=== PATIENT | male | born 1955 | race Caucasian/White ===

== ENCOUNTER 2019-11-25 11:04 | Outpatient (CLI) | payer MEDICARE, MEDICAID, SELFPAY ==
--- NOTE | ~2019-11-25 | CT_ITS ---
EXAMINATION: CT lung screening DATE: 11/25/2019 11:37 INDICATION: Nicotine dependence TECHNIQUE: Computed tomography (CT) of the chest was performed without intravenous contrast. The dose -length product was 112.60 mGy-cm. Automated exposure control and iterative reconstruction technique were employed. COMPARISON: Comparison to multiple prior studies sequentially, with oldest reviewed study dated 10/2016. FINDINGS: There has been progression of interstitial infiltrates of the lower lobes with areas of int erlobular septal thickening. Calcified granulomas clustered in the right lower lobe. There are additi onal areas of interstitial changes peripherally in the upper lobes anteriorly. There is focal parench ymal scarring in the right apex posterior laterally. There is a 3 mm nodule stable in the right upper lobe near the apex. No endobronchial lesions. No thoracic lymphadenopathy. Heart size is normal. The re is atherosclerosis of the aorta and coronary arteries. No significant pleural or pericardial effus ion. IMPRESSION: 1. Lung-RADS category 2: Benign appearance or behavior. Continue annual screening with noncontrast lo w-dose chest CT in 12 months. Reviewed, dictated and finalized at location B. IMPRESSION: 1. Lung-RADS category 2: Benign appearance or behavior. Continue annual screeni ng with noncontrast low-dose chest CT in 12 months.
== END 2019-11-25 11:05 | disposition home or self-care (01) ==
PROVIDERS: PCP Emergency Medicine; Visit Provider Emergency Medicine
DX: F17.210 Nicotine dependence, cigarettes, uncomplicated (principal)
CPT/HCPCS: G0297

== ENCOUNTER 2020-09-14 13:04 | Inpatient (IN) | payer MEDICARE, MEDICAID, SELFPAY ==
[2020-09-14] VITALS (14 sets, daily range): BP systolic 117–161; BP diastolic 58–85; PULSE 45–73; RESP 16–26; TEMP 36.1–36.5; O2SAT 99–100; BMI 25.2
--- NOTE | ~2020-09-14 | CT_ITS ---
EXAMINATION: CT abdomen pelvis wo con EXAM DATE: 09/14/2020 15:16 INDICATION: Abdominal pain, vomiting. Syncope. Symptoms for days. TECHNIQUE: Spiral CT of the abdomen and pelvis was performed without contrast. Axial, coronal and s agittal images of the abdomen and pelvis were reviewed. The dose-length product (DLP) for this exami nation was 546.90 mGy-cm. The exposure was tailored according to patient size (auto mA exposure cont rol), and iterative reconstruction (ASIR) was used as additional dose reduction technique. Comparison is made to prior examination from 08/18/2017. FINDINGS: The liver, spleen, adrenal glands and pancreas are unremarkable. Gallbladder is unremarkab le. No biliary obstruction. There is a left renal cyst measuring 3.7 cm. No nephrolithiasis or hydr onephrosis. Prostate is unremarkable. The bladder is undistended at time of imaging. There is no r etroperitoneal or pelvic lymphadenopathy. There is mild to moderate scattered arteriosclerotic dise ase. The appendix is normal. There is moderate sigmoid colonic diverticulosis. There is no adjacent infla mmatory change to suggest diverticulitis. There is small sliding gastroesophageal hiatal hernia. Th ere is expected amount of colonic stool. No free intraperitoneal gas. The heart is normal in size . There are no pericardial or pleural effusions. The lung bases are unremarkable. There are no ost eoblastic or osteolytic lesions identified. IMPRESSION: 1. No acute intra-abdominal findings. 2. Moderate sigmoid predominant colonic diverticulosis. Reviewed, dictated and finalized at location B.
--- NOTE | ~2020-09-14 | CT_ITS ---
EXAMINATION: CT brain wo con DATE: 09/14/2020 15:16 INDICATION: Syncope TECHNIQUE: Computed tomography (CT) of the head was performed without intravenous contrast. The dose- length product was 605.33 mGy-cm. Automated exposure control and iterative reconstruction technique w ere employed. COMPARISON: CT dated 08/18/2017 FINDINGS: No acute intracranial hemorrhage, infarction, mass or mass effect. No ventriculomegaly or m idline shift. Basilar cisterns are patent. There is intracranial atherosclerosis. There is an atrophi c densely calcified right globe. Paranasal sinuses and mastoids are pneumatized. No depressed skull f ractures. IMPRESSION: 1. No acute intracranial abnormality. Reviewed, dictated and finalized at location A.
--- NOTE | 2020-09-14 13:17 | ECG_ITS ---
Measurements Intervals [place] Rate: 68 P: 62 KS: 155 QRS: -46 QRSD: 114 T: 57 QT: 447 QTc: 478 Interpretive Statements SINUS RHYTHM LEFT AXIS DEVIATION INTRAVENTRICULAR CONDUCTION DELAY BORDERLINE ST ABNORMALITY- ANTEROLAT/INF LEADS BASELINE ARTIFACT- I, II, III, AVR, AVL, AVF, V2-V6 BORDERLINE ECG Electronically Signed On 09-14-2020 17:12:38 CDT by Shar Mendoza D.O.
--- NOTE | 2020-09-14 13:40 | PC.NURSE ---
pt given urinal to provide urine sample
[2020-09-14 13:54] LABS: Basophils Percent Auto 0.1 % (0.2-1.2); Hematocrit 43.6 % (42.0-52.0); Hemoglobin 15.7 g/dL (14.0-18.0); Immature Granulocyte Absolute 0.06 K/mm3 (0.00-0.031); Immature Granulocyte Percent A 0.4 % (0-0.5); Lymphocytes Absolute Auto 1.38 K/mm3 (0.9-3.2); Lymphocytes Percent Auto 9.9 % (18.3-44.2); Mean Corpuscular Hemoglobin 33.6 pg (26-34); Mean Corpuscular Volume 93.4 fl (80-100); Mean Platelet Volume 9.7 fl (7.4-10.4); Monocytes Absolute Auto 2.1 K/mm3 (0.1-0.6); Monocytes Percent Auto 14.6 % (2.6-8.5); Neutrophils Absolute Auto 10.5 K/mm3 (1.3-6.7); Platelet Count Result 299 k/mm3 (150-375); Red Blood Count 4.67 M/mm3 (4.6-6.20); Red Cell Distribution Width 12.7 % (11.5-14.5)
[2020-09-14 14:04] LABS: Add Urine Microscopic? YES; Alanine Aminotransferase 20 U/L (4-50); Albumin Level 4.9 g/dL (3.5-5.1); Alkaline Phosphatase 116 U/L (38-126); Anion Gap 18 mmol/L (8-16); Appearance Urine Cloudy (Clear); Aspartate Amino Transferase 48 U/L (17-59); Bilirubin Urine Negative (Negative); Bilirubin,Total 1.4 mg/dL (0.2-1.3); Blood Urea Nitrogen 43 mg/dL (9-20); Blood Urine Negative (Negative); Calcium 10.4 mg/dL (8.4-10.2); Carbon Dioxide 21 mmol/L (22-30); Chloride 101 mmol/L (98-107); Color Urine Amber (Yellow); Estimated CRCL calculation 24 ml/min; Estimated Glomerular Filt Rate 24; Glucose 147 mg/dL (75-110); Glucose Urine UA 1+ mg/dL (Negative); Ketones Urine Negative (Negative); Leukocyte Esterase Ur 1+ LEU/UL (Negative); Mucus Urine Rare /lpf; Nitrate Urine Negative (Negative); Protein Urine 2+ mg/dL (Negative); RBC Urine 0-2 /hpf (0-2); Sodium 140 mmol/L (137-145); Specific Grav Ur 1.027 (1.001-1.035); Squamous Epithelial Cell Urine Rare /hpf (Few); WBC Urine 0-3 /hpf
--- NOTE | 2020-09-14 14:32 | PC.NURSE ---
Pt had 100 cc emesis, clear liquid with brown specs. Dr Ivy at bedside, aware.
--- NOTE | 2020-09-14 14:44 | ED.GENADULT ---
HPI - General Adult General Chief complaint: Weakness Stated complaint: vomiting Time Seen by Provider: 09/14/20 13:35 Source: patient History of Present Illness HPI narrative: Patient is a 65 y/o male complaining of nausea and vomiting since 3 days ago. He states that he vomited more than 10 times during last 24 hours. He vomits food and liquid. There is no known alleviating or exacerbating factor. He states that these symptoms started after eating some Taco on Sunday. He has some mild abdominal pain, but no diarrhea. He also passed out this morning. states that when he got out of shower this morning, he became unresponsives and was falling down. She caught him before he fell to the ground. Related Data Home Medications Medication Instructions Recorded Confirmed alprazolam 1 mg PO DAILY 09/14/20 09/14/20 aspirin-calcium carbonate [Aspirin 1 tablet PO DAILY 09/14/20 09/14/20 Regimen Linh/Calcium] atorvastatin 40 mg PO DAILY 09/14/20 09/14/20 calcium phos,dibas-vitamin D3 tablet PO 09/14/20 09/14/20 [Vitamin D (with calcium)] carvedilol 3.125 mg PO BID 09/14/20 09/14/20 clopidogrel 75 mg PO DAILY 09/14/20 09/14/20 hydrocodone-acetaminophen 1 tablet PO HS PRN 09/14/20 09/14/20 levothyroxine 88 mcg PO DAILY 09/14/20 09/14/20 lisinopril 10 mg PO DAILY 09/14/20 09/14/20 pantoprazole 20 mg PO QAM 09/14/20 09/14/20 sildenafil 50 mg PO DAILY 09/14/20 09/14/20 Allergies Allergy/AdvReac Type Severity Reaction Status Date / Time propoxyphene Allergy Unknown Unknown Verified 09/14/20 14:56 Review of Systems Constitutional: Constitutional: Denies chills, Denies fever(s), Denies headache(s) and Denies weakness Eyes: Eyes: Denies blurry vision ENT: Denies headache(s) and Denies neck pain Cardiovascular: Cardiovascular: Denies chest pain and Denies dyspnea Respiratory: Respiratory: Denies cough and Denies dyspnea Gastrointestinal: Gastrointestinal: Reports abdominal pain, Denies diarrhea, Reports nausea and Reports vomiting Genitourinary: Genitourinary: Denies hematuria and Denies dysuria Musculoskeletal: Musculoskeletal: Denies back pain and Denies neck pain Neurologic: Reports syncope, Denies headache(s) and Denies weakness [facility] Social History Social History Gender identity (if verbalized by the patient): Male Exam Const: General: no acute distress and well developed Orientation/consciousness: oriented to person, oriented to place, oriented to time and patient oriented x3 HENMT: Head: normocephalic Ears: external ears normal General nose exam: Normal external nose present Eyes: General: appearance normal, both eyes and all related structures Conjunctivae: conjunctivae normal Neck: Neck: normal visual inspection and full ROM Chest: Chest palpation & inspection: normal inspection of the chest and no tenderness Resp: Effort & Inspection: normal respiratory effort Auscultation: clear to auscultation bilaterally Cardio: Rate: regular rate Rhythm: regular rhythm GI: GI Palp: No abdominal tenderness and Yes Soft to palpation Skin: General skin exam: normal color and turgor normal Neuro: General: oriented to person, oriented to place, oriented to time and patient oriented x3 Cognition (Neuro): normal cognition Extrem: General: normal to inspection, full ROM and no pedal edema Psych: Appearance: grossly normal Mental Status: mental status grossly normal Affect: normal affect Course Consultations Consultation #1: Discussed with PRAVIN Daly, who agrees to admit. Date: 09/14/20 Time: 17:48 Vital Signs Vital signs: Vital Signs Temperature 36.5 C 09/14/20 13:12 Pulse Rate 71 09/14/20 13:12 Respiratory Rate 18 09/14/20 13:12 Blood Pressure 135/80 09/14/20 13:12 Pulse Oximetry 100 09/14/20 13:12 Temperature 36.5 C 09/14/20 13:12 Pulse Rate 68 09/14/20 17:01 Respiratory Rate 20 09/14/20 17:01 Blood Pressure 150/
[2020-09-14] MEDS: SODIUM CHLORIDE 0.9% IV 1,000 ML 999 ML IV CONT (15:23)
[2020-09-14] MEDS: ONDANSETRON INJ 4 MG/2 ML VIAL IV PUSH (15:24)
[2020-09-14] MEDS: CYCLOBENZAPRINE HCL 10 MG TABLET PO (16:00)
[2020-09-14] MEDS: METOCLOPRAMIDE HCL INJ 10 MG/2 ML VIAL IV PUSH (17:36)
[2020-09-14] MEDS: POTASSIUM CHLORIDE 20 MEQ TABLET PO (18:14)
--- NOTE | 2020-09-14 18:46 | ADMGEN ---
This patient, Bhanu Álvarez, was admitted to Medical Room 247-. Patient/family oriented to hospital policies and general routines including ID bracelet, bed and alarms, visiting hours, pain management, procedures, bathroom and other care routines, personal items, smoking policy, room service/diet, and visiting hours. Information on how to activate the Rapid Response Team has been discussed. Patient/Family are encouraged to report perceived risks to care and to ask questions if they do not understand what they are told or what they should do.
--- NOTE | 2020-09-14 22:03 | PM.IMHP ---
H&P: HPI History of Present Illness Date/Time: 09/14/20 22:03 Chief Complaint: nausea and vomiting Narrative: 65-year-old male with past medical history of coronary artery disease, hypertension, hypothyroidism and COPD presented to the ER via [facility] due to weakness and nausea vomiting for 4 days. the patient reports that his family was out of town so he went and bought some tacos at a fast food restaurant. Couple of hours after eating tacos several days ago he began having nausea and vomiting . He reports that his 1st couple of episodes of emesis were dark in color. He denies any hematemesis or coffee-ground emesis. He reports some mild generalized abdominal tenderness to palpation but he relates this more to his multiple episodes of vomiting. He denies any diarrhea or constipation. He has had numerous episodes of vomiting and was having dry heaves. He was unable to take his home medications due to his vomiting. The patient was taking a shower this morning and had a syncopal event. She caught him before he fell to the ground. EMS reported that the patient's blood pressure was low when they arrived to the scene. The 10th patient arrived to the ER his blood pressure had normalized after 500 mL of fluid. He denies any fevers or chills. He reports that his nausea improved with Reglan and Zofran. But is now returned. He is requesting something for sleep. Review of Systems Review of Systems: Narrative: 12 systems were reviewed with pertinent positives and negatives per HPI. Except as documented in the HPI, all other systems were reviewed and are negative. [facility] Past Medical History Medical History (Updated 09/14/20 @ 22:12 by Lashawn Murray DO) Anxiety and depression Bladder cancer Continuous tobacco abuse Coronary artery disease Essential hypertension Hepatitis C virus infection resolved after antiviral drug therapy Hyperlipidemia Hypothyroidism Surgical History Surgical History (Updated 09/14/20 @ 22:12 by Lashawn Murray DO) Abnormal cystoscopy x8 History of cardiac catheterization with [address] Gresham Right eye trauma Family History Family History Mother Acute myocardial infarction Leukemia Father Colon cancer Sibling Heart problem Social History Social History Smoking packs per day: 1 Smoking cigarettes per day: 20.0 Years smoked: 58 Smoking pack-years: 58.00 Smoking status: Current every day smoker Tobacco type: cigarettes and cigars Alcohol intake: never Substance use: current Substance use type: marijuana Other substance usage details: daily-smoke Spiritual care concerns: No Meds Home Medications and Allergies Home Medications Medication Instructions Recorded Confirmed Type alprazolam [Xanax] 1 mg PO DAILY 09/14/20 09/14/20 History aspirin-calcium carbonate [Aspirin 1 tablet PO DAILY 09/14/20 09/14/20 History Regimen Linh/Calcium] atorvastatin [Lipitor] 40 mg PO DAILY 09/14/20 09/14/20 History calcium phos,dibas-vitamin D3 50,000 tablet PO DAILY 09/14/20 09/14/20 History [Vitamin D (with calcium)] carvedilol [Coreg] 3.125 mg PO BID 09/14/20 09/14/20 History clopidogrel [Plavix] 75 mg PO DAILY 09/14/20 09/14/20 History hydrocodone-acetaminophen 1 tablet PO HS PRN 09/14/20 09/14/20 History levothyroxine [Synthroid] 88 mcg PO DAILY 09/14/20 09/14/20 History lisinopril [Zestril] 10 mg PO DAILY 09/14/20 09/14/20 History pantoprazole [Protonix] 20 mg PO QAM 09/14/20 09/14/20 History sildenafil 50 mg PO DAILY 09/14/20 09/14/20 History Allergies Allergy/AdvReac Type Severity Reaction Status Date / Time propoxyphene Allergy Intermediate Hives Verified 09/14/20 18:38 Vital Signs Vital Signs - 24 hr 09/14/20 13:12 09/14/20 13:15 09/14/20 14:45 Temperature 97.7 F Pulse Rate 71 73 62 Respiratory Rate 18
[2020-09-14] MEDS: PROMETHAZINE HCL 25 MG/ML AMPUL IM (23:02)
[2020-09-14] MEDS: carvediloL 3.125 MG TABLET PO (23:03)
[2020-09-14] MEDS: SODIUM CHLORIDE 0.9% IV 1,000 ML 100 ML IV CONT (23:04)
[2020-09-15] VITALS (15 sets, daily range): BP systolic 126–166; BP diastolic 60–116; PULSE 44–73; RESP 16–18; TEMP 36–36.8; O2SAT 98–100; BMI 25.2
[2020-09-15 05:39] LABS: Hematocrit 43.2 % (42.0-52.0); Hemoglobin 14.7 g/dL (14.0-18.0); Mean Corpuscular Hemoglobin 33.3 pg (26-34); Mean Corpuscular Volume 97.7 fl (80-100); Mean Platelet Volume 9.7 fl (7.4-10.4); Platelet Count Result 233 k/mm3 (150-375); Red Blood Count 4.42 M/mm3 (4.6-6.20); Red Cell Distribution Width 12.5 % (11.5-14.5); White Blood Count 11.6 K/mm3 (4.5-10.0)
[2020-09-15 05:59] LABS: Albumin Level 4.1 g/dL (3.5-5.1); Anion Gap 14 mmol/L (8-16); Blood Urea Nitrogen 33 mg/dL (9-20); Calcium 9.1 mg/dL (8.4-10.2); Carbon Dioxide 26 mmol/L (22-30); Chloride 101 mmol/L (98-107); Estimated CRCL calculation 45 ml/min; Estimated Glomerular Filt Rate 51; Glucose 128 mg/dL (75-110); Phosphorus 3.5 mg/dL (2.5-4.5); Potassium 3.3 mmol/L (3.4-5.0); Sodium 141 mmol/L (137-145)
[2020-09-15] MEDS: LEVOTHYROXINE SODIUM 88 MCG TABLET PO (06:07)
[2020-09-15 08:26] LABS: Magnesium 2.1 mg/dL (1.6-2.3)
[2020-09-15] MEDS: PANTOPRAZOLE SODIUM IV 40 MG VIAL IV PUSH (09:35)
[2020-09-15] MEDS: ENOXAPARIN 30 MG/0.3 ML SYRINGE SUB-Q (09:35)
[2020-09-15] MEDS: CALCIUM CARBONATE (TUMS) 500 MG (200 MG ELEMENTAL) PO (09:35)
[2020-09-15] MEDS: SODIUM CHLORIDE 0.9% IV 1,000 ML 100 ML IV CONT ×2 (10:15→22:05)
[2020-09-15] MEDS: ASPIRIN 81 MG CHEWABLE TABLET PO (10:16)
[2020-09-15] MEDS: POTASSIUM CHLORIDE 20 MEQ TABLET 40 MEQ PO (10:17)
[2020-09-15] MEDS: CLOPIDOGREL BISULFATE 75 MG TABLET PO (10:17)
[2020-09-15] MEDS: ATORVASTATIN 40 MG TABLET PO (10:17)
--- NOTE | 2020-09-15 12:07 | PCNSR ---
On 09/15/20, the student, Talya Branham, provided care and completed [facility] documentation on this patient. I have reviewed the student's documentation and agree with the findings.
--- NOTE | 2020-09-15 15:55 | PM.IMPN ---
Progress Note: A&P Assessment and Plan (1) DWIGHT (acute kidney injury): Code(s): N17.9 - Acute kidney failure, unspecified Status: Acute Assessment and Plan: patient is a 65-year-old man with a history of coronary artery disease, hypertension, hypothyroidism and COPD presented to the ER via [facility] due to weakness and nausea vomiting for 4 days and prior to arrival he was in the shower when he felt dizzy and was helped out of the shower by his significant other. Patient denies syncopal episode. he came to the ER for further evaluation and workup. Initial vitals showed he was afebrile, non tachycardic, respiratory rate 18, blood pressure 135/80, pulse ox 100% on room air. Initial labs showed leukocytosis at 14,000, elevated neutrophils at 75%. Hypokalemia at 3.0, DWIGHT with Cr 2.7, BUN 43, elevated calcium showing dehydration. UA not suggesting any type of infection. CT head shows no acute intracranial abnormality. CT abdomen pelvis showed no acute intra-abdominal findings. the patient was admitted into the hospital for dehydration DWIGHT and started on IV fluids. Likely due to hypovolemia / dehydration. Will hold the patient's home lisinopril Due to DWIGHT. Monitor urine output closely. Repeat renal function panel in a.m.. (2) Hypokalemia: Code(s): E87.6 - Hypokalemia Status: Acute Assessment and Plan: potassium still low at 3.3, replenished. Will repeat potassium level in a.m.. (3) Syncope: Qualifiers: Syncope type: unspecified Qualified Code(s): R55 - Syncope and collapse Code(s): R55 - Syncope and collapse Status: Acute Assessment and Plan: likely due to hypovolemia. The patient was found to be orthostatic with a blood pressure of 165/68 laying, 160/116 sitting, and dropped to 126/73 when standing. Will continue IV fluid hydration and recheck orthostatics in the morning. (4) Dehydration: Code(s): E86.0 - Dehydration Status: Acute Assessment and Plan: See dwight Time Spent With Patient Time with patient: 25 - 35 minutes Subjective Date/time seen: 09/15/20 15:55 Interval history: Date of service 09/15/2020: the patient is upset because he has not gotten his breakfast yet. He denies any more nausea, vomiting or abdominal pain at this time. He is feeling slightly better but feels fatigued. He states prior to arrival he became dizzy in the shower, denies any syncopal episode at that time, palpitations. He denies any more lightheadedness or dizziness today. Denies any chest pain, shortness of breath, cough, fever, chills, leg swelling, calf pain, or any other symptoms at this time. Review of Systems Review of Systems: All systems reviewed & are unremarkable except as noted in HPI and below Exam Narrative: Exam Narrative: General: 65-year-old man laying flat in bed, watching TV. Appears comfortable. In no acute distress. Skin: No jaundice or cyanosis. Good skin turgor. Neck: Full range of motion. Supple. Respiratory: Lungs are clear to auscultation bilaterally. No bony chest wall tenderness. Cardiovascular: The heart has a regular rate and rhythm without murmur. Lower extremities: No lower extremity edema. Distal pulses are easily palpated. No calf tenderness to palpation. Gastrointestinal: The abdomen is soft, nontender and nondistended with active bowel sounds. Psychiatric: agitated. Neurologic: Moving around in bed without any issues. No focal deficits. Speech is clear. No facial drooping. Objective Data Vital Signs Vital Signs: Vital Signs - 24 hr 09/14/20 16:30 09/14/20 16:46 09/14/20 17:01 Temperature Pulse Rate 66 62 68 Respiratory Rate 23 H 22 H 20 Blood Pressure 117/61 138/71 150/83 H Pulse Oximetry 100 100 100 09/14/20 17:18 09/14/20 17:31 09/14/20 18:01 Temperature Pulse Rate 64 45 L 68 Respiratory Rate 25 H 18 24 H Blood Pressure 161/85 H 160/58 H 132/66
[2020-09-15] MEDS: ACETAMINOPHEN 325 MG TABLET 650 MG PO (22:12)
[2020-09-16] VITALS (9 sets, daily range): BP systolic 134–166; BP diastolic 70–91; PULSE 44–68; RESP 16–18; TEMP 36.3–36.4; O2SAT 98–99
[2020-09-16] MEDS: ONDANSETRON INJ 4 MG/2 ML VIAL IV PUSH (02:43)
[2020-09-16 06:06] LABS: Albumin Level 3.4 g/dL (3.5-5.1); Anion Gap 9 mmol/L (8-16); Blood Urea Nitrogen 18 mg/dL (9-20); Calcium 8.5 mg/dL (8.4-10.2); Carbon Dioxide 23 mmol/L (22-30); Chloride 105 mmol/L (98-107); Estimated CRCL calculation 77 ml/min; Estimated Glomerular Filt Rate > 60; Glucose 109 mg/dL (75-110); Phosphorus 2.6 mg/dL (2.5-4.5); Potassium 3.7 mmol/L (3.4-5.0); Sodium 137 mmol/L (137-145)
[2020-09-16] MEDS: LEVOTHYROXINE SODIUM 88 MCG TABLET PO (06:44)
[2020-09-16] MEDS: CALCIUM CARBONATE (TUMS) 500 MG (200 MG ELEMENTAL) PO (09:41)
[2020-09-16] MEDS: ASPIRIN 81 MG CHEWABLE TABLET PO (09:41)
[2020-09-16] MEDS: ATORVASTATIN 40 MG TABLET PO (09:42)
[2020-09-16] MEDS: PANTOPRAZOLE SODIUM IV 40 MG VIAL IV PUSH (09:42)
[2020-09-16] MEDS: CLOPIDOGREL BISULFATE 75 MG TABLET PO (09:42)
[2020-09-16] MEDS: ENOXAPARIN 30 MG/0.3 ML SYRINGE SUB-Q (09:42)
--- NOTE | 2020-09-16 11:52 | PM.DS ---
DS: Admitting Diagnosis Admitting Diagnosis Admitting Diagnosis: Syncope DS: Discharge Diagnosis Discharge Diagnosis (1) DWIGHT (acute kidney injury): Code(s): N17.9 - Acute kidney failure, unspecified Status: Acute Assessment and Plan: Patient is a 65-year-old man with a history of coronary artery disease, hypertension, hypothyroidism and COPD presented to the ER via [facility] due to weakness and nausea vomiting for 4 days and prior to arrival he was in the shower when he felt dizzy and was helped out of the shower by his significant other. Patient denies syncopal episode. he came to the ER for further evaluation and workup. Initial vitals showed he was afebrile, non tachycardic, respiratory rate 18, blood pressure 135/80, pulse ox 100% on room air. Initial labs showed leukocytosis at 14,000, elevated neutrophils at 75%. Hypokalemia at 3.0, DWIGHT with Cr 2.7, BUN 43, elevated calcium showing dehydration. UA not suggesting any type of infection. CT head shows no acute intracranial abnormality. CT abdomen pelvis showed no acute intra-abdominal findings. the patient was admitted into the hospital for dehydration DWIGHT and started on IV fluids. during the patient's hospitalization his creatinine improved from 2.7 down to normal today at 0.8. He is eating and drinking without any issues at this time. His electrolytes are normal. IV fluids were stopped and he is stable for discharge. The patient has been on telemetry during his hospitalization found to be bradycardic between 45-65. we have held the patient's Coreg during his hospitalization and his heart rate continues to be bradycardic at 49 bpm at this point. I talked to Jennifer Walker NP Cardiology who works with his Cardiology which is Dr. Gresham, who recommended that since the patient is stable at this time, normal lightheaded, dizziness or syncopal episodes, he can be discharged to come to their office for a 7 day Holter monitor to monitor his bradycardia, rule out any arrhythmias and monitor her for any lightheadedness or syncopal episodes. She also agreed to hold his Coreg due to his bradycardia at this time. He will need to follow-up in their office in 2 weeks for his Holter monitor results, and they can decide further Workup/treatment at that time. the patient understands and agrees the plan all questions answered. (2) Hypokalemia: Code(s): E87.6 - Hypokalemia Status: Acute Assessment and Plan: potassium normal. (3) Syncope: Qualifiers: Syncope type: unspecified Qualified Code(s): R55 - Syncope and collapse Code(s): R55 - Syncope and collapse Status: Acute Assessment and Plan: likely due to hypovolemia and orthostatic hypotension. The patient was found to be orthostatic with a blood pressure of 165/68 laying, 160/116 sitting, and dropped to 126/73 when standing. Patient is now feeling better. No lightheadedness, dizziness, syncopal episodes. Orthostatics are better today, but he was asymptomatic. patient will be getting a Holter monitor for 7 days with his electric range preparer for further evaluation of his bradycardia and ensure he is not having any issues of syncope or arrhythmia. (4) Dehydration: Code(s): E86.0 - Dehydration Status: Acute Assessment and Plan: See dwight DS: Summary Hospital Course Hospital Course: See above Time Spent with Patient Time attestation: Total time spent providing and/or coordinating discharge services: 42 Exam Narrative: Exam Narrative: General: 65-year-old man laying flat in bed with a towel wrapped around his head, watching TV. Appears comfortable. In no acute distress. Skin: No jaundice or cyanosis. Good skin turgor. Neck: Full range of motion. Supple. Respiratory: Lungs are clear to auscultation bilaterally. No bony chest wall tenderness. Cardiovascular: The heart has a
== END 2020-09-16 12:46 | disposition home or self-care (01) | DRG 684 ==
LOC: ANHED 18:16 → ANH2MED 18:18
PROVIDERS: Internal Medicine; Admitting Provider Internal Medicine; Emergency Provider Emergency Medicine; PCP Emergency Medicine; Visit Provider Physician Assistant
DX: N17.9 Acute kidney failure, unspecified (principal); E87.6 Hypokalemia; I25.10 Atherosclerotic heart disease of native coronary artery without angina pectoris; E03.9 Hypothyroidism, unspecified; J44.9 Chronic obstructive pulmonary disease, unspecified; I10 Essential (primary) hypertension; I95.1 Orthostatic hypotension; E86.0 Dehydration; F41.8 Other specified anxiety disorders; E78.5 Hyperlipidemia, unspecified; Z85.51 Personal history of malignant neoplasm of bladder; Z86.19 Personal history of other infectious and parasitic diseases; Z95.5 Presence of coronary angioplasty implant and graft; F17.210 Nicotine dependence, cigarettes, uncomplicated
CPT/HCPCS: 36415; 70450; 74176; 80053; 80069; 81001; 83735; 85025; 85027; 93005; 96361; 96374; 96375; 99285; A9270; C9113; J1650; J2405; J2550; J2765; J7030

== ENCOUNTER 2020-11-23 08:39 | Outpatient (CLI) | payer MEDICARE, MEDICAID, SELFPAY ==
--- NOTE | ~2020-11-23 | CT_ITS ---
EXAMINATION: CT lung screening DATE: 11/23/2020 09:09 INDICATION: Personal history of nicotine dependence, current smoker with 55 pack year history TECHNIQUE: Computed tomography (CT) of the chest was performed without intravenous contrast. The dose -length product (DLP) was 114.84 mGy-cm. Automated exposure control and iterative reconstruction tech Desigual were employed. COMPARISON: 11/25/2019 FINDINGS: There is a stable 3 mm nodule in the right upper lobe. Mild emphysema is noted. No new pulm onary nodules are identified. Calcified pulmonary nodules and calcified right hilar and mediastinal l ymph nodes are consistent with old granulomatous disease. Subpleural reticular and groundglass opacit ies with a lower lung zone predominance could reflect chronic interstitial lung disease. There is no pleural effusion or pneumothorax. No pathologically enlarged thoracic lymph nodes are identified. The heart size is normal. Punctate calcifications in an otherwise normal spleen likely represent healed granulomatous disease. IMPRESSION: 1. Lung-RADS category 2: Benign appearance or behavior. Continue annual screening with noncontrast lo w-dose chest CT in 12 months. Reviewed, dictated and finalized at location A. IMPRESSION: 1. Lung-RADS category 2: Benign appearance or behavior. Continue annual screeni ng with noncontrast low-dose chest CT in 12 months.
== END 2020-11-23 08:40 | disposition home or self-care (01) ==
PROVIDERS: PCP Emergency Medicine; Visit Provider Emergency Medicine
DX: Z12.2 Encounter for screening for malignant neoplasm of respiratory organs (principal); Z87.891 Personal history of nicotine dependence
CPT/HCPCS: 71271

== ENCOUNTER 2021-03-17 09:25 | Outpatient (CLI) | payer MEDICARE, MEDICAID, SELFPAY ==
--- NOTE | ~2021-03-17 | CT_ITS ---
EXAMINATION: CT lung screening DATE: 03/17/2021 09:59 INDICATION: HX OF NICOTINE DEPENDENCE TECHNIQUE: Computed tomography (CT) of the chest was performed without intravenous contrast. Addition al 3D reconstructions utilizing coronal maximum intensity projection (MIP) were performed. Automated exposure control and iterative reconstruction technique were employed. The dose-length product was 13 9.65 mGy-cm. COMPARISON: 11/23/2020 FINDINGS: A few scattered small bilateral calcified pulmonary nodules which along with calcified right hilar an d mediastinal lymph nodes and multiple splenic calcification consistent with old granulomatous diseas e. No significant change in a few scattered tiny noncalcified pulmonary nodules, the largest measurin g 3 mm in the right upper lobe and the remainder 2 mm or smaller. Again seen are chronic peripheral r egions of irregular septal line thickening in the bilateral lower lobes and anterior left upper lobe and lingula which have demonstrated gradual progression since 05/17/2016 consistent with chronic inters titial lung disease. No new or enlarging pulmonary nodules, pneumonia, pulmonary edema or pleural eff usion. Heart size is normal. Atherosclerotic coronary artery calcific lesions and likely coronary art natalia stenting. No pericardial effusion. Thoracic aorta is normal in caliber. No pathologically enlarge d thoracic lymphadenopathy. Severe spondylosis at the cervicothoracic junction. IMPRESSION: 1. Lung-RADS category 2: Benign appearance or behavior. Continue annual screening with noncontrast lo w-dose chest CT in 12 months. Reviewed, dictated and finalized at location B. HAND IMPRESSION: 1. Lung-RADS category 2: Benign appearance or behavior. Continue annual screeni ng with noncontrast low-dose chest CT in 12 months.
== END 2021-03-17 09:26 | disposition home or self-care (01) ==
PROVIDERS: PCP Emergency Medicine; Visit Provider Emergency Medicine
DX: Z12.2 Encounter for screening for malignant neoplasm of respiratory organs (principal); Z87.891 Personal history of nicotine dependence
CPT/HCPCS: 71271

== ENCOUNTER 2021-05-03 09:15 | Emergency (ER) | payer MEDICARE, MEDICAID, SELFPAY ==
--- NOTE | ~2021-05-03 | CT_ITS ---
EXAMINATION: CT abdomen pelvis w con DATE: 05/03/2021 10:58 INDICATION: Left lower quadrant abdominal pain. Nausea and vomiting. TECHNIQUE: Computed tomography (CT) of the abdomen and pelvis was performed with 100 cc Omnipaque 350 intravenous contrast. The dose-length product was 362.16 mGy-cm. Automated exposure control and iter ative reconstruction technique were employed. COMPARISON: CT dated 09/14/2020 FINDINGS: Bibasilar dependent atelectasis. Heart size normal. There is thickening of the distal esoph alba, suspicious for esophagitis. Heart size is normal. No significant pleural or pericardial effusio n. There are calcified granulomas of the spleen. Small subcentimeter hypodensity left hepatic lobe, m ost likely benign. The adrenal glands and right kidney are unremarkable. There is a left renal cyst m easuring 3.8 cm. There are bilateral internal ureteral stents. No significant hydronephrosis. Bladder is decompressed, although there is some bladder wall thickening with subtle perivesical infiltration . Colonic diverticulosis without evidence for diverticulitis. Nonobstructive bowel gas pattern. There is osteoarthritis of the hips. Mild lumbar spondylosis. IMPRESSION: 1. Bladder wall thickening with subtle perivesical fatty infiltration, suspicious for cystitis. Reviewed, dictated and finalized at location B. T MAKER IMPRESSION: 1. Bladder wall thickening with subtle perivesical fatty infiltration, suspicio us for cystitis.
[2021-05-03 09:19] VITALS: BP 99/77; PULSE 65; RESP 22; TEMP 36.7; O2SAT 98
--- NOTE | 2021-05-03 09:54 | PC.NURSE ---
pt. states that he was having back pain earlier today but has moved to stomach spasms. vomiting has resolved since given zofran by ems. pt. states that he has vomited 12x today. no blood noted in vomit
--- NOTE | 2021-05-03 10:00 | ED.NAVMDI ---
HPI - Nausea/Vomiting/Diarrhea General Chief complaint: Nausea/Vomiting/Diarrhea Stated complaint: doesn't feel well Time Seen by Provider: 05/03/21 09:47 Source: patient Mode of arrival: EMS Limitations: no limitations History of Present Illness HPI Narrative: 66-year-old male presents with nausea vomiting diarrhea x1 day. Patient states he had a cancerous tumor removed from his bladder on Sunday [facility]. Patient states he started having nausea vomiting diarrhea yesterday. Patient denies fevers. Patient states his diarrhea is clear. Patient also complaining of a dry mouth. Patient denies any history of abdominal issues. Patient also states he self removed indwelling catheter on Sunday with no difficulties. Patient states the symptoms started shortly after that. Patient denies any recent antibiotic use. MD elicited complaint: nausea, vomiting, diarrhea and abdominal pain Onset (ago): day(s) (1) Description of vomiting: food contents Description of diarrhea: watery Associated nausea: Yes Associated abdominal pain: Yes Location of pain: LLQ Pain consistency: intermittent Quality: cramping Exacerbating factors: none Relieving factors: none Related Data Home Medications Medication Instructions Recorded Confirmed alprazolam [Xanax] 1 mg PO DAILY PRN 09/14/20 09/14/20 aspirin-calcium carbonate 1 tablet PO DAILY 09/14/20 09/14/20 atorvastatin [Lipitor] 40 mg PO DAILY 09/14/20 09/14/20 calcium phos,dibas-vitamin D3 50,000 tablet PO WEEKLY 09/14/20 09/15/20 carvedilol [Coreg] 3.125 mg PO BID 09/14/20 09/14/20 clopidogrel [Plavix] 75 mg PO DAILY 09/14/20 09/14/20 hydrocodone-acetaminophen 1 tablet PO HS PRN 09/14/20 09/14/20 levothyroxine [Synthroid] 88 mcg PO DAILY 09/14/20 09/14/20 lisinopril [Zestril] 10 mg PO DAILY 09/14/20 09/14/20 pantoprazole [Protonix] 20 mg PO QAM 09/14/20 09/14/20 sildenafil 50 mg PO DAILY 09/14/20 09/14/20 albuterol sulfate 2 puff INHALATION QID PRN 05/03/21 nitroglycerin 0.4 mg SUBLINGUAL Q5-15M PRN 05/03/21 umeclidinium [Incruse Ellipta] 1 inh INHALATION DAILY 05/03/21 Allergies Allergy/AdvReac Type Severity Reaction Status Date / Time propoxyphene Allergy Intermediate Hives Verified 09/14/20 18:38 Review of Systems Review of Systems: All systems reviewed & are unremarkable except as noted in HPI and below Constitutional: Constitutional: Reports fatigue Eyes: Eyes: Reports no additional eye complaints ENT: Reports system reviewed and no additional complaints, except as documented Cardiovascular: Cardiovascular: Reports no additional cardiovascular complaints Respiratory: Respiratory: Reports no additional respiratory complaints Gastrointestinal: Gastrointestinal: Reports abdominal pain, Reports diarrhea, Reports nausea and Reports vomiting Genitourinary: Genitourinary: Reports no additional male genitourinary complaints Musculoskeletal: Musculoskeletal: Reports no additional musculoskeletal complaints Integumentary/Breasts: Skin/Breast: Reports system reviewed and no additional complaints, except as docu Neurologic: Reports system reviewed and no additional complaints, except as documented Psychiatric: Psychiatric: Reports no additional psychiatric complaints Endocrine: Endocrine: Reports no additional endocrine complaints Hematologic/Lymphatic: Hematologic/Lymphatic: Reports no additional hematologic/lymphatic complaints Allergic/Immunologic: Allergic/Immunologic: Reports no additional allergic/immunologic complaints [facility] Past Medical History Medical History (Updated 05/03/21 @ 12:55 by Jalen Medrano APRN) Anxiety and depression Bladder cancer Continuous tobacco abuse Coronary artery disease Essential hypertension Hepatitis C virus infection resolved after antiviral drug therapy Hyperlipidemia Hypothyroidism Surgical History Surgical History (Updated 09/14/20 @ 22:12 by Lashawn Murray DO) Abnormal cystoscopy x8 History of cardiac catheterization
[2021-05-03 10:18] LABS: Basophils Percent Auto 0.2 % (0.2-1.2); Hematocrit 43.6 % (42.0-52.0); Hemoglobin 15.5 g/dL (14.0-18.0); Immature Granulocyte Absolute 0.06 K/mm3 (0.00-0.031); Immature Granulocyte Percent A 0.5 % (0-0.5); Lymphocytes Absolute Auto 1.26 K/mm3 (0.9-3.2); Lymphocytes Percent Auto 10.6 % (18.3-44.2); Mean Corpuscular HGB Conc 35.6 g/dl (32-36); Mean Corpuscular Hemoglobin 33.8 pg (26-34); Mean Platelet Volume 10.4 fl (7.4-10.4); Monocytes Absolute Auto 1.8 K/mm3 (0.1-0.6); Monocytes Percent Auto 14.8 % (2.6-8.5); Neutrophils Absolute Auto 8.8 K/mm3 (1.3-6.7); Neutrophils Percent Auto 73.9 % (45.5-73.1); Platelet Count Result 263 k/mm3 (150-375); Red Blood Count 4.59 M/mm3 (4.6-6.20); Red Cell Distribution Width 12.3 % (11.5-14.5); White Blood Count 11.9 K/mm3 (4.5-10.0)
[2021-05-03] MEDS: ONDANSETRON INJ 4 MG/2 ML VIAL IV PUSH (10:19)
[2021-05-03] MEDS: SODIUM CHLORIDE 0.9% IV 1,000 ML 999 ML IV CONT (10:20)
[2021-05-03 10:33] LABS: Alanine Aminotransferase 19 U/L (4-50); Albumin Level 4.8 g/dL (3.5-5.1); Alkaline Phosphatase 82 U/L (38-126); Anion Gap 14 mmol/L (8-16); Aspartate Amino Transferase 34 U/L (17-59); Blood Urea Nitrogen 47 mg/dL (9-20); Calcium 9.9 mg/dL (8.4-10.2); Carbon Dioxide 22 mmol/L (22-30); Chloride 101 mmol/L (98-107); Estimated Glomerular Filt Rate 43; Glucose 128 mg/dL (65-110); Lipase 40 U/L (23-300); Potassium 3.3 mmol/L (3.4-5.0); Sodium 137 mmol/L (137-145)
[2021-05-03 11:29] LABS: Add Urine Microscopic? YES; Appearance Urine Cloudy (Clear); Bilirubin Urine Negative (Negative); Blood Urine 3+ (Negative); Color Urine Red (Yellow); Glucose Urine UA 1+ mg/dL (Negative); Ketones Urine Negative (Negative); Leukocyte Esterase Ur 1+ LEU/UL (Negative); Mucus Urine Heavy /lpf; Nitrate Urine Negative (Negative); Protein Urine 2+ mg/dL (Negative); RBC Urine >75 /hpf (0-2); Specific Grav Ur 1.028 (1.001-1.035); Urobilinogen Urine Negative mg/dL (<2.0); WBC Urine >75 /hpf
[2021-05-03 12:15] VITALS: BP 151/75; PULSE 58; RESP 26; O2SAT 99
[2021-05-03] MEDS: METOCLOPRAMIDE HCL INJ 10 MG/2 ML VIAL IV PUSH (12:19)
[2021-05-03 13:12] VITALS: BP 132/68; PULSE 78; RESP 20; O2SAT 98
== END 2021-05-03 13:10 | disposition home or self-care (01) ==
PROVIDERS: Emergency Provider Nurse Practitioner Family; PCP Emergency Medicine
DX: K52.9 Noninfective gastroenteritis and colitis, unspecified (principal); N39.0 Urinary tract infection, site not specified; B96.89 Other specified bacterial agents as the cause of diseases classified elsewhere; N17.9 Acute kidney failure, unspecified; C67.9 Malignant neoplasm of bladder, unspecified; I10 Essential (primary) hypertension; I25.10 Atherosclerotic heart disease of native coronary artery without angina pectoris; E78.5 Hyperlipidemia, unspecified; E03.9 Hypothyroidism, unspecified; F41.9 Anxiety disorder, unspecified; F32.A Depression, unspecified; Z86.19 Personal history of other infectious and parasitic diseases; Z79.02 Long term (current) use of antithrombotics/antiplatelets; Z95.5 Presence of coronary angioplasty implant and graft; F17.210 Nicotine dependence, cigarettes, uncomplicated; F17.290 Nicotine dependence, other tobacco product, uncomplicated
CPT/HCPCS: 36415; 74177; 80053; 81001; 83690; 85025; 87086; 87088; 96361; 96374; 96375; 99284; J2405; J2765; J7030; Q9967

== ENCOUNTER 2022-03-28 07:50 | Outpatient (CLI) | payer MEDICARE, MEDICAID, SELFPAY ==
--- NOTE | ~2022-03-28 | CT_ITS ---
EXAMINATION:CT lung screening DATE: 03/28/2022 08:20 INDICATION: Personal history of nicotine dependence. Current smoker with 53 pack year history. TECHNIQUE: Computed tomography (CT) of the chest was performed without intravenous contrast. Automate d exposure control and iterative reconstruction technique were employed. The dose-length product (DLP ) was 171.43 mGy-cm. COMPARISON: Chest CT 03/17/2021 FINDINGS: There is stable mild scarring at the lung apices. There is widespread chronic peripheral se ptal thickening in the lungs bilaterally. Calcified right lung nodules and calcified right hilar and mediastinal lymph nodes are consistent with old granulomatous disease. No pleural effusion. The heart size is normal. There are coronary artery calcifications. No pericardial effusion. There is mild yuriy ateral gynecomastia. Calcifications in the spleen are consistent with old granulomatous disease. Ther e is a 9 mm cyst in the liver. Partially visualized is a 4.1 cm cyst in left kidney. There is mild th oracic spondylosis. IMPRESSION: 1. Lung-RADS category 2: Benign appearance or behavior. Continue annual screening with noncontrast lo w-dose chest CT in 12 months. Reviewed, dictated and finalized at location A. RTISEMENT DISTRIBUTOR IMPRESSION: 1. Lung-RADS category 2: Benign appearance or behavior. Continue annual screeni ng with noncontrast low-dose chest CT in 12 months.
== END 2022-03-28 07:51 | disposition home or self-care (01) ==
PROVIDERS: PCP Emergency Medicine; Visit Provider Emergency Medicine
DX: Z12.2 Encounter for screening for malignant neoplasm of respiratory organs (principal); Z87.891 Personal history of nicotine dependence
CPT/HCPCS: 71271

== ENCOUNTER 2022-07-28 08:03 | Observation (INO) | payer MEDICARE, MEDICAID, SELFPAY ==
[2022-07-28] VITALS (31 sets, daily range): BP systolic 80–171; BP diastolic 56–145; PULSE 47–95; RESP 11–30; TEMP 36.5–36.7; O2SAT 97–100; BMI 22.1
--- NOTE | ~2022-07-28 | CT_ITS ---
EXAMINATION: CTA chest PE abdomen pel DATE: 07/28/2022 09:23 INDICATION: Dyspnea. Chest pain. Hemoptysis. TECHNIQUE: Computed tomography angiography (CTA) of the chest was performed with 100 mL Omnipaque-350 intravenous contrast timed to evaluate the pulmonary arteries. Coronal maximum intensity projection 3D-reconstructions were created by the technologist. Computed tomography (CT) of the abdomen and pelv is was performed with intravenous contrast. Automated exposure control and iterative reconstruction t echnique were employed. The dose-length product was 654.78 mGy-cm. COMPARISON: Chest CT 03/28/2022 FINDINGS: CTA chest: There is chronic peripheral septal thickening in the lungs. No bronchiectasis or honeycomb ing. Calcified right lung nodules and calcified right hilar lymph nodes are consistent with old granu lomatous disease. There is mild scarring at right lung apex. No pleural effusion. The heart size is n ormal. There are coronary artery calcifications. There is no pulmonary embolus. CT abdomen and pelvis: There is a 9 mm cyst in the liver. The gallbladder is normal. Calcifications i n the spleen are consistent with old granulomatous disease. The pancreas, adrenal glands, and right k idney are normal. There are cysts in left kidney measuring up to 4.5 cm. There is a small left inguin al hernia containing fat. The prostate is mildly enlarged. There is diverticulosis of the colon witho ut evidence of diverticulitis. The appendix is normal. There is calcified atherosclerosis of the aort a and many of the other arteries. There are no pathologically enlarged lymph nodes. There is no free intraperitoneal fluid. There is mild thoracic spondylosis. IMPRESSION: 1. No pulmonary embolus. 2. Stable chronic interstitial lung disease in a pattern of usual interstitial pneumonia (UIP). 3. Small left inguinal hernia containing fat. Reviewed, dictated and finalized at location A.
--- NOTE | ~2022-07-28 | XR_ITS ---
EXAMINATION: XR chest 2V 07/28/2022 08:56 INDICATION: Chest pain and nausea PROCEDURE: 2 view chest COMPARISON: 08/18/2017 FINDINGS: The lungs are clear. The cardiomediastinal silhouette is within normal limits. There are no pleural effusions. There is no pneumothorax suspected. There are calcified granulomas in the rig ht lung base. The lungs are hyperinflated which is consistent with, but not diagnostic of chronic obs tructive pulmonary disease. IMPRESSION: 1: NO ACUTE CARDIOPULMONARY DISEASE. Reviewed, dictated and finalized at location B.
--- NOTE | 2022-07-28 08:05 | ECG_ITS ---
Measurements Intervals Curtis Rate: 58 P: 71 MS: 172 QRS: -8 QRSD: 114 T: 56 QT: 479 QTc: 474 Interpretive Statements SINUS BRADYCARDIA INCOMPLETE RIGHT BUNDLE BRANCH BLOCK PROLONGED QT INTERVAL BASELINE WANDER- I, II, III, V3-V6 ABNORMAL ECG COMPARED TO ECG 09/14/2020 13:20:24 SINUS BRADYCARDIA NOW PRESENT PROLONGED QT INTERVAL NOW PRESENT Electronically Signed On 07-28-2022 8:35:31 CDT by Shar Mendoza D.O.
[2022-07-28 08:51] LABS: Basophils Percent Auto 0.2 % (0.2-1.2); Hematocrit 43.6 % (42.0-52.0); Hemoglobin 15.4 g/dL (14.0-18.0); Immature Granulocyte Absolute 0.04 K/mm3 (0.00-0.031); Immature Granulocyte Percent A 0.3 % (0-0.5); Lymphocytes Absolute Auto 1.81 K/mm3 (0.9-3.2); Lymphocytes Percent Auto 14.2 % (18.3-44.2); Mean Corpuscular HGB Conc 35.3 g/dl (32-36); Mean Corpuscular Hemoglobin 33.8 pg (26-34); Mean Corpuscular Volume 95.6 fl (80-100); Mean Platelet Volume 10.4 fl (7.4-10.4); Monocytes Absolute Auto 1.6 K/mm3 (0.1-0.6); Monocytes Percent Auto 12.7 % (2.6-8.5); Neutrophils Absolute Auto 9.3 K/mm3 (1.3-6.7); Neutrophils Percent Auto 72.6 % (45.5-73.1); Platelet Count Result 277 k/mm3 (150-375); Red Blood Count 4.56 M/mm3 (4.6-6.20); Red Cell Distribution Width 12.2 % (11.5-14.5); White Blood Count 12.8 K/mm3 (4.5-10.0)
[2022-07-28 09:03] LABS: Alanine Aminotransferase 29 U/L (6-50); Alkaline Phosphatase 103 U/L (38-126); Anion Gap 12 mmol/L (8-16); Aspartate Amino Transferase 35 U/L (17-59); Bilirubin,Total 1.3 mg/dL (0.2-1.3); Blood Urea Nitrogen 39 mg/dL (9-20); Calcium 9.5 mg/dL (8.4-10.2); Carbon Dioxide 32 mmol/L (22-30); Chloride 93 mmol/L (98-107); Estimated CRCL calculation 46 ml/min; Estimated Glomerular Filt Rate > 60; Glucose 143 mg/dL (65-110); Lipase 80 U/L (23-300); Potassium 3.1 mmol/L (3.4-5.0); Sodium 137 mmol/L (137-145)
[2022-07-28 09:04] LABS: Prothrombin Time 13.6 Seconds (11.1-14.7)
--- NOTE | 2022-07-28 09:13 | ED.CHESTPAIN ---
HPI - Chest Pain General Chief Complaint: Chest Pain Stated Complaint: chest pain Time Seen by Provider: 07/28/22 08:56 History of Present Illness HPI narrative: 67-year-old male with a history of CAD status post stenting here due to chest pain and shortness of breath x4 days. Patient states his pain is substernal in nature on the left side of his chest and radiates into his left arm occasionally. Denies any obvious triggers, comes on when he is at rest. Similar presentation when he required stenting about [address] Gresham. He is also felt short of breath at rest and on minimal exertion. Has been nauseated and vomiting as well, had one episode of blood tinged emesis sunday which he attributes to wretching and is not uncommon for him. 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 Related Data Home Medications Medication Instructions Recorded Confirmed alprazolam 1 mg tablet (Xanax) 1 mg PO DAILY PRN Anxiety 09/14/20 09/14/20 aspirin-calcium carbonate 81 1 tablet PO DAILY 09/14/20 09/14/20 mg-300 mg (750 mg) tablet atorvastatin 40 mg tablet (Lipitor) 40 mg PO DAILY 09/14/20 09/14/20 calcium phosphate,dibasic 77 50,000 tablet PO WEEKLY 09/14/20 09/15/20 mg-vitamin D3 400 unit tablet carvedilol 3.125 mg tablet (Coreg) 3.125 mg PO BID 09/14/20 09/14/20 clopidogrel 75 mg tablet (Plavix) 75 mg PO DAILY 09/14/20 09/14/20 hydrocodone 10 mg-acetaminophen 1 tablet PO HS PRN Pain 09/14/20 09/14/20 325 mg tablet levothyroxine 88 mcg tablet 88 mcg PO DAILY 09/14/20 09/14/20 (Synthroid) lisinopril 10 mg tablet (Zestril) 10 mg PO DAILY 09/14/20 09/14/20 pantoprazole 20 mg tablet,delayed 20 mg PO QAM 09/14/20 09/14/20 release (Protonix) sildenafil 50 mg tablet 50 mg PO DAILY 09/14/20 09/14/20 albuterol sulfate 90 mcg/actuation 2 puff inhalation QID PRN 05/03/21 aerosol inhaler Shortness Of Breath nitroglycerin 0.4 mg sublingual 0.4 mg sublingual Q5-15M PRN Chest 05/03/21 tablet Pain umeclidinium 62.5 mcg/actuation 1 inh inhalation DAILY 05/03/21 blister powder for inhalation (Incruse Ellipta) Allergies Allergy/AdvReac Type Severity Reaction Status Date / Time propoxyphene Allergy Intermediate Hives Verified 07/28/22 08:14 Review of Systems Review of Systems: Gen.: Denies fevers or chills Eyes: Denies eye pain or visual change ENT: Denies congestion Respiratory: Reports shortness of breath CV: Reports chest pain GI: Denies abdominal pain nausea, emesis or diarrhea denies burning, urgency, frequency or hematuria Musculoskeletal: Denies back pain or muscle pain Neuro: Denies numbness, tingling, weakness or focal weakness Skin: Denies rash Except as documented, all other systems reviewed and negative PMFSH Past Medical History Medical History Anxiety and depression Bladder cancer Continuous tobacco abuse Coronary artery disease Essential hypertension Hepatitis C virus infection resolved after antiviral drug therapy Hyperlipidemia Hypothyroidism Surgical History Surgical History Abnormal cystoscopy x8 History of cardiac catheterization with [address] Gresham Right eye trauma Family History Family History Mother Acute myocardial infarction Leukemia Father Colon cancer Sibling Heart problem Social History Social History Smoking packs per day: 1 Smoking cigarettes per day: 20.0 Years smoked: 58 Smoking pack-years: 58.00 Smoking status: Current every day smoker Tobacco type: cigarettes and cigars Alcohol intake: never Substance use: current Substance use type: marijuana Other substance usage details: daily-smoke Spiritual car
[2022-07-28 09:14] LABS: Troponin I < 0.012 ng/mL (0.000-0.034)
[2022-07-28] MEDS: LEVALBUTEROL NEB 1.25 MG/3 ML INHALATION (09:33)
[2022-07-28] MEDS: IPRATROPIUM BR 0.02% INH SOLN 0.5 MG/2.5 ML VIAL INHALATION (09:33)
[2022-07-28 09:36] LABS: Alveolar/Arterial O2 Gradient 27.9 mmHg; Base Excess ABG 4.4 mEq/l (+/-2.0); Fractional Inspired Oxygen 21 %; HCO3 ABG 21.3 mEq/l (22.0-26.0); Oxygen Content ABG 19.1 %vol (16.0-22.0); Oxygen Saturation ABG 98.8 % (95.0-100.0); Oxyhemoglobin 96.7 % THb (90.0-100.0); PO2 ABG 101.8 mmHg (80.0-100.0); PO2 FiO2 Ratio Arterial Blood 4.85 %
[2022-07-28 09:42] LABS: Device ROOM AIR; Modified Allen's Test Pass; PCO2 ABG 16.7 mmHg (35.0-45.0); Site Drawn RIGHT RADIAL
[2022-07-28 09:43] LABS: pH ABG 7.724 (7.350-7.450)
[2022-07-28] MEDS: fentaNYL CITRATE INJ (*CRX) 100 MCG/2 ML VIAL 50 MCG IV PUSH ×2 (10:16→13:24)
[2022-07-28 10:21] LABS: Magnesium 2.3 mg/dL (1.6-2.3)
[2022-07-28 10:31] LABS: NT Pro B Type Natriuretic Pept 141 pg/mL (19.9-100)
[2022-07-28] MEDS: POTASSIUM CHLORIDE 20 MEQ TABLET 40 MEQ PO (10:40)
[2022-07-28] MEDS: SODIUM CHLORIDE 0.9% IV 1,000 ML 999 ML IV CONT (10:41)
[2022-07-28] MEDS: PANTOPRAZOLE SODIUM IV 40 MG VIAL 80 MG IV PUSH ×2 (10:41→10:42)
[2022-07-28 11:55] LABS: Alveolar/Arterial O2 Gradient 17.1 mmHg; Base Excess ABG 4.4 mEq/l (+/-2.0); Fractional Inspired Oxygen 21 %; HCO3 ABG 26.1 mEq/l (22.0-26.0); Oxygen Content ABG 18.7 %vol (16.0-22.0); Oxygen Saturation ABG 98.1 % (95.0-100.0); Oxyhemoglobin 96.1 % THb (90.0-100.0); PCO2 ABG 30.6 mmHg (35.0-45.0); PO2 FiO2 Ratio Arterial Blood 4.57 %; Total Hemoglobin 13.8 g/dL (12.0-18.0)
[2022-07-28 11:56] LABS: Device ROOM AIR; Modified Allen's Test Pass; Site Drawn RIGHT RADIAL; pH ABG 7.549 (7.350-7.450)
[2022-07-28 12:23] LABS: Troponin I < 0.012 ng/mL (0.000-0.034)
--- NOTE | 2022-07-28 15:14 | PM.IMHP ---
H&P: HPI History of Present Illness Date/Time: 07/28/22 16:00 Chief Complaint: Chest pain. Narrative: This is a 67-year-old male smoker with coronary artery disease, hypertension, hypothyroidism, COPD, GERD, and remote history of peptic ulcers who presented to the emergency department via EMS from home for evaluation of chest pain. Over the last 4 days or so he endorses increasing episodes of substernal chest pressure occasionally radiating to the left anterior chest and rarely into the arm associated with shortness of breath. The symptoms seemed to last for a few minutes and can resolve without intervention, resting, or even sometimes when taking a hot shower. It is not necessarily related to exertion. The discomfort is similar to when he had a STEMI in 2012 however the symptoms are not nearly as intense. His EKG today did not show any significant ST elevation or depression his initial troponin has been well within normal limits. Due to his cardiac history he is being admitted overnight for close monitoring and Cardiology consultation. At the time my evaluation he is resting in bed and suddenly he sat up and he had a coughing jag which lasted about 1 minute. Afterwards he told me that it felt as though he was having acid, up his throat which caused him to cough. This is been ongoing for quite some time however he cannot qualify if that has been days, weeks, or months. He has had some nausea and reports a couple of episodes of emesis following these coughing jags. It sounds like he had 1 episode of hematemesis a couple of days ago. He also endorses some bloating, belching, and hiccuping. He is on dual anti-platelet therapy and reports having stress ?all of the time.? He does not consume alcohol, denies significant caffeine use, and he has not taken NSAIDs for many years. He denies melena and hematochezia. Review of Systems Review of Systems: Twelve systems were reviewed and are negative except for as per HPI. [facility], [facility] Past Medical History Medical History Anxiety and depression Bladder cancer Chronic obstructive pulmonary disease Continuous tobacco abuse Coronary artery disease Essential hypertension Gastroesophageal reflux disease Hepatitis C virus infection resolved after antiviral drug therapy Hyperlipidemia Hypothyroidism Restless leg syndrome ST elevation myocardial infarction (STEMI) (07/2012) Surgical History Surgical History Abnormal cystoscopy x8 History of cardiac catheterization (08/01/12) Aspiration thrombectomy, PTCA, stent x2 in overlapping fashion in major diagonal branch. Per Dr. Gresham. History of cystoscopy Right eye trauma Family History Family History Mother Acute myocardial infarction Leukemia Father Colon cancer Sibling Heart problem Social History Social History Social History: Surrogate medical decision maker: Jodeecristian Álvarez, spouse. Code status: Full code. Smoking packs per day: 1 Smoking cigarettes per day: 20.0 Years smoked: 60 Smoking pack-years: 60.00 Smoking status: Current every day smoker Tobacco type: cigarettes Alcohol intake: never Substance use: current Substance use type: marijuana Other substance usage details: daily-smoke Lack of Transportation: No Lack of Food: Never True Current Housing: I Have Housing Concerned About Future Housing: No Difficulty Paying Gas/Electric Bills: No Difficulty Paying for Meds: No Currently Unemployed: No Education: High School Diploma/GED Difficulty w/ Childcare or Family Care: No Spiritual care concerns: No Meds Home Medications and Allergies Home Medications Medication Instructions Recorded Confirmed Type alprazolam 1 mg tablet (Xanax) 1
[2022-07-28 15:17] LABS: Troponin I < 0.012 ng/mL (0.000-0.034)
[2022-07-28] MEDS: NITROGLYCERIN SL 0.4 MG TABLET SUBLINGUAL (15:39)
--- NOTE | 2022-07-28 15:50 | PC.NURSE ---
Pt states he is going to leave hospital as he cant get comfortable and is cold. pt c/o chronic back pain and is moaning and cursing in room. Pt was given nitro to help relieve pain and hospitalist was contacted regarding pt complaints. Pt is stating he is uncomfortable and is being difficult to redirect. Pt is unhappy with waiting for a room.
--- NOTE | 2022-07-28 18:04 | PM.CNCAR ---
Assessment and Plan Assessment and plan (1) Coronary artery disease: Code(s): I25.10 - Atherosclerotic heart disease of [place] coronary artery without angina pectoris Status: Acute Assessment and Plan: His atypical chest pain. Not clear that this is cardiac in etiology. Continue dual antiplatelet, atorvastatin, carvedilol, lisinopril. 2D echocardiogram Doppler will be ordered and reviewed (2) Atypical chest pain: Code(s): R07.89 - Other chest pain Status: Acute Assessment and Plan: Rule out myocardial infarction serial cardiac enzymes. At minimum needs ischemic evaluation with a stress test but this could be performed as an outpatient (3) Hematemesis: Code(s): K92.0 - Hematemesis Status: Acute Assessment and Plan: Recommend GI evaluation and consultation as he likely needs upper scope. Does have a history of peptic ulcer disease (4) Gastroesophageal reflux disease: Code(s): K21.9 - Gastro-esophageal reflux disease without esophagitis Status: Acute Assessment and Plan: Continue pantoprazole (5) Chronic obstructive pulmonary disease: Code(s): J44.9 - Chronic obstructive pulmonary disease, unspecified Status: Acute Assessment and Plan: Tobacco cessation counseling recommended and performed (6) Essential hypertension: Code(s): I10 - Essential (primary) hypertension Status: Acute Assessment and Plan: Continue lisinopril and carvedilol History of Present Illness History of Present Illness Consult date/time: 07/28/22 18:04 Requesting physician: Josselin Holly PA-C Consult reason: chest pain Reason For Visit: Chest Pain Narrative: Date of service 07/28/2022 Reason for consultation: Chest pain, coronary disease Requesting provider: Josselin Holly History: Patient is a 67-year-old male who has a history of coronary disease. Had anterolateral ST-elevation myocardial infarction status post drug-eluting stents x2 to diagonal branch in 08/01/2012. Stage PCI to the RCA in August of 2012. He also has dyslipidemia erectile dysfunction history of bladder cancer and tobacco abuse. He has been having some intermittent chest pains over the past year or so. Chest pain has been generally nonexertional although he still states that he does not exert himself very much. He also has shortness of breath. Has had some pedal edema also. Pressure occurs usually lasting for a few minutes and is better with his chest pressure is worsened if he lays on his right side or left side better V systems back or takes a hot shower. He does state that it feels similar to his pain he had at times heart attack but not nearly as bad. He denies any syncope but does have some presyncope upon standing. No palpitations. He did have hematemesis a couple of days ago. Review of Systems Review of Systems: All systems reviewed & are unremarkable except as noted in HPI and below Constitutional: Constitutional: Denies body ache(s) Eyes: Eyes: Denies blurry vision ENT: Reports Normal hearing present Cardiovascular: Cardiovascular: Reports chest pain and Reports pedal edema Respiratory: Respiratory: Denies dyspnea Gastrointestinal: Gastrointestinal: Reports abdominal pain and Reports hematemesis Genitourinary: Genitourinary: Denies hematuria Musculoskeletal: Musculoskeletal: Denies back pain Integumentary/Breasts: Skin/Breast: Denies dry skin Neurologic: Denies Abnormal speech present Psychiatric: Psychiatric: Denies behavioral changes Endocrine: Endocrine: Denies excessive sweating Hematologic/Lymphatic: Hematologic/Lymphatic: Denies easy bleeding Allergic/Immunologic: Allergic/Immunologic: Denies GI upset with certain foods PMFSH Past Medical History Medical History Anxiety and depression Bladder cancer Chronic obstructive pulmonary disease Continuous tobac
[2022-07-28] MEDS: HYDROcodone/acetaminophen (*CRX) 10-325 MG TABLET 1 TAB PO (18:29)
--- NOTE | 2022-07-28 19:43 | ADMGEN ---
This patient, Bhanu Álvarez, was admitted to IMU Room 204-01 at 1626. Patient/family oriented to hospital policies and general routines including ID bracelet, bed and alarms, visiting hours, pain management, procedures, bathroom and other care routines, personal items, smoking policy, room service/diet, and visiting hours. Information on how to activate the Rapid Response Team has been discussed. Patient/Family are encouraged to report perceived risks to care and to ask questions if they do not understand what they are told or what they should do.
[2022-07-28] MEDS: carvediloL 3.125 MG TABLET PO (22:31)
[2022-07-29] VITALS (10 sets, daily range): BP systolic 140–152; BP diastolic 71–74; PULSE 47–59; RESP 20; TEMP 36.2–36.8; O2SAT 93–100
--- NOTE | 2022-07-29 | ECHO_ITS ---
Patient Info Name: Bhanu Álvarez Age: 67 years : 1955 Gender: Male Ht: 68 in Wt: 145 lbs BSA: 1.78 m2 HR: 53 bpm BP: 144 / 74 mmHg Heart Rhythm: Sinus Rhythm Technical Quality: Fair Exam Date: 07/29/2022 10:17 AM Exam Location: [facility] Exam Room: [facility] Patient Status: Inpatient Admit Date: 07/28/2022 Staff Ordering Physician: Keon Calvin MD Instructor Warper: Payton Pastrana RDCS Attending Provider: Leia Garcia DO Referring Physician: Nikunj GRIFFITH; Exam Type: CA echo doppler color flow Study Info Indications - CAD Complete two-dimensional, color flow and Doppler transthoracic echocardiogram is performed. Summary 1. Complete two-dimensional, color flow and Doppler transthoracic echocardiogram is performed. 2. Left ventricular chamber dimension is normal. 3. Left ventricular systolic function is normal, estimated at 55-60%. 4. There is no increased left ventricular wall thickness. 5. The left ventricular diastolic function is grade I diastolic dysfunction. 6. The basal anterolateral wall, and mid anterolateral wall are hypokinetic. 7. Right ventricular chamber dimension is mildly enlarged. 8. There is mild mitral valve regurgitation. 9. There is mild tricuspid valve regurgitation. Left Ventricle Left ventricular chamber dimension is normal. Left ventricular systolic function is normal, estimated at 55-60%. There is no increased left ventricular wall thickness. The left ventricular diastolic function is grade I diastolic dysfunction. The basal anterolateral wall, and mid anterolateral wall are hypokinetic. All other duron appear normal. Right Ventricle Right ventricular chamber dimension is mildly enlarged. Right ventricular systolic function is normal. Left Atria Left atrial chamber dimension is normal. Right Atria Right atrial chamber dimension is normal. Atrial Septum Intact interatrial septum visualized by color flow imaging. Aortic Valve The aortic valve is trileaflet. There is mild aortic valve sclerosis. There is no aortic valve stenosis. There is trace aortic valve regurgitation. Pulmonic Valve The pulmonic valve is normal. There is no pulmonic valve stenosis. There is trace pulmonic regurgitation. Mitral Valve The mitral valve has normal leaflets. There is no mitral valve stenosis. There is mild mitral valve regurgitation. Tricuspid Valve The tricuspid valve leaflets are normal. There is no significant tricuspid valve stenosis. There is mild tricuspid valve regurgitation. No pulmonary hypertension, estimated pulmonary arterial systolic pressure is 29 mmHg. Pericardium/Pleural The pericardium appears normal. There is no pericardial effusion. Inferior Vena Cava Normal inferior vena cava with >50% collapse upon inspiration consistent with normal right atrial pressure, 10 mmHg. Aorta The aortic root size at the sinus of Valsalva is normal. Left Ventricular Outflow Tract Name Value Normal LVOT 2D LVOT Diameter 2.0 cm LVOT Doppler LVOT Peak Gradient 5 mmHg LVOT Mean Gradient 2 mmHg LVOT VTI 22 cm LVOT VTI/AV VTI Ratio
[2022-07-29 05:02] LABS: Hematocrit 41.9 % (42.0-52.0); Hemoglobin 14.6 g/dL (14.0-18.0); Mean Corpuscular HGB Conc 34.8 g/dl (32-36); Mean Corpuscular Hemoglobin 33.2 pg (26-34); Mean Corpuscular Volume 95.2 fl (80-100); Mean Platelet Volume 10.1 fl (7.4-10.4); Platelet Count Result 234 k/mm3 (150-375); White Blood Count 9.4 K/mm3 (4.5-10.0)
[2022-07-29 05:15] LABS: Magnesium 2.4 mg/dL (1.6-2.3)
[2022-07-29 06:04] LABS: Thyroid Stimulating Hormone Reflex 0.156 uIU/mL (0.465-4.68)
[2022-07-29] MEDS: SUCRALFATE 1 GM TABLET PO ×2 (06:09→12:09)
[2022-07-29] MEDS: LEVOTHYROXINE SODIUM 88 MCG TABLET PO (06:09)
[2022-07-29 06:51] LABS: Free T4 Free Thyroxine Reflex 1.09 ng/dL (0.78-2.19)
--- NOTE | 2022-07-29 07:50 | PM.IMPN ---
Progress Note: A&P Assessment and Plan (1) Chest pain: Code(s): R07.9 - Chest pain, unspecified Status: Acute Assessment and Plan: His chest pain seems atypical for cardiac pain and his initial troponin was normal. EKG did not show any acute ST segment elevations or depressions. More over this may very well be GI in etiology given nausea, vomiting, coughing episodes, and what sounds like an episode of hematemesis a couple of days ago. Continue to trend troponins. Cardiology consulted for their opinion. Start pantoprazole 40 mg IV b.i.d. and sucralfate. Consider GI consult for upper endoscopy on Sunday morning. 07/29: (2) Hypokalemia: Code(s): E87.6 - Hypokalemia Status: Acute Assessment and Plan: Potassium will be replaced and monitored. (3) Coronary artery disease: Code(s): I25.10 - Atherosclerotic heart disease of [place] coronary artery without angina pectoris Status: Acute Assessment and Plan: Continue statin, beta raisa, BETY-inhibitor, and dual antiplatelet therapy for now. Consider holding Plavix if he has another episode of hematemesis. (4) Essential hypertension: Code(s): I10 - Essential (primary) hypertension Status: Acute Assessment and Plan: Blood pressures reviewed 07/29 (5) Hypothyroidism: Code(s): E03.9 - Hypothyroidism, unspecified Status: Acute Assessment and Plan: Continue levothyroxine and check TSH. (6) Chronic obstructive pulmonary disease: Code(s): J44.9 - Chronic obstructive pulmonary disease, unspecified Status: Acute Assessment and Plan: No evidence of acute exacerbation. Continue maintenance inhalers. (7) Gastroesophageal reflux disease: Code(s): K21.9 - Gastro-esophageal reflux disease without esophagitis Status: Acute Assessment and Plan: Continue pantoprazole as detailed above. (8) Tobacco dependence: Code(s): F17.200 - Nicotine dependence, unspecified, uncomplicated Status: Acute Assessment and Plan: Smoking cessation is encouraged and was discussed. He does not seem motivated. Declines the need for nicotine patch. Plan DVT prophylaxis with SCDs GI prophylaxis with PPI Code status full code Subjective Date/time seen: 07/29/22 07:50 Interval history: 67-year-old male with history of tobacco dependence, heart disease, hypertension and GERD with history of peptic ulcer disease is presenting with chest pain, atypical, concerning for GI bleed versus cardiac etiology. No overnight events noted. No chest pain or shortness of breath. No nausea, vomiting or diarrhea. No fevers or chills. Review of Systems Review of Systems: 12 point review of systems was assessed and was negative except as noted in the HPI Exam Narrative: General: No acute distress, alert and oriented per baseline HEENT: Atraumatic, normocephalic, mucous membranes moist CV: Regular rate and rhythm, S1, S2 Lungs: Clear to auscultation bilaterally, no rales or crackles noted, no wheezes, good air entry Abdomen: Soft, nontender, nondistended Extremities: Normal to inspection Skin: No rashes noted, no lesions or wounds seen Psych: Euthymic, normal affect Objective Data Vital Signs Vital Signs: Vital Signs - 24 hr 07/28/22 08:02 07/28/22 08:12 07/28/22 08:12 Temperature 97.8 F Pulse Rate 71 65 Respiratory Rate 22 H Blood Pressure 113/74 Pulse Oximetry 100 98 Oxygen Delivery Room Air Room Air 07/28/22 09:32 07/28/22 09:45 07/28/22 09:55 Temperature Pulse Rate 61 58 L Respiratory Rate 23 H 17 Blood Pressure Pulse Oximetry 99 Oxygen Delivery Room Air 07/28/22 11:01 07/28/22 11:32 07/28/22 12:02 Temperature Pulse Rate 47 L 52 L 65 Respiratory Rate 15 21 H 11 L Blood Pressure 171/79 H 144/62 H 105/66 Pulse Oximetry 100 97 99 Oxygen Delivery
[2022-07-29] MEDS: UMECLIDINIUM BROMIDE 62.5 MCG ELLIPTA 1 PUFF INHALATION (08:22)
[2022-07-29] MEDS: ATORVASTATIN 40 MG TABLET PO (08:51)
[2022-07-29] MEDS: CLOPIDOGREL BISULFATE 75 MG TABLET PO (08:51)
[2022-07-29] MEDS: PANTOPRAZOLE SODIUM IV 40 MG VIAL IV PUSH (08:51)
[2022-07-29] MEDS: ASPIRIN 81 MG CHEWABLE TABLET PO (08:52)
[2022-07-29] MEDS: lisinopriL 10 MG TABLET PO (08:52)
[2022-07-29 09:41] LABS: Total Triiodothyronine (T3) 0.85 NG/ML (0.97-1.69)
--- NOTE | 2022-07-29 10:22 | PM.PNCARD ---
Progress Note: A&P Assessment and Plan (1) Coronary artery disease: Code(s): I25.10 - Atherosclerotic heart disease of [place] coronary artery without angina pectoris Status: Acute Assessment and Plan: His atypical chest pain. Not clear that this is cardiac in etiology. Continue dual antiplatelet, atorvastatin, carvedilol, lisinopril. Echo pending (2) Atypical chest pain: Code(s): R07.89 - Other chest pain Status: Acute Assessment and Plan: Troponins are all negative. I do not think that he needs an inpatient cardiac catheterization. This could be performed as an outpatient. My bigger concern is his hematemesis and recurrent vomiting. (3) Hematemesis: Code(s): K92.0 - Hematemesis Status: Acute Assessment and Plan: Will personally consult Dr. Lopez due to ongoing nausea and vomiting. Did have hematemesis couple of days ago. Does have a history of peptic ulcer disease (4) Gastroesophageal reflux disease: Code(s): K21.9 - Gastro-esophageal reflux disease without esophagitis Status: Acute Assessment and Plan: Continue pantoprazole (5) Chronic obstructive pulmonary disease: Code(s): J44.9 - Chronic obstructive pulmonary disease, unspecified Status: Acute Assessment and Plan: Patient is once again advised to stop smoking (6) Essential hypertension: Code(s): I10 - Essential (primary) hypertension Status: Acute Assessment and Plan: Continue lisinopril and carvedilol the blood pressure is still above goal. Will increase lisinopril to 20 mg daily Subjective Date/time seen: 07/29/22 10:22 Interval history: 67-year-old with chest pain and hematemesis Date of service 07/29/2022: Continues to be nauseated and vomiting. Has no current chest pain. Overall has generalized aches but no shortness of breath either. Review of Systems Review of Systems: All systems reviewed & are unremarkable except as noted in HPI and below Constitutional: Constitutional: Denies body ache(s) and Denies excessive sweating Eyes: Eyes: Denies blurry vision ENT: Reports Normal hearing present Cardiovascular: Cardiovascular: Reports chest pain, Reports pedal edema and Denies dyspnea Respiratory: Respiratory: Denies dyspnea Gastrointestinal: Gastrointestinal: Reports abdominal pain and Reports hematemesis Genitourinary: Genitourinary: Denies hematuria Musculoskeletal: Musculoskeletal: Denies back pain Integumentary/Breasts: Skin/Breast: Denies dry skin Neurologic: Reports Normal hearing present, Denies Abnormal speech present and Denies behavioral changes Psychiatric: Psychiatric: Denies behavioral changes Endocrine: Endocrine: Denies excessive sweating Hematologic/Lymphatic: Hematologic/Lymphatic: Denies easy bleeding Allergic/Immunologic: Allergic/Immunologic: Denies GI upset with certain foods Exam Narrative: Awake alert oriented appears to be stated age Const: General: comfortable and no acute distress HENMT: Face/Nose/Sinus: Normal nares present Mouth: Yes moist mucous membranes Eyes: Sclera: sclerae normal Other: Right eye blindness Neck: Neck: supple and no JVD Chest: Other: No reproducible chest wall pain to palpation Resp: Effort & Inspection: normal respiratory effort Auscultation: clear to auscultation bilaterally Cardio: Rate: regular rate Rhythm: regular rhythm GI: Inspection: non-distended Auscultation: normal bowel sounds Skin: General skin exam: normal color Neuro: Cranial nerves: Yes Normal hearing present Speech: normal speech and No Abnormal speech present Sensory Exam: normal sensation Extrem: General: normal to inspection and no edema Psych: Mental Status: mental status grossly normal Objective Data Vital Signs Vital Signs: Vital Signs - 24 hr 07/28/22 11:01 07/28/22 11:32 07/28/22 12:02 Temperature Pulse Rate 47 L 52 L 65 Respir
--- NOTE | 2022-07-29 15:03 | PM.DS ---
DS: Admitting Diagnosis Discharge Date 07/29/22 Admitting Diagnosis chest pain DS: Discharge Diagnosis Discharge Diagnosis (1) Chest pain: Code(s): R07.9 - Chest pain, unspecified Status: Acute Assessment and Plan: His chest pain seems atypical for cardiac pain and his initial troponin was normal. EKG did not show any acute ST segment elevations or depressions. More over this may very well be GI in etiology given nausea, vomiting, coughing episodes, and what sounds like an episode of hematemesis a couple of days ago. Continue to trend troponins. Cardiology consulted for their opinion. Start pantoprazole 40 mg IV b.i.d. and sucralfate. Consider GI consult for upper endoscopy on Sunday morning. (2) Hypokalemia: Code(s): E87.6 - Hypokalemia Status: Acute Assessment and Plan: Potassium will be replaced and monitored. (3) Coronary artery disease: Code(s): I25.10 - Atherosclerotic heart disease of [place] coronary artery without angina pectoris Status: Acute Assessment and Plan: Continue statin, beta raisa, BETY-inhibitor, and dual antiplatelet therapy for now. Consider holding Plavix if he has another episode of hematemesis. (4) Essential hypertension: Code(s): I10 - Essential (primary) hypertension Status: Acute Assessment and Plan: Blood pressures reviewed 07/29 (5) Hypothyroidism: Code(s): E03.9 - Hypothyroidism, unspecified Status: Acute Assessment and Plan: Continue levothyroxine and check TSH. (6) Chronic obstructive pulmonary disease: Code(s): J44.9 - Chronic obstructive pulmonary disease, unspecified Status: Acute Assessment and Plan: No evidence of acute exacerbation. Continue maintenance inhalers. (7) Gastroesophageal reflux disease: Code(s): K21.9 - Gastro-esophageal reflux disease without esophagitis Status: Acute Assessment and Plan: Continue pantoprazole as detailed above. (8) Tobacco dependence: Code(s): F17.200 - Nicotine dependence, unspecified, uncomplicated Status: Acute Assessment and Plan: Smoking cessation is encouraged and was discussed. He does not seem motivated. Declines the need for nicotine patch. Plan DVT prophylaxis with SCDs GI prophylaxis with PPI Code status full code DS: Summary Hospital Course Hospital Course: 67-year-old male with history of tobacco dependence, heart disease, hypertension and GERD with history of peptic ulcer disease is presenting with chest pain, atypical, concerning for GI bleed versus cardiac etiology. His chest pain seems atypical for cardiac pain and his initial troponin was normal.? EKG did not show any acute ST segment elevations or depressions. More over this may very well be GI in etiology given nausea, vomiting, coughing episodes, and what sounds like an episode of hematemesis a couple of days ago. Continue to trend troponins. Start pantoprazole 40 mg IV b.i.d. and sucralfate. Consult GI on Sunday for EGD. Cardiology did not think this was a cardiac episode. Chest pain likely 2/2 GI etiology. Symptoms resolved with carafate and PPI. D/c with close outpatient f/u with GI for EGD. See above and med rec for details. Time Spent with Patient Time attestation: Total time spent providing and/or coordinating discharge services: Exam Narrative: General: No acute distress, alert and oriented per baseline HEENT: Atraumatic, normocephalic, mucous membranes moist CV: Regular rate and rhythm, S1, S2 Lungs: Clear to auscultation bilaterally, no rales or crackles noted, no wheezes, good air entry Abdomen: Soft, nontender, nondistended Extremities: Normal to inspection Skin: No rashes noted, no lesions or wounds seen Psych: Euthymic, normal affect DS: Data Data Completed and Pending Labs on day of discharge: Labs from last 24 hours 07/29/22 07/28/22
== END 2022-07-29 15:50 | disposition home or self-care (01) ==
LOC: ANHED 13:06 → ANHIMU 13:18
PROVIDERS: Emergency Medicine; Physician Assistant; Admitting Provider Student in an Organized Health Care Education/Training Program; Emergency Provider Physician Assistant; PCP Emergency Medicine; Visit Provider Student in an Organized Health Care Education/Training Program
DX: I25.10 Atherosclerotic heart disease of native coronary artery without angina pectoris (principal); Z95.5 Presence of coronary angioplasty implant and graft; K92.0 Hematemesis; K21.9 Gastro-esophageal reflux disease without esophagitis; J44.9 Chronic obstructive pulmonary disease, unspecified; I11.9 Hypertensive heart disease without heart failure; F41.9 Anxiety disorder, unspecified; J84.9 Interstitial pulmonary disease, unspecified; K40.90 Unilateral inguinal hernia, without obstruction or gangrene, not specified as recurrent; F32.A Depression, unspecified; R94.31 Abnormal electrocardiogram [ECG] [EKG]; I08.1 Rheumatic disorders of both mitral and tricuspid valves; E78.5 Hyperlipidemia, unspecified; E03.9 Hypothyroidism, unspecified; F12.90 Cannabis use, unspecified, uncomplicated; K27.9 Peptic ulcer, site unspecified, unspecified as acute or chronic, without hemorrhage or perforation; I25.2 Old myocardial infarction; F17.210 Nicotine dependence, cigarettes, uncomplicated; Z85.51 Personal history of malignant neoplasm of bladder; Z86.19 Personal history of other infectious and parasitic diseases; Z79.82 Long term (current) use of aspirin; Z79.01 Long term (current) use of anticoagulants; Z79.891 Long term (current) use of opiate analgesic; Z79.51 Long term (current) use of inhaled steroids; Z79.899 Other long term (current) drug therapy
CPT/HCPCS: 36415; 36600; 71046; 71275; 74177; 80053; 82805; 83690; 83735; 83880; 84439; 84443; 84480; 84484; 85025; 85027; 85610; 85730; 93005; 93306; 94640; 96361; 96374; 96375; 96376; 99285; A9270; C9113; G0378; J3010; J7030; Q9967

== ENCOUNTER 2022-08-30 01:29 | Day surgery (SDC) | payer MEDICARE, MEDICAID, SELFPAY ==
[2022-08-18 09:51] VITALS: BMI 25.1
[2022-08-30 07:58] VITALS: BP 114/71; PULSE 60; RESP 18; TEMP 36.4; O2SAT 60; BMI 24.1
[2022-08-30] MEDS: LACTATED RINGERS 1,000 ML 150 ML IV CONT (08:09)
--- NOTE | 2022-08-30 08:53 | WPDANESEPPF ---
Anes - Initial Pre Proc Eval Procedure: Operation Date: 08/30/22 09:45 Proposed Procedures p Esophagogastroduodenoscopy - Didier Hudson MD Date/Time: 08/30/22 08:53 Surgeon: Didier Hudson MD Pre Op Diagnosis: hematemesis Patient Data Age: 67 Gender: M Height: 1.73 m Weight: 72 kg Last Vital Signs Temp 97.6 F 08/30/22 07:58 Pulse 60 08/30/22 07:58 Resp 18 08/30/22 07:58 BP 114/71 08/30/22 07:58 Pulse Ox 60 L 08/30/22 07:58 O2 Del Method Room Air 08/30/22 07:58 Allergies Allergy/AdvReac Type Severity Reaction Status Date / Time propoxyphene Allergy Intermediate Hives Verified 07/28/22 08:14 Home Medications Medication Instructions Recorded Confirmed Type alprazolam 1 mg tablet (Xanax) 1 mg PO DAILY PRN Anxiety 09/14/20 08/18/22 History atorvastatin 40 mg tablet (Lipitor) 40 mg PO DAILY 09/14/20 08/18/22 History calcium phosphate,dibasic 77 50,000 tablet PO [id number] 09/14/20 08/18/22 History mg-vitamin D3 400 unit tablet carvedilol 3.125 mg tablet (Coreg) 3.125 mg PO BID 09/14/20 08/18/22 History clopidogrel 75 mg tablet (Plavix) 75 mg PO DAILY 09/14/20 08/18/22 History hydrocodone 10 mg-acetaminophen 1 tablet PO HS PRN Pain 09/14/20 08/18/22 History 325 mg tablet levothyroxine 88 mcg tablet 88 mcg PO DAILY 09/14/20 08/18/22 History (Synthroid) lisinopril 10 mg tablet (Zestril) 10 mg PO DAILY 09/14/20 08/18/22 History pantoprazole 20 mg tablet,delayed 20 mg PO QAM 09/14/20 08/18/22 History release (Protonix) sildenafil 50 mg tablet 50 mg PO DAILY 09/14/20 08/18/22 History albuterol sulfate 90 mcg/actuation 2 puff inhalation QID PRN 05/03/21 08/18/22 History aerosol inhaler Shortness Of Breath nitroglycerin 0.4 mg sublingual 0.4 mg sublingual Q5-15M PRN Chest 05/03/21 08/18/22 History tablet Pain umeclidinium 62.5 mcg/actuation 1 inh inhalation DAILY 05/03/21 08/18/22 History blister powder for inhalation (Incruse Ellipta) aspirin 81 mg chewable tablet 81 mg PO DAILY 07/28/22 08/18/22 History sucralfate 1 gram tablet 1 g PO 0700,1100,1600,2100 1 month 07/29/22 08/18/22 Rx #120 tabs Patient hx anesthesia problems: none Family hx anesthesia problems: none Results Review: All pre-operative results and documents have been reviewed as part of the pre-operative evaluation. [facility] Past Medical History Medical History Anxiety and depression Bladder cancer Chronic obstructive pulmonary disease Continuous tobacco abuse Coronary artery disease Essential hypertension Gastroesophageal reflux disease Hepatitis C virus infection resolved after antiviral drug therapy Hyperlipidemia Hypothyroidism Restless leg syndrome ST elevation myocardial infarction (STEMI) (07/2012) Surgical History Surgical History Abnormal cystoscopy x8 History of cardiac catheterization (08/01/12) Aspiration thrombectomy, PTCA, stent x2 in overlapping fashion in major diagonal branch. Per Dr. Gresham. History of cystoscopy Right eye trauma Family History Family History Mother Acute myocardial infarction Leukemia Father Colon cancer Sibling Heart problem Social History Social History Social History: Surrogate medical decision maker: Jodee Álvarez, spouse. Code status: Full code. Smoking packs per day: 1 Smoking cigarettes per day: 20.0 Years smoked: 60 Smoking pack-years: 60.00 Smoking status: Former smoker Tobacco type: cigarettes Alcohol intake: never Substance use: current Substance use type: marijuana Other substance usage details: has decreased use from daily to approximately 3x/week Lack of Transportation: No Lack of Food: Never True Current Housing: I H
--- NOTE | 2022-08-30 08:56 | PM.HPGS ---
History of Present Illness History of Present Illness Consent: Risks, benefits, and alternatives have been discussed and questions answered. Patient agrees to proceed with procedure. Chief complaint: hematemesis Narrative: Bhanu Álvarez is a 67 year old male with non-cardiac chest pain in the hospital about 1 month ago, had nausea and vomiting with small amount of blood after spiting up, went home with 1 month of sucralfate and now doing much better. Review of Systems Constitutional: Constitutional: Denies headache(s) and Denies weakness Eyes: Eyes: Denies blurry vision ENT: Reports Normal hearing present, Denies headache(s) and Denies neck pain Cardiovascular: Cardiovascular: Denies chest pain and Denies dyspnea Respiratory: Respiratory: Denies dyspnea Gastrointestinal: Gastrointestinal: Reports no additional gastrointestinal complaints Genitourinary: Genitourinary: Denies dysuria Musculoskeletal: Musculoskeletal: Denies neck pain Integumentary/Breasts: Skin/Breast: Denies dry skin Neurologic: Reports Normal hearing present, Denies headache(s) and Denies weakness Psychiatric: Psychiatric: Denies anxiety Endocrine: Endocrine: Denies change in body appearance Hematologic/Lymphatic: Hematologic/Lymphatic: Denies easy bleeding Allergic/Immunologic: Allergic/Immunologic: Denies urticaria PMFSH Past Medical History Medical History (Updated 08/30/22 @ 08:57 by Didier Hudson MD) Anxiety and depression Bladder cancer Chronic obstructive pulmonary disease Continuous tobacco abuse Coronary artery disease Essential hypertension Gastroesophageal reflux disease Hepatitis C virus infection resolved after antiviral drug therapy Hyperlipidemia Hypothyroidism Non-cardiac chest pain Restless leg syndrome ST elevation myocardial infarction (STEMI) (07/2012) Surgical History Surgical History Abnormal cystoscopy x8 History of cardiac catheterization (08/01/12) Aspiration thrombectomy, PTCA, stent x2 in overlapping fashion in major diagonal branch. Per Dr. Gresham. History of cystoscopy Right eye trauma Family History Family History Mother Acute myocardial infarction Leukemia Father Colon cancer Sibling Heart problem Social History Social History Social History: Surrogate medical decision maker: Jodee Álvarez, spouse. Code status: Full code. Smoking packs per day: 1 Smoking cigarettes per day: 20.0 Years smoked: 60 Smoking pack-years: 60.00 Smoking status: Former smoker Tobacco type: cigarettes Alcohol intake: never Substance use: current Substance use type: marijuana Other substance usage details: has decreased use from daily to approximately 3x/week Lack of Transportation: No Lack of Food: Never True Current Housing: I Have Housing Concerned About Future Housing: No Difficulty Paying Gas/Electric Bills: No Difficulty Paying for Meds: No Currently Unemployed: No Education: High School Diploma/GED Difficulty w/ Childcare or Family Care: No Living arrangements: with family Spiritual care concerns: No Meds Home Medications and Allergies Home Medications Medication Instructions Recorded Confirmed Type alprazolam 1 mg tablet (Xanax) 1 mg PO DAILY PRN Anxiety 09/14/20 08/18/22 History atorvastatin 40 mg tablet (Lipitor) 40 mg PO DAILY 09/14/20 08/18/22 History calcium phosphate,dibasic 77 50,000 tablet PO [id number] 09/14/20 08/18/22 History mg-vitamin D3 400 unit tablet carvedilol 3.125 mg tablet (Coreg) 3.125 mg PO BID 09/14/20 08/18/22 History clopidogrel 75 mg tablet (Plavix) 75 mg PO DAILY 09/14/20 08/18/22 History hydrocodone 10 mg-acetaminophen 1 tablet PO HS PRN Pain 09/14/20 08/18/22 History 325 mg tablet levothyroxine 88 mcg tab
[2022-08-30 09:04] VITALS: BP 95/54; PULSE 55; RESP 25; O2SAT 98
[2022-08-30 09:14] VITALS: BP 137/85; PULSE 55; RESP 20; O2SAT 99
[2022-08-30 09:24] VITALS: BP 119/73; PULSE 51; RESP 20; O2SAT 99
--- NOTE | 2022-08-30 09:30 | SUR.PHASEII ---
Pt refused assistance and wheelchair for discharge. Ambulated out of building unassisted. Pt stated I'm fine.
== END 2022-08-30 09:30 | disposition home or self-care (01) ==
PROVIDERS: PCP Emergency Medicine; Visit Provider Internal Medicine Gastroenterology
PROC: 0DJ08ZZ Inspection of Upper Intestinal Tract, Via Natural or Artificial Opening Endoscopic (ICD-10-PCS; CPT 43235; principal; 2022-08-30 09:45)
DX: K29.70 Gastritis, unspecified, without bleeding (principal); K44.9 Diaphragmatic hernia without obstruction or gangrene; K21.9 Gastro-esophageal reflux disease without esophagitis; I10 Essential (primary) hypertension; I25.10 Atherosclerotic heart disease of native coronary artery without angina pectoris; E78.5 Hyperlipidemia, unspecified; E03.9 Hypothyroidism, unspecified; I25.2 Old myocardial infarction; J44.9 Chronic obstructive pulmonary disease, unspecified; G25.81 Restless legs syndrome; F41.8 Other specified anxiety disorders; Z86.19 Personal history of other infectious and parasitic diseases; Z85.51 Personal history of malignant neoplasm of bladder; Z79.02 Long term (current) use of antithrombotics/antiplatelets; Z79.51 Long term (current) use of inhaled steroids; Z79.82 Long term (current) use of aspirin; Z95.5 Presence of coronary angioplasty implant and graft; Z87.891 Personal history of nicotine dependence; F12.90 Cannabis use, unspecified, uncomplicated
CPT/HCPCS: 43239; 88305; J2704; J7120

== ENCOUNTER 2022-09-21 02:13 | Day surgery (SDC) | payer MEDICARE, MEDICAID, SELFPAY ==
[2022-09-07 10:31] VITALS: BMI 25.9
--- NOTE | 2022-09-07 10:40 | PC.NURSE ---
Report to the Outpatient Waiting Room, entrance under the green pavilion located off [facility], at time ___0600____ on date __09/21/22 . Planned Procedure Time: ___729 . Time changes happen often and if your time is changed the preop area will call you the afternoon before. - You and your visitor will be asked to self-screen and do not enter if you have any COVID symptoms. - A mask is optional within the hospital at this time. Patients may have clear liquids (water, carbonated beverages, clear teas, apple juice) until 3 hours prior to surgery (0430 AM) with a maximum of 20 ounces. - No food from midnight until time of surgery - Infants may have breast milk until 4 hours before surgery, infant formula 6 hours prior to surgery. - Children will be allowed to drink immediately following surgery. If applicable, please bring a bottle or sippy cup to assist with drinking. Juice, water, soda, and popsicles are readily available. For infants on formula, please bring formula the day of surgery. Pacifiers are allowed. Take the following medications with a SIP of water the morning of surgery: _COREG, SYNTHROID, & INHALER, XANAX, PAIN MED IF NEEDED_ DO NOT STOP ANY OF YOUR OTHER PRESCRIPTION MEDICATIONS PRIOR TO SURGERY ?EXCEPT THE FOLLOWING Medications to discontinue - _ASPIRIN, PLAVIX PER DR. FRAGOSO'S INSTRUCTIONS_ Date to take last dose Please no make-up, nail georgian, hairspray, perfume, deodorant, or body powder the day of surgery. No jewelry (including any body piercings) or valuables the day of surgery, leave them at home. Please take a shower or bath the night before, or the morning of, surgery with an antibacterial soap. Wear comfortable, loose fitting clothing. Children are encouraged to wear pajamas. - Jewelry must be removed prior to entering the operating room. Rings and piercings that are not removed may be cut off. - The hospital will not accept responsibility for valuables. - Please leave all valuables, including medications, at home the day of surgery. If you are going home after surgery, a licensed boat driver must drive you home. - NO public transportation without another adult if you receive anesthesia. - We recommend that an adult stay with you for 24 hours following discharge. - We also recommend that you do not drive, make important decision, drink alcoholic beverages, or take any drugs that were not prescribed by your health care provider for at least 24 hours after your discharge time. For Pediatric surgeries, we recommend two adults accompany the child home. Follow any additional instructions given to you from your surgeon. If you or anyone in your household have experienced Covid symptoms in the past week, please notify your surgeon or the nurse liaison at the phone number below for possible testing. Telephone instructions given to _PT'S SPOUSE (MELISSA)_and asked if any additional questions and then verbalized understanding. Patient advised to call surgeon office or pre surgery nurse liaison [phone] if any additional questions.
[2022-09-21] VITALS (14 sets, daily range): BP systolic 99–189; BP diastolic 64–100; PULSE 51–87; RESP 16–20; TEMP 36.1–36.8; O2SAT 96–100
--- NOTE | ~2022-09-21 | XR_ITS ---
EXAMINATION: XR retrograde pyelo w/stent BI, XR urethrocystogram DATE: 09/21/2022 09:04 INDICATION: Bladder cancer with bladder injury. TECHNIQUE: 1. 99 fluoroscopic images were obtained during the retrograde pyelogram and ureteral stent placement and an additional 113 fluoroscopic images were obtained during the urethra cystogram portion of the p rocedures performed by Dr. Gilliam. Radiologist was not present for the imaging or procedure. The amou nt of fluoroscopy time used during this procedure was was 2.2 minutes with a total of 212 fluoroscopi c recorded images. Total DAP was 1.8 mGym^2 COMPARISON: CT dated 07/28/2022 FINDINGS: Images demonstrate a catheter advanced into the left ureter with retrograde injection of contrast dem onstrate normal-appearing left and right renal collecting systems. Subsequent image demonstrates the distal aspect of a left ureteral stent within the bladder. Subsequent contrast injection in the bladd er outlines the inflated bulb with a Titus catheter at the base of the bladder. There is leakage of a small amount of contrast near the right ureterovesicular junction which appears to remain contained within the extraperitoneal fat on the right side of the base of the bladder. There is an irregular co ntour to the dome of the bladder likely related to reported bladder cancer. No evident free intraperi toneal extravasation of contrast. There is minimal bilateral vesicoureteral reflux into the distal as pect of the bilateral ureters. IMPRESSION: 1. Small likely extraperitoneal bladder leak originating near the right ureterovesicular junction. 2. Placement of a right internal ureteral stent. See procedure note for further detail. Reviewed, dictated and finalized at location A. IMPRESSION: 1. Small likely extraperitoneal bladder leak originating near the right uretero vesicular junction. 2. Placement of a right internal ureteral stent. See procedure note for further detail.
--- NOTE | 2022-09-21 06:23 | WPDHPUPDATE1 ---
History and Physical Update Update Date/Time: 09/21/22 06:23 History and Physical has been reviewed, including an updated exam of the patient. There are NO changes in the patient's condition. Risks, benefits, and alternatives have been discussed and questions answered. Patient agrees to proceed with procedure.
[2022-09-21] MEDS: LACTATED RINGERS 1,000 ML 30 ML IV CONT ×2 (06:44→09:43)
--- NOTE | 2022-09-21 06:59 | WPDANESEPPF ---
Anes - Initial Pre Proc Eval Procedure: Operation Date: 09/21/22 07:30 Proposed Procedures p Cystoscopy with Right Ureteroscopy,Possible Laser Ablation of Upper Tract Urothelial Carcinoma and - Vlad Gilliam MD s Resection of Bladder Tumor - Vlad Gilliam MD Date/Time: 09/21/22 06:59 Surgeon: Vlad Gilliam MD Pre Op Diagnosis: Bladder Cancer Patient Data Age: 67 Gender: M Height: 1.73 m Weight: 77.27 kg Allergies Allergy/AdvReac Type Severity Reaction Status Date / Time propoxyphene Allergy Intermediate Hives Verified 09/07/22 10:26 Home Medications Medication Instructions Recorded Confirmed Type alprazolam 1 mg tablet (Xanax) 1 mg PO DAILY PRN Anxiety 09/14/20 09/21/22 History atorvastatin 40 mg tablet (Lipitor) 40 mg PO DAILY 09/14/20 09/21/22 History calcium phosphate,dibasic 77 50,000 tablet PO [id number] 09/14/20 09/21/22 History mg-vitamin D3 400 unit tablet carvedilol 3.125 mg tablet (Coreg) 3.125 mg PO BID 09/14/20 09/21/22 History clopidogrel 75 mg tablet (Plavix) 75 mg PO DAILY 09/14/20 09/21/22 History hydrocodone 10 mg-acetaminophen 1 tablet PO HS PRN Pain 09/14/20 09/21/22 History 325 mg tablet levothyroxine 88 mcg tablet 88 mcg PO DAILY 09/14/20 09/21/22 History (Synthroid) lisinopril 10 mg tablet (Zestril) 10 mg PO DAILY 09/14/20 09/21/22 History sildenafil 50 mg tablet 50 mg PO DAILY 09/14/20 09/07/22 History albuterol sulfate 90 mcg/actuation 2 puff inhalation QID PRN 05/03/21 09/21/22 History aerosol inhaler Shortness Of Breath nitroglycerin 0.4 mg sublingual 0.4 mg sublingual Q5-15M PRN Chest 05/03/21 09/07/22 History tablet Pain umeclidinium 62.5 mcg/actuation 1 inh inhalation DAILY 05/03/21 09/21/22 History blister powder for inhalation (Incruse Ellipta) aspirin 81 mg chewable tablet 81 mg PO DAILY 07/28/22 09/21/22 History sucralfate 1 gram tablet 1 g PO 0700,1100,1600,2100 1 month 07/29/22 09/21/22 Rx #120 tabs pantoprazole 40 mg tablet,delayed 40 mg PO .daily #30 tabs 08/30/22 09/21/22 Rx release Patient hx anesthesia problems: none Family hx anesthesia problems: none Results Review: All pre-operative results and documents have been reviewed as part of the pre-operative evaluation. [facility] Past Medical History Medical History Anxiety and depression Bladder cancer Chronic obstructive pulmonary disease Continuous tobacco abuse Coronary artery disease Essential hypertension Gastroesophageal reflux disease Hepatitis C virus infection resolved after antiviral drug therapy Hyperlipidemia Hypothyroidism Non-cardiac chest pain Restless leg syndrome ST elevation myocardial infarction (STEMI) (07/2012) Surgical History Surgical History Abnormal cystoscopy x8 History of cardiac catheterization (08/01/12) Aspiration thrombectomy, PTCA, stent x2 in overlapping fashion in major diagonal branch. Per Dr. Gresham. History of cystoscopy Right eye trauma Family History Family History Mother Acute myocardial infarction Leukemia Father Colon cancer Sibling Heart problem Social History Social History Social History: Surrogate medical decision maker: Jodee Álvarez, spouse. Code status: Full code. Smoking packs per day: 1 Smoking cigarettes per day: 20.0 Years smoked: 60 Smoking pack-years: 60.00 Smoking status: Former smoker Tobacco type: cigarettes Additional smoking assessment comments: QUIT GIGARRETTES 2002, SMOKES 2 CIGARS/DAY & PIPE WHEN OUT OF CIGARS Alcohol intake: current Alcohol use details: 1-2 BEERS/WEEK Substance use: current Substance use type: marijuana Other substance usage details: 3X WEEK Last use: 09/06/22 Lack of Transportation: No Lack of Food: Alfred
[2022-09-21] MEDS: ceFAZolin 2 GM/D5W 50 ML 2 GM/50 ML BAG IVPB (07:25)
[2022-09-21] MEDS: LIDOCAINE HCL 2% GEL UROJET 10 ML PKG MUCOUS MEM (07:43)
[2022-09-21] MEDS: fentaNYL CITRATE INJ (*CRX) 100 MCG/2 ML VIAL 25 MCG IV PUSH ×6 (09:02→10:02)
--- NOTE | 2022-09-21 09:20 | W.PM.PROC2 ---
Procedure Note - Detailed Date of Procedure 09/21/22 Pre-op Diagnosis Bladder Cancer Post-op Diagnosis Same Procedure Performed Cystoscopy, bilateral retrograde pyelography,right ureteroscopy with laser ablation of urothelial neoplasm, right ureteral stent placement, left ureteroscopy, TURBT medium, intraoperative cystogram Surgeon Vlad Gilliam MD Anesthesia General Description of Procedure patient is brought the op suite prepped draped in routine sterile fashion while in dorsal lithotomy position after the uneventful induction of general LMA anesthetic. Cystoscopy is undertaken with a 19 F rigid cystoscope. Careful inspection of his bladder shows extensive papillary regrowth of neoplasm in the right posterior lateral bladder wall involving the right ureteral orifice. This appears low grade in nature. The remainder of the bladder shows no obvious neoplasm in this does not extend into his prostatic urethra. 0.035 in glidewire was advanced in the right renal pelvis in the distal ureter was dilated with an 8 F 10 F dilator. Retrograde pyelography was used to ensure that I inspected all aspects of his collecting system. He has recurrent papillary neoplasm in an upper pole calyx and mid pole calyx. This extends very minimally along an infundibulum and a very slightly into the renal pelvis. Using a 200 micron holmium laser on tissue ablation settings I exhaustively and attempt to completely ablate all this neoplasm. Remainder of the collecting system ureter was without gross neoplasm. I did place a 4.8 F right variable length ureteral stent. Left ureteroscopy and retrograde pyelography showed no signs upper tract neoplasm on the left. In resecting his bladder tumor he had a vigorous obturator jerk and there was an injury to his bladder wall. After completing the resection and cauterizing with both blue and rollerball electrodes I performed an intraoperative cystogram. There appeared to be a scant amount of intraperitoneal extravasation. After leaving the catheter to very slow continuous irrigation. Patient was taken recovery good condition Estimated Blood Loss 10 Complications No immediate complications Condition Stable Disposition PACU
[2022-09-21] MEDS: TRANEXAMIC ACID 1,000 MG/10 ML AMPUL 1000 MG IV PUSH (09:27)
[2022-09-21] MEDS: HYOSCYAMINE SULFATE 0.125 MG TABLET PO (09:33)
[2022-09-21] MEDS: DEXTROSE 5%/LACTATED RINGERS 1,000 ML 125 ML IV CONT (10:37)
[2022-09-21] MEDS: ONDANSETRON INJ 4 MG/2 ML VIAL IV PUSH (10:37)
[2022-09-21] MEDS: MORPHINE SULFATE (*CRX) 2 MG/ML INJ IV PUSH ×3 (11:00→21:32)
[2022-09-21] MEDS: ceFAZolin 1 GM/NS 50 ML 1 GM/50 ML BAG IVPB ×2 (14:44→21:34)
[2022-09-21] MEDS: DOCUSATE SODIUM 100 MG CAPSULE PO (17:08)
[2022-09-21] MEDS: HYOSCYAMINE SULFATE 0.125 MG TABLET SUBLINGUAL ×2 (17:08→21:26)
[2022-09-22] MEDS: HYOSCYAMINE SULFATE 0.125 MG TABLET SUBLINGUAL ×3 (01:21→09:21)
[2022-09-22] MEDS: MORPHINE SULFATE (*CRX) 2 MG/ML INJ IV PUSH ×2 (01:38→07:01)
[2022-09-22 03:59] VITALS: BP 125/71; PULSE 91; RESP 18; TEMP 37.2; O2SAT 95
[2022-09-22 06:31] LABS: Hematocrit 33.9 % (42.0-52.0); Hemoglobin 11.9 g/dL (14.0-18.0)
[2022-09-22 06:45] LABS: Anion Gap 0 mmol/L (8-16); Blood Urea Nitrogen 11 mg/dL (9-20); Calcium 8.6 mg/dL (8.4-10.2); Carbon Dioxide 28 mmol/L (22-30); Chloride 106 mmol/L (98-107); Estimated CRCL calculation 66 ml/min; Estimated Glomerular Filt Rate > 60; Glucose 134 mg/dL (65-110); Potassium 4.2 mmol/L (3.4-5.0); Sodium 134 mmol/L (137-145)
--- NOTE | 2022-09-22 07:11 | WPDUROPN2 ---
Progress Note: A&P Assessment and Plan (1) Cancer of overlapping sites of bladder: Code(s): C67.8 - Malignant neoplasm of overlapping sites of bladder Status: Acute (2) Cancer of right renal pelvis: Code(s): C65.1 - Malignant neoplasm of right renal pelvis Status: Acute Assessment and Plan: Stop CBI Home later today with Titus catheter if urine remain clear. Subjective Subjective Date/Time Seen: 09/22/22 07:11 Interval history: Comfortable, bladder spasms controlled with sublingual Levsin Review of Systems Cardiovascular: Cardiovascular: Denies chest pain, Denies lightheadedness, Denies palpitations and Denies dyspnea Respiratory: Respiratory: Denies dyspnea Gastrointestinal: Gastrointestinal: Denies diarrhea, Denies nausea and Denies vomiting Genitourinary: Genitourinary: Denies hematuria and Denies dysuria Endocrine: Endocrine: Denies palpitations Exam Const: General: no acute distress Resp: Effort & Inspection: normal respiratory effort GI: Inspection: non-distended GI Palp: No abdominal tenderness and No Guarding due to palpation present (GI) Auscultation: normal bowel sounds Objective Data Vital Signs Vital Signs: Vital Signs - 24 hr 09/21/22 08:54 09/21/22 09:00 09/21/22 09:15 Temperature 97.4 F L Pulse Rate 61 56 L 54 L Respiratory Rate 16 18 16 Blood Pressure 189/100 H 156/72 H 169/87 H Pulse Oximetry 100 96 99 Oxygen Delivery Simple Face Mask Room Air Room Air Oxygen Flow Rate 8 09/21/22 09:30 09/21/22 09:45 09/21/22 10:00 Temperature Pulse Rate 60 55 L 57 L Respiratory Rate 16 20 20 Blood Pressure 157/83 H 144/85 H 156/91 H Pulse Oximetry 100 100 99 Oxygen Delivery Room Air Room Air Room Air Oxygen Flow Rate 09/21/22 10:10 09/21/22 10:39 09/21/22 10:35 Temperature 97.2 F L Pulse Rate 62 59 L Respiratory Rate 20 16 Blood Pressure 152/84 H 165/76 H Pulse Oximetry 98 100 Oxygen Delivery Room Air Room Air Oxygen Flow Rate 09/21/22 10:59 09/21/22 11:59 09/21/22 15:59 Temperature 96.9 F L 97.1 F L 97.3 F L Pulse Rate 52 L 51 L 66 Respiratory Rate 16 16 16 Blood Pressure 148/74 H 145/75 H 123/80 Pulse Oximetry 98 98 100 Oxygen Delivery Oxygen Flow Rate 09/21/22 19:59 09/21/22 23:55 09/22/22 03:59 Temperature 98.2 F 97.1 F L 99.0 F Pulse Rate 87 69 91 Respiratory Rate 18 18 18 Blood Pressure 99/74 L 117/64 125/71 Pulse Oximetry 100 99 95 Oxygen Delivery Oxygen Flow Rate Intake/Output Intake/Output: Intake & Output 09/19/22 09/20/22 09/21/22 09/22/22 23:59 23:59 23:59 23:59 Intake Total 1400 Output Total 18594 591 Balance -48691 -170 Meds/Results Medications: Active Medications Generic Name Dose Route Start Last Admin Trade Name Freq PRN Reason Stop Dose Admin Hydrocodone Bitart/Acetaminophen 1 tab 09/21/22 10:14 Hydrocodone/Acetaminophen (*Crx) 5-325 Mg Tablet PO Q4H PRN Pain Rated 1-6 Cephalexin HCl 500 mg 09/22/22 09:00 Cephalexin 500 Mg Capsule PO QID ALEKSANDRA Docusate Sodium 100 mg 09/21/22 17:00 09/21/22 17:08 Docusate Sodium 100 Mg Capsule PO 100 mg BID ALEKSANDRA Administration Hyoscyamine 0.125 mg 09/21/22 17:00 09/22/22 05:31 Hyoscyamine Sulfate 0.125 Mg Tablet SUBLINGUAL 0.125 mg Q4H ALEKSANDRA Administration Morphine Sulfate 2 mg 09/21/22 10:14 09/22/22 07:01 Morphine Sulfate (*Crx) 2 Mg/Ml Inj IV PUSH 2 mg Q2H PRN Administration Pain Rated 7-10 Naloxone HCl 0.1 mg 09/21/22 10:14 Naloxone Hcl 0.4 Mg/Ml Vial IV PUSH Q2M PRN Opiate Reversal Ondansetron HCl 4 mg 09/21/22 10:14 09/21/22 10:37 Ondansetron Inj 4 Mg/2 Ml Vial IV PUSH 4 mg Q12H PRN Administration Nausea And Vomiting Radiology Results: ITS Impressions Cystogram 09/21/22 10:25 IMPRESSION: 1. Small likely extraperitoneal bladder leak originating near the right ureterovesicular junction. 2. Placement of
[2022-09-22 07:59] VITALS: BP 118/74; PULSE 77; RESP 16; TEMP 37.7; O2SAT 98
[2022-09-22] MEDS: DOCUSATE SODIUM 100 MG CAPSULE PO (09:21)
[2022-09-22] MEDS: HYDROcodone/acetaminophen (*CRX) 5-325 MG TABLET 1 TAB PO (09:21)
[2022-09-22] MEDS: CEPHALEXIN 500 MG CAPSULE PO (09:21)
--- NOTE | 2022-09-22 09:46 | PM.DS ---
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 He was scheduled for surveillance right ureteroscopy and cystoscopy. During evaluation he was found to have recurrence of moderate amount a neoplasm in his right collecting system and bladder. He underwent laser ablation of neoplasm in his upper tract stent placement. Upon transurethral section the bladder he had a vigorous obturator jerk which led to bladder wall injury cystogram showed scant extraperitoneal extravasation. Patient watched overnight on a slow continuous irrigation. The following morning his urine was essentially clear and I decided to discharge him with an indwelling catheter. His management has challenging in that he does have intractable spasms with an indwelling catheter he will push p.o. fluid and use sublingual hyoscyamine spasms. Time Spent with Patient Time attestation: Total time spent providing and/or coordinating discharge services: Exam Const: General: no acute distress Resp: Effort & Inspection: normal respiratory effort GI: Inspection: non-distended GI Palp: No abdominal tenderness and No Guarding due to palpation present (GI) Auscultation: normal bowel sounds Urinary Catheter: Urinary Catheter: patent and draining and urine pink DS: Data Data Completed and Pending Pending studies at discharge: Pending at discharge 09/21/22 07:44 Cytology [PTH] Routine 09/21/22 08:43 Surgical [PTH] Routine Labs on day of discharge: Labs from last 24 hours 09/22/22 06:24 Hgb 11.9 L Hct 33.9 L Sodium 134 L Potassium 4.2 Chloride 106 Carbon Dioxide 28 Anion Gap 0 L BUN 11 D Creatinine 0.90 Estim Creat Clear Calc 66 Estimated GFR > 60 Glucose 134 H Calcium 8.6 Discharge Plan Discharge Patient Disposition: Home, Self-Care Discharge Instructions: 1) Titus catheter -> leg bag / bedside bag at night. 2) No lifting/straining >15lbs. x7 days 3) No driving [id number]. 4) Resume normal, pre-operative diet. 5) My office will contact regarding follow-up next week. Patient Instructions: Titus Catheter Placement and Care (DC), Urinary Leg Bag (GEN) Stand Alone Forms: General Discharge Instructions Discharge Orders: Discharge Order (Routine); Ordered 09/22/22 Ordered By: Vlad Gilliam Discharge Medications: New cephalexin 500 mg capsule 500 mg PO Q8H Qty: 15 0RF docusate sodium [Colace] 100 mg capsule 100 mg PO DAILY Qty: 30 0RF hydrocodone-acetaminophen 5-325 mg tablet 1 - 2 tablet PO Q6H PRN (Reason: pain) Qty: 30 0RF hyoscyamine sulfate 0.125 mg tablet 0.125 mg PO Q6H PRN (Reason: bladder spasms) Qty: 30 2RF Continued sucralfate 1 gram Tablet 1 g PO 0700,1100,1600,2100 30 Days Qty: 120 0RF pantoprazole 40 mg tablet,delayed release (DR/EC) 40 mg PO .daily Qty: 30 11RF atorvastatin [Lipitor] 40 mg Tablet 40 mg PO DAILY sildenafil 50 mg Tablet 50 mg PO DAILY alprazolam [Xanax] 1 mg Tablet 1 mg PO DAILY PRN (Reason: Anxiety) hydrocodone-acetaminophen 10-325 mg Tablet 1 tablet PO HS PRN (Reason: Pain) carvedilol [Coreg] 3.125 mg Tablet 3.125 mg PO BID Hold Instructions: Hold this medication until restarted by your Access Control Officer or Primary Care Provider due to your slow heart rate. Rx Instructions: half a tablet levothyroxine [Synthroid] 88 mcg Tablet 88 mcg PO DAILY lisinopril [Zestril] 10 mg Tablet 10 mg PO DAILY nitroglycerin 0.4 mg Tablet, Sublingual 0.4 mg SUBLINGUAL Q5-15M PRN (Reason: Chest Pain) albuterol sulfate 90 mcg/actuation Hfa Aerosol Inhaler 2 puff INHALATION QID PRN (Reason: Shortness Of Breath) Incruse Ellipta 62.5
== END 2022-09-22 10:00 | disposition home or self-care (01) ==
LOC: ANHSURGERY 05:47 → ANH3MEDSUR 10:16
PROVIDERS: PCP Emergency Medicine; Visit Provider Urology
PROC: (CPT 52352; principal; 2022-09-21 07:30)
PROC: 0TBB8ZZ Excision of Bladder, Via Natural or Artificial Opening Endoscopic (ICD-10-PCS; CPT 52354; 2022-09-21 07:30)
DX: C67.8 Malignant neoplasm of overlapping sites of bladder (principal); C65.1 Malignant neoplasm of right renal pelvis; I10 Essential (primary) hypertension; I25.10 Atherosclerotic heart disease of native coronary artery without angina pectoris; E78.5 Hyperlipidemia, unspecified; E03.9 Hypothyroidism, unspecified; I25.2 Old myocardial infarction; F41.8 Other specified anxiety disorders; K21.9 Gastro-esophageal reflux disease without esophagitis; G25.81 Restless legs syndrome; Z86.19 Personal history of other infectious and parasitic diseases; F12.90 Cannabis use, unspecified, uncomplicated; F17.290 Nicotine dependence, other tobacco product, uncomplicated; Z79.02 Long term (current) use of antithrombotics/antiplatelets; Z79.51 Long term (current) use of inhaled steroids; Z79.82 Long term (current) use of aspirin
CPT/HCPCS: 52354; 52332; 36415; 51610; 74420; 74450; 80048; 85014; 85018; 88108; 88305; A9270; C1758; C1769; C2617; J0690; J2250; J2270; J2405; J2704; J3010; J7120; J7121; Q9966

== ENCOUNTER 2023-01-04 00:54 | Day surgery (SDC) | payer MEDICARE, MEDICAID, SELFPAY ==
--- NOTE | 2022-12-26 15:14 | PC.NURSE ---
Report to the Outpatient Waiting Room, entrance under the green pavilion located off [facility], at time 0630 on date 01/04/23 . Planned Procedure Time: _0830 . Time changes happen often and if your time is changed the preop area will call you the afternoon before. - You and your visitor will be asked to self-screen and do not enter if you have any COVID symptoms. - A mask is optional within the hospital at this time. Patients may have clear liquids (water, carbonated beverages, clear teas, apple juice) until 3 hours prior to surgery with a maximum of 20 ounces. - No food from midnight until time of surgery - Infants may have breast milk until 4 hours before surgery, formula 6 hours prior to surgery. - Children will be allowed to drink immediately following surgery. If applicable, please bring a bottle or sippy cup to assist with drinking. Juice, water, soda, and popsicles are readily available. For infants on formula, please bring formula the day of surgery. Pacifiers are allowed. Take the following medications with a SIP of water the morning of surgery: ____INCRUSE INHALER,,CARVEDILOL,LEVOTHYROXINE DO NOT STOP ANY OF YOUR OTHER PRESCRIPTION MEDICATIONS PRIOR TO SURGERY ?EXCEPT THE FOLLOWING Medications to discontinue per physician __PT STATE HOLD ASPIRIN AND PLAVIX 7 DAYS PRE OP PER DR FRAGOSO.LAST DOSE 12/27/22 Please no make-up, nail czech, hairspray, perfume, deodorant, or body powder the day of surgery. No jewelry (including any body piercings) or valuables the day of surgery, leave them at home. Please take a shower or bath the night before, or the morning of, surgery with an antibacterial soap. Wear comfortable, loose fitting clothing. Children are encouraged to wear pajamas. - Jewelry must be removed prior to entering the operating room. Rings and piercings that are not removed may be cut off. - The hospital will not accept responsibility for valuables. - Please leave all valuables, including medications, at home the day of surgery. If you are going home after surgery, a licensed sales warehouse driver must drive you home. - NO public transportation without another adult if you receive anesthesia. - We recommend that an adult stay with you for 24 hours following discharge. - We also recommend that you do not drive, make important decision, drink alcoholic beverages, or take any drugs that were not prescribed by your health care provider for at least 24 hours after your discharge time. For Pediatric surgeries, we recommend two adults accompany the child home. Follow any additional instructions given to you from your surgeon. If you or anyone in your household have experienced Covid symptoms in the past week, please notify your surgeon or the nurse liaison at the phone number below for possible testing. Telephone instructions given to __WIFE PAT and asked if any additional questions and then verbalized understanding. Patient advised to call surgeon office or pre surgery nurse liaison [phone] if any additional questions.
[2022-12-26 15:19] VITALS: BMI 24.5
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
[2023-01-04] VITALS (8 sets, daily range): BP systolic 121–140; BP diastolic 63–87; PULSE 49–73; RESP 16–20; TEMP 36.1–36.7; O2SAT 100
--- NOTE | ~2023-01-04 | XR_ITS ---
XR retrograde pyelogram RT Procedure: Cystoscopy, ureteroscopy and right retrograde pyelogram TECHNIQUE: Fluoroscopy used during Cystoscopy, ureteroscopy and right retrograde pyelogram performed by [Vlad Gilliam MD] on 01/04/2023. 16 seconds of fluoroscopy time with 44 fluoroscopic im ages captured. FINDINGS: Correlate with procedure note. IMPRESSION: Fluoroscopy used during Cystoscopy, ureteroscopy and right retrograde pyelogram. Please r efer to procedural report for detail. Reviewed, dictated and finalized at location [facility]. IMPRESSION: Fluoroscopy used during Cystoscopy, ureteroscopy and right retrogra de pyelogram. Please refer to procedural report for detail.
[2023-01-04] MEDS: LACTATED RINGERS 1,000 ML 30 ML IV CONT (07:20)
--- NOTE | 2023-01-04 08:25 | WPDHPUPDATE1 ---
History and Physical Update Update Date/Time: 01/04/23 08:25 History and Physical has been reviewed, including an updated exam of the patient. There are NO changes in the patient's condition. Risks, benefits, and alternatives have been discussed and questions answered. Patient agrees to proceed with procedure.
[2023-01-04] MEDS: LIDOCAINE HCL 2% GEL UROJET 10 ML PKG MUCOUS MEM (08:30)
[2023-01-04] MEDS: ceFAZolin 2 GM/D5W 50 ML 2 GM/50 ML BAG IVPB (08:34)
--- NOTE | 2023-01-04 09:23 | W.PM.PROC2 ---
Procedure Note - Detailed Date of Procedure 01/04/23 Pre-op Diagnosis Bladder Ca Post-op Diagnosis Same Procedure Performed Cystoscopy, TURBT (small, 1-2 cm), bladder biopsy, right ureteroscopy Surgeon Vlad Gilliam MD Anesthesia General Findings 1. Small superficial bladder tumor in the bladder dome 2. Slight hyperemia in the right mid lateral bladder wall 3. Normal right ureteroscopy and renoscopy Description of Procedure Patient brought the operative suite was prepped draped in routine sterile fashion while in dorsal lithotomy position after the uneventful induction of a general LMA anesthetic. Cystoscopy undertaken with a 19 F rigid cystoscope. The bladder was very carefully inspected. I found 1 very small neoplasm in the dome which was resected using a loop electrode. The base and periphery were cauterized. He had an area of very slight hyperemia in the right lateral bladder wall which I biopsied with the loop and cauterized the base. The remainder the bladder was without hyperemia. There was no intravesical foreign bodies. The 0.035 in glidewire was advanced in his right renal pelvis. Retrograde pyelography was obtained to ensure inspection of all calices., somewhat to my surprise, right renoscopy was absolutely normal. There was no sign of recurrent upper tract urothelial carcinoma in any of the calices the renal pelvis or the right ureter. Scopes and wires removed he was taken recovery room in good condition Pathology None sent Complications No immediate complications Condition Stable Disposition PACU
== END 2023-01-04 11:07 | disposition home or self-care (01) ==
PROVIDERS: PCP Emergency Medicine; Visit Provider Urology
PROC: (CPT 52352; principal; 2023-01-04 08:30)
PROC: 0TBB8ZZ Excision of Bladder, Via Natural or Artificial Opening Endoscopic (ICD-10-PCS; CPT 52234; 2023-01-04 08:30)
DX: N30.90 Cystitis, unspecified without hematuria (principal); N32.89 Other specified disorders of bladder; Z85.51 Personal history of malignant neoplasm of bladder; J44.9 Chronic obstructive pulmonary disease, unspecified; I25.10 Atherosclerotic heart disease of native coronary artery without angina pectoris; E78.5 Hyperlipidemia, unspecified; I10 Essential (primary) hypertension; E03.9 Hypothyroidism, unspecified; I25.2 Old myocardial infarction; F41.8 Other specified anxiety disorders; K21.9 Gastro-esophageal reflux disease without esophagitis; G25.81 Restless legs syndrome; Z86.19 Personal history of other infectious and parasitic diseases; Z95.5 Presence of coronary angioplasty implant and graft; F17.290 Nicotine dependence, other tobacco product, uncomplicated; F12.90 Cannabis use, unspecified, uncomplicated; Z79.02 Long term (current) use of antithrombotics/antiplatelets; Z79.51 Long term (current) use of inhaled steroids; Z79.85 Long-term (current) use of injectable non-insulin antidiabetic drugs; Z79.891 Long term (current) use of opiate analgesic
CPT/HCPCS: 52234; 52204; 52351; 74420; 88305; 88342; C1758; C1769; J0690; J1100; J2405; J2704; J3010; J7120; Q9966

== ENCOUNTER 2023-07-05 06:50 | Outpatient (CLI) | payer MEDICARE, MEDICAID, SELFPAY ==
--- NOTE | ~2023-07-05 | CT_ITS ---
CT Scan of the Chest without Contrast: Clinical Indication: Lung cancer screening, nicotine dependence Technique: Contiguous sections were acquired throughout the chest without intravenous contrast. Dose reduction technique was used on this scan by utilizing automated exposure control and iterative recon struction technique. The dose-length product (DLP) was 126.14 mGy-cm. COMPARISON: 07/28/2022 Findings: There is no evidence of any significant mediastinal, hilar or axillary lymphadenopathy. Coronary tad ry calcifications are present. There is no evidence of pleural or pericardial effusion. Subpleural reticulation and numerous tiny peripheral pulmonary nodules are similar to prior exam. Jayy cified right basilar granuloma present. Images through the upper abdomen reveal calcified splenic granulomas. Impression: Lung RADS 2: Benign appearance. 12 month follow-up screening CT advised. Probable early/mild chronic interstitial change. Reviewed, dictated and finalized at [facility]. Impression: Lung RADS 2: Benign appearance. 12 month follow-up screening CT advised. Probable early/mild chronic interstitial change.
[2023-07-05 08:01] LABS: Basophils Percent Auto 0.5 % (0.2-1.2); Eosinophils Absolute Auto 0.1 K/mm3 (0-0.3); Eosinophils Percent Auto 1.9 % (0-4.4); Hematocrit 41.5 % (42.0-52.0); Immature Granulocyte Absolute 0.02 K/mm3 (0.00-0.031); Immature Granulocyte Percent A 0.3 % (0-0.5); Lymphocytes Absolute Auto 1.65 K/mm3 (0.9-3.2); Lymphocytes Percent Auto 21.9 % (18.3-44.2); Mean Corpuscular HGB Conc 33.7 g/dl (32-36); Mean Corpuscular Hemoglobin 33.6 pg (26-34); Mean Corpuscular Volume 99.5 fl (80-100); Mean Platelet Volume 10.1 fl (7.4-10.4); Neutrophils Absolute Auto 4.7 K/mm3 (1.3-6.7); Neutrophils Percent Auto 62.4 % (45.5-73.1); Platelet Count Result 206 k/mm3 (150-375); Red Blood Count 4.17 M/mm3 (4.6-6.20); Red Cell Distribution Width 12.3 % (11.5-14.5); White Blood Count 7.5 K/mm3 (4.5-10.0)
[2023-07-05 08:23] LABS: Appearance Urine Clear (Clear); Bacteria Urine None Seen /hpf; Bilirubin Urine Negative (Negative); Blood Urine Negative (Negative); Color Urine Yellow (Yellow); Glucose Urine UA Negative (Negative); Ketones Urine Negative (Negative); Leukocyte Esterase Ur 1+ LEU/UL (Negative); Need Manual Microscopic Reviewed; Nitrate Urine Negative (Negative); Non Pathogenic Casts 0-2; Protein Urine Negative (Negative); RBC Urine 0-2 /hpf (0-2); Specific Grav Ur 1.012 (1.001-1.035); Squamous Epithelial Cell Urine None Seen /hpf (Few); WBC Urine 0-5 /hpf (0-3)
[2023-07-05 08:29] LABS: Add Urine Microscopic? YES
[2023-07-05 10:22] LABS: Alanine Aminotransferase 24 U/L (6-50); Albumin Level 4.3 g/dL (3.5-5.1); Alkaline Phosphatase 78 U/L (38-126); Anion Gap 5 mmol/L (4-12); Aspartate Amino Transferase 28 U/L (17-59); Bilirubin,Total 0.6 mg/dL (0.2-1.3); Blood Urea Nitrogen 11 mg/dL (9-20); Calcium 9.4 mg/dL (8.4-10.2); Carbon Dioxide 27 mmol/L (22-30); Chloride 110 mmol/L (98-107); Cholesterol 121 mg/dL (0-200); Estimated Glomerular Filt Rate > 60; Glucose 109 mg/dL (65-110); HDL Direct 45 mg/dL; Magnesium 2.3 mg/dL (1.6-2.3); Phosphorus 3.2 mg/dL (2.5-4.5); Potassium 4.3 mmol/L (3.4-5.0); Sodium 142 mmol/L (137-145); Triglycerides 92 mg/dL (<150)
[2023-07-05 10:33] LABS: LDL Cholesterol Direct 63 mg/dL
[2023-07-05 10:51] LABS: Prostate Specific Antigen 1.8 ng/mL (< OR = 4.0)
[2023-07-05 16:22] LABS: Vitamin D 25 Hydroxy 69.1 ng/mL
== END 2023-07-05 06:51 | disposition home or self-care (01) ==
PROVIDERS: PCP Emergency Medicine; Visit Provider Emergency Medicine
DX: E03.8 Other specified hypothyroidism (principal); Z12.2 Encounter for screening for malignant neoplasm of respiratory organs; Z87.891 Personal history of nicotine dependence; C67.9 Malignant neoplasm of bladder, unspecified; E55.9 Vitamin D deficiency, unspecified; F51.01 Primary insomnia; G89.4 Chronic pain syndrome; I25.10 Atherosclerotic heart disease of native coronary artery without angina pectoris; J43.2 Centrilobular emphysema; K21.9 Gastro-esophageal reflux disease without esophagitis; N40.0 Benign prostatic hyperplasia without lower urinary tract symptoms; Z79.899 Other long term (current) drug therapy
CPT/HCPCS: 36415; 71271; 80061; 80069; 80076; 81001; 82306; 83735; 84153; 84443; 85025

== ENCOUNTER 2024-07-24 11:06 | Outpatient (CLI) | payer MEDICARE, MEDICAID, SELFPAY ==
--- NOTE | ~2024-07-24 | CT_ITS ---
CT Scan of the Chest without Contrast: Clinical Indication: Lung cancer screening, nicotine dependence Technique: Contiguous sections were acquired throughout the chest without intravenous contrast. Dose reduction technique was used on this scan by utilizing automated exposure control and iterative recon struction technique. The dose-length product (DLP) was 90.90 mGy-cm. COMPARISON: 07/05/2023 Findings: There is no evidence of any significant mediastinal, hilar or axillary lymphadenopathy. Coronary tad ry calcifications are present. There is no evidence of pleural or pericardial effusion. There is mild peripheral chronic interstitial disease. No distinct pulmonary nodule evident. Several small calcified granulomas are present. Images through the upper abdomen reveal no abnormalities. Impression: Lung RADS 2: Benign appearance. 12 month follow-up screening CT advised. Reviewed, dictated and finalized at [facility]. Impression: Lung RADS 2: Benign appearance. 12 month follow-up screening CT advised.
--- OUTSIDE RECORDS SUMMARY | 2024-07-24 11:10 | XMS_ITS | Encounter Summary ---
Author Organization [facility] Address [address] [place] [address] Phone Care Team Providers Care Lead Systems Engineer Name Role Phone Iker Feldman Primary Care Provider [phone] Juan Gresham MD Unavailable Hemant Delgado MD Unavailable Encounter Details Date Type Department Care Team (Late st Contact Info) Description 05/16/2021 [facility] [address] [place] [address] Hemant Delgado MD [address] [address] Pre-op testing (Primary Dx) Social History Tobacco Use Types Packs/Day Years Used Date Smoking Tobacco: Every Day Pipe Last attempted to quit: 12/12/1997 Cigars Last attempted to quit: 12/12/1997 Smokeless Tobacco: Never Comments:QUIT CIGARETTES IN 98 SMOKES PIPE X3 DAILY Alcohol Use Standard Drinks/Week Comments No 0 (1 standard drink = 0.6 oz pur e alcohol) NO LONGER DRINKS Sexually Active Control Partners Comments Not Currently Sex and Gender Information Value Date Recorded Sex Assigned at Not on file Legal Sex Male 11:21 AM CDT Gender Identity Not on file Sexual Orientation Not on file COVID-19 Exposure Response Date Recorded In the last month, have you been in contact with someone who was confirmed or suspected to have Coronavirus / COVID-19? No / Unsure 05/17/2021 11:10 AM PRODUCT TECHNOLOGY SCIENTIST documented as of this encounter Plan of Treatment Not on file documented as of this encounter Results * SARS-COV-2 BY MOLECULAR (05/17/2021 11:13 AM PRODUCT TECHNOLOGY SCIENTIST) SARSCOV2 NOT DETECTED (Referen ce Range for this test is Not Detected ) [facility] FAST DX 05/18/2021 11:52 AM PRODUCT TECHNOLOGY SCIENTIST [facility] Comment:This test was perfor med by a RT-PCR method. Other NASOPHARYNGEAL STRUCTURE / Unknown Non-Phlebotomy Collection / Unknown 05/17/2021 11:13 AM PRODUCT TECHNOLOGY SCIENTIST 05/17/2021 11:57 AM PRODUCT TECHNOLOGY SCIENTIST Narrative [facility] - 05/18/2021 11:52 AM PRODUCT TECHNOLOGY SCIENTIST Authorized Fact Sheets about this test for providers and patients are available at: https://www.fda.gov/medical-devices/phboeblys-ffwxpqipsw-qakcalv-devices/emergen cy-us e-authorizations us Hemant Delgado MD MICROBIOLOGY - GENERAL ORDERABLE S Final Result [facility] [address] [place] [address], documented in this encounter Visit Diagnoses Diagnosis Pre-op testing- Primary Preoperative examination, unspecified documented in this encounter Care Teams Lead Systems Engineer Relationship Specialty Start Date End Date Iker Feldman [address] [place] [address] PCP - General Family Medicine 12/05/17 Juan Gresham MD [address] [facility] [address] [place] [address] Cardiovascular Disease - Cardiology 12/05/17 Hemant Delgado MD #2 [facility], [address] [address] Consulting Physician Urology 01/19/22 documented as of this encounter
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
--- OUTSIDE RECORDS SUMMARY | 2024-07-24 11:10 | XMS_ITS | Encounter Summary ---
Author Organization [facility] Address [address] [place] [address] Phone Care Team Providers Care Manager Merchandise Name Role Phone Iker Feldman Primary Care Provider [phone] Juan Gresham MD Unavailable Hemant Delgado MD Unavailable Reason for Referral * Radiology Services (Routine) - Closed Specialty Diagnoses / Procedures Referred By Contac t Referred To Contact Radiology Diagnoses Pre-op testing Procedures EKG 12 LEAD Laurent Abebe APRN, CRNA Referral ID Status Reason Start Date Expiration Date Visits Re quested Visits Authorized [id number] Closed 03/29/[address] [facility] Encounter Details Date Type Department Care Team (Latest Contact Info) Description 03/29/2021 Transcribe Orders [facility] Preop/Pacu II 1 [place] [id number] Laurent Abebe APRN, CRNA Pre-op testing (Primary Dx) Social History Tobacco [...] have Coronavirus / COVID-19? No / Unsure 03/29/2021 2:12 PM DIRECT CHILL CASTER documented as of this encounter Plan of Treatment Not on file documented as of this encounter Results * HEMOGLOBIN & HEMATOCRIT (H&H) (04/25/2021 7:56 AM DIRECT [facility]STER) HEMOGLOBIN (HGB) 14.7 13.0 - 16.5 g/dL 04/25/2021 8:12 AM DIRECT CH[facility] CASTER [facility] HEMATOCRIT (HCT) 44.9 38.0 - 50.0 % 04/25/2021 8:12 AM DIRECT [facility]STER [facility] Blood Venipuncture / Unknown 04/25/2021 7:56 AM DIRECT [facility] CASTER 04/25/2021 8:07 AM DIRECT [facility]STER us Laurent Abebe APRN, CRNA HEMATOLOGY ORDERAB LES Final Result [facility]1 [place] [address] * (ABNORMAL) BASIC METABOLIC PANEL W/ CALCIUM TOTAL (04/25/2021 7:56 AM DIRECT CH[facility] CASTER) SODIUM 133(L) 136 - 144 mmol/L 04/25/2021 8:32 AM DIRECT [facility]STER [facility] POTASSIUM 4.6 3.5 - 5.1 mmol/L 04/25/2021 8:32 AM DIRECT CH[facility] CASTER [facility] CHLORIDE 99(L) 100 - 110 mmol/L 04/25/2021 8:32 AM DIRECT [facility] CASTER [facility] CO2, VENOUS 27 22 - 32 mmol/L 04/25/2021 8:32 AM DIRECT CHILL CASTER [facility] ANION GAP 11.6 8.0 - 20.0 mmol/L 04/25/2021 8:32 AM [facility] GLUCOSE 111(H) 70 - 99 mg/dL 04/25/2021 8:32 AM [facility] BUN 11 8 - 23 mg/dL 04/25/2021 8:32 AM [facility] CREATININE, BLOOD 0.90 0.80 - 1.30 mg/dL 04/25/2021 8:32 AM [facility] BUN/CREATININE RATIO 12 12 - 20 ratio 04/25/2021 8:32 AM [facility] CALCIUM 9.4 8.9 - 10.3 mg/dL 04/25/2021 8:32 AM [facility] GFR, EST. NONAFRICAN >60 >=60 04/25/2021 8:32 AM [facility] GFR, EST. >60 >=60 04/25/2021 8:32 AM [facility] Comment: Creatinine Clearance is the preferred criteria for selecting drug dose adjustments in renally impaired patients. The GFR is provided as additional pertinent clinical information. GFR is reported in mL/min/1.73 sq m. IS THE PATIENT REQUIRED TO BE FASTING? No 04/25/2021 8:32 AM [facility] Blood Venipuncture / Unknown 04/25/2021 7:56 AM DIRECT [facility]STER 04/25/2021 8:07 AM [facility] us Laurent Abebe ANALYTICAL SCIENTIST, SERVICE CLERK CHEMISTRY ORDERABL ES Final Result [facility] [place] [address] * EKG 12 LEAD (04/25/2021 7:43 AM [facility]) Ventricular Rate BPM EXTERNAL EKG Atrial Rate BPM EXTERNAL EKG P-R Interval 194 ms EXTERNAL EKG QRS Duration 100 ms EXTERNAL EKG Q-T Duration 472 ms EXTERNAL EKG QTC CALCULATION 427 ms EXTERNAL EKG P Foster 79 degrees EXTERNAL EKG R Foster 49 degrees EXTERNAL EKG T Foster 67 degrees EXTERNAL EKG 04/25/2021 7:43 AM DIRECT [facility] Impressions EXTERNAL EKG - 04/25/2021 9:08 AM DIRECT [facility]STER Sinus bradycardia Abnormal R wave progression (?ASMI or lead location) Comparison Summary: Significant changes Summary: Abnormal ECG Compared with:03/27/2020 9:11 AM; 03/17/2019 9:55 AM No significant changes noted Confirmed by Lauren Mahmood [id number] on 04/25/2021 9:08:06 AM Narrative Procedure Note Sofia Aguilar MD - 04/25/2021 IMPRESSION: Sinus bradycardia Abnormal R wave progression (?ASMI or lead location) Comparison Summary: Significant changes Summary: Abnormal ECG Compared with:03/27/2020 9:11 AM; 03/17/2019 9:55 AM No significant changes noted Confirmed by Lauren Mahmood [id number] on 04/25/2021 9:08:06 AM us Laurent Nathanatzke ANALYTICAL SCIENTIST, SERVICE CLERK IMG ECG ORDERABLES Final Result Performing Organization Address City/State/[facility] Co de Phone Number EXTERNAL EKG documented in this encounter Visit Diagnoses Diagnosis Pre-op testing- Primary Preoperative examination, unspecified Pre-op testing Preoperative examination, unspecified documented in this encounter Care Teams Manager Merchandise Relationship Specialty Start Date End Date [address] [place] [address] PCP - General Family Medicine 12/05/17 Juan Gresham MD [address] [facility] [address] [place] [id number] Cardiovascular Disease - Cardiology 12/05/17 Hemant Delgado MD #2 [facility] [address] [place] [address] Consulting Physician Urology 01/19/22 documented as of this encounter
--- OUTSIDE RECORDS SUMMARY | 2024-07-24 11:10 | XMS_ITS | Encounter Summary ---
Author Organization [facility] Address [address] [place] [address] Phone Care Team Providers Care Noodle Press Operator Name Role Phone Iker Feldman Primary Care Provider [phone] Juan Gresham MD Unavailable Hemant Delgado MD Unavailable Encounter Details Date Type Department Care Team (Late st Contact Info) Description 03/29/2021 Transcribe Orders [facility] Preop/Pacu II 1 [place] [address] Hemant Delgado MD #[address] [address] Pre-op testing (Primary Dx) Social History Tobacco [...] COVID-19? No / Unsure 03/29/2021 2:12 PM ASSISTANT CORPORATION COUNSEL documented as of this encounter Plan of Treatment Not on file documented as of this encounter Results * SARS-COV-2 BY MOLECULAR (04/25/2021 7:54 AM ASSISTANT CORPORATION COUNSEL) SARSCOV2 NOT DETECTED (Referen ce Range for this test is Not Detected ) [facility] THERMOFISHER FAST DX 04/25/2021 6:50 PM ASSISTANT CORPORATION COUNSEL [facility] Comment:This test was perfor med by a RT-PCR method. Other NASOPHARYNGEAL STRUCTURE / Unknown Non-Phlebotomy Collection / Unknown 04/25/2021 7:54 AM ASSISTANT CORPORATION COUNSEL 04/25/2021 8:44 AM ASSISTANT CORPORATION COUNSEL Narrative [facility] - 04/25/2021 6:50 PM ASSISTANT CORPORATION COUNSEL Authorized Fact Sheets about this test for providers and patients are available at: https://www.fda.gov/medical-devices/oduxbilec-ryjnieywlf-fesptoy-devices/emergen cy-us e-authorizations us Hemant Delgado MD MICROBIOLOGY - GENERAL ORDERABLE S Final Result [facility] [address] [place] [address], documented in this encounter Visit Diagnoses Diagnosis Pre-op testing- Primary Preoperative examination, unspecified documented in this encounter Care Teams Noodle Press Operator Relationship Specialty Start Date End Date Iker Feldman [address] [place] [address] PCP - General Family Medicine 12/05/17 Juan Gresham MD [address] [facility] [address] [place] [address] Cardiovascular Disease - Cardiology 12/05/17 Hemant Delgado MD #2 [facility], [address] [address] Consulting Physician Urology 01/19/22 documented as of this encounter
--- OUTSIDE RECORDS SUMMARY | 2024-07-24 11:10 | XMS_ITS | Encounter Summary ---
Author Organization [facility] Address [address] [place] [address] Phone Care Team Providers Care Cardiovascular Operating Room Nurse Name Role Phone Iker Feldman Primary Care Provider [phone] Juan Gresham MD Unavailable Hemant Delgado MD Unavailable Encounter Details Date Type Department Care Team (Late st Contact Info) Description 04/26/2021 Transcribe Orders [facility] Preop/Pacu II 1 [place] [address] Hemant Delgado MD #[address] [address] Pre-op testing (Primary Dx) Social History Tobacco [...] have Coronavirus / COVID-19? 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 CONTROL ANALYST documented as of this encounter Plan of Treatment Not on file documented as of this encounter Visit Diagnoses Diagnosis Pre-op testing- Primary Preoperative examination, unspecified documented in this encounter Care Teams Cardiovascular Operating Room Nurse Relationship Specialty Start Date End Date Iker Feldman [address] [place] [address] PCP - General Family Medicine 12/05/17 Juan Gresham MD [address] [facility] [address] [place] [address] Cardiovascular Disease - Cardiology 12/05/17 Hemant Delgado MD #2 [facility] [address] [place] [address] Consulting Physician Urology 01/19/22 documented as of this encounter
--- OUTSIDE RECORDS SUMMARY | 2024-07-24 11:11 | XMS_ITS | Referral Summary ---
Author Organization [facility] [address] Address [address] [place] [address] Care Team Providers Care Board Worker Name Role Phone Iker Feldman MD Primary Care Provider [phone] Iker Feldman MD Unavailable [phone] Allergies Active Allergy Reactions Criticality Noted Date [...] 1 tablet (88 mcg total) by mouth relationship banker before breakfast Active albuterol HFA (PROVENTIL HFA,VENTOLIN [...] needed for pain Active cholecalciferol (VITAMIN D-3) 75905 unit tablet Take 1 tablet (50,000 Units total) by mouth once a week Active carvediloL (COREG) 3.125 mg tabletIndications :Coronary artery disease involving houlton coronary artery of houlton heart without angina pectoris Take 1 tablet (3.125 mg total) by mouth 2 (two) times a day with meals 180 tablet 3 4 Active clopidogreL (PLAVIX) 75 mg tabletIndications :Coronary artery disease involving houlton coronary artery of houl[place] heart without angina pectoris Take 1 tablet (75 mg total) by mouth daily 90 tablet 3 4 Active atorvastatin (LIPITOR) 40 mg tabletIndications :Coronary artery disease involving houlton coronary artery of houl[place] heart without angina pectoris Take 1 tablet (40 mg total) by mouth daily 90 tablet 3 4 Active nitroglycerin (NITROSTAT) 0.4 mg SL tabletIndications :Coronary artery disease involving houlton coronary artery of houlton heart without angina pectoris Place 1 tablet (0.4 mg total) under the tongue every 5 (five) minutes as needed for chest pain Up to 3 doses 25 tablet 4 Active lisinopriL (PRINIVIL,ZESTRIL ) 10 mg tabletIndications :Coronary artery disease involving houlton coronary artery of houlton heart without angina pectoris TAKE ONE TABLET BY MOUTH DAILY 90 tablet 2 4 Active Active Problems Problem Noted Date Diagnosed Date Atherosclerosis of coronary artery 12/12/2013 Overview (06/15/2016): Coronary atherosclerosis Social History Tobacco Use Types Packs/Day Years Used Date Smoking Tobacco: Every Day Pipe Smokeless Tobacco: Never Tobacco Cessation:Ready to Q uit: Not Asked; Counseling Given: Not Answered Alcohol Use Standard Drinks/Week Comments Yes 1 (1 standard drink = 0.6 oz pur e alcohol) Sex and Gender Information Value Date Recorded Sex Assigned at Not on file Legal Sex Male 9:18 PM PAINTER HAND Gender Identity Not on file Sexual Orientation Not on file Last Filed Vital Signs Vital Sign Reading [...] 11/01/2023 3:34 PM CDT Plan of Treatment Not on file Insurance [facility] MEDICARE ADVANTAGE [facility] MEDICARE ADVANTAGE IDPA Care Teams Board Worker Relationship Specialty Start Date End Date Iker Feldman MD PCP - General 06/09/16 Iker Feldman MD Family Medicine 03/26/17
--- OUTSIDE RECORDS SUMMARY | 2024-07-24 11:11 | XMS_ITS | Encounter Summary ---
Author Organization [facility] Address [address] [place] [address] Phone Care Team Providers Care Cotton Program Technician Name Role Phone Iker Feldman Primary Care Provider Juan Gresham MD Unavailable Hemant Delgado MD Unavailable Encounter Details Date Type Department Care Team (Late st Contact Info) Description 03/29/2021 [facility] 1 [place] [id number] Hemant Delgado MD #[address] [address] Social History Tobacco Use Types Packs/Day Years [...] COVID-19? No / Unsure 03/29/2021 2:[address] RAILWAY LINE INSTALLER documented as of this encounter Plan of Treatment Not on file documented as of this encounter Visit Diagnoses Not on filedocumented in this encounter Care Teams Cotton Program Technician Relationship Specialty Start Date End Date Iker Feldman [address] [facility] [place] [address] PCP - General Family Medicine 12/05/17 Juan Gresham MD [address] [facility] [address] [place] [address] Cardiovascular Disease - Cardiology 12/05/17 Hemant Delgado MD #2 [facility] [address] [place] [address] Consulting Physician Urology 01/19/22 documented as of this encounter
--- OUTSIDE RECORDS SUMMARY | 2024-07-24 11:11 | XMS_ITS | Clinical Summary ---
Author Organization [facility] Address [facility] [place] [address] Care Team Providers Care Desizing Machine Operator Name Role Phone Unavailable Primary Care Provider Unavailabl e Social History Tobacco Use Types Packs/Day Years Used Date Smoking Tobacco: Never Assessed Sex and Gender Information Value Date Recorded Sex Assigned at Not on file Legal Sex Male 5:28 PM CDT Gender Identity Not on file Sexual Orientation Not on file Plan of Treatment Health Maintenance Due Date Last Done Comments Colorectal Cancer Screening Colonoscopy (10 Years) 1953 Hepatitis C 1971 DTaP, Tdap and Td Vaccines ( 1 - Tdap) 1972 Pneumococcal Vaccine: 50+ Ye ars (1 of 1 - PCV) 2003 Zoster Vaccines (1 of 2) 2003 COVID-19 Vaccine ( - 2023-2 5 season) 2023 RSV Immunization or 60+ Years (1 - 1-dose 75+ series) 2028 Meningococcal B Vaccine Aged Out No l onger eligible based on patient's age to complete this topic Meningococcal Vaccine Aged Out No alexis caitlyn eligible based on patient's age to complete this topic RSV Immunizations Under 20 Months Aged Out No longer eligible based on patient's age to complete this topic
--- OUTSIDE RECORDS SUMMARY | 2024-07-24 11:11 | XMS_ITS | Clinical Summary ---
Author Organization [facility] Address [address] [place] [address] Phone Care Team Providers Care Bonsai Culturist Name Role Phone Iker Feldman Primary Care Provider [phone] Juan Gresham MD Unavailable Hemant Delgado MD Unavailable Allergies Active Allergy Reactions Criticality Noted Date Comments Ciprofloxacin Hives 08/21/2019 Other Other (see Comments) 12/05/2017 DARVOCET DIZZY PASSED OUT Medications VENTOLIN HFA 108 (90 Base) MCG/ACT Aerosol Solution take 1-2 Puffs by inhalation every 4 hours as needed. 8 Active ALPRAZolam (XANAX) 1 MG Tablet Take 1 mg by mouth nightly as needed. 0 8 Active atorvastatin (LIPITOR) 40 MG Tablet Take 40 mg by mouth daily. 8 Active carvedilol (COREG) 3.125 MG Tablet Take 3.125 mg by mouth 2 times daily. 1/2 TAB 8 Active clopidogrel (PLAVIX) 75 MG Tablet Take 75 mg by mouth daily. 8 Active HYDROcodone-lorene taminophen (NORCO) 10-325 MG Tablet Take 1 Tab by mouth every 6 hours as needed. 0 8 Active levothyroxine (SYNTHROID) 88 MCG Tablet Take 88 mcg by mouth daily. 8 Active lisinopril (PRINIVIL, ZESTRIL) 10 MG Tablet Take 10 mg by mouth nightly. 8 Active INCRUSE ELLIPTA 62.5 MCG/INH AEROSOL POWDER, BREATH ACTIVATED take 1 Puff by inhalation daily. 8 Active Aspirin 81 MG Tablet Take 81 mg by mouth daily. Active nitroGLYCERIN (NITROSTAT) 0.4 MG SL Tablet 0.4 mg by Sublingual route every 5 minutes as needed. Active ergocalciferol (VITAMIN D) 13917 UNIT Capsule Take 1 Capsule by mouth. TAKES EVERY OTHER Sunday HIS RAVEN REPORTED 9 Active sildenafil citrate (VIAGRA) 50 MG Tablet Take 50 mg by mouth as needed. 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 Immunizations Immunization Administration Dates Next Due Influenza Vaccine 12/14/2016,11/20/2015,12/16/19 15 Influenza Vaccine, Quadrivalent, PF 11/25/2019,0 11/15/2017 Influenza, High-dose, Quadrivalent 11/17/2020 Influenza, Seasonal, Injectable, Undefined 12/11 Influenza, Trivalent, Adjuvanted, PF 11/22/2018 Pneumococcal Vaccine Adult - 23 Valent 4 Zoster Vaccine Recombinant 04/06/2019,02/04/2019 Family History Medical History Relation Name Comments Cancer Father COLON Colon Cancer Father Heart Disease Father Heart Disease Mother Rashes/Skin Problems Mother Relation Name Status Comments Father Mother Social History Tobacco Use Types Packs/Day Years Used Date Smoking Tobacco: Every Day Pipe Last attempted to quit: 12/12/1997 Cigars Last attempted to quit: 12/12/1997 Smokeless Tobacco: Never Tobacco Cessation:Ready to Q uit: No; Counseling Given: Yes Comments:QUIT CIGARETTES IN 98 SMOKES PIPE X3 DAILY Alcohol Use Standard Drinks/Week Comments No 0 (1 standard drink = 0.6 oz pur e alcohol) NO LONGER DRINKS Sexually Active Control Partners Comments Not Currently Female Sex and Gender Information Value Date Recorded Sex Assigned at Not on file Legal Sex Male 11:21 AM CDT Gender Identity Not on file Sexual Orientation Not on file Last Filed Vital Signs Vital Sign Reading Time Taken Comments Blood Pressure 138/74 01/19/2022 8:53 AM TOPOGRAPHY TECHNICIAN Pulse 54 01/19/2022 8:53 AM TOPOGRAPHY TECHNICIAN Temperature 36.4 C (97.6 F) 01/19/2022 8:53 AM TOPOGRAPHY TECHNICIAN Respiratory Rate 18 01/19/2022 8:53 AM TOPOGRAPHY TECHNICIAN Oxygen Saturation 98% 01/19/2022 8:53 AM TOPOGRAPHY TECHNICIAN Inhaled Oxygen Concentration - - Weight 72.2 kg (159 lb 3.2 oz) 01/19/2022 8:53 A M TOPOGRAPHY TECHNICIAN Height 174 cm (5' 8.5 ) 09/16/2021 11:49 AM CDT Body Mass Index 23.85 09/16/2021 11:49 AM CDT Plan of Treatment Health Maintenance Due Date Last Done Comments Hepatitis C Virus (HCV) Screening 1955 TdaP Immunization 1955 Colonoscopy 1998 Colorectal Cancer Screening 1998 Cologuard 2003 Immunochemical Fecal Occult Blood 2003 Pneumococcal Immunization (50+ years) (2 of 2 - PCV) 03/09/2015 03/09/2014 Influenza Immunization (#1) 11/11/202311/10, 11/17/2020, 11/25/2019, Additional history exists SARS-COV-2 Immunization ( season) 2023 12/30/2021, 05/09/2021, 12/10/2020, Additional history exists Respiratory Syncytial Virus (RSV) Immunization (Adult) (1 - 1-dose 75+ series) 2028 Pneumococcal Immunization Combined Discontinued 03/09/2014 PSA Discussion Discontinued 09/18/2017, 03/12/2000 Zoster Immunization Completed 04/06/2019, 9 Hepatitis B Immunization Aged Out No longer eligible based on patient's age to complete this topic Meningococcal Immunization (ACWY) Aged Out No longer eligible based on patient's age to complete this topic Rotavirus Immunization Aged Out No lo nger eligible based on patient's age to complete this topic Medical Devices Implanted Type Area Campaign Marketing Specialist Device Identifier Shelf Expiration Date Model / Serial / Lot Stent Ureteral 6fr 2.1fr 26cm 2 Pigtail Curve 2 Durometer Taper Tip Loprfl Graduated Polaris Ultra - [id number] Implanted:Qty : 1 on 03/19/2018 by Viviana Junior MD at [facility] IMPLANT Right: Ureter [employer] 10/03/2020 [id number] 0 / [id number] 0 / [id number] Stent Ureteral 6fr 2.1fr 24cm 2 Pigtail Curve 2 Durometer Taper Tip Loprfl Graduated Polaris Ultra - [id number] Implanted:Qty : 1 on 04/29/2021 by Hemant Delgado MD at [facility] IMPLANT Left: Ureter [employer] 01/12/2024 [id number] 0 / [id number] 0 / [id number] Stent Ureteral 6fr 2.1fr 24cm 2 Pigtail Curve 2 Durometer Taper Tip Loprfl Graduated Polaris Ultra - [id number] Implanted:Qty : 1 on 05/20/2021 by Hemant Delgado MD at [facility] IMPLANT Left: Ureter [employer] 02/04/2024 [id number] 0 / [id number] 0 / [id number] Stent Ureteral 6fr 2.1fr 24cm 2 Pigtail Curve 2 Durometer Taper Tip Loprfl Graduated Polaris Ultra - [id number] Implanted:Qty : 1 on 05/20/2021 by Hemant Delgado MD at [facility] IMPLANT Right: Ureter [employer] 02/04/2024 [id number] 0 / [id number] 0 / [id number] Stent Ureteral 6fr 2.1fr 28cm 2 Pigtail Curve 2 Durometer Taper Tip Loprfl Graduated Polaris Ultra - [id number] Implanted:Qty : 1 on 09/09/2021 by Hemant Delgado MD at [facility] IMPLANT Right: Ureter [employer] 02/08/2024 [id number] 0 / [id number] 0 / [id number] Explanted Type Area Campaign Marketing Specialist Device Identifier Shelf Expiration Date Model / Serial / Lot Stent Ureteral 6fr 2.1fr 24cm 2 Pigtail Curve 2 Durometer Taper Tip Loprfl Graduated [employer] Ultra - [id number] Implanted:Qty : 1 on 04/29/2021 by Hemant Delgado MD at [facility] Explanted:Qty : 1 on 05/20/2021 by Hemant Delgado MD at [facility] IMPLANT Right: Ureter [employer] 01/12/2024 [id number] 0 / [id number] 0 / [id number] Procedures Procedure Name Priority Date/Time Associated Diagnosis Comments PSA SCREEN Routine 09/18/2017 from Last 3 Months or Most Recently Relevant to Health Maintenance Results * PSA SCREEN (09/18/2017) PSA (PROSTATE SPECIFIC ANTIGEN) 0.4 ng/mL Blood specimen (specimen) 09/18/2017 Evaristo Ladd MD CHEMISTRY ORDERABLES Edited Res ult - Final from Last 3 Months or Most Recently Relevant to Health Maintenance Insurance MEDICAID [place] MEDICARE C [employer] Advance Directives Documents on File Type Date Recorded Patient [facility] Worker Expl anation Other Advance Directive 09/21/2021 3:35 PM procedure consent urology Other Advance Directive 06/22/2021 1:09 PM INSURANCE PRIOR AUTH FOR UROLOGY SURGERY 09/02/21 Advance Care Planning Discussion 06/10/2021 1:49 PM procedure consent /urology Other Advance Directive 05/19/2021 4:01 PM UROLOGY PRIOR AUTH Other Advance Directive 03/23/2021 2:41 PM INSURANCE PRIOR AUTH FOR SURGERY Other Advance Directive 03/23/2021 2:41 PM Medical Clearance fo r surgery Care Teams Bonsai Culturist Relationship Specialty Start Date End Date Iker Feldman [address] [place] [address] PCP - General Family Medicine 12/05/17 Juan Gresham MD [address] [facility] [address] [place] [address] Cardiovascular Disease - Cardiology 12/05/17 Hemant Delgado MD #2 [facility] [address] [place] [address] Consulting Physician Urology 01/19/22
== END 2024-07-24 11:07 | disposition home or self-care (01) ==
PROVIDERS: PCP Emergency Medicine; Visit Provider Emergency Medicine
DX: Z12.2 Encounter for screening for malignant neoplasm of respiratory organs (principal); Z87.891 Personal history of nicotine dependence
CPT/HCPCS: 71271

== ENCOUNTER 2024-08-25 08:31 | Outpatient (CLI) | payer MEDICARE, MEDICAID, SELFPAY ==
--- OUTSIDE RECORDS SUMMARY | 2024-08-25 08:44 | XMS_ITS | Referral Summary ---
Author Organization [facility] [place] [address] Address [address] [place] [address] Care Team Providers Care Photovoltaic Power Systems Engineer Name Role Phone Iker Feldman MD Primary Care Provider [phone] Iker Feldman MD Unavailable [phone] Encounters Date Type Department Care Team Description 08/19/[address] 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 operator before breakfast Active albuterol HFA (PROVENTIL HFA,VENTOLIN [...] needed for pain Active cholecalciferol (VITAMIN D-3) 58829 unit tablet Take 1 tablet (50,000 Units total) by mouth once a week Active carvediloL (COREG) 3.125 mg tabletIndications :Coronary artery disease involving [place] coronary artery of [place] heart without angina pectoris Take 1 tablet (3.125 mg total) by mouth 2 (two) times a day with meals 180 tablet 3 4 Active clopidogreL (PLAVIX) 75 mg tabletIndications :Coronary artery disease involving [place] coronary artery of [place] heart without angina pectoris Take 1 tablet (75 mg total) by mouth daily 90 tablet 3 4 Active atorvastatin (LIPITOR) 40 mg tabletIndications :Coronary artery disease involving [place] coronary artery of [place] heart without angina pectoris Take 1 tablet (40 mg total) by mouth daily 90 tablet 3 4 Active nitroglycerin (NITROSTAT) 0.4 mg SL tabletIndications :Coronary artery disease involving [place] coronary artery of [place] heart without angina pectoris Place 1 tablet (0.4 mg total) under the tongue every 5 (five) minutes as needed for chest pain Up to 3 doses 25 tablet 4 Active lisinopriL (PRINIVIL,ZESTRIL ) 10 mg tabletIndications :Coronary artery disease involving [place] coronary artery of [place] heart without angina pectoris TAKE ONE TABLET [...] on file Legal Sex Male 9:18 PM [employer] SELECT[employer] Gender Identity Not on file Sexual Orientation [...] 3:34 PM CDT Height 172.7 cm (5' 8) 11/01/2023 3:34 PM CDT Body Mass Index 24.94 11/01/2023 3:34 PM CDT Plan of Treatment Not on file Insurance IDPA [facility] MEDICARE ADVANTAGE [facility] MEDICARE ADVANTAGE IDPA Care Teams Photovoltaic Power Systems Engineer Relationship Specialty Start Date End Date Iker Feldman MD PCP - General 06/09/16 Iker Feldman MD Family Medicine 03/26/17
--- OUTSIDE RECORDS SUMMARY | 2024-08-25 08:44 | XMS_ITS | Encounter Summary ---
Author Organization [facility] Address [address] [place] [address] Phone Care Team Providers Care Fuel Attendant Name Role Phone Iker Feldman Primary Care Provider [phone] Juan Gresham MD Unavailable Hemant Delgado MD Unavailable Reason for Referral * Radiology Services (Routine) - Closed Specialty Diagnoses / Procedures Referred By Contac t Referred To Contact Radiology Diagnoses Pre-op testing Procedures EKG 12 LEAD Laurent Abebe APRN, CRNA Referral ID Status Reason Start Date Expiration Date Visits Re quested Visits Authorized [id number] Closed 03/29/2021 1 1 AR CARE TECHNICIAN Encounter Details Date Type Department Care Team (Latest Contact Info) Description 03/29/[address] [facility] Preop/Pacu II [address] [place] [id number] Laurent Abebe APRN, CRNA Pre-op testing (Primary [...] COVID-19? No / Unsure 03/29/2021 2:12 PM OCULAR CARE TECHNICIAN documented as of this encounter Plan of Treatment Not on file documented as of this encounter Results * HEMOGLOBIN & HEMATOCRIT (H&H) (04/25/2021 7:56 AM OCULAR CARE TECHNICIAN) HEMOGLOBIN (HGB) 14.7 13.0 - 16.5 g/dL 04/25/2021 8:12 AM OCULAR CARE TECHNICIAN [facility] HEM[facility] (HCT) 44.9 38.0 - 50.0 % 04/25/2021 8:12 AM OCULAR CARE TECHNICIAN [facility] Blood Venipuncture / Unknown 04/25/2021 7:56 AM OCULAR CARE TECHNICIAN 04/25/2021 8:07 AM OCULAR CARE TECHNICIAN us Laurent Abebe APRN, CRNA HEMATOLOGY ORDERAB LES Final Result [facility] [address] [place] [address] * (ABNORMAL) BASIC METABOLIC PANEL W/ CALCIUM TOTAL (04/25/2021 7:56 AM OCULAR CARE TECHNICIAN) SODIUM 133(L) 136 - 144 mmol/L 04/25/2021 8:32 AM OCULAR CARE TECHNICIAN [facility] POTASSIUM 4.6 3.5 - 5.1 mmol/L 04/25/2021 8:32 AM OCULAR CARE TECHNICIAN [facility] CHLORIDE 99(L) 100 - 110 mmol/L 04/25/2021 8:32 AM OCULAR CARE TECHNICIAN [facility] CO2, VENOUS 27 22 - 32 mmol/L 04/25/2021 8:32 AM OCULAR CARE TECHNICIAN [facility] ANION GAP 11.6 8.0 - 20.0 mmol/L 04/25/2021 8:32 AM [facility] GLUCOSE 111(H) 70 - 99 mg/dL 04/25/2021 8:32 AM [facility] BUN 11 8 - 23 mg/dL 04/25/2021 8:32 AM [facility] CREATININE, BLOOD 0.90 0.80 - 1.30 mg/dL 04/25/2021 8:32 AM [facility] BUN/CREATININE RATIO 12 12 - 20 ratio 04/25/2021 8:32 AM [facility] CALCIUM 9.4 8.9 - 10.3 mg/dL 04/25/2021 8:32 AM [facility] GFR, EST. NONAFRICAN >60 >=60 04/25/2021 8:32 AM [facility] GFR, EST. >60 >=60 04/25/2021 8:32 AM [facility] Comment: Creatinine Clearance is the preferred criteria for selecting drug dose adjustments in renally impaired patients. The GFR is provided as additional pertinent clinical information. GFR is reported in mL/min/1.73 sq m. IS THE PATIENT REQUIRED TO BE FASTING? No 04/25/2021 8:32 AM [facility] Blood Venipuncture / Unknown 04/25/2021 7:56 AM OCULAR CARE TECHNICIAN 04/25/2021 8:07 AM [facility] us Laurent Abebe PATHOLOGY TECH, CLAY DRY PRESS MIXER OPERATOR CHEMISTRY ORDERABL ES Final Result [facility] [address] [place] [address] * EKG 12 LEAD (04/25/2021 7:43 AM [facility]) Ventricular Rate BPM EXTERNAL EKG Atrial Rate BPM EXTERNAL EKG P-R Interval 194 ms EXTERNAL EKG QRS Duration 100 ms EXTERNAL EKG Q-T Duration 472 ms EXTERNAL EKG QTC CALCULATION 427 ms EXTERNAL EKG P [place] 79 degrees EXTERNAL EKG R [place] 49 degrees EXTERNAL EKG T [place] 67 degrees EXTERNAL EKG 04/25/2021 7:43 AM OCULAR CARE TECHNICIAN Impressions EXTERNAL EKG - 04/25/2021 9:08 AM OCULAR CARE TECHNICIAN Sinus bradycardia Abnormal R wave progression (?ASMI or lead location) Comparison Summary: Significant changes Summary: Abnormal ECG Compared with:03/27/2020 9:11 AM; 03/17/2019 9:55 AM No significant changes noted Confirmed by Lauren Mahmood [id number] on 04/25/2021 9:08:06 AM Narrative Procedure Note Sofia Aguilar MD - 04/25/2021 IMPRESSION: Sinus bradycardia Abnormal R wave progression (?ASMI or lead location) Comparison Summary: Significant changes Summary: Abnormal ECG Compared with:03/27/2020 9:11 AM; 03/17/2019 9:55 AM No significant changes noted Confirmed by Lauren Mahmood [id number] on 04/25/2021 9:08:06 AM us Laurent Nathanatzke PATHOLOGY TECH, CLAY DRY PRESS MIXER OPERATOR IMG ECG ORDERABLES Final Result Performing Organization Address City/State/[facility] Co de Phone Number EXTERNAL EKG documented in this encounter Visit Diagnoses Diagnosis Pre-op testing- Primary Preoperative examination, unspecified Pre-op testing Preoperative examination, unspecified documented in this encounter Care Teams Fuel Attendant Relationship Specialty Start Date End Date Iker Feldman [address] [place] [address] PCP - General Family Medicine 12/05/17 Juan Gresham MD [address] [facility] [address] [place] [address] Cardiovascular Disease - Cardiology 12/05/17 Hemant Delgado MD [address] [facility] [address] [place] [address] Consulting Physician Urology 01/19/22 documented as of this encounter
--- OUTSIDE RECORDS SUMMARY | 2024-08-25 08:44 | XMS_ITS | Continuity of Care Document ---
Author Organization [facility] Address [address] [place] [address] [place] [address] Phone Care Team Providers Care Professor Of Violin Name Role Phone Iker Feldman MD Unavailable Unavailable Allergies, Adverse Reactions, Alerts Substance Reaction Status Criticality PROPOXYPHENE NAPSYLATE Active No In formation acetaminophen Active No Information Medications Medication Instructions Dosage Effective Dates (start - stop) Status Comments hydrocodone 10 mg-acetaminophen 325 mg tablet take 1 by Oral route 4 times every day as needed 1 - Active PRn for pain, avoid driving or operate machines Xanax 1 mg tablet take 1 tablet by oral route every bedtime as needed 1 MG - Active PRN for insomnia and anxiety, avoid driving or operate machines Incruse Ellipta 62.5 mcg/actuation powder for inhalation inhale 1 puff by inhalation route every day at the same time each day 62.5 MCG - Active Synthroid 88 mcg tablet take 1 tablet by oral route every day 88 MCG - Active Ventolin HFA 90 mcg/actuation aerosol inhaler inhale 2 puff by inhalation route every 4 - 6 hours as needed as needed - Active PRN for sob Vitamin D2 1,250 mcg (50,000 unit) capsule take 1 capsule by oral route once every two week - Active naloxone 0.4 mg/mL injection solution inject 0.4 milliliter by IM route over once, may repeat at 2 to 3 minute intervals as needed - Active omeprazole 20 mg capsule,delayed release take 1 capsule by oral route every day before a meal 20 MG - Active Lipitor 20 mg tablet take 1 Tablet by oral route every day 20 MG - Active lisinopril 10 mg tablet take 1 tablet by oral route every day 10 MG - Active Plavix 75 mg tablet take 1 tablet by oral route every day 75 MG - Active Coreg 12.5 mg tablet take 1 tablet by oral route 2 times every day with food 12.5 MG - Active Procedures Procedure Date PREV VISIT, EST, 65 & OVER OFFICE/OUTPATIENT VISIT, EST OFFICE/OUTPATIENT VISIT, EST OFFICE/OUTPATIENT VISIT, EST OFFICE/OUTPATIENT VISIT, EST OFFICE/OUTPATIENT VISIT, EST OFFICE/OUTPATIENT VISIT, EST OFFICE/OUTPATIENT VISIT, EST OFFICE/OUTPATIENT VISIT, EST OFFICE/OUTPATIENT VISIT, EST OFFICE/OUTPATIENT VISIT, EST OFFICE/OUTPATIENT VISIT, EST OFFICE/OUTPATIENT VISIT, EST OFFICE/OUTPATIENT VISIT, EST OFFICE/OUTPATIENT VISIT, EST PREV VISIT, EST, 65 & OVER OFFICE/OUTPATIENT VISIT, EST OFFICE/OUTPATIENT VISIT, EST OFFICE/OUTPATIENT VISIT, EST OFFICE/OUTPATIENT VISIT, EST OFFICE/OUTPATIENT VISIT, EST OFFICE/OUTPATIENT VISIT, EST OFFICE/OUTPATIENT VISIT, EST OFFICE/OUTPATIENT VISIT, EST OFFICE/OUTPATIENT VISIT, EST OFFICE/OUTPATIENT VISIT, EST OFFICE/OUTPATIENT VISIT, EST OFFICE/OUTPATIENT VISIT, EST OFFICE/OUTPATIENT VISIT, EST OFFICE/OUTPATIENT VISIT, EST PREV VISIT, EST, 65 & OVER OFFICE/OUTPATIENT VISIT, EST OFFICE/OUTPATIENT VISIT, EST OFFICE/OUTPATIENT VISIT, EST OFFICE/OUTPATIENT VISIT, EST OFFICE/OUTPATIENT VISIT, EST OFFICE/OUTPATIENT VISIT, EST OFFICE/OUTPATIENT VISIT, EST OFFICE/OUTPATIENT VISIT, EST OFFICE/OUTPATIENT VISIT, EST OFFICE/OUTPATIENT VISIT, EST OFFICE/OUTPATIENT VISIT, EST OFFICE/OUTPATIENT VISIT, EST OFFICE/OUTPATIENT VISIT, EST PREV VISIT, EST, 65 & OVER OFFICE/OUTPATIENT VISIT, EST OFFICE/OUTPATIENT VISIT, EST OFFICE/OUTPATIENT VISIT, EST OFFICE/OUTPATIENT VISIT, EST OFFICE/OUTPATIENT VISIT, EST OFFICE/OUTPATIENT VISIT, EST OFFICE/OUTPATIENT VISIT, EST OFFICE/OUTPATIENT VISIT, EST OFFICE/OUTPATIENT VISIT, EST OFFICE/OUTPATIENT VISIT, EST OFFICE/OUTPATIENT VISIT, EST OFFICE/OUTPATIENT VISIT, EST OFFICE/OUTPATIENT VISIT, EST OFFICE/OUTPATIENT VISIT, EST PREV VISIT, EST, 65 & OVER OFFICE/OUTPATIENT VISIT, EST OFFICE/OUTPATIENT VISIT, EST OFFICE/OUTPATIENT VISIT, EST OFFICE/OUTPATIENT VISIT, EST OFFICE/OUTPATIENT VISIT, EST OFFICE/OUTPATIENT VISIT, EST OFFICE/OUTPATIENT VISIT, EST OFFICE/OUTPATIENT VISIT, EST OFFICE/OUTPATIENT VISIT, EST OFFICE/OUTPATIENT VISIT, EST OFFICE/OUTPATIENT VISIT, EST OFFICE/OUTPATIENT VISIT, EST OFFICE/OUTPATIENT VISIT, EST OFFICE/OUTPATIENT VISIT, EST OFFICE/OUTPATIENT VISIT, EST PREV VISIT, EST, 65 & OVER OFFICE/OUTPATIENT VISIT, EST OFFICE/OUTPATIENT VISIT, EST OFFICE/OUTPATIENT VISIT, EST OFFICE/OUTPATIENT VISIT, EST OFFICE/OUTPATIENT VISIT, EST OFFICE/OUTPATIENT VISIT, EST OFFICE/OUTPATIENT VISIT, EST OFFICE/OUTPATIENT VISIT, EST OFFICE/OUTPATIENT VISIT, EST OFFICE/OUTPATIENT VISIT, EST OFFICE/OUTPATIENT VISIT, EST OFFICE/OUTPATIENT VISIT, EST OFFICE/OUTPATIENT VISIT, EST OFFICE/OUTPATIENT VISIT, EST PREV VISIT, EST, AGE 40-64 OFFICE/OUTPATIENT VISIT, EST OFFICE/OUTPATIENT VISIT, EST OFFICE/OUTPATIENT VISIT, EST OFFICE/OUTPATIENT VISIT, EST OFFICE/OUTPATIENT VISIT, EST OFFICE/OUTPATIENT VISIT, EST OFFICE/OUTPATIENT VISIT, EST OFFICE/OUTPATIENT VISIT, EST OFFICE/OUTPATIENT VISIT, EST OFFICE/OUTPATIENT VISIT, EST OFFICE/OUTPATIENT VISIT, EST OFFICE/OUTPATIENT VISIT, EST OFFICE/OUTPATIENT VISIT, EST OFFICE/OUTPATIENT VISIT, EST PREV VISIT, EST, AGE 40-64 OFFICE/OUTPATIENT VISIT, EST OFFICE/OUTPATIENT VISIT, EST OFFICE/OUTPATIENT VISIT, EST OFFICE/OUTPATIENT VISIT, EST OFFICE/OUTPATIENT VISIT, EST OFFICE/OUTPATIENT VISIT, EST OFFICE/OUTPATIENT VISIT, EST OFFICE/OUTPATIENT VISIT, EST OFFICE/OUTPATIENT VISIT, EST OFFICE/OUTPATIENT VISIT, EST OFFICE/OUTPATIENT VISIT, EST OFFICE/OUTPATIENT VISIT, EST OFFICE/OUTPATIENT VISIT, EST OFFICE/OUTPATIENT VISIT, EST OFFICE/OUTPATIENT VISIT, EST OFFICE/OUTPATIENT VISIT, EST OFFICE/OUTPATIENT VISIT, EST OFFICE/OUTPATIENT VISIT, EST OFFICE/OUTPATIENT VISIT, EST OFFICE/OUTPATIENT VISIT, EST OFFICE/OUTPATIENT VISIT, EST OFFICE/OUTPATIENT VISIT, EST OFFICE/OUTPATIENT VISIT, EST OFFICE/OUTPATIENT VISIT, EST OFFICE/OUTPATIENT VISIT, EST OFFICE/OUTPATIENT VISIT, EST OFFICE/OUTPATIENT VISIT, EST OFFICE/OUTPATIENT VISIT, EST OFFICE/OUTPATIENT VISIT, EST OFFICE/OUTPATIENT VISIT, EST OFFICE/OUTPATIENT VISIT, EST OFFICE/OUTPATIENT VISIT, EST OFFICE/OUTPATIENT VISIT, EST OFFICE/OUTPATIENT VISIT, EST OFFICE/OUTPATIENT VISIT, EST OFFICE/OUTPATIENT VISIT, EST OFFICE/OUTPATIENT VISIT, EST OFFICE/OUTPATIENT VISIT, EST OFFICE/OUTPATIENT VISIT, EST OFFICE/OUTPATIENT VISIT, EST OFFICE/OUTPATIENT VISIT, EST OFFICE/OUTPATIENT VISIT, EST OFFICE/OUTPATIENT VISIT, EST OFFICE/OUTPATIENT VISIT, EST OFFICE/OUTPATIENT VISIT, EST OFFICE/OUTPATIENT VISIT, EST OFFICE/OUTPATIENT VISIT, EST OFFICE/OUTPATIENT VISIT, EST OFFICE/OUTPATIENT VISIT, EST OFFICE/OUTPATIENT VISIT, EST OFFICE/OUTPATIENT VISIT, EST OFFICE/OUTPATIENT VISIT, EST OFFICE/OUTPATIENT VISIT, EST OFFICE/OUTPATIENT VISIT, EST OFFICE/OUTPATIENT VISIT, EST OFFICE/OUTPATIENT VISIT, EST OFFICE/OUTPATIENT VISIT, EST OFFICE/OUTPATIENT VISIT, EST OFFICE/OUTPATIENT VISIT, EST OFFICE/OUTPATIENT VISIT, EST Advance Directives Directive Yes / No Effective Date File Name No Information Encounters Encounter Description Practice Location Reason(s) For Visit Diagnoses Date Provider Providers Copied on Encounter PREV VISIT, EST, 65 & OVER [facility], [address], [place], [place], [address], [place] tel:[phone] [facility] Medicine physical (chief complaint) Centrilobular emphysemaChron ic pain syndromeMalign ant neoplasm of bladder, unspecifiedHyp othyroidismMix ed hyperlipidemia Encounter for general adult medical exam w abnormal findingsCorona ry artery disease of [place] coronary artery w/o angina pectorisGERD without esophagitis Bebeto- 5 Gaston Pickett [address], [place], [place], [address] , [place]. [phone] OFFICE/OUTPA TIENT VISIT, [facility], [address], [place], [place], [address], [place] tel:[phone] [facility] pain (chief complaint)anxie ty1 (chief complaint)COPD1 (chief complaint) Chronic pain syndromePrimar y insomniaCentri lobular emphysemaPerso nal history of nicotine dependenceMali gnant neoplasm of bladder, unspecified July- 5 Gaston Pickett [address], [place], [place], [address] , [place]. [phone] OFFICE/OUTPA TIENT VISIT, [facility], [address] [place], [address], [place] tel:[phone] [facility] pain (chief complaint)anxie ty1 (chief complaint) Chronic pain syndromePrimar y insomnia Jun-0 5 Gaston Pickett [address], [place], [place], [address] , [place]. tel:[phone] OFFICE/OUTPA TIENT VISIT, [facility], [address] [place] [place] [address], [place] tel:[phone] [facility] pain (chief complaint)anxie ty1 (chief complaint) Chronic pain syndromePrimar y insomnia May-0 5 Gaston Dong. [address], [place], [place], [address] , [place]. tel:[phone] OFFICE/OUTPA TIENT VISIT, [facility], [address], [place], [place], [address], [place] tel:[phone] [facility] pain (chief complaint)anxie ty1 (chief complaint)COPD1 (chief complaint) Chronic pain syndromeCentri lobular emphysemaPrima ry insomnia Fe-0 5 Gaston Dong. [address], [place], [place], [address] , [place]. tel:[phone] OFFICE/OUTPA TIENT VISIT, [facility], [address], [place], [place], [address], [place] tel:[phone] [facility] pain (chief complaint)anxie ty1 (chief complaint)thyro id1 (chief complaint) Chronic pain syndromePrimar y insomniaHypoth yroidism 5 Gaston Dong. [address], [place], [place], [address] , [place]. tel:[phone] OFFICE/OUTPA TIENT VISIT, [facility], [address], [place], [place], [address], [place] tel:[phone] [facility] pain (chief complaint)anxie ty1 (chief complaint) Chronic pain syndromePrimar y insomnia 4 Gaston Dong. [address], [place], [place], [address] , [place]. tel:[phone] OFFICE/OUTPA TIENT VISIT, [facility], [address], [place], [place], [address], [place] tel:[phone] [facility] pain (chief complaint)anxie ty1 (chief complaint)COPD1 (chief complaint) Chronic pain syndromePrimar y insomniaCentri lobular emphysema 4 Gaston Dong. [address], [place], [place], [address] , [place]. tel:[phone] OFFICE/OUTPA TIENT VISIT, [facility], [address], [place], [place], [address], [place] tel:[phone] [facility] pain (chief complaint)anxie ty1 (chief complaint) Chronic pain syndromePrimar y insomnia 4 Feldman Iker. [address], [place], [place], [address] , [place]. tel:[phone] OFFICE/OUTPA TIENT VISIT, [facility], [address], [place], [place], [address], [place] tel:[phone] [facility] pain (chief complaint)anxie ty1 (chief complaint) Chronic pain syndromePrimar y insomnia 4 Feldman Ikre. [address], [place], [place], [address] , [place]. tel:[phone] OFFICE/OUTPA TIENT VISIT, [facility], [address], [place], [place], [address], [place] tel:[phone] [facility] pain (chief complaint)anxie ty1 (chief complaint)COPD1 (chief complaint) Centrilobular emphysemaChron ic pain syndromePrimar y insomnia 4 Feldman Iker. [address], [place], [place], [address] , [place]. tel:[phone] OFFICE/OUTPA TIENT VISIT, [facility], [address], [place], [place], [address], [place] tel:[phone] [facility] pain (chief complaint)anxie ty1 (chief complaint) Chronic pain syndromePrimar y insomnia 4 Feldman Iker. [address], [place], [place], [address] , [place]. tel:[phone] OFFICE/OUTPA TIENT VISIT, [facility], [address], [place], [place], [address], [place] tel:[phone] [facility] pain (chief complaint)anxie ty1 (chief complaint)COPD1 (chief complaint)bladd er Ca (chief complaint) Centrilobular emphysemaChron ic pain syndromePrimar y insomniaMalign ant neoplasm of bladder, unspecified Bebeto- 4 Gaston Dong. [address], [place], [place], [address] , [place]. tel:[phone] OFFICE/OUTPA TIENT VISIT, [facility], [address], [place], [place], [address], [place] tel:[phone] [facility] pain (chief complaint)anxie ty (chief complaint)thyro id1 (chief complaint)HLP (chief complaint) Chronic pain syndromeHypoth yroidismMixed hyperlipidemia Primary insomniaCentri lobular emphysema 4 Gaston Dong. [address], [place], [place], [address] , [place]. tel:[phone] PREV VISIT, EST, 65 & OVER [facility], [address], [place], [place], [address], [place] tel:[phone] [facility] physical (chief complaint) Encounter for general adult medical exam w abnormal findingsCentri lobular emphysemaChron ic pain syndromePrimar y insomniaHypoth yroidismMalign ant neoplasm of bladder, unspecifiedGER D w/o esophagitisCor onary artery disease of [place] coronary artery w/o angina pectoris 4 Gaston Dong. [address], [place], [place], [address] , [place]. tel:[phone] OFFICE/OUTPA TIENT VISIT, [facility], [address], [place], [place], [address], [place] tel:[phone] [facility] pain (chief complaint)anxie ty1 (chief complaint) Chronic pain syndromePrimar y insomnia May- 4 Gaston Dong. [address], [place], [place], [address] , [place]. tel:[phone] OFFICE/OUTPA TIENT VISIT, [facility], [address], [place], [place], [address], [place] tel:[phone] [facility] pain (chief complaint)anxie ty1 (chief complaint)COPD1 (chief complaint) Centrilobular emphysemaChron ic pain syndromePrimar y insomnia 4 Feldman Iker. [address], [place], [place], [address] , [place]. tel:[phone] OFFICE/OUTPA TIENT VISIT, [facility], [address], [place], [place], [address], [place] tel:[phone] [facility] pain (chief complaint)anxie y1 (chief complaint)hypot hyroidism1 (chief complaint) Hypothyroidism Chronic pain syndromePrimar y insomnia 4 Gaston Dong. [address], [place], [place], [address] , [place]. tel:[phone] OFFICE/OUTPA TIENT VISIT, [facility], [address], [place], [place], [address], [place] tel:[phone] [facility] pain (chief complaint)anxie ty1 (chief complaint) Chronic pain syndromePrimar y insomnia 3 Feldman Iker. [address], [place], [place], [address] , [place]. tel:[phone] OFFICE/OUTPA TIENT VISIT, [facility], [address], [place], [place], [address], [place] tel:[phone] [facility] pain (chief complaint)pain (chief complaint)anxie ty1 (chief complaint) Chronic pain syndromePrimar y insomnia 3 Feldman Iker. [address], [place], [place], [address] , [place]. tel:[phone] OFFICE/OUTPA TIENT VISIT, [facility], [address], [place], [place], [address], [place] tel:[phone] [facility] pain (chief complaint)anxie ty1 (chief complaint) Chronic pain syndromePrimar y insomnia 0 3 Gaston Pickett [address], [place], [place], [address] , [place]. [phone] OFFICE/OUTPA TIENT VISIT, [facility], [address] [place] [place], [address], [place] tel:[phone] [facility] pain (chief complaint)anxie ty1 (chief complaint)hypot hyroidism1 (chief complaint) Chronic pain syndromePrimar y insomniaHypoth yroidism 3 Gaston Pickett [address] [place], [place], [address] , . tel:[phone] OFFICE/OUTPA TIENT VISIT, [facility], [address] [place], [place], [address], tel:[phone] [facility] pain (chief complaint)anxie ty1 (chief complaint) Chronic pain syndromePrimar y insomnia Nov-0 3 Gaston Pickett [address] [place], [address] , [place]. [phone] OFFICE/OUTPA TIENT VISIT, [facility], [address] [place], [address], [place] tel:[phone] [facility] PAIN (chief complaint)anxie ty1 (chief complaint)bladd er CA1 (chief complaint) Chronic pain syndromePrimar y insomniaMalign ant neoplasm of bladder, unspecifiedAcq uired renal cystCentrilobu lar emphysema Oct- 3 Gaston Pickett [address] [place], [address] , [place]. [phone] OFFICE/OUTPA TIENT VISIT, [facility], [address] [place], [place], [address], [place] tel:[phone] [facility] pain (chief complaint)anxie ty1 (chief complaint)GERD1 (chief complaint) Cervantes's esophagus without dysplasiaChron ic pain syndromePrimar y insomnia 3 Gaston Pickett [address], [place], [place], [address] , [place]. tel:[phone] OFFICE/OUTPA TIENT VISIT, [facility], [address], [place], [place], [address], [place] tel:[phone] [facility] pain (chief complaint)anxie ty1 (chief complaint)hemae mesis1 (chief complaint)kidne y tumor1 (chief complaint) HematemesisChr onic pain syndromePrimar y insomniaMalign ant neoplasm of bladder, unspecified 3 Gaston Pickett [address], [place], [place], [address] , [place]. [phone] OFFICE/OUTPA TIENT VISIT, [facility], [address], [place], [place], [address], [place] tel:[phone] [facility] hematemesis1 (chief complaint) HematemesisBar rett's esophagus without dysplasiaAther osclerotic heart disease of [place] coronary artery without angina pectoris 3 Gaston Pickett [address], [place], [place], [address] , [place]. [phone] OFFICE/OUTPA TIENT VISIT, [facility], [address], [place], [place], [address], [place] tel:[phone] [facility] pain (chief complaint)insom nia1 (chief complaint) Chronic pain syndromePrimar y insomnia 3 Gaston Pickett [address], [place], [place], [address] , [place]. tel:[phone] PREV VISIT, EST, 65 & OVER [facility], [address], [place], [place], [address], [place] tel:[phone] [facility] physical (chief complaint) Encounter for general adult medical exam w abnormal findingsHypoth yroidismChroni c pain syndromeCentri lobular emphysemaEleva palomo prostate specific antigen [PSA]Asymptoma tic microscopic hematuriaMixed hyperlipidemia Cervantes's esophagus without dysplasiaPrima ry insomnia 3 Gaston Pickett [address], [place], [place], [address] , [place]. tel:[phone] OFFICE/OUTPA TIENT VISIT, [facility], [address], [place], [place], [address], [place] tel:[phone] [facility] pain (chief complaint)insom nia1 (chief complaint)HTN (chief complaint)thyro id1 (chief complaint)bladd er CA (chief complaint) Chronic pain syndromePrimar y insomniaHypoth yroidismEssent ial (primary) hypertensionMi xed hyperlipidemia Malignant neoplasm of bladder, unspecified 3 Gaston Pickett [address], [place], [place], [address] , [place]. tel:[phone] OFFICE/OUTPA TIENT VISIT, [facility], [address], [place], [place], [address], [place] tel:[phone] [facility] pain (chief complaint)insom nia1 (chief complaint)kidne y1 (chief complaint)COPD1 (chief complaint) Chronic pain syndromePrimar y insomniaOther specified disorder of kidneyCentrilo bular emphysema 3 Gaston Pickett [address], [place], [place], [address] , [place]. tel:[phone] OFFICE/OUTPA TIENT VISIT, [facility], [address], [place], [place], [address], [place] tel:[phone] [facility] pain (chief complaint)insom nia1 (chief complaint)tobac co1 (chief complaint)bladd er CA1 (chief complaint) Chronic pain syndromePrimar y insomniaMalign ant neoplasm of bladder, unspecifiedTob acco use 3 Gaston Pickett [address], [place], [place], [address] , [place]. tel:[phone] OFFICE/OUTPA TIENT VISIT, [facility], [address], [place], [place], [address], [place] tel:[phone] [facility] pain (chief complaint)insom nia1 (chief complaint) Chronic pain syndromePrimar y insomnia 2 Feldman Iker. [address], [place], [place], [address] , [place]. tel:[phone] OFFICE/OUTPA TIENT VISIT, [facility], [address], [place], [place], [address], [place] tel:[phone] [facility] pain (chief complaint)insom nia1 (chief complaint) Chronic pain syndromePrimar y insomnia 2 Feldman Iker. [address], [place], [place], [address] , [place]. tel:[phone] OFFICE/OUTPA TIENT VISIT, [facility], [address], [place], [place], [address], [place] tel:[phone] [facility] pain (chief complaint)insom nia1 (chief complaint)barre tt1 (chief complaint) Chronic pain syndromePrimar y insomniaBarret t's esophagus without dysplasiaMalig nant neoplasm of bladder, unspecified 2 Feldman Iker. [address], [place], [place], [address] , [place]. tel:[phone] OFFICE/OUTPA TIENT VISIT, [facility], [address], [place], [place], [address], [place] tel:[phone] [facility] pain (chief complaint)insom nia1 (chief complaint)COPD1 (chief complaint)thyro id1 (chief complaint) Chronic pain syndromeBarret t's esophagus without dysplasiaPrima ry insomniaHypoth yroidismCentri lobular emphysema 2 Feldman Iker. [address], [place], [place], [address] , [place]. tel:[phone] OFFICE/OUTPA TIENT VISIT, [facility], [address], [place], [place], [address], [place] tel:[phone] [facility] pain (chief complaint)insom nia1 (chief complaint)CAD (chief complaint) Coronary artery disease of [place] coronary artery w/o angina pectorisChroni c pain syndromePrimar y insomnia 2 Feldman Iker. [address], [place], [place], [address] , [place]. tel:[phone] OFFICE/OUTPA TIENT VISIT, [facility], [address], [place], [place], [address], [place] tel:[phone] [facility] pain (chief complaint)insom nia1 (chief complaint) Chronic pain syndromePrimar y insomnia 2 Feldman Iker. [address], [place], [place], [address] , [place]. tel:[phone] OFFICE/OUTPA TIENT VISIT, [facility], [address], [place], [place], [address], [place] tel:[phone] [facility] pain (chief complaint)insom nia1 (chief complaint) Chronic pain syndromePrimar y insomnia 2 Feldman Iker. [address], [place], [place], [address] , [place]. tel:[phone] OFFICE/OUTPA TIENT VISIT, [facility], [address], [place], [place], [address], [place] tel:[phone] [facility] pain (chief complaint)insom nia1 (chief complaint)[place] tt1 (chief complaint)renal CA (chief complaint) Polyp of colonBarrett's esophagus without dysplasiaInsom niaChronic pain syndromeCa of left kidney, except renal pelvis 2 Feldman Iker. [address], [place], [place], [address] , [place]. tel:[phone] OFFICE/OUTPA TIENT VISIT, [facility], [address], [place], [place], [address], [place] tel:[phone] [facility] pain (chief complaint)insom nia1 (chief complaint)vitam in D (chief complaint)colon polyp (chief complaint)emphy sema1 (chief complaint) Chronic pain syndromeInsomn iaVitamin D deficiencyPoly p of colonEmphysema 2 Gaston Dong. [address], [place], [place], [address] , [place]. tel:[phone] PREV VISIT, EST, 65 & OVER [facility], [address], [place], [place], [address], [place] tel:[phone] [facility] physical (chief complaint) Hyperlipidemia Chronic pain syndromeMalign ant neoplasm of bladder, unspecifiedBar rett's esophagus without dysplasiaEmphy semaFolate deficiencyHypo calcemiaHypoth yroidismInsomn iaEncounter for general adult medical exam w abnormal findings 2 Gaston Dong. [address], [place], [place], [address] , [place]. tel:[phone] OFFICE/OUTPA TIENT VISIT, [facility], [address], [place], [place], [address], [place] tel:[phone] [facility] pain (chief complaint)insom nia1 (chief complaint)bladd er tumor1 (chief complaint)thyro id1 (chief complaint)CAD1 (chief complaint) Chronic pain syndromeInsomn iaMalignant neoplasm of bladder, unspecifiedHyp erlipidemiaHyp othyroidism 2 Gaston Iker. [address], [place], [place], [address] , [place]. tel:[phone] OFFICE/OUTPA TIENT VISIT, [facility], [address], [place], [place], [address], [place] tel:[phone] [facility] pain (chief complaint)bladd er CA (chief complaint)tobac co (chief complaint)insom nia1 (chief complaint)GERD1 (chief complaint) Chronic pain syndromeInsomn iaBarrett's esophagus without dysplasiaMalig nant neoplasm of bladder, unspecifiedTob acco use 2 Gaston Pickett [address], [place], [place], [address] , [place]. tel:[phone] OFFICE/OUTPA TIENT VISIT, [facility], [address] [place], [address], [place] tel:[phone] [facility] pain (chief complaint)insom nia1 (chief complaint)tobac co1 (chief complaint)bladd er CA (chief complaint)GERD1 (chief complaint) Malignant neoplasm of bladder, unspecifiedIns omniaChronic pain syndromeTobacc o useBarrett's esophagus without dysplasia 1 Gaston Pickett [address], [place], [place], [address] , [place]. tel:[phone] OFFICE/OUTPA TIENT VISIT, [facility], [address], [place], [place], [address], [place] tel:[phone] [facility] pain (chief complaint)insom nia1 (chief complaint)GERD1 (chief complaint)bladd er CA1 (chief complaint) InsomniaChroni c pain syndromeBarret t's esophagus without dysplasiaMalig nant neoplasm of bladder, unspecified 1 Gaston Pickett [address], [place], [place], [address] , [place]. tel:[phone] OFFICE/OUTPA TIENT VISIT, [facility], [address], [place], [place], [address], [place] tel:[phone] [facility] pain (chief complaint)insom nia1 (chief complaint)thyro id1 (chief complaint)bladd er CA (chief complaint) InsomniaHypoth yroidismMalign ant neoplasm of bladder, unspecifiedChr onic pain syndrome 1 Gaston Pickett [address], [place], [place], [address] , [place]. tel:[phone] OFFICE/OUTPA TIENT VISIT, EST [facility], [address], [place], [place], [address], tel:[phone] [facility] pain (chief complaint)insom nia1 (chief complaint)COPD1 (chief complaint)bladd er CA (chief complaint) InsomniaChroni c pain syndromeTobacc o useEmphysemaMa lignant neoplasm of bladder, unspecified 1 Gaston Pickett [address], [place], [place], [address] , [place]. tel:[phone] OFFICE/OUTPA TIENT VISIT, EST [facility], [address], [place], [place], [address], tel:[phone] [facility] pain (chief complaint)insom nia1 (chief complaint)tobac co1 (chief complaint) Chronic pain syndromeInsomn iaTobacco use 1 Gaston Pickett [address], [place], [place], [address] , [place]. tel:[phone] OFFICE/OUTPA TIENT VISIT, EST [facility], [address], [place], [place], [address], [place] tel:[phone] [facility] pain (chief complaint)insom nia1 (chief complaint)renal 1 (chief complaint) LeukocytosisAc warms [place] tribe renal failureHypokal emiaInsomniaCh ronic pain syndromeEssent ial (primary) hypertension 1 Gaston Pickett [address], [place], [place], [address] , [place]. tel:[phone] OFFICE/OUTPA TIENT VISIT, EST [facility], [address] [place], [address], tel:[phone] [facility] pain1 (chief complaint)insom nia1 (chief complaint)barre tt (chief complaint)weigh t loss1 (chief complaint) Chronic pain syndromeInsomn iaBarrett's esophagus without dysplasiaAbnor mal weight loss 1 Feldman Iker. [address], [place], [place], [address] , [place]. tel:[phone] OFFICE/OUTPA TIENT VISIT, [facility], [address], [place], [place], [address], [place] tel:[phone] [facility] pain (chief complaint)insom na1 (chief complaint) Chronic pain syndromeInsomn ia 0 1 Gaston Dong. [address], [place], [place], [address] , [place]. tel:[phone] OFFICE/OUTPA TIENT VISIT, [facility], [address], [place], [place], [address], [place] tel:[phone] [facility] pain (chief complaint)insom nia1 (chief complaint)vitam in D (chief complaint) Chronic pain syndromeInsomn iaVitamin D deficiency, unspecified 1 Gaston Dong. [address], [place], [place], [address] , [place]. tel:[phone] OFFICE/OUTPA TIENT VISIT, [facility], [address], [place], [place], [address], [place] tel:[phone] [facility] pain (chief complaint)insom nia1 (chief complaint) Chronic pain syndromeInsomn ia Jun-0 1 Gaston Dong. [address], [place], [place], [address] , [place]. tel:[phone] OFFICE/OUTPA TIENT VISIT, [facility], [address], [place], [place], [address], [place] tel:[phone] [facility] pain (chief complaint)insom nia1 (chief complaint)COPD1 (chief complaint) Chronic pain syndromeEmphys emaInsomnia May-0 1 Gaston Dong. [address], [place], [place], [address] , [place]. tel:[phone] PREV VISIT, EST, 65 & OVER [facility], [address], [place], [place], [address], tel:[phone] [facility] physical (chief complaint) Encounter for general adult medical exam w abnormal findingsChroni c pain syndromeEmphys emaInsomniaHyp othyroidismCor onary artery disease of [place] coronary artery w/o angina pectorisMalign ant neoplasm of bladder, unspecified 1 Gaston Dong. [address], [place], [place], [address] , [place]. tel:[phone] OFFICE/OUTPA TIENT VISIT, [facility], [address] [place], [address], [place] tel:[phone] [facility] pain (chief complaint)insom nia1 (chief complaint)COPD1 (chief complaint) EmphysemaChron ic pain syndromeInsomn ia Feb- 0 Gaston Dong. [address] [facility], [place], [place], [address] , [place]. tel:[phone] OFFICE/OUTPA TIENT VISIT, [facility], [address], [place], [place], [address], [place] tel:[phone] [facility] pain1 (chief complaint)insom nia1 (chief complaint)hypot hyroidism1 (chief complaint)HLP (chief complaint) Hypothyroidism Hyperlipidemia Chronic pain syndromeInsomn ia Feb-0 0 Gaston Dong. [address], [place], [place], [address] , [place]. tel:[phone] OFFICE/OUTPA TIENT VISIT, [facility], [address], [place], [place], [address], [place] tel:[phone] [facility] pain (chief complaint)insom nia1 (chief complaint)hypot hyroidism1 (chief complaint)CAD1 (chief complaint) Chronic pain syndromeInsomn iaCoronary artery disease of [place] coronary artery w/o angina pectorisHypoth yroidism Jan-0 0 Gaston Dong. [address], [place], [place], [address] , [place]. tel:[phone] OFFICE/OUTPA TIENT VISIT, [facility], [address], [place], [place], [address], [place] tel:[phone] [facility] pain (chief complaint)insom nia1 (chief complaint)tobac co1 (chief complaint) Chronic pain syndromeInsomn iaTobacco use 0 Feldman Iker. [address], [place], [place], [address] , [place]. [phone] OFFICE/OUTPA TIENT VISIT, [facility], [address], [place], [place], [address], [place] tel:[phone] [facility] pain (chief complaint)insom nia1 (chief complaint)tobac co (chief complaint)COPD1 (chief complaint) Chronic pain syndromeInsomn iaEmphysemaTob acco use 0 Feldman Iker. [address], [place], [place], [address] , [place]. [phone] OFFICE/OUTPA TIENT VISIT, [facility], [address], [place], [place], [address], [place] tel:[phone] [facility] pain (chief complaint)insom nia1 (chief complaint)tobac co1 (chief complaint) Chronic pain syndromeInsomn iaTobacco use 0 Feldman Iker. [address], [place], [place], [address] , [place]. [phone] OFFICE/OUTPA TIENT VISIT, [facility], [address], [place], [place], [address], [place] tel:[phone] [facility] pain (chief complaint)insom nia1 (chief complaint) Chronic pain syndromeInsomn iaMalignant neoplasm of bladder, unspecified 0 Feldman Iker. [address], [place], [place], [address] , [place]. [phone] OFFICE/OUTPA TIENT VISIT, [facility], [address], [place], [place], [address], [place] tel:[phone] [facility] pain1 (chief complaint)anxie ty1 (chief complaint)COPD1 (chief complaint)bladd er CA1 (chief complaint) Chronic pain syndromeInsomn iaEmphysemaMal ignant neoplasm of bladder, unspecified Bebeto-0 0 Gaston Pickett [address], [place], [place], [address] , [place]. tel:[phone] OFFICE/OUTPA TIENT VISIT, [facility], [address], [place], [place], [address], [place] tel:[phone] [facility] pain (chief complaint)anxie ty1 (chief complaint)D (chief complaint) InsomniaChroni c pain syndromeVitami n D deficiency, unspecified 0 0 Gaston Dong. [address], [place], [place], [address] , [place]. tel:[phone] OFFICE/OUTPA TIENT VISIT, [facility], [address], [place], [place], [address], [place] tel:[phone] [facility] pain (chief complaint)anxie ty1 (chief complaint) Chronic pain syndromeInsomn ia Apr-0 0 Gaston Pickett [address], [place], [place], [address] , [place]. tel:[phone] OFFICE/OUTPA TIENT VISIT, [facility], [address] [place], [address], [place] tel:[phone] [facility] pain1 (chief complaint)anxie ty1 (chief complaint)[place] tt1 (chief complaint)bladd er1 (chief complaint)HTn (chief complaint) Cervantes's esophagus without dysplasiaChron ic pain syndromeInsomn iaMalignant neoplasm of bladder, unspecifiedEss ential (primary) hypertension Mar-0 0 Gaston Pickett [address], [place], [place], [address] , [place]. tel:[phone] Referring Provider: Franky Dunham [facility] A, [place], [place], [address]. tel:[phone] OFFICE/OUTPA TIENT VISIT, [facility], [address] [place], [address], tel:[phone] [facility] copd (chief complaint)pain1 (chief complaint)anxie ty1 (chief complaint)[place] tt1 (chief complaint)CAD (chief complaint) InsomniaBarret t's esophagus without dysplasiaChron ic pain syndromeEmphys emaCoronary artery disease of [place] coronary artery w/o angina pectoris 0 Gaston Dong. [address] [facility] [place], [place], [address] , [place]. tel:[phone] Referring Provider: Franky Dunham [facility], [place], [place], [address]. tel:[phone] OFFICE/OUTPA TIENT VISIT, [facility], [address] [place] [address] [address] [place], [address], [place] tel:[phone] [facility] anxiety1 (chief complaint)pain (chief complaint)bladd er CA (chief complaint)[place] tt1 (chief complaint)COPD1 (chief complaint) Malignant neoplasm of bladder, unspecifiedEmp hysemaBarrett' s esophagus without dysplasiaChron ic pain syndromeInsomn ia 0 Gaston Dong. [address] [facility] [place], [address] , [place]. tel:[phone] Referring Provider: Franky Dunham [facility] A, [place], [place], [address]. tel:[phone] OFFICE/OUTPA TIENT VISIT, [facility], [address] [employer] [place], [place], [address], [place] tel:[phone] [facility] chronic pain1 (chief complaint)anxie ty1 (chief complaint)HTN (chief complaint)bladd er CA (chief complaint) Chronic pain syndromeMalign ant neoplasm of bladder, unspecifiedIns omniaEssential (primary) hypertensionCo ronary artery disease of [place] coronary artery w/o angina pectoris 9 Gaston Dong. [address], [place], [place], [address] , [place]. tel:[phone] Referring Provider: Franky Dunham [address], [place], [place], [address]. tel:[phone] PREV VISIT, EST, 65 & OVER [facility], [address], [place], [place], [address], [place] tel:[phone] [facility] physical (chief complaint) Encounter for general adult medical exam w abnormal findingsEmphys emaBarrett's esophagus without dysplasiaMalig nant neoplasm of bladder, unspecifiedChr onic pain syndromeHypoth yroidismCorona ry artery disease of [place] coronary artery w/o angina pectoris 9 Gaston Dong. [address], [place], [place], [address] , [place]. tel:[phone] Referring Provider: Franky Dunham [address], [place], [place], [address]. tel:[phone] OFFICE/OUTPA TIENT VISIT, EST [facility], [address] [place], [address], [place] tel:[phone] [facility] chronic pain1 (chief complaint)insom nia1 (chief complaint)COPD (chief complaint)HTN (chief complaint) EmphysemaChron ic pain syndromeInsomn iaCoronary artery disease of [place] coronary artery w/o angina pectoris 9 Gaston Dong. [address], [place], [place], [address] , [place]. tel:[phone] OFFICE/OUTPA TIENT VISIT, EST [facility], [address] [place], [place], [address], [place] tel:[phone] [facility] emphysema1 (chief complaint)chron ic pain1 (chief complaint)insom nia1 (chief complaint)GERD1 (chief complaint) EmphysemaChron ic pain syndromeInsomn iaBarrett's esophagus without dysplasia 9 Feldman Iker. [address], [place], [place], [address] , [place]. tel:[phone] OFFICE/OUTPA TIENT VISIT, [facility], [address], [place], [place], [address], [place] tel:[phone] [facility] chronic pain1 (chief complaint)insom nia1 (chief complaint) Chronic pain syndromeInsomn ia Aug 9 Gaston Dong. [address], [place], [place], [address] , [place]. tel:[phone] OFFICE/OUTPA TIENT VISIT, [facility], [address], [place], [place], [address], [place] tel:[phone] [facility] chronic pain1 (chief complaint)insom nia1 (chief complaint)COPD1 (chief complaint)bladd er tumor1 (chief complaint) Chronic pain syndromeInsomn iaEmphysemaMal ignant neoplasm of bladder, unspecified 9 Gaston Dong. [address], [place], [place], [address] , [place]. [phone] OFFICE/OUTPA TIENT VISIT, [facility], [address], [place], [place], [address], [place] tel:[phone] [facility] chronic pain (chief complaint)anxie ty1 (chief complaint)bladd er CA (chief complaint)lung (chief complaint) Chronic pain syndromeInsomn iaScreening for lung caMalignant neoplasm of bladder, unspecified 9 Gaston Dong. [address], [place], [place], [address] , [place]. tel:[phone] Referring Provider: Iker Feldman [address], [place], [place], [address]. tel:[phone] OFFICE/OUTPA TIENT VISIT, [facility], [address], [place], [place], [address], [place] tel:[phone] [facility] vitamin D1 (chief complaint)thyro id1 (chief complaint)chron ic pain1 (chief complaint)insom nia1 (chief complaint) Hypothyroidism InsomniaChroni c pain syndromeVitami n D deficiency, unspecified 9 Gaston Dong. [address], [place], [place], [address] , [place]. tel:[phone] Referring Provider: Franky Dunham [address], [place], [place], [address]. tel:[phone] OFFICE/OUTPA TIENT VISIT, [facility], [address], [place], [place], [address], [place] tel:[phone] [facility] chronic pain (chief complaint)insom nia1 (chief complaint) Chronic pain syndromeInsomn ia 9 Gaston Dong. [address], [place], [place], [address] , [place]. tel:[phone] Referring Provider: Franky Dunham [address], [place], [place], [address]. tel:[phone] OFFICE/OUTPA TIENT VISIT, [facility], [address], [place], [place], [address], [place] tel:[phone] [facility] chronci pain1 (chief complaint)hypot hyroidism1 (chief complaint)CAD1 (chief complaint)lung (chief complaint) Chronic pain syndromeHypoth yroidismCorona ry artery disease of [place] coronary artery w/o angina pectorisScreen ing for lung caInsomnia 9 Gaston Dong. [address], [place], [place], [address] , [place]. tel:[phone] Referring Provider: Franky Dunham [address], [place], [place], [address]. tel:[phone] OFFICE/OUTPA TIENT VISIT, [facility], [address], [place], [place], [address], [place] tel:[phone] [facility] chronic pain1 (chief complaint)insom nia1 (chief complaint) Chronic pain syndromeInsomn ia 9 Gaston Dong. [address], [place], [place], [address] , [place]. tel:[phone] Referring Provider: Franky Dunham [address], [place], [place], [address]. tel:[phone] OFFICE/OUTPA TIENT VISIT, [facility], [address] [place], [place], [address], [place] tel:[phone] [facility] CAD1 (chief complaint)[place] tt1 (chief complaint)bladd er tumor1 (chief complaint)chron ic pain1 (chief complaint)insom nia1 (chief complaint) Cervantes's esophagus without dysplasiaChron ic pain syndromeCorona ry artery disease of [place] coronary artery w/o angina pectorisEmphys emaInsomnia 9 Gaston Dong. [address], [place], [place], [address] , [place]. tel:[phone] Referring Provider: Franky Dunham [address], [place], [place], [address]. tel:[phone] OFFICE/OUTPA TIENT VISIT, [facility], [address] [place], [place], [address], [place] tel:[phone] [facility] chronic pain (chief complaint)insom nia1 (chief complaint)bladd er CA1 (chief complaint) Chronic pain syndromeInsomn iaMalignant neoplasm of bladder, unspecified 8 Gaston Dong. [address], [place], [place], [address] , [place]. tel:[phone] Referring Provider: Franky Dunham [address], [place], [place], [address]. tel:[phone] OFFICE/OUTPA TIENT VISIT, [facility], [address], [place], [place], [address], [place] tel:[phone] [facility] chronic pain (chief complaint)anxie ty1 (chief complaint)renal lesion (chief complaint)[place] tt (chief complaint) InsomniaMalign ant neoplasm of bladder, unspecifiedChr onic pain syndromeBarret t's esophagus without dysplasia 8 Gaston Dong. [address], [place], [place], [address] , [place]. tel:[phone] Referring Provider: Franky Dunham [address], [place], [place], [address]. tel:[phone] OFFICE/OUTPA TIENT VISIT, EST [facility], [address], [place], [place], [address], [place] tel:[phone] [facility] thyroid1 (chief complaint)chron ic pain1 (chief complaint)insom nia1 (chief complaint)COPD1 (chief complaint)bladd er tumor1 (chief complaint) EmphysemaInsom niaOther cystic kidney diseasesHypoth yroidismChroni c pain syndrome 8 Gaston Pickett [address], [place], [place], [address] , [place]. tel:[phone] Referring Provider: Franky Dunham [address], [place], [place], [address]. tel:[phone] PREV VISIT, EST, AGE 40-64 [facility], [address] [place], [place], [address], [place] tel:[phone] [facility] Physical (chief complaint) Encounter for general adult medical exam w abnormal findingsChroni c pain syndromeInsomn iaMalignant neoplasm of bladder, unspecifiedCor onary artery disease of [place] coronary artery w/o angina pectorisHypoth yroidismEmphys zuleima 8 Gaston [address], [place], [place], [address] , [place]. tel:[phone] Referring Provider: Franky Dunham [facility] A, [place], [place], [address]. tel:[phone] OFFICE/OUTPA TIENT VISIT, EST [facility], [address], [place], [place], [address], [place] tel:[phone] [facility] bladder CA (chief complaint)kidne y cyst1 (chief complaint)chron ic pain1 (chief complaint)insom nia1 (chief complaint) Malignant neoplasm of bladder, unspecifiedOth er cystic kidney diseasesChroni c pain syndromeInsomn ia 8 Gaston Dong. [address], [place], [place], [address] , [place]. tel:[phone] Referring Provider: Franky Dunham [address], [place], [place], [address]. tel:[phone] OFFICE/OUTPA TIENT VISIT, [facility], [address] [place], [place], [address], [place] tel:[phone] [facility] chronic pain1 (chief complaint)anxie ty1 (chief complaint)COPD1 (chief complaint)renal 1 (chief complaint) EmphysemaChron ic pain syndromeBladde r disorder, unspecifiedIns omnia 8 Gaston Pickett [address], [place], [place], [address] , [place]. tel:[phone] OFFICE/OUTPA TIENT VISIT, [facility], [address] [place], [place], [address], [place] tel:[phone] [facility] kidney1 (chief complaint)chron ic pain (chief complaint)insom nia1 (chief complaint) Chronic pain syndromeBladde r disorder, unspecifiedOth er cystic kidney diseases 8 Gaston Pickett [address], [place], [place], [address] , [place]. tel:[phone] Referring Provider: Franky Dunham [address], [place], [place], [address]. tel:[phone] OFFICE/OUTPA TIENT VISIT, [facility], [address] [place], [place], [address], [place] tel:[phone] [facility] hypothyroidism (chief complaint)HLP (chief complaint)chron ic pain1 (chief complaint)insom nia1 (chief complaint) Hypothyroidism Hyperlipidemia Chronic pain syndromeInsomn ia 8 Gaston Dong. [address], [place], [place], [address] , [place]. tel:[phone] Referring Provider: Franky Dunham [address], [place], [place], [address]. tel:[phone] OFFICE/OUTPA TIENT VISIT, [facility], [address], [place], [place], [address], [place] tel:[phone] [facility] chronic pain (chief complaint)insom nia1 (chief complaint)CAD1 (chief complaint)COPD1 (chief complaint) Chronic pain syndromeCorona ry artery disease of [place] coronary artery w/o angina pectorisInsomn iaTobacco use 8 Gaston Dong. [address], [place], [place], [address] , [place]. tel:[phone] [id number] Referring Provider: Franky Dunham [address], [place], [place], [address]. tel:[phone] OFFICE/OUTPA TIENT VISIT, [facility], [address], [place], [place], [address], [place] tel:[phone] [facility] chronic pain (chief complaint)insom nia1 (chief complaint)tobac co1 (chief complaint) Chronic pain syndromeInsomn iaTobacco use May-3 8 Gaston Dong. [address], [place], [place], [address] , [place]. tel:[phone] OFFICE/OUTPA TIENT VISIT, [facility], [address], [place], [place], [address], [place] tel:[phone] [facility] chronic pain1 (chief complaint)anxie ty1 (chief complaint)tobac co1 (chief complaint)[place] tt (chief complaint) Cervantes's esophagus without dysplasiaInsom niaChronic pain syndromeEmphys zuleima May-0 8 Gaston Dong. [address], [place], [place], [address] , [place]. tel:[phone] Referring Provider: Franky Dunham [address], [place], [place], [address]. tel:[phone] OFFICE/OUTPA TIENT VISIT, [facility], [address], [place], [place], [address], [place] tel:[phone] [facility] chronic pain1 (chief complaint)insom nia1 (chief complaint) InsomniaChroni c pain syndrome 8 Gaston Dong. [address], [place], [place], [address] , [place]. tel:[phone] OFFICE/OUTPA TIENT VISIT, [facility], [address], [place], [place], [address], [place] tel:[phone] [facility] COPD1 (chief complaint)chron ic pain1 (chief complaint)insom nia1 (chief complaint)barre tt1 (chief complaint) Cervantes's esophagus without dysplasiaEmphy semaInsomniaCh ronic pain syndrome 8 Gaston Dong. [address], [place], [place], [address] , [place]. tel:[phone] Referring Provider: Franky Dunham [address], [place], [place], [address]. tel:[phone] OFFICE/OUTPA TIENT VISIT, [facility], [address], [place], [place], [address], [place] tel:[phone] [facility] sob (chief complaint)chron ic pain1 (chief complaint)insom nia1 (chief complaint) EmphysemaInsom niaChronic pain syndrome 7 aGston Dong. [address], [place], [place], [address] , [place]. tel:[phone] Referring Provider: Franky Dunham [address], [place], [place], [address]. tel:[phone] OFFICE/OUTPA TIENT VISIT, [facility], [address], [place], [place], [address], [place] tel:[phone] [facility] chrnoic pain (chief complaint)anxei ty1 (chief complaint) Chronic pain syndromeInsomn ia Nov- 7 Gaston Pickett [address], [place], [place], [address] , [place]. tel:[phone] Referring Provider: Franky Dunham [address], [place], [place], [address]. tel:[phone] OFFICE/OUTPA TIENT VISIT, EST [facility], [address], [place], [place], [address], [place] tel:[phone] [facility] chronic pain1 (chief complaint)anxie ty1 (chief complaint)thyro id1 (chief complaint)[place] tt1 (chief complaint) InsomniaHypoth yroidismBarret t's esophagus without dysplasiaChron ic pain syndrome Dec- 7 Gaston Pickett [address], [place], [place], [address] , [place]. [phone] Referring Provider: Franky Dunham [facility] [address], [place], [place], [address]. tel:[phone] OFFICE/OUTPA TIENT VISIT, [facility], [address] [place], [address], [place] tel:[phone] [facility] chronic pain (chief complaint)anxie ty1 (chief complaint)ED (chief complaint) Chronic pain syndromeInsomn iaMale erectile dysfunction, unspecified Sep-0 7 [address], [place], [place], [address] , [place]. [phone] Referring Provider: Franky Dunham [facility] [address], [place], [place], [address]. tel:[phone] PREV VISIT, EST, AGE 40-64 [facility], [address], [place], [place], [address], [place] tel:[phone] [facility] Physical (chief complaint) Encounter for general adult medical exam w abnormal findingsHypoth yroidismInsomn iaAtherosclero tic heart disease of [place] coronary artery without angina pectoris 7 Gaston Dong. [address], [place], [place], [address] , [place]. tel:[phone] Referring Provider: Franky Dunham [address], [place], [place], [address]. tel:[phone] OFFICE/OUTPA TIENT VISIT, [facility], [address], [place], [place], [address], [place] tel:[phone] [facility] Cervantes (chief complaint)insom nia1 (chief complaint)chron ic pain1 (chief complaint)CAD (chief complaint) Cervantes's esophagus without dysplasiaChron ic pain syndromeAthero sclerotic heart disease of [place] coronary artery without angina pectorisInsomn ia Gaston Dong. [address], [place], [place], [address] , [place]. tel:[phone] Referring Provider: Franky Dunham [address], [place], [place], [address]. tel:[phone] OFFICE/OUTPA TIENT VISIT, [facility], [address], [place], [place], [address], [place] tel:[phone] [facility] chronic pain1 (chief complaint)insom nia1 (chief complaint) Chronic pain syndromeInsomn ia 7 Gaston Dong. [address], [place], [place], [address] , [place]. tel:[phone] Referring Provider: Franky Dunham [address], [place], [place], [address]. tel:[phone] OFFICE/OUTPA TIENT VISIT, [facility], [address], [place], [place], [address], [place] tel:[phone] [facility] CAD (chief complaint)thyro id1 (chief complaint)hep C (chief complaint)chron ic pain1 (chief complaint)anxie ty1 (chief complaint) Hypothyroidism Atheroscleroti c heart disease of [place] coronary artery without angina pectorisInsomn iaHepatitis C 7 Gaston Dong. [address], [place], [place], [address] , [place]. tel:[phone] Referring Provider: Franky Dunham [facility] A, [place], [place], [address]. tel:[phone] OFFICE/OUTPA TIENT VISIT, [facility], [address], [place], [place], [address], [place] tel:[phone] [facility] chronic pain (chief complaint)insom nia1 (chief complaint)hep C (chief complaint)HLP (chief complaint) InsomniaHyperl ipidemiaEncoun ter for screening for other viral diseasesHypoth yroidism 7 Gaston Dong. [address], [place], [place], [address] , [place]. tel:[phone] Referring Provider: Franky Dunham [facility] A, [place], [place], [address]. tel:[phone] OFFICE/OUTPA TIENT VISIT, [facility], [address] [place] [place], [address], [place] tel:[phone] [facility] emphysema1 (chief complaint)chron ic pain (chief complaint)insom nia1 (chief complaint)CAD1 (chief complaint) COPDInsomniaCh ronic pain syndromeAthero sclerotic heart disease of [place] coronary artery without angina pectoris 7 Gaston Pickett [address], [place], [place], [address] , [place]. tel:[phone] Referring Provider: Franky Dunham [address], [place], [place], [address]. tel:[phone] OFFICE/OUTPA TIENT VISIT, [facility], [address] [place], [address], [place] tel:[phone] [facility] chronic pain1 (chief complaint)insom nia1 (chief complaint)CAD (chief complaint)tobac co1 (chief complaint) InsomniaTobacc o useChronic pain syndromeAthero sclerotic heart disease of [place] coronary artery without angina pectoris 7 Gaston Dong. [address], [place], [place], [address] , [place]. tel:[phone] Referring Provider: Franky Dunham [address], [place], [place], [address]. tel:[phone] OFFICE/OUTPA TIENT VISIT, [facility], [address], [place], [place], [address], [place] tel:[phone] [facility] chronic pain (chief complaint)insom nia1 (chief complaint)tobac co1 (chief complaint) Chronic pain syndromeInsomn iaTobacco use 7 Gaston Dong. [address], [place], [place], [address] , [place]. tel:[phone] Referring Provider: Franky Dunham [address], [place], [place], [address]. tel:[phone] OFFICE/OUTPA TIENT VISIT, [facility], [address], [place], [place], [address], [place] tel:[phone] [facility] chronic pain1 (chief complaint)anxie ty1 (chief complaint)ED (chief complaint)GERD1 (chief complaint) Cervantes's esophagus without dysplasiaChron ic pain syndromeInsomn iaMale erectile dysfunction, unspecified 6 Gaston Pickett [address], [place], [place], [address] , [place]. tel:[phone] Referring Provider: Franky Dunham [address], [place], [place], [address]. tel:[phone] OFFICE/OUTPA TIENT VISIT, [facility], [address], [place], [place], [address], [place] tel:[phone] [facility] chronic pain (chief complaint)anxie ty1 (chief complaint) Chronic pain syndromeInsomn ia 6 Gaston Dong. [address], [place], [place], [address] , [place]. tel:[phone] Referring Provider: Franky Dunham [address], [place], [place], [address]. tel:[phone] OFFICE/OUTPA TIENT VISIT, [facility], [address], [place], [place], [address], [place] tel:[phone] [facility] chronic pain (chief complaint)anxie ty1 (chief complaint)hypot hyroidism (chief complaint)HTN (chief complaint) Chronic pain syndromeInsomn iaEssential (primary) hypertensionHy pothyroidism 6 Gaston Dong. [address], [place], [place], [address] , [place]. tel:[phone] Referring Provider: Franky Dunham [address], [place], [place], [address]. tel:[phone] OFFICE/OUTPA TIENT VISIT, [facility], [address], [place], [place], [address], [place] tel:[phone] [facility] chronic pain1 (chief complaint)anxie ty1 (chief complaint)GERD1 (chief complaint)HTN (chief complaint) Chronic pain syndromeBarret t's esophagus without dysplasiaEssen tial (primary) hypertensionAn xiolytic dependence 6 Gaston Dong. [address], [place], [place], [address] , [place]. tel:[phone] Referring Provider: Franky Dunham [address], [place], [place], [address]. tel:[phone] OFFICE/OUTPA TIENT VISIT, [facility], [address], [place], [place], [address], [place] tel:[phone] [facility] chronic pain (chief complaint)anxie ty1 (chief complaint) Chronic pain syndromeAnxiol ytic dependence 6 Gaston Dong. [address], [place], [place], [address] , [place]. tel:[phone] Referring Provider: Franky Dunham [address], [place], [place], [address]. tel:[phone] OFFICE/OUTPA TIENT VISIT, [facility], [address] [place], [address], [place] tel:[phone] [facility] CAD (chief complaint)HLP (chief complaint)hypot hyroidism (chief complaint)chron ic pain (chief complaint) Atheroscleroti c heart disease of [place] coronary artery without angina pectorisAnxiol ytic dependenceHype rlipidemiaChro flores pain syndrome 6 Gaston Dong. [address], [place], [place], [address] , [place]. [phone] Referring Provider: Franky Dunham [facility] A, [place], [place], [address]. tel:[phone] OFFICE/OUTPA TIENT VISIT, [facility], [address] [place], [address], tel:[phone] [facility] chronic pain (chief complaint)insom nia1 (chief complaint)ED1 (chief complaint) Chronic pain syndromeInsomn iaOther male erectile dysfunctionCor onary artery disease of [place] coronary artery w/o angina pectoris 6 Gaston Dong. [address], [place], [place], [address] , [place]. tel:[phone] Referring Provider: Franky Dunham [facility] A, [place], [place], [address]. tel:[phone] OFFICE/OUTPA TIENT VISIT, [facility], [address] [place], [address], [place] tel:[phone] [facility] chronic pain (chief complaint)anxie ty1 (chief complaint) Chronic pain syndromeAnxiol ytic dependence 6 Gaston Dong. [address], [place], [place], [address] , [place]. tel:[phone] Referring Provider: Franky Dunham [facility] [address], [place], [place], [address]. tel:[phone] OFFICE/OUTPA TIENT VISIT, [facility], [address], [place], [place], [address], [place] tel:[phone] [facility] chronic pain (chief complaint)anxie ty1 (chief complaint)barre tt (chief complaint)CAD (chief complaint) Chronic pain syndromeBarret t's esophagus without dysplasiaCoron william artery disease of [place] coronary artery w/o angina pectorisEncoun ter for screening for malignant neoplasm of prostate Jun-2 6 Gaston Dong. [address], [place], [place], [address] , [place]. [phone] Referring Provider: Franky Dunham [facility] [address], [place], [place], [address]. tel:[phone] OFFICE/OUTPA TIENT VISIT, [facility], [address], [place], [place], [address], [place] tel:[phone] [facility] chronic pain (chief complaint)anxie ty1 (chief complaint)dizzi ness (chief complaint)anemi a1 (chief complaint) AnemiaDizzines sChronic pain syndrome Apr-0 6 Gaston Dong. [address], [place], [place], [address] , [place]. [phone] Referring Provider: Franky Dunham [address], [place], [place], [address]. tel:[phone] OFFICE/OUTPA TIENT VISIT, [facility], [address], [place], [place], [address], [place] tel:[phone] [facility] chronic pain (chief complaint)anxie ty1 (chief complaint) Other insomniaChroni c pain syndrome Mar-0 6 Gaston Dong. [address], [place], [place], [address] , [place]. [phone] Referring Provider: Franky Dunham [address], [place], [place], [address]. tel:[phone] OFFICE/OUTPA TIENT VISIT, [facility], [address], [place], [place], [address], [place] tel:[phone] [facility] GERD1 (chief complaint)HLP1 (chief complaint)chron ic pain (chief complaint)insom nia1 (chief complaint) Hyperlipidemia Chronic pain syndromeGERD without esophagitisHyp othyroidism Fe 6 Gaston Dong. [address], [place], [place], [address] , [place]. tel:[phone] Referring Provider: Franky Dunham [address], [place], [place], [address]. tel:[phone] OFFICE/OUTPA TIENT VISIT, [facility], [address], [place], [place], [address], [place] tel:[phone] [facility] chronic pain (chief complaint)anxie ty1 (chief complaint)GERD1 (chief complaint)CAD (chief complaint) Chronic pain syndromeOther insomniaCorona ry artery disease of [place] coronary artery without angina pectorisHyperl ipidemia 5 Gaston Dong. [address], [place], [place], [address] , [place]. tel:[phone] Referring Provider: Franky Dunham [address], [place], [place], [address]. tel:[phone] OFFICE/OUTPA TIENT VISIT, [facility], [address], [place], [place], [address], [place] tel:[phone] [facility] right ankle pain (chief complaint)anxie ty1 (chief complaint) Chronic pain syndromeOther insomnia 5 Gaston Dong. [address], [place], [place], [address] , [place]. tel:[phone] Referring Provider: Franky Dunham [address], [place], [place], [address]. tel:[phone] OFFICE/OUTPA TIENT VISIT, [facility], [address], [place], [place], [address], [place] tel:[phone] [facility] ankle pain1 (chief complaint)insom nia1 (chief complaint) Secondary osteoarthritis , right ankle and footOther insomnia Dec-3 0 5 Gaston Dong. [address], [place], [place], [address] , [place]. tel:[phone] Referring Provider: Franky Dunham [address], [place], [place], [address]. tel:[phone] OFFICE/OUTPA TIENT VISIT, [facility], [address], [place], [place], [address], [place] tel:[phone] [facility] ankle pain (chief complaint)insom alverto (chief complaint)CAD (chief complaint)gastr ic ulcer (chief complaint) Pain in right ankleOpioid dependence, uncomplicatedH ypertensive heart disease without heart failureChronic gastric ulcer without hemorrhage or perforationTob acco use Dec- 5 Gaston Dong. [address], [place], [place], [address] , [place]. tel:[phone] Referring Provider: Franky Dunham [address], [place], [place], [address]. tel:[phone] OFFICE/OUTPA TIENT VISIT, [facility], [address], [place], [place], [address], [place] tel:[phone] [facility] HTN (chief complaint)gastr ic ulcer (chief complaint)insom alverto (chief complaint)hypot hyroidism (chief complaint) Insomnia, unspecifiedUns pecified hypothyroidism Unspecified essential hypertensionAc warms springs tribe gastric ulcer without mention of hemorrhage or perforation, with obstruction Nov-0 5 Gaston Dong. [address], [place], [place], [address] , [place]. tel:[phone] Referring Provider: Franky Dunham [address], [place], [place], [address]. tel:[phone] OFFICE/OUTPA TIENT VISIT, [facility], [address], [place], [place], [address], [place] tel:[phone] [facility] pain (chief complaint)anxie ty (chief complaint)hypot hyroidism (chief complaint)gERD (chief complaint) Insomnia, unspecifiedUns pecified hypothyroidism Unspecified essential hypertension 5 Gaston Pickett [address], [place], [place], [address] , [place]. [phone] Referring Provider: Franky Dunham [address], [place], [place], [address]. tel:[phone] OFFICE/OUTPA TIENT VISIT, [facility], [address], [place], [place], [address], [place] tel:[phone] [facility] chronic apin (chief complaint)anxie ty (chief complaint) Other chronic pain 5 Gaston Pickett [address], [place], [place], [address] , [place]. [phone] Referring Provider: Franky Dunham [address], [place], [place], [address]. tel:[phone] OFFICE/OUTPA TIENT VISIT, [facility], [address], [place], [place], [address], [place] tel:[phone] [facility] chronic pain (chief complaint)anxie ty (chief complaint) Ankle pain 5 Gaston Pickett [address], [place], [place], [address] , [place]. [phone] Referring Provider: Franky Dunham [address], [place], [place], [address]. tel:[phone] OFFICE/OUTPA TIENT VISIT, [facility], [address], [place], [place], [address], [place] tel:[phone] [facility] chronic pain (chief complaint)anxie ty (chief complaint)hypot hyroidism (chief complaint) Hypothyroidism Pain in joint involving lower legInsomnia, OtherScreening for malignant neoplasms of the prostate 5 Gaston Pickett [address], [place], [place], [address] , [place]. tel:[phone] Referring Provider: Franky Dunham [address], [place], [place], [address]. tel:[phone] OFFICE/OUTPA TIENT VISIT, [facility], [address], [place], [place], [address], [place] tel:[phone] [facility] chronic pain (chief complaint)anxie ty (chief complaint)gastr ic ulcer (chief complaint)CAD (chief complaint) Insomnia, OtherCAD, [place] VesselAcute gastric ulcer without mention of hemorrhage or perforation, with obstructionOpi oid type dependence, unspecified use Apr-0 2 5 Gaston Dong. [address], [place], [place], [address] , [place]. tel:[phone] Referring Provider: Franky Dunham [address], [place], [place], [address]. tel:[phone] OFFICE/OUTPA TIENT VISIT, [facility], [address], [place], [place], [address], [place] tel:[phone] [facility] chronic pain (chief complaint)insom alverto (chief complaint) Insomnia, OtherPain in joint involving lower legOpioid type dependence, unspecified useSedative, hypnotic or anxiolytic dependence, unspecified Mar-0 2- 5 Gaston Pickett [address], [place], [place], [address] , [place]. tel:[phone] Referring Provider: Franky Dunham [address], [place], [place], [address]. tel:[phone] OFFICE/OUTPA TIENT VISIT, [facility], [address], [place], [place], [address], [place] tel:[phone] [facility] chornic pain (chief complaint)anxie ty (chief complaint)HLP (chief complaint)hypot hyroidism (chief complaint) Hypothyroidism Insomnia, OtherOther and unspecified hyperlipidemia Pain in joint involving lower leg Feb-0 2-201 5 Gaston Pickett [address], [place], [place], [address] , [place]. tel:[phone] Referring Provider: Franky Dunham [address], [place], [place], [address]. tel:[phone] OFFICE/OUTPA TIENT VISIT, [facility], [address], [place], [place], [address], [place] tel:[phone] [facility] GERD (chief complaint)chron ic pain (chief complaint)anxie ty (chief complaint)HLP (chief complaint) Hypothyroidism CAD, [place] VesselPain in joint involving lower legHypertensio n, Unspecified 5 Gaston Dong. [address], [place], [place], [address] , [place]. [phone] Referring Provider: Franky Dunham [address], [place], [place], [address]. tel:[phone] OFFICE/OUTPA TIENT VISIT, [facility], [address], [place], [place], [address], [place] tel:[phone] [facility] chronic pain (chief complaint)Anxie ty (chief complaint)HLP (chief complaint) Other and unspecified hyperlipidemia Pain in joint involving lower leg 4 Gaston Dong. [address], [place], [place], [address] , [place]. [phone] Referring Provider: Franky Dunham [address], [place], [place], [address]. tel:[phone] OFFICE/OUTPA TIENT VISIT, [facility], [address], [place], [place], [address], [place] tel:[phone] [facility] HLP (chief complaint)chron ic pain (chief complaint)anxie ty (chief complaint)HTN (chief complaint)CAD (chief complaint)GERD (chief complaint) Hypothyroidism CAD, [place] VesselHyperten jayleen, UnspecifiedCHR ONIC PAIN NEC 4 Gaston Pickett [address], [place], [place], [address] , [place]. tel:[phone] Referring Provider: Iker Feldman, [address], [place], [place], [address]. tel:[phone] OFFICE/OUTPA TIENT VISIT, [facility], [address], [place], [place], [address], [place] [phone] [facility] chronic pain (chief complaint)anxie ty (chief complaint) Hypothyroidism Pain in joint involving lower leg 4 Gaston Dong. [address], [place], [place], [address] , [place]. tel:[phone] Referring Provider: Franky Dunham [address], [place], [place], [address]. tel:[phone] OFFICE/OUTPA TIENT VISIT, [facility], [address], [place], [place], [address], [place] tel:[phone] [facility] chronic pain (chief complaint)anxie ty (chief complaint)GERD (chief complaint)CAD (chief complaint) Pain in joint involving lower legCAD, [place] VesselAcute gastric ulcer without mention of hemorrhage or perforation, with obstructionHyp othyroidism 4 Gaston Dong. [address] [address], [place], [place], [address] , [place]. tel:[phone] Referring Provider: Franky Dunham [address], [place], [place], [address]. tel:[phone] OFFICE/OUTPA TIENT VISIT, [facility], [address], [place], [place], [address], [place] [phone] [facility] Medicine chornic pain (chief complaint)anxie ty (chief complaint)HTN (chief complaint) CHRONIC PAIN NECHypertensio n, Unspecified 4 Gaston Dong. [address], [place], [place], [address] , [place]. tel:[phone] Referring Provider: Iker Feldman [address], [place], [place], [address]. tel:[phone] OFFICE/OUTPA TIENT VISIT, [facility], [address], [place], [place], [address], [place] tel:[phone] [facility] GERD (chief complaint)chorn ic pain (chief complaint)anxie ty (chief complaint) GERDCHRONIC PAIN NEC 4 Gaston Dong. [address], [place], [place], [address] , [place]. tel:[phone] Referring Provider: Iker Feldman, [address], [place], [place], [address]. tel:[phone] OFFICE/OUTPA TIENT VISIT, [facility], [address], [place], [place], [address], [place] tel:[phone] [facility] gastric ulcer (chief complaint)chorn ic pain (chief complaint)anxie ty (chief complaint)hypot hyroidism (chief complaint) Acute gastritis (without mention of hemorrhage)CHR ONIC PAIN NECPain in joint involving lower legHypothyroid ism 4 Gaston Dong. [address], [place], [place], [address] , [place]. tel:[phone] Referring Provider: Franky Dunham [address], [place], [place], [address]. tel:[phone] OFFICE/OUTPA TIENT VISIT, [facility], [address], [place], [place], [address], [place] tel:[phone] [facility] chornic pain (chief complaint)anxie ty (chief complaint)gastr ic ulcer (chief complaint)CAD (chief complaint) Acute gastric ulcer without mention of hemorrhage or perforation, with obstructionPai n in joint involving lower legCAD, [place] 4 Gaston Dong. [address], [place], [place], [address] , [place]. tel:[phone] Referring Provider: Franky Dunham [address], [place], [place], [address]. tel:[phone] OFFICE/OUTPA TIENT VISIT, [facility], [address], [place], [place], [address], [place] tel:[phone] [facility] HLP (chief complaint)CAD (chief complaint)hemat uria (chief complaint)chorn ic pain (chief complaint)anxie ty (chief complaint) Other and unspecified hyperlipidemia CAD, [place] VesselHEMATURI A NOSPain in joint involving lower leg 4 Gaston Dong. [address], [place], [place], [address] , [place]. tel:[phone] Referring Provider: Franky [address], [place], [place], [address]. tel:[phone] OFFICE/OUTPA TIENT VISIT, [facility], [address], [place], [place], [address], [place] tel:[phone] [facility] hematuria (chief complaint)hypot hyroidism (chief complaint)chron ic painPt (chief complaint) HEMATURIA NOSCHRONIC PAIN NECHypothyroid ism 4 Gaston Dong. [address], [place], [place], [address] , [place]. tel:[phone] Referring Provider: Franky [address], [place], [place], [address]. tel:[phone] OFFICE/OUTPA TIENT VISIT, [facility], [address], [place], [place], [address], [place] tel:[phone] [facility] chronic pain (chief complaint)HLP (chief complaint)Anxie ty (chief complaint)hemtu valerio (chief complaint) CHRONIC PAIN NECHypothyroid ismOther and unspecified hyperlipidemia HEMATURIA NOS 4 Gaston Dong. [address], [place], [place], [address] , [place]. [phone] Referring Provider: Franky [address], [place], [place], [address]. tel:[phone] OFFICE/OUTPA TIENT VISIT, [facility], [address], [place], [place], [address], [place] tel:[phone] [facility] CAD (chief complaint)chorn ic pain (chief complaint)anxie ty (chief complaint)Hypot hyroidism (chief complaint) Hypothyroidism CAD, [place]esselOther and unspecified hyperlipidemia CHRONIC PAIN NEC 4 Gaston Dong. [address], [place], [place], [address] , [place]. tel:[phone] Referring Provider: Franky Dunham [address], [place], [place], [address]. tel:[phone] OFFICE/OUTPA TIENT VISIT, [facility], [address], [place], [place], [address], [place] tel:[phone] [facility] chronic pain (chief complaint)anxie ty (chief complaint) CHRONIC PAIN NEC 3 Gaston Dong. [address], [place], [place], [address] , [place]. tel:[phone] Referring Provider: Franky Dunham [address], [place], [place], [address]. tel:[phone] OFFICE/OUTPA TIENT VISIT, [facility], [address], [place], [place], [address], [place] tel:[phone] [facility] chronic pain (chief complaint)anxie ty (chief complaint) CHRONIC PAIN NECHypothyroid ismOther and unspecified hyperlipidemia 3 Gaston Dong. [address], [place], [place], [address] , [place]. tel:[phone] Referring Provider: Franky [address], [place], [place], [address]. tel:[phone] OFFICE/OUTPA TIENT VISIT, [facility], [address], [place], [place], [address], [place] tel:[phone] [facility] hypothyroidism (chief complaint)Chron ic pain (chief complaint)anxie ty (chief complaint) Hypothyroidism Other and unspecified hyperlipidemia CAD, [place] 3 Gaston Dong. [address], [place], [place], [address] , [place]. [phone] Referring Provider: Franky [address], [place], [place], [address]. tel:[phone] OFFICE/OUTPA TIENT VISIT, [facility], [address], [place], [place], [address], [place] tel:[phone] [facility] chronic pain (chief complaint)anxie ty (chief complaint) CHRONIC PAIN NECHypothyroid ismOther and unspecified hyperlipidemia 3 Gaston Dong. [address], [place], [place], [address] , [place]. [phone] Referring Provider: Franky Dunham [address], [place], [place], [address]. tel:[phone] OFFICE/OUTPA TIENT VISIT, [facility], [address], [place], [place], [address], [place] tel:[phone] [facility] Hypothyroidism (chief complaint)CAD (chief complaint)chron ic pain (chief complaint) Hypothyroidism CAD, [place] VesselCHRONIC PAIN NEC 3 Gaston Dong. [address], [place], [place], [address] , [place]. [phone] Referring Provider: [address]y [address], [place], [place], [address]. tel:[phone] OFFICE/OUTPA TIENT VISIT, [facility], [address], [place], [place], [address], [place] tel:[phone] [facility] CAD (chief complaint)chron ic pain (chief complaint)anxie ty (chief complaint) CAD, [place] VesselCHRONIC PAIN NECInsomnia, Other 3 Gaston Dong. [address], [place], [place], [address] , [place]. [phone] Referring Provider: Iker Feldman, [address], [place], [place], [address]. tel:[phone] OFFICE/OUTPA TIENT VISIT, [facility], [address], [place], [place], [address], [place] [phone] [facility] CAD (chief complaint)Chron ic pain (chief complaint)anxie ty (chief complaint) CAD, [place] VesselCHRONIC PAIN NECHypothyroid ism Bebeto-0 3 Gaston Dong. [address], [place], [place], [address] , [place]. [phone] Referring Provider: Franky Dunham [address], [place], [place], [address]. tel:[phone] OFFICE/OUTPA TIENT VISIT, [facility], [address], [place], [place], [address], [place] [phone] [facility] chronic pain (chief complaint)anxie ty (chief complaint)Hypot hyroidism (chief complaint) Hypothyroidism CHRONIC PAIN NEC 0 3 Gaston Dong. [address], [place], [place], [address] , [place]. [phone] Referring Provider: Iker Feldman, [address], [place], [place], [address]. tel:[phone] OFFICE/OUTPA TIENT VISIT, [facility], [address], [place], [place], [address], [place] [phone] [facility] chornic pain (chief complaint)Anxie ty. (chief complaint)hypot hyroidism (chief complaint) Hypothyroidism CHRONIC PAIN NECRESTLESS LEGS SYNDROME Jun-0 3 Gaston Dong. [address], [place], [place], [address] , [place]. tel:[phone] Referring Provider: Franky Dunham [address], [place], [place], [address]. tel:[phone] OFFICE/OUTPA TIENT VISIT, [facility], [address], [place], [place], [address], [place] tel:[phone] [facility] chronic pain (chief complaint)viral (chief complaint)Anxie ty (chief complaint) Viral Infection, UnspecifiedCHR ONIC PAIN NECHypothyroid ism 3 Gaston Dong. [address], [place], [place], [address] , [place]. tel:[phone] Referring Provider: Iker Feldman, [address], [place], [place], [address]. tel:[phone] OFFICE/OUTPA TIENT VISIT, [facility], [address], [place], [place], [address], [place] tel:[phone] [facility] chronic pain (chief complaint)Anxie ty (chief complaint)hypot hyroidism (chief complaint)ED (chief complaint) Hypothyroidism CHRONIC PAIN NECErectile Dysfunction 3 Gaston Dong. [address], [place], [place], [address] , [place]. [phone] Referring Provider: Franky [address], [place], [place], [address]. tel:[phone] OFFICE/OUTPA TIENT VISIT, [facility], [address], [place], [place], [address], [place] tel:[phone] [facility] hypothyroidism (chief complaint)chron ic pain (chief complaint) CHRONIC PAIN NECHypothyroid ismRESTLESS LEGS SYNDROME 3 Gaston Dong. [address], [place], [place], [address] , [place]. tel:[phone] Referring Provider: Franky Dunham [address], [place], [place], [address]. tel:[phone] OFFICE/OUTPA TIENT VISIT, [facility], [address], [place], [place], [address], [place] tel:[phone] [facility] chronic pain (chief complaint)restl ess leg syndrome (chief complaint)anxie ty (chief complaint) CHRONIC PAIN NECRESTLESS LEGS SYNDROME 5 2 Gaston Dong. [address], [place], [place], [address] , [place]. tel:[phone] Referring Provider: Iker Feldman, [address], [place], [place], [address]. tel:[phone] OFFICE/OUTPA TIENT VISIT, [facility], [address], [place], [place], [address], [place] tel:[phone] [facility] chronic pain (chief complaint)restl ess leg (chief complaint) RESTLESS LEGS SYNDROMECHRONI C PAIN NEC 2 Gaston Dong. [address], [place], [place], [address] , [place]. [phone] Referring Provider: [facility]ham [facility] [place], [address]. tel:[phone] OFFICE/OUTPA TIENT VISIT, [facility], [address], [place], [place], [address], [place] tel:[phone] [facility] chornic pain (chief complaint)anxie ty (chief complaint)insom alverto (chief complaint) Insomnia, OtherCHRONIC PAIN NECRESTLESS LEGS SYNDROME 0 2 Gaston Dong. [address] [facility] [address] [place], [place], [address] , [place]. [phone] Referring Provider: Franky Dunham [facility], [place], [place], [address]. tel:[phone] Family History Family Member Type Diagnosis Age At Onset Father Problem (finding) Cancer - colon CA Mother Problem (finding) Alive and well Brother Problem (finding) Coronary artery disease Brother Problem (finding) Other Payers Payer name Insurance type Covered libertarian ID Authoriza ticlaudette(s) [facility] [id number] Social History Type Description Quantity Date Captured Comments Alcohol Use Details Caffeine Use Details Unknown Tobacco Use Status Heavy cigarette smoker Smoking Status Heavy tobacco smoker Sex Male Vital Signs Date / Time: Height Weight BMI Pulse Rate Blood Pressure Temperature Respiratory Rate Body Surface Area Head Circumference BMI percentile Pulse Ox Inhaled Ox 9:40 AM 68.00 in 160.80 lbs 24.4 5 kg/m eter (2) 58 /min 120/68 mm[Hg] 97.3 F 16 /min Chief Complaint And Reason For Visit From encounter dated '08/18/2024 09:40'. physical (chief complaint). Description: Pt needs annual physical .Pt has COPD Pt uses incruse and albuterol pt denies any worsening sob, any cough or hemoptysis. Pt has insomnia and anxiety Pt takesxanax qhs Pt has chronic pain Pt takes norco PRN for pain. Pt has CAD with stent Pt sees cardiology. Pt denies any chest pain. Pt has hypothyroidism Pt takes synthroid. 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 Pt takes omeprazole and doing ok. 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 Hedenies any urinary symptoms Plan Of Treatment Date Type Action Status Goal Abdominal ultrasound. Due on due Goal Sigmoidoscopy. Due on due Goal FOBT. Due on due Goal Influenza vaccine. Due on due Goal Zoster vaccine. Due on due Goal Td vaccine. Due on 25 due Goal Lipid panel. Due on 025 due Goal Pneumococcal vaccine. Due on due Goal Depression screening. Due on due Goal PSA. Due on due Goal Tdap. Due on due Goal Cognitive assessment. Due on due Goal Colonoscopy. Due on due Goal Colonoscopy. Due on due Goal Cognitive assessment. Due on due Goal Tdap. Due on due Goal PSA. Due on due Goal Depression screening. Due on due Goal Pneumococcal vaccine. Due on due Goal Abdominal ultrasound. Due on due Goal Sigmoidoscopy. Due on due Goal FOBT. Due on due Goal Influenza vaccine. Due on due Goal Zoster vaccine. Due on due Goal Td vaccine. Due on due Goal Lipid panel. Due on due Goal Lipid panel. Due on due Goal Td vaccine. Due on due Goal Zoster vaccine. Due on due Goal Influenza vaccine. Due on due Goal FOBT. Due on due Goal Colonoscopy. Due on due Goal Cognitive assessment. Due on due Goal Tdap. Due on due Goal PSA. Due on due Goal Depression screening. Due on due Goal Pneumococcal vaccine. Due on due Goal Abdominal ultrasound. Due on due Goal Sigmoidoscopy. Due on due Goal Sigmoidoscopy. Due on due Goal Abdominal ultrasound. Due on due Goal Pneumococcal vaccine. Due on due Goal Depression screening. Due on due Goal PSA. Due on due Goal Tdap. Due on due Goal Lipid panel. Due on due Goal Td vaccine. Due on due Goal Zoster vaccine. Due on due Goal Influenza vaccine. Due on due Goal FOBT. Due on due Goal Colonoscopy. Due on due Goal Cognitive assessment. Due on due Goal Cognitive assessment. Due on due Goal Colonoscopy. Due on due Goal FOBT. Due on due Goal Influenza vaccine. Due on due Goal Zoster vaccine. Due on due Goal Td vaccine. Due on due Goal Lipid panel. Due on due Goal Tdap. Due on due Goal PSA. Due on due Goal Depression screening. Due on due Goal Pneumococcal vaccine. Due on due Goal Abdominal ultrasound. Due on due Goal Sigmoidoscopy. Due on due Goal Sigmoidoscopy. Due on due Goal Abdominal ultrasound. Due on due Goal Pneumococcal vaccine. Due on due Goal Depression screening. Due on due Goal PSA. Due on due Goal Tdap. Due on due Goal Lipid panel. Due on due Goal Td vaccine. Due on due Goal Zoster vaccine. Due on due Goal Influenza vaccine. Due on due Goal FOBT. Due on due Goal Colonoscopy. Due on due Goal Cognitive assessment. Due on due Goal Cognitive assessment. Due on due Goal Colonoscopy. Due on due Goal FOBT. Due on due Goal Influenza vaccine. Due on due Goal Zoster vaccine. Due on due Goal Sigmoidoscopy. Due on due Goal Abdominal ultrasound. Due on due Goal Pneumococcal vaccine. Due on due Goal Depression screening. Due on due Goal PSA. Due on due Goal Tdap. Due on due Goal Lipid panel. Due on due Goal Td vaccine. Due on due Goal Td vaccine. Due on due Goal Lipid panel. Due on due Goal Tdap. Due on due Goal PSA. Due on due Goal Depression screening. Due on due Goal Pneumococcal vaccine. Due on due Goal Cognitive assessment. Due on due Goal Colonoscopy. Due on due Goal FOBT. Due on due Goal Influenza vaccine. Due on due Goal Zoster vaccine. Due on due Goal Sigmoidoscopy. Due on due Goal Abdominal ultrasound. Due on due Goal Abdominal ultrasound. Due on due Goal Sigmoidoscopy. Due on due Goal Zoster vaccine. Due on due Goal Influenza vaccine. Due on due Goal FOBT. Due on due Goal Td vaccine. Due on due Goal Lipid panel. Due on due Goal Tdap. Due on due Goal PSA. Due on due Goal Depression screening. Due on due Goal Pneumococcal vaccine. Due on due Goal Cognitive assessment. Due on due Goal Colonoscopy. Due on due Goal Abdominal ultrasound. Due on due Goal Sigmoidoscopy. Due on due Goal Zoster vaccine. Due on due Goal Influenza vaccine. Due on due Goal FOBT. Due on due Goal Td vaccine. Due on due Goal Lipid panel. Due on due Goal Tdap. Due on due Goal PSA. Due on due Goal Depression screening. Due on due Goal Pneumococcal vaccine. Due on due Goal Cognitive assessment. Due on due Goal Colonoscopy. Due on due Goal Abdominal ultrasound. Due on due Goal Sigmoidoscopy. Due on due Goal Zoster vaccine. Due on due Goal Influenza vaccine. Due on due Goal FOBT. Due on due Goal Td vaccine. Due on due Goal Lipid panel. Due on due Goal Tdap. Due on due Goal PSA. Due on due Goal Depression screening. Due on due Goal Pneumococcal vaccine. Due on due Goal Cognitive assessment. Due on due Goal Colonoscopy. Due on due Goal Colonoscopy. Due on due Goal Cognitive assessment. Due on due Goal Pneumococcal vaccine. Due on due Goal Depression screening. Due on due Goal PSA. Due on due Goal Tdap. Due on due Goal Abdominal ultrasound. Due on due Goal Sigmoidoscopy. Due on due Goal Zoster vaccine. Due on due Goal Influenza vaccine. Due on due Goal FOBT. Due on due Goal Td vaccine. Due on due Goal Lipid panel. Due on due Goal Lipid panel. Due on due Goal Td vaccine. Due on due Goal FOBT. Due on due Goal Influenza vaccine. Due on due Goal Zoster vaccine. Due on due Goal Sigmoidoscopy. Due on due Goal Abdominal ultrasound. Due on due Goal Tdap. Due on due Goal PSA. Due on due Goal Depression screening. Due on due Goal Pneumococcal vaccine. Due on due Goal Cognitive assessment. Due on due Goal Colonoscopy. Due on due Goal Abdominal ultrasound. Due on due Goal Sigmoidoscopy. Due on due Goal Zoster vaccine. Due on due Goal Influenza vaccine. Due on due Goal FOBT. Due on due Goal Td vaccine. Due on due Goal Lipid panel. Due on due Goal Tdap. Due on due Goal PSA. Due on due Goal Colonoscopy. Due on due Goal Cognitive assessment. Due on due Goal Pneumococcal vaccine. Due on due Goal Depression screening. Due on due Goal Lipid panel. Due on due Goal Td vaccine. Due on due Goal FOBT. Due on due Goal Influenza vaccine. Due on due Goal Zoster vaccine. Due on due Goal Sigmoidoscopy. Due on due Goal Abdominal ultrasound. Due on due Goal Tdap. Due on due Goal PSA. Due on due Goal Colonoscopy. Due on due Goal Cognitive assessment. Due on due Goal Pneumococcal vaccine. Due on due Goal Depression screening. Due on due Goal Depression screening. Due on due Goal Pneumococcal vaccine. Due on due Goal Cognitive assessment. Due on due Goal Colonoscopy. Due on due Goal PSA. Due on due Goal Tdap. Due on due Goal Lipid panel. Due on due Goal Td vaccine. Due on due Goal FOBT. Due on due Goal Influenza vaccine. Due on due Goal Zoster vaccine. Due on due Goal Sigmoidoscopy. Due on due Goal Abdominal ultrasound. Due on due Goal Abdominal ultrasound. Due on due Goal Sigmoidoscopy. Due on due Goal Zoster vaccine. Due on due Goal Influenza vaccine. Due on due Goal FOBT. Due on due Goal Depression screening. Due on due Goal Pneumococcal vaccine. Due on due Goal Cognitive assessment. Due on due Goal Colonoscopy. Due on due Goal PSA. Due on due Goal Tdap. Due on due Goal Lipid panel. Due on due Goal Td vaccine. Due on due Goal Td vaccine. Due on due Goal Lipid panel. Due on due Goal Tdap. Due on due Goal PSA. Due on due Goal Colonoscopy. Due on due Goal Cognitive assessment. Due on due Goal Abdominal ultrasound. Due on due Goal Sigmoidoscopy. Due on due Goal Zoster vaccine. Due on due Goal Influenza vaccine. Due on due Goal FOBT. Due on due Goal Depression screening. Due on due Goal Pneumococcal vaccine. Due on due Goal Pneumococcal vaccine. Due on due Goal Depression screening. Due on due Goal FOBT. Due on due Goal Influenza vaccine. Due on due Goal Zoster vaccine. Due on due Goal Td vaccine. Due on due Goal Lipid panel. Due on due Goal Tdap. Due on due Goal PSA. Due on due Goal Colonoscopy. Due on due Goal Cognitive assessment. Due on due Goal Abdominal ultrasound. Due on due Goal Sigmoidoscopy. Due on due Goal Depression screening. Due on due Goal FOBT. Due on due Goal Influenza vaccine. Due on due Goal Zoster vaccine. Due on due Goal Td vaccine. Due on due Goal Lipid panel. Due on due Goal Sigmoidoscopy. Due on due Goal Abdominal ultrasound. Due on due Goal Cognitive assessment. Due on due Goal Colonoscopy. Due on due Goal PSA. Due on due Goal Tdap. Due on due Goal Pneumococcal vaccine. Due on due Goal Pneumococcal vaccine. Due on due Goal Tdap. Due on due Goal PSA. Due on due Goal Colonoscopy. Due on due Goal Cognitive assessment. Due on due Goal Abdominal ultrasound. Due on due Goal Depression screening. Due on due Goal FOBT. Due on due Goal Influenza vaccine. Due on due Goal Zoster vaccine. Due on due Goal Td vaccine. Due on due Goal Lipid panel. Due on due Goal Sigmoidoscopy. Due on due Goal Sigmoidoscopy. Due on due Goal Lipid panel. Due on due Goal Td vaccine. Due on due Goal Zoster vaccine. Due on due Goal Influenza vaccine. Due on due Goal FOBT. Due on due Goal Depression screening. Due on due Goal Abdominal ultrasound. Due on due Goal Cognitive assessment. Due on due Goal Colonoscopy. Due on due Goal PSA. Due on due Goal Tdap. Due on due Goal Pneumococcal vaccine. Due on due Goal Pneumococcal vaccine. Due on due Goal Tdap. Due on due Goal PSA. Due on due Goal Colonoscopy. Due on due Goal Cognitive assessment. Due on due Goal Abdominal ultrasound. Due on due Goal Sigmoidoscopy. Due on due Goal Lipid panel. Due on due Goal Td vaccine. Due on due Goal Zoster vaccine. Due on due Goal Influenza vaccine. Due on due Goal FOBT. Due on due Goal Depression screening. Due on due Goal Depression screening. Due on due Goal FOBT. Due on due Goal Influenza vaccine. Due on due Goal Lipid panel. Due on 023 due Goal Sigmoidoscopy. Due on due Goal Abdominal ultrasound. Due on due Goal Cognitive assessment. Due on due Goal Colonoscopy. Due on due Goal PSA. Due on due Goal Tdap. Due on due Goal Pneumococcal vaccine. Due on due Goal Td vaccine. Due on due Goal Zoster vaccine. Due on due Goal Zoster vaccine. Due on due Goal Td vaccine. Due on due Goal Pneumococcal vaccine. Due on due Goal Tdap. Due on due Goal PSA. Due on due Goal Depression screening. Due on due Goal FOBT. Due on due Goal Influenza vaccine. Due on due Goal Lipid panel. Due on 023 due Goal Sigmoidoscopy. Due on due Goal Abdominal ultrasound. Due on due Goal Cognitive assessment. Due on due Goal Colonoscopy. Due on due Goal FOBT. Due on due Goal Depression screening. Due on due Goal PSA. Due on due Goal Tdap. Due on due Goal Pneumococcal vaccine. Due on due Goal Td vaccine. Due on due Goal Zoster vaccine. Due on due Goal Influenza vaccine. Due on due Goal Lipid panel. Due on due Goal Sigmoidoscopy. Due on due Goal Abdominal ultrasound. Due on due Goal Cognitive assessment. Due on due Goal Colonoscopy. Due on due Goal Zoster vaccine. Due on due Goal Td vaccine. Due on due Goal Pneumococcal vaccine. Due on due Goal Tdap. Due on due Goal PSA. Due on due Goal Depression screening. Due on due Goal FOBT. Due on due Goal Influenza vaccine. Due on due Goal Lipid panel. Due on 023 due Goal Sigmoidoscopy. Due on due Goal Abdominal ultrasound. Due on due Goal Cognitive assessment. Due on due Goal Colonoscopy. Due on 023 due Goal FOBT. Due on due Goal Depression screening. Due on due Goal PSA. Due on due Goal Tdap. Due on due Goal Pneumococcal vaccine. Due on due Goal Td vaccine. Due on due Goal Zoster vaccine. Due on due Goal Influenza vaccine. Due on due Goal Lipid panel. Due on due Goal Sigmoidoscopy. Due on due Goal Abdominal ultrasound. Due on due Goal Cognitive assessment. Due on due Goal Colonoscopy. Due on due Goal Colonoscopy. Due on due Goal Cognitive assessment. Due on due Goal Abdominal ultrasound. Due on due Goal Sigmoidoscopy. Due on due Goal Lipid panel. Due on due Goal Influenza vaccine. Due on due Goal FOBT. Due on due Goal Depression screening. Due on due Goal PSA. Due on due Goal Tdap. Due on due Goal Pneumococcal vaccine. Due on due Goal Td vaccine. Due on due Goal Zoster vaccine. Due on due Goal Zoster vaccine. Due on due Goal Td vaccine. Due on due Goal Pneumococcal vaccine. Due on due Goal Tdap. Due on due Goal PSA. Due on due Goal Colonoscopy. Due on due Goal Cognitive assessment. Due on due Goal Abdominal ultrasound. Due on due Goal Sigmoidoscopy. Due on due Goal Lipid panel. Due on due Goal Influenza vaccine. Due on due Goal FOBT. Due on due Goal Depression screening. Due on due Goal Depression screening. Due on due Goal FOBT. Due on due Goal Influenza vaccine. Due on due Goal Lipid panel. Due on due Goal Sigmoidoscopy. Due on due Goal Abdominal ultrasound. Due on due Goal Zoster vaccine. Due on due Goal Td vaccine. Due on due Goal Pneumococcal vaccine. Due on due Goal Tdap. Due on due Goal PSA. Due on due Goal Colonoscopy. Due on due Goal Cognitive assessment. Due on due Goal Cognitive assessment. Due on due Goal Colonoscopy. Due on due Goal PSA. Due on due Goal Tdap. Due on due Goal Pneumococcal vaccine. Due on due Goal Td vaccine. Due on due Goal Depression screening. Due on due Goal FOBT. Due on due Goal Influenza vaccine. Due on due Goal Lipid panel. Due on due Goal Sigmoidoscopy. Due on due Goal Abdominal ultrasound. Due on due Goal Zoster vaccine. Due on due Goal Zoster vaccine. Due on due Goal Abdominal ultrasound. Due on due Goal Sigmoidoscopy. Due on due Goal Lipid panel. Due on due Goal Influenza vaccine. Due on due Goal Cognitive assessment. Due on due Goal Colonoscopy. Due on due Goal PSA. Due on due Goal Tdap. Due on due Goal Pneumococcal vaccine. Due on due Goal Td vaccine. Due on due Goal Depression screening. Due on due Goal FOBT. Due on due Goal FOBT. Due on due Goal Depression screening. Due on due Goal Td vaccine. Due on due Goal Pneumococcal vaccine. Due on due Goal Tdap. Due on due Goal PSA. Due on due Goal Zoster vaccine. Due on due Goal Abdominal ultrasound. Due on due Goal Sigmoidoscopy. Due on due Goal Lipid panel. Due on due Goal Influenza vaccine. Due on due Goal Cognitive assessment. Due on due Goal Colonoscopy. Due on due Goal Colonoscopy. Due on due Goal Cognitive assessment. Due on due Goal Influenza vaccine. Due on due Goal Lipid panel. Due on due Goal Sigmoidoscopy. Due on due Goal Abdominal ultrasound. Due on due Goal FOBT. Due on due Goal Depression screening. Due on due Goal Td vaccine. Due on due Goal Pneumococcal vaccine. Due on due Goal Tdap. Due on due Goal PSA. Due on due Goal Zoster vaccine. Due on due Goal Zoster vaccine. Due on due Goal PSA. Due on due Goal Tdap. Due on due Goal Pneumococcal vaccine. Due on due Goal Td vaccine. Due on due Goal Colonoscopy. Due on due Goal Cognitive assessment. Due on due Goal Influenza vaccine. Due on due Goal Lipid panel. Due on due Goal Sigmoidoscopy. Due on due Goal Abdominal ultrasound. Due on due Goal FOBT. Due on due Goal Depression screening. Due on due Goal Depression screening. Due on due Goal FOBT. Due on due Goal Abdominal ultrasound. Due on due Goal Sigmoidoscopy. Due on due Goal Lipid panel. Due on due Goal Influenza vaccine. Due on due Goal Zoster vaccine. Due on due Goal PSA. Due on due Goal Tdap. Due on due Goal Pneumococcal vaccine. Due on due Goal Td vaccine. Due on due Goal Colonoscopy. Due on due Goal Cognitive assessment. Due on due Goal Cognitive assessment. Due on due Goal Colonoscopy. Due on due Goal Td vaccine. Due on due Goal Pneumococcal vaccine. Due on due Goal Tdap. Due on due Goal PSA. Due on due Goal Depression screening. Due on due Goal FOBT. Due on due Goal Abdominal ultrasound. Due on due Goal Sigmoidoscopy. Due on due Goal Lipid panel. Due on due Goal Influenza vaccine. Due on due Goal Zoster vaccine. Due on due Goal FOBT. Due on due Goal Depression screening. Due on due Goal PSA. Due on due Goal Tdap. Due on due Goal Pneumococcal vaccine. Due on due Goal Td vaccine. Due on due Goal Colonoscopy. Due on due Goal Cognitive assessment. Due on due Goal Abdominal ultrasound. Due on due Goal Sigmoidoscopy. Due on due Goal Lipid panel. Due on due Goal Influenza vaccine. Due on due Goal Zoster vaccine. Due on due Goal Zoster vaccine. Due on due Goal Influenza vaccine. Due on due Goal Lipid panel. Due on due Goal Sigmoidoscopy. Due on due Goal Abdominal ultrasound. Due on due Goal FOBT. Due on due Goal Depression screening. Due on due Goal PSA. Due on due Goal Tdap. Due on due Goal Pneumococcal vaccine. Due on due Goal Td vaccine. Due on due Goal Colonoscopy. Due on due Goal Cognitive assessment. Due on due Goal Cognitive assessment. Due on due Goal Colonoscopy. Due on due Goal Td vaccine. Due on due Goal Pneumococcal vaccine. Due on due Goal Tdap. Due on due Goal PSA. Due on due Goal Zoster vaccine. Due on due Goal Influenza vaccine. Due on due Goal Lipid panel. Due on due Goal Sigmoidoscopy. Due on due Goal Abdominal ultrasound. Due on due Goal FOBT. Due on due Goal Depression screening. Due on due Goal Depression screening. Due on due Goal FOBT. Due on due Goal Abdominal ultrasound. Due on due Goal Sigmoidoscopy. Due on due Goal Lipid panel. Due on due Goal Influenza vaccine. Due on due Goal Cognitive assessment. Due on due Goal Colonoscopy. Due on due Goal Td vaccine. Due on due Goal Pneumococcal vaccine. Due on due Goal Tdap. Due on due Goal PSA. Due on due Goal Zoster vaccine. Due on due Goal Zoster vaccine. Due on due Goal PSA. Due on due Goal Tdap. Due on due Goal Pneumococcal vaccine. Due on due Goal Td vaccine. Due on due Goal Depression screening. Due on due Goal FOBT. Due on due Goal Abdominal ultrasound. Due on due Goal Sigmoidoscopy. Due on due Goal Lipid panel. Due on due Goal Influenza vaccine. Due on due Goal Cognitive assessment. Due on due Goal Colonoscopy. Due on due Goal Colonoscopy. Due on due Goal Cognitive assessment. Due on due Goal Influenza vaccine. Due on due Goal Lipid panel. Due on due Goal Sigmoidoscopy. Due on due Goal Abdominal ultrasound. Due on due Goal Zoster vaccine. Due on due Goal PSA. Due on due Goal Tdap. Due on due Goal Pneumococcal vaccine. Due on due Goal Td vaccine. Due on due Goal Depression screening. Due on due Goal FOBT. Due on due Goal FOBT. Due on due Goal Depression screening. Due on due Goal Td vaccine. Due on due Goal Pneumococcal vaccine. Due on due Goal Tdap. Due on due Goal PSA. Due on due Goal Colonoscopy. Due on due Goal Cognitive assessment. Due on due Goal Influenza vaccine. Due on due Goal Lipid panel. Due on due Goal Sigmoidoscopy. Due on due Goal Abdominal ultrasound. Due on due Goal Zoster vaccine. Due on due Goal Zoster vaccine. Due on due Goal Abdominal ultrasound. Due on due Goal Sigmoidoscopy. Due on due Goal Lipid panel. Due on due Goal Influenza vaccine. Due on due Goal FOBT. Due on due Goal Depression screening. Due on due Goal Td vaccine. Due on due Goal Pneumococcal vaccine. Due on due Goal Tdap. Due on due Goal PSA. Due on due Goal Colonoscopy. Due on due Goal Cognitive assessment. Due on due Goal Cognitive assessment. Due on due Goal Colonoscopy. Due on due Goal PSA. Due on due Goal Tdap. Due on due Goal Pneumococcal vaccine. Due on due Goal Td vaccine. Due on due Goal Zoster vaccine. Due on due Goal Abdominal ultrasound. Due on due Goal Sigmoidoscopy. Due on due Goal Lipid panel. Due on due Goal Influenza vaccine. Due on due Goal FOBT. Due on due Goal Depression screening. Due on due Goal Depression screening. Due on due Goal FOBT. Due on due Goal Influenza vaccine. Due on due Goal Lipid panel. Due on due Goal Sigmoidoscopy. Due on due Goal Abdominal ultrasound. Due on due Goal Cognitive assessment. Due on due Goal Colonoscopy. Due on due Goal PSA. Due on due Goal Tdap. Due on due Goal Pneumococcal vaccine. Due on due Goal Td vaccine. Due on due Goal Zoster vaccine. Due on due Goal Depression screening. Due on due Goal FOBT. Due on due Goal Influenza vaccine. Due on due Goal Lipid panel. Due on due Goal Sigmoidoscopy. Due on due Goal Abdominal ultrasound. Due on due Goal Cognitive assessment. Due on due Goal Colonoscopy. Due on due Goal PSA. Due on due Goal Tdap. Due on due Goal Pneumococcal vaccine. Due on due Goal Td vaccine. Due on due Goal Zoster vaccine. Due on due Goal Zoster vaccine. Due on due Goal Td vaccine. Due on due Goal Pneumococcal vaccine. Due on due Goal Tdap. Due on due Goal PSA. Due on due Goal Influenza vaccine. Due on due Goal Lipid panel. Due on due Goal Sigmoidoscopy. Due on due Goal Abdominal ultrasound. Due on due Goal Cognitive assessment. Due on due Goal Colonoscopy. Due on due Goal Depression screening. Due on due Goal FOBT. Due on due Goal Influenza vaccine. Due on due Goal PSA. Due on due Goal Tdap. Due on due Goal Pneumococcal vaccine. Due on due Goal Td vaccine. Due on due Goal Zoster vaccine. Due on due Goal Sigmoidoscopy. Due on due Goal Abdominal ultrasound. Due on due Goal Cognitive assessment. Due on due Goal Colonoscopy. Due on due Goal Depression screening. Due on due Goal FOBT. Due on due Goal Lipid panel. Due on due Goal FOBT. Due on due Goal Depression screening. Due on due Goal Colonoscopy. Due on due Goal Cognitive assessment. Due on due Goal Abdominal ultrasound. Due on due Goal Sigmoidoscopy. Due on due Goal Lipid panel. Due on due Goal Influenza vaccine. Due on due Goal PSA. Due on due Goal Tdap. Due on due Goal Pneumococcal vaccine. Due on due Goal Td vaccine. Due on due Goal Zoster vaccine. Due on due Goal FOBT. Due on due Goal Depression screening. Due on due Goal Colonoscopy. Due on due Goal Cognitive assessment. Due on due Goal Abdominal ultrasound. Due on due Goal Sigmoidoscopy. Due on due Goal Lipid panel. Due on due Goal Influenza vaccine. Due on due Goal PSA. Due on due Goal Tdap. Due on due Goal Pneumococcal vaccine. Due on due Goal Td vaccine. Due on due Goal Zoster vaccine. Due on due Goal FOBT. Due on due Goal Zoster vaccine. Due on due Goal Td vaccine. Due on due Goal Pneumococcal vaccine. Due on due Goal Tdap. Due on due Goal PSA. Due on due Goal Influenza vaccine. Due on due Goal Lipid panel. Due on due Goal Sigmoidoscopy. Due on due Goal Abdominal ultrasound. Due on due Goal Cognitive assessment. Due on due Goal Colonoscopy. Due on due Goal Depression screening. Due on due Goal FOBT. Due on due Goal Zoster vaccine. Due on due Goal Td vaccine. Due on due Goal Pneumococcal vaccine. Due on due Goal Tdap. Due on due Goal PSA. Due on due Goal Influenza vaccine. Due on due Goal Lipid panel. Due on due Goal Sigmoidoscopy. Due on due Goal Abdominal ultrasound. Due on due Goal Cognitive assessment. Due on due Goal Colonoscopy. Due on due Goal Depression screening. Due on due Goal Depression screening. Due on due Goal Colonoscopy. Due on due Goal Cognitive assessment. Due on due Goal Abdominal ultrasound. Due on due Goal Sigmoidoscopy. Due on due Goal Lipid panel. Due on due Goal Influenza vaccine. Due on due Goal PSA. Due on due Goal Tdap. Due on due Goal Pneumococcal vaccine. Due on due Goal Td vaccine. Due on due Goal Zoster vaccine. Due on due Goal FOBT. Due on due Goal Depression screening. Due on due Goal Colonoscopy. Due on due Goal Cognitive assessment. Due on due Goal Abdominal ultrasound. Due on due Goal Sigmoidoscopy. Due on due Goal Lipid panel. Due on due Goal Influenza vaccine. Due on due Goal PSA. Due on due Goal Tdap. Due on due Goal Pneumococcal vaccine. Due on due Goal Td vaccine. Due on 20 due Goal Zoster vaccine. Due on due Goal FOBT. Due on due Goal Depression screening. Due on due Goal Colonoscopy. Due on due Goal Cognitive assessment. Due on due Goal Abdominal ultrasound. Due on due Goal Sigmoidoscopy. Due on due Goal Lipid panel. Due on due Goal Influenza vaccine. Due on due Goal PSA. Due on due Goal Tdap. Due on due Goal Pneumococcal vaccine. Due on due Goal Td vaccine. Due on due Goal Zoster vaccine. Due on due Goal FOBT. Due on due Goal Depression screening. Due on due Goal Colonoscopy. Due on due Goal Cognitive assessment. Due on due Goal Abdominal ultrasound. Due on due Goal Sigmoidoscopy. Due on due Goal Lipid panel. Due on due Goal Influenza vaccine. Due on due Goal PSA. Due on due Goal Tdap. Due on due Goal Pneumococcal vaccine. Due on due Goal Td vaccine. Due on due Goal Zoster vaccine. Due on due Goal FOBT. Due on due Goal Depression screening. Due on due Goal Colonoscopy. Due on due Goal Cognitive assessment. Due on due Goal Abdominal ultrasound. Due on due Goal Sigmoidoscopy. Due on due Goal Lipid panel. Due on due Goal FOBT. Due on due Goal Zoster vaccine. Due on due Goal Td vaccine. Due on due Goal Pneumococcal vaccine. Due on due Goal Tdap. Due on due Goal PSA. Due on due Goal Influenza vaccine. Due on due Goal Td vaccine. Due on due Goal Pneumococcal vaccine. Due on due Goal Tdap. Due on due Goal PSA. Due on due Goal Influenza vaccine. Due on due Goal Depression screening. Due on due Goal Colonoscopy. Due on due Goal Cognitive assessment. Due on due Goal Abdominal ultrasound. Due on due Goal Sigmoidoscopy. Due on due Goal Lipid panel. Due on due Goal FOBT. Due on due Goal Zoster vaccine. Due on due Goal Td vaccine. Due on due Goal Pneumococcal vaccine. Due on due Goal Tdap. Due on due Goal PSA. Due on due Goal Influenza vaccine. Due on due Goal Depression screening. Due on due Goal Colonoscopy. Due on due Goal Cognitive assessment. Due on due Goal Abdominal ultrasound. Due on due Goal Sigmoidoscopy. Due on due Goal Lipid panel. Due on due Goal FOBT. Due on due Goal Zoster vaccine. Due on due Goal Td vaccine. Due on due Goal Pneumococcal vaccine. Due on due Goal Tdap. Due on due Goal PSA. Due on due Goal Influenza vaccine. Due on due Goal Depression screening. Due on due Goal Colonoscopy. Due on due Goal Cognitive assessment. Due on due Goal Abdominal ultrasound. Due on due Goal Sigmoidoscopy. Due on due Goal Lipid panel. Due on due Goal FOBT. Due on due Goal Zoster vaccine. Due on due Goal Influenza vaccine. Due on due Goal Depression screening. Due on due Goal Colonoscopy. Due on due Goal Cognitive assessment. Due on due Goal Abdominal ultrasound. Due on due Goal Sigmoidoscopy. Due on due Goal Lipid panel. Due on due Goal FOBT. Due on due Goal Zoster vaccine. Due on due Goal Td vaccine. Due on due Goal Pneumococcal vaccine. Due on due Goal Tdap. Due on due Goal PSA. Due on due Goal PSA. Due on due Goal Tdap. Due on due Goal Pneumococcal vaccine. Due on due Goal Td vaccine. Due on due Goal Zoster vaccine. Due on due Goal FOBT. Due on due Goal Lipid panel. Due on due Goal Sigmoidoscopy. Due on due Goal Abdominal ultrasound. Due on due Goal Cognitive assessment. Due on due Goal Colonoscopy. Due on due Goal Depression screening. Due on due Goal Influenza vaccine. Due on due Goal PSA. Due on due Goal Tdap. Due on due Goal Pneumococcal vaccine. Due on due Goal Td vaccine. Due on due Goal Zoster vaccine. Due on due Goal FOBT. Due on due Goal Lipid panel. Due on due Goal Sigmoidoscopy. Due on due Goal Abdominal ultrasound. Due on due Goal Cognitive assessment. Due on due Goal Colonoscopy. Due on due Goal Depression screening. Due on due Goal Influenza vaccine. Due on due Goal PSA. Due on due Goal Tdap. Due on due Goal Pneumococcal vaccine. Due on due Goal Td vaccine. Due on due Goal Zoster vaccine. Due on due Goal FOBT. Due on due Goal Lipid panel. Due on due Goal Sigmoidoscopy. Due on due Goal Abdominal ultrasound. Due on due Goal Cognitive assessment. Due on due Goal Colonoscopy. Due on due Goal Depression screening. Due on due Goal Influenza vaccine. Due on due Goal Tobacco cessation counseling completed Goal Influenza vaccine. Due on due Goal Depression screening. Due on due Goal Colonoscopy. Due on due Goal Cognitive assessment. Due on due Goal Abdominal ultrasound. Due on due Goal Sigmoidoscopy. Due on due Goal Lipid panel. Due on due Goal FOBT. Due on due Goal Zoster vaccine. Due on due Goal Td vaccine. Due on due Goal Pneumococcal vaccine. Due on due Goal Tdap. Due on due Goal PSA. Due on due Goal Tobacco cessation counseling completed Goal PSA. Due on due Goal Tdap. Due on due Goal Pneumococcal vaccine. Due on due Goal Td vaccine. Due on due Goal Zoster vaccine. Due on due Goal FOBT. Due on due Goal Lipid panel. Due on due Goal Sigmoidoscopy. Due on due Goal Abdominal ultrasound. Due on due Goal Cognitive assessment. Due on due Goal Colonoscopy. Due on due Goal Depression screening. Due on due Goal Influenza vaccine. Due on due Goal Special diet education compl eted Goal Tobacco cessation counseling completed Goal PSA. Due on due Goal Tdap. Due on due Goal Pneumococcal vaccine. Due on due Goal Td vaccine. Due on 19 due Goal Zoster vaccine. Due on due Goal FOBT. Due on due Goal Lipid panel. Due on due Goal Sigmoidoscopy. Due on due Goal Abdominal ultrasound. Due on due Goal Cognitive assessment. Due on due Goal Colonoscopy. Due on due Goal Depression screening. Due on due Goal Influenza vaccine. Due on due Goal Tobacco cessation counseling completed Goal Special diet education compl eted Goal Influenza vaccine. Due on due Goal Depression screening. Due on due Goal Colonoscopy. Due on due Goal Cognitive assessment. Due on due Goal Abdominal ultrasound. Due on due Goal Sigmoidoscopy. Due on due Goal Lipid panel. Due on due Goal FOBT. Due on due Goal Zoster vaccine. Due on due Goal Td vaccine. Due on due Goal Pneumococcal vaccine. Due on due Goal Tdap. Due on due Goal PSA. Due on due Goal Tobacco cessation counseling completed Goal Special diet education compl eted Goal PSA. Due on due Goal Tdap. Due on due Goal Pneumococcal vaccine. Due on due Goal Td vaccine. Due on due Goal Zoster vaccine. Due on due Goal FOBT. Due on due Goal Lipid panel. Due on due Goal Sigmoidoscopy. Due on due Goal Abdominal ultrasound. Due on due Goal Cognitive assessment. Due on due Goal Colonoscopy. Due on due Goal Depression screening. Due on due Goal Influenza vaccine. Due on due Goal Tobacco cessation counseling completed Goal Special diet education compl eted Goal PSA. Due on due Goal Tdap. Due on due Goal Pneumococcal vaccine. Due on due Goal Td vaccine. Due on due Goal Zoster vaccine. Due on due Goal FOBT. Due on due Goal Lipid panel. Due on due Goal Sigmoidoscopy. Due on due Goal Abdominal ultrasound. Due on due Goal Cognitive assessment. Due on due Goal Colonoscopy. Due on due Goal Depression screening. Due on due Goal Influenza vaccine. Due on due Goal Tobacco cessation counseling completed Goal PSA. Due on due Goal Tdap. Due on due Goal Pneumococcal vaccine. Due on due Goal Td vaccine. Due on due Goal Influenza vaccine. Due on due Goal Depression screening. Due on due Goal Colonoscopy. Due on due Goal Cognitive assessment. Due on due Goal Abdominal ultrasound. Due on due Goal Sigmoidoscopy. Due on due Goal Lipid panel. Due on due Goal FOBT. Due on due Goal Zoster vaccine. Due on due Goal Tobacco cessation counseling completed Goal Influenza vaccine. Due on due Goal Depression screening. Due on due Goal Colonoscopy. Due on due Goal Cognitive assessment. Due on due Goal Abdominal ultrasound. Due on due Goal Sigmoidoscopy. Due on due Goal Lipid panel. Due on due Goal FOBT. Due on due Goal Zoster vaccine. Due on due Goal PSA. Due on due Goal Tdap. Due on due Goal Pneumococcal vaccine. Due on due Goal Td vaccine. Due on 19 due Goal Tobacco cessation counseling completed Goal Special diet education compl eted Goal Influenza vaccine. Due on due Goal Depression screening. Due on due Goal Colonoscopy. Due on due Goal Cognitive assessment. Due on due Goal Abdominal ultrasound. Due on due Goal Sigmoidoscopy. Due on due Goal Lipid panel. Due on due Goal FOBT. Due on due Goal Zoster vaccine. Due on due Goal PSA. Due on due Goal Tdap. Due on due Goal Pneumococcal vaccine. Due on due Goal Td vaccine. Due on due Goal Influenza vaccine. Due on due Goal Depression screening. Due on due Goal Colonoscopy. Due on due Goal Cognitive assessment. Due on due Goal Abdominal ultrasound. Due on due Goal Sigmoidoscopy. Due on due Goal Lipid panel. Due on due Goal FOBT. Due on due Goal Zoster vaccine. Due on due Goal PSA. Due on due Goal Tdap. Due on due Goal Pneumococcal vaccine. Due on due Goal Td vaccine. Due on due Goal Tobacco cessation counseling completed Goal Influenza vaccine. Due on due Goal Depression screening. Due on due Goal Colonoscopy. Due on due Goal Cognitive assessment. Due on due Goal Abdominal ultrasound. Due on due Goal Sigmoidoscopy. Due on due Goal Lipid panel. Due on due Goal FOBT. Due on due Goal Zoster vaccine. Due on due Goal PSA. Due on due Goal Tdap. Due on due Goal Pneumococcal vaccine. Due on due Goal Td vaccine. Due on due Goal Tobacco cessation counseling completed Goal Td vaccine. Due on due Goal Pneumococcal vaccine. Due on due Goal Tdap. Due on due Goal PSA. Due on due Goal Zoster vaccine. Due on due Goal FOBT. Due on due Goal Lipid panel. Due on due Goal Sigmoidoscopy. Due on due Goal Abdominal ultrasound. Due on due Goal Cognitive assessment. Due on due Goal Colonoscopy. Due on due Goal Depression screening. Due on due Goal Influenza vaccine. Due on due Goal Special diet education compl eted Goal Influenza vaccine. Due on due Goal Depression screening. Due on due Goal Colonoscopy. Due on due Goal Cognitive assessment. Due on due Goal Abdominal ultrasound. Due on due Goal Sigmoidoscopy. Due on due Goal Lipid panel. Due on due Goal FOBT. Due on due Goal Zoster vaccine. Due on due Goal PSA. Due on due Goal Tdap. Due on due Goal Pneumococcal vaccine. Due on due Goal Td vaccine. Due on due Goal Td vaccine. Due on due Goal Tdap. Due on due Goal PSA. Due on due Goal Zoster vaccine. Due on due Goal FOBT. Due on due Goal Lipid panel. Due on due Goal Sigmoidoscopy. Due on due Goal Colonoscopy. Due on due Goal Depression screening. Due on due Goal Influenza vaccine. Due on due Goal Influenza vaccine. Due on due Goal Depression screening. Due on due Goal Colonoscopy. Due on due Goal Abdominal ultrasound. Due on due Goal Sigmoidoscopy. Due on due Goal Lipid panel. Due on due Goal FOBT. Due on due Goal Zoster vaccine. Due on due Goal PSA. Due on due Goal Tdap. Due on due Goal Td vaccine. Due on due Goal Special diet education compl eted Goal Tobacco cessation counseling completed Goal Influenza vaccine. Due on due Goal Depression screening. Due on due Goal Colonoscopy. Due on due Goal Sigmoidoscopy. Due on due Goal Lipid panel. Due on due Goal FOBT. Due on due Goal Zoster vaccine. Due on due Goal PSA. Due on due Goal Tdap. Due on due Goal Td vaccine. Due on due Goal Tobacco cessation counseling completed Goal Influenza vaccine. Due on due Goal Depression screening. Due on due Goal Colonoscopy. Due on due Goal Sigmoidoscopy. Due on due Goal Lipid panel. Due on due Goal FOBT. Due on due Goal Zoster vaccine. Due on due Goal PSA. Due on due Goal Tdap. Due on due Goal Td vaccine. Due on due Goal Td vaccine. Due on 18 due Goal Tdap. Due on due Goal PSA. Due on due Goal Zoster vaccine. Due on due Goal FOBT. Due on due Goal Lipid panel. Due on due Goal Sigmoidoscopy. Due on due Goal Colonoscopy. Due on due Goal Depression screening. Due on due Goal Influenza vaccine. Due on due Goal Influenza vaccine. Due on due Goal Depression screening. Due on due Goal Colonoscopy. Due on due Goal Sigmoidoscopy. Due on due Goal Lipid panel. Due on due Goal Td vaccine. Due on due Goal Tdap. Due on due Goal PSA. Due on due Goal Zoster vaccine. Due on due Goal FOBT. Due on due Goal Special diet education compl eted Goal FOBT. Due on due Goal Zoster vaccine. Due on due Goal PSA. Due on due Goal Tdap. Due on due Goal Td vaccine. Due on due Goal Lipid panel. Due on due Goal Sigmoidoscopy. Due on due Goal Colonoscopy. Due on due Goal Depression screening. Due on due Goal Influenza vaccine. Due on due Goal Influenza vaccine. Due on due Goal Depression screening. Due on due Goal Colonoscopy. Due on due Goal Sigmoidoscopy. Due on due Goal Lipid panel. Due on due Goal Td vaccine. Due on due Goal Tdap. Due on due Goal PSA. Due on due Goal Zoster vaccine. Due on due Goal FOBT. Due on due Goal Influenza vaccine. Due on due Goal Depression screening. Due on due Goal Colonoscopy. Due on due Goal Sigmoidoscopy. Due on due Goal Lipid panel. Due on due Goal Td vaccine. Due on due Goal Tdap. Due on due Goal PSA. Due on due Goal Zoster vaccine. Due on due Goal FOBT. Due on due Goal Influenza vaccine. Due on due Goal Depression screening. Due on due Goal Colonoscopy. Due on due Goal Sigmoidoscopy. Due on due Goal Lipid panel. Due on due Goal Td vaccine. Due on due Goal Tdap. Due on due Goal PSA. Due on due Goal Zoster vaccine. Due on due Goal FOBT. Due on due Goal Special diet education compl eted Goal Influenza vaccine. Due on due Goal Depression screening. Due on due Goal Colonoscopy. Due on due Goal Sigmoidoscopy. Due on due Goal Lipid panel. Due on due Goal Td vaccine. Due on due Goal Tdap. Due on due Goal PSA. Due on due Goal Zoster vaccine. Due on due Goal FOBT. Due on due Goal Special diet education compl eted Goal Td vaccine. Due on due Goal Sigmoidoscopy. Due on due Goal Colonoscopy. Due on due Goal Depression screening. Due on due Goal Influenza vaccine. Due on due Goal FOBT. Due on due Goal Zoster vaccine. Due on due Goal PSA. Due on due Goal Tdap. Due on due Goal Tdap. Due on due Goal PSA. Due on due Goal Sigmoidoscopy. Due on due Goal Colonoscopy. Due on due Goal Td vaccine. Due on due Goal Depression screening. Due on due Goal FOBT. Due on due Goal Zoster vaccine. Due on due Goal Influenza vaccine. Due on due Goal Colonoscopy. Due on 018 due Goal Zoster vaccine. Due on due Goal Td vaccine. Due on 18 due Goal Influenza vaccine. Due on due Goal FOBT. Due on due Goal Depression screening. Due on due Goal PSA. Due on due Goal Tdap. Due on due Goal Sigmoidoscopy. Due on due Goal Sigmoidoscopy. Due on due Goal Td vaccine. Due on 17 due Goal FOBT. Due on due Goal Zoster vaccine. Due on due Goal PSA. Due on due Goal Colonoscopy. Due on 017 due Goal Influenza vaccine. Due on due Goal Tdap. Due on due Goal Depression screening. Due on due Goal PSA. Due on due Goal Colonoscopy. Due on 017 due Goal FOBT. Due on due Goal Td vaccine. Due on 17 due Goal Influenza vaccine. Due on due Goal Tdap. Due on due Goal Zoster vaccine. Due on due Goal Depression screening. Due on due Goal Sigmoidoscopy. Due on due Goal Td vaccine. Due on due Goal Influenza vaccine. Due on due Goal Depression screening. Due on due Goal Colonoscopy. Due on due Goal Zoster vaccine. Due on due Goal FOBT. Due on due Goal Tdap. Due on due Goal Sigmoidoscopy. Due on due Goal PSA. Due on due Goal Sigmoidoscopy. Due on due Goal PSA. Due on due Goal Zoster vaccine. Due on due Goal Td vaccine. Due on due Goal Depression screening. Due on due Goal Influenza vaccine. Due on due Goal Colonoscopy. Due on 017 due Goal FOBT. Due on due Goal Tdap. Due on due Goal FOBT. Due on due Goal Colonoscopy. Due on 017 due Goal Zoster vaccine. Due on due Goal Td vaccine. Due on due Goal Sigmoidoscopy. Due on due Goal Depression screening. Due on due Goal Tdap. Due on due Goal Influenza vaccine. Due on due Goal PSA. Due on due Goal PSA. Due on due Goal Depression screening. Due on due Goal Colonoscopy. Due on due Goal FOBT. Due on due Goal Influenza vaccine. Due on due Goal Zoster vaccine. Due on due Goal Td vaccine. Due on due Goal Sigmoidoscopy. Due on due Goal Tdap. Due on due Goal PSA. Due on due Goal Sigmoidoscopy. Due on due Goal Td vaccine. Due on due Goal Tdap. Due on due Goal Influenza vaccine. Due on due Goal FOBT. Due on due Goal Colonoscopy. Due on due Goal Zoster vaccine. Due on due Goal Depression screening. Due on due Goal Sigmoidoscopy. Due on due Goal Colonoscopy. Due on due Goal Td vaccine. Due on 17 due Goal Influenza vaccine. Due on due Goal Tdap. Due on due Goal FOBT. Due on due Goal Depression screening. Due on due Goal PSA. Due on due Goal Zoster vaccine. Due on due Goal Td vaccine. Due on 17 due Goal FOBT. Due on due Goal Influenza vaccine. Due on due Goal Zoster vaccine. Due on due Goal Colonoscopy. Due on due Goal Depression screening. Due on due Goal Tdap. Due on due Goal PSA. Due on due Goal Sigmoidoscopy. Due on due Goal Zoster vaccine. Due on due Goal Influenza vaccine. Due on due Goal Sigmoidoscopy. Due on due Goal Colonoscopy. Due on due Goal Depression screening. Due on due Goal Tdap. Due on due Goal Td vaccine. Due on due Goal PSA. Due on due Goal FOBT. Due on due Goal PSA. Due on due Goal Zoster vaccine. Due on due Goal Depression screening. Due on due Goal FOBT. Due on due Goal Sigmoidoscopy. Due on due Goal Td vaccine. Due on due Goal Influenza vaccine. Due on due Goal Colonoscopy. Due on due Goal Tdap. Due on due Goal Tdap. Due on due Goal Colonoscopy. Due on due Goal Influenza vaccine. Due on due Goal Zoster vaccine. Due on due Goal Sigmoidoscopy. Due on due Goal Td vaccine. Due on 17 due Goal Depression screening. Due on due Goal PSA. Due on due Goal FOBT. Due on due Goal Td vaccine. Due on 16 due Goal Depression screening. Due on due Goal PSA. Due on due Goal Sigmoidoscopy. Due on due Goal Influenza vaccine. Due on due Goal Colonoscopy. Due on due Goal FOBT. Due on due Goal Tdap. Due on due Goal Zoster vaccine. Due on due Goal PSA. Due on due Goal Sigmoidoscopy. Due on due Goal Depression screening. Due on due Goal Zoster vaccine. Due on due Goal Influenza vaccine. Due on due Goal Colonoscopy. Due on due Goal Td vaccine. Due on 16 due Goal FOBT. Due on due Goal Tdap. Due on due Goal Td vaccine. Due on 16 due Goal PSA. Due on due Goal Depression screening. Due on due Goal Influenza vaccine. Due on due Goal Colonoscopy. Due on due Goal Tdap. Due on due Goal Zoster vaccine. Due on due Goal Sigmoidoscopy. Due on due Goal FOBT. Due on due Goal Tdap. Due on due Goal Td vaccine. Due on 16 due Goal Sigmoidoscopy. Due on due Goal Zoster vaccine. Due on due Goal Colonoscopy. Due on due Goal PSA. Due on due Goal Influenza vaccine. Due on due Goal FOBT. Due on due Goal Depression screening. Due on due Goal Influenza vaccine. Due on due Goal Depression screening. Due on due Goal Colonoscopy. Due on 016 due Goal FOBT. Due on due Goal Zoster vaccine. Due on due Goal PSA. Due on due Goal Td vaccine. Due on 16 due Goal Tdap. Due on due Goal Sigmoidoscopy. Due on due Goal Colonoscopy. Due on 016 due Goal FOBT. Due on due Goal Td vaccine. Due on 16 due Goal Sigmoidoscopy. Due on due Goal Zoster vaccine. Due on due Goal Depression screening. Due on due Goal Tdap. Due on due Goal PSA. Due on due Goal Influenza vaccine. Due on due Goal Sigmoidoscopy. Due on due Goal Tdap. Due on due Goal Colonoscopy. Due on due Goal PSA. Due on due Goal FOBT. Due on due Goal Td vaccine. Due on due Goal Depression screening. Due on due Goal Zoster vaccine. Due on due Goal Influenza vaccine. Due on due Goal Depression screening. Due on due Goal Colonoscopy. Due on due Goal Tdap. Due on due Goal Influenza vaccine. Due on due Goal Sigmoidoscopy. Due on due Goal PSA. Due on due Goal FOBT. Due on due Goal Td vaccine. Due on due Goal Zoster vaccine. Due on due Goal PSA. Due on due Goal FOBT. Due on due Goal Influenza vaccine. Due on due Goal Depression screening. Due on due Goal Tdap. Due on due Goal Sigmoidoscopy. Due on due Goal Colonoscopy. Due on 016 due Goal Zoster vaccine. Due on due Goal Td vaccine. Due on 16 due Goal Tdap. Due on due Goal Zoster vaccine. Due on due Goal Depression screening. Due on due Goal Influenza vaccine. Due on due Goal FOBT. Due on due Goal Sigmoidoscopy. Due on due Goal PSA. Due on due Goal Colonoscopy. Due on due Goal Td vaccine. Due on due Goal Tdap. Due on due Goal Depression screening. Due on due Goal Zoster vaccine. Due on due Goal Td vaccine. Due on due Goal FOBT. Due on due Goal Colonoscopy. Due on due Goal Sigmoidoscopy. Due on due Goal Influenza vaccine. Due on due Goal PSA. Due on due Goal Depression screening. Due on due Goal Colonoscopy. Due on 016 due Goal Influenza vaccine. Due on due Goal PSA. Due on due Goal Sigmoidoscopy. Due on due Goal Td vaccine. Due on due Goal Zoster vaccine. Due on due Goal FOBT. Due on due Goal Tdap. Due on due Goal Sigmoidoscopy. Due on due Goal FOBT. Due on due Goal Depression screening. Due on due Goal PSA. Due on due Goal Td vaccine. Due on due Goal Influenza vaccine. Due on due Goal Colonoscopy. Due on due Goal Zoster vaccine. Due on due Goal Tdap. Due on due Goal Tdap. Due on due Goal Zoster vaccine. Due on due Goal Colonoscopy. Due on due Goal Depression screening. Due on due Goal FOBT. Due on due Goal Td vaccine. Due on due Goal Influenza vaccine. Due on due Goal PSA. Due on due Goal Sigmoidoscopy. Due on due Goal Td vaccine. Due on due Goal Depression screening. Due on due Goal Tdap. Due on due Goal Influenza vaccine. Due on due Goal PSA. Due on due Goal Sigmoidoscopy. Due on due Goal FOBT. Due on due Goal Zoster vaccine. Due on due Goal Colonoscopy. Due on due Goal FOBT. Due on due Goal PSA. Due on due Goal Influenza vaccine. Due on due Goal Colonoscopy. Due on due Goal Tdap. Due on due Goal Td vaccine. Due on due Goal Sigmoidoscopy. Due on due Goal Depression screening. Due on due Goal Zoster vaccine. Due on due Goal Colonoscopy. Due on due Goal Influenza vaccine. Due on due Goal Sigmoidoscopy. Due on due Goal PSA. Due on due Goal Depression screening. Due on due Goal Zoster vaccine. Due on due Goal Td vaccine. Due on due Goal FOBT. Due on due Goal Tdap. Due on due Goal Tdap. Due on due Goal PSA. Due on due Goal Influenza vaccine. Due on due Goal Colonoscopy. Due on due Goal FOBT. Due on due Goal Sigmoidoscopy. Due on due Goal Depression screening. Due on due Goal Zoster vaccine. Due on due Goal Td vaccine. Due on due Goal Zoster vaccine. Due on due Goal FOBT. Due on due Goal PSA. Due on due Goal Depression screening. Due on due Goal Sigmoidoscopy. Due on due Goal Tdap. Due on due Goal Td vaccine. Due on 15 due Goal Influenza vaccine. Due on due Goal Colonoscopy. Due on 015 due Goal Sigmoidoscopy. Due on due Goal Td vaccine. Due on 15 due Goal Tdap. Due on due Goal Zoster vaccine. Due on due Goal Colonoscopy. Due on due Goal PSA. Due on due Goal Depression screening. Due on due Goal FOBT. Due on due Goal Influenza vaccine. Due on due Goal Colonoscopy. Due on 013 due Goal PSA. Due on due Goal Tobacco cessation counseling completed Goal Tobacco cessation counseling completed Goal Tobacco cessation counseling completed Goal Tobacco cessation counseling completed Goal Tobacco cessation counseling completed Goal Tobacco cessation counseling completed Goal Tobacco cessation counseling completed Goal Tobacco cessation counseling completed Goal Tobacco cessation counseling completed Goal Tobacco cessation counseling completed Goal Tobacco cessation counseling completed Goal Tobacco cessation counseling completed Goal Tobacco cessation counseling completed Goal Tobacco cessation counseling completed Goal Tobacco cessation counseling completed Goal Tobacco cessation counseling completed Goal Tobacco cessation counseling completed Goal Tobacco cessation counseling completed Goal Tobacco cessation counseling completed Goal Tobacco cessation counseling completed Goal Tobacco cessation counseling completed Goal Tobacco cessation counseling completed Goal Tobacco cessation counseling completed Goal Tobacco cessation counseling completed Goal Tobacco cessation counseling completed Goal Tobacco cessation counseling completed Goal Tobacco cessation counseling completed Referral Ordered: OPERATIVE UPPER GI ENDOSCOPY ordered Referral Ordered: Urology (related to Malignant neoplasm of bladder, unspecified) ordered Referral Ordered: Referrals: Urology. Evaluate and treat ordered Referral Ordered: Pulmonology (related to Emphysema) ordered Referral Ordered: Referrals: Pulmonology. Evaluate and treat ordered Referral Ordered: Suzanne Beckham -[facility] : Urology (related to Malignant neoplasm of bladder, unspecified) ordered Referral Referred To: Suzanne Beckham [address] [place], [place] [id number] Ordered: Referrals: [facility] Phys[facility] : Urology. Suzanne Beckham. 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 GRISELDA RAWLS. Evaluate and treat ordered Referral Ordered: CT THORAX W/O DYE ordered Referral Ordered: Referral: [facility]. Evaluate and treat. ordered Referral Ordered: Referral: Urology. Evaluate and treat. ordered Referral Ordered: US THYROID ordered Appointment Bhanu Álvarez BOOKED Appointment Bhanu Álvarez BOOKED History Of Present Illness Encounter Date Complaint History Of Prese nt Illness physical Pt needs annual physical .Pt has COPD Pt uses incruse and albuterol pt denies any worsening sob, any cough or hemoptysis. Pt has insomnia and anxiety Pt takes xanax qhs Pt has chronic pain Pt takes norco PRN for pain. Pt has CAD with stent Pt sees cardiology. Pt denies any chest pain. Pt has hypothyroidism Pt takes synthroid. 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 Pt takes omeprazole and doing ok. 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 He denies any urinary symptoms pain Pt has chronic r ight ankle pain. Pt has arthritis. Pt failed NSAID and ultram pt takes norco PRn for pain and doing ok. Pt denies any worsening pain. Pt denies any neuropathy anxiety Pt has chronic a nxiety and insomnia. Pt takes xanax qhs PRn and doing ok, Pt denies any depression or any suicidal thought. Pt denies any crying spells Pt doing ok with xanax qhs PRN COPD Pt has COPD Pt i s on incruse. Pt denies any worsening sob Pt needs LDCT pain Pt has chronic r ight ankle pain. Pt has arthritis. Pt failed NSAID and ultram pt takes norco PRn for pain and doing ok. Pt denies any worsening pain. Pt denies any neuropathy anxiety Pt has chronic a nxiety and insomnia. Pt takes xanax qhs PRn and doing ok, Pt denies any depression or any suicidal thought. Pt denies any crying spells Pt doing ok with xanax qhs PRN pain Pt has chronic r ight ankle pain. Pt has arthritis. Pt failed NSAID and ultram pt takes norco PRn for pain and doing ok. Pt denies any worsening pain. Pt denies any neuropathy anxiety1 Pt has chronic a nxiety and insomnia. Pt takes xanax qhs PRn and doing ok, Pt denies any depression or any suicidal thought. Pt denies any crying spells Pt doing ok with xanax qhs PRN pain Pt has chronic r ight ankle pain. Pt has arthritis. Pt failed NSAID and ultram pt takes norco PRn for pain and doing ok. Pt denies any worsening pain. Pt denies any neuropathy anxiety1 Pt has chronic a nxiety and insomnia. Pt takes xanax qhs PRn and doing ok, Pt denies any depression or any suicidal thought. Pt denies any crying spells Pt doing ok with xanax qhs PRN COPD1 Pt has COPD Pt i s on incruse and albuterol PRn Pt states that he needs incruse refilled Pt uses albuterol 1-2 per day Pt still smoking thyroid1 Pt has hypothyro idism. Pt takes synthroid and doing ok Pt denies any dysphagia or neck pain pain Pt has chronic r ight ankle pain. Pt has arthritis. Pt failed NSAID and ultram pt takes norco PRn for pain and doing ok. Pt denies any worsening pain. Pt denies any neuropathy anxiety1 Pt has chronic a nxiety and insomnia. Pt takes xanax qhs PRn and doing ok, Pt denies any depression or any suicidal thought. Pt denies any crying spells Pt doing ok with xanax qhs PRN pain Pt has chronic r ight ankle pain. Pt has arthritis. Pt failed NSAID and ultram pt takes norco PRn for pain and doing ok. Pt denies any worsening pain. Pt denies any neuropathy anxiety1 Pt has chronic a nxiety and insomnia. Pt takes xanax qhs PRn and doing ok, Pt denies any depression or any suicidal thought. Pt denies any crying spells Pt doing ok with xanax qhs PRN pain Pt has chronic r ight ankle pain. Pt has arthritis. Pt failed NSAID and ultram pt takes norco PRn for pain and doing ok. Pt denies any worsening pain. Pt denies any neuropathy anxiety1 Pt has chronic a nxiety and insomnia. Pt takes xanax qhs PRn and doing ok, Pt denies any depression or any suicidal thought. Pt denies any crying spells Pt doing ok with xanax qhs PRN COPD1 Pt has COPD pt i s on incruse and albuterol PRN Pt uses albuterol 1-2 per day Pt denies any worsening sob anxiety1 Pt has chronic a nxiety and insomnia. Pt takes xanax qhs PRn and doing ok, Pt denies any depression or any suicidal thought. Pt denies any crying spells Pt doing ok with xanax qhs PRN pain Pt has chronic r ight ankle pain. Pt has arthritis. Pt failed NSAID and ultram pt takes norco PRn for pain and doing ok. Pt denies any worsening pain. Pt denies any neuropathy pain Pt has chronic r ight ankle pain. Pt has arthritis. Pt failed NSAID and ultram pt takes norco PRn for pain and doing ok. Pt denies any worsening pain. Pt denies any neuropathy anxiety Pt has chronic a nxiety and insomnia. Pt takes xanax qhs PRn and doing ok, Pt denies any depression or any suicidal thought. Pt denies any crying spells Pt doing ok with xanax qhs PRN pain Pt has chronic r ight ankle pain. Pt has arthritis. Pt failed NSAID and ultram pt takes norco PRn for pain and doing ok. Pt denies any worsening pain. Pt denies any neuropathy anxiety Pt has chronic a nxiety and insomnia. Pt takes xanax qhs PRn and doing ok, Pt denies any depression or any suicidal thought. Pt denies any crying spells Pt doing ok with xanax qhs PRN COPD1 Pt has COPD Pt u ses incruse and he uses albuterol 1-2 per day Pt denies any hemoptysis, cough pain Pt has chronic r ight ankle pain. Pt has arthritis. Pt failed NSAID and ultram pt takes norco PRn for pain and doing ok. Pt denies any worsening pain. Pt denies any neuropathy anxiety Pt has chronic a nxiety and insomnia. Pt takes xanax qhs PRn and doing ok, Pt denies any depression or any suicidal thought. Pt denies any crying spells Pt doing ok with xanax qhs PRN pain Pt has chronic r ight ankle pain. Pt has arthritis. Pt failed NSAID and ultram pt takes norco PRn for pain and doing ok. Pt denies any worsening pain. Pt denies any neuropathy anxiety1 Pt has chronic a nxiety and insomnia. Pt takes xanax qhs PRn and doing ok, Pt denies any depression or any suicidal thought. Pt denies any crying spells Pt doing ok with xanax qhs PRN COPD1 Pt has COPD Pt i s on incruse Pt uses albuterol 1-2 per day Pt needs albuterol refilled . bladder Ca Pt has bladder C A s/p tumor removal and s/p right kidney CA removal. Pt is seeing urology Pt supposes to do have cysto for recheck for bladder CA. Pt denies any urinary symptoms pain Pt has chronic r ight ankle pain. Pt has arthritis. Pt failed NSAID and ultram pt takes norco PRn for pain and doing ok. Pt denies any worsening pain. Pt denies any neuropathy anxiety The patient pres ents with anxious/fearful thoughts but denies fatigue. The patient denies any nausea, urinary frequency, vomiting and weight gain. Additional information: Pt has chronic anxiety and insomnia. Pt takes xanax qhs PRn and doing ok, Pt denies any depression or any suicidal thought. Pt denies any crying spells Pt doing ok with xanax qhs PRN. thyroid1 Pt has hypothyro idism. Pt takes synthroid and TSh ok Pt denies any dysphagia or neck pain HLP Pt has HLP Pt ta kes lipitor and his lipid profile is ok Pt denies any myalgia physical Pt needs annual physical .Pt has COPD Pt uses incruse and albuterol pt denies any worsening sob, any cough or hemoptysis. Pt has insomnia and anxiety Pt takes xanax qhs Pt has chronic pain Pt takes norco PRN for pain. Pt has CAD with stent Pt sees cardiology. Pt denies any chest pain. Pt has hypothyroidism Pt takes synthroid. 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 Pt takes omeprazole and doing ok. 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 He denies any urinary symptoms pain Pt has chronic r ight ankle pain. Pt has arthritis. Pt failed NSAID and ultram pt takes norco PRn for pain and doing ok. Pt denies any worsening pain. Pt denies any neuropathy anxiety Pt has chronic a nxiety and insomnia. Pt takes xanax qhs PRn and doing ok, Pt denies any depression or any suicidal thought. Pt denies any crying spells Pt doing ok with xanax qhs PRN COPD1 Pt has COPD Pt i s still smoking Pt uses incruse daily and he uses albuterol 2-3 per week Pt denies any hemoptysis, worsening sob or any cough pain Pt has chronic r ight ankle pain. Pt has arthritis. Pt failed NSAID and ultram pt takes norco PRn for pain and doing ok. Pt denies any worsening pain. Pt denies any neuropathy anxiety Pt has chronic a nxiety and insomnia. Pt takes xanax qhs PRn and doing ok, Pt denies any depression or any suicidal thought. Pt denies any crying spells Pt doing ok with xanax qhs PRN pain Pt has chronic r ight ankle pain. Pt has arthritis. Pt failed NSAID and ultram pt takes norco PRn for pain and doing ok. Pt denies any worsening pain. Pt denies any neuropathy hypothyroidism1 Pt has hypothyro idism Pt denies any dysphagia or neck pain. Pt needs synthroid refilled . anxiey1 Pt has chronic a nxiety and insomnia. Pt takes xanax qhs PRn and doing ok, Pt denies any depression or any suicidal thought. Pt denies any crying spells Pt doing ok with xanax qhs PRN anxiety1 Pt has chronic a nxiety and insomnia. Pt takes xanax qhs PRn and doing ok, Pt denies any depression or any suicidal thought. Pt denies any crying spells Pt doing ok with xanax qhs PRN pain Pt has chronic r ight ankle pain. Pt has arthritis. Pt failed NSAID and ultram pt takes norco PRn for pain and doing ok. Pt denies any worsening pain. Pt denies any neuropathy pain Pt has chronic r ight ankle pain. Pt has arthritis. Pt failed NSAID and ultram pt takes norco PRn for pain and doing ok. Pt denies any worsening pain. Pt denies any neuropathy pain anxiety1 Pt has chronic a nxiety and insomnia. Pt takes xanax qhs PRn and doing ok, Pt denies any depression or any suicidal thought. Pt denies any crying spells Pt doing ok with xanax qhs PRN pain Pt has chronic r ight ankle pain. Pt has arthritis. Pt failed NSAID and ultram pt takes norco PRn for pain and doing ok. Pt denies any worsening pain. Pt denies any neuropathy anxiety1 Pt has chronic a nxiety and insomnia. Pt takes xanax qhs PRn and doing ok, Pt denies any depression or any suicidal thought. Pt denies any crying spells Pt doing ok with xanax qhs PRN anxiety Pt has chronic a nxiety and insomnia. Pt takes xanax qhs PRn and doing ok, Pt denies any depression or any suicidal thought. Pt denies any crying spells Pt doing ok with xanax qhs PRN hypothyroidism1 Pt has hypothyro idism Pt denies any dysphagia or neck pain pain Pt has chronic r ight ankle pain. Pt has arthritis. Pt failed NSAID and ultram pt takes norco PRn for pain and doing ok. Pt denies any worsening pain. Pt denies any neuropathy pain Pt has chronic r ight ankle pain. Pt has arthritis. Pt failed NSAID and ultram pt takes norco PRn for pain and doing ok. Pt denies any worsening pain. Pt denies any neuropathy anxiety1 Pt has chronic a nxiety and insomnia. Pt takes xanax qhs PRn and doing ok, Pt denies any depression or any suicidal thought. Pt denies any crying spells Pt doing ok with xanax qhs PRN bladder CA1 Pt has recurrenc e bladder neoplasm. Pt underwent laser ablation recently and he was told that his left kidney tumor was benign. Pt is doing ok post op. Pt has normal UO PAIN Pt has chronic r ight ankle pain. Pt has arthritis. Pt failed NSAID and ultram pt takes norco PRn for pain and doing ok. Pt denies any worsening pain. Pt denies any neuropathy anxiety1 Pt has chronic a nxiety and insomnia. Pt takes xanax qhs PRn and doing ok, Pt denies any depression or any suicidal thought. Pt denies any crying spells Pt doing ok with xanax qhs PRN pain Pt has chronic r ight ankle pain. Pt has arthritis. Pt failed NSAID and ultram pt takes norco PRn for pain and doing ok. Pt denies any worsening pain. Pt denies any neuropathy anxiety1 Pt has chronic a nxiety and insomnia. Pt takes xanax qhs PRn and doing ok, Pt denies any depression or any suicidal thought. Pt denies any crying spells Pt doing ok with xanax qhs PRN GERD1 Pt has long carlotta ding history of cervantes. Pt takes omeprazole. Pt had EGD done recently which did not show any cervantes. Pt feels well. Pt denies any nausea, vomiting, hematemesis anxiety1 Pt has chronic a nxiety and insomnia. Pt takes xanax qhs PRn and doing ok, Pt denies any depression or any suicidal thought. Pt denies any crying spells Pt doing ok with xanax qhs PRN pain Pt has chronic r ight ankle pain. Pt has arthritis. Pt failed NSAID and ultram pt takes norco PRn for pain and doing ok. Pt denies any worsening pain. Pt denies any neuropathy hemaemesis1 Pt has cervantes a nd recent hematemesis. Pt cut down alcohol and he has not had any further episodes. Pt is on sulfate and omeprazole and doing ok. Pt denies any abd pain. Pt has cezar for EGD soon kidney tumor1 Pt has left kidn ey mass and bladder CA Pt is seeing urology and he will do exploratory surgery next week hematemesis1 Pt recently had some beers and he started to have vomiting with some bloody vomitus with some abd pain and some chest pain Pt does have cervantes and he is on omeprazole chronically Pt went to ER and he was admitted and he saw cardiology and rule out cardiac disease. He had benign cardiac echo and CTA of chest. Pt did see GI doctor and the conclusion is that his symptoms are due to GI issue. He does drink more alcohol than usual. Pt currently feels fine now. Pt denies any nausea, vomiting .Pt denies any abd pain Pt is on sucralfate now. Pt did have some violent vomiting. Pt denies any abd pain with radiation to back pain Pt has chronic r ight ankle pain. Pt has arthritis. Pt failed NSAID and ultram pt takes norco PRn for pain and doing ok. Pt denies any worsening pain. Pt denies any neuropathy insomnia1 Pt has chronic a nxiety and insomnia. Pt takes xanax qhs PRn and doing ok, Pt denies any depression or any suicidal thought. Pt denies any crying spells Pt doing ok with xanax qhs PRN physical Pt needs annual physical .Pt has COPD Pt uses incruse and albuterol pt denies any worsening sob, any cough or hemoptysis. Pt has insomnia and anxiety Pt takes xanax qhs Pt has chronic pain Pt takes norco PRN for pain. Pt has CAD with stent Pt sees cardiology. Pt denies any chest pain. Pt has hypothyroidism Pt takes synthroid and his TSH is ok pt denies any dysphagia or neck pain, Pt also has cervantes Pt takes omeprazole and doing ok HTN Pt has HTN and H LP with CAD .Pt denies any chest pain Pt sees cardiology .Pt takes coreg, lisinopril, lipitor and plavix Pt denies any chest pain thyroid1 Pt has hypothyro idism. Pt denies any dysphagia or neck pain Pt takes synthroid bladder CA Pt has bladder a nd kidney neoplasm Pt sees urology ,Pt had negative cysto recently and was told that he is cancer free. Pt pain Pt has chronic r ight ankle pain. Pt has arthritis. Pt failed NSAID and ultram pt takes norco PRn for pain and doing ok. Pt denies any worsening pain. Pt denies any neuropathy insomnia1 Pt has chronic a nxiety and insomnia. Pt takes xanax qhs PRn and doing ok, Pt denies any depression or any suicidal thought. Pt denies any crying spells Pt doing ok with xanax qhs PRN pain Pt has chronic r ight ankle pain. Pt has arthritis. Pt failed NSAID and ultram pt takes norco PRn for pain and doing ok. Pt denies any worsening pain. Pt denies any neuropathy insomnia1 Pt has chronic a nxiety and insomnia. Pt takes xanax qhs PRn and doing ok, Pt denies any depression or any suicidal thought. Pt denies any crying spells Pt doing ok with xanax qhs PRN kidney1 Pt has ? right k idney mass and he underwent biopsy last year but he never the results. he does have bladder tumor and he is being treated by urology and oncology COPD1 Pt has COPD Pt i s on incruse and doing ok. Pt denies any worsening sob or any cough or hemoptysis. His LDCT is ok pain Pt has chronic r ight ankle pain. Pt has arthritis. Pt failed NSAID and ultram pt takes norco PRn for pain and doing ok. Pt denies any worsening pain. Pt denies any neuropathy insomnia1 Pt has chronic a nxiety and insomnia. Pt takes xanax qhs PRn and doing ok, Pt denies any depression or any suicidal thought. 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 Pt denies any hemoptysis, worsening sob or cough Pt needs LDCT bladder CA1 Pt has bladder C A and kidney CA. S/p ablation of the kidney and he is getting chemo now by urology Pt denies any hematuria, urinary symptoms pain Pt has chronic r ight ankle pain. Pt has arthritis. Pt failed NSAID and ultram pt takes norco PRn for pain and doing ok. Pt denies any worsening pain. Pt denies any neuropathy insomnia1 Pt has chronic a nxiety and insomnia. Pt takes xanax qhs PRn and doing ok, Pt denies any depression or any suicidal thought. Pt denies any crying spells Pt doing ok with xanax qhs PRN pain Pt has chronic r ight ankle pain. Pt has arthritis. Pt failed NSAID and ultram pt takes norco PRn for pain and doing ok. Pt denies any worsening pain. Pt denies any neuropathy insomnia1 Pt has chronic a nxiety and insomnia. Pt takes xanax qhs PRn and doing ok, Pt denies any depression or any suicidal thought. Pt denies any crying spells Pt doing ok with xanax qhs PRN pain Pt has chronic r ight ankle pain. Pt has arthritis. Pt failed NSAID and ultram pt takes norco PRn for pain and doing ok. Pt denies any worsening pain. Pt denies any neuropathy insomnia1 Pt has chronic a nxiety and insomnia. Pt takes xanax qhs PRn and doing ok, Pt denies any depression or any suicidal thought. Pt denies any crying spells Pt doing ok with xanax qhs PRN barrett1 pt has cervantes a nd diverticulosis. Pt takes omeprazole. Pt denies any abd pain or weight loss or lower GI symptoms pain Pt has chronic r ight ankle pain. Pt has arthritis. Pt failed NSAID and ultram pt takes norco PRn for pain and doing ok. Pt denies any worsening pain. Pt denies any neuropathy insomnia1 Pt has chronic a nxiety and insomnia. Pt takes xanax qhs PRn and doing ok, Pt denies any depression or any suicidal thought. Pt denies any crying spells Pt doing ok with xanax qhs PRN COPD1 Pt has COPD .Pt still smoking Pt uses incruse daily and he uses albuterol on average 2-3 per week Pt enmanuel any hemoptysis, worsening sob or cough thyroid1 Pt has hypothyro idism. pt needs synthroid refilled. Pt denies any dysphagia or neck pain CAD Pt has CAD. Pt t akes plavix, lisinopril, lipitor and coreg. Pt has history of stent. pt just saw cardiology and he had in office lipid panel done and he was told that he is doing ok. He denies any chest pain pain Pt has chronic r ight ankle pain. Pt has arthritis. Pt failed NSAID and ultram pt takes norco PRn for pain and doing ok. Pt denies any worsening pain. Pt denies any neuropathy insomnia1 Pt has chronic a nxiety and insomnia. Pt takes xanax qhs PRn and doing ok, Pt denies any depression or any suicidal thought. Pt denies any crying spells Pt doing ok with xanax qhs PRN pain Pt has chronic r ight ankle pain. Pt has arthritis. Pt failed NSAID and ultram pt takes norco PRn for pain and doing ok. Pt denies any worsening pain. Pt denies any neuropathy insomnia1 Pt has chronic a nxiety and insomnia. Pt takes xanax qhs PRn and doing ok, Pt denies any depression or any suicidal thought. Pt denies any crying spells Pt doing ok with xanax qhs PRN pain Pt has chronic r ight ankle pain. Pt has arthritis. Pt failed NSAID and ultram pt takes norco PRn for pain and doing ok. Pt denies any worsening pain. Pt denies any neuropathy insomnia1 Pt has chronic a nxiety and insomnia. Pt takes xanax qhs PRn and doing ok, Pt denies any depression or any suicidal thought. Pt denies any crying spells Pt doing ok with xanax qhs PRN pain Pt has chronic r ight ankle pain Pt has arthritis Pt failed NSAID and ultram pt takes norco PRn for pain and doing ok. Pt denies any worsening pain. Pt denies any neuropathy insomnia1 Pt has chronic a nxiety and insomnia. Pt takes xanax qhs PRn and doing ok, Pt denies any depression or any suicidal thought. Pt denies any crying spells Pt doing ok with xanax qhs PRN Barrett Pt has cervantes e sophagus. Pt takes omeprazole .Pt saw GI recently and he is scheduled for EGD and colonoscopy In October. Pt denies any abd pain or nausea, vomiting Pt denies any denies any actual GI issue renal CA Pt has left RCC. Pt sees urology and he will have left kidney rechecked next month Pt already had left renal CC removed. pain Pt has chronic r ight ankle pain Pt has arthritis Pt failed NSAID and ultram pt takes norco PRn for pain and doing ok. Pt denies any worsening pain. Pt denies any neuropathy insomnia Pt has chronic a nxiety and insomnia. Pt takes xanax qhs PRn and doing ok, Pt denies any depression or any suicidal thought. Pt denies any crying spells Pt doing ok with xanax qhs PRN vitamin D Pt has low D. Pt takes vitamin d weekly and his D is ok Pt needs it refilled colon polyp Pt has history o f colon polyp but benign per patient. Pt had colonoscopy 2015 which was benign without polyp He was told to repeat colonoscopy 2020 but never did. Pt tried to call Dr. Ross office multiple times but was never received a call back regarding above. pt denies any lower GI issue emphysema Pt has emphysema Pt denies any hemoptysis, worsening and cough Pt uses incruse Pt needs albuterol refilled physical Pt needs annual physical. Pt has chronic pain Pt takes norco PRn for pain and doing ok Pt has insomnia and anxiety Pt takes xanax qhs PRn and doing ok. Pt has hypothyroidism. Pt takes synthroid. Pt has COPD .Pt takes incruse and he uses ventolin 1-2 per week. pt has cervantes Pt takes omeprazole and doing ok. Pt has CAD with stent Pt takes lipitor, lisinopril, coreg and plavix .Pt sees cardiology Pt denies any chest pain Pt has residual bladder CA. Pt sees urology and had bladder tumor removed and he also has renal cancer and he had renal tumor removed as well. He developed post surgery UTI and had to go to Er and had abx. Pt denies any blood in urine now. He denies any fever, chill, flank pain Pt has normal UO CAD1 Pt has CAD with stent. Pt denies any chest pain, sob. Pt takes plavix and ASA. Pt has HLP. Pt takes plavix also. thyroid1 Pt has hypothyro idism. Pt takes synthroid Pt denies any dysphagia or neck pain. bladder tumor1 Pt has bladder t umor s/p removal by urology recently and he developed UTI afterward and he went to ER and received IV abx and he is doing ok now Pt also has right renal cancer which was just discovered and he will go local treatment by urology soon .Pt denies any flank pain insomnia1 Pt has chronic a nxiety and insomnia. Pt takes xanax qhs PRn and doing ok, Pt denies any depression or any suicidal thought. Pt denies any crying spells Pt doing ok with xanax qhs PRN pain Pt has chronic r ight ankle pain Pt has arthritis Pt failed NSAID and ultram pt takes norco PRn for pain and doing ok. Pt denies any worsening pain. Pt denies any neuropathy bladder CA Pt has bladder C A Pt denies any urinary symptoms Pt is seeing urology and he has recurrence of bladder neoplasm and he will have surgery soon tobacco Pt has 55 pack y ear tobacco smoking Pt has COPD Pt uses inhalers Pt denies any hemoptysis, worsening sob or cough Pt had LDCT done and is ok insomnia1 Pt has chronic a nxiety and insomnia. Pt takes xanax qhs PRn and doing ok, Pt denies any depression or any suicidal thought. Pt denies any crying spells Pt doing ok with xanax qhs PRN GERD1 Pt has cervantes. Pt had EGD 2019 and colonoscopy 2015. He supposes to see GI last year but cezar was canceled. He called GI and was told to come back to see GI around December of 2021. Pt doing ok with omeprazole pain Pt has chronic r ight ankle pain Pt has arthritis Pt failed NSAID and ultram pt takes norco PRn for pain and doing ok. Pt denies any worsening pain. Pt denies any neuropathy pain Pt has chronic r ight ankle pain Pt has arthritis Pt failed NSAID and ultram pt takes norco PRn for pain and doing ok. Pt denies any worsening pain. Pt denies any neuropathy insomnia1 Pt has chronic a nxiety and insomnia. Pt takes xanax qhs PRn and doing ok, Pt denies any depression or any suicidal thought. Pt denies any crying spells Pt doing ok with xanax qhs PRN tobacco1 Pt has 55 pack y ear tobacco smoking Pt has COPD Pt uses inhalers Pt denies any hemoptysis, worsening sob or cough Pt needs LDCT GERD1 Pt has cervantes. Pt had EGD 2019 and colonoscopy 2015. He supposes to see GI last year but cezar was canceled. He has not contacted GI yet bladder CA Pt has bladder C A Pt supposes to [facility] urology but his cezar was again canceled. Pt did call urology at [facility] who he used to see and they did get a new urologist and he has cezar with new urologist on 03/16/21. pt denies any urinary symptoms or blood in urine pain Pt has chronic r ight ankle pain Pt has arthritis Pt failed NSAID and ultram pt takes norco PRn for pain and doing ok. Pt denies any worsening pain. Pt denies any neuropathy insomnia1 Pt has chronic a nxiety and insomnia. Pt takes xanax qhs PRn and doing ok, Pt denies any depression or any suicidal thought. Pt denies any crying spells Pt doing ok with xanax qhs PRN GERD1 Pt has cervantes. Pt takes omeprazole. Pt denies any GERD. bladder CA1 Pt has bladder C A. Pt was referred to urology of [facility] and he tried to call for cezar but urology kept telling her that they will call her back but they never did. Pt denies any urinary symptoms insomnia Pt has chronic a nxiety and insomnia. Pt takes xanax qhs PRn and doing ok, Pt denies any depression or any suicidal thought. Pt denies any crying spells Pt doing ok with xanax qhs PRN thyroid1 Pt has hypothyro idism Pt takes synthroid Pt denies any dysphagia or neck pain bladder CA Pt has bladder C A pt denies any urinary symptoms PT has not heard from urology yet pain Pt has chronic r ight ankle pain Pt has arthritis Pt failed NSAID and ultram pt takes norco PRn for pain and doing ok. Pt denies any worsening pain. Pt denies any neuropathy pain Pt has chronic r ight ankle pain Pt has arthritis Pt failed NSAID and ultram pt takes norco PRn for pain and doing ok. Pt denies any worsening pain. Pt denies any neuropathy insomnia Pt has chronic a nxiety and insomnia. Pt takes xanax qhs PRn and doing ok, Pt denies any depression or any suicidal thought. Pt denies any crying spells Pt doing ok with xanax qhs PRN COPD Pt has COPD. pt uses incruse and ventolin PRn Pt only uses ventolin 1-2 per week Pt denies any hemoptysis, worsening sob or cough Pt had normal LDCT bladder CA Pt has history o f bladder CA. s/p resection with recurrence. Pt last saw urology January 2020 but he has not followed up since. Pt states that urologist no longer there and they told him that he does not need to be seen just yet and they will contact him. Pt supposes to have cezar with urology this summer but was postponed Pt denies any blood in urine or any urinary difficulty pain Pt has chronic r ight ankle pain Pt has arthritis Pt failed NSAID and ultram pt takes norco PRn for pain and doing ok. Pt denies any worsening pain. Pt denies any neuropathy insomnia Pt has chronic a nxiety and insomnia. Pt takes xanax qhs PRn and doing ok, Pt denies any depression or any suicidal thought. Pt denies any crying spells Pt doing ok with xanax qhs PRN tobacco1 Pt has 54 pack y ear tobacco smoking. Pt still smoking pt denies any cough, hemoptysis, or worsening sob. Pt uses incruse and ventolin 1-2 per week Pt denies any acute sob renal Pt recently had some taco and then developed some GI issue and started to have persistent vomiting with mild abd pain and he thinks that he passed out briefly and he was transferred to ER via ambulance.. He was found to be severely dehydrated with low kcl, high wbc and low renal. He had benign CT of abdomen and pelvis and head CT. He was re-hydrated and got some nausea med and they took him off coreg temporarily and he supposes to see cardiology this week and discuss about coreg. His bp is slightly high. Pt currently denies any GI issue or dizziness. he is eating and drinking ok now. his renal function and kcl were ok upon discharge. his wbc were ok also upon discharge pain Pt has chronic r ight ankle pain Pt has arthritis Pt failed NSAID and ultram pt takes norco PRn for pain and doing ok. Pt denies any worsening pain. Pt denies any neuropathy insomnia1 Pt has chronic a nxiety and insomnia. Pt takes xanax qhs PRn and doing ok, Pt denies any depression or any suicidal thought. Pt denies any crying spells Pt doing ok with xanax qhs PRN pain1 Pt has chronic r ight ankle pain Pt has arthritis Pt failed NSAID and ultram pt takes norco PRn for pain and doing ok. Pt denies any worsening pain. Pt denies any neuropathy insomnia1 Pt has chronic a nxiety and insomnia. Pt takes xanax qhs PRn and doing ok, Pt denies any depression or any suicidal thought. Pt denies any crying spells Pt doing ok with xanax qhs PRN cervantes Pt has helen cardona. Pt supposes to have EGD done this year with Dr. Grove but the cezar was canceled by GI and he is not sure why. Pt doing ok with omeprazole. weight loss1 Pt lost 10 pound s since last month, although he is not sure since he was reporting his weight from tele visit and he did not actually checked his weight pt denies any appetite loss, nausea, vomiting, diarrhea, change of bowel, early satiety, etc pain Pt has chronic r ight ankle pain Pt has arthritis Pt failed NSAID and ultram pt takes norco PRn for pain and doing ok. Pt denies any worsening pain. Pt denies any neuropathy insomna1 Pt has chronic a nxiety and insomnia. Pt takes xanax qhs PRn and doing ok, Pt denies any depression or any suicidal thought. Pt denies any crying spells Pt doing ok with xanax qhs PRN pain Pt has chronic r ight ankle pain Pt has arthritis Pt failed NSAID and ultram pt takes norco PRn for pain and doing ok. Pt denies any worsening pain. Pt denies any neuropathy insomnia1 Pt has chronic a nxiety and insomnia. Pt takes xanax qhs PRn and doing ok, Pt denies any depression or any suicidal thought. Pt denies any crying spells Pt doing ok with xanax qhs PRN vitamin D Pt has low D .Pt is on vitamin D 50,000 weekly. Pt needs refill pain Pt has chronic r ight ankle pain Pt has arthritis Pt failed NSAID and ultram pt takes norco PRn for pain and doing ok. Pt denies any worsening pain insomnia1 Pt has chronic a nxiety and insomnia. Pt takes xanax qhs PRn and doing ok, Pt denies any depression or any suicidal thought. Pt denies any crying spells Pt doing ok with xanax qhs PRN insomnia1 Pt has chronic a nxiety and insomnia. Pt takes xanax qhs PRn and doing ok, Pt denies any depression or any suicidal thought. Pt denies any crying spells Pt doing ok with xanax qhs PRN COPD1 Pt has COPD Pt u ses incruse daily ,pt uses ventolin 1-2 per day. Pt denies any hemoptysis, worsening sob Pt needs ventolin refilled .Pt still smoking pain Pt has chronic r ight ankle pain Pt has arthritis Pt failed NSAID and ultram pt takes norco PRn for pain and doing ok. Pt denies any worsening pain physical Pt needs annual physical. Pt has chronic pain Pt takes norco PRn for pain and doing ok Pt has insomnia and anxiety Pt takes xanax qhs PRn and doing ok. Pt has hypothyroidism. Pt takes synthroid. Pt has COPD .Pt takes incruse and he uses ventolin 1-2 per week. pt has cervantes Pt takes omeprazole and doing ok. Pt has CAD with stent Pt takes lipitor, lisinopril, coreg and plavix .Pt sees cardiology Pt denies any chest pain Pt has residual bladder CA. Pt just had another surgery by urology Pt denies any other complaints pain Pt has chronic r ight ankle pain Pt has arthritis Pt failed NSAID and ultram pt takes norco PRn for pain and doing ok. Pt denies any worsening pain insomnia1 Pt has chronic a nxiety and insomnia. Pt takes xanax qhs PRn and doing ok, Pt denies any depression or any suicidal thought. Pt denies any crying spells Pt doing ok with xanax qhs PRN COPD1 P has COPD. Pt t akes incruse and albuterol Prn. Pt denies any hemoptysis. Pt denies any worsening sob. Pt needs incruse refilled . pain1 Pt has chronic r ight ankle pain Pt has arthritis Pt failed NSAID and ultram pt takes norco PRn for pain and doing ok. Pt denies any worsening pain insomnia1 Pt has chronic a nxiety and insomnia. Pt takes xanax qhs PRn and doing ok, Pt denies any depression or any suicidal thought. Pt denies any crying spells Pt doing ok with xanax qhs PRN hypothyroidism1 Pt has hypothyro idism. Pt takes synthroid. his TSH is ok Pt denies any dysphagia or neck pain HLP Pt has HLP .Pt t akes lipitor and his lipid profile is ok. CAD1 Pt has CAD with stent. PT takes lipitor, coreg and plavix and also lisinopril. His bp is around 120/70. Pt denies any chest pain. Pt denies any myalgia pain Pt has chronic r ight ankle pain Pt has arthritis Pt failed NSAID and ultram pt takes norco PRn for pain and doing ok. Pt denies any worsening pain insomnia1 Pt has chronic a nxiety and insomnia. Pt takes xanax qhs PRn and doing ok, Pt denies any depression or any suicidal thought. Pt denies any crying spells Pt doing ok with xanax qhs PRN hypothyroidism1 Pt has low thyro id. Pt doing ok with synthroid Pt denies any dysphagia or neck pain insomnia1 Pt has chronic a nxiety and insomnia. Pt takes xanax qhs PRn and doing ok, Pt denies any depression or any suicidal thought. Pt denies any crying spells Pt doing ok with xanax qhs PRN pain Pt has chronic r ight ankle pain Pt has arthritis Pt failed NSAID and ultram pt takes norco PRn for pain and doing ok. Pt denies any worsening pain tobacco1 Pt denies any he moptysis, worsening sob or cough. LDCT ok pain Pt has chronic r ight ankle pain Pt has arthritis Pt failed NSAID and ultram pt takes norco PRn for pain and doing ok. Pt denies any worsening pain insomnia1 Pt has chronic a nxiety and insomnia. Pt takes xanax qhs PRn and doing ok, Pt denies any depression or any suicidal thought. Pt denies any crying spells Pt doing ok with xanax qhs PRN tobacco Pt needs LDCT, w hich is approved pt still smoking Pt denies any worsening sob or cough. Pt denies any hemoptysis COPD1 Pt has COPD Pt u ses incruse once per day Pt takes albuterol once per day on average Pt needs refill. pain Pt has chronic r ight ankle pain Pt has arthritis Pt failed NSAID and ultram pt takes norco PRn for pain and doing ok. Pt denies any worsening pain insomnia1 Pt has chronic a nxiety and insomnia. Pt takes xanax qhs PRn and doing ok, Pt denies any depression or any suicidal thought. Pt denies any crying spells Pt doing ok with xanax qhs PRN tobacco1 Pt has more than 30 pack year tobacco. PT needs LDCT .Pt denies any hemoptysis, worsening sob or cough pain Pt has chronic r ight ankle pain Pt has arthritis Pt failed NSAID and ultram pt takes norco PRn for pain and doing ok. Pt denies any worsening pain insomnia1 Pt has chronic a nxiety and insomnia. Pt takes xanax qhs PRn and doing ok, Pt denies any depression or any suicidal thought. Pt denies any crying spells Pt doing ok with xanax qhs PRN COPD1 Pt has COPD. Pt takes albuterol 1-2 per week. Pt uses incruse daily Pt denies any hemoptysis, worsening sob or cough bladder CA1 Pt denies any bl ood in urine. Pt has cezar with urology in one week for cysto pain1 Pt has chronic r ight ankle pain Pt has arthritis Pt failed NSAID and ultram pt takes norco PRn for pain and doing ok. Pt denies any worsening pain anxiety1 Pt has chronic a nxiety and insomnia. Pt takes xanax qhs PRn and doing ok, Pt denies any depression or any suicidal thought. Pt denies any crying spells Pt doing ok with xanax qhs PRN pain Pt has chronic r ight ankle pain Pt has arthritis Pt failed NSAID and ultram pt takes norco PRn for pain and doing ok. Pt denies any worsening pain anxiety1 Pt has chronic a nxiety and insomnia. Pt takes xanax qhs PRn and doing ok, Pt denies any depression or any suicidal thought. Pt denies any crying spells Pt doing ok with xanax qhs PRN D Pt has low D. Pt has been taking vitamin d weekly Pt needs refill pain Pt has chronic r ight ankle pain Pt has arthritis Pt failed NSAID and ultram pt takes norco PRn for pain and doing ok anxiety1 Pt has chronic a nxiety and insomnia. Pt takes xanax qhs PRn and doing ok, Pt denies any depression or any suicidal thought. Pt denies any crying spells Pt doing ok with xanax qhs PRN HTn Pt has HTN Pt ta kes lisinopril and coreg ,Pt doing ok pt denies any chest pain. His BP is borderline. he denies any headache bladder1 Pt has bladder t umor .Pt is being treated by urology. 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 Pt doing ok ,Pt denies any abd pain anxiety1 Pt has chronic a nxiety and insomnia. Pt takes xanax qhs PRn and doing ok, Pt denies any depression or any suicidal thought. Pt denies any crying spells Pt doing ok with xanax qhs PRN pain1 Pt has chronic r ight ankle pain Pt has arthritis Pt failed NSAID and ultram pt takes norco PRn for pain and doing ok anxiety1 Pt has chronic a nxiety and insomnia. Pt takes xanax qhs PRn and doing ok, Pt denies any depression or any suicidal thought. Pt denies any crying spells Pt doing ok with xanax qhs PRN pain1 Pt has chronic r ight ankle pain Pt has arthritis Pt failed NSAID and ultram pt takes norco PRn for pain and doing ok copd Pt has COPD Pt s mokes still. Pt uses incruse Pt uses albuterol 1-2 per day Pt denies any hemoptysis, worsening sob or cough Barrett1 Pt takes omepraz ole. Pt has cezar for EGD net month CAD pt has CAD with stent. Pt denies any chest pain Pt just saw his spinning doffer and was cleared for another year. anxiety1 Pt has chronic a nxiety and insomnia. Pt takes xanax qhs PRn and doing ok, Pt denies any depression or any suicidal thought. 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 Pt needs EGD soon Pt denies any GERD COPD1 Pt has COPD Pt t akes incruse. Pt uses ventolin 1-2 per day Pt denies any hemoptysis, sob or cough anxiety1 Pt has chronic a nxiety and insomnia. Pt takes xanax qhs PRn and doing ok, Pt denies any depression or any suicidal thought. Pt denies any crying spells Pt doing ok with xanax qhs PRN HTN pt has HTN. pt t akes lisinopril and coreg pt has CAD with stent pt denies any chest pain, Pt is on plavix and ASA bladder CA Pt is s/p bladde r surgery post bladder CA Pt denies any UTI symptoms Pt has cezar with urology in two weeks for follow up chronic pain1 Pt has chronic r ight ankle pain Pt has arthritis Pt failed NSAID and ultram pt takes norco PRn for pain and doing ok physical Pt needs annual physical. Pt has chronic right ankle pain Pt takes norco for pain. pt has insomnia. P takes xanax qhs PRN pt has GERD Pt takes omeprazole. Pt has cervantes esophagus. Pt has copd. Pt takes incruse and he uses ventolin 1-2 per day. Pt denies any hemoptysis, worsening sob or cough. Pt has been using ventolin regularly instead of PRN Pt has low thyroid P takes synthroid. Pt has CAD with stent. Pt take coreg, lipitor and lisinopril Pt sees cardiology. pt denies any chest pain pt denies any new complaints chronic pain1 Pt has chronic r ight ankle pain Pt has arthritis Pt failed NSAID and ultram pt takes norco PRn for pain and doing ok insomnia1 Pt has chronic a nxiety and insomnia. Pt takes xanax qhs PRn and doing ok, Pt denies any depression or any suicidal thought COPD Pt takes incruse daily. Pt takes ventolin 1-2 per week Pt needs ventolin refilled HTN Pt has HTN with CAD Pt takes coreg and lisinopril. Pt has stent. Pt denies any chest pain His BP is borderline high today emphysema1 Pt has emphysema . Pt takes incruse daily. Pt still uses albuterol 1-2 per day. Pt overall feels much improved breathing pt still smoking Pt denies any hemoptysis, coughing or worsening sob GERD1 pt has cervantes P t takes omeprazole. Pt denies any GERD with omeprazole chronic pain1 Pt has chronic r ight ankle pain. pt denies any worsening pain pt has osteoarthritis pt failed NSAID. Pt takes norco PRN for pain and doing ok insomnia1 pt has insomnia. Pt takes xanax qhs PRN Pt denies any insomnia Pt doing ok chronic pain1 Pt disla chronic ri ght ankle pain Pt has arthritis pt denies any worsening pain Pt failed NSAID and ultram insomnia1 Pt has anxiety a nd insomnia Pt takes xanax qhs PRn pt denies any depression or any suicidal thought. Pt denies any crying spells chronic pain1 Pt disla chronic ri ght ankle pain Pt has arthritis pt denies any worsening pain Pt failed NSAID and ultram bladder tumor1 Pt has recurrent bladder tumor and he just underwent resection recently. Pt will get mitomycin weekly for 6 weeks starting next week .Pt did have some urinary symptoms which resolved currently. Pt states that he did notice some blood clot from urination which also resolved. insomnia1 Pt has insomnia. Pt takes xanax qhs PRn for insomnia and doing ok. Pt denies any snoring COPD1 Pt has COPD. Pt still smoking Pt denies any hemoptysis, worsening sob or coughing pt uses ventolin 1-2 per week. Pt also still smoking Pt needs LDCT. chronic pain Pt has chronic r ight ankle pain Pt has history of ankle injury with severe arthritis. pt failed NSAID and ultram Pt takes norco PRN for pain and doing ok. Pt denies any worsening pain anxiety1 Pt has chronic i nsomnia and mild anxiety at night. Pt denies any depression or any suicidal thought Pt denies any crying spells bladder CA Pt has recurrent bladder CA. Pt just seen urology and had normal prostate exam but there is recurrent bladder CA. Pt will go back for more surgery next week lung Pt denies any he moptysis, cough or worsening sob. Pt needs LDCT vitamin D1 Pt has low D. pt denies any fracture thyroid1 Pt has low thyro id. Pt takes synthroid. his TSH is ok chronic pain1 Pt has chronic a nkle pain Pt denies any worsening pain. pt denies any recent injury. Pt failed NSAID and ultram insomnia1 Pt has insomnia Pt takes xanax qhs PRN and doing ok Pt denies any snoring insomnia1 Pt has insomnia. Pt takes xanax qhs PRn Pt doing ok. chronic pain pt has chronic r ight ankle pain. Pt denies any worsening pain Pt denies any loss of bladder control lung Pt needs lung CA screening. Pt still smoking. Pt denies any coughing or hemoptysis chronci pain1 Pt has chronic r ight ankle pain Pt takes norco PRN for pain daily. pt has history of right ankle fracture Pt doing ok with current meds. Pt failed NSAID and ultram hypothyroidism1 Pt has low thyro id Pt doing ok with synthroid. CAD1 Pt sees cardiolo gy. Pt takes coreg, lisinopril and also lipitor. pt denies any myalgia. Pt denies any chest pain chronic pain1 Pt has chronic a nkle and leg pain. Pt denies any worsening pain. pt also has arthritis. Pt failed NSAID and ultram insomnia1 Pt has insomnia. Pt takes xanax qhs PRN and doing ok. Pt denies any depression or any suicidal thought. Pt denies any crying spells CAD1 Pt has CAD with stent. Pt sees cardiology. Pt just seen cardiology last week and was told everything is clear and he should continue current course. Pt denies any chest pain. P takes lisinopril,. lipitor, coreg, plavix. 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 Pt just seen GI. Pt will do EGD next year and colonoscopy 2020. Pt denies any GERD or GI issue Pt is on omeprazole bladder tumor1 Pt is seeing uro logy. Pt had left ureter stent placed recently. Pt has normal Urine output chronic pain1 Pt has chronic r ight ankle pain. Pt denies any worsening pain. Pt failed NSAID and ultram insomnia1 Pt takes xanax q hs PRN and doing ok. Pt denies any anxiety or depression or any suicidal thought chronic pain Pt has chronic r ight ankle pain Pt denies any worsening pain. Pt failed NSAID and ultram insomnia1 Pt has insomnia Pt takes xanax qhs PRn and doing ok. Pt denies any snoring bladder CA1 Pt has some resi dual bladder tumor and he will go back for surgery in two week. renal is ok chronic pain Pt has chronic r ight ankle pain. pt has severe arthritis. Pt takes norco Pt failed NSAID and ultram anxiety1 Pt has anxiety a nd insomnia Pt takes xanax qhs PRn and doing ok. pt denies any depression or any suicidal thought Pt denies any crying spells renal lesion Pt has left guillermina l lesion Pt told me he just had renal Ct done by urology. Pt was told he has cyst. pt also had more surgery done for bladder CA. Cervantes pt has cervantes e sophagus. pt takes omeprazole. Pt doing ok currently. Pt denies an GERD thyroid1 Pt has low thyro id. Pt takes synthroid Pt needs refill chronic pain1 Pt has chronic r ight ankle pain and he also has neck pain Pt has arthritis and also history of right ankle fracture. pt takes norco PRn for pain and doing ok insomnia1 Pt has insomnia Pt takes xanax qhs PRn and doing ok COPD1 Pt has COPD. pt takes incruse and ventolin PRN Pt denies any acute sob. Pt takes ventolin 1-2 per week bladder tumor1 Pt underwent zahraa marivel by Dr. Junior and was successful per pt. Physical PT needs annual physical. pt has bladder CA and he is seeing Dr. Junior in [place] and he will have the mass removed soon. Pt has chronic right leg pain. Pt takes norco for pain PRn. Pt has chronic anxiety. Pt denies any depression or any suicidal thought. pt denies any crying spells. Pt has CAD with stent. Pt takes lipitor, coreg, lisinopril, plavix. Pt denies any chest pain. Pt has low thyroid Pt takes synthroid. Pt has chronic GERD Pt takes omeprazole and doing ok. Pt denies any other complaints bladder CA Pt recently had a cysto which showed a bladder mass. His urine cytology is atypical also Pt denies any hematuria or pain kidney cyst1 Pt has left guillermina l lesion on Ct and he supposes to do MRi but he missed the deadline for the MRI. He just seen Dr Evaristo braun who is a urologist in [facility] who did the cysto and he told me the renal lesion is almost 100% sure a benign cyst. He did take the Ct to his radiologist over [facility] However, he is not in network with [facility] chronic pain1 Pt disla chronic ri ght ankle pain. Pt takes norco PRN for pain Pt failed NSAID insomnia1 Pt has chronic i nsomnia Pt takes xanax qhs PRn and doing ok chronic pain1 Pt has chronic r ight ankle pain Pt has history of ankle fracture in the past. Pt has arthritis. Pt takes norco PRn for pain anxiety1 Pt has chronic a nxiety and insomnia Pt takes xanax PRN pt enmanuel any depression or any suicidal or homicidal thought. Pt denies any crying spells COPD1 Pt uses incruse and he needs ventolin on average 1-2 per day Pt is doing much better Pt enmanuel any acute sob renal 1 Pt just seen uro logy in [facility]. He will do cystoscopy. pt has not done MRi yet chronic pain Pt has chronic r ight ankle pain Pt has history of fracture Pt failed NSAID Pt denies any worsening pain kidney1 Pt recently had CT of chest/abd/pelvis. There is a lesion on left kidney and also bladder suspicious for malignancy. Pt denies any pain. Pt denies any urinary symptoms insomnia1 Pt has insomnia Pt takes xanax qhs PRn and doing ok. Pt denies any snoring hypothyroidism Pt takes synthro id. His TSH is normal HLP Pt has HLP. Pt t akes lipitor. Pt denies any myalgia,, His lipid profile is ok chronic pain1 Pt has chronic r ight ankle pain due to arthritis. Pt takes norco PRN for pain PRN. pt failed NSAID and ultram insomnia1 Pt has insomnia. Pt takes xanax qhs PRn and doing ok. Pt denies any depression or any suicidal thought. Pt denies any crying spells. chronic pain Pt has chronic r ight ankle pain. Pt has history of fracture with arthritis. Pt failed NSADI, ultram. Pt takes norco PRN for pain and doing ok insomnia1 pt has insomnia. Pt takes xanax qhs PRN and doing ok CAD1 Pt has CAD with stent. Pt is seeing cardiology. Pt denies any chest pain. Pt takes baby ASA daily COPD1 Pt continues to smoke. Pt had normal LDCT. Pt doing ok with incruse and ventolin PRN Pt rarely uses ventolin. Pt denies any acute sob tobacco1 Pt has 40 pack y ear tobacco and he still smokes. Pt uses incruse and venotlin RPN. Pt uses ventolin about 1-2 per day. Pt denies any acute sob insomnia1 Pt has chronic i nsomnia Pt takes xanax qhs prn. Pt denies any snoring or any trouble with breathing at night chronic pain Pt has chronic r ight ankle pain due to history of fracture and arthritis. Pt doing ok with norco PRN for pain. Pt failed NSAID and also ultram and codeine Cervantes Pt has helen cardona. Pt takes omeprzole. pt deneis any GERd Pt just had EGD done last month and was told nothing changed tobacco1 Pt has 40 pack y ear tobacco. Pt has mild COPD. Pt uses incurse and venotlin PRN. Pt rarely uses venotlin. Pt denies any acute sob anxiety1 Pt has chronic a nxiety and insomnia Pt takes xanax PRn and doing ok Pt deneis any suicidal or homicidal thought. Pt deneis any crying spells chronic pain1 Pt has chronic r ight ankle pain. Pt denies any worsening pain. Pt denies any recent injury. Pt takes norco PRN for pain. Pt failed NSAID chronic pain1 Pt has chronic r ight ankle pain Pt has history of fracture. Pt denies any worsening pain. Pt went to see ortho and was told it is just arthritis and nothing can be done at this point. insomnia1 Pt has chronic i nsomnia and anxiety at night. Pt takes xanax qhs PRN and doing ok. Pt deneis any depression or any suicidal thought COPD1 Pt has mild copd . Pt states that incurse really helps. Pt uses venotlin 2-3 per day still but he feels much better in terms of breathing. Pt denies any acute sob. Pt still smoking about 1/2 PPD chronic pain1 Pt has chronic r ight ankle and foot pain. pt takes norco PRn for pain and doing ok insomnia1 Pt takes xanax q hs PRn and doing ok. 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 Pt is on omeparzole. Pt denies any GERD Pt will do EGD soon sob pt feels mild ex ertional sob sometimes, especially when he has intercourse. Pt feels sob about maybe about once per day. Pt denies any acute sob chronic pain1 Pt has chronic r ight ankle pain Pt denies any worsening pain. Pt needs handicap parking. insomnia1 Pt has insomnia and anxiety. Pt takes xana qhs PRN and doing ok. Pt denies any suiciadl or homicidal thought chrnoic pain Pt has chronic r ight ankle pain Pt has history of ankle fracture without any surgical repair. Pt has multiple ankle ligament tear and fragmentation of right ankle Pt seen ortho/podiatry in the past but was told nothing can be done due to chronic nature of it Pt sometimes has some burning feeling right heel area anxeity1 Pt has chronic a nxiety and insomnia. Pt takes xanax qhs PRn and doingo k. Pt denies any depression or any suicidal thought. Pt denies any cyring spells chronic pain1 Pt has chronic r ight ankle pain. pt has history of right ankle fracture with arthritis. Pt takes norco PRN for pain. Pt failed NSAID anxiety1 Pt has chronic a nxiety and insomnia Pt takes axnax PRN and doing ok. Pt denies any depression or any suicidal thought. Pt denies any cyring spells thyroid1 Pt has low thyro id. Pt takes synthroid. pt doing ok. PT needs refilled Barrett1 Pt has cervantes e sophagus. Pt is on omeprazole. Pt has appointment with GI next month. Pt denies any GERD symtpoms or abd pain anxiety1 Pt has chronic a nxiety and insomnia Pt takes xanax qhs PRN and doing ok Pt denies any depression or any suicidal thought Pt denies any crying spells ED Pt has ED Pt has been getting viagra from cardiology. Pt wants script from me Pt has stable CAD Pt denies any chset pain. Pt does not use nitrate chronic pain Pt has chronic r ight ankle pain. Pt failed NSAID Pt takes norco PRN for pain and doing ok Pt denies any worsening pain Physical Pt needs annual physical. Pt has chronic right ankle pain. Pt has history of right ankle fracture in the past Pt has arthritis. Pt takes norco PRN for pain. Pt denies any worsening pain Pt failed NSAID Pt also has chronic anxiety and insomnia Pt takes xanax at bedtime and doing ok. Pt also has CAD s/p stent. Pt takes coreg, lipitor, lisinopril, plavix. Pt denies any chest pain Pt sees cardiology. Pt also has low thyroid. Pt takes synthroid. Pt denies any other complaints Cervantes Pt has Cervantes. Pt takes omeprzole Pt denies any GERD or abd pain. Pt needs EGD next year insomnia1 pt has insomnia and anxiety Pt takes xanax qhs PRN Pt denies any depression or any suicidal thought chronic pain1 pt has chronic r ight ankle and foot pain. Pt denies any wrosening pain Pt takes norco RPN for pain and doing ok CAD Pt has CAD with stent. Pt takes lisinopril, lipitor, coreg and doing ok. Pt denies any chest pain. Pt sees cardiology. chronic pain1 Pt has chronic r ight lower extremity pain due to history of fracture. insomnia1 Pt has chronic i nsomnia and anxiety. Pt denies any depressin or any suicidal thought. P takes xanax PRN and doing ok CAD Pt has CAD with stent. pt takes plavix, ASA, coreg, lipitor. His lipid profile is good. Pt denies any chest pain. Pt had benign stress test recently thyroid1 Pt has low thryo id Pt takes synthroid. TSH ok hep C Pt had hep C but he underwent treatment back in 2002 and he is clear now. Pt denies any IV drug use. He denies any abd pain chronic pain1 Pt has chornic r ight ankle pain. Pt takes norco for pain PRN and doign ok. Pt denes any worsenign pain anxiety1 Pt has anxiety a nd insomnia. Pt atkes xanax PRn qhs and doing ok. Pt denies any depression or any suicidal thought. chronic pain Pt has chronic r ight ankle pain Pt takes norco PRN for pain Pt failed NSAID Pt denies any worsening pain insomnia1 Pt has insomnia. Pt takes xanax PRN qhs. Pt denies any depression or any suicidal thought Pt denies any crying spells hep C Pt told me he disla d hep C but was successfully treated. No abd pain HLP Pt has CAD and H LP Pt is on lipitor. Pt denies any myalgia emphysema1 Pt has mild COPD . Pt denies any SOB. Pt has mild COPD on the chest CT. Pt does not have any lung nodule chronic pain Pt has chronic r ight ankle pain. Pt deneis any worsening pain. Pt denies any swelling insomnia1 Pt has chronic a nxiety and insomnia Pt takes xanax qhs PRN and doing ok. Pt denies any depression or any suicidal thought CAD1 Pt has CAD. Pt j ust seen cardiology and he had a fingure stick cholesterol test and he is on coreg, lisinopirl and lipitor. Pt denies any chest pain chronic pain1 Pt has chronic r ight ankle pain. Pt denies any worsening pain. Pt denies any swelling insomnia1 Pt has insomnia Pt takes xanax qhs PRN and doing ok. Pt denies any depression or any suicidal thought CAD Pt has CAD with stent. Pt takes lipitor, coreg and lisinopril Pt sees cardiology. Pt denies any chest pain tobacco1 Pt has 40 pack y ear tobacco. Pt tried to schedule for CT of chest but [facility] will not do it. Pt denies any SOB chronic pain Pt has chronic r ight ankle pain Pt has history of fracture. pt denies any worsening pain insomnia1 Pt has chornic i nsomnia and anxiety .Pt takes xanax qhs PRN and doing ok Pt denies any depression or any suicidal thought tobacco1 Pt smoked since 6 years old and he has more than 40 pack year tobacco. Pt denies any chest pain or SOB Pt mainly smokes cigar now chronic pain1 Pt has chornic r ight ankle pain. Pt takes norco for pain PRN. Pt denies any worsening pain anxiety1 Pt has chronic i nsomnia and anxiety. Pt takes xanax PRN and doing ok Pt denies any suicidal or homicidal thought ED pt has ED. Pt disla s good libido. pt denies any testicular pain or nodule GERD1 Pt has cervantes e sophagus. Pt is on omepraozle. Pt just seen GI and was told continue omeprazole and next EGD 2017. Pt denies any GERD chronic pain Pt has chronic r ight ankle pain. Pt has histroy of fracture right ankle area. Pt takes norco for pain. Pt doing ok Pt denies any worsening pain anxiety1 Pt has chronic a nxiety. Pt denies any depresion or any suicidal thought Pt denies any cyring spells chronic pain Pt has chronic r ight ankle and foot pain. Pt denies any worsening pain. Pt takes norco for pain. Pt unable to tolerate nsAID anxiety1 Pt has chronic a nxiety. Pt denies any depression ro any suicidal thought. Pt takes xnaax PRN and doing ok hypothyroidism Pt has chronic h ypothyroidism. Pt takes synthroid. Pt needs refill HTN Pt has CAD and H TN. Pt takesl isinorpil and coreg. Pt has appointment with cardilogy nxt week for stress test. Pt denies any chest pain chronic pain1 Pt has chronic r ight ankle pain. Pt has history of right ankle fx. Pt takes norco for pain Pt denies any worsening pain anxiety1 Pt has chronic a nxiety. Pt denies any depression or any suicidal thought. Pt takes xanax PRN. Pt denies any cyring spells GERD1 Pt has Cervantes e sophagus. Pt is taking omeprazole. Pt denies any abd pain or GERD HTN Pt takes lisinor pil and coreg and his BP is high today Pt denies any chest pain or headache chronic pain Pt has chronic r ight ankle pain. Pt takes norco PRN for pain Pt failed NSAID Pt doing ok anxiety1 Pt has chronic a nxiety and insomina Pt takes xanax qhs PRN. Pt denies any depression or any suicidal thought HLP Pt takes lipitor . Pt denies any myalgia. Pt is on low fat and low carb diet chronic pain Pt has chronic r ight ankle pain and aniety Pt takes norco and xanax. Pt doing ok. Pt denies any worsening pain. Pt denies any suicidal or homicdial thought Pt denies any depression hypothyroidism Pt has hypothyro idism. Pt takes synthroid. Pt denies any chest pain or fatigue CAD Pt has CAD with stent. Pt sees cardiology. Pt takes coreg, plavix, lisinopril and he sees cardiology. Pt denies any chest pain. chronic pain Pt has chronic r ight ankle pain. Pt denies any worsening pain. Pt denies any excessive swelling insomnia1 Pt has chronic i nsomnia and anxiety. Pt takes xanax qhs PRN. Pt denies any suicidal or homicidal thought. Pt denies any crying spells ED1 PT has ED Pt wan ts to try medication for ED. Pt has CAD with stent and he is on coreg, lisinopril and plavix. Pt denies any chset pain with sex. Pt denies any issue with cialis in the past. chronic pain Pt has chronic r ight ankle pain. Pt takes norco for pain PRN. Pt denies any worsening pain anxiety1 Pt has chronic a nxiety. pt denies any depression or any suicidal thought. Pt atkes xanax PRN and doing ok. chronic pain Pt has chronic r ight ankle pain. Pt takes norco for pain. Pt failed NSAID Pt denies any worsening pain anxiety1 Pt has chronic a nxiety and insomnia. Pt takes xana PRN and doing ok. Pt denies any depression or any suicdial thought. cervantes Pt does have bar ret. Pt is on omeprazole. Pt doing ok PT denies any GI complaints. CAD Pt has CAD. Pt t akes coreg, lisinopril ASA and plavix. Pt denies any chest pain. PT denies any SOB chronic pain Pt c/o chronic r ight ankle pain. pt denies any worsening pain. Pt denies any swelling anxiety1 Pt has anxiety a nd insomnia Pt takes xanax and doing ok. Pt deneisa ny depression or any suicidal thought dizziness Pertinent negati ves include chest pain, ear drainage, fever, headache, hearing loss, palpitations, vision loss and vomiting. Additional information: Pt recvently admited to hospital for nonspecific dizziness. No chest pain. Ptwas rule out. Pt saw neurology. Pt had benign chest CT and carotid doppler. No CVA Pt states that he got a panic attacks trying to repair his car. Pt is fine now. No chest pain or dizziness. anemia1 Pt has mild anem ia on recent lab form ER. Pt denies any blood loss. chronic pain Pt has chronic r ight ankle pain Pt states that his pain has been worse.. Pt has hsitory of right ankle fx. Pt has arthritis. Pt take norco for pain. Pt has intermittent right ankle swelling anxiety1 Pt has chronic a nxiety and insomnia. Pt denies any depression or any suicidal thought GERD1 Pt has mild gatr itis and hemorrhoid per GI per patient on recent EGD and colonscopy. Pt is on omeprzole now. Pt denies anysymptoms HLP1 Pt has HLP. Pt t akes lipitor. Pt denies any myalgia. Pt has CAd. Pt atkes plavix, coreg, lisinopril and ASA. Pt denies any chest pain. Pt is seeing cardiology chronic pain Pt has chronic r ight ankle pain. Pt denies any worsenig pain. Pt unable to tolerate NSAID insomnia1 Pt has chronic i nsomnia and anxiety. Pt atkes xanax PRN qhs and doing ok. Pt denies any suicidal or homicdial thought. Pt denies any crying spells chronic pain Pt has chronic r ight ankle pain Pt denies any worsening pain. pt denies any swelling anxiety1 Pt has chronic a nxiety and insomnia. Pt atkes xanax PRN and working ok. Pt denies any depression or any suicidal thought GERD1 Pt doing ok with omerpzole. Pt will have EGD and colonoscopy done next month by DR. Ross. Pt denies any abd pain CAD Pt has history o f CAD with stent. Pt takes lipitor lisinopirl. coreg, ASA and plavix. Pt denie sany chset pain pain Pt sees cardiology right ankle pain Location: right ankle. Additional information: Pt has chronic right ankle pain due to history of injury and arthritis. Pt takes norco for pain. Pt denies any swelling or worsening symptoms. anxiety1 Pt has chronic a nxiety. Pt takes xanax qhs for insomnia. Pt denies any depression or any suicidal thought ankle pain1 Pt has chronic r ight ankle pain due to arthritis. Pt enmanuel any worseningpain .Pt takes norco for pain. Pt unable to tolerate NSAID insomnia1 PT has chronic i nsomnia and anxiety. Pt takes xanax qhs PRN and doing ok. Pt denies any sucidal thought Pt denies any crying spells Pt denie any feeling of hopelessness ankle pain Location: ankle. Additional information: Pt has chronic right ankle pain. Pt has history of fracture without surgery Pt denies any worsening pain, Pt has intermittent ankle swelling. Pt takes norco for pain which works ok. insomnia The patient pres ents for insomnia. Relevant history: a BMI of 22.81. Additional information: Pt has chronic insomnia and anxiety. Pt takes xanax qhs PRN which works well. CAD Pt has history o f CAD with stent. No CHF. Pt takes coreg, lisinopril. ASA and plavix. Pt denies any chest pain gastric ulcer Pt has history o f gastric ulcer. Pt denies any abd pain Pt takes omerpzole. Pt denies any GERD HTN Pt takes lisinop ril 10 mg daily and also coreg 1/2 of 3.125 mg BID and his BP is stable. He has CAD with stent and he is on ASA and plavix. Pt is off statin per cardiology. Pt has been eating fiber and healthy per himself. Pt denies any chest pain gastric ulcer Pt atkes omepraz ole. Pt denies any abd pain or GERD symptoms. insomnia The patient pres ents for insomnia. Relevant history: a BMI of 22.35. The patient denies depression, weight gain or wheezing. Additional information: Pt has chronic insomnia and anxiety. Pt takes xanax qhs PRN and doing ok. Pt denies any depression or any suicidal thought. hypothyroidism Pt takes synthro id. Pt denies any fatigue or chest pain or headache or palpitation pain Pt has chronic r ight ankle pain. Pt denies any worsening pain anxiety Additional infor mation: Pt has chornic anixety. Pt denies any depression or any suicidal thought. Pt takes xanax qhs. hypothyroidism Pt takes synthro id. Pt denies any chest pain or any palpitation gERD Additional infor mation:Pt takes omeprazole. Pt has history of gastriculcer Pt denies any pain. chronic apin Pt has chronic r ight ankle pain. Pt denies any worsening pain anxiety Additional infor mation: Pt has chronic anxiety and insomnia. Pt takes xanax qhs PRN. Pt denies any depression or any suicidalk thought. chronic pain Pt has chronic r ight ankle pain. Pt denies any worsenign pain. Pt denies any change in quality of pain anxiety Additional infor mation: Pt has chronic insomnia and aniety. Pt takes xnax PRN. Pt denies any depression or any suicidal thought. Instructions Date Instruction Additional Infor mation Quit smoking Related to Insom alverto Special diet education Related t o Body mass index (BMI) 27.0-27.9, adult Quit smoking Related to [place] neoplasm of bladder, unspecified Special diet education Related t o Body mass index (BMI) 27.0-27.9, adult Quit smoking Related to Chron ic pain syndrome Special diet education Related t o Body mass index (BMI) 27.0-27.9, adult Quit smoking Related to Encou nter for general adult medical exam w abnormal findings Quit smoking Related to Emphy sema Special diet education Related t o Body mass index (BMI) 27.0-27.9, adult Quit smoking Related to Emphy sema Quit smoking Related to Chron ic pain syndrome Special diet education Related t o Body mass index (BMI) 26.0-26.9, adult Quit smoking Related to Insom alverto Quit smoking Related to Chron ic pain syndrome Quit smoking Related to Hypot hyroidism Quit smoking Related to Chron ic pain syndrome Special diet education Related t o Body mass index (BMI) 26.0-26.9, adult Quit smoking Related to Chron ic pain syndrome Quit smoking Related to Chron ic pain syndrome Quit smoking Related to [place] neoplasm of bladder, unspecified Special diet education Related t o Body mass index (BMI) 27.0-27.9, adult Quit smoking Related to Chron ic pain syndrome Quit smoking Related to Insom alverto Quit smoking Related to Emphy sema Quit smoking Related to Encou nter for general adult medical exam w abnormal findings Special diet education Related t o Body mass index (BMI) 26.0-26.9, adult Quit smoking Related to Malig nant neoplasm of bladder, unspecified Quit smoking Related to Emphy sema Quit smoking Related to Hypot hyroidism Special diet education Related t o Body mass index (BMI) 26.0-26.9, adult Quit smoking Related to Chron ic pain syndrome Special diet education Related t o Body mass index (BMI) 26.0-26.9, adult Quit smoking Related to Chron ic pain syndrome Prescribed Activity and Exercise Education Related to Dietary Surveillance and Counseling Prescribed Diet Educ ation/Lifestyle Education Regarding Diet Related to Dietary Surveillance and Counseling Quit smoking Related to [place] tt's esophagus without dysplasia Prescribed Activity and Exercise Education Related to Dietary Surveillance and Counseling Prescribed Diet Educ ation/Lifestyle Education Regarding Diet Related to Dietary Surveillance and Counseling Quit smoking Related to Insom alverto Prescribed Activity and Exercise Education Related to Dietary Surveillance and Counseling Prescribed Diet Educ ation/Lifestyle Education Regarding Diet Related to Dietary Surveillance and Counseling Quit smoking Related to [place] tt's esophagus without dysplasia Quit smoking Related to Insom alverto Quit smoking Related to Chron ic pain syndrome Quit smoking Related to Insom alverto Increase physical activity Relat ed to Insomnia Quit smoking Related to Chron ic pain syndrome Quit smoking Related to Encou nter for general adult medical exam w abnormal findings Prescribed Activity and Exercise Education Related to Dietary Surveillance and Counseling Prescribed Diet Educ ation/Lifestyle Education Regarding Diet Related to Dietary Surveillance and Counseling exercise Related to CAD, [place] Vessel Assessments Type Assessment Date assessment Centrilobular emphysema 025 assessment Chronic pain syndrome assessment Malignant neoplasm of bladder, u nspecified assessment Hypothyroidism assessment Mixed hyperlipidemia assessment Encounter for general adult medi ezio exam w abnormal findings assessment Coronary artery dise ase of [place] coronary artery w/o angina pectoris assessment GERD without esophagitis 2024 Mental Status Date Cognitive Assessment Orientation - [place] ed to time, place, person, situation.
--- OUTSIDE RECORDS SUMMARY | 2024-08-25 08:44 | XMS_ITS | Encounter Summary ---
Author Organization [facility] Address [address] [place] [address] Phone Care Team Providers Care Electric Motor Analyst Name Role Phone Iker Feldman Primary Care Provider [phone] Juan Gresham MD Unavailable Hemant Delgado MD Unavailable Encounter Details Date Type Department Care Team (Late st Contact Info) Description 05/16/2021 [facility] 1 [place] [address] Hemant Delgado MD #[address] [address] Pre-op testing (Primary Dx) Social History Tobacco [...] COVID-19? No / Unsure 05/17/2021 11:10 AM TICKET SCHEDULER documented as of this encounter Plan of Treatment Not on file documented as of this encounter Results * SARS-COV-2 BY MOLECULAR (05/17/2021 11:13 AM TICKET SCHEDULER) SARSCOV2 NOT DETECTED (Referen ce Range for this test is Not Detected ) [facility] THERMOFISHER FAST DX 05/18/2021 11:52 AM TICKET SCHEDULER [facility] Comment:This test was perfor med by a RT-PCR method. Other NASOPHARYNGEAL STRUCTURE / Unknown Non-Phlebotomy Collection / Unknown 05/17/2021 11:13 AM TICKET SCHEDULER 05/17/2021 11:57 AM TICKET SCHEDULER Narrative [facility] - 05/18/2021 11:52 AM TICKET SCHEDULER Authorized Fact Sheets about this test for providers and patients are available at: https://www.fda.gov/medical-devices/yjgwukokt-qpiwbbljgj-dyqlavi-devices/emergen cy-us e-authorizations us Hemant Delgado MD MICROBIOLOGY - GENERAL ORDERABLE S Final Result [facility] [address] [place] [address], documented in this encounter Visit Diagnoses Diagnosis Pre-op testing- Primary Preoperative examination, unspecified documented in this encounter Care Teams Electric Motor Analyst Relationship Specialty Start Date End Date Iker Feldman [address] [place] [address] PCP - General Family Medicine 12/05/17 Juan Gresham MD [address] [facility] [place] [address] [place] [address] Cardiovascular Disease - Cardiology 12/05/17 Hemant Delgado MD #2 [facility], [address] [address] Consulting Physician Urology 01/19/22 documented as of this encounter
--- OUTSIDE RECORDS SUMMARY | 2024-08-25 08:44 | XMS_ITS | Encounter Summary ---
Author Organization [facility] Address [address] [place] [address] Phone Care Team Providers Care Beater Lead Name Role Phone Iker Feldman Primary Care Provider [phone] Juan Gresham MD Unavailable Hemant Delgado MD Unavailable Encounter Details Date Type Department Care Team (Late st Contact Info) Description 03/29/2021 [facility] 1 [place] [id number] Hemant Delgado MD #[address] [address] Social History Tobacco Use Types Packs/Day Years [...] COVID-19? No / Unsure 03/29/2021 2:12 PM PREPARATION SUPERVISOR CANNING documented as of this encounter Plan of Treatment Not on file documented as of this encounter Visit Diagnoses Not on filedocumented in this encounter Care Teams Beater Lead Relationship Specialty Start Date End Date Iker Feldman [address] [facility] [address] PCP - General Family Medicine 12/05/17 Juan Gresham MD [address] [facility] [address] [place] [address] Cardiovascular Disease - Cardiology 12/05/17 Hemant Delgado MD #2 [facility] [address] [place] [address] Consulting Physician Urology 01/19/22 documented as of this encounter
--- OUTSIDE RECORDS SUMMARY | 2024-08-25 08:44 | XMS_ITS | Encounter Summary ---
Author Organization [facility] Address [address] [place] [address] Phone Care Team Providers Care Cutter Aluminum Sheet Name Role Phone Iker Feldman Primary Care Provider [phone] Juan Gresham MD Unavailable Hemant Delgado MD Unavailable Encounter Details Date Type Department Care Team (Late st Contact Info) Description 03/29/2021 Transcribe Orders [facility] Preop/Pacu II 1 [place] [address] Hemant Delgado MD #[address] [address] Pre-op testing (Primary Dx) Social History Tobacco [...] COVID-19? No / Unsure 03/29/2021 2:12 PM SKOOG OPERATOR documented as of this encounter Plan of Treatment Not on file documented as of this encounter Results * SARS-COV-2 BY MOLECULAR (04/25/2021 7:54 AM SKOOG OPERATOR) SARSCOV2 NOT DETECTED (Referen ce Range for this test is Not Detected ) [facility] THERMOFISHER FAST DX 04/25/2021 6:50 PM SKOOG OPERATOR [facility] Comment:This test was perfor med by a RT-PCR method. Other NASOPHARYNGEAL STRUCTURE / Unknown Non-Phlebotomy Collection / Unknown 04/25/2021 7:54 AM SKOOG OPERATOR 04/25/2021 8:44 AM SKOOG OPERATOR Narrative [facility] - 04/25/2021 6:50 PM SKOOG OPERATOR Authorized Fact Sheets about this test for providers and patients are available at: https://www.fda.gov/medical-devices/sjwlzdkvp-itdjlharvy-rapdoem-devices/emergen cy-us e-authorizations us Hemant Delgado MD MICROBIOLOGY - GENERAL ORDERABLE S Final Result [facility] [address] [place] [address], documented in this encounter Visit Diagnoses Diagnosis Pre-op testing- Primary Preoperative examination, unspecified documented in this encounter Care Teams Cutter Aluminum Sheet Relationship Specialty Start Date End Date Iker Feldman [address] [place] [address] PCP - General Family Medicine 12/05/17 Juan Gresham MD [address] [facility] [place] [address] [place] [address] Cardiovascular Disease - Cardiology 12/05/17 Hemant Deglado MD #2 [facility], [address] [address] Consulting Physician Urology 01/19/22 documented as of this encounter
--- OUTSIDE RECORDS SUMMARY | 2024-08-25 08:44 | XMS_ITS | Clinical Summary ---
Author Organization [facility] Address [address] [place] [address] Phone Care Team Providers Care Client Development Consultant Name Role Phone Iker Feldman Primary Care Provider [phone] Juan Gresham MD Unavailable Hemant Delgado MD [...] minutes as needed. Active ergocalciferol (VITAMIN D) 44523 UNIT Capsule Take 1 Capsule by mouth. [...] Comments Blood Pressure 138/74 01/19/2022 8:[address] Pulse 54 01/19/2022 8:[address] Temperature 36.4 C (97.6 F) 01/19/2022 8:[address] Respiratory Rate 18 01/19/2022 8:[address] Oxygen Saturation 98% 01/19/2022 8:[address] Inhaled Oxygen Concentration - - Weight 72.2 kg (159 lb 3.2 oz) 01/19/2022 8:53 A M [address] Height 174 cm (5' 8.5) 09/16/2021 11:49 AM CDT Body Mass Index 23.85 09/16/2021 11:49 AM CDT Plan of Treatment Health Maintenance Due Date Last Done Comments Hepatitis C Virus (HCV) Screening 1955 TdaP Immunization 1955 Cologuard 1998 Colonoscopy 1998 Colorectal Cancer Screening 1998 Immunochemical Fecal Occult Blood 1998 Pneumococcal Immunization (50+ years) (2 of 2 - PCV) 03/09/2015 03/09/2014 SARS-COV-2 Immunization ( season) 2023 12/30/2021, 05/09/2021, 12/10/2020, Additional history exists Influenza Immunization (Season Ended) 2024 11/25/2021, 11/17/2020, 11/25/2019, Additional history exists Respiratory Syncytial Virus (RSV) Immunization (Adult) (1 - 1-dose 75+ series) 2028 Pneumococcal Immunization Combined Discontinued 03/09/2014 PSA Discussion Discontinued 09/18/2017, 03/12/2000 Zoster Immunization Completed 04/06/2019, 9 Hepatitis B Immunization Aged Out No longer eligible based on patient's age to complete this topic Human Papillomavirus (HPV) Immunization Aged Out No longer eligible based on patient's age to complete this topic Meningococcal Immunization (ACWY) Aged Out No longer eligible based on patient's age to complete this topic Rotavirus Immunization Aged Out No lo nger eligible based on patient's age to complete this topic Medical Devices Implanted Type Area Improvement Intern Device Identifier Shelf Expiration Date Model / Serial / Lot Stent Ureteral 6fr 2.1fr 26cm 2 Pigtail Curve 2 Durometer Taper Tip Loprfl Graduated Polaris Ultra - [id number] Implanted:Qty : 1 on 03/19/2018 by Viviana Junior MD at [facility] IMPLANT Right: Ureter [employer] 10/03/2020 [id number] 0 / [id number] 0 / [id number] Stent Ureteral 6fr 2.1fr 24cm 2 Pigtail Curve 2 Durometer Taper Tip Loprfl Graduated Polaris Ultra - [id number] Implanted:Qty : 1 on 04/29/2021 by Hemant Delgado MD at [facility] IMPLANT Left: Ureter [employer] 01/12/2024 [id number] 0 / [id number] 0 / [id number] Stent Ureteral 6fr 2.1fr 24cm 2 Pigtail Curve 2 Durometer Taper Tip Loprfl Graduated Polaris Ultra - [id number] Implanted:Qty : 1 on 05/20/2021 by Hemant Delgado MD at [facility] IMPLANT Left: Ureter [employer] 02/04/2024 [id number] 0 / [id number] 0 / [id number] Stent Ureteral 6fr 2.1fr 24cm 2 Pigtail Curve 2 Durometer Taper Tip Loprfl Graduated Polaris Ultra - [id number] Implanted:Qty : 1 on 05/20/2021 by Hemant Delgado MD at [facility] IMPLANT Right: Ureter [employer] 02/04/2024 [id number] 0 / [id number] 0 / [id number] Stent Ureteral 6fr 2.1fr 28cm 2 Pigtail Curve 2 Durometer Taper Tip Loprfl Graduated Polaris Ultra - [id number] Implanted:Qty : 1 on 09/09/2021 by Hemant Delgado MD at [facility] IMPLANT Right: Ureter [employer] 02/08/2024 [id number] 0 / [id number] 0 / [id number] Explanted Type Area Improvement Intern Device Identifier Shelf Expiration Date Model / Serial / Lot Stent Ureteral 6fr 2.1fr 24cm 2 Pigtail Curve 2 Durometer Taper Tip Loprfl Graduated [employer] Ultra - [id number] Implanted:Qty : 1 on 04/29/2021 by Hemant Delgado MD at [facility] Explanted:Qty : 1 on 05/20/2021 by Hemant Delgado MD at [facility] IMPLANT Right: Ureter [employer] 01/12/2024 [id number] 0 / [id number] 0 / [id number] Procedures Procedure Name Priority Date/Time Associated Diagnosis [...] Documents on File Type Date Recorded Patient Lifeline Representatives Expl anation Other Advance Directive 09/21/2021 3:35 [...] Medical Clearance fo r surgery Care Teams Client Development Consultant Relationship Specialty Start Date End Date Feldman Iker [address] [place] [address] PCP - General Family Medicine 12/05/17 Juan Gresham MD [address] [facility] [address] [place] [address] Cardiovascular Disease - Cardiology 12/05/17 Hemant Delgado MD #2 [facility] [address] [place] [address] Consulting Physician Urology 01/19/22
--- OUTSIDE RECORDS SUMMARY | 2024-08-25 08:44 | XMS_ITS | Encounter Summary ---
Author Organization [facility] Address [address] [place] [address] Phone Care Team Providers Care Naphthol Soaping Machine Operator Name Role Phone Iker Feldman Primary Care Provider [phone] Juan Gresham MD Unavailable Hemant Delgado MD Unavailable Encounter Details Date Type Department Care Team (Late st Contact Info) Description 04/26/2021 Transcribe Orders [facility] Preop/Pacu II 1 [place] [address] Hemant Delgado MD #[address] [address] Pre-op testing (Primary Dx) Social History Tobacco [...] COVID-19? 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 BROTH SETTER documented as of this encounter Plan of Treatment Not on file documented as of this encounter Visit Diagnoses Diagnosis Pre-op testing- Primary Preoperative examination, unspecified documented in this encounter Care Teams [place]hthol Soaping Machine Operator Relationship Specialty Start Date End Date Iker Feldman [address] [place] [address] PCP - General Family Medicine 12/05/17 Juan Gresham MD [address] [facility] [address] [place] [address] Cardiovascular Disease - Cardiology 12/05/17 Hemant Delgado MD #2 [facility] [address] [place] [address] Consulting Physician Urology 01/19/22 documented as of this encounter
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
--- NOTE | 2024-08-25 10:30 | ECG_ITS ---
Test Date: 2024-08-25 08:59:16 Measurements Intervals [place] Rate: 52 P: 56 MN: 201 QRS: -12 QRSD: 118 T: 18 QT: 454 QTc: 425 Interpretive Statements SINUS BRADYCARDIA BORDERLINE AV CONDUCTION DELAY CANNOT R/O SEPTAL INFARCT, AGE INDETERMINATE BASELINE ARTIFACT- I, II, III, AVR, AVL, AVF, V1-V6 ABNORMAL ECG No previous ECG available for comparison Electronically Signed On 08-25-2024 09:01:53 CDT by Shar Mendoza D.O.
== END 2024-08-25 08:32 | disposition home or self-care (01) ==
PROVIDERS: PCP Emergency Medicine; Visit Provider Urology
DX: Z01.810 Encounter for preprocedural cardiovascular examination (principal); R94.31 Abnormal electrocardiogram [ECG] [EKG]; I10 Essential (primary) hypertension
CPT/HCPCS: 93005

== ENCOUNTER 2024-08-25 09:25 | Outpatient (CLI) | payer MEDICARE, MEDICAID, SELFPAY ==
--- OUTSIDE RECORDS SUMMARY | 2024-08-25 10:02 | XMS_ITS | Encounter Summary ---
Author Organization [facility] Address [address] [place] [address] Phone Care Team Providers Care Vending Attendant Name Role Phone Iker Feldman Primary Care Provider [phone] Juan Gresham MD Unavailable Hemant Delgado MD Unavailable Reason for Referral * Radiology Services (Routine) - Closed Specialty Diagnoses / Procedures Referred By Contac t Referred To Contact Radiology Diagnoses Pre-op testing Procedures EKG 12 LEAD Laurent Abebe APRN, CRNA Referral ID Status Reason Start Date Expiration Date Visits Re quested Visits Authorized [id number] Closed 03/29/2021 1 1 [employer] REMOVAL Encounter Details Date Type Department Care Team (Latest Contact Info) Description 03/29/2021 Transcribe Orders [facility] Preop/Pacu II 1 [place] [id number] Laurent Abebe APRN, CRNA Pre-op testing (Primary [...] COVID-19? No / Unsure 03/29/2021 2:12 PM SUPERVISOR ASBESTOS REMOVAL documented as of this encounter Plan of Treatment Not on file documented as of this encounter Results * HEMOGLOBIN & HEMATOCRIT (H&H) (04/25/2021 7:56 AM SUPERVISOR [employer]BEST[employer] REMOVAL) HEMOGLOBIN (HGB) 14.7 13.0 - 16.5 g/dL 04/25/2021 8:12 AM SUPERVISOR ASBESTOS REMOVAL [facility] HEMATOCRIT (HCT) 44.9 38.0 - 50.0 % 04/25/2021 8:12 AM SUPERVISOR [employer]BEST[employer] REMOVAL [facility] Blood Venipuncture / Unknown 04/25/2021 7:56 AM SUPERVISOR [employer] REMOVAL 04/25/2021 8:07 AM SUPER[employer] REMOVAL us Laurent Abebe APRN, CRNA HEMATOLOGY ORDERAB LES Final Result [facility] [address] [place] [address] * (ABNORMAL) BASIC METABOLIC PANEL W/ CALCIUM TOTAL (04/25/2021 7:56 AM SUPERVISOR [employer]BE[employer] REMOVAL) SODIUM 133(L) 136 - 144 mmol/L 04/25/2021 8:32 AM SUPERVISOR [employer]BE[employer] REMOVAL [facility] POTASSIUM 4.6 3.5 - 5.1 mmol/L 04/25/2021 8:32 AM SUPERVISOR [employer]BESTOS REMOVAL [facility] CHLORIDE 99(L) 100 - 110 mmol/L 04/25/2021 8:32 AM SUPERVISOR [employer]BESTOS REMOVAL [facility] CO2, VENOUS 27 22 - 32 mmol/L 04/25/2021 8:32 AM SUPERVISOR [employer]BESTOS REMOVAL [facility] ANION GAP 11.6 8.0 - 20.0 mmol/L 04/25/2021 8:32 AM [facility] GLUCOSE 111(H) 70 - 99 mg/dL 04/25/2021 8:32 AM [facility] BUN 11 8 - 23 mg/dL 04/25/2021 8:32 AM [facility] CREATININE, BLOOD 0.90 0.80 - 1.30 mg/dL 04/25/2021 8:32 AM [facility] BUN/CREATININE RATIO 12 12 - 20 ratio 04/25/2021 8:32 AM [facility] CALCIUM 9.4 8.9 - 10.3 mg/dL 04/25/2021 8:32 AM [facility] GFR, EST. NONAFRICAN >60 >=60 04/25/2021 8:32 AM [facility] GFR, EST. >60 >=60 04/25/2021 8:32 AM [facility] Comment: Creatinine Clearance is the preferred criteria for selecting drug dose adjustments in renally impaired patients. The GFR is provided as additional pertinent clinical information. GFR is reported in mL/min/1.73 sq m. IS THE PATIENT REQUIRED TO BE FASTING? No 04/25/2021 8:32 AM [facility] Blood Venipuncture / Unknown 04/25/2021 7:56 AM SUPERVISOR [employer]BE[employer] REMOVAL 04/25/2021 8:[address] [facility] us Laurent Abebe MACHINE ETCHER, NURSE LICENSED PRACTICAL CHEMISTRY ORDERABL ES Final Result [facility] [address] [place] [address] * EKG 12 LEAD (04/25/2021 7:[address] [facility]) Ventricular Rate BPM EXTERNAL EKG Atrial Rate BPM EXTERNAL EKG P-R Interval 194 ms EXTERNAL EKG QRS Duration 100 ms EXTERNAL EKG Q-T Duration 472 ms EXTERNAL EKG QTC CALCULATION 427 ms EXTERNAL EKG P [place] 79 degrees EXTERNAL EKG R [place] 49 degrees EXTERNAL EKG T [place] 67 degrees EXTERNAL EKG 04/25/2021 7:43 AM SUPERVIS[employer] REMOVAL Impressions EXTERNAL EKG - 04/25/2021 9:08 AM SUPERVISOR [employer]BE[employer] REMOVAL Sinus bradycardia Abnormal R wave progression (?ASMI or lead location) Comparison Summary: Significant changes Summary: Abnormal ECG Compared with:03/27/2020 9:11 AM; 03/17/2019 9:55 AM No significant changes noted Confirmed by Lauren Mahmood [id number] on 04/25/2021 9:08:06 AM Narrative Procedure Note Sofia Aguilar MD - 04/25/2021 IMPRESSION: Sinus bradycardia Abnormal R wave progression (?ASMI or lead location) Comparison Summary: Significant changes Summary: Abnormal ECG Compared with:03/27/2020 9:11 AM; 03/17/2019 9:55 AM No significant changes noted Confirmed by Lauren Mahmood [id number] on 04/25/2021 9:08:06 AM us Laurent Nathanatzke MACHINE ETCHER, NURSE LICENSED PRACTICAL IMG ECG ORDERABLES Final Result Performing Organization Address City/State/[facility] Co de Phone Number EXTERNAL EKG documented in this encounter Visit Diagnoses Diagnosis Pre-op testing- Primary Preoperative examination, unspecified Pre-op testing Preoperative examination, unspecified documented in this encounter Care Teams Vending Attendant Relationship Specialty Start Date End Date Iker Feldman [address] [place] [address] PCP - General Family Medicine 12/05/17 Juan Gresham MD [address] [facility] [address] [place] [address] Cardiovascular Disease - Cardiology 12/05/17 Hemant Delgado MD #2 [facility] [address] [place] [address] Consulting Physician Urology 01/19/22 documented as of this encounter
--- OUTSIDE RECORDS SUMMARY | 2024-08-25 10:02 | XMS_ITS | Encounter Summary ---
Author Organization [facility] Address [address] [place] [address] [place] [address] Phone Care Team Providers Care Black Powder Glazing Operator Name Role Phone Iker Feldman Primary Care Provider [phone] Juan Gresham MD Unavailable Hemant Delgado MD Unavailable Encounter Details Date Type Department Care Team (Late st Contact Info) Description 03/29/2021 Transcribe Orders [facility] Preop/Pacu II 1 [place] [address] Hemant Delgado MD [address] [address] Pre-op testing (Primary Dx) Social History Tobacco [...] COVID-19? No / Unsure 03/29/2021 2:12 PM CHILD DEVELOPMENT TEACHER documented as of this encounter Plan of Treatment Not on file documented as of this encounter Results * SARS-COV-2 BY MOLECULAR (04/25/2021 7:54 AM CHILD DEVELOPMENT TEACHER) SARSCOV2 NOT DETECTED (Referen ce Range for this test is Not Detected ) [facility] THERMOFISHER FAST DX 04/25/2021 6:50 PM CHILD DEVELOPMENT TEACHER [facility] Comment:This test was perfor med by a RT-PCR method. Other NASOPHARYNGEAL STRUCTURE / Unknown Non-Phlebotomy Collection / Unknown 04/25/2021 7:54 AM CHILD DEVELOPMENT TEACHER 04/25/2021 8:44 AM CHILD DEVELOPMENT TEACHER Narrative [facility] - 04/25/2021 6:50 PM CHILD DEVELOPMENT TEACHER Authorized Fact Sheets about this test for providers and patients are available at: https://www.fda.gov/medical-devices/tagghtrkn-rohqpxkrlr-teptyqv-devices/emergen cy-us e-authorizations us Hemant Delgado MD MICROBIOLOGY - GENERAL ORDERABLE S Final Result [facility] [address] [place] [address], documented in this encounter Visit Diagnoses Diagnosis Pre-op testing- Primary Preoperative examination, unspecified documented in this encounter Care Teams Black Powder Glazing Operator Relationship Specialty Start Date End Date Iker Feldman [address] [place] [address] PCP - General Family Medicine 12/05/17 Juan Gresham MD [address] [facility] [place] [address] [place] [address] Cardiovascular Disease - Cardiology 12/05/17 Hemant Delgado MD #2 [facility], [address] [address] Consulting Physician Urology 01/19/22 documented as of this encounter
--- OUTSIDE RECORDS SUMMARY | 2024-08-25 10:02 | XMS_ITS | Encounter Summary ---
Author Organization [facility] Address [address] [place] [address] Phone Care Team Providers Care Safety And Occupational Health Manager Name Role Phone Iker Feldman Primary Care Provider [phone] Juan Gresham MD Unavailable Hemant Delgado MD Unavailable Encounter Details Date Type Department Care Team (Late st Contact Info) Description 04/26/[address] [facility] Preop/Pacu II 1 [place] [address] Hemant Delgado MD #[address] [address] Pre-op testing (Primary Dx) Social History Tobacco [...] COVID-19? 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 MOBILE HOME LABORER documented as of this encounter Plan of Treatment Not on file documented as of this encounter Visit Diagnoses Diagnosis Pre-op testing- Primary Preoperative examination, unspecified documented in this encounter Care Teams Safety And Occupational Health Manager Relationship Specialty Start Date End Date Iker Feldman [address] [place] [address] PCP - General Family Medicine 12/05/17 Juan Gresham MD [address] [facility] [address] [place] [address] Cardiovascular Disease - Cardiology 12/05/17 Hemant Delgado MD #2 [facility] [address] [place] [address] Consulting Physician Urology 01/19/22 documented as of this encounter
--- OUTSIDE RECORDS SUMMARY | 2024-08-25 10:02 | XMS_ITS | Encounter Summary ---
Author Organization [facility] Address [address] [place] [address] Phone Care Team Providers Care Distributor Operator Name Role Phone Iker Feldman Primary Care Provider [phone] Juan Gresham MD Unavailable Hemant Delgado MD Unavailable Encounter Details Date Type Department Care Team (Late st Contact Info) Description 05/16/2021 Transcribe Orders [facility]op[facility]Pacu [facility] 1 [place] [address] Hemant Delgado MD #[address] [address] Pre-op testing (Primary Dx) Social History Tobacco [...] COVID-19? No / Unsure 05/17/2021 11:10 AM PACKAGING MACHINE SUPPLIES DISTRIBUTOR documented as of this encounter Plan of Treatment Not on file documented as of this encounter Results * SARS-COV-2 BY MOLECULAR (05/17/2021 11:13 AM PACKAGING MACHINE SUPPLIES DISTRIBUTOR) SARSCOV2 NOT DETECTED (Referen ce Range for this test is Not Detected ) [facility] THERMOFISHER FAST DX 05/18/2021 11:52 AM PACKAGING MACHINE SUPPLIES DISTRIBUTOR [facility] Comment:This test was perfor med by a RT-PCR method. Other NASOPHARYNGEAL STRUCTURE / Unknown Non-Phlebotomy Collection / Unknown 05/17/2021 11:13 AM PACKAGING MACHINE SUPPLIES DISTRIBUTOR 05/17/2021 11:57 AM PACKAGING MACHINE SUPPLIES DISTRIBUTOR Narrative [facility] - 05/18/2021 11:52 AM PACKAGING MACHINE SUPPLIES DISTRIBUTOR Authorized Fact Sheets about this test for providers and patients are available at: https://www.fda.gov/medical-devices/bhntkdljt-tfyzedkljh-aaiqtmz-devices/emergen cy-us e-authorizations us Hemant Delgado MD MICROBIOLOGY - GENERAL ORDERABLE S Final Result [facility] [address] [place] [address], documented in this encounter Visit Diagnoses Diagnosis Pre-op testing- Primary Preoperative examination, unspecified documented in this encounter Care Teams Distributor Operator Relationship Specialty Start Date End Date Iker Feldman [address] [place] [address] PCP - General Family Medicine 12/05/17 Juan Gresham MD [address] [facility] [place] [address] [place] [address] Cardiovascular Disease - Cardiology 12/05/17 Hemant Delgado MD #2 [facility], [address] [address] Consulting Physician Urology 01/19/22 documented as of this encounter
--- OUTSIDE RECORDS SUMMARY | 2024-08-25 10:03 | XMS_ITS | Referral Summary ---
Author Organization [facility] [address] [facility] [address] Address [address] [place] [address] Care Team Providers Care Police Radio Dispatcher Name Role Phone Iker Feldman MD Primary Care Provider [phone] Iker Feldman MD Unavailable [phone] Encounters Date Type Department Care Team Description 08/19/2024 Telephone [facility] Cardiology [address] [facility] [address] [place] [address] Perri Lux NP preop form [...] 1 tablet (88 mcg total) by mouth radiology ct technologist before breakfast Active albuterol HFA (PROVENTIL HFA,VENTOLIN [...] needed for pain Active cholecalciferol (VITAMIN D-3) 85634 unit tablet Take 1 tablet (50,000 Units total) by mouth once a week Active carvediloL (COREG) 3.125 mg tabletIndications :Coronary artery disease involving [place] coronary artery of [place] heart without angina pectoris Take 1 tablet (3.125 mg total) by mouth 2 (two) times a day with meals 180 tablet 3 4 Active clopidogreL (PLAVIX) 75 mg tabletIndications :Coronary artery disease involving [place] coronary artery of [place] heart without angina pectoris Take 1 tablet (75 mg total) by mouth daily 90 tablet 3 4 Active atorvastatin (LIPITOR) 40 mg tabletIndications :Coronary artery disease involving [place] coronary artery of [place] heart without angina pectoris Take 1 tablet (40 mg total) by mouth daily 90 tablet 3 4 Active nitroglycerin (NITROSTAT) 0.4 mg SL tabletIndications :Coronary artery disease involving [place] coronary artery of [place] heart without angina pectoris Place 1 tablet (0.4 mg total) under the tongue every 5 (five) minutes as needed for chest pain Up to 3 doses 25 tablet 4 Active lisinopriL (PRINIVIL,ZESTRIL ) 10 mg tabletIndications :Coronary artery disease involving [place] coronary artery of [place] heart without angina pectoris TAKE ONE TABLET [...] on file 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
--- OUTSIDE RECORDS SUMMARY | 2024-08-25 10:03 | XMS_ITS | Clinical Summary ---
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 Active albuterol HFA (PROVENTIL [...] needed for pain Active cholecalciferol (VITAMIN D-3) 97230 unit tablet Take 1 tablet (50,000 Units total) by mouth once a week Active carvediloL (COREG) 3.125 mg tabletIndications :Coronary artery disease involving [place] coronary artery of [place] heart without angina pectoris Take 1 tablet (3.125 mg total) by mouth 2 (two) times a day with meals 180 tablet 3 4 Active clopidogreL (PLAVIX) 75 mg tabletIndications :Coronary artery disease involving [place] coronary artery of [place] heart without angina pectoris Take 1 tablet (75 mg total) by mouth daily 90 tablet 3 4 Active atorvastatin (LIPITOR) 40 mg tabletIndications :Coronary artery disease involving [place] coronary artery of [place] heart without angina pectoris Take 1 tablet (40 mg total) by mouth daily 90 tablet 3 4 Active nitroglycerin (NITROSTAT) 0.4 mg SL tabletIndications :Coronary artery disease involving [place] coronary artery of [place] heart without angina pectoris Place 1 tablet (0.4 mg total) under the tongue every 5 (five) minutes as needed for chest pain Up to 3 doses 25 tablet 4 Active lisinopriL (PRINIVIL,ZESTRIL ) 10 mg tabletIndications :Coronary artery disease involving [place] coronary artery of [place] heart without angina pectoris TAKE ONE TABLET BY MOUTH DAILY 90 tablet 2 4 Active Active Problems Problem Noted Date Diagnosed Date Atherosclerosis of coronary artery 12/12/2013 Overview (06/15/2016): Coronary atherosclerosis Encounters Date Type Department Care Team Description 08/19/2024 Telephone [facility] Medical [facility] Cardiology [address] [place] [address] Perri Lux NP preop form [...] on file 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
--- OUTSIDE RECORDS SUMMARY | 2024-08-25 10:03 | XMS_ITS | Continuity of Care Document ---
Author Organization [facility] Address [address] [place] [address] Phone Care Team Providers Care Diesel Engine Inspector Name Role Phone Iker Feldman MD Unavailable [...] Encounter PREV VISIT, EST, 65 & OVER [facility], [address], [place], [place], [address], [place] tel:[phone] [facility] Medicine physical (chief complaint) Centrilobular emphysemaChron ic pain syndromeMalign ant neoplasm of bladder, unspecifiedHyp othyroidismMix ed hyperlipidemia Encounter for general adult medical exam w abnormal findingsCorona ry artery disease of [place] coronary artery w/o angina pectorisGERD without esophagitis Bebeto- 5 Gaston Pickett [address], [place], [place], [address] , [place]. [phone] OFFICE/OUTPA TIENT VISIT, [facility], [address], [place], [place], [address], [place] tel:[phone] [facility] pain (chief complaint)anxie ty1 (chief complaint)COPD1 (chief complaint) Chronic pain syndromePrimar y insomniaCentri lobular emphysemaPerso nal history of nicotine dependenceMali gnant neoplasm of bladder, unspecified July- 5 Gaston Pickett [address], [place], [place], [address] , [place]. [phone] OFFICE/OUTPA TIENT VISIT, [facility], [address] [place], [address], [place] tel:[phone] [facility] pain (chief complaint)anxie ty1 (chief complaint) Chronic pain syndromePrimar y insomnia Jun-0 5 Gaston Pickett [address], [place], [place], [address] , [place]. tel:[phone] OFFICE/OUTPA TIENT VISIT, [facility], [address] [place], [address], [place] tel:[phone] [facility] pain (chief complaint)anxie ty1 (chief complaint) Chronic pain syndromePrimar y insomnia May-0 5 Gaston Dong. [address], [place], [place], [address] , [place]. tel:[phone] OFFICE/OUTPA TIENT VISIT, [facility], [address], [place], [place], [address], [place] tel:[phone] [facility] pain (chief complaint)anxie ty1 (chief complaint)COPD1 (chief complaint) Chronic pain syndromeCentri lobular emphysemaPrima ry insomnia Fe-0 5 Gaston Dong. [address], [place], [place], [address] , [place]. tel:[phone] OFFICE/OUTPA TIENT VISIT, [facility], [address], [place], [place], [address], [place] tel:[phone] [facility] pain (chief complaint)anxie ty1 (chief complaint)thyro id1 (chief complaint) Chronic pain syndromePrimar y insomniaHypoth yroidism 5 Gaston Dong. [address], [place], [place], [address] , [place]. tel:[phone] OFFICE/OUTPA TIENT VISIT, [facility], [address], [place], [place], [address], [place] tel:[phone] [facility] pain (chief complaint)anxie ty1 (chief complaint) Chronic pain syndromePrimar y insomnia 4 Gaston Dong. [address], [place], [place], [address] , [place]. tel:[phone] OFFICE/OUTPA TIENT VISIT, [facility], [address], [place], [place], [address], [place] tel:[phone] [facility] pain (chief complaint)anxie ty1 (chief complaint)COPD1 (chief complaint) Chronic pain syndromePrimar y insomniaCentri lobular emphysema 4 Gaston Dong. [address], [place], [place], [address] , [place]. tel:[phone] OFFICE/OUTPA TIENT VISIT, [facility], [address], [place], [place], [address], [place] tel:[phone] [facility] pain (chief complaint)anxie ty1 (chief complaint) Chronic pain syndromePrimar y insomnia 4 Feldman Iker. [address], [place], [place], [address] , [place]. tel:[phone] OFFICE/OUTPA TIENT VISIT, [facility], [address], [place], [place], [address], [place] tel:[phone] [facility] Medicine pain (chief complaint)anxie ty1 (chief complaint) Chronic pain syndromePrimar y insomnia 4 Feldman Iker. [address], [place], [place], [address] , [place]. tel:[phone] OFFICE/OUTPA TIENT VISIT, [facility], [address], [place], [place], [address], [place] tel:[phone] [facility] pain (chief complaint)anxie ty1 (chief complaint)COPD1 (chief complaint) Centrilobular emphysemaChron ic pain syndromePrimar y insomnia 4 Feldman Iker. [address], [place], [place], [address] , [place]. tel:[phone] OFFICE/OUTPA TIENT VISIT, [facility], [address], [place], [place], [address], [place] tel:[phone] [facility] pain (chief complaint)anxie ty1 (chief complaint) Chronic pain syndromePrimar y insomnia 4 Feldman Iker. [address], [place], [place], [address] , [place]. tel:[phone] OFFICE/OUTPA TIENT VISIT, [facility], [address], [place], [place], [address], [place] tel:[phone] [facility] pain (chief complaint)anxie ty1 (chief complaint)COPD1 (chief complaint)bladd er Ca (chief complaint) Centrilobular emphysemaChron ic pain syndromePrimar y insomniaMalign ant neoplasm of bladder, unspecified Bebeto- 4 Gaston Dong. [address], [place], [place], [address] , [place]. tel:[phone] OFFICE/OUTPA TIENT VISIT, [facility], [address], [place], [place], [address], [place] tel:[phone] [facility] pain (chief complaint)anxie ty (chief complaint)thyro id1 (chief complaint)HLP (chief complaint) Chronic pain syndromeHypoth yroidismMixed hyperlipidemia Primary insomniaCentri lobular emphysema 4 Gaston Dong. [address], [place], [place], [address] , [place]. tel:[phone] PREV VISIT, EST, 65 & OVER [facility], [address], [place], [place], [address], [place] tel:[phone] [facility] physical (chief complaint) Encounter for general adult medical exam w abnormal findingsCentri lobular emphysemaChron ic pain syndromePrimar y insomniaHypoth yroidismMalign ant neoplasm of bladder, unspecifiedGER D w/o esophagitisCor onary artery disease of [place] coronary artery w/o angina pectoris 4 Gaston Dong. [address], [place], [place], [address] , [place]. tel:[phone] OFFICE/OUTPA TIENT VISIT, [facility], [address], [place], [place], [address], [place] tel:[phone] [facility] pain (chief complaint)anxie ty1 (chief complaint) Chronic pain syndromePrimar y insomnia May- 4 Gaston Dong. [address], [place], [place], [address] , [place]. tel:[phone] OFFICE/OUTPA TIENT VISIT, [facility], [address], [place], [place], [address], [place] tel:[phone] [facility] pain (chief complaint)anxie ty1 (chief complaint)COPD1 (chief complaint) Centrilobular emphysemaChron ic pain syndromePrimar y insomnia 4 Feldman Iker. [address], [place], [place], [address] , [place]. tel:[phone] OFFICE/OUTPA TIENT VISIT, [facility], [address], [place], [place], [address], [place] tel:[phone] [facility] pain (chief complaint)anxie y1 (chief complaint)hypot hyroidism1 (chief complaint) Hypothyroidism Chronic pain syndromePrimar y insomnia 4 Gaston Dong. [address], [place], [place], [address] , [place]. tel:[phone] OFFICE/OUTPA TIENT VISIT, [facility], [address], [place], [place], [address], [place] tel:[phone] [facility] pain (chief complaint)anxie ty1 (chief complaint) Chronic pain syndromePrimar y insomnia 3 Feldman Iker. [address], [place], [place], [address] , [place]. tel:[phone] OFFICE/OUTPA TIENT VISIT, [facility], [address], [place], [place], [address], [place] tel:[phone] [facility] pain (chief complaint)pain (chief complaint)anxie ty1 (chief complaint) Chronic pain syndromePrimar y insomnia 3 Feldman Iker. [address], [place], [place], [address] , [place]. tel:[phone] OFFICE/OUTPA TIENT VISIT, [facility], [address], [place], [place], [address], [place] tel:[phone] [facility] pain (chief complaint)anxie ty1 (chief complaint) Chronic pain syndromePrimar y insomnia 0 3 Gaston Pickett [address], [place], [place], [address] , [place]. [phone] OFFICE/OUTPA TIENT VISIT, [facility], [address] [place], [address], [place] tel:[phone] [facility] pain (chief complaint)anxie ty1 (chief complaint)hypot hyroidism1 (chief complaint) Chronic pain syndromePrimar y insomniaHypoth yroidism 3 Gaston Pickett [address], [address] , . tel:[phone] OFFICE/OUTPA TIENT VISIT, [facility], [address] [place], [address], tel:[phone] [facility] pain (chief complaint)anxie ty1 (chief complaint) Chronic pain syndromePrimar y insomnia Nov-0 3 Gaston Pickett [address], [address] , [place]. [phone] OFFICE/OUTPA TIENT VISIT, [facility], [address] [place], [address], [place] tel:[phone] [facility] PAIN (chief complaint)anxie ty1 (chief complaint)bladd er CA1 (chief complaint) Chronic pain syndromePrimar y insomniaMalign ant neoplasm of bladder, unspecifiedAcq uired renal cystCentrilobu lar emphysema Oct- 3 Gaston Pickett [address] [place], [address] , [place]. [phone] OFFICE/OUTPA TIENT VISIT, [facility], [address] [place], [address], [place] tel:[phone] [facility] pain (chief complaint)anxie ty1 (chief complaint)GERD1 (chief complaint) Cervantes's esophagus without dysplasiaChron ic pain syndromePrimar y insomnia 3 Gaston Pickett [address], [place], [place], [address] , [place]. tel:[phone] OFFICE/OUTPA TIENT VISIT, [facility], [address], [place], [place], [address], [place] tel:[phone] [facility] pain (chief complaint)anxie ty1 (chief complaint)hemae mesis1 (chief complaint)kidne y tumor1 (chief complaint) HematemesisChr onic pain syndromePrimar y insomniaMalign ant neoplasm of bladder, unspecified 3 Gaston Pickett [address], [place], [place], [address] , [place]. [phone] OFFICE/OUTPA TIENT VISIT, [facility], [address], [place], [place], [address], [place] tel:[phone] [facility] hematemesis1 (chief complaint) HematemesisBar rett's esophagus without dysplasiaAther osclerotic heart disease of [place] coronary artery without angina pectoris 3 Gaston Pickett [address], [place], [place], [address] , [place]. [phone] OFFICE/OUTPA TIENT VISIT, [facility], [address], [place], [place], [address], [place] tel:[phone] [facility] pain (chief complaint)insom nia1 (chief complaint) Chronic pain syndromePrimar y insomnia 3 Gaston Pickett [address], [place], [place], [address] , [place]. tel:[phone] PREV VISIT, EST, 65 & OVER [facility], [address], [place], [place], [address], [place] tel:[phone] [facility] physical (chief complaint) Encounter for general adult medical exam w abnormal findingsHypoth yroidismChroni c pain syndromeCentri lobular emphysemaEleva palomo prostate specific antigen [PSA]Asymptoma tic microscopic hematuriaMixed hyperlipidemia Cervantes's esophagus without dysplasiaPrima ry insomnia 3 Gaston Pickett [address], [place], [place], [address] , [place]. tel:[phone] OFFICE/OUTPA TIENT VISIT, [facility], [address], [place], [place], [address], [place] tel:[phone] [facility] pain (chief complaint)insom nia1 (chief complaint)HTN (chief complaint)thyro id1 (chief complaint)bladd er CA (chief complaint) Chronic pain syndromePrimar y insomniaHypoth yroidismEssent ial (primary) hypertensionMi xed hyperlipidemia Malignant neoplasm of bladder, unspecified 3 Gaston Pickett [address], [place], [place], [address] , [place]. tel:[phone] OFFICE/OUTPA TIENT VISIT, [facility], [address], [place], [place], [address], [place] tel:[phone] [facility] pain (chief complaint)insom nia1 (chief complaint)kidne y1 (chief complaint)COPD1 (chief complaint) Chronic pain syndromePrimar y insomniaOther specified disorder of kidneyCentrilo bular emphysema 3 Gaston Pickett [address], [place], [place], [address] , [place]. tel:[phone] OFFICE/OUTPA TIENT VISIT, [facility], [address], [place], [place], [address], [place] tel:[phone] [facility] pain (chief complaint)insom nia1 (chief complaint)tobac co1 (chief complaint)bladd er CA1 (chief complaint) Chronic pain syndromePrimar y insomniaMalign ant neoplasm of bladder, unspecifiedTob acco use 3 Gaston Pickett [address], [place], [place], [address] , [place]. tel:[phone] OFFICE/OUTPA TIENT VISIT, [facility], [address], [place], [place], [address], [place] tel:[phone] [facility] pain (chief complaint)insom nia1 (chief complaint) Chronic pain syndromePrimar y insomnia 2 Feldman Iker. [address], [place], [place], [address] , [place]. tel:[phone] OFFICE/OUTPA TIENT VISIT, [facility], [address], [place], [place], [address], [place] tel:[phone] [facility] Medicine pain (chief complaint)insom nia1 (chief complaint) Chronic pain syndromePrimar y insomnia 2 Feldman Iker. [address], [place], [place], [address] , [place]. tel:[phone] OFFICE/OUTPA TIENT VISIT, [facility], [address], [place], [place], [address], [place] tel:[phone] [facility] pain (chief complaint)insom nia1 (chief complaint)barre tt1 (chief complaint) Chronic pain syndromePrimar y insomniaBarret t's esophagus without dysplasiaMalig nant neoplasm of bladder, unspecified 2 Feldman Iker. [address], [place], [place], [address] , [place]. tel:[phone] OFFICE/OUTPA TIENT VISIT, [facility], [address], [place], [place], [address], [place] tel:[phone] [facility] pain (chief complaint)insom nia1 (chief complaint)COPD1 (chief complaint)thyro id1 (chief complaint) Chronic pain syndromeBarret t's esophagus without dysplasiaPrima ry insomniaHypoth yroidismCentri lobular emphysema 2 Feldman Iker. [address], [place], [place], [address] , [place]. tel:[phone] OFFICE/OUTPA TIENT VISIT, [facility], [address], [place], [place], [address], [place] tel:[phone] [facility] pain (chief complaint)insom nia1 (chief complaint)CAD (chief complaint) Coronary artery disease of [place] coronary artery w/o angina pectorisChroni c pain syndromePrimar y insomnia 2 Feldman Iker. [address], [place], [place], [address] , [place]. tel:[phone] OFFICE/OUTPA TIENT VISIT, [facility], [address], [place], [place], [address], [place] tel:[phone] [facility] pain (chief complaint)insom nia1 (chief complaint) Chronic pain syndromePrimar y insomnia 2 Feldman Iker. [address], [place], [place], [address] , [place]. tel:[phone] OFFICE/OUTPA TIENT VISIT, [facility], [address], [place], [place], [address], [place] tel:[phone] [facility] pain (chief complaint)insom nia1 (chief complaint) Chronic pain syndromePrimar y insomnia 2 Feldman Iker. [address], [place], [place], [address] , [place]. tel:[phone] OFFICE/OUTPA TIENT VISIT, [facility], [address], [place], [place], [address], [place] tel:[phone] [facility] pain (chief complaint)insom nia1 (chief complaint)Raymond tt1 (chief complaint)renal CA (chief complaint) Polyp of colonBarrett's esophagus without dysplasiaInsom niaChronic pain syndromeCa of left kidney, except renal pelvis 2 Feldman Iker. [address], [place], [place], [address] , [place]. tel:[phone] OFFICE/OUTPA TIENT VISIT, [facility], [address], [place], [place], [address], [place] tel:[phone] [facility] pain (chief complaint)insom nia1 (chief complaint)vitam in D (chief complaint)colon polyp (chief complaint)emphy sema1 (chief complaint) Chronic pain syndromeInsomn iaVitamin D deficiencyPoly p of colonEmphysema 2 Gaston Dong. [address], [place], [place], [address] , [place]. tel:[phone] PREV VISIT, EST, 65 & OVER [facility], [address], [place], [place], [address], [place] tel:[phone] [facility] physical (chief complaint) Hyperlipidemia Chronic pain syndromeMalign ant neoplasm of bladder, unspecifiedBar rett's esophagus without dysplasiaEmphy semaFolate deficiencyHypo calcemiaHypoth yroidismInsomn iaEncounter for general adult medical exam w abnormal findings 2 Gaston Dong. [address], [place], [place], [address] , [place]. tel:[phone] OFFICE/OUTPA TIENT VISIT, [facility], [address], [place], [place], [address], [place] tel:[phone] [facility] pain (chief complaint)insom nia1 (chief complaint)bladd er tumor1 (chief complaint)thyro id1 (chief complaint)CAD1 (chief complaint) Chronic pain syndromeInsomn iaMalignant neoplasm of bladder, unspecifiedHyp erlipidemiaHyp othyroidism 2 Gaston Iker. [address], [place], [place], [address] , [place]. tel:[phone] OFFICE/OUTPA TIENT VISIT, [facility], [address], [place], [place], [address], [place] tel:[phone] [facility] pain (chief complaint)bladd er CA (chief complaint)tobac co (chief complaint)insom nia1 (chief complaint)GERD1 (chief complaint) Chronic pain syndromeInsomn iaBarrett's esophagus without dysplasiaMalig nant neoplasm of bladder, unspecifiedTob acco use 2 Gaston Pickett [address], [place], [place], [address] , [place]. tel:[phone] OFFICE/OUTPA TIENT VISIT, [facility], [address] [place], [address], [place] tel:[phone] [facility] pain (chief complaint)insom nia1 (chief complaint)tobac co1 (chief complaint)bladd er CA (chief complaint)GERD1 (chief complaint) Malignant neoplasm of bladder, unspecifiedIns omniaChronic pain syndromeTobacc o useBarrett's esophagus without dysplasia 1 Gaston Pickett [address], [place], [place], [address] , [place]. tel:[phone] OFFICE/OUTPA TIENT VISIT, [facility], [address], [place], [place], [address], [place] tel:[phone] [facility] pain (chief complaint)insom nia1 (chief complaint)GERD1 (chief complaint)bladd er CA1 (chief complaint) InsomniaChroni c pain syndromeBarret t's esophagus without dysplasiaMalig nant neoplasm of bladder, unspecified 1 Gaston Pickett [address], [place], [place], [address] , [place]. tel:[phone] OFFICE/OUTPA TIENT VISIT, [facility], [address], [place], [place], [address], [place] tel:[phone] [facility] pain (chief complaint)insom nia1 (chief complaint)thyro id1 (chief complaint)bladd er CA (chief complaint) InsomniaHypoth yroidismMalign ant neoplasm of bladder, unspecifiedChr onic pain syndrome 1 Gaston Pickett [address], [place], [place], [address] , [place]. tel:[phone] OFFICE/OUTPA TIENT VISIT, EST [facility], [address], [place], [place], [address], tel:[phone] [facility] pain (chief complaint)insom nia1 (chief complaint)COPD1 (chief complaint)bladd er CA (chief complaint) InsomniaChroni c pain syndromeTobacc o useEmphysemaMa lignant neoplasm of bladder, unspecified 1 Gaston Pickett [address], [place], [place], [address] , [place]. tel:[phone] OFFICE/OUTPA TIENT VISIT, EST [facility], [address], [place], [place], [address], tel:[phone] [facility] pain (chief complaint)insom nia1 (chief complaint)tobac co1 (chief complaint) Chronic pain syndromeInsomn iaTobacco use 1 Gaston Pickett [address], [place], [place], [address] , [place]. tel:[phone] OFFICE/OUTPA TIENT VISIT, EST [facility], [address], [place], [place], [address], [place] tel:[phone] [facility] pain (chief complaint)insom nia1 (chief complaint)renal 1 (chief complaint) LeukocytosisAc qagan tayagungin renal failureHypokal emiaInsomniaCh ronic pain syndromeEssent ial (primary) hypertension 1 Gaston Pickett [address], [place], [place], [address] , [place]. tel:[phone] OFFICE/OUTPA TIENT VISIT, EST [facility], [address] [place], [address], tel:[phone] [facility] pain1 (chief complaint)insom nia1 (chief complaint)barre tt (chief complaint)weigh t loss1 (chief complaint) Chronic pain syndromeInsomn iaBarrett's esophagus without dysplasiaAbnor mal weight loss 1 Feldman Iker. [address], [place], [place], [address] , [place]. tel:[phone] OFFICE/OUTPA TIENT VISIT, [facility], [address], [place], [place], [address], [place] tel:[phone] [facility] pain (chief complaint)insom na1 (chief complaint) Chronic pain syndromeInsomn ia 0 1 Gaston Dong. [address], [place], [place], [address] , [place]. tel:[phone] OFFICE/OUTPA TIENT VISIT, [facility], [address], [place], [place], [address], [place] tel:[phone] [facility] pain (chief complaint)insom nia1 (chief complaint)vitam in D (chief complaint) Chronic pain syndromeInsomn iaVitamin D deficiency, unspecified 1 Gaston Dong. [address], [place], [place], [address] , [place]. tel:[phone] OFFICE/OUTPA TIENT VISIT, [facility], [address], [place], [place], [address], [place] tel:[phone] [facility] pain (chief complaint)insom nia1 (chief complaint) Chronic pain syndromeInsomn ia Jun-0 1 Gaston Dong. [address], [place], [place], [address] , [place]. tel:[phone] OFFICE/OUTPA TIENT VISIT, [facility], [address], [place], [place], [address], [place] tel:[phone] [facility] pain (chief complaint)insom nia1 (chief complaint)COPD1 (chief complaint) Chronic pain syndromeEmphys emaInsomnia May-0 1 Gaston Dong. [address], [place], [place], [address] , [place]. tel:[phone] PREV VISIT, EST, 65 & OVER [facility], [address], [place], [place], [address], tel:[phone] [facility] physical (chief complaint) Encounter for general adult medical exam w abnormal findingsChroni c pain syndromeEmphys emaInsomniaHyp othyroidismCor onary artery disease of [place] coronary artery w/o angina pectorisMalign ant neoplasm of bladder, unspecified 1 Gaston Dong. [address], [place], [place], [address] , [place]. tel:[phone] OFFICE/OUTPA TIENT VISIT, [facility], [address] [place], [address], [place] tel:[phone] [facility] Medicine pain (chief complaint)insom nia1 (chief complaint)COPD1 (chief complaint) EmphysemaChron ic pain syndromeInsomn ia Feb- 0 Gaston Dong. [address] [facility], [place], [place], [address] , [place]. tel:[phone] OFFICE/OUTPA TIENT VISIT, [facility], [address], [place], [place], [address], [place] tel:[phone] [facility] Medicine pain1 (chief complaint)insom nia1 (chief complaint)hypot hyroidism1 (chief complaint)HLP (chief complaint) Hypothyroidism Hyperlipidemia Chronic pain syndromeInsomn ia Feb-0 0 Gaston Dong. [address], [place], [place], [address] , [place]. tel:[phone] OFFICE/OUTPA TIENT VISIT, [facility], [address], [place], [place], [address], [place] tel:[phone] [facility] Medicine pain (chief complaint)insom nia1 (chief complaint)hypot hyroidism1 (chief complaint)CAD1 (chief complaint) Chronic pain syndromeInsomn iaCoronary artery disease of [place] coronary artery w/o angina pectorisHypoth yroidism Jan-0 0 Gaston Dong. [address], [place], [place], [address] , [place]. tel:[phone] OFFICE/OUTPA TIENT VISIT, [facility], [address], [place], [place], [address], [place] tel:[phone] [facility] pain (chief complaint)insom nia1 (chief complaint)tobac co1 (chief complaint) Chronic pain syndromeInsomn iaTobacco use 0 Feldman Iker. [address], [place], [place], [address] , [place]. [phone] OFFICE/OUTPA TIENT VISIT, [facility], [address], [place], [place], [address], [place] tel:[phone] [facility] pain (chief complaint)insom nia1 (chief complaint)tobac co (chief complaint)COPD1 (chief complaint) Chronic pain syndromeInsomn iaEmphysemaTob acco use 0 Feldman Iker. [address], [place], [place], [address] , [place]. [phone] OFFICE/OUTPA TIENT VISIT, [facility], [address], [place], [place], [address], [place] tel:[phone] [facility] pain (chief complaint)insom nia1 (chief complaint)tobac co1 (chief complaint) Chronic pain syndromeInsomn iaTobacco use 0 Feldman Iker. [address], [place], [place], [address] , [place]. tel:[phone] OFFICE/OUTPA TIENT VISIT, [facility], [address], [place], [place], [address], [place] tel:[phone] [facility] pain (chief complaint)insom nia1 (chief complaint) Chronic pain syndromeInsomn iaMalignant neoplasm of bladder, unspecified 0 Feldman Iker. [address], [place], [place], [address] , [place]. [phone] OFFICE/OUTPA TIENT VISIT, [facility], [address], [place], [place], [address], [place] tel:[phone] [facility] pain1 (chief complaint)anxie ty1 (chief complaint)COPD1 (chief complaint)bladd er CA1 (chief complaint) Chronic pain syndromeInsomn iaEmphysemaMal ignant neoplasm of bladder, unspecified Bebeto-0 0 Gaston Pickett [address], [place], [place], [address] , [place]. tel:[phone] OFFICE/OUTPA TIENT VISIT, [facility], [address], [place], [place], [address], [place] tel:[phone] [facility] Medicine pain (chief complaint)anxie ty1 (chief complaint)D (chief complaint) InsomniaChroni c pain syndromeVitami n D deficiency, unspecified 0 0 Gaston Dong. [address], [place], [place], [address] , [place]. tel:[phone] OFFICE/OUTPA TIENT VISIT, [facility], [address], [place], [place], [address], [place] tel:[phone] [facility] Medicine pain (chief complaint)anxie ty1 (chief complaint) Chronic pain syndromeInsomn ia Apr-0 0 Gaston Pickett [address], [place], [place], [address] , [place]. tel:[phone] OFFICE/OUTPA TIENT VISIT, [facility], [address], [address], [place] tel:[phone] [facility] pain1 (chief complaint)anxie ty1 (chief complaint)Raymond tt1 (chief complaint)bladd er1 (chief complaint)HTn (chief complaint) Cervantes's esophagus without dysplasiaChron ic pain syndromeInsomn iaMalignant neoplasm of bladder, unspecifiedEss ential (primary) hypertension Mar-0 0 Gaston Pickett [address], [place], [place], [address] , [place]. tel:[phone] Referring Provider: Franky Dunham [facility] A, [place], [place], [address]. tel:[phone] OFFICE/OUTPA TIENT VISIT, [facility], [address] [place], [address], tel:[phone] [facility] copd (chief complaint)pain1 (chief complaint)anxie ty1 (chief complaint)Raymond tt1 (chief complaint)CAD (chief complaint) InsomniaBarret t's esophagus without dysplasiaChron ic pain syndromeEmphys emaCoronary artery disease of [place] coronary artery w/o angina pectoris 0 Gaston Dong. [address] [facility] [place], [address] , [place]. tel:[phone] Referring Provider: Franky Dunham [facility], [place], [place], [address]. tel:[phone] OFFICE/OUTPA TIENT VISIT, [facility], [address] [place] [address] [address] [place], [address], [place] tel:[phone] [facility] anxiety1 (chief complaint)pain (chief complaint)bladd er CA (chief complaint)Raymond tt1 (chief complaint)COPD1 (chief complaint) Malignant neoplasm of bladder, unspecifiedEmp hysemaBarrett' s esophagus without dysplasiaChron ic pain syndromeInsomn ia 0 Gaston Dong. [address] [facility] [place] [address] , [place]. tel:[phone] Referring Provider: Franky Dunham [facility] A, [place], [place], [address]. tel:[phone] OFFICE/OUTPA TIENT VISIT, [facility], [address] [place], [address], [place] tel:[phone] [facility] chronic pain1 (chief complaint)anxie ty1 (chief complaint)HTN (chief complaint)bladd er CA (chief complaint) Chronic pain syndromeMalign ant neoplasm of bladder, unspecifiedIns omniaEssential (primary) hypertensionCo ronary artery disease of [place] coronary artery w/o angina pectoris 9 Gaston Dong. [address], [place], [place], [address] , [place]. tel:[phone] Referring Provider: Franky Dunham [address], [place], [place], [address]. tel:[phone] PREV VISIT, EST, 65 & OVER [facility], [address], [place], [place], [address], [place] tel:[phone] [facility] Medicine physical (chief complaint) Encounter for general adult medical exam w abnormal findingsEmphys emaBarrett's esophagus without dysplasiaMalig nant neoplasm of bladder, unspecifiedChr onic pain syndromeHypoth yroidismCorona ry artery disease of [place] coronary artery w/o angina pectoris 9 Gaston Dong. [address], [place], [place], [address] , [place]. tel:[phone] Referring Provider: Franky Dunham [address], [place], [place], [address]. tel:[phone] OFFICE/OUTPA TIENT VISIT, EST [facility], [address] [place], [address], [place] tel:[phone] [facility] chronic pain1 (chief complaint)insom nia1 (chief complaint)COPD (chief complaint)HTN (chief complaint) EmphysemaChron ic pain syndromeInsomn iaCoronary artery disease of [place] coronary artery w/o angina pectoris 9 Gaston Dong. [address], [place], [place], [address] , [place]. tel:[phone] OFFICE/OUTPA TIENT VISIT, EST [facility], [address], [address], [place] tel:[phone] [facility] emphysema1 (chief complaint)chron ic pain1 (chief complaint)insom nia1 (chief complaint)GERD1 (chief complaint) EmphysemaChron ic pain syndromeInsomn iaBarrett's esophagus without dysplasia 9 Feldman Iker. [address], [place], [place], [address] , [place]. tel:[phone] OFFICE/OUTPA TIENT VISIT, [facility], [address], [place], [place], [address], [place] tel:[phone] [facility] chronic pain1 (chief complaint)insom nia1 (chief complaint) Chronic pain syndromeInsomn ia Aug 9 Gaston Dong. [address], [place], [place], [address] , [place]. tel:[phone] OFFICE/OUTPA TIENT VISIT, [facility], [address], [place], [place], [address], [place] tel:[phone] [facility] chronic pain1 (chief complaint)insom nia1 (chief complaint)COPD1 (chief complaint)bladd er tumor1 (chief complaint) Chronic pain syndromeInsomn iaEmphysemaMal ignant neoplasm of bladder, unspecified 9 Gaston Dong. [address], [place], [place], [address] , [place]. [phone] OFFICE/OUTPA TIENT VISIT, [facility], [address], [place], [place], [address], [place] tel:[phone] [facility] chronic pain (chief complaint)anxie ty1 (chief complaint)bladd er CA (chief complaint)lung (chief complaint) Chronic pain syndromeInsomn iaScreening for lung caMalignant neoplasm of bladder, unspecified 9 Gaston Dong. [address], [place], [place], [address] , [place]. tel:[phone] Referring Provider: Iker Feldman [address], [place], [place], [address]. tel:[phone] OFFICE/OUTPA TIENT VISIT, [facility], [address], [place], [place], [address], [place] tel:[phone] [facility] vitamin D1 (chief complaint)thyro id1 (chief complaint)chron ic pain1 (chief complaint)insom nia1 (chief complaint) Hypothyroidism InsomniaChroni c pain syndromeVitami n D deficiency, unspecified 9 Gaston Dong. [address], [place], [place], [address] , [place]. tel:[phone] Referring Provider: Franky Dunham [address], [place], [place], [address]. tel:[phone] OFFICE/OUTPA TIENT VISIT, [facility], [address], [place], [place], [address], [place] tel:[phone] [facility] chronic pain (chief complaint)insom nia1 (chief complaint) Chronic pain syndromeInsomn ia 9 Gaston Dong. [address], [place], [place], [address] , [place]. tel:[phone] Referring Provider: Franky Dunham [address], [place], [place], [address]. tel:[phone] OFFICE/OUTPA TIENT VISIT, [facility], [address], [place], [place], [address], [place] tel:[phone] [facility] chronci pain1 (chief complaint)hypot hyroidism1 (chief complaint)CAD1 (chief complaint)lung (chief complaint) Chronic pain syndromeHypoth yroidismCorona ry artery disease of [place] coronary artery w/o angina pectorisScreen ing for lung caInsomnia 9 Gaston Dong. [address], [place], [place], [address] , [place]. tel:[phone] Referring Provider: Frnaky Dunham [address], [place], [place], [address]. tel:[phone] OFFICE/OUTPA TIENT VISIT, [facility], [address], [place], [place], [address], [place] tel:[phone] [facility] chronic pain1 (chief complaint)insom nia1 (chief complaint) Chronic pain syndromeInsomn ia 9 Gaston Dong. [address], [place], [place], [address] , [place]. tel:[phone] Referring Provider: Franky Dunham [address], [place], [place], [address]. tel:[phone] OFFICE/OUTPA TIENT VISIT, [facility], [address], [address], [place] tel:[phone] [facility] CAD1 (chief complaint)Raymond tt1 (chief complaint)bladd er tumor1 (chief complaint)chron ic pain1 (chief complaint)insom nia1 (chief complaint) Cervantes's esophagus without dysplasiaChron ic pain syndromeCorona ry artery disease of [place] coronary artery w/o angina pectorisEmphys emaInsomnia 9 Gaston Dong. [address], [place], [place], [address] , [place]. tel:[phone] Referring Provider: Franky Dunham [address], [place], [place], [address]. tel:[phone] OFFICE/OUTPA TIENT VISIT, [facility], [address], [address], [place] tel:[phone] [facility] chronic pain (chief complaint)insom nia1 (chief complaint)bladd er CA1 (chief complaint) Chronic pain syndromeInsomn iaMalignant neoplasm of bladder, unspecified 8 Gaston Dong. [address], [place], [place], [address] , [place]. tel:[phone] Referring Provider: Franky Dunham [address], [place], [place], [address]. tel:[phone] OFFICE/OUTPA TIENT VISIT, [facility], [address], [place], [place], [address], [place] tel:[phone] [facility] chronic pain (chief complaint)anxie ty1 (chief complaint)renal lesion (chief complaint)Raymond tt (chief complaint) InsomniaMalign ant neoplasm of bladder, unspecifiedChr onic pain syndromeBarret t's esophagus without dysplasia 8 Gaston Dong. [address], [place], [place], [address] , [place]. tel:[phone] Referring Provider: Franky Dunham [address], [place], [place], [address]. tel:[phone] OFFICE/OUTPA TIENT VISIT, EST [facility], [address], [place], [place], [address], [place] tel:[phone] [facility] thyroid1 (chief complaint)chron ic pain1 (chief complaint)insom nia1 (chief complaint)COPD1 (chief complaint)bladd er tumor1 (chief complaint) EmphysemaInsom niaOther cystic kidney diseasesHypoth yroidismChroni c pain syndrome 8 Gaston Pickett [address], [place], [place], [address] , [place]. tel:[phone] Referring Provider: Franky Dunham [address], [place], [place], [address]. tel:[phone] PREV VISIT, EST, AGE 40-64 [facility], [address] [place], [address], [place] tel:[phone] [facility] Physical (chief complaint) Encounter for general adult medical exam w abnormal findingsChroni c pain syndromeInsomn iaMalignant neoplasm of bladder, unspecifiedCor onary artery disease of [place] coronary artery w/o angina pectorisHypoth yroidismEmphys zuleima 8 Gaston [address], [place], [place], [address] , [place]. tel:[phone] Referring Provider: Franky Dunham [facility] A, [place], [place], [address]. tel:[phone] OFFICE/OUTPA TIENT VISIT, EST [facility], [address], [place], [place], [address], [place] tel:[phone] [facility] bladder CA (chief complaint)kidne y cyst1 (chief complaint)chron ic pain1 (chief complaint)insom nia1 (chief complaint) Malignant neoplasm of bladder, unspecifiedOth er cystic kidney diseasesChroni c pain syndromeInsomn ia 8 Gaston Dong. [address], [place], [place], [address] , [place]. tel:[phone] Referring Provider: Franky Dunham [address], [place], [place], [address]. tel:[phone] OFFICE/OUTPA TIENT VISIT, [facility], [address], [address], [place] tel:[phone] [facility] chronic pain1 (chief complaint)anxie ty1 (chief complaint)COPD1 (chief complaint)renal 1 (chief complaint) EmphysemaChron ic pain syndromeBladde r disorder, unspecifiedIns omnia 8 Gaston Pickett [address], [place], [place], [address] , [place]. tel:[phone] OFFICE/OUTPA TIENT VISIT, [facility], [address], [address], [place] tel:[phone] [facility] kidney1 (chief complaint)chron ic pain (chief complaint)insom nia1 (chief complaint) Chronic pain syndromeBladde r disorder, unspecifiedOth er cystic kidney diseases 8 Gaston Pickett [address], [place], [place], [address] , [place]. tel:[phone] Referring Provider: Franky Dunham [address], [place], [place], [address]. tel:[phone] OFFICE/OUTPA TIENT VISIT, [facility], [address], [address], [place] tel:[phone] [facility] hypothyroidism (chief complaint)HLP (chief complaint)chron ic pain1 (chief complaint)insom nia1 (chief complaint) Hypothyroidism Hyperlipidemia Chronic pain syndromeInsomn ia 8 Gaston Dong. [address], [place], [place], [address] , [place]. tel:[phone] Referring Provider: Franky Dunham [address], [place], [place], [address]. tel:[phone] OFFICE/OUTPA TIENT VISIT, [facility], [address], [place], [place], [address], [place] tel:[phone] [facility] chronic pain (chief complaint)insom nia1 (chief complaint)CAD1 (chief complaint)COPD1 (chief complaint) Chronic pain syndromeCorona ry artery disease of [place] coronary artery w/o angina pectorisInsomn iaTobacco use 8 Gaston Dong. [address], [place], [place], [address] , [place]. tel:[phone] Referring Provider: Farnky Dunham [address], [place], [place], [address]. tel:[phone] OFFICE/OUTPA TIENT VISIT, [facility], [address], [place], [place], [address], [place] tel:[phone] [facility] chronic pain (chief complaint)insom nia1 (chief complaint)tobac co1 (chief complaint) Chronic pain syndromeInsomn iaTobacco use May-3 8 Gaston Dong. [address], [place], [place], [address] , [place]. tel:[phone] OFFICE/OUTPA TIENT VISIT, [facility], [address], [place], [place], [address], [place] tel:[phone] [facility] chronic pain1 (chief complaint)anxie ty1 (chief complaint)tobac co1 (chief complaint)Raymond tt (chief complaint) Cervantes's esophagus without dysplasiaInsom niaChronic pain syndromeEmphys zuleima May-0 8 Gaston Dong. [address], [place], [place], [address] , [place]. tel:[phone] Referring Provider: Franky Dunham [address], [place], [place], [address]. tel:[phone] OFFICE/OUTPA TIENT VISIT, [facility], [address], [place], [place], [address], [place] tel:[phone] [facility] chronic pain1 (chief complaint)insom nia1 (chief complaint) InsomniaChroni c pain syndrome 8 Gaston Dong. [address], [place], [place], [address] , [place]. tel:[phone] OFFICE/OUTPA TIENT VISIT, [facility], [address], [place], [place], [address], [place] tel:[phone] [facility] COPD1 (chief complaint)chron ic pain1 (chief complaint)insom nia1 (chief complaint)barre tt1 (chief complaint) Cervantes's esophagus without dysplasiaEmphy semaInsomniaCh ronic pain syndrome 8 Gaston Dong. [address], [place], [place], [address] , [place]. tel:[phone] Referring Provider: Franky Dunham [address], [place], [place], [address]. tel:[phone] OFFICE/OUTPA TIENT VISIT, [facility], [address], [place], [place], [address], [place] tel:[phone] [facility] sob (chief complaint)chron ic pain1 (chief complaint)insom nia1 (chief complaint) EmphysemaInsom niaChronic pain syndrome 7 Gaston Dong. [address], [place], [place], [address] , [place]. tel:[phone] Referring Provider: Franky Dunham [address], [place], [place], [address]. tel:[phone] OFFICE/OUTPA TIENT VISIT, [facility], [address], [place], [place], [address], [place] tel:[phone] [facility] chrnoic pain (chief complaint)anxei ty1 (chief complaint) Chronic pain syndromeInsomn ia Nov- 7 Gaston Pickett [address], [place], [place], [address] , [place]. tel:[phone] Referring Provider: Franky Dunham [address], [place], [place], [address]. tel:[phone] OFFICE/OUTPA TIENT VISIT, EST [facility], [address], [place], [place], [address], [place] tel:[phone] [facility] chronic pain1 (chief complaint)anxie ty1 (chief complaint)thyro id1 (chief complaint)Raymond tt1 (chief complaint) InsomniaHypoth yroidismBarret t's esophagus without dysplasiaChron ic pain syndrome Dec- 7 Gaston Pickett [address], [place], [place], [address] , [place]. [phone] Referring Provider: Franky Dunham [facility] [address], [place], [place], [address]. tel:[phone] OFFICE/OUTPA TIENT VISIT, [facility], [address] [place], [address], [place] tel:[phone] [facility] chronic pain (chief complaint)anxie ty1 (chief complaint)ED (chief complaint) Chronic pain syndromeInsomn iaMale erectile dysfunction, unspecified Sep-0 7 [address], [place], [place], [address] , [place]. [phone] Referring Provider: Franky Dunham [facility] A, [place], [place], [address]. tel:[phone] PREV VISIT, EST, AGE 40-64 [facility], [address], [place], [place], [address], [place] tel:[phone] [facility] Physical (chief complaint) Encounter for general adult medical exam w abnormal findingsHypoth yroidismInsomn iaAtherosclero tic heart disease of [place] coronary artery without angina pectoris 7 Gaston Dong. [address], [place], [place], [address] , [place]. tel:[phone] Referring Provider: Franky Dunham [address], [place], [place], [address]. tel:[phone] OFFICE/OUTPA TIENT VISIT, [facility], [address], [place], [place], [address], [place] tel:[phone] [facility] Cervantes (chief complaint)insom nia1 (chief complaint)chron ic pain1 (chief complaint)CAD (chief complaint) Cervantes's esophagus without dysplasiaChron ic pain syndromeAthero sclerotic heart disease of [place] coronary artery without angina pectorisInsomn ia Gaston Dong. [address], [place], [place], [address] , [place]. tel:[phone] Referring Provider: Franky Dunham [address], [place], [place], [address]. tel:[phone] OFFICE/OUTPA TIENT VISIT, [facility], [address], [place], [place], [address], [place] tel:[phone] [facility] chronic pain1 (chief complaint)insom nia1 (chief complaint) Chronic pain syndromeInsomn ia 7 Gaston Dong. [address], [place], [place], [address] , [place]. tel:[phone] Referring Provider: Franky Dunham [address], [place], [place], [address]. tel:[phone] OFFICE/OUTPA TIENT VISIT, [facility], [address], [place], [place], [address], [place] tel:[phone] [facility] CAD (chief complaint)thyro id1 (chief complaint)hep C (chief complaint)chron ic pain1 (chief complaint)anxie ty1 (chief complaint) Hypothyroidism Atheroscleroti c heart disease of [place] coronary artery without angina pectorisInsomn iaHepatitis C 7 Gaston [address]nog. [address], [place], [place], [address] , [place]. tel:[phone] Referring Provider: Franky Dunham [facility] A, [place], [place], [address]. tel:[phone] OFFICE/OUTPA TIENT VISIT, [facility], [address], [place], [place], [address], [place] tel:[phone] [facility] chronic pain (chief complaint)insom nia1 (chief complaint)hep C (chief complaint)HLP (chief complaint) InsomniaHyperl ipidemiaEncoun ter for screening for other viral diseasesHypoth yroidism 7 Gaston Dong. [address], [place], [place], [address] , [place]. tel:[phone] Referring Provider: Franky Dunham [facility] A, [place], [place], [address]. tel:[phone] OFFICE/OUTPA TIENT VISIT, [facility], [address], [place], [address], [place] tel:[phone] [facility] emphysema1 (chief complaint)chron ic pain (chief complaint)insom nia1 (chief complaint)CAD1 (chief complaint) COPDInsomniaCh ronic pain syndromeAthero sclerotic heart disease of [place] coronary artery without angina pectoris 7 Gaston Pickett [address], [place], [place], [address] , [place]. tel:[phone] Referring Provider: Franky Dunham [address], [place], [place], [address]. tel:[phone] OFFICE/OUTPA TIENT VISIT, [facility], [address], [address], [place] tel:[phone] [facility] chronic pain1 (chief complaint)insom nia1 (chief complaint)CAD (chief complaint)tobac co1 (chief complaint) InsomniaTobacc o useChronic pain syndromeAthero sclerotic heart disease of [place] coronary artery without angina pectoris 7 Gaston Dong. [address], [place], [place], [address] , [place]. tel:[phone] Referring Provider: Franky Dunham [address], [place], [place], [address]. tel:[phone] OFFICE/OUTPA TIENT VISIT, [facility], [address], [place], [place], [address], [place] tel:[phone] [facility] chronic pain (chief complaint)insom nia1 (chief complaint)tobac co1 (chief complaint) Chronic pain syndromeInsomn iaTobacco use 7 Gaston Dong. [address], [place], [place], [address] , [place]. tel:[phone] Referring Provider: Franky Dunham [address], [place], [place], [address]. tel:[phone] OFFICE/OUTPA TIENT VISIT, [facility], [address], [place], [place], [address], [place] tel:[phone] [facility] chronic pain1 (chief complaint)anxie ty1 (chief complaint)ED (chief complaint)GERD1 (chief complaint) Cervantes's esophagus without dysplasiaChron ic pain syndromeInsomn iaMale erectile dysfunction, unspecified 6 Gaston Pickett [address], [place], [place], [address] , [place]. tel:[phone] Referring Provider: Franky Dunham [address], [place], [place], [address]. tel:[phone] OFFICE/OUTPA TIENT VISIT, [facility], [address], [place], [place], [address], [place] tel:[phone] [facility] chronic pain (chief complaint)anxie ty1 (chief complaint) Chronic pain syndromeInsomn ia 6 Gaston Dong. [address], [place], [place], [address] , [place]. tel:[phone] Referring Provider: Franky Dunham [address], [place], [place], [address]. tel:[phone] OFFICE/OUTPA TIENT VISIT, [facility], [address], [place], [place], [address], [place] tel:[phone] [facility] chronic pain (chief complaint)anxie ty1 (chief complaint)hypot hyroidism (chief complaint)HTN (chief complaint) Chronic pain syndromeInsomn iaEssential (primary) hypertensionHy pothyroidism 6 Gaston Dong. [address], [place], [place], [address] , [place]. tel:[phone] Referring Provider: Franky Dunham [address], [place], [place], [address]. tel:[phone] OFFICE/OUTPA TIENT VISIT, [facility], [address], [place], [place], [address], [place] tel:[phone] [facility] chronic pain1 (chief complaint)anxie ty1 (chief complaint)GERD1 (chief complaint)HTN (chief complaint) Chronic pain syndromeBarret t's esophagus without dysplasiaEssen tial (primary) hypertensionAn xiolytic dependence 6 Gaston Dong. [address], [place], [place], [address] , [place]. tel:[phone] Referring Provider: Franky Dunham [address], [place], [place], [address]. tel:[phone] OFFICE/OUTPA TIENT VISIT, [facility], [address], [place], [place], [address], [place] tel:[phone] [facility] chronic pain (chief complaint)anxie ty1 (chief complaint) Chronic pain syndromeAnxiol ytic dependence 6 Gaston Dong. [address], [place], [place], [address] , [place]. tel:[phone] Referring Provider: Franky Dunham [address], [place], [place], [address]. tel:[phone] OFFICE/OUTPA TIENT VISIT, [facility], [address], [address], [place] tel:[phone] [facility] CAD (chief complaint)HLP (chief complaint)hypot hyroidism (chief complaint)chron ic pain (chief complaint) Atheroscleroti c heart disease of [place] coronary artery without angina pectorisAnxiol ytic dependenceHype rlipidemiaChro flores pain syndrome 6 Gaston Dong. [address], [place], [place], [address] , [place]. [phone] Referring Provider: Franky Dunham [facility] A, [place], [place], [address]. tel:[phone] OFFICE/OUTPA TIENT VISIT, [facility], [address] [place], [address], tel:[phone] [facility] chronic pain (chief complaint)insom nia1 (chief complaint)ED1 (chief complaint) Chronic pain syndromeInsomn iaOther male erectile dysfunctionCor onary artery disease of [place] coronary artery w/o angina pectoris 6 Gaston Dong. [address], [place], [place], [address] , [place]. tel:[phone] Referring Provider: Franky Dunham [facility] A, [place], [place], [address]. tel:[phone] OFFICE/OUTPA TIENT VISIT, [facility], [address] [place], [address], [place] tel:[phone] [facility] chronic pain (chief complaint)anxie ty1 (chief complaint) Chronic pain syndromeAnxiol ytic dependence 6 Gaston Dong. [address], [place], [place], [address] , [place]. tel:[phone] Referring Provider: Franky Dunham [facility] A, [place], [place], [address]. tel:[phone] OFFICE/OUTPA TIENT VISIT, [facility], [address], [place], [place], [address], [place] tel:[phone] [facility] chronic pain (chief complaint)anxie ty1 (chief complaint)barre tt (chief complaint)CAD (chief complaint) Chronic pain syndromeBarret t's esophagus without dysplasiaCoron william artery disease of [place] coronary artery w/o angina pectorisEncoun ter for screening for malignant neoplasm of prostate Jun-2 6 Gaston Dong. [address], [place], [place], [address] , [place]. tel:[phone] Referring Provider: Franky Dunham [facility] [address], [place], [place], [address]. tel:[phone] OFFICE/OUTPA TIENT VISIT, [facility], [address], [place], [place], [address], [place] tel:[phone] [facility] chronic pain (chief complaint)anxie ty1 (chief complaint)dizzi ness (chief complaint)anemi a1 (chief complaint) AnemiaDizzines sChronic pain syndrome Apr-0 6 Gaston Dong. [address], [place], [place], [address] , [place]. [phone] Referring Provider: Franky Dunham [address], [place], [place], [address]. tel:[phone] OFFICE/OUTPA TIENT VISIT, [facility], [address], [place], [place], [address], [place] tel:[phone] [facility] chronic pain (chief complaint)anxie ty1 (chief complaint) Other insomniaChroni c pain syndrome Mar-0 6 Gaston Dong. [address], [place], [place], [address] , [place]. [phone] Referring Provider: Franky Dunham [address], [place], [place], [address]. tel:[phone] OFFICE/OUTPA TIENT VISIT, [facility], [address], [place], [place], [address], [place] tel:[phone] [facility] GERD1 (chief complaint)HLP1 (chief complaint)chron ic pain (chief complaint)insom nia1 (chief complaint) Hyperlipidemia Chronic pain syndromeGERD without esophagitisHyp othyroidism Fe 6 Gatson Dong. [address], [place], [place], [address] , [place]. tel:[phone] Referring Provider: Franky Dunham [address], [place], [place], [address]. tel:[phone] OFFICE/OUTPA TIENT VISIT, [facility], [address], [place], [place], [address], [place] tel:[phone] [facility] chronic pain (chief complaint)anxie ty1 (chief complaint)GERD1 (chief complaint)CAD (chief complaint) Chronic pain syndromeOther insomniaCorona ry artery disease of [place] coronary artery without angina pectorisHyperl ipidemia 5 Gaston Dong. [address], [place], [place], [address] , [place]. tel:[phone] Referring Provider: Franky Dunham [address], [place], [place], [address]. tel:[phone] OFFICE/OUTPA TIENT VISIT, [facility], [address], [place], [place], [address], [place] tel:[phone] [facility] right ankle pain (chief complaint)anxie ty1 (chief complaint) Chronic pain syndromeOther insomnia 5 Gaston Dong. [address], [place], [place], [address] , [place]. tel:[phone] Referring Provider: Franky Dunham [address], [place], [place], [address]. tel:[phone] OFFICE/OUTPA TIENT VISIT, [facility], [address], [place], [place], [address], [place] tel:[phone] [facility] ankle pain1 (chief complaint)insom nia1 (chief complaint) Secondary osteoarthritis , right ankle and footOther insomnia Dec-3 0 5 Gaston Dong. [address], [place], [place], [address] , [place]. tel:[phone] Referring Provider: Franky Dunham [address], [place], [place], [address]. tel:[phone] OFFICE/OUTPA TIENT VISIT, [facility], [address], [place], [place], [address], [place] tel:[phone] [facility] ankle pain (chief complaint)insom alverto (chief complaint)CAD (chief complaint)gastr ic ulcer (chief complaint) Pain in right ankleOpioid dependence, uncomplicatedH ypertensive heart disease without heart failureChronic gastric ulcer without hemorrhage or perforationTob acco use Dec- 5 Gaston Dong. [address], [place], [place], [address] , [place]. tel:[phone] Referring Provider: Franky Dunham [address], [place], [place], [address]. tel:[phone] OFFICE/OUTPA TIENT VISIT, [facility], [address], [place], [place], [address], [place] tel:[phone] [facility] HTN (chief complaint)gastr ic ulcer (chief complaint)insom alverto (chief complaint)hypot hyroidism (chief complaint) Insomnia, unspecifiedUns pecified hypothyroidism Unspecified essential hypertensionAc qagan tayagungin gastric ulcer without mention of hemorrhage or perforation, with obstruction Nov-0 5 Gaston Dong. [address], [place], [place], [address] , [place]. tel:[phone] Referring Provider: Franky Dunham [address], [place], [place], [address]. tel:[phone] OFFICE/OUTPA TIENT VISIT, [facility], [address], [place], [place], [address], [place] tel:[phone] [facility] pain (chief complaint)anxie ty (chief complaint)hypot hyroidism (chief complaint)gERD (chief complaint) Insomnia, unspecifiedUns pecified hypothyroidism Unspecified essential hypertension 5 Gaston Pickett [address], [place], [place], [address] , [place]. [phone] Referring Provider: Franky Dunham [address], [place], [place], [address]. tel:[phone] OFFICE/OUTPA TIENT VISIT, [facility], [address], [place], [place], [address], [place] tel:[phone] [facility] chronic apin (chief complaint)anxie ty (chief complaint) Other chronic pain 5 Gaston Pickett [address], [place], [place], [address] , [place]. [phone] Referring Provider: Franky Dunham [address], [place], [place], [address]. tel:[phone] OFFICE/OUTPA TIENT VISIT, [facility], [address], [place], [place], [address], [place] tel:[phone] [facility] chronic pain (chief complaint)anxie ty (chief complaint) Ankle pain 5 Gaston Pickett [address], [place], [place], [address] , [place]. [phone] Referring Provider: Franky Dunham [address], [place], [place], [address]. tel:[phone] OFFICE/OUTPA TIENT VISIT, [facility], [address], [place], [place], [address], [place] tel:[phone] [facility] chronic pain (chief complaint)anxie ty (chief complaint)hypot hyroidism (chief complaint) Hypothyroidism Pain in joint involving lower legInsomnia, OtherScreening for malignant neoplasms of the prostate 5 Gaston Pickett [address], [place], [place], [address] , [place]. tel:[phone] Referring Provider: Franky Dunham [address], [place], [place], [address]. tel:[phone] OFFICE/OUTPA TIENT VISIT, [facility], [address], [place], [place], [address], [place] tel:[phone] [facility] chronic pain (chief complaint)anxie ty (chief complaint)gastr ic ulcer (chief complaint)CAD (chief complaint) Insomnia, OtherCAD, [place] VesselAcute gastric ulcer without mention of hemorrhage or perforation, with obstructionOpi oid type dependence, unspecified use Apr-0 2 5 Gaston Dong. [address], [place], [place], [address] , [place]. tel:[phone] Referring Provider: Franky Dunham [address], [place], [place], [address]. tel:[phone] OFFICE/OUTPA TIENT VISIT, [facility], [address], [place], [place], [address], [place] tel:[phone] [facility] chronic pain (chief complaint)insom alverto (chief complaint) Insomnia, OtherPain in joint involving lower legOpioid type dependence, unspecified useSedative, hypnotic or anxiolytic dependence, unspecified Mar-0 2- 5 Gaston Pickett [address], [place], [place], [address] , [place]. tel:[phone] Referring Provider: Franky Dunham [address], [place], [place], [address]. tel:[phone] OFFICE/OUTPA TIENT VISIT, [facility], [address], [place], [place], [address], [place] tel:[phone] [facility] chornic pain (chief complaint)anxie ty (chief complaint)HLP (chief complaint)hypot hyroidism (chief complaint) Hypothyroidism Insomnia, OtherOther and unspecified hyperlipidemia Pain in joint involving lower leg Feb-0 2-201 5 Gaston Pickett [address], [place], [place], [address] , [place]. tel:[phone] Referring Provider: Franky Dunham [address], [place], [place], [address]. tel:[phone] OFFICE/OUTPA TIENT VISIT, [facility], [address], [place], [place], [address], [place] tel:[phone] [facility] GERD (chief complaint)chron ic pain (chief complaint)anxie ty (chief complaint)HLP (chief complaint) Hypothyroidism CAD, [place] VesselPain in joint involving lower legHypertensio n, Unspecified 5 Gaston Dong. [address], [place], [place], [address] , [place]. [phone] Referring Provider: Franky Dunham [address], [place], [place], [address]. tel:[phone] OFFICE/OUTPA TIENT VISIT, [facility], [address], [place], [place], [address], [place] tel:[phone] [facility] chronic pain (chief complaint)Anxie ty (chief complaint)HLP (chief complaint) Other and unspecified hyperlipidemia Pain in joint involving lower leg 4 Gaston Dong. [address], [place], [place], [address] , [place]. [phone] Referring Provider: Franky Dunham [address], [place], [place], [address]. tel:[phone] OFFICE/OUTPA TIENT VISIT, [facility], [address], [place], [place], [address], [place] tel:[phone] [facility] HLP (chief complaint)chron ic pain (chief complaint)anxie ty (chief complaint)HTN (chief complaint)CAD (chief complaint)GERD (chief complaint) Hypothyroidism CAD, [place] VesselHyperten jayleen, UnspecifiedCHR ONIC PAIN NEC 4 Gaston Pickett [address], [place], [place], [address] , [place]. tel:[phone] Referring Provider: Iker Feldman, [address], [place], [place], [address]. tel:[phone] OFFICE/OUTPA TIENT VISIT, [facility], [address], [place], [place], [address], [place] [phone] [facility] chronic pain (chief complaint)anxie ty (chief complaint) Hypothyroidism Pain in joint involving lower leg 4 Gaston Dong. [address], [place], [place], [address] , [place]. tel:[phone] Referring Provider: Franky Dunham [address], [place], [place], [address]. tel:[phone] OFFICE/OUTPA TIENT VISIT, [facility], [address], [place], [place], [address], [place] tel:[phone] [facility] chronic pain (chief complaint)anxie ty (chief complaint)GERD (chief complaint)CAD (chief complaint) Pain in joint involving lower legCAD, [place] VesselAcute gastric ulcer without mention of hemorrhage or perforation, with obstructionHyp othyroidism 4 Gaston Dong. [address], [place], [place], [address] , [place]. tel:[phone] Referring Provider: Franky Dunham [address], [place], [place], [address]. tel:[phone] OFFICE/OUTPA TIENT VISIT, [facility], [address], [place], [place], [address], [place] [phone] [facility] chornic pain (chief complaint)anxie ty (chief complaint)HTN (chief complaint) CHRONIC PAIN NECHypertensio n, Unspecified 4 Gaston Dong. [address], [place], [place], [address] , [place]. tel:[phone] Referring Provider: Iker Feldman [address], [place], [place], [address]. tel:[phone] OFFICE/OUTPA TIENT VISIT, [facility], [address], [place], [place], [address], [place] tel:[phone] [facility] GERD (chief complaint)chorn ic pain (chief complaint)anxie ty (chief complaint) GERDCHRONIC PAIN NEC 4 Gaston Dong. [address], [place], [place], [address] , [place]. tel:[phone] Referring Provider: Iker Feldman, [address], [place], [place], [address]. tel:[phone] OFFICE/OUTPA TIENT VISIT, [facility], [address], [place], [place], [address], [place] tel:[phone] [facility] gastric ulcer (chief complaint)chorn ic pain (chief complaint)anxie ty (chief complaint)hypot hyroidism (chief complaint) Acute gastritis (without mention of hemorrhage)CHR ONIC PAIN NECPain in joint involving lower legHypothyroid ism 4 Gaston Dong. [address], [place], [place], [address] , [place]. tel:[phone] Referring Provider: Franky Dunham [address], [place], [place], [address]. tel:[phone] OFFICE/OUTPA TIENT VISIT, [facility], [address], [place], [place], [address], [place] tel:[phone] [facility] chornic pain (chief complaint)anxie ty (chief complaint)gastr ic ulcer (chief complaint)CAD (chief complaint) Acute gastric ulcer without mention of hemorrhage or perforation, with obstructionPai n in joint involving lower legCAD, [place] 4 Gaston Dong. [address], [place], [place], [address] , [place]. tel:[phone] Referring Provider: Franky Dunham [address], [place], [place], [address]. tel:[phone] OFFICE/OUTPA TIENT VISIT, [facility], [address], [place], [place], [address], [place] tel:[phone] [facility] HLP (chief complaint)CAD (chief complaint)hemat uria (chief complaint)chorn ic pain (chief complaint)anxie ty (chief complaint) Other and unspecified hyperlipidemia CAD, [place] VesselHEMATURI A NOSPain in joint involving lower leg 4 Gaston Dong. [address], [place], [place], [address] , [place]. tel:[phone] Referring Provider: Franky Dunham [address], [place], [place], [address]. tel:[phone] OFFICE/OUTPA TIENT VISIT, [facility], [address], [place], [place], [address], [place] tel:[phone] [facility] hematuria (chief complaint)hypot hyroidism (chief complaint)chron ic painPt (chief complaint) HEMATURIA NOSCHRONIC PAIN NECHypothyroid ism 4 Gaston Dong. [address], [place], [place], [address] , [place]. [phone] Referring Provider: Franky Dunham [address], [place], [place], [address]. tel:[phone] OFFICE/OUTPA TIENT VISIT, [facility], [address], [place], [place], [address], [place] tel:[phone] [facility] chronic pain (chief complaint)HLP (chief complaint)Anxie ty (chief complaint)hemtu valerio (chief complaint) CHRONIC PAIN NECHypothyroid ismOther and unspecified hyperlipidemia HEMATURIA NOS 4 Gaston Dong. [address], [place], [place], [address] , [place]. [phone] Referring Provider: Franky Dunham [address], [place], [place], [address]. tel:[phone] OFFICE/OUTPA TIENT VISIT, [facility], [address], [place], [place], [address], [place] tel:[phone] [facility] CAD (chief complaint)chorn ic pain (chief complaint)anxie ty (chief complaint)Hypot hyroidism (chief complaint) Hypothyroidism CAD, [place] VesselOther and unspecified hyperlipidemia CHRONIC PAIN NEC 4 Gaston Dong. [address], [place], [place], [address] , [place]. tel:[phone] Referring Provider: Franky Dunham [address], [place], [place], [address]. tel:[phone] OFFICE/OUTPA TIENT VISIT, [facility], [address], [place], [place], [address], [place] tel:[phone] [facility] chronic pain (chief complaint)anxie ty (chief complaint) CHRONIC PAIN NEC 3 Gaston Dong. [address], [place], [place], [address] , [place]. tel:[phone] Referring Provider: Franky Dunham [address], [place], [place], [address]. tel:[phone] OFFICE/OUTPA TIENT VISIT, [facility], [address], [place], [place], [address], [place] tel:[phone] [facility] chronic pain (chief complaint)anxie ty (chief complaint) CHRONIC PAIN NECHypothyroid ismOther and unspecified hyperlipidemia 3 Gaston Dong. [address], [place], [place], [address] , [place]. tel:[phone] Referring Provider: Franky Dunham [address], [place], [place], [address]. tel:[phone] OFFICE/OUTPA TIENT VISIT, [facility], [address], [place], [place], [address], [place] tel:[phone] [facility] hypothyroidism (chief complaint)Chron ic pain (chief complaint)anxie ty (chief complaint) Hypothyroidism Other and unspecified hyperlipidemia CAD, [place] 3 Gaston Dong. [address], [place], [place], [address] , [place]. [phone] Referring Provider: Franky Dunham [address], [place], [place], [address]. tel:[phone] OFFICE/OUTPA TIENT VISIT, [facility], [address], [place], [place], [address], [place] tel:[phone] [facility] chronic pain (chief complaint)anxie ty (chief complaint) CHRONIC PAIN NECHypothyroid ismOther and unspecified hyperlipidemia 3 Gaston Dong. [address], [place], [place], [address] , [place]. [phone] Referring Provider: Franky Dunham [address], [place], [place], [address]. tel:[phone] OFFICE/OUTPA TIENT VISIT, [facility], [address], [place], [place], [address], [place] tel:[phone] [facility] Hypothyroidism (chief complaint)CAD (chief complaint)chron ic pain (chief complaint) Hypothyroidism CAD, [place] VesselCHRONIC PAIN NEC 3 Gaston Dong. [address], [place], [place], [address] , [place]. [phone] Referring Provider: Franky Dunham [address], [place], [place], [address]. tel:[phone] OFFICE/OUTPA TIENT VISIT, [facility] [facility], [address], [place], [place], [address], [place] tel:[phone] [facility] CAD (chief complaint)chron ic pain (chief complaint)anxie ty (chief complaint) CAD, [place] VesselCHRONIC PAIN NECInsomnia, Other 3 Gaston Dong. [address], [place], [place], [address] , [place]. tel:[phone] Referring Provider: Iker Feldman, [address], [place], [place], [address]. tel:[phone] OFFICE/OUTPA TIENT VISIT, [facility], [address], [place], [place], [address], [place] [phone] [facility] CAD (chief complaint)Chron ic pain (chief complaint)anxie ty (chief complaint) CAD, [place] VesselCHRONIC PAIN NECHypothyroid ism Bebeto-0 3 Gaston Dong. [address], [place], [place], [address] , [place]. tel:[phone] Referring Provider: Franky Dunham [address], [place], [place], [address]. tel:[phone] OFFICE/OUTPA TIENT VISIT, [facility], [address], [place], [place], [address], [place] [phone] [facility] chronic pain (chief complaint)anxie ty (chief complaint)Hypot hyroidism (chief complaint) Hypothyroidism CHRONIC PAIN NEC 0 3 Gaston Dong[address], [place], [place], [address] , [place]. tel:[phone] Referring Provider: Iker Feldman, [address], [place], [place], [address]. tel:[phone] OFFICE/OUTPA TIENT VISIT, [facility], [address], [place], [place], [address], [place] [phone] [facility] chornic pain (chief complaint)Anxie ty. (chief complaint)hypot hyroidism (chief complaint) Hypothyroidism CHRONIC PAIN NECRESTLESS LEGS SYNDROME Jun-0 3 G[address]. [address], [place], [place], [address] , [place]. tel:[phone] Referring Provider: Franky Dunhma [address], [place], [place], [address]. tel:[phone] OFFICE/OUTPA TIENT VISIT, [facility], [address], [place], [place], [address], [place] tel:[phone] [facility] chronic pain (chief complaint)viral (chief complaint)Anxie ty (chief complaint) Viral Infection, UnspecifiedCHR ONIC PAIN NECHypothyroid ism 3 Gaston Dong[address], [place], [place], [address] , [place]. tel:[phone] Referring Provider: Iker Feldman, [address], [place], [place], [address]. tel:[phone] OFFICE/OUTPA TIENT VISIT, [facility], [address], [place], [place], [address], [place] tel:[phone] [facility] chronic pain (chief complaint)Anxie ty (chief complaint)hypot hyroidism (chief complaint)ED (chief complaint) Hypothyroidism CHRONIC PAIN NECErectile Dysfunction 3 Gaston Dong. [address], [place], [place], [address] , [place]. [phone] Referring Provider: [address], [place], [place], [address]. tel:[phone] OFFICE/OUTPA TIENT VISIT, [facility], [address], [place], [place], [address], [place] tel:[phone] [facility] hypothyroidism (chief complaint)chron ic pain (chief complaint) CHRONIC PAIN NECHypothyroid ismRESTLESS LEGS SYNDROME 3 Gaston Dong. [address], [place], [place], [address] , [place]. tel:[phone] Referring Provider: Franky Dunham [address], [place], [place], [address]. tel:[phone] OFFICE/OUTPA TIENT VISIT, [facility], [address], [place], [place], [address], [place] tel:[phone] [facility] chronic pain (chief complaint)restl ess leg syndrome (chief complaint)anxie ty (chief complaint) CHRONIC PAIN NECRESTLESS LEGS SYNDROME 5 2 [address], [place], [place], [address] , [place]. tel:[phone] Referring Provider: Iker Feldman, [address], [place], [place], [address]. tel:[phone] OFFICE/OUTPA TIENT VISIT, [facility], [address], [place], [place], [address], [place] tel:[phone] [facility] chronic pain (chief complaint)restl ess leg (chief complaint) RESTLESS LEGS SYNDROMECHRONI C PAIN NEC 2 Gaston Dong. [address], [place], [place], [address] , [place]. [phone] Referring Provider: Franky Dunham [facility] [place], [address]. tel:[phone] OFFICE/OUTPA TIENT VISIT, [facility], [address], [place], [place], [address], [place] tel:[phone] [facility] chornic pain (chief complaint)anxie ty (chief complaint)insom alverto (chief complaint) Insomnia, OtherCHRONIC PAIN NECRESTLESS LEGS SYNDROME 0 2 [address] [facility], [place], [place], [address] , [place]. tel: [phone] Referring Provider: Franky Dunham [facility] A, [place], [place], [address]. tel:[phone] Family History Family Member Type Diagnosis Age At Onset Father Problem (finding) Cancer - colon CA Mother Problem (finding) Alive and well Brother Problem (finding) Coronary artery disease Brother Problem (finding) Other Payers Payer name Insurance type Covered libertarian ID Authoriza ticlaudette(s) [facility] [id number] Social History Type Description Quantity Date Captured [...] ordered Referral Referred To: Suzanne Beckham [address] [place], [place] [id number] Ordered: Referrals: Allopathic & Osteopathic Physicians : Urology. Suzanne Beckham. 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 Pt takes [...] per day Pt denies any worsening sob pain Pt has chronic r ight ankle [...] well. 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 Pt denies any hemoptysis, worsening [...] Pt doing ok with xanax qhs PRN CAD Pt has CAD. Pt t akes [...] chill, flank pain Pt has normal UO pain Pt has chronic r ight ankle [...] doing ok with xanax qhs PRN bladder tumor1 Pt has bladder t umor s/p removal by urology recently and he developed UTI afterward and he went to ER and received IV abx and he is doing ok now Pt also has right renal cancer which was just discovered and he will go local treatment by urology soon .Pt denies any flank pain thyroid1 Pt has hypothyro idism. Pt takes synthroid Pt denies any dysphagia or neck pain. CAD1 Pt has CAD with stent. Pt denies any chest pain, sob. Pt takes plavix and ASA. Pt has HLP. Pt takes plavix also. bladder CA Pt has bladder C A Pt denies any urinary symptoms Pt is seeing urology and he has recurrence of bladder neoplasm and he will have surgery soon tobacco Pt has 55 pack y ear tobacco smoking Pt has COPD Pt uses inhalers Pt denies any hemoptysis, worsening sob or cough Pt had LDCT done and is ok pain Pt has chronic r [...] sob or cough Pt needs LDCT bladder CA Pt has bladder C A Pt supposes to [facility] urology but his cezar was again canceled. Pt did call urology at [facility] who he used to see and they did get a new urologist and he has cezar with new urologist on 03/16/21. pt denies any urinary symptoms or blood in urine GERD1 Pt has cervantes. Pt had EGD 2019 and colonoscopy 2015. He supposes to see GI last year but cezar was canceled. He has not contacted GI yet pain Pt has chronic r ight [...] A. Pt was referred to urology of [facility] and he tried to call for [...] per week Pt denies any acute sob pain Pt has chronic r ight ankle [...] Pt doing ok with xanax qhs PRN renal Pt recently had some taco and [...] his wbc were ok also upon discharge pain1 Pt has chronic r ight ankle [...] Pt needs ventolin refilled .Pt still smoking physical Pt needs annual physical. Pt has [...] lipitor and his lipid profile is ok. pain Pt has chronic r ight ankle [...] Pt denies any dysphagia or neck pain CAD1 Pt has CAD with stent. 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 Pt doing ok ,Pt denies any abd pain bladder1 Pt has bladder t umor .Pt is being treated by urology. Pt states that he just had another cysto and was told clean ,Pt denies any hematuria HTn Pt has HTN Pt ta kes lisinopril and coreg ,Pt doing ok pt denies any chest pain. His BP is borderline. he denies any headache pain1 Pt has chronic r ight ankle pain Pt has arthritis Pt failed NSAID and ultram pt takes norco PRn for pain and doing ok anxiety1 Pt has chronic a nxiety and insomnia. Pt takes xanax qhs PRn and doing ok, Pt denies any depression or any suicidal thought. Pt denies any crying spells Pt doing ok with xanax qhs PRN copd Pt has COPD Pt s mokes still. Pt uses incruse Pt uses albuterol 1-2 per day Pt denies any hemoptysis, worsening sob or cough Barrett1 Pt takes omepraz ole. Pt has cezar for EGD net month CAD pt has CAD with stent. Pt denies any chest pain Pt just saw his triage technician and was cleared for another year. anxiety1 [...] Pt also still smoking Pt needs LDCT. bladder tumor1 Pt has recurrent bladder tumor and he just underwent resection recently. Pt will get mitomycin weekly for 6 weeks starting next week .Pt did have some urinary symptoms which resolved currently. Pt states that he did notice some blood clot from urination which also resolved. chronic pain Pt has chronic r ight [...] Pt denies any loss of bladder control chronci pain1 Pt has chronic r ight [...] any myalgia. Pt denies any chest pain lung Pt needs lung CA screening. Pt still smoking. Pt denies any coughing or hemoptysis chronic pain1 Pt has chronic a nkle [...] and he is seeing Dr. Junior in [place] and he will have the mass removed [...] Evaristo braun who is a urologist in [facility] who did the cysto and he told me the renal lesion is almost 100% sure a benign cyst. He did take the Ct to his radiologist over [facility] However, he is not in network with [...] 1 Pt just seen uro logy in [facility]. He will do cystoscopy. pt has not done MRi yet kidney1 Pt recently had CT of chest/abd/pelvis. There is a lesion on left kidney and also bladder suspicious for malignancy. Pt denies any pain. Pt denies any urinary symptoms chronic pain Pt has chronic r ight ankle pain Pt has history of fracture Pt failed NSAID Pt denies any worsening pain insomnia1 Pt has insomnia Pt takes xanax [...] uses ventolin. Pt denies any acute sob chronic pain Pt has chronic r ight ankle pain due to history of fracture and arthritis. Pt doing ok with norco PRN for pain. Pt failed NSAID and also ultram and codeine insomnia1 Pt has chronic i nsomnia Pt takes xanax qhs prn. Pt denies any snoring or any trouble with breathing at night tobacco1 Pt has 40 pack y ear [...] homicidal thought. Pt deneis any crying spells tobacco1 Pt has 40 pack y ear tobacco. Pt has mild COPD. Pt uses incurse and venotlin PRN. Pt rarely uses venotlin. Pt denies any acute sob Cervantes Pt has helen cardona. Pt takes omeprzole. pt deneis any GERd Pt just had EGD done last month and was told nothing changed chronic pain1 Pt has chronic r ight [...] to schedule for CT of chest but [facility] will not do it. Pt denies any [...] sees cardiology. Pt denies any chest pain. HLP Pt takes lipitor . Pt denies any myalgia. Pt is on low fat and low carb diet hypothyroidism Pt has hypothyro idism. Pt takes synthroid. Pt denies any chest pain or fatigue chronic pain Pt has chronic r ight ankle pain and aniety Pt takes norco and xanax. Pt doing ok. Pt denies any worsening pain. Pt denies any suicidal or homicdial thought Pt denies any depression chronic pain Pt has chronic r ight [...] Surveillance and Counseling Quit smoking Related to Raymond tt's esophagus without dysplasia Prescribed Activity and Exercise Education Related to Dietary Surveillance and Counseling Prescribed Diet Educ ation/Lifestyle Education Regarding Diet Related to Dietary Surveillance and Counseling Quit smoking Related to Insom alverto Prescribed Activity and Exercise Education Related to Dietary Surveillance and Counseling Prescribed Diet Educ ation/Lifestyle Education Regarding Diet Related to Dietary Surveillance and Counseling Quit smoking Related to Raymond tt's esophagus without dysplasia Quit smoking Related to Insom alverto Quit smoking Related to Chron ic pain syndrome Increase physical activity Relat ed to Insomnia Quit smoking Related to Insom alverto Quit smoking Related to Chron ic pain syndrome Quit smoking Related to Encou nter for general adult medical exam w abnormal findings Prescribed Activity and Exercise Education Related to Dietary Surveillance and Counseling Prescribed Diet Educ ation/Lifestyle Education Regarding Diet Related to Dietary Surveillance and Counseling exercise Related to CAD, [place] V[place] Assessments Type Assessment Date assessment Centrilobular emphysema 025 assessment Chronic pain syndrome assessment Malignant neoplasm of bladder, u nspecified assessment Hypothyroidism assessment Mixed hyperlipidemia assessment Encounter for general adult medi ezio exam w abnormal findings assessment 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
--- OUTSIDE RECORDS SUMMARY | 2024-08-25 10:03 | XMS_ITS | Clinical Summary ---
Author Organization [facility] Address [address] [place] [address] Phone Care Team Providers Care Flavor Maker Name Role Phone Iker Feldman Primary Care Provider [phone] Juan Gresham MD Unavailable Hemant Delgado MD [...] minutes as needed. Active ergocalciferol (VITAMIN D) 86456 UNIT Capsule Take 1 Capsule by mouth. 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 Pulse 54 01/19/2022 8:53 AM AUTO MECHANICS TEACHER Temperature 36.4 C (97.6 F) 01/19/2022 8:53 AM AUTO MECHANICS TEACHER Respiratory Rate 18 01/19/2022 8:53 AM AUTO MECHANICS TEACHER Oxygen Saturation 98% 01/19/2022 8:53 AM AUTO MECHANICS TEACHER Inhaled Oxygen Concentration - - Weight 72.2 kg (159 lb 3.2 oz) 01/19/2022 8:53 A M AUTO MECHANICS TEACHER Height 174 cm (5' 8.5) 09/16/2021 11:49 [...] this topic Medical Devices Implanted Type Area Computer Networker Device Identifier Shelf Expiration Date Model / Serial / Lot Stent Ureteral 6fr 2.1fr 26cm 2 Pigtail Curve 2 Durometer Taper Tip Loprfl Graduated Polaris Ultra - [id number] Implanted:Qty : 1 on 03/19/2018 by Viviana Junior MD at [facility] IMPLANT Right: Ureter [employer] 10/03/2020 [id number] 0 / [id number] 0 / [id number] Stent Ureteral 6fr 2.1fr 24cm 2 Pigtail Curve 2 Durometer Taper Tip Loprfl Graduated Polaris Ultra - [id number] Implanted:Qty : 1 on 04/29/2021 by Hemant Delgado MD at [facility] IMPLANT Left: Ureter [employer] 01/12/2024 [id number] 0 / [id number] 0 / [id number] Stent Ureteral 6fr 2.1fr 24cm 2 Pigtail Curve 2 Durometer Taper Tip Loprfl Graduated Polaris Ultra - [id number] Implanted:Qty : 1 on 05/20/2021 by Hemant Delgado MD at [facility] IMPLANT Left: Ureter [employer] 02/04/2024 [id number] 0 / [id number] / [id number] Stent Ureteral 6fr 2.1fr 24cm 2 Pigtail Curve 2 Durometer Taper Tip Loprfl Graduated Polaris Ultra - [id number] Implanted:Qty : 1 on 05/20/2021 by Hemant Delgado MD at [facility] IMPLANT Right: Ureter [employer] 02/04/2024 [id number] 0 / [id number] 0 / [id number] Stent Ureteral 6fr 2.1fr 28cm 2 Pigtail Curve 2 Durometer Taper Tip Loprfl Graduated Polaris Ultra - [id number] Implanted:Qty : 1 on 09/09/2021 by Hemant Delgado MD at [facility] IMPLANT Right: Ureter [employer] 02/08/2024 [id number] 0 / [id number] 0 / [id number] Explanted Type Area Computer Networker Device Identifier Shelf Expiration Date Model / Serial / Lot Stent Ureteral 6fr 2.1fr 24cm 2 Pigtail Curve 2 Durometer Taper Tip Loprfl Graduated SWYF Ultra - [id number] Implanted:Qty : 1 on 04/29/2021 by [facility] at [facility] Explanted:Qty : 1 on 05/20/2021 by [facility] IMPLANT Right: Ureter [employer] 01/12/2024 [id number] 0 / [id number] 0 / [id number] Procedures Procedure Name Priority Date/Time Associated Diagnosis [...] Documents on File Type Date Recorded Patient Structurer Expl anation Other Advance Directive 09/21/2021 3:35 [...] Medical Clearance fo r surgery Care Teams Flavor Maker Relationship Specialty Start Date End Date Feldman [address] [place] [address] PCP - General Family Medicine 12/05/17 Juan Gresham MD [address] [facility] [address] [place] [address] Cardiovascular Disease - Cardiology 12/05/17 Hemant Delgado MD [address] [facility] [address] [place] [address] Consulting Physician Urology 01/19/22
--- OUTSIDE RECORDS SUMMARY | 2024-08-25 10:03 | XMS_ITS | Encounter Summary ---
Author Organization [facility] Address [address] [place] [address] Phone Care Team Providers Care Steward/Stewardess Dining Room Name Role Phone Iker Feldman Primary Care Provider [phone] Juan Gresham MD Unavailable Hemant Delgado MD Unavailable Encounter Details Date Type Department Care Team (Late st Contact Info) Description 03/29/2021 [facility] [address] [place] [id number] Hemant Delgado MD [address] [address] Social History Tobacco Use Types Packs/Day Years [...] COVID-19? No / Unsure 03/29/2021 2:12 PM ESOL INSTRUCTOR documented as of this encounter Plan of Treatment Not on file documented as of this encounter Visit Diagnoses Not on filedocumented in this encounter Care Teams Steward/Stewardess Dining Room Relationship Specialty Start Date End Date Iker Feldman [address] [facility] [place] [address] PCP - General Family Medicine 12/05/17 Juna Gresham MD [address] [facility] [address] [place] [address] Cardiovascular Disease - Cardiology 12/05/17 Hemant Delgado MD [address]2 [facility] [address] [place] [address] Consulting Physician Urology 01/19/22 documented as of this encounter
[2024-08-25 10:12] LABS: Basophils Percent Auto 0.5 % (0.2-1.2); Eosinophils Absolute Auto 0.1 K/mm3 (0-0.3); Eosinophils Percent Auto 1.4 % (0-4.4); Hematocrit 38.8 % (42.0-52.0); Immature Granulocyte Absolute 0.02 K/mm3 (0.00-0.031); Immature Granulocyte Percent A 0.3 % (0-0.5); Lymphocytes Absolute Auto 1.05 K/mm3 (0.9-3.2); Lymphocytes Percent Auto 16.8 % (18.3-44.2); Mean Corpuscular HGB Conc 33.5 g/dl (32-36); Mean Corpuscular Hemoglobin 33.2 pg (26-34); Mean Corpuscular Volume 99.2 fl (80-100); Mean Platelet Volume 9.2 fl (7.4-10.4); Monocytes Absolute Auto 0.8 K/mm3 (0.1-0.6); Monocytes Percent Auto 13.3 % (2.6-8.5); Neutrophils Absolute Auto 4.2 K/mm3 (1.3-6.7); Neutrophils Percent Auto 67.7 % (45.5-73.1); Platelet Count Result 250 k/mm3 (150-375); Red Blood Count 3.91 M/mm3 (4.6-6.20); Red Cell Distribution Width 12.2 % (11.5-14.5); White Blood Count 6.3 K/mm3 (4.5-10.0)
[2024-08-25 10:45] LABS: Vitamin D 25 Hydroxy 70.7 ng/mL
[2024-08-25 11:43] LABS: Sodium 139 mmol/L (137-145)
[2024-08-25 11:44] LABS: Alanine Aminotransferase 18 U/L (6-50); Albumin Level 3.7 g/dL (3.5-5.1); Alkaline Phosphatase 103 U/L (38-126); Anion Gap 4 mmol/L (4-12); Aspartate Amino Transferase 32 U/L (17-59); Bilirubin,Total 0.4 mg/dL (0.2-1.3); Blood Urea Nitrogen 12 mg/dL (9-20); Calcium 9.1 mg/dL (8.4-10.2); Carbon Dioxide 28 mmol/L (22-30); Chloride 107 mmol/L (98-107); Cholesterol 110 mg/dL (0-200); Estimated Glomerular Filt Rate > 60; Glucose 104 mg/dL (65-110); HDL Direct 38 mg/dL; Magnesium 2.1 mg/dL (1.6-2.3); Phosphorus 2.5 mg/dL (2.5-4.5); Potassium 4.4 mmol/L (3.4-5.0); Total Protein 6.9 g/dL (6.3-8.2); Triglycerides 50 mg/dL (<150)
[2024-08-25 11:56] LABS: LDL Cholesterol Direct 45 mg/dL
[2024-08-25 12:13] LABS: Prostate Specific Antigen 0.8 ng/mL (< OR = 4.0)
== END 2024-08-25 09:26 | disposition home or self-care (01) ==
PROVIDERS: PCP Emergency Medicine; Visit Provider Emergency Medicine
DX: C67.9 Malignant neoplasm of bladder, unspecified (principal); E03.9 Hypothyroidism, unspecified; E55.9 Vitamin D deficiency, unspecified; E78.2 Mixed hyperlipidemia; G89.4 Chronic pain syndrome; I25.10 Atherosclerotic heart disease of native coronary artery without angina pectoris; J43.2 Centrilobular emphysema; K21.9 Gastro-esophageal reflux disease without esophagitis; K25.7 Chronic gastric ulcer without hemorrhage or perforation; N40.1 Benign prostatic hyperplasia with lower urinary tract symptoms; N40.0 Benign prostatic hyperplasia without lower urinary tract symptoms; Z12.5 Encounter for screening for malignant neoplasm of prostate; Z79.899 Other long term (current) drug therapy
CPT/HCPCS: 36415; 80061; 80069; 80076; 82306; 83735; 84153; 84443; 85025; G0103

== ENCOUNTER 2024-08-28 01:59 | Day surgery (SDC) | payer MEDICARE, MEDICAID, SELFPAY ==
--- NOTE | 2024-08-20 14:13 | PC.NURSE ---
Report to the Outpatient Waiting Room, entrance under the green pavilion located off [facility], at time __7:30 AM on date __08/28/24 . Planned Procedure Time: _9:30 AM .? Time changes happen often and if your time is changed the preop area will call you the afternoon before. - You and your visitor will be asked to self-screen and do not enter if you have any COVID symptoms. Please call surgeon if you need to reschedule. - A mask is optional within the hospital at this time. Patients may have clear liquids (water, carbonated beverages, clear teas, apple juice) until 3 hours prior to surgery ( 6:30 AM) with a maximum of 20 ounces. - No food from midnight until time of surgery and no smoking, or chewing tobacco (or any form of nicotine). No chewing gum, candy or mints. Take only the following medications with a SIP of water on the morning of surgery: __INCRUSES INHALER,XANAX,CARVEDILOL,HYDROCODONE IF NEEDED_,LEVOTHYROXINE, DO NOT STOP ANY OF YOUR OTHER PRESCRIPTION MEDICATIONS PRIOR TO SURGERY EXCEPT THE FOLLOWING Hold all vitamins and supplements for 3 days per anesthesiologist.LAST DOSE 08/24/24 Medications to discontinue per physician ___WIFE STATES HOLD ASPIRIN AND PLAVIX __7 DAYS PRE OP PER DR DILLON Date to take last dose 08/20/24 Please no make-up, nail greenlandic, hairspray, perfume, deodorant, or body powder the day of surgery.? No jewelry (including any body piercings) or valuables the day of surgery, leave them at home.? Please take a shower or bath the night before, or the morning of, surgery with an antibacterial soap.? Wear comfortable, loose fitting clothing.? Children are encouraged to wear pajamas. - Jewelry must be removed prior to entering the operating room.? Rings and piercings that are not removed may be cut off. - The hospital will not accept responsibility for valuables.? - Please leave all valuables, including medications, at home the day of surgery. If you are going home after surgery, a licensed driver manager must drive you home.? - NO public transportation without another adult if you receive anesthesia. - We recommend that an adult stay with you for 24 hours following discharge. - We also recommend that you do not drive, make important decision, drink alcoholic beverages, or take any drugs that were not prescribed by your health care provider for at least 24 hours after your discharge time. For Pediatric surgeries, we recommend two adults accompany the child home. Follow any additional instructions given to you from your surgeon. Telephone instructions given to ___WIFE PAT and asked if any additional questions and then verbalized understanding. Patient advised to call surgeon office or pre surgery nurse liaison [phone] if any additional questions.
[2024-08-20 14:27] VITALS: BMI 22.0
--- NOTE | 2024-08-21 15:19 | P.HP_ITS ---
History of Present Illness History of Present Illness Consent: Risks, benefits, and alternatives have been discussed and questions answered. Patient agrees to proceed with procedure. Chief complaint: Bladder Ca Narrative: Bhanu Álvarez is a 69 year old male with history right UTUC and bladder tumors. Recent surveillance cysto. shows small recurrent papillary neoplasm in bladder. Review of Systems Review of Systems: All systems reviewed & are unremarkable except as noted in HPI and below PMFSH Past Medical History Medical History Anxiety and depression Bladder cancer Chronic obstructive pulmonary disease Continuous tobacco abuse Coronary artery disease Essential hypertension Gastroesophageal reflux disease Hepatitis C virus infection resolved after antiviral drug therapy Hyperlipidemia Hypothyroidism Non-cardiac chest pain Restless leg syndrome ST elevation myocardial infarction (STEMI) (07/2012) Surgical History Surgical History Abnormal cystoscopy x8 History of cardiac catheterization (08/01/12) Aspiration thrombectomy, PTCA, stent x2 in overlapping fashion in major diagonal branch. Per Dr. Gresham. History of cystoscopy Right eye trauma Family History Family History Mother Acute myocardial infarction Leukemia Father Colon cancer Sibling Heart problem Social History Social History Social History: Surrogate medical decision maker: Jodee Álvarez, spouse. Code status: Full code. Smoking packs per day: 1 Smoking cigarettes per day: 20.0 Years smoked: 30 Smoking pack-years: 30.00 Smoking status: Former smoker Tobacco type: cigarettes, pipe and cigars Smoking end date: 03/12/94 Additional smoking assessment comments: QUIT GIGARRETTES 2002, SMOKES 2 CIGARS/DAY & PIPE WHEN OUT OF CIGARS Alcohol intake: current Drinks per week: 2 Alcohol use details: BEER Substance use: current Substance use type: marijuana Other substance usage details: 3 X WK Last use: 12/25/22 Lack of Transportation: No Lack of Food: Never True Current Housing: I Have Housing Concerned About Future Housing: No Difficulty Paying Gas/Electric Bills: No Difficulty Paying for Meds: No Currently Unemployed: No Education: High School Diploma/GED Difficulty w/ Childcare or Family Care: No Living arrangements: with family Spiritual care concerns: No Meds Home Medications and Allergies Home Medications ?Medication ?Instructions ?Recorded ?Confirmed ?Type alprazolam 1 mg tablet (Xanax) 1 mg PO DAILY PRN Anxiety 09/14/20 08/20/24 History atorvastatin 40 mg tablet (Lipitor) 40 mg PO DAILY 09/14/20 08/20/24 History calcium phosphate,dibasic 77 50,000 tablet PO [id number] 09/14/20 08/20/24 History mg-vitamin D3 400 unit tablet carvedilol 3.125 mg tablet (Coreg) 3.125 mg PO BID 09/14/20 08/20/24 History clopidogrel 75 mg tablet (Plavix) 75 mg PO DAILY 09/14/20 08/20/24 History hydrocodone 10 mg-acetaminophen 1 tablet PO HS PRN Pain 09/14/20 08/20/24 History 325 mg tablet levothyroxine 88 mcg tablet 88 mcg PO DAILY 09/14/20 08/20/24 History (Synthroid) lisinopril 10 mg tablet (Zestril) 10 mg PO DAILY 09/14/20 08/20/24 History albuterol sulfate 90 mcg/actuation 2 puff inhalation QID PRN 05/03/21 08/20/24 History aerosol inhaler Shortness Of Breath nitroglycerin 0.4 mg sublingual 0.4 mg sublingual Q5-15M PRN Chest 05/03/21 08/20/24 History tablet Pain umeclidinium 62.5 mcg/actuation 1 inh inhalation DAILY 05/03/21 08/20/24 History blister powder for inhalation (Incruse Ellipta) aspirin 81 mg chewable tablet 81 mg PO DAILY 07/28/22 08/20/24 History hydrocodone 5 mg-acetaminophen 325 1 - 2 tablet PO Q6H PRN pain #30 09/22/22 08/20/24 Rx mg tablet tabs cephalexin 500 mg capsule 500 mg PO Q8H #9 caps 01/04/23 08/20/24 Rx hydrocodone 5 mg-acetaminophen 325 1 - 2 tablet PO Q6H PRN pain #20 01/04/23 08/20/24 Rx mg tablet tabs pantoprazole 40 mg tablet,delayed 20 mg PO QAM 08/20/24 08/20/24 History release Allergies Allergy/AdvReac Type Severity Reaction Status Date / Time propoxyphene Allergy Intermediate Hives Verified 08/20/24 14:24 Exam Const: General: no acute distress Resp: Effort & Inspection: normal respiratory effort GI: Inspection: non-distended GI Palp: No abdominal tenderness and No Guarding due to palpation present (GI) Auscultation: normal bowel sounds Assessment and Plan Assessment and plan (1) Cancer of right renal pelvis: Code(s): C65.1 - Malignant neoplasm of right renal pelvis Status: Acute (2) Cancer of overlapping sites of bladder: Code(s): C67.8 - Malignant neoplasm of overlapping sites of bladder Status: Acute Plan * TURBT, cystoscopy, bilat. retrograde pyelogram, possible right ureteroscopy, gemcitabine instillation.
[2024-08-28] VITALS (10 sets, daily range): BP systolic 126–165; BP diastolic 61–88; PULSE 49–82; RESP 16–18; TEMP 36.1–36.3; O2SAT 98–100
--- NOTE | ~2024-08-28 | XR_ITS ---
INTRAOPERATIVE FLUOROSCOPY: CLINICAL HISTORY: 69 years old Male; BILATERAL RETROGRADE PROCEDURE COMMENTS: Limited intraoperative fluoroscopy of the retroperitoneum was performed. CUMULATIVE DOSE: 14 mGy FLUOROSCOPY TIME: 53 seconds FINDINGS/IMPRESSION: Please refer to operative note for further details. Reviewed, dictated and finalized at location A.
--- OUTSIDE RECORDS SUMMARY | 2024-08-28 02:12 | XMS_ITS | Encounter Summary ---
Author Organization [facility] Address [address] [place] [address] Phone Care Team Providers Care Chief Deputy Coroner Name Role Phone Iker Feldman Primary Care Provider [phone] Juan Gresham MD Unavailable Hemant Delgado MD Unavailable Reason for Referral * Radiology Services (Routine) - Closed Specialty Diagnoses / Procedures Referred By Contac t Referred To Contact Radiology Diagnoses Pre-op testing Procedures EKG 12 LEAD Laurent Abebe APRN, CRNA Referral ID Status Reason Start Date Expiration Date Visits Re quested Visits Authorized [id number] Closed 03/29/2021 1 1 IFYING ATTENDANT Encounter Details Date Type Department Care Team (Latest Contact Info) Description 03/29/2021 Transcribe Orders [facility] Preop/Pacu II 1 [place] [id number] Laurent Abebe APRN, CRNA Pre-op testing (Primary [...] COVID-19? No / Unsure 03/29/2021 2:12 PM RECTIFYING ATTENDANT documented as of this encounter Plan of Treatment Not on file documented as of this encounter Results * HEMOGLOBIN & HEMATOCRIT (H&H) (04/25/2021 7:56 AM RECTIFYING ATTENDANT) HEMOGLOBIN (HGB) 14.7 13.0 - 16.5 g/dL 04/25/2021 8:12 AM RECTIFYING ATTENDANT [facility] HEM[facility] (HCT) 44.9 38.0 - 50.0 % 04/25/2021 8:12 AM RECTIFYING ATTENDANT [facility] Blood Venipuncture / Unknown 04/25/2021 7:56 AM RECTIFYING ATTENDANT 04/25/2021 8:07 AM RECTIFYING ATTENDANT us Laurent Abebe APRN, CRNA HEMATOLOGY ORDERAB LES Final Result [facility] [address] [place] [address] * (ABNORMAL) BASIC METABOLIC PANEL W/ CALCIUM TOTAL (04/25/2021 7:56 AM RECTIFYING ATTENDANT) SODIUM 133(L) 136 - 144 mmol/L 04/25/2021 8:32 AM RECTIFYING ATTENDANT [facility] POTASSIUM 4.6 3.5 - 5.1 mmol/L 04/25/2021 8:32 AM RECTIFYING ATTENDANT [facility] CHLORIDE 99(L) 100 - 110 mmol/L 04/25/2021 8:32 AM RECTIFYING ATTENDANT [facility] CO2, VENOUS 27 22 - 32 mmol/L 04/25/2021 8:32 AM RECTIFYING ATTENDANT [facility] ANION GAP 11.6 8.0 - 20.0 mmol/L 04/25/2021 8:32 AM [facility] GLUCOSE 111(H) 70 - 99 mg/dL 04/25/2021 8:32 AM [facility] BUN 11 8 - 23 mg/dL 04/25/2021 8:32 AM [facility] CREATININE, BLOOD 0.90 0.80 - 1.30 mg/dL 04/25/2021 8:32 AM [facility] BUN/CREATININE RATIO 12 12 - 20 ratio 04/25/2021 8:32 AM [facility] CALCIUM 9.4 8.9 - 10.3 mg/dL 04/25/2021 8:32 AM [facility] GFR, EST. NONAFRICAN >60 >=60 04/25/2021 8:32 AM [facility] GFR, EST. >60 >=60 04/25/2021 8:32 AM [facility] Comment: Creatinine Clearance is the preferred criteria for selecting drug dose adjustments in renally impaired patients. The GFR is provided as additional pertinent clinical information. GFR is reported in mL/min/1.73 sq m. IS THE PATIENT REQUIRED TO BE FASTING? No 04/25/2021 8:32 AM [facility] Blood Venipuncture / Unknown 04/25/2021 7:56 AM RECTIFYING ATTENDANT 04/25/2021 8:07 AM [facility] us Laurent Abebe RADIOLOGICAL TECHNICIAN, ATHLETIC EVENTS SCORER CHEMISTRY ORDERABL ES Final Result [facility] [address] [place] [address] * EKG 12 LEAD (04/25/2021 7:43 AM [facility]) Ventricular Rate BPM EXTERNAL EKG Atrial Rate BPM EXTERNAL EKG P-R Interval 194 ms EXTERNAL EKG QRS Duration 100 ms EXTERNAL EKG Q-T Duration 472 ms EXTERNAL EKG QTC CALCULATION 427 ms EXTERNAL EKG P [place] 79 degrees EXTERNAL EKG R [place] 49 degrees EXTERNAL EKG T [place] 67 degrees EXTERNAL EKG 04/25/2021 7:43 AM RECTIFYING ATTENDANT Impressions EXTERNAL EKG - 04/25/2021 9:08 AM RECTIFYING ATTENDANT Sinus bradycardia Abnormal R wave progression (?ASMI or lead location) Comparison Summary: Significant changes Summary: Abnormal ECG Compared with:03/27/2020 9:11 AM; 03/17/2019 9:55 AM No significant changes noted Confirmed by Lauren Mahmood [id number] on 04/25/2021 9:08:06 AM Narrative Procedure Note Sofia Aguilar MD - 04/25/2021 IMPRESSION: Sinus bradycardia Abnormal R wave progression (?ASMI or lead location) Comparison Summary: Significant changes Summary: Abnormal ECG Compared with:03/27/2020 9:11 AM; 03/17/2019 9:55 AM No significant changes noted Confirmed by Lauern Mahmood [id number] on 04/25/2021 9:08:06 AM us Laurent Nathanatzke RADIOLOGICAL TECHNICIAN, ATHLETIC EVENTS SCORER IMG ECG ORDERABLES Final Result Performing Organization Address City/State/[facility] Co de Phone Number EXTERNAL EKG documented in this encounter Visit Diagnoses Diagnosis Pre-op testing- Primary Preoperative examination, unspecified Pre-op testing Preoperative examination, unspecified documented in this encounter Care Teams Chief Deputy Coroner Relationship Specialty Start Date End Date Iker Feldman [address] [place] [address] PCP - General Family Medicine 12/05/17 Juan Gresham MD [address] [facility] [address] [place] [address] Cardiovascular Disease - Cardiology 12/05/17 Hemant Delgado MD [address] [facility] [address] [place] [address] Consulting Physician Urology 01/19/22 documented as of this encounter
--- OUTSIDE RECORDS SUMMARY | 2024-08-28 02:12 | XMS_ITS | Encounter Summary ---
Author Organization [facility] Address [address] [place] [address] Phone Care Team Providers Care Complaint Supervisor Name Role Phone Iker Feldman Primary Care Provider [phone] Juan Gresham MD Unavailable Hemant Delgado MD Unavailable Encounter Details Date Type Department Care Team (Late st Contact Info) Description 03/29/2021 [facility] [address] [place] [id number] Hemant Delgado MD [address] [address] Social History Tobacco Use Types Packs/Day Years [...] COVID-19? No / Unsure 03/29/2021 2:12 PM MANAGER RESPIRATORY documented as of this encounter Plan of Treatment Not on file documented as of this encounter Visit Diagnoses Not on filedocumented in this encounter Care Teams Complaint Supervisor Relationship Specialty Start Date End Date Iker Feldman [address] [facility] [place] [address] PCP - General Family Medicine 12/05/17 Juan Gresham MD [address] [facility] [address] [place] [address] Cardiovascular Disease - Cardiology 12/05/17 Hemant Delgado MD [address] [facility] [address] [place] [address] Consulting Physician Urology 01/19/22 documented as of this encounter
--- OUTSIDE RECORDS SUMMARY | 2024-08-28 02:12 | XMS_ITS | Continuity of Care Document ---
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 Role Phone Iker Feldman MD Unavailable [...] before a meal 20 MG - Active Coreg 12.5 mg tablet take 1 tablet by oral route 2 times every day with food 12.5 MG - Active Plavix 75 mg tablet take 1 tablet by oral route every day 75 MG - Active lisinopril 10 mg tablet take 1 tablet by oral route every day 10 MG - Active Lipitor 20 mg tablet take 1 Tablet by oral route every day 20 MG - Active Procedures Procedure Date PREV [...] Encounter PREV VISIT, EST, 65 & OVER [facility], [address], [place], [place], [address], [place] tel:[phone] [facility] Medicine physical (chief complaint) Centrilobular emphysemaChron ic pain syndromeMalign ant neoplasm of bladder, unspecifiedHyp othyroidismMix ed hyperlipidemia Encounter for general adult medical exam w abnormal findingsCorona ry artery disease of [place] coronary artery w/o angina pectorisGERD without esophagitis Bebeto- 5 Gaston Pickett [address], [place], [place], [address] , [place]. [phone] OFFICE/OUTPA TIENT VISIT, [facility], [address], [place], [place], [address], [place] tel:[phone] [facility] pain (chief complaint)anxie ty1 (chief complaint)COPD1 (chief complaint) Chronic pain syndromePrimar y insomniaCentri lobular emphysemaPerso nal history of nicotine dependenceMali gnant neoplasm of bladder, unspecified July- 5 Gaston Pickett [address], [place], [place], [address] , [place]. [phone] OFFICE/OUTPA TIENT VISIT, [facility], [address] [place], [address], [place] tel:[phone] [facility] pain (chief complaint)anxie ty1 (chief complaint) Chronic pain syndromePrimar y insomnia Jun-0 5 Gaston Pickett [address], [place], [place], [address] , [place]. tel:[phone] OFFICE/OUTPA TIENT VISIT, [facility], [address] [place], [address], [place] tel:[phone] [facility] pain (chief complaint)anxie ty1 (chief complaint) Chronic pain syndromePrimar y insomnia May-0 5 Gaston Dong. [address], [place], [place], [address] , [place]. tel:[phone] OFFICE/OUTPA TIENT VISIT, [facility], [address], [place], [place], [address], [place] tel:[phone] [facility] pain (chief complaint)anxie ty1 (chief complaint)COPD1 (chief complaint) Chronic pain syndromeCentri lobular emphysemaPrima ry insomnia Fe-0 5 Gaston Dong. [address], [place], [place], [address] , [place]. tel:[phone] OFFICE/OUTPA TIENT VISIT, [facility], [address], [place], [place], [address], [place] tel:[phone] [facility] pain (chief complaint)anxie ty1 (chief complaint)thyro id1 (chief complaint) Chronic pain syndromePrimar y insomniaHypoth yroidism 5 Gaston Dong. [address], [place], [place], [address] , [place]. tel:[phone] OFFICE/OUTPA TIENT VISIT, [facility], [address], [place], [place], [address], [place] tel:[phone] [facility] pain (chief complaint)anxie ty1 (chief complaint) Chronic pain syndromePrimar y insomnia 4 Gaston Dong. [address], [place], [place], [address] , [place]. tel:[phone] OFFICE/OUTPA TIENT VISIT, [facility], [address], [place], [place], [address], [place] tel:[phone] [facility] pain (chief complaint)anxie ty1 (chief complaint)COPD1 (chief complaint) Chronic pain syndromePrimar y insomniaCentri lobular emphysema 4 Gaston Dong. [address], [place], [place], [address] , [place]. tel:[phone] OFFICE/OUTPA TIENT VISIT, [facility], [address], [place], [place], [address], [place] tel:[phone] [facility] pain (chief complaint)anxie ty1 (chief complaint) Chronic pain syndromePrimar y insomnia 4 Feldman Iker. [address], [address], [place], [place], [address] , [place]. tel:[phone] OFFICE/OUTPA TIENT VISIT, [facility], [address], [place], [place], [address], [place] tel:[phone] [facility] Medicine pain (chief complaint)anxie ty1 (chief complaint) Chronic pain syndromePrimar y insomnia 4 Feldman Iker. [address], [place], [place], [address] , [place]. tel:[phone] OFFICE/OUTPA TIENT VISIT, [facility], [address], [place], [place], [address], [place] tel:[phone] [facility] pain (chief complaint)anxie ty1 (chief complaint)COPD1 (chief complaint) Centrilobular emphysemaChron ic pain syndromePrimar y insomnia 4 Feldman Iker. [address], [place], [place], [address] , [place]. tel:[phone] OFFICE/OUTPA TIENT VISIT, [facility], [address], [place], [place], [address], [place] tel:[phone] [facility] pain (chief complaint)anxie ty1 (chief complaint) Chronic pain syndromePrimar y insomnia 4 Feldman Iker. [address], [place], [place], [address] , [place]. tel:[phone] OFFICE/OUTPA TIENT VISIT, [facility], [address], [place], [place], [address], [place] tel:[phone] [facility] pain (chief complaint)anxie ty1 (chief complaint)COPD1 (chief complaint)bladd er Ca (chief complaint) Centrilobular emphysemaChron ic pain syndromePrimar y insomniaMalign ant neoplasm of bladder, unspecified Bebeto- 4 Gaston Dong. [address], [place], [address] , [place]. tel:[phone] OFFICE/OUTPA TIENT VISIT, [facility], [address], [place], [place], [address], [place] tel:[phone] [facility] pain (chief complaint)anxie ty (chief complaint)thyro id1 (chief complaint)HLP (chief complaint) Chronic pain syndromeHypoth yroidismMixed hyperlipidemia Primary insomniaCentri lobular emphysema 4 Gaston Dong. [address], [place], [place], [address] , [place]. tel:[phone] PREV VISIT, EST, 65 & OVER [facility], [address], [place], [place], [address], [place] tel:[phone] [facility] physical (chief complaint) Encounter for general adult medical exam w abnormal findingsCentri lobular emphysemaChron ic pain syndromePrimar y insomniaHypoth yroidismMalign ant neoplasm of bladder, unspecifiedGER D w/o esophagitisCor onary artery disease of [place] coronary artery w/o angina pectoris 4 Gaston Dong. [address], [place], [place], [address] , [place]. tel:[phone] OFFICE/OUTPA TIENT VISIT, [facility], [address], [place], [place], [address], [place] tel:[phone] [facility] pain (chief complaint)anxie ty1 (chief complaint) Chronic pain syndromePrimar y insomnia May- 4 Gaston Dong. [address], [place], [address] , [place]. tel:[phone] OFFICE/OUTPA TIENT VISIT, [facility], [address], [place], [place], [address], [place] tel:[phone] [facility] pain (chief complaint)anxie ty1 (chief complaint)COPD1 (chief complaint) Centrilobular emphysemaChron ic pain syndromePrimar y insomnia 4 Feldman Iker. [address], [place], [place], [address] , [place]. tel:[phone] OFFICE/OUTPA TIENT VISIT, [facility], [address], [place], [place], [address], [place] tel:[phone] [facility] pain (chief complaint)anxie y1 (chief complaint)hypot hyroidism1 (chief complaint) Hypothyroidism Chronic pain syndromePrimar y insomnia 4 Gaston Dong. [address], [place], [place], [address] , [place]. tel:[phone] OFFICE/OUTPA TIENT VISIT, [facility], [address], [place], [place], [address], [place] tel:[phone] [facility] pain (chief complaint)anxie ty1 (chief complaint) Chronic pain syndromePrimar y insomnia 3 Feldman Iker. [address], [place], [place], [address] , [place]. tel:[phone] OFFICE/OUTPA TIENT VISIT, [facility], [address], [place], [place], [address], [place] tel:[phone] [facility] pain (chief complaint)pain (chief complaint)anxie ty1 (chief complaint) Chronic pain syndromePrimar y insomnia 3 Feldman Iker. [address], [place], [place], [address] , [place]. tel:[phone] OFFICE/OUTPA TIENT VISIT, [facility], [address], [place], [place], [address], [place] tel:[phone] [facility] pain (chief complaint)anxie ty1 (chief complaint) Chronic pain syndromePrimar y insomnia 0 3 Gaston Pickett [address], [place], [place], [address] , [place]. [phone] OFFICE/OUTPA TIENT VISIT, [facility], [address], [address], [place] tel:[phone] [facility] pain (chief complaint)anxie ty1 (chief complaint)hypot hyroidism1 (chief complaint) Chronic pain syndromePrimar y insomniaHypoth yroidism 3 Gaston Pickett [address], [address] , . tel:[phone] OFFICE/OUTPA TIENT VISIT, [facility], [address] [place], [address], tel:[phone] [facility] pain (chief complaint)anxie ty1 (chief complaint) Chronic pain syndromePrimar y insomnia Nov-0 3 Gaston Pickett [address], [address] , [place]. [phone] OFFICE/OUTPA TIENT VISIT, [facility], [address] [place], [address], [place] tel:[phone] [facility] PAIN (chief complaint)anxie ty1 (chief complaint)bladd er CA1 (chief complaint) Chronic pain syndromePrimar y insomniaMalign ant neoplasm of bladder, unspecifiedAcq uired renal cystCentrilobu lar emphysema Oct- 3 Gaston Pickett [address] [place], [address] , [place]. [phone] OFFICE/OUTPA TIENT VISIT, [facility], [address] [place], [address], [place] tel:[phone] [facility] pain (chief complaint)anxie ty1 (chief complaint)GERD1 (chief complaint) Cervantes's esophagus without dysplasiaChron ic pain syndromePrimar y insomnia 3 Gaston Pickett [address], [place], [place], [address] , [place]. tel:[phone] OFFICE/OUTPA TIENT VISIT, [facility], [address], [place], [place], [address], [place] tel:[phone] [facility] pain (chief complaint)anxie ty1 (chief complaint)hemae mesis1 (chief complaint)kidne y tumor1 (chief complaint) HematemesisChr onic pain syndromePrimar y insomniaMalign ant neoplasm of bladder, unspecified 3 Gaston Pickett [address], [address], [place], [place], [address] , [place]. [phone] OFFICE/OUTPA TIENT VISIT, [facility], [address], [place], [place], [address], [place] tel:[phone] [facility] hematemesis1 (chief complaint) HematemesisBar rett's esophagus without dysplasiaAther osclerotic heart disease of [place] coronary artery without angina pectoris 3 Gaston Pickett [address], [place], [place], [address] , [place]. [phone] OFFICE/OUTPA TIENT VISIT, [facility], [address], [place], [place], [address], [place] tel:[phone] [facility] pain (chief complaint)insom nia1 (chief complaint) Chronic pain syndromePrimar y insomnia 3 Gaston Pickett [address], [place], [place], [address] , [place]. tel:[phone] PREV VISIT, EST, 65 & OVER [facility], [address], [place], [place], [address], [place] tel:[phone] [facility] physical (chief complaint) Encounter for general adult medical exam w abnormal findingsHypoth yroidismChroni c pain syndromeCentri lobular emphysemaEleva palomo prostate specific antigen [PSA]Asymptoma tic microscopic hematuriaMixed hyperlipidemia Cervantes's esophagus without dysplasiaPrima ry insomnia 3 Gaston Pickett [address], [address], [place], [place], [address] , [place]. tel:[phone] OFFICE/OUTPA TIENT VISIT, [facility], [address], [place], [place], [address], [place] tel:[phone] [facility] pain (chief complaint)insom nia1 (chief complaint)HTN (chief complaint)thyro id1 (chief complaint)bladd er CA (chief complaint) Chronic pain syndromePrimar y insomniaHypoth yroidismEssent ial (primary) hypertensionMi xed hyperlipidemia Malignant neoplasm of bladder, unspecified 3 Gaston Pickett [address], [place], [place], [address] , [place]. tel:[phone] OFFICE/OUTPA TIENT VISIT, [facility], [address], [place], [place], [address], [place] tel:[phone] [facility] pain (chief complaint)insom nia1 (chief complaint)kidne y1 (chief complaint)COPD1 (chief complaint) Chronic pain syndromePrimar y insomniaOther specified disorder of kidneyCentrilo bular emphysema 3 Gaston Pickett [address], [place], [place], [address] , [place]. tel:[phone] OFFICE/OUTPA TIENT VISIT, [facility], [address], [place], [place], [address], [place] tel:[phone] [facility] pain (chief complaint)insom nia1 (chief complaint)tobac co1 (chief complaint)bladd er CA1 (chief complaint) Chronic pain syndromePrimar y insomniaMalign ant neoplasm of bladder, unspecifiedTob acco use 3 Gaston Pickett [address], [place], [place], [address] , [place]. tel:[phone] OFFICE/OUTPA TIENT VISIT, [facility], [address], [place], [place], [address], [place] tel:[phone] [facility] pain (chief complaint)insom nia1 (chief complaint) Chronic pain syndromePrimar y insomnia 2 Feldman Iker. [address], [place], [place], [address] , [place]. tel:[phone] OFFICE/OUTPA TIENT VISIT, [facility], [address], [place], [place], [address], [place] tel:[phone] [facility] Medicine pain (chief complaint)insom nia1 (chief complaint) Chronic pain syndromePrimar y insomnia 2 Feldman Iker. [address], [place], [place], [address] , [place]. tel:[phone] OFFICE/OUTPA TIENT VISIT, [facility], [address], [place], [place], [address], [place] tel:[phone] [facility] pain (chief complaint)insom nia1 (chief complaint)barre tt1 (chief complaint) Chronic pain syndromePrimar y insomniaBarret t's esophagus without dysplasiaMalig nant neoplasm of bladder, unspecified 2 Feldman Iker. [address], [place], [place], [address] , [place]. tel:[phone] OFFICE/OUTPA TIENT VISIT, [facility], [address], [place], [place], [address], [place] tel:[phone] [facility] pain (chief complaint)insom nia1 (chief complaint)COPD1 (chief complaint)thyro id1 (chief complaint) Chronic pain syndromeBarret t's esophagus without dysplasiaPrima ry insomniaHypoth yroidismCentri lobular emphysema 2 Feldman Iker. [address], [place], [place], [address] , [place]. tel:[phone] OFFICE/OUTPA TIENT VISIT, [facility], [address], [place], [place], [address], [place] tel:[phone] [facility] pain (chief complaint)insom nia1 (chief complaint)CAD (chief complaint) Coronary artery disease of [place] coronary artery w/o angina pectorisChroni c pain syndromePrimar y insomnia 2 Feldman Iker. [address], [place], [place], [address] , [place]. tel:[phone] OFFICE/OUTPA TIENT VISIT, [facility], [address], [place], [place], [address], [place] tel:[phone] [facility] pain (chief complaint)insom nia1 (chief complaint) Chronic pain syndromePrimar y insomnia 2 Feldman Iker. [address], [place], [place], [address] , [place]. tel:[phone] OFFICE/OUTPA TIENT VISIT, [facility], [address], [place], [place], [address], [place] tel:[phone] [facility] pain (chief complaint)insom nia1 (chief complaint) Chronic pain syndromePrimar y insomnia 2 Feldman Iker. [address], [place], [place], [address] , [place]. tel:[phone] OFFICE/OUTPA TIENT VISIT, [facility], [address], [place], [place], [address], [place] tel:[phone] [facility] pain (chief complaint)insom nia1 (chief complaint)[place] tt1 (chief complaint)renal CA (chief complaint) Polyp of colonBarrett's esophagus without dysplasiaInsom niaChronic pain syndromeCa of left kidney, except renal pelvis 2 Feldman Iker. [address], [place], [place], [address] , [place]. tel:[phone] OFFICE/OUTPA TIENT VISIT, [facility], [address], [place], [place], [address], [place] tel:[phone] [facility] pain (chief complaint)insom nia1 (chief complaint)vitam in D (chief complaint)colon polyp (chief complaint)emphy sema1 (chief complaint) Chronic pain syndromeInsomn iaVitamin D deficiencyPoly p of colonEmphysema 2 Gaston Dong. [address], [place], [place], [address] , [place]. tel:[phone] PREV VISIT, EST, 65 & OVER [facility], [address], [place], [place], [address], [place] tel:[phone] [facility] physical (chief complaint) Hyperlipidemia Chronic pain syndromeMalign ant neoplasm of bladder, unspecifiedBar rett's esophagus without dysplasiaEmphy semaFolate deficiencyHypo calcemiaHypoth yroidismInsomn iaEncounter for general adult medical exam w abnormal findings 2 Gaston Dong. [address], [place], [place], [address] , [place]. tel:[phone] OFFICE/OUTPA TIENT VISIT, [facility], [address], [place], [place], [address], [place] tel:[phone] [facility] pain (chief complaint)insom nia1 (chief complaint)bladd er tumor1 (chief complaint)thyro id1 (chief complaint)CAD1 (chief complaint) Chronic pain syndromeInsomn iaMalignant neoplasm of bladder, unspecifiedHyp erlipidemiaHyp othyroidism 2 Gaston Iker. [address], [place], [place], [address] , [place]. tel:[phone] OFFICE/OUTPA TIENT VISIT, [facility], [address], [place], [place], [address], [place] tel:[phone] [facility] pain (chief complaint)bladd er CA (chief complaint)tobac co (chief complaint)insom nia1 (chief complaint)GERD1 (chief complaint) Chronic pain syndromeInsomn iaBarrett's esophagus without dysplasiaMalig nant neoplasm of bladder, unspecifiedTob acco use 2 Gaston Pickett [address], [place], [place], [address] , [place]. tel:[phone] OFFICE/OUTPA TIENT VISIT, [facility], [address] [place], [address], [place] tel:[phone] [facility] pain (chief complaint)insom nia1 (chief complaint)tobac co1 (chief complaint)bladd er CA (chief complaint)GERD1 (chief complaint) Malignant neoplasm of bladder, unspecifiedIns omniaChronic pain syndromeTobacc o useBarrett's esophagus without dysplasia 1 Gaston Pickett [address], [place], [place], [address] , [place]. tel:[phone] OFFICE/OUTPA TIENT VISIT, [facility], [address], [place], [place], [address], [place] tel:[phone] [facility] pain (chief complaint)insom nia1 (chief complaint)GERD1 (chief complaint)bladd er CA1 (chief complaint) InsomniaChroni c pain syndromeBarret t's esophagus without dysplasiaMalig nant neoplasm of bladder, unspecified 1 Gaston Pickett [address], [address], [place], [place], [address] , [place]. tel:[phone] OFFICE/OUTPA TIENT VISIT, [facility], [address], [place], [place], [address], [place] tel:[phone] [facility] pain (chief complaint)insom nia1 (chief complaint)thyro id1 (chief complaint)bladd er CA (chief complaint) InsomniaHypoth yroidismMalign ant neoplasm of bladder, unspecifiedChr onic pain syndrome 1 Gs[address] Pickett [address], [place], [place], [address] , [place]. tel:[phone] OFFICE/OUTPA TIENT VISIT, EST [facility], [address], [place], [place], [address], tel:[phone] [facility] pain (chief complaint)insom nia1 (chief complaint)COPD1 (chief complaint)bladd er CA (chief complaint) InsomniaChroni c pain syndromeTobacc o useEmphysemaMa lignant neoplasm of bladder, unspecified 1 Gaston Pickett [address], [place], [place], [address] , [place]. tel:[phone] OFFICE/OUTPA TIENT VISIT, EST [facility], [address], [place], [place], [address], tel:[phone] [facility] pain (chief complaint)insom nia1 (chief complaint)tobac co1 (chief complaint) Chronic pain syndromeInsomn iaTobacco use 1 Gaston Pickett [address], [place], [place], [address] , [place]. tel:[phone] OFFICE/OUTPA TIENT VISIT, EST [facility], [address], [place], [place], [address], [place] tel:[phone] [facility] pain (chief complaint)insom nia1 (chief complaint)renal 1 (chief complaint) LeukocytosisAc [place] renal failureHypokal emiaInsomniaCh ronic pain syndromeEssent ial (primary) hypertension 1 Gaston Pickett [address], [address], [place], [place], [address] , [place]. tel:[phone] OFFICE/OUTPA TIENT VISIT, EST [facility], [address], [address], tel:[phone] [facility] pain1 (chief complaint)insom nia1 (chief complaint)barre tt (chief complaint)weigh t loss1 (chief complaint) Chronic pain syndromeInsomn iaBarrett's esophagus without dysplasiaAbnor mal weight loss 1 Feldman Iker. [address], [place], [place], [address] , [place]. tel:[phone] OFFICE/OUTPA TIENT VISIT, [facility], [address], [place], [place], [address], [place] tel:[phone] [facility] pain (chief complaint)insom na1 (chief complaint) Chronic pain syndromeInsomn ia 0 1 Gaston Dong. [address], [place], [place], [address] , [place]. tel:[phone] OFFICE/OUTPA TIENT VISIT, [facility], [address], [place], [place], [address], [place] tel:[phone] [facility] pain (chief complaint)insom nia1 (chief complaint)vitam in D (chief complaint) Chronic pain syndromeInsomn iaVitamin D deficiency, unspecified 1 Gaston Dong. [address], [place], [place], [address] , [place]. tel:[phone] OFFICE/OUTPA TIENT VISIT, [facility], [address], [place], [place], [address], [place] tel:[phone] [facility] pain (chief complaint)insom nia1 (chief complaint) Chronic pain syndromeInsomn ia Jun-0 1 Gaston Dong. [address], [place], [place], [address] , [place]. tel:[phone] OFFICE/OUTPA TIENT VISIT, [facility], [address], [place], [place], [address], [place] tel:[phone] [facility] pain (chief complaint)insom nia1 (chief complaint)COPD1 (chief complaint) Chronic pain syndromeEmphys emaInsomnia May-0 1 Gaston Dong. [address], [place], [place], [address] , [place]. tel:[phone] PREV VISIT, EST, 65 & OVER [facility], [address], [place], [place], [address], tel:[phone] [facility] Medicine physical (chief complaint) Encounter for general adult medical exam w abnormal findingsChroni c pain syndromeEmphys emaInsomniaHyp othyroidismCor onary artery disease of [place] coronary artery w/o angina pectorisMalign ant neoplasm of bladder, unspecified 1 Gaston Dong. [address], [place], [place], [address] , [place]. tel:[phone] OFFICE/OUTPA TIENT VISIT, [facility], [address] [place], [address], [place] tel:[phone] [facility] Medicine pain (chief complaint)insom nia1 (chief complaint)COPD1 (chief complaint) EmphysemaChron ic pain syndromeInsomn ia Feb- 0 Gaston Dong. [address] [facility] [address], [place], [place], [address] , [place]. tel:[phone] OFFICE/OUTPA TIENT VISIT, [facility], [address], [place], [place], [address], [place] tel:[phone] [facility] Medicine pain1 (chief complaint)insom nia1 (chief complaint)hypot hyroidism1 (chief complaint)HLP (chief complaint) Hypothyroidism Hyperlipidemia Chronic pain syndromeInsomn ia Feb-0 0 Gaston Dong. [address], [place], [place], [address] , [place]. tel:[phone] OFFICE/OUTPA TIENT VISIT, [facility], [address], [place], [place], [address], [place] tel:[phone] [facility] Medicine pain (chief complaint)insom nia1 (chief complaint)hypot hyroidism1 (chief complaint)CAD1 (chief complaint) Chronic pain syndromeInsomn iaCoronary artery disease of [place] coronary artery w/o angina pectorisHypoth yroidism Jan-0 0 Gaston Dong. [address], [place], [place], [address] , [place]. tel:[phone] OFFICE/OUTPA TIENT VISIT, [facility], [address], [place], [place], [address], [place] tel:[phone] [facility] pain (chief complaint)insom nia1 (chief complaint)tobac co1 (chief complaint) Chronic pain syndromeInsomn iaTobacco use 0 Feldman Iker. [address], [address], [place], [place], [address] , [place]. [phone] OFFICE/OUTPA TIENT VISIT, [facility], [address], [place], [place], [address], [place] tel:[phone] [facility] pain (chief complaint)insom nia1 (chief complaint)tobac co (chief complaint)COPD1 (chief complaint) Chronic pain syndromeInsomn iaEmphysemaTob acco use 0 Feldman Iker. [address], [address], [place], [place], [address] , [place]. [phone] OFFICE/OUTPA TIENT VISIT, [facility], [address], [place], [place], [address], [place] tel:[phone] [facility] pain (chief complaint)insom nia1 (chief complaint)tobac co1 (chief complaint) Chronic pain syndromeInsomn iaTobacco use 0 Feldman Iker. [address], [address], [place], [place], [address] , [place]. tel:[phone] OFFICE/OUTPA TIENT VISIT, [facility], [address], [place], [place], [address], [place] tel:[phone] [facility] pain (chief complaint)insom nia1 (chief complaint) Chronic pain syndromeInsomn iaMalignant neoplasm of bladder, unspecified 0 Feldman Iker. [address], [place], [place], [address] , [place]. [phone] OFFICE/OUTPA TIENT VISIT, [facility], [address], [place], [place], [address], [place] tel:[phone] [facility] pain1 (chief complaint)anxie ty1 (chief complaint)COPD1 (chief complaint)bladd er CA1 (chief complaint) Chronic pain syndromeInsomn iaEmphysemaMal ignant neoplasm of bladder, unspecified Bebeto-0 0 Gaston Pickett [address], [address], [place], [place], [address] , [place]. tel:[phone] OFFICE/OUTPA TIENT VISIT, [facility], [address], [place], [place], [address], [place] tel:[phone] [facility] Medicine pain (chief complaint)anxie ty1 (chief complaint)D (chief complaint) InsomniaChroni c pain syndromeVitami n D deficiency, unspecified 0 0 Gaston Dong. [address], [place], [place], [address] , [place]. tel:[phone] OFFICE/OUTPA TIENT VISIT, [facility], [address], [place], [place], [address], [place] tel:[phone] [facility] Medicine pain (chief complaint)anxie ty1 (chief complaint) Chronic pain syndromeInsomn ia Apr-0 0 Gaston Pickett [address], [address], [place], [place], [address] , [place]. tel:[phone] OFFICE/OUTPA TIENT VISIT, [facility], [address] [place], [address], [place] tel:[phone] [facility] pain1 (chief complaint)anxie ty1 (chief complaint)[place] tt1 (chief complaint)bladd er1 (chief complaint)HTn (chief complaint) Cervantes's esophagus without dysplasiaChron ic pain syndromeInsomn iaMalignant neoplasm of bladder, unspecifiedEss ential (primary) hypertension Mar-0 0 Gaston Pickett [address], [place], [place], [address] , [place]. tel:[phone] Referring Provider: Franky Dunham [facility] A, [place], [place], [address]. tel:[phone] OFFICE/OUTPA TIENT VISIT, [facility], [address] [place], [address], tel:[phone] [facility] copd (chief complaint)pain1 (chief complaint)anxie ty1 (chief complaint)[place] tt1 (chief complaint)CAD (chief complaint) InsomniaBarret t's esophagus without dysplasiaChron ic pain syndromeEmphys emaCoronary artery disease of [place] coronary artery w/o angina pectoris 0 Gaston Dong. [address] [facility] [place], [address] , [place]. tel:[phone] Referring Provider: Franky Dunham [facility], [place], [place], [address]. tel:[phone] OFFICE/OUTPA TIENT VISIT, [facility], [address] [place] [address] [place] [place], [address], [place] tel:[phone] [facility] anxiety1 (chief complaint)pain (chief complaint)bladd er CA (chief complaint)[place] tt1 (chief complaint)COPD1 (chief complaint) Malignant neoplasm of bladder, unspecifiedEmp hysemaBarrett' s esophagus without dysplasiaChron ic pain syndromeInsomn ia 0 Gaston Dong. [address] [facility] [place] [address] , [place]. tel:[phone] Referring Provider: Franky Dunham [facility] A, [place], [place], [address]. tel:[phone] OFFICE/OUTPA TIENT VISIT, [facility], [address] [place], [address], [place] tel:[phone] [facility] chronic pain1 (chief complaint)anxie ty1 (chief complaint)HTN (chief complaint)bladd er CA (chief complaint) Chronic pain syndromeMalign ant neoplasm of bladder, unspecifiedIns omniaEssential (primary) hypertensionCo ronary artery disease of [place] coronary artery w/o angina pectoris 9 Gaston Dong. [address], [place], [place], [address] , [place]. tel:[phone] Referring Provider: Franky Dunham [address], [place], [place], [address]. tel:[phone] PREV VISIT, EST, 65 & OVER [facility], [address], [place], [place], [address], [place] tel:[phone] [facility] Medicine physical (chief complaint) Encounter for general adult medical exam w abnormal findingsEmphys emaBarrett's esophagus without dysplasiaMalig nant neoplasm of bladder, unspecifiedChr onic pain syndromeHypoth yroidismCorona ry artery disease of [place] coronary artery w/o angina pectoris 9 Gaston Dong. [address], [address], [place], [place], [address] , [place]. tel:[phone] Referring Provider: Franky Dunham [address], [place], [place], [address]. tel:[phone] OFFICE/OUTPA TIENT VISIT, EST [facility], [address] [place], [address], [place] tel:[phone] [facility] chronic pain1 (chief complaint)insom nia1 (chief complaint)COPD (chief complaint)HTN (chief complaint) EmphysemaChron ic pain syndromeInsomn iaCoronary artery disease of [place] coronary artery w/o angina pectoris 9 Gaston Dong. [address], [address], [place], [place], [address] , [place]. tel:[phone] OFFICE/OUTPA TIENT VISIT, EST [facility], [address] [place], [address], [place] tel:[phone] [facility] emphysema1 (chief complaint)chron ic pain1 (chief complaint)insom nia1 (chief complaint)GERD1 (chief complaint) EmphysemaChron ic pain syndromeInsomn iaBarrett's esophagus without dysplasia 9 Feldman Iker. [address], [address], [place], [address] , [place]. tel:[phone] OFFICE/OUTPA TIENT VISIT, [facility], [address], [place], [place], [address], [place] tel:[phone] [facility] chronic pain1 (chief complaint)insom nia1 (chief complaint) Chronic pain syndromeInsomn ia Aug 9 Gaston Dong. [address], [place], [place], [address] , [place]. tel:[phone] OFFICE/OUTPA TIENT VISIT, [facility], [address], [place], [place], [address], [place] tel:[phone] [facility] chronic pain1 (chief complaint)insom nia1 (chief complaint)COPD1 (chief complaint)bladd er tumor1 (chief complaint) Chronic pain syndromeInsomn iaEmphysemaMal ignant neoplasm of bladder, unspecified 9 Gaston Dong. [address], [place], [place], [address] , [place]. [phone] OFFICE/OUTPA TIENT VISIT, [facility], [address], [place], [place], [address], [place] tel:[phone] [facility] chronic pain (chief complaint)anxie ty1 (chief complaint)bladd er CA (chief complaint)lung (chief complaint) Chronic pain syndromeInsomn iaScreening for lung caMalignant neoplasm of bladder, unspecified 9 Gaston Dong. [address], [place], [place], [address] , [place]. tel:[phone] Referring Provider: Iker Feldman [address], [place], [place], [address]. tel:[phone] OFFICE/OUTPA TIENT VISIT, [facility], [address], [place], [place], [address], [place] tel:[phone] [facility] vitamin D1 (chief complaint)thyro id1 (chief complaint)chron ic pain1 (chief complaint)insom nia1 (chief complaint) Hypothyroidism InsomniaChroni c pain syndromeVitami n D deficiency, unspecified 9 Gaston Dong. [address], [place], [place], [address] , [place]. tel:[phone] Referring Provider: Franky Dunham [address], [place], [place], [address]. tel:[phone] OFFICE/OUTPA TIENT VISIT, [facility], [address], [place], [place], [address], [place] tel:[phone] [facility] chronic pain (chief complaint)insom nia1 (chief complaint) Chronic pain syndromeInsomn ia 9 Gaston Dong. [address], [address], [place], [place], [address] , [place]. tel:[phone] Referring Provider: Franky Dunham [address], [place], [place], [address]. tel:[phone] OFFICE/OUTPA TIENT VISIT, [facility], [address], [place], [place], [address], [place] tel:[phone] [facility] chronci pain1 (chief complaint)hypot hyroidism1 (chief complaint)CAD1 (chief complaint)lung (chief complaint) Chronic pain syndromeHypoth yroidismCorona ry artery disease of [place] coronary artery w/o angina pectorisScreen ing for lung caInsomnia 9 Gaston Dong. [address], [address], [place], [place], [address] , [place]. tel:[phone] Referring Provider: Franky Dunham [address], [place], [place], [address]. tel:[phone] OFFICE/OUTPA TIENT VISIT, [facility], [address], [place], [place], [address], [place] tel:[phone] [facility] chronic pain1 (chief complaint)insom nia1 (chief complaint) Chronic pain syndromeInsomn ia 9 Gaston Dong. [address], [address], [place], [place], [address] , [place]. tel:[phone] Referring Provider: Franky Dunham [address], [place], [place], [address]. tel:[phone] OFFICE/OUTPA TIENT VISIT, [facility], [address] [place], [address], [place] tel:[phone] [facility] CAD1 (chief complaint)[place] tt1 (chief complaint)bladd er tumor1 (chief complaint)chron ic pain1 (chief complaint)insom nia1 (chief complaint) Cervantes's esophagus without dysplasiaChron ic pain syndromeCorona ry artery disease of [place] coronary artery w/o angina pectorisEmphys emaInsomnia 9 Gaston Dong. [address], [place], [place], [address] , [place]. tel:[phone] Referring Provider: Franky Dunham [address], [place], [place], [address]. tel:[phone] OFFICE/OUTPA TIENT VISIT, [facility], [address] [place], [place], [address], [place] tel:[phone] [facility] chronic pain (chief complaint)insom nia1 (chief complaint)bladd er CA1 (chief complaint) Chronic pain syndromeInsomn iaMalignant neoplasm of bladder, unspecified 8 Gaston Dong. [address], [place], [place], [address] , [place]. tel:[phone] Referring Provider: Franky Dunham [address], [place], [place], [address]. tel:[phone] OFFICE/OUTPA TIENT VISIT, [facility], [address], [place], [place], [address], [place] tel:[phone] [facility] chronic pain (chief complaint)anxie ty1 (chief complaint)renal lesion (chief complaint)[place] tt (chief complaint) InsomniaMalign ant neoplasm of bladder, unspecifiedChr onic pain syndromeBarret t's esophagus without dysplasia 8 Gaston Dong. [address], [place], [place], [address] , [place]. tel:[phone] Referring Provider: Franky Dunham [address], [place], [place], [address]. tel:[phone] OFFICE/OUTPA TIENT VISIT, EST [facility], [address], [place], [place], [address], [place] tel:[phone] [facility] thyroid1 (chief complaint)chron ic pain1 (chief complaint)insom nia1 (chief complaint)COPD1 (chief complaint)bladd er tumor1 (chief complaint) EmphysemaInsom niaOther cystic kidney diseasesHypoth yroidismChroni c pain syndrome 8 Gaston Pickett [address], [address], [place], [place], [address] , [place]. tel:[phone] Referring Provider: Franky Dunham [address], [place], [place], [address]. tel:[phone] PREV VISIT, EST, AGE 40-64 [facility], [address] [place], [address], [place] tel:[phone] [facility] Physical (chief complaint) Encounter for general adult medical exam w abnormal findingsChroni c pain syndromeInsomn iaMalignant neoplasm of bladder, unspecifiedCor onary artery disease of [place] coronary artery w/o angina pectorisHypoth yroidismEmphys zuleima 8 Gaston [address], [place], [place], [address] , [place]. tel:[phone] Referring Provider: Franky Dunham [facility] A, [place], [place], [address]. tel:[phone] OFFICE/OUTPA TIENT VISIT, EST [facility], [address], [place], [place], [address], [place] tel:[phone] [facility] bladder CA (chief complaint)kidne y cyst1 (chief complaint)chron ic pain1 (chief complaint)insom nia1 (chief complaint) Malignant neoplasm of bladder, unspecifiedOth er cystic kidney diseasesChroni c pain syndromeInsomn ia 8 Gaston Dong. [address], [place], [place], [address] , [place]. tel:[phone] Referring Provider: Franky Dunham [address], [place], [place], [address]. tel:[phone] OFFICE/OUTPA TIENT VISIT, [facility], [address] [place], [address], [place] tel:[phone] [facility] chronic pain1 (chief complaint)anxie ty1 (chief complaint)COPD1 (chief complaint)renal 1 (chief complaint) EmphysemaChron ic pain syndromeBladde r disorder, unspecifiedIns omnia 8 Gaston Pickett [address], [address], [place], [place], [address] , [place]. tel:[phone] OFFICE/OUTPA TIENT VISIT, [facility], [address] [place], [address], [place] tel:[phone] [facility] kidney1 (chief complaint)chron ic pain (chief complaint)insom nia1 (chief complaint) Chronic pain syndromeBladde r disorder, unspecifiedOth er cystic kidney diseases 8 Gaston Pickett [address], [address], [place], [place], [address] , [place]. tel:[phone] Referring Provider: Franky Dunham [address], [place], [place], [address]. tel:[phone] OFFICE/OUTPA TIENT VISIT, [facility], [address] [place], [address], [place] tel:[phone] [facility] hypothyroidism (chief complaint)HLP (chief complaint)chron ic pain1 (chief complaint)insom nia1 (chief complaint) Hypothyroidism Hyperlipidemia Chronic pain syndromeInsomn ia 8 Gaston Dong. [address], [address], [place], [place], [address] , [place]. tel:[phone] Referring Provider: Franky Dunham [address], [place], [place], [address]. tel:[phone] OFFICE/OUTPA TIENT VISIT, [facility], [address], [place], [place], [address], [place] tel:[phone] [facility] chronic pain (chief complaint)insom nia1 (chief complaint)CAD1 (chief complaint)COPD1 (chief complaint) Chronic pain syndromeCorona ry artery disease of [place] coronary artery w/o angina pectorisInsomn iaTobacco use 8 Gaston Dong. [address], [address], [place], [place], [address] , [place]. tel:[phone] Referring Provider: Franky Dunham [address], [place], [place], [address]. tel:[phone] OFFICE/OUTPA TIENT VISIT, [facility], [address], [place], [place], [address], [place] tel:[phone] [facility] chronic pain (chief complaint)insom nia1 (chief complaint)tobac co1 (chief complaint) Chronic pain syndromeInsomn iaTobacco use May-3 8 Gaston Dong. [address], [address], [place], [place], [address] , [place]. tel:[phone] OFFICE/OUTPA TIENT VISIT, [facility], [address], [place], [place], [address], [place] tel:[phone] [facility] chronic pain1 (chief complaint)anxie ty1 (chief complaint)tobac co1 (chief complaint)[place] tt (chief complaint) Cervantes's esophagus without dysplasiaInsom niaChronic pain syndromeEmphys zuleima May-0 8 Gaston Dong. [address], [place], [place], [address] , [place]. tel:[phone] Referring Provider: Franky Dunham [address], [place], [place], [address]. tel:[phone] OFFICE/OUTPA TIENT VISIT, [facility], [address], [place], [place], [address], [place] tel:[phone] [facility] chronic pain1 (chief complaint)insom nia1 (chief complaint) InsomniaChroni c pain syndrome 8 Gaston Dong. [address], [address], [place], [address] , [place]. tel:[phone] OFFICE/OUTPA TIENT VISIT, [facility], [address], [place], [place], [address], [place] tel:[phone] [facility] COPD1 (chief complaint)chron ic pain1 (chief complaint)insom nia1 (chief complaint)barre tt1 (chief complaint) Cervantes's esophagus without dysplasiaEmphy semaInsomniaCh ronic pain syndrome 8 Gaston Dong. [address], [place], [place], [address] , [place]. tel:[phone] Referring Provider: Franky Dunham [address], [place], [place], [address]. tel:[phone] OFFICE/OUTPA TIENT VISIT, [facility], [address], [place], [place], [address], [place] tel:[phone] [facility] sob (chief complaint)chron ic pain1 (chief complaint)insom nia1 (chief complaint) EmphysemaInsom niaChronic pain syndrome 7 Gaston Dong. [address], [place], [place], [address] , [place]. tel:[phone] Referring Provider: Franky Dunham [address], [place], [place], [address]. tel:[phone] OFFICE/OUTPA TIENT VISIT, [facility], [address], [place], [place], [address], [place] tel:[phone] [facility] chrnoic pain (chief complaint)anxei ty1 (chief complaint) Chronic pain syndromeInsomn ia Nov- 7 Gaston Pickett [address], [address], [place], [place], [address] , [place]. tel:[phone] Referring Provider: Franky Dunham [address], [place], [place], [address]. tel:[phone] OFFICE/OUTPA TIENT VISIT, EST [facility], [address], [place], [place], [address], [place] tel:[phone] [facility] chronic pain1 (chief complaint)anxie ty1 (chief complaint)thyro id1 (chief complaint)[place] tt1 (chief complaint) InsomniaHypoth yroidismBarret t's esophagus without dysplasiaChron ic pain syndrome Dec- 7 Gaston Pickett [address], [address], [place], [place], [address] , [place]. [phone] Referring Provider: Franky Dunham [facility] [address], [place], [place], [address]. tel:[phone] OFFICE/OUTPA TIENT VISIT, [facility], [address] [place], [address], [place] tel:[phone] [facility] chronic pain (chief complaint)anxie ty1 (chief complaint)ED (chief complaint) Chronic pain syndromeInsomn iaMale erectile dysfunction, unspecified Sep-0 7 [address], [place], [address] , [place]. [phone] Referring Provider: Franky Dunham [facility] [address], [place], [place], [address]. tel:[phone] PREV VISIT, EST, AGE 40-64 [facility], [address], [place], [place], [address], [place] tel:[phone] [facility] Physical (chief complaint) Encounter for general adult medical exam w abnormal findingsHypoth yroidismInsomn iaAtherosclero tic heart disease of [place] coronary artery without angina pectoris 7 Gaston Dong. [address], [address], [place], [place], [address] , [place]. tel:[phone] Referring Provider: Franky Dunham [address], [place], [place], [address]. tel:[phone] OFFICE/OUTPA TIENT VISIT, [facility], [address], [place], [place], [address], [place] tel:[phone] [facility] Cervantes (chief complaint)insom nia1 (chief complaint)chron ic pain1 (chief complaint)CAD (chief complaint) Cervantes's esophagus without dysplasiaChron ic pain syndromeAthero sclerotic heart disease of [place] coronary artery without angina pectorisInsomn ia Gaston Dong. [address], [address], [place], [place], [address] , [place]. tel:[phone] Referring Provider: Franky Dunham [address], [place], [place], [address]. tel:[phone] OFFICE/OUTPA TIENT VISIT, [facility], [address], [place], [place], [address], [place] tel:[phone] [facility] chronic pain1 (chief complaint)insom nia1 (chief complaint) Chronic pain syndromeInsomn ia 7 Gaston Dong. [address], [address], [place], [place], [address] , [place]. tel:[phone] Referring Provider: Franky Dunham [address], [place], [place], [address]. tel:[phone] OFFICE/OUTPA TIENT VISIT, [facility], [address], [place], [place], [address], [place] tel:[phone] [facility] CAD (chief complaint)thyro id1 (chief complaint)hep C (chief complaint)chron ic pain1 (chief complaint)anxie ty1 (chief complaint) Hypothyroidism Atheroscleroti c heart disease of [place] coronary artery without angina pectorisInsomn iaHepatitis C 7 Gaston Dong. [address], [address], [place], [place], [address] , [place]. tel:[phone] Referring Provider: Franky Dunham [facility] A, [place], [place], [address]. tel:[phone] OFFICE/OUTPA TIENT VISIT, [facility], [address], [place], [place], [address], [place] tel:[phone] [facility] chronic pain (chief complaint)insom nia1 (chief complaint)hep C (chief complaint)HLP (chief complaint) InsomniaHyperl ipidemiaEncoun ter for screening for other viral diseasesHypoth yroidism 7 Gaston Dong. [address], [address], [place], [place], [address] , [place]. tel:[phone] Referring Provider: Franky Dunham [facility] A, [place], [place], [address]. tel:[phone] OFFICE/OUTPA TIENT VISIT, [facility], [address] [place], [address], [place] tel:[phone] [facility] emphysema1 (chief complaint)chron ic pain (chief complaint)insom nia1 (chief complaint)CAD1 (chief complaint) COPDInsomniaCh ronic pain syndromeAthero sclerotic heart disease of [place] coronary artery without angina pectoris 7 Gaston Pickett [address], [address], [place], [place], [address] , [place]. tel:[phone] Referring Provider: Franky Dunham [address], [place], [place], [address]. tel:[phone] OFFICE/OUTPA TIENT VISIT, [facility], [address] [place], [place], [address], [place] tel:[phone] [facility] chronic pain1 (chief complaint)insom nia1 (chief complaint)CAD (chief complaint)tobac co1 (chief complaint) InsomniaTobacc o useChronic pain syndromeAthero sclerotic heart disease of [place] coronary artery without angina pectoris 7 Gaston Dong. [address], [place], [place], [address] , [place]. tel:[phone] Referring Provider: Franky Dunham [address], [place], [place], [address]. tel:[phone] OFFICE/OUTPA TIENT VISIT, [facility], [address], [place], [place], [address], [place] tel:[phone] [facility] chronic pain (chief complaint)insom nia1 (chief complaint)tobac co1 (chief complaint) Chronic pain syndromeInsomn iaTobacco use 7 Gaston Dong. [address], [place], [place], [address] , [place]. tel:[phone] Referring Provider: Franky Dunham [address], [place], [place], [address]. tel:[phone] OFFICE/OUTPA TIENT VISIT, [facility], [address], [place], [place], [address], [place] tel:[phone] [facility] chronic pain1 (chief complaint)anxie ty1 (chief complaint)ED (chief complaint)GERD1 (chief complaint) Cervantes's esophagus without dysplasiaChron ic pain syndromeInsomn iaMale erectile dysfunction, unspecified 6 Gaston Pickett [address], [address], [place], [place], [address] , [place]. tel:[phone] Referring Provider: Franky Dunham [address], [place], [place], [address]. tel:[phone] OFFICE/OUTPA TIENT VISIT, [facility], [address], [place], [place], [address], [place] tel:[phone] [facility] chronic pain (chief complaint)anxie ty1 (chief complaint) Chronic pain syndromeInsomn ia 6 Gaston Dong. [address], [place], [place], [address] , [place]. tel:[phone] Referring Provider: Franky Dunham [address], [place], [place], [address]. tel:[phone] OFFICE/OUTPA TIENT VISIT, [facility], [address], [place], [place], [address], [place] tel:[phone] [facility] chronic pain (chief complaint)anxie ty1 (chief complaint)hypot hyroidism (chief complaint)HTN (chief complaint) Chronic pain syndromeInsomn iaEssential (primary) hypertensionHy pothyroidism 6 Gaston Dong. [address], [place], [place], [address] , [place]. tel:[phone] Referring Provider: Franky Dunham [address], [place], [address]. tel:[phone] OFFICE/OUTPA TIENT VISIT, [facility], [address], [place], [place], [address], [place] tel:[phone] [facility] chronic pain1 (chief complaint)anxie ty1 (chief complaint)GERD1 (chief complaint)HTN (chief complaint) Chronic pain syndromeBarret t's esophagus without dysplasiaEssen tial (primary) hypertensionAn xiolytic dependence 6 Gaston Dong. [address], [place], [place], [address] , [place]. tel:[phone] Referring Provider: Franky Dunham [address], [place], [place], [address]. tel:[phone] OFFICE/OUTPA TIENT VISIT, [facility], [address], [place], [place], [address], [place] tel:[phone] [facility] chronic pain (chief complaint)anxie ty1 (chief complaint) Chronic pain syndromeAnxiol ytic dependence 6 Gaston Dong. [address], [place], [place], [address] , [place]. tel:[phone] Referring Provider: Franky Dunham [address], [place], [place], [address]. tel:[phone] OFFICE/OUTPA TIENT VISIT, [facility], [address] [place], [address], [place] tel:[phone] [facility] CAD (chief complaint)HLP (chief complaint)hypot hyroidism (chief complaint)chron ic pain (chief complaint) Atheroscleroti c heart disease of [place] coronary artery without angina pectorisAnxiol ytic dependenceHype rlipidemiaChro flores pain syndrome 6 Gaston Dong. [address], [place], [address] , [place]. [phone] Referring Provider: Franky Dunham [facility] A, [place], [place], [address]. tel:[phone] OFFICE/OUTPA TIENT VISIT, [facility], [address] [place], [address], tel:[phone] [facility] chronic pain (chief complaint)insom nia1 (chief complaint)ED1 (chief complaint) Chronic pain syndromeInsomn iaOther male erectile dysfunctionCor onary artery disease of [place] coronary artery w/o angina pectoris 6 Gaston Dong. [address], [place], [place], [address] , [place]. tel:[phone] Referring Provider: Franky Dunham [facility] A, [place], [place], [address]. tel:[phone] OFFICE/OUTPA TIENT VISIT, [facility], [address] [place], [address], [place] tel:[phone] [facility] chronic pain (chief complaint)anxie ty1 (chief complaint) Chronic pain syndromeAnxiol ytic dependence 6 Gaston Dong. [address], [place], [place], [address] , [place]. tel:[phone] Referring Provider: Franky Dunham [facility] [address], [place], [place], [address]. tel:[phone] OFFICE/OUTPA TIENT VISIT, [facility], [address], [place], [place], [address], [place] tel:[phone] [facility] chronic pain (chief complaint)anxie ty1 (chief complaint)barre tt (chief complaint)CAD (chief complaint) Chronic pain syndromeBarret t's esophagus without dysplasiaCoron william artery disease of [place] coronary artery w/o angina pectorisEncoun ter for screening for malignant neoplasm of prostate Jun-2 6 Gaston Dong. [address], [place], [place], [address] , [place]. tel:[phone] Referring Provider: Franky Dunham [facility] [place], [place], [place], [address]. tel:[phone] OFFICE/OUTPA TIENT VISIT, [facility], [address] [place], [place], [place], [address], [place] tel:[phone] [facility] chronic pain (chief complaint)anxie ty1 (chief complaint)dizzi ness (chief complaint)anemi a1 (chief complaint) AnemiaDizzines sChronic pain syndrome Apr-0 6 Gaston Dong. [address], [place], [place], [address] , [place]. [phone] Referring Provider: Franky Dunham [address], [place], [place], [address]. tel:[phone] OFFICE/OUTPA TIENT VISIT, [facility], [address] [place], [place], [place], [address], [place] tel:[phone] [facility] chronic pain (chief complaint)anxie ty1 (chief complaint) Other insomniaChroni c pain syndrome Mar-0 6 Gaston Dong. [address], [place], [place], [address] , [place]. [phone] Referring Provider: Franky Dunham [address], [place], [place], [address]. tel:[phone] OFFICE/OUTPA TIENT VISIT, [facility], [address], [place], [place], [address], [place] tel:[phone] [facility] GERD1 (chief complaint)HLP1 (chief complaint)chron ic pain (chief complaint)insom nia1 (chief complaint) Hyperlipidemia Chronic pain syndromeGERD without esophagitisHyp othyroidism Fe 6 Gaston Dong. [address], [place], [place], [address] , [place]. tel:[phone] Referring Provider: Franky Dunham [address], [place], [place], [address]. tel:[phone] OFFICE/OUTPA TIENT VISIT, [facility], [address], [place], [place], [address], [place] tel:[phone] [facility] chronic pain (chief complaint)anxie ty1 (chief complaint)GERD1 (chief complaint)CAD (chief complaint) Chronic pain syndromeOther insomniaCorona ry artery disease of [place] coronary artery without angina pectorisHyperl ipidemia 5 Gaston Dong. [address], [place], [address] , [place]. tel:[phone] Referring Provider: Franky Dunham [address], [place], [place], [address]. tel:[phone] OFFICE/OUTPA TIENT VISIT, [facility], [address], [place], [place], [address], [place] tel:[phone] [facility] right ankle pain (chief complaint)anxie ty1 (chief complaint) Chronic pain syndromeOther insomnia 5 Gaston Dong. [address], [place], [place], [address] , [place]. tel:[phone] Referring Provider: Franky Dunham [address], [place], [place], [address]. tel:[phone] OFFICE/OUTPA TIENT VISIT, [facility], [address], [place], [place], [address], [place] tel:[phone] [facility] ankle pain1 (chief complaint)insom nia1 (chief complaint) Secondary osteoarthritis , right ankle and footOther insomnia Dec-3 0 5 Gaston Dong. [address], [place], [place], [address] , [place]. tel:[phone] Referring Provider: Franky Dunham [address], [place], [place], [address]. tel:[phone] OFFICE/OUTPA TIENT VISIT, [facility], [address], [place], [place], [address], [place] tel:[phone] [facility] ankle pain (chief complaint)insom alverto (chief complaint)CAD (chief complaint)gastr ic ulcer (chief complaint) Pain in right ankleOpioid dependence, uncomplicatedH ypertensive heart disease without heart failureChronic gastric ulcer without hemorrhage or perforationTob acco use Dec- 5 Gaston Dong. [address], [address], [place], [place], [address] , [place]. tel:[phone] Referring Provider: Franky Dunham [address], [place], [place], [address]. tel:[phone] OFFICE/OUTPA TIENT VISIT, [facility], [address], [place], [place], [address], [place] tel:[phone] [facility] HTN (chief complaint)gastr ic ulcer (chief complaint)insom alverto (chief complaint)hypot hyroidism (chief complaint) Insomnia, unspecifiedUns pecified hypothyroidism Unspecified essential hypertensionAc [place] gastric ulcer without mention of hemorrhage or perforation, with obstruction Nov-0 5 Gaston Dong. [address], [address], [place], [place], [address] , [place]. tel:[phone] Referring Provider: Franky Dunham [address], [place], [address]. tel:[phone] OFFICE/OUTPA TIENT VISIT, [facility], [address], [place], [place], [address], [place] tel:[phone] [facility] pain (chief complaint)anxie ty (chief complaint)hypot hyroidism (chief complaint)gERD (chief complaint) Insomnia, unspecifiedUns pecified hypothyroidism Unspecified essential hypertension 5 Gaston Pickett [address], [address], [place], [place], [address] , [place]. [phone] Referring Provider: Franky Dunham [address], [place], [place], [address]. tel:[phone] OFFICE/OUTPA TIENT VISIT, [facility], [address], [place], [place], [address], [place] tel:[phone] [facility] chronic apin (chief complaint)anxie ty (chief complaint) Other chronic pain 5 Gaston Pickett [address], [address], [place], [address] , [place]. [phone] Referring Provider: Franky Dunham [address], [place], [place], [address]. tel:[phone] OFFICE/OUTPA TIENT VISIT, [facility], [address], [place], [place], [address], [place] tel:[phone] [facility] chronic pain (chief complaint)anxie ty (chief complaint) Ankle pain 5 Gaston Pickett [address], [address], [place], [address] , [place]. [phone] Referring Provider: Franky Dunham [address], [place], [place], [address]. tel:[phone] OFFICE/OUTPA TIENT VISIT, [facility], [address], [place], [place], [address], [place] tel:[phone] [facility] chronic pain (chief complaint)anxie ty (chief complaint)hypot hyroidism (chief complaint) Hypothyroidism Pain in joint involving lower legInsomnia, OtherScreening for malignant neoplasms of the prostate 5 Gaston Pickett [address], [place], [place], [address] , [place]. tel:[phone] Referring Provider: Franky Dunham [address], [place], [place], [address]. tel:[phone] OFFICE/OUTPA TIENT VISIT, [facility], [address], [place], [place], [address], [place] tel:[phone] [facility] chronic pain (chief complaint)anxie ty (chief complaint)gastr ic ulcer (chief complaint)CAD (chief complaint) Insomnia, OtherCAD, Eek VesselAcute gastric ulcer without mention of hemorrhage or perforation, with obstructionOpi oid type dependence, unspecified use Apr-0 2 5 Gaston Dong. [address], [address], [place], [place], [address] , [place]. tel:[phone] Referring Provider: Franky Dunham [address], [place], [address]. tel:[phone] OFFICE/OUTPA TIENT VISIT, [facility], [address], [place], [place], [address], [place] tel:[phone] [facility] chronic pain (chief complaint)insom alverto (chief complaint) Insomnia, OtherPain in joint involving lower legOpioid type dependence, unspecified useSedative, hypnotic or anxiolytic dependence, unspecified Mar-0 2- 5 Gaston Pickett [address], [address], [place], [place], [address] , [place]. tel:[phone] Referring Provider: Franky Dunham [address], [place], [place], [address]. tel:[phone] OFFICE/OUTPA TIENT VISIT, [facility], [address], [place], [place], [address], [place] tel:[phone] [facility] chornic pain (chief complaint)anxie ty (chief complaint)HLP (chief complaint)hypot hyroidism (chief complaint) Hypothyroidism Insomnia, OtherOther and unspecified hyperlipidemia Pain in joint involving lower leg Feb-0 2-201 5 Gaston Pickett [address], [address], [place], [place], [address] , [place]. tel:[phone] Referring Provider: Franky Dunham [address], [place], [place], [address]. tel:[phone] OFFICE/OUTPA TIENT VISIT, [facility], [address], [place], [place], [address], [place] tel:[phone] [facility] GERD (chief complaint)chron ic pain (chief complaint)anxie ty (chief complaint)HLP (chief complaint) Hypothyroidism CAD, Eek VesselPain in joint involving lower legHypertensio n, Unspecified 5 Gaston Dong. [address], [place], [place], [address] , [place]. [phone] Referring Provider: Franky Dunham [address], [place], [place], [address]. tel:[phone] OFFICE/OUTPA TIENT VISIT, [facility], [address], [place], [place], [address], [place] tel:[phone] [facility] chronic pain (chief complaint)Anxie ty (chief complaint)HLP (chief complaint) Other and unspecified hyperlipidemia Pain in joint involving lower leg 4 Gaston Dong. [address], [place], [place], [address] , [place]. [phone] Referring Provider: Franky Dunham [address], [place], [place], [address]. tel:[phone] OFFICE/OUTPA TIENT VISIT, [facility], [address], [place], [place], [address], [place] tel:[phone] [facility] HLP (chief complaint)chron ic pain (chief complaint)anxie ty (chief complaint)HTN (chief complaint)CAD (chief complaint)GERD (chief complaint) Hypothyroidism CAD, Eek VesselHyperten jayleen, UnspecifiedCHR ONIC PAIN NEC 4 Gaston Pickett [address], [address], [place], [place], [address] , [place]. tel:[phone] Referring Provider: Iker Feldman, [address], [place], [place], [address]. tel:[phone] OFFICE/OUTPA TIENT VISIT, [facility], [address], [place], [place], [address], [place] [phone] [facility] chronic pain (chief complaint)anxie ty (chief complaint) Hypothyroidism Pain in joint involving lower leg 4 Gaston Dong. [address], [place], [place], [address] , [place]. tel:[phone] Referring Provider: Franky Dunham [address], [place], [place], [address]. tel:[phone] OFFICE/OUTPA TIENT VISIT, [facility], [address], [place], [place], [address], [place] tel:[phone] [facility] chronic pain (chief complaint)anxie ty (chief complaint)GERD (chief complaint)CAD (chief complaint) Pain in joint involving lower legCAD, Eek VesselAcute gastric ulcer without mention of hemorrhage or perforation, with obstructionHyp othyroidism 4 Gaston Dong. [address], [place], [place], [address] , [place]. [phone] Referring Provider: Franky Dunham [address], [place], [place], [address]. tel:[phone] OFFICE/OUTPA TIENT VISIT, [facility], [address], [place], [place], [address], [place] [phone] [facility] chornic pain (chief complaint)anxie ty (chief complaint)HTN (chief complaint) CHRONIC PAIN NECHypertensio n, Unspecified 4 Gaston Dong. [address], [place], [place], [address] , [place]. [phone] Referring Provider: Iker Feldman [address], [place], [place], [address]. tel:[phone] OFFICE/OUTPA TIENT VISIT, [facility], [address], [place], [place], [address], [place] tel:[phone] [facility] GERD (chief complaint)chorn ic pain (chief complaint)anxie ty (chief complaint) GERDCHRONIC PAIN NEC 4 Gaston Dong. [address], [place], [place], [address] , [place]. tel:[phone] Referring Provider: Iker Feldman, [address], [place], [place], [address]. tel:[phone] OFFICE/OUTPA TIENT VISIT, [facility], [address], [place], [place], [address], [place] tel:[phone] [facility] gastric ulcer (chief complaint)chorn ic pain (chief complaint)anxie ty (chief complaint)hypot hyroidism (chief complaint) Acute gastritis (without mention of hemorrhage)CHR ONIC PAIN NECPain in joint involving lower legHypothyroid ism 4 Gaston Dong. [address], [place], [place], [address] , [place]. tel:[phone] Referring Provider: Franky Dunham [address], [place], [place], [address]. tel:[phone] OFFICE/OUTPA TIENT VISIT, [facility], [address], [place], [place], [address], [place] tel:[phone] [facility] chornic pain (chief complaint)anxie ty (chief complaint)gastr ic ulcer (chief complaint)CAD (chief complaint) Acute gastric ulcer without mention of hemorrhage or perforation, with obstructionPai n in joint involving lower legCAD, Eek [place]essel 4 Gaston Dong. [address], [place], [place], [address] , [place]. tel:[phone] Referring Provider: Franky Dunham [address], [place], [place], [address]. tel:[phone] OFFICE/OUTPA TIENT VISIT, [facility], [address], [place], [place], [address], [place] tel:[phone] [facility] HLP (chief complaint)CAD (chief complaint)hemat uria (chief complaint)chorn ic pain (chief complaint)anxie ty (chief complaint) Other and unspecified hyperlipidemia CAD, Eek VesselHEMATURI A NOSPain in joint involving lower leg 4 Gaston Dong. [address], [place], [place], [address] , [place]. [phone] Referring Provider: Franky Dunham [address], [place], [place], [address]. tel:[phone] OFFICE/OUTPA TIENT VISIT, [facility], [address], [place], [place], [address], [place] tel:[phone] [facility] hematuria (chief complaint)hypot hyroidism (chief complaint)chron ic painPt (chief complaint) HEMATURIA NOSCHRONIC PAIN NECHypothyroid ism 4 Gaston Dong. [address], [place], [place], [address] , [place]. [phone] Referring Provider: Franky Dunham [address], [place], [place], [address]. tel:[phone] OFFICE/OUTPA TIENT VISIT, [facility], [address], [place], [place], [address], [place] tel:[phone] [facility] chronic pain (chief complaint)HLP (chief complaint)Anxie ty (chief complaint)hemtu valerio (chief complaint) CHRONIC PAIN NECHypothyroid ismOther and unspecified hyperlipidemia HEMATURIA NOS 4 Gaston Dong. [address], [place], [place], [address] , [place]. [phone] Referring Provider: Franky Dunham [address], [place], [place], [address]. tel:[phone] OFFICE/OUTPA TIENT VISIT, [facility], [address], [place], [place], [address], [place] tel:[phone] [facility] CAD (chief complaint)chorn ic pain (chief complaint)anxie ty (chief complaint)Hypot hyroidism (chief complaint) Hypothyroidism CAD, Eek VesselOther and unspecified hyperlipidemia CHRONIC PAIN NEC 4 Gaston Dong. [address], [place], [place], [address] , [place]. tel:[phone] Referring Provider: Franky Dunham [address], [place], [place], [address]. tel:[phone] OFFICE/OUTPA TIENT VISIT, [facility], [address], [place], [place], [address], [place] tel:[phone] [facility] chronic pain (chief complaint)anxie ty (chief complaint) CHRONIC PAIN NEC 3 Gaston Dong. [address], [place], [place], [address] , [place]. tel:[phone] Referring Provider: Franky Dunham [address], [place], [place], [address]. tel:[phone] OFFICE/OUTPA TIENT VISIT, [facility], [address], [place], [place], [address], [place] tel:[phone] [facility] chronic pain (chief complaint)anxie ty (chief complaint) CHRONIC PAIN NECHypothyroid ismOther and unspecified hyperlipidemia 3 Gaston Dong. [address], [place], [place], [address] , [place]. tel:[phone] Referring Provider: Franky Dunham [address], [place], [place], [address]. tel:[phone] OFFICE/OUTPA TIENT VISIT, [facility], [address], [place], [place], [address], [place] tel:[phone] [facility] hypothyroidism (chief complaint)Chron ic pain (chief complaint)anxie ty (chief complaint) Hypothyroidism Other and unspecified hyperlipidemia CAD, Eek Vessel 3 Gaston Dong. [address], [place], [place], [address] , [place]. [phone] Referring Provider: Franky Dunham [address], [place], [place], [address]. tel:[phone] OFFICE/OUTPA TIENT VISIT, [facility], [address], [place], [place], [address], [place] tel:[phone] [facility] chronic pain (chief complaint)anxie ty (chief complaint) CHRONIC PAIN NECHypothyroid ismOther and unspecified hyperlipidemia 3 Gaston Dong. [address], [place], [place], [address] , [place]. [phone] Referring Provider: Franky Dunham [address], [place], [place], [address]. tel:[phone] OFFICE/OUTPA TIENT VISIT, [facility], [address], [place], [place], [address], [place] tel:[phone] [facility] Hypothyroidism (chief complaint)CAD (chief complaint)chron ic pain (chief complaint) Hypothyroidism CAD, Eek VesselCHRONIC PAIN NEC 3 Gaston Dong. [address], [place], [place], [address] , [place]. [phone] Referring Provider: Franky Dunham [address], [place], [place], [address]. tel:[phone] OFFICE/OUTPA TIENT VISIT, [facility], [address], [place], [place], [address], [place] tel:[phone] [facility] CAD (chief complaint)chron ic pain (chief complaint)anxie ty (chief complaint) CAD, Eek VesselCHRONIC PAIN NECInsomnia, Other 3 Gaston Dong. [address], [place], [place], [address] , [place]. tel:[phone] Referring Provider: Iker Feldman, [address], [place], [place], [address]. tel:[phone] OFFICE/OUTPA TIENT VISIT, [facility], [address], [place], [place], [address], [place] [phone] [facility] CAD (chief complaint)Chron ic pain (chief complaint)anxie ty (chief complaint) CAD, Eek VesselCHRONIC PAIN NECHypothyroid ism Bebeto-0 3 Gaston Dong. [address], [place], [place], [address] , [place]. tel:[phone] Referring Provider: Franky Dunham [address], [place], [place], [address]. tel:[phone] OFFICE/OUTPA TIENT VISIT, [facility], [address], [place], [place], [address], [place] [phone] [facility] chronic pain (chief complaint)anxie ty (chief complaint)Hypot hyroidism (chief complaint) Hypothyroidism CHRONIC PAIN NEC 0 3 Gaston Dong. [address], [address], [place], [place], [address] , [place]. tel:[phone] Referring Provider: Iker Feldamn, [address], [place], [place], [address]. tel:[phone] OFFICE/OUTPA TIENT VISIT, [facility], [address], [place], [place], [address], [place] [phone] [facility] chornic pain (chief complaint)Anxie ty. (chief complaint)hypot hyroidism (chief complaint) Hypothyroidism CHRONIC PAIN NECRESTLESS LEGS SYNDROME Jun-0 3 Gaston Dong. [address], [address], [place], [place], [address] , [place]. tel:[phone] Referring Provider: Franky Dunham [address], [place], [place], [address]. tel:[phone] OFFICE/OUTPA TIENT VISIT, [facility], [address], [place], [place], [address], [place] tel:[phone] [facility] chronic pain (chief complaint)viral (chief complaint)Anxie ty (chief complaint) Viral Infection, UnspecifiedCHR ONIC PAIN NECHypothyroid ism 3 Gaston Dong. [address], [address], [place], [place], [address] , [place]. tel:[phone] Referring Provider: Iker Feldman, [address], [place], [place], [address]. tel:[phone] OFFICE/OUTPA TIENT VISIT, [facility], [address], [place], [place], [address], [place] tel:[phone] [facility] chronic pain (chief complaint)Anxie ty (chief complaint)hypot hyroidism (chief complaint)ED (chief complaint) Hypothyroidism CHRONIC PAIN NECErectile Dysfunction 3 Gaston Dong. [address], [address], [place], [place], [address] , [place]. [phone] Referring Provider: Franky Dunham [address], [place], [place], [address]. tel:[phone] OFFICE/OUTPA TIENT VISIT, [facility], [address], [place], [place], [address], [place] tel:[phone] [facility] hypothyroidism (chief complaint)chron ic pain (chief complaint) CHRONIC PAIN NECHypothyroid ismRESTLESS LEGS SYNDROME 3 Gaston Dong. [address], [address], [place], [place], [address] , [place]. tel:[phone] Referring Provider: Franky Dunham [address], [place], [place], [address]. tel:[phone] OFFICE/OUTPA TIENT VISIT, [facility], [address], [place], [place], [address], [place] tel:[phone] [facility] chronic pain (chief complaint)restl ess leg syndrome (chief complaint)anxie ty (chief complaint) CHRONIC PAIN NECRESTLESS LEGS SYNDROME 5 2 Gaston Dong. [address], [address], [place], [place], [address] , [place]. tel:[phone] Referring Provider: Iker Feldman, [address], [place], [place], [address]. tel:[phone] OFFICE/OUTPA TIENT VISIT, [facility], [address], [place], [place], [address], [place] tel:[phone] [facility] chronic pain (chief complaint)restl ess leg (chief complaint) RESTLESS LEGS SYNDROMECHRONI C PAIN NEC 2 Gaston Dong. [address], [address], [place], [place], [address] , [place]. [phone] Referring Provider: Franky Dunham [facility] [place], [address]. tel:[phone] OFFICE/OUTPA TIENT VISIT, [facility], [address], [place], [place], [address], [place] tel:[phone] [facility] chornic pain (chief complaint)anxie ty (chief complaint)insom alverto (chief complaint) Insomnia, OtherCHRONIC PAIN NECRESTLESS LEGS SYNDROME 0 2 [address] [facility] [facility] [place], [place], [address] , [place]. [phone] Referring Provider: Franky Dunham [facility] [address], [place], [place], [address]. tel:[phone] Family History Family Member Type Diagnosis Age At Onset Father Problem (finding) Cancer - colon CA Mother Problem (finding) Alive and well Brother Problem (finding) Coronary artery disease Brother Problem (finding) Other Payers Payer name Insurance type Covered libertarian ID Authoriza ticlaudette(s) [facility] [id number] Social History Type Description Quantity Date Captured [...] ordered Referral Referred To: Suzanne Beckham [address] [place], [place] [id number] Ordered: Referrals: Allopathic & Osteopathic Physicians : Urology. Suzanne Beckham. 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 He denies any urinary symptoms COPD1 Pt has COPD Pt i s [...] Pt denies any dysphagia or neck pain anxiety1 Pt has chronic a nxiety [...] any worsening pain. Pt denies any neuropathy kidney1 Pt has ? 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 Pt denies any hemoptysis, worsening [...] Pt had LDCT done and is ok GERD1 Pt has cervantes. Pt had EGD [...] has bladder C A Pt supposes to [facility] urology but his cezar was again canceled. Pt did call urology at [facility] who he used to see and they [...] A. Pt was referred to urology of [facility] and he tried to call for [...] with urology in one week for cysto anxiety1 Pt has chronic a nxiety and [...] doing ok. Pt denies any worsening pain pain Pt has chronic r ight [...] any chest pain Pt just saw his net architect and was cleared for another year. anxiety1 Pt has chronic a nxiety and insomnia. Pt takes xanax qhs PRn and doing ok, Pt denies any depression or any suicidal thought. 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 Pt needs EGD soon Pt denies any GERD COPD1 Pt has COPD Pt t akes incruse. Pt uses ventolin 1-2 per day Pt denies any hemoptysis, sob or cough pain Pt has chronic [...] chest pain pt denies any new complaints insomnia1 Pt has chronic a nxiety and [...] pain His BP is borderline high today chronic pain1 Pt has chronic r ight ankle pain Pt has arthritis Pt failed NSAID and ultram pt takes norco PRn for pain and doing ok emphysema1 Pt has emphysema . Pt takes [...] smoking. Pt denies any coughing or hemoptysis insomnia1 Pt has insomnia. Pt takes xanax qhs PRN and doing ok. Pt denies any depression or any suicidal thought. Pt denies any crying spells chronic pain1 Pt has chronic a nkle and leg pain. Pt denies any worsening pain. pt also has arthritis. Pt failed NSAID and ultram chronic pain1 Pt has chronic r ight ankle pain. Pt denies any worsening pain. Pt failed NSAID and ultram insomnia1 Pt takes xanax q hs PRN and doing ok. Pt denies any anxiety or depression or any suicidal thought CAD1 Pt has CAD with stent. Pt [...] recently. Pt has normal Urine output chronic pain Pt has chronic r ight [...] bladder CA. Cervantes pt has cervantes e everardoagus. pt takes omeprazole. Pt doing ok currently. [...] and he is seeing Dr. Junior in [place] and he will have the mass removed [...] Evaristo braun who is a urologist in [facility] who did the cysto and he told me the renal lesion is almost 100% sure a benign cyst. He did take the Ct to his radiologist over [facility] However, he is not in network with [facility] chronic pain1 Pt disla chronic ri ght ankle pain. Pt takes norco PRN for pain Pt failed NSAID insomnia1 Pt has chronic i nsomnia Pt takes xanax qhs PRn and doing ok renal 1 Pt just seen uro [facility]rennon in [facility]. He will do cystoscopy. pt has not done MRi yet chronic pain1 Pt has chronic r ight [...] much better Pt enmanuel any acute sob chronic pain Pt has [...] suicidal thought. Pt denies any crying spells. insomnia1 pt has insomnia. Pt takes xanax qhs PRN and doing ok CAD1 Pt has CAD with stent. Pt is seeing cardiology. Pt denies any chest pain. Pt takes baby ASA daily chronic pain Pt has chronic r ight ankle pain. Pt has history of fracture with arthritis. Pt failed NSADI, ultram. Pt takes norco PRN for pain and doing ok COPD1 Pt continues to smoke. Pt had [...] deneis any depression or any suicidal thought chronic pain1 Pt has chronic r ight ankle and foot pain. pt takes norco PRn for pain and doing ok insomnia1 Pt takes xanax q hs PRn and doing ok. 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 Pt is on omeparzole. Pt denies any GERD Pt will do EGD soon COPD1 Pt has mild copd . Pt states that incurse really helps. Pt uses venotlin 2-3 per day still but he feels much better in terms of breathing. Pt denies any acute sob. Pt still smoking about 1/2 PPD insomnia1 Pt has insomnia and anxiety. Pt takes xana qhs PRN and doing ok. Pt denies any suiciadl or homicidal thought sob pt feels mild ex ertional sob sometimes, especially when he has intercourse. Pt feels sob about maybe about once per day. Pt denies any acute sob chronic pain1 Pt has chronic r ight ankle pain Pt denies any worsening pain. Pt needs handicap parking. chrnoic pain Pt has chronic r ight [...] suicidal thought. Pt denies any cyring spells anxiety1 Pt has chronic a nxiety and insomnia Pt takes axnax PRN and doing ok. Pt denies any depression or any suicidal thought. Pt denies any cyring spells thyroid1 Pt has low thyro id. Pt takes synthroid. pt doing ok. PT needs refilled Barrett1 Pt has cervantes e brendan. Pt is on omeprazole. Pt has appointment with GI next month. Pt denies any GERD symtpoms or abd pain chronic pain1 Pt has chronic r [...] takes synthroid. Pt denies any other complaints CAD Pt has CAD with stent. Pt takes lisinopril, lipitor, coreg and doing ok. Pt denies any chest pain. Pt sees cardiology. Cervantes Pt has Cervantes. Pt takes omeprzole Pt denies any GERD or abd pain. Pt needs EGD next year insomnia1 pt has insomnia and anxiety Pt takes xanax qhs PRN Pt denies any depression or any suicidal thought chronic pain1 pt has chronic r ight ankle and foot pain. Pt denies any wrosening pain Pt takes norco RPN for pain and doing ok chronic pain1 Pt has chronic r ight lower extremity pain due to history of fracture. insomnia1 Pt has chronic i nsomnia and anxiety. Pt denies any depressin or any suicidal thought. P takes xanax PRN and doing ok hep C Pt had hep C [...] denies any depression or any suicidal thought. CAD Pt has CAD with stent. pt takes plavix, ASA, coreg, lipitor. His lipid profile is good. Pt denies any chest pain. Pt had benign stress test recently thyroid1 Pt has low thryo id Pt takes synthroid. TSH ok hep C Pt told me he disla d hep C but was successfully treated. No abd pain HLP Pt has CAD and H LP Pt is on lipitor. Pt denies any myalgia chronic pain Pt has chronic r ight ankle pain Pt takes norco PRN for pain Pt failed NSAID Pt denies any worsening pain insomnia1 Pt has insomnia. Pt takes xanax PRN qhs. Pt denies any depression or any suicidal thought Pt denies any crying spells emphysema1 Pt has mild COPD . Pt [...] to schedule for CT of chest but [facility] will not do it. Pt [...] or SOB Pt mainly smokes cigar now ED pt has ED. Pt disla s good libido. pt denies any testicular pain or nodule GERD1 Pt has helen cardona. Pt is on omepraozle. Pt just seen GI and was told continue omeprazole and next EGD 2017. Pt denies any GERD chronic pain1 Pt has chornic r ight ankle pain. Pt takes norco for pain PRN. Pt denies any worsening pain anxiety1 Pt has chronic i nsomnia and anxiety. Pt takes xanax PRN and doing ok Pt denies any suicidal or homicidal thought anxiety1 Pt has chronic a nxiety. Pt denies any depresion or any suicidal thought Pt denies any cyring spells chronic pain Pt has chronic r ight ankle pain. Pt has histroy of fracture right ankle area. Pt takes norco for pain. Pt doing ok Pt denies any worsening pain chronic pain Pt has chronic r ight [...] denies any cyring spells GERD1 Pt has Helen cardona. Pt is taking omeprazole. Pt denies any [...] Pt atkes xanax PRN and doing ok. anxiety1 Pt has chronic a nxiety and [...] PT denies any SOB chronic pain Pt has chronic r ight ankle pain. Pt takes norco for pain. Pt failed NSAID Pt denies any worsening pain chronic pain Pt c/o chronic r ight [...] spells Pt denie any feeling of hopelessness insomnia The patient pres ents for insomnia. [...] Pt takes omerpzole. Pt denies any GERD ankle pain Location: ankle. Additional information: Pt [...] denies any depression or any suicidal thought. HTN Pt takes lisinop ril 10 mg [...] denies any abd pain or GERD symptoms. hypothyroidism Pt takes synthro id. Pt denies any fatigue or chest pain or headache or palpitation anxiety Additional infor mation: Pt has chornic anixety. Pt denies any depression or any suicidal thought. Pt takes xanax qhs. hypothyroidism Pt takes synthro id. Pt denies any chest pain or any palpitation gERD Additional infor mation:Pt takes omeprazole. Pt has history of gastriculcer Pt denies any pain. pain Pt has chronic r ight ankle pain. Pt denies any worsening pain chronic apin Pt has chronic r ight ankle pain. Pt denies any worsening pain anxiety Additional infor mation: Pt has chronic anxiety and insomnia. Pt takes xanax qhs PRN. Pt denies any depression or any suicidalk thought. anxiety Additional infor mation: Pt has chronic insomnia and aniety. Pt takes xnax PRN. Pt denies any depression or any suicidal thought. chronic pain Pt has chronic r ight ankle pain. Pt denies any worsenign pain. Pt denies any change in quality of pain Instructions Date Instruction Additional Infor mation Quit smoking Related to Insom alverto Quit smoking Related to Malig nant neoplasm of bladder, unspecified Special diet education Related t o Body mass index (BMI) 27.0-27.9, adult Special diet education Related t o Body [...] Surveillance and Counseling Quit smoking Related to [place] tt's esophagus without dysplasia Prescribed Activity and Exercise Education Related to Dietary Surveillance and Counseling Prescribed Diet Educ ation/Lifestyle Education Regarding Diet Related to Dietary Surveillance and Counseling Quit smoking Related to Insom alverto Prescribed Activity and Exercise Education Related to Dietary Surveillance and Counseling Prescribed Diet Educ ation/Lifestyle Education Regarding Diet Related to Dietary Surveillance and Counseling Quit smoking Related to [place] tt's esophagus without dysplasia Quit smoking Related [...] Surveillance and Counseling exercise Related to CAD, Eek Vessel Assessments Type Assessment Date assessment Centrilobular emphysema 025 assessment Chronic pain syndrome assessment Malignant neoplasm of bladder, u nspecified assessment Hypothyroidism assessment Mixed hyperlipidemia assessment Encounter for general adult medi ezio exam w abnormal findings assessment Coronary artery dise [place] coronary artery w/o angina pectoris assessment GERD without esophagitis 2024 Mental Status Date Cognitive Assessment Orientation - [place] ed to time, place, person, situation.
--- OUTSIDE RECORDS SUMMARY | 2024-08-28 02:12 | XMS_ITS | Encounter Summary ---
Author Organization [facility] Address [address] [place] [address] Phone Care Team Providers Care Fryer Operator Name Role Phone Iker Feldman Primary Care Provider [phone] Juan Gresham MD Unavailable Hemant Delgado MD Unavailable Encounter Details Date Type Department Care Team (Late st Contact Info) Description 03/29/2021 Transcribe Orders [facility] Preop/Pacu II [address] [place] [address] Hemant Delgado MD #[address] [address] Pre-op testing (Primary Dx) Social History Tobacco [...] COVID-19? No / Unsure 03/29/2021 2:12 PM LIGHTHOUSE KEEPER documented as of this encounter Plan of Treatment Not on file documented as of this encounter Results * SARS-COV-2 BY MOLECULAR (04/25/2021 7:54 AM LIGHTHOUSE KEEPER) SARSCOV2 NOT DETECTED (Referen ce Range for this test is Not Detected ) [facility] THERMOFISHER FAST DX 04/25/2021 6:50 PM LIGHTHOUSE KEEPER [facility] Comment:This test was perfor med by a RT-PCR method. Other NASOPHARYNGEAL STRUCTURE / Unknown Non-Phlebotomy Collection / Unknown 04/25/2021 7:54 AM LIGHTHOUSE KEEPER 04/25/2021 8:44 AM LIGHTHOUSE KEEPER Narrative [facility] - 04/25/2021 6:50 PM LIGHTHOUSE KEEPER Authorized Fact Sheets about this test for providers and patients are available at: https://www.fda.gov/medical-devices/nlgtodlvz-zdcfyqthnk-rgtkcch-devices/emergen cy-us e-authorizations us Hemant Delgado MD MICROBIOLOGY - GENERAL ORDERABLE S Final Result [facility] [address] [place] [address], documented in this encounter Visit Diagnoses Diagnosis Pre-op testing- Primary Preoperative examination, unspecified documented in this encounter Care Teams Fryer Operator Relationship Specialty Start Date End Date Iker Feldman [address] [place] [address] PCP - General Family Medicine 12/05/17 Juan Gresham MD [address] [facility] [place] [address] [place] [address] Cardiovascular Disease - Cardiology 12/05/17 Hemant Delgado MD #2 [facility], [address] [address] Consulting Physician Urology 01/19/22 documented as of this encounter
--- OUTSIDE RECORDS SUMMARY | 2024-08-28 02:12 | XMS_ITS | Clinical Summary ---
Author Organization [facility] Address [address] [place] [address] Phone Care Team Providers Care Alodize Machine Helper Name Role Phone Iker Feldman Primary Care Provider [phone] Juan Gresham MD Unavailable Hemant Delgado MD [...] minutes as needed. Active ergocalciferol (VITAMIN D) 96857 UNIT Capsule Take 1 Capsule by mouth. [...] Comments Blood Pressure 138/74 01/19/2022 8:53 AM DELI CLERK Pulse 54 01/19/2022 8:53 AM DELI CLERK Temperature 36.4 C (97.6 F) 01/19/2022 8:53 AM DELI CLERK Respiratory Rate 18 01/19/2022 8:53 AM DELI CLERK Oxygen Saturation 98% 01/19/2022 8:53 AM DELI CLERK Inhaled Oxygen Concentration - - Weight 72.2 kg (159 lb 3.2 oz) 01/19/2022 8:53 A M DELI CLERK Height 174 cm (5' 8.5) 09/16/2021 11:49 [...] this topic Medical Devices Implanted Type Area Replanting Machine Operator Device Identifier Shelf Expiration Date Model / Serial / Lot Stent Ureteral 6fr 2.1fr 26cm 2 Pigtail Curve 2 Durometer Taper Tip Loprfl Graduated Polaris Ultra - [id number] Implanted:Qty : 1 on 03/19/2018 by Viviana Junior MD at [facility] IMPLANT Right: Ureter [employer] 10/03/2020 [id number] 0 / [id number] 0 / [id number] Stent Ureteral 6fr 2.1fr 24cm 2 Pigtail Curve 2 Durometer Taper Tip Loprfl Graduated Polaris Ultra - [id number] Implanted:Qty : 1 on 04/29/2021 by Hemant Delgado MD at [facility] IMPLANT Left: Ureter [employer] 01/12/2024 [id number] 0 / [id number] 0 / [id number] Stent Ureteral 6fr 2.1fr 24cm 2 Pigtail Curve 2 Durometer Taper Tip Loprfl Graduated [employer]aris Ultra - [id number] Implanted:Qty : 1 on 05/20/2021 by Hemant Delgado MD at [facility] IMPLANT Left: Ureter [employer] 02/04/2024 [id number] 0 / [id number] 0 / [id number] Stent Ureteral 6fr 2.1fr 24cm 2 Pigtail Curve 2 Durometer Taper Tip Loprfl Graduated Polaris Ultra - [id number] Implanted:Qty : 1 on 05/20/2021 by Hemant Delgado MD at [facility] IMPLANT Right: Ureter [employer] 02/04/2024 [id number] 0 / [id number] 0 / [id number] Stent Ureteral 6fr 2.1fr 28cm 2 Pigtail Curve 2 Durometer Taper Tip Loprfl Graduated [employer]aris Ultra - [id number] Implanted:Qty : 1 on 09/09/2021 by Hemant Delgado MD at [facility] IMPLANT Right: Ureter [employer] 02/08/2024 [id number] 0 / [id number] 0 / [id number] Explanted Type Area Replanting Machine Operator Device Identifier Shelf Expiration Date Model / Serial / Lot Stent Ureteral 6fr 2.1fr 24cm 2 Pigtail Curve 2 Durometer Taper Tip Loprfl Graduated [employer] Ultra - [id number] Implanted:Qty : 1 on 04/29/20[facility] Explanted:Qty : 1 on 05/20/2021 by [facility] IM[facility] Right: Ureter [address] 01/12/2024 [id number] 0 / [id number] 0 / [id number] Procedures Procedure Name Priority Date/Time Associated Diagnosis [...] Documents on File Type Date Recorded Patient Tufting Supervisor Expl anation Other Advance Directive 09/21/2021 3:35 [...] Medical Clearance fo r surgery Care Teams Alodize Machine Helper Relationship Specialty Start Date End Date Feldman Iker [address] [place] [address] PCP - General Family Medicine 12/05/17 Juan Gresham MD [address] [facility] [address] [place] [address] Cardiovascular Disease - Cardiology 12/05/17 Hemant Delgado MD #2 [facility] [address] [place] [address] Consulting Physician Urology 01/19/22
--- OUTSIDE RECORDS SUMMARY | 2024-08-28 02:12 | XMS_ITS | Clinical Summary ---
Author Organization [facility] [address] Address [address] [place] [address] Care Team Providers Care Wire Brusher Name Role Phone Iker Feldman MD Primary Care Provider [phone] Iker Feldman MD Unavailable [phone] Allergies Active Allergy Reactions Criticality Noted Date [...] 1 tablet (88 mcg total) by mouth inspector outside production before breakfast Active albuterol HFA (PROVENTIL HFA,VENTOLIN [...] needed for pain Active cholecalciferol (VITAMIN D-3) 25703 unit tablet Take 1 tablet (50,000 Units total) by mouth once a week Active carvediloL (COREG) 3.125 mg tabletIndications :Coronary artery disease involving [place]une coronary artery of picayune heart without angina pectoris Take 1 tablet (3.125 mg total) by mouth 2 (two) times a day with meals 180 tablet 3 4 Active clopidogreL (PLAVIX) 75 mg tabletIndications :Coronary artery disease involving [place] coronary artery of [place] heart without angina pectoris Take 1 tablet (75 mg total) by mouth daily 90 tablet 3 4 Active atorvastatin (LIPITOR) 40 mg tabletIndications :Coronary artery disease involving [place] coronary artery of [place] heart without angina pectoris Take 1 tablet (40 mg total) by mouth daily 90 tablet 3 4 Active nitroglycerin (NITROSTAT) 0.4 mg SL tabletIndications :Coronary artery disease involving picayune coronary artery of picayune heart without angina pectoris Place 1 tablet (0.4 mg total) under the tongue every 5 (five) minutes as needed for chest pain Up to 3 doses 25 tablet 4 Active lisinopriL (PRINIVIL,ZESTRIL ) 10 mg tabletIndications :Coronary artery disease involving pic[place]une coronary artery of picayune heart without angina pectoris TAKE ONE TABLET BY MOUTH DAILY 90 tablet 2 4 Active Active Problems Problem Noted Date Diagnosed Date Atherosclerosis of coronary artery 12/12/2013 Overview (06/15/2016): Coronary atherosclerosis Encounters Date Type Department Care Team Description 08/19/2024 Telephone [facility] Cardiology [address] [place] [address] Perri Lux NP preop form [...] on file Legal Sex 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 MEDICARE AD[facility]AGE [facility] MEDICARE ADVANTAGE IDPA Care Teams Wire Brusher Relationship Specialty Start Date End Date Iker Feldman MD PCP - General 06/09/16 Iker Feldman MD Family Medicine 03/26/17
--- OUTSIDE RECORDS SUMMARY | 2024-08-28 02:12 | XMS_ITS | Referral Summary ---
Author Organization [facility] [address] [facility] [address] Address [address] [place] [address] Care Team Providers Care Press Secretary Name Role Phone Iker Feldman MD Primary Care Provider [phone] Iker Feldman MD Unavailable [phone] Encounters Date Type Department Care Team Description 08/19/2024 Telephone [facility] Cardiology [address] [facility] [address] [place] [address] Perri Lux NP preop form [...] 1 tablet (88 mcg total) by mouth sorting livestock worker before breakfast Active albuterol HFA (PROVENTIL HFA,VENTOLIN [...] needed for pain Active cholecalciferol (VITAMIN D-3) 69813 unit tablet Take 1 tablet (50,000 Units total) by mouth once a week Active carvediloL (COREG) 3.125 mg tabletIndications :Coronary artery disease involving chinik coronary artery of chinik heart without angina pectoris Take 1 tablet (3.125 mg total) by mouth 2 (two) times a day with meals 180 tablet 3 4 Active clopidogreL (PLAVIX) 75 mg tabletIndications :Coronary artery disease involving chinik coronary artery of chinik heart without angina pectoris Take 1 tablet (75 mg total) by mouth daily 90 tablet 3 4 Active atorvastatin (LIPITOR) 40 mg tabletIndications :Coronary artery disease involving chinik coronary artery of chinik heart without angina pectoris Take 1 tablet (40 mg total) by mouth daily 90 tablet 3 4 Active nitroglycerin (NITROSTAT) 0.4 mg SL tabletIndications :Coronary artery disease involving chinik coronary artery of chinik heart without angina pectoris Place 1 tablet (0.4 mg total) under the tongue every 5 (five) minutes as needed for chest pain Up to 3 doses 25 tablet 4 Active lisinopriL (PRINIVIL,ZESTRIL ) 10 mg tabletIndications :Coronary artery disease involving chinik coronary artery of chinik heart without angina pectoris TAKE ONE TABLET [...] on file 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
--- OUTSIDE RECORDS SUMMARY | 2024-08-28 02:12 | XMS_ITS | Encounter Summary ---
Author Organization [facility] Address [address] [place] [address] Phone Care Team Providers Care Spiritual Minister Name Role Phone Iker Feldman Primary Care Provider [phone] Juan Gresham MD Unavailable Hemant Delgado MD Unavailable Encounter Details Date Type Department Care Team (Late st Contact Info) Description 05/16/2021 Transcribe Orders [facility] Preop/Pacu II 1 [place] [address] Hemant Delgado MD #[address] [address] Pre-op testing (Primary Dx) Social History Tobacco [...] COVID-19? No / Unsure 05/17/2021 11:10 AM RESIDENT PROGRAM SPECIALIST documented as of this encounter Plan of Treatment Not on file documented as of this encounter Results * SARS-COV-2 BY MOLECULAR (05/17/2021 11:13 AM RESIDENT PROGRAM SPECIALIST) SARSCOV2 NOT DETECTED (Referen ce Range for this test is Not Detected ) [facility] THERMOFISHER FAST DX 05/18/2021 11:52 AM RESIDENT PROGRAM SPECIALIST [facility] Comment:This test was perfor med by a RT-PCR method. Other NASOPHARYNGEAL STRUCTURE / Unknown Non-Phlebotomy Collection / Unknown 05/17/2021 11:13 AM RESIDENT PROGRAM SPECIALIST 05/17/2021 11:57 AM RESIDENT PROGRAM SPECIALIST Narrative [facility] - 05/18/2021 11:52 AM RESIDENT PROGRAM SPECIALIST Authorized Fact Sheets about this test for providers and patients are available at: https://www.fda.gov/medical-devices/vknlmwgiz-gluqlapzar-ctgdyky-devices/emergen cy-us e-authorizations us Hemant Delgado MD MICROBIOLOGY - GENERAL ORDERABLE S Final Result [facility] [address] [place] [address], documented in this encounter Visit Diagnoses Diagnosis Pre-op testing- Primary Preoperative examination, unspecified documented in this encounter Care Teams Spiritual Minister Relationship Specialty Start Date End Date Iker Feldman [address] [place] [address] PCP - General Family Medicine 12/05/17 Juan Gresham MD [address] [facility] [place] [address] [place] [address] Cardiovascular Disease - Cardiology 12/05/17 Hemant Delgado MD #2 [facility], [address] [address] Consulting Physician Urology 01/19/22 documented as of this encounter
--- OUTSIDE RECORDS SUMMARY | 2024-08-28 02:12 | XMS_ITS | Encounter Summary ---
Author Organization [facility] Address [address] [place] [address] Phone Care Team Providers Care Barrel Polisher Inside Name Role Phone Iker Feldman Primary Care Provider Juan Gresham MD Unavailable Hemant Delgado MD Unavailable Encounter Details Date Type Department Care Team (Late st Contact Info) Description 04/26/2021 Transcribe Orders [facility] Preop/Pacu II 1 [place] [address] Hemant Delgado MD #[address] [address] Pre-op testing (Primary Dx) Social History Tobacco [...] COVID-19? 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 MANAGER DISH documented as of this encounter Plan of Treatment Not on file documented as of this encounter Visit Diagnoses Diagnosis Pre-op testing- Primary Preoperative examination, unspecified documented in this encounter Care Teams Barrel Polisher Inside Relationship Specialty Start Date End Date Iker Feldman [address] [place] [address] PCP - General Family Medicine 12/05/17 Juan rGesham MD [address] [facility] [address] [place] [address] Cardiovascular Disease - Cardiology 12/05/17 Hemant Delgado MD #2 [facility] [address] [place] [address] Consulting Physician Urology 01/19/22 documented as of this encounter
--- NOTE | 2024-08-28 06:29 | WPDHPUPDATE1 ---
History and Physical Update Update Date/Time: 08/28/24 06:29 History and Physical has been reviewed, including an updated exam of the patient. There are NO changes in the patient's condition. Risks, benefits, and alternatives have been discussed and questions answered. Patient agrees to proceed with procedure.
[2024-08-28] MEDS: LACTATED RINGERS 1,000 ML 30 ML IV CONT ×2 (08:12→10:12)
--- NOTE | 2024-08-28 09:01 | P.PNAN_ITS ---
Anes - Initial Pre Proc Eval Procedure: Operation Date: 08/28/24 09:30 Proposed Procedures p Trans Urethral Resection Bladder Tumor with Gemcitabine Instillation - Vlad Gilliam MD s Cystoscopy, Bilateral Retrograde Pyelography - Vlad Gilliam MD Date/Time: 08/28/24 09:01 Surgeon: Vlad Gilliam MD Pre Op Diagnosis: Bladder Ca Patient Data Age: 69 Gender: M Height: 1.73 m Weight: 72.2 kg Last Vital Signs Temp 36.1 C L 08/28/24 07:50 Pulse 54 L 08/28/24 07:50 Resp 16 08/28/24 07:50 BP 126/68 08/28/24 07:50 Pulse Ox 98 08/28/24 07:50 O2 Del Method Room Air 08/28/24 07:50 Allergies Allergy/AdvReac Type Severity Reaction Status Date / Time propoxyphene Allergy Intermediate Hives Verified 08/28/24 08:06 Home Medications ?Medication ?Instructions ?Recorded ?Confirmed ?Type alprazolam 1 mg tablet (Xanax) 1 mg PO DAILY PRN Anxiety 09/14/20 08/20/24 History atorvastatin 40 mg tablet (Lipitor) 40 mg PO DAILY 09/14/20 08/28/24 History calcium phosphate,dibasic 77 50,000 tablet PO [id number] 09/14/20 08/28/24 History mg-vitamin D3 400 unit tablet carvedilol 3.125 mg tablet (Coreg) 3.125 mg PO BID 09/14/20 08/28/24 History clopidogrel 75 mg tablet (Plavix) 75 mg PO DAILY 09/14/20 08/28/24 History hydrocodone 10 mg-acetaminophen 1 tablet PO HS PRN Pain 09/14/20 08/20/24 History 325 mg tablet levothyroxine 88 mcg tablet 88 mcg PO DAILY 09/14/20 08/28/24 History (Synthroid) lisinopril 10 mg tablet (Zestril) 10 mg PO DAILY 09/14/20 08/28/24 History albuterol sulfate 90 mcg/actuation 2 puff inhalation QID PRN 05/03/21 08/20/24 History aerosol inhaler Shortness Of Breath nitroglycerin 0.4 mg sublingual 0.4 mg sublingual Q5-15M PRN Chest 05/03/21 08/20/24 History tablet Pain umeclidinium 62.5 mcg/actuation 1 inh inhalation DAILY 05/03/21 08/28/24 History blister powder for inhalation (Incruse Ellipta) aspirin 81 mg chewable tablet 81 mg PO DAILY 07/28/22 08/28/24 History hydrocodone 5 mg-acetaminophen 325 1 - 2 tablet PO Q6H PRN pain #30 09/22/22 08/20/24 Rx mg tablet tabs cephalexin 500 mg capsule 500 mg PO Q8H #9 caps 01/04/23 08/20/24 Rx hydrocodone 5 mg-acetaminophen 325 1 - 2 tablet PO Q6H PRN pain #20 01/04/23 08/20/24 Rx mg tablet tabs pantoprazole 40 mg tablet,delayed 20 mg PO QAM 08/20/24 08/28/24 History release Patient hx anesthesia problems: none Family hx anesthesia problems: none Results Review: All pre-operative results and documents have been reviewed as part of the pre- operative evaluation. [facility] Past Medical History Medical History Non-cardiac chest pain Gastroesophageal reflux disease Chronic obstructive pulmonary disease ST elevation myocardial infarction (STEMI) (07/2012) Restless leg syndrome Hepatitis C virus infection resolved after antiviral drug therapy Bladder cancer Continuous tobacco abuse Coronary artery disease Hypothyroidism Essential hypertension Hyperlipidemia Anxiety and depression Surgical History Surgical History History of cystoscopy Abnormal cystoscopy x8 Right eye trauma History of cardiac catheterization (08/01/12) Aspiration thrombectomy, PTCA, stent x2 in overlapping fashion in major diagonal branch. Per Dr. Gresham. Family History Family History Mother Acute myocardial infarction Leukemia Father Colon cancer Sibling Heart problem Social History Social History Social History: Surrogate medical decision maker: Jodee Álvarez, spouse. Code status: Full code. Smoking packs per day: 1 Smoking cigarettes per day: 20.0 Years smoked: 30 Smoking pack-years: 30.00 Smoking status: Former smoker Tobacco type: cigarettes, pipe and cigars Smoking end date: 03/12/94 Additional smoking assessment comments: QUIT MGARRCHEN 2002, SMOKES 2 CIGARS/DAY & PIPE WHEN OUT OF CIGARS Alcohol intake: current Drinks per week: 2 Alcohol use details: BEER Substance use: current Substance use type: marijuana Other substance usage details: 3 X WK Last use: 12/25/22 Lack of Transportation: No Lack of Food: Never True Current Housing: I Have Housing Concerned About Future Housing: No Difficulty Paying Gas/Electric Bills: No Difficulty Paying for Meds: No Currently Unemployed: No Education: High School Diploma/GED Difficulty w/ Childcare or Family Care: No Living arrangements: with family Spiritual care concerns: No Anes - Eval Final PreProcedure Day of Procedure 08/28/24 09:01 Patient weight: normal Heart: regular rate and rhythm Lungs: decreased breath sounds Airway: Mallampati scale class II Neurological: alert and oriented Last oral intake: >/= 8 hours ASA classification: IV Emergent: no Anesthetic plan: proceed Anesthesia type and monitoring: general LMA and standard monitoring Results Review: All pre-operative results and documents have been reviewed as part of the pre- operative evaluation. Informed Consent: The patient's anesthetic plan and its attendant risks and benefits were discussed with the patient/family/POA. Questions were solicited and answers provided to the satisfaction of the patient/family/POA.
[2024-08-28] MEDS: ceFAZolin 2 GM/D5W 50 ML 2 GM/50 ML BAG IVPB (09:11)
[2024-08-28] MEDS: LIDOCAINE 2% GEL UROJET 10 ML PKG MUCOUS MEM (09:17)
--- NOTE | 2024-08-28 09:37 | S_PTH ---
PATIENT: Bhanu Álvarez LOC: [facility] U#:[id number] AGE/SX: 69/M ROOM: RE08/28/[address]: Vlad Gilliam MD : 1955 BED: DIS: 08/28/2024 SPEC #: [id number] RECD: 08/28/24 10:38 STATUS: GAGE REQ #: [id number] ADAM: 08/28/24 09:[address]: Vlad Gilliam DEPT: [facility] Surgical RECD BY: Kelley Dozier ENTERED: 08/28/24 10:38 SP TYPE: Surgical OTHR DR: Iker Feldman MD Tissues: A - Bladder Tumor B - Bladder Tumor Procedures: Hematoxylin and Eosin Stain Gross and Microscopic Level 4
--- NOTE | 2024-08-28 10:08 | P.OP_ITS ---
Procedure Note - Detailed Date of Procedure 08/28/24 Pre-op Diagnosis Bladder Ca Post-op Diagnosis Other (1. 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 Cystoscopy was undertaken with a 19 F rigid cystoscope. Urethra is without stricture with moderate lateral lobe hyperplasia. Bladder shows papillary neoplasm in the right posterior lateral bladder wall involving the right ureteral orifice. This measures approximately 3-4 cm. The remainder of the bladder mucosa is normal. Left retrograde pyelogram is without apparent filling defects. Right ureteroscopy with retrograde pyelography to ensure inspe ction of the entire collecting system shows recurrent papillary neoplasm and involving the infundibulum of the right mid and lower pole. This neoplasm has a characteristic appearance for a superficial low-grade urothelial carcinoma. This not involve the calices or renal pelvis. Biopsies of these areas were obtained and I ablated using tissue settings on the Edgardo laser and a 242 micron fiber. His this ablation was in the periphery of the collecting system I opted not to place ureteral stent. The renal pelvis and ureter were without obvious neoplasm. I then resected the bladder tumor with attempt made to include detrusor muscle for so for pathological evaluation of invasion. Base periphery were cauterized. Patient tolerated this procedure well. Estimated Blood Loss 0 Drains No Packing No Pathology None sent
--- NOTE | 2024-08-28 10:13 | P.OP_ITS ---
Procedure Note - Detailed Date of Procedure 08/28/24 Pre-op Diagnosis Bladder Ca Post-op Diagnosis Other (1. Bladder tumor 2. Urothelial carcinoma pelvis) Procedure Performed Gemcitabine installation Surgeon Vlad Gilliam MD Anesthesia General Description of Procedure With the patient in the supine position, a 16F Titus catheter is placed using sterile technique. Using a protective facemask, gown and double layer of gloves Gemcitabine 2gm in 100cc saline is administered through the catheter/into the b ladder. The catheter is then plugged. Patient was instructed to lie supine x20min, then to roll both the left and right x20 min. each. Total dwell time will be 60 min., after which the bladder will be drained and catheter removed. Estimated Blood Loss 0 Pathology None sent
[2024-08-28] MEDS: SODIUM CHLORIDE 0.9% IV 23.7 ML, GEMCITABINE HCL 1,000 MG BLADDER ×2 (10:33)
[2024-08-28] MEDS: fentaNYL CITRATE INJ (*CRX) 100 MCG/2 ML VIAL 25 MCG IV PUSH ×8 (10:36→11:41)
[2024-08-28] MEDS: SODIUM CHLORIDE 0.9% IV 50 ML BAG 150 ML IRRIGATION (11:40)
== END 2024-08-28 12:30 | disposition home or self-care (01) ==
PROVIDERS: PCP Emergency Medicine; Visit Provider Urology
PROC: 0TBB8ZZ Excision of Bladder, Via Natural or Artificial Opening Endoscopic (ICD-10-PCS; CPT 52235; principal; 2024-08-28 09:30)
PROC: (CPT 52352; 2024-08-28 09:30)
DX: C65.1 Malignant neoplasm of right renal pelvis (principal); C67.4 Malignant neoplasm of posterior wall of bladder; F17.290 Nicotine dependence, other tobacco product, uncomplicated
CPT/HCPCS: 52235; 52354; 51720; 74420; 88305; C1758; C1769; J0690; J1596; J2003; J2371; J2405; J2704; J3010; J7120; J9201; Q9966

== ENCOUNTER 2024-09-18 10:42 | Emergency (ER) | payer MEDICARE, MEDICAID, SELFPAY ==
[2024-09-18] VITALS (20 sets, daily range): BP systolic 118–131; BP diastolic 66–88; PULSE 47–73; RESP 12–26; TEMP 36.4–36.7; O2SAT 96–100
--- NOTE | ~2024-09-18 | CT_ITS ---
EXAMINATION: CTA chest PE protocol DATE: 09/18/2024 14:24 INDICATION: Chest pain and shortness of breath TECHNIQUE: Computed tomography (CT) pulmonary angiogram of the chest was performed with 100 mL Omnipa que-350 intravenous contrast. Additional 3D reconstructions utilizing coronal maximum intensity proje ction (MIP) were performed. Automated exposure control and iterative reconstruction technique were em ployed. The dose-length product was 227.99 mGy-cm. COMPARISON: Chest CT dated 07/24/2024 and 07/29/2019 FINDINGS: No pulmonary embolism. Stable appearance of chronic peripheral and lower lung predominant irregular s eptal line thickening with associated honeycombing consistent with usual interstitial pneumonia (UIP) pattern chronic interstitial lung disease. There is bronchial wall thickening with mucous plugging i n the basilar segments of the left lower lobe consistent with bronchitis. No focal airspace consolida tion, pulmonary edema or pleural effusion. Calcified nodules in the right lower lobe along with calci fied right hilar and mediastinal lymph nodes consistent with old granulomatous disease. Heart size is normal. Atherosclerotic coronary artery calcification. No pericardial effusion. Thoracic aorta is no rmal in caliber with no dissection. Single hepatic calcifications and numerous splenic calcifications consistent with old granulomatous disease. 1 cm cyst in the left hepatic lobe. Mild thoracic spondyl osis. IMPRESSION: 1. Bronchitis with bronchial wall thickening and mucous plugging in the left lower lobe. 2. Stable appearance of UIP pattern chronic interstitial lung disease. Reviewed, dictated and finalized at location A. IMPRESSION: 1. Bronchitis with bronchial wall thickening and mucous plugging in the left lo wer lobe. 2. Stable appearance of UIP pattern chronic interstitial lung disease.
--- NOTE | ~2024-09-18 | XR_ITS ---
CHEST RADIOGRAPH, PA AND LATERAL CLINICAL HISTORY: chest pain . COMPARISON: 07/28/2022 TECHNIQUE: PA and lateral views of the chest. FINDINGS The cardiomediastinal silhouette is unremarkable. The lungs are clear. IMPRESSION: No focal infiltrate or effusion. Reviewed, dictated and finalized at location A.
--- NOTE | 2024-09-18 10:46 | ECG_ITS ---
Test Date: 2024-09-18 10:54:09 Measurements Intervals [place] Rate: 55 P: 68 MA: 214 QRS: 27 QRSD: 121 T: 56 QT: 452 QTc: 434 Interpretive Statements SINUS BRADYCARDIA WITH FIRST DEGREE AV BLOCK POSSIBLE RIGHT VENTRICULAR CONDUCTION DELAY [RSR (QR) IN V1/V2] Compared to ECG 08/25/2024 08:59:16 First degree AV block now present Myocardial infarct finding no longer present Electronically Signed On 09-18-2024 13:15:42 CDT by Galindo Diego M.D.
--- OUTSIDE RECORDS SUMMARY | 2024-09-18 10:46 | XMS_ITS | Encounter Summary ---
Author Organization [facility] Address [address] [place] [address] Phone Care Team Providers Care Football Coach Name Role Phone Iker Feldman Primary Care Provider [phone] Juan Gresham MD Unavailable Hemant Delgado MD Unavailable Encounter Details Date Type Department Care Team (Late st Contact Info) Description 03/29/2021 Transcribe Orders [facility] Preop/Pacu II 1 [place] [address] Hemant Delgado MD #[address] [address] Pre-op testing (Primary Dx) Social History Tobacco [...] COVID-19? No / Unsure 03/29/2021 2:12 PM MORNING NEWS ANCHOR documented as of this encounter Plan of Treatment Not on file documented as of this encounter Results * SARS-COV-2 BY MOLECULAR (04/25/2021 7:54 AM MORNING NEWS ANCHOR) SARSCOV2 NOT DETECTED (Referen ce Range for this test is Not Detected ) [facility] THERMOFISHER FAST DX 04/25/2021 6:50 PM MORNING NEWS ANCHOR [facility] Comment:This test was perfor med by a RT-PCR method. Other NASOPHARYNGEAL STRUCTURE / Unknown Non-Phlebotomy Collection / Unknown 04/25/2021 7:54 AM MORNING NEWS ANCHOR 04/25/2021 8:44 AM MORNING NEWS ANCHOR Narrative [facility] - 04/25/2021 6:50 PM MORNING NEWS ANCHOR Authorized Fact Sheets about this test for providers and patients are available at: https://www.fda.gov/medical-devices/cupklqoew-lksohuhxqi-shyuszy-devices/emergen cy-us e-authorizations us Hemant Delgado MD MICROBIOLOGY - GENERAL ORDERABLE S Final Result [facility] [address] [place] [address], documented in this encounter Visit Diagnoses Diagnosis Pre-op testing- Primary Preoperative examination, unspecified documented in this encounter Care Teams Football Coach Relationship Specialty Start Date End Date Iker Feldman [address] [place] [address] PCP - General Family Medicine 12/05/17 Juan Gresham MD [address] [facility] [place] [address] [place] [address] Cardiovascular Disease - Cardiology 12/05/17 Hemant Delgado MD #2 [facility], [address] [address] Consulting Physician Urology 01/19/22 documented as of this encounter
--- OUTSIDE RECORDS SUMMARY | 2024-09-18 10:46 | XMS_ITS | Clinical Summary ---
Author Organization [facility] Address [address] [place] [address] Phone Care Team Providers Care Technical Document Writer Name Role Phone Iker Feldman Primary Care Provider [phone] Juan Gresham MD Unavailable Hemant Delgado MD [...] minutes as needed. Active ergocalciferol (VITAMIN D) 93378 UNIT Capsule Take 1 Capsule by mouth. [...] Comments Blood Pressure 138/74 01/19/2022 8:53 AM CARPET LOOM FIXER Pulse 54 01/19/2022 8:53 AM CARPET LOOM FIXER Temperature 36.4 C (97.6 F) 01/19/2022 8:53 AM CARPET LOOM FIXER Respiratory Rate 18 01/19/2022 8:53 AM CARPET LOOM FIXER Oxygen Saturation 98% 01/19/2022 8:53 AM CARPET LOOM FIXER Inhaled Oxygen Concentration - - Weight 72.2 kg (159 lb 3.2 oz) 01/19/2022 8:53 A M CARPET LOOM FIXER Height 174 cm (5' 8.5) 09/16/2021 11:49 AM CDT Body Mass Index 23.85 09/16/2021 11:49 AM CDT Plan of Treatment Health Maintenance Due Date Last Done Comments Hepatitis C Virus (HCV) Screening 1955 TdaP Immunization 1955 Cologuard 1998 Colonoscopy 1998 Colorectal Cancer Screening 1998 Immunochemical Fecal Occult Blood 1998 Pneumococcal Immunization (50+ years) (2 of 2 - PCV) 03/09/2015 03/09/2014 SARS-COV-2 Immunization ( - season) 2023 12/30/2021, 05/09/2021, 12/10/2020, Additional history exists Influenza Immunization (#1) 11/10/202411/10, 11/17/2020, 11/25/2019, Additional history exists Respiratory Syncytial [...] this topic Medical Devices Implanted Type Area Tape Cutter Device Identifier Shelf Expiration Date Model / Serial / Lot Stent Ureteral 6fr 2.1fr 26cm 2 Pigtail Curve 2 Durometer Taper Tip Loprfl Graduated Polaris Ultra - [id number] Implanted:Qty : 1 on 03/19/2018 by Viviana Junior MD at [facility] IMPLANT Right: Ureter [employer] 10/03/2020 [id number] 0 / [id number] 0 / [id number] Stent Ureteral 6fr 2.1fr 24cm 2 Pigtail Curve 2 Durometer Taper Tip Loprfl Graduated Polaris Ultra - [id number] Implanted:Qty : 1 on 04/29/2021 by Hemant Delgado MD at [facility] IMPLANT Left: Ureter [employer] 01/12/2024 [id number] 0 / [id number] 0 / [id number] Stent Ureteral 6fr 2.1fr 24cm 2 Pigtail Curve 2 Durometer Taper Tip Loprfl Graduated Polaris Ultra - [id number] Implanted:Qty : 1 on 05/20/2021 by Hemant Delgado MD at [facility] IMPLANT Left: Ureter [employer] 02/04/2024 [id number] 0 / [id number] 0 / [id number] Stent Ureteral 6fr 2.1fr 24cm 2 Pigtail Curve 2 Durometer Taper Tip Loprfl Graduated Polaris Ultra - [id number] Implanted:Qty : 1 on 05/20/2021 by Hemant Delgado MD at [facility] IMPLANT Right: Ureter [employer] 02/04/2024 [id number] 0 / [id number] 0 / [id number] Stent Ureteral 6fr 2.1fr 28cm 2 Pigtail Curve 2 Durometer Taper Tip Loprfl Graduated Polaris Ultra - [id number] Implanted:Qty : 1 on 09/09/2021 by Hemant Delgado MD at [facility] IMPLANT Right: Ureter [employer] 02/08/2024 [id number] 0 / [id number] 0 / [id number] Explanted Type Area Tape Cutter Device Identifier Shelf Expiration Date Model / Serial / Lot Stent Ureteral 6fr 2.1fr 24cm 2 Pigtail Curve 2 Durometer Taper Tip Loprfl Graduated [employer] Ultra - [id number] Implanted:Qty : 1 on 04/29/2021 by Hemant Delgado MD at [facility] Explanted:Qty : 1 on 05/20/2021 by Hemant Delgado MD at [facility] IMPLANT Right: Ureter [employer] 01/12/2024 [id number] 0 / [id number] 0 / [id number] Procedures Procedure Name Priority Date/Time Associated Diagnosis [...] Documents on File Type Date Recorded Patient Venetian Blind Tape Cutter Expl anation Other Advance Directive 09/21/2021 3:35 [...] Medical Clearance fo r surgery Care Teams Technical Document Writer Relationship Specialty Start Date End Date Feldman Iker [address] [place] [address] PCP - General Family Medicine 12/05/17 Juan Gresham MD [address] [facility] [address] [place] [address] Cardiovascular Disease - Cardiology 12/05/17 Hemant Delgado MD #2 [facility] [address] [place] [address] Consulting Physician Urology 01/19/22
--- OUTSIDE RECORDS SUMMARY | 2024-09-18 10:46 | XMS_ITS | Encounter Summary ---
Author Organization [facility] Address [address] [place] [address] Phone Care Team Providers Care Technology Advisor Name Role Phone Iker Feldman Primary Care Provider [phone] Juan Gresham MD Unavailable Hemant Delgado MD Unavailable Encounter Details Date Type Department Care Team (Late st Contact Info) Description 03/29/2021 Transcribe [facility] 1 [place] [id number] Hemant Delgado MD #[address] [address] Social History Tobacco Use Types Packs/Day Years [...] COVID-19? No / Unsure 03/29/2021 2:12 PM C T TECH documented as of this encounter Plan of Treatment Not on file documented as of this encounter Visit Diagnoses Not on filedocumented in this encounter Care Teams Technology Advisor Relationship Specialty Start Date End Date Iker Feldman [address] [facility] [place] [address] PCP - General Family Medicine 12/05/17 Juan Gresham MD [address] [facility] [address] [place] [address] Cardiovascular Disease - Cardiology 12/05/17 Hemant Delgado MD #2 [facility] [address] [place] [address] Consulting Physician Urology 01/19/22 documented as of this encounter
--- OUTSIDE RECORDS SUMMARY | 2024-09-18 10:46 | XMS_ITS | Referral Summary ---
Author Organization [facility] [address] [facility] [address] Address [address] [place] [address] Care Team Providers Care Senior Network Security Engineer Name Role Phone Iker Feldman MD Primary Care Provider [phone] Iker Feldman MD Unavailable [phone] Encounters Date Type Department Care Team Description 08/19/2024 Telephone [facility] Cardiology [address] [facility] [address] [place] [address] Perri Lux NP preop form [...] 1 tablet (88 mcg total) by mouth voice over announcer before breakfast Active albuterol HFA (PROVENTIL HFA,VENTOLIN [...] needed for pain Active cholecalciferol (VITAMIN D-3) 21339 unit tablet Take 1 tablet (50,000 Units total) by mouth once a week Active carvediloL (COREG) 3.125 mg tabletIndications :Coronary artery disease involving [place] coronary artery of [place] heart without angina pectoris Take 1 tablet (3.125 mg total) by mouth 2 (two) times a day with meals 180 tablet 3 4 Active clopidogreL (PLAVIX) 75 mg tabletIndications :Coronary artery disease involving [place] coronary artery of [place] heart without angina pectoris Take 1 tablet (75 mg total) by mouth daily 90 tablet 3 4 Active atorvastatin (LIPITOR) 40 mg tabletIndications :Coronary artery disease involving [place] coronary artery of [place] heart without angina pectoris Take 1 tablet (40 mg total) by mouth daily 90 tablet 3 4 Active nitroglycerin (NITROSTAT) 0.4 mg SL tabletIndications :Coronary artery disease involving [place] coronary artery of [place] heart without angina pectoris Place 1 tablet (0.4 mg total) under the tongue every 5 (five) minutes as needed for chest pain Up to 3 doses 25 tablet 4 Active lisinopriL (PRINIVIL,ZESTRIL ) 10 mg tabletIndications :Coronary artery disease involving [place] coronary artery of [place] heart without angina pectoris TAKE ONE TABLET [...] on file Legal Sex Male 9:18 PM GLASS PULVERIZER 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
--- OUTSIDE RECORDS SUMMARY | 2024-09-18 10:46 | XMS_ITS | Encounter Summary ---
Author Organization [facility] Address [address] [place] [address] Phone Care Team Providers Care Cigarette Tipper Name Role Phone Iker Feldman Primary Care Provider [phone] Juan Gresham MD Unavailable Hemant Delgado MD Unavailable Encounter Details Date Type Department Care Team (Late st Contact Info) Description 04/26/2021 Transcribe Orders [facility] Preop/Pacu II 1 [place] [address] Hemant Delgado MD #[address] [address] Pre-op testing (Primary Dx) Social History Tobacco [...] COVID-19? 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 MARINE PIPEFITTER documented as of this encounter Plan of Treatment Not on file documented as of this encounter Visit Diagnoses Diagnosis Pre-op testing- Primary Preoperative examination, unspecified documented in this encounter Care Teams Cigarette Tipper Relationship Specialty Start Date End Date Iker Feldman [address] [place] [address] PCP - General Family Medicine 12/05/17 Juan Gresham MD [address] [facility] [address] [place] [address] Cardiovascular Disease - Cardiology 12/05/17 Hemant Delgado MD #2 [facility] [address] [place] [address] Consulting Physician Urology 01/19/22 documented as of this encounter
--- OUTSIDE RECORDS SUMMARY | 2024-09-18 10:46 | XMS_ITS | Encounter Summary ---
Author Organization [facility] Address [address] [place] [address] Phone Care Team Providers Care Thread Milling Machine Set Up Operator Name Role Phone Iker Feldman Primary Care Provider [phone] Juan Gresham MD Unavailable Hemant Delgado MD Unavailable Encounter Details Date Type Department Care Team (Late st Contact Info) Description 05/16/2021 Transcribe Orders [facility] Preop/Pacu II 1 [place] [address] Hemant Delgado MD #[address] [address] Pre-op testing (Primary Dx) Social History Tobacco [...] COVID-19? No / Unsure 05/17/2021 11:10 AM TECHNICAL SOLUTIONS ENGINEER documented as of this encounter Plan of Treatment Not on file documented as of this encounter Results * SARS-COV-2 BY MOLECULAR (05/17/2021 11:13 AM TECHNICAL SOLUTIONS ENGINEER) SARSCOV2 NOT DETECTED (Referen ce Range for this test is Not Detected ) [facility] THERMOFISHER FAST DX 05/18/2021 11:52 AM TECHNICAL SOLUTIONS ENGINEER [facility] Comment:This test was perfor med by a RT-PCR method. Other NASOPHARYNGEAL STRUCTURE / Unknown Non-Phlebotomy Collection / Unknown 05/17/2021 11:13 AM TECHNICAL SOLUTIONS ENGINEER 05/17/2021 11:57 AM TECHNICAL SOLUTIONS ENGINEER Narrative [facility] - 05/18/2021 11:52 AM TECHNICAL SOLUTIONS ENGINEER Authorized Fact Sheets about this test for providers and patients are available at: https://www.fda.gov/medical-devices/ijaaxpqqi-uwugqaqopy-zbvyyyi-devices/emergen cy-us e-authorizations us Hemant Delgado MD MICROBIOLOGY - GENERAL ORDERABLE S Final Result [facility] [address] [place] [address], documented in this encounter Visit Diagnoses Diagnosis Pre-op testing- Primary Preoperative examination, unspecified documented in this encounter Care Teams Thread Milling Machine Set Up Operator Relationship Specialty Start Date End Date Iker Feldman [address] [place] [address] PCP - General Family Medicine 12/05/17 Juan Gresham MD [address] [facility] [address] [place] [address] Cardiovascular Disease - Cardiology 12/05/17 Hemant Delgado MD #2 [facility], [address] [address] Consulting Physician Urology 01/19/22 documented as of this encounter
--- OUTSIDE RECORDS SUMMARY | 2024-09-18 10:46 | XMS_ITS | Clinical Summary ---
Author Organization [facility] [address] Address [address] [place] [address] Care Team Providers Care Manager Creative Name Role Phone Iker Feldman MD Primary Care Provider [phone] Iker Feldman MD Unavailable [phone] Allergies Active Allergy Reactions Criticality Noted Date [...] 1 tablet (88 mcg total) by mouth carrier loader before breakfast Active albuterol HFA (PROVENTIL HFA,VENTOLIN [...] needed for pain Active cholecalciferol (VITAMIN D-3) 99520 unit tablet Take 1 tablet (50,000 Units total) by mouth once a week Active carvediloL (COREG) 3.125 mg tabletIndications :Coronary artery disease involving [place] coronary artery of [place] heart without angina pectoris Take 1 tablet (3.125 mg total) by mouth 2 (two) times a day with meals 180 tablet 3 4 Active clopidogreL (PLAVIX) 75 mg tabletIndications :Coronary artery disease involving [place] coronary artery of [place] heart without angina pectoris Take 1 tablet (75 mg total) by mouth daily 90 tablet 3 4 Active atorvastatin (LIPITOR) 40 mg tabletIndications :Coronary artery disease involving [place] coronary artery of [place] heart without angina pectoris Take 1 tablet (40 mg total) by mouth daily 90 tablet 3 4 Active nitroglycerin (NITROSTAT) 0.4 mg SL tabletIndications :Coronary artery disease involving [place] coronary artery of [place] heart without angina pectoris Place 1 tablet (0.4 mg total) under the tongue every 5 (five) minutes as needed for chest pain Up to 3 doses 25 tablet 4 Active lisinopriL (PRINIVIL,ZESTRIL ) 10 mg tabletIndications :Coronary artery disease involving [place] coronary artery of [place] heart without angina pectoris TAKE ONE TABLET BY MOUTH DAILY 90 tablet 2 4 Active Active Problems Problem Noted Date Diagnosed Date Atherosclerosis of coronary artery 12/12/2013 Overview (06/15/2016): Coronary atherosclerosis Encounters Date Type Department Care Team Description 08/19/2024 Telephone [facility] Medical Group Cardiology [address] [place] [address] Perri Lux NP preop form [...] on file Legal 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
--- OUTSIDE RECORDS SUMMARY | 2024-09-18 10:46 | XMS_ITS | Encounter Summary ---
Author Organization [facility] Address [address] [place] [address] Phone Care Team Providers Care Track Moving Machine Operator Name Role Phone Gaston Iker Primary Care Provider Juan Gresham MD Unavailable Hemant Delgado MD Unavailable Reason for Referral * Radiology Services (Routine) - Closed Specialty Diagnoses / Procedures Referred By Contac t Referred To Contact Radiology Diagnoses Pre-op testing Procedures EKG 12 LEAD Laurent Abebe APRN, CRNA #1 [place] [address] Phone: tel: fax: Referral ID Status Reason Start Date Expiration Date Visits Re quested Visits Authorized [id number] Closed 03/29/2021 1 1 ION OPERATOR Encounter Details Date Type Department Care Team (Late st Contact Info) Description 03/29/2021 Transcribe Orders [facility] Preop/Pacu II 1 [place] [id number] Laurent Abebe APRN, CRNA #1 [place] [address] Pre-op testing (Primary Dx) Social History Tobacco [...] COVID-19? No / Unsure 03/29/2021 2:12 PM STATION OPERATOR documented as of this encounter Plan of Treatment Not on file documented as of this encounter Results * HEMOGLOBIN & HEMATOCRIT (H&H) (04/25/2021 7:56 AM STATION OPERATOR) HEMOGLOBIN (HGB) 14.7 13.0 - 16.5 g/dL 04/25/2021 8:12 AM STATION OPERATOR [facility] HEMATOCRIT (HCT) 44.9 38.0 - 50.0 % 04/25/2021 8:12 AM STATION OPERATOR [facility] Blood Venipuncture / Unknown 04/25/2021 7:56 AM STATION OPERATOR 04/25/2021 8:07 AM STATION OPERATOR us Laurent Nathanatzmarek TANNER ROTARY DRUM CONTINUOUS PROCESS, ACUTE CARE CERTIFIED NURSING ASSISTANT HEMATOLOGY ORDERAB LES Final Result [facility] #1 [place] [address] * (ABNORMAL) BASIC METABOLIC PANEL W/ CALCIUM TOTAL (04/25/2021 7:56 AM STATION OPERATOR) SODIUM 133(L) 136 - 144 mmol/L 04/25/2021 8:32 AM STATION OPERATOR [facility] POTASSIUM 4.6 3.5 - 5.1 mmol/L 04/25/2021 8:32 AM [facility] CHLORIDE 99(L) 100 - 110 mmol/L 04/25/2021 8:32 AM [facility] CO2, VENOUS 27 22 - 32 mmol/L 04/25/2021 8:32 AM [facility] ANION GAP 11.6 8.0 - 20.0 mmol/L 04/25/2021 8:32 AM [facility] GLUCOSE 111(H) 70 - 99 mg/dL 04/25/2021 8:32 AM STATION OPERATOR [facility] BUN 11 8 - 23 mg/dL 04/25/2021 8:32 AM [facility] CREATININE, BLOOD 0.90 0.80 - 1.30 mg/dL 04/25/2021 8:32 AM [facility] BUN/CREATININE RATIO 12 12 - 20 ratio 04/25/2021 8:32 AM [facility] CALCIUM 9.4 8.9 - 10.3 mg/dL 04/25/2021 8:32 AM [facility] GFR, EST. NONAFRICAN >60 >=60 04/25/2021 8:32 AM [facility] GFR, EST. >60 >=60 04/25/2021 8:32 AM [facility] Comment: Creatinine Clearance is the preferred criteria for selecting drug dose adjustments in renally impaired patients. The GFR is provided as additional pertinent clinical information. GFR is reported in mL/min/1.73 sq m. IS THE PATIENT REQUIRED TO BE FASTING? No 04/25/2021 8:32 AM [facility] Blood Venipuncture / Unknown 04/25/2021 7:56 AM STATION OPERATOR 04/25/2021 8:07 AM STATION OPERATOR us Laurent Etelvina Purchatzke TANNER ROTARY DRUM CONTINUOUS PROCESS, ACUTE CARE CERTIFIED NURSING ASSISTANT CHEMISTRY ORDERABL ES Final Result [facility] [address] [place] [address] * EKG 12 LEAD (04/25/2021 7:43 AM STATION OPERATOR) Ventricular Rate BPM EXTERNAL EKG Atrial Rate BPM EXTERNAL EKG P-R Interval 194 ms EXTERNAL EKG QRS Duration 100 ms EXTERNAL EKG Q-T Duration 472 ms EXTERNAL EKG QTC CALCULATION 427 ms EXTERNAL EKG P [place] 79 degrees EXTERNAL EKG R [place] 49 degrees EXTERNAL EKG T [place] 67 degrees EXTERNAL EKG 04/25/2021 7:43 AM STATION OPERATOR Impressions EXTERNAL EKG - 04/25/2021 9:08 AM STATION OPERATOR Sinus bradycardia Abnormal R wave progression (?ASMI or lead location) Comparison Summary: Significant changes Summary: Abnormal ECG Compared with:03/27/2020 9:11 AM; 03/17/2019 9:55 AM No significant changes noted Confirmed by Lauren [email or web address] on 04/25/2021 9:08:06 AM Narrative Procedure Note Sofia Aguilar MD - 04/25/2021 IMPRESSION: Sinus bradycardia Abnormal R wave progression (?ASMI or lead location) Comparison Summary: Significant changes Summary: Abnormal ECG Compared with:03/27/2020 9:11 AM; 03/17/2019 9:55 AM No significant changes noted Confirmed by Lauren Mahmood [id number] on 04/25/2021 9:08:06 AM us Laurent Abebe TANNER ROTARY DRUM CONTINUOUS PROCESS, ACUTE CARE CERTIFIED NURSING ASSISTANT IMG ECG ORDERABLES Final Result EXTERNAL EKG documented in this encounter Visit Diagnoses Diagnosis Pre-op testing- Primary Preoperative examination, unspecified Pre-op testing Preoperative examination, unspecified documented in this encounter Care Teams Track Moving Machine Operator Relationship Specialty Start Date End Date Iker Feldman [address] [place] [address] PCP - General Family Medicine 12/05/17 Juan Gresham MD [address] [facility] [address] [place] [address] Cardiovascular Disease - Cardiology 12/05/17 Hemant Delgado MD #[address] [address] Consulting Physician Urology 01/19/22 documented as of this encounter
--- OUTSIDE RECORDS SUMMARY | 2024-09-18 10:46 | XMS_ITS | Continuity of Care Document ---
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 Name Role Phone Iker Feldman MD Unavailable Unavailable Allergies, Adverse Reactions, Alerts Substance Reaction Status Criticality PROPOXYPHENE NAPSYLATE Active No In formation acetaminophen Active No Information Medications Medication Instructions Dosage Effective Dates (start - stop) Status Comments hydrocodone 10 mg-acetaminophen 325 mg tablet take 1 by Oral route 4 times every day as needed for G89.4 1 - Active PRn for pain, avoid driving or operate machines Xanax 1 mg tablet take 1 tablet by oral route every bedtime as needed for F41.1 1 MG - Active PRN for insomnia [...] 20 MG - Active Procedures Procedure Date OFFICE/OUTPATIENT VISIT, EST PREV VISIT, EST, 65 [...] EST OFFICE/OUTPATIENT VISIT, EST OFFICE/OUTPATIENT VISIT, EST -2021 OFFICE/OUTPATIENT VISIT, EST OFFICE/OUTPATIENT VISIT, EST OFFICE/OUTPATIENT VISIT, EST OFFICE/OUTPATIENT VISIT, EST OFFICE/OUTPATIENT VISIT, EST OFFICE/OUTPATIENT VISIT, EST OFFICE/OUTPATIENT VISIT, EST -2021 PREV VISIT, EST, 65 & OVER OFFICE/OUTPATIENT VISIT, EST OFFICE/OUTPATIENT VISIT, EST OFFICE/OUTPATIENT VISIT, EST OFFICE/OUTPATIENT VISIT, EST OFFICE/OUTPATIENT VISIT, EST OFFICE/OUTPATIENT VISIT, EST OFFICE/OUTPATIENT VISIT, EST OFFICE/OUTPATIENT VISIT, EST OFFICE/OUTPATIENT VISIT, EST OFFICE/OUTPATIENT VISIT, EST OFFICE/OUTPATIENT VISIT, EST OFFICE/OUTPATIENT VISIT, EST OFFICE/OUTPATIENT VISIT, EST OFFICE/OUTPATIENT VISIT, EST PREV VISIT, EST, 65 & OVER -2020 OFFICE/OUTPATIENT VISIT, EST OFFICE/OUTPATIENT VISIT, EST OFFICE/OUTPATIENT [...] Diagnoses Date Provider Providers Copied on Encounter OFFICE/OUTPA TIENT VISIT, [facility], [address], [place], [place], [address], [place] tel:[phone] [facility] pain (chief complaint)anxie ty1 (chief complaint)anemi a1 (chief complaint)bladd er CA (chief complaint) AnemiaChronic pain syndromeMalign ant neoplasm of bladder, unspecifiedOth er insomnia 5 Gaston Pickett [address], [place], [place], [address] , [place]. tel:[phone] PREV VISIT, EST, 65 & OVER [facility], [address], [place], [place], [address], [place] tel:[phone] [facility] physical (chief complaint) Centrilobular emphysemaChron ic pain syndromeMalign ant neoplasm of bladder, unspecifiedHyp othyroidismMix ed hyperlipidemia Encounter for general adult medical exam w abnormal findingsCorona ry artery disease of [place] coronary artery w/o angina pectorisGERD without esophagitis 5 Gaston Pickett [address], [place], [place], [address] , [place]. tel:[phone] OFFICE/OUTPA TIENT VISIT, [facility], [address], [place], [place], [address], [place] tel:[phone] [facility] pain (chief complaint)anxie ty1 (chief complaint)COPD1 (chief complaint) Chronic pain syndromePrimar y insomniaCentri lobular emphysemaPerso nal history of nicotine dependenceMali gnant neoplasm of bladder, unspecified 5 Gaston Pickett [address], [place], [place], [address] , [place]. tel:[phone] OFFICE/OUTPA TIENT VISIT, [facility], [address], [place], [place], [address], [place] tel:[phone] [facility] pain (chief complaint)anxie ty1 (chief complaint) Chronic pain syndromePrimar y insomnia Jun-0 5 Gaston Dong. [address], [place], [place], [address] , [place]. tel:[phone] OFFICE/OUTPA TIENT VISIT, [facility], [address], [place], [place], [address], [place] tel:[phone] [facility] pain (chief complaint)anxie ty1 (chief complaint) Chronic pain syndromePrimar y insomnia 5 Gaston Dong. [address], [place], [place], [address] , [place]. tel:[phone] OFFICE/OUTPA TIENT VISIT, [facility], [address], [place], [place], [address], [place] tel:[phone] [facility] pain (chief complaint)anxie ty1 (chief complaint)COPD1 (chief complaint) Chronic pain syndromeCentri lobular emphysemaPrima ry insomnia 5 Gaston Dong. [address], [place], [place], [address] , [place]. tel:[phone] OFFICE/OUTPA TIENT VISIT, [facility], [address], [place], [place], [address], [place] tel:[phone] [facility] pain (chief complaint)anxie ty1 (chief complaint)thyro id1 (chief complaint) Chronic pain syndromePrimar y insomniaHypoth yroidism 5 Gaston Dong. [address], [place], [place], [address] , [place]. tel:[phone] OFFICE/OUTPA TIENT VISIT, [facility], [address], [place], [place], [address], [place] tel:[phone] [facility] pain (chief complaint)anxie ty1 (chief complaint) Chronic pain syndromePrimar y insomnia 4 Feldman Iker. [address], [place], [place], [address] , [place]. tel:[phone] OFFICE/OUTPA TIENT VISIT, [facility], [address], [place], [place], [address], [place] tel:[phone] [facility] pain (chief complaint)anxie ty1 (chief complaint)COPD1 (chief complaint) Chronic pain syndromePrimar y insomniaCentri lobular emphysema 4 Feldman Iker. [address], [place], [place], [address] , [place]. tel:[phone] OFFICE/OUTPA TIENT VISIT, [facility], [address], [place], [place], [address], [place] tel:[phone] [facility] pain (chief complaint)anxie ty1 (chief complaint) Chronic pain syndromePrimar y insomnia 4 Feldman Iker. [address], [place], [place], [address] , [place]. tel:[phone] OFFICE/OUTPA TIENT VISIT, [facility], [address], [place], [place], [address], [place] tel:[phone] [facility] pain (chief complaint)anxie ty1 (chief complaint) Chronic pain syndromePrimar y insomnia 4 Feldman Iker. [address], [place], [place], [address] , [place]. tel:[phone] OFFICE/OUTPA TIENT VISIT, [facility], [address], [place], [place], [address], [place] tel:[phone] [facility] pain (chief complaint)anxie ty1 (chief complaint)COPD1 (chief complaint) Centrilobular emphysemaChron ic pain syndromePrimar y insomnia 4 Feldman Iker. [address], [place], [place], [address] , [place]. tel:[phone] OFFICE/OUTPA TIENT VISIT, [facility], [address], [place], [place], [address], [place] tel:[phone] [facility] pain (chief complaint)anxie ty1 (chief complaint) Chronic pain syndromePrimar y insomnia 4 Gaston Dong. [address], [place], [place], [address] , [place]. tel:[phone] OFFICE/OUTPA TIENT VISIT, [facility], [address] [place], [place], [address], [place] tel:[phone] [facility] pain (chief complaint)anxie ty1 (chief complaint)COPD1 (chief complaint)bladd er Ca (chief complaint) Centrilobular emphysemaChron ic pain syndromePrimar y insomniaMalign ant neoplasm of bladder, unspecified 4 Gaston Dong. [address], [place], [place], [address] , [place]. tel:[phone] OFFICE/OUTPA TIENT VISIT, [facility], [address], [place], [place], [address], [place] tel:[phone] [facility] pain (chief complaint)anxie ty (chief complaint)thyro id1 (chief complaint)HLP (chief complaint) Chronic pain syndromeHypoth yroidismMixed hyperlipidemia Primary insomniaCentri lobular emphysema 4 Gaston Dong. [address], [place], [place], [address] , [place]. tel:[phone] PREV VISIT, EST, 65 & OVER [facility], [address], [place], [place], [address], [place] tel:[phone] [facility] physical (chief complaint) Encounter for general adult medical exam w abnormal findingsCentri lobular emphysemaChron ic pain syndromePrimar y insomniaHypoth yroidismMalign ant neoplasm of bladder, unspecifiedGER D w/o esophagitisCor onary artery disease of [place] coronary artery w/o angina pectoris 4 Feldman Iker. [address], [place], [place], [address] , [place]. tel:[phone] OFFICE/OUTPA TIENT VISIT, [facility], [address], [place], [place], [address], [place] tel:[phone] [facility] pain (chief complaint)anxie ty1 (chief complaint) Chronic pain syndromePrimar y insomnia May- 4 Feldman Iker. [address], [place], [place], [address] , [place]. tel:[phone] OFFICE/OUTPA TIENT VISIT, [facility], [address], [place], [place], [address], [place] tel:[phone] [facility] pain (chief complaint)anxie ty1 (chief complaint)COPD1 (chief complaint) Centrilobular emphysemaChron ic pain syndromePrimar y insomnia 4 Feldman Iker. [address], [place], [place], [address] , [place]. tel:[phone] OFFICE/OUTPA TIENT VISIT, [facility], [address], [place], [place], [address], [place] tel:[phone] [facility] pain (chief complaint)anxie y1 (chief complaint)hypot hyroidism1 (chief complaint) Hypothyroidism Chronic pain syndromePrimar y insomnia 4 Feldman Iker. [address], [place], [place], [address] , [place]. tel:[phone] OFFICE/OUTPA TIENT VISIT, [facility], [address], [place], [place], [address], [place] tel:[phone] [facility] pain (chief complaint)anxie ty1 (chief complaint) Chronic pain syndromePrimar y insomnia 3 Gaston Dong. [address], [place], [place], [address] , [place]. tel:[phone] OFFICE/OUTPA TIENT VISIT, [facility], [address], [place], [place], [address], [place] tel:[phone] [facility] pain (chief complaint)pain (chief complaint)anxie ty1 (chief complaint) Chronic pain syndromePrimar y insomnia Jan-3 0-202 3 Gaston Dong. [address], [place], [place], [address] , [place]. tel:[phone] OFFICE/OUTPA TIENT VISIT, [facility], [address], [place], [place], [address], [place] tel:[phone] [facility] pain (chief complaint)anxie ty1 (chief complaint) Chronic pain syndromePrimar y insomnia Nov-0 2- 3 Gaston Dong. [address], [place], [place], [address] , [place]. tel:[phone] OFFICE/OUTPA TIENT VISIT, [facility], [address], [place], [place], [address], [place] tel:[phone] [facility] pain (chief complaint)anxie ty1 (chief complaint)hypot hyroidism1 (chief complaint) Chronic pain syndromePrimar y insomniaHypoth yroidism Dec-0 4 3 Gaston Dong. [address], [place], [place], [address] , [place]. tel:[phone] OFFICE/OUTPA TIENT VISIT, [facility], [address], [place], [place], [address], [place] tel:[phone] [facility] pain (chief complaint)anxie ty1 (chief complaint) Chronic pain syndromePrimar y insomnia Nov-0 3 Gaston Dong. [address], [place], [place], [address] , [place]. tel:[phone] OFFICE/OUTPA TIENT VISIT, [facility], [address], [place], [place], [address], [place] tel:[phone] [facility] PAIN (chief complaint)anxie ty1 (chief complaint)bladd er CA1 (chief complaint) Chronic pain syndromePrimar y insomniaMalign ant neoplasm of bladder, unspecifiedAcq uired renal cystCentrilobu lar emphysema 3 Gaston Dong. [address], [place], [place], [address] , [place]. tel:[phone] OFFICE/OUTPA TIENT VISIT, [facility], [address], [place], [place], [address], [place] tel:[phone] [facility] pain (chief complaint)anxie ty1 (chief complaint)GERD1 (chief complaint) Cervantes's esophagus without dysplasiaChron ic pain syndromePrimar y insomnia 3 Gaston Dong. [address], [place], [place], [address] , [place]. tel:[phone] OFFICE/OUTPA TIENT VISIT, [facility], [address], [place], [place], [address], [place] tel:[phone] [facility] pain (chief complaint)anxie ty1 (chief complaint)hemae mesis1 (chief complaint)kidne y tumor1 (chief complaint) HematemesisChr onic pain syndromePrimar y insomniaMalign ant neoplasm of bladder, unspecified 3 Gaston Dong. [address], [place], [place], [address] , [place]. tel:[phone] OFFICE/OUTPA TIENT VISIT, [facility], [address], [place], [place], [address], [place] tel:[phone] [facility] hematemesis1 (chief complaint) HematemesisBar rett's esophagus without dysplasiaAther osclerotic heart disease of [place] coronary artery without angina pectoris 3 Gaston Dong. [address], [place], [place], [address] , [place]. tel:[phone] OFFICE/OUTPA TIENT VISIT, [facility], [address], [place], [place], [address], [place] tel:[phone] [facility] pain (chief complaint)insom nia1 (chief complaint) Chronic pain syndromePrimar y insomnia 3 Gaston Dong. [address], [place], [place], [address] , [place]. tel:[phone] PREV VISIT, EST, 65 & OVER [facility], [address], [place], [place], [address], [place] tel:[phone] [facility] physical (chief complaint) Encounter for general adult medical exam w abnormal findingsHypoth yroidismChroni c pain syndromeCentri lobular emphysemaEleva palomo prostate specific antigen [PSA]Asymptoma tic microscopic hematuriaMixed hyperlipidemia Cervantes's esophagus without dysplasiaPrima ry insomnia Jun- 3 Gaston Dong. [address], [place], [place], [address] , [place]. tel:[phone] OFFICE/OUTPA TIENT VISIT, [facility], [address], [place], [place], [address], [place] tel:[phone] [facility] pain (chief complaint)insom nia1 (chief complaint)HTN (chief complaint)thyro id1 (chief complaint)bladd er CA (chief complaint) Chronic pain syndromePrimar y insomniaHypoth yroidismEssent ial (primary) hypertensionMi xed hyperlipidemia Malignant neoplasm of bladder, unspecified 3 Gaston Dong. [address], [place], [place], [address] , [place]. tel:[phone] OFFICE/OUTPA TIENT VISIT, [facility], [address], [place], [place], [address], [place] tel:[phone] [facility] pain (chief complaint)insom nia1 (chief complaint)kidne y1 (chief complaint)COPD1 (chief complaint) Chronic pain syndromePrimar y insomniaOther specified disorder of kidneyCentrilo bular emphysema 3 Feldman Iker. [address], [place], [place], [address] , [place]. tel:[phone] OFFICE/OUTPA TIENT VISIT, [facility], [address], [place], [place], [address], [place] tel:[phone] [facility] pain (chief complaint)insom nia1 (chief complaint)tobac co1 (chief complaint)bladd er CA1 (chief complaint) Chronic pain syndromePrimar y insomniaMalign ant neoplasm of bladder, unspecifiedTob acco use 3 Gaston Dong. [address], [place], [place], [address] , [place]. tel:[phone] OFFICE/OUTPA TIENT VISIT, [facility], [address], [place], [place], [address], [place] tel:[phone] [facility] pain (chief complaint)insom nia1 (chief complaint) Chronic pain syndromePrimar y insomnia 2 Gaston Dong. [address], [place], [place], [address] , [place]. tel:[phone] OFFICE/OUTPA TIENT VISIT, [facility], [address], [place], [place], [address], [place] tel:[phone] [facility] pain (chief complaint)insom nia1 (chief complaint) Chronic pain syndromePrimar y insomnia 2 Feldman Iker. [address], [place], [place], [address] , [place]. tel:[phone] OFFICE/OUTPA TIENT VISIT, [facility], [address], [place], [place], [address], [place] tel:[phone] [facility] pain (chief complaint)insom nia1 (chief complaint)barre tt1 (chief complaint) Chronic pain syndromePrimar y insomniaBarret t's esophagus without dysplasiaMalig nant neoplasm of bladder, unspecified 2 Gaston Iker. [address], [place], [place], [address] , [place]. tel:[phone] OFFICE/OUTPA TIENT VISIT, [facility], [address], [address], [place] tel:[phone] [facility] pain (chief complaint)insom nia1 (chief complaint)COPD1 (chief complaint)thyro id1 (chief complaint) Chronic pain syndromeBarret t's esophagus without dysplasiaPrima ry insomniaHypoth yroidismCentri lobular emphysema 2 Feldman Iker. [address], [place], [place], [address] , [place]. tel:[phone] OFFICE/OUTPA TIENT VISIT, [facility], [address], [address], [place] tel:[phone] [facility] pain (chief complaint)insom nia1 (chief complaint)CAD (chief complaint) Coronary artery disease of [place] coronary artery w/o angina pectorisChroni c pain syndromePrimar y insomnia 2 Feldman Iker. [address], [place], [place], [address] , [place]. tel:[phone] OFFICE/OUTPA TIENT VISIT, [facility], [address], [place], [place], [address], [place] tel:[phone] [facility] pain (chief complaint)insom nia1 (chief complaint) Chronic pain syndromePrimar y insomnia 2 Feldman Iker. [address], [place], [place], [address] , [place]. tel:[phone] OFFICE/OUTPA TIENT VISIT, [facility], [address], [address], [place] tel:[phone] [facility] pain (chief complaint)insom nia1 (chief complaint) Chronic pain syndromePrimar y insomnia 2 Feldman Iker. [address], [place], [place], [address] , [place]. tel:[phone] OFFICE/OUTPA TIENT VISIT, EST [facility], [address], [place], [place], [address], [place] tel:[phone] [facility] pain (chief complaint)insom nia1 (chief complaint)[place] tt1 (chief complaint)renal CA (chief complaint) Polyp of colonBarrett's esophagus without dysplasiaInsom niaChronic pain syndromeCa of left kidney, except renal pelvis 2 Feldman Iker. [address], [place], [place], [address] , [place]. tel:[phone] OFFICE/OUTPA TIENT VISIT, EST [facility], [address], [place], [place], [address], [place] tel:[phone] [facility] pain (chief complaint)insom nia1 (chief complaint)vitam in D (chief complaint)colon polyp (chief complaint)emphy sema1 (chief complaint) Chronic pain syndromeInsomn iaVitamin D deficiencyPoly p of colonEmphysema 2 Gaston Iker. [address], [place], [place], [address] , [place]. tel:[phone] PREV VISIT, EST, 65 & OVER [facility], [address], [place], [place], [address], [place] tel:[phone] [facility] physical (chief complaint) Hyperlipidemia Chronic pain syndromeMalign ant neoplasm of bladder, unspecifiedBar rett's esophagus without dysplasiaEmphy semaFolate deficiencyHypo calcemiaHypoth yroidismInsomn iaEncounter for general adult medical exam w abnormal findings 2 Gaston Iker. [address], [place], [place], [address] , [place]. tel:[phone] OFFICE/OUTPA TIENT VISIT, EST [facility], [address], [place], [place], [address], [place] tel:[phone] [facility] pain (chief complaint)insom nia1 (chief complaint)bladd er tumor1 (chief complaint)thyro id1 (chief complaint)CAD1 (chief complaint) Chronic pain syndromeInsomn iaMalignant neoplasm of bladder, unspecifiedHyp erlipidemiaHyp othyroidism 2 Gsaton Pickett [address], [place], [place], [address] , [place]. tel:[phone] OFFICE/OUTPA TIENT VISIT, [facility], [address], [address], [place] tel:[phone] [facility] pain (chief complaint)bladd er CA (chief complaint)tobac co (chief complaint)insom nia1 (chief complaint)GERD1 (chief complaint) Chronic pain syndromeInsomn iaBarrett's esophagus without dysplasiaMalig nant neoplasm of bladder, unspecifiedTob acco use 2 Gaston Pickett [address], [place], [place], [address] , [place]. tel:[phone] OFFICE/OUTPA TIENT VISIT, [facility], [address], [place], [place], [address], [place] tel:[phone] [facility] pain (chief complaint)insom nia1 (chief complaint)tobac co1 (chief complaint)bladd er CA (chief complaint)GERD1 (chief complaint) Malignant neoplasm of bladder, unspecifiedIns omniaChronic pain syndromeTobacc o useBarrett's esophagus without dysplasia 1 Gaston Pickett [address], [place], [place], [address] , [place]. tel:[phone] OFFICE/OUTPA TIENT VISIT, [facility], [address], [address], [place] tel:[phone] [facility] pain (chief complaint)insom nia1 (chief complaint)GERD1 (chief complaint)bladd er CA1 (chief complaint) InsomniaChroni c pain syndromeBarret t's esophagus without dysplasiaMalig nant neoplasm of bladder, unspecified 1 Gaston Pickett [address], [place], [place], [address] , [place]. tel:[phone] OFFICE/OUTPA TIENT VISIT, [facility], [address], [address], [place] tel:[phone] [facility] pain (chief complaint)insom nia1 (chief complaint)thyro id1 (chief complaint)bladd er CA (chief complaint) InsomniaHypoth yroidismMalign ant neoplasm of bladder, unspecifiedChr onic pain syndrome 1 Feldman Iker. [address], [place], [place], [address] , [place]. tel:[phone] OFFICE/OUTPA TIENT VISIT, [facility], [address], [place], [place], [address], [place] tel:[phone] [facility] pain (chief complaint)insom nia1 (chief complaint)COPD1 (chief complaint)bladd er CA (chief complaint) InsomniaChroni c pain syndromeTobacc o useEmphysemaMa lignant neoplasm of bladder, unspecified Nov- 1 Feldman Iker. [address], [place], [place], [address] , [place]. tel:[phone] OFFICE/OUTPA TIENT VISIT, [facility], [address], [place], [place], [address], [place] tel:[phone] [facility] pain (chief complaint)insom nia1 (chief complaint)tobac co1 (chief complaint) Chronic pain syndromeInsomn iaTobacco use 1 Feldman Iker. [address], [place], [place], [address] , [place]. tel:[phone] OFFICE/OUTPA TIENT VISIT, [facility], [address] [place], [address], [place] tel:[phone] [facility] pain (chief complaint)insom nia1 (chief complaint)renal 1 (chief complaint) LeukocytosisAc nunakauyarmiut renal failureHypokal emiaInsomniaCh ronic pain syndromeEssent ial (primary) hypertension 1 Gaston Pickett [address], [place], [place], [address] , [place]. tel:[phone] OFFICE/OUTPA TIENT VISIT, [facility], [address], [place], [place], [address], [place] tel:[phone] [facility] pain1 (chief complaint)insom nia1 (chief complaint)barre tt (chief complaint)weigh t loss1 (chief complaint) Chronic pain syndromeInsomn iaBarrett's esophagus without dysplasiaAbnor mal weight loss 1 Gaston Dong. [address], [place], [place], [address] , [place]. tel:[phone] OFFICE/OUTPA TIENT VISIT, [facility], [address], [place], [place], [address], [place] tel:[phone] [facility] pain (chief complaint)insom na1 (chief complaint) Chronic pain syndromeInsomn ia 1 Gaston Dong. [address], [place], [place], [address] , [place]. tel:[phone] OFFICE/OUTPA TIENT VISIT, [facility], [address], [place], [place], [address], [place] tel:[phone] [facility] pain (chief complaint)insom nia1 (chief complaint)vitam in D (chief complaint) Chronic pain syndromeInsomn iaVitamin D deficiency, unspecified 1 Gaston Pickett [address], [place], [place], [address] , [place]. tel:[phone] OFFICE/OUTPA TIENT VISIT, [facility], [address], [place], [place], [address], [place] tel:[phone] [facility] pain (chief complaint)insom nia1 (chief complaint) Chronic pain syndromeInsomn ia 1 Gaston Dong. [address], [place], [place], [address] , [place]. tel:[phone] OFFICE/OUTPA TIENT VISIT, [facility], [address] [place], [address], [place] tel:[phone] [facility] pain (chief complaint)insom nia1 (chief complaint)COPD1 (chief complaint) Chronic pain syndromeEmphys emaInsomnia May- 1 Gaston Dong. [address], [place], [place], [address] , [place]. tel:[phone] PREV VISIT, EST, 65 & OVER [facility], [address], [place], [place], [address], [place] tel:[phone] [facility] physical (chief complaint) Encounter for general adult medical exam w abnormal findingsChroni c pain syndromeEmphys emaInsomniaHyp othyroidismCor onary artery disease of [place] coronary artery w/o angina pectorisMalign ant neoplasm of bladder, unspecified 1 Gaston Dong. [address], [place], [place], [address] , [place]. [phone] OFFICE/OUTPA TIENT VISIT, [facility], [address] [place], [address], [place] tel:[phone] [facility] pain (chief complaint)insom nia1 (chief complaint)COPD1 (chief complaint) EmphysemaChron ic pain syndromeInsomn ia 0 Gaston Dong. [address], [place], [place], [address] , [place]. tel:[phone] OFFICE/OUTPA TIENT VISIT, [facility], [address] [place], [address], [place] tel:[phone] [facility] pain1 (chief complaint)insom nia1 (chief complaint)hypot hyroidism1 (chief complaint)HLP (chief complaint) Hypothyroidism Hyperlipidemia Chronic pain syndromeInsomn ia 0 Gaston Dong. [address], [place], [place], [address] , [place]. tel:[phone] OFFICE/OUTPA TIENT VISIT, [facility], [address] [place], [address], tel:[phone] [facility] pain (chief complaint)insom nia1 (chief complaint)hypot hyroidism1 (chief complaint)CAD1 (chief complaint) Chronic pain syndromeInsomn iaCoronary artery disease of [place] coronary artery w/o angina pectorisHypoth yroidism 0 Gaston Dong. [address], [place], [place], [address] , [place]. tel:[phone] OFFICE/OUTPA TIENT VISIT, [facility], [address] [place], [address], [place] tel:[phone] [facility] pain (chief complaint)insom nia1 (chief complaint)tobac co1 (chief complaint) Chronic pain syndromeInsomn iaTobacco use 0 Gaston Dong. [address], [address] [place], [address] , [place]. tel:[phone] OFFICE/OUTPA TIENT VISIT, [facility], [address] [place], [address], [place] tel:[phone] [facility] pain (chief complaint)insom nia1 (chief complaint)tobac co (chief complaint)COPD1 (chief complaint) Chronic pain syndromeInsomn iaEmphysemaTob acco use 0 0 Gaston Dong. [address], [place], [place], [address] , [place]. tel:[phone] OFFICE/OUTPA TIENT VISIT, EST [facility], [address] [place], [address], [place] tel:[phone] [facility] pain (chief complaint)insom nia1 (chief complaint)tobac co1 (chief complaint) Chronic pain syndromeInsomn iaTobacco use 0 Gaston Dong. [address], [place], [place], [address] , . [phone] OFFICE/OUTPA TIENT VISIT, [facility], [address] [place], [address], [phone] [facility] pain (chief complaint)insom nia1 (chief complaint) Chronic pain syndromeInsomn iaMalignant neoplasm of bladder, unspecified 0 Gaston Iker. [address], [place], [place], [address] , [place]. tel:[phone] OFFICE/OUTPA TIENT VISIT, [facility], [address] [place], [address], tel:[phone] [facility] pain1 (chief complaint)anxie ty1 (chief complaint)COPD1 (chief complaint)bladd er CA1 (chief complaint) Chronic pain syndromeInsomn iaEmphysemaMal ignant neoplasm of bladder, unspecified 0 Gaston Dong. [address], [place], [place], [address] , [place]. tel:[phone] OFFICE/OUTPA TIENT VISIT, [facility], [address] [place], [address], [place] tel:[phone] [facility] pain (chief complaint)anxie ty1 (chief complaint)D (chief complaint) InsomniaChroni c pain syndromeVitami n D deficiency, unspecified 0 Gaston Dong. [address], [place], [place], [address] , [place]. tel:[phone] OFFICE/OUTPA TIENT VISIT, [facility], [address] [place], [address], [place] tel:[phone] [facility] pain (chief complaint)anxie ty1 (chief complaint) Chronic pain syndromeInsomn ia Apr-0 0 Gaston Dong. [address], [place], [place], [address] , [place]. tel:[phone] OFFICE/OUTPA TIENT VISIT, [facility], [address], [place], [place], [address], tel:[phone] [facility] pain1 (chief complaint)anxie ty1 (chief complaint)[place] tt1 (chief complaint)bladd er1 (chief complaint)HTn (chief complaint) Cervantes's esophagus without dysplasiaChron ic pain syndromeInsomn iaMalignant neoplasm of bladder, unspecifiedEss ential (primary) hypertension 0 Gaston Dong. [address], [place], [place], [address] , [place]. tel:[phone] Referring Provider: Iker Feldman [address] [place] [address] [place], [address]. tel:[phone] OFFICE/OUTPA TIENT VISIT, [facility], [address] [place], [address], [place] tel:[phone] [facility] copd (chief complaint)pain1 (chief complaint)anxie ty1 (chief complaint)[place] tt1 (chief complaint)CAD (chief complaint) InsomniaBarret t's esophagus without dysplasiaChron ic pain syndromeEmphys emaCoronary artery disease of [place] coronary artery w/o angina pectoris 0 Gaston Dong. [address], [place], [place], [address] , [place]. tel:[phone] Referring Provider: Iker Feldman [address] [facility] [address], [place], [place], [address]. tel:[phone] OFFICE/OUTPA TIENT VISIT, [facility], [address] [place], [address], [place] tel:[phone] [facility] anxiety1 (chief complaint)pain (chief complaint)bladd er CA (chief complaint)[place] tt1 (chief complaint)COPD1 (chief complaint) Malignant neoplasm of bladder, unspecifiedEmp hysemaBarrett' s esophagus without dysplasiaChron ic pain syndromeInsomn ia Andrew- 0 Gaston Dong. [address], [place], [place], [address] , [place]. tel:[phone] Referring Provider: Franky [address], [place], [place], [address]. tel:[phone] OFFICE/OUTPA TIENT VISIT, [facility], [address], [place], [place], [address], tel:[phone] [facility] chronic pain1 (chief complaint)anxie ty1 (chief complaint)HTN (chief complaint)bladd er CA (chief complaint) Chronic pain syndromeMalign ant neoplasm of bladder, unspecifiedIns omniaEssential (primary) hypertensionCo ronary artery disease of [place] coronary artery w/o angina pectoris 9 Gaston Dong. [address], [place], [place], [address] , [place]. tel:[phone] Referring Provider: Franky Dunham [facility] A, [place], [place], [address]. tel:[phone] PREV VISIT, EST, 65 & OVER [facility], [address], [place], [place], [address], [place] tel:[phone] [facility] physical (chief complaint) Encounter for general adult medical exam w abnormal findingsEmphys emaBarrett's esophagus without dysplasiaMalig nant neoplasm of bladder, unspecifiedChr onic pain syndromeHypoth yroidismCorona ry artery disease of [place] coronary artery w/o angina pectoris 9 Gaston Dong. [address], [place], [place], [address] , [place]. [phone] Referring Provider: Franky Dun[address], [place], [place], [address]. tel:[phone] OFFICE/OUTPA TIENT VISIT, [facility], [address] [place], [address], [place] tel:[phone] [facility] chronic pain1 (chief complaint)insom nia1 (chief complaint)COPD (chief complaint)HTN (chief complaint) EmphysemaChron ic pain syndromeInsomn iaCoronary artery disease of [place] coronary artery w/o angina pectoris 9 Feldman Iker. [address], [place], [place], [address] , [place]. tel:[phone] OFFICE/OUTPA TIENT VISIT, [facility], [address], [place], [place], [address], [place] tel:[phone] [facility] emphysema1 (chief complaint)chron ic pain1 (chief complaint)insom nia1 (chief complaint)GERD1 (chief complaint) EmphysemaChron ic pain syndromeInsomn iaBarrett's esophagus without dysplasia 9 Feldman Iker. [address], [place], [place], [address] , [place]. tel:[phone] OFFICE/OUTPA TIENT VISIT, [facility], [address], [place], [place], [address], [place] tel:[phone] [facility] chronic pain1 (chief complaint)insom nia1 (chief complaint) Chronic pain syndromeInsomn ia Oct- 9 Feldman Iker. [address], [place], [place], [address] , [place]. tel:[phone] OFFICE/OUTPA TIENT VISIT, [facility], [address], [place], [place], [address], [place] tel:[phone] [facility] chronic pain1 (chief complaint)insom nia1 (chief complaint)COPD1 (chief complaint)bladd er tumor1 (chief complaint) Chronic pain syndromeInsomn iaEmphysemaMal ignant neoplasm of bladder, unspecified 9 Feldman Iker. [address], [place], [place], [address] , [place]. tel:[phone] OFFICE/OUTPA TIENT VISIT, [facility], [address], [place], [place], [address], [place] tel:[phone] [facility] chronic pain (chief complaint)anxie ty1 (chief complaint)bladd er CA (chief complaint)lung (chief complaint) Chronic pain syndromeInsomn iaScreening for lung caMalignant neoplasm of bladder, unspecified 9 Gaston Dong. [address], [place], [place], [address] , [place]. tel:[phone] Referring Provider: Franky [address], [place], [place], [address]. tel:[phone] OFFICE/OUTPA TIENT VISIT, [facility], [address], [place], [address], [place] tel:[phone] [facility] vitamin D1 (chief complaint)thyro id1 (chief complaint)chron ic pain1 (chief complaint)insom nia1 (chief complaint) Hypothyroidism InsomniaChroni c pain syndromeVitami n D deficiency, unspecified 9 Gaston Dong. [address], [place], [place], [address] , [place]. tel:[phone] Referring Provider: Franky Dunham [address] [facility] [place], [address]. tel:[phone] OFFICE/OUTPA TIENT VISIT, [facility], [address] [place], [address], [place] tel:[phone] [facility] chronic pain (chief complaint)insom nia1 (chief complaint) Chronic pain syndromeInsomn ia 9 Gaston Dong. [address] [place], [address] , [place]. tel:[phone] Referring Provider: Franky Dunham [address], [place], [place], [address]. tel:[phone] OFFICE/OUTPA TIENT VISIT, [facility], [address] [place], [address], [place] tel:[phone] [facility] chronci pain1 (chief complaint)hypot hyroidism1 (chief complaint)CAD1 (chief complaint)lung (chief complaint) Chronic pain syndromeHypoth yroidismCorona ry artery disease of [place] coronary artery w/o angina pectorisScreen ing for lung caInsomnia 9 Gaston Dong. [address], [place], [place], [address] , [place]. tel:[phone] Referring Provider: Franky Dunham [address], [place], [place], [address]. tel:[phone] OFFICE/OUTPA TIENT VISIT, [facility], [address], [place], [place], [address], [place] tel:[phone] [facility] chronic pain1 (chief complaint)insom nia1 (chief complaint) Chronic pain syndromeInsomn ia 9 Gaston Dong. [address], [place], [place], [address] , [place]. tel:[phone] Referring Provider: Franky Dunham [facility] [address], [place], [place], [address]. tel:[phone] OFFICE/OUTPA TIENT VISIT, [facility], [address], [place], [place], [address], [place] tel:[phone] [facility] CAD1 (chief complaint)[place] tt1 (chief complaint)bladd er tumor1 (chief complaint)chron ic pain1 (chief complaint)insom nia1 (chief complaint) Cervantes's esophagus without dysplasiaChron ic pain syndromeCorona ry artery disease of [place] coronary artery w/o angina pectorisEmphys emaInsomnia 9 Gaston Dong. [address], [place], [place], [address] , [place]. tel:[phone] Referring Provider: Franky Dunham [address], [place], [place], [address]. tel:[phone] OFFICE/OUTPA TIENT VISIT, [facility], [address], [place], [place], [address], [place] tel:[phone] [facility] chronic pain (chief complaint)insom nia1 (chief complaint)bladd er CA1 (chief complaint) Chronic pain syndromeInsomn iaMalignant neoplasm of bladder, unspecified Dec-2 1-201 8 Gaston Dong. [address], [place], [place], [address] , [place]. tel:[phone] Referring Provider: Iker Feldman, [address], [place], [place], [address]. tel:[phone] OFFICE/OUTPA TIENT VISIT, EST [facility], [address], [place], [place], [address], [place] tel:[phone] [facility] chronic pain (chief complaint)anxie ty1 (chief complaint)renal lesion (chief complaint)[place] tt (chief complaint) InsomniaMalign ant neoplasm of bladder, unspecifiedChr onic pain syndromeBarret t's esophagus without dysplasia 8 Gaston Dong. [address], [place], [place], [address] , [place]. tel:[phone] Referring Provider: Iker Feldman [address] [facility] [address], [place], [place], [address]. tel:[phone] OFFICE/OUTPA TIENT VISIT, [facility], [address], [place], [place], [address], [place] tel:[phone] [facility] thyroid1 (chief complaint)chron ic pain1 (chief complaint)insom nia1 (chief complaint)COPD1 (chief complaint)bladd er tumor1 (chief complaint) EmphysemaInsom niaOther cystic kidney diseasesHypoth yroidismChroni c pain syndrome 8 Gaston Dong. [address], [place], [place], [address] , [place]. tel:[phone] Referring Provider: Franky Dunham [address], [place], [place], [address]. tel:[phone] PREV VISIT, EST, AGE 40-64 [facility], [address], [place], [place], [address], [place] tel:[phone] [facility] Physical (chief complaint) Encounter for general adult medical exam w abnormal findingsChroni c pain syndromeInsomn iaMalignant neoplasm of bladder, unspecifiedCor onary artery disease of [place] coronary artery w/o angina pectorisHypoth yroidismEmphys zuleima 8 Gaston Dong. [address], [place], [place], [address] , [place]. tel:[phone] Referring Provider: [address], [place], [place], [address]. tel:[phone] OFFICE/OUTPA TIENT VISIT, [facility], [address] [place], [address], [place] tel:[phone] [facility] bladder CA (chief complaint)kidne y cyst1 (chief complaint)chron ic pain1 (chief complaint)insom nia1 (chief complaint) Malignant neoplasm of bladder, unspecifiedOth er cystic kidney diseasesChroni c pain syndromeInsomn ia 0 8 Gaston Pickett [address], [place], [place], [address] , [place]. tel:[phone] Referring Provider: Franky Dun[address], [place], [place], [address]. tel:[phone] OFFICE/OUTPA TIENT VISIT, [facility], [address] [place], [address], [place] tel:[phone] [facility] chronic pain1 (chief complaint)anxie ty1 (chief complaint)COPD1 (chief complaint)renal 1 (chief complaint) EmphysemaChron ic pain syndromeBladde r disorder, unspecifiedIns omnia 8 Gaston Pickett [address], [place], [place], [address] , [place]. tel:[phone] OFFICE/OUTPA TIENT VISIT, [facility], [address] [place], [address], [place] tel:[phone] [facility] kidney1 (chief complaint)chron ic pain (chief complaint)insom nia1 (chief complaint) Chronic pain syndromeBladde r disorder, unspecifiedOth er cystic kidney diseases 8 Feldman Iker. [address], [place], [place], [address] , [place]. tel:[phone] Referring Provider: Franky Dunham [address] [facility] [address], [place], [place], [address]. tel:[phone] OFFICE/OUTPA TIENT VISIT, [facility], [address], [place], [place], [address], [place] tel:[phone] [facility] hypothyroidism (chief complaint)HLP (chief complaint)chron ic pain1 (chief complaint)insom nia1 (chief complaint) Hypothyroidism Hyperlipidemia Chronic pain syndromeInsomn ia 8 Gaston Dong. [address], [place], [place], [address] , [place]. tel:[phone] Referring Provider: Iker Feldman, [address] [facility] A, [place], [place], [address]. tel:[phone] OFFICE/OUTPA TIENT VISIT, [facility], [address] [place], [address], [place] tel:[phone] [facility] chronic pain (chief complaint)insom nia1 (chief complaint)CAD1 (chief complaint)COPD1 (chief complaint) Chronic pain syndromeCorona ry artery disease of [place] coronary artery w/o angina pectorisInsomn iaTobacco use 8 Gaston Dong. [address], [place], [place], [address] , [place]. tel:[phone] Referring Provider: Franky Dun[address], [place], [place], [address]. tel:[phone] OFFICE/OUTPA TIENT VISIT, [facility], [address] [place], [address], [place] tel:[phone] [facility] chronic pain (chief complaint)insom nia1 (chief complaint)tobac co1 (chief complaint) Chronic pain syndromeInsomn iaTobacco use 8 Gaston Dong. [address], [place], [place], [address] , [place]. tel:[phone] OFFICE/OUTPA TIENT VISIT, [facility], [address], [place], [place], [address], [place] tel:[phone] [facility] chronic pain1 (chief complaint)anxie ty1 (chief complaint)tobac co1 (chief complaint)[place] tt (chief complaint) Cervantes's esophagus without dysplasiaInsom niaChronic pain syndromeEmphys zuleima 8 Gaston Dong. [address], [place], [place], [address] , [place]. tel:[phone] Referring Provider: Iker Feldman, [address], [place], [place], [address]. tel:[phone] OFFICE/OUTPA TIENT VISIT, [facility], [address], [place], [place], [address], [place] tel:[phone] [facility] chronic pain1 (chief complaint)insom nia1 (chief complaint) InsomniaChroni c pain syndrome Fe 8 Gaston Dong. [address], [place], [place], [address] , [place]. tel:[phone] OFFICE/OUTPA TIENT VISIT, [facility], [address], [place], [place], [address], [place] tel:[phone] [facility] COPD1 (chief complaint)chron ic pain1 (chief complaint)insom nia1 (chief complaint)barre tt1 (chief complaint) Cervantes's esophagus without dysplasiaEmphy semaInsomniaCh ronic pain syndrome 8 Gaston Dong. [address], [place], [place], [address] , [place]. tel:[phone] Referring Provider: Iker Feldman [address], [place], [place], [address]. tel:[phone] OFFICE/OUTPA TIENT VISIT, [facility], [address], [place], [place], [address], [place] tel:[phone] [facility] sob (chief complaint)chron ic pain1 (chief complaint)insom nia1 (chief complaint) EmphysemaInsom niaChronic pain syndrome Dec- 7 Gaston Dong. [address], [place], [place], [address] , . [phone] Referring Provider: Franky Dunham [address], [place], [place], [address]. tel:[phone] OFFICE/OUTPA TIENT VISIT, [facility], [address], [place], [place], [address], [place] tel:[phone] [facility] chrnoic pain (chief complaint)anxei ty1 (chief complaint) Chronic pain syndromeInsomn ia 7 Gaston Pickett [address], [place], [place], [address] , [place]. [phone] Referring Provider: Franky Dunham [facility] A, [place], [place], [address]. tel:[phone] OFFICE/OUTPA TIENT VISIT, [facility], [address], [place], [place], [address], [place] tel:[phone] [facility] chronic pain1 (chief complaint)anxie ty1 (chief complaint)thyro id1 (chief complaint)[place] tt1 (chief complaint) InsomniaHypoth yroidismBarret t's esophagus without dysplasiaChron ic pain syndrome Dec- 7 Gaston Pickett [address], [place], [place], [address] , [place]. [phone] Referring Provider: Franky Dunham [address], [place], [place], [address]. tel:[phone] OFFICE/OUTPA TIENT VISIT, [facility], [address] [place], [address], [place] tel:[phone] [facility] chronic pain (chief complaint)anxie ty1 (chief complaint)ED (chief complaint) Chronic pain syndromeInsomn iaMale erectile dysfunction, unspecified Sep-0 7 Gaston [address], [place], [place], [address] , [place]. [phone] Referring Provider: Franky Dunham [address], [place], [place], [address]. tel:[phone] PREV VISIT, EST, AGE 40-64 [facility], [address], [place], [place], [address], [place] [phone] [facility] Physical (chief complaint) Encounter for general adult medical exam w abnormal findingsHypoth yroidismInsomn iaAtherosclero tic heart disease of [place] coronary artery without angina pectoris 7 Gaston Pickett [address], [place], [place], [address] , [place]. tel:[phone] Referring Provider: Franky Dunham [address], [place], [place], [address]. tel:[phone] OFFICE/OUTPA TIENT VISIT, EST [facility], [address], [place], [place], [address], [place] [phone] [facility] Cervantes (chief complaint)insom nia1 (chief complaint)chron ic pain1 (chief complaint)CAD (chief complaint) Cervantes's esophagus without dysplasiaChron ic pain syndromeAthero sclerotic heart disease of [place] coronary artery without angina pectorisInsomn ia 7 Gaston [address], [place], [place], [address] , [place]. tel:[phone] Referring Provider: Franky Dunham [address], [place], [place], [address]. tel:[phone] OFFICE/OUTPA TIENT VISIT, EST [facility], [address], [place], [place], [address], [place] tel:[phone] [facility] chronic pain1 (chief complaint)insom nia1 (chief complaint) Chronic pain syndromeInsomn ia 7 Gaston [address], [place], [place], [address] , [place]. tel:[phone] Referring Provider: Franky Dunham [address], [place], [place], [address]. tel:[phone] OFFICE/OUTPA TIENT VISIT, [facility], [address], [place], [place], [address], [place] tel:[phone] [facility] Center CAD (chief complaint)thyro id1 (chief complaint)hep C (chief complaint)chron ic pain1 (chief complaint)anxie ty1 (chief complaint) Hypothyroidism Atheroscleroti c heart disease of [place] coronary artery without angina pectorisInsomn iaHepatitis C 7 Gaston Pickett [address] [facility] [address], [place], [place], [address] , [place]. tel:[phone] Referring Provider: Franky Dunham [facility], [place], [place], [address]. tel:[phone] OFFICE/OUTPA TIENT VISIT, [facility], [address], [place], [place], [address], [place] tel:[phone] [facility] chronic pain (chief complaint)insom nia1 (chief complaint)hep C (chief complaint)HLP (chief complaint) InsomniaHyperl ipidemiaEncoun ter for screening for other viral diseasesHypoth yroidism 7 Gaston Pickett [address], [place], [place], [address] , [place]. tel:[phone] Referring Provider: Franky Dunham [address], [place], [place], [address]. tel:[phone] OFFICE/OUTPA TIENT VISIT, [facility], [address], [address], [place] tel:[phone] [facility] emphysema1 (chief complaint)chron ic pain (chief complaint)insom nia1 (chief complaint)CAD1 (chief complaint) COPDInsomniaCh ronic pain syndromeAthero sclerotic heart disease of [place] coronary artery without angina pectoris 7 Gaston Dong. [address], [place], [place], [address] , [place]. tel:[phone] Referring Provider: Franky Dunham [address], [place], [place], [address]. tel:[phone] OFFICE/OUTPA TIENT VISIT, [facility], [address], [place], [place], [address], [place] tel:[phone] [facility] chronic pain1 (chief complaint)insom nia1 (chief complaint)CAD (chief complaint)tobac co1 (chief complaint) InsomniaTobacc o useChronic pain syndromeAthero sclerotic heart disease of [place] coronary artery without angina pectoris Gaston Dong. [address], [place], [place], [address] , [place]. [phone] Referring Provider: Franky Dunham [address], [place], [place], [address]. tel:[phone] OFFICE/OUTPA TIENT VISIT, [facility], [address], [place], [place], [address], [place] tel:[phone] [facility] chronic pain (chief complaint)insom nia1 (chief complaint)tobac co1 (chief complaint) Chronic pain syndromeInsomn iaTobacco use 7 Gaston Dong. [address], [place], [place], [address] , [place]. tel:[phone] Referring Provider: Franky Dunham [address], [place], [place], [address]. tel:[phone] OFFICE/OUTPA TIENT VISIT, [facility], [address], [place], [place], [address], [place] tel:[phone] [facility] chronic pain1 (chief complaint)anxie ty1 (chief complaint)ED (chief complaint)GERD1 (chief complaint) Cervantes's esophagus without dysplasiaChron ic pain syndromeInsomn iaMale erectile dysfunction, unspecified 6 Gaston Dong. [address], [place], [place], [address] , [place]. tel:[phone] Referring Provider: Franky Dunham [address], [place], [place], [address]. tel:[phone] OFFICE/OUTPA TIENT VISIT, [facility], [address], [place], [place], [address], [place] tel:[phone] [facility] chronic pain (chief complaint)anxie ty1 (chief complaint) Chronic pain syndromeInsomn ia Jan- 6 Gaston Dong. [address], [place], [place], [address] , [place]. tel:[phone] Referring Provider: Franky Dunham [address], [place], [place], [address]. tel:[phone] OFFICE/OUTPA TIENT VISIT, [facility], [address], [place], [place], [address], [place] tel:[phone] [facility] chronic pain (chief complaint)anxie ty1 (chief complaint)hypot hyroidism (chief complaint)HTN (chief complaint) Chronic pain syndromeInsomn iaEssential (primary) hypertensionHy pothyroidism 6 Gaston Dong. [address], [place], [place], [address] , [place]. tel:[phone] Referring Provider: Franky Dunham [address], [place], [place], [address]. tel:[phone] OFFICE/OUTPA TIENT VISIT, [facility], [address], [place], [place], [address], [place] tel:[phone] [facility] chronic pain1 (chief complaint)anxie ty1 (chief complaint)GERD1 (chief complaint)HTN (chief complaint) Chronic pain syndromeBarret t's esophagus without dysplasiaEssen tial (primary) hypertensionAn xiolytic dependence Sep-3 0201 6 Gaston Dong. [address], [place], [place], [address] , [place]. tel:[phone] Referring Provider: Franky Dunham [address], [place], [place], [address]. tel:[phone] OFFICE/OUTPA TIENT VISIT, [facility], [address], [address], tel:[phone] [facility] chronic pain (chief complaint)anxie ty1 (chief complaint) Chronic pain syndromeAnxiol ytic dependence 6 Gaston Dong. [address], [place], [place], [address] , [place]. tel:[phone] Referring Provider: Iker Feldman, Franky [facility] [address], [place], [place], [address]. tel:[phone] OFFICE/OUTPA TIENT VISIT, [facility], [address] [place], [address], [place] tel:[phone] [facility] CAD (chief complaint)HLP (chief complaint)hypot hyroidism (chief complaint)chron ic pain (chief complaint) Atheroscleroti c heart disease of [place] coronary artery without angina pectorisAnxiol ytic dependenceHype rlipidemiaChro flores pain syndrome 6 Gaston Dong. [address], [facility] [address], [place], [place], [address] , [place]. tel:[phone] Referring Provider: Franky Dunham [facility] [place], [address]. tel:[phone] OFFICE/OUTPA TIENT VISIT, [facility], [address] [place], [address], [place] tel:[phone] [facility] chronic pain (chief complaint)insom nia1 (chief complaint)ED1 (chief complaint) Chronic pain syndromeInsomn iaOther male erectile dysfunctionCor onary artery disease of [place] coronary artery w/o angina pectoris 6 Gaston Pickett [address], [place], [place], [address] , [place]. tel:[phone] Referring Provider: Franky Dunham [facility], [place], [place], [address]. tel:[phone] OFFICE/OUTPA TIENT VISIT, [facility], [address], [place], [place], [address], [place] tel:[phone] [facility] chronic pain (chief complaint)anxie ty1 (chief complaint) Chronic pain syndromeAnxiol ytic dependence Bebeto-0 6 Gaston Dong. [address], [place], [place], [address] , [place]. tel:[phone] Referring Provider: Iker Feldman, Franky [address], [place], [place], [address]. tel:[phone] OFFICE/OUTPA TIENT VISIT, [facility], [address], [place], [place], [address], [place] tel:[phone] [facility] chronic pain (chief complaint)anxie ty1 (chief complaint)barre tt (chief complaint)CAD (chief complaint) Chronic pain syndromeBarret t's esophagus without dysplasiaCoron william artery disease of [place] coronary artery w/o angina pectorisEncoun ter for screening for malignant neoplasm of prostate Apr-2 6 Gaston Dong. [address], [place], [place], [address] , [place]. tel:[phone] Referring Provider: Franky Dunham [address], [place], [place], [address]. tel:[phone] OFFICE/OUTPA TIENT VISIT, [facility], [address], [address], [place] [phone] [facility] chronic pain (chief complaint)anxie ty1 (chief complaint)dizzi ness (chief complaint)anemi a1 (chief complaint) AnemiaDizzines sChronic pain syndrome Apr-0 6 Gaston Dong. [address], [place], [place], [address] , [place]. tel:[phone] Referring Provider: Franky Dunham [address], [place], [place], [address]. tel:[phone] OFFICE/OUTPA TIENT VISIT, [facility], [address], [place], [place], [address], [place] tel:[phone] [facility] chronic pain (chief complaint)anxie ty1 (chief complaint) Other insomniaChroni c pain syndrome 6 Gaston Dong. [address], [place], [place], [address] , [place]. tel:[phone] Referring Provider: Iker Feldman, [address], [place], [place], [address]. tel:[phone] OFFICE/OUTPA TIENT VISIT, [facility], [address], [place], [place], [address], [place] tel:[phone] [facility] GERD1 (chief complaint)HLP1 (chief complaint)chron ic pain (chief complaint)insom nia1 (chief complaint) Hyperlipidemia Chronic pain syndromeGERD without esophagitisHyp othyroidism 6 Gaston Dong. [address], [place], [place], [address] , [place]. tel:[phone] Referring Provider: Franky Dunham [address], [place], [place], [address]. tel:[phone] OFFICE/OUTPA TIENT VISIT, [facility], [address], [place], [place], [address], [place] tel:[phone] [facility] chronic pain (chief complaint)anxie ty1 (chief complaint)GERD1 (chief complaint)CAD (chief complaint) Chronic pain syndromeOther insomniaCorona ry artery disease of [place] coronary artery without angina pectorisHyperl ipidemia 5 Gaston Dong. [address], [place], [place], [address] , [place]. tel:[phone] Referring Provider: Franky Dunham [address], [place], [place], [address]. tel:[phone] OFFICE/OUTPA TIENT VISIT, [facility], [address], [place], [place], [address], [place] tel:[phone] [facility] right ankle pain (chief complaint)anxie ty1 (chief complaint) Chronic pain syndromeOther insomnia 5 Gaston Dong. [address], [place], [place], [address] , [place]. tel:[phone] Referring Provider: Iker Feldman, Franky [address], [place], [place], [address]. tel:[phone] OFFICE/OUTPA TIENT VISIT, [facility], [address], [place], [place], [address], [place] tel:[phone] [facility] ankle pain1 (chief complaint)insom nia1 (chief complaint) Secondary osteoarthritis , right ankle and footOther insomnia 5 Gaston Pickett [address], [place], [place], [address] , [place]. tel:[phone] Referring Provider: Franky Dunham [address], [place], [place], [address]. tel:[phone] OFFICE/OUTPA TIENT VISIT, [facility], [address], [place], [place], [address], [place] tel:[phone] [facility] ankle pain (chief complaint)insom alverto (chief complaint)CAD (chief complaint)gastr ic ulcer (chief complaint) Pain in right ankleOpioid dependence, uncomplicatedH ypertensive heart disease without heart failureChronic gastric ulcer without hemorrhage or perforationTob acco use 5 Gaston Pickett [address], [place], [place], [address] , [place]. [phone] Referring Provider: Franky Dunham [address], [place], [place], [address]. tel:[phone] OFFICE/OUTPA TIENT VISIT, [facility], [address], [place], [place], [address], [place] tel:[phone] [facility] HTN (chief complaint)gastr ic ulcer (chief complaint)insom alverto (chief complaint)hypot hyroidism (chief complaint) Insomnia, unspecifiedUns pecified hypothyroidism Unspecified essential hypertensionAc [place] gastric ulcer without mention of hemorrhage or perforation, with obstruction Nov-0 5 Gaston Dong. [address], [place], [place], [address] , [place]. [phone] Referring Provider: Iker Feldman, Franky [address], [place], [place], [address]. tel:[phone] OFFICE/OUTPA TIENT VISIT, [facility], [address], [place], [place], [address], [place] [phone] [facility] pain (chief complaint)anxie ty (chief complaint)hypot hyroidism (chief complaint)gERD (chief complaint) Insomnia, unspecifiedUns pecified hypothyroidism Unspecified essential hypertension Sep-3 5 Gaston Pickett [address], [place], [place], [address] , [place]. tel: [phone] Referring Provider: Franky Dunham [address], [place], [place], [address]. tel:[phone] OFFICE/OUTPA TIENT VISIT, [facility], [address], [place], [place], [address], [place] tel:[phone] [facility] chronic apin (chief complaint)anxie ty (chief complaint) Other chronic pain 5 Gaston Pickett [address], [place], [place], [address] , [place]. [phone] Referring Provider: Franky Dunham [address], [place], [place], [address]. tel:[phone] OFFICE/OUTPA TIENT VISIT, [facility], [address], [place], [place], [address], [place] tel:[phone] [facility] chronic pain (chief complaint)anxie ty (chief complaint) Ankle pain 5 Gaston Pickett [address], [place], [place], [address] , [place]. [phone] Referring Provider: Iker Feldman [address], [place], [place], [address]. tel:[phone] OFFICE/OUTPA TIENT VISIT, [facility], [address], [place], [place], [address], [place] [phone] [facility] chronic pain (chief complaint)anxie ty (chief complaint)hypot hyroidism (chief complaint) Hypothyroidism Pain in joint involving lower legInsomnia, OtherScreening for malignant neoplasms of the prostate 5 Gaston Dong. [address], [place], [place], [address] , [place]. [phone] Referring Provider: Iker Feldman, [address], [place], [place], [address]. tel:[phone] OFFICE/OUTPA TIENT VISIT, [facility], [address], [place], [place], [address], [place] tel:[phone] [facility] chronic pain (chief complaint)anxie ty (chief complaint)gastr ic ulcer (chief complaint)CAD (chief complaint) Insomnia, OtherCAD, [place] VesselAcute gastric ulcer without mention of hemorrhage or perforation, with obstructionOpi oid type dependence, unspecified use Jun- 5 Gaston Dong. [address], [place], [place], [address] , [place]. [phone] Referring Provider: Iker Feldman, [address], [place], [place], [address]. tel:[phone] OFFICE/OUTPA TIENT VISIT, [facility], [address], [place], [place], [address], [place] tel:[phone] [facility] chronic pain (chief complaint)insom alverto (chief complaint) Insomnia, OtherPain in joint involving lower legOpioid type dependence, unspecified useSedative, hypnotic or anxiolytic dependence, unspecified Mar-0 5 Gaston Dong. [address], [place], [place], [address] , [place]. tel:[phone] Referring Provider: Franky Dunham [address], [place], [place], [address]. tel:[phone] OFFICE/OUTPA TIENT VISIT, [facility], [address], [place], [place], [address], [place] tel:[phone] [facility] chornic pain (chief complaint)anxie ty (chief complaint)HLP (chief complaint)hypot hyroidism (chief complaint) Hypothyroidism Insomnia, OtherOther and unspecified hyperlipidemia Pain in joint involving lower leg 5 Gaston Dong. [address], [place], [place], [address] , [place]. [phone] Referring Provider: Iker Feldman, [address], [place], [place], [address]. tel:[phone] OFFICE/OUTPA TIENT VISIT, [facility], [address], [place], [place], [address], [place] tel:[phone] [facility] GERD (chief complaint)chron ic pain (chief complaint)anxie ty (chief complaint)HLP (chief complaint) Hypothyroidism CAD, [place] VesselPain in joint involving lower legHypertensio n, Unspecified 5 Gaston Dong. [address], [place], [place], [address] , [place]. [phone] Referring Provider: Franky Dunham [address], [place], [place], [address]. tel:[phone] OFFICE/OUTPA TIENT VISIT, [facility], [address], [place], [place], [address], [place] tel:[phone] [facility] chronic pain (chief complaint)Anxie ty (chief complaint)HLP (chief complaint) Other and unspecified hyperlipidemia Pain in joint involving lower leg 4 Gaston Dong. [address], [place], [place], [address] , [place]. tel:[phone] Referring Provider: Iker Feldman [address], [place], [place], [address]. tel:[phone] OFFICE/OUTPA TIENT VISIT, [facility], [address], [place], [place], [address], [place] [phone] [facility] HLP (chief complaint)chron ic pain (chief complaint)anxie ty (chief complaint)HTN (chief complaint)CAD (chief complaint)GERD (chief complaint) Hypothyroidism CAD, [place] VesselHyperten jayleen, UnspecifiedCHR ONIC PAIN NEC 4 Gaston Dong. [address], [place], [place], [address] , [place]. tel:[phone] Referring Provider: Franky Dunham [address], [place], [place], [address]. tel:[phone] OFFICE/OUTPA TIENT VISIT, [facility], [address], [place], [place], [address], [place] tel:[phone] [facility] chronic pain (chief complaint)anxie ty (chief complaint) Hypothyroidism Pain in joint involving lower leg 4 Gaston Dong. [address], [place], [place], [address] , [place]. tel:[phone] Referring Provider: Franky Dunham [address], [place], [place], [address]. tel:[phone] OFFICE/OUTPA TIENT VISIT, [facility], [address], [place], [place], [address], [place] tel:[phone] [facility] chronic pain (chief complaint)anxie ty (chief complaint)GERD (chief complaint)CAD (chief complaint) Pain in joint involving lower legCAD, [place] VesselAcute gastric ulcer without mention of hemorrhage or perforation, with obstructionHyp othyroidism 0 4 Gaston Dong. [address], [place], [place], [address] , [place]. tel:[phone] Referring Provider: Franky Dunham [address], [place], [place], [address]. tel:[phone] OFFICE/OUTPA TIENT VISIT, [facility], [address], [place], [place], [address], [place] tel:[phone] [facility] chornic pain (chief complaint)anxie ty (chief complaint)HTN (chief complaint) CHRONIC PAIN NECHypertensio n, Unspecified 4 Gaston Dong. [address], [place], [place], [address] , [place]. [phone] Referring Provider: Franky Dunham [address], [place], [place], [address]. tel:[phone] OFFICE/OUTPA TIENT VISIT, [facility], [address], [place], [place], [address], [place] tel:[phone] [facility] GERD (chief complaint)chorn ic pain (chief complaint)anxie ty (chief complaint) GERDCHRONIC PAIN NEC 4 Gaston Dong. [address], [place], [place], [address] , [place]. [phone] Referring Provider: Franky Dunham [address], [place], [place], [address]. tel:[phone] OFFICE/OUTPA TIENT VISIT, [facility], [address], [place], [place], [address], [place] tel:[phone] [facility] gastric ulcer (chief complaint)chorn ic pain (chief complaint)anxie ty (chief complaint)hypot hyroidism (chief complaint) Acute gastritis (without mention of hemorrhage)CHR ONIC PAIN NECPain in joint involving lower legHypothyroid ism 4 Gaston Dong. [address], [place], [place], [address] , [place]. tel:[phone] Referring Provider: Franky Dunham [address], [place], [place], [address]. tel:[phone] OFFICE/OUTPA TIENT VISIT, [facility], [address], [place], [place], [address], [place] tel:[phone] [facility] chornic pain (chief complaint)anxie ty (chief complaint)gastr ic ulcer (chief complaint)CAD (chief complaint) Acute gastric ulcer without mention of hemorrhage or perforation, with obstructionPai n in joint involving lower legCAD, [place] July- 4 Gaston Dong. [address], [place], [place], [address] , [place]. [phone] Referring Provider: Iker Feldman, Franky [address], [place], [place], [address]. tel:[phone] OFFICE/OUTPA TIENT VISIT, [facility], [address], [place], [place], [address], [place] tel:[phone] [facility] HLP (chief complaint)CAD (chief complaint)hemat uria (chief complaint)chorn ic pain (chief complaint)anxie ty (chief complaint) Other and unspecified hyperlipidemia CAD, [place] VesselHEMATURI A NOSPain in joint involving lower leg Apr-0 4 Gaston Dong. [address], [place], [place], [address] , [place]. [phone] Referring Provider: Iker Feldman, [address], [place], [place], [address]. tel:[phone] OFFICE/OUTPA TIENT VISIT, [facility], [address], [place], [place], [address], [place] tel:[phone] [facility] hematuria (chief complaint)hypot hyroidism (chief complaint)chron ic painPt (chief complaint) HEMATURIA NOSCHRONIC PAIN NECHypothyroid ism May-0 4 Gaston Dong. [address], [place], [place], [address] , [place]. [phone] Referring Provider: Franky Dunham [address], [place], [place], [address]. tel:[phone] OFFICE/OUTPA TIENT VISIT, [facility], [address], [place], [place], [address], [place] tel:[phone] [facility] chronic pain (chief complaint)HLP (chief complaint)Anxie ty (chief complaint)hemtu valerio (chief complaint) CHRONIC PAIN NECHypothyroid ismOther and unspecified hyperlipidemia HEMATURIA NOS Fe 4 Gaston Dong. [address], [place], [place], [address] , [place]. tel:[phone] Referring Provider: Iker Feldman, [address], [place], [place], [address]. tel:[phone] OFFICE/OUTPA TIENT VISIT, [facility], [address], [place], [place], [address], [place] tel:[phone] [facility] CAD (chief complaint)chorn ic pain (chief complaint)anxie ty (chief complaint)Hypot hyroidism (chief complaint) Hypothyroidism CAD, [place]esselOther and unspecified hyperlipidemia CHRONIC PAIN NEC 4 Gaston Dong. [address], [place], [place], [address] , [place]. tel:[phone] Referring Provider: Franky Dunham [address], [place], [place], [address]. tel:[phone] OFFICE/OUTPA TIENT VISIT, [facility], [address], [place], [place], [address], [place] tel:[phone] [facility] chronic pain (chief complaint)anxie ty (chief complaint) CHRONIC PAIN NEC 3 Gaston Dong. [address], [place], [place], [address] , [place]. tel:[phone] Referring Provider: Franky Dunham [address], [place], [place], [address]. tel:[phone] OFFICE/OUTPA TIENT VISIT, [facility], [address], [place], [place], [address], [place] tel:[phone] [facility] chronic pain (chief complaint)anxie ty (chief complaint) CHRONIC PAIN NECHypothyroid ismOther and unspecified hyperlipidemia 3 Gaston Pickett [address], [place], [place], [address] , [place]. [phone] Referring Provider: Franky Dunham [address], [place], [place], [address]. tel:[phone] OFFICE/OUTPA TIENT VISIT, [facility], [address], [place], [place], [address], [place] tel:[phone] [facility] hypothyroidism (chief complaint)Chron ic pain (chief complaint)anxie ty (chief complaint) Hypothyroidism Other and unspecified hyperlipidemia CAD, [place] 3 Gaston Pickett [address], [place], [place], [address] , [place]. [phone] Referring Provider: Franky Dunham [address], [place], [place], [address]. tel:[phone] OFFICE/OUTPA TIENT VISIT, [facility], [address], [place], [place], [address], [place] tel:[phone] [facility] chronic pain (chief complaint)anxie ty (chief complaint) CHRONIC PAIN NECHypothyroid ismOther and unspecified hyperlipidemia 3 Gaston Pickett [address], [address], [place], [place], [address] , [place]. [phone] Referring Provider: Franky Dun[address], [place], [place], [address]. tel:[phone] OFFICE/OUTPA TIENT VISIT, [facility], [address], [place], [place], [address], [place] tel:[phone] [facility] Hypothyroidism (chief complaint)CAD (chief complaint)chron ic pain (chief complaint) Hypothyroidism CAD, [place]RON[place] PAIN NEC Aug 3 Gaston Pickett [address], [address], [place], [place], [address] , [place]. tel:[phone] Referring Provider: Iker Feldman, [address], [place], [place], [address]. tel:[phone] OFFICE/OUTPA TIENT VISIT, [facility], [address], [place], [place], [address], [place] [phone] [facility] CAD (chief complaint)chron ic pain (chief complaint)anxie ty (chief complaint) CAD, [place] VesselCHRONIC PAIN NECInsomnia, Other 3 Gaston Dong. [address], [place], [place], [address] , [place]. [phone] Referring Provider: Franky Dun[address], [place], [place], [address]. tel:[phone] OFFICE/OUTPA TIENT VISIT, [facility], [address], [place], [place], [address], [place] tel:[phone] [facility] CAD (chief complaint)Chron ic pain (chief complaint)anxie ty (chief complaint) CAD, [place] VesselCHRONIC PAIN NECHypothyroid ism 3 Gaston Dong. [address], [place], [place], [address] , [place]. [phone] Referring Provider: Franky Dun[address], [place], [place], [address]. tel:[phone] OFFICE/OUTPA TIENT VISIT, [facility], [address], [place], [place], [address], [place] tel:[phone] [facility] chronic pain (chief complaint)anxie ty (chief complaint)Hypot hyroidism (chief complaint) Hypothyroidism CHRONIC PAIN NEC 3 Gaston Dong. [address], [place], [place], [address] , [place]. tel:[phone] Referring Provider: Franky Dun[address], [place], [place], [address]. tel:[phone] OFFICE/OUTPA TIENT VISIT, [facility], [address], [place], [place], [address], [place] tel:[phone] [facility] chornic pain (chief complaint)Anxie ty. (chief complaint)hypot hyroidism (chief complaint) Hypothyroidism CHRONIC PAIN NECRESTLESS LEGS SYNDROME Jun-0 3 Gaston Dong. [address], [place], [place], [address] , [place]. tel:[phone] Referring Provider: Iker Feldman, [address], [place], [place], [address]. tel:[phone] OFFICE/OUTPA TIENT VISIT, [facility], [address], [place], [place], [address], [place] tel:[phone] [facility] chronic pain (chief complaint)viral (chief complaint)Anxie ty (chief complaint) Viral Infection, UnspecifiedCHR ONIC PAIN NECHypothyroid ism May-0 3 Gaston Dong. [address], [place], [place], [address] , [place]. tel:[phone] Referring Provider: Franky Dun[address], [place], [place], [address]. tel:[phone] OFFICE/OUTPA TIENT VISIT, [facility], [address], [place], [place], [address], [place] tel:[phone] [facility] chronic pain (chief complaint)Anxie ty (chief complaint)hypot hyroidism (chief complaint)ED (chief complaint) Hypothyroidism CHRONIC PAIN NECErectile Dysfunction Fe-0 3 Gaston Dong. [address], [place], [place], [address] , [place]. tel:[phone] Referring Provider: Iker Feldman [address], [place], [place], [address]. tel:[phone] OFFICE/OUTPA TIENT VISIT, [facility], [address], [place], [place], [address], [place] tel:[phone] [facility] hypothyroidism (chief complaint)chron ic pain (chief complaint) CHRONIC PAIN NECHypothyroid ismRESTLESS LEGS SYNDROME 3 Gaston Dong. [address], [place], [place], [address] , [place]. [phone] Referring Provider: Iker Feldman, [address], [place], [place], [address]. tel:[phone] OFFICE/OUTPA TIENT VISIT, [facility], [address], [place], [place], [address], [place] [phone] [facility] chronic pain (chief complaint)restl ess leg syndrome (chief complaint)anxie ty (chief complaint) CHRONIC PAIN NECRESTLESS LEGS SYNDROME 2 Gaston Pickett [address], [place], [place], [address] , [place]. [phone] Referring Provider: Franky Dun[address], [place], [place], [address]. tel:[phone] OFFICE/OUTPA TIENT VISIT, [facility], [address], [place], [place], [address], [place] tel:[phone] [facility] chronic pain (chief complaint)restl ess leg (chief complaint) RESTLESS LEGS SYNDROMECHRONI C PAIN NEC 2 Gaston Pickett [address], [place], [place], [address] , [place]. [phone] Referring Provider: Franky Dun[address], [place], [place], [address]. tel:[phone] OFFICE/OUTPA TIENT VISIT, [facility], [address], [place], [place], [address], [place] tel:[phone] [facility] chornic pain (chief complaint)anxie ty (chief complaint)insom alverto (chief complaint) Insomnia, OtherCHRONIC PAIN NECRESTLESS LEGS SYNDROME 0 2 Gaston Dong[address], [place], [place], [address] , . tel:[phone] Referring Provider: [address], [place], [place], [address]. tel:[phone] Family History Family Member Type Diagnosis Age At Onset Father Problem (finding) Cancer - colon CA Mother Problem (finding) Alive and well Brother Problem (finding) Coronary artery disease Brother Problem (finding) Other Payers Payer name Insurance type Covered democrat ID Authoriza ticlaudette(s) [facility] [id number] Social History Type Description Quantity Date Captured Comments Alcohol Use Details Caffeine Use Details Unknown Tobacco Use Status Heavy cigarette smoker Smoking Status Heavy tobacco smoker Sex Male Vital Signs Date / Time: Height Weight BMI Pulse Rate Blood Pressure Temperature Respiratory Rate Body Surface Area Head Circumference BMI percentile Pulse Ox Inhaled Ox 10:01 AM 68.00 in 162.00 lbs 24.6 3 kg/m eter (2) 65 /min 120/72 mm[Hg] 97.7 F 16 /min Chief Complaint And Reason For Visit From encounter dated '09/17/2024 09:39'. pain (chief complaint). Description: Pt has chronic right ankle pain. Pt has arthritis. Pt failed NSAID and ultram pt takes norco PRn for pain and doing ok. Pt denies any worsening pain. Pt denies any neuropathy anxiety1 (chief complaint). Description: Pt has chronic anxiety and insomnia. Pt takes xanax qhs PRn and doing ok, Pt denies any depression or any suicidal thought. Pt denies any crying spells Pt doing ok with xanax qhs PRN anemia1 (chief complaint). Description: Pt is mildly anemic. Pt denies any blood loss bladder CA (chief complaint). Description: Pt has recurrent bladder CA. pt is seeing urology and isbeing treated now with chemo and tumor was removed. Plan Of Treatment Date Type Action Status Goal Td vaccine. Due on 25 due [...] Goal Lipid panel. Due on due Goal Pneumococcal vaccine. Due [...] Due on due Goal Colonoscopy. Due on 024 due Goal Cognitive assessment. Due on due [...] Lipid panel. Due on 023 due Goal Tdap. Due on due Goal PSA. Due on due Goal Colonoscopy. Due on 023 due Goal Cognitive assessment. Due on due [...] on due Goal Influenza vaccine. Due on Oc due Goal FOBT. Due on due Goal Depression screening. Due on due Goal Depression screening. Due on due Goal FOBT. Due on due Goal Influenza vaccine. Due on Se due Goal Lipid panel. Due on due [...] Td vaccine. Due on 19 due Goal Pneumococcal vaccine. Due on due [...] Td vaccine. Due on 19 due Goal Influenza vaccine. Due on due [...] Goal Colonoscopy. Due on 018 due Goal Abdominal ultrasound. Due on due Goal Sigmoidoscopy. Due on due Goal Lipid panel. Due on 018 due Goal FOBT. Due on due Goal Zoster vaccine. Due on due Goal PSA. Due on due Goal Tdap. Due on due Goal Td vaccine. Due on 18 due Goal Tobacco cessation counseling completed Goal [...] Goal Colonoscopy. Due on 017 due Goal Depression screening. Due on due [...] Goal Colonoscopy. Due on 015 due Goal PSA. Due on due Goal [...] ordered Referral Referred To: Suzanne Beckham [address], [place] [id number] Ordered: Referrals: Allopathic & Osteopathic Physicians : Urology. Suzanne Beckham. 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 GRISELDA RAWLS. Evaluate and treat ordered Referral Ordered: CT THORAX W/O DYE ordered Referral Ordered: Referral: [facility]. Evaluate and treat. ordered Referral Ordered: Referral: Urology. Evaluate and treat. ordered Referral Ordered: US THYROID ordered Appointment Bhanu Álvarez BOOKED History Of Present Illness Encounter Date Complaint History Of Prese nt Illness pain Pt has chronic r ight ankle [...] Pt doing ok with xanax qhs PRN anemia1 Pt is mildly ane flor. Pt denies any blood loss bladder CA Pt has recurrent bladder CA. pt is seeing urology and is being treated now with chemo and tumor was removed. physical Pt needs annual physical .Pt has [...] denies any worsening sob Pt needs LDCT anxiety Pt has chronic a nxiety and [...] any worsening pain. Pt denies any neuropathy anxiey1 Pt has chronic a nxiety and insomnia. Pt takes xanax qhs PRn and doing ok, Pt denies any depression or any suicidal thought. Pt denies any crying spells Pt doing ok with xanax qhs PRN hypothyroidism1 Pt has hypothyro idism Pt denies any dysphagia or neck pain. Pt needs synthroid refilled . pain Pt has chronic r ight ankle [...] worsening pain. Pt denies any neuropathy pain anxiety Pt has chronic a nxiety and [...] cervantes Pt takes omeprazole and doing ok thyroid1 Pt has hypothyro idism. Pt denies [...] and plavix Pt denies any chest pain pain Pt has [...] with xanax qhs PRN tobacco1 Pt has fci smoking history. 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 Pt takes omeprazole .Pt saw GI recently [...] above. pt denies any lower GI issue emphysema1 Pt has emphysema Pt denies any hemoptysis, [...] Pt doing ok with xanax qhs PRN GERD Pt has cervantes. Pt had EGD 2019 [...] has bladder C A Pt supposes to [facility] urology but his cezar was again canceled. Pt did call urology at [facility] who he used to see and [...] A. Pt was referred to urology of [facility] and he tried to call for cezar [...] doing ok. Pt denies any worsening pain insomnia Pt has chronic a nxiety and [...] moptysis, worsening sob or cough. LDCT ok insomnia1 Pt has chronic a nxiety [...] norco PRn for pain and doing ok CAD pt has CAD with stent. Pt denies any chest pain Pt just saw his front desk host and was cleared for another year. copd Pt has COPD Pt s mokes still. Pt uses incruse Pt uses albuterol 1-2 per day Pt denies any hemoptysis, worsening sob or cough Barrett1 Pt takes omepraz ole. Pt has cezar for EGD net month anxiety1 Pt has chronic a nxiety and [...] chest pain pt denies any new complaints COPD Pt takes incruse daily. Pt takes ventolin 1-2 per week Pt needs ventolin refilled chronic pain1 Pt has chronic r ight ankle pain Pt has arthritis Pt failed NSAID and ultram pt takes norco PRn for pain and doing ok insomnia1 Pt has chronic a nxiety and insomnia. Pt takes xanax qhs PRn and doing ok, Pt denies any depression or any suicidal thought HTN Pt has HTN with CAD Pt [...] also still smoking Pt needs LDCT. bladder CA Pt has recurrent bladder CA. Pt just seen urology and had normal prostate exam but there is recurrent bladder CA. Pt will go back for more surgery next week lung Pt denies any he moptysis, cough or worsening sob. Pt needs LDCT chronic pain Pt has chronic r ight ankle pain Pt has history of ankle injury with severe arthritis. pt failed NSAID and ultram Pt takes norco PRN for pain and doing ok. Pt denies any worsening pain anxiety1 Pt has chronic i nsomnia and mild anxiety at night. Pt denies any depression or any suicidal thought Pt denies any crying spells vitamin D1 Pt has low D. pt [...] doing ok currently. Pt denies an GERD bladder tumor1 Pt underwent zahraa marivel by Dr. Junior and was successful per pt. thyroid1 Pt has low thyro id. Pt [...] sob. Pt takes ventolin 1-2 per week Physical PT needs annual physical. pt has bladder CA and he is seeing Dr. Junior in [place] and he will have the mass removed [...] doing ok. Pt denies any other complaints insomnia1 Pt has chronic i nsomnia Pt takes xanax qhs PRn and doing ok bladder CA Pt recently had a cysto which showed a bladder mass. His urine cytology is atypical also Pt denies any hematuria or pain kidney cyst1 Pt has left guillermina l lesion on Ct and he supposes to do MRi but he missed the deadline for the MRI. He just seen Dr Evaristo braun who is a urologist in [facility] who did the cysto and he told me the renal lesion is almost 100% sure a benign cyst. He did take the Ct to his radiologist over [facility] However, he is not in network with [facility] chronic pain1 Pt disla chronic ri ght ankle pain. Pt takes norco PRN for pain Pt failed NSAID chronic pain1 Pt has [...] 1 Pt just seen uro logy in [facility]. He will do cystoscopy. pt has not [...] and doing ok. Pt denies any snoring insomnia1 Pt has insomnia. Pt takes xanax qhs PRn and doing ok. Pt denies any depression or any suicidal thought. Pt denies any crying spells. hypothyroidism Pt takes synthro id. His TSH is normal HLP Pt has HLP. Pt t akes lipitor. Pt denies any myalgia,, His lipid profile is ok chronic pain1 Pt has chronic r ight ankle pain due to arthritis. Pt takes norco PRN for pain PRN. 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 Pt is on omeprazole. Pt has appointment [...] to schedule for CT of chest but [facility] will not do it. Pt [...] pain or nodule GERD1 Pt has cervantes salome cardona. Pt is on omepraozle. Pt just [...] stress test. Pt denies any chest pain GERD1 Pt has Cervantes salome cardona. Pt is taking omeprazole. Pt denies any abd pain or GERD HTN Pt takes lisinor pil and coreg and his BP is high today Pt denies any chest pain or headache chronic pain1 Pt has chronic r ight ankle pain. Pt has history of right ankle fx. Pt takes norco for pain Pt denies any worsening pain anxiety1 Pt has chronic a nxiety. Pt denies any depression or any suicidal thought. Pt takes xanax PRN. Pt denies any cyring spells chronic pain Pt has chronic r ight ankle pain. Pt takes norco PRN for pain Pt failed NSAID Pt doing ok anxiety1 Pt has chronic a nxiety and insomina Pt takes xanax qhs PRN. Pt denies any depression or any suicidal thought chronic pain Pt has chronic r ight ankle pain and aniety Pt takes norco and xanax. Pt doing ok. Pt denies any worsening pain. Pt denies any suicidal or homicdial thought Pt denies any depression CAD Pt has CAD with stent. Pt [...] complaints. CAD Pt has CAD. Pt t akvalentino coreg, lisinopril ASA and plavix. Pt denies [...] anysymptoms HLP1 Pt has HLP. Pt t crystal lipitor. Pt denies any myalgia. Pt has [...] Pt takes omerpzole. Pt denies any GERD Sep-01-2015 insomnia The patient pres ents for insomnia. [...] or chest pain or headache or palpitation hypothyroidism Pt takes synthro id. Pt denies any chest pain or any palpitation gERD Additional infor mation:Pt takes omeprazole. Pt has history of gastriculcer Pt denies any pain. pain Pt has chronic r ight ankle pain. Pt denies any worsening pain anxiety Additional infor mation: Pt has chornic anixety. Pt denies any depression or any suicidal thought. Pt takes xanax qhs. chronic apin Pt has chronic r ight [...] Surveillance and Counseling Quit smoking Related to [place] tt's esophagus without dysplasia Prescribed Diet Educ ation/Lifestyle Education Regarding Diet Related to Dietary Surveillance and Counseling Prescribed Activity and Exercise Education Related to Dietary Surveillance and Counseling Quit smoking Related to Insom alverto Prescribed Activity and Exercise Education Related to Dietary Surveillance and Counseling Prescribed Diet Educ ation/Lifestyle Education Regarding Diet Related to Dietary Surveillance and Counseling Quit smoking Related to [place] tt's esophagus without dysplasia Quit smoking Related [...] Surveillance and Counseling exercise Related to CAD, [place] Assessments Type Assessment Date assessment Anemia assessment Chronic pain syndrome assessment Malignant neoplasm of bladder, u nspecified assessment Other insomnia Mental Status Date Cognitive Assessment Orientation - Sieper ed to time, place, person, situation.
[2024-09-18 11:04] LABS: Hematocrit 40.6 % (42.0-52.0); Hemoglobin 13.7 g/dL (14.0-18.0); Immature Granulocyte Percent A 0.3 % (0-0.5); Lymphocytes Absolute Auto 1.34 K/mm3 (0.9-3.2); Mean Corpuscular HGB Conc 33.7 g/dl (32-36); Mean Corpuscular Hemoglobin 33.5 pg (26-34); Mean Corpuscular Volume 99.3 fl (80-100); Nucleated Red Blood Cells Absolute Auto 0.000 K/mm3 (0.0-0.012); Nucleated Red Blood Cells Perc 0.0 % (0.0-0.2); Platelet Count Result 336 k/mm3 (150-375); Red Blood Count 4.09 M/mm3 (4.6-6.20); White Blood Count 6.2 K/mm3 (4.5-10.0)
[2024-09-18 11:19] LABS: Alanine Aminotransferase 26 U/L (6-50); Albumin Level 4.1 g/dL (3.5-5.1); Alkaline Phosphatase 82 U/L (38-126); Anion Gap 6 mmol/L (4-12); Aspartate Amino Transferase 32 U/L (17-59); Bilirubin,Total 0.7 mg/dL (0.2-1.3); Blood Urea Nitrogen 12 mg/dL (9-20); Calcium 9.2 mg/dL (8.4-10.2); Carbon Dioxide 24 mmol/L (22-30); Chloride 108 mmol/L (98-107); Estimated CRCL calculation 67 ml/min; Estimated Glomerular Filt Rate > 60; Glucose 127 mg/dL (65-110); Lipase 61 U/L (23-300); Potassium 3.9 mmol/L (3.4-5.0); Sodium 138 mmol/L (137-145); Total Protein 7.2 g/dL (6.3-8.2)
[2024-09-18 11:30] LABS: Troponin I < 0.012 ng/mL (0.000-0.034)
[2024-09-18 11:37] LABS: INR 1.0; Prothrombin Time 13.5 Seconds (11.1-14.7)
[2024-09-18 11:38] LABS: Partial Thromboplastin Time 26.4 Seconds (22.3-36.8)
[2024-09-18 12:41] LABS: NT Pro B Type Natriuretic Pept 21 pg/mL (19.9-100)
--- OUTSIDE RECORDS SUMMARY | 2024-09-18 13:14 | XMS_ITS | Encounter Summary ---
Author Organization [facility] Address [address] [place] [address] Phone Care Team Providers Care Senior Coldfusion Developer Name Role Phone Gaston Iker Primary Care Provider [phone] Juan Gresham MD Unavailable Hemant Delgado MD Unavailable Reason for Referral * Radiology Services (Routine) - Closed Specialty Diagnoses / Procedures Referred By Contac t Referred To Contact Radiology Diagnoses Pre-op testing Procedures EKG 12 LEAD Laurent Abebe APRN, CRNA #[address] [place] [address] Phone: tel: fax: Referral ID Status Reason Start Date Expiration Date Visits Re quested Visits Authorized [id number] Closed 03/29/2021 1 1 MONITOR Encounter Details Date Type Department Care Team (Late st Contact Info) Description 03/29/2021 Transcribe Orders [facility] Preop/Pacu II 1 [place] [id number] Laurent Abebe APRN, CRNA #[address] [place] [address] Pre-op testing (Primary Dx) Social History Tobacco [...] COVID-19? No / Unsure 03/29/2021 2:12 PM CASE MONITOR documented as of this encounter Plan of Treatment Not on file documented as of this encounter Results * HEMOGLOBIN & HEMATOCRIT (H&H) (04/25/2021 7:56 AM CASE MONITOR) HEMOGLOBIN (HGB) 14.7 13.0 - 16.5 g/dL 04/25/2021 8:12 AM CASE MONITOR [facility] HEMATOCRIT (HCT) 44.9 38.0 - 50.0 % 04/25/2021 8:12 AM CASE MONITOR [facility] Blood Venipuncture / Unknown 04/25/2021 7:56 AM CASE MONITOR 04/25/2021 8:07 AM CASE MONITOR us Laurent Nathanatzmarek WHOLESALE LOAN PROCESSOR, CASH CONTROL SPECIALIST HEMATOLOGY ORDERAB LES Final Result [facility] [address] [place] [address] * (ABNORMAL) BASIC METABOLIC PANEL W/ CALCIUM TOTAL (04/25/2021 7:56 AM CASE MONITOR) SODIUM 133(L) 136 - 144 mmol/L 04/25/2021 8:32 AM CASE MONITOR [facility] POTASSIUM 4.6 3.5 - 5.1 mmol/L 04/25/2021 8:32 AM [facility] CHLORIDE 99(L) 100 - 110 mmol/L 04/25/2021 8:32 AM [facility] CO2, VENOUS 27 22 - 32 mmol/L 04/25/2021 8:32 AM [facility] ANION GAP 11.6 8.0 - 20.0 mmol/L 04/25/2021 8:32 AM [facility] GLUCOSE 111(H) 70 - 99 mg/dL 04/25/2021 8:32 AM CASE MONITOR [facility] BUN 11 8 - 23 mg/dL 04/25/2021 8:32 AM [facility] CREATININE, BLOOD 0.90 0.80 - 1.30 mg/dL 04/25/2021 8:32 AM [facility] BUN/CREATININE RATIO 12 12 - 20 ratio 04/25/2021 8:32 AM [facility] CALCIUM 9.4 8.9 - 10.3 mg/dL 04/25/2021 8:32 AM [facility] GFR, EST. NONAFRICAN >60 >=60 04/25/2021 8:32 AM [facility] GFR, EST. >60 >=60 04/25/2021 8:32 AM [facility] Comment: Creatinine Clearance is the preferred criteria for selecting drug dose adjustments in renally impaired patients. The GFR is provided as additional pertinent clinical information. GFR is reported in mL/min/1.73 sq m. IS THE PATIENT REQUIRED TO BE FASTING? No 04/25/2021 8:32 AM [facility] Blood Venipuncture / Unknown 04/25/2021 7:56 AM CASE MONITOR 04/25/2021 8:07 AM CASE MONITOR us Laurent Etelvina Purchatzke WHOLESALE LOAN PROCESSOR, CASH CONTROL SPECIALIST CHEMISTRY ORDERABL ES Final Result [facility] [address] [place] [address] * EKG 12 LEAD (04/25/2021 7:43 AM CASE MONITOR) Ventricular Rate BPM EXTERNAL EKG Atrial Rate BPM EXTERNAL EKG P-R Interval 194 ms EXTERNAL EKG QRS Duration 100 ms EXTERNAL EKG Q-T Duration 472 ms EXTERNAL EKG QTC CALCULATION 427 ms EXTERNAL EKG P [place] 79 degrees EXTERNAL EKG R [place] 49 degrees EXTERNAL EKG T [place] 67 degrees EXTERNAL EKG 04/25/2021 7:43 AM CASE MONITOR Impressions EXTERNAL EKG - 04/25/2021 9:08 AM CASE MONITOR Sinus bradycardia Abnormal R wave progression (?ASMI [...] significant changes noted Confirmed by Lauren Mahmood [id number] on 04/25/2021 9:08:06 AM us Laurent Abebe WHOLESALE LOAN PROCESSOR, CASH CONTROL SPECIALIST IMG ECG ORDERABLES Final Result EXTERNAL EKG documented in this encounter Visit Diagnoses Diagnosis Pre-op testing- Primary Preoperative examination, unspecified Pre-op testing Preoperative examination, unspecified documented in this encounter Care Teams Senior Coldfusion Developer Relationship Specialty Start Date End Date Iker Feldman [address] [address] PCP - General Family Medicine 12/05/17 Juan Gresham MD [address] [facility] [address] [place] [address] Cardiovascular Disease - Cardiology 12/05/17 Hemant Delgado MD [address] [address] Consulting Physician Urology 01/19/22 documented as of this encounter
--- OUTSIDE RECORDS SUMMARY | 2024-09-18 13:14 | XMS_ITS | Encounter Summary ---
Author Organization [facility] Address [address] [place] [address] Phone Care Team Providers Care Power Shovel Operator Helper Name Role Phone Iker Feldman Primary Care Provider [phone] Juan Gresham MD Unavailable Hemant Delgado MD Unavailable Encounter Details Date Type Department Care Team (Late st Contact Info) Description 04/26/2021 Transcribe Orders [facility] Preop/Pacu II 1 [place] [address] Hemant Delgado MD [address] [address] Pre-op testing (Primary Dx) Social History Tobacco [...] COVID-19? 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 CLUB CONCIERGE documented as of this encounter Plan of Treatment Not on file documented as of this encounter Visit Diagnoses Diagnosis Pre-op testing- Primary Preoperative examination, unspecified documented in this encounter Care Teams Power Shovel Operator Helper Relationship Specialty Start Date End Date Iker Feldman [address] [place] [address] PCP - General Family Medicine 12/05/17 Juan Gresham MD [address] [facility] [address] [place] [address] Cardiovascular Disease - Cardiology 12/05/17 Hemant Delgado MD [address]2 [facility] [address] [place] [address] Consulting Physician Urology 01/19/22 documented as of this encounter
--- OUTSIDE RECORDS SUMMARY | 2024-09-18 13:14 | XMS_ITS | Encounter Summary ---
Author Organization [facility] Address [address] [place] [address] Phone Care Team Providers Care Industrial Gas Service Helper Name Role Phone Iker Feldman Primary Care Provider [phone] Juan Gresham MD Unavailable Hemant Delgado MD Unavailable Encounter Details Date Type Department Care Team (Late st Contact Info) Description 03/29/2021 Transcribe Orders [facility] Preop/Pacu II [address] [place] [address] Hemant Delgado MD #[address] [address] Pre-op testing (Primary Dx) Social History Tobacco [...] COVID-19? No / Unsure 03/29/2021 2:12 PM GEOPHYSICAL SUPPORT SPECIALIST documented as of this encounter Plan of Treatment Not on file documented as of this encounter Results * SARS-COV-2 BY MOLECULAR (04/25/2021 7:54 AM GEOPHYSICAL SUPPORT SPECIALIST) SARSCOV2 NOT DETECTED (Referen ce Range for this test is Not Detected ) [facility] THERMOFISHER FAST DX 04/25/2021 6:50 PM GEOPHYSICAL SUPPORT SPECIALIST [facility] Comment:This test was perfor med by a RT-PCR method. Other NASOPHARYNGEAL STRUCTURE / Unknown Non-Phlebotomy Collection / Unknown 04/25/2021 7:54 AM GEOPHYSICAL SUPPORT SPECIALIST 04/25/2021 8:44 AM GEOPHYSICAL SUPPORT SPECIALIST Narrative [facility] - 04/25/2021 6:50 PM GEOPHYSICAL SUPPORT SPECIALIST Authorized Fact Sheets about this test for providers and patients are available at: https://www.fda.gov/medical-devices/jyfoqqjms-fphdisugai-ewwuqlz-devices/emergen cy-us e-authorizations us Hemant Delgado MD MICROBIOLOGY - GENERAL ORDERABLE S Final Result [facility] [address] [place] [address], documented in this encounter Visit Diagnoses Diagnosis Pre-op testing- Primary Preoperative examination, unspecified documented in this encounter Care Teams Industrial Gas Service Helper Relationship Specialty Start Date End Date Iker Feldman [address] [place] [address] PCP - General Family Medicine 12/05/17 Juan Gresham MD [address] [facility] [place] [address] [place] [address] Cardiovascular Disease - Cardiology 12/05/17 Hemant Delgado MD #[address] [facility], [address] [address] Consulting Physician Urology 01/19/22 documented as of this encounter
--- OUTSIDE RECORDS SUMMARY | 2024-09-18 13:15 | XMS_ITS | Clinical Summary ---
Author Organization [facility] [address] Address [address] [place] [address] Care Team Providers Care Priming Mixture Carrier Name Role Phone Iker Feldman MD Primary Care Provider [phone] Iker Feldman MD Unavailable [phone] Allergies Active Allergy Reactions Criticality Noted Date [...] 1 tablet (88 mcg total) by mouth technical programs manager before breakfast Active albuterol HFA (PROVENTIL HFA,VENTOLIN [...] needed for pain Active cholecalciferol (VITAMIN D-3) 15368 unit tablet Take 1 tablet (50,000 Units total) by mouth once a week Active carvediloL (COREG) 3.125 mg tabletIndications :Coronary artery disease involving knik coronary artery of knik heart without angina pectoris Take 1 tablet (3.125 mg total) by mouth 2 (two) times a day with meals 180 tablet 3 4 Active clopidogreL (PLAVIX) 75 mg tabletIndications :Coronary artery disease involving knik coronary artery of knik heart without angina pectoris Take 1 tablet (75 mg total) by mouth daily 90 tablet 3 4 Active atorvastatin (LIPITOR) 40 mg tabletIndications :Coronary artery disease involving knik coronary artery of knik heart without angina pectoris Take 1 tablet (40 mg total) by mouth daily 90 tablet 3 4 Active nitroglycerin (NITROSTAT) 0.4 mg SL tabletIndications :Coronary artery disease involving knik coronary artery of knik heart without angina pectoris Place 1 tablet (0.4 mg total) under the tongue every 5 (five) minutes as needed for chest pain Up to 3 doses 25 tablet 4 Active lisinopriL (PRINIVIL,ZESTRIL ) 10 mg tabletIndications :Coronary artery disease involving knik coronary artery of knik heart without angina pectoris TAKE ONE TABLET BY MOUTH DAILY 90 tablet 2 4 Active Active Problems Problem Noted Date Diagnosed Date Atherosclerosis of coronary artery 12/12/2013 Overview (06/15/2016): Coronary atherosclerosis Encounters Date Type Department Care Team Description 08/19/2024 Telephone [facility] Cardiology [address] [place] [address] Perri Lux NP preop form [...] on file Legal Sex Male 9:18 PM YARDER OPERATOR Gender Identity Not on file Sexual [...] AA) Screen Completed 12/10/2019, 01/05/2018 Insurance IDPA [facility] MEDICARE ADVANTAGE [facility] MEDICARE ADVANTAGE IDPA Care Teams Priming Mixture Carrier Relationship Specialty Start Date End Date Iker Feldman MD PCP - General 06/09/16 Iker Feldman MD Family Medicine 03/26/17
--- OUTSIDE RECORDS SUMMARY | 2024-09-18 13:15 | XMS_ITS | Encounter Summary ---
Author Organization [facility] Address [address] [place] [address] Phone Care Team Providers Care One Piece Expansion Maker Hand Name Role Phone Iker Feldman Primary Care Provider [phone] Juan Gresham MD Unavailable Hemant Delgado MD Unavailable Encounter Details Date Type Department Care Team (Late st Contact Info) Description 05/16/2021 Transcribe Orders [facility] Preop[facility]Pac[facility] [address] [place] [address] Hemant Delgado MD #[address] [address] Pre-op testing (Primary Dx) Social History Tobacco [...] COVID-19? No / Unsure 05/17/2021 11:10 AM PHERESIS SPECIALIST documented as of this encounter Plan of Treatment Not on file documented as of this encounter Results * SARS-COV-2 BY MOLECULAR (05/17/2021 11:13 AM PHERESIS SPECIALIST) SARSCOV2 NOT DETECTED (Referen ce Range for this test is Not Detected ) [facility] THERMOFISHER FAST DX 05/18/2021 11:52 AM PHERESIS SPECIALIST [facility] Comment:This test was perfor med by a RT-PCR method. Other NASOPHARYNGEAL STRUCTURE / Unknown Non-Phlebotomy Collection / Unknown 05/17/2021 11:13 AM PHERESIS SPECIALIST 05/17/2021 11:57 AM PHERESIS SPECIALIST N[facility]ative [facility] - 05/18/2021 11:52 AM PHERESIS SPECIALIST Authorized Fact Sheets about this test for providers and patients are available at: https://www.fda.gov/medical-devices/gypsdamav-sdqyqxhjib-hickiys-devices/emergen cy-us e-authorizations us Hemant Delgado MD MICROBIOLOGY - GENERAL ORDERABLE S Final Result [facility] [address] [place] [address], documented in this encounter Visit Diagnoses Diagnosis Pre-op testing- Primary Preoperative examination, unspecified documented in this encounter Care Teams One Piece Expansion Maker Hand Relationship Specialty Start Date End Date Iker Feldman [address] [place] [address] PCP - General Family Medicine 12/05/17 Juan Gresham MD [address] [facility] [place] [address] [place] [address] Cardiovascular Disease - Cardiology 12/05/17 Hemant Delgado MD #2 [facility], [address] [address] Consulting Physician Urology 01/19/22 documented as of this encounter
--- OUTSIDE RECORDS SUMMARY | 2024-09-18 13:15 | XMS_ITS | Clinical Summary ---
Author Organization [facility] Address [address] [place] [address] Phone Care Team Providers Care Dental Insurance Coordinator Name Role Phone Iker Feldman Primary Care [...] minutes as needed. Active ergocalciferol (VITAMIN D) 82789 UNIT Capsule Take 1 Capsule by mouth. [...] Comments Blood Pressure 138/74 01/19/2022 8:53 AM CLEANING SUPERVISOR Pulse 54 01/19/2022 8:53 AM CLEANING SUPERVISOR Temperature 36.4 C (97.6 F) 01/19/2022 8:53 AM CLEANING SUPERVISOR Respiratory Rate 18 01/19/2022 8:53 AM CLEANING SUPERVISOR Oxygen Saturation 98% 01/19/2022 8:53 AM CLEANING SUPERVISOR Inhaled Oxygen Concentration - - Weight 72.2 kg (159 lb 3.2 oz) 01/19/2022 8:53 A M CLEANING SUPERVISOR Height 174 cm (5' 8.5) 09/16/2021 11:49 [...] this topic Medical Devices Implanted Type Area Belly Dump Driver Device Identifier Shelf Expiration Date Model / Serial / Lot Stent Ureteral 6fr 2.1fr 26cm 2 Pigtail Curve 2 Durometer Taper Tip Loprfl Graduated Polaris Ultra - [id number] Implanted:Qty : 1 on 03/19/2018 by Viviana Junior MD at [facility] IMPLANT Right: Ureter [employer] 10/03/2020 [id number] 0 / [id number] 0 / [id number] Stent Ureteral 6fr 2.1fr 24cm 2 Pigtail Curve 2 Durometer Taper Tip Loprfl Graduated Polaris Ultra - [id number] Implanted:Qty : 1 on 04/29/2021 by Hemant Delgado MD at [facility] IMPLANT Left: Ureter [employer] 01/12/2024 [id number] 0 / [id number] 0 / [id number] Stent Ureteral 6fr 2.1fr 24cm 2 Pigtail Curve 2 Durometer Taper Tip Loprfl Graduated Polaris Ultra - [id number] Implanted:Qty : 1 on 05/20/2021 by Hemant Delgado MD at [facility] IMPLANT Left: Ureter [employer] 02/04/2024 [id number] 0 / [id number] 0 / [id number] Stent Ureteral 6fr 2.1fr 24cm 2 Pigtail Curve 2 Durometer Taper Tip Loprfl Graduated Polaris Ultra - [id number] Implanted:Qty : 1 on 05/20/2021 by Hemant Delgado MD at [facility] IMPLANT Right: Ureter [employer] 02/04/2024 [id number] 0 / [id number] / [id number] Stent Ureteral 6fr 2.1fr 28cm 2 Pigtail Curve 2 Durometer Taper Tip Loprfl Graduated Polaris Ultra - [id number] Implanted:Qty : 1 on 09/09/2021 by Hemant Delgado MD at [facility] IMPLANT Right: Ureter [employer] 02/08/2024 [id number] 0 / [id number] 0 / [id number] Explanted Type Area Belly Dump Driver Device Identifier Shelf Expiration Date Model / Serial / Lot Stent Ureteral 6fr 2.1fr 24cm 2 Pigtail Curve 2 Durometer Taper Tip Loprfl Graduated [employer] Ultra - [id number] Implanted:Qty : 1 on 04/29/2021 by [facility] Explanted:Qty : 1 on 05/20/2021 by [facility] at [facility] IMPLANT Right: Ureter [employer] 01/12/2024 [id number] 0 / [id number] 0 / [id number] Procedures Procedure Name Priority Date/Time Associated Diagnosis [...] Documents on File Type Date Recorded Patient Consulting Property Manager Expl anation Other Advance Directive 09/21/2021 3:35 [...] Medical Clearance fo r surgery Care Teams Dental Insurance Coordinator Relationship Specialty Start Date End Date Feldman Iker [address] [place] [address] PCP - General Family Medicine 12/05/17 Juan Gresham MD [address] [facility] [address] [place] [address] Cardiovascular Disease - Cardiology 12/05/17 Hemant Delgado MD #2 [facility] [address] [place] [address] Consulting Physician Urology 01/19/22
--- OUTSIDE RECORDS SUMMARY | 2024-09-18 13:15 | XMS_ITS | Referral Summary ---
Author Organization [facility] [address] [facility] [address] Address [address] [place] [address] Care Team Providers Care Infrastructure Engineer Name Role Phone Iker Feldman MD Primary Care Provider [phone] Iker Feldman MD Unavailable [phone] Encounters Date Type Department Care Team Description 08/19/2024 Telephone [facility] Cardiology [address] [facility] [address] [place] [address] Perri Lux NP preop form [...] 1 tablet (88 mcg total) by mouth pallet sorter before breakfast Active albuterol HFA (PROVENTIL HFA,VENTOLIN [...] needed for pain Active cholecalciferol (VITAMIN D-3) 89129 unit tablet Take 1 tablet (50,000 Units total) by mouth once a week Active carvediloL (COREG) 3.125 mg tabletIndications :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 Take 1 tablet (3.125 mg total) by mouth 2 (two) times a day with meals 180 tablet 3 4 Active clopidogreL (PLAVIX) 75 mg tabletIndications :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 Take 1 tablet (75 mg total) by mouth daily 90 tablet 3 4 Active atorvastatin (LIPITOR) 40 mg tabletIndications :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
--- OUTSIDE RECORDS SUMMARY | 2024-09-18 13:15 | XMS_ITS | Continuity of Care Document ---
Author Organization [facility] Address [address] [place] [address] [place] [address] Phone Care Team Providers Care Leather Staker Name Role Phone Iker Feldman MD Unavailable [...] 12.5 MG - Active Procedures Procedure Date OFFICE/OUTPATIENT [...] Providers Copied on Encounter OFFICE/OUTPA TIENT VISIT, [facility], [place], operated [facility], [address], [place], [place], [address], [place] tel:[phone] [facility] pain (chief complaint)anxie ty1 (chief complaint)anemi a1 (chief complaint)bladd er CA (chief complaint) AnemiaChronic pain syndromeMalign ant neoplasm of bladder, unspecifiedOth er insomnia 5 Gaston Pickett [address], [place], [place], [address] , [place]. tel:[phone] PREV VISIT, EST, [address] & [address] [facility], [address], [place], [place], [address], [place] tel:[phone] [facility] physical (chief complaint) Centrilobular emphysemaChron ic pain syndromeMalign ant neoplasm of bladder, unspecifiedHyp othyroidismMix ed hyperlipidemia Encounter for general adult medical exam w abnormal findingsCorona ry artery disease of chalk[place] coronary artery w/o angina pectorisGERD without esophagitis 5 Gaston Pickett [address], [place], [place], [address] , [place]. tel:[phone] OFFICE/OUTPA TIENT VISIT, [facility], [place], operated [facility], [address], [place], [place], [address], [place] tel:[phone] [facility] pain (chief complaint)anxie ty1 (chief complaint)COPD1 (chief complaint) Chronic pain syndromePrimar y insomniaCentri lobular emphysemaPerso nal history of nicotine dependenceMali gnant neoplasm of bladder, unspecified 5 Gaston Pickett [address], [place], [place], [address] , [place]. tel:[phone] OFFICE/OUTPA TIENT VISIT, [facility], [place], operated [facility], [address], [place], [place], [address], [place] tel:[phone] [facility] pain (chief complaint)anxie ty1 (chief complaint) Chronic pain syndromePrimar y insomnia Jun-0 5 Gaston Dong. [address], [place], [place], [address] , [place]. tel:[phone] OFFICE/OUTPA TIENT VISIT, [facility], [place], operated [facility], [address], [place], [place], [address], [place] tel:[phone] [facility] pain (chief complaint)anxie ty1 (chief complaint) Chronic pain syndromePrimar y insomnia 5 Gaston Dong. [address], [place], [place], [address] , [place]. tel:[phone] OFFICE/OUTPA TIENT VISIT, [facility], [place], operated [facility], [address], [place], [place], [address], [place] tel:[phone] [facility] pain (chief complaint)anxie ty1 (chief complaint)COPD1 (chief complaint) Chronic pain syndromeCentri lobular emphysemaPrima ry insomnia 5 Gaston Dong. [address], [place], [place], [address] , [place]. tel:[phone] OFFICE/OUTPA TIENT VISIT, [facility], [place], operated [facility], [address], [place], [place], [address], [place] tel:[phone] [facility] pain (chief complaint)anxie ty1 (chief complaint)thyro id1 (chief complaint) Chronic pain syndromePrimar y insomniaHypoth yroidism 5 Gaston Dong. [address], [place], [place], [address] , [place]. tel:[phone] OFFICE/OUTPA TIENT VISIT, [facility], [place], operated [facility], [address], [place], [place], [address], [place] tel:[phone] [facility] pain (chief complaint)anxie ty1 (chief complaint) Chronic pain syndromePrimar y insomnia 4 Feldman Iker. [address], [place], [place], [address] , [place]. tel:[phone] OFFICE/OUTPA TIENT VISIT, [facility], [place], operated [facility], [address], [place], [place], [address], [place] tel:[phone] [facility] pain (chief complaint)anxie ty1 (chief complaint)COPD1 (chief complaint) Chronic pain syndromePrimar y insomniaCentri lobular emphysema 4 Feldman Iker. [address], [place], [place], [address] , [place]. tel:[phone] OFFICE/OUTPA TIENT VISIT, [facility], [place], operated [facility], [address], [place], [place], [address], [place] tel:[phone] [facility] pain (chief complaint)anxie ty1 (chief complaint) Chronic pain syndromePrimar y insomnia 4 Feldman Iker. [address], [place], [place], [address] , [place]. tel:[phone] OFFICE/OUTPA TIENT VISIT, [facility], [place], operated [facility], [address], [place], [place], [address], [place] tel:[phone] [facility] pain (chief complaint)anxie ty1 (chief complaint) Chronic pain syndromePrimar y insomnia 4 Feldman Iker. [address], [place], [place], [address] , [place]. tel:[phone] OFFICE/OUTPA TIENT VISIT, [facility], [place], operated [facility], [address], [place], [place], [address], [place] tel:[phone] [facility] pain (chief complaint)anxie ty1 (chief complaint)COPD1 (chief complaint) Centrilobular emphysemaChron ic pain syndromePrimar y insomnia 4 Feldman Iker. [address], [place], [place], [address] , [place]. tel:[phone] OFFICE/OUTPA TIENT VISIT, [facility], [place], [facility], [address], [place], [place], [address], [place] tel:[phone] [facility] pain (chief complaint)anxie ty1 (chief complaint) Chronic pain syndromePrimar y insomnia 4 Gaston Dong. [address], [place], [place], [address] , [place]. tel:[phone] OFFICE/OUTPA TIENT VISIT, [facility], [place], [facility], [address] [place], [place], [address], [place] tel:[phone] [facility] pain (chief complaint)anxie ty1 (chief complaint)COPD1 (chief complaint)bladd er Ca (chief complaint) Centrilobular emphysemaChron ic pain syndromePrimar y insomniaMalign ant neoplasm of bladder, unspecified 4 Gaston Dong[address], [place], [place], [address] , [place]. tel:[phone] OFFICE/OUTPA TIENT VISIT, [facility], [place], operated [facility], [address], [place], [place], [address], [place] tel:[phone] [facility] pain (chief complaint)anxie ty (chief complaint)thyro id1 (chief complaint)HLP (chief complaint) Chronic pain syndromeHypoth yroidismMixed hyperlipidemia Primary insomniaCentri lobular emphysema 4 Gaston Dong[address], [place], [place], [address] , [place]. tel:[phone] PREV VISIT, EST, [address] & [address] [facility], [address], [place], [place], [address], [place] tel:[phone] [facility] physical (chief complaint) Encounter for general adult medical exam w abnormal findingsCentri lobular emphysemaChron ic pain syndromePrimar y insomniaHypoth yroidismMalign ant neoplasm of bladder, unspecifiedGER D w/o esophagitisCor onary artery disease of [place] coronary artery w/o angina pectoris 4 Feldman Iker. [address], [place], [place], [address] , [place]. tel:[phone] OFFICE/OUTPA TIENT VISIT, [facility], [place], [facility], [address], [place], [place], [address], [place] tel:[phone] [facility] pain (chief complaint)anxie ty1 (chief complaint) Chronic pain syndromePrimar y insomnia May- 4 Feldman Iker. [address], [place], [place], [address] , [place]. tel:[phone] OFFICE/OUTPA TIENT VISIT, [facility], [place], [facility], [address], [place], [place], [address], [place] tel:[phone] [facility] pain (chief complaint)anxie ty1 (chief complaint)COPD1 (chief complaint) Centrilobular emphysemaChron ic pain syndromePrimar y insomnia 4 Feldman Iker. [address], [place], [place], [address] , [place]. tel:[phone] OFFICE/OUTPA TIENT VISIT, [facility], [place], [facility], [address], [place], [place], [address], [place] tel:[phone] [facility] pain (chief complaint)anxie y1 (chief complaint)hypot hyroidism1 (chief complaint) Hypothyroidism Chronic pain syndromePrimar y insomnia 4 Feldman Iker. [address], [place], [place], [address] , [place]. tel:[phone] OFFICE/OUTPA TIENT VISIT, [facility] [place], [facility], [address], [place], [place], [address], [place] tel:[phone] [facility] pain (chief complaint)anxie ty1 (chief complaint) Chronic pain syndromePrimar y insomnia 3 Gaston Dong. [address], [place], [place], [address] , [place]. tel:[phone] OFFICE/OUTPA TIENT VISIT, [facility], [place], [facility], [address], [place], [place], [address], [place] tel:[phone] [facility] pain (chief complaint)pain (chief complaint)anxie ty1 (chief complaint) Chronic pain syndromePrimar y insomnia Jan-3 0-202 3 Gaston Dong. [address], [place], [place], [address] , [place]. tel:[phone] OFFICE/OUTPA TIENT VISIT, [facility], [place], [facility], [address], [place], [place], [address], [place] tel:[phone] [facility] pain (chief complaint)anxie ty1 (chief complaint) Chronic pain syndromePrimar y insomnia Nov-0 2- 3 Gaston Dong. [address], [place], [place], [address] , [place]. tel:[phone] OFFICE/OUTPA TIENT VISIT, [facility], [place], [facility], [address], [place], [place], [address], [place] tel:[phone] [facility] pain (chief complaint)anxie ty1 (chief complaint)hypot hyroidism1 (chief complaint) Chronic pain syndromePrimar y insomniaHypoth yroidism Dec-0 4 3 Gaston Dong[address], [place], [place], [address] , [place]. tel:[phone] OFFICE/OUTPA TIENT VISIT, [facility], [place], [facility], [address], [place], [place], [address], [place] tel:[phone] [facility] pain (chief complaint)anxie ty1 (chief complaint) Chronic pain syndromePrimar y insomnia Nov-0 3 Gaston Dong. [address], [place], [place], [address] , [place]. tel:[phone] OFFICE/OUTPA TIENT VISIT, [facility] [place], [facility], [address], [place], [place], [address], [place] tel:[phone] [facility] PAIN (chief complaint)anxie ty1 (chief complaint)bladd er CA1 (chief complaint) Chronic pain syndromePrimar y insomniaMalign ant neoplasm of bladder, unspecifiedAcq uired renal cystCentrilobu lar emphysema 3 Gaston Dong[address], [place], [place], [address] , [place]. tel:[phone] OFFICE/OUTPA TIENT VISIT, [facility] [place], [facility], [address], [place], [place], [address], [place] tel:[phone] [facility] pain (chief complaint)anxie ty1 (chief complaint)GERD1 (chief complaint) Cervantes's esophagus without dysplasiaChron ic pain syndromePrimar y insomnia 3 Gaston Dong. [address], [place], [place], [address] , [place]. tel:[phone] OFFICE/OUTPA TIENT VISIT, [facility] [place], [facility], [address], [place], [place], [address], [place] tel:[phone] [facility] pain (chief complaint)anxie ty1 (chief complaint)hemae mesis1 (chief complaint)kidne y tumor1 (chief complaint) HematemesisChr onic pain syndromePrimar y insomniaMalign ant neoplasm of bladder, unspecified 3 Gaston Dong[address], [place], [place], [address] , [place]. tel:[phone] OFFICE/OUTPA TIENT VISIT, [facility] [place], [facility], [address], [place], [place], [address], [place] tel:[phone] [facility] hematemesis1 (chief complaint) HematemesisBar rett's esophagus without dysplasiaAther osclerotic heart disease of chalk[place] coronary artery without angina pectoris 3 Gaston Dong. [address], [place], [place], [address] , [place]. tel:[phone] OFFICE/OUTPA TIENT VISIT, [facility], [place], [facility], [address], [place], [place], [address], [place] tel:[phone] [facility] pain (chief complaint)insom nia1 (chief complaint) Chronic pain syndromePrimar y insomnia 3 Gaston Dong[address], [place], [place], [address] , [place]. tel:[phone] PREV VISIT, EST, [address] & [address] [facility], [address], [place], [place], [address], [place] tel:[phone] [facility] physical (chief complaint) Encounter for general adult medical exam w abnormal findingsHypoth yroidismChroni c pain syndromeCentri lobular emphysemaEleva palomo prostate specific antigen [PSA]Asymptoma tic microscopic hematuriaMixed hyperlipidemia Cervantes's esophagus without dysplasiaPrima ry insomnia Jun- 3 Gaston Dong. [address], [place], [place], [address] , [place]. tel:[phone] OFFICE/OUTPA TIENT VISIT, [facility] [place], [facility], [address], [place], [place], [address], [place] tel:[phone] [facility] pain (chief complaint)insom nia1 (chief complaint)HTN (chief complaint)thyro id1 (chief complaint)bladd er CA (chief complaint) Chronic pain syndromePrimar y insomniaHypoth yroidismEssent ial (primary) hypertensionMi xed hyperlipidemia Malignant neoplasm of bladder, unspecified 3 Gaston Dong[address], [place], [place], [address] , [place]. tel:[phone] OFFICE/OUTPA TIENT VISIT, [facility] [place], [facility], [address], [place], [place], [address], [place] tel:[phone] [facility] pain (chief complaint)insom nia1 (chief complaint)kidne y1 (chief complaint)COPD1 (chief complaint) Chronic pain syndromePrimar y insomniaOther specified disorder of kidneyCentrilo bular emphysema 3 Feldman Iker. [address], [place], [place], [address] , [place]. tel:[phone] OFFICE/OUTPA TIENT VISIT, [facility] [place], [facility], [address], [place], [place], [address], [place] tel:[phone] [facility] pain (chief complaint)insom nia1 (chief complaint)tobac co1 (chief complaint)bladd er CA1 (chief complaint) Chronic pain syndromePrimar y insomniaMalign ant neoplasm of bladder, unspecifiedTob acco use 3 Gaston oDng. [address], [place], [place], [address] , [place]. tel:[phone] OFFICE/OUTPA TIENT VISIT, [facility] [place], [facility], [address], [place], [place], [address], [place] tel:[phone] [facility] pain (chief complaint)insom nia1 (chief complaint) Chronic pain syndromePrimar y insomnia 2 Gaston Dong. [address], [place], [place], [address] , [place]. tel:[phone] OFFICE/OUTPA TIENT VISIT, [facility] [place], [facility], [address], [place], [place], [address], [place] tel:[phone] [facility] pain (chief complaint)insom nia1 (chief complaint) Chronic pain syndromePrimar y insomnia 2 Feldman Iker. [address], [place], [place], [address] , [place]. tel:[phone] OFFICE/OUTPA TIENT VISIT, [facility] [place], [facility], [address], [place], [place], [address], [place] tel:[phone] [facility] pain (chief complaint)insom nia1 (chief complaint)barre tt1 (chief complaint) Chronic pain syndromePrimar y insomniaBarret t's esophagus without dysplasiaMalig nant neoplasm of bladder, unspecified 2 Gaston Iker. [address], [place], [place], [address] , [place]. tel:[phone] OFFICE/OUTPA TIENT VISIT, [facility] [place], [facility], [address] [place] [place], [address], [place] tel:[phone] [facility] pain (chief complaint)insom nia1 (chief complaint)COPD1 (chief complaint)thyro id1 (chief complaint) Chronic pain syndromeBarret t's esophagus without dysplasiaPrima ry insomniaHypoth yroidismCentri lobular emphysema 2 Feldman Iker. [address], [place], [place], [address] , [place]. tel:[phone] OFFICE/OUTPA TIENT VISIT, [facility] [place], [facility], [address] [place], [place], [address], [place] tel:[phone] [facility] pain (chief complaint)insom nia1 (chief complaint)CAD (chief complaint) Coronary artery disease of [place] coronary artery w/o angina pectorisChroni c pain syndromePrimar y insomnia 2 Feldman Iker. [address], [place], [place], [address] , [place]. tel:[phone] OFFICE/OUTPA TIENT VISIT, [facility] [place], [facility], [address], [place], [place], [address], [place] tel:[phone] [facility] pain (chief complaint)insom nia1 (chief complaint) Chronic pain syndromePrimar y insomnia 2 Feldman Iker. [address], [place], [place], [address] , [place]. tel:[phone] OFFICE/OUTPA TIENT VISIT, [facility] [place], [address] [place] [place], [address], [place] tel:[phone] [facility] pain (chief complaint)insom nia1 (chief complaint) Chronic pain syndromePrimar y insomnia 2 Feldman Iker. [address], [place], [place], [address] , [place]. tel:[phone] OFFICE/OUTPA TIENT VISIT, EST [facility], [address], [place], [place], [address], [place] tel:[phone] [facility] pain (chief complaint)insom nia1 (chief complaint)Dayton tt1 (chief complaint)renal CA (chief complaint) Polyp of colonBarrett's esophagus without dysplasiaInsom niaChronic pain syndromeCa of left kidney, except renal pelvis 2 Efldman Iker. [address], [place], [place], [address] , [place]. tel:[phone] OFFICE/OUTPA TIENT VISIT, EST [facility], [address], [place], [place], [address], [place] tel:[phone] [facility] pain (chief complaint)insom nia1 (chief complaint)vitam in D (chief complaint)colon polyp (chief complaint)emphy sema1 (chief complaint) Chronic pain syndromeInsomn iaVitamin D deficiencyPoly p of colonEmphysema 2 Gaston Iker[address], [place], [place], [address] , [place]. tel:[phone] PREV VISIT, EST, [address] & [address] [facility], [address], [place], [place], [address], [place] tel:[phone] [facility] physical (chief complaint) Hyperlipidemia Chronic pain syndromeMalign ant neoplasm of bladder, unspecifiedBar rett's esophagus without dysplasiaEmphy semaFolate deficiencyHypo calcemiaHypoth yroidismInsomn iaEncounter for general adult medical exam w abnormal findings 2 Gaston Iker. [address], [place], [place], [address] , [place]. tel:[phone] OFFICE/OUTPA TIENT VISIT, EST [facility], [address], [place], [place], [address], [place] tel:[phone] [facility] pain (chief complaint)insom nia1 (chief complaint)bladd er tumor1 (chief complaint)thyro id1 (chief complaint)CAD1 (chief complaint) Chronic pain syndromeInsomn iaMalignant neoplasm of bladder, unspecifiedHyp erlipidemiaHyp othyroidism 2 Gaston Pickett [address], [place], [place], [address] , [place]. tel:[phone] OFFICE/OUTPA TIENT VISIT, [facility] [place], [address], [place], [address], [place] tel:[phone] [facility] pain (chief complaint)bladd er CA (chief complaint)tobac co (chief complaint)insom nia1 (chief complaint)GERD1 (chief complaint) Chronic pain syndromeInsomn iaBarrett's esophagus without dysplasiaMalig nant neoplasm of bladder, unspecifiedTob acco use 2 Gaston Pickett [address], [place], [place], [address] , [place]. tel:[phone] OFFICE/OUTPA TIENT VISIT, [facility] [place], [address], [place], [place], [address], [place] tel:[phone] [facility] pain (chief complaint)insom nia1 (chief complaint)tobac co1 (chief complaint)bladd er CA (chief complaint)GERD1 (chief complaint) Malignant neoplasm of bladder, unspecifiedIns omniaChronic pain syndromeTobacc o useBarrett's esophagus without dysplasia 1 Gaston Pickett [address], [place], [place], [address] , [place]. tel:[phone] OFFICE/OUTPA TIENT VISIT, [facility] [place], [address], [place], [address], [place] tel:[phone] [facility] pain (chief complaint)insom nia1 (chief complaint)GERD1 (chief complaint)bladd er CA1 (chief complaint) InsomniaChroni c pain syndromeBarret t's esophagus without dysplasiaMalig nant neoplasm of bladder, unspecified 1 Gaston Pickett [address], [place], [place], [address] , [place]. tel:[phone] OFFICE/OUTPA TIENT VISIT, [facility] [place], [address] [place], [address], [place] tel:[phone] [facility] pain (chief complaint)insom nia1 (chief complaint)thyro id1 (chief complaint)bladd er CA (chief complaint) InsomniaHypoth yroidismMalign ant neoplasm of bladder, unspecifiedChr onic pain syndrome 1 Feldman Iker. [address], [place], [place], [address] , [place]. tel:[phone] OFFICE/OUTPA TIENT VISIT, [facility] [place], [facility], [address], [place], [place], [address], [place] tel:[phone] [facility] pain (chief complaint)insom nia1 (chief complaint)COPD1 (chief complaint)bladd er CA (chief complaint) InsomniaChroni c pain syndromeTobacc o useEmphysemaMa lignant neoplasm of bladder, unspecified Nov- 1 Feldman Iker. [address], [place], [place], [address] , [place]. tel:[phone] OFFICE/OUTPA TIENT VISIT, [facility] [place], [address], [place], [place], [address], [place] tel:[phone] [facility] pain (chief complaint)insom nia1 (chief complaint)tobac co1 (chief complaint) Chronic pain syndromeInsomn iaTobacco use 1 Feldman Iker. [address], [place], [place], [address] , [place]. tel:[phone] OFFICE/OUTPA TIENT VISIT, [facility] [place], [address] [place], [address], [place] tel:[phone] [facility] pain (chief complaint)insom nia1 (chief complaint)renal 1 (chief complaint) LeukocytosisAc pokagon renal failureHypokal emiaInsomniaCh ronic pain syndromeEssent ial (primary) hypertension 1 Gaston Pickett [address], [place], [place], [address] , [place]. tel:[phone] OFFICE/OUTPA TIENT VISIT, [facility] [place], operated by [facility], [address], [place], [place], [address], [place] tel:[phone] [facility] Medicine pain1 (chief complaint)insom nia1 (chief complaint)barre tt (chief complaint)weigh t loss1 (chief complaint) Chronic pain syndromeInsomn iaBarrett's esophagus without dysplasiaAbnor mal weight loss 1 Gaston Dong. [address], [place], [place], [address] , [place]. tel:[phone] OFFICE/OUTPA TIENT VISIT, [facility], [place], operated by [facility], [address], [place], [place], [address], [place] tel:[phone] [facility] pain (chief complaint)insom na1 (chief complaint) Chronic pain syndromeInsomn ia 1 Gaston Dong. [address], [place], [place], [address] , [place]. tel:[phone] OFFICE/OUTPA TIENT VISIT, [facility], [place], operated by [facility], [address], [place], [place], [address], [place] tel:[phone] [facility] pain (chief complaint)insom nia1 (chief complaint)vitam in D (chief complaint) Chronic pain syndromeInsomn iaVitamin D deficiency, unspecified 1 Gaston Pickett [address], [address], [place], [place], [address] , [place]. tel:[phone] OFFICE/OUTPA TIENT VISIT, [facility], [place], operated by [facility], [address], [place], [place], [address], [place] tel:[phone] [facility] pain (chief complaint)insom nia1 (chief complaint) Chronic pain syndromeInsomn ia 1 Gaston Dong. [address], [place], [place], [address] , [place]. tel:[phone] OFFICE/OUTPA TIENT VISIT, [facility], [place], operated by [facility], [address] [place], [address], [place] tel:[phone] [facility] pain (chief complaint)insom nia1 (chief complaint)COPD1 (chief complaint) Chronic pain syndromeEmphys emaInsomnia May- 1 Gaston Dong. [address], [place], [place], [address] , [place]. tel:[phone] PREV VISIT, EST, [address] & OVER [facility], [address], [place], [place], [address], [place] tel:[phone] [facility] physical (chief complaint) Encounter for general adult medical exam w abnormal findingsChroni c pain syndromeEmphys emaInsomniaHyp othyroidismCor onary artery disease of [place] coronary artery w/o angina pectorisMalign ant neoplasm of bladder, unspecified 1 Gaston Dong. [address], [place], [place], [address] , [place]. [phone] OFFICE/OUTPA TIENT VISIT, [facility], [place], operated by [facility], [address] [place], [address], [place] tel:[phone] [facility] pain (chief complaint)insom nia1 (chief complaint)COPD1 (chief complaint) EmphysemaChron ic pain syndromeInsomn ia 0 Gaston Dong. [address], [place], [place], [address] , [place]. tel:[phone] OFFICE/OUTPA TIENT VISIT, [facility], [place], operated by [facility], [address] [place], [address], [place] tel:[phone] [facility] pain1 (chief complaint)insom nia1 (chief complaint)hypot hyroidism1 (chief complaint)HLP (chief complaint) Hypothyroidism Hyperlipidemia Chronic pain syndromeInsomn ia 0 Gaston Dong. [address], [place], [place], [address] , [place]. tel:[phone] OFFICE/OUTPA TIENT VISIT, [facility], [place], operated by [facility], [address] [place], [address], tel:[phone] [facility] pain (chief complaint)insom nia1 (chief complaint)hypot hyroidism1 (chief complaint)CAD1 (chief complaint) Chronic pain syndromeInsomn iaCoronary artery disease of [place] coronary artery w/o angina pectorisHypoth yroidism 0 Gaston Dong. [address], [place], [place], [address] , [place]. tel:[phone] OFFICE/OUTPA TIENT VISIT, [facility], [place], operated by [facility], [address] [place], [address], [place] tel:[phone] [facility] pain (chief complaint)insom nia1 (chief complaint)tobac co1 (chief complaint) Chronic pain syndromeInsomn iaTobacco use 0 Gaston Dong. [address], [address] [place], [address] , [place]. tel:[phone] OFFICE/OUTPA TIENT VISIT, [facility], [place], operated by [facility], [address] [place], [address], [place] tel:[phone] [facility] pain (chief complaint)insom nia1 (chief complaint)tobac co (chief complaint)COPD1 (chief complaint) Chronic pain syndromeInsomn iaEmphysemaTob acco use 0 0 Gaston Dong. [address], [place], [place], [address] , [place]. tel:[phone] OFFICE/OUTPA TIENT VISIT, EST [facility], [address] [place], [address], [place] tel:[phone] [facility] Medicine pain (chief complaint)insom nia1 (chief complaint)tobac co1 (chief complaint) Chronic pain syndromeInsomn iaTobacco use 0 Gaston Dong. [address], [place], [place], [address] , . [phone] OFFICE/OUTPA TIENT VISIT, [facility], [place], operated by [facility], [address] [place], [address], [phone] [facility] pain (chief complaint)insom nia1 (chief complaint) Chronic pain syndromeInsomn iaMalignant neoplasm of bladder, unspecified 0 Gaston Iker. [address], [place], [place], [address] , [place]. [phone] OFFICE/OUTPA TIENT VISIT, [facility], [place], operated by [facility], [address] [place], [address], tel:[phone] [facility] Medicine pain1 (chief complaint)anxie ty1 (chief complaint)COPD1 (chief complaint)bladd er CA1 (chief complaint) Chronic pain syndromeInsomn iaEmphysemaMal ignant neoplasm of bladder, unspecified 0 Gaston Dong. [address], [place], [place], [address] , [place]. tel:[phone] OFFICE/OUTPA TIENT VISIT, [facility], [place], operated by [facility], [address] [place], [address], [place] tel:[phone] [facility] pain (chief complaint)anxie ty1 (chief complaint)D (chief complaint) InsomniaChroni c pain syndromeVitami n D deficiency, unspecified 0 Gaston Dong. [address], [place], [place], [address] , [place]. tel:[phone] OFFICE/OUTPA TIENT VISIT, [facility], [place], operated by [facility], [address] [place], [address], [place] tel:[phone] [facility] Medicine pain (chief complaint)anxie ty1 (chief complaint) Chronic pain syndromeInsomn ia Apr-0 0 Gaston Dong. [address], [place], [place], [address] , [place]. tel:[phone] OFFICE/OUTPA TIENT VISIT, [facility], [place], operated by [facility], [address], [place], [place], [address], tel:[phone] [facility] pain1 (chief complaint)anxie ty1 (chief complaint)Dayton tt1 (chief complaint)bladd er1 (chief complaint)HTn (chief complaint) Cervantes's esophagus without dysplasiaChron ic pain syndromeInsomn iaMalignant neoplasm of bladder, unspecifiedEss ential (primary) hypertension 0 Gaston Dong. [address], [place], [place], [address] , [place]. tel:[phone] Referring Provider: Iker Feldman [address] [place] [address] [place], [address]. tel:[phone] OFFICE/OUTPA TIENT VISIT, [facility], [place], operated by [facility], [address] [employer] [place], [address], [place] tel:[phone] [facility] copd (chief complaint)pain1 (chief complaint)anxie ty1 (chief complaint)Dayton tt1 (chief complaint)CAD (chief complaint) InsomniaBarret t's esophagus without dysplasiaChron ic pain syndromeEmphys emaCoronary artery disease of [place] coronary artery w/o angina pectoris 0 Gaston Dong. [address], [place], [place], [address] , [place]. tel:[phone] Referring Provider: Iker Feldman [address] [facility] [address], [place], [place], [address]. tel:[phone] OFFICE/OUTPA TIENT VISIT, [facility], [place], operated by [facility], [address] [employer] [place], [address], [place] tel:[phone] [facility] anxiety1 (chief complaint)pain (chief complaint)bladd er CA (chief complaint)Dayton tt1 (chief complaint)COPD1 (chief complaint) Malignant neoplasm of bladder, unspecifiedEmp hysemaBarrett' s esophagus without dysplasiaChron ic pain syndromeInsomn ia Andrew- 0 Gaston Dong. [address], [place], [place], [address] , [place]. tel:[phone] Referring Provider: Franky Dunham [address], [place], [place], [address]. tel:[phone] OFFICE/OUTPA TIENT VISIT, [facility], [place], operated [facility], [address], [place], [place], [address], tel:[phone] [facility] chronic pain1 (chief complaint)anxie ty1 (chief complaint)HTN (chief complaint)bladd er CA (chief complaint) Chronic pain syndromeMalign ant neoplasm of bladder, unspecifiedIns omniaEssential (primary) hypertensionCo ronary artery disease of [place] coronary artery w/o angina pectoris 9 Gaston Dong. [address], [place], [place], [address] , [place]. tel:[phone] Referring Provider: Franky Dunham [facility], [place], [place], [address]. tel:[phone] PREV VISIT, EST, [address] & OVER [facility], [address], [place], [place], [address], [place] tel:[phone] [facility] Medicine physical (chief complaint) Encounter for general adult medical exam w abnormal findingsEmphys emaBarrett's esophagus without dysplasiaMalig nant neoplasm of bladder, unspecifiedChr onic pain syndromeHypoth yroidismCorona ry artery disease of [place] coronary artery w/o angina pectoris 9 Gaston Dong. [address], [place], [place], [address] , [place]. [phone] Referring Provider: Franky Dunham [address], [place], [place], [address]. tel:[phone] OFFICE/OUTPA TIENT VISIT, [facility], [place], operated [facility], [address] [employer] [place], [address], [place] tel:[phone] [facility] chronic pain1 (chief complaint)insom nia1 (chief complaint)COPD (chief complaint)HTN (chief complaint) EmphysemaChron ic pain syndromeInsomn iaCoronary artery disease of [place] coronary artery w/o angina pectoris 9 Feldman Iker. [address], [place], [place], [address] , [place]. tel:[phone] OFFICE/OUTPA TIENT VISIT, [facility], [place], operated by [facility], [address], [place], [place], [address], [place] tel:[phone] [facility] emphysema1 (chief complaint)chron ic pain1 (chief complaint)insom nia1 (chief complaint)GERD1 (chief complaint) EmphysemaChron ic pain syndromeInsomn iaBarrett's esophagus without dysplasia 9 Feldman Iker. [address], [place], [place], [address] , [place]. tel:[phone] OFFICE/OUTPA TIENT VISIT, [facility], [place], operated by [facility], [address], [place], [place], [address], [place] tel:[phone] [facility] chronic pain1 (chief complaint)insom nia1 (chief complaint) Chronic pain syndromeInsomn ia Oct- 9 Feldman Iker. [address], [place], [place], [address] , [place]. tel:[phone] OFFICE/OUTPA TIENT VISIT, [facility], [place], operated [facility], [address], [place], [place], [address], [place] tel:[phone] [facility] chronic pain1 (chief complaint)insom nia1 (chief complaint)COPD1 (chief complaint)bladd er tumor1 (chief complaint) Chronic pain syndromeInsomn iaEmphysemaMal ignant neoplasm of bladder, unspecified 9 Feldman Iker. [address], [place], [place], [address] , [place]. tel:[phone] OFFICE/OUTPA TIENT VISIT, [facility], [place], operated [facility], [address], [place], [place], [address], [place] tel:[phone] [facility] chronic pain (chief complaint)anxie ty1 (chief complaint)bladd er CA (chief complaint)lung (chief complaint) Chronic pain syndromeInsomn iaScreening for lung caMalignant neoplasm of bladder, unspecified 9 Gaston Dong. [address], [place], [place], [address] , [place]. tel:[phone] Referring Provider: Franky [address], [place], [place], [address]. tel:[phone] OFFICE/OUTPA TIENT VISIT, [facility], [place], operated [facility], [address] [place] [place], [address], [place] tel:[phone] [facility] vitamin D1 (chief complaint)thyro id1 (chief complaint)chron ic pain1 (chief complaint)insom nia1 (chief complaint) Hypothyroidism InsomniaChroni c pain syndromeVitami n D deficiency, unspecified 9 Gaston Dong. [address], [place], [place], [address] , [place]. tel:[phone] Referring Provider: Franky Dunham [address] [facility] [place], [address]. tel:[phone] OFFICE/OUTPA TIENT VISIT, [facility], [place], operated [facility], [address] [place], [address], [place] tel:[phone] [facility] chronic pain (chief complaint)insom nia1 (chief complaint) Chronic pain syndromeInsomn ia 9 Gaston Dong. [address] [place], [address] , [place]. tel:[phone] Referring Provider: Franky Dunham [address], [place], [place], [address]. tel:[phone] OFFICE/OUTPA TIENT VISIT, [facility], [place], operated [facility], [address] [place], [address], [place] tel:[phone] [facility] chronci pain1 (chief complaint)hypot hyroidism1 (chief complaint)CAD1 (chief complaint)lung (chief complaint) Chronic pain syndromeHypoth yroidismCorona ry artery disease of [place] coronary artery w/o angina pectorisScreen ing for lung caInsomnia 9 Gaston Dong. [address], [place], [place], [address] , [place]. tel:[phone] Referring Provider: Franky [address], [place], [place], [address]. tel:[phone] OFFICE/OUTPA TIENT VISIT, [facility], [place], operated [facility], [address], [place], [place], [address], [place] tel:[phone] [facility] chronic pain1 (chief complaint)insom nia1 (chief complaint) Chronic pain syndromeInsomn ia 9 Gaston Dong. [address], [place], [place], [address] , [place]. tel:[phone] Referring Provider: Franky Dunham [facility], [place], [place], [address]. tel:[phone] OFFICE/OUTPA TIENT VISIT, [facility], [place], [facility], [address], [place], [place], [address], [place] tel:[phone] [facility] CAD1 (chief complaint)Dayton tt1 (chief complaint)bladd er tumor1 (chief complaint)chron ic pain1 (chief complaint)insom nia1 (chief complaint) Cervantes's esophagus without dysplasiaChron ic pain syndromeCorona ry artery disease of [place] coronary artery w/o angina pectorisEmphys emaInsomnia 9 Gaston Dong. [address], [place], [place], [address] , [place]. tel:[phone] Referring Provider: Franky Dunham [address], [place], [place], [address]. tel:[phone] OFFICE/OUTPA TIENT VISIT, [facility], [place], operated [facility], [address], [place], [place], [address], [place] tel:[phone] [facility] chronic pain (chief complaint)insom nia1 (chief complaint)bladd er CA1 (chief complaint) Chronic pain syndromeInsomn iaMalignant neoplasm of bladder, unspecified Dec-2 1-201 8 Gaston Dong. [address], [place], [place], [address] , [place]. tel:[phone] Referring Provider: Iker Feldman, [address], [place], [place], [address]. tel:[phone] OFFICE/OUTPA TIENT VISIT, EST [facility], [address], [place], [place], [address], [place] tel:[phone] [facility] chronic pain (chief complaint)anxie ty1 (chief complaint)renal lesion (chief complaint)Dayton tt (chief complaint) InsomniaMalign ant neoplasm of bladder, unspecifiedChr onic pain syndromeBarret t's esophagus without dysplasia 8 Gaston Dong. [address], [place], [place], [address] , [place]. tel:[phone] Referring Provider: Iker Feldman [address] [facility] [address], [place], [place], [address]. tel:[phone] OFFICE/OUTPA TIENT VISIT, [facility], [place], operated [facility], [address], [place], [place], [address], [place] tel:[phone] [facility] thyroid1 (chief complaint)chron ic pain1 (chief complaint)insom nia1 (chief complaint)COPD1 (chief complaint)bladd er tumor1 (chief complaint) EmphysemaInsom niaOther cystic kidney diseasesHypoth yroidismChroni c pain syndrome 8 Gaston Dong. [address], [place], [place], [address] , [place]. tel:[phone] Referring Provider: Franky Dunham [address], [place], [place], [address]. tel:[phone] PREV VISIT, EST, AGE 40-62 [facility], [address], [place], [place], [address], [place] tel:[phone] [facility] Physical (chief complaint) Encounter for general adult medical exam w abnormal findingsChroni c pain syndromeInsomn iaMalignant neoplasm of bladder, unspecifiedCor onary artery disease of [place] coronary artery w/o angina pectorisHypoth yroidismEmphys zuleima 8 Gaston Dong. [address], [place], [place], [address] , [place]. tel:[phone] Referring Provider: [address], [place], [place], [address]. tel:[phone] OFFICE/OUTPA TIENT VISIT, [facility] [place], [facility], [address] [place], [address], [place] tel:[phone] [facility] bladder CA (chief complaint)kidne y cyst1 (chief complaint)chron ic pain1 (chief complaint)insom nia1 (chief complaint) Malignant neoplasm of bladder, unspecifiedOth er cystic kidney diseasesChroni c pain syndromeInsomn ia 0 8 Gaston Pickett [address], [place], [place], [address] , [place]. tel:[phone] Referring Provider: [address], [place], [place], [address]. tel:[phone] OFFICE/OUTPA TIENT VISIT, [facility], [place], operated [facility], [address] [place], [address], [place] tel:[phone] [facility] chronic pain1 (chief complaint)anxie ty1 (chief complaint)COPD1 (chief complaint)renal 1 (chief complaint) EmphysemaChron ic pain syndromeBladde r disorder, unspecifiedIns omnia 8 Gaston Pickett [address], [place], [place], [address] , [place]. tel:[phone] OFFICE/OUTPA TIENT VISIT, [facility], [place], operated [facility], [address] [place], [address], [place] tel:[phone] [facility] kidney1 (chief complaint)chron ic pain (chief complaint)insom nia1 (chief complaint) Chronic pain syndromeBladde r disorder, unspecifiedOth er cystic kidney diseases 8 Feldman Iker. [address], [place], [place], [address] , [place]. tel:[phone] Referring Provider: Franky Dunham [address] [facility], [place], [place], [address]. tel:[phone] OFFICE/OUTPA TIENT VISIT, [facility], [place], operated [facility], [address], [place], [place], [address], [place] tel:[phone] [facility] hypothyroidism (chief complaint)HLP (chief complaint)chron ic pain1 (chief complaint)insom nia1 (chief complaint) Hypothyroidism Hyperlipidemia Chronic pain syndromeInsomn ia 8 Gaston Dong. [address], [place], [place], [address] , [place]. tel:[phone] Referring Provider: Iker Feldman, [address]y [address] [facility], [place], [place], [address]. tel:[phone] OFFICE/OUTPA TIENT VISIT, [facility], [place], operated [facility], [address] [place] [place], [address], [place] tel:[phone] [facility] chronic pain (chief complaint)insom nia1 (chief complaint)CAD1 (chief complaint)COPD1 (chief complaint) Chronic pain syndromeCorona ry artery disease of [place] coronary artery w/o angina pectorisInsomn iaTobacco use 8 Gaston Dong. [address], [place], [place], [address] , [place]. tel:[phone] Referring Provider: Franky Dunham [address], [place], [place], [address]. tel:[phone] OFFICE/OUTPA TIENT VISIT, [facility], [place], operated [facility], [address] [place], [address], [place] tel:[phone] [facility] chronic pain (chief complaint)insom nia1 (chief complaint)tobac co1 (chief complaint) Chronic pain syndromeInsomn iaTobacco use 8 Gaston Dong. [address], [place], [place], [address] , [place]. tel:[phone] OFFICE/OUTPA TIENT VISIT, [facility], [place], operated [facility], [address], [place], [place], [address], [place] tel:[phone] [facility] chronic pain1 (chief complaint)anxie ty1 (chief complaint)tobac co1 (chief complaint)Dayton tt (chief complaint) Cervantes's esophagus without dysplasiaInsom niaChronic pain syndromeEmphys zuleima 8 Gaston Dong. [address], [place], [place], [address] , [place]. tel:[phone] Referring Provider: Iker Feldman, [address], [place], [place], [address]. tel:[phone] OFFICE/OUTPA TIENT VISIT, [facility], [place], operated [facility], [address], [place], [place], [address], [place] tel:[phone] [facility] chronic pain1 (chief complaint)insom nia1 (chief complaint) InsomniaChroni c pain syndrome Fe 8 Gaston Dong. [address], [place], [place], [address] , [place]. tel:[phone] OFFICE/OUTPA TIENT VISIT, [facility] [place], operated [facility], [address], [place], [place], [address], [place] tel:[phone] [facility] COPD1 (chief complaint)chron ic pain1 (chief complaint)insom nia1 (chief complaint)barre tt1 (chief complaint) Cervantes's esophagus without dysplasiaEmphy semaInsomniaCh ronic pain syndrome 8 Gaston Dong. [address], [place], [place], [address] , [place]. tel:[phone] Referring Provider: Iker Feldman [address], [place], [place], [address]. tel:[phone] OFFICE/OUTPA TIENT VISIT, [facility], [place], operated [facility], [address], [place], [place], [address], [place] tel:[phone] [facility] sob (chief complaint)chron ic pain1 (chief complaint)insom nia1 (chief complaint) EmphysemaInsom niaChronic pain syndrome Dec- 7 Gaston Dong. [address], [place], [place], [address] , . [phone] Referring Provider: Franky Dunham [address], [place], [place], [address]. tel:[phone] OFFICE/OUTPA TIENT VISIT, [facility], [place], operated [facility], [address], [place], [place], [address], [place] tel:[phone] [facility] chrnoic pain (chief complaint)anxei ty1 (chief complaint) Chronic pain syndromeInsomn ia 7 Gaston Pickett [address], [place], [place], [address] , [place]. [phone] [id number] Referring Provider: Franky Dunham [facility], [place], [place], [address]. tel:[phone] OFFICE/OUTPA TIENT VISIT, [facility], [place], operated [facility], [address], [place], [place], [address], [place] tel:[phone] [facility] chronic pain1 (chief complaint)anxie ty1 (chief complaint)thyro id1 (chief complaint)[place] tt1 (chief complaint) InsomniaHypoth yroidismBarret t's esophagus without dysplasiaChron ic pain syndrome Dec- 7 Gaston Pickett [address], [place], [place], [address] , [place]. [phone] Referring Provider: Franky Dunham [address], [place], [place], [address]. tel:[phone] OFFICE/OUTPA TIENT VISIT, [facility], [place], operated [facility], [address] [place] [place], [address], [place] tel:[phone] [facility] chronic pain (chief complaint)anxie ty1 (chief complaint)ED (chief complaint) Chronic pain syndromeInsomn iaMale erectile dysfunction, unspecified Sep-0 7 Gaston [address], [place], [place], [address] , [place]. [phone] Referring Provider: Franky Dunham [address], [place], [place], [address]. tel:[phone] PREV VISIT, EST, AGE 40-62 [facility], [address], [place], [place], [address], [place] [phone] [facility] Medicine Physical (chief complaint) Encounter for general adult medical exam w abnormal findingsHypoth yroidismInsomn iaAtherosclero tic heart disease of [place] coronary artery without angina pectoris 7 Gaston Pickett [address], [address], [place], [place], [address] , [place]. tel:[phone] Referring Provider: Franky Dunham [address], [place], [place], [address]. tel:[phone] OFFICE/OUTPA TIENT VISIT, EST [facility], [address], [place], [place], [address], [place] [phone] [facility] Cervantes (chief complaint)insom nia1 (chief complaint)chron ic pain1 (chief complaint)CAD (chief complaint) Cervantes's esophagus without dysplasiaChron ic pain syndromeAthero sclerotic heart disease of [place] coronary artery without angina pectorisInsomn ia 7 Gaston [address], [place], [place], [address] , [place]. tel:[phone] Referring Provider: Franky Dunham [address], [place], [place], [address]. tel:[phone] OFFICE/OUTPA TIENT VISIT, EST [facility], [address], [place], [place], [address], [place] tel:[phone] [facility] chronic pain1 (chief complaint)insom nia1 (chief complaint) Chronic pain syndromeInsomn ia 7 Gaston Wil[address], [place], [place], [address] , [place]. tel:[phone] Referring Provider: Franky Dunham [address], [place], [place], [address]. tel:[phone] OFFICE/OUTPA TIENT VISIT, [facility], [place], operated [facility], [address], [place], [place], [address], [place] tel:[phone] [facility] CAD (chief complaint)thyro id1 (chief complaint)hep C (chief complaint)chron ic pain1 (chief complaint)anxie ty1 (chief complaint) Hypothyroidism Atheroscleroti c heart disease of [place] coronary artery without angina pectorisInsomn iaHepatitis C 7 Gaston Pickett [address] [facility] [address], [place], [place], [address] , [place]. tel:[phone] Referring Provider: Franky Dunham [facility], [place], [place], [address]. tel:[phone] OFFICE/OUTPA TIENT VISIT, [facility], [place], operated [facility], [address], [place], [place], [address], [place] tel:[phone] [facility] chronic pain (chief complaint)insom nia1 (chief complaint)hep C (chief complaint)HLP (chief complaint) InsomniaHyperl ipidemiaEncoun ter for screening for other viral diseasesHypoth yroidism 7 Gaston Pickett [address], [place], [place], [address] , [place]. tel:[phone] Referring Provider: Franky Dunham [address], [place], [place], [address]. tel:[phone] OFFICE/OUTPA TIENT VISIT, [facility], [place], operated [facility], [address] [place], [address], [place] tel:[phone] [facility] emphysema1 (chief complaint)chron ic pain (chief complaint)insom nia1 (chief complaint)CAD1 (chief complaint) COPDInsomniaCh ronic pain syndromeAthero sclerotic heart disease of [place] coronary artery without angina pectoris 7 Gaston Dong. [address], [place], [place], [address] , [place]. tel:[phone] Referring Provider: Franky Dunham [address], [place], [place], [address]. tel:[phone] OFFICE/OUTPA TIENT VISIT, [facility], [place], operated [facility], [address], [place], [place], [address], [place] tel:[phone] [facility] chronic pain1 (chief complaint)insom nia1 (chief complaint)CAD (chief complaint)tobac co1 (chief complaint) InsomniaTobacc o useChronic pain syndromeAthero sclerotic heart disease of [place] coronary artery without angina pectoris Gaston Dong. [address], [place], [place], [address] , [place]. [phone] Referring Provider: Franky Dunham [address], [place], [place], [address]. tel:[phone] OFFICE/OUTPA TIENT VISIT, [facility], [place], operated [facility], [address], [place], [place], [address], [place] tel:[phone] [facility] chronic pain (chief complaint)insom nia1 (chief complaint)tobac co1 (chief complaint) Chronic pain syndromeInsomn iaTobacco use 7 Gaston Dong. [address], [place], [place], [address] , [place]. tel:[phone] Referring Provider: Franky Dunham [address], [place], [place], [address]. tel:[phone] OFFICE/OUTPA TIENT VISIT, [facility], [place], operated [facility], [address], [place], [place], [address], [place] tel:[phone] [facility] chronic pain1 (chief complaint)anxie ty1 (chief complaint)ED (chief complaint)GERD1 (chief complaint) Cervantes's esophagus without dysplasiaChron ic pain syndromeInsomn iaMale erectile dysfunction, unspecified 6 Gaston Dong. [address], [place], [place], [address] , [place]. tel:[phone] Referring Provider: Franky Dunham [address], [place], [place], [address]. tel:[phone] OFFICE/OUTPA TIENT VISIT, [facility], [place], operated [facility], [address], [place], [place], [address], [place] tel:[phone] [facility] chronic pain (chief complaint)anxie ty1 (chief complaint) Chronic pain syndromeInsomn ia Jan- 6 Gaston Dong. [address], [place], [place], [address] , [place]. tel:[phone] Referring Provider: Franky Dunham [address], [place], [place], [address]. tel:[phone] OFFICE/OUTPA TIENT VISIT, [facility], [place], operated [facility], [address], [place], [place], [address], [place] tel:[phone] [facility] chronic pain (chief complaint)anxie ty1 (chief complaint)hypot hyroidism (chief complaint)HTN (chief complaint) Chronic pain syndromeInsomn iaEssential (primary) hypertensionHy pothyroidism 6 Gaston Dong. [address], [place], [place], [address] , [place]. tel:[phone] Referring Provider: Franky Dunham [address], [place], [place], [address]. tel:[phone] OFFICE/OUTPA TIENT VISIT, [facility], [place], operated [facility], [address], [place], [place], [address], [place] tel:[phone] [facility] chronic pain1 (chief complaint)anxie ty1 (chief complaint)GERD1 (chief complaint)HTN (chief complaint) Chronic pain syndromeBarret t's esophagus without dysplasiaEssen tial (primary) hypertensionAn xiolytic dependence Sep-3 0201 6 Gaston Dong. [address], [place], [place], [address] , [place]. tel:[phone] Referring Provider: Franky Dunham [address], [place], [place], [address]. tel:[phone] OFFICE/OUTPA TIENT VISIT, [facility], [place], [facility], [address] [place], [address], tel:[phone] [facility] chronic pain (chief complaint)anxie ty1 (chief complaint) Chronic pain syndromeAnxiol ytic dependence 6 Gaston Dong. [address], [place], [place], [address] , [place]. tel:[phone] Referring Provider: Iker Feldman, Franky [facility], [place], [place], [address]. tel:[phone] OFFICE/OUTPA TIENT VISIT, [facility], [place], [facility], [address] [place], [address], [place] tel:[phone] [facility] CAD (chief complaint)HLP (chief complaint)hypot hyroidism (chief complaint)chron ic pain (chief complaint) Atheroscleroti c heart disease of [place] coronary artery without angina pectorisAnxiol ytic dependenceHype rlipidemiaChro flores pain syndrome 6 Gaston Dong. [address], [facility], [place], [place], [address] , [place]. tel:[phone] Referring Provider: [facility] [place], [address]. tel:[phone] OFFICE/OUTPA TIENT VISIT, [facility], [place], [facility], [address] [place], [address], [place] tel:[phone] [facility] chronic pain (chief complaint)insom nia1 (chief complaint)ED1 (chief complaint) Chronic pain syndromeInsomn iaOther male erectile dysfunctionCor onary artery disease of [place] coronary artery w/o angina pectoris 6 Gaston Pickett [address], [place], [place], [address] , [place]. tel:[phone] Referring Provider: Franky Dunham [facility], [place], [place], [address]. tel:[phone] OFFICE/OUTPA TIENT VISIT, [facility], [place], [facility], [address], [place], [place], [address], [place] tel:[phone] [facility] chronic pain (chief complaint)anxie ty1 (chief complaint) Chronic pain syndromeAnxiol ytic dependence Bebeto-0 6 Gaston Dong. [address], [place], [place], [address] , [place]. tel:[phone] Referring Provider: Iker Feldman, Franky [address], [place], [place], [address]. tel:[phone] OFFICE/OUTPA TIENT VISIT, [facility], [place], operated [facility], [address], [place], [place], [address], [place] tel:[phone] [facility] chronic pain (chief complaint)anxie ty1 (chief complaint)barre tt (chief complaint)CAD (chief complaint) Chronic pain syndromeBarret t's esophagus without dysplasiaCoron william artery disease of [place] coronary artery w/o angina pectorisEncoun ter for screening for malignant neoplasm of prostate Apr-2 6 Gaston Dong. [address], [place], [place], [address] , [place]. [phone] Referring Provider: Franky Dunham [address], [place], [place], [address]. tel:[phone] OFFICE/OUTPA TIENT VISIT, [facility], [place], [facility], [address] [place] [place], [address], [place] [phone] [facility] chronic pain (chief complaint)anxie ty1 (chief complaint)dizzi ness (chief complaint)anemi a1 (chief complaint) AnemiaDizzines sChronic pain syndrome Apr-0 6 Gaston Dong. [address], [place], [place], [address] , [place]. tel:[phone] Referring Provider: Franky Dunham [address], [place], [place], [address]. tel:[phone] OFFICE/OUTPA TIENT VISIT, [facility], [place], operated [facility], [address], [place], [place], [address], [place] tel:[phone] [facility] chronic pain (chief complaint)anxie ty1 (chief complaint) Other insomniaChroni c pain syndrome 6 Gaston Dong. [address], [place], [place], [address] , [place]. tel:[phone] Referring Provider: Iker Feldman, [address], [place], [place], [address]. tel:[phone] OFFICE/OUTPA TIENT VISIT, [facility], [place], operated [facility], [address], [place], [place], [address], [place] tel:[phone] [facility] GERD1 (chief complaint)HLP1 (chief complaint)chron ic pain (chief complaint)insom nia1 (chief complaint) Hyperlipidemia Chronic pain syndromeGERD without esophagitisHyp othyroidism 6 Gaston Dong. [address], [place], [place], [address] , [place]. tel:[phone] Referring Provider: Franky Dunham [address], [place], [place], [address]. tel:[phone] OFFICE/OUTPA TIENT VISIT, [facility], [place], [facility], [address], [place], [place], [address], [place] tel:[phone] [facility] chronic pain (chief complaint)anxie ty1 (chief complaint)GERD1 (chief complaint)CAD (chief complaint) Chronic pain syndromeOther insomniaCorona ry artery disease of [place] coronary artery without angina pectorisHyperl ipidemia 5 Gaston Dong. [address], [place], [place], [address] , [place]. tel:[phone] Referring Provider: Franky Dunham [address], [place], [place], [address]. tel:[phone] OFFICE/OUTPA TIENT VISIT, [facility], [place], [facility], [address], [place], [place], [address], [place] tel:[phone] [facility] right ankle pain (chief complaint)anxie ty1 (chief complaint) Chronic pain syndromeOther insomnia 5 Gaston Dong. [address], [place], [place], [address] , [place]. tel:[phone] Referring Provider: Iker Feldman, Franky [address], [place], [place], [address]. tel:[phone] OFFICE/OUTPA TIENT VISIT, [facility], [place], [facility], [address], [place], [place], [address], [place] tel:[phone] [facility] ankle pain1 (chief complaint)insom nia1 (chief complaint) Secondary osteoarthritis , right ankle and footOther insomnia 5 Gaston Pickett [address], [place], [place], [address] , [place]. tel:[phone] Referring Provider: Franky Dunham [address], [place], [place], [address]. tel:[phone] OFFICE/OUTPA TIENT VISIT, [facility], [place], [facility], [address], [place], [place], [address], [place] tel:[phone] [facility] ankle pain (chief complaint)insom alverto (chief complaint)CAD (chief complaint)gastr ic ulcer (chief complaint) Pain in right ankleOpioid dependence, uncomplicatedH ypertensive heart disease without heart failureChronic gastric ulcer without hemorrhage or perforationTob acco use 5 Gaston Pickett [address], [place], [place], [address] , [place]. [phone] Referring Provider: Franky Dunham [address], [place], [place], [address]. tel:[phone] OFFICE/OUTPA TIENT VISIT, [facility], [place], [facility], [address], [place], [place], [address], [place] tel:[phone] [facility] HTN (chief complaint)gastr ic ulcer (chief complaint)insom alverto (chief complaint)hypot hyroidism (chief complaint) Insomnia, unspecifiedUns pecified hypothyroidism Unspecified essential hypertensionAc pokagon gastric ulcer without mention of hemorrhage or perforation, with obstruction Nov-0 5 Gaston Dong. [address], [place], [place], [address] , [place]. [phone] Referring Provider: Iker Feldman, Franky [address], [place], [place], [address]. tel:[phone] OFFICE/OUTPA TIENT VISIT, [facility] [place], [facility], [address], [place], [place], [address], [place] [phone] [facility] pain (chief complaint)anxie ty (chief complaint)hypot hyroidism (chief complaint)gERD (chief complaint) Insomnia, unspecifiedUns pecified hypothyroidism Unspecified essential hypertension Sep-3 5 Gaston Pickett [address], [place], [place], [address] , [place]. [phone] Referring Provider: Franky Dunham [address], [place], [place], [address]. tel:[phone] OFFICE/OUTPA TIENT VISIT, [facility] [place], [facility], [address], [place], [place], [address], [place] tel:[phone] [facility] chronic apin (chief complaint)anxie ty (chief complaint) Other chronic pain 5 Gaston Pickett [address], [place], [place], [address] , [place]. [phone] Referring Provider: Franky Dunham [address], [place], [place], [address]. tel:[phone] OFFICE/OUTPA TIENT VISIT, [facility] [place], [facility], [address], [place], [place], [address], [place] tel:[phone] [facility] chronic pain (chief complaint)anxie ty (chief complaint) Ankle pain 5 Gaston Pickett [address], [place], [place], [address] , [place]. [phone] Referring Provider: Iker Feldman [address], [place], [place], [address]. tel:[phone] OFFICE/OUTPA TIENT VISIT, [facility], [place], [facility], [address], [place], [place], [address], [place] [phone] [facility] chronic pain (chief complaint)anxie ty (chief complaint)hypot hyroidism (chief complaint) Hypothyroidism Pain in joint involving lower legInsomnia, OtherScreening for malignant neoplasms of the prostate 5 Gaston Dong. [address], [place], [place], [address] , [place]. [phone] Referring Provider: Iker Feldman, [address], [place], [place], [address]. tel:[phone] OFFICE/OUTPA TIENT VISIT, [facility] [place], [facility], [address], [place], [place], [address], [place] tel:[phone] [facility] chronic pain (chief complaint)anxie ty (chief complaint)gastr ic ulcer (chief complaint)CAD (chief complaint) Insomnia, OtherCAD, [place] VesselAcute gastric ulcer without mention of hemorrhage or perforation, with obstructionOpi oid type dependence, unspecified use Jun- 5 Gaston Dong. [address], [place], [place], [address] , [place]. [phone] Referring Provider: Iker Feldman, [address], [place], [place], [address]. [phone] OFFICE/OUTPA TIENT VISIT, [facility] [place], [facility], [address], [place], [place], [address], [place] tel:[phone] [facility] chronic pain (chief complaint)insom alverto (chief complaint) Insomnia, OtherPain in joint involving lower legOpioid type dependence, unspecified useSedative, hypnotic or anxiolytic dependence, unspecified Mar-0 5 Gaston Dong. [address], [place], [place], [address] , [place]. tel:[phone] Referring Provider: Franky Dunham [address], [place], [place], [address]. tel:[phone] OFFICE/OUTPA TIENT VISIT, [facility] [place], [facility], [address], [place], [place], [address], [place] tel:[phone] [facility] chornic pain (chief complaint)anxie ty (chief complaint)HLP (chief complaint)hypot hyroidism (chief complaint) Hypothyroidism Insomnia, OtherOther and unspecified hyperlipidemia Pain in joint involving lower leg 5 Gaston Dong. [address], [place], [place], [address] , [place]. [phone] Referring Provider: Iker Feldman, [address], [place], [place], [address]. tel:[phone] OFFICE/OUTPA TIENT VISIT, [facility] [place], [facility], [address], [place], [place], [address], [place] tel:[phone] [facility] GERD (chief complaint)chron ic pain (chief complaint)anxie ty (chief complaint)HLP (chief complaint) Hypothyroidism CAD, [place] VesselPain in joint involving lower legHypertensio n, Unspecified 5 Gaston Dong. [address], [place], [place], [address] , [place]. [phone] Referring Provider: Franky Dunham [address], [place], [place], [address]. tel:[phone] OFFICE/OUTPA TIENT VISIT, [facility] [place], [facility], [address], [place], [place], [address], [place] tel:[phone] [facility] chronic pain (chief complaint)Anxie ty (chief complaint)HLP (chief complaint) Other and unspecified hyperlipidemia Pain in joint involving lower leg 4 Gaston Dong. [address], [place], [place], [address] , [place]. tel:[phone] Referring Provider: Iker Feldman [address], [place], [place], [address]. tel:[phone] OFFICE/OUTPA TIENT VISIT, [facility] [place], [facility], [address], [place], [place], [address], [place] [phone] [facility] HLP (chief complaint)chron ic pain (chief complaint)anxie ty (chief complaint)HTN (chief complaint)CAD (chief complaint)GERD (chief complaint) Hypothyroidism CAD, [place] VesselHyperten jayleen, UnspecifiedCHR ONIC PAIN NEC 4 Gaston Dong. [address], [place], [place], [address] , [place]. tel:[phone] Referring Provider: Franky Dunham [address], [place], [place], [address]. tel:[phone] OFFICE/OUTPA TIENT VISIT, [facility] [place], [facility], [address], [place], [place], [address], [place] tel:[phone] [facility] chronic pain (chief complaint)anxie ty (chief complaint) Hypothyroidism Pain in joint involving lower leg 4 Gaston Dong. [address], [place], [place], [address] , [place]. tel:[phone] Referring Provider: Franky Dunham [address], [place], [place], [address]. tel:[phone] OFFICE/OUTPA TIENT VISIT, [facility] [place], [facility], [address], [place], [place], [address], [place] tel:[phone] [facility] chronic pain (chief complaint)anxie ty (chief complaint)GERD (chief complaint)CAD (chief complaint) Pain in joint involving lower legCAD, [place] VesselAcute gastric ulcer without mention of hemorrhage or perforation, with obstructionHyp othyroidism 0 4 Gaston Dong. [address], [place], [address] , [place]. tel:[phone] Referring Provider: Franky Dunham [address], [place], [place], [address]. tel:[phone] OFFICE/OUTPA TIENT VISIT, [facility] [place], [facility], [address], [place], [place], [address], [place] tel:[phone] [facility] chornic pain (chief complaint)anxie ty (chief complaint)HTN (chief complaint) CHRONIC PAIN NECHypertensio n, Unspecified 4 Gaston Dong. [address], [place], [place], [address] , [place]. [phone] Referring Provider: Franky Dunham [address], [place], [place], [address]. tel:[phone] OFFICE/OUTPA TIENT VISIT, [facility] [place], [facility], [address], [place], [place], [address], [place] tel:[phone] [facility] GERD (chief complaint)chorn ic pain (chief complaint)anxie ty (chief complaint) GERDCHRONIC PAIN NEC 4 Gaston Dong. [address], [place], [place], [address] , [place]. [phone] Referring Provider: Franky Dunham [address], [place], [place], [address]. tel:[phone] OFFICE/OUTPA TIENT VISIT, [facility] [place], [facility], [address], [place], [place], [address], [place] tel:[phone] [facility] gastric ulcer (chief complaint)chorn ic pain (chief complaint)anxie ty (chief complaint)hypot hyroidism (chief complaint) Acute gastritis (without mention of hemorrhage)CHR ONIC PAIN NECPain in joint involving lower legHypothyroid ism 4 Gaston Dong. [address], [place], [place], [address] , [place]. [phone] Referring Provider: Franky Dunham [address], [place], [place], [address]. tel:[phone] OFFICE/OUTPA TIENT VISIT, [facility], [place], operated [facility], [address], [place], [place], [address], [place] tel:[phone] [facility] chornic pain (chief complaint)anxie ty (chief complaint)gastr ic ulcer (chief complaint)CAD (chief complaint) Acute gastric ulcer without mention of hemorrhage or perforation, with obstructionPai n in joint involving lower legCAD, [place] July- 4 Gaston Dong. [address], [address], [place], [place], [address] , [place]. [phone] Referring Provider: Iker Feldman, [address], [place], [place], [address]. tel:[phone] OFFICE/OUTPA TIENT VISIT, [facility], [place], operated [facility], [address], [place], [place], [address], [place] tel:[phone] [facility] HLP (chief complaint)CAD (chief complaint)hemat uria (chief complaint)chorn ic pain (chief complaint)anxie ty (chief complaint) Other and unspecified hyperlipidemia CAD, [place]MATURI A NOSPain in joint involving lower leg Apr-0 4 Gaston Dong. [address], [place], [place], [address] , [place]. [phone] Referring Provider: Iker Feldman, [address], [place], [place], [address]. tel:[phone] OFFICE/OUTPA TIENT VISIT, [facility], [place], operated [facility], [address], [place], [place], [address], [place] tel:[phone] [facility] hematuria (chief complaint)hypot hyroidism (chief complaint)chron ic painPt (chief complaint) HEMATURIA NOSCHRONIC PAIN NECHypothyroid ism May-0 4 Gaston Dong. [address], [place], [place], [address] , [place]. [phone] Referring Provider: Franky [address], [place], [place], [address]. tel:[phone] OFFICE/OUTPA TIENT VISIT, [facility], [place], operated [facility], [address], [place], [place], [address], [place] tel:[phone] [facility] chronic pain (chief complaint)HLP (chief complaint)Anxie ty (chief complaint)hemtu valerio (chief complaint) CHRONIC PAIN NECHypothyroid ismOther and unspecified hyperlipidemia HEMATURIA NOS Fe 4 Gaston Dong. [address], [place], [place], [address] , [place]. tel:[phone] Referring Provider: Iker Feldman, [address], [place], [place], [address]. tel:[phone] OFFICE/OUTPA TIENT VISIT, [facility], [place], operated [facility], [address], [place], [place], [address], [place] tel:[phone] [facility] CAD (chief complaint)chorn ic pain (chief complaint)anxie ty (chief complaint)Hypot hyroidism (chief complaint) Hypothyroidism CAD, [place] and unspecified hyperlipidemia CHRONIC PAIN NEC 4 Gaston Dong. [address], [place], [place], [address] , [place]. tel:[phone] Referring Provider: Franky Dunham [address], [place], [place], [address]. tel:[phone] OFFICE/OUTPA TIENT VISIT, [facility], [place], operated [facility], [address], [place], [place], [address], [place] tel:[phone] [facility] chronic pain (chief complaint)anxie ty (chief complaint) CHRONIC PAIN NEC 3 Gaston Dong. [address], [place], [place], [address] , [place]. tel:[phone] Referring Provider: Franky Dunham [address], [place], [place], [address]. tel:[phone] OFFICE/OUTPA TIENT VISIT, [facility], [place], operated [facility], [address], [place], [place], [address], [place] tel:[phone] [facility] chronic pain (chief complaint)anxie ty (chief complaint) CHRONIC PAIN NECHypothyroid ismOther and unspecified hyperlipidemia 3 Gaston Pickett [address], [place], [place], [address] , [place]. [phone] Referring Provider: Franky Dunham [address], [place], [place], [address]. tel:[phone] OFFICE/OUTPA TIENT VISIT, [facility], [place], operated [facility], [address], [place], [place], [address], [place] tel:[phone] [facility] hypothyroidism (chief complaint)Chron ic pain (chief complaint)anxie ty (chief complaint) Hypothyroidism Other and unspecified hyperlipidemia CAD, [place] 3 Gaston Pickett [address], [place], [place], [address] , [place]. [phone] Referring Provider: Franky Dunham [address], [place], [place], [address]. tel:[phone] OFFICE/OUTPA TIENT VISIT, [facility], [place], operated [facility], [address], [place], [place], [address], [place] tel:[phone] [facility] chronic pain (chief complaint)anxie ty (chief complaint) CHRONIC PAIN NECHypothyroid ismOther and unspecified hyperlipidemia 3 Gaston Pickett [address], [place], [place], [address] , [place]. [phone] Referring Provider: Franky Dunham [address], [place], [place], [address]. tel:[phone] OFFICE/OUTPA TIENT VISIT, [facility], [place], operated [facility], [address], [place], [place], [address], [place] tel:[phone] [facility] Hypothyroidism (chief complaint)CAD (chief complaint)chron ic pain (chief complaint) Hypothyroidism CAD, [place] Vessel[place]RON[place] PAIN NEC Aug 3 Gaston Pickett [address], [place], [place], [address] , [place]. tel:[phone] Referring Provider: Iker Feldman, [address], [place], [place], [address]. tel:[phone] OFFICE/OUTPA TIENT VISIT, [facility], [place], operated [facility], [address], [place], [place], [address], [place] [phone] [facility] CAD (chief complaint)chron ic pain (chief complaint)anxie ty (chief complaint) CAD, [place] Vessel[place]RONIC PAIN NECInsomnia, Other 3 Gaston Dong. [address], [place], [place], [address] , [place]. [phone] Referring Provider: Franky Dunham [address], [place], [place], [address]. tel:[phone] OFFICE/OUTPA TIENT VISIT, [facility], [place], operated [facility], [address], [place], [place], [address], [place] tel:[phone] [facility] CAD (chief complaint)Chron ic pain (chief complaint)anxie ty (chief complaint) CAD, [place]essel[place]RONIC PAIN NECHypothyroid ism 3 Gaston Dong. [address], [place], [place], [address] , [place]. [phone] Referring Provider: Franky Dunham [address], [place], [place], [address]. tel:[phone] OFFICE/OUTPA TIENT VISIT, [facility], [place], operated [facility], [address], [place], [place], [address], [place] tel:[phone] [facility] chronic pain (chief complaint)anxie ty (chief complaint)Hypot hyroidism (chief complaint) Hypothyroidism CHRONIC PAIN NEC 3 Gaston Dong. [address], [place], [place], [address] , [place]. [phone] Referring Provider: Franky Dunham [address], [place], [place], [address]. tel:[phone] OFFICE/OUTPA TIENT VISIT, [facility], [place], operated [facility], [address], [place], [place], [address], [place] tel:[phone] [facility] chornic pain (chief complaint)Anxie ty. (chief complaint)hypot hyroidism (chief complaint) Hypothyroidism CHRONIC PAIN NECRESTLESS LEGS SYNDROME Jun-0 3 Gaston Dong. [address], [place], [place], [address] , [place]. tel:[phone] Referring Provider: Iker Feldman, [address], [place], [place], [address]. tel:[phone] OFFICE/OUTPA TIENT VISIT, [facility], [place], [facility], [address], [place], [place], [address], [place] tel:[phone] [facility] chronic pain (chief complaint)viral (chief complaint)Anxie ty (chief complaint) Viral Infection, UnspecifiedCHR ONIC PAIN NECHypothyroid ism May-0 3 Gaston Dong[address], [place], [place], [address] , [place]. tel:[phone] Referring Provider: Franky Dunham [address], [place], [place], [address]. tel:[phone] OFFICE/OUTPA TIENT VISIT, [facility], [place], [facility], [address], [place], [place], [address], [place] tel:[phone] [facility] chronic pain (chief complaint)Anxie ty (chief complaint)hypot hyroidism (chief complaint)ED (chief complaint) Hypothyroidism CHRONIC PAIN NECErectile Dysfunction Fe-0 3 Gaston Dong. [address], [place], [place], [address] , [place]. tel:[phone] Referring Provider: Iker Feldman [address], [place], [place], [address]. tel:[phone] OFFICE/OUTPA TIENT VISIT, [facility], [place], [facility], [address], [place], [place], [address], [place] tel:[phone] [facility] hypothyroidism (chief complaint)chron ic pain (chief complaint) CHRONIC PAIN NECHypothyroid ismRESTLESS LEGS SYNDROME 3 Gaston Dong. [address], [place], [place], [address] , [place]. [phone] Referring Provider: Iker Feldman, [address], [place], [place], [address]. tel:[phone] OFFICE/OUTPA TIENT VISIT, [facility], [place], [facility], [address], [place], [place], [address], [place] [phone] [facility] chronic pain (chief complaint)restl ess leg syndrome (chief complaint)anxie ty (chief complaint) CHRONIC PAIN NECRESTLESS LEGS SYNDROME 2 Gaston Pickett [address], [place], [place], [address] , [place]. [phone] Referring Provider: Franky Dunham [address], [place], [place], [address]. tel:[phone] OFFICE/OUTPA TIENT VISIT, [facility], [place], [facility], [address], [place], [place], [address], [place] tel:[phone] [facility] chronic pain (chief complaint)restl ess leg (chief complaint) RESTLESS LEGS SYNDROMECHRONI C PAIN NEC 2 Gaston Pickett [address], [place], [place], [address] , [place]. [phone] Referring Provider: Franky Dunham [address], [place], [place], [address]. tel:[phone] OFFICE/OUTPA TIENT VISIT, [facility], [place], [facility], [address], [place], [place], [address], [place] tel:[phone] [facility] chornic pain (chief complaint)anxie ty (chief complaint)insom alverto (chief complaint) Insomnia, OtherCHRONIC PAIN NECRESTLESS LEGS SYNDROME 0 2 Gaston Dong[address], [place], [place], [address] , . tel:[phone] Referring Provider: [address], [place], [place], [address]. tel:[phone] Family History Family Member Type Diagnosis Age At Onset Father Problem (finding) Cancer - colon CA Mother Problem (finding) Alive and well Brother Problem (finding) Coronary artery disease Brother Problem (finding) Other Payers Payer name Insurance type Covered republican ID Authoriza ticlaudette(s) [facility] [id number] Social History Type Description Quantity Date Captured [...] ordered Referral Referred To: Suzanne Beckham [address] [place], [place] [phone] Ordered: Referrals: Allopathic & Osteopathic Physicians : Urology. Suzanne Beckham. 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 Pt denies any hemoptysis, worsening [...] has bladder C A Pt supposes to [facility] urology but his cezar was again canceled. Pt did call urology at [facility] who he used to see and they [...] A. Pt was referred to urology of [facility] and he tried to call for [...] any chest pain Pt just saw his business solution analyst and was cleared for another year. anxiety1 [...] GERD COPD1 Pt has COPD Pt t akvalentino incruse. Pt uses ventolin 1-2 per day [...] bladder CA. Cervantes pt has cervantes e brendan. pt takes omeprazole. Pt doing ok currently. [...] and he is seeing Dr. Junior in [place] and he will have the mass removed [...] Evaristo braun who is a urologist in [facility] who did the cysto and he told me the renal lesion is almost 100% sure a benign cyst. He did take the Ct to his radiologist over [facility] However, he is not in network with [...] 1 Pt just seen uro logy in [facility]. He will do cystoscopy. pt has [...] takes omerpzole. Pt denies any GERD Sep-01-2015 HTN Pt takes lisinop ril 10 mg [...] Surveillance and Counseling Quit smoking Related to [place] tt's esophagus without dysplasia Prescribed Activity and Exercise Education Related to Dietary Surveillance and Counseling Prescribed Diet Educ ation/Lifestyle Education Regarding Diet Related to Dietary Surveillance and Counseling Quit smoking Related to Insom alverto Prescribed Activity and Exercise Education Related to Dietary Surveillance and Counseling Prescribed Diet Educ ation/Lifestyle Education Regarding Diet Related to Dietary Surveillance and Counseling Quit smoking Related to [place] tt's esophagus without dysplasia Quit smoking Related [...] Surveillance and Counseling exercise Related to CAD, [place] Assessments Type Assessment Date assessment Anemia assessment Chronic pain syndrome assessment Malignant neoplasm of bladder, u nspecified assessment Other insomnia Mental Status Date Cognitive Assessment Orientation - [place] ed to time, place, person, situation.
--- OUTSIDE RECORDS SUMMARY | 2024-09-18 13:15 | XMS_ITS | Encounter Summary ---
Author Organization [facility] Address [address] [place] [address] Phone Care Team Providers Care Powerhouse Electrician Apprentice Name Role Phone Iker Feldman Primary Care Provider [phone] Juan Gresham MD Unavailable Hemant Delgado MD Unavailable Encounter Details Date Type Department Care Team (Late st Contact Info) Description 03/29/2021 [facility] [address] [place] [id number] Hemant Delgado MD [address] [address] Social History Tobacco Use Types Packs/Day Years [...] COVID-19? 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
--- NOTE | 2024-09-18 13:45 | ECG_ITS ---
Test Date: 2024-09-18 13:50:21 Measurements Intervals Etlan Rate: 51 P: 52 AK: 207 QRS: -9 QRSD: 112 T: 46 QT: 484 QTc: 448 Interpretive Statements SINUS BRADYCARDIA SEPTAL MYOCARDIAL INFARCTION , PROBABLY OLD [40+ ms Q WAVE IN V1/V2] Compared to ECG 09/18/2024 10:54:09 Myocardial infarct finding now present First degree AV block no longer present Electronically Signed On 09-19-2024 07:15:51 CDT by Pascual Fuller M.D.
--- NOTE | 2024-09-18 14:02 | ED.GENADULT ---
HPI - General Adult General Chief complaint: Chest Pain Stated complaint: chest pain for 1 month Time Seen by Provider: 09/18/24 13:09 History of Present Illness HPI narrative: This is a 69-year-old male with history of [place] presenting for chest pain. Patient had a bladder resection performed by Dr. Jennings [id number]. Since then he has been having intermittent chest pain. He states the pain feels like pressure on his chest and then a residual soreness. It is in the center of chest, nonradiating, moderate intensity. It is been coming and going over last 2 weeks. Is not exertional. Not associated with diaphoresis or vomiting It has improved when he has taken nitro but it is improved when he is not taking nitro as well. Patient says this feels similar to his last heart attack. He says that overall he feels crummy since the surgery but denies any specific complaints such as fevers shortness of breath nausea vomiting abdominal pain or urinary symptoms. Review of the EMR shows that he had similar presentation in July of 2022 and was evaluated by Cardiology that time. Related Data Home Medications ?Medication ?Instructions ?Recorded ?Confirmed ?Last Taken ?Type alprazolam 1 mg tablet (Xanax) 1 mg PO DAILY PRN Anxiety 09/14/20 08/20/24 08/24/22 History atorvastatin 40 mg tablet (Lipitor) 40 mg PO DAILY 09/14/20 08/28/24 08/27/24 History calcium phosphate,dibasic 77 50,000 tablet PO [id number] 09/14/20 08/28/24 08/27/24 History mg-vitamin D3 400 unit tablet carvedilol 3.125 mg tablet (Coreg) 3.125 mg PO BID 09/14/20 08/28/24 08/27/24 History clopidogrel 75 mg tablet (Plavix) 75 mg PO DAILY 09/14/20 08/28/24 08/20/24 History hydrocodone 10 mg-acetaminophen 1 tablet PO HS PRN Pain 09/14/20 08/20/24 Unknown History 325 mg tablet levothyroxine 88 mcg tablet 88 mcg PO DAILY 09/14/20 08/28/24 08/27/24 History (Synthroid) lisinopril 10 mg tablet (Zestril) 10 mg PO DAILY 09/14/20 08/28/24 08/27/24 History albuterol sulfate 90 mcg/actuation 2 puff inhalation QID PRN 05/03/21 08/20/24 01/03/23 History aerosol inhaler Shortness Of Breath nitroglycerin 0.4 mg sublingual 0.4 mg sublingual Q5-15M PRN Chest 05/03/21 08/20/24 Unknown History tablet Pain umeclidinium 62.5 mcg/actuation 1 inh inhalation DAILY 05/03/21 08/28/24 08/27/24 History blister powder for inhalation (Incruse Ellipta) aspirin 81 mg chewable tablet 81 mg PO DAILY 07/28/22 08/28/24 08/20/24 History pantoprazole 40 mg tablet,delayed 20 mg PO QAM 08/20/24 08/28/24 08/27/24 History release Allergies Allergy/AdvReac Type Severity Reaction Status Date / Time propoxyphene Allergy Intermediate Hives Verified 09/18/24 10:44 [facility] Past Medical History Medical History Non-cardiac chest pain Gastroesophageal reflux disease Chronic obstructive pulmonary disease ST elevation myocardial infarction (STEMI) (07/2012) Restless leg syndrome Hepatitis C virus infection resolved after antiviral drug therapy Bladder cancer Continuous tobacco abuse Coronary artery disease Hypothyroidism Essential hypertension Hyperlipidemia Anxiety and depression Surgical History Surgical History History of cystoscopy Abnormal cystoscopy x8 Right eye trauma History of cardiac catheterization (08/01/12) Aspiration thrombectomy, PTCA, stent x2 in overlapping fashion in major diagonal branch. Per Dr. Gresham. Family History Family History Mother Acute myocardial infarction Leukemia Father Colon cancer Sibling Heart problem Social History Social History Social History: Surrogate medical decision maker: Jodee Álvarez, spouse. Code status: Full code. Smoking packs per day: 1 Smoking cigarettes per day: 20.0 Years smoked: 30 Smoking pack-years: 30.00 Smoking status: Former smoker Tobacco type: cigarettes, pipe and cigars Smoking end date: 03/12/94 Additional smoking assessment comments: QUIT GIGARRETTES 2002, SMOKES 2 CIGARS/DAY & PIPE WHEN OUT OF CIGARS Alcohol intake: current Drinks per week: 2 Alcohol use details: BEER Substance use: current Substance use type: marijuana Other substance usage details: 3 X WK Last use: 12/25/22 Lack of Transportation: No Lack of Food: Never True Current Housing: I Have Housing Concerned About Future Housing: No Difficulty Paying Gas/Electric Bills: No Difficulty Paying for Meds: No Currently Unemployed: No Education: High School Diploma/GED Difficulty w/ Childcare or Family Care: No Living arrangements: with family Spiritual care concerns: No Exam Narrative: APPEARANCE: No apparent distress. Head: atraumatic. EYES: EOMI, NOSE: Atraumatic NECK: Trachea midline RESPIRATORY: No increased rate of breathing clear to auscultation CARDIOVASCULAR: RRR, no peripheral edema +2 pulses in all extremities ABDOMINAL: Non-distended soft nontender MUSCULOSKELETAl: No obvious deformities NEURO: Alert. Moving 4/4 extremities SKIN:: Warm, dry. Normal color PSYCHIATRIC: Normal affect Course Vital Signs Vital signs: Vital Signs Temperature 98.1 F 09/18/24 10:58 Pulse Rate 55 L 09/18/24 10:58 Respiratory Rate 16 09/18/24 10:58 Blood Pressure 121/88 09/18/24 10:58 Pulse Oximetry 98 09/18/24 10:58 Oxygen Delivery Room Air 09/18/24 10:58 Temperature 98.1 F 09/18/24 10:58 Pulse Rate 56 L 09/18/24 14:00 Respiratory Rate 17 09/18/24 14:00 Blood Pressure 127/74 09/18/24 13:54 Pulse Oximetry 100 09/18/24 14:00 Oxygen Delivery Room Air 09/18/24 10:58 Medical Decision Making [facility] Narrative Medical decision making narrative: -Course: 69-year-old male presenting with intermittent chest pain x 2 weeks. EKG and troponins are negative x2. CT PE ordered which showed bronchitis w/ mucus plugging and UIP. Unfortunately while patient is awaiting his workup he became irate and became swearing at our nursing staff. He then requested discharge and left the emergency department. -DDX includes but is not limited to: ACS, viral syndrome, PE Independent EKG interpretation: Rhythm [sinus], Rate [55], [place] -[normal], NE -[normal], QRS [narrow], QTC [normal], T waves -[negative for concerning inversions], ST Segments - [Negative for concerning elevations] Final interpretations: [Normal Sinus Rhythm] Vital Signs Vital Signs: Vital Signs Temperature 98.1 F 09/18/24 10:58 Pulse Rate 55 L 09/18/24 10:58 Respiratory Rate 16 09/18/24 10:58 Blood Pressure 121/88 09/18/24 10:58 Pulse Oximetry 98 09/18/24 10:58 Oxygen Delivery Room Air 09/18/24 10:58 Temperature 98.1 F 09/18/24 10:58 Pulse Rate 56 L 09/18/24 14:00 Respiratory Rate 17 09/18/24 14:00 Blood Pressure 127/74 09/18/24 13:54 Pulse Oximetry 100 09/18/24 14:00 Oxygen Delivery Room Air 09/18/24 10:58 Lab Data 09/18/24 10:57 09/18/24 10:57 Labs: Lab Results 09/18/24 09/18/24 09/18/24 Range/Units 10:56 10:57 13:53 WBC 6.2 (4.5-10.0) K/mm3 RBC 4.09 L (4.6-6.20) M/mm3 Hgb 13.7 L (14.0-18.0) g/dL Hct 40.6 L (42.0-52.0) % MCV 99.3 (80-100) fl MCH 33.5 (26-34) pg MCHC 33.7 (32-36) g/dl RDW 12.9 (11.5-14.5) % Plt Count 336 (150-375) k/mm3 MPV 9.2 (7.4-10.4) fl Immature Gran % (Auto) 0.3 (0-0.5) % Neut % (Auto) 62.1 (45.5-73.1) % Lymph % (Auto) 21.5 (18.3-44.2) % [place] % (Auto) 14.4 H (2.6-8.5) % Eos % (Auto) 1.1 (0-4.4) % Baso % (Auto) 0.6 (0.2-1.2) % Lymph # (Auto) 1.34 (0.9-3.2) K/mm3 [place] # (Auto) 0.9 H (0.1-0.6) K/mm3 Eos # (Auto) 0.1 (0-0.3) K/mm3 Baso # (Auto) 0.0 (0.0-0.1) K/mm3 Abs Immat Gran (auto) 0.02 (0.00-0.031) K/mm3 Absolute Neuts (auto) 3.9 (1.3-6.7) K/mm3 Absolute Nucleated RBC 0.000 (0.0-0.012) K/mm3 Nucleated RBC % 0.0 (0.0-0.2) % PT 13.5 (11.1-14.7) Seconds INR 1.0 APTT 26.4 (22.3-36.8) Seconds Sodium 138 (137-145) mmol/L Potassium 3.9 (3.4-5.0) mmol/L Chloride 108 H (98-107) mmol/L Carbon Dioxide 24 (22-30) mmol/L Anion Gap 6 (4-12) mmol/L BUN 12 (9-20) mg/dL Creatinine 0.85 (0.7-1.3) mg/dL Estim Creat Clear Calc 67 ml/min Estimated GFR > 60 (59 - ) Glucose 127 H (65-110) mg/dL Calcium 9.2 (8.4-10.2) mg/dL Total Bilirubin 0.7 (0.2-1.3) mg/dL AST 32 (17-59) U/L ALT 26 (6-50) U/L Alkaline Phosphatase 82 (38-126) U/L Troponin I < 0.012 < 0.012 (0.000-0.034) ng/mL NT-Pro-B Natriuret Pep 21 (19.9-100) pg/mL Total Protein 7.2 (6.3-8.2) g/dL Albumin 4.1 (3.5-5.1) g/dL Lipase 61 (23-300) U/L Urine Color (Yellow) Urine Appearance (Clear) Urine pH (5.0-9.0) Ur Specific [place] (1.001-1.035) Urine Protein (Negative) mg/dL Urine Glucose (UA) (Negative) mg/dL Urine Ketones (Negative) mg/dL Ur Blood (Man) (Negative) Urine Nitrate (Negative) Urine Bilirubin (Negative) Urine Urobilinogen (<2.0) mg/dL Leukocyte Esterase Rfl (Negative) NARAYAN/UL Urine RBC (0-2) /hpf Urine WBC (0-3) /hpf Ur Squamous Epith Cells (Few) /hpf Urine Bacteria /hpf Urine Casts 09/18/24 Range/Units 14:54 WBC (4.5-10.0) K/mm3 RBC (4.6-6.20) M/mm3 Hgb (14.0-18.0) g/dL Hct (42.0-52.0) % MCV (80-100) fl MCH (26-34) pg MCHC (32-36) g/dl RDW (11.5-14.5) % Plt Count (150-375) k/mm3 MPV (7.4-10.4) fl Immature Gran % (Auto) (0-0.5) % Neut % (Auto) (45.5-73.1) % Lymph % (Auto) (18.3-44.2) % [place] % (Auto) (2.6-8.5) % Eos % (Auto) (0-4.4) % Baso % (Auto) (0.2-1.2) % Lymph # (Auto) (0.9-3.2) K/mm3 [place] # (Auto) (0.1-0.6) K/mm3 Eos # (Auto) (0-0.3) K/mm3 Baso # (Auto) (0.0-0.1) K/mm3 Abs Immat Gran (auto) (0.00-0.031) K/mm3 Absolute Neuts (auto) (1.3-6.7) K/mm3 Absolute Nucleated RBC (0.0-0.012) K/mm3 Nucleated RBC % (0.0-0.2) % PT (11.1-14.7) Seconds INR APTT (22.3-36.8) Seconds Sodium (137-145) mmol/L Potassium (3.4-5.0) mmol/L Chloride (98-107) mmol/L Carbon Dioxide (22-30) mmol/L Anion Gap (4-12) mmol/L BUN (9-20) mg/dL Creatinine (0.7-1.3) mg/dL Estim Creat Clear Calc ml/min Estimated GFR (59 - ) Glucose (65-110) mg/dL Calcium (8.4-10.2) mg/dL Total Bilirubin (0.2-1.3) mg/dL AST (17-59) U/L ALT (6-50) U/L Alkaline Phosphatase (38-126) U/L Troponin I (0.000-0.034) ng/mL NT-Pro-B Natriuret Pep (19.9-100) pg/mL Total Protein (6.3-8.2) g/dL Albumin (3.5-5.1) g/dL Lipase (23-300) U/L Urine Color Yellow (Yellow) Urine Appearance Clear (Clear) Urine pH 7.0 (5.0-9.0) Ur Specific [place] 1.017 (1.001-1.035) Urine Protein Trace (Negative) mg/dL Urine Glucose (UA) Negative (Negative) mg/dL Urine Ketones Negative (Negative) mg/dL Ur Blood (Man) 3+ H (Negative) Urine Nitrate Negative (Negative) Urine Bilirubin Negative (Negative) Urine Urobilinogen 1.0 (<2.0) mg/dL Leukocyte Esterase Rfl 1+ H (Negative) NARAYAN/UL Urine RBC >100 H (0-2) /hpf Urine WBC 11-20 H (0-3) /hpf Ur Squamous Epith Cells None seen (Few) /hpf Urine Bacteria None seen /hpf Urine Casts 0-2 Discharge Plan Discharge Clinical Impression: Bronchitis Patient Disposition: Home Condition: Stable Instructions: Antibiotic Form, Acute Bronchitis (ED) Additional Instructions: He was seen emergency department for chest pain. Your CT showed bronchitis. This should improve without antibiotics. Please follow-up with your primary care physician in 3-5 days to ensure that you are getting better. If you are getting worse please return to the ED for re-evaluation. Please stop smoking. Patient Language: Danish Prescriptions: No Action aspirin 81 mg Tablet,Chewable 81 mg PO DAILY hydrocodone-acetaminophen 5-325 mg tablet 1 - 2 tablet PO Q6H PRN (Reason: pain) Qty: 30 0RF hydrocodone-acetaminophen 5-325 mg tablet 1 - 2 tablet PO Q6H PRN (Reason: pain) Qty: 20 0RF cephalexin 500 mg capsule 500 mg PO Q8H Qty: 9 0RF atorvastatin [Lipitor] 40 mg Tablet 40 mg PO DAILY alprazolam [Xanax] 1 mg Tablet 1 mg PO DAILY PRN (Reason: Anxiety) clopidogrel [Plavix] 75 mg Tablet 75 mg PO DAILY Patient Comments: Agrees to hold for 4 days prior to EGD as ok per Perri Tests ANP-BC hydrocodone-acetaminophen 10-325 mg Tablet 1 tablet PO HS PRN (Reason: Pain) carvedilol [Coreg] 3.125 mg Tablet 3.125 mg PO BID Rx Instructions: half a tablet levothyroxine [Synthroid] 88 mcg Tablet 88 mcg PO DAILY lisinopril [Zestril] 10 mg Tablet 10 mg PO DAILY calcium phos,dibas-vitamin D3 77-400 mg-unit Tablet 50,000 tablet PO [id number] nitroglycerin 0.4 mg Tablet, Sublingual 0.4 mg SUBLINGUAL Q5-15M PRN (Reason: Chest Pain) albuterol sulfate 90 mcg/actuation Hfa Aerosol Inhaler 2 puff INHALATION QID PRN (Reason: Shortness Of Breath) Incruse Ellipta 62.5 mcg/actuation Blister With Device 1 inh INHALATION DAILY pantoprazole 40 mg tablet,delayed release (DR/EC) 20 mg PO QAM hydrocodone-acetaminophen 5-325 mg tablet 1 - 2 tablet PO Q6H PRN (Reason: pain) Qty: 20 0RF Follow-up/Referrals: Iker Feldman MD [Primary Care Provider] - 3 Days
[2024-09-18 14:34] LABS: Troponin I < 0.012 ng/mL (0.000-0.034)
[2024-09-18 15:04] LABS: Add Urine Microscopic? YES; Appearance Urine Clear (Clear); Glucose Urine UA Negative (Negative); Leukocyte Esterase Ur 1+ LEU/UL (Negative); Nitrate Urine Negative (Negative); Non Pathogenic Casts 0-2; Specific Grav Ur 1.017 (1.001-1.035)
--- NOTE | 2024-09-18 15:33 | PC.NURSE ---
Patient to desk asking if patient cant eat. EDP ok with patient eating. This RN brought sandwich, pretzels, and drink to room. Patient hostile and cussing at this RN d/t having to wait for food. Patient reminded that this RN had to get it ok'd by EDP to give patient food. Patient reporting he wants to leave. EDP made aware.
== END 2024-09-18 15:45 | disposition home or self-care (01) ==
PROVIDERS: Emergency Medicine; Emergency Provider Emergency Medicine; PCP Emergency Medicine
DX: J40 Bronchitis, not specified as acute or chronic (principal); R07.9 Chest pain, unspecified; I25.2 Old myocardial infarction; F17.290 Nicotine dependence, other tobacco product, uncomplicated; F12.90 Cannabis use, unspecified, uncomplicated
CPT/HCPCS: 36415; 71046; 71275; 80053; 81001; 83690; 83880; 84484; 85025; 85610; 85730; 93005; 99284; Q9967

== ENCOUNTER 2024-09-23 11:09 | Outpatient (CLI) | payer MEDICARE, MEDICAID, SELFPAY ==
--- OUTSIDE RECORDS SUMMARY | 2024-09-23 11:29 | XMS_ITS | Encounter Summary ---
Author Organization [facility] Address [address] [place] [address] Phone Care Team Providers Care Professional Employer Consultant Name Role Phone Iker Feldman Primary Care Provider [phone] Juan Gresham MD Unavailable Hemant Delgado MD Unavailable Encounter Details Date Type Department Care Team (Late st Contact Info) Description 03/29/2021 Transcribe Orders [facility] Preop/Pacu II [address] [place] [address] Hemant Delgado MD #[address] [address] Pre-op testing (Primary Dx) Social History Tobacco [...] COVID-19? No / Unsure 03/29/2021 2:12 PM [employer] documented as of this encounter Plan of Treatment Not on file documented as of this encounter Results * SARS-COV-2 BY MOLECULAR (04/25/2021 7:54 AM [employer]) SARSCOV2 NOT DETECTED (Referen ce Range for this test is Not Detected ) [facility]MOF[facility] FAST DX 04/25/2021 6:50 PM [employer] [facility] Comment:This test was perfor med by a RT-PCR method. Other NASOPHARYNGEAL STRUCTURE / Unknown Non-Phlebotomy Collection / Unknown 04/25/2021 7:54 AM [employer] 04/25/2021 8:44 AM [employer] Narrative [facility] - 04/25/2021 6:50 PM [employer] Authorized Fact Sheets about this test for providers and patients are available at: https://www.fda.gov/medical-devices/qtijpxajt-jkunnaekjn-gidgkth-devices/emergen cy-us e-authorizations us Hemant Delgado MD MICROBIOLOGY - GENERAL ORDERABLE S Final Result [facility] [address] [place] [address], documented in this encounter Visit Diagnoses Diagnosis Pre-op testing- Primary Preoperative examination, unspecified documented in this encounter Care Teams Professional Employer Consultant Relationship Specialty Start Date End Date Iker Feldman [address] [place] [address] PCP - General Family Medicine 12/05/17 Juan Gresham MD [address] [facility] [place] [address] [place] [address] Cardiovascular Disease - Cardiology 12/05/17 Hemant Delgado MD #[address] [facility], [address] [address] Consulting Physician Urology 01/19/22 documented as of this encounter
--- OUTSIDE RECORDS SUMMARY | 2024-09-23 11:29 | XMS_ITS | Encounter Summary ---
Author Organization [facility] Address [address] [place] [address] Phone Care Team Providers Care Welt Insole Channeler Name Role Phone Iker Feldman Primary Care Provider [phone] Juan Gresham MD Unavailable eHmant Delgado MD Unavailable Encounter Details Date Type Department Care Team (Late st Contact Info) Description 04/26/2021 Transcribe Orders [facility] Preop/Pacu II 1 [place] [address] Hemant Delgado MD #[address] [address] Pre-op testing (Primary Dx) Social History Tobacco [...] COVID-19? 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 documented as of this encounter Plan of Treatment Not on file documented as of this encounter Visit Diagnoses Diagnosis Pre-op testing- Primary Preoperative examination, unspecified documented in this encounter Care Teams Welt Insole Channeler Relationship Specialty Start Date End Date Iker Feldman [address] [place] [address] PCP - General Family Medicine 12/05/17 Juan Gresham MD [address] [facility] [address] [place] [id number] Cardiovascular Disease - Cardiology 12/05/17 Hemant Delgado MD #2 [facility] [address] [place] [address] Consulting Physician Urology 01/19/22 documented as of this encounter
--- OUTSIDE RECORDS SUMMARY | 2024-09-23 11:29 | XMS_ITS | Encounter Summary ---
Author Organization [facility] Address [address] [place] [address] Phone Care Team Providers Care Legal Internship Name Role Phone Iker Feldman Primary Care Provider Juan Gresham MD Unavailable Hemant Delgado MD Unavailable Encounter Details Date Type Department Care Team (Late st Contact Info) Description 05/16/[address] [facility] Preop/Pacu II 1 [place] [address] Hemant Delagdo MD #[address] [address] Pre-op testing (Primary Dx) Social History Tobacco [...] COVID-19? No / Unsure 05/17/2021 11:10 AM CANDY COOKER HELPER documented as of this encounter Plan of Treatment Not on file documented as of this encounter Results * SARS-COV-2 BY MOLECULAR (05/17/2021 11:13 AM CANDY COOKER HELPER) SARSCOV2 NOT DETECTED (Referen ce Range for this test is Not Detected ) [facility] THERMOFISHER FAST DX 05/18/2021 11:52 AM CANDY COOKER HELPER [facility] Comment:This test was perfor med by a RT-PCR method. Other NASOPHARYNGEAL STRUCTURE / Unknown Non-Phlebotomy Collection / Unknown 05/17/2021 11:13 AM CANDY COOKER HELPER 05/17/2021 11:57 AM CANDY COOKER HELPER Narrative [facility] - 05/18/2021 11:52 AM CANDY COOKER HELPER Authorized Fact Sheets about this test for providers and patients are available at: https://www.fda.gov/medical-devices/opmamlyde-pnifpysify-kiesdog-devices/emergen cy-us e-authorizations us Hemnat Delgado MD MICROBIOLOGY - GENERAL ORDERABLE S Final Result [facility] [address] [place] [address], documented in this encounter Visit Diagnoses Diagnosis Pre-op testing- Primary Preoperative examination, unspecified documented in this encounter Care Teams Legal Internship Relationship Specialty Start Date End Date Iker Feldman [address] [place] [address] PCP - General Family Medicine 12/05/17 Juan Gresham MD [address] [facility] [address] [place] [address] Cardiovascular Disease - Cardiology 12/05/17 Hemant Delgado MD #2 [facility], [address] [address] Consulting Physician Urology 01/19/22 documented as of this encounter
--- OUTSIDE RECORDS SUMMARY | 2024-09-23 11:29 | XMS_ITS | Clinical Summary ---
Author Organization [facility] [address] Address [address] [place] [address] Care Team Providers Care Radio Board Operator Announcer Name Role Phone Iker Feldman MD Primary Care Provider [phone] Iker Feldman MD Unavailable [phone] Allergies Active Allergy Reactions Criticality Noted Date [...] 1 tablet (88 mcg total) by mouth director of research before breakfast Active albuterol HFA (PROVENTIL HFA,VENTOLIN [...] needed for pain Active cholecalciferol (VITAMIN D-3) 46391 unit tablet Take 1 tablet (50,000 Units total) by mouth once a week Active carvediloL (COREG) 3.125 mg tabletIndications :Coronary artery disease involving [place] coronary artery of [place] heart without angina pectoris Take 1 tablet (3.125 mg total) by mouth 2 (two) times a day with meals 180 tablet 3 4 Active clopidogreL (PLAVIX) 75 mg tabletIndications :Coronary artery disease involving [place] coronary artery of [place] heart without angina pectoris Take 1 tablet (75 mg total) by mouth daily 90 tablet 3 4 Active atorvastatin (LIPITOR) 40 mg tabletIndications :Coronary artery disease involving [place] coronary artery of [place] heart without angina pectoris Take 1 tablet (40 mg total) by mouth daily 90 tablet 3 4 Active nitroglycerin (NITROSTAT) 0.4 mg SL tabletIndications :Coronary artery disease involving [place] coronary artery of [place] heart without angina pectoris Place 1 tablet (0.4 mg total) under the tongue every 5 (five) minutes as needed for chest pain Up to 3 doses 25 tablet 4 Active lisinopriL (PRINIVIL,ZESTRIL ) 10 mg tabletIndications :Coronary artery disease involving [place] coronary artery of [place] heart without angina pectoris TAKE ONE TABLET BY MOUTH DAILY 90 tablet 2 4 Active Active Problems Problem Noted Date Diagnosed Date Atherosclerosis of coronary artery 12/12/2013 Overview (06/15/2016): Coronary atherosclerosis Encounters Date Type Department Care Team Description 08/19/2024 Telephone [facility] Cardiology [address] [place] [address] Perri Lux NP preop form [...] on file 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
--- OUTSIDE RECORDS SUMMARY | 2024-09-23 11:29 | XMS_ITS | Referral Summary ---
Author Organization [facility] [address] [facility] [address] [place] [address] Care Team Providers Care Automotive Warranty Administrator Name Role Phone Iker Feldman MD Primary Care Provider [phone] Iker Feldman MD Unavailable [phone] Encounters Date Type Department Care Team Description 08/19/2024 Telephone [facility] Cardiology [address] [facility] [address] [place] [address] Perri Lux NP preop form [...] 1 tablet (88 mcg total) by mouth carver and checkerer specials before breakfast Active albuterol HFA (PROVENTIL HFA,VENTOLIN [...] needed for pain Active cholecalciferol (VITAMIN D-3) 86487 unit tablet Take 1 tablet (50,000 Units total) by mouth once a week Active carvediloL (COREG) 3.125 mg tabletIndications :Coronary artery disease involving [place] coronary artery of [place] heart without angina pectoris Take 1 tablet (3.125 mg total) by mouth 2 (two) times a day with meals 180 tablet 3 4 Active clopidogreL (PLAVIX) 75 mg tabletIndications :Coronary artery disease involving [place] coronary artery of [place] heart without angina pectoris Take 1 tablet (75 mg total) by mouth daily 90 tablet 3 4 Active atorvastatin (LIPITOR) 40 mg tabletIndications :Coronary artery disease involving [place] coronary artery of [place] heart without angina pectoris Take 1 tablet (40 mg total) by mouth daily 90 tablet 3 4 Active nitroglycerin (NITROSTAT) 0.4 mg SL tabletIndications :Coronary artery disease involving [place] coronary artery of [place] heart without angina pectoris Place 1 tablet (0.4 mg total) under the tongue every 5 (five) minutes as needed for chest pain Up to 3 doses 25 tablet 4 Active lisinopriL (PRINIVIL,ZESTRIL ) 10 mg tabletIndications :Coronary artery disease involving [place] coronary artery of [place] heart without angina pectoris TAKE ONE TABLET [...] on file 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
--- OUTSIDE RECORDS SUMMARY | 2024-09-23 11:29 | XMS_ITS | Encounter Summary ---
Author Organization [facility] Address [address] [place] [address] Phone Care Team Providers Care Engine Cleaner Name Role Phone Gaston Iker Primary Care Provider [phone] Juan Gresham MD Unavailable Hemant Delgado MD Unavailable Reason for Referral * Radiology Services (Routine) - Closed Specialty Diagnoses / Procedures Referred By Contac t Referred To Contact Radiology Diagnoses Pre-op testing Procedures EKG 12 LEAD Laurent Abebe APRN, CRNA #1 [place] [address] Phone: tel: fax: Referral ID Status Reason Start Date Expiration Date Visits Re quested Visits Authorized [id number] Closed 03/29/2021 1 1 AL ENGINEER Encounter Details Date Type Department Care Team (Late st Contact Info) Description 03/29/2021 Transcribe Orders [facility] Preop/Pacu II 1 [place] [id number] Laurent Abebe APRN, CRNA #1 [place] [address] Pre-op testing (Primary Dx) Social History Tobacco [...] COVID-19? No / Unsure 03/29/2021 2:12 PM SIGNAL ENGINEER documented as of this encounter Plan of Treatment Not on file documented as of this encounter Results * HEMOGLOBIN & HEMATOCRIT (H&H) (04/25/2021 7:56 AM SIGNAL ENGINEER) HEMOGLOBIN (HGB) 14.7 13.0 - 16.5 g/dL 04/25/2021 8:12 AM SIGNAL ENGINEER [facility] HEMATOCRIT (HCT) 44.9 38.0 - 50.0 % 04/25/2021 8:12 AM SIGNAL ENGINEER [facility] Blood Venipuncture / Unknown 04/25/2021 7:56 AM SIGNAL ENGINEER 04/25/2021 8:07 AM SIGNAL ENGINEER us Laurent Nathanatzmarek HOSPITAL NURSE LIAISON, AIRPLANE TESTER HEMATOLOGY ORDERAB LES Final Result [facility] #[address] [place] [address] * (ABNORMAL) BASIC METABOLIC PANEL W/ CALCIUM TOTAL (04/25/2021 7:56 AM SIGNAL ENGINEER) SODIUM 133(L) 136 - 144 mmol/L 04/25/2021 8:32 AM SIGNAL ENGINEER [facility] POTASSIUM 4.6 3.5 - 5.1 mmol/L 04/25/2021 8:32 AM [facility] CHLORIDE 99(L) 100 - 110 mmol/L 04/25/2021 8:32 AM [facility] CO2, VENOUS 27 22 - 32 mmol/L 04/25/2021 8:32 AM [facility] ANION GAP 11.6 8.0 - 20.0 mmol/L 04/25/2021 8:32 AM [facility] GLUCOSE 111(H) 70 - 99 mg/dL 04/25/2021 8:32 AM SIGNAL ENGINEER [facility] BUN 11 8 - 23 mg/dL 04/25/2021 8:32 AM [facility] CREATININE, BLOOD 0.90 0.80 - 1.30 mg/dL 04/25/2021 8:32 AM [facility] BUN/CREATININE RATIO 12 12 - 20 ratio 04/25/2021 8:32 AM [facility] CALCIUM 9.4 8.9 - 10.3 mg/dL 04/25/2021 8:32 AM [facility] GFR, EST. NONAFRICAN >60 >=60 04/25/2021 8:32 AM [facility] GFR, EST. >60 >=60 04/25/2021 8:32 AM [facility] Comment: Creatinine Clearance is the preferred criteria for selecting drug dose adjustments in renally impaired patients. The GFR is provided as additional pertinent clinical information. GFR is reported in mL/min/1.73 sq m. IS THE PATIENT REQUIRED TO BE FASTING? No 04/25/2021 8:32 AM [facility] Blood Venipuncture / Unknown 04/25/2021 7:56 AM SIGNAL ENGINEER 04/25/2021 8:07 AM SIGNAL ENGINEER us Laurent Etelvina Purchatzke HOSPITAL NURSE LIAISON, AIRPLANE TESTER CHEMISTRY ORDERABL ES Final Result [facility] #[address] [place] [address] * EKG 12 LEAD (04/25/2021 7:43 AM SIGNAL ENGINEER) Ventricular Rate BPM EXTERNAL EKG Atrial Rate BPM EXTERNAL EKG P-R Interval 194 ms EXTERNAL EKG QRS Duration 100 ms EXTERNAL EKG Q-T Duration 472 ms EXTERNAL EKG QTC CALCULATION 427 ms EXTERNAL EKG P [place] 79 degrees EXTERNAL EKG R [place] 49 degrees EXTERNAL EKG T [place] 67 degrees EXTERNAL EKG 04/25/2021 7:43 AM SIGNAL ENGINEER Impressions EXTERNAL EKG - 04/25/2021 9:08 AM SIGNAL ENGINEER Sinus bradycardia Abnormal R wave progression (?ASMI [...] significant changes noted Confirmed by Lauren Mahmood [id number] on 04/25/2021 9:08:06 AM us Laurent Abebe HOSPITAL NURSE LIAISON, AIRPLANE TESTER IMG ECG ORDERABLES Final Result EXTERNAL EKG documented in this encounter Visit Diagnoses Diagnosis Pre-op testing- Primary Preoperative examination, unspecified Pre-op testing Preoperative examination, unspecified documented in this encounter Care Teams Engine Cleaner Relationship Specialty Start Date End Date Iker Feldman [address] [address] PCP - General Family Medicine 12/05/17 Juan Gresham MD [address] [facility] [address] [place] [address] Cardiovascular Disease - Cardiology 12/05/17 Hemant Delgado MD #[address] [address] Consulting Physician Urology 01/19/22 documented as of this encounter
--- OUTSIDE RECORDS SUMMARY | 2024-09-23 11:30 | XMS_ITS | Continuity of Care Document ---
Author Organization [facility] Address [address] [place] [address] [place] [address] Phone Care Team Providers Care Demand Planning Analyst Name Role Phone Iker Feldman MD Unavailable [...] Providers Copied on Encounter OFFICE/OUTPA TIENT VISIT, [facility], [address], [place], [place], [address], [place] tel:[phone] [facility] pain (chief complaint)anxie ty1 (chief complaint)anemi a1 (chief complaint)bladd er CA (chief complaint) AnemiaChronic pain syndromeMalign ant neoplasm of bladder, unspecifiedOth er insomnia 5 Gaston Pickett [address], [place], [place], [address] , [place]. tel:[phone] PREV VISIT, EST, 65 & OVER [facility], [address], [place], [place], [address], [place] tel:[phone] [facility] physical (chief complaint) Centrilobular emphysemaChron ic pain syndromeMalign ant neoplasm of bladder, unspecifiedHyp othyroidismMix ed hyperlipidemia Encounter for general adult medical exam w abnormal findingsCorona ry artery disease of elim ira coronary artery w/o angina pectorisGERD without esophagitis 5 Gaston Pickett [address], [place], [place], [address] , [place]. tel:[phone] OFFICE/OUTPA TIENT VISIT, [facility], [address], [place], [place], [address], [place] tel:[phone] [facility] pain (chief complaint)anxie ty1 (chief complaint)COPD1 (chief complaint) Chronic pain syndromePrimar y insomniaCentri lobular emphysemaPerso nal history of nicotine dependenceMali gnant neoplasm of bladder, unspecified 5 Gaston Pickett [address], [place], [place], [address] , [place]. tel:[phone] OFFICE/OUTPA TIENT VISIT, [facility], [address], [place], [place], [address], [place] tel:[phone] [facility] pain (chief complaint)anxie ty1 (chief complaint) Chronic pain syndromePrimar y insomnia Jun-0 5 Gaston Dong. [address], [place], [place], [address] , [place]. tel:[phone] OFFICE/OUTPA TIENT VISIT, [facility], [address], [place], [place], [address], [place] tel:[phone] [facility] Medicine pain (chief complaint)anxie ty1 (chief complaint) Chronic pain syndromePrimar y insomnia 5 Gaston Dong. [address], [place], [place], [address] , [place]. tel:[phone] OFFICE/OUTPA TIENT VISIT, [facility], [address], [place], [place], [address], [place] tel:[phone] [facility] pain (chief complaint)anxie ty1 (chief complaint)COPD1 (chief complaint) Chronic pain syndromeCentri lobular emphysemaPrima ry insomnia 5 Gaston Dong. [address], [place], [place], [address] , [place]. tel:[phone] OFFICE/OUTPA TIENT VISIT, [facility], [address], [place], [place], [address], [place] tel:[phone] [facility] pain (chief complaint)anxie ty1 (chief complaint)thyro id1 (chief complaint) Chronic pain syndromePrimar y insomniaHypoth yroidism 5 Gaston Dong. [address], [place], [place], [address] , [place]. tel:[phone] OFFICE/OUTPA TIENT VISIT, [facility], [address], [place], [place], [address], [place] tel:[phone] [facility] pain (chief complaint)anxie ty1 (chief complaint) Chronic pain syndromePrimar y insomnia 4 Feldman Iker. [address], [place], [place], [address] , [place]. tel:[phone] OFFICE/OUTPA TIENT VISIT, [facility], [address], [place], [place], [address], [place] tel:[phone] [facility] pain (chief complaint)anxie ty1 (chief complaint)COPD1 (chief complaint) Chronic pain syndromePrimar y insomniaCentri lobular emphysema 4 Feldman Iker. [address], [place], [place], [address] , [place]. tel:[phone] OFFICE/OUTPA TIENT VISIT, [facility], [address], [place], [place], [address], [place] tel:[phone] [facility] Medicine pain (chief complaint)anxie ty1 (chief complaint) Chronic pain syndromePrimar y insomnia 4 Feldman Iker. [address], [place], [place], [address] , [place]. tel:[phone] OFFICE/OUTPA TIENT VISIT, [facility], [address], [place], [place], [address], [place] tel:[phone] [facility] pain (chief complaint)anxie ty1 (chief complaint) Chronic pain syndromePrimar y insomnia 4 Feldman Iker. [address], [place], [place], [address] , [place]. tel:[phone] OFFICE/OUTPA TIENT VISIT, [facility], [address], [place], [place], [address], [place] tel:[phone] [facility] Medicine pain (chief complaint)anxie ty1 (chief complaint)COPD1 (chief complaint) Centrilobular emphysemaChron ic pain syndromePrimar y insomnia 4 Feldman Iker. [address], [place], [place], [address] , [place]. tel:[phone] OFFICE/OUTPA TIENT VISIT, [facility], [address], [place], [place], [address], [place] tel:[phone] [facility] pain (chief complaint)anxie ty1 (chief complaint) Chronic pain syndromePrimar y insomnia 4 Gaston Dong. [address], [place], [place], [address] , [place]. tel:[phone] OFFICE/OUTPA TIENT VISIT, [facility], [address] [place], [place], [address], [place] tel:[phone] [facility] pain (chief complaint)anxie ty1 (chief complaint)COPD1 (chief complaint)bladd er Ca (chief complaint) Centrilobular emphysemaChron ic pain syndromePrimar y insomniaMalign ant neoplasm of bladder, unspecified 4 Gaston Dong. [address], [place], [place], [address] , [place]. tel:[phone] OFFICE/OUTPA TIENT VISIT, [facility], [address], [place], [place], [address], [place] tel:[phone] [facility] pain (chief complaint)anxie ty (chief complaint)thyro id1 (chief complaint)HLP (chief complaint) Chronic pain syndromeHypoth yroidismMixed hyperlipidemia Primary insomniaCentri lobular emphysema 4 Gaston Dong. [address], [place], [place], [address] , [place]. tel:[phone] PREV VISIT, EST, 65 & OVER [facility], [address], [place], [place], [address], [place] tel:[phone] [facility] Medicine physical (chief complaint) Encounter for general adult medical exam w abnormal findingsCentri lobular emphysemaChron ic pain syndromePrimar y insomniaHypoth yroidismMalign ant neoplasm of bladder, unspecifiedGER D w/o esophagitisCor onary artery disease of elim ira coronary artery w/o angina pectoris 4 Feldman Iker. [address], [place], [place], [address] , [place]. tel:[phone] OFFICE/OUTPA TIENT VISIT, [facility], [address], [place], [place], [address], [place] tel:[phone] [facility] pain (chief complaint)anxie ty1 (chief complaint) Chronic pain syndromePrimar y insomnia May- 4 Feldman Iker. [address], [place], [place], [address] , [place]. tel:[phone] OFFICE/OUTPA TIENT VISIT, [facility], [address], [place], [place], [address], [place] tel:[phone] [facility] pain (chief complaint)anxie ty1 (chief complaint)COPD1 (chief complaint) Centrilobular emphysemaChron ic pain syndromePrimar y insomnia 4 Feldman Iker. [address], [place], [place], [address] , [place]. tel:[phone] OFFICE/OUTPA TIENT VISIT, [facility], [address], [place], [place], [address], [place] tel:[phone] [facility] pain (chief complaint)anxie y1 (chief complaint)hypot hyroidism1 (chief complaint) Hypothyroidism Chronic pain syndromePrimar y insomnia 4 Feldman Iker. [address], [place], [place], [address] , [place]. tel:[phone] OFFICE/OUTPA TIENT VISIT, [facility], [address], [place], [place], [address], [place] tel:[phone] [facility] pain (chief complaint)anxie ty1 (chief complaint) Chronic pain syndromePrimar y insomnia 3 Gaston Dong. [address], [place], [place], [address] , [place]. tel:[phone] OFFICE/OUTPA TIENT VISIT, [facility], [address], [place], [place], [address], [place] tel:[phone] [facility] pain (chief complaint)pain (chief complaint)anxie ty1 (chief complaint) Chronic pain syndromePrimar y insomnia Jan-3 0-202 3 Gaston Dong. [address], [place], [place], [address] , [place]. tel:[phone] OFFICE/OUTPA TIENT VISIT, [facility], [address], [place], [place], [address], [place] tel:[phone] [facility] Medicine pain (chief complaint)anxie ty1 (chief complaint) Chronic pain syndromePrimar y insomnia Nov-0 2- 3 Gaston Dong. [address], [place], [place], [address] , [place]. tel:[phone] OFFICE/OUTPA TIENT VISIT, [facility], [address], [place], [place], [address], [place] tel:[phone] [facility] pain (chief complaint)anxie ty1 (chief complaint)hypot hyroidism1 (chief complaint) Chronic pain syndromePrimar y insomniaHypoth yroidism Dec-0 4 3 Gaston Dong. [address], [place], [place], [address] , [place]. tel:[phone] OFFICE/OUTPA TIENT VISIT, [facility], [address], [place], [place], [address], [place] tel:[phone] [facility] pain (chief complaint)anxie ty1 (chief complaint) Chronic pain syndromePrimar y insomnia Nov-0 3 Gaston Dong. [address], [place], [place], [address] , [place]. tel:[phone] OFFICE/OUTPA TIENT VISIT, [facility], [address], [place], [place], [address], [place] tel:[phone] [facility] PAIN (chief complaint)anxie ty1 (chief complaint)bladd er CA1 (chief complaint) Chronic pain syndromePrimar y insomniaMalign ant neoplasm of bladder, unspecifiedAcq uired renal cystCentrilobu lar emphysema 3 Gaston Dong. [address], [place], [place], [address] , [place]. tel:[phone] OFFICE/OUTPA TIENT VISIT, [facility], [address], [place], [place], [address], [place] tel:[phone] [facility] pain (chief complaint)anxie ty1 (chief complaint)GERD1 (chief complaint) Cervantes's esophagus without dysplasiaChron ic pain syndromePrimar y insomnia 3 Gaston Dong. [address], [place], [place], [address] , [place]. tel:[phone] OFFICE/OUTPA TIENT VISIT, [facility], [address], [place], [place], [address], [place] tel:[phone] [facility] pain (chief complaint)anxie ty1 (chief complaint)hemae mesis1 (chief complaint)kidne y tumor1 (chief complaint) HematemesisChr onic pain syndromePrimar y insomniaMalign ant neoplasm of bladder, unspecified 3 Gaston Dong[address], [place], [place], [address] , [place]. tel:[phone] OFFICE/OUTPA TIENT VISIT, [facility], [address], [place], [place], [address], [place] tel:[phone] [facility] hematemesis1 (chief complaint) HematemesisBar rett's esophagus without dysplasiaAther osclerotic heart disease of elim ira coronary artery without angina pectoris 3 Gaston Dong. [address], [place], [place], [address] , [place]. tel:[phone] OFFICE/OUTPA TIENT VISIT, [facility], [address], [place], [place], [address], [place] tel:[phone] [facility] pain (chief complaint)insom nia1 (chief complaint) Chronic pain syndromePrimar y insomnia 3 Gaston Dong. [address], [place], [place], [address] , [place]. tel:[phone] PREV VISIT, EST, 65 & OVER [facility], [address], [place], [place], [address], [place] tel:[phone] [facility] physical (chief complaint) Encounter for general adult medical exam w abnormal findingsHypoth yroidismChroni c pain syndromeCentri lobular emphysemaEleva palomo prostate specific antigen [PSA]Asymptoma tic microscopic hematuriaMixed hyperlipidemia Cervantes's esophagus without dysplasiaPrima ry insomnia Jun- 3 Gaston Dong. [address], [place], [place], [address] , [place]. tel:[phone] OFFICE/OUTPA TIENT VISIT, [facility], [address], [place], [place], [address], [place] tel:[phone] [facility] pain (chief complaint)insom nia1 (chief complaint)HTN (chief complaint)thyro id1 (chief complaint)bladd er CA (chief complaint) Chronic pain syndromePrimar y insomniaHypoth yroidismEssent ial (primary) hypertensionMi xed hyperlipidemia Malignant neoplasm of bladder, unspecified 3 Gaston Dong. [address], [place], [place], [address] , [place]. tel:[phone] OFFICE/OUTPA TIENT VISIT, [facility], [address], [place], [place], [address], [place] tel:[phone] [facility] pain (chief complaint)insom nia1 (chief complaint)kidne y1 (chief complaint)COPD1 (chief complaint) Chronic pain syndromePrimar y insomniaOther specified disorder of kidneyCentrilo bular emphysema 3 Feldman Iker. [address], [place], [place], [address] , [place]. tel:[phone] OFFICE/OUTPA TIENT VISIT, [facility], [address], [place], [place], [address], [place] tel:[phone] [facility] Medicine pain (chief complaint)insom nia1 (chief complaint)tobac co1 (chief complaint)bladd er CA1 (chief complaint) Chronic pain syndromePrimar y insomniaMalign ant neoplasm of bladder, unspecifiedTob acco use 3 Gaston Dong. [address], [place], [place], [address] , [place]. tel:[phone] OFFICE/OUTPA TIENT VISIT, [facility], [address], [place], [place], [address], [place] tel:[phone] [facility] pain (chief complaint)insom nia1 (chief complaint) Chronic pain syndromePrimar y insomnia 2 Gaston Dong. [address], [place], [place], [address] , [place]. tel:[phone] OFFICE/OUTPA TIENT VISIT, [facility], [address], [place], [place], [address], [place] tel:[phone] [facility] Medicine pain (chief complaint)insom nia1 (chief complaint) Chronic pain syndromePrimar y insomnia 2 Feldman Iker. [address], [place], [place], [address] , [place]. tel:[phone] OFFICE/OUTPA TIENT VISIT, [facility], [address], [place], [place], [address], [place] tel:[phone] [facility] pain (chief complaint)insom nia1 (chief complaint)barre tt1 (chief complaint) Chronic pain syndromePrimar y insomniaBarret t's esophagus without dysplasiaMalig nant neoplasm of bladder, unspecified 2 Gaston Iker. [address], [place], [place], [address] , [place]. tel:[phone] OFFICE/OUTPA TIENT VISIT, [facility], [address] [place], [address], [place] tel:[phone] [facility] pain (chief complaint)insom nia1 (chief complaint)COPD1 (chief complaint)thyro id1 (chief complaint) Chronic pain syndromeBarret t's esophagus without dysplasiaPrima ry insomniaHypoth yroidismCentri lobular emphysema 2 Feldman Iker. [address], [place], [place], [address] , [place]. tel:[phone] OFFICE/OUTPA TIENT VISIT, [facility], [address] [place], [address], [place] tel:[phone] [facility] pain (chief complaint)insom nia1 (chief complaint)CAD (chief complaint) Coronary artery disease of elim ira coronary artery w/o angina pectorisChroni c pain syndromePrimar y insomnia 2 Feldman Iker. [address], [place], [place], [address] , [place]. tel:[phone] OFFICE/OUTPA TIENT VISIT, [facility], [address], [place], [place], [address], [place] tel:[phone] [facility] pain (chief complaint)insom nia1 (chief complaint) Chronic pain syndromePrimar y insomnia 2 Feldman Iker. [address], [place], [place], [address] , [place]. tel:[phone] OFFICE/OUTPA TIENT VISIT, [facility], [address] [place], [address], [place] tel:[phone] [facility] pain (chief complaint)insom nia1 (chief complaint) Chronic pain syndromePrimar y insomnia 2 Feldman Iker. [address], [place], [place], [address] , [place]. tel:[phone] OFFICE/OUTPA TIENT VISIT, EST [facility], [address], [place], [place], [address], [place] tel:[phone] [facility] Medicine pain (chief complaint)insom nia1 (chief complaint)[place] tt1 (chief complaint)renal CA (chief complaint) Polyp of colonBarrett's esophagus without dysplasiaInsom niaChronic pain syndromeCa of left kidney, except renal pelvis 2 Feldman Iker. [address], [place], [place], [address] , [place]. tel:[phone] OFFICE/OUTPA TIENT VISIT, EST [facility], [address], [place], [place], [address], [place] tel:[phone] [facility] pain (chief complaint)insom nia1 (chief complaint)vitam in D (chief complaint)colon polyp (chief complaint)emphy sema1 (chief complaint) Chronic pain syndromeInsomn iaVitamin D deficiencyPoly p of colonEmphysema 2 Gaston Iker. [address], [place], [place], [address] , [place]. tel:[phone] PREV VISIT, EST, 65 & OVER [facility], [address], [place], [place], [address], [place] tel:[phone] [facility] physical (chief complaint) Hyperlipidemia Chronic pain syndromeMalign ant neoplasm of bladder, unspecifiedBar rett's esophagus without dysplasiaEmphy semaFolate deficiencyHypo calcemiaHypoth yroidismInsomn iaEncounter for general adult medical exam w abnormal findings 2 Gaston Iekr. [address], [place], [place], [address] , [place]. tel:[phone] OFFICE/OUTPA TIENT VISIT, EST [facility], [address], [place], [place], [address], [place] tel:[phone] [facility] pain (chief complaint)insom nia1 (chief complaint)bladd er tumor1 (chief complaint)thyro id1 (chief complaint)CAD1 (chief complaint) Chronic pain syndromeInsomn iaMalignant neoplasm of bladder, unspecifiedHyp erlipidemiaHyp othyroidism 2 Gaston Pickett [address], [place], [place], [address] , [place]. tel:[phone] OFFICE/OUTPA TIENT VISIT, [facility], [address] [place], [address], [place] tel:[phone] [facility] pain (chief complaint)bladd er CA (chief complaint)tobac co (chief complaint)insom nia1 (chief complaint)GERD1 (chief complaint) Chronic pain syndromeInsomn iaBarrett's esophagus without dysplasiaMalig nant neoplasm of bladder, unspecifiedTob acco use 2 Gaston Pickett [address], [place], [place], [address] , [place]. tel:[phone] OFFICE/OUTPA TIENT VISIT, [facility], [address], [place], [place], [address], [place] tel:[phone] [facility] pain (chief complaint)insom nia1 (chief complaint)tobac co1 (chief complaint)bladd er CA (chief complaint)GERD1 (chief complaint) Malignant neoplasm of bladder, unspecifiedIns omniaChronic pain syndromeTobacc o useBarrett's esophagus without dysplasia 1 Gaston Pickett [address], [place], [place], [address] , [place]. tel:[phone] OFFICE/OUTPA TIENT VISIT, [facility], [address] [place], [address], [place] tel:[phone] [facility] pain (chief complaint)insom nia1 (chief complaint)GERD1 (chief complaint)bladd er CA1 (chief complaint) InsomniaChroni c pain syndromeBarret t's esophagus without dysplasiaMalig nant neoplasm of bladder, unspecified 1 Gaston Pickett [address], [place], [place], [address] , [place]. tel:[phone] OFFICE/OUTPA TIENT VISIT, [facility], [address] [place], [address], [place] tel:[phone] [facility] pain (chief complaint)insom nia1 (chief complaint)thyro id1 (chief complaint)bladd er CA (chief complaint) InsomniaHypoth yroidismMalign ant neoplasm of bladder, unspecifiedChr onic pain syndrome 1 Feldman Iker. [address], [place], [place], [address] , [place]. tel:[phone] OFFICE/OUTPA TIENT VISIT, [facility], [address], [place], [place], [address], [place] tel:[phone] [facility] Medicine pain (chief complaint)insom nia1 (chief complaint)COPD1 (chief complaint)bladd er CA (chief complaint) InsomniaChroni c pain syndromeTobacc o useEmphysemaMa lignant neoplasm of bladder, unspecified Nov- 1 Feldman Iker[address], [place], [place], [address] , [place]. tel:[phone] OFFICE/OUTPA TIENT VISIT, [facility], [address], [place], [place], [address], [place] tel:[phone] [facility] pain (chief complaint)insom nia1 (chief complaint)tobac co1 (chief complaint) Chronic pain syndromeInsomn iaTobacco use 1 Feldman Iker. [address], [place], [place], [address] , [place]. tel:[phone] OFFICE/OUTPA TIENT VISIT, [facility], [address] [place], [address], [place] tel:[phone] [facility] pain (chief complaint)insom nia1 (chief complaint)renal 1 (chief complaint) LeukocytosisAc delaware nation renal failureHypokal emiaInsomniaCh ronic pain syndromeEssent ial (primary) hypertension 1 Gaston Pickett [address], [place], [place], [address] , [place]. tel:[phone] OFFICE/OUTPA TIENT VISIT, [facility], [address], [place], [place], [address], [place] tel:[phone] [facility] Medicine pain1 (chief complaint)insom nia1 (chief complaint)barre tt (chief complaint)weigh t loss1 (chief complaint) Chronic pain syndromeInsomn iaBarrett's esophagus without dysplasiaAbnor mal weight loss 1 Gaston Dong. [address], [place], [place], [address] , [place]. tel:[phone] OFFICE/OUTPA TIENT VISIT, [facility], [address], [place], [place], [address], [place] tel:[phone] [facility] pain (chief complaint)insom na1 (chief complaint) Chronic pain syndromeInsomn ia 1 Gaston Dong. [address], [place], [place], [address] , [place]. tel:[phone] OFFICE/OUTPA TIENT VISIT, [facility], [address], [place], [place], [address], [place] tel:[phone] [facility] pain (chief complaint)insom nia1 (chief complaint)vitam in D (chief complaint) Chronic pain syndromeInsomn iaVitamin D deficiency, unspecified 1 Gaston Pickett [address], [place], [place], [address] , [place]. tel:[phone] OFFICE/OUTPA TIENT VISIT, [facility], [address], [place], [place], [address], [place] tel:[phone] [facility] pain (chief complaint)insom nia1 (chief complaint) Chronic pain syndromeInsomn ia 1 Gaston Dong. [address], [address], [place], [place], [address] , [place]. tel:[phone] OFFICE/OUTPA TIENT VISIT, [facility], [address] [place], [address], [place] tel:[phone] [facility] pain (chief complaint)insom nia1 (chief complaint)COPD1 (chief complaint) Chronic pain syndromeEmphys emaInsomnia May- 1 Gaston Dong. [address], [place], [place], [address] , [place]. tel:[phone] PREV VISIT, EST, 65 & OVER [facility], [address], [place], [place], [address], [place] tel:[phone] [facility] physical (chief complaint) Encounter for general adult medical exam w abnormal findingsChroni c pain syndromeEmphys emaInsomniaHyp othyroidismCor onary artery disease of elim ira coronary artery w/o angina pectorisMalign ant neoplasm of bladder, unspecified 1 Gaston Dong. [address], [place], [place], [address] , [place]. [phone] OFFICE/OUTPA TIENT VISIT, [facility], [address] [place], [address], [place] tel:[phone] [facility] pain (chief complaint)insom nia1 (chief complaint)COPD1 (chief complaint) EmphysemaChron ic pain syndromeInsomn ia 0 Gaston Dong. [address], [place], [place], [address] , [place]. tel:[phone] OFFICE/OUTPA TIENT VISIT, [facility], [address] [place], [address], [place] tel:[phone] [facility] pain1 (chief complaint)insom nia1 (chief complaint)hypot hyroidism1 (chief complaint)HLP (chief complaint) Hypothyroidism Hyperlipidemia Chronic pain syndromeInsomn ia 0 Gaston Dong. [address], [place], [place], [address] , [place]. tel:[phone] OFFICE/OUTPA TIENT VISIT, [facility], [address] [place], [address], tel:[phone] [facility] pain (chief complaint)insom nia1 (chief complaint)hypot hyroidism1 (chief complaint)CAD1 (chief complaint) Chronic pain syndromeInsomn iaCoronary artery disease of elim ira coronary artery w/o angina pectorisHypoth yroidism 0 Gaston Dong. [address], [place], [place], [address] , [place]. tel:[phone] OFFICE/OUTPA TIENT VISIT, [facility], [address] [place], [address], [place] tel:[phone] [facility] pain (chief complaint)insom nia1 (chief complaint)tobac co1 (chief complaint) Chronic pain syndromeInsomn iaTobacco use 0 Gaston Dong. [address], [address] [place], [address] , [place]. tel:[phone] OFFICE/OUTPA TIENT VISIT, [facility], [address] [place], [address], [place] tel:[phone] [facility] pain (chief complaint)insom nia1 (chief complaint)tobac co (chief complaint)COPD1 (chief complaint) Chronic pain syndromeInsomn iaEmphysemaTob acco use 0 0 Gaston oDng. [address], [place], [place], [address] , [place]. tel:[phone] OFFICE/OUTPA TIENT VISIT, EST [facility], [address] [place], [address], [place] tel:[phone] [facility] Medicine pain (chief complaint)insom nia1 (chief complaint)tobac co1 (chief complaint) Chronic pain syndromeInsomn iaTobacco use 0 Gaston Dong. [address], [place], [place], [address] , . [phone] OFFICE/OUTPA TIENT VISIT, [facility], [address] [place], [address], [phone] [facility] pain (chief complaint)insom nia1 (chief complaint) Chronic pain syndromeInsomn iaMalignant neoplasm of bladder, unspecified 0 Gaston Iker. [address], [place], [place], [address] , [place]. tel:[phone] OFFICE/OUTPA TIENT VISIT, [facility], [address] [place], [address], tel:[phone] [facility] Medicine pain1 (chief complaint)anxie ty1 (chief complaint)COPD1 (chief complaint)bladd er CA1 (chief complaint) Chronic pain syndromeInsomn iaEmphysemaMal ignant neoplasm of bladder, unspecified 0 Gaston Dong. [address], [place], [place], [address] , [place]. tel:[phone] OFFICE/OUTPA TIENT VISIT, [facility], [address] [place] [address], [place] tel:[phone] [facility] pain (chief complaint)anxie ty1 (chief complaint)D (chief complaint) InsomniaChroni c pain syndromeVitami n D deficiency, unspecified 0 Gaston Dong. [address], [place], [place], [address] , [place]. tel:[phone] OFFICE/OUTPA TIENT VISIT, [facility], [address] [place], [address], [place] tel:[phone] [facility] Medicine pain (chief complaint)anxie ty1 (chief complaint) Chronic pain syndromeInsomn ia Apr-0 0 Gaston Dong. [address], [place], [place], [address] , [place]. tel:[phone] OFFICE/OUTPA TIENT VISIT, [facility], [address], [place], [place], [address], tel:[phone] [facility] pain1 (chief complaint)anxie ty1 (chief complaint)Wharncliffe tt1 (chief complaint)bladd er1 (chief complaint)HTn (chief complaint) Cervantes's esophagus without dysplasiaChron ic pain syndromeInsomn iaMalignant neoplasm of bladder, unspecifiedEss ential (primary) hypertension 0 Gaston Dong. [address], [place], [place], [address] , [place]. tel:[phone] Referring Provider: Iker Feldman [address] [place] [address] [place], [address]. tel:[phone] OFFICE/OUTPA TIENT VISIT, [facility], [address] [place], [address], [place] tel:[phone] [facility] copd (chief complaint)pain1 (chief complaint)anxie ty1 (chief complaint)Wharncliffe tt1 (chief complaint)CAD (chief complaint) InsomniaBarret t's esophagus without dysplasiaChron ic pain syndromeEmphys emaCoronary artery disease of elim ira coronary artery w/o angina pectoris 0 Gaston Dong. [address], [place], [place], [address] , [place]. tel:[phone] Referring Provider: Iker Feldman [address] [facility] [address], [place], [place], [address]. tel:[phone] OFFICE/OUTPA TIENT VISIT, [facility], [address] [place], [address], [place] tel:[phone] [facility] anxiety1 (chief complaint)pain (chief complaint)bladd er CA (chief complaint)Wharncliffe tt1 (chief complaint)COPD1 (chief complaint) Malignant neoplasm of bladder, unspecifiedEmp hysemaBarrett' s esophagus without dysplasiaChron ic pain syndromeInsomn ia Andrew- 0 Gaston Dong. [address], [place], [place], [address] , [place]. tel:[phone] Referring Provider: Franky Dunham [address], [place], [place], [address]. tel:[phone] OFFICE/OUTPA TIENT VISIT, [facility], [address], [place], [place], [address], tel:[phone] [facility] Medicine chronic pain1 (chief complaint)anxie ty1 (chief complaint)HTN (chief complaint)bladd er CA (chief complaint) Chronic pain syndromeMalign ant neoplasm of bladder, unspecifiedIns omniaEssential (primary) hypertensionCo ronary artery disease of elim ira coronary artery w/o angina pectoris 9 Gaston Dong. [address], [place], [place], [address] , [place]. tel:[phone] Referring Provider: Franky Dunham [facility] [address], [place], [place], [address]. tel:[phone] PREV VISIT, EST, 65 & OVER [facility], [address], [place], [place], [address], [place] tel:[phone] [facility] Medicine physical (chief complaint) Encounter for general adult medical exam w abnormal findingsEmphys emaBarrett's esophagus without dysplasiaMalig nant neoplasm of bladder, unspecifiedChr onic pain syndromeHypoth yroidismCorona ry artery disease of elim ira coronary artery w/o angina pectoris 9 Gaston Dong. [address], [place], [place], [address] , [place]. [phone] Referring Provider: Franky Dunham [address], [place], [place], [address]. tel:[phone] OFFICE/OUTPA TIENT VISIT, [facility], [address] [place], [address], [place] tel:[phone] [facility] Medicine chronic pain1 (chief complaint)insom nia1 (chief complaint)COPD (chief complaint)HTN (chief complaint) EmphysemaChron ic pain syndromeInsomn iaCoronary artery disease of elim ira coronary artery w/o angina pectoris 9 Feldman Iker. [address], [place], [place], [address] , [place]. tel:[phone] OFFICE/OUTPA TIENT VISIT, [facility], [address], [place], [place], [address], [place] tel:[phone] [facility] emphysema1 (chief complaint)chron ic pain1 (chief complaint)insom nia1 (chief complaint)GERD1 (chief complaint) EmphysemaChron ic pain syndromeInsomn iaBarrett's esophagus without dysplasia 9 Feldman Iker. [address], [place], [place], [address] , [place]. tel:[phone] OFFICE/OUTPA TIENT VISIT, [facility], [address], [place], [place], [address], [place] tel:[phone] [facility] chronic pain1 (chief complaint)insom nia1 (chief complaint) Chronic pain syndromeInsomn ia Oct- 9 Feldman Iker. [address], [place], [place], [address] , [place]. tel:[phone] OFFICE/OUTPA TIENT VISIT, [facility], [address], [place], [place], [address], [place] tel:[phone] [facility] chronic pain1 (chief complaint)insom nia1 (chief complaint)COPD1 (chief complaint)bladd er tumor1 (chief complaint) Chronic pain syndromeInsomn iaEmphysemaMal ignant neoplasm of bladder, unspecified 9 Feldman Iker. [address], [place], [place], [address] , [place]. tel:[phone] OFFICE/OUTPA TIENT VISIT, [facility], [address], [place], [place], [address], [place] tel:[phone] [facility] chronic pain (chief complaint)anxie ty1 (chief complaint)bladd er CA (chief complaint)lung (chief complaint) Chronic pain syndromeInsomn iaScreening for lung caMalignant neoplasm of bladder, unspecified 9 Gaston Dong. [address], [place], [place], [address] , [place]. tel:[phone] Referring Provider: Franky Dunham [address], [place], [place], [address]. tel:[phone] OFFICE/OUTPA TIENT VISIT, [facility], [address] [place], [address], [place] tel:[phone] [facility] vitamin D1 (chief complaint)thyro id1 (chief complaint)chron ic pain1 (chief complaint)insom nia1 (chief complaint) Hypothyroidism InsomniaChroni c pain syndromeVitami n D deficiency, unspecified 9 Gaston Dong. [address], [place], [place], [address] , [place]. tel:[phone] Referring Provider: Franky Dunham [address] [facility] [place], [address]. tel:[phone] OFFICE/OUTPA TIENT VISIT, [facility], [address] [place], [address], [place] tel:[phone] [facility] chronic pain (chief complaint)insom nia1 (chief complaint) Chronic pain syndromeInsomn ia 9 Gaston Dong. [address] [place], [address] , [place]. tel:[phone] Referring Provider: Franky Dunham [address], [place], [place], [address]. tel:[phone] OFFICE/OUTPA TIENT VISIT, [facility], [address] [place], [address], [place] tel:[phone] [facility] chronci pain1 (chief complaint)hypot hyroidism1 (chief complaint)CAD1 (chief complaint)lung (chief complaint) Chronic pain syndromeHypoth yroidismCorona ry artery disease of elim ira coronary artery w/o angina pectorisScreen ing for lung caInsomnia 9 Gaston Dong. [address], [place], [place], [address] , [place]. tel:[phone] Referring Provider: Franky Dun[address], [place], [place], [address]. tel:[phone] OFFICE/OUTPA TIENT VISIT, [facility], [address], [place], [place], [address], [place] tel:[phone] [facility] chronic pain1 (chief complaint)insom nia1 (chief complaint) Chronic pain syndromeInsomn ia 9 Gaston Dong. [address], [place], [place], [address] , [place]. tel:[phone] Referring Provider: Franky Dunham [facility] [address], [place], [place], [address]. tel:[phone] OFFICE/OUTPA TIENT VISIT, [facility], [address], [place], [place], [address], [place] tel:[phone] [facility] CAD1 (chief complaint)Wharncliffe tt1 (chief complaint)bladd er tumor1 (chief complaint)chron ic pain1 (chief complaint)insom nia1 (chief complaint) Cervantes's esophagus without dysplasiaChron ic pain syndromeCorona ry artery disease of elim ira coronary artery w/o angina pectorisEmphys emaInsomnia 9 Gaston Dong. [address], [place], [place], [address] , [place]. tel:[phone] Referring Provider: Franky Dunham [address], [place], [place], [address]. tel:[phone] OFFICE/OUTPA TIENT VISIT, [facility], [address], [place], [place], [address], [place] tel:[phone] [facility] chronic pain (chief complaint)insom nia1 (chief complaint)bladd er CA1 (chief complaint) Chronic pain syndromeInsomn iaMalignant neoplasm of bladder, unspecified Dec-2 1-201 8 Gaston oDng. [address], [place], [place], [address] , [place]. tel:[phone] Referring Provider: Iker Feldman, [address], [place], [place], [address]. tel:[phone] OFFICE/OUTPA TIENT VISIT, EST [facility], [address], [place], [place], [address], [place] tel:[phone] [facility] chronic pain (chief complaint)anxie ty1 (chief complaint)renal lesion (chief complaint)Wharncliffe tt (chief complaint) InsomniaMalign ant neoplasm of bladder, unspecifiedChr onic pain syndromeBarret t's esophagus without dysplasia 8 Gaston Dong. [address], [place], [place], [address] , [place]. tel:[phone] Referring Provider: Iker Feldman [address] [facility] [address], [place], [place], [address]. tel:[phone] OFFICE/OUTPA TIENT VISIT, [facility], [address], [place], [place], [address], [place] tel:[phone] [facility] thyroid1 (chief complaint)chron ic pain1 (chief complaint)insom nia1 (chief complaint)COPD1 (chief complaint)bladd er tumor1 (chief complaint) EmphysemaInsom niaOther cystic kidney diseasesHypoth yroidismChroni c pain syndrome 8 Gaston Dong. [address], [place], [place], [address] , [place]. tel:[phone] Referring Provider: Franky Dunham [address], [place], [place], [address]. tel:[phone] PREV VISIT, EST, AGE 40-64 [facility], [address], [place], [place], [address], [place] tel:[phone] [facility] Physical (chief complaint) Encounter for general adult medical exam w abnormal findingsChroni c pain syndromeInsomn iaMalignant neoplasm of bladder, unspecifiedCor onary artery disease of elim ira coronary artery w/o angina pectorisHypoth yroidismEmphys zuleima 8 Gaston Dong. [address], [place], [place], [address] , [place]. tel:[phone] Referring Provider: Franky Dun[address], [place], [place], [address]. tel:[phone] OFFICE/OUTPA TIENT VISIT, [facility], [address] [place], [address], [place] tel:[phone] [facility] bladder CA (chief complaint)kidne y cyst1 (chief complaint)chron ic pain1 (chief complaint)insom nia1 (chief complaint) Malignant neoplasm of bladder, unspecifiedOth er cystic kidney diseasesChroni c pain syndromeInsomn ia 0 8 Gaston Pickett [address], [place], [place], [address] , [place]. tel:[phone] Referring Provider: Franky Dun[address], [place], [place], [address]. tel:[phone] OFFICE/OUTPA TIENT VISIT, [facility], [address] [place], [address], [place] tel:[phone] [facility] chronic pain1 (chief complaint)anxie ty1 (chief complaint)COPD1 (chief complaint)renal 1 (chief complaint) EmphysemaChron ic pain syndromeBladde r disorder, unspecifiedIns omnia 8 Gaston Pickett [address], [place], [place], [address] , [place]. tel:[phone] OFFICE/OUTPA TIENT VISIT, [facility], [address] [place], [address], [place] tel:[phone] [facility] kidney1 (chief complaint)chron ic pain (chief complaint)insom nia1 (chief complaint) Chronic pain syndromeBladde r disorder, unspecifiedOth er cystic kidney diseases 8 Feldman Iker. [address], [place], [place], [address] , [place]. tel:[phone] Referring Provider: Franky Dunham [address] [facility] [address], [place], [place], [address]. tel:[phone] OFFICE/OUTPA TIENT VISIT, [facility], [address], [place], [place], [address], [place] tel:[phone] [facility] hypothyroidism (chief complaint)HLP (chief complaint)chron ic pain1 (chief complaint)insom nia1 (chief complaint) Hypothyroidism Hyperlipidemia Chronic pain syndromeInsomn ia 8 Gaston Dong. [address], [place], [place], [address] , [place]. tel:[phone] Referring Provider: Iker Feldman, [address] [facility] A, [place], [place], [address]. tel:[phone] OFFICE/OUTPA TIENT VISIT, [facility], [address] [place], [address], [place] tel:[phone] [facility] chronic pain (chief complaint)insom nia1 (chief complaint)CAD1 (chief complaint)COPD1 (chief complaint) Chronic pain syndromeCorona ry artery disease of elim ira coronary artery w/o angina pectorisInsomn iaTobacco use 8 Gaston Dong. [address], [place], [place], [address] , [place]. tel:[phone] Referring Provider: Franky Dunham [address], [place], [place], [address]. tel:[phone] OFFICE/OUTPA TIENT VISIT, [facility], [address] [place], [address], [place] tel:[phone] [facility] chronic pain (chief complaint)insom nia1 (chief complaint)tobac co1 (chief complaint) Chronic pain syndromeInsomn iaTobacco use 8 Gaston Dong. [address], [place], [place], [address] , [place]. tel:[phone] OFFICE/OUTPA TIENT VISIT, [facility], [address], [place], [place], [address], [place] tel:[phone] [facility] chronic pain1 (chief complaint)anxie ty1 (chief complaint)tobac co1 (chief complaint)Wharncliffe tt (chief complaint) Cervantes's esophagus without dysplasiaInsom niaChronic pain syndromeEmphys zuleima 8 Gaston Dong. [address], [place], [place], [address] , [place]. tel:[phone] Referring Provider: Iker Feldman, [address], [place], [place], [address]. tel:[phone] OFFICE/OUTPA TIENT VISIT, [facility], [address], [place], [place], [address], [place] tel:[phone] [facility] chronic pain1 (chief complaint)insom nia1 (chief complaint) InsomniaChroni c pain syndrome Fe 8 Gaston Dong. [address], [place], [place], [address] , [place]. tel:[phone] OFFICE/OUTPA TIENT VISIT, [facility], [address], [place], [place], [address], [place] tel:[phone] [facility] COPD1 (chief complaint)chron ic pain1 (chief complaint)insom nia1 (chief complaint)barre tt1 (chief complaint) Cervantes's esophagus without dysplasiaEmphy semaInsomniaCh ronic pain syndrome 8 Gaston Dong. [address], [place], [place], [address] , [place]. tel:[phone] Referring Provider: Iker Feldman [address], [place], [place], [address]. tel:[phone] OFFICE/OUTPA TIENT VISIT, [facility], [address], [place], [place], [address], [place] tel:[phone] [facility] sob (chief complaint)chron ic pain1 (chief complaint)insom nia1 (chief complaint) EmphysemaInsom niaChronic pain syndrome Dec- 7 Gaston Dong. [address], [place], [place], [address] , . [phone] Referring Provider: Franky Dunham [address], [place], [place], [address]. tel:[phone] OFFICE/OUTPA TIENT VISIT, [facility], [address], [place], [place], [address], [place] tel:[phone] [facility] chrnoic pain (chief complaint)anxei ty1 (chief complaint) Chronic pain syndromeInsomn ia 7 Gaston Pickett [address], [place], [place], [address] , [place]. [phone] Referring Provider: Franky Dunham [facility] [address], [place], [place], [address]. tel:[phone] OFFICE/OUTPA TIENT VISIT, [facility], [address], [place], [place], [address], [place] tel:[phone] [facility] chronic pain1 (chief complaint)anxie ty1 (chief complaint)thyro id1 (chief complaint)Wharncliffe tt1 (chief complaint) InsomniaHypoth yroidismBarret t's esophagus without dysplasiaChron ic pain syndrome Dec- 7 Gaston Pickett [address], [place], [place], [address] , [place]. [phone] Referring Provider: Franky Dunham [address], [place], [place], [address]. tel:[phone] OFFICE/OUTPA TIENT VISIT, [facility], [address] [place], [address], [place] tel:[phone] [facility] chronic pain (chief complaint)anxie ty1 (chief complaint)ED (chief complaint) Chronic pain syndromeInsomn iaMale erectile dysfunction, unspecified Sep-0 7 Gaston Wilkins [address], [place], [place], [address] , [place]. [phone] Referring Provider: Franky Dunham [address], [place], [place], [address]. tel:[phone] PREV VISIT, EST, AGE 40-64 [facility], [address], [place], [place], [address], [place] [phone] [facility] Medicine Physical (chief complaint) Encounter for general adult medical exam w abnormal findingsHypoth yroidismInsomn iaAtherosclero tic heart disease of elim ira coronary artery without angina pectoris 7 Gaston Pickett [address], [place], [place], [address] , [place]. tel:[phone] Referring Provider: Franky Dunham [address], [place], [place], [address]. tel:[phone] OFFICE/OUTPA TIENT VISIT, EST [facility], [address], [place], [place], [address], [place] [phone] [facility] Cervantes (chief complaint)insom nia1 (chief complaint)chron ic pain1 (chief complaint)CAD (chief complaint) Cervantes's esophagus without dysplasiaChron ic pain syndromeAthero sclerotic heart disease of elim ira coronary artery without angina pectorisInsomn ia [address], [place], [place], [address] , [place]. tel:[phone] Referring Provider: Franky Dunham [address], [place], [place], [address]. tel:[phone] OFFICE/OUTPA TIENT VISIT, EST [facility], [address], [place], [place], [address], [place] tel:[phone] [facility] chronic pain1 (chief complaint)insom nia1 (chief complaint) Chronic pain syndromeInsomn ia [address], [place], [place], [address] , [place]. tel:[phone] Referring Provider: Franky Dunham [address], [place], [place], [address]. tel:[phone] OFFICE/OUTPA TIENT VISIT, [facility], [address], [place], [place], [address], [place] tel:[phone] [facility] CAD (chief complaint)thyro id1 (chief complaint)hep C (chief complaint)chron ic pain1 (chief complaint)anxie ty1 (chief complaint) Hypothyroidism Atheroscleroti c heart disease of elim ira coronary artery without angina pectorisInsomn iaHepatitis C 7 Gaston Pickett [address] [facility] [address], [place], [place], [address] , [place]. tel:[phone] Referring Provider: Franky Dunham [facility] [address], [place], [place], [address]. tel:[phone] OFFICE/OUTPA TIENT VISIT, [facility], [address], [place], [place], [address], [place] tel:[phone] [facility] chronic pain (chief complaint)insom nia1 (chief complaint)hep C (chief complaint)HLP (chief complaint) InsomniaHyperl ipidemiaEncoun ter for screening for other viral diseasesHypoth yroidism 7 Gaston Pickett [address], [place], [place], [address] , [place]. tel:[phone] Referring Provider: Franky Dunham [address], [place], [place], [address]. tel:[phone] OFFICE/OUTPA TIENT VISIT, [facility], [address] [place] [address], [place] tel:[phone] [facility] emphysema1 (chief complaint)chron ic pain (chief complaint)insom nia1 (chief complaint)CAD1 (chief complaint) COPDInsomniaCh ronic pain syndromeAthero sclerotic heart disease of elim ira coronary artery without angina pectoris 7 Gaston Dong. [address], [place], [place], [address] , [place]. tel:[phone] Referring Provider: Franky Dunham [address], [place], [place], [address]. tel:[phone] OFFICE/OUTPA TIENT VISIT, [facility], [address], [place], [place], [address], [place] tel:[phone] [facility] chronic pain1 (chief complaint)insom nia1 (chief complaint)CAD (chief complaint)tobac co1 (chief complaint) InsomniaTobacc o useChronic pain syndromeAthero sclerotic heart disease of elim ira coronary artery without angina pectoris Gaston Dong. [address], [place], [place], [address] , [place]. [phone] Referring Provider: Franky Dunham [address], [place], [place], [address]. tel:[phone] OFFICE/OUTPA TIENT VISIT, [facility], [address], [place], [place], [address], [place] tel:[phone] [facility] chronic pain (chief complaint)insom nia1 (chief complaint)tobac co1 (chief complaint) Chronic pain syndromeInsomn iaTobacco use 7 Gaston Dong. [address], [place], [place], [address] , [place]. tel:[phone] Referring Provider: Franky Dunham [address], [place], [place], [address]. tel:[phone] OFFICE/OUTPA TIENT VISIT, [facility], [address], [place], [place], [address], [place] tel:[phone] [facility] chronic pain1 (chief complaint)anxie ty1 (chief complaint)ED (chief complaint)GERD1 (chief complaint) Cervantes's esophagus without dysplasiaChron ic pain syndromeInsomn iaMale erectile dysfunction, unspecified 6 Gaston Dong. [address], [place], [place], [address] , [place]. tel:[phone] Referring Provider: Franky Dunham [address], [place], [place], [address]. tel:[phone] OFFICE/OUTPA TIENT VISIT, [facility], [address], [place], [place], [address], [place] tel:[phone] [facility] chronic pain (chief complaint)anxie ty1 (chief complaint) Chronic pain syndromeInsomn ia Jan- 6 Gaston Dong. [address], [place], [place], [address] , [place]. tel:[phone] Referring Provider: Franky Dunham [address], [place], [place], [address]. tel:[phone] OFFICE/OUTPA TIENT VISIT, [facility], [address], [place], [place], [address], [place] tel:[phone] [facility] chronic pain (chief complaint)anxie ty1 (chief complaint)hypot hyroidism (chief complaint)HTN (chief complaint) Chronic pain syndromeInsomn iaEssential (primary) hypertensionHy pothyroidism 6 Gaston Dong. [address], [place], [place], [address] , [place]. tel:[phone] Referring Provider: Frank[address], [place], [place], [address]. tel:[phone] OFFICE/OUTPA TIENT VISIT, [facility], [address], [place], [place], [address], [place] tel:[phone] [facility] chronic pain1 (chief complaint)anxie ty1 (chief complaint)GERD1 (chief complaint)HTN (chief complaint) Chronic pain syndromeBarret t's esophagus without dysplasiaEssen tial (primary) hypertensionAn xiolytic dependence Sep-3 0201 6 Gaston Dong. [address], [place], [place], [address] , [place]. tel:[phone] Referring Provider: Franky Dunham [address], [place], [place], [address]. tel:[phone] OFFICE/OUTPA TIENT VISIT, [facility], [address] [place], [address], tel:[phone] [facility] chronic pain (chief complaint)anxie ty1 (chief complaint) Chronic pain syndromeAnxiol ytic dependence 6 Gaston Dong. [address], [place], [place], [address] , [place]. tel:[phone] Referring Provider: Iker Feldman, Franky [facility] [address], [place], [place], [address]. tel:[phone] OFFICE/OUTPA TIENT VISIT, [facility], [address] [place], [address], [place] tel:[phone] [facility] CAD (chief complaint)HLP (chief complaint)hypot hyroidism (chief complaint)chron ic pain (chief complaint) Atheroscleroti c heart disease of elim ira coronary artery without angina pectorisAnxiol ytic dependenceHype rlipidemiaChro flores pain syndrome 6 Gaston Dong. [address] [facility] A, [place], [place], [address] , [place]. tel:[phone] Referring Provider: Franky Dunham [facility] [place], [address]. tel:[phone] OFFICE/OUTPA TIENT VISIT, [facility], [address] [place], [address], [place] tel:[phone] [facility] chronic pain (chief complaint)insom nia1 (chief complaint)ED1 (chief complaint) Chronic pain syndromeInsomn iaOther male erectile dysfunctionCor onary artery disease of elim ira coronary artery w/o angina pectoris 6 Gaston Pick[address], [place], [place], [address] , [place]. tel:[phone] Referring Provider: Franky Dunham [facility] [address], [place], [place], [address]. tel:[phone] OFFICE/OUTPA TIENT VISIT, [facility], [address], [place], [place], [address], [place] tel:[phone] [facility] chronic pain (chief complaint)anxie ty1 (chief complaint) Chronic pain syndromeAnxiol ytic dependence Bebeto-0 6 Gaston Dong. [address], [place], [place], [address] , [place]. tel:[phone] Referring Provider: Iker Feldman, [address], [place], [place], [address]. tel:[phone] OFFICE/OUTPA TIENT VISIT, [facility], [address], [place], [place], [address], [place] tel:[phone] [facility] chronic pain (chief complaint)anxie ty1 (chief complaint)barre tt (chief complaint)CAD (chief complaint) Chronic pain syndromeBarret t's esophagus without dysplasiaCoron william artery disease of elim ira coronary artery w/o angina pectorisEncoun ter for screening for malignant neoplasm of prostate Apr-2 6 Gaston Dong. [address], [place], [place], [address] , [place]. tel:[phone] Referring Provider: [address], [place], [place], [address]. tel:[phone] OFFICE/OUTPA TIENT VISIT, [facility], [address] [place], [address], [place] [phone] [facility] chronic pain (chief complaint)anxie ty1 (chief complaint)dizzi ness (chief complaint)anemi a1 (chief complaint) AnemiaDizzines sChronic pain syndrome Apr-0 6 Gaston Dong. [address], [place], [place], [address] , [place]. tel:[phone] Referring Provider: Franky [address], [place], [place], [address]. tel:[phone] OFFICE/OUTPA TIENT VISIT, [facility], [address], [place], [place], [address], [place] tel:[phone] [facility] chronic pain (chief complaint)anxie ty1 (chief complaint) Other insomniaChroni c pain syndrome 6 Gaston Dong. [address], [place], [place], [address] , [place]. tel:[phone] Referring Provider: Iker Feldman, [address], [place], [place], [address]. tel:[phone] OFFICE/OUTPA TIENT VISIT, [facility], [address], [place], [place], [address], [place] tel:[phone] [facility] GERD1 (chief complaint)HLP1 (chief complaint)chron ic pain (chief complaint)insom nia1 (chief complaint) Hyperlipidemia Chronic pain syndromeGERD without esophagitisHyp othyroidism 6 Gaston Dong. [address], [place], [place], [address] , [place]. tel:[phone] Referring Provider: [address], [place], [place], [address]. tel:[phone] OFFICE/OUTPA TIENT VISIT, [facility], [address], [place], [place], [address], [place] tel:[phone] [facility] chronic pain (chief complaint)anxie ty1 (chief complaint)GERD1 (chief complaint)CAD (chief complaint) Chronic pain syndromeOther insomniaCorona ry artery disease of elim ira coronary artery without angina pectorisHyperl ipidemia 5 Gaston Dong. [address], [place], [place], [address] , [place]. tel:[phone] Referring Provider: Franky Dunham [address], [place], [place], [address]. tel:[phone] OFFICE/OUTPA TIENT VISIT, [facility], [address], [place], [place], [address], [place] tel:[phone] [facility] right ankle pain (chief complaint)anxie ty1 (chief complaint) Chronic pain syndromeOther insomnia 5 Gaston Dong. [address], [place], [place], [address] , [place]. tel:[phone] Referring Provider: Iker Feldman, Frank[address], [place], [place], [address]. tel:[phone] OFFICE/OUTPA TIENT VISIT, [facility], [address], [place], [place], [address], [place] tel:[phone] [facility] ankle pain1 (chief complaint)insom nia1 (chief complaint) Secondary osteoarthritis , right ankle and footOther insomnia 5 Gaston Pickett [address], [place], [place], [address] , [place]. tel:[phone] Referring Provider: Franky Dunham [address], [place], [place], [address]. tel:[phone] OFFICE/OUTPA TIENT VISIT, [facility], [address], [place], [place], [address], [place] tel:[phone] [facility] ankle pain (chief complaint)insom alverto (chief complaint)CAD (chief complaint)gastr ic ulcer (chief complaint) Pain in right ankleOpioid dependence, uncomplicatedH ypertensive heart disease without heart failureChronic gastric ulcer without hemorrhage or perforationTob acco use 5 Gaston Pick[address], [place], [place], [address] , [place]. [phone] Referring Provider: Franky [address], [place], [place], [address]. tel:[phone] OFFICE/OUTPA TIENT VISIT, [facility], [address], [place], [place], [address], [place] tel:[phone] [facility] HTN (chief complaint)gastr ic ulcer (chief complaint)insom alverto (chief complaint)hypot hyroidism (chief complaint) Insomnia, unspecifiedUns pecified hypothyroidism Unspecified essential hypertensionAc delaware nation gastric ulcer without mention of hemorrhage or perforation, with obstruction Nov-0 5 Gaston Dong. [address], [place], [place], [address] , [place]. [phone] Referring Provider: Iker Feldman, Franky [address], [place], [place], [address]. tel:[phone] OFFICE/OUTPA TIENT VISIT, [facility], [address], [place], [place], [address], [place] [phone] [facility] pain (chief complaint)anxie ty (chief complaint)hypot hyroidism (chief complaint)gERD (chief complaint) Insomnia, unspecifiedUns pecified hypothyroidism Unspecified essential hypertension Sep-3 5 Gaston Pick[address], [place], [place], [address] , [place]. [phone] Referring Provider: Franky Dunham [address], [place], [place], [address]. tel:[phone] OFFICE/OUTPA TIENT VISIT, [facility], [address], [place], [place], [address], [place] tel:[phone] [facility] chronic apin (chief complaint)anxie ty (chief complaint) Other chronic pain 5 Gaston Pick[address], [place], [place], [address] , [place]. [phone] Referring Provider: Franky Dunham [address], [place], [place], [address]. tel:[phone] OFFICE/OUTPA TIENT VISIT, [facility], [address], [place], [place], [address], [place] tel:[phone] [facility] chronic pain (chief complaint)anxie ty (chief complaint) Ankle pain 5 Gaston Pick[address], [place], [place], [address] , [place]. [phone] Referring Provider: Iker Feldman [address], [place], [place], [address]. tel:[phone] OFFICE/OUTPA TIENT VISIT, [facility], [address], [place], [place], [address], [place] [phone] [facility] chronic pain (chief complaint)anxie ty (chief complaint)hypot hyroidism (chief complaint) Hypothyroidism Pain in joint involving lower legInsomnia, OtherScreening for malignant neoplasms of the prostate 5 Gaston Dong. [address], [place], [place], [address] , [place]. [phone] Referring Provider: Iker Feldman, [address], [place], [place], [address]. tel:[phone] OFFICE/OUTPA TIENT VISIT, [facility], [address], [place], [place], [address], [place] tel:[phone] [facility] chronic pain (chief complaint)anxie ty (chief complaint)gastr ic ulcer (chief complaint)CAD (chief complaint) Insomnia, OtherCAD, [place] VesselAcute gastric ulcer without mention of hemorrhage or perforation, with obstructionOpi oid type dependence, unspecified use Jun- 5 Gaston Dong. [address], [place], [place], [address] , [place]. [phone] Referring Provider: Iker Feldman, [address], [place], [place], [address]. tel:[phone] OFFICE/OUTPA TIENT VISIT, [facility], [address], [place], [place], [address], [place] tel:[phone] [facility] chronic pain (chief complaint)insom alverto (chief complaint) Insomnia, OtherPain in joint involving lower legOpioid type dependence, unspecified useSedative, hypnotic or anxiolytic dependence, unspecified Mar-0 5 Gaston Dong. [address], [place], [place], [address] , [place]. tel:[phone] Referring Provider: Franky Dunham [address], [place], [place], [address]. tel:[phone] OFFICE/OUTPA TIENT VISIT, [facility], [address], [place], [place], [address], [place] tel:[phone] [facility] chornic pain (chief complaint)anxie ty (chief complaint)HLP (chief complaint)hypot hyroidism (chief complaint) Hypothyroidism Insomnia, OtherOther and unspecified hyperlipidemia Pain in joint involving lower leg 5 Gaston Dong. [address], [place], [place], [address] , [place]. [phone] Referring Provider: Iker Feldman, [address], [place], [place], [address]. tel:[phone] OFFICE/OUTPA TIENT VISIT, [facility], [address], [place], [place], [address], [place] tel:[phone] [facility] GERD (chief complaint)chron ic pain (chief complaint)anxie ty (chief complaint)HLP (chief complaint) Hypothyroidism CAD, [place] VesselPain in joint involving lower legHypertensio n, Unspecified 5 Gaston Dong. [address], [place], [place], [address] , [place]. [phone] Referring Provider: Franky Dunham [address], [place], [place], [address]. tel:[phone] OFFICE/OUTPA TIENT VISIT, [facility], [address], [place], [place], [address], [place] tel:[phone] [facility] chronic pain (chief complaint)Anxie ty (chief complaint)HLP (chief complaint) Other and unspecified hyperlipidemia Pain in joint involving lower leg 4 Gaston Dong. [address], [place], [place], [address] , [place]. tel:[phone] Referring Provider: Iker Feldman [address], [place], [place], [address]. tel:[phone] OFFICE/OUTPA TIENT VISIT, [facility], [address], [place], [place], [address], [place] [phone] [facility] HLP (chief complaint)chron ic pain (chief complaint)anxie ty (chief complaint)HTN (chief complaint)CAD (chief complaint)GERD (chief complaint) Hypothyroidism CAD, [place] VesselHyperten jayleen, UnspecifiedCHR ONIC PAIN NEC 4 Gaston Dong. [address], [place], [place], [address] , [place]. tel:[phone] Referring Provider: Franky Dunham [address], [place], [place], [address]. tel:[phone] OFFICE/OUTPA TIENT VISIT, [facility], [address], [place], [place], [address], [place] tel:[phone] [facility] chronic pain (chief complaint)anxie ty (chief complaint) Hypothyroidism Pain in joint involving lower leg 4 Gaston [address]Dng. [address], [place], [place], [address] , [place]. tel:[phone] Referring Provider: Franky [address], [place], [place], [address]. tel:[phone] OFFICE/OUTPA TIENT VISIT, [facility], [address], [place], [place], [address], [place] tel:[phone] [facility] chronic pain (chief complaint)anxie ty (chief complaint)GERD (chief complaint)CAD (chief complaint) Pain in joint involving lower legCAD, [place] VesselAcute gastric ulcer without mention of hemorrhage or perforation, with obstructionHyp othyroidism 0 4 Gaston Dong. [address], [place], [place], [address] , [place]. tel:[phone] Referring Provider: Franky Dunham [address], [place], [place], [address]. tel:[phone] OFFICE/OUTPA TIENT VISIT, [facility], [address], [place], [place], [address], [place] tel:[phone] [facility] chornic pain (chief complaint)anxie ty (chief complaint)HTN (chief complaint) CHRONIC PAIN NECHypertensio n, Unspecified 4 Gaston Dong. [address], [place], [place], [address] , [place]. [phone] Referring Provider: Franky Dunham [address], [place], [place], [address]. tel:[phone] OFFICE/OUTPA TIENT VISIT, [facility], [address], [place], [place], [address], [place] tel:[phone] [facility] GERD (chief complaint)chorn ic pain (chief complaint)anxie ty (chief complaint) GERDCHRONIC PAIN NEC 4 Gaston Dong. [address], [place], [place], [address] , [place]. [phone] Referring Provider: Franky Dunham [address], [place], [place], [address]. tel:[phone] OFFICE/OUTPA TIENT VISIT, [facility], [address], [place], [place], [address], [place] tel:[phone] [facility] gastric ulcer (chief complaint)chorn ic pain (chief complaint)anxie ty (chief complaint)hypot hyroidism (chief complaint) Acute gastritis (without mention of hemorrhage)CHR ONIC PAIN NECPain in joint involving lower legHypothyroid ism 4 Gaston Dong. [address], [place], [place], [address] , [place]. tel:[phone] Referring Provider: Franky Dunham [address], [place], [place], [address]. tel:[phone] OFFICE/OUTPA TIENT VISIT, [facility], [address], [place], [place], [address], [place] tel:[phone] [facility] chornic pain (chief complaint)anxie ty (chief complaint)gastr ic ulcer (chief complaint)CAD (chief complaint) Acute gastric ulcer without mention of hemorrhage or perforation, with obstructionPai n in joint involving lower legCAD, [place] July- 4 Gaston Dong. [address], [place], [place], [address] , [place]. [phone] Referring Provider: Iker Feldman, Franky [address], [place], [place], [address]. tel:[phone] OFFICE/OUTPA TIENT VISIT, [facility], [address], [place], [place], [address], [place] tel:[phone] [facility] HLP (chief complaint)CAD (chief complaint)hemat uria (chief complaint)chorn ic pain (chief complaint)anxie ty (chief complaint) Other and unspecified hyperlipidemia CAD, [place] VesselHEMATURI A NOSPain in joint involving lower leg Apr-0 4 Gaston Dong[address], [place], [place], [address] , [place]. [phone] Referring Provider: Iker Feldman, Frank[address], [place], [place], [address]. tel:[phone] OFFICE/OUTPA TIENT VISIT, [facility], [address], [place], [place], [address], [place] tel:[phone] [facility] hematuria (chief complaint)hypot hyroidism (chief complaint)chron ic painPt (chief complaint) HEMATURIA NOSCHRONIC PAIN NECHypothyroid ism May-0 4 Gaston Dong. [address], [place], [place], [address] , [place]. [phone] Referring Provider: Franky [address], [place], [place], [address]. tel:[phone] OFFICE/OUTPA TIENT VISIT, [facility], [address], [place], [place], [address], [place] tel:[phone] [facility] chronic pain (chief complaint)HLP (chief complaint)Anxie ty (chief complaint)hemtu valerio (chief complaint) CHRONIC PAIN NECHypothyroid ismOther and unspecified hyperlipidemia HEMATURIA NOS Fe 4 Gaston Dong. [address], [address], [place], [place], [address] , [place]. tel:[phone] Referring Provider: Iker Feldman, [address], [place], [place], [address]. tel:[phone] OFFICE/OUTPA TIENT VISIT, [facility], [address], [place], [place], [address], [place] tel:[phone] [facility] Medicine CAD (chief complaint)chorn ic pain (chief complaint)anxie ty (chief complaint)Hypot hyroidism (chief complaint) Hypothyroidism CAD, [place] and unspecified hyperlipidemia CHRONIC PAIN NEC 4 Gaston Dong. [address], [address], [place], [place], [address] , [place]. tel:[phone] Referring Provider: Franky Dunham [address], [place], [place], [address]. tel:[phone] OFFICE/OUTPA TIENT VISIT, [facility], [address], [place], [place], [address], [place] tel:[phone] [facility] Medicine chronic pain (chief complaint)anxie ty (chief complaint) CHRONIC PAIN NEC 3 Gaston Dong. [address], [address], [place], [place], [address] , [place]. tel:[phone] Referring Provider: rFanky Dunham [address], [place], [place], [address]. tel:[phone] OFFICE/OUTPA TIENT VISIT, [facility], [address], [place], [place], [address], [place] tel:[phone] [facility] Family Medicine chronic pain (chief complaint)anxie ty (chief complaint) CHRONIC PAIN NECHypothyroid ismOther and unspecified hyperlipidemia 3 Gaston Pickett [address], [place], [place], [address] , [place]. [phone] Referring Provider: Franky Dunham [address], [place], [place], [address]. tel:[phone] OFFICE/OUTPA TIENT VISIT, [facility], [address], [place], [place], [address], [place] tel:[phone] [facility] hypothyroidism (chief complaint)Chron ic pain (chief complaint)anxie ty (chief complaint) Hypothyroidism Other and unspecified hyperlipidemia CAD, [place] 3 Gaston Pickett [address], [place], [place], [address] , [place]. [phone] Referring Provider: Franky Dunham [address], [place], [place], [address]. tel:[phone] OFFICE/OUTPA TIENT VISIT, [facility], [address], [place], [place], [address], [place] tel:[phone] [facility] Medicine chronic pain (chief complaint)anxie ty (chief complaint) CHRONIC PAIN NECHypothyroid ismOther and unspecified hyperlipidemia 3 Gaston Pickett [address], [place], [place], [address] , [place]. [phone] Referring Provider: Franky Dunham [address], [place], [place], [address]. tel:[phone] OFFICE/OUTPA TIENT VISIT, [facility], [address], [place], [place], [address], [place] tel:[phone] [facility] Medicine Hypothyroidism (chief complaint)CAD (chief complaint)chron ic pain (chief complaint) Hypothyroidism CAD, [place] VesselCHRONIC PAIN NEC Aug 3 Gatson Pickett [address], [place], [place], [address] , [place]. tel:[phone] Referring Provider: Iker Feldman, [address], [place], [place], [address]. tel:[phone] OFFICE/OUTPA TIENT VISIT, [facility], [address], [place], [place], [address], [place] [phone] [facility] CAD (chief complaint)chron ic pain (chief complaint)anxie ty (chief complaint) CAD, [place]esselCHRONIC PAIN NECInsomnia, Other 3 Gaston Dong. [address], [place], [place], [address] , [place]. [phone] Referring Provider: Franky Dunham [address], [place], [place], [address]. tel:[phone] OFFICE/OUTPA TIENT VISIT, [facility], [address], [place], [place], [address], [place] tel:[phone] [facility] CAD (chief complaint)Chron ic pain (chief complaint)anxie ty (chief complaint) CAD, [place]esselCHRONIC PAIN NECHypothyroid ism 3 Gaston Dong. [address], [place], [place], [address] , [place]. [phone] Referring Provider: Franky Dunham [address], [place], [place], [address]. tel:[phone] OFFICE/OUTPA TIENT VISIT, [facility], [address], [place], [place], [address], [place] tel:[phone] [facility] chronic pain (chief complaint)anxie ty (chief complaint)Hypot hyroidism (chief complaint) Hypothyroidism CHRONIC PAIN NEC 3 Gaston Dong. [address], [place], [place], [address] , [place]. tel:[phone] Referring Provider: Franky Dunham [address], [place], [place], [address]. tel:[phone] OFFICE/OUTPA TIENT VISIT, [facility], [address], [place], [place], [address], [place] tel:[phone] [facility] chornic pain (chief complaint)Anxie ty. (chief complaint)hypot hyroidism (chief complaint) Hypothyroidism CHRONIC PAIN NECRESTLESS LEGS SYNDROME Jun-0 3 Gaston Dong[address], [place], [place], [address] , [place]. tel:[phone] Referring Provider: Iker Feldman, [address], [place], [place], [address]. tel:[phone] OFFICE/OUTPA TIENT VISIT, [facility], [address], [place], [place], [address], [place] tel:[phone] [facility] chronic pain (chief complaint)viral (chief complaint)Anxie ty (chief complaint) Viral Infection, UnspecifiedCHR ONIC PAIN NECHypothyroid ism May-0 3 Gaston Dong[address], [place], [place], [address] , [place]. tel:[phone] Referring Provider: Franky Dunham [address], [place], [place], [address]. tel:[phone] OFFICE/OUTPA TIENT VISIT, [facility], [address], [place], [place], [address], [place] tel:[phone] [facility] chronic pain (chief complaint)Anxie ty (chief complaint)hypot hyroidism (chief complaint)ED (chief complaint) Hypothyroidism CHRONIC PAIN NECErectile Dysfunction Fe-0 3 Gaston Dong[address], [place], [place], [address] , [place]. tel:[phone] Referring Provider: Iker Feldman [address], [place], [place], [address]. tel:[phone] OFFICE/OUTPA TIENT VISIT, [facility], [address], [place], [place], [address], [place] tel:[phone] [facility] hypothyroidism (chief complaint)chron ic pain (chief complaint) CHRONIC PAIN NECHypothyroid ismRESTLESS LEGS SYNDROME 3 Gaston Dong. [address], [place], [place], [address] , [place]. [phone] Referring Provider: Iker Feldman, [address], [place], [place], [address]. tel:[phone] OFFICE/OUTPA TIENT VISIT, [facility], [address], [place], [place], [address], [place] [phone] [facility] chronic pain (chief complaint)restl ess leg syndrome (chief complaint)anxie ty (chief complaint) CHRONIC PAIN NECRESTLESS LEGS SYNDROME 2 Gaston Pickett [address], [place], [place], [address] , [place]. [phone] Referring Provider: Franky Dunham [address], [place], [place], [address]. tel:[phone] OFFICE/OUTPA TIENT VISIT, [facility], [address], [place], [place], [address], [place] tel:[phone] [facility] chronic pain (chief complaint)restl ess leg (chief complaint) RESTLESS LEGS SYNDROMECHRONI C PAIN NEC 2 Gaston Pickett [address], [place], [place], [address] , [place]. [phone] Referring Provider: Franky Dunham [address], [place], [place], [address]. tel:[phone] OFFICE/OUTPA TIENT VISIT, [facility], [address], [place], [place], [address], [place] tel:[phone] [facility] chornic pain (chief complaint)anxie ty (chief complaint)insom alverto (chief complaint) Insomnia, OtherCHRONIC PAIN NECRESTLESS LEGS SYNDROME 0 2 Gaston Dong[address], [place], [place], [address] , . tel:[phone] Referring Provider: [address], [place], [place], [address]. tel:[phone] Family History Family Member Type Diagnosis Age At Onset Father Problem (finding) Cancer - colon CA Mother Problem (finding) Alive and well Brother Problem (finding) Coronary artery disease Brother Problem (finding) Other Payers Payer name Insurance type Covered alliance party ID Authoriza ticlaudette(s) [facility] [id number] Social History Type Description Quantity Date Captured [...] due Goal PSA. Due on due Goal Special diet education [...] ordered Referral Referred To: Suzanne Beckham [address] [place], [place] [id number] Ordered: Referrals: Allopathic & Osteopathic Physicians : Urology. Suzanne Beckham. 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 His LDCT is ok insomnia1 Pt has chronic a [...] worsening pain. Pt denies any neuropathy bladder CA1 Pt has bladder C A and kidney CA. S/p ablation of the kidney and he is getting chemo now by urology Pt denies any hematuria, urinary symptoms tobacco1 Pt has assisted smoking history. Pt denies any hemoptysis, worsening sob or cough Pt needs LDCT pain Pt has chronic [...] Pt had LDCT done and is ok GERD Pt has cervantes. Pt had EGD [...] has bladder C A Pt supposes to [facility] urology but his cezar was again canceled. Pt did call urology at [facility] who he used to see and they did get a new urologist and he has cezar with new urologist on 03/16/21. pt denies any urinary symptoms or blood in urine GERD Pt has cervantes. Pt had EGD [...] A. Pt was referred to urology of [facility] and he tried to call for cezar [...] moptysis, worsening sob or cough. LDCT ok tobacco Pt needs LDCT, w [facility] is approved pt still smoking Pt denies [...] any chest pain Pt just saw his comb tender and was cleared for another year. anxiety1 [...] suicidal thought. Pt denies any crying spells insomnia1 Pt takes xanax q hs PRN [...] worsening pain. Pt failed NSAID and ultram chronic pain Pt [...] and he is seeing Dr. Junior in [place] and he will have the mass removed [...] doing ok. Pt denies any other complaints kidney cyst1 Pt has left guillermina l [...] also Pt denies any hematuria or pain chronic pain1 Pt has chronic r [...] 1 Pt just seen uro logy in [facility]. He will do cystoscopy. pt has not [...] denies any chest pain. Pt sees cardiology. insomnia1 Pt has chronic i nsomnia and anxiety. Pt denies any depressin or any suicidal thought. P takes xanax PRN and doing ok chronic pain1 Pt has chronic r ight lower extremity pain due to history of fracture. CAD Pt has CAD with stent. pt [...] denies any depression or any suicidal thought. hep C Pt told me he disla [...] to schedule for CT of chest but [facility] will not do it. Pt denies any [...] suicidal thought Pt denies any cyring spells hypothyroidism Pt has chronic h ypothyroidism. Pt takes synthroid. Pt needs refill chronic pain Pt has chronic r ight ankle and foot pain. Pt denies any worsening pain. Pt takes norco for pain. Pt unable to tolerate nsAID HTN Pt has CAD and H TN. Pt takesl isinorpil and coreg. Pt has appointment with [facility] nxt week for stress test. Pt denies any chest pain anxiety1 Pt has chronic a nxiety. Pt denies any depression ro any suicidal thought. Pt takes xnaax PRN and doing ok HTN Pt takes lisinor pil and coreg and his BP is high today Pt denies any chest pain or headache anxiety1 Pt has chronic a nxiety. Pt denies any depression or any suicidal thought. Pt takes xanax PRN. Pt denies any cyring spells GERD1 Pt has Cervantes e everardoagus. Pt is taking omeprazole. Pt denies any abd pain or GERD chronic pain1 Pt has chronic r ight ankle pain. Pt has history of right ankle fx. Pt takes norco for pain Pt denies any worsening pain chronic pain [...] homicdial thought. Pt denies any crying spells GERD1 Pt doing ok with omerpzole. Pt will have EGD and colonoscopy done next month by DR. Ross. Pt denies any abd pain CAD Pt has history o f CAD with stent. Pt takes lipitor lisinopirl. coreg, ASA and plavix. Pt denie sany chset pain pain Pt sees cardiology chronic pain Pt has chronic r ight ankle pain Pt denies any worsening pain. pt denies any swelling anxiety1 Pt has chronic a nxiety and insomnia. Pt atkes xanax PRN and working ok. Pt denies any depression or any suicidal thought right ankle pain Location: right ankle. Additional [...] w abnormal findings Quit smoking Related to Malig nant neoplasm of bladder, unspecified Special diet education Related t o Body mass index (BMI) 26.0-26.9, adult Quit smoking Related to Emphy sema [...] Surveillance and Counseling Quit smoking Related to [place] tt's esophagus without dysplasia Prescribed Activity and Exercise Education Related to Dietary Surveillance and Counseling Prescribed Diet Educ ation/Lifestyle Education Regarding Diet Related to Dietary Surveillance and Counseling Quit smoking Related to Insom alverto Prescribed Activity and Exercise Education Related to Dietary Surveillance and Counseling Prescribed Diet Educ ation/Lifestyle Education Regarding Diet Related to Dietary Surveillance and Counseling Quit smoking Related to [place] tt's esophagus without dysplasia Quit smoking Related [...] Surveillance and Counseling exercise Related to CAD, [place] Assessments Type Assessment Date assessment Anemia assessment Chronic pain syndrome assessment Malignant neoplasm of bladder, u nspecified assessment Other insomnia Mental Status Date Cognitive Assessment Orientation - [place] ed to time, place, person, situation.
--- OUTSIDE RECORDS SUMMARY | 2024-09-23 11:30 | XMS_ITS | Encounter Summary ---
Author Organization [facility] Address [address] [place] [address] Phone Care Team Providers Care District Loss Prevention Manager Name Role Phone Iker Feldman Primary Care Provider [phone] Juan Gresham MD Unavailable Hemant Delgado MD Unavailable Encounter Details Date Type Department Care Team (Late st Contact Info) Description 03/29/2021 Transcribe [facility] [address] [place] [id number] Hemant Delgado MD #[address] [address] Social History Tobacco Use Types Packs/Day Years [...] COVID-19? No / Unsure 03/29/2021 2:12 PM LMFT documented as of this encounter Plan of Treatment Not on file documented as of this encounter Visit Diagnoses Not on filedocumented in this encounter Care Teams District Loss Prevention Manager Relationship Specialty Start Date End Date Iker Feldman [address] [facility] [address] PCP - General Family Medicine 12/05/17 Juan Gresham MD [address] [facility] [address] [place] [address] Cardiovascular Disease - Cardiology 12/05/17 Hemant Delgado MD #2 [facility] [address] [place] [address] Consulting Physician Urology 01/19/22 documented as of this encounter
--- OUTSIDE RECORDS SUMMARY | 2024-09-23 11:30 | XMS_ITS | Clinical Summary ---
Author Organization [facility] Address [address] [place] [address] Phone Care Team Providers Care Wrecking Crane Engine Operator Name Role Phone Iker Feldman Primary Care Provider [phone] Juan Gresham MD Unavailable Hemant Delgado MD [...] minutes as needed. Active ergocalciferol (VITAMIN D) 48586 UNIT Capsule Take 1 Capsule by mouth. [...] Comments Blood Pressure 138/74 01/19/2022 8:53 AM CONSULTANT [employer]. VICE PRESIDENT [employer] (EX ) Pulse 54 01/19/2022 8:53 AM CONSULTANT [employer]. VICE PRESIDENT [employer] (EX ) Temperature 36.4 C (97.6 F) 01/19/2022 8:53 AM CONSULTANT [employer]. VICE PRESIDENT [employer]EX ) Respiratory Rate 18 01/19/2022 8:53 AM CONSULTANT [employer] AND [employer]. VICE PRESIDENT [employer] (EX ) Oxygen Saturation 98% 01/19/2022 8:53 AM CONSULTANT [employer]. VICE PRESIDENT [employer] (EX ) Inhaled Oxygen Concentration - - Weight 72.2 kg (159 lb 3.2 oz) 01/19/2022 8:53 A M CONSULT[employer]. VICE PRESIDENT [employer] (EX ) Height 174 cm (5' 8.5) 09/16/2021 11:49 [...] this topic Medical Devices Implanted Type Area Hog Cutter Device Identifier Shelf Expiration Date Model / Serial / Lot Stent Ureteral 6fr 2.1fr 26cm 2 Pigtail Curve 2 Durometer Taper Tip Loprfl Graduated Polaris Ultra - [id number] Implanted:Qty : 1 on 03/19/2018 by Viviana Junior MD at [facility] IMPLANT Right: Ureter [employer] 10/03/2020 [id number] 0 / [id number] 0 / [id number] Stent Ureteral 6fr 2.1fr 24cm 2 Pigtail Curve 2 Durometer Taper Tip Loprfl Graduated Polaris Ultra - [id number] Implanted:Qty : 1 on 04/29/2021 by Hemant Delgado MD at [facility] IMPLANT Left: Ureter [employer] 01/12/2024 [id number] 0 / [id number] 0 / [id number] Stent Ureteral 6fr 2.1fr 24cm 2 Pigtail Curve 2 Durometer Taper Tip Loprfl Graduated Polaris Ultra - [id number] Implanted:Qty : 1 on 05/20/2021 by Hemant Delgado MD at [facility] IMPLANT Left: Ureter [employer] 02/04/2024 [id number] 0 / [id number] 0 / [id number] Stent Ureteral 6fr 2.1fr 24cm 2 Pigtail Curve 2 Durometer Taper Tip Loprfl Graduated Polaris Ultra - [id number] Implanted:Qty : 1 on 05/20/2021 by Hemant Delgado MD at [facility] IMPLANT Right: Ureter [employer] 02/04/2024 [id number] 0 / [id number] 0 / [id number] Stent Ureteral 6fr 2.1fr 28cm 2 Pigtail Curve 2 Durometer Taper Tip Loprfl Graduated Polaris Ultra - [id number] Implanted:Qty : 1 on 09/09/2021 by Hemant Delgado MD at [facility] IMPLANT Right: Ureter [employer] 02/08/2024 [id number] 0 / [id number] / [id number] Explanted Type Area Hog Cutter Device Identifier Shelf Expiration Date Model / Serial / Lot Stent Ureteral 6fr 2.1fr 24cm 2 Pigtail Curve 2 Durometer Taper Tip Loprfl Graduated Going Ultra - [id number] Implanted:Qty : 1 on 04/29/20[facility] Explanted:Qty : 1 on 05/20/2021 [facility] IMPL[facility] Right: Ureter [employer] 01/12/2024 [id number] 0 / [id number] 0 / [id number] Procedures Procedure Name Priority Date/Time Associated Diagnosis Comments PSA SCREEN Routine 09/18/2017 from Last 3 Months or Most Recently Relevant to Health Maintenance Results * PSA SCREEN (09/18/2017) PSA (PROSTATE SPECIFIC ANTIGEN) 0.4 ng/mL Blood specimen (specimen) 09/18/2017 Evaristo Ladd MD CHEMISTRY ORDERABLES Edited Res ult - Final from Last 3 Months or Most Recently Relevant to Health Maintenance Insurance [place], [place] [id number] MEDICARE C [employer] Advance Directives Documents on File Type Date Recorded Patient Varnish Maker Expl anation Other Advance Directive 09/21/2021 3:35 [...] Medical Clearance fo r surgery Care Teams Wrecking Crane Engine Operator Relationship Specialty Start Date End Date Feldman Iker [address] [place] [address] PCP - General Family Medicine 12/05/17 Juan Gresham MD [address] [facility] [address] [place] [address] Cardiovascular Disease - Cardiology 12/05/17 Hemant Delgado MD #2 [facility] [address] [place] [address] Consulting Physician Urology 01/19/22
[2024-09-23 12:18] LABS: Add Urine Microscopic? YES; Appearance Urine Cloudy (Clear); Glucose Urine UA Negative (Negative); Leukocyte Esterase Ur 1+ LEU/UL (Negative); Nitrate Urine Negative (Negative); Non Pathogenic Casts 0-2; Specific Grav Ur 1.006 (1.001-1.035)
== END 2024-09-23 11:10 | disposition home or self-care (01) ==
PROVIDERS: PCP Emergency Medicine; Visit Provider Emergency Medicine
DX: D64.9 Anemia, unspecified (principal); Z79.899 Other long term (current) drug therapy
CPT/HCPCS: 81001; 87086

== ENCOUNTER 2024-10-02 00:13 | Day surgery (SDC) | payer MEDICARE, MEDICAID, SELFPAY ==
[2024-09-23 10:59] VITALS: BMI 22.8
--- NOTE | 2024-09-23 11:10 | PC.NURSE ---
Report to the Outpatient Waiting Room, entrance under the green pavilion located off [facility], at time _09:30am on date __10/02/24 . Planned Procedure Time: _11:30am .? Time changes happen often and if your time is changed the preop area will call you the afternoon before. - You and your visitor will be asked to self-screen and do not enter if you have any COVID symptoms. Please call surgeon if you need to reschedule. - A mask is optional within the hospital at this time. Patients may have clear liquids (water, carbonated beverages, clear teas, apple juice) until 3 hours prior to surgery with a maximum of 20 ounces. - No food from midnight until time of surgery and no smoking, or chewing tobacco (or any form of nicotine). No chewing gum, candy or mints.(0830am) Take only the following medications with a SIP of water on the morning of surgery: Carvedilol, Levothyroxine, Ellipta Inhaler, Xanax as needed, Hydrocodone if needed DO NOT STOP ANY OF YOUR OTHER PRESCRIPTION MEDICATIONS PRIOR TO SURGERY EXCEPT THE FOLLOWING Hold all vitamins and supplements for 3 days per anesthesiologist. Date to take last dose is 09/28/24 Medications to discontinue per physician ___HOLD ASA and PLAVIX for [address] Gresham per Date to take last dose 09/23/24 Please no make-up, nail turkish, hairspray, perfume, deodorant, or body powder the day of surgery.? No jewelry (including any body piercings) or valuables the day of surgery, leave them at home.? Please take a shower or bath the night before, or the morning of, surgery with an antibacterial soap.? Wear comfortable, loose fitting clothing.? Children are encouraged to wear pajamas. - Jewelry must be removed prior to entering the operating room.? Rings and piercings that are not removed may be cut off. - The hospital will not accept responsibility for valuables.? - Please leave all valuables, including medications, at home the day of surgery. If you are going home after surgery, a licensed truck driver salesperson must drive you home.? - NO public transportation without another adult if you receive anesthesia. - We recommend that an adult stay with you for 24 hours following discharge. - We also recommend that you do not drive, make important decision, drink alcoholic beverages, or take any drugs that were not prescribed by your health care provider for at least 24 hours after your discharge time. Follow any additional instructions given to you from your surgeon. Telephone instructions given to _wife Raven and asked if any additional questions and then verbalized understanding. Patient advised to call surgeon office or pre surgery nurse liaison [phone] if any additional questions.
--- NOTE | 2024-09-29 16:07 | P.HP_ITS ---
History of Present Illness History of Present Illness Consent: Risks, benefits, and alternatives have been discussed and questions answered. Patient agrees to proceed with procedure. 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 Most recently, August 28, he had regrowth a papillary neoplasm in the right mid and lower pole infundibulum. After laser ab lation and extensive discussion he elects for Gel Midol installation. He is aware the risk including, but not limited to, recurrent neoplasm with need for further treatment, ureteral stricture, hematuria Review of Systems Review of Systems: All systems reviewed & are unremarkable except as noted in HPI and below PMFSH Past Medical History Medical History Non-cardiac chest pain Gastroesophageal reflux disease Chronic obstructive pulmonary disease ST elevation myocardial infarction (STEMI) (07/2012) Restless leg syndrome Hepatitis C virus infection resolved after antiviral drug therapy Bladder cancer Continuous tobacco abuse Coronary artery disease Hypothyroidism Essential hypertension Hyperlipidemia Anxiety and depression Surgical History Surgical History History of cystoscopy Abnormal cystoscopy x8 Right eye trauma History of cardiac catheterization (08/01/12) Aspiration thrombectomy, PTCA, stent x2 in overlapping fashion in major diagonal branch. Per Dr. Gresham. Family History Family History Mother Acute myocardial infarction Leukemia Father Colon cancer Sibling Heart problem Social History Social History (Updated 09/29/24 @ 10:03 by Surinder Rajput MA) Social History: Surrogate medical decision maker: Jodee Álvarez, spouse. Code status: Full code. Smoking packs per day: 1 Smoking cigarettes per day: 20.0 Years smoked: 30 Smoking pack-years: 30.00 Smoking status: Former smoker Tobacco type: cigarettes, pipe and cigars Second hand tobacco smoke exposure: No Smoking end date: 03/12/94 Additional smoking assessment comments: QUIT GIGARRETTES 2002, SMOKES 2 CIGARS/DAY & PIPE WHEN OUT OF CIGARS Alcohol intake: current Drinks per week: 2 Alcohol use details: BEER Substance use: current Substance use type: marijuana Other substance usage details: 3 X WK Last use: 12/25/22 Do You Feel Safe in your Home?: Yes Lack of Transportation: No Lack of Food: Never True Current Housing: I Have Housing Concerned About Future Housing: No Difficulty Paying Gas/Electric Bills: No Difficulty Paying for Meds: No Currently Unemployed: No Education: High School Diploma/GED Difficulty w/ Childcare or Family Care: No Living arrangements: with family Additional living arrangements comments: Spiritual care concerns: No Meds Home Medications and Allergies Home Medications ?Medication ?Instructions ?Recorded ?Confirmed ?Type alprazolam 1 mg tablet (Xanax) 1 mg PO DAILY PRN Anxiety 09/14/20 09/23/24 History atorvastatin 40 mg tablet (Lipitor) 40 mg PO DAILY 09/14/20 09/23/24 History calcium phosphate,dibasic 77 50,000 tablet PO [id number] 09/14/20 09/23/24 History mg-vitamin D3 400 unit tablet carvedilol 3.125 mg tablet (Coreg) 3.125 mg PO BID 09/14/20 09/23/24 History clopidogrel 75 mg tablet (Plavix) 75 mg PO DAILY 09/14/20 09/23/24 History hydrocodone 10 mg-acetaminophen 1 tablet PO Q6-8H PRN Pain 09/14/20 09/23/24 History 325 mg tablet levothyroxine 88 mcg tablet 88 mcg PO DAILY 09/14/20 09/23/24 History (Synthroid) lisinopril 10 mg tablet (Zestril) 10 mg PO DAILY 09/14/20 09/23/24 History albuterol sulfate 90 mcg/actuation 2 puff inhalation QID PRN 05/03/21 09/23/24 History aerosol inhaler Shortness Of Breath nitroglycerin 0.4 mg sublingual 0.4 mg sublingual Q5-15M PRN Chest 05/03/21 09/23/24 History tablet Pain umeclidinium 62.5 mcg/actuation 1 inh inhalation DAILY 05/03/21 09/23/24 History blister powder for inhalation (Incruse Ellipta) aspirin 81 mg chewable tablet 81 mg PO DAILY 07/28/22 09/23/24 History pantoprazole 40 mg tablet,delayed 20 mg PO QAM 06/11/25 07/15/25 History release Allergies Allergy/AdvReac Type Severity Reaction Status Date / Time propoxyphene Allergy Intermediate Hives Verified 09/29/24 10:01 Exam Const: General: no acute distress Resp: Effort & Inspection: normal respiratory effort GI: Inspection: non-distended GI Palp: No abdominal tenderness and No Guarding due to palpation present (GI) Auscultation: normal bowel sounds Assessment and Plan Assessment and plan (1) Cancer of right renal pelvis: Code(s): C65.1 - Malignant neoplasm of right renal pelvis Status: Acute Assessment and Plan: * cystoscopy, right retrograde pyelography, right Jelmyto installation
[2024-10-02] VITALS (9 sets, daily range): BP systolic 96–124; BP diastolic 56–65; PULSE 49–65; RESP 12–20; TEMP 36.2–36.4; O2SAT 95–100
--- NOTE | ~2024-10-02 | XR_ITS ---
EXAMINATION: XR retrograde pyelogram RT Indication: Right retrograde pyelogram TECHNIQUE: Fluoroscopy used during right retrograde pyelogram performed by [Iris Ewing] on 10/02/2024. 111 seconds of fluoroscopy with 130 fluoroscopic images captured. FINDINGS: Correlate with procedure note. IMPRESSION: Fluoroscopy used during right retrograde pyelogram. Reviewed, dictated and finalized at location A.
--- OUTSIDE RECORDS SUMMARY | 2024-10-02 00:16 | XMS_ITS | Encounter Summary ---
Author Organization [facility] Address [address] [place] [address] Phone Care Team Providers Care Game Designer Name Role Phone Gaston Iker Primary Care Provider Juan Gresham MD Unavailable Hemant Delgado MD Unavailable Reason for Referral * Radiology Services (Routine) - Closed Specialty Diagnoses / Procedures Referred By Contac t Referred To Contact Radiology Diagnoses Pre-op testing Procedures EKG 12 LEAD Laurent Abebe APRN, CRNA #1 [place] [address] Phone: tel: fax: Referral ID Status Reason Start Date Expiration Date Visits Re quested Visits Authorized [id number] Closed 03/29/2021 1 1 GER OF SOFTWARE Encounter Details Date Type Department Care Team (Late st Contact Info) Description 03/29/2021 Transcribe Orders [facility] Preop/Pacu II 1 [place] [id number] Laurent Abebe APRN, CRNA #1 [place] [address] Pre-op testing (Primary Dx) Social History Tobacco [...] No / Unsure 03/29/2021 2:12 PM MANAGER OF SOFTWARE documented as of this encounter Plan of Treatment Not on file documented as of this encounter Results * HEMOGLOBIN & HEMATOCRIT (H&H) (04/25/2021 7:56 AM MANAGER OF SOFTWARE) HEMOGLOBIN (HGB) 14.7 13.0 - 16.5 g/dL 04/25/2021 8:12 AM MANAGER OF SOFTWARE [facility] HEMATOCRIT (HCT) 44.9 38.0 - 50.0 % 04/25/2021 8:12 AM MANAGER OF SOFTWARE [facility] Blood Venipuncture / Unknown 04/25/2021 7:56 AM MANAGER OF SOFTWARE 04/25/2021 8:07 AM MANAGER OF SOFTWARE us Laurent Nathanatzmarek BOXING INSTRUCTOR, DISABILITY INSURANCE CLAIM EXAMINER HEMATOLOGY ORDERAB LES Final Result [facility] [address] [place] [address] * (ABNORMAL) BASIC METABOLIC PANEL W/ CALCIUM TOTAL (04/25/2021 7:56 AM MANAGER OF SOFTWARE) SODIUM 133(L) 136 - 144 mmol/L 04/25/2021 8:32 AM MANAGER OF SOFTWARE [facility] POTASSIUM 4.6 3.5 - 5.1 mmol/L 04/25/2021 8:32 AM [facility] CHLORIDE 99(L) 100 - 110 mmol/L 04/25/2021 8:32 AM [facility] CO2, VENOUS 27 22 - 32 mmol/L 04/25/2021 8:32 AM [facility] ANION GAP 11.6 8.0 - 20.0 mmol/L 04/25/2021 8:32 AM [facility] GLUCOSE 111(H) 70 - 99 mg/dL 04/25/2021 8:32 AM MANAGER OF SOFTWARE [facility] BUN 11 8 - 23 mg/dL 04/25/2021 8:32 AM [facility] CREATININE, BLOOD 0.90 0.80 - 1.30 mg/dL 04/25/2021 8:32 AM [facility] BUN/CREATININE RATIO 12 12 - 20 ratio 04/25/2021 8:32 AM [facility] CALCIUM 9.4 8.9 - 10.3 mg/dL 04/25/2021 8:32 AM [facility] GFR, EST. NONAFRICAN >60 >=60 04/25/2021 8:32 AM [facility] GFR, EST. >60 >=60 04/25/2021 8:32 AM [facility] Comment: Creatinine Clearance is the preferred criteria for selecting drug dose adjustments in renally impaired patients. The GFR is provided as additional pertinent clinical information. GFR is reported in mL/min/1.73 sq m. IS THE PATIENT REQUIRED TO BE FASTING? No 04/25/2021 8:32 AM [facility] Blood Venipuncture / Unknown 04/25/2021 7:56 AM MANAGER OF SOFTWARE 04/25/2021 8:07 AM MANAGER OF SOFTWARE us Laurent Etelvina Purchatzke BOXING INSTRUCTOR, DISABILITY INSURANCE CLAIM EXAMINER CHEMISTRY ORDERABL ES Final Result [facility] [address] [place] [address] * EKG 12 LEAD (04/25/2021 7:43 AM MANAGER OF SOFTWARE) Ventricular Rate BPM EXTERNAL EKG Atrial Rate BPM EXTERNAL EKG P-R Interval 194 ms EXTERNAL EKG QRS Duration 100 ms EXTERNAL EKG Q-T Duration 472 ms EXTERNAL EKG QTC CALCULATION 427 ms EXTERNAL EKG P [place] 79 degrees EXTERNAL EKG R [place] 49 degrees EXTERNAL EKG T [place] 67 degrees EXTERNAL EKG 04/25/2021 7:43 AM MANAGER OF SOFTWARE Impressions EXTERNAL EKG - 04/25/2021 9:08 AM MANAGER OF SOFTWARE Sinus bradycardia Abnormal R wave progression (?ASMI [...] significant changes noted Confirmed by Lauren Mahmood [id number] on 04/25/2021 9:08:06 AM us Laurent Abebe BOXING INSTRUCTOR, DISABILITY INSURANCE CLAIM EXAMINER IMG ECG ORDERABLES Final Result EXTERNAL EKG documented in this encounter Visit Diagnoses Diagnosis Pre-op testing- Primary Preoperative examination, unspecified Pre-op testing Preoperative examination, unspecified documented in this encounter Care Teams Game Designer Relationship Specialty Start Date End Date Iker Feldman [address] [address] PCP - General Family Medicine 12/05/17 Juan Gresham MD [address] [facility] C [facility] [address] [place] [address] Cardiovascular Disease - Cardiology 12/05/17 Hemant Delgado MD #[address] [address] Consulting Physician Urology 01/19/22 documented as of this encounter
--- OUTSIDE RECORDS SUMMARY | 2024-10-02 00:16 | XMS_ITS | Encounter Summary ---
Author Organization [facility] Address [address] [place] [address] Phone Care Team Providers Care Senior Game Developer Name Role Phone Iker Feldman Primary Care Provider Juan Gresham MD Unavailable Hemant Delgado MD Unavailable Encounter Details Date Type Department Care Team (Late st Contact Info) Description 03/29/2021 Transcribe Orders [facility] Preop/Pacu II 1 [place] [address] Hemant Delgado MD #[address] [address] Pre-op testing (Primary Dx) Social History Tobacco [...] COVID-19? No / Unsure 03/29/2021 2:12 PM AUDIENCE DEVELOPMENT MANAGER documented as of this encounter Plan of Treatment Not on file documented as of this encounter Results * SARS-COV-2 BY MOLECULAR (04/25/2021 7:54 AM AUDIENCE DEVELOPMENT MANAGER) SARSCOV2 NOT DETECTED (Referen ce Range for this test is Not Detected ) [facility] THERMOFISHER FAST DX 04/25/2021 6:50 PM AUDIENCE DEVELOPMENT MANAGER [facility] Comment:This test was perfor med by a RT-PCR method. Other NASOPHARYNGEAL STRUCTURE / Unknown Non-Phlebotomy Collection / Unknown 04/25/2021 7:54 AM AUDIENCE DEVELOPMENT MANAGER 04/25/2021 8:44 AM AUDIENCE DEVELOPMENT MANAGER Narrative [facility] - 04/25/2021 6:50 PM AUDIENCE DEVELOPMENT MANAGER Authorized Fact Sheets about this test for providers and patients are available at: https://www.fda.gov/medical-devices/dqpyxciuv-vtcqiitgdh-gthjhgw-devices/emergen cy-us e-authorizations us Hemant Delgado MD MICROBIOLOGY - GENERAL ORDERABLE S Final Result [facility] [address] [place] [address], documented in this encounter Visit Diagnoses Diagnosis Pre-op testing- Primary Preoperative examination, unspecified documented in this encounter Care Teams Senior Game Developer Relationship Specialty Start Date End Date Iker Feldman [address] [place] [address] PCP - General Family Medicine 12/05/17 Juan Gresham MD [address] [facility] [address] [place] [address] Cardiovascular Disease - Cardiology 12/05/17 Hemant Delgado MD #2 [facility], [address] [address] Consulting Physician Urology 01/19/22 documented as of this encounter
--- OUTSIDE RECORDS SUMMARY | 2024-10-02 00:16 | XMS_ITS | Encounter Summary ---
Author Organization [facility] Address [address] [place] [address] Phone Care Team Providers Care Revenue Stamp Clerk Name Role Phone Iker Feldman Primary Care Provider [phone] Juan Gresham MD Unavailable Hemant Delgado MD Unavailable Encounter Details Date Type Department Care Team (Late st Contact Info) Description 04/26/2021 Transcribe Orders [facility] Preop/Pacu II 1 [place] [address] Hemant Delgado MD #[address] [address] Pre-op testing (Primary Dx) Social History Tobacco [...] COVID-19? 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 WOODWORK TEACHER documented as of this encounter Plan of Treatment Not on file documented as of this encounter Visit Diagnoses Diagnosis Pre-op testing- Primary Preoperative examination, unspecified documented in this encounter Care Teams Revenue Stamp Clerk Relationship Specialty Start Date End Date Iker Feldman [address] [place] [address] PCP - General Family Medicine 12/05/17 Juan Gresham MD [address] [facility] [address] [place] [address] Cardiovascular Disease - Cardiology 12/05/17 Hemant Delgado MD [address]2 [facility] [address] [place] [address] Consulting Physician Urology 01/19/22 documented as of this encounter
--- OUTSIDE RECORDS SUMMARY | 2024-10-02 00:17 | XMS_ITS | Encounter Summary ---
Author Organization [facility] Address [address] [place] [address] Phone Care Team Providers Care Community Resource Consultant Name Role Phone Iker Feldman Primary Care Provider [phone] Juan Gresham MD Unavailable Hemant Delgado MD Unavailable Encounter Details Date Type Department Care Team (Late st Contact Info) Description 05/16/2021 [facility] Preop[facility]Pacu [facility] 1 [place] [address] Hemant Delgado MD #[address] [address] Pre-op testing (Primary Dx) Social History Tobacco [...] COVID-19? No / Unsure 05/17/2021 11:10 AM FOOT SPECIALIST documented as of this encounter Plan of Treatment Not on file documented as of this encounter Results * SARS-COV-2 BY MOLECULAR (05/17/2021 11:13 AM FOOT SPECIALIST) SARSCOV2 NOT DETECTED (Referen ce Range for this test is Not Detected ) [facility] THERMOFISHER FAST DX 05/18/2021 11:52 AM FOOT SPECIALIST [facility] Comment:This test was perfor med by a RT-PCR method. Other NASOPHARYNGEAL STRUCTURE / Unknown Non-Phlebotomy Collection / Unknown 05/17/2021 11:13 AM FOOT SPECIALIST 05/17/2021 11:57 AM FOOT SPECIALIST Narrative [facility] - 05/18/2021 11:52 AM FOOT SPECIALIST Authorized Fact Sheets about this test for providers and patients are available at: https://www.fda.gov/medical-devices/ucfgrjvqo-bhcuufjxfp-xhgimcs-devices/emergen cy-us e-authorizations us Hemant Delgado MD MICROBIOLOGY - GENERAL ORDERABLE S Final Result [facility] [address] [place] [address], documented in this encounter Visit Diagnoses Diagnosis Pre-op testing- Primary Preoperative examination, unspecified documented in this encounter Care Teams Community Resource Consultant Relationship Specialty Start Date End Date Iker Feldman [address] [place] [address] PCP - General Family Medicine 12/05/17 Juan Gresham MD [address] [facility] [address] [place] [address] Cardiovascular Disease - Cardiology 12/05/17 Hemant Delgado MD #2 [facility], [address] [address] Consulting Physician Urology 01/19/22 documented as of this encounter
--- OUTSIDE RECORDS SUMMARY | 2024-10-02 00:17 | XMS_ITS | Continuity of Care Document ---
Author Organization [facility] Address [address] [place] [address] [place] [address] Phone Care Team Providers Care Integration Software Developer Name Role Phone Iker Feldman MD Unavailable Unavailable Allergies, Adverse Reactions, Alerts Substance Reaction Status Criticality PROPOXYPHENE NAPSYLATE Active No In formation acetaminophen Active No Information Medications Medication Instructions Dosage Effective Dates (start - stop) Status Comments Xanax 1 mg tablet take 1 tablet by oral route every bedtime as needed for F41.1 1 MG - Active PRN for insomnia and anxiety, avoid driving or operate machines hydrocodone 10 mg-acetaminophen 325 mg tablet take 1 by Oral route 4 times every day as needed for G89.4 1 - Active PRn for pain, avoid driving or operate machines Incruse Ellipta [...] Providers Copied on Encounter OFFICE/OUTPA TIENT VISIT, [facility], [address], [place], [place], [address], [place] tel:[phone] [facility] pain (chief complaint)anxie ty1 (chief complaint)anemi a1 (chief complaint)bladd er CA (chief complaint) AnemiaChronic pain syndromeMalign ant neoplasm of bladder, unspecifiedOth er insomnia 5 Gaston Pickett [address], [place], [place], [address] , [place]. tel:[phone] PREV VISIT, EST, 65 & OVER [facility], [address], [place], [place], [address], [place] tel:[phone] [facility] physical (chief complaint) Centrilobular emphysemaChron ic pain syndromeMalign ant neoplasm of bladder, unspecifiedHyp othyroidismMix ed hyperlipidemia Encounter for general adult medical exam w abnormal findingsCorona ry artery disease of [place] coronary artery w/o angina pectorisGERD without esophagitis 5 Gaston Pickett [address], [place], [place], [address] , [place]. tel:[phone] OFFICE/OUTPA TIENT VISIT, [facility], [address], [place], [place], [address], [place] tel:[phone] [facility] pain (chief complaint)anxie ty1 (chief complaint)COPD1 (chief complaint) Chronic pain syndromePrimar y insomniaCentri lobular emphysemaPerso nal history of nicotine dependenceMali gnant neoplasm of bladder, unspecified 5 Gaston Pickett [address], [place], [place], [address] , [place]. tel:[phone] OFFICE/OUTPA TIENT VISIT, [facility], [address], [place], [place], [address], [place] tel:[phone] [facility] pain (chief complaint)anxie ty1 (chief complaint) Chronic pain syndromePrimar y insomnia Jun-0 5 Gaston Dong. [address], [place], [place], [address] , [place]. tel:[phone] OFFICE/OUTPA TIENT VISIT, [facility], [address], [place], [place], [address], [place] tel:[phone] [facility] Medicine pain (chief complaint)anxie ty1 (chief complaint) Chronic pain syndromePrimar y insomnia 5 Gaston Dong. [address], [place], [place], [address] , [place]. tel:[phone] OFFICE/OUTPA TIENT VISIT, [facility], [address], [place], [place], [address], [place] tel:[phone] [facility] pain (chief complaint)anxie ty1 (chief complaint)COPD1 (chief complaint) Chronic pain syndromeCentri lobular emphysemaPrima ry insomnia 5 Gaston Dong. [address], [place], [place], [address] , [place]. tel:[phone] OFFICE/OUTPA TIENT VISIT, [facility], [address], [place], [place], [address], [place] tel:[phone] [facility] pain (chief complaint)anxie ty1 (chief complaint)thyro id1 (chief complaint) Chronic pain syndromePrimar y insomniaHypoth yroidism 5 Gaston Dong. [address], [place], [place], [address] , [place]. tel:[phone] OFFICE/OUTPA TIENT VISIT, [facility], [address], [place], [place], [address], [place] tel:[phone] [facility] pain (chief complaint)anxie ty1 (chief complaint) Chronic pain syndromePrimar y insomnia 4 Feldman Iker. [address], [place], [place], [address] , [place]. tel:[phone] OFFICE/OUTPA TIENT VISIT, [facility], [address], [place], [place], [address], [place] tel:[phone] [facility] pain (chief complaint)anxie ty1 (chief complaint)COPD1 (chief complaint) Chronic pain syndromePrimar y insomniaCentri lobular emphysema 4 Feldman Iker. [address], [place], [place], [address] , [place]. tel:[phone] OFFICE/OUTPA TIENT VISIT, [facility], [address], [place], [place], [address], [place] tel:[phone] [facility] pain (chief complaint)anxie ty1 (chief complaint) Chronic pain syndromePrimar y insomnia 4 Feldman Iker. [address], [place], [place], [address] , [place]. tel:[phone] OFFICE/OUTPA TIENT VISIT, [facility], [address], [place], [place], [address], [place] tel:[phone] [facility] pain (chief complaint)anxie ty1 (chief complaint) Chronic pain syndromePrimar y insomnia 4 Feldman Iker. [address], [place], [place], [address] , [place]. tel:[phone] OFFICE/OUTPA TIENT VISIT, [facility], [address], [place], [place], [address], [place] tel:[phone] [facility] pain (chief complaint)anxie ty1 (chief complaint)COPD1 (chief complaint) Centrilobular emphysemaChron ic pain syndromePrimar y insomnia 4 Feldman Iker. [address], [place], [place], [address] , [place]. tel:[phone] OFFICE/OUTPA TIENT VISIT, [facility], [address], [place], [place], [address], [place] tel:[phone] [facility] pain (chief complaint)anxie ty1 (chief complaint) Chronic pain syndromePrimar y insomnia 4 Gaston Dong. [address], [place], [place], [address] , [place]. tel:[phone] OFFICE/OUTPA TIENT VISIT, [facility], [address] [place], [place], [address], [place] tel:[phone] [facility] pain (chief complaint)anxie ty1 (chief complaint)COPD1 (chief complaint)bladd er Ca (chief complaint) Centrilobular emphysemaChron ic pain syndromePrimar y insomniaMalign ant neoplasm of bladder, unspecified 4 Gaston Dong. [address], [place], [place], [address] , [place]. tel:[phone] OFFICE/OUTPA TIENT VISIT, [facility], [address], [place], [place], [address], [place] tel:[phone] [facility] pain (chief complaint)anxie ty (chief complaint)thyro id1 (chief complaint)HLP (chief complaint) Chronic pain syndromeHypoth yroidismMixed hyperlipidemia Primary insomniaCentri lobular emphysema 4 Gaston Dong. [address], [place], [place], [address] , [place]. tel:[phone] PREV VISIT, EST, 65 & OVER [facility], [address], [place], [place], [address], [place] tel:[phone] [facility] Medicine physical (chief complaint) Encounter for general adult medical exam w abnormal findingsCentri lobular emphysemaChron ic pain syndromePrimar y insomniaHypoth yroidismMalign ant neoplasm of bladder, unspecifiedGER D w/o esophagitisCor onary artery disease of [place] coronary artery w/o angina pectoris 4 Feldman Iker. [address], [place], [place], [address] , [place]. tel:[phone] OFFICE/OUTPA TIENT VISIT, [facility], [address], [place], [place], [address], [place] tel:[phone] [facility] pain (chief complaint)anxie ty1 (chief complaint) Chronic pain syndromePrimar y insomnia May- 4 Feldman Iker. [address], [place], [place], [address] , [place]. tel:[phone] OFFICE/OUTPA TIENT VISIT, [facility], [address], [place], [place], [address], [place] tel:[phone] [facility] pain (chief complaint)anxie ty1 (chief complaint)COPD1 (chief complaint) Centrilobular emphysemaChron ic pain syndromePrimar y insomnia 4 Feldman Iker. [address], [place], [place], [address] , [place]. tel:[phone] OFFICE/OUTPA TIENT VISIT, [facility], [address], [place], [place], [address], [place] tel:[phone] [facility] pain (chief complaint)anxie y1 (chief complaint)hypot hyroidism1 (chief complaint) Hypothyroidism Chronic pain syndromePrimar y insomnia 4 Feldman Iker. [address], [place], [place], [address] , [place]. tel:[phone] OFFICE/OUTPA TIENT VISIT, [facility], [address], [place], [place], [address], [place] tel:[phone] [facility] pain (chief complaint)anxie ty1 (chief complaint) Chronic pain syndromePrimar y insomnia 3 Gaston Dong. [address], [place], [place], [address] , [place]. tel:[phone] OFFICE/OUTPA TIENT VISIT, [facility], [address], [place], [place], [address], [place] tel:[phone] [facility] pain (chief complaint)pain (chief complaint)anxie ty1 (chief complaint) Chronic pain syndromePrimar y insomnia Jan-3 0-202 3 Gaston Dong. [address], [place], [place], [address] , [place]. tel:[phone] OFFICE/OUTPA TIENT VISIT, [facility], [address], [place], [place], [address], [place] tel:[phone] [facility] pain (chief complaint)anxie ty1 (chief complaint) Chronic pain syndromePrimar y insomnia Nov-0 2- 3 Gaston Dong. [address], [place], [place], [address] , [place]. tel:[phone] OFFICE/OUTPA TIENT VISIT, [facility], [address], [place], [place], [address], [place] tel:[phone] [facility] pain (chief complaint)anxie ty1 (chief complaint)hypot hyroidism1 (chief complaint) Chronic pain syndromePrimar y insomniaHypoth yroidism Dec-0 4 3 Gaston Dong. [address], [place], [place], [address] , [place]. tel:[phone] OFFICE/OUTPA TIENT VISIT, [facility], [address], [place], [place], [address], [place] tel:[phone] [facility] pain (chief complaint)anxie ty1 (chief complaint) Chronic pain syndromePrimar y insomnia Nov-0 3 Gaston Dong. [address], [place], [place], [address] , [place]. tel:[phone] OFFICE/OUTPA TIENT VISIT, [facility], [address], [place], [place], [address], [place] tel:[phone] [facility] PAIN (chief complaint)anxie ty1 (chief complaint)bladd er CA1 (chief complaint) Chronic pain syndromePrimar y insomniaMalign ant neoplasm of bladder, unspecifiedAcq uired renal cystCentrilobu lar emphysema 3 Gaston Dong. [address], [place], [place], [address] , [place]. tel:[phone] OFFICE/OUTPA TIENT VISIT, [facility], [address], [place], [place], [address], [place] tel:[phone] [facility] pain (chief complaint)anxie ty1 (chief complaint)GERD1 (chief complaint) Cervantes's esophagus without dysplasiaChron ic pain syndromePrimar y insomnia 3 Gaston Dong. [address], [place], [place], [address] , [place]. tel:[phone] OFFICE/OUTPA TIENT VISIT, [facility], [address], [place], [place], [address], [place] tel:[phone] [facility] pain (chief complaint)anxie ty1 (chief complaint)hemae mesis1 (chief complaint)kidne y tumor1 (chief complaint) HematemesisChr onic pain syndromePrimar y insomniaMalign ant neoplasm of bladder, unspecified 3 Gaston Dong. [address], [place], [place], [address] , [place]. tel:[phone] OFFICE/OUTPA TIENT VISIT, [facility], [address], [place], [place], [address], [place] tel:[phone] [facility] hematemesis1 (chief complaint) HematemesisBar rett's esophagus without dysplasiaAther osclerotic heart disease of [place] coronary artery without angina pectoris 3 Gaston Dong. [address], [place], [place], [address] , [place]. tel:[phone] OFFICE/OUTPA TIENT VISIT, [facility], [address], [place], [place], [address], [place] tel:[phone] [facility] pain (chief complaint)insom nia1 (chief complaint) Chronic pain syndromePrimar y insomnia 3 Gaston Dong. [address], [place], [place], [address] , [place]. tel:[phone] PREV VISIT, EST, 65 & OVER [facility], [address], [place], [place], [address], [place] tel:[phone] [facility] physical (chief complaint) Encounter for general adult medical exam w abnormal findingsHypoth yroidismChroni c pain syndromeCentri lobular emphysemaEleva palomo prostate specific antigen [PSA]Asymptoma tic microscopic hematuriaMixed hyperlipidemia Cervantes's esophagus without dysplasiaPrima ry insomnia Jun- 3 Gaston Dong. [address], [place], [place], [address] , [place]. tel:[phone] OFFICE/OUTPA TIENT VISIT, [facility], [address], [place], [place], [address], [place] tel:[phone] [facility] pain (chief complaint)insom nia1 (chief complaint)HTN (chief complaint)thyro id1 (chief complaint)bladd er CA (chief complaint) Chronic pain syndromePrimar y insomniaHypoth yroidismEssent ial (primary) hypertensionMi xed hyperlipidemia Malignant neoplasm of bladder, unspecified 3 Gaston Dong. [address], [place], [place], [address] , [place]. tel:[phone] OFFICE/OUTPA TIENT VISIT, [facility], [address], [place], [place], [address], [place] tel:[phone] [facility] pain (chief complaint)insom nia1 (chief complaint)kidne y1 (chief complaint)COPD1 (chief complaint) Chronic pain syndromePrimar y insomniaOther specified disorder of kidneyCentrilo bular emphysema 3 Feldman Iker. [address], [place], [place], [address] , [place]. tel:[phone] OFFICE/OUTPA TIENT VISIT, [facility], [address], [place], [place], [address], [place] tel:[phone] [facility] pain (chief complaint)insom nia1 (chief complaint)tobac co1 (chief complaint)bladd er CA1 (chief complaint) Chronic pain syndromePrimar y insomniaMalign ant neoplasm of bladder, unspecifiedTob acco use 3 Gaston Dong. [address], [place], [place], [address] , [place]. tel:[phone] OFFICE/OUTPA TIENT VISIT, [facility], [address], [place], [place], [address], [place] tel:[phone] [facility] pain (chief complaint)insom nia1 (chief complaint) Chronic pain syndromePrimar y insomnia 2 Gaston Dong. [address], [place], [place], [address] , [place]. tel:[phone] OFFICE/OUTPA TIENT VISIT, [facility], [address], [place], [place], [address], [place] tel:[phone] [facility] pain (chief complaint)insom nia1 (chief complaint) Chronic pain syndromePrimar y insomnia 2 Feldman Iker. [address], [place], [place], [address] , [place]. tel:[phone] OFFICE/OUTPA TIENT VISIT, [facility], [address], [place], [place], [address], [place] tel:[phone] [facility] pain (chief complaint)insom nia1 (chief complaint)barre tt1 (chief complaint) Chronic pain syndromePrimar y insomniaBarret t's esophagus without dysplasiaMalig nant neoplasm of bladder, unspecified 2 Gaston Iker. [address], [place], [place], [address] , [place]. tel:[phone] OFFICE/OUTPA TIENT VISIT, [facility], [address], [address], [place] tel:[phone] [facility] pain (chief complaint)insom nia1 (chief complaint)COPD1 (chief complaint)thyro id1 (chief complaint) Chronic pain syndromeBarret t's esophagus without dysplasiaPrima ry insomniaHypoth yroidismCentri lobular emphysema 2 Feldman Iker. [address], [place], [place], [address] , [place]. tel:[phone] OFFICE/OUTPA TIENT VISIT, [facility], [address], [address], [place] tel:[phone] [facility] pain (chief complaint)insom nia1 (chief complaint)CAD (chief complaint) Coronary artery disease of [place] coronary artery w/o angina pectorisChroni c pain syndromePrimar y insomnia 2 Feldman Iker. [address], [place], [place], [address] , [place]. tel:[phone] OFFICE/OUTPA TIENT VISIT, [facility], [address], [place], [place], [address], [place] tel:[phone] [facility] pain (chief complaint)insom nia1 (chief complaint) Chronic pain syndromePrimar y insomnia 2 Feldman Iker. [address], [place], [place], [address] , [place]. tel:[phone] OFFICE/OUTPA TIENT VISIT, [facility], [address], [address], [place] tel:[phone] [facility] pain (chief complaint)insom nia1 (chief complaint) Chronic pain syndromePrimar y insomnia 2 Feldman Iker. [address], [place], [place], [address] , [place]. tel:[phone] OFFICE/OUTPA TIENT VISIT, EST [facility], [address], [place], [place], [address], [place] tel:[phone] [facility] pain (chief complaint)insom nia1 (chief complaint)Dickson tt1 (chief complaint)renal CA (chief complaint) Polyp of colonBarrett's esophagus without dysplasiaInsom niaChronic pain syndromeCa of left kidney, except renal pelvis 2 Feldman Iker. [address], [place], [place], [address] , [place]. tel:[phone] OFFICE/OUTPA TIENT VISIT, EST [facility], [address], [place], [place], [address], [place] tel:[phone] [facility] pain (chief complaint)insom nia1 (chief complaint)vitam in D (chief complaint)colon polyp (chief complaint)emphy sema1 (chief complaint) Chronic pain syndromeInsomn iaVitamin D deficiencyPoly p of colonEmphysema 2 Gaston Iker. [address], [place], [place], [address] , [place]. tel:[phone] PREV VISIT, EST, 65 & OVER [facility], [address], [place], [place], [address], [place] tel:[phone] [facility] physical (chief complaint) Hyperlipidemia Chronic pain syndromeMalign ant neoplasm of bladder, unspecifiedBar rett's esophagus without dysplasiaEmphy semaFolate deficiencyHypo calcemiaHypoth yroidismInsomn iaEncounter for general adult medical exam w abnormal findings 2 Gaston Iker. [address], [place], [place], [address] , [place]. tel:[phone] OFFICE/OUTPA TIENT VISIT, EST [facility], [address], [place], [place], [address], [place] tel:[phone] [facility] pain (chief complaint)insom nia1 (chief complaint)bladd er tumor1 (chief complaint)thyro id1 (chief complaint)CAD1 (chief complaint) Chronic pain syndromeInsomn iaMalignant neoplasm of bladder, unspecifiedHyp erlipidemiaHyp othyroidism 2 Gaston Pickett [address], [place], [place], [address] , [place]. tel:[phone] OFFICE/OUTPA TIENT VISIT, [facility], [address], [place], [address], [place] tel:[phone] [facility] pain (chief complaint)bladd er CA (chief complaint)tobac co (chief complaint)insom nia1 (chief complaint)GERD1 (chief complaint) Chronic pain syndromeInsomn iaBarrett's esophagus without dysplasiaMalig nant neoplasm of bladder, unspecifiedTob acco use 2 Gaston Pickett [address], [place], [place], [address] , [place]. tel:[phone] OFFICE/OUTPA TIENT VISIT, [facility], [address], [place], [place], [address], [place] tel:[phone] [facility] pain (chief complaint)insom nia1 (chief complaint)tobac co1 (chief complaint)bladd er CA (chief complaint)GERD1 (chief complaint) Malignant neoplasm of bladder, unspecifiedIns omniaChronic pain syndromeTobacc o useBarrett's esophagus without dysplasia 1 Gaston Pickett [address], [address], [place], [place], [address] , [place]. tel:[phone] OFFICE/OUTPA TIENT VISIT, [facility], [address], [place], [address], [place] tel:[phone] [facility] pain (chief complaint)insom nia1 (chief complaint)GERD1 (chief complaint)bladd er CA1 (chief complaint) InsomniaChroni c pain syndromeBarret t's esophagus without dysplasiaMalig nant neoplasm of bladder, unspecified 1 Gaston Pickett [address], [address], [place], [place], [address] , [place]. tel:[phone] OFFICE/OUTPA TIENT VISIT, [facility], [address], [place], [address], [place] tel:[phone] [facility] pain (chief complaint)insom nia1 (chief complaint)thyro id1 (chief complaint)bladd er CA (chief complaint) InsomniaHypoth yroidismMalign ant neoplasm of bladder, unspecifiedChr onic pain syndrome 1 Feldman Iker. [address], [place], [place], [address] , [place]. tel:[phone] OFFICE/OUTPA TIENT VISIT, [facility], [address], [place], [place], [address], [place] tel:[phone] [facility] pain (chief complaint)insom nia1 (chief complaint)COPD1 (chief complaint)bladd er CA (chief complaint) InsomniaChroni c pain syndromeTobacc o useEmphysemaMa lignant neoplasm of bladder, unspecified Nov- 1 Feldman Iker. [address], [place], [place], [address] , [place]. tel:[phone] OFFICE/OUTPA TIENT VISIT, [facility], [address], [place], [place], [address], [place] tel:[phone] [facility] pain (chief complaint)insom nia1 (chief complaint)tobac co1 (chief complaint) Chronic pain syndromeInsomn iaTobacco use 1 Feldman Iker. [address], [place], [place], [address] , [place]. tel:[phone] OFFICE/OUTPA TIENT VISIT, [facility], [address], [place], [address], [place] tel:[phone] [facility] pain (chief complaint)insom nia1 (chief complaint)renal 1 (chief complaint) LeukocytosisAc kletsel dehe wintun renal failureHypokal emiaInsomniaCh ronic pain syndromeEssent ial (primary) hypertension 1 Gaston Pickett [address], [place], [place], [address] , [place]. tel:[phone] OFFICE/OUTPA TIENT VISIT, [facility], [address], [place], [place], [address], [place] tel:[phone] [facility] pain1 (chief complaint)insom nia1 (chief complaint)barre tt (chief complaint)weigh t loss1 (chief complaint) Chronic pain syndromeInsomn iaBarrett's esophagus without dysplasiaAbnor mal weight loss 1 Gaston Dong. [address], [place], [place], [address] , [place]. tel:[phone] OFFICE/OUTPA TIENT VISIT, [facility], [address], [place], [place], [address], [place] tel:[phone] [facility] pain (chief complaint)insom na1 (chief complaint) Chronic pain syndromeInsomn ia 1 Gaston Dong. [address], [place], [place], [address] , [place]. tel:[phone] OFFICE/OUTPA TIENT VISIT, [facility], [address], [place], [place], [address], [place] tel:[phone] [facility] pain (chief complaint)insom nia1 (chief complaint)vitam in D (chief complaint) Chronic pain syndromeInsomn iaVitamin D deficiency, unspecified 1 Gaston Pickett [address], [place], [place], [address] , [place]. tel:[phone] OFFICE/OUTPA TIENT VISIT, [facility], [address], [place], [place], [address], [place] tel:[phone] [facility] pain (chief complaint)insom nia1 (chief complaint) Chronic pain syndromeInsomn ia 1 Gaston Dong. [address], [place], [place], [address] , [place]. tel:[phone] OFFICE/OUTPA TIENT VISIT, [facility], [address] [place], [address], [place] tel:[phone] [facility] pain (chief complaint)insom nia1 (chief complaint)COPD1 (chief complaint) Chronic pain syndromeEmphys emaInsomnia May- 1 Gaston Dong. [address], [place], [place], [address] , [place]. tel:[phone] PREV VISIT, EST, 65 & OVER [facility], [address], [place], [place], [address], [place] tel:[phone] [facility] physical (chief complaint) Encounter for general adult medical exam w abnormal findingsChroni c pain syndromeEmphys emaInsomniaHyp othyroidismCor onary artery disease of [place] coronary artery w/o angina pectorisMalign ant neoplasm of bladder, unspecified 1 Gaston Dong. [address], [place], [place], [address] , [place]. [phone] OFFICE/OUTPA TIENT VISIT, [facility], [address] [place], [address], [place] tel:[phone] [facility] pain (chief complaint)insom nia1 (chief complaint)COPD1 (chief complaint) EmphysemaChron ic pain syndromeInsomn ia 0 Gaston Dong. [address], [place], [place], [address] , [place]. tel:[phone] OFFICE/OUTPA TIENT VISIT, [facility], [address] [place], [address], [place] tel:[phone] [facility] pain1 (chief complaint)insom nia1 (chief complaint)hypot hyroidism1 (chief complaint)HLP (chief complaint) Hypothyroidism Hyperlipidemia Chronic pain syndromeInsomn ia 0 Gaston Dong. [address], [place], [place], [address] , [place]. tel:[phone] OFFICE/OUTPA TIENT VISIT, [facility], [address] [place], [address], tel:[phone] [facility] pain (chief complaint)insom nia1 (chief complaint)hypot hyroidism1 (chief complaint)CAD1 (chief complaint) Chronic pain syndromeInsomn iaCoronary artery disease of [place] coronary artery w/o angina pectorisHypoth yroidism 0 Gaston Dong. [address], [place], [place], [address] , [place]. tel:[phone] OFFICE/OUTPA TIENT VISIT, [facility], [address] [place], [address], [place] tel:[phone] [facility] pain (chief complaint)insom nia1 (chief complaint)tobac co1 (chief complaint) Chronic pain syndromeInsomn iaTobacco use 0 Gaston Dong. [address], [address] [place], [address] , [place]. tel:[phone] OFFICE/OUTPA TIENT VISIT, [facility], [address] [place], [address], [place] tel:[phone] [facility] pain (chief complaint)insom nia1 (chief complaint)tobac co (chief complaint)COPD1 (chief complaint) Chronic pain syndromeInsomn iaEmphysemaTob acco use 0 0 Gaston Dong. [address], [place], [place], [address] , [place]. tel:[phone] OFFICE/OUTPA TIENT VISIT, EST [facility], [address] [place], [address], [place] tel:[phone] [facility] Medicine pain (chief complaint)insom nia1 (chief complaint)tobac co1 (chief complaint) Chronic pain syndromeInsomn iaTobacco use 0 Gaston Dong. [address], [place], [place], [address] , . [phone] OFFICE/OUTPA TIENT VISIT, [facility], [address] [place], [address], [phone] [facility] pain (chief complaint)insom nia1 (chief complaint) Chronic pain syndromeInsomn iaMalignant neoplasm of bladder, unspecified 0 Gaston Iker. [address], [place], [place], [address] , [place]. tel:[phone] OFFICE/OUTPA TIENT VISIT, [facility], [address] [place], [address], tel:[phone] [facility] Medicine pain1 (chief complaint)anxie ty1 (chief complaint)COPD1 (chief complaint)bladd er CA1 (chief complaint) Chronic pain syndromeInsomn iaEmphysemaMal ignant neoplasm of bladder, unspecified 0 Gaston Dong. [address], [place], [place], [address] , [place]. tel:[phone] OFFICE/OUTPA TIENT VISIT, [facility], [address] [place], [address], [place] tel:[phone] [facility] pain (chief complaint)anxie ty1 (chief complaint)D (chief complaint) InsomniaChroni c pain syndromeVitami n D deficiency, unspecified 0 Gaston Dong. [address], [place], [place], [address] , [place]. tel:[phone] OFFICE/OUTPA TIENT VISIT, [facility], [address] [place], [address], [place] tel:[phone] [facility] Medicine pain (chief complaint)anxie ty1 (chief complaint) Chronic pain syndromeInsomn ia Apr-0 0 Gaston Dong. [address], [place], [place], [address] , [place]. tel:[phone] OFFICE/OUTPA TIENT VISIT, [facility], [address], [place], [place], [address], tel:[phone] [facility] pain1 (chief complaint)anxie ty1 (chief complaint)Dickson tt1 (chief complaint)bladd er1 (chief complaint)HTn (chief complaint) Cervantes's esophagus without dysplasiaChron ic pain syndromeInsomn iaMalignant neoplasm of bladder, unspecifiedEss ential (primary) hypertension 0 Gaston Dong. [address], [place], [place], [address] , [place]. tel:[phone] Referring Provider: Iker Feldman [address] [place] [address] [place], [address]. tel:[phone] OFFICE/OUTPA TIENT VISIT, [facility], [address] [place], [address], [place] tel:[phone] [facility] copd (chief complaint)pain1 (chief complaint)anxie ty1 (chief complaint)Dickson tt1 (chief complaint)CAD (chief complaint) InsomniaBarret t's esophagus without dysplasiaChron ic pain syndromeEmphys emaCoronary artery disease of [place] coronary artery w/o angina pectoris 0 Gaston Dong. [address], [place], [place], [address] , [place]. tel:[phone] Referring Provider: Iker Feldman [address] [facility] [address], [place], [place], [address]. tel:[phone] OFFICE/OUTPA TIENT VISIT, [facility], [address] [place], [address], [place] tel:[phone] [facility] anxiety1 (chief complaint)pain (chief complaint)bladd er CA (chief complaint)Dickson tt1 (chief complaint)COPD1 (chief complaint) Malignant neoplasm of bladder, unspecifiedEmp hysemaBarrett' s esophagus without dysplasiaChron ic pain syndromeInsomn ia Andrew- 0 G[address] Dong. [address], [place], [place], [address] , [place]. tel:[phone] Referring Provider: Franky Dunham [address], [place], [place], [address]. tel:[phone] OFFICE/OUTPA TIENT VISIT, [facility], [address], [place], [place], [address], tel:[phone] [facility] Medicine chronic pain1 (chief complaint)anxie ty1 (chief complaint)HTN (chief complaint)bladd er CA (chief complaint) Chronic pain syndromeMalign ant neoplasm of bladder, unspecifiedIns omniaEssential (primary) hypertensionCo ronary artery disease of [place] coronary artery w/o angina pectoris 9 Gaston Dong. [address], [place], [place], [address] , [place]. tel:[phone] Referring Provider: Franky Dunham [facility] [address], [place], [place], [address]. tel:[phone] PREV VISIT, EST, 65 & OVER [facility], [address], [place], [place], [address], [place] tel:[phone] [facility] Medicine physical (chief complaint) Encounter for general adult medical exam w abnormal findingsEmphys emaBarrett's esophagus without dysplasiaMalig nant neoplasm of bladder, unspecifiedChr onic pain syndromeHypoth yroidismCorona ry artery disease of [place] coronary artery w/o angina pectoris 9 Gaston Dong. [address], [place], [place], [address] , [place]. [phone] Referring Provider: Franky Dunham [address], [place], [place], [address]. tel:[phone] OFFICE/OUTPA TIENT VISIT, [facility], [address] [place], [address], [place] tel:[phone] [facility] Medicine chronic pain1 (chief complaint)insom nia1 (chief complaint)COPD (chief complaint)HTN (chief complaint) EmphysemaChron ic pain syndromeInsomn iaCoronary artery disease of [place] coronary artery w/o angina pectoris 9 Feldman Iker. [address], [place], [place], [address] , [place]. tel:[phone] OFFICE/OUTPA TIENT VISIT, [facility], [address], [place], [place], [address], [place] tel:[phone] [facility] emphysema1 (chief complaint)chron ic pain1 (chief complaint)insom nia1 (chief complaint)GERD1 (chief complaint) EmphysemaChron ic pain syndromeInsomn iaBarrett's esophagus without dysplasia 9 Feldman Iker. [address], [place], [place], [address] , [place]. tel:[phone] OFFICE/OUTPA TIENT VISIT, [facility], [address], [place], [place], [address], [place] tel:[phone] [facility] chronic pain1 (chief complaint)insom nia1 (chief complaint) Chronic pain syndromeInsomn ia Oct- 9 Feldman Iker. [address], [place], [place], [address] , [place]. tel:[phone] OFFICE/OUTPA TIENT VISIT, [facility], [address], [place], [place], [address], [place] tel:[phone] [facility] chronic pain1 (chief complaint)insom nia1 (chief complaint)COPD1 (chief complaint)bladd er tumor1 (chief complaint) Chronic pain syndromeInsomn iaEmphysemaMal ignant neoplasm of bladder, unspecified 9 Feldman Iker. [address], [place], [place], [address] , [place]. tel:[phone] OFFICE/OUTPA TIENT VISIT, [facility], [address], [place], [place], [address], [place] tel:[phone] [facility] chronic pain (chief complaint)anxie ty1 (chief complaint)bladd er CA (chief complaint)lung (chief complaint) Chronic pain syndromeInsomn iaScreening for lung caMalignant neoplasm of bladder, unspecified 9 Gaston Dong. [address], [place], [place], [address] , [place]. tel:[phone] Referring Provider: Franky Dunham [address], [place], [place], [address]. tel:[phone] OFFICE/OUTPA TIENT VISIT, [facility], [address] [place], [address], [place] tel:[phone] [facility] vitamin D1 (chief complaint)thyro id1 (chief complaint)chron ic pain1 (chief complaint)insom nia1 (chief complaint) Hypothyroidism InsomniaChroni c pain syndromeVitami n D deficiency, unspecified 9 Gaston Dong. [address], [place], [place], [address] , [place]. tel:[phone] Referring Provider: Franky Dunham [address] [facility] [place], [address]. tel:[phone] OFFICE/OUTPA TIENT VISIT, [facility], [address] [place], [address], [place] tel:[phone] [facility] chronic pain (chief complaint)insom nia1 (chief complaint) Chronic pain syndromeInsomn ia 9 Gaston Dong. [address] [place], [address] , [place]. tel:[phone] Referring Provider: Franky Dunham [address], [place], [place], [address]. tel:[phone] OFFICE/OUTPA TIENT VISIT, [facility], [address] [place], [address], [place] tel:[phone] [facility] chronci pain1 (chief complaint)hypot hyroidism1 (chief complaint)CAD1 (chief complaint)lung (chief complaint) Chronic pain syndromeHypoth yroidismCorona ry artery disease of [place] coronary artery w/o angina pectorisScreen ing for lung caInsomnia 9 Gaston Dong. [address], [place], [place], [address] , [place]. tel:[phone] Referring Provider: Franky Dunham [address], [place], [place], [address]. tel:[phone] OFFICE/OUTPA TIENT VISIT, [facility], [address], [place], [place], [address], [place] tel:[phone] [facility] chronic pain1 (chief complaint)insom nia1 (chief complaint) Chronic pain syndromeInsomn ia 9 Gaston Dong. [address], [place], [place], [address] , [place]. tel:[phone] Referring Provider: Franky Dunham [facility], [place], [place], [address]. tel:[phone] OFFICE/OUTPA TIENT VISIT, [facility], [address], [place], [place], [address], [place] tel:[phone] [facility] CAD1 (chief complaint)Dickson tt1 (chief complaint)bladd er tumor1 (chief complaint)chron ic pain1 (chief complaint)insom nia1 (chief complaint) Cervantes's esophagus without dysplasiaChron ic pain syndromeCorona ry artery disease of [place] coronary artery w/o angina pectorisEmphys emaInsomnia 9 Gaston Dong. [address], [place], [place], [address] , [place]. tel:[phone] Referring Provider: Franky Dunham [address], [place], [place], [address]. tel:[phone] OFFICE/OUTPA TIENT VISIT, [facility], [address], [place], [place], [address], [place] tel:[phone] [facility] chronic pain (chief complaint)insom nia1 (chief complaint)bladd er CA1 (chief complaint) Chronic pain syndromeInsomn iaMalignant neoplasm of bladder, unspecified Dec-2 1-201 8 Gaston Dong. [address], [place], [place], [address] , [place]. tel:[phone] Referring Provider: Iker Feldman, [address], [place], [place], [address]. tel:[phone] OFFICE/OUTPA TIENT VISIT, EST [facility], [address], [place], [place], [address], [place] tel:[phone] [facility] chronic pain (chief complaint)anxie ty1 (chief complaint)renal lesion (chief complaint)Dickson tt (chief complaint) InsomniaMalign ant neoplasm of bladder, unspecifiedChr onic pain syndromeBarret t's esophagus without dysplasia 8 Gaston Dong. [address], [place], [place], [address] , [place]. tel:[phone] Referring Provider: Iker Feldman [address] [facility] [address], [place], [place], [address]. tel:[phone] OFFICE/OUTPA TIENT VISIT, [facility], [address], [place], [place], [address], [place] tel:[phone] [facility] thyroid1 (chief complaint)chron ic pain1 (chief complaint)insom nia1 (chief complaint)COPD1 (chief complaint)bladd er tumor1 (chief complaint) EmphysemaInsom niaOther cystic kidney diseasesHypoth yroidismChroni c pain syndrome 8 Gaston Dong. [address], [place], [place], [address] , [place]. tel:[phone] Referring Provider: Franky Dunham [address], [place], [place], [address]. tel:[phone] PREV VISIT, EST, AGE 40-64 [facility], [address], [place], [place], [address], [place] tel:[phone] [facility] Physical (chief complaint) Encounter for general adult medical exam w abnormal findingsChroni c pain syndromeInsomn iaMalignant neoplasm of bladder, unspecifiedCor onary artery disease of [place] coronary artery w/o angina pectorisHypoth yroidismEmphys zuleima 8 Gaston Dong. [address], [place], [place], [address] , [place]. tel:[phone] Referring Provider: Franky Dunham [address], [place], [place], [address]. tel:[phone] OFFICE/OUTPA TIENT VISIT, [facility], [address] [place], [address], [place] tel:[phone] [facility] bladder CA (chief complaint)kidne y cyst1 (chief complaint)chron ic pain1 (chief complaint)insom nia1 (chief complaint) Malignant neoplasm of bladder, unspecifiedOth er cystic kidney diseasesChroni c pain syndromeInsomn ia 0 8 Gaston Pickett [address], [address], [place], [place], [address] , [place]. tel:[phone] Referring Provider: Franky Dunham [address], [place], [place], [address]. tel:[phone] OFFICE/OUTPA TIENT VISIT, [facility], [address] [place], [address], [place] tel:[phone] [facility] chronic pain1 (chief complaint)anxie ty1 (chief complaint)COPD1 (chief complaint)renal 1 (chief complaint) EmphysemaChron ic pain syndromeBladde r disorder, unspecifiedIns omnia 8 Gaston Pickett [address], [place], [place], [address] , [place]. tel:[phone] OFFICE/OUTPA TIENT VISIT, [facility], [address] [place], [address], [place] tel:[phone] [facility] kidney1 (chief complaint)chron ic pain (chief complaint)insom nia1 (chief complaint) Chronic pain syndromeBladde r disorder, unspecifiedOth er cystic kidney diseases 8 Feldman Iker. [address], [place], [place], [address] , [place]. tel:[phone] Referring Provider: Franky Dunham [address] [facility] A, [place], [place], [address]. tel:[phone] OFFICE/OUTPA TIENT VISIT, [facility], [address], [place], [place], [address], [place] tel:[phone] [facility] hypothyroidism (chief complaint)HLP (chief complaint)chron ic pain1 (chief complaint)insom nia1 (chief complaint) Hypothyroidism Hyperlipidemia Chronic pain syndromeInsomn ia 8 Gaston Dong. [address], [place], [place], [address] , [place]. tel:[phone] Referring Provider: Iker Feldman, Franky [address] [facility] [address], [place], [place], [address]. tel:[phone] OFFICE/OUTPA TIENT VISIT, [facility], [address] [place], [address], [place] tel:[phone] [facility] chronic pain (chief complaint)insom nia1 (chief complaint)CAD1 (chief complaint)COPD1 (chief complaint) Chronic pain syndromeCorona ry artery disease of [place] coronary artery w/o angina pectorisInsomn iaTobacco use 8 Gaston Dong. [address], [place], [place], [address] , [place]. tel:[phone] Referring Provider: Franky Dunham [address], [place], [place], [address]. tel:[phone] OFFICE/OUTPA TIENT VISIT, [facility], [address] [place], [address], [place] tel:[phone] [facility] chronic pain (chief complaint)insom nia1 (chief complaint)tobac co1 (chief complaint) Chronic pain syndromeInsomn iaTobacco use 8 Gaston Dong. [address], [place], [place], [address] , [place]. tel:[phone] OFFICE/OUTPA TIENT VISIT, [facility], [address], [place], [place], [address], [place] tel:[phone] [facility] chronic pain1 (chief complaint)anxie ty1 (chief complaint)tobac co1 (chief complaint)Dickson tt (chief complaint) Cervantes's esophagus without dysplasiaInsom niaChronic pain syndromeEmphys zuleima 8 Gaston Dong. [address], [place], [place], [address] , [place]. tel:[phone] Referring Provider: Iker Feldman, [address], [place], [place], [address]. tel:[phone] OFFICE/OUTPA TIENT VISIT, [facility], [address], [place], [place], [address], [place] tel:[phone] [facility] chronic pain1 (chief complaint)insom nia1 (chief complaint) InsomniaChroni c pain syndrome Fe 8 Gaston Dong. [address], [place], [place], [address] , [place]. tel:[phone] OFFICE/OUTPA TIENT VISIT, [facility], [address], [place], [place], [address], [place] tel:[phone] [facility] COPD1 (chief complaint)chron ic pain1 (chief complaint)insom nia1 (chief complaint)barre tt1 (chief complaint) Cervantes's esophagus without dysplasiaEmphy semaInsomniaCh ronic pain syndrome 8 Gaston Dong. [address], [place], [place], [address] , [place]. tel:[phone] Referring Provider: Iker Feldman [address], [place], [place], [address]. tel:[phone] OFFICE/OUTPA TIENT VISIT, [facility], [address], [place], [place], [address], [place] tel:[phone] [facility] sob (chief complaint)chron ic pain1 (chief complaint)insom nia1 (chief complaint) EmphysemaInsom niaChronic pain syndrome Dec- 7 Gaston Dong. [address], [place], [place], [address] , . [phone] Referring Provider: Franky Dunham [address], [place], [place], [address]. tel:[phone] OFFICE/OUTPA TIENT VISIT, [facility], [address], [place], [place], [address], [place] tel:[phone] [facility] chrnoic pain (chief complaint)anxei ty1 (chief complaint) Chronic pain syndromeInsomn ia 7 Gaston Pickett [address], [place], [place], [address] , [place]. [phone] Referring Provider: Franky Dunham [facility] [address], [place], [place], [address]. tel:[phone] OFFICE/OUTPA TIENT VISIT, [facility], [address], [place], [place], [address], [place] tel:[phone] [facility] chronic pain1 (chief complaint)anxie ty1 (chief complaint)thyro id1 (chief complaint)Dickson tt1 (chief complaint) InsomniaHypoth yroidismBarret t's esophagus without dysplasiaChron ic pain syndrome Dec- 7 Gaston Pickett [address], [place], [place], [address] , [place]. [phone] Referring Provider: Franky Dunham [address], [place], [place], [address]. tel:[phone] OFFICE/OUTPA TIENT VISIT, [facility], [address] [place], [address], [place] tel:[phone] [facility] chronic pain (chief complaint)anxie ty1 (chief complaint)ED (chief complaint) Chronic pain syndromeInsomn iaMale erectile dysfunction, unspecified Sep-0 7 Gaston [address], [place], [place], [address] , [place]. [phone] Referring Provider: Franky Dunham [address], [place], [place], [address]. tel:[phone] PREV VISIT, EST, AGE 40-64 [facility], [address], [place], [place], [address], [place] [phone] [facility] Medicine Physical (chief complaint) Encounter for general adult medical exam w abnormal findingsHypoth yroidismInsomn iaAtherosclero tic heart disease of [place] coronary artery without angina pectoris 7 Gaston Pickett [address], [place], [place], [address] , [place]. tel:[phone] Referring Provider: Franky Dunham [address], [place], [place], [address]. tel:[phone] OFFICE/OUTPA TIENT VISIT, EST [facility], [address], [place], [place], [address], [place] [phone] [facility] Cervantes (chief complaint)insom nia1 (chief complaint)chron ic pain1 (chief complaint)CAD (chief complaint) Cervantes's esophagus without dysplasiaChron ic pain syndromeAthero sclerotic heart disease of [place] coronary artery without angina pectorisInsomn ia 7 Gaston Wil[address], [place], [place], [address] , [place]. tel:[phone] Referring Provider: Franky Dunham [address], [place], [place], [address]. tel:[phone] OFFICE/OUTPA TIENT VISIT, EST [facility], [address], [place], [place], [address], [place] tel:[phone] [facility] chronic pain1 (chief complaint)insom nia1 (chief complaint) Chronic pain syndromeInsomn ia 7 Gaston Wilkins [address], [place], [place], [address] , [place]. tel:[phone] Referring Provider: Franky Dunham [address], [place], [place], [address]. tel:[phone] OFFICE/OUTPA TIENT VISIT, [facility], [address], [place], [place], [address], [place] tel:[phone] [facility] CAD (chief complaint)thyro id1 (chief complaint)hep C (chief complaint)chron ic pain1 (chief complaint)anxie ty1 (chief complaint) Hypothyroidism Atheroscleroti c heart disease of [place] coronary artery without angina pectorisInsomn iaHepatitis C 7 Gaston Pickett [address] [facility] [address], [place], [place], [address] , [place]. tel:[phone] Referring Provider: Franky Dunham [facility] [address], [place], [place], [address]. tel:[phone] OFFICE/OUTPA TIENT VISIT, [facility], [address], [place], [place], [address], [place] tel:[phone] [facility] chronic pain (chief complaint)insom nia1 (chief complaint)hep C (chief complaint)HLP (chief complaint) InsomniaHyperl ipidemiaEncoun ter for screening for other viral diseasesHypoth yroidism 7 Gaston Pickett [address], [place], [place], [address] , [place]. tel:[phone] Referring Provider: Franky Dunham [address], [place], [place], [address]. tel:[phone] OFFICE/OUTPA TIENT VISIT, [facility], [address] [place], [address], [place] tel:[phone] [facility] [facility]ysema1 (chief complaint)chron ic pain (chief complaint)insom nia1 (chief complaint)CAD1 (chief complaint) COPDInsomniaCh ronic pain syndromeAthero sclerotic heart disease of [place] coronary artery without angina pectoris 7 Gaston Dong. [address], [place], [place], [address] , [place]. tel:[phone] Referring Provider: Franky Dunham [address], [place], [place], [address]. tel:[phone] OFFICE/OUTPA TIENT VISIT, [facility], [address], [place], [place], [address], [place] tel:[phone] [facility] chronic pain1 (chief complaint)insom nia1 (chief complaint)CAD (chief complaint)tobac co1 (chief complaint) InsomniaTobacc o useChronic pain syndromeAthero sclerotic heart disease of [place] coronary artery without angina pectoris Gaston Dong. [address], [address], [place], [place], [address] , [place]. [phone] Referring Provider: Franky Dunham [address], [place], [place], [address]. tel:[phone] OFFICE/OUTPA TIENT VISIT, [facility], [address], [place], [place], [address], [place] tel:[phone] [facility] chronic pain (chief complaint)insom nia1 (chief complaint)tobac co1 (chief complaint) Chronic pain syndromeInsomn iaTobacco use 7 Gaston Dong. [address], [place], [place], [address] , [place]. tel:[phone] Referring Provider: Franky Dunham [address], [place], [place], [address]. tel:[phone] OFFICE/OUTPA TIENT VISIT, [facility], [address], [place], [place], [address], [place] tel:[phone] [facility] chronic pain1 (chief complaint)anxie ty1 (chief complaint)ED (chief complaint)GERD1 (chief complaint) Cervantes's esophagus without dysplasiaChron ic pain syndromeInsomn iaMale erectile dysfunction, unspecified 6 Gaston Dong. [address], [place], [place], [address] , [place]. tel:[phone] Referring Provider: Franky Dunham [address], [place], [place], [address]. tel:[phone] OFFICE/OUTPA TIENT VISIT, [facility], [address], [place], [place], [address], [place] tel:[phone] [facility] chronic pain (chief complaint)anxie ty1 (chief complaint) Chronic pain syndromeInsomn ia Jan- 6 Gaston Dong. [address], [place], [place], [address] , [place]. tel:[phone] Referring Provider: Franky Dunham [address], [place], [place], [address]. tel:[phone] OFFICE/OUTPA TIENT VISIT, [facility], [address], [place], [place], [address], [place] tel:[phone] [facility] chronic pain (chief complaint)anxie ty1 (chief complaint)hypot hyroidism (chief complaint)HTN (chief complaint) Chronic pain syndromeInsomn iaEssential (primary) hypertensionHy pothyroidism 6 Gaston Dong. [address], [place], [place], [address] , [place]. tel:[phone] Referring Provider: Franky [address], [place], [place], [address]. tel:[phone] OFFICE/OUTPA TIENT VISIT, [facility], [address], [place], [place], [address], [place] tel:[phone] [facility] chronic pain1 (chief complaint)anxie ty1 (chief complaint)GERD1 (chief complaint)HTN (chief complaint) Chronic pain syndromeBarret t's esophagus without dysplasiaEssen tial (primary) hypertensionAn xiolytic dependence Sep-3 0201 6 Gaston Dong. [address], [place], [place], [address] , [place]. tel:[phone] Referring Provider: Franky Dunham [address], [place], [place], [address]. tel:[phone] OFFICE/OUTPA TIENT VISIT, [facility], [address] [place], [address], tel:[phone] [facility] chronic pain (chief complaint)anxie ty1 (chief complaint) Chronic pain syndromeAnxiol ytic dependence 6 Gaston Dong. [address], [place], [place], [address] , [place]. tel:[phone] Referring Provider: Iker Feldman, Franky [facility] A, [place], [place], [address]. tel:[phone] OFFICE/OUTPA TIENT VISIT, [facility], [address] [place], [address], [place] tel:[phone] [facility] CAD (chief complaint)HLP (chief complaint)hypot hyroidism (chief complaint)chron ic pain (chief complaint) Atheroscleroti c heart disease of [place] coronary artery without angina pectorisAnxiol ytic dependenceHype rlipidemiaChro flores pain syndrome 6 Gaston Dong. [address], [facility] A, [place], [place], [address] , [place]. tel:[phone] Referring Provider: Franky Dunham [facility] [place], [address]. tel:[phone] OFFICE/OUTPA TIENT VISIT, [facility], [address] [place], [address], [place] tel:[phone] [facility] chronic pain (chief complaint)insom nia1 (chief complaint)ED1 (chief complaint) Chronic pain syndromeInsomn iaOther male erectile dysfunctionCor onary artery disease of [place] coronary artery w/o angina pectoris 6 Gaston Pickett [address], [place], [place], [address] , [place]. tel:[phone] Referring Provider: Franky Dunham [facility] A, [place], [place], [address]. tel:[phone] OFFICE/OUTPA TIENT VISIT, [facility], [address], [place], [place], [address], [place] tel:[phone] [facility] chronic pain (chief complaint)anxie ty1 (chief complaint) Chronic pain syndromeAnxiol ytic dependence Bebeto-0 6 Gaston Dong. [address], [place], [place], [address] , [place]. tel:[phone] Referring Provider: Iker Feldman, [address], [place], [place], [address]. tel:[phone] OFFICE/OUTPA TIENT VISIT, [facility], [address], [place], [place], [address], [place] tel:[phone] [facility] chronic pain (chief complaint)anxie ty1 (chief complaint)barre tt (chief complaint)CAD (chief complaint) Chronic pain syndromeBarret t's esophagus without dysplasiaCoron william artery disease of [place] coronary artery w/o angina pectorisEncoun ter for screening for malignant neoplasm of prostate Apr-2 6 Gaston Dong. [address], [place], [place], [address] , [place]. tel:[phone] Referring Provider: Franky [address], [place], [place], [address]. tel:[phone] OFFICE/OUTPA TIENT VISIT, [facility], [address] [place], [address], [place] [phone] [facility] chronic pain (chief complaint)anxie ty1 (chief complaint)dizzi ness (chief complaint)anemi a1 (chief complaint) AnemiaDizzines sChronic pain syndrome Apr-0 6 Gaston Dong. [address], [place], [place], [address] , [place]. tel:[phone] Referring Provider: [address]y [address], [place], [place], [address]. tel:[phone] OFFICE/OUTPA TIENT VISIT, [facility], [address], [place], [place], [address], [place] tel:[phone] [facility] chronic pain (chief complaint)anxie ty1 (chief complaint) Other insomniaChroni c pain syndrome 6 Gaston Dong. [address], [place], [place], [address] , [place]. tel:[phone] Referring Provider: Iker Feldman, [address], [place], [place], [address]. tel:[phone] OFFICE/OUTPA TIENT VISIT, [facility], [address], [place], [place], [address], [place] tel:[phone] [facility] GERD1 (chief complaint)HLP1 (chief complaint)chron ic pain (chief complaint)insom nia1 (chief complaint) Hyperlipidemia Chronic pain syndromeGERD without esophagitisHyp othyroidism 6 Gaston Dong. [address], [place], [place], [address] , [place]. tel:[phone] Referring Provider: [address]y [address], [place], [place], [address]. tel:[phone] OFFICE/OUTPA TIENT VISIT, [facility], [address], [place], [place], [address], [place] tel:[phone] [facility] chronic pain (chief complaint)anxie ty1 (chief complaint)GERD1 (chief complaint)CAD (chief complaint) Chronic pain syndromeOther insomniaCorona ry artery disease of [place] coronary artery without angina pectorisHyperl ipidemia 5 Gaston Dong. [address], [place], [place], [address] , [place]. tel:[phone] Referring Provider: Franky Dunham [address], [place], [place], [address]. tel:[phone] OFFICE/OUTPA TIENT VISIT, [facility], [address], [place], [place], [address], [place] tel:[phone] [facility] right ankle pain (chief complaint)anxie ty1 (chief complaint) Chronic pain syndromeOther insomnia 5 Gaston Dong. [address], [place], [place], [address] , [place]. tel:[phone] Referring Provider: Iker Feldman, Frank[address], [place], [place], [address]. tel:[phone] OFFICE/OUTPA TIENT VISIT, [facility], [address], [place], [place], [address], [place] tel:[phone] [facility] ankle pain1 (chief complaint)insom nia1 (chief complaint) Secondary osteoarthritis , right ankle and footOther insomnia 5 Gaston Pickett [address], [place], [place], [address] , [place]. tel:[phone] Referring Provider: Franky Dunham [address], [place], [place], [address]. tel:[phone] OFFICE/OUTPA TIENT VISIT, [facility], [address], [place], [place], [address], [place] tel:[phone] [facility] ankle pain (chief complaint)insom alverto (chief complaint)CAD (chief complaint)gastr ic ulcer (chief complaint) Pain in right ankleOpioid dependence, uncomplicatedH ypertensive heart disease without heart failureChronic gastric ulcer without hemorrhage or perforationTob acco use 5 Gaston Pickett [address], [place], [place], [address] , [place]. [phone] Referring Provider: Franky [address], [place], [place], [address]. tel:[phone] OFFICE/OUTPA TIENT VISIT, [facility], [address], [place], [place], [address], [place] tel:[phone] [facility] HTN (chief complaint)gastr ic ulcer (chief complaint)insom alverto (chief complaint)hypot hyroidism (chief complaint) Insomnia, unspecifiedUns pecified hypothyroidism Unspecified essential hypertensionAc kletsel dehe wintun gastric ulcer without mention of hemorrhage or perforation, with obstruction Nov-0 5 Gaston Dong. [address], [place], [place], [address] , [place]. [phone] Referring Provider: Iker Feldman, Frnaky [address], [place], [place], [address]. tel:[phone] OFFICE/OUTPA TIENT VISIT, [facility], [address], [place], [place], [address], [place] [phone] [facility] pain (chief complaint)anxie ty (chief complaint)hypot hyroidism (chief complaint)gERD (chief complaint) Insomnia, unspecifiedUns pecified hypothyroidism Unspecified essential hypertension Sep-3 5 Gaston Pickett [address], [place], [place], [address] , [place]. [phone] Referring Provider: Franky Dunham [address], [place], [place], [address]. tel:[phone] OFFICE/OUTPA TIENT VISIT, [facility], [address], [place], [place], [address], [place] tel:[phone] [facility] chronic apin (chief complaint)anxie ty (chief complaint) Other chronic pain 5 Gaston Pickett [address], [place], [place], [address] , [place]. [phone] Referring Provider: Franky Dunham [address], [place], [place], [address]. tel:[phone] OFFICE/OUTPA TIENT VISIT, [facility], [address], [place], [place], [address], [place] tel:[phone] [facility] chronic pain (chief complaint)anxie ty (chief complaint) Ankle pain 5 Gaston Pickett [address], [place], [place], [address] , [place]. [phone] Referring Provider: Iker Feldman [address], [place], [place], [address]. tel:[phone] OFFICE/OUTPA TIENT VISIT, [facility], [address], [place], [place], [address], [place] [phone] [facility] chronic pain (chief complaint)anxie ty (chief complaint)hypot hyroidism (chief complaint) Hypothyroidism Pain in joint involving lower legInsomnia, OtherScreening for malignant neoplasms of the prostate 5 Gaston Dong. [address], [place], [place], [address] , [place]. [phone] Referring Provider: Iker Feldman, [address], [place], [place], [address]. tel:[phone] OFFICE/OUTPA TIENT VISIT, [facility], [address], [place], [place], [address], [place] tel:[phone] [facility] chronic pain (chief complaint)anxie ty (chief complaint)gastr ic ulcer (chief complaint)CAD (chief complaint) Insomnia, OtherCAD, [employer] VesselAcute gastric ulcer without mention of hemorrhage or perforation, with obstructionOpi oid type dependence, unspecified use Jun- 5 Gaston Dong. [address], [place], [place], [address] , [place]. [phone] Referring Provider: Iker Feldman, [address], [place], [place], [address]. tel:[phone] OFFICE/OUTPA TIENT VISIT, [facility], [address], [place], [place], [address], [place] tel:[phone] [facility] chronic pain (chief complaint)insom alverto (chief complaint) Insomnia, OtherPain in joint involving lower legOpioid type dependence, unspecified useSedative, hypnotic or anxiolytic dependence, unspecified Mar-0 5 Gaston Dong. [address], [place], [place], [address] , [place]. tel:[phone] Referring Provider: Franky Dunham [address], [place], [place], [address]. tel:[phone] OFFICE/OUTPA TIENT VISIT, [facility], [address], [place], [place], [address], [place] tel:[phone] [facility] chornic pain (chief complaint)anxie ty (chief complaint)HLP (chief complaint)hypot hyroidism (chief complaint) Hypothyroidism Insomnia, OtherOther and unspecified hyperlipidemia Pain in joint involving lower leg 5 Gaston Dong. [address], [place], [place], [address] , [place]. [phone] Referring Provider: Iker Feldman, [address], [place], [place], [address]. tel:[phone] OFFICE/OUTPA TIENT VISIT, [facility], [address], [place], [place], [address], [place] tel:[phone] [facility] GERD (chief complaint)chron ic pain (chief complaint)anxie ty (chief complaint)HLP (chief complaint) Hypothyroidism CAD, [employer] VesselPain in joint involving lower legHypertensio n, Unspecified 5 Gaston Dong. [address], [place], [place], [address] , [place]. [phone] Referring Provider: Franky Dunham [address], [place], [place], [address]. tel:[phone] OFFICE/OUTPA TIENT VISIT, [facility], [address], [place], [place], [address], [place] tel:[phone] [facility] chronic pain (chief complaint)Anxie ty (chief complaint)HLP (chief complaint) Other and unspecified hyperlipidemia Pain in joint involving lower leg 4 Gaston Dong. [address], [place], [place], [address] , [place]. tel:[phone] Referring Provider: Iker Feldman [address], [place], [place], [address]. tel:[phone] OFFICE/OUTPA TIENT VISIT, [facility], [address], [place], [place], [address], [place] [phone] [facility] HLP (chief complaint)chron ic pain (chief complaint)anxie ty (chief complaint)HTN (chief complaint)CAD (chief complaint)GERD (chief complaint) Hypothyroidism CAD, [employer] VesselHyperten jayleen, UnspecifiedCHR ONIC PAIN NEC 4 Gaston Dong. [address], [place], [place], [address] , [place]. tel:[phone] Referring Provider: Franky Dunham [address], [place], [place], [address]. tel:[phone] OFFICE/OUTPA TIENT VISIT, [facility], [address], [place], [place], [address], [place] tel:[phone] [facility] chronic pain (chief complaint)anxie ty (chief complaint) Hypothyroidism Pain in joint involving lower leg 4 Gaston Dong. [address], [place], [place], [address] , [place]. tel:[phone] Referring Provider: Franky Dun[address], [place], [place], [address]. tel:[phone] OFFICE/OUTPA TIENT VISIT, [facility], [address], [place], [place], [address], [place] tel:[phone] [facility] chronic pain (chief complaint)anxie ty (chief complaint)GERD (chief complaint)CAD (chief complaint) Pain in joint involving lower legCAD, [employer] [place] VesselAcute gastric ulcer without mention of hemorrhage or perforation, with obstructionHyp othyroidism 0 4 Gaston Dong. [address], [place], [place], [address] , [place]. tel:[phone] Referring Provider: Franky Dunham [address], [place], [place], [address]. tel:[phone] OFFICE/OUTPA TIENT VISIT, [facility], [address], [place], [place], [address], [place] tel:[phone] [facility] chornic pain (chief complaint)anxie ty (chief complaint)HTN (chief complaint) CHRONIC PAIN NECHypertensio n, Unspecified 4 Gaston Dong. [address], [place], [place], [address] , [place]. [phone] Referring Provider: Franky Dunham [address], [place], [place], [address]. tel:[phone] OFFICE/OUTPA TIENT VISIT, [facility], [address], [place], [place], [address], [place] tel:[phone] [facility] GERD (chief complaint)chorn ic pain (chief complaint)anxie ty (chief complaint) GERDCHRONIC PAIN NEC 4 Gaston Dong. [address], [place], [place], [address] , [place]. [phone] Referring Provider: Franky Dunham [address], [place], [place], [address]. tel:[phone] OFFICE/OUTPA TIENT VISIT, [facility], [address], [place], [place], [address], [place] tel:[phone] [facility] gastric ulcer (chief complaint)chorn ic pain (chief complaint)anxie ty (chief complaint)hypot hyroidism (chief complaint) Acute gastritis (without mention of hemorrhage)CHR ONIC PAIN NECPain in joint involving lower legHypothyroid ism 4 Gaston Dong. [address], [place], [place], [address] , [place]. [phone] Referring Provider: Franky Dunham [address], [place], [place], [address]. tel:[phone] OFFICE/OUTPA TIENT VISIT, [facility], [address], [place], [place], [address], [place] tel:[phone] [facility] chornic pain (chief complaint)anxie ty (chief complaint)gastr ic ulcer (chief complaint)CAD (chief complaint) Acute gastric ulcer without mention of hemorrhage or perforation, with obstructionPai n in joint involving lower legCAD, [employer] July- 4 Gaston Dong. [address], [place], [place], [address] , [place]. [phone] Referring Provider: Iker Feldman, Franky [address], [place], [place], [address]. tel:[phone] OFFICE/OUTPA TIENT VISIT, [facility], [address], [place], [place], [address], [place] tel:[phone] [facility] HLP (chief complaint)CAD (chief complaint)hemat uria (chief complaint)chorn ic pain (chief complaint)anxie ty (chief complaint) Other and unspecified hyperlipidemia CAD, [employer] VesselHEMATURI A NOSPain in joint involving lower leg Apr-0 4 Gaston Dong. [address], [place], [place], [address] , [place]. [phone] Referring Provider: Iker Feldman, [address], [place], [place], [address]. tel:[phone] OFFICE/OUTPA TIENT VISIT, [facility], [address], [place], [place], [address], [place] tel:[phone] [facility] hematuria (chief complaint)hypot hyroidism (chief complaint)chron ic painPt (chief complaint) HEMATURIA NOSCHRONIC PAIN NECHypothyroid ism May-0 4 Gaston Dong. [address], [place], [place], [address] , [place]. [phone] Referring Provider: Franky [address], [place], [place], [address]. [phone] OFFICE/OUTPA TIENT VISIT, [facility], [address], [place], [place], [address], [place] tel:[phone] [facility] chronic pain (chief complaint)HLP (chief complaint)Anxie ty (chief complaint)hemtu valerio (chief complaint) CHRONIC PAIN NECHypothyroid ismOther and unspecified hyperlipidemia HEMATURIA NOS Fe 4 Gaston Dong. [address], [place], [place], [address] , [place]. tel:[phone] Referring Provider: Iker Feldman, [address], [place], [place], [address]. tel:[phone] OFFICE/OUTPA TIENT VISIT, [facility], [address], [place], [place], [address], [place] tel:[phone] [facility] CAD (chief complaint)chorn ic pain (chief complaint)anxie ty (chief complaint)Hypot hyroidism (chief complaint) Hypothyroidism CAD, [employer] VesselOther and unspecified hyperlipidemia CHRONIC PAIN NEC 4 Gaston Dong. [address], [place], [place], [address] , [place]. tel:[phone] Referring Provider: Franky Dunham [address], [place], [place], [address]. tel:[phone] OFFICE/OUTPA TIENT VISIT, [facility], [address], [place], [place], [address], [place] tel:[phone] [facility] chronic pain (chief complaint)anxie ty (chief complaint) CHRONIC PAIN NEC 3 Gaston Dong. [address], [place], [place], [address] , [place]. tel:[phone] Referring Provider: Franky Dunham [address], [place], [place], [address]. tel:[phone] OFFICE/OUTPA TIENT VISIT, [facility], [address], [place], [place], [address], [place] tel:[phone] [facility] chronic pain (chief complaint)anxie ty (chief complaint) CHRONIC PAIN NECHypothyroid ismOther and unspecified hyperlipidemia 3 Gaston Pickett [address], [place], [place], [address] , [place]. [phone] Referring Provider: Franky Dunham [address], [place], [place], [address]. tel:[phone] OFFICE/OUTPA TIENT VISIT, [facility], [address], [place], [place], [address], [place] tel:[phone] [facility] hypothyroidism (chief complaint)Chron ic pain (chief complaint)anxie ty (chief complaint) Hypothyroidism Other and unspecified hyperlipidemia CAD, [employer] 3 Gaston Pickett [address], [place], [place], [address] , [place]. [phone] Referring Provider: Franky Dunham [address], [place], [place], [address]. tel:[phone] OFFICE/OUTPA TIENT VISIT, [facility], [address], [place], [place], [address], [place] tel:[phone] [facility] chronic pain (chief complaint)anxie ty (chief complaint) CHRONIC PAIN NECHypothyroid ismOther and unspecified hyperlipidemia 3 Gaston Pickett [address], [place], [place], [address] , [place]. [phone] Referring Provider: Franky Dunham [address], [place], [place], [address]. tel:[phone] OFFICE/OUTPA TIENT VISIT, [facility], [address], [place], [place], [address], [place] tel:[phone] [facility] Hypothyroidism (chief complaint)CAD (chief complaint)chron ic pain (chief complaint) Hypothyroidism CAD, [employer] VesselCHRONIC PAIN NEC Aug 3 Gaston Pickett [address], [place], [place], [address] , [place]. tel:[phone] Referring Provider: Iker Feldman, [address], [place], [place], [address]. tel:[phone] OFFICE/OUTPA TIENT VISIT, [facility], [address], [place], [place], [address], [place] [phone] [facility] CAD (chief complaint)chron ic pain (chief complaint)anxie ty (chief complaint) CAD, [employer] VesselCHRONIC PAIN NECInsomnia, Other 3 Gaston Dong. [address], [place], [place], [address] , [place]. [phone] Referring Provider: Franky Dunham [address], [place], [place], [address]. tel:[phone] OFFICE/OUTPA TIENT VISIT, [facility], [address], [place], [place], [address], [place] tel:[phone] [facility] CAD (chief complaint)Chron ic pain (chief complaint)anxie ty (chief complaint) CAD, [employer] [place] VesselCHRONIC PAIN NECHypothyroid ism 3 Gaston [address], [address], [place], [place], [address] , [place]. [phone] Referring Provider: Franky Dunham [address], [place], [place], [address]. tel:[phone] OFFICE/OUTPA TIENT VISIT, [facility], [address], [place], [place], [address], [place] tel:[phone] [facility] chronic pain (chief complaint)anxie ty (chief complaint)Hypot hyroidism (chief complaint) Hypothyroidism CHRONIC PAIN NEC 3 Gaston Dong[address], [address], [place], [place], [address] , [place]. tel:[phone] Referring Provider: Franky Dunham [address], [place], [place], [address]. tel:[phone] OFFICE/OUTPA TIENT VISIT, [facility], [address], [place], [place], [address], [place] tel:[phone] [facility] chornic pain (chief complaint)Anxie ty. (chief complaint)hypot hyroidism (chief complaint) Hypothyroidism CHRONIC PAIN NECRESTLESS LEGS SYNDROME Jun-0 3 Gaston Dong. [address], [address], [place], [place], [address] , [place]. tel:[phone] Referring Provider: Iker Feldman, [address], [place], [place], [address]. tel:[phone] OFFICE/OUTPA TIENT VISIT, [facility], [address], [place], [place], [address], [place] tel:[phone] [facility] chronic pain (chief complaint)viral (chief complaint)Anxie ty (chief complaint) Viral Infection, UnspecifiedCHR ONIC PAIN NECHypothyroid ism May-0 3 Gaston Dong[address], [address], [place], [place], [address] , [place]. tel:[phone] Referring Provider: Franky Dunham [address], [place], [place], [address]. tel:[phone] OFFICE/OUTPA TIENT VISIT, [facility], [address], [place], [place], [address], [place] tel:[phone] [facility] chronic pain (chief complaint)Anxie ty (chief complaint)hypot hyroidism (chief complaint)ED (chief complaint) Hypothyroidism CHRONIC PAIN NECErectile Dysfunction Fe-0 3 Gaston Dong. [address], [place], [place], [address] , [place]. tel:[phone] Referring Provider: Iker Feldman [address], [place], [address]. tel:[phone] OFFICE/OUTPA TIENT VISIT, [facility], [address], [place], [place], [address], [place] tel:[phone] [facility] hypothyroidism (chief complaint)chron ic pain (chief complaint) CHRONIC PAIN NECHypothyroid ismRESTLESS LEGS SYNDROME 3 Gaston Dong[address], [address], [place], [address] , [place]. [phone] Referring Provider: Iker Feldman, [address], [place], [place], [address]. tel:[phone] OFFICE/OUTPA TIENT VISIT, [facility], [address], [place], [place], [address], [place] [phone] [facility] chronic pain (chief complaint)restl ess leg syndrome (chief complaint)anxie ty (chief complaint) CHRONIC PAIN NECRESTLESS LEGS SYNDROME 2 Gaston Pickett [address], [address], [place], [place], [address] , [place]. [phone] Referring Provider: Franky Dunham [address], [place], [place], [address]. tel:[phone] OFFICE/OUTPA TIENT VISIT, [facility], [address], [place], [place], [address], [place] tel:[phone] [facility] chronic pain (chief complaint)restl ess leg (chief complaint) RESTLESS LEGS SYNDROMECHRONI C PAIN NEC 2 Gaston Pickett [address], [address], [place], [place], [address] , [place]. [phone] Referring Provider: Franky Dunham [address], [place], [place], [address]. tel:[phone] OFFICE/OUTPA TIENT VISIT, [facility], [address], [place], [place], [address], [place] tel:[phone] [facility] chornic pain (chief complaint)anxie ty (chief complaint)insom alverto (chief complaint) Insomnia, OtherCHRONIC PAIN NECRESTLESS LEGS SYNDROME 0 2 G[address] Dong[address], [place], [place], [address] , . tel:[phone] Referring Provider: [address], [place], [place], [address]. tel:[phone] Family History Family Member Type Diagnosis Age At Onset Father Problem (finding) Cancer - colon CA Mother Problem (finding) Alive and well Brother Problem (finding) Coronary artery disease Brother Problem (finding) Other Payers Payer name Insurance type Covered constitution party ID Authoriza ticlaudette(s) [facility] [id number] Social History Type Description Quantity Date Captured [...] Td vaccine. Due on 19 due Goal Special diet education compl eted [...] ordered Referral Referred To: Suzanne Beckham [address] [place], [place] [id number] Ordered: Referrals: Allopathic & Osteopathic Physicians : Urology. Suzanne Beckham. 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 Pt denies any neuropathy COPD1 Pt has COPD Pt i s still smoking Pt uses incruse daily and he uses albuterol 2-3 per week Pt denies any hemoptysis, worsening sob or any cough anxiety1 Pt has chronic a nxiety [...] ok post op. Pt has normal UO anxiety1 Pt has chronic a nxiety and insomnia. Pt takes xanax qhs PRn and doing ok, Pt denies any depression or any suicidal thought. Pt denies any crying spells Pt doing ok with xanax qhs PRN PAIN Pt has chronic r ight ankle [...] cervantes Pt takes omeprazole and doing ok insomnia1 Pt has chronic [...] Pt doing ok with xanax qhs PRN kidney Pt has ? right k idney mass [...] with xanax qhs PRN tobacco1 Pt has retirement smoking history. Pt denies any hemoptysis, worsening [...] qhs PRN Barrett Pt has cervantes e everardoagus. Pt takes omeprazole .Pt saw GI recently [...] any worsening pain. Pt denies any neuropathy emphysema Pt has emphysema Pt denies any hemoptysis, worsening and cough Pt uses incruse Pt needs albuterol refilled vitamin D Pt has low D. Pt [...] above. pt denies any lower GI issue insomnia Pt has chronic a nxiety and insomnia. Pt takes xanax qhs PRn and doing ok, Pt denies any depression or any suicidal thought. Pt denies any crying spells Pt doing ok with xanax qhs PRN physical Pt needs annual physical. Pt has [...] Pt has HLP. Pt takes plavix also. thyroid Pt has hypothyro idism. Pt takes synthroid [...] again canceled. Pt did call urology at [facility] who he used to see and they did get a new urologist and he has cezar with new urologist on 03/16/21. pt denies any urinary symptoms or blood in urine GERD1 Pt has cervantes. Pt had EGD 2019 and colonoscopy 2016. He supposes to see GI last year [...] xanax qhs PRN COPD1 Pt has COPD. pt uses incruse and [...] qhs PRN tobacco Pt needs LDCT, w [facility] is approved pt still smoking Pt [...] denies any hemoptysis, worsening sob or cough insomnia1 Pt has chronic a nxiety and [...] doing ok. Pt denies any worsening pain COPD1 Pt has COPD. 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 anxiety1 [...] and he is seeing Dr. Junior in [place] and he will have the mass removed [...] Evaristo braun who is a urologist in [facility] who did the cysto and he told me the renal lesion is almost 100% sure a benign cyst. He did take the Ct to his radiologist over [facility] However, he is not in network with [...] norco PRN for pain. Pt failed NSAID insomnia1 Pt has chronic [...] nothing can be done at this point. barrett1 Pt has helen. Pt is on omeparzole. Pt denies any [...] xanax q hs PRn and doing ok. sob pt feels mild ex ertional sob sometimes, especially when he has intercourse. Pt feels sob about maybe about once per day. Pt denies any acute sob chronic pain1 Pt has chronic r ight ankle pain Pt denies any worsening pain. Pt needs handiDubba parking. insomnia1 Pt has insomnia and anxiety. Pt takes xana qhs PRN and doing ok. Pt denies any suiciadl or homicidal thought anxeity1 Pt has chronic a nxiety and insomnia. Pt takes xanax qhs PRn and doingo k. Pt denies any depression or any suicidal thought. Pt denies any cyring spells chrnoic pain Pt has chronic r ight ankle pain Pt has history of ankle fracture without any surgical repair. Pt has multiple ankle ligament tear and fragmentation of right ankle Pt seen ortho/podiatry in the past but was told nothing can be done due to chronic nature of it Pt sometimes has some burning feeling right heel area chronic pain1 Pt has chronic r ight [...] to schedule for CT of chest but [facility] will not do it. Pt [...] any cyring spells GERD1 Pt has Cervantes salome mcgeeagus. Pt is taking omeprazole. Pt denies any [...] of bladder, unspecified Quit smoking Related to Chron ic pain syndrome Special diet education Related t o Body mass index (BMI) 27.0-27.9, adult Quit smoking Related to Encou nter for general adult medical exam w abnormal findings Special diet education Related t o Body mass index (BMI) 27.0-27.9, adult Quit smoking Related to Emphy sema Special [...] Surveillance and Counseling Quit smoking Related to Dickson tt's esophagus without dysplasia Prescribed Activity and Exercise Education Related to Dietary Surveillance and Counseling Prescribed Diet Educ ation/Lifestyle Education Regarding Diet Related to Dietary Surveillance and Counseling Quit smoking Related to Insom alverto Prescribed Activity and Exercise Education Related to Dietary Surveillance and Counseling Prescribed Diet Educ ation/Lifestyle Education Regarding Diet Related to Dietary Surveillance and Counseling Quit smoking Related to [place]icks[place] tt's esophagus without dysplasia Quit smoking Related [...] Surveillance and Counseling exercise Related to CAD, [employer] Assessments Type Assessment Date assessment Anemia assessment Chronic pain syndrome assessment Malignant neoplasm of bladder, u nspecified assessment Other insomnia Mental Status Date Cognitive Assessment Orientation - [place] ed to time, place, person, situation.
--- OUTSIDE RECORDS SUMMARY | 2024-10-02 00:17 | XMS_ITS | Referral Summary ---
Author Organization [facility] [address] Address [address] [place] [address] Care Team Providers Care Security Analyst Name Role Phone Iker Feldman MD Primary Care Provider [phone] Iker Feldman MD Unavailable [phone] Encounters Date Type Department Care Team Description 08/19/[address] [facility] Cardiology [address] [facility] [address] [place] [address] Perri Lux NP preop form [...] 1 tablet (88 mcg total) by mouth cigarette catcher before breakfast Active albuterol HFA (PROVENTIL HFA,VENTOLIN [...] needed for pain Active cholecalciferol (VITAMIN D-3) 57501 unit tablet Take 1 tablet (50,000 Units total) by mouth once a week Active carvediloL (COREG) 3.125 mg tabletIndications :Coronary artery disease involving [place] coronary artery of [place] heart without angina pectoris Take 1 tablet (3.125 mg total) by mouth 2 (two) times a day with meals 180 tablet 3 4 Active clopidogreL (PLAVIX) 75 mg tabletIndications :Coronary artery disease involving [place] coronary artery of [place] heart without angina pectoris Take 1 tablet (75 mg total) by mouth daily 90 tablet 3 4 Active atorvastatin (LIPITOR) 40 mg tabletIndications :Coronary artery disease involving [place] coronary artery of [place] heart without angina pectoris Take 1 tablet (40 mg total) by mouth daily 90 tablet 3 4 Active nitroglycerin (NITROSTAT) 0.4 mg SL tabletIndications :Coronary artery disease involving [place] coronary artery of [place] heart without angina pectoris Place 1 tablet (0.4 mg total) under the tongue every 5 (five) minutes as needed for chest pain Up to 3 doses 25 tablet 4 Active lisinopriL (PRINIVIL,ZESTRIL ) 10 mg tabletIndications :Coronary artery disease involving [place] coronary artery of [place] heart without angina pectoris TAKE ONE TABLET [...] on file 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
--- OUTSIDE RECORDS SUMMARY | 2024-10-02 00:17 | XMS_ITS | Clinical Summary ---
Author Organization [facility] Address [address] [place] [address] Phone Care Team Providers Care Display Artist Name Role Phone Iker Feldman Primary Care Provider [phone] Juan Gresham MD Unavailable Hemant Delgado MD [...] minutes as needed. Active ergocalciferol (VITAMIN D) 86441 UNIT Capsule Take 1 Capsule by mouth. 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 Pulse 54 01/19/2022 8:53 AM DEVELOPER AUTOMATIC Temperature 36.4 C (97.6 F) 01/19/2022 8:53 AM DEVELOPER AUTOMATIC Respiratory Rate 18 01/19/2022 8:53 AM DEVELOPER AUTOMATIC Oxygen Saturation 98% 01/19/2022 8:53 AM DEVELOPER AUTOMATIC Inhaled Oxygen Concentration - - Weight 72.2 kg (159 lb 3.2 oz) 01/19/2022 8:53 A M [employer]ELOPER AUTOMAT[employer] Height 174 cm (5' 8.5) 09/16/2021 11:49 [...] this topic Medical Devices Implanted Type Area Dental Assistant Instructor Device Identifier Shelf Expiration Date Model / Serial / Lot Stent Ureteral 6fr 2.1fr 26cm 2 Pigtail Curve 2 Durometer Taper Tip Loprfl Graduated Polaris Ultra - [id number] Implanted:Qty : 1 on 03/19/2018 by Viviana Junior MD at [facility] IMPLANT Right: Ureter [employer] 10/03/2020 [id number] 0 / [id number] 0 / [id number] Stent Ureteral 6fr 2.1fr 24cm 2 Pigtail Curve 2 Durometer Taper Tip Loprfl Graduated Polaris Ultra - [id number] Implanted:Qty : 1 on 04/29/2021 by Hemant Delgado MD at [facility] IMPLANT Left: Ureter [employer] 01/12/2024 [id number] 0 / [id number] 0 / [id number] Stent Ureteral 6fr 2.1fr 24cm 2 Pigtail Curve 2 Durometer Taper Tip Loprfl Graduated Polaris Ultra - [id number] Implanted:Qty : 1 on 05/20/2021 by Hemant Delgado MD at [facility] IMPLANT Left: Ureter [employer] 02/04/2024 [id number] 0 / [id number] 0 / [id number] Stent Ureteral 6fr 2.1fr 24cm 2 Pigtail Curve 2 Durometer Taper Tip Loprfl Graduated Polaris Ultra - [id number] Implanted:Qty : 1 on 05/20/2021 by Hemant Delgado MD at [facility] IMPLANT Right: Ureter [employer] 02/04/2024 [id number] 0 / [id number] 0 / [id number] Stent Ureteral 6fr 2.1fr 28cm 2 Pigtail Curve 2 Durometer Taper Tip Loprfl Graduated Polaris Ultra - [id number] Implanted:Qty : 1 on 09/09/2021 by Hemant Delgado MD at [facility] IMPLANT Right: Ureter [employer] 02/08/2024 [id number] 0 / [id number] 0 / [id number] Explanted Type Area Dental Assistant Instructor Device Identifier Shelf Expiration Date Model / Serial / Lot Stent Ureteral 6fr 2.1fr 24cm 2 Pigtail Curve 2 Durometer Taper Tip Loprfl Graduated Testin Ultra - [id number] Implanted:Qty : 1 on 04/29/2021 by Hemant Delgado MD at [facility] Explanted:Qty : 1 on 05/20/2021 by Hemant Delgado MD at [facility] IMPLANT Right: Ureter Project 2020 01/12/2024 [id number] 0 / [id number] 0 / [id number] Procedures Procedure Name Priority Date/Time Associated Diagnosis [...] Documents on File Type Date Recorded 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
--- OUTSIDE RECORDS SUMMARY | 2024-10-02 00:17 | XMS_ITS | Encounter Summary ---
Author Organization [facility] Address [address] [place] [address] Phone Care Team Providers Care Label Stamper Name Role Phone Iker Feldman Primary Care Provider [phone] Juan Gresham MD Unavailable Hemant Delgado MD Unavailable Encounter Details Date Type Department Care Team (Late st Contact Info) Description 03/29/2021 [facility]cribe [facility] Pre[facility] [address] [place] [id number] Hemant Delgado MD [address] [address] Social History Tobacco Use Types Packs/Day Years [...] COVID-19? 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 [address] PCP - General Family Medicine 12/05/17 Juan Gresham MD [address] [facility] [address] [place] [address] Cardiovascular Disease - Cardiology 12/05/17 Hemant Delgado MD #2 [facility] [address] [place] [address] Consulting Physician Urology 01/19/22 documented as of this encounter
--- OUTSIDE RECORDS SUMMARY | 2024-10-02 00:17 | XMS_ITS | Clinical Summary ---
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 albuterol HFA (PROVENTIL [...] needed for pain Active cholecalciferol (VITAMIN D-3) 02298 unit tablet Take 1 tablet (50,000 Units total) by mouth once a week Active carvediloL (COREG) 3.125 mg tabletIndications :Coronary artery disease involving [place] coronary artery of [place] heart without angina pectoris Take 1 tablet (3.125 mg total) by mouth 2 (two) times a day with meals 180 tablet 3 4 Active clopidogreL (PLAVIX) 75 mg tabletIndications :Coronary artery disease involving [place] coronary artery of [place] heart without angina pectoris Take 1 tablet (75 mg total) by mouth daily 90 tablet 3 4 Active atorvastatin (LIPITOR) 40 mg tabletIndications :Coronary artery disease involving [place] coronary artery of [place] heart without angina pectoris Take 1 tablet (40 mg total) by mouth daily 90 tablet 3 4 Active nitroglycerin (NITROSTAT) 0.4 mg SL tabletIndications :Coronary artery disease involving [place] coronary artery of [place] heart without angina pectoris Place 1 tablet (0.4 mg total) under the tongue every 5 (five) minutes as needed for chest pain Up to 3 doses 25 tablet 4 Active lisinopriL (PRINIVIL,ZESTRIL ) 10 mg tabletIndications :Coronary artery disease involving [place] coronary artery of [place] heart without angina pectoris TAKE ONE TABLET BY MOUTH DAILY 90 tablet 2 4 Active Active Problems Problem Noted Date Diagnosed Date Atherosclerosis of coronary artery 12/12/2013 Overview (06/15/2016): Coronary atherosclerosis Encounters Date Type Department Care Team Description 08/19/2024 Telephone [facility] Medical [facility] Cardiology [address] [place] [address] Perri Lux NP preop form [...] on file 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
[2024-10-02] MEDS: SODIUM BICARBONATE TAB 650 MG TABLET 1300 MG PO (08:39)
[2024-10-02] MEDS: LACTATED RINGERS 1,000 ML 30 ML IV CONT (08:55)
--- NOTE | 2024-10-02 08:55 | P.PNAN_ITS ---
Anes - Initial Pre Proc Eval Procedure: Operation Date: 10/02/24 11:30 Proposed Procedures p Cystoscopy, Right Retrograde Pyelogram, Right Ureteroscopy, Jelmyto Instillation - Vlad Gilliam MD Date/Time: 10/02/24 08:55 Surgeon: Vlad Gilliam MD Pre Op Diagnosis: bladder CA Patient Data Age: 69 Gender: M Height: 1.73 m Weight: 72.2 kg Last Vital Signs Temp 97.6 F 10/02/24 08:34 Pulse 65 10/02/24 08:34 Resp 20 10/02/24 08:34 BP 110/63 10/02/24 08:34 Pulse Ox 100 10/02/24 08:34 O2 Del Method Room Air 10/02/24 08:34 Allergies Allergy/AdvReac Type Severity Reaction Status Date / Time propoxyphene Allergy Intermediate Hives, Verified 10/02/24 08:33 N/V, Confusion Home Medications ?Medication ?Instructions ?Recorded ?Confirmed ?Type alprazolam 1 mg tablet (Xanax) 1 mg PO DAILY PRN Anxiety 09/14/20 10/02/24 History atorvastatin 40 mg tablet (Lipitor) 40 mg PO DAILY 09/14/20 10/02/24 History calcium phosphate,dibasic 77 50,000 tablet PO [id number] 09/14/20 10/02/24 History mg-vitamin D3 400 unit tablet carvedilol 3.125 mg tablet (Coreg) 3.125 mg PO BID 09/14/20 10/02/24 History clopidogrel 75 mg tablet (Plavix) 75 mg PO DAILY 09/14/20 10/02/24 History hydrocodone 10 mg-acetaminophen 1 tablet PO Q6-8H PRN Pain 09/14/20 10/02/24 History 325 mg tablet levothyroxine 88 mcg tablet 88 mcg PO DAILY 09/14/20 10/02/24 History (Synthroid) lisinopril 10 mg tablet (Zestril) 10 mg PO DAILY 09/14/20 10/02/24 History albuterol sulfate 90 mcg/actuation 2 puff inhalation QID PRN 05/03/21 10/02/24 History aerosol inhaler Shortness Of Breath nitroglycerin 0.4 mg sublingual 0.4 mg sublingual Q5-15M PRN Chest 05/03/21 10/02/24 History tablet Pain umeclidinium 62.5 mcg/actuation 1 inh inhalation DAILY 05/03/21 10/02/24 History blister powder for inhalation (Incruse Ellipta) aspirin 81 mg chewable tablet 81 mg PO DAILY 07/28/22 10/02/24 History pantoprazole 40 mg tablet,delayed 20 mg PO QAM 08/20/24 10/02/24 History release Patient hx anesthesia problems: none Family hx anesthesia problems: none Results Review: All pre-operative results and documents have been reviewed as part of the pre- operative evaluation. [facility] Past Medical History Medical History Non-cardiac chest pain Gastroesophageal reflux disease Chronic obstructive pulmonary disease ST elevation myocardial infarction (STEMI) (07/2012) Restless leg syndrome Hepatitis C virus infection resolved after antiviral drug therapy Bladder cancer Continuous tobacco abuse Coronary artery disease Hypothyroidism Essential hypertension Hyperlipidemia Anxiety and depression Surgical History Surgical History History of cystoscopy Abnormal cystoscopy x8 Right eye trauma History of cardiac catheterization (08/01/12) Aspiration thrombectomy, PTCA, stent x2 in overlapping fashion in major diagonal branch. Per Dr. Gresham. Family History Family History Mother Acute myocardial infarction Leukemia Father Colon cancer Sibling Heart problem Social History Social History Social History: Surrogate medical decision maker: Jodee abdirashid, spouse. Code status: Full code. Smoking packs per day: 1 Smoking cigarettes per day: 20.0 Years smoked: 30 Smoking pack-years: 30.00 Smoking status: Former smoker Tobacco type: cigarettes, pipe and cigars Second hand tobacco smoke exposure: No Smoking end date: 03/12/94 Additional smoking assessment comments: QUIT GIGARRETTES 2002, SMOKES 2 CIGARS/DAY & PIPE WHEN OUT OF CIGARS Alcohol intake: current Drinks per week: 2 Alcohol use details: BEER Substance use: current Substance use type: marijuana Other substance usage details: 3 X WK Last use: 10/16/23 Do You Feel Safe in your Home?: Yes Lack of Transportation: No Lack of Food: Never True Current Housing: I Have Housing Concerned About Future Housing: No Difficulty Paying Gas/Electric Bills: No Difficulty Paying for Meds: No Currently Unemployed: No Education: High School Diploma/GED Difficulty w/ Childcare or Family Care: No Living arrangements: with family Additional living arrangements comments: Spiritual care concerns: No Anes - Eval Final PreProcedure Day of Procedure 10/02/24 08:55 Patient weight: normal Lungs: normal air movement Airway: Mallampati scale class II Neurological: alert and oriented Last oral intake: >/= 8 hours ASA classification: III Emergent: no Anesthetic plan: proceed Anesthesia type and monitoring: general LMA and standard monitoring Results Review: All pre-operative results and documents have been reviewed as part of the pre- operative evaluation. HTN, hyperlipidemia, active smoker cigars and cannibis, hx PTCA 2013 x 2. He sees cardio yearly. Recent ER visit for CP deemed noncardiac (bronchitis and mucus plugging). Notes reviewed as pt left ER on his own. Informed Consent: The patient's anesthetic plan and its attendant risks and benefits were discussed with the patient/family/POA. Questions were solicited and answers provided to the satisfaction of the patient/family/POA.
--- NOTE | 2024-10-02 09:06 | WPDHPUPDATE1 ---
History and Physical Update Update Date/Time: 10/02/24 09:06 History and Physical has been reviewed, including an updated exam of the patient. There are NO changes in the patient's condition. Risks, benefits, and alternatives have been discussed and questions answered. Patient agrees to proceed with procedure.
[2024-10-02] MEDS: ceFAZolin 2 GM in SODIUM CHLORIDE 0.9% IV 50 ML 100 ML IVPB (09:09)
[2024-10-02] MEDS: MITOMYCIN 28 MG URETHRAL (09:28)
--- NOTE | 2024-10-02 09:34 | W.PM.PROC2 ---
Procedure Note - Detailed Date of Procedure 10/02/24 Pre-op Diagnosis Right renal pelvic ca. Post-op Diagnosis Same Procedure Performed Patient is brought to the operative suite where he was prepped and draped in routine sterile fashion while in dorsal lithotomy position after the uneventful induction of a general LMA anesthetic. A 19F rigid cystoscope was placed in her bladder. The bladder was carefully inspected. Mucosa is normal without hyperemia. There was no intravesical neoplasm. 0.035 in glidewire was advanced in the right renal pelvis and a ureteral catheter was advanced over the guidewire. To obtain a determination of the volume of the right renal pelvis I carefully performed 3 separate retrograde pyelograms and took an average volume to fill without overfilling/extravasation. Between each pyelogram contrast was allowed to drain thoroughly. The median volume of her renal pelvis was calculated at 7ml. After appropriate reconstitution of the Jelmyto in ice retrograde injection was undertaken through the same ureteral catheter positioned at the UPJ. A total of 7mL (28mg) of Jelmyto was instilled in the renal pelvis without incident. The volume of Jelmyto wasted was 13mL (52 mg). The ureteral catheter was allowed to stand for 60 seconds and then removed with ease. Because the patient has no history of ureteral stricture I opted not to place a ureteral stent. She tolerated the procedure well was taken to the recovery room in good condition. Surgeon Vlad Gilliam MD Anesthesia General Description of Procedure Patient is brought to the operative suite where he was prepped and draped in routine sterile fashion while in dorsal lithotomy position after the uneventful induction of a general LMA anesthetic. A 19F rigid cystoscope was placed in her bladder. The bladder was carefully inspected. Mucosa is normal without hyperemia. There was no intravesical neoplasm. 0.035 in glidewire was advanced in the right renal pelvis and a ureteral catheter was advanced over the guidewire. To obtain a determination of the volume of the right renal pelvis I carefully performed 3 separate retrograde pyelograms and took an average volume to fill without overfilling/extravasation. Between each pyelogram contrast was allowed to drain thoroughly. The median volume of her renal pelvis was calculated at 7ml. After appropriate reconstitution of the Jelmyto in ice retrograde injection was undertaken through the same ureteral catheter positioned at the UPJ. A total of 7mL (28mg) of Jelmyto was instilled in the renal pelvis without incident. The volume of Jelmyto wasted was 13mL (52 mg). The ureteral catheter was allowed to stand for 60 seconds and then removed with ease. Because the patient has no history of ureteral stricture I opted not to place a ureteral stent. She tolerated the procedure well was taken to the recovery room in good condition. Drains No Pathology None sent Complications No immediate complications
== END 2024-10-02 11:32 | disposition home or self-care (01) ==
PROVIDERS: PCP Emergency Medicine; Visit Provider Urology
PROC: (CPT 52352; principal; 2024-10-02 11:30)
DX: C65.1 Malignant neoplasm of right renal pelvis (principal); E03.9 Hypothyroidism, unspecified; I10 Essential (primary) hypertension; E78.5 Hyperlipidemia, unspecified; K21.9 Gastro-esophageal reflux disease without esophagitis; J44.9 Chronic obstructive pulmonary disease, unspecified; I25.2 Old myocardial infarction; G25.81 Restless legs syndrome; I25.10 Atherosclerotic heart disease of native coronary artery without angina pectoris; F41.8 Other specified anxiety disorders; F17.290 Nicotine dependence, other tobacco product, uncomplicated; F12.90 Cannabis use, unspecified, uncomplicated; Z79.02 Long term (current) use of antithrombotics/antiplatelets; Z79.891 Long term (current) use of opiate analgesic; Z79.51 Long term (current) use of inhaled steroids; Z79.82 Long term (current) use of aspirin; Z98.61 Coronary angioplasty status; Z80.6 Family history of leukemia; Z80.0 Family history of malignant neoplasm of digestive organs; Z82.49 Family history of ischemic heart disease and other diseases of the circulatory system
CPT/HCPCS: C9789; 74420; J0690; A9270; C1758; C1769; J1100; J2405; J2704; J7120; J9281; Q9966

== ENCOUNTER 2024-10-09 00:18 | Day surgery (SDC) | payer MEDICARE, MEDICAID, SELFPAY ==
[2024-09-23 11:03] VITALS: BMI 22.8
--- NOTE | 2024-09-23 11:15 | PC.NURSE ---
Report to the Outpatient Waiting Room, entrance under the green pavilion located off [facility], at time ____1000am___ on date _10/09/24 . Planned Procedure Time: _1200pm .? Time changes happen often and if your time is changed the preop area will call you the afternoon before. - You and your visitor will be asked to self-screen and do not enter if you have any COVID symptoms. Please call surgeon if you need to reschedule. - A mask is optional within the hospital at this time. Patients may have clear liquids (water, carbonated beverages, clear teas, apple juice) until 3 hours prior to surgery with a maximum of 20 ounces. - No food from midnight until time of surgery and no smoking, or chewing tobacco (or any form of nicotine). No chewing gum, candy or mints. (0900am) . Take only the following medications with a SIP of water on the morning of surgery: Coreg/carvedilol, Levothyroxine, Ellipta Inhaler, Xanax as needed, Hydrocodone as needed DO NOT STOP ANY OF YOUR OTHER PRESCRIPTION MEDICATIONS PRIOR TO SURGERY EXCEPT THE FOLLOWING Hold all vitamins and supplements for 3 days per anesthesiologist.Date to take last dose is 10/05/24 Medications to discontinue per physician wife states that pt is to HOLD Aspirin and Plavix for 7days prior per Date to take last dose__09/30/24 Please no make-up, nail emirati, hairspray, perfume, deodorant, or body powder the day of surgery.? No jewelry (including any body piercings) or valuables the day of surgery, leave them at home.? Please take a shower or bath the night before, or the morning of, surgery with an antibacterial soap.? Wear comfortable, loose fitting clothing.? Children are encouraged to wear pajamas. - Jewelry must be removed prior to entering the operating room.? Rings and piercings that are not removed may be cut off. - The hospital will not accept responsibility for valuables.? - Please leave all valuables, including medications, at home the day of surgery. If you are going home after surgery, a licensed hearse driver must drive you home.? - NO public transportation without another adult if you receive anesthesia. - We recommend that an adult stay with you for 24 hours following discharge. - We also recommend that you do not drive, make important decision, drink alcoholic beverages, or take any drugs that were not prescribed by your health care provider for at least 24 hours after your discharge time. Follow any additional instructions given to you from your surgeon. Telephone instructions given to __Wife Raven and asked if any additional questions and then verbalized understanding. Patient advised to call surgeon office or pre surgery nurse liaison [phone] if any additional questions.
--- NOTE | 2024-10-02 13:59 | P.HP_ITS ---
History of Present Illness History of Present Illness Consent: Risks, benefits, and alternatives have been discussed and questions answered. Patient agrees to proceed with procedure. 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 Most recently, August 28, he had regrowth a papillary neoplasm in the right mid and lower pole infundibulum. After laser ablation and extensive discussion he elects for Jelmytol installation. He is aware the risk including, but not limited to, recurrent neoplasm with need for further treatment, ureteral stricture, hematuria. This will be his 2nd instillation. Review of Systems Review of Systems: All systems reviewed & are unremarkable except as noted in HPI and below PMFSH Past Medical History Medical History Non-cardiac chest pain Gastroesophageal reflux disease Chronic obstructive pulmonary disease ST elevation myocardial infarction (STEMI) (07/2012) Restless leg syndrome Hepatitis C virus infection resolved after antiviral drug therapy Bladder cancer Continuous tobacco abuse Coronary artery disease Hypothyroidism Essential hypertension Hyperlipidemia Anxiety and depression Surgical History Surgical History History of cystoscopy Abnormal cystoscopy x8 Right eye trauma History of cardiac catheterization (08/01/12) Aspiration thrombectomy, PTCA, stent x2 in overlapping fashion in major diagonal branch. Per Dr. Gresham. Family History Family History Mother Acute myocardial infarction Leukemia Father Colon cancer Sibling Heart problem Social History Social History Social History: Surrogate medical decision maker: Jodee Álvarez, spouse. Code status: Full code. Smoking packs per day: 1 Smoking cigarettes per day: 20.0 Years smoked: 30 Smoking pack-years: 30.00 Smoking status: Former smoker Tobacco type: cigarettes, pipe and cigars Second hand tobacco smoke exposure: No Smoking end date: 03/12/94 Additional smoking assessment comments: QUIT GIGARRETTES 2002, SMOKES 2 CIGARS/DAY & PIPE WHEN OUT OF CIGARS Alcohol intake: current Drinks per week: 2 Alcohol use details: BEER Substance use: current Substance use type: marijuana Other substance usage details: 3 X WK Last use: 12/25/22 Do You Feel Safe in your Home?: Yes Lack of Transportation: No Lack of Food: Never True Current Housing: I Have Housing Concerned About Future Housing: No Difficulty Paying Gas/Electric Bills: No Difficulty Paying for Meds: No Currently Unemployed: No Education: High School Diploma/GED Difficulty w/ Childcare or Family Care: No Living arrangements: with family Additional living arrangements comments: Spiritual care concerns: No Meds Home Medications and Allergies Home Medications ?Medication ?Instructions ?Recorded ?Confirmed ?Type alprazolam 1 mg tablet (Xanax) 1 mg PO DAILY PRN Anxiety 09/14/20 10/02/24 History atorvastatin 40 mg tablet (Lipitor) 40 mg PO DAILY 09/14/20 10/02/24 History calcium phosphate,dibasic 77 50,000 tablet PO [id number] 09/14/20 10/02/24 History mg-vitamin D3 400 unit tablet carvedilol 3.125 mg tablet (Coreg) 3.125 mg PO BID 09/14/20 10/02/24 History clopidogrel 75 mg tablet (Plavix) 75 mg PO DAILY 09/14/20 10/02/24 History hydrocodone 10 mg-acetaminophen 1 tablet PO Q6-8H PRN Pain 09/14/20 10/02/24 History 325 mg tablet levothyroxine 88 mcg tablet 88 mcg PO DAILY 09/14/20 10/02/24 History (Synthroid) lisinopril 10 mg tablet (Zestril) 10 mg PO DAILY 09/14/20 10/02/24 History albuterol sulfate 90 mcg/actuation 2 puff inhalation QID PRN 05/03/21 10/02/24 History aerosol inhaler Shortness Of Breath nitroglycerin 0.4 mg sublingual 0.4 mg sublingual Q5-15M PRN Chest 05/03/21 10/02/24 History tablet Pain umeclidinium 62.5 mcg/actuation 1 inh inhalation DAILY 05/03/21 10/02/24 History blister powder for inhalation (Incruse Ellipta) aspirin 81 mg chewable tablet 81 mg PO DAILY 07/28/22 10/02/24 History pantoprazole 40 mg tablet,delayed 20 mg PO QAM 08/20/24 10/02/24 History release Allergies Allergy/AdvReac Type Severity Reaction Status Date / Time propoxyphene Allergy Intermediate Hives, Verified 10/02/24 08:33 N/V, Confusion Exam Const: General: no acute distress Resp: Effort & Inspection: normal respiratory effort GI: Inspection: non-distended GI Palp: No abdominal tenderness and No Guarding due to palpation present (GI) Auscultation: normal bowel sounds Assessment and Plan Assessment and plan (1) Cancer of right renal pelvis: Code(s): C65.1 - Malignant neoplasm of right renal pelvis Status: Acute Assessment and Plan: * Cystoscopy, right RPG, right Jelmyto instillation.
--- NOTE | 2024-10-02 14:02 | PM.HPGS ---
History of Present Illness History of Present Illness Consent: Risks, benefits, and alternatives have been discussed and questions answered. Patient agrees to proceed with procedure. Chief complaint: bladder CA Narrative: Bhanu Álvarez is a 69 year old male [facility] Past Medical History Medical History Non-cardiac chest pain Gastroesophageal reflux disease Chronic obstructive pulmonary disease ST elevation myocardial infarction (STEMI) (07/2012) Restless leg syndrome Hepatitis C virus infection resolved after antiviral drug therapy Bladder cancer Continuous tobacco abuse Coronary artery disease Hypothyroidism Essential hypertension Hyperlipidemia Anxiety and depression Surgical History Surgical History History of cystoscopy Abnormal cystoscopy x8 Right eye trauma History of cardiac catheterization (08/01/12) Aspiration thrombectomy, PTCA, stent x2 in overlapping fashion in major diagonal branch. Per Dr. Gresham. Family History Family History Mother Acute myocardial infarction Leukemia Father Colon cancer Sibling Heart problem Social History Social History Social History: Surrogate medical decision maker: Jodee Álvarez, spouse. Code status: Full code. Smoking packs per day: 1 Smoking cigarettes per day: 20.0 Years smoked: 30 Smoking pack-years: 30.00 Smoking status: Former smoker Tobacco type: cigarettes, pipe and cigars Second hand tobacco smoke exposure: Yes Smoking end date: 03/12/94 Additional smoking assessment comments: still smokes cigars and pipes no inhale Alcohol intake: current Drinks per week: 2 Alcohol use details: BEER Substance use: current Substance use type: marijuana Other substance usage details: 3 x weekly smokes it Last use: 12/25/22 Do You Feel Safe in your Home?: Yes Lack of Transportation: No Lack of Food: Never True Current Housing: I Have Housing Concerned About Future Housing: No Difficulty Paying Gas/Electric Bills: No Difficulty Paying for Meds: No Currently Unemployed: No Education: High School Diploma/GED Difficulty w/ Childcare or Family Care: No Living arrangements: with family Additional living arrangements comments: Raven Spiritual care concerns: No Meds Home Medications and Allergies Home Medications ?Medication ?Instructions ?Recorded ?Confirmed ?Type alprazolam 1 mg tablet (Xanax) 1 mg PO DAILY PRN Anxiety 09/14/20 10/08/24 History atorvastatin 40 mg tablet (Lipitor) 40 mg PO DAILY 09/14/20 10/08/24 History calcium phosphate,dibasic 77 50,000 tablet PO [id number] 09/14/20 10/08/24 History mg-vitamin D3 400 unit tablet carvedilol 3.125 mg tablet (Coreg) 3.125 mg PO BID 09/14/20 10/08/24 History clopidogrel 75 mg tablet (Plavix) 75 mg PO DAILY 09/14/20 10/08/24 History hydrocodone 10 mg-acetaminophen 1 tablet PO Q6-8H PRN Pain 09/14/20 10/08/24 History 325 mg tablet levothyroxine 88 mcg tablet 88 mcg PO DAILY 09/14/20 10/08/24 History (Synthroid) lisinopril 10 mg tablet (Zestril) 10 mg PO DAILY 09/14/20 10/08/24 History albuterol sulfate 90 mcg/actuation 2 puff inhalation QID PRN 05/03/21 10/08/24 History aerosol inhaler Shortness Of Breath nitroglycerin 0.4 mg sublingual 0.4 mg sublingual Q5-15M PRN Chest 05/03/21 10/08/24 History tablet Pain umeclidinium 62.5 mcg/actuation 1 inh inhalation DAILY 05/03/21 10/08/24 History blister powder for inhalation (Incruse Ellipta) aspirin 81 mg chewable tablet 81 mg PO DAILY 07/28/22 10/08/24 History pantoprazole 40 mg tablet,delayed 20 mg PO QAM 08/20/24 10/08/24 History release Allergies Allergy/AdvReac Type Severity Reaction Status Date / Time propoxyphene Allergy Intermediate Hives, Verified 10/08/24 09:26 N/V, Confusion
[2024-10-09] VITALS (7 sets, daily range): BP systolic 119–144; BP diastolic 61–79; PULSE 50–75; RESP 13–20; TEMP 36.3–36.4; O2SAT 99–100; BMI 24.5
--- NOTE | ~2024-10-09 | XR_ITS ---
XR retrograde pyelogram RT Indication: Right pyelogram. TECHNIQUE: Fluoroscopy used during right pyelogram performed by [Vlad Gilliam MD] on 2014. No fluoroscopic images captured. FINDINGS: Correlate with procedure note. IMPRESSION: Fluoroscopy used during right pyelogram. No images submitted for interpretation. Reviewed, dictated and finalized at location [] IMPRESSION: Fluoroscopy used during right pyelogram. No images submitted for in terpretation.
--- OUTSIDE RECORDS SUMMARY | 2024-10-09 00:21 | XMS_ITS | Encounter Summary ---
Author Organization [facility] Address [address] [place] [address] Phone Care Team Providers Care Pay Agent Name Role Phone Iker Feldman Primary Care Provider [phone] Juan Gresham MD Unavailable Hemant Delgado MD Unavailable Encounter Details Date Type Department Care Team (Late st Contact Info) Description 04/26/2021 Transcribe Orders [facility] Preop/Pacu II [address] [place] [address] Hemant Delgado MD [address] [address] Pre-op testing (Primary Dx) Social History Tobacco [...] COVID-19? 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 documented as of this encounter Plan of Treatment Not on file documented as of this encounter Visit Diagnoses Diagnosis Pre-op testing- Primary Preoperative examination, unspecified documented in this encounter Care Teams Pay Agent Relationship Specialty Start Date End Date Iker Feldman [address] [place] [address] PCP - General Family Medicine 12/05/17 Juan Gresham MD [address] [facility] [address] [place] [id number] Cardiovascular Disease - Cardiology 12/05/17 Hemant Delgado MD #2 [facility] [address] [place] [address] Consulting Physician Urology 01/19/22 documented as of this encounter
--- OUTSIDE RECORDS SUMMARY | 2024-10-09 00:21 | XMS_ITS | Encounter Summary ---
Author Organization [facility] Address [address] [place] [address] Phone Care Team Providers Care Grocery Associate Name Role Phone Iker Feldman Primary Care Provider [phone] Juan Gresham MD Unavailable Hemant Delgado MD Unavailable Encounter Details Date Type Department Care Team (Late st Contact Info) Description 03/29/2021 Transcribe Orders [facility] Preop/Pacu II 1 [place] [address] Hemant Delgado MD #[address] [address] Pre-op testing (Primary Dx) Social History Tobacco [...] COVID-19? 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 Other NASOPHARYNGEAL STRUCTURE / Unknown Non-Phlebotomy Collection / Unknown 04/25/2021 7:54 AM PERENNIAL HOUSE MANAGER 04/25/2021 8:44 AM PERENNIAL HOUSE MANAGER Narrative [facility] - 04/25/2021 6:50 PM PERENNIAL HOUSE MANAGER Authorized Fact Sheets about this test for providers and patients are available at: https://www.fda.gov/medical-devices/rgwzgjvow-wdqytihfdv-lgqysxd-devices/emergen cy-us e-authorizations us Hemant Delgado MD MICROBIOLOGY - GENERAL ORDERABLE S Final Result [facility] [address] [place] [address], documented in this encounter Visit Diagnoses Diagnosis Pre-op testing- Primary Preoperative examination, unspecified documented in this encounter Care Teams Grocery Associate Relationship Specialty Start Date End Date Iker Feldman [address] [place] [address] PCP - General Family Medicine 12/05/17 Juan Gresham MD [address] [facility] [place] [address] [place] [address] Cardiovascular Disease - Cardiology 12/05/17 Hemant Delgaod MD #2 [facility], [address] [address] Consulting Physician Urology 01/19/22 documented as of this encounter
--- OUTSIDE RECORDS SUMMARY | 2024-10-09 00:21 | XMS_ITS | Encounter Summary ---
Author Organization [facility] Address [address] [place] [address] Phone Care Team Providers Care Electrician Deck Name Role Phone Gaston Iker Primary Care Provider [phone] Juan Gresham MD Unavailable Hemant Delgado MD Unavailable Reason for Referral * Radiology Services (Routine) - Closed Specialty Diagnoses / Procedures Referred By Contac t Referred To Contact Radiology Diagnoses Pre-op testing Procedures EKG 12 LEAD Laurent Abebe APRN, CRNA #1 [place] [address] Phone: tel: fax: Referral ID Status Reason Start Date Expiration Date Visits Re quested Visits Authorized [id number] Closed 03/29/2021 1 1 ING ALLEY OPERATOR Encounter Details Date Type Department Care Team (Late st Contact Info) Description 03/29/2021 Transcribe Orders [facility] Preop/Pacu II 1 [place] [id number] Laurent Abebe APRN, CRNA #1 [place] [address] Pre-op testing (Primary Dx) Social History Tobacco [...] COVID-19? No / Unsure 03/29/2021 2:12 PM BOWLING ALLEY OPERATOR documented as of this encounter Plan of Treatment Not on file documented as of this encounter Results * HEMOGLOBIN & HEMATOCRIT (H&H) (04/25/2021 7:56 AM BOWLING ALLEY OPERATOR) HEMOGLOBIN (HGB) 14.7 13.0 - 16.5 g/dL 04/25/2021 8:12 AM BOWLING ALLEY OPERATOR [facility] HEMATOCR[facility] (HCT) 44.9 38.0 - 50.0 % 04/25/2021 8:12 AM BOWLING ALLEY OPERATOR [facility] Blood Venipuncture / Unknown 04/25/2021 7:56 AM BOWLING ALLEY OPERATOR 04/25/2021 8:07 AM BOWLING ALLEY OPERATOR us Laurent Nathanatzmarek RECORD CLERK, SUPERVISOR METER SHOP HEMATOLOGY ORDERAB LES Final Result [facility] [address] [place] [address] * (ABNORMAL) BASIC METABOLIC PANEL W/ CALCIUM TOTAL (04/25/2021 7:56 AM BOWLING ALLEY OPERATOR) SODIUM 133(L) 136 - 144 mmol/L 04/25/2021 8:32 AM BOWLING ALLEY OPERATOR [facility] POTASSIUM 4.6 3.5 - 5.1 mmol/L 04/25/2021 8:32 AM [facility] CHLORIDE 99(L) 100 - 110 mmol/L 04/25/2021 8:32 AM [facility] CO2, VENOUS 27 22 - 32 mmol/L 04/25/2021 8:32 AM [facility] ANION GAP 11.6 8.0 - 20.0 mmol/L 04/25/2021 8:32 AM [facility] GLUCOSE 111(H) 70 - 99 mg/dL 04/25/2021 8:32 AM BOWLING ALLEY OPERATOR [facility] BUN 11 8 - 23 mg/dL 04/25/2021 8:32 AM [facility] CREATININE, BLOOD 0.90 0.80 - 1.30 mg/dL 04/25/2021 8:32 AM [facility] BUN/CREATININE RATIO 12 12 - 20 ratio 04/25/2021 8:32 AM [facility] CALCIUM 9.4 8.9 - 10.3 mg/dL 04/25/2021 8:32 AM [facility] GFR, EST. NONAFRICAN >60 >=60 04/25/2021 8:32 AM [facility] GFR, EST. >60 >=60 04/25/2021 8:32 AM [facility] Comment: Creatinine Clearance is the preferred criteria for selecting drug dose adjustments in renally impaired patients. The GFR is provided as additional pertinent clinical information. GFR is reported in mL/min/1.73 sq m. IS THE PATIENT REQUIRED TO BE FASTING? No 04/25/2021 8:32 AM [facility] Blood Venipuncture / Unknown 04/25/2021 7:56 AM BOWLING ALLEY OPERATOR 04/25/2021 8:07 AM BOWLING ALLEY OPERATOR us Laurent Etelvina Purchatzke RECORD CLERK, SUPERVISOR METER SHOP CHEMISTRY ORDERABL ES Final Result [facility] [address] [place] [address] * EKG 12 LEAD (04/25/2021 7:43 AM BOWLING ALLEY OPERATOR) Ventricular Rate BPM EXTERNAL EKG Atrial Rate BPM EXTERNAL EKG P-R Interval 194 ms EXTERNAL EKG QRS Duration 100 ms EXTERNAL EKG Q-T Duration 472 ms EXTERNAL EKG QTC CALCULATION 427 ms EXTERNAL EKG P [place] 79 degrees EXTERNAL EKG R [place] 49 degrees EXTERNAL EKG T [place] 67 degrees EXTERNAL EKG 04/25/2021 7:43 AM BOWLING ALLEY OPERATOR Impressions EXTERNAL EKG - 04/25/2021 9:08 AM BOWLING ALLEY OPERATOR Sinus bradycardia Abnormal R wave progression [...] significant changes noted Confirmed by Lauren Mahmood [id number] on 04/25/2021 9:08:06 AM us Laurent Abebe RECORD CLERK, SUPERVISOR METER SHOP IMG ECG ORDERABLES Final Result EXTERNAL EKG documented in this encounter Visit Diagnoses Diagnosis Pre-op testing- Primary Preoperative examination, unspecified Pre-op testing Preoperative examination, unspecified documented in this encounter Care Teams Electrician Deck Relationship Specialty Start Date End Date Iker Feldman [address] [address] PCP - General Family Medicine 12/05/17 Juan Gersham MD [address] [facility] [address] [place] [address] Cardiovascular Disease - Cardiology 12/05/17 Hemant Delgado MD #[address] [address] Consulting Physician Urology 01/19/22 documented as of this encounter
--- OUTSIDE RECORDS SUMMARY | 2024-10-09 00:22 | XMS_ITS | Encounter Summary ---
Author Organization [facility] Address [address] [place] [address] Phone Care Team Providers Care Commercial Relief Driver Name Role Phone Iker Feldman Primary Care Provider [phone] Juan Gresham MD Unavailable Hemant Delgado MD Unavailable Encounter Details Date Type Department Care Team (Late st Contact Info) Description 03/29/2021 Transcribe Orders [facility] Preop/Pacu II 1 [place] [id number] Hemant Delgado MD #[address] [address] Social History Tobacco Use Types Packs/Day Years [...] COVID-19? 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 documented as of this encounter Plan of Treatment Not on file documented as of this encounter Visit Diagnoses Not on filedocumented in this encounter Care Teams Commercial Relief Driver Relationship Specialty Start Date End Date Iker Feldman [address] [facility] [place] [address] PCP - General Family Medicine 12/05/17 Juan Gresham MD [address] [facility] [address] [place] [address] Cardiovascular Disease - Cardiology 12/05/17 Hemant Delgado MD #2 [facility] [address] [place] [address] Consulting Physician Urology 01/19/22 documented as of this encounter
--- OUTSIDE RECORDS SUMMARY | 2024-10-09 00:22 | XMS_ITS | Clinical Summary ---
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 Active albuterol HFA (PROVENTIL HFA,VENTOLIN [...] needed for pain Active cholecalciferol (VITAMIN D-3) 17592 unit tablet Take 1 tablet (50,000 Units total) by mouth once a week Active carvediloL (COREG) 3.125 mg tabletIndications :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 of 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 angina pectoris Take 1 tablet (3.125 mg total) by mouth 2 (two) times a day with meals 180 tablet 3 4 Active clopidogreL (PLAVIX) 75 mg tabletIndications :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 of 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 angina pectoris Take 1 tablet (75 mg total) by mouth daily 90 tablet 3 4 Active atorvastatin (LIPITOR) 40 mg tabletIndications :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 of 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 angina pectoris Take 1 tablet (40 mg total) by mouth daily 90 tablet 3 4 Active nitroglycerin (NITROSTAT) 0.4 mg SL tabletIndications :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 of 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 angina pectoris Place 1 tablet (0.4 mg total) under the tongue every 5 (five) minutes as needed for chest pain Up to 3 doses 25 tablet 4 Active lisinopriL (PRINIVIL,ZESTRIL ) 10 mg tabletIndications :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 of 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 angina pectoris TAKE ONE TABLET BY MOUTH DAILY 90 tablet 2 4 Active Active Problems Problem Noted Date Diagnosed Date Atherosclerosis of coronary artery 12/12/2013 Overview (06/15/2016): Coronary atherosclerosis Encounters Date Type Department Care Team Description 08/19/2024 Telephone [facility] Cardiology [address] [place] [address] Perri Lux NP preop form [...] on file Legal 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
--- OUTSIDE RECORDS SUMMARY | 2024-10-09 00:22 | XMS_ITS | Clinical Summary ---
Author Organization [facility] Address [address] [place] [address] Phone Care Team Providers Care Sanding Machine Tender Automatic Name Role Phone Iker Feldman Primary Care Provider [phone] Juan Gresham MD Unavailable Hemant Delgado MD [...] minutes as needed. Active ergocalciferol (VITAMIN D) 24926 UNIT Capsule Take 1 Capsule by mouth. [...] Comments Blood Pressure 138/74 01/19/2022 8:53 AM ACTIVITIES DIRECTOR SCOUTING Pulse 54 01/19/2022 8:53 AM ACTIVITIES DIRECTOR SCOUTING Temperature 36.4 C (97.6 F) 01/19/2022 8:53 AM ACTIVITIES DIRECTOR SCOUTING Respiratory Rate 18 01/19/2022 8:53 AM ACTIVITIES DIRECTOR SCOUTING Oxygen Saturation 98% 01/19/2022 8:53 AM ACTIVITIES DIRECTOR SCOUTING Inhaled Oxygen Concentration - - Weight 72.2 kg (159 lb 3.2 oz) 01/19/2022 8:53 A M ACTIVITIES DIRECTOR SCOUTING Height 174 cm (5' 8.5) 09/16/2021 11:49 [...] this topic Medical Devices Implanted Type Area Production Packager Device Identifier Shelf Expiration Date Model / Serial / Lot Stent Ureteral 6fr 2.1fr 26cm 2 Pigtail Curve 2 Durometer Taper Tip Loprfl Graduated Polaris Ultra - [id number] Implanted:Qty : 1 on 03/19/2018 by Viviana Junior MD at [facility] IMPLANT Right: Ureter [employer] 10/03/2020 [id number] 0 / [id number] 0 / [id number] Stent Ureteral 6fr 2.1fr 24cm 2 Pigtail Curve 2 Durometer Taper Tip Loprfl Graduated Polaris Ultra - [id number] Implanted:Qty : 1 on 04/29/2021 by Hemant Delgado MD at [facility] IMPLANT Left: Ureter [employer] 01/12/2024 [id number] 0 / [id number] 0 / [id number] Stent Ureteral 6fr 2.1fr 24cm 2 Pigtail Curve 2 Durometer Taper Tip Loprfl Graduated Polaris Ultra - [id number] Implanted:Qty : 1 on 05/20/2021 by Hemant Delgado MD at [facility] IMPLANT Left: Ureter [employer] 02/04/2024 [id number] 0 / [id number] 0 / [id number] Stent Ureteral 6fr 2.1fr 24cm 2 Pigtail Curve 2 Durometer Taper Tip Loprfl Graduated Polaris Ultra - [id number] Implanted:Qty : 1 on 05/20/2021 by Hemant Delgado MD at [facility] IMPLANT Right: Ureter [employer] 02/04/2024 [id number] 0 / [id number] 0 / [id number] Stent Ureteral 6fr 2.1fr 28cm 2 Pigtail Curve 2 Durometer Taper Tip Loprfl Graduated Polaris Ultra - [id number] Implanted:Qty : 1 on 09/09/2021 by Hemant Delgado MD at [facility] IMPLANT Right: Ureter [employer] 02/08/2024 [id number] 0 / [id number] 0 / [id number] Explanted Type Area Production Packager Device Identifier Shelf Expiration Date Model / Serial / Lot Stent Ureteral 6fr 2.1fr 24cm 2 Pigtail Curve 2 Durometer Taper Tip Loprfl Graduated [employer] Ultra - [id number] Implanted:Qty : 1 on 04/29/20[facility] Explanted:Qty : 1 on 05/20/2021 by [facility] IMPLANT Right: Ureter [employer] 01/12/2024 [id number] 0 / [id number] 0 / [id number] Procedures Procedure Name Priority Date/Time Associated Diagnosis [...] Documents on File Type Date Recorded Patient Dupligraph Operator Expl anation Other Advance Directive 09/21/2021 3:35 [...] Medical Clearance fo r surgery Care Teams Sanding Machine Tender Automatic Relationship Specialty Start Date End Date Feldman Iker [address] [place] [address] PCP - General Family Medicine 12/05/17 Juan Gresham MD [address] [facility] [address] [place] [address] Cardiovascular Disease - Cardiology 12/05/17 Hemant Delgado MD #2 [facility] [address] [place] [address] Consulting Physician Urology 01/19/22
--- OUTSIDE RECORDS SUMMARY | 2024-10-09 00:22 | XMS_ITS | Continuity of Care Document ---
Author Organization [facility] Address [address] [place] [place] [address] [place] [address] Phone Care Team Providers Care Mva Operator Name Role Phone Iker Feldman MD [...] Providers Copied on Encounter OFFICE/OUTPA TIENT VISIT, [facility], [address], [place], [place], [address], [place] tel:[phone] [facility] pain (chief complaint)anxie ty1 (chief complaint)anemi a1 (chief complaint)bladd er CA (chief complaint) AnemiaChronic pain syndromeMalign ant neoplasm of bladder, unspecifiedOth er insomnia 5 Gaston Pickett [address], [place], [place], [address] , [place]. tel:[phone] PREV VISIT, EST, 65 & OVER [facility], [address], [place], [place], [address], [place] tel:[phone] [facility] physical (chief complaint) Centrilobular emphysemaChron ic pain syndromeMalign ant neoplasm of bladder, unspecifiedHyp othyroidismMix ed hyperlipidemia Encounter for general adult medical exam w abnormal findingsCorona ry artery disease of [place] coronary artery w/o angina pectorisGERD without esophagitis 5 Gaston Pickett [address], [place], [place], [address] , [place]. tel:[phone] OFFICE/OUTPA TIENT VISIT, [facility], [address], [place], [place], [address], [place] tel:[phone] [facility] pain (chief complaint)anxie ty1 (chief complaint)COPD1 (chief complaint) Chronic pain syndromePrimar y insomniaCentri lobular emphysemaPerso nal history of nicotine dependenceMali gnant neoplasm of bladder, unspecified 5 Gaston Pickett [address], [place], [place], [address] , [place]. tel:[phone] OFFICE/OUTPA TIENT VISIT, [facility], [address], [place], [place], [address], [place] tel:[phone] [facility] pain (chief complaint)anxie ty1 (chief complaint) Chronic pain syndromePrimar y insomnia Jun-0 5 Gaston Dong. [address], [place], [place], [address] , [place]. tel:[phone] OFFICE/OUTPA TIENT VISIT, [facility], [address], [place], [place], [address], [place] tel:[phone] [facility] pain (chief complaint)anxie ty1 (chief complaint) Chronic pain syndromePrimar y insomnia 5 Gaston Dong. [address], [place], [place], [address] , [place]. tel:[phone] OFFICE/OUTPA TIENT VISIT, [facility], [address], [place], [place], [address], [place] tel:[phone] [facility] pain (chief complaint)anxie ty1 (chief complaint)COPD1 (chief complaint) Chronic pain syndromeCentri lobular emphysemaPrima ry insomnia 5 Gaston Dong. [address], [place], [place], [address] , [place]. tel:[phone] OFFICE/OUTPA TIENT VISIT, [facility], [address], [place], [place], [address], [place] tel:[phone] [facility] pain (chief complaint)anxie ty1 (chief complaint)thyro id1 (chief complaint) Chronic pain syndromePrimar y insomniaHypoth yroidism 5 Gaston Dong. [address], [place], [place], [address] , [place]. tel:[phone] OFFICE/OUTPA TIENT VISIT, [facility], [address], [place], [place], [address], [place] tel:[phone] [facility] pain (chief complaint)anxie ty1 (chief complaint) Chronic pain syndromePrimar y insomnia 4 Feldman Iker. [address], [place], [place], [address] , [place]. tel:[phone] OFFICE/OUTPA TIENT VISIT, [facility], [address], [place], [place], [address], [place] tel:[phone] [facility] pain (chief complaint)anxie ty1 (chief complaint)COPD1 (chief complaint) Chronic pain syndromePrimar y insomniaCentri lobular emphysema 4 Feldman Iker. [address], [place], [place], [address] , [place]. tel:[phone] OFFICE/OUTPA TIENT VISIT, [facility], [address], [place], [place], [address], [place] tel:[phone] [facility] pain (chief complaint)anxie ty1 (chief complaint) Chronic pain syndromePrimar y insomnia 4 Feldman Iker. [address], [place], [place], [address] , [place]. tel:[phone] OFFICE/OUTPA TIENT VISIT, [facility], [address], [place], [place], [address], [place] tel:[phone] [facility] pain (chief complaint)anxie ty1 (chief complaint) Chronic pain syndromePrimar y insomnia 4 Feldman Iker. [address], [place], [place], [address] , [place]. tel:[phone] OFFICE/OUTPA TIENT VISIT, [facility], [address], [place], [place], [address], [place] tel:[phone] [facility] pain (chief complaint)anxie ty1 (chief complaint)COPD1 (chief complaint) Centrilobular emphysemaChron ic pain syndromePrimar y insomnia 4 Feldman Iker. [address], [place], [place], [address] , [place]. tel:[phone] OFFICE/OUTPA TIENT VISIT, [facility], [address], [place], [place], [address], [place] tel:[phone] [facility] pain (chief complaint)anxie ty1 (chief complaint) Chronic pain syndromePrimar y insomnia 4 Gaston Dong. [address], [place], [place], [address] , [place]. tel:[phone] OFFICE/OUTPA TIENT VISIT, [facility], [address] [place], [place], [address], [place] tel:[phone] [facility] pain (chief complaint)anxie ty1 (chief complaint)COPD1 (chief complaint)bladd er Ca (chief complaint) Centrilobular emphysemaChron ic pain syndromePrimar y insomniaMalign ant neoplasm of bladder, unspecified 4 Gaston Dong. [address], [place], [place], [address] , [place]. tel:[phone] OFFICE/OUTPA TIENT VISIT, [facility], [address], [place], [place], [address], [place] tel:[phone] [facility] pain (chief complaint)anxie ty (chief complaint)thyro id1 (chief complaint)HLP (chief complaint) Chronic pain syndromeHypoth yroidismMixed hyperlipidemia Primary insomniaCentri lobular emphysema 4 Gaston Dong. [address], [place], [place], [address] , [place]. tel:[phone] PREV VISIT, EST, 65 & OVER [facility], [address], [place], [place], [address], [place] tel:[phone] [facility] physical (chief complaint) Encounter for general adult medical exam w abnormal findingsCentri lobular emphysemaChron ic pain syndromePrimar y insomniaHypoth yroidismMalign ant neoplasm of bladder, unspecifiedGER D w/o esophagitisCor onary artery disease of [place] coronary artery w/o angina pectoris 4 Feldman Iker. [address], [place], [place], [address] , [place]. tel:[phone] OFFICE/OUTPA TIENT VISIT, [facility], [address], [place], [place], [address], [place] tel:[phone] [facility] pain (chief complaint)anxie ty1 (chief complaint) Chronic pain syndromePrimar y insomnia May- 4 Feldman Iker. [address], [place], [place], [address] , [place]. tel:[phone] OFFICE/OUTPA TIENT VISIT, [facility], [address], [place], [place], [address], [place] tel:[phone] [facility] pain (chief complaint)anxie ty1 (chief complaint)COPD1 (chief complaint) Centrilobular emphysemaChron ic pain syndromePrimar y insomnia 4 Feldman Iker. [address], [place], [place], [address] , [place]. tel:[phone] OFFICE/OUTPA TIENT VISIT, [facility], [address], [place], [place], [address], [place] tel:[phone] [facility] pain (chief complaint)anxie y1 (chief complaint)hypot hyroidism1 (chief complaint) Hypothyroidism Chronic pain syndromePrimar y insomnia 4 Feldman Iker. [address], [place], [place], [address] , [place]. tel:[phone] OFFICE/OUTPA TIENT VISIT, [facility], [address], [place], [place], [address], [place] tel:[phone] [facility] pain (chief complaint)anxie ty1 (chief complaint) Chronic pain syndromePrimar y insomnia 3 Gaston Dong. [address], [place], [place], [address] , [place]. tel:[phone] OFFICE/OUTPA TIENT VISIT, [facility], [address], [place], [place], [address], [place] tel:[phone] [facility] pain (chief complaint)pain (chief complaint)anxie ty1 (chief complaint) Chronic pain syndromePrimar y insomnia Jan-3 0-202 3 Gaston Dong. [address], [place], [place], [address] , [place]. tel:[phone] OFFICE/OUTPA TIENT VISIT, [facility], [address], [place], [place], [address], [place] tel:[phone] [facility] pain (chief complaint)anxie ty1 (chief complaint) Chronic pain syndromePrimar y insomnia Nov-0 2- 3 Gaston Dong. [address], [place], [place], [address] , [place]. tel:[phone] OFFICE/OUTPA TIENT VISIT, [facility], [address], [place], [place], [address], [place] tel:[phone] [facility] pain (chief complaint)anxie ty1 (chief complaint)hypot hyroidism1 (chief complaint) Chronic pain syndromePrimar y insomniaHypoth yroidism Dec-0 4 3 Gaston oDng. [address], [place], [place], [address] , [place]. tel:[phone] OFFICE/OUTPA TIENT VISIT, [facility], [address], [place], [place], [address], [place] tel:[phone] [facility] pain (chief complaint)anxie ty1 (chief complaint) Chronic pain syndromePrimar y insomnia Nov-0 3 Gaston Dong. [address], [place], [place], [address] , [place]. tel:[phone] OFFICE/OUTPA TIENT VISIT, [facility], [address], [place], [place], [address], [place] tel:[phone] [facility] PAIN (chief complaint)anxie ty1 (chief complaint)bladd er CA1 (chief complaint) Chronic pain syndromePrimar y insomniaMalign ant neoplasm of bladder, unspecifiedAcq uired renal cystCentrilobu lar emphysema 3 Gaston Dong. [address], [place], [place], [address] , [place]. tel:[phone] OFFICE/OUTPA TIENT VISIT, [facility], [address], [place], [place], [address], [place] tel:[phone] [facility] pain (chief complaint)anxie ty1 (chief complaint)GERD1 (chief complaint) Cervantes's esophagus without dysplasiaChron ic pain syndromePrimar y insomnia 3 Gaston Dong. [address], [place], [place], [address] , [place]. tel:[phone] OFFICE/OUTPA TIENT VISIT, [facility], [address], [place], [place], [address], [place] tel:[phone] [facility] pain (chief complaint)anxie ty1 (chief complaint)hemae mesis1 (chief complaint)kidne y tumor1 (chief complaint) HematemesisChr onic pain syndromePrimar y insomniaMalign ant neoplasm of bladder, unspecified 3 Gaston Dong. [address], [place], [place], [address] , [place]. tel:[phone] OFFICE/OUTPA TIENT VISIT, [facility], [address], [place], [place], [address], [place] tel:[phone] [facility] hematemesis1 (chief complaint) HematemesisBar rett's esophagus without dysplasiaAther osclerotic heart disease of [place] coronary artery without angina pectoris 3 Gaston Dong. [address], [place], [place], [address] , [place]. tel:[phone] OFFICE/OUTPA TIENT VISIT, [facility], [address], [place], [place], [address], [place] tel:[phone] [facility] pain (chief complaint)insom nia1 (chief complaint) Chronic pain syndromePrimar y insomnia 3 Gaston Dong. [address], [place], [place], [address] , [place]. tel:[phone] PREV VISIT, EST, 65 & OVER [facility], [address], [place], [place], [address], [place] tel:[phone] [facility] physical (chief complaint) Encounter for general adult medical exam w abnormal findingsHypoth yroidismChroni c pain syndromeCentri lobular emphysemaEleva palomo prostate specific antigen [PSA]Asymptoma tic microscopic hematuriaMixed hyperlipidemia Cervantes's esophagus without dysplasiaPrima ry insomnia Jun- 3 Gaston Dong. [address], [place], [place], [address] , [place]. tel:[phone] OFFICE/OUTPA TIENT VISIT, [facility], [address], [place], [place], [address], [place] tel:[phone] [facility] pain (chief complaint)insom nia1 (chief complaint)HTN (chief complaint)thyro id1 (chief complaint)bladd er CA (chief complaint) Chronic pain syndromePrimar y insomniaHypoth yroidismEssent ial (primary) hypertensionMi xed hyperlipidemia Malignant neoplasm of bladder, unspecified 3 Gaston Dong. [address], [place], [place], [address] , [place]. tel:[phone] OFFICE/OUTPA TIENT VISIT, [facility], [address], [place], [place], [address], [place] tel:[phone] [facility] pain (chief complaint)insom nia1 (chief complaint)kidne y1 (chief complaint)COPD1 (chief complaint) Chronic pain syndromePrimar y insomniaOther specified disorder of kidneyCentrilo bular emphysema 3 Feldman Iker. [address], [place], [place], [address] , [place]. tel:[phone] OFFICE/OUTPA TIENT VISIT, [facility], [address], [place], [place], [address], [place] tel:[phone] [facility] pain (chief complaint)insom nia1 (chief complaint)tobac co1 (chief complaint)bladd er CA1 (chief complaint) Chronic pain syndromePrimar y insomniaMalign ant neoplasm of bladder, unspecifiedTob acco use 3 Gaston Dong. [address], [place], [place], [address] , [place]. tel:[phone] OFFICE/OUTPA TIENT VISIT, [facility], [address], [place], [place], [address], [place] tel:[phone] [facility] pain (chief complaint)insom nia1 (chief complaint) Chronic pain syndromePrimar y insomnia 2 Gaston Dong. [address], [place], [place], [address] , [place]. tel:[phone] OFFICE/OUTPA TIENT VISIT, [facility], [address], [place], [place], [address], [place] tel:[phone] [facility] pain (chief complaint)insom nia1 (chief complaint) Chronic pain syndromePrimar y insomnia 2 Feldman Iker. [address], [place], [place], [address] , [place]. tel:[phone] OFFICE/OUTPA TIENT VISIT, [facility], [address], [place], [place], [address], [place] tel:[phone] [facility] pain (chief complaint)insom nia1 (chief complaint)barre tt1 (chief complaint) Chronic pain syndromePrimar y insomniaBarret t's esophagus without dysplasiaMalig nant neoplasm of bladder, unspecified 2 Gaston Iker. [address], [place], [place], [address] , [place]. tel:[phone] OFFICE/OUTPA TIENT VISIT, [facility], [address] [place], [address], [place] tel:[phone] [facility] pain (chief complaint)insom nia1 (chief complaint)COPD1 (chief complaint)thyro id1 (chief complaint) Chronic pain syndromeBarret t's esophagus without dysplasiaPrima ry insomniaHypoth yroidismCentri lobular emphysema 2 Feldman Iker. [address], [place], [place], [address] , [place]. tel:[phone] OFFICE/OUTPA TIENT VISIT, [facility], [address] [place], [address], [place] tel:[phone] [facility] pain (chief complaint)insom nia1 (chief complaint)CAD (chief complaint) Coronary artery disease of [place] coronary artery w/o angina pectorisChroni c pain syndromePrimar y insomnia 2 Feldman Iker. [address], [place], [place], [address] , [place]. tel:[phone] OFFICE/OUTPA TIENT VISIT, [facility], [address], [place], [place], [address], [place] tel:[phone] [facility] pain (chief complaint)insom nia1 (chief complaint) Chronic pain syndromePrimar y insomnia 2 Feldman Iker. [address], [place], [place], [address] , [place]. tel:[phone] OFFICE/OUTPA TIENT VISIT, [facility], [address] [place], [address], [place] tel:[phone] [facility] pain (chief complaint)insom nia1 (chief complaint) Chronic pain syndromePrimar y insomnia 2 Feldman Iker. [address], [place], [place], [address] , [place]. tel:[phone] OFFICE/OUTPA TIENT VISIT, EST [facility], [address], [place], [place], [address], [place] tel:[phone] [facility] pain (chief complaint)insom nia1 (chief complaint)Sloan tt1 (chief complaint)renal CA (chief complaint) Polyp of colonBarrett's esophagus without dysplasiaInsom niaChronic pain syndromeCa of left kidney, except renal pelvis 2 Feldman Iker. [address], [place], [place], [address] , [place]. tel:[phone] OFFICE/OUTPA TIENT VISIT, EST [facility], [address], [place], [place], [address], [place] tel:[phone] [facility] pain (chief complaint)insom nia1 (chief complaint)vitam in D (chief complaint)colon polyp (chief complaint)emphy sema1 (chief complaint) Chronic pain syndromeInsomn iaVitamin D deficiencyPoly p of colonEmphysema 2 Gaston Iker. [address], [place], [place], [address] , [place]. tel:[phone] PREV VISIT, EST, 65 & OVER [facility], [address], [place], [place], [address], [place] tel:[phone] [facility] physical (chief complaint) Hyperlipidemia Chronic pain syndromeMalign ant neoplasm of bladder, unspecifiedBar rett's esophagus without dysplasiaEmphy semaFolate deficiencyHypo calcemiaHypoth yroidismInsomn iaEncounter for general adult medical exam w abnormal findings 2 Gaston Iker. [address], [place], [place], [address] , [place]. tel:[phone] OFFICE/OUTPA TIENT VISIT, EST [facility], [address], [place], [place], [address], [place] tel:[phone] [facility] pain (chief complaint)insom nia1 (chief complaint)bladd er tumor1 (chief complaint)thyro id1 (chief complaint)CAD1 (chief complaint) Chronic pain syndromeInsomn iaMalignant neoplasm of bladder, unspecifiedHyp erlipidemiaHyp othyroidism 2 Gaston Pickett [address], [place], [place], [address] , [place]. tel:[phone] OFFICE/OUTPA TIENT VISIT, [facility], [address] [place], [address], [place] tel:[phone] [facility] pain (chief complaint)bladd er CA (chief complaint)tobac co (chief complaint)insom nia1 (chief complaint)GERD1 (chief complaint) Chronic pain syndromeInsomn iaBarrett's esophagus without dysplasiaMalig nant neoplasm of bladder, unspecifiedTob acco use 2 Gaston Pickett [address], [place], [place], [address] , [place]. tel:[phone] OFFICE/OUTPA TIENT VISIT, [facility], [address], [place], [place], [address], [place] tel:[phone] [facility] pain (chief complaint)insom nia1 (chief complaint)tobac co1 (chief complaint)bladd er CA (chief complaint)GERD1 (chief complaint) Malignant neoplasm of bladder, unspecifiedIns omniaChronic pain syndromeTobacc o useBarrett's esophagus without dysplasia 1 Gaston Pickett [address], [place], [place], [address] , [place]. tel:[phone] OFFICE/OUTPA TIENT VISIT, [facility], [address] [place], [address], [place] tel:[phone] [facility] pain (chief complaint)insom nia1 (chief complaint)GERD1 (chief complaint)bladd er CA1 (chief complaint) InsomniaChroni c pain syndromeBarret t's esophagus without dysplasiaMalig nant neoplasm of bladder, unspecified 1 Gaston Pickett [address], [place], [place], [address] , [place]. tel:[phone] OFFICE/OUTPA TIENT VISIT, [facility], [address] [place], [address], [place] tel:[phone] [facility] pain (chief complaint)insom nia1 (chief complaint)thyro id1 (chief complaint)bladd er CA (chief complaint) InsomniaHypoth yroidismMalign ant neoplasm of bladder, unspecifiedChr onic pain syndrome 1 Feldman Iker. [address], [place], [place], [address] , [place]. tel:[phone] OFFICE/OUTPA TIENT VISIT, [facility], [address], [place], [place], [address], [place] tel:[phone] [facility] pain (chief complaint)insom nia1 (chief complaint)COPD1 (chief complaint)bladd er CA (chief complaint) InsomniaChroni c pain syndromeTobacc o useEmphysemaMa lignant neoplasm of bladder, unspecified Nov- 1 Feldman Iker. [address], [place], [place], [address] , [place]. tel:[phone] OFFICE/OUTPA TIENT VISIT, [facility], [address], [place], [place], [address], [place] tel:[phone] [facility] pain (chief complaint)insom nia1 (chief complaint)tobac co1 (chief complaint) Chronic pain syndromeInsomn iaTobacco use 1 Feldman Iker. [address], [place], [place], [address] , [place]. tel:[phone] OFFICE/OUTPA TIENT VISIT, [facility], [address] [place], [address], [place] tel:[phone] [facility] pain (chief complaint)insom nia1 (chief complaint)renal 1 (chief complaint) LeukocytosisAc [place]ole[place] renal failureHypokal emiaInsomniaCh ronic pain syndromeEssent ial (primary) hypertension 1 Gaston Pickett [address], [place], [place], [address] , [place]. tel:[phone] OFFICE/OUTPA TIENT VISIT, [facility], [address], [place], [place], [address], [place] tel:[phone] [facility] pain1 (chief complaint)insom nia1 (chief complaint)barre tt (chief complaint)weigh t loss1 (chief complaint) Chronic pain syndromeInsomn iaBarrett's esophagus without dysplasiaAbnor mal weight loss 1 Gaston Dong. [address], [place], [place], [address] , [place]. tel:[phone] OFFICE/OUTPA TIENT VISIT, [facility], [address], [place], [place], [address], [place] tel:[phone] [facility] pain (chief complaint)insom na1 (chief complaint) Chronic pain syndromeInsomn ia 1 Gaston Dong. [address], [place], [place], [address] , [place]. tel:[phone] OFFICE/OUTPA TIENT VISIT, [facility], [address], [place], [place], [address], [place] tel:[phone] [facility] pain (chief complaint)insom nia1 (chief complaint)vitam in D (chief complaint) Chronic pain syndromeInsomn iaVitamin D deficiency, unspecified 1 Gaston Pickett [address], [place], [place], [address] , [place]. tel:[phone] OFFICE/OUTPA TIENT VISIT, [facility], [address], [place], [place], [address], [place] tel:[phone] [facility] pain (chief complaint)insom nia1 (chief complaint) Chronic pain syndromeInsomn ia 1 Gaston Dong. [address], [place], [place], [address] , [place]. tel:[phone] OFFICE/OUTPA TIENT VISIT, [facility], [address] [place], [address], [place] tel:[phone] [facility] pain (chief complaint)insom nia1 (chief complaint)COPD1 (chief complaint) Chronic pain syndromeEmphys emaInsomnia May- 1 Gaston Dong. [address], [place], [place], [address] , [place]. tel:[phone] PREV VISIT, EST, 65 & OVER [facility], [address], [place], [place], [address], [place] tel:[phone] [facility] physical (chief complaint) Encounter for general adult medical exam w abnormal findingsChroni c pain syndromeEmphys emaInsomniaHyp othyroidismCor onary artery disease of [place] coronary artery w/o angina pectorisMalign ant neoplasm of bladder, unspecified 1 Gaston Dong. [address], [place], [place], [address] , [place]. [phone] OFFICE/OUTPA TIENT VISIT, [facility], [address] [place], [address], [place] tel:[phone] [facility] pain (chief complaint)insom nia1 (chief complaint)COPD1 (chief complaint) EmphysemaChron ic pain syndromeInsomn ia 0 Gaston Dong. [address], [place], [place], [address] , [place]. tel:[phone] OFFICE/OUTPA TIENT VISIT, [facility], [address] [place], [place], [address], [place] tel:[phone] [facility] pain1 (chief complaint)insom nia1 (chief complaint)hypot hyroidism1 (chief complaint)HLP (chief complaint) Hypothyroidism Hyperlipidemia Chronic pain syndromeInsomn ia 0 Gaston Dong. [address], [place], [place], [address] , [place]. tel:[phone] OFFICE/OUTPA TIENT VISIT, [facility], [address] [place], [place], [address], tel:[phone] [facility] pain (chief complaint)insom nia1 (chief complaint)hypot hyroidism1 (chief complaint)CAD1 (chief complaint) Chronic pain syndromeInsomn iaCoronary artery disease of [place] coronary artery w/o angina pectorisHypoth yroidism 0 Gaston Dong. [address], [place], [place], [address] , [place]. tel:[phone] OFFICE/OUTPA TIENT VISIT, [facility], [address] [place], [place], [address], [place] tel:[phone] [facility] pain (chief complaint)insom nia1 (chief complaint)tobac co1 (chief complaint) Chronic pain syndromeInsomn iaTobacco use 0 Gaston Dong. [address], [address] [place], [address] , [place]. tel:[phone] OFFICE/OUTPA TIENT VISIT, [facility], [address] [place], [address], [place] tel:[phone] [facility] pain (chief complaint)insom nia1 (chief complaint)tobac co (chief complaint)COPD1 (chief complaint) Chronic pain syndromeInsomn iaEmphysemaTob acco use 0 0 Gaston Dong. [address], [place], [place], [address] , [place]. tel:[phone] OFFICE/OUTPA TIENT VISIT, EST [facility], [address] [place], [place], [address], [place] tel:[phone] [facility] pain (chief complaint)insom nia1 (chief complaint)tobac co1 (chief complaint) Chronic pain syndromeInsomn iaTobacco use 0 Gaston Dong. [address], [place], [place], [address] , . [phone] OFFICE/OUTPA TIENT VISIT, [facility], [address] [place], [place], [address], [phone] [facility] pain (chief complaint)insom nia1 (chief complaint) Chronic pain syndromeInsomn iaMalignant neoplasm of bladder, unspecified 0 Gaston Iker. [address], [place], [place], [address] , [place]. tel:[phone] OFFICE/OUTPA TIENT VISIT, [facility], [address] [place], [place], [address], tel:[phone] [facility] pain1 (chief complaint)anxie ty1 (chief complaint)COPD1 (chief complaint)bladd er CA1 (chief complaint) Chronic pain syndromeInsomn iaEmphysemaMal ignant neoplasm of bladder, unspecified 0 Gaston Dong. [address], [place], [place], [address] , [place]. tel:[phone] OFFICE/OUTPA TIENT VISIT, [facility], [address] [place], [address], [place] tel:[phone] [facility] pain (chief complaint)anxie ty1 (chief complaint)D (chief complaint) InsomniaChroni c pain syndromeVitami n D deficiency, unspecified 0 Gaston Dong. [address], [place], [place], [address] , [place]. tel:[phone] OFFICE/OUTPA TIENT VISIT, [facility], [address] [place], [address], [place] tel:[phone] [facility] pain (chief complaint)anxie ty1 (chief complaint) Chronic pain syndromeInsomn ia Apr-0 0 Gaston Dong. [address], [place], [place], [address] , [place]. tel:[phone] OFFICE/OUTPA TIENT VISIT, [facility], [address], [place], [place], [address], tel:[phone] [facility] pain1 (chief complaint)anxie ty1 (chief complaint)Sloan tt1 (chief complaint)bladd er1 (chief complaint)HTn (chief complaint) Cervantes's esophagus without dysplasiaChron ic pain syndromeInsomn iaMalignant neoplasm of bladder, unspecifiedEss ential (primary) hypertension 0 Gaston Dong. [address], [place], [place], [address] , [place]. tel:[phone] Referring Provider: Iker Feldman [address] [place] [address] [place], [address]. tel:[phone] OFFICE/OUTPA TIENT VISIT, [facility], [address] [place], [address], [place] tel:[phone] [facility] copd (chief complaint)pain1 (chief complaint)anxie ty1 (chief complaint)Sloan tt1 (chief complaint)CAD (chief complaint) InsomniaBarret t's esophagus without dysplasiaChron ic pain syndromeEmphys emaCoronary artery disease of [place] coronary artery w/o angina pectoris 0 Gaston Dong. [address], [place], [place], [address] , [place]. tel:[phone] Referring Provider: Iker Feldman [address] [facility], [place], [place], [address]. tel:[phone] OFFICE/OUTPA TIENT VISIT, [facility], [address] [place], [address], [place] tel:[phone] [facility] anxiety1 (chief complaint)pain (chief complaint)bladd er CA (chief complaint)Sloan tt1 (chief complaint)COPD1 (chief complaint) Malignant neoplasm of bladder, unspecifiedEmp hysemaBarrett' s esophagus without dysplasiaChron ic pain syndromeInsomn ia Andrew- 0 Gaston Dong. [address], [place], [place], [address] , [place]. tel:[phone] Referring Provider: Franky Dunham [address], [place], [place], [address]. tel:[phone] OFFICE/OUTPA TIENT VISIT, [facility], [address], [place], [place], [address], tel:[phone] [facility] chronic pain1 (chief complaint)anxie ty1 (chief complaint)HTN (chief complaint)bladd er CA (chief complaint) Chronic pain syndromeMalign ant neoplasm of bladder, unspecifiedIns omniaEssential (primary) hypertensionCo ronary artery disease of [place] coronary artery w/o angina pectoris 9 Gaston Dong. [address], [place], [place], [address] , [place]. tel:[phone] Referring Provider: Franky Dunham [facility] [address], [place], [place], [address]. tel:[phone] PREV VISIT, EST, 65 & OVER [facility], [address], [place], [place], [address], [place] tel:[phone] [facility] physical (chief complaint) Encounter for general adult medical exam w abnormal findingsEmphys emaBarrett's esophagus without dysplasiaMalig nant neoplasm of bladder, unspecifiedChr onic pain syndromeHypoth yroidismCorona ry artery disease of [place] coronary artery w/o angina pectoris 9 Gaston Dong. [address], [place], [place], [address] , [place]. [phone] Referring Provider: Franky Dunham [address], [place], [place], [address]. tel:[phone] OFFICE/OUTPA TIENT VISIT, [facility], [address] [place], [address], [place] tel:[phone] [facility] chronic pain1 (chief complaint)insom nia1 (chief complaint)COPD (chief complaint)HTN (chief complaint) EmphysemaChron ic pain syndromeInsomn iaCoronary artery disease of [place] coronary artery w/o angina pectoris 9 Feldman Iker. [address], [place], [place], [address] , [place]. tel:[phone] OFFICE/OUTPA TIENT VISIT, [facility], [address], [place], [place], [address], [place] tel:[phone] [facility] emphysema1 (chief complaint)chron ic pain1 (chief complaint)insom nia1 (chief complaint)GERD1 (chief complaint) EmphysemaChron ic pain syndromeInsomn iaBarrett's esophagus without dysplasia 9 Feldman Iker. [address], [place], [place], [address] , [place]. tel:[phone] OFFICE/OUTPA TIENT VISIT, [facility], [address], [place], [place], [address], [place] tel:[phone] [facility] chronic pain1 (chief complaint)insom nia1 (chief complaint) Chronic pain syndromeInsomn ia Oct- 9 Feldman Iker. [address], [place], [place], [address] , [place]. tel:[phone] OFFICE/OUTPA TIENT VISIT, [facility], [address], [place], [place], [address], [place] tel:[phone] [facility] chronic pain1 (chief complaint)insom nia1 (chief complaint)COPD1 (chief complaint)bladd er tumor1 (chief complaint) Chronic pain syndromeInsomn iaEmphysemaMal ignant neoplasm of bladder, unspecified 9 Feldman Iker. [address], [place], [place], [address] , [place]. tel:[phone] OFFICE/OUTPA TIENT VISIT, [facility], [address], [place], [place], [address], [place] tel:[phone] [facility] chronic pain (chief complaint)anxie ty1 (chief complaint)bladd er CA (chief complaint)lung (chief complaint) Chronic pain syndromeInsomn iaScreening for lung caMalignant neoplasm of bladder, unspecified 9 Gaston Dong. [address], [place], [place], [address] , [place]. tel:[phone] Referring Provider: Franky Dun[address], [place], [place], [address]. tel:[phone] OFFICE/OUTPA TIENT VISIT, [facility], [address] [place], [address], [place] tel:[phone] [facility] vitamin D1 (chief complaint)thyro id1 (chief complaint)chron ic pain1 (chief complaint)insom nia1 (chief complaint) Hypothyroidism InsomniaChroni c pain syndromeVitami n D deficiency, unspecified 9 Gaston Dong. [address], [place], [place], [address] , [place]. tel:[phone] Referring Provider: Franky Dunham [address] [facility] [place], [place], [address]. tel:[phone] OFFICE/OUTPA TIENT VISIT, [facility], [address] [place], [address], [place] tel:[phone] [facility] chronic pain (chief complaint)insom nia1 (chief complaint) Chronic pain syndromeInsomn ia 9 Gaston Dong. [address] [place], [address] , [place]. tel:[phone] Referring Provider: Franky Dunham [address], [place], [place], [address]. tel:[phone] OFFICE/OUTPA TIENT VISIT, [facility], [address] [place], [place], [address], [place] tel:[phone] [facility] chronci pain1 (chief complaint)hypot hyroidism1 (chief complaint)CAD1 (chief complaint)lung (chief complaint) Chronic pain syndromeHypoth yroidismCorona ry artery disease of [place] coronary artery w/o angina pectorisScreen ing for lung caInsomnia 9 Gaston Dong. [address], [place], [place], [address] , [place]. tel:[phone] Referring Provider: Franky Dunham [address], [place], [place], [address]. tel:[phone] OFFICE/OUTPA TIENT VISIT, [facility], [address], [place], [place], [address], [place] tel:[phone] [facility] chronic pain1 (chief complaint)insom nia1 (chief complaint) Chronic pain syndromeInsomn ia 9 Gaston Dong. [address], [place], [place], [address] , [place]. tel:[phone] Referring Provider: Franky Dunham [facility] [address], [place], [place], [address]. tel:[phone] OFFICE/OUTPA TIENT VISIT, [facility], [address], [place], [place], [address], [place] tel:[phone] [facility] CAD1 (chief complaint)Sloan tt1 (chief complaint)bladd er tumor1 (chief complaint)chron ic pain1 (chief complaint)insom nia1 (chief complaint) Cervantes's esophagus without dysplasiaChron ic pain syndromeCorona ry artery disease of [place] coronary artery w/o angina pectorisEmphys emaInsomnia 9 Gaston Dong. [address], [place], [place], [address] , [place]. tel:[phone] Referring Provider: Franky Dunham [address], [place], [place], [address]. tel:[phone] OFFICE/OUTPA TIENT VISIT, [facility], [address], [place], [place], [address], [place] tel:[phone] [facility] chronic pain (chief complaint)insom nia1 (chief complaint)bladd er CA1 (chief complaint) Chronic pain syndromeInsomn iaMalignant neoplasm of bladder, unspecified Dec-2 1-201 8 Gaston Dong. [address], [place], [place], [address] , [place]. tel:[phone] Referring Provider: Iker Feldman, [address], [place], [place], [address]. tel:[phone] OFFICE/OUTPA TIENT VISIT, EST [facility], [address], [place], [place], [address], [place] tel:[phone] [facility] chronic pain (chief complaint)anxie ty1 (chief complaint)renal lesion (chief complaint)Sloan tt (chief complaint) InsomniaMalign ant neoplasm of bladder, unspecifiedChr onic pain syndromeBarret t's esophagus without dysplasia 8 Gaston Dong. [address], [place], [place], [address] , [place]. tel:[phone] Referring Provider: Iker Feldman [address] [facility] [address], [place], [place], [address]. tel:[phone] OFFICE/OUTPA TIENT VISIT, [facility], [address], [place], [place], [address], [place] tel:[phone] [facility] thyroid1 (chief complaint)chron ic pain1 (chief complaint)insom nia1 (chief complaint)COPD1 (chief complaint)bladd er tumor1 (chief complaint) EmphysemaInsom niaOther cystic kidney diseasesHypoth yroidismChroni c pain syndrome 8 Gaston Dong. [address], [place], [place], [address] , [place]. tel:[phone] Referring Provider: Franky Dunham [address], [place], [place], [address]. tel:[phone] PREV VISIT, EST, AGE 40-64 [facility], [address], [place], [place], [address], [place] tel:[phone] [facility] Physical (chief complaint) Encounter for general adult medical exam w abnormal findingsChroni c pain syndromeInsomn iaMalignant neoplasm of bladder, unspecifiedCor onary artery disease of [place] coronary artery w/o angina pectorisHypoth yroidismEmphys zuleima 8 Gaston Dong. [address], [place], [place], [address] , [place]. tel:[phone] Referring Provider: Franky [address], [place], [place], [address]. tel:[phone] OFFICE/OUTPA TIENT VISIT, [facility], [address] [place], [address], [place] tel:[phone] [facility] bladder CA (chief complaint)kidne y cyst1 (chief complaint)chron ic pain1 (chief complaint)insom nia1 (chief complaint) Malignant neoplasm of bladder, unspecifiedOth er cystic kidney diseasesChroni c pain syndromeInsomn ia 0 8 Gaston Pickett [address], [place], [place], [address] , [place]. tel:[phone] Referring Provider: Franky [address], [place], [place], [address]. tel:[phone] OFFICE/OUTPA TIENT VISIT, [facility], [address] [place], [address], [place] tel:[phone] [facility] chronic pain1 (chief complaint)anxie ty1 (chief complaint)COPD1 (chief complaint)renal 1 (chief complaint) EmphysemaChron ic pain syndromeBladde r disorder, unspecifiedIns omnia 8 Gaston Pickett [address], [place], [place], [address] , [place]. tel:[phone] OFFICE/OUTPA TIENT VISIT, [facility], [address] [place], [address], [place] tel:[phone] [facility] kidney1 (chief complaint)chron ic pain (chief complaint)insom nia1 (chief complaint) Chronic pain syndromeBladde r disorder, unspecifiedOth er cystic kidney diseases 8 Feldman Iker. [address], [place], [address] , [place]. tel:[phone] Referring Provider: Franky Dunham [address] [facility] [address], [place], [place], [address]. tel:[phone] OFFICE/OUTPA TIENT VISIT, [facility], [address], [place], [place], [address], [place] tel:[phone] [facility] hypothyroidism (chief complaint)HLP (chief complaint)chron ic pain1 (chief complaint)insom nia1 (chief complaint) Hypothyroidism Hyperlipidemia Chronic pain syndromeInsomn ia 8 Gaston Dong. [address], [place], [place], [address] , [place]. tel:[phone] Referring Provider: Iker Feldman, [address] [facility] [address], [place], [place], [address]. tel:[phone] OFFICE/OUTPA TIENT VISIT, [facility], [address] [place], [address], [place] tel:[phone] [facility] chronic pain (chief complaint)insom nia1 (chief complaint)CAD1 (chief complaint)COPD1 (chief complaint) Chronic pain syndromeCorona ry artery disease of [place] coronary artery w/o angina pectorisInsomn iaTobacco use 8 Gaston Dong. [address], [place], [place], [address] , [place]. tel:[phone] Referring Provider: Franky Dunham [address], [place], [place], [address]. tel:[phone] OFFICE/OUTPA TIENT VISIT, [facility], [address] [place], [address], [place] tel:[phone] [facility] chronic pain (chief complaint)insom nia1 (chief complaint)tobac co1 (chief complaint) Chronic pain syndromeInsomn iaTobacco use 8 Gaston Dong. [address], [place], [place], [address] , [place]. tel:[phone] OFFICE/OUTPA TIENT VISIT, [facility], [address], [place], [place], [address], [place] tel:[phone] [facility] chronic pain1 (chief complaint)anxie ty1 (chief complaint)tobac co1 (chief complaint)Sloan tt (chief complaint) Cervantes's esophagus without dysplasiaInsom niaChronic pain syndromeEmphys zuleima 8 Gaston Dong. [address], [place], [place], [address] , [place]. tel:[phone] Referring Provider: Iker Feldman, [address], [place], [place], [address]. tel:[phone] OFFICE/OUTPA TIENT VISIT, [facility], [address], [place], [place], [address], [place] tel:[phone] [facility] chronic pain1 (chief complaint)insom nia1 (chief complaint) InsomniaChroni c pain syndrome Fe 8 Gaston Dong. [address], [place], [place], [address] , [place]. tel:[phone] OFFICE/OUTPA TIENT VISIT, [facility], [address], [place], [place], [address], [place] tel:[phone] [facility] COPD1 (chief complaint)chron ic pain1 (chief complaint)insom nia1 (chief complaint)barre tt1 (chief complaint) Cervantes's esophagus without dysplasiaEmphy semaInsomniaCh ronic pain syndrome 8 Gaston Dong. [address], [place], [place], [address] , [place]. tel:[phone] Referring Provider: Iker Feldman [address], [place], [place], [address]. tel:[phone] OFFICE/OUTPA TIENT VISIT, [facility], [address], [place], [place], [address], [place] tel:[phone] [facility] sob (chief complaint)chron ic pain1 (chief complaint)insom nia1 (chief complaint) EmphysemaInsom niaChronic pain syndrome Dec- 7 Gaston Dong. [address], [place], [place], [address] , . [phone] Referring Provider: Franky Dunham [address], [place], [place], [address]. tel:[phone] OFFICE/OUTPA TIENT VISIT, [facility], [address], [place], [place], [address], [place] tel:[phone] [facility] chrnoic pain (chief complaint)anxei ty1 (chief complaint) Chronic pain syndromeInsomn ia 7 Gaston Pickett [address], [place], [place], [address] , [place]. [phone] Referring Provider: Franky Dunham [facility] [address], [place], [place], [address]. tel:[phone] OFFICE/OUTPA TIENT VISIT, [facility], [address], [place], [place], [address], [place] tel:[phone] [facility] chronic pain1 (chief complaint)anxie ty1 (chief complaint)thyro id1 (chief complaint)Sloan tt1 (chief complaint) InsomniaHypoth yroidismBarret t's esophagus without dysplasiaChron ic pain syndrome Dec- 7 Gaston Pickett [address], [place], [place], [address] , [place]. [phone] Referring Provider: Franky Dunham [address], [place], [place], [address]. tel:[phone] OFFICE/OUTPA TIENT VISIT, [facility], [address] [place], [address], [place] tel:[phone] [facility] chronic pain (chief complaint)anxie ty1 (chief complaint)ED (chief complaint) Chronic pain syndromeInsomn iaMale erectile dysfunction, unspecified Sep-0 7 Gaston Wil[address], [place], [place], [address] , [place]. [phone] Referring Provider: Franky Dun[address], [place], [place], [address]. tel:[phone] PREV VISIT, EST, AGE 40-64 [facility], [address], [place], [place], [address], [place] [phone] [facility] Physical (chief complaint) Encounter for general adult medical exam w abnormal findingsHypoth yroidismInsomn iaAtherosclero tic heart disease of [place] coronary artery without angina pectoris 7 Gaston Pickett [address], [place], [place], [address] , [place]. tel:[phone] Referring Provider: Franky Dunham [address], [place], [place], [address]. tel:[phone] OFFICE/OUTPA TIENT VISIT, EST [facility], [address], [place], [place], [address], [place] [phone] [facility] Cervantes (chief complaint)insom nia1 (chief complaint)chron ic pain1 (chief complaint)CAD (chief complaint) Cervantes's esophagus without dysplasiaChron ic pain syndromeAthero sclerotic heart disease of [place] coronary artery without angina pectorisInsomn ia 7 Gaston Wilkins [address], [place], [place], [address] , [place]. tel:[phone] Referring Provider: Franky Dunham [address], [place], [place], [address]. tel:[phone] OFFICE/OUTPA TIENT VISIT, EST [facility], [address], [place], [place], [address], [place] tel:[phone] [facility] chronic pain1 (chief complaint)insom nia1 (chief complaint) Chronic pain syndromeInsomn ia 7 Gaston Wilkins [address], [place], [place], [address] , [place]. tel:[phone] Referring Provider: Franky Dunham [address], [place], [place], [address]. tel:[phone] OFFICE/OUTPA TIENT VISIT, [facility], [address], [place], [place], [address], [place] tel:[phone] [facility] CAD (chief complaint)thyro id1 (chief complaint)hep C (chief complaint)chron ic pain1 (chief complaint)anxie ty1 (chief complaint) Hypothyroidism Atheroscleroti c heart disease of [place] coronary artery without angina pectorisInsomn iaHepatitis C 7 Gaston Pickett [address] [facility] [address], [place], [place], [address] , [place]. tel:[phone] Referring Provider: Franky Dunham [facility] [address], [place], [place], [address]. tel:[phone] OFFICE/OUTPA TIENT VISIT, [facility], [address], [place], [place], [address], [place] tel:[phone] [facility] chronic pain (chief complaint)insom nia1 (chief complaint)hep C (chief complaint)HLP (chief complaint) InsomniaHyperl ipidemiaEncoun ter for screening for other viral diseasesHypoth yroidism 7 Gaston Pickett [address], [place], [place], [address] , [place]. tel:[phone] Referring Provider: Franky Dunham [address], [place], [place], [address]. tel:[phone] OFFICE/OUTPA TIENT VISIT, [facility], [address] [place], [address], [place] tel:[phone] [facility] emphysema1 (chief complaint)chron ic pain (chief complaint)insom nia1 (chief complaint)CAD1 (chief complaint) COPDInsomniaCh ronic pain syndromeAthero sclerotic heart disease of [place] coronary artery without angina pectoris 7 Gaston Dong. [address], [place], [place], [address] , [place]. tel:[phone] Referring Provider: Franky Dunham [address], [place], [place], [address]. tel:[phone] OFFICE/OUTPA TIENT VISIT, [facility], [address], [place], [place], [address], [place] tel:[phone] [facility] chronic pain1 (chief complaint)insom nia1 (chief complaint)CAD (chief complaint)tobac co1 (chief complaint) InsomniaTobacc o useChronic pain syndromeAthero sclerotic heart disease of [place] coronary artery without angina pectoris Gaston Dong. [address], [place], [place], [address] , [place]. [phone] Referring Provider: Franky Dunham [address], [place], [place], [address]. tel:[phone] OFFICE/OUTPA TIENT VISIT, [facility], [address], [place], [place], [address], [place] tel:[phone] [facility] chronic pain (chief complaint)insom nia1 (chief complaint)tobac co1 (chief complaint) Chronic pain syndromeInsomn iaTobacco use 7 Gaston Dong. [address], [place], [place], [address] , [place]. tel:[phone] Referring Provider: Franky Dunham [address], [place], [place], [address]. tel:[phone] OFFICE/OUTPA TIENT VISIT, [facility], [address], [place], [place], [address], [place] tel:[phone] [facility] chronic pain1 (chief complaint)anxie ty1 (chief complaint)ED (chief complaint)GERD1 (chief complaint) Cervantes's esophagus without dysplasiaChron ic pain syndromeInsomn iaMale erectile dysfunction, unspecified 6 Gaston Dong. [address], [place], [place], [address] , [place]. tel:[phone] Referring Provider: Franky Dunham [address], [place], [place], [address]. tel:[phone] OFFICE/OUTPA TIENT VISIT, [facility], [address], [place], [place], [address], [place] tel:[phone] [facility] chronic pain (chief complaint)anxie ty1 (chief complaint) Chronic pain syndromeInsomn ia Jan- 6 Gaston Dong. [address], [place], [place], [address] , [place]. tel:[phone] Referring Provider: Franky Dunham [address], [place], [place], [address]. tel:[phone] OFFICE/OUTPA TIENT VISIT, [facility], [address], [place], [place], [address], [place] tel:[phone] [facility] chronic pain (chief complaint)anxie ty1 (chief complaint)hypot hyroidism (chief complaint)HTN (chief complaint) Chronic pain syndromeInsomn iaEssential (primary) hypertensionHy pothyroidism 6 Gaston Dong. [address], [place], [place], [address] , [place]. tel:[phone] Referring Provider: [address], [place], [place], [address]. tel:[phone] OFFICE/OUTPA TIENT VISIT, [facility], [address], [place], [place], [address], [place] tel:[phone] [facility] chronic pain1 (chief complaint)anxie ty1 (chief complaint)GERD1 (chief complaint)HTN (chief complaint) Chronic pain syndromeBarret t's esophagus without dysplasiaEssen tial (primary) hypertensionAn xiolytic dependence Sep-3 0201 6 Gaston Dong. [address], [place], [place], [address] , [place]. tel:[phone] Referring Provider: Franky Dunham [address], [place], [place], [address]. tel:[phone] OFFICE/OUTPA TIENT VISIT, [facility], [address] [place], [place], [address], tel:[phone] [facility] chronic pain (chief complaint)anxie ty1 (chief complaint) Chronic pain syndromeAnxiol ytic dependence 6 Gaston Dong. [address], [place], [place], [address] , [place]. tel:[phone] Referring Provider: Iker Feldman, Franky [facility] A, [place], [place], [address]. tel:[phone] OFFICE/OUTPA TIENT VISIT, [facility], [address] [place], [place], [address], [place] tel:[phone] [facility] CAD (chief complaint)HLP (chief complaint)hypot hyroidism (chief complaint)chron ic pain (chief complaint) Atheroscleroti c heart disease of [place] coronary artery without angina pectorisAnxiol ytic dependenceHype rlipidemiaChro flores pain syndrome 6 Gaston Dong. [address], [facility] A, [place], [place], [address] , [place]. tel:[phone] Referring Provider: Franky Dunham [facility] [place], [place], [address]. tel:[phone] OFFICE/OUTPA TIENT VISIT, [facility], [address] [place], [place], [address], [place] tel:[phone] [facility] chronic pain (chief complaint)insom nia1 (chief complaint)ED1 (chief complaint) Chronic pain syndromeInsomn iaOther male erectile dysfunctionCor onary artery disease of [place] coronary artery w/o angina pectoris 6 Gaston Pickett [address], [place], [place], [address] , [place]. tel:[phone] Referring Provider: Franky Dunham [facility] A, [place], [place], [address]. tel:[phone] OFFICE/OUTPA TIENT VISIT, [facility], [address], [place], [place], [address], [place] tel:[phone] [facility] chronic pain (chief complaint)anxie ty1 (chief complaint) Chronic pain syndromeAnxiol ytic dependence Bebeto-0 6 Gaston Dong. [address], [place], [place], [address] , [place]. tel:[phone] Referring Provider: Iker Feldman, [address], [place], [place], [address]. tel:[phone] OFFICE/OUTPA TIENT VISIT, [facility], [address], [place], [place], [address], [place] tel:[phone] [facility] chronic pain (chief complaint)anxie ty1 (chief complaint)barre tt (chief complaint)CAD (chief complaint) Chronic pain syndromeBarret t's esophagus without dysplasiaCoron william artery disease of [place] coronary artery w/o angina pectorisEncoun ter for screening for malignant neoplasm of prostate Apr-2 6 Gaston Dong. [address], [place], [place], [address] , [place]. tel:[phone] Referring Provider: [address], [place], [place], [address]. tel:[phone] OFFICE/OUTPA TIENT VISIT, [facility], [address] [place], [address], [place] [phone] [facility] chronic pain (chief complaint)anxie ty1 (chief complaint)dizzi ness (chief complaint)anemi a1 (chief complaint) AnemiaDizzines sChronic pain syndrome Apr-0 6 Gaston Dong. [address], [place], [place], [address] , [place]. tel:[phone] Referring Provider: Franky [address], [place], [place], [address]. tel:[phone] OFFICE/OUTPA TIENT VISIT, [facility], [address], [place], [place], [address], [place] tel:[phone] [facility] chronic pain (chief complaint)anxie ty1 (chief complaint) Other insomniaChroni c pain syndrome 6 Gaston Dong. [address], [place], [place], [address] , [place]. tel:[phone] Referring Provider: Iker Feldman, [address], [place], [place], [address]. tel:[phone] OFFICE/OUTPA TIENT VISIT, [facility], [address], [place], [place], [address], [place] tel:[phone] [facility] GERD1 (chief complaint)HLP1 (chief complaint)chron ic pain (chief complaint)insom nia1 (chief complaint) Hyperlipidemia Chronic pain syndromeGERD without esophagitisHyp othyroidism 6 Gaston Dong. [address], [place], [place], [address] , [place]. tel:[phone] Referring Provider: Franky [address], [place], [place], [address]. tel:[phone] OFFICE/OUTPA TIENT VISIT, [facility], [address], [place], [place], [address], [place] tel:[phone] [facility] chronic pain (chief complaint)anxie ty1 (chief complaint)GERD1 (chief complaint)CAD (chief complaint) Chronic pain syndromeOther insomniaCorona ry artery disease of [place] coronary artery without angina pectorisHyperl ipidemia 5 Gaston Dong. [address], [place], [place], [address] , [place]. tel:[phone] Referring Provider: Franky Dunham [address], [place], [place], [address]. tel:[phone] OFFICE/OUTPA TIENT VISIT, [facility], [address], [place], [place], [address], [place] tel:[phone] [facility] right ankle pain (chief complaint)anxie ty1 (chief complaint) Chronic pain syndromeOther insomnia 5 Gaston Dong. [address], [place], [place], [address] , [place]. tel:[phone] Referring Provider: Iker Feldman, Franky [address], [place], [place], [address]. tel:[phone] OFFICE/OUTPA TIENT VISIT, [facility], [address], [place], [place], [address], [place] tel:[phone] [facility] ankle pain1 (chief complaint)insom nia1 (chief complaint) Secondary osteoarthritis , right ankle and footOther insomnia 5 Gaston Pickett [address], [place], [place], [address] , [place]. tel:[phone] Referring Provider: Franky Dunham [address], [place], [place], [address]. tel:[phone] OFFICE/OUTPA TIENT VISIT, [facility], [address], [place], [place], [address], [place] tel:[phone] [facility] ankle pain (chief complaint)insom alverto (chief complaint)CAD (chief complaint)gastr ic ulcer (chief complaint) Pain in right ankleOpioid dependence, uncomplicatedH ypertensive heart disease without heart failureChronic gastric ulcer without hemorrhage or perforationTob acco use 5 Gaston Pickett [address], [place], [place], [address] , [place]. [phone] Referring Provider: [address]y [address], [place], [place], [address]. tel:[phone] OFFICE/OUTPA TIENT VISIT, [facility], [address], [place], [place], [address], [place] tel:[phone] [facility] HTN (chief complaint)gastr ic ulcer (chief complaint)insom alverto (chief complaint)hypot hyroidism (chief complaint) Insomnia, unspecifiedUns pecified hypothyroidism Unspecified essential hypertensionAc [place] gastric ulcer without mention of hemorrhage or perforation, with obstruction Nov-0 5 Gaston Dong. [address], [place], [place], [address] , [place]. [phone] Referring Provider: Iker Feldman, Franky [address], [place], [place], [address]. tel:[phone] OFFICE/OUTPA TIENT VISIT, [facility], [address], [place], [place], [address], [place] [phone] [facility] pain (chief complaint)anxie ty (chief complaint)hypot hyroidism (chief complaint)gERD (chief complaint) Insomnia, unspecifiedUns pecified hypothyroidism Unspecified essential hypertension Sep-3 5 Gaston Pickett [address], [place], [place], [address] , [place]. [phone] Referring Provider: Franky Dunham [address], [place], [place], [address]. tel:[phone] OFFICE/OUTPA TIENT VISIT, [facility], [address], [place], [place], [address], [place] tel:[phone] [facility] chronic apin (chief complaint)anxie ty (chief complaint) Other chronic pain 5 Gaston Pickett [address], [place], [place], [address] , [place]. [phone] Referring Provider: Franky Dunham [address], [place], [place], [address]. tel:[phone] OFFICE/OUTPA TIENT VISIT, [facility], [address], [place], [place], [address], [place] tel:[phone] [facility] chronic pain (chief complaint)anxie ty (chief complaint) Ankle pain 5 Gaston Pickett [address], [place], [place], [address] , [place]. [phone] Referring Provider: Iker Feldman [address], [place], [place], [address]. tel:[phone] OFFICE/OUTPA TIENT VISIT, [facility], [address], [place], [place], [address], [place] [phone] [facility] chronic pain (chief complaint)anxie ty (chief complaint)hypot hyroidism (chief complaint) Hypothyroidism Pain in joint involving lower legInsomnia, OtherScreening for malignant neoplasms of the prostate 5 Gaston Dong. [address], [place], [place], [address] , [place]. [phone] Referring Provider: Iker Feldman, [address], [place], [place], [address]. tel:[phone] OFFICE/OUTPA TIENT VISIT, [facility], [address], [place], [place], [address], [place] tel:[phone] [facility] chronic pain (chief complaint)anxie ty (chief complaint)gastr ic ulcer (chief complaint)CAD (chief complaint) Insomnia, OtherCAD, [place] VesselAcute gastric ulcer without mention of hemorrhage or perforation, with obstructionOpi oid type dependence, unspecified use Jun- 5 Gaston Dong. [address], [place], [place], [address] , [place]. [phone] Referring Provider: Iker Feldman, [address], [place], [place], [address]. tel:[phone] OFFICE/OUTPA TIENT VISIT, [facility], [address], [place], [place], [address], [place] tel:[phone] [facility] chronic pain (chief complaint)insom alverto (chief complaint) Insomnia, OtherPain in joint involving lower legOpioid type dependence, unspecified useSedative, hypnotic or anxiolytic dependence, unspecified Mar-0 5 Gaston Dong. [address], [place], [place], [address] , [place]. tel:[phone] Referring Provider: Franky Dunham [address], [place], [place], [address]. tel:[phone] OFFICE/OUTPA TIENT VISIT, [facility], [address], [place], [place], [address], [place] tel:[phone] [facility] chornic pain (chief complaint)anxie ty (chief complaint)HLP (chief complaint)hypot hyroidism (chief complaint) Hypothyroidism Insomnia, OtherOther and unspecified hyperlipidemia Pain in joint involving lower leg 5 Gaston Dong. [address], [place], [place], [address] , [place]. [phone] Referring Provider: Iker Feldman, [address], [place], [place], [address]. tel:[phone] OFFICE/OUTPA TIENT VISIT, [facility], [address], [place], [place], [address], [place] tel:[phone] [facility] GERD (chief complaint)chron ic pain (chief complaint)anxie ty (chief complaint)HLP (chief complaint) Hypothyroidism CAD, [place] VesselPain in joint involving lower legHypertensio n, Unspecified 5 Gaston Dong. [address], [place], [place], [address] , [place]. [phone] Referring Provider: Franky Dunham [address], [place], [place], [address]. tel:[phone] OFFICE/OUTPA TIENT VISIT, [facility], [address], [place], [place], [address], [place] tel:[phone] [facility] chronic pain (chief complaint)Anxie ty (chief complaint)HLP (chief complaint) Other and unspecified hyperlipidemia Pain in joint involving lower leg 4 Gaston Dong. [address], [place], [place], [address] , [place]. tel:[phone] Referring Provider: Iker Feldman [address], [place], [place], [address]. tel:[phone] OFFICE/OUTPA TIENT VISIT, [facility], [address], [place], [place], [address], [place] [phone] [facility] HLP (chief complaint)chron ic pain (chief complaint)anxie ty (chief complaint)HTN (chief complaint)CAD (chief complaint)GERD (chief complaint) Hypothyroidism CAD, [place] VesselHyperten jayleen, UnspecifiedCHR ONIC PAIN NEC 4 Gaston Dong. [address], [place], [place], [address] , [place]. tel:[phone] Referring Provider: Franky Dunham [address], [place], [place], [address]. tel:[phone] OFFICE/OUTPA TIENT VISIT, [facility], [address], [place], [place], [address], [place] tel:[phone] [facility] chronic pain (chief complaint)anxie ty (chief complaint) Hypothyroidism Pain in joint involving lower leg 4 Gaston Dong. [address], [place], [place], [address] , [place]. tel:[phone] Referring Provider: Franky [address], [place], [place], [address]. tel:[phone] OFFICE/OUTPA TIENT VISIT, [facility], [address], [place], [place], [address], [place] tel:[phone] [facility] chronic pain (chief complaint)anxie ty (chief complaint)GERD (chief complaint)CAD (chief complaint) Pain in joint involving lower legCAD, [place] VesselAcute gastric ulcer without mention of hemorrhage or perforation, with obstructionHyp othyroidism 0 4 Gaston Dong. [address], [place], [place], [address] , [place]. tel:[phone] Referring Provider: Franky Dunham [address], [place], [place], [address]. tel:[phone] OFFICE/OUTPA TIENT VISIT, [facility], [address], [place], [place], [address], [place] tel:[phone] [facility] chornic pain (chief complaint)anxie ty (chief complaint)HTN (chief complaint) CHRONIC PAIN NECHypertensio n, Unspecified 4 Gaston Dong. [address], [place], [place], [address] , [place]. [phone] Referring Provider: Franky Dunham [address], [place], [place], [address]. tel:[phone] OFFICE/OUTPA TIENT VISIT, [facility], [address], [place], [place], [address], [place] tel:[phone] [facility] GERD (chief complaint)chorn ic pain (chief complaint)anxie ty (chief complaint) GERDCHRONIC PAIN NEC 4 Gaston Dong. [address], [place], [place], [address] , [place]. [phone] Referring Provider: Franky Dunham [address], [place], [place], [address]. tel:[phone] OFFICE/OUTPA TIENT VISIT, [facility], [address], [place], [place], [address], [place] tel:[phone] [facility] gastric ulcer (chief complaint)chorn ic pain (chief complaint)anxie ty (chief complaint)hypot hyroidism (chief complaint) Acute gastritis (without mention of hemorrhage)CHR ONIC PAIN NECPain in joint involving lower legHypothyroid ism 4 Gaston Dong. [address], [place], [place], [address] , [place]. tel:[phone] Referring Provider: Franky Dunham [address], [place], [place], [address]. tel:[phone] OFFICE/OUTPA TIENT VISIT, [facility], [address], [place], [place], [address], [place] tel:[phone] [facility] chornic pain (chief complaint)anxie ty (chief complaint)gastr ic ulcer (chief complaint)CAD (chief complaint) Acute gastric ulcer without mention of hemorrhage or perforation, with obstructionPai n in joint involving lower legCAD, [place] July- 4 Gaston Dong. [address], [place], [address] , [place]. [phone] Referring Provider: Iker Feldman, Franky [address], [place], [place], [address]. tel:[phone] OFFICE/OUTPA TIENT VISIT, [facility], [address], [place], [place], [address], [place] tel:[phone] [facility] HLP (chief complaint)CAD (chief complaint)hemat uria (chief complaint)chorn ic pain (chief complaint)anxie ty (chief complaint) Other and unspecified hyperlipidemia CAD, [place] VesselHEMATURI A NOSPain in joint involving lower leg Apr-0 4 Gaston Dong. [address], [place], [place], [address] , [place]. [phone] Referring Provider: Iker Feldman, Franky [address], [place], [place], [address]. tel:[phone] OFFICE/OUTPA TIENT VISIT, [facility], [address], [place], [place], [address], [place] tel:[phone] [facility] hematuria (chief complaint)hypot hyroidism (chief complaint)chron ic painPt (chief complaint) HEMATURIA NOSCHRONIC PAIN NECHypothyroid ism May-0 4 Gaston Dong. [address], [place], [address] , [place]. [phone] Referring Provider: Franky [address], [place], [place], [address]. tel:[phone] OFFICE/OUTPA TIENT VISIT, [facility], [address], [place], [place], [address], [place] tel:[phone] [facility] chronic pain (chief complaint)HLP (chief complaint)Anxie ty (chief complaint)hemtu valerio (chief complaint) CHRONIC PAIN NECHypothyroid ismOther and unspecified hyperlipidemia HEMATURIA NOS Fe 4 Gaston Dong. [address], [place], [place], [address] , [place]. tel:[phone] Referring Provider: Iker Feldman, [address], [place], [place], [address]. tel:[phone] OFFICE/OUTPA TIENT VISIT, [facility], [address], [place], [place], [address], [place] tel:[phone] [facility] CAD (chief complaint)chorn ic pain (chief complaint)anxie ty (chief complaint)Hypot hyroidism (chief complaint) Hypothyroidism CAD, [place] VesselOther and unspecified hyperlipidemia CHRONIC PAIN NEC 4 Gaston Dong. [address], [place], [place], [address] , [place]. tel:[phone] Referring Provider: Franky Dunham [address], [place], [place], [address]. tel:[phone] OFFICE/OUTPA TIENT VISIT, [facility], [address], [place], [place], [address], [place] tel:[phone] [facility] chronic pain (chief complaint)anxie ty (chief complaint) CHRONIC PAIN NEC 3 Gaston Dong. [address], [place], [place], [address] , [place]. tel:[phone] Referring Provider: Franky Dunham [address], [place], [place], [address]. tel:[phone] OFFICE/OUTPA TIENT VISIT, [facility], [address], [place], [place], [address], [place] tel:[phone] [facility] chronic pain (chief complaint)anxie ty (chief complaint) CHRONIC PAIN NECHypothyroid ismOther and unspecified hyperlipidemia 3 Gaston Pickett [address], [place], [place], [address] , [place]. [phone] Referring Provider: Franky Dunham [address], [place], [place], [address]. tel:[phone] OFFICE/OUTPA TIENT VISIT, [facility], [address], [place], [place], [address], [place] tel:[phone] [facility] hypothyroidism (chief complaint)Chron ic pain (chief complaint)anxie ty (chief complaint) Hypothyroidism Other and unspecified hyperlipidemia CAD, [place] 3 Gaston Pickett [address], [place], [place], [address] , [place]. [phone] Referring Provider: Franky Dunham [address], [place], [place], [address]. tel:[phone] OFFICE/OUTPA TIENT VISIT, [facility], [address], [place], [place], [address], [place] tel:[phone] [facility] chronic pain (chief complaint)anxie ty (chief complaint) CHRONIC PAIN NECHypothyroid ismOther and unspecified hyperlipidemia 3 Gaston Pickett [address], [place], [place], [address] , [place]. [phone] Referring Provider: Franky Dunham [address], [place], [place], [address]. tel:[phone] OFFICE/OUTPA TIENT VISIT, [facility], [address], [place], [place], [address], [place] tel:[phone] [facility] Hypothyroidism (chief complaint)CAD (chief complaint)chron ic pain (chief complaint) Hypothyroidism CAD, [place] VesselCHRONIC PAIN NEC Aug 3 Gaston Pickett [address], [place], [place], [address] , [place]. tel:[phone] Referring Provider: Iker Feldman, Franky [address], [place], [place], [address]. tel:[phone] OFFICE/OUTPA TIENT VISIT, [facility], [address], [place], [place], [address], [place] [phone] [facility] CAD (chief complaint)chron ic pain (chief complaint)anxie ty (chief complaint) CAD, [place] VesselCHRONIC PAIN NECInsomnia, Other 3 Gaston Dong. [address], [place], [place], [address] , [place]. [phone] Referring Provider: Franky Dunham [address], [place], [place], [address]. tel:[phone] OFFICE/OUTPA TIENT VISIT, [facility], [address], [place], [place], [address], [place] tel:[phone] [facility] CAD (chief complaint)Chron ic pain (chief complaint)anxie ty (chief complaint) CAD, [place] VesselCHRONIC PAIN NECHypothyroid ism 3 Gaston Dong. [address], [place], [place], [address] , [place]. [phone] Referring Provider: Franky Dunham [address], [place], [place], [address]. tel:[phone] OFFICE/OUTPA TIENT VISIT, [facility], [address], [place], [place], [address], [place] tel:[phone] [facility] chronic pain (chief complaint)anxie ty (chief complaint)Hypot hyroidism (chief complaint) Hypothyroidism CHRONIC PAIN NEC 3 Gaston Dong. [address], [place], [place], [address] , [place]. tel:[phone] Referring Provider: Franyk Dunham [address], [place], [place], [address]. tel:[phone] OFFICE/OUTPA TIENT VISIT, [facility], [address], [place], [place], [address], [place] tel:[phone] [facility] chornic pain (chief complaint)Anxie ty. (chief complaint)hypot hyroidism (chief complaint) Hypothyroidism CHRONIC PAIN NECRESTLESS LEGS SYNDROME Jun-0 3 Gaston Dong. [address], [address], [place], [place], [address] , [place]. tel:[phone] Referring Provider: Iker Feldman, [address], [place], [place], [address]. tel:[phone] OFFICE/OUTPA TIENT VISIT, [facility], [address], [place], [place], [address], [place] tel:[phone] [facility] chronic pain (chief complaint)viral (chief complaint)Anxie ty (chief complaint) Viral Infection, UnspecifiedCHR ONIC PAIN NECHypothyroid ism May-0 3 Gaston Dong. [address], [place], [place], [address] , [place]. tel:[phone] Referring Provider: Franky Dunham [address], [place], [place], [address]. tel:[phone] OFFICE/OUTPA TIENT VISIT, [facility], [address], [place], [place], [address], [place] tel:[phone] [facility] chronic pain (chief complaint)Anxie ty (chief complaint)hypot hyroidism (chief complaint)ED (chief complaint) Hypothyroidism CHRONIC PAIN NECErectile Dysfunction Fe-0 3 Gaston Dong. [address], [place], [place], [address] , [place]. tel:[phone] Referring Provider: Iker Feldman [address], [place], [place], [address]. tel:[phone] OFFICE/OUTPA TIENT VISIT, [facility], [address], [place], [place], [address], [place] tel:[phone] [facility] hypothyroidism (chief complaint)chron ic pain (chief complaint) CHRONIC PAIN NECHypothyroid ismRESTLESS LEGS SYNDROME 3 Gaston Dong. [address], [place], [place], [address] , [place]. [phone] Referring Provider: Iker Feldman, [address], [place], [place], [address]. tel:[phone] OFFICE/OUTPA TIENT VISIT, [facility], [address], [place], [place], [address], [place] [phone] [facility] chronic pain (chief complaint)restl ess leg syndrome (chief complaint)anxie ty (chief complaint) CHRONIC PAIN NECRESTLESS LEGS SYNDROME 2 Gaston Pickett [address], [place], [place], [address] , [place]. [phone] Referring Provider: Franky Dunham [address], [place], [place], [address]. tel:[phone] OFFICE/OUTPA TIENT VISIT, [facility], [address], [place], [place], [address], [place] tel:[phone] [facility] chronic pain (chief complaint)restl ess leg (chief complaint) RESTLESS LEGS SYNDROMECHRONI C PAIN NEC 2 Gaston Pickett [address], [place], [place], [address] , [place]. [phone] Referring Provider: Franky Dunham [address], [place], [place], [address]. tel:[phone] OFFICE/OUTPA TIENT VISIT, [facility], [address], [place], [place], [address], [place] tel:[phone] [facility] chornic pain (chief complaint)anxie ty (chief complaint)insom alverto (chief complaint) Insomnia, OtherCHRONIC PAIN NECRESTLESS LEGS SYNDROME 0 2 Gaston Dong. [address], [place], [place], [address] , . tel:[phone] Referring Provider: [address], [place], [place], [address]. tel:[phone] Family History Family Member Type Diagnosis Age At Onset Father Problem (finding) Cancer - colon CA Mother Problem (finding) Alive and well Brother Problem (finding) Coronary artery disease Brother Problem (finding) Other Payers Payer name Insurance type Covered republican ID Authoriza ticlaudette(s) [facility] [id number] Social History Type Description Quantity Date Captured [...] ordered Referral Referred To: Suzanne Beckham [address] [place], [place] [id number] Ordered: Referrals: Allopathic & Osteopathic Physicians : Urology. Suzanne Beckham. 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 Pt denies any urinary symptoms anxiety The patient pres ents with anxious/fearful thoughts but denies fatigue. The patient denies any nausea, urinary frequency, vomiting and weight gain. Additional information: Pt has chronic anxiety and insomnia. Pt takes xanax qhs PRn and doing ok, Pt denies any depression or any suicidal thought. Pt denies any crying spells Pt doing ok with xanax qhs PRN. pain Pt has chronic r ight ankle pain. Pt has arthritis. Pt failed NSAID and ultram pt takes norco PRn for pain and doing ok. Pt denies any worsening pain. Pt denies any neuropathy thyroid1 Pt has hypothyro idism. Pt takes [...] xanax qhs PRN bladder CA1 Pt has bladder C A and kidney CA. 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 Pt takes [...] any worsening pain. Pt denies any neuropathy colon polyp Pt has history o f [...] D is ok Pt needs it refilled insomnia1 Pt has chronic a nxiety and [...] of 2021. Pt doing ok with omeprazole insomnia1 Pt has chronic a nxiety and [...] has bladder C A Pt supposes to [facility] urology but his cezar was again canceled. Pt did call urology at [facility] who he used to see and [...] A. Pt was referred to urology of [facility] and he tried to [...] PT has not heard from urology yet insomnia Pt has chronic a nxiety and [...] any worsening pain. Pt denies any neuropathy tobacco1 Pt has 54 pack y ear [...] Pt doing ok with xanax qhs PRN weight loss1 Pt lost 10 pound s since last month, although he is not sure since he was reporting his weight from tele visit and he did not actually checked his weight pt denies any appetite loss, nausea, vomiting, diarrhea, change of bowel, early satiety, etc cervantes Pt has helen cardona. Pt supposes to have EGD done this year with Dr. Grove but the cezar was canceled by GI and he is not sure why. Pt doing ok with omeprazole. pain Pt has chronic r ight ankle [...] qhs PRN tobacco Pt needs LDCT, w hic is approved pt still smoking Pt denies any worsening sob or cough. Pt denies any hemoptysis COPD1 Pt has COPD Pt u ses incruse once per day Pt takes albuterol once per day on average Pt needs refill. tobacco1 Pt has more than 30 pack [...] any chest pain Pt just saw his lifestyle consultant and was cleared for another year. anxiety1 [...] chest pain pt denies any new complaints HTN Pt has HTN with CAD Pt [...] 1-2 per week Pt needs ventolin refilled emphysema1 Pt has emphysema . Pt takes [...] worsening pain. Pt failed NSAID and ultram CAD1 Pt has CAD with stent. Pt sees cardiology. Pt just seen cardiology last week and was told everything is clear and he should continue current course. Pt denies any chest pain. P takes lisinopril,. lipitor, coreg, plavix. Pt still smoking insomnia1 Pt takes xanax q hs PRN and doing ok. 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 Pt just seen GI. Pt will do EGD next year and colonoscopy 2020. Pt denies any GERD or GI issue Pt is on omeprazole bladder tumor1 Pt is seeing uro logy. Pt had left ureter stent placed recently. Pt has normal Urine output insomnia1 Pt has insomnia Pt takes xanax [...] and he is seeing Dr. Junior in [place] and he will have the mass removed [...] Evaristo braun who is a urologist in [facility] who did the cysto and he told me the renal lesion is almost 100% sure a benign cyst. He did take the Ct to his radiologist over [facility] However, he is not in network with [...] 1 Pt just seen uro logy in [facility]. He will do cystoscopy. pt has not done MRi yet insomnia1 Pt has insomnia Pt takes xanax qhs PRn and doing ok. Pt denies any snoring chronic pain Pt has chronic r ight ankle pain Pt has history of fracture Pt failed NSAID Pt denies any worsening pain kidney1 Pt recently had CT of chest/abd/pelvis. There is a lesion on left kidney and also bladder suspicious for malignancy. Pt denies any pain. Pt denies any urinary symptoms hypothyroidism Pt takes synthro id. His TSH [...] also ultram and codeine Cervantes Pt has cervantes e sophagus. Pt takes omeprzole. pt deneis any GERd [...] any GERD Pt will do EGD soon insomnia1 Pt has insomnia and anxiety. Pt [...] Pt denies any worsening pain. [facility]. chrnoic pain Pt has chronic r [...] P takes xanax PRN and doing ok thyroid1 Pt has low thryo id Pt takes synthroid. TSH ok CAD Pt has CAD with stent. pt takes plavix, ASA, coreg, lipitor. His lipid profile is good. Pt denies any chest pain. Pt had benign stress test recently hep C Pt had hep C but [...] and lipitor. Pt denies any chest pain insomnia1 Pt has insomnia Pt takes xanax qhs PRN and doing ok. Pt denies any depression or any suicidal thought CAD Pt has CAD with stent. Pt takes lipitor, coreg and lisinopril Pt sees cardiology. Pt denies any chest pain tobacco1 Pt has 40 pack y ear tobacco. Pt tried to schedule for CT of chest but [facility] will not do it. Pt denies any SOB chronic pain1 Pt has chronic r ight ankle pain. Pt denies any worsening pain. Pt denies any swelling chronic pain Pt has chronic r ight [...] or homicdial thought Pt denies any depression insomnia1 Pt has chronic i nsomnia and [...] worsening pain. Pt denies any excessive swelling chronic pain Pt has chronic r ight [...] spells Pt denie any feeling of hopelessness gastric ulcer Pt has history o f [...] and plavix. Pt denies any chest pain HTN Pt takes lisinop ril 10 mg [...] syndrome Quit smoking Related to Insom alverto Special [...] Surveillance and Counseling Quit smoking Related to Sloan tt's esophagus without dysplasia Prescribed Activity and Exercise Education Related to Dietary Surveillance and Counseling Prescribed Diet Educ ation/Lifestyle Education Regarding Diet Related to Dietary Surveillance and Counseling Quit smoking Related to Insom alverto Prescribed Activity and Exercise Education Related to Dietary Surveillance and Counseling Prescribed Diet Educ ation/Lifestyle Education Regarding Diet Related to Dietary Surveillance and Counseling Quit smoking Related to Sloan tt's esophagus without dysplasia Quit smoking Related [...] Surveillance and Counseling exercise Related to CAD, [place] Vessel Assessments Type Assessment Date assessment Anemia assessment Chronic pain syndrome assessment Malignant neoplasm of bladder, u nspecified assessment Other insomnia Mental Status Date Cognitive Assessment Orientation - [place] ed to time, place, person, situation.
--- OUTSIDE RECORDS SUMMARY | 2024-10-09 00:22 | XMS_ITS | Referral Summary ---
Author Organization [facility] [place] [address] [facility] [address] [place] [address] Care Team Providers Care Concrete Block Plant Supervisor Name Role Phone Iker Feldman MD Primary Care Provider [phone] Iker Feldman MD Unavailable [phone] Encounters Date Type Department Care Team Description 08/19/[address] [facility] Cardiology [address] [facility] [address] [place] [address] Perri Lux NP preop form [...] 1 tablet (88 mcg total) by mouth machine adjuster leader before breakfast Active albuterol HFA (PROVENTIL HFA,VENTOLIN [...] needed for pain Active cholecalciferol (VITAMIN D-3) 55083 unit tablet Take 1 tablet (50,000 Units total) by mouth once a week Active carvediloL (COREG) 3.125 mg tabletIndications :Coronary artery disease involving sioux coronary artery of sioux heart without angina pectoris Take 1 tablet (3.125 mg total) by mouth 2 (two) times a day with meals 180 tablet 3 4 Active clopidogreL (PLAVIX) 75 mg tabletIndications :Coronary artery disease involving sioux coronary artery of sioux heart without angina pectoris Take 1 tablet (75 mg total) by mouth daily 90 tablet 3 4 Active atorvastatin (LIPITOR) 40 mg tabletIndications :Coronary artery disease involving sioux coronary artery of sioux heart without angina pectoris Take 1 tablet (40 mg total) by mouth daily 90 tablet 3 4 Active nitroglycerin (NITROSTAT) 0.4 mg SL tabletIndications :Coronary artery disease involving sioux coronary artery of sioux heart without angina pectoris Place 1 tablet (0.4 mg total) under the tongue every 5 (five) minutes as needed for chest pain Up to 3 doses 25 tablet 4 Active lisinopriL (PRINIVIL,ZESTRIL ) 10 mg tabletIndications :Coronary artery disease involving sioux coronary artery of sioux heart without angina pectoris TAKE ONE TABLET [...] on file 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
--- OUTSIDE RECORDS SUMMARY | 2024-10-09 00:22 | XMS_ITS | Encounter Summary ---
Author Organization [facility] Address [address] [place] [address] Phone Care Team Providers Care Planer Setup Operator Name Role Phone Iker Feldman Primary Care Provider [phone] Juan Gresham MD Unavailable Hemant Delgado MD Unavailable Encounter Details Date Type Department Care Team (Late st Contact Info) Description 05/16/2021 Transcribe Orders [facility] Preop/Pacu II [address] [place] [address] Hemant Delgado MD [address] [address] Pre-op testing (Primary Dx) Social History Tobacco [...] COVID-19? No / Unsure 05/17/2021 11:10 AM CHEMIST PROTEINS documented as of this encounter Plan of Treatment Not on file documented as of this encounter Results * SARS-COV-2 BY MOLECULAR (05/17/2021 11:13 AM CHEMIST PROTEINS) SARSCOV2 NOT DETECTED (Referen ce Range for this test is Not Detected ) [facility] THERMOFISHER FAST DX 05/18/2021 11:52 AM CHEMIST PROTEINS [facility] Comment:This test was perfor med by a RT-PCR method. Other NASOPHARYNGEAL STRUCTURE / Unknown Non-Phlebotomy Collection / Unknown 05/17/2021 11:13 AM CHEMIST PROTEINS 05/17/2021 11:57 AM CHEMIST PROTEINS Narrative [facility] - 05/18/2021 11:52 AM CHEMIST PROTEINS Authorized Fact Sheets about this test for providers and patients are available at: https://www.fda.gov/medical-devices/meorsisgk-kzmrgxqtba-gdtiizi-devices/emergen cy-us e-authorizations us Hemant Delgado MD MICROBIOLOGY - GENERAL ORDERABLE S Final Result [facility] [address] [place] [address], documented in this encounter Visit Diagnoses Diagnosis Pre-op testing- Primary Preoperative examination, unspecified documented in this encounter Care Teams Planer Setup Operator Relationship Specialty Start Date End Date Iker Feldman [address] [place] [address] PCP - General Family Medicine 12/05/17 Juan Gresham MD [address] [facility] [place] [address] [place] [address] Cardiovascular Disease - Cardiology 12/05/17 Hemant Delgado MD #2 [facility], [address] [address] Consulting Physician Urology 01/19/22 documented as of this encounter
--- NOTE | 2024-10-09 06:04 | WPDHPUPDATE1 ---
History and Physical Update Update Date/Time: 10/09/24 06:04 History and Physical has been reviewed, including an updated exam of the patient. There are NO changes in the patient's condition. Risks, benefits, and alternatives have been discussed and questions answered. Patient agrees to proceed with procedure.
[2024-10-09] MEDS: LACTATED RINGERS 1,000 ML 30 ML IV CONT (10:00)
[2024-10-09] MEDS: SODIUM BICARBONATE TAB 650 MG TABLET 1300 MG PO (10:54)
--- NOTE | 2024-10-09 11:27 | P.PNAN_ITS ---
Anes - Initial Pre Proc Eval Procedure: Operation Date: 10/09/24 11:30 Proposed Procedures p Cystoscopy, Right Retrograde Pyelogram, Right Ureteroscopy, Jelmyto Instillation - Vlad Gilliam MD Date/Time: 10/09/24 11:27 Surgeon: Vlad Gilliam MD Pre Op Diagnosis: bladder CA Patient Data Age: 69 Gender: M Height: 1.73 m Weight: 73.4 kg Last Vital Signs Temp 97.4 F L 10/09/24 10:00 Pulse 53 L 10/09/24 10:00 Resp 16 10/09/24 10:00 BP 119/61 10/09/24 10:00 Pulse Ox 99 10/09/24 10:00 O2 Del Method Room Air 10/09/24 10:00 Allergies Allergy/AdvReac Type Severity Reaction Status Date / Time propoxyphene Allergy Intermediate Hives, Verified 10/09/24 09:56 N/V, Confusion Home Medications ?Medication ?Instructions ?Recorded ?Confirmed ?Type alprazolam 1 mg tablet (Xanax) 1 mg PO DAILY PRN Anxiety 09/14/20 10/08/24 History atorvastatin 40 mg tablet (Lipitor) 40 mg PO DAILY 09/14/20 10/09/24 History calcium phosphate,dibasic 77 50,000 tablet PO [id number] 09/14/20 10/08/24 History mg-vitamin D3 400 unit tablet carvedilol 3.125 mg tablet (Coreg) 3.125 mg PO BID 09/14/20 10/09/24 History clopidogrel 75 mg tablet (Plavix) 75 mg PO DAILY 09/14/20 10/09/24 History hydrocodone 10 mg-acetaminophen 1 tablet PO Q6-8H PRN Pain 09/14/20 10/08/24 History 325 mg tablet levothyroxine 88 mcg tablet 88 mcg PO DAILY 09/14/20 10/09/24 History (Synthroid) lisinopril 10 mg tablet (Zestril) 10 mg PO DAILY 09/14/20 10/09/24 History albuterol sulfate 90 mcg/actuation 2 puff inhalation QID PRN 05/03/21 10/08/24 History aerosol inhaler Shortness Of Breath nitroglycerin 0.4 mg sublingual 0.4 mg sublingual Q5-15M PRN Chest 05/03/21 10/08/24 History tablet Pain umeclidinium 62.5 mcg/actuation 1 inh inhalation DAILY 05/03/21 10/09/24 History blister powder for inhalation (Incruse Ellipta) aspirin 81 mg chewable tablet 81 mg PO DAILY 07/28/22 10/09/24 History pantoprazole 40 mg tablet,delayed 20 mg PO QAM 08/20/24 10/09/24 History release Patient hx anesthesia problems: none Family hx anesthesia problems: none Results Review: All pre-operative results and documents have been reviewed as part of the pre- operative evaluation. COUNT INCLUDES THE [facility] Past Medical History Medical History Non-cardiac chest pain Gastroesophageal reflux disease Chronic obstructive pulmonary disease ST elevation myocardial infarction (STEMI) (07/2012) Restless leg syndrome Hepatitis C virus infection resolved after antiviral drug therapy Bladder cancer Continuous tobacco abuse Coronary artery disease Hypothyroidism Essential hypertension Hyperlipidemia Anxiety and depression Surgical History Surgical History History of cystoscopy Abnormal cystoscopy x8 Right eye trauma History of cardiac catheterization (08/01/12) Aspiration thrombectomy, PTCA, stent x2 in overlapping fashion in major diagonal branch. Per Dr. Gresham. Family History Family History Mother Acute myocardial infarction Leukemia Father Colon cancer Sibling Heart problem Social History Social History Social History: Surrogate medical decision maker: Jodee Álvarez, spouse. Code status: Full code. Smoking packs per day: 1 Smoking cigarettes per day: 20.0 Years smoked: 30 Smoking pack-years: 30.00 Smoking status: Former smoker Tobacco type: cigarettes, pipe and cigars Second hand tobacco smoke exposure: Yes Smoking end date: 03/12/94 Additional smoking assessment comments: still smokes cigars and pipes no inhale Alcohol intake: current Drinks per week: 2 Alcohol use details: BEER Substance use: current Substance use type: marijuana Other substance usage details: 3 x weekly smokes it Last use: 12/25/22 Do You Feel Safe in your Home?: Yes Lack of Transportation: No Lack of Food: Never True Current Housing: I Have Housing Concerned About Future Housing: No Difficulty Paying Gas/Electric Bills: No Difficulty Paying for Meds: No Currently Unemployed: No Education: High School Diploma/GED Difficulty w/ Childcare or Family Care: No Living arrangements: with family Additional living arrangements comments: [place] Spiritual care concerns: No Anes - Eval Final PreProcedure Day of Procedure 10/09/24 11:27 Patient weight: normal Heart: regular rate and rhythm Lungs: clear to auscultation Airway: Mallampati scale class II Neurological: alert and oriented Last oral intake: >/= 8 hours ASA classification: III Emergent: no Anesthetic plan: proceed Anesthesia type and monitoring: general LMA and standard monitoring Results Review: All pre-operative results and documents have been reviewed as part of the pre- operative evaluation. Informed Consent: The patient's anesthetic plan and its attendant risks and benefits were discussed with the patient/family/POA. Questions were solicited and answers provided to the satisfaction of the patient/family/POA.
[2024-10-09] MEDS: ceFAZolin 2 GM in SODIUM CHLORIDE 0.9% IV 50 ML 100 ML IVPB (11:33)
[2024-10-09] MEDS: LIDOCAINE 2% GEL UROJET 10 ML PKG MUCOUS MEM (11:49)
[2024-10-09] MEDS: MITOMYCIN 28 MG URETHRAL (11:49)
--- NOTE | 2024-10-09 12:09 | W.PM.PROC2 ---
Procedure Note - Detailed Date of Procedure 10/09/24 Pre-op Diagnosis Right renal pelvic cancer Post-op Diagnosis Same Procedure Performed Cystoscopy, right retrograde pyelography, right Jelmyto installation Surgeon Vlad Gilliam MD Anesthesia General Description of Procedure Patient is brought to the operative suite where he was prepped and draped in routine sterile fashion while in dorsal lithotomy position after the uneventful induction of a general LMA anesthetic. A 19F rigid cystoscope was placed in the bladder. The bladder was carefully inspected. Mucosa is normal without hyperemia. There was no intravesical neoplasm. A 0.035 in glidewire was advanced in the right renal pelvis and a ureteral catheter was advanced over the guidewire. The retrograde pyelogram was obtained to ensure appropriate positioning of the ureteral catheter in the collecting system. Prior retrograde pyelography had determined a renal pelvic volume of 7cc. We opted to use that prior volume determination for today's instillation. After appropriate reconstitution of the Jelmyto in ice retrograde injection was undertaken through the same ureteral catheter positioned at the UPJ. A total of 7mL (28 mg) of Jelmyto was instilled in the renal pelvis without incident. The volume of Jelmyto wasted was 13 mL (52 mg). the ureteral catheter was allowed to stand for 60 seconds and then removed with ease. Because the patient has no history of ureteral stricture I opted not to place a ureteral stent. Patient tolerated the procedure well was taken to the recovery room in good condition. Pathology None sent Complications No immediate complications
== END 2024-10-09 13:16 | disposition home or self-care (01) ==
PROVIDERS: PCP Emergency Medicine; Visit Provider Urology
PROC: (CPT 52352; principal; 2024-10-09 11:30)
DX: C65.1 Malignant neoplasm of right renal pelvis (principal); Z72.0 Tobacco use; F12.90 Cannabis use, unspecified, uncomplicated
CPT/HCPCS: C9789; 74420; J0690; A9270; C1758; C1769; J2003; J2405; J2704; J3010; J7120; J9281; Q9966

== ENCOUNTER 2024-10-16 02:52 | Day surgery (SDC) | payer MEDICARE, MEDICAID, SELFPAY ==
[2024-10-08 12:31] VITALS: BMI 23.8
--- NOTE | 2024-10-08 12:47 | PC.NURSE ---
Report to the Outpatient Waiting Room, entrance under the green pavilion located off [facility], at time _10:00am on date _10/16/24 . Planned Procedure Time: _12:00pm .? Time changes happen often and if your time is changed the preop area will call you the afternoon before. - You and your visitor will be asked to self-screen and do not enter if you have any COVID symptoms. Please call surgeon if you need to reschedule. - A mask is optional within the hospital at this time. Patients may have clear liquids (water, carbonated beverages, clear teas, apple juice) until 3 hours prior to surgery with a maximum of 20 ounces. - No food from midnight until time of surgery and no smoking, or chewing tobacco (or any form of nicotine). No chewing gum, candy or mints. (0900am) Take only the following medications with a SIP of water on the morning of surgery: __Coreg, Levothyroxine, Ellipta Inhaler, Xanax if needed, Hydrocodone if needed DO NOT STOP ANY OF YOUR OTHER PRESCRIPTION MEDICATIONS PRIOR TO SURGERY EXCEPT THE FOLLOWING Hold all vitamins and supplements for [address] Gilliam except Calcium, per states. Medications to discontinue per physician Pt to cont to hold Plavix and Aspirin during thoroughout these treatments per Dr Gresham/Tawana Date to take last dose____was 09/30/24 Please no make-up, nail upper sorbian, hairspray, perfume, deodorant, or body powder the day of surgery.? No jewelry (including any body piercings) or valuables the day of surgery, leave them at home.? Please take a shower or bath the night before, or the morning of, surgery with an antibacterial soap.? Wear comfortable, loose fitting clothing.? - Jewelry must be removed prior to entering the operating room.? Rings and piercings that are not removed may be cut off. - The hospital will not accept responsibility for valuables.? - Please leave all valuables, including medications, at home the day of surgery. If you are going home after surgery, a licensed concrete truck driver must drive you home.? - NO public transportation without another adult if you receive anesthesia. - We recommend that an adult stay with you for 24 hours following discharge. - We also recommend that you do not drive, make important decision, drink alcoholic beverages, or take any drugs that were not prescribed by your health care provider for at least 24 hours after your discharge time. Follow any additional instructions given to you from your surgeon. Telephone instructions given to ___Wife Raven and Pt and asked if any additional questions and then verbalized understanding. Patient advised to call surgeon office or pre surgery nurse liaison [phone] if any additional questions.
--- NOTE | ~2024-10-16 | XR_ITS ---
XR retrograde pyelogram RT Indication: Right retrograde pyelogram TECHNIQUE: Fluoroscopy used during Right retrograde pyelogram performed by [Iris Ewing] on 10/16/2024. 23 seconds of fluoroscopy with 41 fluoroscopic images captured. FINDINGS: Correlate with procedure note. IMPRESSION: Fluoroscopy used during Right retrograde pyelogram. Reviewed, dictated and finalized at location A.
--- OUTSIDE RECORDS SUMMARY | 2024-10-16 02:54 | XMS_ITS | Encounter Summary ---
Author Organization [facility] Address [address] [place] [address] Phone Care Team Providers Care Head Grinder Name Role Phone Iker Feldman Primary Care Provider [phone] Juan Gresham MD Unavailable Hemant Delgado MD Unavailable Encounter Details Date Type Department Care Team (Late st Contact Info) Description 04/26/2021 Transcribe Orders [facility] Preop/Pacu II 1 [place] [address] Hemant Delgado MD #[address] [address] Pre-op testing (Primary Dx) Social History Tobacco [...] COVID-19? 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 [address] [place] [address] Consulting Physician Urology 01/19/22 documented as of this encounter
--- OUTSIDE RECORDS SUMMARY | 2024-10-16 02:54 | XMS_ITS | Encounter Summary ---
Author Organization [facility] Address [address] [place] [address] Phone Care Team Providers Care Psychologist Personnel Name Role Phone Iker Feldman Primary Care Provider [phone] Juan Gresham MD Unavailable Hemant Delgado MD Unavailable Encounter Details Date Type Department Care Team (Late st Contact Info) Description 03/29/2021 Transcribe Orders [facility] Preop/Pacu II 1 [place] [address] Hemant Delgado MD #[address] [address] Pre-op testing (Primary Dx) Social History Tobacco [...] COVID-19? No / Unsure 03/29/2021 2:12 PM SPINNING DOFFER documented as of this encounter Plan of Treatment Not on file documented as of this encounter Results * SARS-COV-2 BY MOLECULAR (04/25/2021 7:54 AM SPINNING DOFFER) SARSCOV2 NOT DETECTED (Referen ce Range for this test is Not Detected ) [facility] THERMOFISHER FAST DX 04/25/2021 6:50 PM SPINNING DOFFER [facility] Comment:This test was perfor med by a RT-PCR method. Other NASOPHARYNGEAL STRUCTURE / Unknown Non-Phlebotomy Collection / Unknown 04/25/2021 7:54 AM SPINNING DOFFER 04/25/2021 8:44 AM SPINNING DOFFER Narrative [facility] - 04/25/2021 6:50 PM SPINNING DOFFER Authorized Fact Sheets about this test for providers and patients are available at: https://www.fda.gov/medical-devices/qhgpqizcv-etmcyjzyxk-mzcafql-devices/emergen cy-us e-authorizations us Hemant Delgado MD MICROBIOLOGY - GENERAL ORDERABLE S Final Result [facility] [address] [place] [address], documented in this encounter Visit Diagnoses Diagnosis Pre-op testing- Primary Preoperative examination, unspecified documented in this encounter Care Teams Psychologist Personnel Relationship Specialty Start Date End Date Iker Feldman [address] [place] [address] PCP - General Family Medicine 12/05/17 Juan Gresham MD [address] [facility] [place] [address] [place] [address] Cardiovascular Disease - Cardiology 12/05/17 Hemant Delgado MD #2 [facility], [address] [address] Consulting Physician Urology 01/19/22 documented as of this encounter
--- OUTSIDE RECORDS SUMMARY | 2024-10-16 02:54 | XMS_ITS | Encounter Summary ---
Author Organization [facility] Address [address] [place] [address] Phone Care Team Providers Care Head Swamper Name Role Phone Gaston Iker Primary Care Provider [phone] Juan Gresham MD Unavailable Hemant Delgado MD Unavailable Reason for Referral * Radiology Services (Routine) - Closed Specialty Diagnoses / Procedures Referred By Contac t Referred To Contact Radiology Diagnoses Pre-op testing Procedures EKG 12 LEAD Laurent Abebe APRN, CRNA #1 [place] [address] Phone: tel: fax: Referral ID Status Reason Start Date Expiration Date Visits Re quested Visits Authorized [id number] Closed 03/29/2021 1 1 UNTS EXECUTIVE Encounter Details Date Type Department Care Team (Late st Contact Info) Description 03/29/2021 Transcribe Orders [facility] Preop/Pacu II 1 [place] [id number] Laurent Abebe APRN, CRNA #1 [place] [address] Pre-op testing (Primary Dx) Social History Tobacco [...] COVID-19? No / Unsure 03/29/2021 2:12 PM ACCOUNTS EXECUTIVE documented as of this encounter Plan of Treatment Not on file documented as of this encounter Results * HEMOGLOBIN & HEMATOCRIT (H&H) (04/25/2021 7:56 AM ACCOUNTS EXECUTIVE) HEMOGLOBIN (HGB) 14.7 13.0 - 16.5 g/dL 04/25/2021 8:12 AM ACCOUNTS EXECUTIVE [facility] HEMATOCRIT (HCT) 44.9 38.0 - 50.0 % 04/25/2021 8:12 AM ACCOUNTS EXECUTIVE [facility] Blood Venipuncture / Unknown 04/25/2021 7:56 AM ACCOUNTS EXECUTIVE 04/25/2021 8:07 AM ACCOUNTS EXECUTIVE us Laurent Nathanatzmarek ENVIRONMENTAL RESOURCE SPECIALIST, PROGRAMMING SPECIALIST HEMATOLOGY ORDERAB LES Final Result [facility] [address] [place] [address] * (ABNORMAL) BASIC METABOLIC PANEL W/ CALCIUM TOTAL (04/25/2021 7:56 AM ACCOUNTS EXECUTIVE) SODIUM 133(L) 136 - 144 mmol/L 04/25/2021 8:32 AM ACCOUNTS EXECUTIVE [facility] POTASSIUM 4.6 3.5 - 5.1 mmol/L 04/25/2021 8:32 AM [facility] CHLORIDE 99(L) 100 - 110 mmol/L 04/25/2021 8:32 AM [facility] CO2, VENOUS 27 22 - 32 mmol/L 04/25/2021 8:32 AM [facility] ANION GAP 11.6 8.0 - 20.0 mmol/L 04/25/2021 8:32 AM [facility] GLUCOSE 111(H) 70 - 99 mg/dL 04/25/2021 8:32 AM ACCOUNTS EXECUTIVE [facility] BUN 11 8 - 23 mg/dL 04/25/2021 8:32 AM [facility] CREATININE, BLOOD 0.90 0.80 - 1.30 mg/dL 04/25/2021 8:32 AM [facility] BUN/CREATININE RATIO 12 12 - 20 ratio 04/25/2021 8:32 AM [facility] CALCIUM 9.4 8.9 - 10.3 mg/dL 04/25/2021 8:32 AM [facility] GFR, EST. NONAFRICAN >60 >=60 04/25/2021 8:32 AM [facility] GFR, EST. >60 >=60 04/25/2021 8:32 AM [facility] Comment: Creatinine Clearance is the preferred criteria for selecting drug dose adjustments in renally impaired patients. The GFR is provided as additional pertinent clinical information. GFR is reported in mL/min/1.73 sq m. IS THE PATIENT REQUIRED TO BE FASTING? No 04/25/2021 8:32 AM [facility] Blood Venipuncture / Unknown 04/25/2021 7:56 AM ACCOUNTS EXECUTIVE 04/25/2021 8:07 AM ACCOUNTS EXECUTIVE us Laurent Etelvina Purchatzke ENVIRONMENTAL RESOURCE SPECIALIST, PROGRAMMING SPECIALIST CHEMISTRY ORDERABL ES Final Result [facility] [address] [place] [address] * EKG 12 LEAD (04/25/2021 7:43 AM ACCOUNTS EXECUTIVE) Ventricular Rate BPM EXTERNAL EKG Atrial Rate BPM EXTERNAL EKG P-R Interval 194 ms EXTERNAL EKG QRS Duration 100 ms EXTERNAL EKG Q-T Duration 472 ms EXTERNAL EKG QTC CALCULATION 427 ms EXTERNAL EKG P Latexo 79 degrees EXTERNAL EKG R [place] 49 degrees EXTERNAL EKG T [place] 67 degrees EXTERNAL EKG 04/25/2021 7:43 AM ACCOUNTS EXECUTIVE Impressions EXTERNAL EKG - 04/25/2021 9:08 AM ACCOUNTS EXECUTIVE Sinus bradycardia Abnormal R wave progression (?ASMI [...] significant changes noted Confirmed by Lauren Mahmood [id number] on 04/25/2021 9:08:06 AM us Laurent Abebe ENVIRONMENTAL RESOURCE SPECIALIST, PROGRAMMING SPECIALIST IMG ECG ORDERABLES Final Result EXTERNAL EKG documented in this encounter Visit Diagnoses Diagnosis Pre-op testing- Primary Preoperative examination, unspecified Pre-op testing Preoperative examination, unspecified documented in this encounter Care Teams Head Swamper Relationship Specialty Start Date End Date Iker Feldman [address] [place] [address] PCP - General Family Medicine 12/05/17 Juan Gresham MD [address] [facility] C [facility] [address] [place] [address] Cardiovascular Disease - Cardiology 12/05/17 Hemant Delgado MD #[address] [address] Consulting Physician Urology 01/19/22 documented as of this encounter
--- OUTSIDE RECORDS SUMMARY | 2024-10-16 02:55 | XMS_ITS | Clinical Summary ---
Author Organization [facility] Address [address] [place] [address] Phone Care Team Providers Care Gun Profiler Name Role Phone Iker Feldman Primary Care Provider [phone] Juan Gresham MD Unavailable Hemant Delgado MD [...] minutes as needed. Active ergocalciferol (VITAMIN D) 76508 UNIT Capsule Take 1 Capsule by mouth. [...] Comments Blood Pressure 138/74 01/19/2022 8:[address] TECH Pulse 54 01/19/2022 8:[address] TECH Temperature 36.4 C (97.6 F) 01/19/2022 8:[address] TECH Respiratory Rate 18 01/19/2022 8:[address] TECH Oxygen Saturation 98% 01/19/2022 8:[address] TECH Inhaled Oxygen Concentration - - Weight 72.2 kg (159 lb 3.2 oz) 01/19/2022 8:[address] TECH Height 174 cm (5' 8.5) 09/16/2021 11:49 [...] this topic Medical Devices Implanted Type Area Inspector Air Carrier Device Identifier Shelf Expiration Date Model / Serial / Lot Stent Ureteral 6fr 2.1fr 26cm 2 Pigtail Curve 2 Durometer Taper Tip Loprfl Graduated Polaris Ultra - [id number] Implanted:Qty : 1 on 03/19/2018 by Viviana Junior MD at [facility] IMPLANT Right: Ureter [employer] 10/03/2020 [id number] 0 / [id number] 0 / [id number] Stent Ureteral 6fr 2.1fr 24cm 2 Pigtail Curve 2 Durometer Taper Tip Loprfl Graduated Polaris Ultra - [id number] Implanted:Qty : 1 on 04/29/2021 by Hemant Delgado MD at [facility] IMPLANT Left: Ureter [employer] 01/12/2024 [id number] 0 / [id number] 0 / [id number] Stent Ureteral 6fr 2.1fr 24cm 2 Pigtail Curve 2 Durometer Taper Tip Loprfl Graduated Polaris Ultra - [id number] Implanted:Qty : 1 on 05/20/2021 by Hemant Delgado MD at [facility] IMPLANT Left: Ureter [employer] 02/04/2024 [id number] 0 / [id number] 0 / [id number] Stent Ureteral 6fr 2.1fr 24cm 2 Pigtail Curve 2 Durometer Taper Tip Loprfl Graduated Polaris Ultra - [id number] Implanted:Qty : 1 on 05/20/2021 by Hemant Delgado MD at [facility] IMPLANT Right: Ureter [employer] 02/04/2024 [id number] 0 / [id number] 0 / [id number] Stent Ureteral 6fr 2.1fr 28cm 2 Pigtail Curve 2 Durometer Taper Tip Loprfl Graduated Polaris Ultra - [id number] Implanted:Qty : 1 on 09/09/2021 by Hemant Delgado MD at [facility] IMPLANT Right: Ureter [employer] 02/08/2024 [id number] 0 / [id number] 0 / [id number] Explanted Type Area Inspector Air Carrier Device Identifier Shelf Expiration Date Model / Serial / Lot Stent Ureteral 6fr 2.1fr 24cm 2 Pigtail Curve 2 Durometer Taper Tip Loprfl Graduated [employer] Ultra - [id number] Implanted:Qty : 1 on 04/29/2021 by [facility] Explanted:Qty : 1 on 05/20/2021 by [facility] IMPLANT Right: Ureter [employer] 01/12/2024 [id number] 0 / [id number] 0 / [id number] Procedures Procedure Name Priority Date/Time Associated Diagnosis Comments PSA SCREEN Routine 09/18/2017 from Last 3 Months or Most Recently Relevant to Health Maintenance Results * PSA SCREEN (09/18/2017) PSA (PROSTATE SPECIFIC ANTIGEN) 0.4 ng/mL Blood specimen (specimen) 09/18/2017 Evaristo Ladd MD CHEMISTRY ORDERABLES Edited Res ult - Final from Last 3 Months or Most Recently Relevant to Health Maintenance Insurance [place], [place] [id number] [place] [address] Advance Directives Documents on File Type Date Recorded Patient Pipe Line Gauger Expl anation Other Advance Directive 09/21/2021 3:35 [...] Medical Clearance fo r surgery Care Teams Gun Profiler Relationship Specialty Start Date End Date Feldman Iker [address] [place] [address] PCP - General Family Medicine 12/05/17 Juan Greshma MD [address] [facility] [address] [place] [address] Cardiovascular Disease - Cardiology 12/05/17 Hemant Delgado MD #2 [facility] [address] [place] [address] Consulting Physician Urology 01/19/22
--- OUTSIDE RECORDS SUMMARY | 2024-10-16 02:55 | XMS_ITS | Encounter Summary ---
Author Organization [facility] Address [address] [place] [address] Phone Care Team Providers Care Brake Engineer Name Role Phone Iker Feldman Primary Care Provider [phone] Juan Gresham MD Unavailable Hemant Delgado MD Unavailable Encounter Details Date Type Department Care Team (Late st Contact Info) Description 03/29/2021 [facility] 1 [place] [id number] Hemant Delgado MD #[address] [address] Social History Tobacco Use Types Packs/Day Years [...] COVID-19? No / Unsure 03/29/2021 2:12 PM GARNISHER documented as of this encounter Plan of Treatment Not on file documented as of this encounter Visit Diagnoses Not on filedocumented in this encounter Care Teams Brake Engineer Relationship Specialty Start Date End Date Iker Feldman [address] [facility] [place] [place] [address] PCP - General Family Medicine 12/05/17 Juan Gresham MD [address] [facility] [address] [place] [address] Cardiovascular Disease - Cardiology 12/05/17 Hemant Delgado MD #2 [facility] [address] [place] [address] Consulting Physician Urology 01/19/22 documented as of this encounter
--- OUTSIDE RECORDS SUMMARY | 2024-10-16 02:55 | XMS_ITS | Encounter Summary ---
Author Organization [facility] Address [address] [place] [address] Phone Care Team Providers Care Worship Leader Name Role Phone Iker Feldman Primary Care Provider [phone] Juan Gresham MD Unavailable Hemant Delgado MD Unavailable Encounter Details Date Type Department Care Team (Late st Contact Info) Description 05/16/2021 Transcribe Orders [facility] Preop/Pacu II [address] [place] [address] Hemant Delgado MD #[address] [address] Pre-op testing (Primary Dx) Social History Tobacco [...] COVID-19? 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 Other NASOPHARYNGEAL STRUCTURE / Unknown Non-Phlebotomy Collection / Unknown 05/17/2021 11:13 AM ASSISTANT INFANT TODDLER TEACHER 05/17/2021 11:57 AM ASSISTANT INFANT TODDLER TEACHER Narrative [facility] - 05/18/2021 11:52 AM ASSISTANT INFANT TODDLER TEACHER Authorized Fact Sheets about this test for providers and patients are available at: https://www.fda.gov/medical-devices/khetlrbex-bykwqjpsue-puitnuo-devices/emergen cy-us e-authorizations us Hemant Delgado MD MICROBIOLOGY - GENERAL ORDERABLE S Final Result [facility] [address] [place] [address], documented in this encounter Visit Diagnoses Diagnosis Pre-op testing- Primary Preoperative examination, unspecified documented in this encounter Care Teams Worship Leader Relationship Specialty Start Date End Date Iker Feldman [address] [place] [address] PCP - General Family Medicine 12/05/17 Juan Gresham MD [address] [facility] [place] [address] [place] [address] Cardiovascular Disease - Cardiology 12/05/17 Hemant Delgado MD #2 [facility], [address] [address] Consulting Physician Urology 01/19/22 documented as of this encounter
--- OUTSIDE RECORDS SUMMARY | 2024-10-16 02:55 | XMS_ITS | Continuity of Care Document ---
Author Organization [facility] Address [address] [place] [address] [place] [address] Phone Care Team Providers Care Reimbursement Auditor Name Role Phone Iker Feldman MD Unavailable [...] and anxiety, avoid driving or operate machines levofloxacin 250 mg tablet take 1 tablet by oral route every day 250 MG - Active Incruse Ellipta 62.5 mcg/actuation powder for inhalation [...] Copied on Encounter OFFICE/OUTPA TIENT VISIT, EST [facility] [place], [address], [place], [place], [address], [place] tel:[phone] [facility] [place] pain (chief complaint)anemi a1 (chief complaint)uTI1 (chief complaint) Chronic pain syndromeOther insomniaAnemia Acute cystitis with hematuria 5 Gaston Pickett [address], [place], [place], [address] , [place]. tel:[phone] OFFICE/OUTPA TIENT VISIT, EST [facility] [place], [address], [place], [place], [address], [place] tel:[phone] [facility] [place] pain (chief complaint)anxie ty1 (chief complaint)anemi a1 (chief complaint)bladd er CA (chief complaint) AnemiaChronic pain syndromeMalign ant neoplasm of bladder, unspecifiedOth er insomnia 5 Gaston Pickett [address], [place], [place], [address] , [place]. tel:[phone] PREV VISIT, EST, 65 & OVER [facility], [address], [place], [place], [address], [place] tel:[phone] [facility] [place] physical (chief complaint) Centrilobular emphysemaChron ic pain syndromeMalign ant neoplasm of bladder, unspecifiedHyp othyroidismMix ed hyperlipidemia Encounter for general adult medical exam w abnormal findingsCorona ry artery disease of teller coronary artery w/o angina pectorisGERD without esophagitis 5 Gaston Pickett [address], [place], [place], [address] , [place]. tel:[phone] OFFICE/OUTPA TIENT VISIT, [facility], [address], [place], [place], [address], [place] tel:[phone] [facility] [place] pain (chief complaint)anxie ty1 (chief complaint)COPD1 (chief complaint) Chronic pain syndromePrimar y insomniaCentri lobular emphysemaPerso nal history of nicotine dependenceMali gnant neoplasm of bladder, unspecified July-0 8- 5 Feldman Iker. [address], [place], [place], [address] , [place]. [phone] OFFICE/OUTPA TIENT VISIT, [facility], [address], [place], [place], [address], [place] tel:[phone] [facility] [place] pain (chief complaint)anxie ty1 (chief complaint) Chronic pain syndromePrimar y insomnia Apr-0 7- 5 Gaston Dong. [address], [place], [place], [address] , [place]. tel:[phone] OFFICE/OUTPA TIENT VISIT, [facility], [address], [place], [place], [address], [place] tel:[phone] [facility] [place] pain (chief complaint)anxie ty1 (chief complaint) Chronic pain syndromePrimar y insomnia May-0 4-202 5 Gaston Dong. [address], [place], [place], [address] , [place]. [phone] OFFICE/OUTPA TIENT VISIT, [facility], [address], [place], [place], [address], [place] tel:[phone] [facility] [place] pain (chief complaint)anxie ty1 (chief complaint)COPD1 (chief complaint) Chronic pain syndromeCentri lobular emphysemaPrima ry insomnia Feb-0 6-202 5 Feldman Iker. [address], [place], [place], [address] , [place]. tel:[phone] OFFICE/OUTPA TIENT VISIT, [facility], [address], [place], [place], [address], [place] tel:[phone] [facility] Medicine pain (chief complaint)anxie ty1 (chief complaint)thyro id1 (chief complaint) Chronic pain syndromePrimar y insomniaHypoth yroidism 5 Gaston Dong. [address], [place], [place], [address] , [place]. tel:[phone] OFFICE/OUTPA TIENT VISIT, [facility], [address], [place], [place], [address], [place] tel:[phone] [facility] Medicine pain (chief complaint)anxie ty1 (chief complaint) Chronic pain syndromePrimar y insomnia 4 Gaston Dong. [address], [place], [place], [address] , [place]. tel:[phone] OFFICE/OUTPA TIENT VISIT, [facility], [address], [place], [place], [address], [place] tel:[phone] [facility] [place] pain (chief complaint)anxie ty1 (chief complaint)COPD1 (chief complaint) Chronic pain syndromePrimar y insomniaCentri lobular emphysema 4 Gaston Dong. [address], [place], [place], [address] , [place]. tel:[phone] OFFICE/OUTPA TIENT VISIT, [facility], [address], [place], [place], [address], [place] tel:[phone] [facility] [place] pain (chief complaint)anxie ty1 (chief complaint) Chronic pain syndromePrimar y insomnia 4 Gaston Dong. [address], [place], [place], [address] , [place]. tel:[phone] OFFICE/OUTPA TIENT VISIT, [facility], [address], [place], [place], [address], [place] tel:[phone] [facility] Medicine pain (chief complaint)anxie ty1 (chief complaint) Chronic pain syndromePrimar y insomnia 4 Feldman Iker. [address], [place], [place], [address] , [place]. tel:[phone] OFFICE/OUTPA TIENT VISIT, [facility], [address], [place], [place], [address], [place] tel:[phone] [facility] [place] pain (chief complaint)anxie ty1 (chief complaint)COPD1 (chief complaint) Centrilobular emphysemaChron ic pain syndromePrimar y insomnia 4 Feldman Iker. [address], [place], [place], [address] , [place]. tel:[phone] OFFICE/OUTPA TIENT VISIT, [facility], [address], [place], [place], [address], [place] tel:[phone] [facility] [place] pain (chief complaint)anxie ty1 (chief complaint) Chronic pain syndromePrimar y insomnia 4 Feldman Iker. [address], [place], [place], [address] , [place]. tel:[phone] OFFICE/OUTPA TIENT VISIT, [facility], [address], [place], [place], [address], [place] tel:[phone] [facility] [place] pain (chief complaint)anxie ty1 (chief complaint)COPD1 (chief complaint)bladd er Ca (chief complaint) Centrilobular emphysemaChron ic pain syndromePrimar y insomniaMalign ant neoplasm of bladder, unspecified 4 Feldman Iker. [address], [place], [place], [address] , [place]. tel:[phone] OFFICE/OUTPA TIENT VISIT, [facility], [address], [place], [place], [address], [place] tel:[phone] [facility] [place] pain (chief complaint)anxie ty (chief complaint)thyro id1 (chief complaint)HLP (chief complaint) Chronic pain syndromeHypoth yroidismMixed hyperlipidemia Primary insomniaCentri lobular emphysema July- 4 Gaston Dong. [address], [place], [place], [address] , [place]. tel:[phone] PREV VISIT, EST, 65 & OVER [facility] [place], [address], [place], [place], [address], [place] tel:[phone] [facility] [place] physical (chief complaint) Encounter for general adult medical exam w abnormal findingsCentri lobular emphysemaChron ic pain syndromePrimar y insomniaHypoth yroidismMalign ant neoplasm of bladder, unspecifiedGER D w/o esophagitisCor onary artery disease of teller coronary artery w/o angina pectoris Jun- 4 Gaston Dong. [address], [place], [place], [address] , [place]. [phone] OFFICE/OUTPA TIENT VISIT, [facility], [address], [place], [place], [address], [place] tel:[phone] [facility] [place] pain (chief complaint)anxie ty1 (chief complaint) Chronic pain syndromePrimar y insomnia May- 4 Gaston Dong. [address], [place], [place], [address] , [place]. [phone] OFFICE/OUTPA TIENT VISIT, [facility], [address], [place], [place], [address], [place] tel:[phone] [facility] [place] pain (chief complaint)anxie ty1 (chief complaint)COPD1 (chief complaint) Centrilobular emphysemaChron ic pain syndromePrimar y insomnia Apr- 4 Gaston Dong. [address], [place], [place], [address] , [place]. tel:[phone] OFFICE/OUTPA TIENT VISIT, [facility], [address], [place], [place], [address], [place] tel:[phone] [facility] [place] pain (chief complaint)anxie y1 (chief complaint)hypot hyroidism1 (chief complaint) Hypothyroidism Chronic pain syndromePrimar y insomnia Mar- 4 Feldman Iker. [address], [place], [place], [address] , [place]. tel:[phone] OFFICE/OUTPA TIENT VISIT, [facility], [address], [place], [place], [address], [place] tel:[phone] [facility] pain (chief complaint)anxie ty1 (chief complaint) Chronic pain syndromePrimar y insomnia Feb- 3 Gaston Dong. [address], [place], [place], [address] , [place]. tel:[phone] OFFICE/OUTPA TIENT VISIT, [facility], [address], [place], [place], [address], [place] tel:[phone] [facility] [place] pain (chief complaint)pain (chief complaint)anxie ty1 (chief complaint) Chronic pain syndromePrimar y insomnia Jan- 3 Gaston Dong. [address], [place], [place], [address] , [place]. tel:[phone] OFFICE/OUTPA TIENT VISIT, [facility], [address], [place], [place], [address], [place] tel:[phone] [facility] [place] pain (chief complaint)anxie ty1 (chief complaint) Chronic pain syndromePrimar y insomnia Jan-0 3 Gaston Iker. [address], [place], [place], [address] , [place]. tel:[phone] OFFICE/OUTPA TIENT VISIT, [facility], [address], [place], [place], [address], [place] tel:[phone] [facility] Medicine pain (chief complaint)anxie ty1 (chief complaint)hypot hyroidism1 (chief complaint) Chronic pain syndromePrimar y insomniaHypoth yroidism 3 Gaston Dong. [address], [place], [place], [address] , [place]. tel:[phone] OFFICE/OUTPA TIENT VISIT, [facility], [address], [place], [place], [address], tel:[phone] [facility] [place] pain (chief complaint)anxie ty1 (chief complaint) Chronic pain syndromePrimar y insomnia Sep-0 3 Gaston Dong. [address], [place], [place], [address] , [place]. tel:[phone] OFFICE/OUTPA TIENT VISIT, [facility], [address], [place], [place], [address], [place] tel:[phone] [facility] [place] PAIN (chief complaint)anxie ty1 (chief complaint)bladd er CA1 (chief complaint) Chronic pain syndromePrimar y insomniaMalign ant neoplasm of bladder, unspecifiedAcq uired renal cystCentrilobu lar emphysema Oct- 3 Gaston Dong. [address], [place], [place], [address] , [place]. tel:[phone] OFFICE/OUTPA TIENT VISIT, [facility], [address], [place], [place], [address], [place] tel:[phone] [facility] [place] pain (chief complaint)anxie ty1 (chief complaint)GERD1 (chief complaint) Cervantes's esophagus without dysplasiaChron ic pain syndromePrimar y insomnia Sep-0 3 Gaston Dong. [address], [place], [place], [address] , [place]. tel:[phone] OFFICE/OUTPA TIENT VISIT, [facility], [address], [place], [place], [address], [place] tel:[phone] [facility] [place] pain (chief complaint)anxie ty1 (chief complaint)hemae mesis1 (chief complaint)kidne y tumor1 (chief complaint) HematemesisChr onic pain syndromePrimar y insomniaMalign ant neoplasm of bladder, unspecified Bebeto-0 3 Gaston Dong. [address], [place], [place], [address] , . tel:[phone] OFFICE/OUTPA TIENT VISIT, EST [facility] [place], [address] [place], [place], [address], tel:[phone] [facility] [place] hematemesis1 (chief complaint) HematemesisBar rett's esophagus without dysplasiaAther osclerotic heart disease of teller coronary artery without angina pectoris 3 Gaston Pickett [address], [place], [place], [address] , [place]. tel:[phone] OFFICE/OUTPA TIENT VISIT, EST [facility] [place], [address], [place], [place], [address], tel:[phone] [facility] [place] pain (chief complaint)insom nia1 (chief complaint) Chronic pain syndromePrimar y insomnia 3 Gaston Dong. [address], [place], [place], [address] , [place]. tel:[phone] PREV VISIT, EST, 65 & OVER [facility] [place], [address], [place], [place], [address], [place] tel:[phone] [facility] [place] physical (chief complaint) Encounter for general adult medical exam w abnormal findingsHypoth yroidismChroni c pain syndromeCentri lobular emphysemaEleva palomo prostate specific antigen [PSA]Asymptoma tic microscopic hematuriaMixed hyperlipidemia Cervantes's esophagus without dysplasiaPrima ry insomnia 3 Gaston Pickett [address], [place], [place], [address] , [place]. tel:[phone] OFFICE/OUTPA TIENT VISIT, EST [facility] [place], [address], [address], [place] tel:[phone] [facility] [place] pain (chief complaint)insom nia1 (chief complaint)HTN (chief complaint)thyro id1 (chief complaint)bladd er CA (chief complaint) Chronic pain syndromePrimar y insomniaHypoth yroidismEssent ial (primary) hypertensionMi xed hyperlipidemia Malignant neoplasm of bladder, unspecified 3 Gaston Dong. [address], [place], [place], [address] , [place]. tel:[phone] OFFICE/OUTPA TIENT VISIT, [facility], [address], [place], [place], [address], [place] tel:[phone] [facility] [place] pain (chief complaint)insom nia1 (chief complaint)kidne y1 (chief complaint)COPD1 (chief complaint) Chronic pain syndromePrimar y insomniaOther specified disorder of kidneyCentrilo bular emphysema 3 Gaston Dong. [address], [place], [place], [address] , [place]. tel:[phone] OFFICE/OUTPA TIENT VISIT, [facility], [address], [place], [place], [address], [place] tel:[phone] [facility] Medicine pain (chief complaint)insom nia1 (chief complaint)tobac co1 (chief complaint)bladd er CA1 (chief complaint) Chronic pain syndromePrimar y insomniaMalign ant neoplasm of bladder, unspecifiedTob acco use 3 Gaston Dong. [address], [place], [place], [address] , [place]. tel:[phone] OFFICE/OUTPA TIENT VISIT, [facility], [address], [address], [place] tel:[phone] [facility] Medicine pain (chief complaint)insom nia1 (chief complaint) Chronic pain syndromePrimar y insomnia 2 Gaston Dong. [address], [place], [place], [address] , [place]. tel:[phone] OFFICE/OUTPA TIENT VISIT, [facility], [address], [place], [place], [address], [place] tel:[phone] [facility] Medicine pain (chief complaint)insom nia1 (chief complaint) Chronic pain syndromePrimar y insomnia 2 Gaston Dong. [address], [place], [place], [address] , [place]. tel:[phone] OFFICE/OUTPA TIENT VISIT, [facility], [address], [place], [place], [address], [place] tel:[phone] [facility] [place] pain (chief complaint)insom nia1 (chief complaint)barre tt1 (chief complaint) Chronic pain syndromePrimar y insomniaBarret t's esophagus without dysplasiaMalig nant neoplasm of bladder, unspecified 2 Gaston Dong. [address], [place], [place], [address] , [place]. tel:[phone] OFFICE/OUTPA TIENT VISIT, [facility], [address], [place], [place], [address], [place] tel:[phone] [facility] [place] pain (chief complaint)insom nia1 (chief complaint)COPD1 (chief complaint)thyro id1 (chief complaint) Chronic pain syndromeBarret t's esophagus without dysplasiaPrima ry insomniaHypoth yroidismCentri lobular emphysema 2 Gaston Dong. [address], [place], [place], [address] , [place]. tel:[phone] OFFICE/OUTPA TIENT VISIT, [facility], [address], [address], [place] tel:[phone] [facility] Medicine pain (chief complaint)insom nia1 (chief complaint)CAD (chief complaint) Coronary artery disease of teller coronary artery w/o angina pectorisChroni c pain syndromePrimar y insomnia 2 Gaston Dong. [address], [place], [place], [address] , [place]. tel:[phone] OFFICE/OUTPA TIENT VISIT, [facility], [address], [place], [place], [address], [place] tel:[phone] [facility] Medicine pain (chief complaint)insom nia1 (chief complaint) Chronic pain syndromePrimar y insomnia 2 Feldman Iker. [address], [place], [place], [address] , [place]. tel:[phone] OFFICE/OUTPA TIENT VISIT, [facility], [address], [place], [place], [address], [place] tel:[phone] [facility] [place] pain (chief complaint)insom nia1 (chief complaint) Chronic pain syndromePrimar y insomnia Aug- 2 Feldman Iker. [address], [place], [place], [address] , [place]. tel:[phone] OFFICE/OUTPA TIENT VISIT, [facility], [address], [place], [place], [address], [place] tel:[phone] [facility] [place] pain (chief complaint)insom nia1 (chief complaint)[place] tt1 (chief complaint)renal CA (chief complaint) Polyp of colonBarrett's esophagus without dysplasiaInsom niaChronic pain syndromeCa of left kidney, except renal pelvis 2 Feldman Iker. [address], [place], [place], [address] , [place]. tel:[phone] OFFICE/OUTPA TIENT VISIT, [facility], [address], [place], [place], [address], [place] tel:[phone] [facility] [place] pain (chief complaint)insom nia1 (chief complaint)vitam in D (chief complaint)colon polyp (chief complaint)emphy sema1 (chief complaint) Chronic pain syndromeInsomn iaVitamin D deficiencyPoly p of colonEmphysema 2 Feldman Iker. [address], [place], [place], [address] , [place]. tel:[phone] PREV VISIT, EST, 65 & OVER [facility] [place], [address], [place], [place], [address], [place] tel:[phone] [facility] Medicine physical (chief complaint) Hyperlipidemia Chronic pain syndromeMalign ant neoplasm of bladder, unspecifiedBar rett's esophagus without dysplasiaEmphy semaFolate deficiencyHypo calcemiaHypoth yroidismInsomn iaEncounter for general adult medical exam w abnormal findings 2 Gaston Pickett [address], [place], [place], [address] , [place]. tel:[phone] OFFICE/OUTPA TIENT VISIT, [facility], [address], [address], [place] tel:[phone] [facility] [place] pain (chief complaint)insom nia1 (chief complaint)bladd er tumor1 (chief complaint)thyro id1 (chief complaint)CAD1 (chief complaint) Chronic pain syndromeInsomn iaMalignant neoplasm of bladder, unspecifiedHyp erlipidemiaHyp othyroidism 2 Gaston Pickett [address], [place], [place], [address] , [place]. tel:[phone] OFFICE/OUTPA TIENT VISIT, [facility], [address], [address], [place] tel:[phone] [facility] [place] pain (chief complaint)bladd er CA (chief complaint)tobac co (chief complaint)insom nia1 (chief complaint)GERD1 (chief complaint) Chronic pain syndromeInsomn iaBarrett's esophagus without dysplasiaMalig nant neoplasm of bladder, unspecifiedTob acco use 2 Gaston Pickett [address], [place], [place], [address] , [place]. tel:[phone] OFFICE/OUTPA TIENT VISIT, [facility], [address], [address], [place] tel:[phone] [facility] [place] pain (chief complaint)insom nia1 (chief complaint)tobac co1 (chief complaint)bladd er CA (chief complaint)GERD1 (chief complaint) Malignant neoplasm of bladder, unspecifiedIns omniaChronic pain syndromeTobacc o useBarrett's esophagus without dysplasia 1 Feldman Iker. [address], [address], [place], [place], [address] , [place]. tel:[phone] OFFICE/OUTPA TIENT VISIT, [facility], [address], [place], [place], [address], [place] tel:[phone] [facility] Medicine pain (chief complaint)insom nia1 (chief complaint)GERD1 (chief complaint)bladd er CA1 (chief complaint) InsomniaChroni c pain syndromeBarret t's esophagus without dysplasiaMalig nant neoplasm of bladder, unspecified 1 Feldman Iker. [address], [address], [place], [place], [address] , [place]. tel:[phone] OFFICE/OUTPA TIENT VISIT, [facility], [address], [place], [place], [address], [place] tel:[phone] [facility] Medicine pain (chief complaint)insom nia1 (chief complaint)thyro id1 (chief complaint)bladd er CA (chief complaint) InsomniaHypoth yroidismMalign ant neoplasm of bladder, unspecifiedChr onic pain syndrome 1 Gaston Dong. [address], [place], [place], [address] , [place]. tel:[phone] OFFICE/OUTPA TIENT VISIT, [facility], [address], [address], [place] tel:[phone] [facility] pain (chief complaint)insom nia1 (chief complaint)COPD1 (chief complaint)bladd er CA (chief complaint) InsomniaChroni c pain syndromeTobacc o useEmphysemaMa lignant neoplasm of bladder, unspecified Nov-3 1 Feldman Iker. [address], [place], [place], [address] , [place]. tel:[phone] OFFICE/OUTPA TIENT VISIT, [facility], [address], [place], [place], [address], [place] tel:[phone] [facility] Medicine pain (chief complaint)insom nia1 (chief complaint)tobac co1 (chief complaint) Chronic pain syndromeInsomn iaTobacco use 1 Gaston Pickett [address], [address], [place], [place], [address] , [place]. tel:[phone] OFFICE/OUTPA TIENT VISIT, [facility], [address], [address], [place] tel:[phone] [facility] Medicine pain (chief complaint)insom nia1 (chief complaint)renal 1 (chief complaint) LeukocytosisAc eklutna renal failureHypokal emiaInsomniaCh ronic pain syndromeEssent ial (primary) hypertension 1 Gaston Pickett [address], [place], [place], [address] , [place]. [phone] OFFICE/OUTPA TIENT VISIT, [facility], [address], [address], [place] tel:[phone] [facility] Medicine pain1 (chief complaint)insom nia1 (chief complaint)barre tt (chief complaint)weigh t loss1 (chief complaint) Chronic pain syndromeInsomn iaBarrett's esophagus without dysplasiaAbnor mal weight loss 1 Gaston Pickett [address], [address], [place], [place], [address] , [place]. [phone] OFFICE/OUTPA TIENT VISIT, [facility], [address] [place] [place], [address], [place] tel:[phone] [facility] [place] pain (chief complaint)insom na1 (chief complaint) Chronic pain syndromeInsomn ia 1 Gaston Pickett [address], [address] [place], [address] , [place]. tel:[phone] OFFICE/OUTPA TIENT VISIT, [facility], [address] [place] [place], [address], [place] tel:[phone] [facility] Medicine pain (chief complaint)insom nia1 (chief complaint)vitam in D (chief complaint) Chronic pain syndromeInsomn iaVitamin D deficiency, unspecified 1 Gaston Dong. [address], [address], [place], [place], [address] , [place]. tel:[phone] OFFICE/OUTPA TIENT VISIT, [facility], [address], [place], [place], [address], [place] tel:[phone] [facility] Family Medicine pain (chief complaint)insom nia1 (chief complaint) Chronic pain syndromeInsomn ia 1 Gaston Dong. [address], [address], [place], [place], [address] , [place]. tel:[phone] OFFICE/OUTPA TIENT VISIT, [facility], [address], [place], [place], [address], [place] tel:[phone] [facility] Medicine pain (chief complaint)insom nia1 (chief complaint)COPD1 (chief complaint) Chronic pain syndromeEmphys emaInsomnia May- 1 Gaston Dong. [address], [address], [place], [place], [address] , [place]. tel:[phone] PREV VISIT, EST, 65 & OVER [facility] [place], [address], [place], [place], [address], [place] tel:[phone] [facility] Medicine physical (chief complaint) Encounter for general adult medical exam w abnormal findingsChroni c pain syndromeEmphys emaInsomniaHyp othyroidismCor onary artery disease of teller coronary artery w/o angina pectorisMalign ant neoplasm of bladder, unspecified 1 Gaston Dong. [address], [address], [place], [place], [address] , [place]. tel:[phone] OFFICE/OUTPA TIENT VISIT, [facility], [address], [place], [place], [address], [place] tel:[phone] [facility] [place] pain (chief complaint)insom nia1 (chief complaint)COPD1 (chief complaint) EmphysemaChron ic pain syndromeInsomn ia 0 Gaston Dong. [address], [address], [place], [place], [address] , [place]. tel:[phone] OFFICE/OUTPA TIENT VISIT, [facility], [address], [place], [place], [address], [place] tel:[phone] [facility] [place] pain1 (chief complaint)insom nia1 (chief complaint)hypot hyroidism1 (chief complaint)HLP (chief complaint) Hypothyroidism Hyperlipidemia Chronic pain syndromeInsomn ia 0 Gaston Iker. [address], [address], [place], [place], [address] , [place]. tel:[phone] OFFICE/OUTPA TIENT VISIT, [facility], [address], [place], [place], [address], [place] tel:[phone] [facility] [place] pain (chief complaint)insom nia1 (chief complaint)hypot hyroidism1 (chief complaint)CAD1 (chief complaint) Chronic pain syndromeInsomn iaCoronary artery disease of teller coronary artery w/o angina pectorisHypoth yroidism 0 Gaston Dong. [address], [address], [place], [place], [address] , [place]. tel:[phone] OFFICE/OUTPA TIENT VISIT, [facility], [address], [place], [place], [address], [place] tel:[phone] [facility] [place] pain (chief complaint)insom nia1 (chief complaint)tobac co1 (chief complaint) Chronic pain syndromeInsomn iaTobacco use 0 Feldman Iker. [address], [address], [place], [place], [address] , [place]. tel:[phone] OFFICE/OUTPA TIENT VISIT, [facility], [address], [place], [place], [address], [place] tel:[phone] [facility] [place] pain (chief complaint)insom nia1 (chief complaint)tobac co (chief complaint)COPD1 (chief complaint) Chronic pain syndromeInsomn iaEmphysemaTob acco use 0 Gaston Iker. [address], [address], [place], [place], [address] , [place]. tel:[phone] OFFICE/OUTPA TIENT VISIT, [facility], [address], [place], [place], [address], [place] tel:[phone] [facility] Medicine pain (chief complaint)insom nia1 (chief complaint)tobac co1 (chief complaint) Chronic pain syndromeInsomn iaTobacco use 0 Gaston Iker. [address], [address], [place], [place], [address] , [place]. tel:[phone] OFFICE/OUTPA TIENT VISIT, [facility], [address], [place], [place], [address], [place] tel:[phone] [facility] [place] pain (chief complaint)insom nia1 (chief complaint) Chronic pain syndromeInsomn iaMalignant neoplasm of bladder, unspecified 0 Gaston Iker. [address], [address], [place], [place], [address] , [place]. tel:[phone] OFFICE/OUTPA TIENT VISIT, [facility], [address], [place], [place], [address], [place] tel:[phone] [facility] Medicine pain1 (chief complaint)anxie ty1 (chief complaint)COPD1 (chief complaint)bladd er CA1 (chief complaint) Chronic pain syndromeInsomn iaEmphysemaMal ignant neoplasm of bladder, unspecified 0 Feldman Iker. [address], [address], [place], [place], [address] , [place]. tel:[phone] OFFICE/OUTPA TIENT VISIT, [facility], [address], [place], [place], [address], [place] tel:[phone] [facility] [place] pain (chief complaint)anxie ty1 (chief complaint)D (chief complaint) InsomniaChroni c pain syndromeVitami n D deficiency, unspecified May- 0 Gaston Dong. [address], [address], [place], [place], [address] , [place]. tel:[phone] OFFICE/OUTPA TIENT VISIT, [facility], [address], [place], [place], [address], [place] tel:[phone] [facility] [place] pain (chief complaint)anxie ty1 (chief complaint) Chronic pain syndromeInsomn ia Apr- 0 Gaston Dong. [address], [address], [place], [place], [address] , [place]. tel:[phone] OFFICE/OUTPA TIENT VISIT, [facility], [address], [place], [place], [address], [place] tel:[phone] [facility] [place] pain1 (chief complaint)anxie ty1 (chief complaint)[place] tt1 (chief complaint)bladd er1 (chief complaint)HTn (chief complaint) Cervantes's esophagus without dysplasiaChron ic pain syndromeInsomn iaMalignant neoplasm of bladder, unspecifiedEss ential (primary) hypertension May- 0 Gaston Pickett [address], [address], [place], [place], [address] , [place]. tel:[phone] Referring Provider: Franky Dunham [facility] A, [place], [place], [address]. tel:[phone] OFFICE/OUTPA TIENT VISIT, [facility], [address], [place], [place], [address], [place] tel:[phone] [facility] [place] copd (chief complaint)pain1 (chief complaint)anxie ty1 (chief complaint)[place] tt1 (chief complaint)CAD (chief complaint) InsomniaBarret t's esophagus without dysplasiaChron ic pain syndromeEmphys emaCoronary artery disease of teller coronary artery w/o angina pectoris 0 Gaston Pickett [address], [address], [place], [place], [address] , [place]. tel:[phone] Referring Provider: Franky Dunham [place], [address]. tel:[phone] OFFICE/OUTPA TIENT VISIT, [facility], [address] [place], [address], tel:[phone] [facility] [place] anxiety1 (chief complaint)pain (chief complaint)bladd er CA (chief complaint)[place] tt1 (chief complaint)COPD1 (chief complaint) Malignant neoplasm of bladder, unspecifiedEmp hysemaBarrett' s esophagus without dysplasiaChron ic pain syndromeInsomn ia 0 Gaston Dong. [facility] [place], [address] , [place]. tel:[phone] Referring Provider: Franky Dunham [facility] A, [place], [place], [address]. tel:[phone] OFFICE/OUTPA TIENT VISIT, [facility], [address] [place], [place], [address], [place] tel:[phone] [facility] [place] chronic pain1 (chief complaint)anxie ty1 (chief complaint)HTN (chief complaint)bladd er CA (chief complaint) Chronic pain syndromeMalign ant neoplasm of bladder, unspecifiedIns omniaEssential (primary) hypertensionCo ronary artery disease of teller coronary artery w/o angina pectoris 9 Gaston Pickett [address] [facility] A, [place], [place], [address] , [place]. tel:[phone] Referring Provider: Franky Dunham [address] [facility] A, [place], [place], [address]. tel:[phone] PREV VISIT, EST, 65 & OVER [facility] [place], [address] [place], [place], [address], [place] tel:[phone] [facility] Medicine physical (chief complaint) Encounter for general adult medical exam w abnormal findingsEmphys emaBarrett's esophagus without dysplasiaMalig nant neoplasm of bladder, unspecifiedChr onic pain syndromeHypoth yroidismCorona ry artery disease of teller coronary artery w/o angina pectoris 9 Gaston Pickett [address], [address], [place], [place], [address] , [place]. [phone] Referring Provider: Iker Feldman, [address], [place], [place], [address]. tel:[phone] OFFICE/OUTPA TIENT VISIT, [facility], [address] [place], [address], [place] tel:[phone] [facility] [place] chronic pain1 (chief complaint)insom nia1 (chief complaint)COPD (chief complaint)HTN (chief complaint) EmphysemaChron ic pain syndromeInsomn iaCoronary artery disease of teller coronary artery w/o angina pectoris 9 Gaston Pickett [address], [address], [place], [place], [address] , [place]. tel:[phone] OFFICE/OUTPA TIENT VISIT, [facility], [address] [place], [address], [place] tel:[phone] [facility] [place] emphysema1 (chief complaint)chron ic pain1 (chief complaint)insom nia1 (chief complaint)GERD1 (chief complaint) EmphysemaChron ic pain syndromeInsomn iaBarrett's esophagus without dysplasia 0 9 Gaston Pickett [address], [address], [place], [place], [address] , [place]. tel:[phone] OFFICE/OUTPA TIENT VISIT, [facility], [address] [place], [address], [place] tel:[phone] [facility] [place] chronic pain1 (chief complaint)insom nia1 (chief complaint) Chronic pain syndromeInsomn ia Oct- 9 Gaston Pickett [address], [address], [place], [place], [address] , [place]. [phone] OFFICE/OUTPA TIENT VISIT, [facility], [address], [place], [place], [address], [place] tel:[phone] [facility] [place] chronic pain1 (chief complaint)insom nia1 (chief complaint)COPD1 (chief complaint)bladd er tumor1 (chief complaint) Chronic pain syndromeInsomn iaEmphysemaMal ignant neoplasm of bladder, unspecified 9 Gaston Dong. [address], [address], [place], [place], [address] , [place]. tel:[phone] OFFICE/OUTPA TIENT VISIT, [facility], [address], [place], [place], [address], [place] tel:[phone] [facility] [place] chronic pain (chief complaint)anxie ty1 (chief complaint)bladd er CA (chief complaint)lung (chief complaint) Chronic pain syndromeInsomn iaScreening for lung caMalignant neoplasm of bladder, unspecified 9 Gaston Dong. [address], [address], [place], [place], [address] , [place]. [phone] Referring Provider: Franky Dunham [address], [place], [place], [address]. tel:[phone] OFFICE/OUTPA TIENT VISIT, [facility], [address], [place], [place], [address], [place] tel:[phone] [facility] [place] vitamin D1 (chief complaint)thyro id1 (chief complaint)chron ic pain1 (chief complaint)insom nia1 (chief complaint) Hypothyroidism InsomniaChroni c pain syndromeVitami n D deficiency, unspecified 9 Gaston Pickett [address], [address], [place], [place], [address] , [place]. tel:[phone] Referring Provider: Franky Dunham [address], [place], [place], [address]. tel:[phone] OFFICE/OUTPA TIENT VISIT, [facility], [address], [place], [place], [address], [place] tel:[phone] [facility] [place] chronic pain (chief complaint)insom nia1 (chief complaint) Chronic pain syndromeInsomn ia 9 Gaston Dong. [address], [address], [place], [place], [address] , . tel:[phone] Referring Provider: Iker Feldman [address] [facility] [address], [place], [place], [address]. tel:[phone] OFFICE/OUTPA TIENT VISIT, [facility], [address], [place], [place], [address], tel:[phone] [facility] [place] chronci pain1 (chief complaint)hypot hyroidism1 (chief complaint)CAD1 (chief complaint)lung (chief complaint) Chronic pain syndromeHypoth yroidismCorona ry artery disease of teller coronary artery w/o angina pectorisScreen ing for lung caInsomnia 9 Gaston Dong. [address], [facility] A, [place], [place], [address] , . tel:[phone] Referring Provider: Franky Dunham [facility] [place], [address]. tel:[phone] OFFICE/OUTPA TIENT VISIT, [facility], [address] [place] [place], [address], [place] tel:[phone] [facility] [place] chronic pain1 (chief complaint)insom nia1 (chief complaint) Chronic pain syndromeInsomn ia 9 Gaston Dong. [address], [address], [place], [place], [address] , . tel:[phone] Referring Provider: Franky Dunham [facility] A, [place], [place], [address]. tel:[phone] OFFICE/OUTPA TIENT VISIT, [facility], [address] [place], [address], [place] tel:[phone] [facility] [place] CAD1 (chief complaint)[place] tt1 (chief complaint)bladd er tumor1 (chief complaint)chron ic pain1 (chief complaint)insom nia1 (chief complaint) Cervantes's esophagus without dysplasiaChron ic pain syndromeCorona ry artery disease of teller coronary artery w/o angina pectorisEmphys emaInsomnia 9 Gaston Pickett [address], [address], [place], [place], [address] , [place]. tel:[phone] Referring Provider: Franky Dunham [address], [place], [place], [address]. tel:[phone] OFFICE/OUTPA TIENT VISIT, [facility], [address], [place], [place], [address], [place] tel:[phone] [facility] [place] chronic pain (chief complaint)insom nia1 (chief complaint)bladd er CA1 (chief complaint) Chronic pain syndromeInsomn iaMalignant neoplasm of bladder, unspecified Gaston Pickett [address], [address], [place], [place], [address] , [place]. tel:[phone] Referring Provider: Franky Dunham [facility] A, [place], [place], [address]. tel:[phone] OFFICE/OUTPA TIENT VISIT, [facility], [address], [place], [place], [address], [place] tel:[phone] [facility] [place] chronic pain (chief complaint)anxie ty1 (chief complaint)renal lesion (chief complaint)[place] tt (chief complaint) InsomniaMalign ant neoplasm of bladder, unspecifiedChr onic pain syndromeBarret t's esophagus without dysplasia 8 Gaston [address], [place], [place], [address] , [place]. tel:[phone] Referring Provider: Franky Dunham [address], [place], [place], [address]. tel:[phone] OFFICE/OUTPA TIENT VISIT, [facility], [address] [place], [address], [place] tel:[phone] [facility] [place] thyroid1 (chief complaint)chron ic pain1 (chief complaint)insom nia1 (chief complaint)COPD1 (chief complaint)bladd er tumor1 (chief complaint) EmphysemaInsom niaOther cystic kidney diseasesHypoth yroidismChroni c pain syndrome 8 Gaston Dong. [address], [address], [place], [place], [address] , [place]. tel:[phone] Referring Provider: Franky Dunham [address], [place], [place], [address]. tel:[phone] PREV VISIT, EST, AGE 40-64 [facility] [place], [address], [place], [place], [address], [place] tel:[phone] [facility] Medicine Physical (chief complaint) Encounter for general adult medical exam w abnormal findingsChroni c pain syndromeInsomn iaMalignant neoplasm of bladder, unspecifiedCor onary artery disease of teller coronary artery w/o angina pectorisHypoth yroidismEmphys zuleima 8 Gaston Dong. [address], [address], [place], [place], [address] , [place]. tel:[phone] Referring Provider: Franky Dunham [address], [place], [place], [address]. tel:[phone] OFFICE/OUTPA TIENT VISIT, EST [facility] [place], [address], [place], [place], [address], [place] tel:[phone] [facility] Medicine bladder CA (chief complaint)kidne y cyst1 (chief complaint)chron ic pain1 (chief complaint)insom nia1 (chief complaint) Malignant neoplasm of bladder, unspecifiedOth er cystic kidney diseasesChroni c pain syndromeInsomn ia 3 0 8 Gaston Dong. [address], [address], [place], [place], [address] , [place]. tel:[phone] Referring Provider: Franky Dunham [address], [place], [place], [address]. tel:[phone] OFFICE/OUTPA TIENT VISIT, EST [facility] [place], [address], [place], [place], [address], [place] tel:[phone] [facility] Medicine chronic pain1 (chief complaint)anxie ty1 (chief complaint)COPD1 (chief complaint)renal 1 (chief complaint) EmphysemaChron ic pain syndromeBladde r disorder, unspecifiedIns omnia 8 Gaston Pickett [address], [address], [place], [place], [address] , [place]. tel:[phone] OFFICE/OUTPA TIENT VISIT, [facility], [address], [place], [place], [address], [place] tel:[phone] [facility] [place] kidney1 (chief complaint)chron ic pain (chief complaint)insom nia1 (chief complaint) Chronic pain syndromeBladde r disorder, unspecifiedOth er cystic kidney diseases 8 Gaston Pickett [address], [address], [place], [place], [address] , [place]. tel:[phone] Referring Provider: Franky Dunham [address], [place], [place], [address]. tel:[phone] OFFICE/OUTPA TIENT VISIT, [facility], [address], [place], [place], [address], [place] tel:[phone] [facility] [place] hypothyroidism (chief complaint)HLP (chief complaint)chron ic pain1 (chief complaint)insom nia1 (chief complaint) Hypothyroidism Hyperlipidemia Chronic pain syndromeInsomn ia 8 Gaston Pickett [address], [address], [place], [place], [address] , [place]. tel:[phone] Referring Provider: Franky Dunham [address], [place], [place], [address]. tel:[phone] OFFICE/OUTPA TIENT VISIT, [facility], [address] [place], [address], [place] tel:[phone] [facility] [place] chronic pain (chief complaint)insom nia1 (chief complaint)CAD1 (chief complaint)COPD1 (chief complaint) Chronic pain syndromeCorona ry artery disease of teller coronary artery w/o angina pectorisInsomn iaTobacco use 8 Gaston Pickett [address], [address], [place], [place], [address] , [place]. tel:[phone] Referring Provider: Iker Feldman, [address], [place], [place], [address]. tel:[phone] OFFICE/OUTPA TIENT VISIT, [facility], [address], [place], [place], [address], [place] tel:[phone] [facility] [place] chronic pain (chief complaint)insom nia1 (chief complaint)tobac co1 (chief complaint) Chronic pain syndromeInsomn iaTobacco use Mar-3 8 Gaston Dong. [address], [address], [place], [place], [address] , [place]. tel:[phone] OFFICE/OUTPA TIENT VISIT, [facility], [address], [place], [place], [address], [place] tel:[phone] [facility] [place] chronic pain1 (chief complaint)anxie ty1 (chief complaint)tobac co1 (chief complaint)[place] tt (chief complaint) Cervantes's esophagus without dysplasiaInsom niaChronic pain syndromeEmphys zuleima Mar-0 8 Gaston Dong. [address], [address], [place], [place], [address] , [place]. tel:[phone] Referring Provider: Iker Feldman, [address], [place], [place], [address]. tel:[phone] OFFICE/OUTPA TIENT VISIT, [facility], [address], [place], [place], [address], [place] tel:[phone] [facility] [place] chronic pain1 (chief complaint)insom nia1 (chief complaint) InsomniaChroni c pain syndrome Feb-0 8 Gaston Dong. [address], [address], [place], [place], [address] , [place]. tel:[phone] OFFICE/OUTPA TIENT VISIT, [facility], [address], [place], [place], [address], [place] tel:[phone] [facility] [place] COPD1 (chief complaint)chron ic pain1 (chief complaint)insom nia1 (chief complaint)barre tt1 (chief complaint) Cervantes's esophagus without dysplasiaEmphy semaInsomniaCh ronic pain syndrome 8 Gaston Pickett [address], [address], [place], [place], [address] , [place]. [phone] Referring Provider: Franky Dunham [address], [place], [place], [address]. tel:[phone] OFFICE/OUTPA TIENT VISIT, [facility], [address], [place], [place], [address], [place] [phone] [facility] [place] sob (chief complaint)chron ic pain1 (chief complaint)insom nia1 (chief complaint) EmphysemaInsom niaChronic pain syndrome 7 Gaston Wil[address], [place], [place], [address] , [place]. [phone] Referring Provider: Franky Dunham [address], [place], [place], [address]. tel:[phone] OFFICE/OUTPA TIENT VISIT, [facility], [address], [place], [place], [address], [place] tel:[phone] [facility] [place] chrnoic pain (chief complaint)anxei ty1 (chief complaint) Chronic pain syndromeInsomn ia 7 Gaston Wilkins [address], [place], [place], [address] , [place]. [phone] Referring Provider: Franky Dunham [address], [place], [place], [address]. tel:[phone] OFFICE/OUTPA TIENT VISIT, [facility], [address], [place], [place], [address], [place] tel:[phone] [facility] [place] chronic pain1 (chief complaint)anxie ty1 (chief complaint)thyro id1 (chief complaint)[place] tt1 (chief complaint) InsomniaHypoth yroidismBarret t's esophagus without dysplasiaChron ic pain syndrome 7 Gaston Wilkins [address], [place], [place], [address] , [place]. [phone] Referring Provider: Franky Dunham [address], [place], [place], [address]. tel:[phone] OFFICE/OUTPA TIENT VISIT, EST [facility] [place], [address], [place], [place], [address], [place] [phone] [facility] [place] chronic pain (chief complaint)anxie ty1 (chief complaint)ED (chief complaint) Chronic pain syndromeInsomn iaMale erectile dysfunction, unspecified Sep-0 7 Gaston Pickett [address], [address], [place], [place], [address] , [place]. [phone] Referring Provider: Franky Dunham [address], [place], [place], [address]. tel:[phone] PREV VISIT, EST, AGE 40-64 [facility], [place], [address], [place], [place], [address], [place] [phone] [facility] [place] Physical (chief complaint) Encounter for general adult medical exam w abnormal findingsHypoth yroidismInsomn iaAtherosclero tic heart disease of teller coronary artery without angina pectoris 7 Gaston Monson, [address], [place], [place], [address] , [place]. [phone] Referring Provider: Franky Dunham [address], [place], [place], [address]. tel:[phone] OFFICE/OUTPA TIENT VISIT, EST [facility], [place], [address], [place], [place], [address], [place] [phone] [facility] [place] Cervantes (chief complaint)insom nia1 (chief complaint)chron ic pain1 (chief complaint)CAD (chief complaint) Cervantes's esophagus without dysplasiaChron ic pain syndromeAthero sclerotic heart disease of teller coronary artery without angina pectorisInsomn ia 7 Gaston Pickett [address], [address], [place], [place], [address] , . tel:[phone] Referring Provider: Franky Dunham [address], [place], [place], [address]. tel:[phone] OFFICE/OUTPA TIENT VISIT, [facility], [address], [place], [place], [address], [place] tel:[phone] [facility] [place] chronic pain1 (chief complaint)insom nia1 (chief complaint) Chronic pain syndromeInsomn ia 7 Gaston Dong. [address], [address], [place], [place], [address] , [place]. tel:[phone] Referring Provider: Franky Dunham [facility] A, [place], [place], [address]. tel:[phone] OFFICE/OUTPA TIENT VISIT, [facility], [address] [place] [address] [place], [address], tel:[phone] [facility] [place] CAD (chief complaint)thyro id1 (chief complaint)hep C (chief complaint)chron ic pain1 (chief complaint)anxie ty1 (chief complaint) Hypothyroidism Atheroscleroti c heart disease of teller coronary artery without angina pectorisInsomn iaHepatitis C 7 Gaston Dong. [address], [address], [place], [place], [address] , [place]. tel:[phone] Referring Provider: Franky Dunham [facility] A, [place], [place], [address]. tel:[phone] OFFICE/OUTPA TIENT VISIT, [facility], [address] [place], [address], [place] tel:[phone] [facility] [place] chronic pain (chief complaint)insom nia1 (chief complaint)hep C (chief complaint)HLP (chief complaint) InsomniaHyperl ipidemiaEncoun ter for screening for other viral diseasesHypoth yroidism Jun-2 7 Gaston Dong. [address], [address], [place], [place], [address] , [place]. tel:[phone] Referring Provider: Franky Dunham [address], [place], [place], [address]. tel:[phone] OFFICE/OUTPA TIENT VISIT, [facility], [address], [place], [place], [address], [place] tel:[phone] [facility] [place] emphysema1 (chief complaint)chron ic pain (chief complaint)insom nia1 (chief complaint)CAD1 (chief complaint) COPDInsomniaCh ronic pain syndromeAthero sclerotic heart disease of teller coronary artery without angina pectoris 7 Gaston Dong. [address], [address], [place], [place], [address] , [place]. tel:[phone] Referring Provider: Franky Dunham [address], [place], [place], [address]. tel:[phone] OFFICE/OUTPA TIENT VISIT, [facility], [address], [place], [place], [address], [place] tel:[phone] [facility] [place] chronic pain1 (chief complaint)insom nia1 (chief complaint)CAD (chief complaint)tobac co1 (chief complaint) InsomniaTobacc o useChronic pain syndromeAthero sclerotic heart disease of teller coronary artery without angina pectoris 7 Gaston Dong. [address], [address], [place], [place], [address] , [place]. tel:[phone] Referring Provider: Franky Dunham [address], [place], [place], [address]. tel:[phone] OFFICE/OUTPA TIENT VISIT, [facility], [address], [place], [place], [address], [place] tel:[phone] [facility] [place] chronic pain (chief complaint)insom nia1 (chief complaint)tobac co1 (chief complaint) Chronic pain syndromeInsomn iaTobacco use 7 Gaston Dong. [address], [address], [place], [place], [address] , [place]. tel:[phone] Referring Provider: Franky Dunham [address], [place], [place], [address]. tel:[phone] OFFICE/OUTPA TIENT VISIT, [facility], [address], [place], [place], [address], [place] tel:[phone] [facility] [place] chronic pain1 (chief complaint)anxie ty1 (chief complaint)ED (chief complaint)GERD1 (chief complaint) Cervantes's esophagus without dysplasiaChron ic pain syndromeInsomn iaMale erectile dysfunction, unspecified Feb- 6 Gaston Dong. [address], [address], [place], [place], [address] , [place]. tel:[phone] Referring Provider: Franky Dunham [address], [place], [place], [address]. tel:[phone] OFFICE/OUTPA TIENT VISIT, [facility], [address], [place], [place], [address], [place] tel:[phone] [facility] [place] chronic pain (chief complaint)anxie ty1 (chief complaint) Chronic pain syndromeInsomn ia 6 Gaston Dong. [address], [address], [place], [place], [address] , [place]. tel:[phone] Referring Provider: Franky Dunham [address], [place], [place], [address]. tel:[phone] OFFICE/OUTPA TIENT VISIT, [facility], [address], [place], [place], [address], [place] tel:[phone] [facility] [place] chronic pain (chief complaint)anxie ty1 (chief complaint)hypot hyroidism (chief complaint)HTN (chief complaint) Chronic pain syndromeInsomn iaEssential (primary) hypertensionHy pothyroidism Dec- 6 Gaston Dong. [address], [address], [place], [place], [address] , [place]. tel:[phone] Referring Provider: Franky Dunham [address], [place], [place], [address]. tel:[phone] OFFICE/OUTPA TIENT VISIT, [facility], [address], [place], [place], [address], [place] tel:[phone] [facility] [place] chronic pain1 (chief complaint)anxie ty1 (chief complaint)GERD1 (chief complaint)HTN (chief complaint) Chronic pain syndromeBarret t's esophagus without dysplasiaEssen tial (primary) hypertensionAn xiolytic dependence Nov- 6 Gaston Dong. [address], [address], [place], [place], [address] , [place]. tel:[phone] Referring Provider: Iker Feldman, [address], [place], [place], [address]. tel:[phone] OFFICE/OUTPA TIENT VISIT, [facility], [address], [place], [place], [address], [place] tel:[phone] [facility] [place] chronic pain (chief complaint)anxie ty1 (chief complaint) Chronic pain syndromeAnxiol ytic dependence 6 Gaston Dong. [address], [address], [place], [place], [address] , [place]. tel:[phone] Referring Provider: Franky Dunham [address], [place], [place], [address]. tel:[phone] OFFICE/OUTPA TIENT VISIT, [facility], [address], [place], [place], [address], [place] tel:[phone] [facility] [place] CAD (chief complaint)HLP (chief complaint)hypot hyroidism (chief complaint)chron ic pain (chief complaint) Atheroscleroti c heart disease of teller coronary artery without angina pectorisAnxiol ytic dependenceHype rlipidemiaChro flores pain syndrome 6 Gaston Dong. [address], [address], [place], [place], [address] , [place]. tel:[phone] Referring Provider: Franky Dunham [address], [place], [place], [address]. tel:[phone] OFFICE/OUTPA TIENT VISIT, [facility], [address], [place], [place], [address], [place] tel:[phone] [facility] [place] chronic pain (chief complaint)insom nia1 (chief complaint)ED1 (chief complaint) Chronic pain syndromeInsomn iaOther male erectile dysfunctionCor onary artery disease of teller coronary artery w/o angina pectoris 3 6 Gaston Dong. [address], [address], [place], [place], [address] , [place]. tel:[phone] Referring Provider: Franky Dunham [address], [place], [place], [address]. tel:[phone] OFFICE/OUTPA TIENT VISIT, [facility], [address], [place], [place], [address], [place] tel:[phone] [facility] [place] chronic pain (chief complaint)anxie ty1 (chief complaint) Chronic pain syndromeAnxiol ytic dependence Aug-0 6 Gaston Dong. [address], [address], [place], [place], [address] , [place]. tel:[phone] Referring Provider: Franky Dunham [facility] A, [place], [place], [address]. tel:[phone] OFFICE/OUTPA TIENT VISIT, [facility], [address], [place], [place], [address], [place] tel:[phone] [facility] [place] chronic pain (chief complaint)anxie ty1 (chief complaint)barre tt (chief complaint)CAD (chief complaint) Chronic pain syndromeBarret t's esophagus without dysplasiaCoron william artery disease of teller coronary artery w/o angina pectorisEncoun ter for screening for malignant neoplasm of prostate 2 6 Gaston Dong. [address], [address], [place], [place], [address] , [place]. tel:[phone] Referring Provider: Franky Dunham [address], [place], [place], [address]. tel:[phone] OFFICE/OUTPA TIENT VISIT, [facility], [address], [place], [place], [address], [place] tel:[phone] [facility] [place] chronic pain (chief complaint)anxie ty1 (chief complaint)dizzi ness (chief complaint)anemi a1 (chief complaint) AnemiaDizzines sChronic pain syndrome Jun- 6 Gaston Dong. [address], [address], [place], [place], [address] , [place]. tel:[phone] Referring Provider: Iker Feldman, [address], [place], [place], [address]. tel:[phone] OFFICE/OUTPA TIENT VISIT, [facility], [address], [place], [place], [address], [place] tel:[phone] [facility] [place] chronic pain (chief complaint)anxie ty1 (chief complaint) Other insomniaChroni c pain syndrome 6 Gaston Dong. [address], [address], [place], [place], [address] , [place]. tel:[phone] Referring Provider: Iker Feldman [address], [place], [place], [address]. tel:[phone] OFFICE/OUTPA TIENT VISIT, [facility], [address], [place], [place], [address], [place] tel:[phone] [facility] [place] GERD1 (chief complaint)HLP1 (chief complaint)chron ic pain (chief complaint)insom nia1 (chief complaint) Hyperlipidemia Chronic pain syndromeGERD without esophagitisHyp othyroidism 6 Gaston Dong. [address], [address], [place], [place], [address] , [place]. tel:[phone] Referring Provider: Franky Dunham [address], [place], [place], [address]. tel:[phone] OFFICE/OUTPA TIENT VISIT, [facility], [address], [place], [place], [address], [place] tel:[phone] [facility] [place] chronic pain (chief complaint)anxie ty1 (chief complaint)GERD1 (chief complaint)CAD (chief complaint) Chronic pain syndromeOther insomniaCorona ry artery disease of teller coronary artery without angina pectorisHyperl ipidemia 5 Gaston Dong. [address], [address], [place], [place], [address] , [place]. tel:[phone] Referring Provider: Franky Dunham [address], [place], [place], [address]. tel:[phone] OFFICE/OUTPA TIENT VISIT, [facility], [address], [place], [place], [address], [place] tel:[phone] [facility] [place] right ankle pain (chief complaint)anxie ty1 (chief complaint) Chronic pain syndromeOther insomnia 5 Gaston Dong. [address], [address], [place], [place], [address] , [place]. tel:[phone] Referring Provider: Franky Dunham [address], [place], [place], [address]. tel:[phone] OFFICE/OUTPA TIENT VISIT, [facility], [address], [place], [place], [address], [place] tel:[phone] [facility] [place] ankle pain1 (chief complaint)insom nia1 (chief complaint) Secondary osteoarthritis , right ankle and footOther insomnia 5 Gaston Dong. [address], [address], [place], [place], [address] , [place]. [phone] Referring Provider: Iker Feldman [address], [place], [place], [address]. tel:[phone] OFFICE/OUTPA TIENT VISIT, [facility], [address], [place], [place], [address], [place] tel:[phone] [facility] [place] ankle pain (chief complaint)insom alverto (chief complaint)CAD (chief complaint)gastr ic ulcer (chief complaint) Pain in right ankleOpioid dependence, uncomplicatedH ypertensive heart disease without heart failureChronic gastric ulcer without hemorrhage or perforationTob acco use 5 Gaston Dong. [address], [address], [place], [place], [address] , [place]. tel:[phone] Referring Provider: Iker Feldman, [address], [place], [place], [address]. tel:[phone] OFFICE/OUTPA TIENT VISIT, [facility], [address], [place], [place], [address], [place] tel:[phone] [facility] [place] HTN (chief complaint)gastr ic ulcer (chief complaint)insom alverto (chief complaint)hypot hyroidism (chief complaint) Insomnia, unspecifiedUns pecified hypothyroidism Unspecified essential hypertensionAc eklutna gastric ulcer without mention of hemorrhage or perforation, with obstruction 5 Gaston Pickett [address], [address], [place], [place], [address] , [place]. tel:[phone] Referring Provider: Franky Dunham [address], [place], [place], [address]. tel:[phone] OFFICE/OUTPA TIENT VISIT, [facility], [address] [place], [address], [place] tel:[phone] [facility] [place] pain (chief complaint)anxie ty (chief complaint)hypot hyroidism (chief complaint)gERD (chief complaint) Insomnia, unspecifiedUns pecified hypothyroidism Unspecified essential hypertension 5 Gaston Pickett [address], [address], [place], [place], [address] , [place]. tel:[phone] Referring Provider: Franky Dunham [address], [place], [place], [address]. [phone] OFFICE/OUTPA TIENT VISIT, [facility], [address], [place], [place], [address], [place] tel:[phone] [facility] [place] chronic apin (chief complaint)anxie ty (chief complaint) Other chronic pain 5 Gaston Pickett [address], [address], [place], [place], [address] , [place]. tel:[phone] Referring Provider: Franky Dunham [address], [place], [place], [address]. tel:[phone] OFFICE/OUTPA TIENT VISIT, [facility], [address], [place], [address], [place] tel:[phone] [facility] [place] chronic pain (chief complaint)anxie ty (chief complaint) Ankle pain Bebeto-0 5 Gaston Dong. [address], [address], [place], [place], [address] , [place]. tel:[phone] Referring Provider: Franky Dunham [address], [place], [place], [address]. tel:[phone] OFFICE/OUTPA TIENT VISIT, [facility], [address], [place], [place], [address], [place] tel:[phone] [facility] [place] chronic pain (chief complaint)anxie ty (chief complaint)hypot hyroidism (chief complaint) Hypothyroidism Pain in joint involving lower legInsomnia, OtherScreening for malignant neoplasms of the prostate July-0 5 Gaston Dong. [address], [address], [place], [place], [address] , [place]. tel:[phone] Referring Provider: Franky Dunham [address], [place], [place], [address]. tel:[phone] OFFICE/OUTPA TIENT VISIT, [facility], [address], [place], [place], [address], [place] tel:[phone] [facility] [place] chronic pain (chief complaint)anxie ty (chief complaint)gastr ic ulcer (chief complaint)CAD (chief complaint) Insomnia, OtherCAD, [place] VesselAcute gastric ulcer without mention of hemorrhage or perforation, with obstructionOpi oid type dependence, unspecified use Apr-0 2 5 Gaston Dong. [address], [address], [place], [place], [address] , [place]. tel:[phone] Referring Provider: Franky Dunham [address], [place], [place], [address]. tel:[phone] OFFICE/OUTPA TIENT VISIT, [facility], [address], [place], [place], [address], [place] tel:[phone] [facility] [place] chronic pain (chief complaint)insom alverto (chief complaint) Insomnia, OtherPain in joint involving lower legOpioid type dependence, unspecified useSedative, hypnotic or anxiolytic dependence, unspecified May-0 5 Gaston Dong. [address], [address], [place], [place], [address] , [place]. tel:[phone] Referring Provider: Franky Dunham [address], [place], [place], [address]. tel:[phone] OFFICE/OUTPA TIENT VISIT, [facility], [address], [place], [place], [address], [place] tel:[phone] [facility] [place] chornic pain (chief complaint)anxie ty (chief complaint)HLP (chief complaint)hypot hyroidism (chief complaint) Hypothyroidism Insomnia, OtherOther and unspecified hyperlipidemia Pain in joint involving lower leg Fe- 5 Gaston Dong. [address], [address], [place], [place], [address] , [place]. tel:[phone] Referring Provider: Franky Dunham [address], [place], [place], [address]. tel:[phone] OFFICE/OUTPA TIENT VISIT, [facility], [address], [place], [place], [address], [place] tel:[phone] [facility] [place] GERD (chief complaint)chron ic pain (chief complaint)anxie ty (chief complaint)HLP (chief complaint) Hypothyroidism CAD, [place] VesselPain in joint involving lower legHypertensio n, Unspecified 5 Gaston Dong. [address], [address], [place], [place], [address] , [place]. [phone] Referring Provider: Iker Feldman, [address], [place], [place], [address]. tel:[phone] OFFICE/OUTPA TIENT VISIT, [facility], [address], [place], [place], [address], [place] [phone] [facility] [place] chronic pain (chief complaint)Anxie ty (chief complaint)HLP (chief complaint) Other and unspecified hyperlipidemia Pain in joint involving lower leg 4 Gaston Dong. [address], [address], [place], [place], [address] , [place]. [phone] Referring Provider: Iker Feldman, [address], [place], [place], [address]. tel:[phone] OFFICE/OUTPA TIENT VISIT, [facility], [facility] [address], [place], [place], [address], [place] tel:[phone] [facility] [place] HLP (chief complaint)chron ic pain (chief complaint)anxie ty (chief complaint)HTN (chief complaint)CAD (chief complaint)GERD (chief complaint) Hypothyroidism CAD, [place] VesselHyperten jyaleen, UnspecifiedCHR ONIC PAIN NEC 4 Gaston Dong. [address], [address], [place], [place], [address] , [place]. [phone] Referring Provider: Franky Dunham [address], [place], [place], [address]. tel:[phone] OFFICE/OUTPA TIENT VISIT, [facility], [address], [place], [place], [address], [place] tel:[phone] [facility] [place] chronic pain (chief complaint)anxie ty (chief complaint) Hypothyroidism Pain in joint involving lower leg 4 Gaston Dong. [address], [address], [place], [place], [address] , [place]. tel:[phone] Referring Provider: Iker Feldman [address], [place], [place], [address]. tel:[phone] OFFICE/OUTPA TIENT VISIT, [facility], [address], [place], [place], [address], [place] [phone] [facility] [place] chronic pain (chief complaint)anxie ty (chief complaint)GERD (chief complaint)CAD (chief complaint) Pain in joint involving lower legCAD, [place] VesselAcute gastric ulcer without mention of hemorrhage or perforation, with obstructionHyp othyroidism 4 Gaston Dong. [address], [address], [place], [place], [address] , [place]. tel:[phone] Referring Provider: Franky Dunham [address], [place], [place], [address]. tel:[phone] OFFICE/OUTPA TIENT VISIT, [facility], [address], [place], [address], [place] [phone] [facility] [place] chornic pain (chief complaint)anxie ty (chief complaint)HTN (chief complaint) CHRONIC PAIN NECHypertensio n, Unspecified 4 Gaston Dong. [address], [address], [place], [place], [address] , [place]. [phone] Referring Provider: Franky Dunham [address], [place], [place], [address]. tel:[phone] OFFICE/OUTPA TIENT VISIT, [facility], [address], [place], [place], [address], [place] [phone] [facility] [place] GERD (chief complaint)chorn ic pain (chief complaint)anxie ty (chief complaint) GERDCHRONIC PAIN NEC 4 Gaston Dong. [address], [address], [place], [place], [address] , [place]. [phone] Referring Provider: Franky Dunham [address], [place], [place], [address]. tel:[phone] OFFICE/OUTPA TIENT VISIT, [facility], [address], [place], [place], [address], [place] tel:[phone] [facility] [place] gastric ulcer (chief complaint)chorn ic pain (chief complaint)anxie ty (chief complaint)hypot hyroidism (chief complaint) Acute gastritis (without mention of hemorrhage)CHR ONIC PAIN NECPain in joint involving lower legHypothyroid ism 4 Gaston Dong. [address], [address], [place], [place], [address] , [place]. [phone] Referring Provider: Franky Dunham [address], [place], [place], [address]. tel:[phone] OFFICE/OUTPA TIENT VISIT, [facility], [address], [place], [place], [address], [place] tel:[phone] [facility] [place] chornic pain (chief complaint)anxie ty (chief complaint)gastr ic ulcer (chief complaint)CAD (chief complaint) Acute gastric ulcer without mention of hemorrhage or perforation, with obstructionPai n in joint involving lower legCAD, [place] 4 Gaston Dong. [address], [address], [place], [place], [address] , [place]. [phone] Referring Provider: Franky Dunham [address], [place], [place], [address]. tel:[phone] OFFICE/OUTPA TIENT VISIT, [facility], [address], [place], [place], [address], [place] tel:[phone] [facility] [place] HLP (chief complaint)CAD (chief complaint)hemat uria (chief complaint)chorn ic pain (chief complaint)anxie ty (chief complaint) Other and unspecified hyperlipidemia CAD, [place] VesselHEMATURI A NOSPain in joint involving lower leg 4 Gaston Dong. [address], [place], [place], [address] , [place]. [phone] Referring Provider: Franky [address], [place], [place], [address]. tel:[phone] OFFICE/OUTPA TIENT VISIT, [facility], [address], [place], [place], [address], [place] tel:[phone] [facility], [place], [facility] hematuria (chief complaint)hypot hyroidism (chief complaint)chron ic painPt (chief complaint) HEMATURIA NOSCHRONIC PAIN NECHypothyroid ism Mar-0 4 Gaston Dong. [address], [address], [place], [place], [address] , [place]. tel:[phone] Referring Provider: Iker Feldman, [address], [place], [place], [address]. tel:[phone] OFFICE/OUTPA TIENT VISIT, [facility], [address], [place], [place], [address], [place] tel:[phone] [facility] [place] chronic pain (chief complaint)HLP (chief complaint)Anxie ty (chief complaint)hemtu valerio (chief complaint) CHRONIC PAIN NECHypothyroid ismOther and unspecified hyperlipidemia HEMATURIA NOS Feb- 4 Gaston Dong. [address], [address], [place], [place], [address] , [place]. tel:[phone] Referring Provider: Franky [address], [place], [place], [address]. tel:[phone] OFFICE/OUTPA TIENT VISIT, [facility], [address], [place], [place], [address], [place] tel:[phone] [facility] [place] CAD (chief complaint)chorn ic pain (chief complaint)anxie ty (chief complaint)Hypot hyroidism (chief complaint) Hypothyroidism CAD, [place] and unspecified hyperlipidemia CHRONIC PAIN NEC 4 Gaston Dong. [address], [address], [place], [place], [address] , [place]. tel:[phone] Referring Provider: Franky [address], [place], [place], [address]. tel:[phone] OFFICE/OUTPA TIENT VISIT, [facility], [address], [place], [place], [address], [place] tel:[phone] [facility] [place] chronic pain (chief complaint)anxie ty (chief complaint) CHRONIC PAIN NEC Dec- 3 Gaston Dong. [address], [address], [place], [place], [address] , [place]. [phone] Referring Provider: Franky [address], [place], [place], [address]. tel:[phone] OFFICE/OUTPA TIENT VISIT, [facility], [address], [place], [place], [address], [place] [phone] [facility] [place] chronic pain (chief complaint)anxie ty (chief complaint) CHRONIC PAIN NECHypothyroid ismOther and unspecified hyperlipidemia 3 Gaston Dong. [address], [address], [place], [place], [address] , [place]. [phone] Referring Provider: Franky [address], [place], [place], [address]. tel:[phone] OFFICE/OUTPA TIENT VISIT, [facility], [address], [place], [place], [address], [place] tel:[phone] [facility] [place] hypothyroidism (chief complaint)Chron ic pain (chief complaint)anxie ty (chief complaint) Hypothyroidism Other and unspecified hyperlipidemia CAD, [place] Dec-0 3 Gaston Pickett [address], [address], [place], [place], [address] , [place]. [phone] Referring Provider: Franky [address], [place], [place], [address]. tel:[phone] OFFICE/OUTPA TIENT VISIT, [facility], [address], [place], [place], [address], [place] tel:[phone] [facility] [place] chronic pain (chief complaint)anxie ty (chief complaint) CHRONIC PAIN NECHypothyroid ismOther and unspecified hyperlipidemia Sep-0 3 Gaston Dong. [address], [place], [place], [address] , [place]. tel:[phone] Referring Provider: Iker Feldman, [address], [place], [place], [address]. tel:[phone] OFFICE/OUTPA TIENT VISIT, [facility], [address], [place], [place], [address], [place] tel:[phone] [facility] [place] Hypothyroidism (chief complaint)CAD (chief complaint)chron ic pain (chief complaint) Hypothyroidism CAD, [place]RONIC PAIN NEC 3 Gaston Dong. [address], [place], [place], [address] , [place]. tel:[phone] Referring Provider: Franky [address], [place], [place], [address]. tel:[phone] OFFICE/OUTPA TIENT VISIT, [facility], [address], [place], [place], [address], [place] tel:[phone] [facility] [place] CAD (chief complaint)chron ic pain (chief complaint)anxie ty (chief complaint) CAD, [place]esselCHRONIC PAIN NECInsomnia, Other 3 Gaston Dong. [address], [address], [place], [place], [address] , [place]. tel:[phone] Referring Provider: Franky [address], [place], [place], [address]. tel:[phone] OFFICE/OUTPA TIENT VISIT, [facility], [address], [place], [place], [address], [place] tel:[phone] [facility] [place] CAD (chief complaint)Chron ic pain (chief complaint)anxie ty (chief complaint) CAD, [place]RONIC PAIN NECHypothyroid ism 3 Gaston Dong. [address], [place], [place], [address] , [place]. tel:[phone] Referring Provider: Franky [address], [place], [place], [address]. tel:[phone] OFFICE/OUTPA TIENT VISIT, [facility], [address], [place], [place], [address], [place] tel:[phone] [facility] [place] chronic pain (chief complaint)anxie ty (chief complaint)Hypot hyroidism (chief complaint) Hypothyroidism CHRONIC PAIN NEC May-0 2-201 3 Gaston Dong. [address], [address], [place], [place], [address] , [place]. tel:[phone] Referring Provider: Iker Feldman, [address], [place], [place], [address]. tel:[phone] OFFICE/OUTPA TIENT VISIT, [facility], [address], [place], [place], [address], [place] tel:[phone] [facility] [place] chornic pain (chief complaint)Anxie ty. (chief complaint)hypot hyroidism (chief complaint) Hypothyroidism CHRONIC PAIN NECRESTLESS LEGS SYNDROME Apr-0 5201 3 Gaston Dong. [address], [address], [place], [place], [address] , [place]. tel:[phone] Referring Provider: Franky [address], [place], [place], [address]. tel:[phone] OFFICE/OUTPA TIENT VISIT, [facility], [address], [place], [place], [address], [place] tel:[phone] [facility] [place] chronic pain (chief complaint)viral (chief complaint)Anxie ty (chief complaint) Viral Infection, UnspecifiedCHR ONIC PAIN NECHypothyroid ism Mar-0 4-201 3 Gaston Dong. [address], [address], [place], [place], [address] , [place]. tel:[phone] Referring Provider: [address], [place], [place], [address]. tel:[phone] OFFICE/OUTPA TIENT VISIT, [facility], [address], [place], [place], [address], [place] tel:[phone] [facility] [place] chronic pain (chief complaint)Anxie ty (chief complaint)hypot hyroidism (chief complaint)ED (chief complaint) Hypothyroidism CHRONIC PAIN NECErectile Dysfunction Fe 3 Gaston Pickett [address], [address], [place], [place], [address] , [place]. tel:[phone] Referring Provider: Franky [address], [place], [place], [address]. tel:[phone] OFFICE/OUTPA TIENT VISIT, [facility], [address], [place], [place], [address], [place] tel:[phone] [facility] [place] hypothyroidism (chief complaint)chron ic pain (chief complaint) CHRONIC PAIN NECHypothyroid ismRESTLESS LEGS SYNDROME 3 Gaston Pickett [address], [place], [place], [address] , [place]. [phone] Referring Provider: Franky [address], [place], [place], [address]. tel:[phone] OFFICE/OUTPA TIENT VISIT, [facility], [address], [place], [place], [address], [place] tel:[phone] [facility] [place] chronic pain (chief complaint)restl ess leg syndrome (chief complaint)anxie ty (chief complaint) CHRONIC PAIN NECRESTLESS LEGS SYNDROME 2 Gaston Pickett [address], [place], [address] , [place]. [phone] Referring Provider: Franky [address], [place], [place], [address]. tel:[phone] OFFICE/OUTPA TIENT VISIT, [facility], [address], [place], [place], [address], [place] tel:[phone] [facility] [place] chronic pain (chief complaint)restl ess leg (chief complaint) RESTLESS LEGS SYNDROMECHRONI C PAIN NEC 2 Gaston Pickett [address], [place], [place], [address] , . tel:[phone] Referring Provider: Iker Feldman, [address], [place], [place], [address]. tel:[phone] OFFICE/OUTPA TIENT VISIT, EST [facility], [address], [place], [place], [address], [place] tel:[phone] [facility] Medicine chornic pain (chief complaint)anxie ty (chief complaint)insom alvreto (chief complaint) Insomnia, OtherCHRONIC PAIN NECRESTLESS LEGS SYNDROME 0-201 2 G[address] Dong. [address], [place], [place], [address] , [place]. tel:[phone] Referring Provider: Iker Feldman, [address], [place], [place], [address]. tel:[phone] Family History Family Member Type Diagnosis Age At Onset Father Problem (finding) Cancer - colon CA Mother Problem (finding) Alive and well Brother Problem (finding) Coronary artery disease Brother Problem (finding) Other Payers Payer name Insurance type Covered alliance party ID Authoriza ticlaudette(s) [facility] CI [id number] Social History Type Description Quantity Date Captured [...] on due Goal Influenza vaccine. Due on Ok due Goal FOBT. Due on due Goal [...] ordered Referral Referred To: Suzanne Beckham [address] [place], [place] [id number] Ordered: Referrals: Allopathic & Osteopathic Physicians : Urology. Suzanne Beckham. 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 GRISELDA RAWLS. Evaluate and treat ordered Referral Ordered: CT THORAX W/O DYE ordered Referral Ordered: Referral: [facility]. Evaluate and treat. ordered Referral Ordered: Referral: Urology. Evaluate and treat. ordered Referral Ordered: US THYROID ordered Appointment Bhanu Álvarez BOOKED Appointment Bhanu Álvarez BOOKED Appointment Bhanu Álvarez [...] now with chemo and tumor was removed. pain Pt has chronic r ight [...] any worsening pain. Pt denies any neuropathy hypothyroidism Pt has hypothyro idism Pt denies any [...] any neuropathy thyroid1 Pt has hypothyro idism. pt needs [...] enmanuel any hemoptysis, worsening sob or cough CAD Pt has CAD. Pt t akes plavix, lisinopril, lipitor and coreg. Pt has history of stent. pt just saw cardiology and he had in office lipid panel done and he was told that he is doing ok. He denies any chest pain insomnia Pt has chronic a nxiety [...] has bladder C A Pt supposes to [facility] urology but his cezar was again canceled. Pt did call urology at [facility] who he used to see and [...] qhs PRN GERD Pt has cervantes. Pt takes omeprazole. Pt denies any GERD. bladder CA1 Pt has bladder C A. Pt was referred to urology of [facility] and he tried to call for cezar [...] blood in urine or any urinary difficulty tobacco1 Pt has 54 pack y ear [...] Pt doing ok with xanax qhs PRN renal1 Pt recently had some taco and then [...] his wbc were ok also upon discharge insomnia Pt has chronic a nxiety and [...] any worsening pain. Pt denies any neuropathy cervantes Pt has helen cardona. Pt supposes [...] diarrhea, change of bowel, early satiety, etc insomna1 Pt has chronic a nxiety and [...] by urology Pt denies any other complaints insomnia1 Pt has chronic a nxiety and insomnia. Pt takes xanax qhs PRn and doing ok, Pt denies any depression or any suicidal thought. Pt denies any crying spells Pt doing ok with xanax qhs PRN COPD1 P has COPD. Pt t akes incruse and albuterol Prn. Pt denies any hemoptysis. Pt denies any worsening sob. Pt needs incruse refilled . pain Pt has chronic r ight ankle pain Pt has arthritis Pt failed NSAID and ultram pt takes norco PRn for pain and doing ok. Pt denies any worsening pain pain1 Pt has chronic r ight ankle [...] any chest pain. 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 copd [...] PRn for pain and doing ok HTN pt has HTN. pt t akes lisinopril and coreg pt has CAD with stent pt denies any chest pain, Pt is on plavix and ASA bladder CA Pt is s/p bladde r surgery post bladder CA Pt denies any UTI symptoms Pt has cezar with urology in two weeks for follow up anxiety1 Pt has chronic a nxiety and insomnia. Pt takes xanax qhs PRn and doing ok, Pt denies any depression or any suicidal thought. Pt denies any crying spells Pt doing ok with xanax qhs PRN chronic pain1 Pt has chronic r ight [...] id. Pt takes synthroid Pt needs refill insomnia1 Pt has insomnia Pt takes xanax qhs PRn and doing ok COPD1 Pt has COPD. pt takes incruse and ventolin PRN Pt denies any acute sob. Pt takes ventolin 1-2 per week bladder tumor1 Pt underwent zahraa marivel by Dr. Junior and was successful per pt. chronic pain1 Pt has chronic r ight ankle pain and he also has neck pain Pt has arthritis and also history of right ankle fracture. pt takes norco PRn for pain and doing ok Physical PT needs annual physical. pt has bladder CA and he is seeing Dr. Junior in [place] and he will have the mass removed [...] Evaristo braun who is a urologist in [facility] who did the cysto and he told me the renal lesion is almost 100% sure a benign cyst. He did take the Ct to his radiologist over [facility] However, he is not in [...] 1 Pt just seen uro logy in [facility]. He will do cystoscopy. pt has not [...] failed NSAID and also ultram and codeine Helen Pt has helen cardona. Pt takes omeprzole. [...] PRn and doing ok. barrett1 Pt has helen. Pt is on omeparzole. Pt denies any GERD Pt will do EGD soon COPD1 Pt has mild copd . Pt states that incurse really helps. Pt uses venotlin 2-3 per day still but he feels much better in terms of breathing. Pt denies any acute sob. Pt still smoking about 1/2 PPD sob pt feels mild ex ertional sob [...] takes synthroid. Pt denies any other complaints insomnia1 pt has insomnia and anxiety Pt [...] abd pain. Pt needs EGD next year chronic pain1 Pt has chronic r ight [...] drug use. He denies any abd pain thyroid1 Pt has low thryo id Pt takes synthroid. TSH ok chronic pain1 Pt has chornic r ight [...] to schedule for CT of chest but [facility] will not do it. Pt [...] cyring spells GERD1 Pt has Cervantes e brendan. Pt is taking omeprazole. Pt denies any [...] Pt atkes xanax PRN and doing ok. CAD Pt has CAD. Pt t akes [...] doing ok PT denies any GI complaints. chronic pain Pt c/o chronic r ight [...] Pt takes omerpzole. Pt denies any GERD insomnia The patient pres ents for insomnia. [...] Related to Chron ic pain syndrome Prescribed Diet Educ ation/Lifestyle Education Regarding Diet Related to Dietary Surveillance and Counseling Quit smoking Related to [place] tt's esophagus without dysplasia Prescribed Activity and [...] Surveillance and Counseling Quit smoking Related to [place] tt's esophagus without dysplasia Quit smoking Related [...] Surveillance and Counseling exercise Related to CAD, [place] Assessments Type Assessment Date assessment Chronic pain syndrome assessment Other insomnia assessment Anemia assessment Acute cystitis with hematuria Au Mental Status Date Cognitive Assessment Orientation - Dwight ed to time, place, person, situation.
--- OUTSIDE RECORDS SUMMARY | 2024-10-16 02:55 | XMS_ITS | Clinical Summary ---
Author Organization [facility] [address] Address [address] [place] [address] Care Team Providers Care Neuropsychology Service Director Name Role Phone Iker Feldman MD Primary Care Provider [phone] Iker Feldman MD Unavailable [phone] Allergies Active Allergy Reactions Criticality Noted Date Comments Other Other (See comments) Low 12/05/2017 DARVOCET DIZZY PASSED OUT Medications aspirin (ASPERDRINK) 81 mg tablet, effervescent take 1 by Oral route 0 08/28/19 13 Active ALPRAZolam (XANAX) 1 mg tablet Take 1 tablet (1 mg total) by mouth nightly as needed for anxiety Active umeclidinium (INCRUSE ELLIPTA) 62.5 mcg/actuation blister with device 1 puff (62.5 mcg total) daily Active levothyroxine (SYNTHROID, LEVOTHROID) 88 mcg tablet Take 1 tablet (88 mcg total) by mouth section cutter before breakfast Active albuterol HFA (PROVENTIL HFA,VENTOLIN HFA,PROAIR HFA) 90 mcg/actuation inhaler Inhale 2 puffs every 4 (four) hours as needed for wheezing Active pantoprazole DR (PROTONIX) 20 mg EC tablet Take 1 tablet (20 mg total) by mouth daily Active HYDROcodone-acet aminophen (NORCO) 10-325 mg per tabletIndication s:Pain Take 1 tablet by mouth every 6 (six) hours as needed for pain Active cholecalciferol (VITAMIN D-3) 79566 unit tablet Take 1 tablet (50,000 Units total) by mouth once a week Active carvediloL (COREG) 3.125 mg tabletIndication s:Coronary artery disease involving [place] coronary artery of standing [place] heart without angina pectoris Take 1 tablet (3.125 mg total) by mouth 2 (two) times a day with meals 180 tablet 3 11/01/19 24 Active nitroglycerin (NITROSTAT) 0.4 mg SL tabletIndication s:Coronary artery disease involving standing [place] coronary artery of standing rock heart without angina pectoris Place 1 tablet (0.4 mg total) under the tongue every 5 (five) minutes as needed for chest pain Up to 3 doses 25 tablet 11/01/19 24 Active lisinopriL (PRINIVIL,ZESTRI L) 10 mg tabletIndication s:Coronary artery disease involving standing [place] coronary artery of [place] heart without angina pectoris TAKE ONE TABLET BY MOUTH EVERY DAY 90 tablet 10/14/19 25 Active clopidogreL (PLAVIX) 75 mg tabletIndication s:Coronary artery disease involving [place] coronary artery of [place] heart without angina pectoris TAKE ONE TABLET BY MOUTH DAILY 90 tablet 10/14/19 25 Active atorvastatin (LIPITOR) 40 mg tabletIndication s:Coronary artery disease involving [place] coronary artery of [place] heart without angina pectoris TAKE ONE TABLET BY MOUTH DAILY 90 tablet 10/14/19 25 Active clopidogreL (PLAVIX) 75 mg tabletIndication s:Coronary artery disease involving standing [place] coronary artery of [place] heart without angina pectoris Take 1 tablet (75 mg total) by mouth daily 90 tablet 3 11/01/19 24 025 Discontinued atorvastatin (LIPITOR) 40 mg tabletIndication s:Coronary artery disease involving [place] coronary artery of [place] heart without angina pectoris Take 1 tablet (40 mg total) by mouth daily 90 tablet 3 11/01/19 24 025 Discontinued lisinopriL (PRINIVIL,ZESTRI L) 10 mg tabletIndication s:Coronary artery disease involving [place] coronary artery of [place] heart without angina pectoris TAKE ONE TABLET BY MOUTH DAILY 90 tablet 2 02/18/20 24 025 Discontinued Active Problems Problem Noted Date Diagnosed Date Atherosclerosis of coronary artery 12/12/2013 Overview (06/15/2016): Coronary atherosclerosis Encounters Date Type Department Care Team Description 08/19/2024 Telephone [facility] Cardiology [address] [place] [address] Perri Lux NP preop form [...] on file 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
--- NOTE | 2024-10-16 06:31 | WPDHPUPDATE1 ---
History and Physical Update Update Date/Time: 10/16/24 06:31 History and Physical has been reviewed, including an updated exam of the patient. There are NO changes in the patient's condition. Risks, benefits, and alternatives have been discussed and questions answered. Patient agrees to proceed with procedure.
[2024-10-16] MEDS: LACTATED RINGERS 1,000 ML 30 ML IV CONT (10:45)
--- NOTE | 2024-10-16 10:52 | SUR.PREOP ---
Pt arrived verbally aggressive. MD Gilliam spoke to patient about proper behavior in order to proceed.
[2024-10-16 10:56] VITALS: BMI 23.5
[2024-10-16] MEDS: SODIUM BICARBONATE TAB 650 MG TABLET 1300 MG PO (11:00)
--- NOTE | 2024-10-16 11:23 | P.PNAN_ITS ---
Anes - Initial Pre Proc Eval Procedure: Operation Date: 10/16/24 12:00 Proposed Procedures p Cystoscopy, Right Retrograde Pyelogram, Right Ureteroscopy, Jelmyto Instillation - Vlad Gilliam MD Date/Time: 10/16/24 11:23 Surgeon: Vlad Gilliam MD Pre Op Diagnosis: bladder CA Patient Data Age: 69 Gender: M Height: 1.74 m Weight: 71.2 kg Allergies Allergy/AdvReac Type Severity Reaction Status Date / Time propoxyphene Allergy Intermediate Hives, Verified 10/09/24 09:56 N/V, Confusion Home Medications ?Medication ?Instructions ?Recorded ?Confirmed ?Type alprazolam 1 mg tablet (Xanax) 1 mg PO DAILY PRN Anxiety 09/14/20 10/08/24 History atorvastatin 40 mg tablet (Lipitor) 40 mg PO DAILY 09/14/20 10/09/24 History calcium phosphate,dibasic 77 50,000 tablet PO [id number] 09/14/20 10/08/24 History mg-vitamin D3 400 unit tablet carvedilol 3.125 mg tablet (Coreg) 3.125 mg PO BID 09/14/20 10/09/24 History clopidogrel 75 mg tablet (Plavix) 75 mg PO DAILY 09/14/20 10/09/24 History hydrocodone 10 mg-acetaminophen 1 tablet PO Q6-8H PRN Pain 09/14/20 10/08/24 History 325 mg tablet levothyroxine 88 mcg tablet 88 mcg PO DAILY 09/14/20 10/09/24 History (Synthroid) lisinopril 10 mg tablet (Zestril) 10 mg PO DAILY 09/14/20 10/09/24 History albuterol sulfate 90 mcg/actuation 2 puff inhalation QID PRN 05/03/21 10/08/24 History aerosol inhaler Shortness Of Breath nitroglycerin 0.4 mg sublingual 0.4 mg sublingual Q5-15M PRN Chest 05/03/21 10/08/24 History tablet Pain umeclidinium 62.5 mcg/actuation 1 inh inhalation DAILY 05/03/21 10/09/24 History blister powder for inhalation (Incruse Ellipta) aspirin 81 mg chewable tablet 81 mg PO DAILY 07/28/22 10/09/24 History pantoprazole 40 mg tablet,delayed 20 mg PO QAM 08/20/24 10/09/24 History release Patient hx anesthesia problems: none Family hx anesthesia problems: none Results Review: All pre-operative results and documents have been reviewed as part of the pre- operative evaluation. [facility] Past Medical History Medical History Non-cardiac chest pain Gastroesophageal reflux disease Chronic obstructive pulmonary disease ST elevation myocardial infarction (STEMI) (07/2012) Restless leg syndrome Hepatitis C virus infection resolved after antiviral drug therapy Bladder cancer Continuous tobacco abuse Coronary artery disease Hypothyroidism Essential hypertension Hyperlipidemia Anxiety and depression Surgical History Surgical History History of cystoscopy Abnormal cystoscopy x8 Right eye trauma History of cardiac catheterization (08/01/12) Aspiration thrombectomy, PTCA, stent x2 in overlapping fashion in major diagonal branch. Per Dr. Gresham. Family History Family History Mother Acute myocardial infarction Leukemia Father Colon cancer Sibling Heart problem Social History Social History Social History: Surrogate medical decision maker: Jodee Álvarez, spouse. Code status: Full code. Smoking packs per day: 1 Smoking cigarettes per day: 20.0 Years smoked: 30 Smoking pack-years: 30.00 Smoking status: Former smoker Tobacco type: cigarettes, pipe and cigars Second hand tobacco smoke exposure: Yes Smoking end date: 03/12/94 Additional smoking assessment comments: still smokes cigars and pipes no inhale Alcohol intake: current Drinks per week: 2 Alcohol use details: BEER Substance use: current Substance use type: marijuana Other substance usage details: 3 x weekly smokes it Last use: 12/25/22 Do You Feel Safe in your Home?: Yes Lack of Transportation: No Lack of Food: Never True Current Housing: I Have Housing Concerned About Future Housing: No Difficulty Paying Gas/Electric Bills: No Difficulty Paying for Meds: No Currently Unemployed: No Education: High School Diploma/GED Difficulty w/ Childcare or Family Care: No Living arrangements: with family Additional living arrangements comments: Raven Spiritual care concerns: No Anes - Eval Final PreProcedure Day of Procedure 10/16/24 11:23 Patient weight: normal Heart: regular rate and rhythm Lungs: decreased breath sounds Airway: Mallampati scale class II Neurological: alert and oriented Last oral intake: >/= 8 hours ASA classification: IV Emergent: no Anesthetic plan: proceed Anesthesia type and monitoring: general LMA and standard monitoring Results Review: All pre-operative results and documents have been reviewed as part of the pre- operative evaluation. Informed Consent: The patient's anesthetic plan and its attendant risks and benefits were discussed with the patient/family/POA. Questions were solicited and answers provided to the satisfaction of the patient/family/POA.
[2024-10-16] MEDS: ceFAZolin 2 GM in SODIUM CHLORIDE 0.9% IV 50 ML 100 ML IVPB (12:03)
[2024-10-16] MEDS: LIDOCAINE 2% GEL UROJET 10 ML PKG MUCOUS MEM (12:30)
[2024-10-16] MEDS: MITOMYCIN 28 MG URETHRAL (12:30)
[2024-10-16 12:39] VITALS: BP 129/76; PULSE 64; RESP 12; TEMP 36.6; O2SAT 100
[2024-10-16 12:55] VITALS: BP 126/75; PULSE 55; RESP 18; O2SAT 100
--- NOTE | 2024-10-16 12:59 | W.PM.PROC2 ---
Procedure Note - Detailed Date of Procedure 10/16/24 Pre-op Diagnosis Right renal pelvic cancer Post-op Diagnosis Same Procedure Performed Cystoscopy, desiccation small bladder lesion, right retrograde pyelography, right Jelmyto instillation. Surgeon Vlad Gilliam MD Anesthesia General Description of Procedure Patient is brought to the operative suite was prepped draped in routine sterile fashion in dorsal lithotomy position after the uneventful induction of a general LMA anesthetic. Cystoscopy was 1st undertaken with a 19 F rigid cystoscope. Has a couple small suspicious papillary lesions in the right posterior bladder wall above the right ureteral orifice. I placed a 24 F resectoscope and with a rollerball desiccated this area. A 0.035 in glidewire was advanced in the right renal pelvis and a ureteral catheter was advanced over the guidewire. The retrograde pyelogram was obtained to ensure appropriate positioning of the ureteral catheter in the collecting system. Prior retrograde pyelography had determined a renal pelvic volume of 7cc. We opted to use that prior volume determination for today's instillation. After appropriate reconstitution of the Jelmyto in ice retrograde injection was undertaken through the same ureteral catheter positioned at the UPJ. A total of 7mL (28 mg) of Jelmyto was instilled in the renal pelvis without incident. The volume of Jelmyto wasted was 13 mL (52 mg). the ureteral catheter was allowed to stand for 60 seconds and then removed with ease. Because the patient has no history of ureteral stricture I opted not to place a ureteral stent. Patient tolerated the procedure well was taken to the recovery room in good condition. Drains No Pathology None sent Complications No immediate complications Condition Stable
[2024-10-16 13:10] VITALS: BP 135/73; PULSE 48; RESP 20; O2SAT 100
--- NOTE | 2024-10-16 13:11 | SUR.PHASEI ---
Patient got grumpy with RN when asked if he wanted a drink or snack next door.
[2024-10-16 13:17] VITALS: BP 133/90; PULSE 72; RESP 20
== END 2024-10-16 13:33 | disposition home or self-care (01) ==
PROVIDERS: PCP Emergency Medicine; Visit Provider Urology
PROC: (CPT 52352; principal; 2024-10-16 12:00)
DX: C65.1 Malignant neoplasm of right renal pelvis (principal); N32.9 Bladder disorder, unspecified; E78.5 Hyperlipidemia, unspecified; I10 Essential (primary) hypertension; I25.10 Atherosclerotic heart disease of native coronary artery without angina pectoris; F41.8 Other specified anxiety disorders; K21.9 Gastro-esophageal reflux disease without esophagitis; J44.9 Chronic obstructive pulmonary disease, unspecified; I25.2 Old myocardial infarction; G25.81 Restless legs syndrome; F17.290 Nicotine dependence, other tobacco product, uncomplicated; F12.90 Cannabis use, unspecified, uncomplicated; Z79.02 Long term (current) use of antithrombotics/antiplatelets; Z79.891 Long term (current) use of opiate analgesic; Z79.51 Long term (current) use of inhaled steroids; Z79.82 Long term (current) use of aspirin; Z98.890 Other specified postprocedural states; Z98.61 Coronary angioplasty status; Z85.51 Personal history of malignant neoplasm of bladder; Z86.79 Personal history of other diseases of the circulatory system; Z80.6 Family history of leukemia; Z80.0 Family history of malignant neoplasm of digestive organs; Z82.49 Family history of ischemic heart disease and other diseases of the circulatory system
CPT/HCPCS: 52234; C9789; 74420; J0690; A9270; C1758; C1769; J0461; J1100; J1596; J2405; J2704; J7120; J9281; Q9966

== ENCOUNTER 2024-10-23 01:01 | Day surgery (SDC) | payer MEDICARE, MEDICAID, SELFPAY ==
[2024-10-08 12:42] VITALS: BMI 23.8
--- NOTE | 2024-10-08 12:57 | PC.NURSE ---
Report to the Outpatient Waiting Room, entrance under the green pavilion located off [facility], at time __1000am on date __10/23/24 . Planned Procedure Time: __1200pm .? Time changes happen often and if your time is changed the preop area will call you the afternoon before. - You and your visitor will be asked to self-screen and do not enter if you have any COVID symptoms. Please call surgeon if you need to reschedule. - A mask is optional within the hospital at this time. Patients may have clear liquids (water, carbonated beverages, clear teas, apple juice) until 3 hours prior to surgery with a maximum of 20 ounces. - No food from midnight until time of surgery and no smoking, or chewing tobacco (or any form of nicotine). No chewing gum, candy or mints. (0900am) Take only the following medications with a SIP of water on the morning of surgery: Coreg, Levothyroxine, ellipta Inhaler, Xanax as needed, Hydrocodone if needed DO NOT STOP ANY OF YOUR OTHER PRESCRIPTION MEDICATIONS PRIOR TO SURGERY EXCEPT THE FOLLOWING Hold all vitamins and supplements for [address] Gilliam, except for Calcium per . Medications to discontinue per physician ____Pt is to continue to HOLD ASPIRIN and PLAVIX throughout treatment per Dr DILLON/Tawana, per states. Date to take last dose____Last dose was 09/30/24 Please no make-up, nail romanian, hairspray, perfume, deodorant, or body powder the day of surgery.? No jewelry (including any body piercings) or valuables the day of surgery, leave them at home.? Please take a shower or bath the night before, or the morning of, surgery with an antibacterial soap.? Wear comfortable, loose fitting clothing.? - Jewelry must be removed prior to entering the operating room.? Rings and piercings that are not removed may be cut off. - The hospital will not accept responsibility for valuables.? - Please leave all valuables, including medications, at home the day of surgery. If you are going home after surgery, a licensed regional owner operator truck driver must drive you home.? - NO public transportation without another adult if you receive anesthesia. - We recommend that an adult stay with you for 24 hours following discharge. - We also recommend that you do not drive, make important decision, drink alcoholic beverages, or take any drugs that were not prescribed by your health care provider for at least 24 hours after your discharge time. Follow any additional instructions given to you from your surgeon. Telephone instructions given to ___wife Raven and pt and asked if any additional questions and then verbalized understanding. Patient advised to call surgeon office or pre surgery nurse liaison [phone] if any additional questions.
--- NOTE | 2024-10-20 06:22 | P.HP_ITS ---
History of Present Illness History of Present Illness Consent: Risks, benefits, and alternatives have been discussed and questions answered. Patient agrees to proceed with procedure. 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 Most recently, August 28, he had regrowth a papillary neoplasm in the right mid and lower pole infundibulum. After laser ablation and extensive discussion he elects for Jelmytol installation. He is aware the risk including, but not limited to, recurrent neoplasm with need for further treatment, ureteral stricture, hematuria. This will be his 4th instillation. Review of Systems Cardiovascular: Cardiovascular: Denies chest pain, Denies lightheadedness, Denies palpitations and Denies dyspnea Respiratory: Respiratory: Denies dyspnea Gastrointestinal: Gastrointestinal: Denies diarrhea, Denies nausea and Denies vomiting Genitourinary: Genitourinary: Denies hematuria and Denies dysuria Endocrine: Endocrine: Denies palpitations PMFSH Past Medical History Medical History Non-cardiac chest pain Gastroesophageal reflux disease Chronic obstructive pulmonary disease ST elevation myocardial infarction (STEMI) (07/2012) Restless leg syndrome Hepatitis C virus infection resolved after antiviral drug therapy Bladder cancer Continuous tobacco abuse Coronary artery disease Hypothyroidism Essential hypertension Hyperlipidemia Anxiety and depression Surgical History Surgical History History of cystoscopy Abnormal cystoscopy x8 Right eye trauma History of cardiac catheterization (08/01/12) Aspiration thrombectomy, PTCA, stent x2 in overlapping fashion in major diagonal branch. Per Dr. Gresham. Family History Family History Mother Acute myocardial infarction Leukemia Father Colon cancer Sibling Heart problem Social History Social History Social History: Surrogate medical decision maker: Jodee Álvarez, spouse. Code status: Full code. Smoking packs per day: 1 Smoking cigarettes per day: 20.0 Years smoked: 30 Smoking pack-years: 30.00 Smoking status: Former smoker Tobacco type: cigarettes, pipe and cigars Second hand tobacco smoke exposure: Yes Smoking end date: 03/12/94 Additional smoking assessment comments: still smokes cigars and pipes no inhale Alcohol intake: current Drinks per week: 2 Alcohol use details: BEER Substance use: current Substance use type: marijuana Other substance usage details: 3 x weekly smokes it Last use: 12/25/22 Do You Feel Safe in your Home?: Yes Lack of Transportation: No Lack of Food: Never True Current Housing: I Have Housing Concerned About Future Housing: No Difficulty Paying Gas/Electric Bills: No Difficulty Paying for Meds: No Currently Unemployed: No Education: High School Diploma/GED Difficulty w/ Childcare or Family Care: No Living arrangements: with family Additional living arrangements comments: [place] Spiritual care concerns: No Meds Home Medications and Allergies Home Medications ?Medication ?Instructions ?Recorded ?Confirmed ?Type alprazolam 1 mg tablet (Xanax) 1 mg PO DAILY PRN Anxiety 09/14/20 10/08/24 History atorvastatin 40 mg tablet (Lipitor) 40 mg PO DAILY 09/14/20 10/09/24 History calcium phosphate,dibasic 77 50,000 tablet PO [id number] 09/14/20 10/08/24 History mg-vitamin D3 400 unit tablet carvedilol 3.125 mg tablet (Coreg) 3.125 mg PO BID 09/14/20 10/09/24 History clopidogrel 75 mg tablet (Plavix) 75 mg PO DAILY 09/14/20 10/09/24 History hydrocodone 10 mg-acetaminophen 1 tablet PO Q6-8H PRN Pain 09/14/20 10/08/24 History 325 mg tablet levothyroxine 88 mcg tablet 88 mcg PO DAILY 09/14/20 10/09/24 History (Synthroid) lisinopril 10 mg tablet (Zestril) 10 mg PO DAILY 09/14/20 10/09/24 History albuterol sulfate 90 mcg/actuation 2 puff inhalation QID PRN 05/03/21 10/08/24 History aerosol inhaler Shortness Of Breath nitroglycerin 0.4 mg sublingual 0.4 mg sublingual Q5-15M PRN Chest 05/03/21 10/08/24 History tablet Pain umeclidinium 62.5 mcg/actuation 1 inh inhalation DAILY 05/03/21 10/09/24 History blister powder for inhalation (Incruse Ellipta) aspirin 81 mg chewable tablet 81 mg PO DAILY 07/28/22 10/09/24 History pantoprazole 40 mg tablet,delayed 20 mg PO QAM 08/20/24 10/09/24 History release Allergies Allergy/AdvReac Type Severity Reaction Status Date / Time propoxyphene Allergy Intermediate Hives, Verified 10/09/24 09:56 N/V, Confusion Exam Const: General: no acute distress Resp: Effort & Inspection: normal respiratory effort GI: Inspection: non-distended GI Palp: No abdominal tenderness and No Guarding due to palpation present (GI) Auscultation: normal bowel sounds Assessment and Plan Assessment and plan (1) Cancer of right renal pelvis: Code(s): C65.1 - Malignant neoplasm of right renal pelvis Status: Acute Assessment and Plan: * Cystoscopy, right retrograde pyelogram, right Jelmyto instillation
[2024-10-23] VITALS (8 sets, daily range): BP systolic 105–142; BP diastolic 64–98; PULSE 57–79; RESP 10–20; TEMP 36.3–36.5; O2SAT 95–100
--- NOTE | ~2024-10-23 | XR_ITS ---
EXAMINATION: XR retrograde pyelogram RT DATE: 10/23/2024 11:54 INDICATION: Right retrograde pyelogram. TECHNIQUE: 59 fluoroscopic images of the abdomen and pelvis were obtained during procedure performed by Dr. Gilliam. Radiologist was not present for the imaging or procedure. The amount of fluoroscopy ti me used during this procedure was 2.5 minutes. Total DAP was 0.462 mGym^2. COMPARISON: 10/16/2024 FINDINGS: No evident urolithiasis on the brake adjuster images. Subsequent images demonstrate retrograde cannulation of the right ureter with contrast injection opacifying the right renal collecting system rather. The mil d right hydronephrosis increased since the prior study. IMPRESSION: 1. Fluoroscopy utilized during right retrograde portogram which demonstrates mild right hydronephrosi s. Reviewed, dictated and finalized at location A. IMPRESSION: 1. Fluoroscopy utilized during right retrograde portogram which demonstrates mi ld right hydronephrosis.
--- OUTSIDE RECORDS SUMMARY | 2024-10-23 01:03 | XMS_ITS | Encounter Summary ---
Author Organization [facility] Address [address] [place] [address] Phone Care Team Providers Care Slag Mixer Name Role Phone Iker Feldman Primary Care Provider [phone] Juan Gresham MD Unavailable Hemant Delgado MD Unavailable Encounter Details Date Type Department Care Team (Late st Contact Info) Description 04/26/2021 Transcribe Orders [facility] Preop/Pacu II [address] [place] [address] Hemant Delgado MD #[address] [address] Pre-op testing (Primary Dx) Social History Tobacco [...] COVID-19? 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 CARTON FOLDER documented as of this encounter Plan of Treatment Not on file documented as of this encounter Visit Diagnoses Diagnosis Pre-op testing- Primary Preoperative examination, unspecified documented in this encounter Care Teams Slag Mixer Relationship Specialty Start Date End Date Iker Feldman [address] [place] [address] PCP - General Family Medicine 12/05/17 Juan Gresham MD [address] [facility] [address] [place] [address] Cardiovascular Disease - Cardiology 12/05/17 Hemant Delgado MD #2 [facility] [address] [place] [address] Consulting Physician Urology 01/19/22 documented as of this encounter
--- OUTSIDE RECORDS SUMMARY | 2024-10-23 01:03 | XMS_ITS | Encounter Summary ---
Author Organization [facility] Address [address] [place] [address] Phone Care Team Providers Care Web Press Roll Tender Name Role Phone Gaston Iker Primary Care Provider [phone] Juan Gresham MD Unavailable Hemant Delgado MD Unavailable Reason for Referral * Radiology Services (Routine) - Closed Specialty Diagnoses / Procedures Referred By Contac t Referred To Contact Radiology Diagnoses Pre-op testing Procedures EKG 12 LEAD Laurent Abebe APRN, CRNA #1 [place] [address] Phone: tel: fax: Referral ID Status Reason Start Date Expiration Date Visits Re quested Visits Authorized [id number] Closed 03/29/2021 1 1 R GIFTS OFFICER Encounter Details Date Type Department Care Team (Late st Contact Info) Description 03/29/2021 Transcribe Orders [facility] Preop/Pacu II 1 [place] [id number] Laurent Abebe APRN, CRNA #1 [place] [address] Pre-op testing (Primary Dx) Social History Tobacco [...] COVID-19? No / Unsure 03/29/2021 2:12 PM MAJOR GIFTS OFFICER documented as of this encounter Plan of Treatment Not on file documented as of this encounter Results * HEMOGLOBIN & HEMATOCRIT (H&H) (04/25/2021 7:56 AM MAJOR GIFTS OFFICER) HEMOGLOBIN (HGB) 14.7 13.0 - 16.5 g/dL 04/25/2021 8:12 AM MAJOR GIFTS OFFICER [facility] HEMATOCRIT (HCT) 44.9 38.0 - 50.0 % 04/25/2021 8:12 AM MAJOR GIFTS OFFICER [facility] Blood Venipuncture / Unknown 04/25/2021 7:56 AM MAJOR GIFTS OFFICER 04/25/2021 8:07 AM MAJOR GIFTS OFFICER us Laurent Nathanatzmarek SHUTDOWN COORDINATOR, RETENTION REPRESENTATIVE HEMATOLOGY ORDERAB LES Final Result [facility] #[address] [place] [address] * (ABNORMAL) BASIC METABOLIC PANEL W/ CALCIUM TOTAL (04/25/2021 7:56 AM MAJOR GIFTS OFFICER) SODIUM 133(L) 136 - 144 mmol/L 04/25/2021 8:32 AM MAJOR GIFTS OFFICER [facility] POTASSIUM 4.6 3.5 - 5.1 mmol/L 04/25/2021 8:32 AM [facility] CHLORIDE 99(L) 100 - 110 mmol/L 04/25/2021 8:32 AM [facility] CO2, VENOUS 27 22 - 32 mmol/L 04/25/2021 8:32 AM [facility] ANION GAP 11.6 8.0 - 20.0 mmol/L 04/25/2021 8:32 AM [facility] GLUCOSE 111(H) 70 - 99 mg/dL 04/25/2021 8:32 AM MAJOR GIFTS OFFICER [facility] BUN 11 8 - 23 mg/dL 04/25/2021 8:32 AM [facility] CREATININE, BLOOD 0.90 0.80 - 1.30 mg/dL 04/25/2021 8:32 AM [facility] BUN/CREATININE RATIO 12 12 - 20 ratio 04/25/2021 8:32 AM [facility] CALCIUM 9.4 8.9 - 10.3 mg/dL 04/25/2021 8:32 AM [facility] GFR, EST. NONAFRICAN >60 >=60 04/25/2021 8:32 AM [facility] GFR, EST. >60 >=60 04/25/2021 8:32 AM [facility] Comment: Creatinine Clearance is the preferred criteria for selecting drug dose adjustments in renally impaired patients. The GFR is provided as additional pertinent clinical information. GFR is reported in mL/min/1.73 sq m. IS THE PATIENT REQUIRED TO BE FASTING? No 04/25/2021 8:32 AM [facility] Blood Venipuncture / Unknown 04/25/2021 7:56 AM MAJOR GIFTS OFFICER 04/25/2021 8:07 AM MAJOR GIFTS OFFICER us Laurent Etelvina Purchatzke SHUTDOWN COORDINATOR, RETENTION REPRESENTATIVE CHEMISTRY ORDERABL ES Final Result [facility] #[address] [place] [address] * EKG 12 LEAD (04/25/2021 7:43 AM MAJOR GIFTS OFFICER) Ventricular Rate BPM EXTERNAL EKG Atrial Rate BPM EXTERNAL EKG P-R Interval 194 ms EXTERNAL EKG QRS Duration 100 ms EXTERNAL EKG Q-T Duration 472 ms EXTERNAL EKG QTC CALCULATION 427 ms EXTERNAL EKG P [place] 79 degrees EXTERNAL EKG R [place] 49 degrees EXTERNAL EKG T [place] 67 degrees EXTERNAL EKG 04/25/2021 7:43 AM MAJOR GIFTS OFFICER Impressions EXTERNAL EKG - 04/25/2021 9:08 AM MAJOR GIFTS OFFICER Sinus bradycardia Abnormal R wave progression (?ASMI [...] significant changes noted Confirmed by Lauren Mahmood [id number] on 04/25/2021 9:08:06 AM us Laurent Abebe SHUTDOWN COORDINATOR, RETENTION REPRESENTATIVE IMG ECG ORDERABLES Final Result EXTERNAL EKG documented in this encounter Visit Diagnoses Diagnosis Pre-op testing- Primary Preoperative examination, unspecified Pre-op testing Preoperative examination, unspecified documented in this encounter Care Teams Web Press Roll Tender Relationship Specialty Start Date End Date Iker Feldman [address] [address] PCP - General Family Medicine 12/05/17 Juan Gresham MD [address] [facility] [address] [place] [address] Cardiovascular Disease - Cardiology 12/05/17 Hemant Delgado MD #[address] [address] Consulting Physician Urology 01/19/22 documented as of this encounter
--- OUTSIDE RECORDS SUMMARY | 2024-10-23 01:04 | XMS_ITS | Clinical Summary ---
Author Organization [facility] [address] Address [address] [place] [address] Care Team Providers Care Salvage Worker Name Role Phone Iker Feldman MD Primary Care Provider [phone] Iker Feldman MD Unavailable [phone] Allergies Active Allergy Reactions Criticality Noted Date [...] 1 tablet (88 mcg total) by mouth overweaver before breakfast Active albuterol HFA (PROVENTIL HFA,VENTOLIN [...] needed for pain Active cholecalciferol (VITAMIN D-3) 28997 unit tablet Take 1 tablet (50,000 Units total) by mouth once a week Active carvediloL (COREG) 3.125 mg tabletIndication s:Coronary artery disease involving [place] coronary artery of [place] heart without angina pectoris Take 1 tablet (3.125 mg total) by mouth 2 (two) times a day with meals 180 tablet 3 11/01/19 24 Active nitroglycerin (NITROSTAT) 0.4 mg SL tabletIndication s:Coronary artery disease involving [place] coronary artery of [place] heart without angina pectoris Place 1 tablet (0.4 mg total) under the tongue every 5 (five) minutes as needed for chest pain Up to 3 doses 25 tablet 11/01/19 24 Active lisinopriL (PRINIVIL,ZESTRI L) 10 mg tabletIndication s:Coronary artery disease involving [place] coronary artery of [place] heart without angina pectoris TAKE ONE TABLET BY MOUTH EVERY DAY 90 tablet 10/14/19 25 Active clopidogreL (PLAVIX) 75 mg tabletIndication s:Coronary artery disease involving [place] coronary artery of [place] heart without angina pectoris TAKE ONE TABLET BY MOUTH DAILY 90 tablet 10/14/19 25 Active atorvastatin (LIPITOR) 40 mg tabletIndication s:Coronary artery disease involving [place] coronary artery of [place] heart without angina pectoris TAKE ONE TABLET BY MOUTH DAILY 90 tablet 10/14/19 25 Active clopidogreL (PLAVIX) 75 mg tabletIndication s:Coronary artery disease involving [place] coronary artery of [place] heart without angina pectoris Take 1 tablet (75 mg total) by mouth daily 90 tablet 3 11/01/19 24 025 Discontinued atorvastatin (LIPITOR) 40 mg tabletIndication s:Coronary artery disease involving [place] coronary artery of [place] heart without angina pectoris Take 1 tablet (40 mg total) by mouth daily 90 tablet 3 11/01/19 24 025 Discontinued lisinopriL (PRINIVIL,ZESTRI L) 10 mg tabletIndication s:Coronary artery disease involving [place] coronary artery of [place] heart without angina pectoris TAKE ONE TABLET BY MOUTH DAILY 90 tablet 2 02/18/20 24 025 Discontinued Active Problems Problem Noted Date Diagnosed Date Atherosclerosis of coronary artery 12/12/2013 Overview (06/15/2016): Coronary atherosclerosis Encounters Date Type Department Care Team Description 08/19/2024 Telephone [facility] Cardiology [address] [place] [address] Perri Lux NP preop form [...] on file Legal Sex Male 9: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
--- OUTSIDE RECORDS SUMMARY | 2024-10-23 01:04 | XMS_ITS | Encounter Summary ---
Author Organization [facility] Address [address] [address] Phone Care Team Providers Care Toeing Stockings Name Role Phone Iker Feldman Primary Care Provider [phone] Juan Gresham MD Unavailable Hemant Delgado MD Unavailable Encounter Details Date Type Department Care Team (Late st Contact Info) Description 05/16/2021 Transcribe Orders [facility] Preop/Pacu II [address] [place] [address] Hemant Delgado MD #[address] [address] Pre-op testing (Primary Dx) Social History Tobacco [...] COVID-19? No / Unsure 05/17/2021 11:10 AM TECHNOLOGY TEACHER documented as of this encounter Plan of Treatment Not on file documented as of this encounter Results * SARS-COV-2 BY MOLECULAR (05/17/2021 11:13 AM TECHNOLOGY TEACHER) SARSCOV2 NOT DETECTED (Referen ce Range for this test is Not Detected ) [facility] THERMOFISHER FAST DX 05/18/2021 11:52 AM TECHNOLOGY TEACHER [facility] Comment:This test was perfor med by a RT-PCR method. Other NASOPHARYNGEAL STRUCTURE / Unknown Non-Phlebotomy Collection / Unknown 05/17/2021 11:13 AM TECHNOLOGY TEACHER 05/17/2021 11:57 AM TECHNOLOGY TEACHER Narrative [facility] - 05/18/2021 11:52 AM TECHNOLOGY TEACHER Authorized Fact Sheets about this test for providers and patients are available at: https://www.fda.gov/medical-devices/uqaztwpau-ylbeizxewk-aixpakc-devices/emergen cy-us e-authorizations us Hemant Delgado MD MICROBIOLOGY - GENERAL ORDERABLE S Final Result [facility] [address] [place] [address], documented in this encounter Visit Diagnoses Diagnosis Pre-op testing- Primary Preoperative examination, unspecified documented in this encounter Care Teams Toeing Stockings Relationship Specialty Start Date End Date Iker Feldman [address] [place] [address] PCP - General Family Medicine 12/05/17 Juan Gresham MD [address] [facility] [place] [address] [place] [address] Cardiovascular Disease - Cardiology 12/05/17 Hemant Delgado MD #2 [facility], [address] [address] Consulting Physician Urology 01/19/22 documented as of this encounter
--- OUTSIDE RECORDS SUMMARY | 2024-10-23 01:04 | XMS_ITS | Clinical Summary ---
Author Organization [facility] Address [address] [place] [address] Phone Care Team Providers Care Carrier Operator Name Role Phone Iker Feldman Primary Care Provider [phone] Juan Gresham MD Unavailable Hemant Delgado MD [...] minutes as needed. Active ergocalciferol (VITAMIN D) 89139 UNIT Capsule Take 1 Capsule by mouth. [...] Comments Blood Pressure 138/74 01/19/2022 8:53 AM PHD INTERNSHIP Pulse 54 01/19/2022 8:53 AM PHD INTERNSHIP Temperature 36.4 C (97.6 F) 01/19/2022 8:53 AM PHD INTERNSHIP Respiratory Rate 18 01/19/2022 8:53 AM PHD INTERNSHIP Oxygen Saturation 98% 01/19/2022 8:53 AM PHD INTERNSHIP Inhaled Oxygen Concentration - - Weight 72.2 kg (159 lb 3.2 oz) 01/19/2022 8:53 A M PHD INTERNSHIP Height 174 cm (5' 8.5) 09/16/2021 11:49 [...] this topic Medical Devices Implanted Type Area Traffic Administrator Device Identifier Shelf Expiration Date Model / Serial / Lot Stent Ureteral 6fr 2.1fr 26cm 2 Pigtail Curve 2 Durometer Taper Tip Loprfl Graduated Polaris Ultra - [id number] Implanted:Qty : 1 on 03/19/2018 by Viviana Junior MD at [facility] IMPLANT Right: Ureter [employer] 10/03/2020 [id number] 0 / [id number] 0 / [id number] Stent Ureteral 6fr 2.1fr 24cm 2 Pigtail Curve 2 Durometer Taper Tip Loprfl Graduated Polaris Ultra - [id number] Implanted:Qty : 1 on 04/29/2021 by Hemant Delgado MD at [facility] IMPLANT Left: Ureter [employer] 01/12/2024 [id number] 0 / [id number] 0 / [id number] Stent Ureteral 6fr 2.1fr 24cm 2 Pigtail Curve 2 Durometer Taper Tip Loprfl Graduated Polaris Ultra - [id number] Implanted:Qty : 1 on 05/20/2021 by Hemant Delgado MD at [facility] IMPLANT Left: Ureter [employer] 02/04/2024 [id number] 0 / [id number] 0 / [id number] Stent Ureteral 6fr 2.1fr 24cm 2 Pigtail Curve 2 Durometer Taper Tip Loprfl Graduated Polaris Ultra - [id number] Implanted:Qty : 1 on 05/20/2021 by Hemant Delgado MD at [facility] IMPLANT Right: Ureter [employer] 02/04/2024 [id number] 0 / [id number] 0 / [id number] Stent Ureteral 6fr 2.1fr 28cm 2 Pigtail Curve 2 Durometer Taper Tip Loprfl Graduated Polaris Ultra - [id number] Implanted:Qty : 1 on 09/09/2021 by Hemant Deglado MD at [facility] IMPLANT Right: Ureter [employer] 02/08/2024 [id number] 0 / [id number] 0 / [id number] Explanted Type Area Traffic Administrator Device Identifier Shelf Expiration Date Model / Serial / Lot Stent Ureteral 6fr 2.1fr 24cm 2 Pigtail Curve 2 Durometer Taper Tip Loprfl Graduated Passworks Ultra - [id number] Implanted:Qty : 1 on 04/29/2021 [facility] Explanted:Qty : 1 on 05/20/2021 by [facility] IMPLANT Right: Ureter [employer] 01/12/2024 [id number] 0 / [id number] 0 / [id number] Procedures Procedure Name Priority Date/Time Associated Diagnosis Comments PSA SCREEN Routine 09/18/2017 from Last 3 Months or Most Recently Relevant to Health Maintenance Results * PSA SCREEN (09/18/2017) PSA (PROSTATE SPECIFIC ANTIGEN) 0.4 ng/mL Blood specimen (specimen) 09/18/2017 Evaristo Ladd MD CHEMISTRY ORDERABLES Edited Res ult - Final from Last 3 Months or Most Recently Relevant to Health Maintenance Insurance MEDICA[place], [place] [id number] [place] [address] Advance Directives Documents on File Type Date Recorded Patient Academic Affairs Director Expl anation Other Advance Directive 09/21/2021 3:35 [...] Medical Clearance fo r surgery Care Teams Carrier Operator Relationship Specialty Start Date End Date Feldman Iker [address] [place] [address] PCP - General Family Medicine 12/05/17 Juan Gresham MD [address] [facility] [address] [place] [address] Cardiovascular Disease - Cardiology 12/05/17 Hemant Delgado MD #2 [facility] [address] [place] [address] Consulting Physician Urology 01/19/22
--- OUTSIDE RECORDS SUMMARY | 2024-10-23 01:04 | XMS_ITS | Encounter Summary ---
Author Organization [facility] Address [address] [place] [address] Phone Care Team Providers Care Tool Clerk Name Role Phone Iker Feldman Primary Care Provider [phone] Juan Gresham MD Unavailable Hemant Delgado MD Unavailable Encounter Details Date Type Department Care Team (Late st Contact Info) Description 03/29/2021 Transcribe Orders [facility] Preop/Pacu II 1 [place] [address] Hemant Delgado MD #[address] [address] Pre-op testing (Primary Dx) Social History Tobacco [...] COVID-19? No / Unsure 03/29/2021 2:12 PM CELL TESTER documented as of this encounter Plan of Treatment Not on file documented as of this encounter Results * SARS-COV-2 BY MOLECULAR (04/25/2021 7:54 AM CELL TESTER) SARSCOV2 NOT DETECTED (Referen ce Range for this test is Not Detected ) [facility] THERMOFISHER FAST DX 04/25/2021 6:50 PM CELL TESTER [facility] Comment:This test was perfor med by a RT-PCR method. Other NASOPHARYNGEAL STRUCTURE / Unknown Non-Phlebotomy Collection / Unknown 04/25/2021 7:54 AM CELL TESTER 04/25/2021 8:44 AM CELL TESTER Narrative [facility] - 04/25/2021 6:50 PM CELL TESTER Authorized Fact Sheets about this test for providers and patients are available at: https://www.fda.gov/medical-devices/euyrgthdf-xwqitqduhv-oifojvo-devices/emergen cy-us e-authorizations us Hemant Delgado MD MICROBIOLOGY - GENERAL ORDERABLE S Final Result [facility] [address] [place] [address], documented in this encounter Visit Diagnoses Diagnosis Pre-op testing- Primary Preoperative examination, unspecified documented in this encounter Care Teams Tool Clerk Relationship Specialty Start Date End Date Iker Feldman [address] [place] [address] PCP - General Family Medicine 12/05/17 Juan rGesham MD [address] [facility] [place] [address] [place] [address] Cardiovascular Disease - Cardiology 12/05/17 Hemant Delgado MD #2 [facility], [address] [address] Consulting Physician Urology 01/19/22 documented as of this encounter
--- OUTSIDE RECORDS SUMMARY | 2024-10-23 01:04 | XMS_ITS | Encounter Summary ---
Author Organization [facility] Address [address] [place] [address] Phone Care Team Providers Care Health Sciences Dean Name Role Phone Iker Feldman Primary Care Provider [phone] Juan Gresham MD Unavailable Hemant Delgado MD Unavailable Encounter Details Date Type Department Care Team (Late st Contact Info) Description 03/29/[address] [facility] Preop/Pacu II [address] [place] [id number] Hemant Delgado MD #[address] [address] Social History Tobacco Use Types Packs/Day Years [...] COVID-19? No / Unsure 03/29/2021 2:12 PM CYCLING INSTRUCTOR documented as of this encounter Plan of Treatment Not on file documented as of this encounter Visit Diagnoses Not on filedocumented in this encounter Care Teams Health Sciences Dean Relationship Specialty Start Date End Date Iker Feldman [address] [facility] [place] [address] PCP - General Family Medicine 12/05/17 Juan Gresham MD [address] [facility] [address] [place] [address] Cardiovascular Disease - Cardiology 12/05/17 Hemant Delgado MD #2 [facility] [address] [place] [address] Consulting Physician Urology 01/19/22 documented as of this encounter
--- OUTSIDE RECORDS SUMMARY | 2024-10-23 01:05 | XMS_ITS | Continuity of Care Document ---
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 tel:[phone] OFFICE/OUTPA TIENT VISIT, EST [facility], [address], [place], [place], [address], [place] tel:[phone] [facility] pain (chief complaint)anxie ty1 (chief complaint)anemi a1 (chief complaint)bladd er CA (chief complaint) AnemiaChronic pain syndromeMalign ant neoplasm of bladder, unspecifiedOth er insomnia 5 Gaston Pickett [address], [place], [place], [address] , [place]. tel:[phone] PREV VISIT, EST, 65 & OVER [facility], [address], [place], [place], [address], [place] tel:[phone] [facility] physical (chief complaint) Centrilobular emphysemaChron ic pain syndromeMalign ant neoplasm of bladder, unspecifiedHyp othyroidismMix ed hyperlipidemia Encounter for general adult medical exam w abnormal findingsCorona ry artery disease of [place] coronary artery w/o angina pectorisGERD without esophagitis 5 Gaston Pickett [address], [place], [place], [address] , [place]. tel:[phone] OFFICE/OUTPA TIENT VISIT, [facility], [address], [place], [place], [address], [place] tel:[phone] [facility] pain (chief complaint)anxie ty1 (chief complaint)COPD1 (chief complaint) Chronic pain syndromePrimar y insomniaCentri lobular emphysemaPerso nal history of nicotine dependenceMali gnant neoplasm of bladder, unspecified July-0 8- 5 Feldman Iker. [address], [place], [place], [address] , [place]. [phone] OFFICE/OUTPA TIENT VISIT, [facility], [address], [place], [place], [address], [place] tel:[phone] [facility] pain (chief complaint)anxie ty1 (chief complaint) Chronic pain syndromePrimar y insomnia Apr-0 7- 5 Gaston Dong. [address], [place], [place], [address] , [place]. tel:[phone] OFFICE/OUTPA TIENT VISIT, [facility], [address], [place], [place], [address], [place] tel:[phone] [facility] pain (chief complaint)anxie ty1 (chief complaint) Chronic pain syndromePrimar y insomnia May-0 4-202 5 Gaston Dong. [address], [place], [place], [address] , [place]. [phone] OFFICE/OUTPA TIENT VISIT, [facility], [address], [place], [place], [address], [place] tel:[phone] [facility] pain (chief complaint)anxie ty1 (chief complaint)COPD1 (chief complaint) Chronic pain syndromeCentri lobular emphysemaPrima ry insomnia Feb-0 6-202 5 Feldman Iker. [address], [place], [place], [address] , [place]. tel:[phone] OFFICE/OUTPA TIENT VISIT, [facility], [address], [place], [place], [address], [place] tel:[phone] [facility] pain (chief complaint)anxie ty1 (chief complaint)thyro id1 (chief complaint) Chronic pain syndromePrimar y insomniaHypoth yroidism 5 Gaston Dong. [address], [place], [place], [address] , [place]. tel:[phone] OFFICE/OUTPA TIENT VISIT, [facility], [address], [place], [place], [address], [place] tel:[phone] [facility] pain (chief complaint)anxie ty1 (chief complaint) Chronic pain syndromePrimar y insomnia 4 Gaston Dong. [address], [place], [place], [address] , [place]. tel:[phone] OFFICE/OUTPA TIENT VISIT, [facility], [address], [place], [place], [address], [place] tel:[phone] [facility] pain (chief complaint)anxie ty1 (chief complaint)COPD1 (chief complaint) Chronic pain syndromePrimar y insomniaCentri lobular emphysema 4 Gaston Dong. [address], [place], [place], [address] , [place]. tel:[phone] OFFICE/OUTPA TIENT VISIT, [facility], [address], [place], [place], [address], [place] tel:[phone] [facility] pain (chief complaint)anxie ty1 (chief complaint) Chronic pain syndromePrimar y insomnia 4 Gaston Dong. [address], [place], [place], [address] , [place]. tel:[phone] OFFICE/OUTPA TIENT VISIT, [facility], [address], [place], [place], [address], [place] tel:[phone] [facility] pain (chief complaint)anxie ty1 (chief complaint) Chronic pain syndromePrimar y insomnia 4 Feldman Iker. [address], [place], [place], [address] , [place]. tel:[phone] OFFICE/OUTPA TIENT VISIT, [facility], [address], [place], [place], [address], [place] tel:[phone] [facility] pain (chief complaint)anxie ty1 (chief complaint)COPD1 (chief complaint) Centrilobular emphysemaChron ic pain syndromePrimar y insomnia 4 Feldamn Iker. [address], [place], [place], [address] , [place]. tel:[phone] OFFICE/OUTPA TIENT VISIT, [facility], [address], [place], [place], [address], [place] tel:[phone] [facility] pain (chief complaint)anxie ty1 (chief complaint) Chronic pain syndromePrimar y insomnia 4 Feldman Iker. [address], [place], [place], [address] , [place]. tel:[phone] OFFICE/OUTPA TIENT VISIT, [facility], [address], [place], [place], [address], [place] tel:[phone] [facility] pain (chief complaint)anxie ty1 (chief complaint)COPD1 (chief complaint)bladd er Ca (chief complaint) Centrilobular emphysemaChron ic pain syndromePrimar y insomniaMalign ant neoplasm of bladder, unspecified 4 Feldman Iker. [address], [place], [place], [address] , [place]. tel:[phone] OFFICE/OUTPA TIENT VISIT, [facility], [address], [place], [place], [address], [place] tel:[phone] [facility] pain (chief complaint)anxie ty (chief complaint)thyro id1 (chief complaint)HLP (chief complaint) Chronic pain syndromeHypoth yroidismMixed hyperlipidemia Primary insomniaCentri lobular emphysema July- 4 Gaston Dong. [address], [place], [place], [address] , [place]. tel:[phone] PREV VISIT, EST, 65 & OVER [facility], [address], [place], [place], [address], [place] tel:[phone] [facility] physical (chief complaint) Encounter for general adult medical exam w abnormal findingsCentri lobular emphysemaChron ic pain syndromePrimar y insomniaHypoth yroidismMalign ant neoplasm of bladder, unspecifiedGER D w/o esophagitisCor onary artery disease of [place] coronary artery w/o angina pectoris Jun- 4 Gaston Dong. [address], [place], [place], [address] , [place]. [phone] OFFICE/OUTPA TIENT VISIT, [facility], [address], [place], [place], [address], [place] tel:[phone] [facility] pain (chief complaint)anxie ty1 (chief complaint) Chronic pain syndromePrimar y insomnia May- 4 Gaston Dong. [address], [place], [place], [address] , [place]. [phone] OFFICE/OUTPA TIENT VISIT, [facility], [address], [place], [place], [address], [place] tel:[phone] [facility] pain (chief complaint)anxie ty1 (chief complaint)COPD1 (chief complaint) Centrilobular emphysemaChron ic pain syndromePrimar y insomnia Apr- 4 Gaston Dong. [address], [place], [place], [address] , [place]. tel:[phone] OFFICE/OUTPA TIENT VISIT, [facility], [address], [place], [place], [address], [place] tel:[phone] [facility] pain (chief complaint)anxie y1 (chief complaint)hypot hyroidism1 (chief complaint) Hypothyroidism Chronic pain syndromePrimar y insomnia Mar- 4 Feldman Iker. [address], [place], [place], [address] , [place]. tel:[phone] OFFICE/OUTPA TIENT VISIT, [facility], [address], [place], [place], [address], [place] tel:[phone] [facility] pain (chief complaint)anxie ty1 (chief complaint) Chronic pain syndromePrimar y insomnia Feb- 3 Gaston Dong. [address], [place], [place], [address] , [place]. tel:[phone] OFFICE/OUTPA TIENT VISIT, [facility], [address], [place], [place], [address], [place] tel:[phone] [facility] pain (chief complaint)pain (chief complaint)anxie ty1 (chief complaint) Chronic pain syndromePrimar y insomnia Jan- 3 Gaston Dong. [address], [place], [place], [address] , [place]. tel:[phone] OFFICE/OUTPA TIENT VISIT, [facility], [address], [place], [place], [address], [place] tel:[phone] [facility] pain (chief complaint)anxie ty1 (chief complaint) Chronic pain syndromePrimar y insomnia Jan-0 3 Gaston Iker. [address], [place], [place], [address] , [place]. tel:[phone] OFFICE/OUTPA TIENT VISIT, [facility], [address], [place], [place], [address], [place] tel:[phone] [facility] pain (chief complaint)anxie ty1 (chief complaint)hypot hyroidism1 (chief complaint) Chronic pain syndromePrimar y insomniaHypoth yroidism 3 Gaston Dong. [address], [place], [place], [address] , [place]. tel:[phone] OFFICE/OUTPA TIENT VISIT, [facility], [address], [place], [place], [address], tel:[phone] [facility] pain (chief complaint)anxie ty1 (chief complaint) Chronic pain syndromePrimar y insomnia Sep-0 3 Gaston Dong. [address], [place], [place], [address] , [place]. tel:[phone] OFFICE/OUTPA TIENT VISIT, [facility], [address], [place], [place], [address], [place] tel:[phone] [facility] PAIN (chief complaint)anxie ty1 (chief complaint)bladd er CA1 (chief complaint) Chronic pain syndromePrimar y insomniaMalign ant neoplasm of bladder, unspecifiedAcq uired renal cystCentrilobu lar emphysema Oct- 3 Gaston Dong. [address], [place], [place], [address] , [place]. tel:[phone] OFFICE/OUTPA TIENT VISIT, [facility], [address], [place], [place], [address], [place] tel:[phone] [facility] pain (chief complaint)anxie ty1 (chief complaint)GERD1 (chief complaint) Cervantes's esophagus without dysplasiaChron ic pain syndromePrimar y insomnia Sep-0 3 Gaston Dong. [address], [place], [place], [address] , [place]. tel:[phone] OFFICE/OUTPA TIENT VISIT, [facility], [address], [place], [place], [address], [place] tel:[phone] [facility] pain (chief complaint)anxie ty1 (chief complaint)hemae mesis1 (chief complaint)kidne y tumor1 (chief complaint) HematemesisChr onic pain syndromePrimar y insomniaMalign ant neoplasm of bladder, unspecified Bebeto-0 3 Gaston Dong. [address], [place], [place], [address] , . tel:[phone] OFFICE/OUTPA TIENT VISIT, EST [facility], [address] [place], [place], [address], tel:[phone] [facility] hematemesis1 (chief complaint) HematemesisBar rett's esophagus without dysplasiaAther osclerotic heart disease of [place] coronary artery without angina pectoris 3 Gaston Pickett [address], [place], [place], [address] , [place]. tel:[phone] OFFICE/OUTPA TIENT VISIT, EST [facility], [address], [place], [place], [address], tel:[phone] [facility] pain (chief complaint)insom nia1 (chief complaint) Chronic pain syndromePrimar y insomnia 3 Gaston Dong. [address], [place], [place], [address] , [place]. tel:[phone] PREV VISIT, EST, 65 & OVER [facility], [address], [place], [place], [address], [place] tel:[phone] [facility] physical (chief complaint) Encounter for general adult medical exam w abnormal findingsHypoth yroidismChroni c pain syndromeCentri lobular emphysemaEleva palomo prostate specific antigen [PSA]Asymptoma tic microscopic hematuriaMixed hyperlipidemia Cervantes's esophagus without dysplasiaPrima ry insomnia 3 Gaston Pickett [address], [place], [place], [address] , [place]. tel:[phone] OFFICE/OUTPA TIENT VISIT, EST [facility], [address] [place], [address], [place] tel:[phone] [facility] pain (chief complaint)insom nia1 (chief complaint)HTN (chief complaint)thyro id1 (chief complaint)bladd er CA (chief complaint) Chronic pain syndromePrimar y insomniaHypoth yroidismEssent ial (primary) hypertensionMi xed hyperlipidemia Malignant neoplasm of bladder, unspecified 3 Gaston Dong. [address], [place], [place], [address] , [place]. tel:[phone] OFFICE/OUTPA TIENT VISIT, [facility], [address], [place], [place], [address], [place] tel:[phone] [facility] pain (chief complaint)insom nia1 (chief complaint)kidne y1 (chief complaint)COPD1 (chief complaint) Chronic pain syndromePrimar y insomniaOther specified disorder of kidneyCentrilo bular emphysema 3 Gaston Dong. [address], [place], [place], [address] , [place]. tel:[phone] OFFICE/OUTPA TIENT VISIT, [facility], [address], [place], [place], [address], [place] tel:[phone] [facility] pain (chief complaint)insom nia1 (chief complaint)tobac co1 (chief complaint)bladd er CA1 (chief complaint) Chronic pain syndromePrimar y insomniaMalign ant neoplasm of bladder, unspecifiedTob acco use 3 Gaston Dong. [address], [place], [place], [address] , [place]. tel:[phone] OFFICE/OUTPA TIENT VISIT, [facility], [address] [place], [address], [place] tel:[phone] [facility] pain (chief complaint)insom nia1 (chief complaint) Chronic pain syndromePrimar y insomnia 2 Gatson Dong. [address], [place], [place], [address] , [place]. tel:[phone] OFFICE/OUTPA TIENT VISIT, [facility], [address], [place], [place], [address], [place] tel:[phone] [facility] pain (chief complaint)insom nia1 (chief complaint) Chronic pain syndromePrimar y insomnia 2 Gaston Dong. [address], [place], [place], [address] , [place]. tel:[phone] OFFICE/OUTPA TIENT VISIT, [facility], [address], [place], [place], [address], [place] tel:[phone] [facility] pain (chief complaint)insom nia1 (chief complaint)barre tt1 (chief complaint) Chronic pain syndromePrimar y insomniaBarret t's esophagus without dysplasiaMalig nant neoplasm of bladder, unspecified 2 Gaston Dong. [address], [place], [place], [address] , [place]. tel:[phone] OFFICE/OUTPA TIENT VISIT, [facility], [address], [place], [place], [address], [place] tel:[phone] [facility] pain (chief complaint)insom nia1 (chief complaint)COPD1 (chief complaint)thyro id1 (chief complaint) Chronic pain syndromeBarret t's esophagus without dysplasiaPrima ry insomniaHypoth yroidismCentri lobular emphysema 2 Gaston Dong. [address], [place], [place], [address] , [place]. tel:[phone] OFFICE/OUTPA TIENT VISIT, [facility], [address], [address], [place] tel:[phone] [facility] pain (chief complaint)insom nia1 (chief complaint)CAD (chief complaint) Coronary artery disease of [place] coronary artery w/o angina pectorisChroni c pain syndromePrimar y insomnia 2 Gaston Dong. [address], [place], [place], [address] , [place]. tel:[phone] OFFICE/OUTPA TIENT VISIT, [facility], [address], [place], [place], [address], [place] tel:[phone] [facility] pain (chief complaint)insom nia1 (chief complaint) Chronic pain syndromePrimar y insomnia 2 Feldman Iker. [address], [place], [place], [address] , [place]. tel:[phone] OFFICE/OUTPA TIENT VISIT, [facility], [address], [place], [place], [address], [place] tel:[phone] [facility] pain (chief complaint)insom nia1 (chief complaint) Chronic pain syndromePrimar y insomnia Aug- 2 Feldman Iker. [address], [place], [place], [address] , [place]. tel:[phone] OFFICE/OUTPA TIENT VISIT, [facility], [address], [place], [place], [address], [place] tel:[phone] [facility] pain (chief complaint)insom nia1 (chief complaint)[place] tt1 (chief complaint)renal CA (chief complaint) Polyp of colonBarrett's esophagus without dysplasiaInsom niaChronic pain syndromeCa of left kidney, except renal pelvis 2 Feldman Iker. [address], [place], [place], [address] , [place]. tel:[phone] OFFICE/OUTPA TIENT VISIT, [facility], [address], [place], [place], [address], [place] tel:[phone] [facility] pain (chief complaint)insom nia1 (chief complaint)vitam in D (chief complaint)colon polyp (chief complaint)emphy sema1 (chief complaint) Chronic pain syndromeInsomn iaVitamin D deficiencyPoly p of colonEmphysema 2 Feldman Iker. [address], [place], [place], [address] , [place]. tel:[phone] PREV VISIT, EST, 65 & OVER [facility], [address], [place], [place], [address], [place] tel:[phone] [facility] physical (chief complaint) Hyperlipidemia Chronic pain syndromeMalign ant neoplasm of bladder, unspecifiedBar rett's esophagus without dysplasiaEmphy semaFolate deficiencyHypo calcemiaHypoth yroidismInsomn iaEncounter for general adult medical exam w abnormal findings 2 Gaston Pickett [address], [place], [place], [address] , [place]. tel:[phone] OFFICE/OUTPA TIENT VISIT, [facility], [address] [place], [address], [place] tel:[phone] [facility] pain (chief complaint)insom nia1 (chief complaint)bladd er tumor1 (chief complaint)thyro id1 (chief complaint)CAD1 (chief complaint) Chronic pain syndromeInsomn iaMalignant neoplasm of bladder, unspecifiedHyp erlipidemiaHyp othyroidism 2 Gaston Pickett [address], [place], [place], [address] , [place]. tel:[phone] OFFICE/OUTPA TIENT VISIT, [facility], [address], [place], [address], [place] tel:[phone] [facility] pain (chief complaint)bladd er CA (chief complaint)tobac co (chief complaint)insom nia1 (chief complaint)GERD1 (chief complaint) Chronic pain syndromeInsomn iaBarrett's esophagus without dysplasiaMalig nant neoplasm of bladder, unspecifiedTob acco use 2 Gaston Pickett [address], [place], [place], [address] , [place]. tel:[phone] OFFICE/OUTPA TIENT VISIT, [facility], [address] [place], [address], [place] tel:[phone] [facility] pain (chief complaint)insom nia1 (chief complaint)tobac co1 (chief complaint)bladd er CA (chief complaint)GERD1 (chief complaint) Malignant neoplasm of bladder, unspecifiedIns omniaChronic pain syndromeTobacc o useBarrett's esophagus without dysplasia 1 Feldman Iker. [address], [place], [place], [address] , [place]. tel:[phone] OFFICE/OUTPA TIENT VISIT, [facility], [address], [place], [place], [address], [place] tel:[phone] [facility] pain (chief complaint)insom nia1 (chief complaint)GERD1 (chief complaint)bladd er CA1 (chief complaint) InsomniaChroni c pain syndromeBarret t's esophagus without dysplasiaMalig nant neoplasm of bladder, unspecified 1 Feldman Iker. [address], [place], [place], [address] , [place]. tel:[phone] OFFICE/OUTPA TIENT VISIT, [facility], [address], [place], [place], [address], [place] tel:[phone] [facility] pain (chief complaint)insom nia1 (chief complaint)thyro id1 (chief complaint)bladd er CA (chief complaint) InsomniaHypoth yroidismMalign ant neoplasm of bladder, unspecifiedChr onic pain syndrome 1 Gaston Dong. [address], [place], [place], [address] , [place]. tel:[phone] OFFICE/OUTPA TIENT VISIT, [facility], [address] [place], [address], [place] tel:[phone] [facility] pain (chief complaint)insom nia1 (chief complaint)COPD1 (chief complaint)bladd er CA (chief complaint) InsomniaChroni c pain syndromeTobacc o useEmphysemaMa lignant neoplasm of bladder, unspecified Nov-3 1 Feldman Iker. [address], [place], [place], [address] , [place]. tel:[phone] OFFICE/OUTPA TIENT VISIT, [facility], [address], [place], [place], [address], [place] tel:[phone] [facility] pain (chief complaint)insom nia1 (chief complaint)tobac co1 (chief complaint) Chronic pain syndromeInsomn iaTobacco use 1 Gaston Pickett [address], [address], [place], [place], [address] , [place]. tel:[phone] OFFICE/OUTPA TIENT VISIT, [facility], [address], [address], [place] tel:[phone] [facility] pain (chief complaint)insom nia1 (chief complaint)renal 1 (chief complaint) LeukocytosisAc ute mountain renal failureHypokal emiaInsomniaCh ronic pain syndromeEssent ial (primary) hypertension 1 Gaston Pickett [address], [place], [place], [address] , [place]. [phone] OFFICE/OUTPA TIENT VISIT, [facility], [address] [place], [address], [place] tel:[phone] [facility] pain1 (chief complaint)insom nia1 (chief complaint)barre tt (chief complaint)weigh t loss1 (chief complaint) Chronic pain syndromeInsomn iaBarrett's esophagus without dysplasiaAbnor mal weight loss 1 Gaston Pickett [address], [address], [place], [place], [address] , [place]. [phone] OFFICE/OUTPA TIENT VISIT, [facility], [address], [place], [address], [place] tel:[phone] [facility] pain (chief complaint)insom na1 (chief complaint) Chronic pain syndromeInsomn ia 1 Gaston Pickett [address], [address], [address] , [place]. tel:[phone] OFFICE/OUTPA TIENT VISIT, [facility], [address], [address], [place] tel:[phone] [facility] pain (chief complaint)insom nia1 (chief complaint)vitam in D (chief complaint) Chronic pain syndromeInsomn iaVitamin D deficiency, unspecified 1 Gaston Dong. [address], [place], [place], [address] , [place]. tel:[phone] OFFICE/OUTPA TIENT VISIT, [facility], [address], [place], [place], [address], [place] tel:[phone] [facility] pain (chief complaint)insom nia1 (chief complaint) Chronic pain syndromeInsomn ia 1 Gaston Dong. [address], [place], [place], [address] , [place]. tel:[phone] OFFICE/OUTPA TIENT VISIT, [facility], [address], [place], [place], [address], [place] tel:[phone] [facility] pain (chief complaint)insom nia1 (chief complaint)COPD1 (chief complaint) Chronic pain syndromeEmphys emaInsomnia May- 1 Gaston Dong. [address], [place], [place], [address] , [place]. tel:[phone] PREV VISIT, EST, 65 & OVER [facility], [address], [place], [place], [address], [place] tel:[phone] [facility] physical (chief complaint) Encounter for general adult medical exam w abnormal findingsChroni c pain syndromeEmphys emaInsomniaHyp othyroidismCor onary artery disease of [place] coronary artery w/o angina pectorisMalign ant neoplasm of bladder, unspecified 1 Gaston Dong. [address], [place], [place], [address] , [place]. tel:[phone] OFFICE/OUTPA TIENT VISIT, [facility], [address], [place], [place], [address], [place] tel:[phone] [facility] pain (chief complaint)insom nia1 (chief complaint)COPD1 (chief complaint) EmphysemaChron ic pain syndromeInsomn ia 0 Gaston Dong. [address], [address], [place], [place], [address] , [place]. tel:[phone] OFFICE/OUTPA TIENT VISIT, [facility], [address], [place], [place], [address], [place] tel:[phone] [facility] pain1 (chief complaint)insom nia1 (chief complaint)hypot hyroidism1 (chief complaint)HLP (chief complaint) Hypothyroidism Hyperlipidemia Chronic pain syndromeInsomn ia 0 Gaston Iker. [address], [address], [place], [place], [address] , [place]. tel:[phone] OFFICE/OUTPA TIENT VISIT, [facility], [address], [place], [place], [address], [place] tel:[phone] [facility] pain (chief complaint)insom nia1 (chief complaint)hypot hyroidism1 (chief complaint)CAD1 (chief complaint) Chronic pain syndromeInsomn iaCoronary artery disease of [place] coronary artery w/o angina pectorisHypoth yroidism 0 Gaston Dong. [address], [address], [place], [place], [address] , [place]. tel:[phone] OFFICE/OUTPA TIENT VISIT, [facility], [address], [place], [place], [address], [place] tel:[phone] [facility] pain (chief complaint)insom nia1 (chief complaint)tobac co1 (chief complaint) Chronic pain syndromeInsomn iaTobacco use 0 Feldman Iker. [address], [address], [place], [place], [address] , [place]. tel:[phone] OFFICE/OUTPA TIENT VISIT, [facility], [address], [place], [place], [address], [place] tel:[phone] [facility] pain (chief complaint)insom nia1 (chief complaint)tobac co (chief complaint)COPD1 (chief complaint) Chronic pain syndromeInsomn iaEmphysemaTob acco use 0 Gaston Iker. [address], [address], [place], [place], [address] , [place]. tel:[phone] OFFICE/OUTPA TIENT VISIT, [facility], [address], [place], [place], [address], [place] tel:[phone] [facility] pain (chief complaint)insom nia1 (chief complaint)tobac co1 (chief complaint) Chronic pain syndromeInsomn iaTobacco use 0 Gaston Iker. [address], [address], [place], [place], [address] , [place]. tel:[phone] OFFICE/OUTPA TIENT VISIT, [facility], [address], [place], [place], [address], [place] tel:[phone] [facility] pain (chief complaint)insom nia1 (chief complaint) Chronic pain syndromeInsomn iaMalignant neoplasm of bladder, unspecified 0 Gaston Iker. [address], [address], [place], [place], [address] , [place]. tel:[phone] OFFICE/OUTPA TIENT VISIT, [facility], [address], [place], [place], [address], [place] tel:[phone] [facility] pain1 (chief complaint)anxie ty1 (chief complaint)COPD1 (chief complaint)bladd er CA1 (chief complaint) Chronic pain syndromeInsomn iaEmphysemaMal ignant neoplasm of bladder, unspecified 0 Feldman Iker. [address], [address], [place], [place], [address] , [place]. tel:[phone] OFFICE/OUTPA TIENT VISIT, [facility], [address], [place], [place], [address], [place] tel:[phone] [facility] pain (chief complaint)anxie ty1 (chief complaint)D (chief complaint) InsomniaChroni c pain syndromeVitami n D deficiency, unspecified May- 0 Gaston Dong. [address], [place], [place], [address] , [place]. tel:[phone] OFFICE/OUTPA TIENT VISIT, [facility], [address], [place], [place], [address], [place] tel:[phone] [facility] pain (chief complaint)anxie ty1 (chief complaint) Chronic pain syndromeInsomn ia Apr- 0 Gaston Dong. [address], [place], [place], [address] , [place]. tel:[phone] OFFICE/OUTPA TIENT VISIT, [facility], [address], [place], [place], [address], [place] tel:[phone] [facility] pain1 (chief complaint)anxie ty1 (chief complaint)[place] tt1 (chief complaint)bladd er1 (chief complaint)HTn (chief complaint) Cervantes's esophagus without dysplasiaChron ic pain syndromeInsomn iaMalignant neoplasm of bladder, unspecifiedEss ential (primary) hypertension May- 0 Gaston Pickett [address], [place], [place], [address] , [place]. tel:[phone] Referring Provider: Franky Dunham [facility] A, [place], [place], [address]. tel:[phone] OFFICE/OUTPA TIENT VISIT, [facility], [address], [place], [place], [address], [place] tel:[phone] [facility] copd (chief complaint)pain1 (chief complaint)anxie ty1 (chief complaint)[place] tt1 (chief complaint)CAD (chief complaint) InsomniaBarret t's esophagus without dysplasiaChron ic pain syndromeEmphys emaCoronary artery disease of [place] coronary artery w/o angina pectoris 0 Gaston Pickett [address], [address], [place], [place], [address] , [place]. tel:[phone] Referring Provider: Franky Dunham [place], [place], [address]. tel:[phone] OFFICE/OUTPA TIENT VISIT, [facility], [address] [place], [address], tel:[phone] [facility] anxiety1 (chief complaint)pain (chief complaint)bladd er CA (chief complaint)[place] tt1 (chief complaint)COPD1 (chief complaint) Malignant neoplasm of bladder, unspecifiedEmp hysemaBarrett' s esophagus without dysplasiaChron ic pain syndromeInsomn ia 0 Gaston Dong. [facility] [place], [place], [address] , [place]. tel:[phone] Referring Provider: Franky Dunham [facility] A, [place], [place], [address]. tel:[phone] OFFICE/OUTPA TIENT VISIT, [facility], [address] [place], [address], [place] tel:[phone] [facility] chronic pain1 (chief complaint)anxie ty1 (chief complaint)HTN (chief complaint)bladd er CA (chief complaint) Chronic pain syndromeMalign ant neoplasm of bladder, unspecifiedIns omniaEssential (primary) hypertensionCo ronary artery disease of [place] coronary artery w/o angina pectoris 9 Gaston Pickett [address] [facility] [address], [place], [place], [address] , [place]. tel:[phone] Referring Provider: Franky Dunham [address] [facility] [address], [place], [place], [address]. tel:[phone] PREV VISIT, EST, 65 & OVER [facility], [address] [place], [address], [place] tel:[phone] [facility] physical (chief complaint) Encounter for general adult medical exam w abnormal findingsEmphys emaBarrett's esophagus without dysplasiaMalig nant neoplasm of bladder, unspecifiedChr onic pain syndromeHypoth yroidismCorona ry artery disease of [place] coronary artery w/o angina pectoris 9 Gaston Pickett [address], [address], [place], [place], [address] , [place]. [phone] Referring Provider: Iker Feldman, [address], [place], [place], [address]. tel:[phone] OFFICE/OUTPA TIENT VISIT, [facility], [address] [place], [address], [place] tel:[phone] [facility] chronic pain1 (chief complaint)insom nia1 (chief complaint)COPD (chief complaint)HTN (chief complaint) EmphysemaChron ic pain syndromeInsomn iaCoronary artery disease of [place] coronary artery w/o angina pectoris 9 Gaston Pickett [address], [address], [place], [place], [address] , [place]. tel:[phone] OFFICE/OUTPA TIENT VISIT, [facility], [address] [place], [address], [place] tel:[phone] [facility] emphysema1 (chief complaint)chron ic pain1 (chief complaint)insom nia1 (chief complaint)GERD1 (chief complaint) EmphysemaChron ic pain syndromeInsomn iaBarrett's esophagus without dysplasia 0 9 Gaston Pickett [address], [address], [place], [place], [address] , [place]. [phone] OFFICE/OUTPA TIENT VISIT, [facility], [address] [place], [address], [place] tel:[phone] [facility] chronic pain1 (chief complaint)insom nia1 (chief complaint) Chronic pain syndromeInsomn ia Oct- 9 Gaston Pickett [address], [address], [place], [place], [address] , [place]. [phone] OFFICE/OUTPA TIENT VISIT, [facility], [address], [place], [place], [address], [place] tel:[phone] [facility] chronic pain1 (chief complaint)insom nia1 (chief complaint)COPD1 (chief complaint)bladd er tumor1 (chief complaint) Chronic pain syndromeInsomn iaEmphysemaMal ignant neoplasm of bladder, unspecified 9 Gaston Dong. [address], [address], [place], [place], [address] , [place]. tel:[phone] OFFICE/OUTPA TIENT VISIT, [facility], [address], [place], [place], [address], [place] tel:[phone] [facility] chronic pain (chief complaint)anxie ty1 (chief complaint)bladd er CA (chief complaint)lung (chief complaint) Chronic pain syndromeInsomn iaScreening for lung caMalignant neoplasm of bladder, unspecified 9 Gaston Dong. [address], [address], [place], [place], [address] , [place]. [phone] Referring Provider: Franky Dunham [address], [place], [place], [address]. tel:[phone] OFFICE/OUTPA TIENT VISIT, [facility], [address], [place], [place], [address], [place] tel:[phone] [facility] vitamin D1 (chief complaint)thyro id1 (chief complaint)chron ic pain1 (chief complaint)insom nia1 (chief complaint) Hypothyroidism InsomniaChroni c pain syndromeVitami n D deficiency, unspecified 9 Gaston Pickett [address], [place], [place], [address] , [place]. tel:[phone] Referring Provider: Franky Dunham [address], [place], [place], [address]. tel:[phone] OFFICE/OUTPA TIENT VISIT, [facility], [address], [place], [place], [address], [place] tel:[phone] [facility] chronic pain (chief complaint)insom nia1 (chief complaint) Chronic pain syndromeInsomn ia 9 Gaston Dong. [address], [place], [place], [address] , . tel:[phone] Referring Provider: Iker Feldman [address] [facility] A, [place], [place], [address]. tel:[phone] OFFICE/OUTPA TIENT VISIT, [facility], [address], [place], [place], [address], tel:[phone] [facility] chronci pain1 (chief complaint)hypot hyroidism1 (chief complaint)CAD1 (chief complaint)lung (chief complaint) Chronic pain syndromeHypoth yroidismCorona ry artery disease of [place] coronary artery w/o angina pectorisScreen ing for lung caInsomnia 9 Gaston Dong. [address], [facility] [address], [place], [place], [address] , . tel:[phone] Referring Provider: Franky Dunham [facility] [place], [address]. tel:[phone] OFFICE/OUTPA TIENT VISIT, [facility], [address] [place], [address], [place] tel:[phone] [facility] chronic pain1 (chief complaint)insom nia1 (chief complaint) Chronic pain syndromeInsomn ia 9 Gaston Dong. [address], [place], [place], [address] , . tel:[phone] Referring Provider: Franky Dunham [facility] A, [place], [place], [address]. tel:[phone] OFFICE/OUTPA TIENT VISIT, [facility], [address] [place], [address], [place] tel:[phone] [facility] CAD1 (chief complaint)[place] tt1 (chief complaint)bladd er tumor1 (chief complaint)chron ic pain1 (chief complaint)insom nia1 (chief complaint) Cervantes's esophagus without dysplasiaChron ic pain syndromeCorona ry artery disease of [place] coronary artery w/o angina pectorisEmphys emaInsomnia 9 Gaston Pickett [address], [address], [place], [place], [address] , [place]. tel:[phone] Referring Provider: Franky Dunham [address], [place], [place], [address]. tel:[phone] OFFICE/OUTPA TIENT VISIT, [facility], [address], [place], [place], [address], [place] tel:[phone] [facility] chronic pain (chief complaint)insom nia1 (chief complaint)bladd er CA1 (chief complaint) Chronic pain syndromeInsomn iaMalignant neoplasm of bladder, unspecified Gaston Pickett [address], [address], [place], [place], [address] , [place]. tel:[phone] Referring Provider: Franky Dunham [facility] A, [place], [place], [address]. tel:[phone] OFFICE/OUTPA TIENT VISIT, [facility], [address], [place], [place], [address], [place] tel:[phone] [facility] chronic pain (chief complaint)anxie ty1 (chief complaint)renal lesion (chief complaint)[place] tt (chief complaint) InsomniaMalign ant neoplasm of bladder, unspecifiedChr onic pain syndromeBarret t's esophagus without dysplasia 8 Gaston Wilkins [address], [place], [place], [address] , [place]. tel:[phone] Referring Provider: Franky Dunham [address], [place], [place], [address]. tel:[phone] OFFICE/OUTPA TIENT VISIT, [facility], [address] [place], [address], [place] tel:[phone] [facility] thyroid1 (chief complaint)chron ic pain1 (chief complaint)insom nia1 (chief complaint)COPD1 (chief complaint)bladd er tumor1 (chief complaint) EmphysemaInsom niaOther cystic kidney diseasesHypoth yroidismChroni c pain syndrome 8 Gaston Dong. [address], [address], [place], [place], [address] , [place]. tel:[phone] Referring Provider: Franky Dunham [address], [place], [place], [address]. tel:[phone] PREV VISIT, EST, AGE 40-64 [facility], [address], [place], [place], [address], [place] tel:[phone] [facility] Physical (chief complaint) Encounter for general adult medical exam w abnormal findingsChroni c pain syndromeInsomn iaMalignant neoplasm of bladder, unspecifiedCor onary artery disease of [place] coronary artery w/o angina pectorisHypoth yroidismEmphys zuleima 8 Gaston Dong. [address], [address], [place], [place], [address] , [place]. tel:[phone] Referring Provider: Franky Dunham [address], [place], [place], [address]. tel:[phone] OFFICE/OUTPA TIENT VISIT, EST [facility], [address], [place], [place], [address], [place] tel:[phone] [facility] bladder CA (chief complaint)kidne y cyst1 (chief complaint)chron ic pain1 (chief complaint)insom nia1 (chief complaint) Malignant neoplasm of bladder, unspecifiedOth er cystic kidney diseasesChroni c pain syndromeInsomn ia 3 0 8 Gaston Dong. [address], [address], [place], [place], [address] , [place]. tel:[phone] Referring Provider: Franky Dunham [address], [place], [place], [address]. tel:[phone] OFFICE/OUTPA TIENT VISIT, EST [facility], [address], [place], [place], [address], [place] tel:[phone] [facility] chronic pain1 (chief complaint)anxie ty1 (chief complaint)COPD1 (chief complaint)renal 1 (chief complaint) EmphysemaChron ic pain syndromeBladde r disorder, unspecifiedIns omnia 8 Gaston Pickett [address], [address], [place], [place], [address] , [place]. tel:[phone] OFFICE/OUTPA TIENT VISIT, [facility], [address], [place], [place], [address], [place] tel:[phone] [facility] kidney1 (chief complaint)chron ic pain (chief complaint)insom nia1 (chief complaint) Chronic pain syndromeBladde r disorder, unspecifiedOth er cystic kidney diseases 8 Gaston Pickett [address], [place], [place], [address] , [place]. tel:[phone] Referring Provider: Franky Dunham [address], [place], [place], [address]. tel:[phone] OFFICE/OUTPA TIENT VISIT, [facility], [address], [place], [place], [address], [place] tel:[phone] [facility] hypothyroidism (chief complaint)HLP (chief complaint)chron ic pain1 (chief complaint)insom nia1 (chief complaint) Hypothyroidism Hyperlipidemia Chronic pain syndromeInsomn ia 8 Gaston Pickett [address], [place], [place], [address] , [place]. tel:[phone] Referring Provider: Franky Dunham [address], [place], [place], [address]. tel:[phone] OFFICE/OUTPA TIENT VISIT, [facility], [address] [place], [address], [place] tel:[phone] [facility] chronic pain (chief complaint)insom nia1 (chief complaint)CAD1 (chief complaint)COPD1 (chief complaint) Chronic pain syndromeCorona ry artery disease of [place] coronary artery w/o angina pectorisInsomn iaTobacco use 8 Gaston Pickett [address], [address], [place], [place], [address] , [place]. tel:[phone] Referring Provider: Iker Feldman, [address], [place], [place], [address]. tel:[phone] OFFICE/OUTPA TIENT VISIT, [facility], [address], [place], [place], [address], [place] tel:[phone] [facility] chronic pain (chief complaint)insom nia1 (chief complaint)tobac co1 (chief complaint) Chronic pain syndromeInsomn iaTobacco use Mar-3 8 Gaston Dong. [address], [place], [place], [address] , [place]. tel:[phone] OFFICE/OUTPA TIENT VISIT, [facility], [address], [place], [place], [address], [place] tel:[phone] [facility] chronic pain1 (chief complaint)anxie ty1 (chief complaint)tobac co1 (chief complaint)[place] tt (chief complaint) Cervantes's esophagus without dysplasiaInsom niaChronic pain syndromeEmphys zuleima Mar-0 8 Gaston Dong. [address], [address], [place], [place], [address] , [place]. tel:[phone] Referring Provider: Iker Feldman, [address], [place], [place], [address]. tel:[phone] OFFICE/OUTPA TIENT VISIT, [facility], [address], [place], [place], [address], [place] tel:[phone] [facility] chronic pain1 (chief complaint)insom nia1 (chief complaint) InsomniaChroni c pain syndrome Feb-0 8 Gaston Dong. [address], [place], [place], [address] , [place]. tel:[phone] OFFICE/OUTPA TIENT VISIT, [facility], [address], [place], [place], [address], [place] tel:[phone] [facility] COPD1 (chief complaint)chron ic pain1 (chief complaint)insom nia1 (chief complaint)barre tt1 (chief complaint) Cervantes's esophagus without dysplasiaEmphy semaInsomniaCh ronic pain syndrome 8 Gaston Pickett [address], [place], [address] , [place]. [phone] Referring Provider: Franky Dunham [address], [place], [place], [address]. tel:[phone] OFFICE/OUTPA TIENT VISIT, [facility], [address], [place], [place], [address], [place] [phone] [facility] sob (chief complaint)chron ic pain1 (chief complaint)insom nia1 (chief complaint) EmphysemaInsom niaChronic pain syndrome 7 Gaston Wilkins [address], [place], [place], [address] , [place]. [phone] Referring Provider: Franky Dunham [address], [place], [place], [address]. tel:[phone] OFFICE/OUTPA TIENT VISIT, [facility], [address], [place], [place], [address], [place] tel:[phone] [facility] chrnoic pain (chief complaint)anxei ty1 (chief complaint) Chronic pain syndromeInsomn ia 7 Gaston Wilkins [address], [place], [place], [address] , [place]. [phone] Referring Provider: Franky Dunham [address], [place], [place], [address]. tel:[phone] OFFICE/OUTPA TIENT VISIT, [facility], [address], [place], [address], [place] tel:[phone] [facility] chronic pain1 (chief complaint)anxie ty1 (chief complaint)thyro id1 (chief complaint)[place] tt1 (chief complaint) InsomniaHypoth yroidismBarret t's esophagus without dysplasiaChron ic pain syndrome 7 Gaston Wilkins [address], [place], [place], [address] , [place]. [phone] Referring Provider: Franky Dunham [address], [place], [place], [address]. tel:[phone] OFFICE/OUTPA TIENT VISIT, EST [facility], [address], [place], [place], [address], [place] [phone] [facility] chronic pain (chief complaint)anxie ty1 (chief complaint)ED (chief complaint) Chronic pain syndromeInsomn iaMale erectile dysfunction, unspecified Sep-0 7 Gaston Pickett [address], [address], [place], [place], [address] , [place]. [phone] Referring Provider: Franky Dunham [address], [place], [place], [address]. tel:[phone] PREV VISIT, EST, AGE 40-64 [facility], [address], [place], [place], [address], [place] [phone] [facility] Physical (chief complaint) Encounter for general adult medical exam w abnormal findingsHypoth yroidismInsomn iaAtherosclero tic heart disease of [place] coronary artery without angina pectoris 7 [address] Mons[address], [place], [place], [address] , [place]. [phone] Referring Provider: Franky Dunham [address], [place], [place], [address]. tel:[phone] OFFICE/OUTPA TIENT VISIT, EST [facility], [address], [place], [place], [address], [place] [phone] [facility] Cervantes (chief complaint)insom nia1 (chief complaint)chron ic pain1 (chief complaint)CAD (chief complaint) Cervantes's esophagus without dysplasiaChron ic pain syndromeAthero sclerotic heart disease of [place] coronary artery without angina pectorisInsomn ia 7 Gaston Pickett [address], [address], [place], [place], [address] , . tel:[phone] Referring Provider: Franky Dunham [address], [place], [place], [address]. tel:[phone] OFFICE/OUTPA TIENT VISIT, [facility], [address], [place], [place], [address], [place] tel:[phone] [facility] chronic pain1 (chief complaint)insom nia1 (chief complaint) Chronic pain syndromeInsomn ia 7 Gaston Dong. [address], [address], [place], [place], [address] , [place]. tel:[phone] Referring Provider: Franky Dunham [facility] [address], [place], [place], [address]. tel:[phone] OFFICE/OUTPA TIENT VISIT, [facility], [address] [place] [address] [place], [address], tel:[phone] [facility] CAD (chief complaint)thyro id1 (chief complaint)hep C (chief complaint)chron ic pain1 (chief complaint)anxie ty1 (chief complaint) Hypothyroidism Atheroscleroti c heart disease of [place] coronary artery without angina pectorisInsomn iaHepatitis C 7 Gaston Dong. [address], [address], [place], [place], [address] , [place]. tel:[phone] Referring Provider: Franky Dunham [facility] A, [place], [address]. tel:[phone] OFFICE/OUTPA TIENT VISIT, [facility], [address] [place], [address], [place] tel:[phone] [facility] chronic pain (chief complaint)insom nia1 (chief complaint)hep C (chief complaint)HLP (chief complaint) InsomniaHyperl ipidemiaEncoun ter for screening for other viral diseasesHypoth yroidism Jun-2 7 Gaston Dong. [address], [address], [place], [place], [address] , [place]. tel:[phone] Referring Provider: Franky Dunham [address], [place], [place], [address]. tel:[phone] OFFICE/OUTPA TIENT VISIT, [facility], [address], [place], [address], [place] tel:[phone] [facility] emphysema1 (chief complaint)chron ic pain (chief complaint)insom nia1 (chief complaint)CAD1 (chief complaint) COPDInsomniaCh ronic pain syndromeAthero sclerotic heart disease of [place] coronary artery without angina pectoris 7 Gaston Dong. [address], [address], [place], [place], [address] , [place]. tel:[phone] Referring Provider: Franky Dunham [address], [place], [place], [address]. tel:[phone] OFFICE/OUTPA TIENT VISIT, [facility], [address], [place], [address], [place] tel:[phone] [facility] chronic pain1 (chief complaint)insom nia1 (chief complaint)CAD (chief complaint)tobac co1 (chief complaint) InsomniaTobacc o useChronic pain syndromeAthero sclerotic heart disease of [place] coronary artery without angina pectoris 7 Gaston Dong. [address], [address], [place], [place], [address] , [place]. tel:[phone] Referring Provider: Franky Dunham [address], [place], [place], [address]. tel:[phone] OFFICE/OUTPA TIENT VISIT, [facility], [address], [place], [place], [address], [place] tel:[phone] [facility] chronic pain (chief complaint)insom nia1 (chief complaint)tobac co1 (chief complaint) Chronic pain syndromeInsomn iaTobacco use 7 Gaston Dong. [address], [address], [place], [place], [address] , [place]. tel:[phone] Referring Provider: Franky Dunham [address], [place], [place], [address]. tel:[phone] OFFICE/OUTPA TIENT VISIT, [facility], [address], [place], [place], [address], [place] tel:[phone] [facility] chronic pain1 (chief complaint)anxie ty1 (chief complaint)ED (chief complaint)GERD1 (chief complaint) Cervantes's esophagus without dysplasiaChron ic pain syndromeInsomn iaMale erectile dysfunction, unspecified Feb- 6 Gaston Dong. [address], [address], [place], [place], [address] , [place]. tel:[phone] Referring Provider: Franky Dunham [address], [place], [place], [address]. tel:[phone] OFFICE/OUTPA TIENT VISIT, [facility], [address], [place], [place], [address], [place] tel:[phone] [facility] chronic pain (chief complaint)anxie ty1 (chief complaint) Chronic pain syndromeInsomn ia 6 Gaston Dong. [address], [address], [place], [place], [address] , [place]. tel:[phone] Referring Provider: Franky Dun[address], [place], [place], [address]. tel:[phone] OFFICE/OUTPA TIENT VISIT, [facility], [address], [place], [place], [address], [place] tel:[phone] [facility] chronic pain (chief complaint)anxie ty1 (chief complaint)hypot hyroidism (chief complaint)HTN (chief complaint) Chronic pain syndromeInsomn iaEssential (primary) hypertensionHy pothyroidism Dec- 6 Gaston Dong. [address], [address], [place], [place], [address] , [place]. tel:[phone] Referring Provider: Franky Dunham [address], [place], [place], [address]. tel:[phone] OFFICE/OUTPA TIENT VISIT, [facility], [address], [place], [place], [address], [place] tel:[phone] [facility] chronic pain1 (chief complaint)anxie ty1 (chief complaint)GERD1 (chief complaint)HTN (chief complaint) Chronic pain syndromeBarret t's esophagus without dysplasiaEssen tial (primary) hypertensionAn xiolytic dependence Nov- 6 Gaston Dong. [address], [address], [place], [place], [address] , [place]. tel:[phone] Referring Provider: Iker Feldman, [address], [place], [place], [address]. tel:[phone] OFFICE/OUTPA TIENT VISIT, [facility], [address], [place], [place], [address], [place] tel:[phone] [facility] chronic pain (chief complaint)anxie ty1 (chief complaint) Chronic pain syndromeAnxiol ytic dependence 6 Gaston Dong. [address], [place], [place], [address] , [place]. tel:[phone] Referring Provider: Franky Dun[address], [place], [place], [address]. tel:[phone] OFFICE/OUTPA TIENT VISIT, [facility], [address], [place], [place], [address], [place] tel:[phone] [facility] CAD (chief complaint)HLP (chief complaint)hypot hyroidism (chief complaint)chron ic pain (chief complaint) Atheroscleroti c heart disease of [place] coronary artery without angina pectorisAnxiol ytic dependenceHype rlipidemiaChro flores pain syndrome 6 Gaston Dong. [address], [address], [place], [place], [address] , [place]. tel:[phone] Referring Provider: Franky [address], [place], [place], [address]. tel:[phone] OFFICE/OUTPA TIENT VISIT, [facility], [address], [place], [place], [address], [place] tel:[phone] [facility] chronic pain (chief complaint)insom nia1 (chief complaint)ED1 (chief complaint) Chronic pain syndromeInsomn iaOther male erectile dysfunctionCor onary artery disease of [place] coronary artery w/o angina pectoris 3 6 Gaston Dong. [address], [place], [place], [address] , [place]. tel:[phone] Referring Provider: Franky Dunham [address], [place], [place], [address]. tel:[phone] OFFICE/OUTPA TIENT VISIT, [facility], [address], [place], [place], [address], [place] tel:[phone] [facility] chronic pain (chief complaint)anxie ty1 (chief complaint) Chronic pain syndromeAnxiol ytic dependence Aug-0 6 Gaston Dong. [address], [place], [place], [address] , [place]. tel:[phone] Referring Provider: Franky Dunham [facility], [place], [place], [address]. tel:[phone] OFFICE/OUTPA TIENT VISIT, [facility], [address], [place], [place], [address], [place] tel:[phone] [facility] chronic pain (chief complaint)anxie ty1 (chief complaint)barre tt (chief complaint)CAD (chief complaint) Chronic pain syndromeBarret t's esophagus without dysplasiaCoron william artery disease of [place] coronary artery w/o angina pectorisEncoun ter for screening for malignant neoplasm of prostate 2 6 Gaston Dong. [address], [address], [place], [place], [address] , [place]. tel:[phone] Referring Provider: Franky [address], [place], [place], [address]. tel:[phone] OFFICE/OUTPA TIENT VISIT, [facility], [address], [place], [place], [address], [place] tel:[phone] [facility] chronic pain (chief complaint)anxie ty1 (chief complaint)dizzi ness (chief complaint)anemi a1 (chief complaint) AnemiaDizzines sChronic pain syndrome Jun- 6 Gaston Dong. [address], [address], [place], [place], [address] , [place]. tel:[phone] Referring Provider: Iker Feldman, [address], [place], [place], [address]. tel:[phone] OFFICE/OUTPA TIENT VISIT, [facility], [address], [place], [place], [address], [place] tel:[phone] [facility] chronic pain (chief complaint)anxie ty1 (chief complaint) Other insomniaChroni c pain syndrome 6 Gaston Dong. [address], [place], [place], [address] , [place]. tel:[phone] Referring Provider: Iker Feldman [address], [place], [place], [address]. tel:[phone] OFFICE/OUTPA TIENT VISIT, [facility], [address], [place], [place], [address], [place] tel:[phone] [facility] GERD1 (chief complaint)HLP1 (chief complaint)chron ic pain (chief complaint)insom nia1 (chief complaint) Hyperlipidemia Chronic pain syndromeGERD without esophagitisHyp othyroidism 6 Gaston Dong. [address], [place], [place], [address] , [place]. tel:[phone] Referring Provider: Franky Dunham [address], [place], [place], [address]. tel:[phone] OFFICE/OUTPA TIENT VISIT, [facility], [address], [place], [place], [address], [place] tel:[phone] [facility] chronic pain (chief complaint)anxie ty1 (chief complaint)GERD1 (chief complaint)CAD (chief complaint) Chronic pain syndromeOther insomniaCorona ry artery disease of [place] coronary artery without angina pectorisHyperl ipidemia 5 Gaston Dong. [address], [place], [place], [address] , [place]. tel:[phone] Referring Provider: Franky Dunham [address], [place], [place], [address]. tel:[phone] OFFICE/OUTPA TIENT VISIT, [facility], [address], [place], [place], [address], [place] tel:[phone] [facility] right ankle pain (chief complaint)anxie ty1 (chief complaint) Chronic pain syndromeOther insomnia 5 Gaston Dong. [address], [place], [place], [address] , [place]. tel:[phone] Referring Provider: Franky Dunham [address], [place], [place], [address]. tel:[phone] OFFICE/OUTPA TIENT VISIT, [facility], [address], [place], [place], [address], [place] tel:[phone] [facility] ankle pain1 (chief complaint)insom nia1 (chief complaint) Secondary osteoarthritis , right ankle and footOther insomnia 5 Gaston Dong. [address], [place], [place], [address] , [place]. [phone] Referring Provider: Iker Feldman [address], [place], [place], [address]. tel:[phone] OFFICE/OUTPA TIENT VISIT, [facility], [address], [place], [place], [address], [place] tel:[phone] [facility] ankle pain (chief complaint)insom alverto (chief complaint)CAD (chief complaint)gastr ic ulcer (chief complaint) Pain in right ankleOpioid dependence, uncomplicatedH ypertensive heart disease without heart failureChronic gastric ulcer without hemorrhage or perforationTob acco use 5 Gaston Dong. [address], [place], [place], [address] , [place]. tel:[phone] Referring Provider: Iker Feldman, [address], [place], [place], [address]. tel:[phone] OFFICE/OUTPA TIENT VISIT, [facility], [address], [place], [place], [address], [place] tel:[phone] [facility] HTN (chief complaint)gastr ic ulcer (chief complaint)insom alverto (chief complaint)hypot hyroidism (chief complaint) Insomnia, unspecifiedUns pecified hypothyroidism Unspecified essential hypertensionAc ute mountain gastric ulcer without mention of hemorrhage or perforation, with obstruction 5 Gaston Pickett [address], [address], [place], [place], [address] , [place]. tel:[phone] Referring Provider: Franky Dunham [address], [place], [place], [address]. tel:[phone] OFFICE/OUTPA TIENT VISIT, [facility], [address] [place], [address], [place] tel:[phone] [facility] pain (chief complaint)anxie ty (chief complaint)hypot hyroidism (chief complaint)gERD (chief complaint) Insomnia, unspecifiedUns pecified hypothyroidism Unspecified essential hypertension 5 Gaston Pickett [address], [place], [place], [address] , [place]. tel:[phone] Referring Provider: Franky Dunham [address], [place], [place], [address]. tel:[phone] OFFICE/OUTPA TIENT VISIT, [facility], [address], [place], [place], [address], [place] tel:[phone] [facility] chronic apin (chief complaint)anxie ty (chief complaint) Other chronic pain 5 Gaston Pickett [address], [place], [place], [address] , [place]. tel:[phone] Referring Provider: Franky Dunham [address], [place], [place], [address]. tel:[phone] OFFICE/OUTPA TIENT VISIT, [facility], [address], [place], [place], [address], [place] tel:[phone] [facility] chronic pain (chief complaint)anxie ty (chief complaint) Ankle pain Bebeto-0 5 Gaston Dong. [address], [place], [place], [address] , [place]. tel:[phone] Referring Provider: Franky [address], [place], [place], [address]. tel:[phone] OFFICE/OUTPA TIENT VISIT, [facility], [address], [place], [place], [address], [place] tel:[phone] [facility] chronic pain (chief complaint)anxie ty (chief complaint)hypot hyroidism (chief complaint) Hypothyroidism Pain in joint involving lower legInsomnia, OtherScreening for malignant neoplasms of the prostate July-0 5 Gaston Dong. [address], [place], [place], [address] , [place]. tel:[phone] Referring Provider: Franky [address], [place], [place], [address]. tel:[phone] OFFICE/OUTPA TIENT VISIT, [facility], [address], [place], [place], [address], [place] tel:[phone] [facility] chronic pain (chief complaint)anxie ty (chief complaint)gastr ic ulcer (chief complaint)CAD (chief complaint) Insomnia, OtherCAD, Beaver VesselAcute gastric ulcer without mention of hemorrhage or perforation, with obstructionOpi oid type dependence, unspecified use Apr-0 2 5 Gaston Dong. [address], [place], [place], [address] , [place]. tel:[phone] Referring Provider: Franky [address], [place], [place], [address]. tel:[phone] OFFICE/OUTPA TIENT VISIT, [facility], [address], [place], [place], [address], [place] tel:[phone] [facility] chronic pain (chief complaint)insom alverto (chief complaint) Insomnia, OtherPain in joint involving lower legOpioid type dependence, unspecified useSedative, hypnotic or anxiolytic dependence, unspecified May-0 5 Gaston Dong. [address], [place], [place], [address] , [place]. tel:[phone] Referring Provider: Franky Dunham [address], [place], [place], [address]. tel:[phone] OFFICE/OUTPA TIENT VISIT, [facility], [address], [place], [place], [address], [place] tel:[phone] [facility] chornic pain (chief complaint)anxie ty (chief complaint)HLP (chief complaint)hypot hyroidism (chief complaint) Hypothyroidism Insomnia, OtherOther and unspecified hyperlipidemia Pain in joint involving lower leg Fe- 5 Gaston Dong. [address], [place], [place], [address] , [place]. tel:[phone] Referring Provider: Franky Dunham [address], [place], [place], [address]. tel:[phone] OFFICE/OUTPA TIENT VISIT, [facility], [address], [place], [place], [address], [place] tel:[phone] [facility] GERD (chief complaint)chron ic pain (chief complaint)anxie ty (chief complaint)HLP (chief complaint) Hypothyroidism CAD, Beaver VesselPain in joint involving lower legHypertensio n, Unspecified 5 Gaston Dong. [address], [address], [place], [place], [address] , [place]. tel:[phone] Referring Provider: Iker Feldman, [address], [place], [place], [address]. tel:[phone] OFFICE/OUTPA TIENT VISIT, [facility], [address], [place], [place], [address], [place] [phone] [facility] chronic pain (chief complaint)Anxie ty (chief complaint)HLP (chief complaint) Other and unspecified hyperlipidemia Pain in joint involving lower leg 4 Gaston Dong. [address], [place], [place], [address] , [place]. [phone] Referring Provider: Iker Feldman, [address], [place], [place], [address]. tel:[phone] OFFICE/OUTPA TIENT VISIT, [facility], [facility] [address], [place], [place], [address], [place] tel:[phone] [facility] HLP (chief complaint)chron ic pain (chief complaint)anxie ty (chief complaint)HTN (chief complaint)CAD (chief complaint)GERD (chief complaint) Hypothyroidism CAD, [place]aver VesselHyperten jayleen, UnspecifiedCHR ONIC PAIN NEC 4 Gaston Dong. [address], [place], [place], [address] , [place]. [phone] Referring Provider: Franky Dunham [address], [place], [place], [address]. tel:[phone] OFFICE/OUTPA TIENT VISIT, [facility], [address], [place], [place], [address], [place] tel:[phone] [facility] chronic pain (chief complaint)anxie ty (chief complaint) Hypothyroidism Pain in joint involving lower leg 4 Gaston Dong. [address], [place], [place], [address] , [place]. tel:[phone] Referring Provider: Iker Feldman [address], [place], [place], [address]. tel:[phone] OFFICE/OUTPA TIENT VISIT, [facility], [address], [place], [place], [address], [place] [phone] [facility] chronic pain (chief complaint)anxie ty (chief complaint)GERD (chief complaint)CAD (chief complaint) Pain in joint involving lower legCAD, Beaver VesselAcute gastric ulcer without mention of hemorrhage or perforation, with obstructionHyp othyroidism 4 Gaston Dong. [address], [address], [place], [place], [address] , [place]. tel:[phone] Referring Provider: Franky Dunham [address], [place], [place], [address]. tel:[phone] OFFICE/OUTPA TIENT VISIT, [facility], [address], [place], [place], [address], [place] [phone] [facility] chornic pain (chief complaint)anxie ty (chief complaint)HTN (chief complaint) CHRONIC PAIN NECHypertensio n, Unspecified 4 Gaston Dong. [address], [place], [place], [address] , [place]. [phone] Referring Provider: Franky Dunham [address], [place], [place], [address]. tel:[phone] OFFICE/OUTPA TIENT VISIT, [facility], [address], [place], [address], [place] [phone] [facility] GERD (chief complaint)chorn ic pain (chief complaint)anxie ty (chief complaint) GERDCHRONIC PAIN NEC 4 Gaston Dong. [address], [place], [place], [address] , [place]. [phone] Referring Provider: Franky Dunham [address], [place], [place], [address]. tel:[phone] OFFICE/OUTPA TIENT VISIT, [facility], [address], [place], [place], [address], [place] tel:[phone] [facility] gastric ulcer (chief complaint)chorn ic pain (chief complaint)anxie ty (chief complaint)hypot hyroidism (chief complaint) Acute gastritis (without mention of hemorrhage)CHR ONIC PAIN NECPain in joint involving lower legHypothyroid ism 4 Gaston Dong. [address], [place], [place], [address] , [place]. [phone] Referring Provider: Franky Dunham [address], [place], [place], [address]. tel:[phone] OFFICE/OUTPA TIENT VISIT, [facility], [address], [place], [place], [address], [place] tel:[phone] [facility] chornic pain (chief complaint)anxie ty (chief complaint)gastr ic ulcer (chief complaint)CAD (chief complaint) Acute gastric ulcer without mention of hemorrhage or perforation, with obstructionPai n in joint involving lower legCAD, [place] 4 Gaston Dong. [address], [place], [place], [address] , [place]. [phone] Referring Provider: Franky Dunham [address], [place], [place], [address]. tel:[phone] OFFICE/OUTPA TIENT VISIT, [facility], [address], [place], [place], [address], [place] tel:[phone] [facility] HLP (chief complaint)CAD (chief complaint)hemat uria (chief complaint)chorn ic pain (chief complaint)anxie ty (chief complaint) Other and unspecified hyperlipidemia CAD, Beaver VesselHEMATURI A NOSPain in joint involving lower leg 4 Gaston Dong. [address], [place], [place], [address] , [place]. [phone] Referring Provider: Franky Dunham [address], [place], [place], [address]. tel:[phone] OFFICE/OUTPA TIENT VISIT, [facility], [address], [place], [place], [address], [place] tel:[phone] [facility] hematuria (chief complaint)hypot hyroidism (chief complaint)chron ic painPt (chief complaint) HEMATURIA NOSCHRONIC PAIN NECHypothyroid ism Mar-0 4 Gaston Dong. [address], [place], [place], [address] , [place]. tel:[phone] Referring Provider: Iker Feldman, [address], [place], [place], [address]. tel:[phone] OFFICE/OUTPA TIENT VISIT, [facility], [address], [place], [place], [address], [place] tel:[phone] [facility] chronic pain (chief complaint)HLP (chief complaint)Anxie ty (chief complaint)hemtu valerio (chief complaint) CHRONIC PAIN NECHypothyroid ismOther and unspecified hyperlipidemia HEMATURIA NOS Feb- 4 Gaston Dong. [address], [place], [place], [address] , [place]. tel:[phone] Referring Provider: Franky Dunham [address], [place], [place], [address]. tel:[phone] OFFICE/OUTPA TIENT VISIT, [facility], [address], [place], [place], [address], [place] tel:[phone] [facility] CAD (chief complaint)chorn ic pain (chief complaint)anxie ty (chief complaint)Hypot hyroidism (chief complaint) Hypothyroidism CAD, [place] VesselOther and unspecified hyperlipidemia CHRONIC PAIN NEC 4 Gaston Dong. [address], [place], [place], [address] , [place]. tel:[phone] Referring Provider: Franky Dunham [address], [place], [place], [address]. tel:[phone] OFFICE/OUTPA TIENT VISIT, [facility], [address], [place], [place], [address], [place] tel:[phone] [facility] chronic pain (chief complaint)anxie ty (chief complaint) CHRONIC PAIN NEC Dec- 3 Gaston Dong. [address], [place], [place], [address] , [place]. [phone] Referring Provider: Franky Dunham [address], [place], [place], [address]. tel:[phone] OFFICE/OUTPA TIENT VISIT, [facility], [address], [place], [place], [address], [place] [phone] [facility] chronic pain (chief complaint)anxie ty (chief complaint) CHRONIC PAIN NECHypothyroid ismOther and unspecified hyperlipidemia 3 Gaston Dong. [address], [place], [place], [address] , [place]. [phone] Referring Provider: Franky Dunham [address], [place], [place], [address]. tel:[phone] OFFICE/OUTPA TIENT VISIT, [facility], [address], [place], [place], [address], [place] tel:[phone] [facility] hypothyroidism (chief complaint)Chron ic pain (chief complaint)anxie ty (chief complaint) Hypothyroidism Other and unspecified hyperlipidemia CAD, [place] Dec-0 3 Gaston Pickett [address], [place], [place], [address] , [place]. [phone] Referring Provider: Franky Dunham [address], [place], [place], [address]. tel:[phone] OFFICE/OUTPA TIENT VISIT, [facility], [address], [place], [place], [address], [place] tel:[phone] [facility] chronic pain (chief complaint)anxie ty (chief complaint) CHRONIC PAIN NECHypothyroid ismOther and unspecified hyperlipidemia Sep-0 3 Gaston Dong. [address], [place], [place], [address] , [place]. tel:[phone] Referring Provider: Iker Feldman, [address], [place], [place], [address]. tel:[phone] OFFICE/OUTPA TIENT VISIT, [facility], [address], [place], [place], [address], [place] tel:[phone] [facility] Hypothyroidism (chief complaint)CAD (chief complaint)chron ic pain (chief complaint) Hypothyroidism CAD, Beaver VesselCHRONIC PAIN NEC 3 Gaston Dong. [address], [place], [place], [address] , [place]. tel:[phone] Referring Provider: Franky Dunham [address], [place], [place], [address]. tel:[phone] OFFICE/OUTPA TIENT VISIT, [facility], [address], [place], [address], [place] tel:[phone] [facility] CAD (chief complaint)chron ic pain (chief complaint)anxie ty (chief complaint) CAD, Beaver VesselCHRONIC PAIN NECInsomnia, Other 3 Gaston Dong. [address], [place], [place], [address] , [place]. tel:[phone] Referring Provider: Franky Dunham [address], [place], [place], [address]. tel:[phone] OFFICE/OUTPA TIENT VISIT, [facility], [address], [place], [place], [address], [place] tel:[phone] [facility] CAD (chief complaint)Chron ic pain (chief complaint)anxie ty (chief complaint) CAD, Beaver VesselCHRONIC PAIN NECHypothyroid ism 3 Gaston Dong. [address], [place], [place], [address] , [place]. tel:[phone] Referring Provider: Franky Dunham [address], [place], [place], [address]. tel:[phone] OFFICE/OUTPA TIENT VISIT, [facility], [address], [place], [address], [place] tel:[phone] [facility] chronic pain (chief complaint)anxie ty (chief complaint)Hypot hyroidism (chief complaint) Hypothyroidism CHRONIC PAIN NEC May-0 2-201 3 Gaston Dong. [address], [place], [place], [address] , [place]. tel:[phone] Referring Provider: Iker Feldman, [address], [place], [place], [address]. tel:[phone] OFFICE/OUTPA TIENT VISIT, [facility], [address], [place], [place], [address], [place] tel:[phone] [facility] chornic pain (chief complaint)Anxie ty. (chief complaint)hypot hyroidism (chief complaint) Hypothyroidism CHRONIC PAIN NECRESTLESS LEGS SYNDROME Apr-0 5201 3 Gaston Dong. [address], [place], [place], [address] , [place]. tel:[phone] Referring Provider: Franky Dunham [address], [place], [place], [address]. tel:[phone] OFFICE/OUTPA TIENT VISIT, [facility], [address], [place], [address], [place] tel:[phone] [facility] chronic pain (chief complaint)viral (chief complaint)Anxie ty (chief complaint) Viral Infection, UnspecifiedCHR ONIC PAIN NECHypothyroid ism Mar-0 4-201 3 Gaston Dong. [address], [place], [place], [address] , [place]. tel:[phone] Referring Provider: Franky [address], [place], [place], [address]. tel:[phone] OFFICE/OUTPA TIENT VISIT, [facility], [address], [place], [id number], [place] tel:[phone] [facility] chronic pain (chief complaint)Anxie ty (chief complaint)hypot hyroidism (chief complaint)ED (chief complaint) Hypothyroidism CHRONIC PAIN NECErectile Dysfunction Fe 3 Gaston Pickett [address], [address], [place], [place], [address] , [place]. tel:[phone] Referring Provider: Franky Dunham [address], [place], [place], [address]. tel:[phone] OFFICE/OUTPA TIENT VISIT, [facility], [address], [place], [place], [id number], [place] tel:[phone] [facility] hypothyroidism (chief complaint)chron ic pain (chief complaint) CHRONIC PAIN NECHypothyroid ismRESTLESS LEGS SYNDROME 3 Gaston Pickett [address], [address], [place], [place], [id number] , [place]. [phone] Referring Provider: Franky Dunham [address], [place], [place], [address]. tel:[phone] OFFICE/OUTPA TIENT VISIT, [facility], [address], [place], [place], [address], [place] tel:[phone] [facility] chronic pain (chief complaint)restl ess leg syndrome (chief complaint)anxie ty (chief complaint) CHRONIC PAIN NECRESTLESS LEGS SYNDROME 2 Gaston Pickett [address], [address], [place], [place], [id number] , [place]. [phone] Referring Provider: Franky Dunham [address], [place], [place], [address]. tel:[phone] OFFICE/OUTPA TIENT VISIT, [facility], [address], [place], [place], [address], [place] tel:[phone] [facility] chronic pain (chief complaint)restl ess leg (chief complaint) RESTLESS LEGS SYNDROMECHRONI C PAIN NEC 2 Gaston Pickett [address], [address], [place], [place], [id number] , . tel:[phone] Referring Provider: Iker Feldman, [address], [place], [place], [address]. tel:[phone] OFFICE/OUTPA TIENT VISIT, EST [facility], [address], [place], [place], [address], [place] tel:[phone] [facility] chornic pain (chief complaint)anxie ty (chief complaint)insom alverto (chief complaint) Insomnia, OtherCHRONIC PAIN NECRESTLESS LEGS SYNDROME 0-201 2 Gaston Dong[address], [address], [place], [place], [address] , [place]. tel:[phone] Referring Provider: Iker Feldman, [address], [place], [place], [address]. tel:[phone] Family History Family Member Type Diagnosis Age At Onset Father Problem (finding) Cancer - colon CA Mother Problem (finding) Alive and well Brother Problem (finding) Coronary artery disease Brother Problem (finding) Other Payers Payer name Insurance type Covered democrat ID Authoriza ticlaudette(s) [facility] CI [id number] Social History Type Description Quantity Date Captured [...] ordered Referral Referred To: Suzanne Beckham [address] [place], [place] [id number] Ordered: Referrals: Allopathic & Osteopathic Physicians : Urology. Suzanne Beckham. 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 [...] ane flor. Pt denies any blood loss physical Pt needs annual physical .Pt has [...] by urology. He denies any urinary symptoms anxiety Pt has chronic a nxiety and [...] Pt denies any neuropathy hemaemesis1 Pt has ceravntes a nd recent hematemesis. Pt cut down [...] with xanax qhs PRN tobacco1 Pt has mcfp smoking history. 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 Pt takes omeprazole .Pt saw [...] any worsening pain. Pt denies any neuropathy vitamin D Pt has low D. Pt [...] Pt uses incruse Pt needs albuterol refilled insomnia Pt has chronic a nxiety and [...] any worsening pain. Pt denies any neuropathy tobacco Pt has 55 pack y ear tobacco smoking Pt has COPD Pt uses inhalers Pt denies any hemoptysis, worsening sob or cough Pt had LDCT done and is ok bladder CA Pt has bladder C A Pt denies any urinary symptoms Pt is seeing urology and he has recurrence of bladder neoplasm and he will have surgery soon pain Pt has chronic r ight ankle [...] bladder C A Pt supposes to [facility] urology but his cezar was again canceled. Pt did call urology at [facility] who he used to see and they [...] Pt was referred to urology of [facility] and he tried to call for cezar [...] moptysis, worsening sob or cough. LDCT ok COPD1 Pt has COPD Pt u ses [...] sob or cough. Pt denies any hemoptysis pain Pt has chronic r ight ankle [...] any chest pain Pt just saw his internet consultant and was cleared for another year. 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 Pt needs EGD soon Pt denies any GERD COPD1 Pt has COPD Pt t akvalentino incruse. Pt uses ventolin 1-2 per day Pt denies any hemoptysis, sob or cough bladder CA Pt has recurrent bladder CA Pt will go back for surgery again soon anxiety1 Pt has chronic a nxiety and insomnia. Pt takes xanax qhs PRn and doing ok, Pt denies any depression or any suicidal thought. Pt denies any crying spells Pt doing ok with xanax qhs PRN HTN pt has HTN. pt t akvalentino lisinopril and coreg pt has CAD with [...] 1-2 per week Pt needs ventolin refilled GERD1 pt has cervantes P t takes omeprazole. Pt denies any GERD with omeprazole emphysema1 Pt has emphysema . Pt takes incruse daily. Pt still uses albuterol 1-2 per day. Pt overall feels much improved breathing pt still smoking Pt denies any hemoptysis, coughing or worsening sob chronic pain1 Pt has chronic r [...] or worsening sob. Pt needs LDCT chronic pain1 Pt has chronic a nkle pain Pt denies any worsening pain. pt denies any recent injury. Pt failed NSAID and ultram insomnia1 Pt has insomnia Pt takes xanax qhs PRN and doing ok Pt denies any snoring vitamin D1 Pt has low D. pt denies any fracture thyroid1 Pt has low thyro id. Pt takes synthroid. his TSH is ok insomnia1 Pt has insomnia. Pt takes xanax [...] tumor1 Pt underwent zahraa marivel by Dr. Juniro and was successful per pt. Physical PT needs annual physical. pt has bladder CA and he is seeing Dr. Junior in [place] and he will have the mass removed [...] Evaristo braun who is a urologist in [facility] who did the cysto and he told me the renal lesion is almost 100% sure a benign cyst. He did take the Ct to his radiologist over [facility] However, he is not in network [...] Pt just seen uro logy in [facility]. He will do cystoscopy. pt has not [...] denies any depression or any suicidal thought. HLP Pt has CAD and H LP [...] but was successfully treated. No abd pain emphysema1 Pt has mild COPD . Pt [...] to schedule for CT of chest but [facility] will not do it. Pt denies any SOB chronic pain1 Pt has chronic r ight ankle pain. Pt denies any worsening pain. Pt denies any swelling tobacco1 Pt smoked since 6 years old [...] stress test. Pt denies any chest pain HTN Pt takes lisinor pil and coreg [...] denies any abd pain or GERD chronic pain Pt has chronic r [...] denies any depression or any suicdial thought. ceravntes Pt does have bar ret. Pt is [...] denies any depression or any suicidal thought insomnia1 PT has chronic i nsomnia and anxiety. Pt takes xanax qhs PRN and doing ok. Pt denies any sucidal thought Pt denies any crying spells Pt denie any feeling of hopelessness ankle pain1 Pt has chronic r ight ankle pain due to arthritis. Pt enmanuel any worseningpain .Pt takes norco for pain. Pt unable to tolerate NSAID ankle pain Location: ankle. Additional information: Pt [...] (BMI) 27.0-27.9, adult Quit smoking Related to Insom alverto [...] Surveillance and Counseling Quit smoking Related to [place] tt's esophagus without dysplasia Prescribed Activity and Exercise Education Related to Dietary Surveillance and Counseling Prescribed Diet Educ ation/Lifestyle Education Regarding Diet Related to Dietary Surveillance and Counseling Quit smoking Related to Insom alverto Prescribed Activity and Exercise Education Related to Dietary Surveillance and Counseling Prescribed Diet Educ ation/Lifestyle Education Regarding Diet Related to Dietary Surveillance and Counseling Quit smoking Related to [place] tt's esophagus without dysplasia Quit smoking Related [...] Surveillance and Counseling exercise Related to CAD, [place] Vessel Assessments Type Assessment Date assessment Chronic pain syndrome assessment Other insomnia assessment Anemia assessment Acute cystitis with hematuria Au Mental Status Date Cognitive Assessment Orientation - Bow ed to time, place, person, situation.
--- NOTE | 2024-10-23 06:23 | WPDHPUPDATE1 ---
History and Physical Update Update Date/Time: 10/23/24 06:23 History and Physical has been reviewed, including an updated exam of the patient. There are NO changes in the patient's condition. Risks, benefits, and alternatives have been discussed and questions answered. Patient agrees to proceed with procedure.
--- NOTE | 2024-10-23 07:30 | WPDANESEPPF ---
Anes - Initial Pre Proc Eval Procedure: Operation Date: 10/23/24 12:00 Proposed Procedures p Cystoscopy, Right Retrograde Pyelogram, Right Ureteroscopy, Jelmyto Instillation - Vlad Gilliam MD Date/Time: 10/23/24 07:30 Surgeon: Vlad Gilliam MD Pre Op Diagnosis: bladder CA Patient Data Age: 69 Gender: M Height: 1.74 m Weight: 72 kg Allergies Allergy/AdvReac Type Severity Reaction Status Date / Time propoxyphene Allergy Intermediate Hives, Verified 10/20/24 14:32 N/V, Confusion Home Medications ?Medication ?Instructions ?Recorded ?Confirmed ?Type alprazolam 1 mg tablet (Xanax) 1 mg PO DAILY PRN Anxiety 09/14/20 10/20/24 History atorvastatin 40 mg tablet (Lipitor) 40 mg PO DAILY 09/14/20 10/20/24 History calcium phosphate,dibasic 77 50,000 tablet PO [id number] 09/14/20 10/20/24 History mg-vitamin D3 400 unit tablet carvedilol 3.125 mg tablet (Coreg) 3.125 mg PO BID 09/14/20 10/20/24 History clopidogrel 75 mg tablet (Plavix) 75 mg PO DAILY 09/14/20 10/20/24 History hydrocodone 10 mg-acetaminophen 1 tablet PO Q6-8H PRN Pain 09/14/20 10/20/24 History 325 mg tablet levothyroxine 88 mcg tablet 88 mcg PO DAILY 09/14/20 10/20/24 History (Synthroid) lisinopril 10 mg tablet (Zestril) 10 mg PO DAILY 09/14/20 10/20/24 History albuterol sulfate 90 mcg/actuation 2 puff inhalation QID PRN 05/03/21 10/20/24 History aerosol inhaler Shortness Of Breath nitroglycerin 0.4 mg sublingual 0.4 mg sublingual Q5-15M PRN Chest 05/03/21 10/20/24 History tablet Pain umeclidinium 62.5 mcg/actuation 1 inh inhalation DAILY 05/03/21 10/20/24 History blister powder for inhalation (Incruse Ellipta) aspirin 81 mg chewable tablet 81 mg PO DAILY 07/28/22 10/20/24 History pantoprazole 40 mg tablet,delayed 20 mg PO QAM 08/20/24 10/20/24 History release Patient hx anesthesia problems: none Family hx anesthesia problems: none Results Review: All pre-operative results and documents have been reviewed as part of the pre-operative evaluation. [facility] Past Medical History Medical History Non-cardiac chest pain Gastroesophageal reflux disease Chronic obstructive pulmonary disease ST elevation myocardial infarction (STEMI) (07/2012) Restless leg syndrome Hepatitis C virus infection resolved after antiviral drug therapy Bladder cancer Continuous tobacco abuse Coronary artery disease Hypothyroidism Essential hypertension Hyperlipidemia Anxiety and depression Surgical History Surgical History History of cystoscopy Abnormal cystoscopy x8 Right eye trauma History of cardiac catheterization (08/01/12) Aspiration thrombectomy, PTCA, stent x2 in overlapping fashion in major diagonal branch. Per Dr. Gresham. Family History Family History Mother Acute myocardial infarction Leukemia Father Colon cancer Sibling Heart problem Social History Social History Social History: Surrogate medical decision maker: Jodee Álvarez, spouse. Code status: Full code. Smoking packs per day: 1 Smoking cigarettes per day: 20.0 Years smoked: 25 Smoking pack-years: 25.00 Smoking status: Former smoker Tobacco type: cigarettes, pipe and cigars Second hand tobacco smoke exposure: Yes Smoking end date: 03/12/94 Additional smoking assessment comments: Pt still smokes pipe and cigars but no inhale Alcohol intake: current Drinks per week: 2 Alcohol use details: BEER Substance use: current Substance use type: marijuana Other substance usage details: smokes 3x weekly Last use: 12/25/22 Do You Feel Safe in your Home?: Yes Lack of Transportation: No Lack of Food: Never True Current Housing: I Have Housing Concerned About Future Housing: No Difficulty Paying Gas/Electric Bills: No Difficulty Paying for Meds: No Currently Unemployed: No Education: High School Diploma/GED Difficulty w/ Childcare or Family Care: No Living arrangements: with family Additional living arrangements comments: Spiritual care concerns: No Anes - Eval Final PreProcedure Day of Procedure 10/23/24 07:30 Patient weight: normal Heart: regular rate and rhythm Lungs: clear to auscultation Airway: Mallampati scale class II Neurological: alert and oriented Last oral intake: >/= 8 hours ASA classification: III Emergent: no Anesthetic plan: proceed Anesthesia type and monitoring: general LMA and standard monitoring Results Review: All pre-operative results and documents have been reviewed as part of the pre-operative evaluation. Informed Consent: The patient's anesthetic plan and its attendant risks and benefits were discussed with the patient/family/POA. Questions were solicited and answers provided to the satisfaction of the patient/family/POA.
[2024-10-23] MEDS: LACTATED RINGERS 1,000 ML 30 ML IV CONT (10:30)
[2024-10-23] MEDS: SODIUM BICARBONATE TAB 650 MG TABLET 1300 MG PO (10:30)
[2024-10-23] MEDS: ceFAZolin 2 GM in SODIUM CHLORIDE 0.9% IV 50 ML 100 ML IVPB (11:28)
[2024-10-23] MEDS: MITOMYCIN 28 MG URETHRAL (11:36)
--- NOTE | 2024-10-23 11:57 | W.PM.PROC2 ---
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 A 19F rigid cystoscope was placed in the bladder. The bladder was carefully inspected. Mucosa is normal without hyperemia. There was no intravesical neoplasm. A 0.035 in glidewire was advanced in the right renal pelvis and a ureteral catheter was advanced over the guidewire. The retrograde pyelogram was obtained to ensure appropriate positioning of the ureteral catheter in the collecting system. Prior retrograde pyelography had determined a renal pelvic volume of 7cc. We opted to use that prior volume determination for today's instillation. After appropriate reconstitution of the Jelmyto in ice retrograde injection was undertaken through the same ureteral catheter positioned at the UPJ. A total of 7mL (28 mg) of Jelmyto was instilled in the renal pelvis without incident. The volume of Jelmyto wasted was 13 mL (52 mg). the ureteral catheter was allowed to stand for 60 seconds and then removed with ease. Because the patient has no history of ureteral stricture I opted not to place a ureteral stent. Patient tolerated the procedure well was taken to the recovery room in good condition.
== END 2024-10-23 13:18 | disposition home or self-care (01) ==
PROVIDERS: PCP Emergency Medicine; Visit Provider Urology
PROC: (CPT 52352; principal; 2024-10-23 12:00)
DX: C65.1 Malignant neoplasm of right renal pelvis (principal); E78.5 Hyperlipidemia, unspecified; E03.9 Hypothyroidism, unspecified; I10 Essential (primary) hypertension; F41.9 Anxiety disorder, unspecified; K21.9 Gastro-esophageal reflux disease without esophagitis; J44.9 Chronic obstructive pulmonary disease, unspecified; I25.10 Atherosclerotic heart disease of native coronary artery without angina pectoris; G25.81 Restless legs syndrome; I25.2 Old myocardial infarction; F17.290 Nicotine dependence, other tobacco product, uncomplicated; Z79.02 Long term (current) use of antithrombotics/antiplatelets; Z79.891 Long term (current) use of opiate analgesic; Z79.51 Long term (current) use of inhaled steroids; Z79.82 Long term (current) use of aspirin; Z98.890 Other specified postprocedural states; Z98.61 Coronary angioplasty status; Z85.51 Personal history of malignant neoplasm of bladder; Z80.6 Family history of leukemia; Z80.0 Family history of malignant neoplasm of digestive organs; Z82.49 Family history of ischemic heart disease and other diseases of the circulatory system
CPT/HCPCS: C9789; 74420; J0690; A9270; C1758; C1769; J2405; J2704; J7120; J9281; Q9966

== ENCOUNTER 2024-10-30 01:03 | Day surgery (SDC) | payer MEDICARE, MEDICAID, SELFPAY ==
--- OUTSIDE RECORDS SUMMARY | 2024-10-14 09:14 | XMS_ITS | Continuity of Care Document ---
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 tel:[phone] OFFICE/OUTPA TIENT VISIT, EST [facility], [address], [place], [place], [address], [place] tel:[phone] [facility] pain (chief complaint)anxie ty1 (chief complaint)anemi a1 (chief complaint)bladd er CA (chief complaint) AnemiaChronic pain syndromeMalign ant neoplasm of bladder, unspecifiedOth er insomnia 5 Gaston Pickett [address], [place], [place], [address] , [place]. tel:[phone] PREV VISIT, EST, 65 & OVER [facility], [address], [place], [place], [address], [place] tel:[phone] [facility] physical (chief complaint) Centrilobular emphysemaChron ic pain syndromeMalign ant neoplasm of bladder, unspecifiedHyp othyroidismMix ed hyperlipidemia Encounter for general adult medical exam w abnormal findingsCorona ry artery disease of douglas coronary artery w/o angina pectorisGERD without esophagitis 5 Gaston Pickett [address], [place], [place], [address] , [place]. tel:[phone] OFFICE/OUTPA TIENT VISIT, [facility], [address], [place], [place], [address], [place] tel:[phone] [facility] pain (chief complaint)anxie ty1 (chief complaint)COPD1 (chief complaint) Chronic pain syndromePrimar y insomniaCentri lobular emphysemaPerso nal history of nicotine dependenceMali gnant neoplasm of bladder, unspecified July-0 8- 5 Feldman Iker. [address], [place], [place], [address] , [place]. [phone] OFFICE/OUTPA TIENT VISIT, [facility], [address], [place], [place], [address], [place] tel:[phone] [facility] pain (chief complaint)anxie ty1 (chief complaint) Chronic pain syndromePrimar y insomnia Apr-0 7- 5 Gaston Dong. [address], [place], [place], [address] , [place]. tel:[phone] OFFICE/OUTPA TIENT VISIT, [facility], [address], [place], [place], [address], [place] tel:[phone] [facility] pain (chief complaint)anxie ty1 (chief complaint) Chronic pain syndromePrimar y insomnia May-0 4-202 5 Gaston Dong. [address], [place], [place], [address] , [place]. [phone] OFFICE/OUTPA TIENT VISIT, [facility], [address], [place], [place], [address], [place] tel:[phone] [facility] pain (chief complaint)anxie ty1 (chief complaint)COPD1 (chief complaint) Chronic pain syndromeCentri lobular emphysemaPrima ry insomnia Feb-0 6-202 5 Feldman Iker. [address], [place], [place], [address] , [place]. tel:[phone] OFFICE/OUTPA TIENT VISIT, [facility], [address], [place], [place], [address], [place] tel:[phone] [facility] Medicine pain (chief complaint)anxie ty1 (chief complaint)thyro id1 (chief complaint) Chronic pain syndromePrimar y insomniaHypoth yroidism 5 Gaston Dong. [address], [place], [place], [address] , [place]. tel:[phone] OFFICE/OUTPA TIENT VISIT, [facility], [address], [place], [place], [address], [place] tel:[phone] [facility] Medicine pain (chief complaint)anxie ty1 (chief complaint) Chronic pain syndromePrimar y insomnia 4 Gaston Dong. [address], [place], [place], [address] , [place]. tel:[phone] OFFICE/OUTPA TIENT VISIT, [facility], [address], [place], [place], [address], [place] tel:[phone] [facility] pain (chief complaint)anxie ty1 (chief complaint)COPD1 (chief complaint) Chronic pain syndromePrimar y insomniaCentri lobular emphysema 4 Gaston Dong. [address], [place], [place], [address] , [place]. tel:[phone] OFFICE/OUTPA TIENT VISIT, [facility], [address], [place], [place], [address], [place] tel:[phone] [facility] pain (chief complaint)anxie ty1 (chief complaint) Chronic pain syndromePrimar y insomnia 4 Gaston Dong. [address], [place], [place], [address] , [place]. tel:[phone] OFFICE/OUTPA TIENT VISIT, [facility], [address], [place], [place], [address], [place] tel:[phone] [facility] Medicine pain (chief complaint)anxie ty1 (chief complaint) Chronic pain syndromePrimar y insomnia 4 Feldman Iker. [address], [place], [place], [address] , [place]. tel:[phone] OFFICE/OUTPA TIENT VISIT, [facility], [address], [place], [place], [address], [place] tel:[phone] [facility] pain (chief complaint)anxie ty1 (chief complaint)COPD1 (chief complaint) Centrilobular emphysemaChron ic pain syndromePrimar y insomnia 4 Feldman Iker. [address], [place], [place], [address] , [place]. tel:[phone] OFFICE/OUTPA TIENT VISIT, [facility], [address], [place], [place], [address], [place] tel:[phone] [facility] pain (chief complaint)anxie ty1 (chief complaint) Chronic pain syndromePrimar y insomnia 4 Feldman Iker. [address], [place], [place], [address] , [place]. tel:[phone] OFFICE/OUTPA TIENT VISIT, [facility], [address], [place], [place], [address], [place] tel:[phone] [facility] pain (chief complaint)anxie ty1 (chief complaint)COPD1 (chief complaint)bladd er Ca (chief complaint) Centrilobular emphysemaChron ic pain syndromePrimar y insomniaMalign ant neoplasm of bladder, unspecified 4 Feldman Iker. [address], [place], [place], [address] , [place]. tel:[phone] OFFICE/OUTPA TIENT VISIT, [facility], [address], [place], [place], [address], [place] tel:[phone] [facility] pain (chief complaint)anxie ty (chief complaint)thyro id1 (chief complaint)HLP (chief complaint) Chronic pain syndromeHypoth yroidismMixed hyperlipidemia Primary insomniaCentri lobular emphysema July- 4 Gaston Dong. [address], [place], [place], [address] , [place]. tel:[phone] PREV VISIT, EST, 65 & OVER [facility], [address], [place], [place], [address], [place] tel:[phone] [facility] physical (chief complaint) Encounter for general adult medical exam w abnormal findingsCentri lobular emphysemaChron ic pain syndromePrimar y insomniaHypoth yroidismMalign ant neoplasm of bladder, unspecifiedGER D w/o esophagitisCor onary artery disease of douglas coronary artery w/o angina pectoris Jun- 4 Gaston Dong. [address], [place], [place], [address] , [place]. [phone] OFFICE/OUTPA TIENT VISIT, [facility], [address], [place], [place], [address], [place] tel:[phone] [facility] pain (chief complaint)anxie ty1 (chief complaint) Chronic pain syndromePrimar y insomnia May- 4 Gaston Dong. [address], [place], [place], [address] , [place]. [phone] OFFICE/OUTPA TIENT VISIT, [facility], [address], [place], [place], [address], [place] tel:[phone] [facility] pain (chief complaint)anxie ty1 (chief complaint)COPD1 (chief complaint) Centrilobular emphysemaChron ic pain syndromePrimar y insomnia Apr- 4 Gaston Dong. [address], [place], [place], [address] , [place]. tel:[phone] OFFICE/OUTPA TIENT VISIT, [facility], [address], [place], [place], [address], [place] tel:[phone] [facility] pain (chief complaint)anxie y1 (chief complaint)hypot hyroidism1 (chief complaint) Hypothyroidism Chronic pain syndromePrimar y insomnia Mar- 4 Feldman Iker. [address], [place], [place], [address] , [place]. tel:[phone] OFFICE/OUTPA TIENT VISIT, [facility], [address], [place], [place], [address], [place] tel:[phone] [facility] pain (chief complaint)anxie ty1 (chief complaint) Chronic pain syndromePrimar y insomnia Feb- 3 Gaston Dong. [address], [place], [place], [address] , [place]. tel:[phone] OFFICE/OUTPA TIENT VISIT, [facility], [address], [place], [place], [address], [place] tel:[phone] [facility] pain (chief complaint)pain (chief complaint)anxie ty1 (chief complaint) Chronic pain syndromePrimar y insomnia Jan- 3 Gaston Dong. [address], [place], [place], [address] , [place]. tel:[phone] OFFICE/OUTPA TIENT VISIT, [facility], [address], [place], [place], [address], [place] tel:[phone] [facility] pain (chief complaint)anxie ty1 (chief complaint) Chronic pain syndromePrimar y insomnia Jan-0 3 Gaston Iker. [address], [place], [place], [address] , [place]. tel:[phone] OFFICE/OUTPA TIENT VISIT, [facility], [address], [place], [place], [address], [place] tel:[phone] [facility] Medicine pain (chief complaint)anxie ty1 (chief complaint)hypot hyroidism1 (chief complaint) Chronic pain syndromePrimar y insomniaHypoth yroidism 3 Gaston Dong. [address], [place], [place], [address] , [place]. tel:[phone] OFFICE/OUTPA TIENT VISIT, [facility], [address], [place], [place], [address], tel:[phone] [facility] pain (chief complaint)anxie ty1 (chief complaint) Chronic pain syndromePrimar y insomnia Sep-0 3 Gaston Dong. [address], [place], [place], [address] , [place]. tel:[phone] OFFICE/OUTPA TIENT VISIT, [facility], [address], [place], [place], [address], [place] tel:[phone] [facility] PAIN (chief complaint)anxie ty1 (chief complaint)bladd er CA1 (chief complaint) Chronic pain syndromePrimar y insomniaMalign ant neoplasm of bladder, unspecifiedAcq uired renal cystCentrilobu lar emphysema Oct- 3 Gaston Dong. [address], [place], [place], [address] , [place]. tel:[phone] OFFICE/OUTPA TIENT VISIT, [facility], [address], [place], [place], [address], [place] tel:[phone] [facility] pain (chief complaint)anxie ty1 (chief complaint)GERD1 (chief complaint) Cervantes's esophagus without dysplasiaChron ic pain syndromePrimar y insomnia Sep-0 3 Gaston Dong. [address], [place], [place], [address] , [place]. tel:[phone] OFFICE/OUTPA TIENT VISIT, [facility], [address], [place], [place], [address], [place] tel:[phone] [facility] pain (chief complaint)anxie ty1 (chief complaint)hemae mesis1 (chief complaint)kidne y tumor1 (chief complaint) HematemesisChr onic pain syndromePrimar y insomniaMalign ant neoplasm of bladder, unspecified Bebeto-0 3 Gaston Dong. [address], [place], [place], [address] , . tel:[phone] OFFICE/OUTPA TIENT VISIT, EST [facility], [address] [place], [place], [address], tel:[phone] [facility] hematemesis1 (chief complaint) HematemesisBar rett's esophagus without dysplasiaAther osclerotic heart disease of douglas coronary artery without angina pectoris 3 Gaston Pickett [address], [place], [place], [address] , [place]. tel:[phone] OFFICE/OUTPA TIENT VISIT, EST [facility], [address], [place], [place], [address], tel:[phone] [facility] pain (chief complaint)insom nia1 (chief complaint) Chronic pain syndromePrimar y insomnia 3 Gaston Dong. [address], [place], [place], [address] , [place]. tel:[phone] PREV VISIT, EST, 65 & OVER [facility], [address], [place], [place], [address], [place] tel:[phone] [facility] physical (chief complaint) Encounter for general adult medical exam w abnormal findingsHypoth yroidismChroni c pain syndromeCentri lobular emphysemaEleva palomo prostate specific antigen [PSA]Asymptoma tic microscopic hematuriaMixed hyperlipidemia Cervantes's esophagus without dysplasiaPrima ry insomnia 3 Gaston Pickett [address], [place], [place], [address] , [place]. tel:[phone] OFFICE/OUTPA TIENT VISIT, EST [facility], [address] [place], [address], [place] tel:[phone] [facility] pain (chief complaint)insom nia1 (chief complaint)HTN (chief complaint)thyro id1 (chief complaint)bladd er CA (chief complaint) Chronic pain syndromePrimar y insomniaHypoth yroidismEssent ial (primary) hypertensionMi xed hyperlipidemia Malignant neoplasm of bladder, unspecified 3 Gaston Dong. [address], [place], [place], [address] , [place]. tel:[phone] OFFICE/OUTPA TIENT VISIT, [facility], [address], [place], [place], [address], [place] tel:[phone] [facility] pain (chief complaint)insom nia1 (chief complaint)kidne y1 (chief complaint)COPD1 (chief complaint) Chronic pain syndromePrimar y insomniaOther specified disorder of kidneyCentrilo bular emphysema 3 Gaston Dong. [address], [place], [place], [address] , [place]. tel:[phone] OFFICE/OUTPA TIENT VISIT, [facility], [address], [place], [place], [address], [place] tel:[phone] [facility] pain (chief complaint)insom nia1 (chief complaint)tobac co1 (chief complaint)bladd er CA1 (chief complaint) Chronic pain syndromePrimar y insomniaMalign ant neoplasm of bladder, unspecifiedTob acco use 3 Gaston Dong. [address], [place], [place], [address] , [place]. tel:[phone] OFFICE/OUTPA TIENT VISIT, [facility], [address] [place], [address], [place] tel:[phone] [facility] pain (chief complaint)insom nia1 (chief complaint) Chronic pain syndromePrimar y insomnia 2 Gaston Dong. [address], [place], [place], [address] , [place]. tel:[phone] OFFICE/OUTPA TIENT VISIT, [facility], [address], [place], [place], [address], [place] tel:[phone] [facility] pain (chief complaint)insom nia1 (chief complaint) Chronic pain syndromePrimar y insomnia 2 Gaston Dong. [address], [place], [place], [address] , [place]. tel:[phone] OFFICE/OUTPA TIENT VISIT, [facility], [address], [place], [place], [address], [place] tel:[phone] [facility] pain (chief complaint)insom nia1 (chief complaint)barre tt1 (chief complaint) Chronic pain syndromePrimar y insomniaBarret t's esophagus without dysplasiaMalig nant neoplasm of bladder, unspecified 2 Gaston Dong. [address], [place], [place], [address] , [place]. tel:[phone] OFFICE/OUTPA TIENT VISIT, [facility], [address], [place], [place], [address], [place] tel:[phone] [facility] pain (chief complaint)insom nia1 (chief complaint)COPD1 (chief complaint)thyro id1 (chief complaint) Chronic pain syndromeBarret t's esophagus without dysplasiaPrima ry insomniaHypoth yroidismCentri lobular emphysema 2 Gaston Dong. [address], [place], [place], [address] , [place]. tel:[phone] OFFICE/OUTPA TIENT VISIT, [facility], [address], [address], [place] tel:[phone] [facility] pain (chief complaint)insom nia1 (chief complaint)CAD (chief complaint) Coronary artery disease of douglas coronary artery w/o angina pectorisChroni c pain syndromePrimar y insomnia 2 Gaston Dong. [address], [place], [place], [address] , [place]. tel:[phone] OFFICE/OUTPA TIENT VISIT, [facility], [address], [place], [place], [address], [place] tel:[phone] [facility] pain (chief complaint)insom nia1 (chief complaint) Chronic pain syndromePrimar y insomnia 2 Feldman Iker. [address], [place], [place], [address] , [place]. tel:[phone] OFFICE/OUTPA TIENT VISIT, [facility], [address], [place], [place], [address], [place] tel:[phone] [facility] pain (chief complaint)insom nia1 (chief complaint) Chronic pain syndromePrimar y insomnia Aug- 2 Feldman Iker. [address], [place], [place], [address] , [place]. tel:[phone] OFFICE/OUTPA TIENT VISIT, [facility], [address], [place], [place], [address], [place] tel:[phone] [facility] pain (chief complaint)insom nia1 (chief complaint)[place] tt1 (chief complaint)renal CA (chief complaint) Polyp of colonBarrett's esophagus without dysplasiaInsom niaChronic pain syndromeCa of left kidney, except renal pelvis 2 Feldman Iker. [address], [place], [place], [address] , [place]. tel:[phone] OFFICE/OUTPA TIENT VISIT, [facility], [address], [place], [place], [address], [place] tel:[phone] [facility] pain (chief complaint)insom nia1 (chief complaint)vitam in D (chief complaint)colon polyp (chief complaint)emphy sema1 (chief complaint) Chronic pain syndromeInsomn iaVitamin D deficiencyPoly p of colonEmphysema 2 Feldman Iker. [address], [place], [place], [address] , [place]. tel:[phone] PREV VISIT, EST, 65 & OVER [facility], [address], [place], [place], [address], [place] tel:[phone] [facility] physical (chief complaint) Hyperlipidemia Chronic pain syndromeMalign ant neoplasm of bladder, unspecifiedBar rett's esophagus without dysplasiaEmphy semaFolate deficiencyHypo calcemiaHypoth yroidismInsomn iaEncounter for general adult medical exam w abnormal findings 2 Gaston Pickett [address], [place], [place], [address] , [place]. tel:[phone] OFFICE/OUTPA TIENT VISIT, [facility], [address], [address], [place] tel:[phone] [facility] pain (chief complaint)insom nia1 (chief complaint)bladd er tumor1 (chief complaint)thyro id1 (chief complaint)CAD1 (chief complaint) Chronic pain syndromeInsomn iaMalignant neoplasm of bladder, unspecifiedHyp erlipidemiaHyp othyroidism 2 Gaston Pickett [address], [place], [place], [address] , [place]. tel:[phone] OFFICE/OUTPA TIENT VISIT, [facility], [address], [address], [place] tel:[phone] [facility] pain (chief complaint)bladd er CA (chief complaint)tobac co (chief complaint)insom nia1 (chief complaint)GERD1 (chief complaint) Chronic pain syndromeInsomn iaBarrett's esophagus without dysplasiaMalig nant neoplasm of bladder, unspecifiedTob acco use 2 Gaston Pickett [address], [place], [place], [address] , [place]. tel:[phone] OFFICE/OUTPA TIENT VISIT, [facility], [address], [address], [place] tel:[phone] [facility] pain (chief complaint)insom nia1 (chief complaint)tobac co1 (chief complaint)bladd er CA (chief complaint)GERD1 (chief complaint) Malignant neoplasm of bladder, unspecifiedIns omniaChronic pain syndromeTobacc o useBarrett's esophagus without dysplasia 1 Feldman Iker. [address], [place], [place], [address] , [place]. tel:[phone] OFFICE/OUTPA TIENT VISIT, [facility], [address], [place], [place], [address], [place] tel:[phone] [facility] pain (chief complaint)insom nia1 (chief complaint)GERD1 (chief complaint)bladd er CA1 (chief complaint) InsomniaChroni c pain syndromeBarret t's esophagus without dysplasiaMalig nant neoplasm of bladder, unspecified 1 Feldman Iker. [address], [place], [place], [address] , [place]. tel:[phone] OFFICE/OUTPA TIENT VISIT, [facility], [address], [place], [place], [address], [place] tel:[phone] [facility] pain (chief complaint)insom nia1 (chief complaint)thyro id1 (chief complaint)bladd er CA (chief complaint) InsomniaHypoth yroidismMalign ant neoplasm of bladder, unspecifiedChr onic pain syndrome 1 Gaston Dong. [address], [place], [place], [address] , [place]. tel:[phone] OFFICE/OUTPA TIENT VISIT, [facility], [address] [place], [address], [place] tel:[phone] [facility] pain (chief complaint)insom nia1 (chief complaint)COPD1 (chief complaint)bladd er CA (chief complaint) InsomniaChroni c pain syndromeTobacc o useEmphysemaMa lignant neoplasm of bladder, unspecified Nov-3 1 Feldman Iker. [address], [place], [place], [address] , [place]. tel:[phone] OFFICE/OUTPA TIENT VISIT, [facility], [address], [place], [place], [address], [place] tel:[phone] [facility] pain (chief complaint)insom nia1 (chief complaint)tobac co1 (chief complaint) Chronic pain syndromeInsomn iaTobacco use 1 Gaston Pickett [address], [place], [place], [address] , [place]. tel:[phone] OFFICE/OUTPA TIENT VISIT, [facility], [address], [address], [place] tel:[phone] [facility] pain (chief complaint)insom nia1 (chief complaint)renal 1 (chief complaint) LeukocytosisAc hydaburg renal failureHypokal emiaInsomniaCh ronic pain syndromeEssent ial (primary) hypertension 1 Gaston Pickett [address], [place], [place], [address] , [place]. [phone] OFFICE/OUTPA TIENT VISIT, [facility], [address], [address], [place] tel:[phone] [facility] pain1 (chief complaint)insom nia1 (chief complaint)barre tt (chief complaint)weigh t loss1 (chief complaint) Chronic pain syndromeInsomn iaBarrett's esophagus without dysplasiaAbnor mal weight loss 1 Gaston Pickett [address], [place], [place], [address] , [place]. [phone] OFFICE/OUTPA TIENT VISIT, [facility], [address], [address], [place] tel:[phone] [facility] pain (chief complaint)insom na1 (chief complaint) Chronic pain syndromeInsomn ia 1 Gaston Pickett [address], [address] , [place]. tel:[phone] OFFICE/OUTPA TIENT VISIT, [facility], [address], [address], [place] tel:[phone] [facility] pain (chief complaint)insom nia1 (chief complaint)vitam in D (chief complaint) Chronic pain syndromeInsomn iaVitamin D deficiency, unspecified 1 Gaston Dong. [address], [place], [place], [address] , [place]. tel:[phone] OFFICE/OUTPA TIENT VISIT, [facility], [address], [place], [place], [address], [place] tel:[phone] [facility] pain (chief complaint)insom nia1 (chief complaint) Chronic pain syndromeInsomn ia 1 Gaston Dong. [address], [place], [place], [address] , [place]. tel:[phone] OFFICE/OUTPA TIENT VISIT, [facility], [address], [place], [place], [address], [place] tel:[phone] [facility] pain (chief complaint)insom nia1 (chief complaint)COPD1 (chief complaint) Chronic pain syndromeEmphys emaInsomnia May- 1 Gaston Dong. [address], [place], [place], [address] , [place]. tel:[phone] PREV VISIT, EST, 65 & OVER [facility], [address], [place], [place], [address], [place] tel:[phone] [facility] physical (chief complaint) Encounter for general adult medical exam w abnormal findingsChroni c pain syndromeEmphys emaInsomniaHyp othyroidismCor onary artery disease of douglas coronary artery w/o angina pectorisMalign ant neoplasm of bladder, unspecified 1 Gaston Dong. [address], [place], [place], [address] , [place]. tel:[phone] OFFICE/OUTPA TIENT VISIT, [facility], [address], [place], [place], [address], [place] tel:[phone] [facility] pain (chief complaint)insom nia1 (chief complaint)COPD1 (chief complaint) EmphysemaChron ic pain syndromeInsomn ia 0 Gaston Dong. [address], [place], [place], [address] , [place]. tel:[phone] OFFICE/OUTPA TIENT VISIT, [facility], [address], [place], [place], [address], [place] tel:[phone] [facility] pain1 (chief complaint)insom nia1 (chief complaint)hypot hyroidism1 (chief complaint)HLP (chief complaint) Hypothyroidism Hyperlipidemia Chronic pain syndromeInsomn ia 0 Gaston Iker. [address], [place], [place], [address] , [place]. tel:[phone] OFFICE/OUTPA TIENT VISIT, [facility], [address], [place], [place], [address], [place] tel:[phone] [facility] pain (chief complaint)insom nia1 (chief complaint)hypot hyroidism1 (chief complaint)CAD1 (chief complaint) Chronic pain syndromeInsomn iaCoronary artery disease of douglas coronary artery w/o angina pectorisHypoth yroidism 0 Gaston Dong. [address], [place], [place], [address] , [place]. tel:[phone] OFFICE/OUTPA TIENT VISIT, [facility], [address], [place], [place], [address], [place] tel:[phone] [facility] pain (chief complaint)insom nia1 (chief complaint)tobac co1 (chief complaint) Chronic pain syndromeInsomn iaTobacco use 0 Feldman Iker. [address], [place], [place], [address] , [place]. tel:[phone] OFFICE/OUTPA TIENT VISIT, [facility], [address], [place], [place], [address], [place] tel:[phone] [facility] pain (chief complaint)insom nia1 (chief complaint)tobac co (chief complaint)COPD1 (chief complaint) Chronic pain syndromeInsomn iaEmphysemaTob acco use 0 Gaston Iker. [address], [place], [place], [address] , [place]. tel:[phone] OFFICE/OUTPA TIENT VISIT, [facility], [address], [place], [place], [address], [place] tel:[phone] [facility] Medicine pain (chief complaint)insom nia1 (chief complaint)tobac co1 (chief complaint) Chronic pain syndromeInsomn iaTobacco use 0 Gaston Iker. [address], [place], [place], [address] , [place]. tel:[phone] OFFICE/OUTPA TIENT VISIT, [facility], [address], [place], [place], [address], [place] tel:[phone] [facility] pain (chief complaint)insom nia1 (chief complaint) Chronic pain syndromeInsomn iaMalignant neoplasm of bladder, unspecified 0 Gaston Iker. [address], [place], [place], [address] , [place]. tel:[phone] OFFICE/OUTPA TIENT VISIT, [facility], [address], [place], [place], [address], [place] tel:[phone] [facility] Medicine pain1 (chief complaint)anxie ty1 (chief complaint)COPD1 (chief complaint)bladd er CA1 (chief complaint) Chronic pain syndromeInsomn iaEmphysemaMal ignant neoplasm of bladder, unspecified 0 Feldman Iker. [address], [place], [place], [address] , [place]. tel:[phone] OFFICE/OUTPA TIENT VISIT, [facility], [address], [place], [place], [address], [place] tel:[phone] [facility] pain (chief complaint)anxie ty1 (chief complaint)D (chief complaint) InsomniaChroni c pain syndromeVitami n D deficiency, unspecified May- 0 Gaston Dong. [address], [place], [place], [address] , [place]. tel:[phone] OFFICE/OUTPA TIENT VISIT, [facility], [address], [place], [place], [address], [place] tel:[phone] [facility] pain (chief complaint)anxie ty1 (chief complaint) Chronic pain syndromeInsomn ia Apr- 0 Gaston Dong. [address], [place], [place], [address] , [place]. tel:[phone] OFFICE/OUTPA TIENT VISIT, [facility], [address], [place], [place], [address], [place] tel:[phone] [facility] pain1 (chief complaint)anxie ty1 (chief complaint)[place] tt1 (chief complaint)bladd er1 (chief complaint)HTn (chief complaint) Cervantes's esophagus without dysplasiaChron ic pain syndromeInsomn iaMalignant neoplasm of bladder, unspecifiedEss ential (primary) hypertension May- 0 Gaston Pickett [address], [place], [place], [address] , [place]. tel:[phone] Referring Provider: Franky Dunham [facility] A, [place], [place], [address]. tel:[phone] OFFICE/OUTPA TIENT VISIT, [facility], [address], [place], [place], [address], [place] tel:[phone] [facility] copd (chief complaint)pain1 (chief complaint)anxie ty1 (chief complaint)[place] tt1 (chief complaint)CAD (chief complaint) InsomniaBarret t's esophagus without dysplasiaChron ic pain syndromeEmphys emaCoronary artery disease of douglas coronary artery w/o angina pectoris 0 Gaston Pickett [address], [place], [place], [address] , [place]. tel:[phone] Referring Provider: Franky Dunham [place], [address]. tel:[phone] OFFICE/OUTPA TIENT VISIT, [facility], [address] [place], [address], tel:[phone] [facility] anxiety1 (chief complaint)pain (chief complaint)bladd er CA (chief complaint)[place] tt1 (chief complaint)COPD1 (chief complaint) Malignant neoplasm of bladder, unspecifiedEmp hysemaBarrett' s esophagus without dysplasiaChron ic pain syndromeInsomn ia 0 Gaston Dong. [address] [facility] [place], [place], [address] , [place]. tel:[phone] Referring Provider: Franky Dunham [facility] A, [place], [place], [address]. tel:[phone] OFFICE/OUTPA TIENT VISIT, [facility], [address] [place], [place], [address], [place] tel:[phone] [facility] chronic pain1 (chief complaint)anxie ty1 (chief complaint)HTN (chief complaint)bladd er CA (chief complaint) Chronic pain syndromeMalign ant neoplasm of bladder, unspecifiedIns omniaEssential (primary) hypertensionCo ronary artery disease of douglas coronary artery w/o angina pectoris 9 Gaston Pickett [address] [facility] A, [place], [place], [address] , [place]. tel:[phone] Referring Provider: Franky Dunham [address] [facility] A, [place], [place], [address]. tel:[phone] PREV VISIT, EST, 65 & OVER [facility], [address] [place], [place], [address], [place] tel:[phone] [facility] Medicine physical (chief complaint) Encounter for general adult medical exam w abnormal findingsEmphys emaBarrett's esophagus without dysplasiaMalig nant neoplasm of bladder, unspecifiedChr onic pain syndromeHypoth yroidismCorona ry artery disease of douglas coronary artery w/o angina pectoris 9 Gaston Pickett [address], [place], [place], [address] , [place]. [phone] Referring Provider: Iker Feldman, [address], [place], [place], [address]. tel:[phone] OFFICE/OUTPA TIENT VISIT, [facility], [address] [place], [address], [place] tel:[phone] [facility] chronic pain1 (chief complaint)insom nia1 (chief complaint)COPD (chief complaint)HTN (chief complaint) EmphysemaChron ic pain syndromeInsomn iaCoronary artery disease of douglas coronary artery w/o angina pectoris 9 Gaston Pickett [address], [place], [place], [address] , [place]. [phone] OFFICE/OUTPA TIENT VISIT, [facility], [address] [place], [address], [place] tel:[phone] [facility] emphysema1 (chief complaint)chron ic pain1 (chief complaint)insom nia1 (chief complaint)GERD1 (chief complaint) EmphysemaChron ic pain syndromeInsomn iaBarrett's esophagus without dysplasia 0 9 Gaston Pickett [address], [place], [place], [address] , [place]. tel:[phone] OFFICE/OUTPA TIENT VISIT, [facility], [address] [place], [address], [place] tel:[phone] [facility] chronic pain1 (chief complaint)insom nia1 (chief complaint) Chronic pain syndromeInsomn ia Oct- 9 Gaston Pickett [address], [place], [place], [address] , [place]. [phone] OFFICE/OUTPA TIENT VISIT, [facility], [address], [place], [place], [address], [place] tel:[phone] [facility] chronic pain1 (chief complaint)insom nia1 (chief complaint)COPD1 (chief complaint)bladd er tumor1 (chief complaint) Chronic pain syndromeInsomn iaEmphysemaMal ignant neoplasm of bladder, unspecified 9 Gaston Dong. [address], [place], [place], [address] , [place]. tel:[phone] OFFICE/OUTPA TIENT VISIT, [facility], [address], [place], [place], [address], [place] tel:[phone] [facility] chronic pain (chief complaint)anxie ty1 (chief complaint)bladd er CA (chief complaint)lung (chief complaint) Chronic pain syndromeInsomn iaScreening for lung caMalignant neoplasm of bladder, unspecified 9 Gaston Dong. [address], [place], [place], [address] , [place]. [phone] Referring Provider: Franky Dunham [address], [place], [place], [address]. tel:[phone] OFFICE/OUTPA TIENT VISIT, [facility], [address], [place], [place], [address], [place] tel:[phone] [facility] vitamin D1 (chief complaint)thyro id1 (chief complaint)chron ic pain1 (chief complaint)insom nia1 (chief complaint) Hypothyroidism InsomniaChroni c pain syndromeVitami n D deficiency, unspecified 9 Gaston Pickett [address], [place], [place], [address] , [place]. tel:[phone] Referring Provider: Franky Dunham [address], [place], [place], [address]. tel:[phone] OFFICE/OUTPA TIENT VISIT, [facility], [address], [place], [place], [address], [place] tel:[phone] [facility] chronic pain (chief complaint)insom nia1 (chief complaint) Chronic pain syndromeInsomn ia 9 Gaston Dong. [address], [place], [place], [address] , . tel:[phone] Referring Provider: Iker Feldman [address] [facility] A, [place], [place], [address]. tel:[phone] OFFICE/OUTPA TIENT VISIT, [facility], [address], [place], [place], [address], tel:[phone] [facility] chronci pain1 (chief complaint)hypot hyroidism1 (chief complaint)CAD1 (chief complaint)lung (chief complaint) Chronic pain syndromeHypoth yroidismCorona ry artery disease of douglas coronary artery w/o angina pectorisScreen ing for lung caInsomnia 9 Gaston Dong. [address], [facility] A, [place], [place], [address] , . tel:[phone] Referring Provider: Franky Dunham [facility] [place], [address]. tel:[phone] OFFICE/OUTPA TIENT VISIT, [facility], [address] [place], [address], [place] tel:[phone] [facility] chronic pain1 (chief complaint)insom nia1 (chief complaint) Chronic pain syndromeInsomn ia 9 Gaston Dong. [address], [place], [place], [address] , . tel:[phone] Referring Provider: Franky Dunham [facility] A, [place], [place], [address]. tel:[phone] OFFICE/OUTPA TIENT VISIT, [facility], [address] [place], [address], [place] tel:[phone] [facility] CAD1 (chief complaint)[place] tt1 (chief complaint)bladd er tumor1 (chief complaint)chron ic pain1 (chief complaint)insom nia1 (chief complaint) Cervantes's esophagus without dysplasiaChron ic pain syndromeCorona ry artery disease of douglas coronary artery w/o angina pectorisEmphys emaInsomnia 9 Gaston Pickett [address], [place], [place], [address] , [place]. tel:[phone] Referring Provider: Franky Dunham [address], [place], [place], [address]. tel:[phone] OFFICE/OUTPA TIENT VISIT, [facility], [address], [place], [place], [address], [place] tel:[phone] [facility] chronic pain (chief complaint)insom nia1 (chief complaint)bladd er CA1 (chief complaint) Chronic pain syndromeInsomn iaMalignant neoplasm of bladder, unspecified Gaston Pickett [address], [place], [place], [address] , [place]. tel:[phone] Referring Provider: Franky Dunham [facility] A, [place], [place], [address]. tel:[phone] OFFICE/OUTPA TIENT VISIT, [facility], [address], [place], [place], [address], [place] tel:[phone] [facility] chronic pain (chief complaint)anxie ty1 (chief complaint)renal lesion (chief complaint)[place] tt (chief complaint) InsomniaMalign ant neoplasm of bladder, unspecifiedChr onic pain syndromeBarret t's esophagus without dysplasia 8 Gaston [address], [place], [place], [address] , [place]. tel:[phone] Referring Provider: Franky Dunham [address], [place], [place], [address]. tel:[phone] OFFICE/OUTPA TIENT VISIT, [facility], [address] [place], [address], [place] tel:[phone] [facility] thyroid1 (chief complaint)chron ic pain1 (chief complaint)insom nia1 (chief complaint)COPD1 (chief complaint)bladd er tumor1 (chief complaint) EmphysemaInsom niaOther cystic kidney diseasesHypoth yroidismChroni c pain syndrome 8 Gaston Dong. [address], [place], [place], [address] , [place]. tel:[phone] Referring Provider: Franky Dunham [address], [place], [place], [address]. tel:[phone] PREV VISIT, EST, AGE 40-64 [facility], [address], [place], [place], [address], [place] tel:[phone] [facility] Medicine Physical (chief complaint) Encounter for general adult medical exam w abnormal findingsChroni c pain syndromeInsomn iaMalignant neoplasm of bladder, unspecifiedCor onary artery disease of douglas coronary artery w/o angina pectorisHypoth yroidismEmphys zuleima 8 Gaston Dong. [address], [place], [place], [address] , [place]. tel:[phone] Referring Provider: Franky Dunham [address], [place], [place], [address]. tel:[phone] OFFICE/OUTPA TIENT VISIT, EST [facility], [address], [place], [place], [address], [place] tel:[phone] [facility] Medicine bladder CA (chief complaint)kidne y cyst1 (chief complaint)chron ic pain1 (chief complaint)insom nia1 (chief complaint) Malignant neoplasm of bladder, unspecifiedOth er cystic kidney diseasesChroni c pain syndromeInsomn ia 3 0 8 Gaston Dong. [address], [place], [place], [address] , [place]. tel:[phone] Referring Provider: Franky Dunham [address], [place], [place], [address]. tel:[phone] OFFICE/OUTPA TIENT VISIT, EST [facility], [address], [place], [place], [address], [place] tel:[phone] [facility] Medicine chronic pain1 (chief complaint)anxie ty1 (chief complaint)COPD1 (chief complaint)renal 1 (chief complaint) EmphysemaChron ic pain syndromeBladde r disorder, unspecifiedIns omnia 8 Gaston Pickett [address], [place], [place], [address] , [place]. tel:[phone] OFFICE/OUTPA TIENT VISIT, [facility], [address], [place], [place], [address], [place] tel:[phone] [facility] kidney1 (chief complaint)chron ic pain (chief complaint)insom nia1 (chief complaint) Chronic pain syndromeBladde r disorder, unspecifiedOth er cystic kidney diseases 8 Gaston Pickett [address], [place], [place], [address] , [place]. tel:[phone] Referring Provider: Franky Dunham [address], [place], [place], [address]. tel:[phone] OFFICE/OUTPA TIENT VISIT, [facility], [address], [place], [place], [address], [place] tel:[phone] [facility] hypothyroidism (chief complaint)HLP (chief complaint)chron ic pain1 (chief complaint)insom nia1 (chief complaint) Hypothyroidism Hyperlipidemia Chronic pain syndromeInsomn ia 8 Gaston Pickett [address], [place], [place], [address] , [place]. tel:[phone] Referring Provider: Franky Dunham [address], [place], [place], [address]. tel:[phone] OFFICE/OUTPA TIENT VISIT, [facility], [address] [place], [address], [place] tel:[phone] [facility] chronic pain (chief complaint)insom nia1 (chief complaint)CAD1 (chief complaint)COPD1 (chief complaint) Chronic pain syndromeCorona ry artery disease of douglas coronary artery w/o angina pectorisInsomn iaTobacco use 8 Gaston Pickett [address], [place], [place], [address] , [place]. tel:[phone] Referring Provider: Iker Feldman, [address], [place], [place], [address]. tel:[phone] OFFICE/OUTPA TIENT VISIT, [facility], [address], [place], [place], [address], [place] tel:[phone] [facility] chronic pain (chief complaint)insom nia1 (chief complaint)tobac co1 (chief complaint) Chronic pain syndromeInsomn iaTobacco use Mar-3 8 Gaston Dong. [address], [place], [place], [address] , [place]. tel:[phone] OFFICE/OUTPA TIENT VISIT, [facility], [address], [place], [place], [address], [place] tel:[phone] [facility] chronic pain1 (chief complaint)anxie ty1 (chief complaint)tobac co1 (chief complaint)[place] tt (chief complaint) Cervantes's esophagus without dysplasiaInsom niaChronic pain syndromeEmphys zuleima Mar-0 8 Gaston Dong. [address], [place], [place], [address] , [place]. tel:[phone] Referring Provider: Iker Feldman, [address], [place], [place], [address]. tel:[phone] OFFICE/OUTPA TIENT VISIT, [facility], [address], [place], [place], [address], [place] tel:[phone] [facility] chronic pain1 (chief complaint)insom nia1 (chief complaint) InsomniaChroni c pain syndrome Feb-0 8 Gaston Dong. [address], [place], [place], [address] , [place]. tel:[phone] OFFICE/OUTPA TIENT VISIT, [facility], [address], [place], [place], [address], [place] tel:[phone] [facility] COPD1 (chief complaint)chron ic pain1 (chief complaint)insom nia1 (chief complaint)barre tt1 (chief complaint) Cervantes's esophagus without dysplasiaEmphy semaInsomniaCh ronic pain syndrome 8 Gaston Pickett [address], [place], [place], [address] , [place]. [phone] Referring Provider: Franky Dunham [address], [place], [place], [address]. tel:[phone] OFFICE/OUTPA TIENT VISIT, [facility], [address], [place], [place], [address], [place] [phone] [facility] sob (chief complaint)chron ic pain1 (chief complaint)insom nia1 (chief complaint) EmphysemaInsom niaChronic pain syndrome 7 Gaston [address], [place], [place], [address] , [place]. [phone] Referring Provider: Franky Dunham [address], [place], [place], [address]. tel:[phone] OFFICE/OUTPA TIENT VISIT, [facility], [address], [place], [place], [address], [place] tel:[phone] [facility] chrnoic pain (chief complaint)anxei ty1 (chief complaint) Chronic pain syndromeInsomn ia 7 Gaston [address], [place], [place], [address] , [place]. [phone] Referring Provider: Franky Dunham [address], [place], [place], [address]. tel:[phone] OFFICE/OUTPA TIENT VISIT, [facility], [address], [place], [place], [address], [place] tel:[phone] [facility] chronic pain1 (chief complaint)anxie ty1 (chief complaint)thyro id1 (chief complaint)[place] tt1 (chief complaint) InsomniaHypoth yroidismBarret t's esophagus without dysplasiaChron ic pain syndrome 7 Gaston [address], [place], [place], [address] , [place]. [phone] Referring Provider: Franky Dunham [address], [place], [place], [address]. tel:[phone] OFFICE/OUTPA TIENT VISIT, EST [facility], [address], [place], [place], [address], [place] [phone] [facility] chronic pain (chief complaint)anxie ty1 (chief complaint)ED (chief complaint) Chronic pain syndromeInsomn iaMale erectile dysfunction, unspecified Sep-0 7 Gaston Pickett [address], [place], [place], [address] , [place]. [phone] Referring Provider: Franky Dunham [address], [place], [place], [address]. tel:[phone] PREV VISIT, EST, AGE 40-64 [facility], [address], [place], [place], [address], [place] [phone] [facility] Physical (chief complaint) Encounter for general adult medical exam w abnormal findingsHypoth yroidismInsomn iaAtherosclero tic heart disease of douglas coronary artery without angina pectoris 7 [address], [place], [place], [address] , [place]. [phone] Referring Provider: Franky Dunham [address], [place], [place], [address]. tel:[phone] OFFICE/OUTPA TIENT VISIT, EST [facility], [address], [place], [place], [address], [place] [phone] [facility] Cervantes (chief complaint)insom nia1 (chief complaint)chron ic pain1 (chief complaint)CAD (chief complaint) Cervantes's esophagus without dysplasiaChron ic pain syndromeAthero sclerotic heart disease of douglas coronary artery without angina pectorisInsomn ia 7 Gaston Pickett [address], [place], [place], [address] , . tel:[phone] Referring Provider: Franky Dunham [address], [place], [place], [address]. tel:[phone] OFFICE/OUTPA TIENT VISIT, [facility], [address], [place], [place], [address], [place] tel:[phone] [facility] chronic pain1 (chief complaint)insom nia1 (chief complaint) Chronic pain syndromeInsomn ia 7 Gaston Dong. [address], [place], [place], [address] , [place]. tel:[phone] Referring Provider: Franky Dunham [facility] A, [place], [place], [address]. tel:[phone] OFFICE/OUTPA TIENT VISIT, [facility], [address] [place] [address] [place], [address], tel:[phone] [facility] CAD (chief complaint)thyro id1 (chief complaint)hep C (chief complaint)chron ic pain1 (chief complaint)anxie ty1 (chief complaint) Hypothyroidism Atheroscleroti c heart disease of douglas coronary artery without angina pectorisInsomn iaHepatitis C 7 Gaston Dong. [address], [place], [place], [address] , [place]. tel:[phone] Referring Provider: Franky Dunham [facility] A, [place], [place], [address]. tel:[phone] OFFICE/OUTPA TIENT VISIT, [facility], [address] [place], [address], [place] tel:[phone] [facility] chronic pain (chief complaint)insom nia1 (chief complaint)hep C (chief complaint)HLP (chief complaint) InsomniaHyperl ipidemiaEncoun ter for screening for other viral diseasesHypoth yroidism Jun-2 7 Gaston Dong. [address], [place], [place], [address] , [place]. tel:[phone] Referring Provider: Franky Dunham [address], [place], [place], [address]. tel:[phone] OFFICE/OUTPA TIENT VISIT, [facility], [address], [place], [place], [address], [place] tel:[phone] [facility] emphysema1 (chief complaint)chron ic pain (chief complaint)insom nia1 (chief complaint)CAD1 (chief complaint) COPDInsomniaCh ronic pain syndromeAthero sclerotic heart disease of douglas coronary artery without angina pectoris 7 Gaston Dong. [address], [place], [place], [address] , [place]. tel:[phone] Referring Provider: Franky Dunham [address], [place], [place], [address]. tel:[phone] OFFICE/OUTPA TIENT VISIT, [facility], [address], [place], [place], [address], [place] tel:[phone] [facility] chronic pain1 (chief complaint)insom nia1 (chief complaint)CAD (chief complaint)tobac co1 (chief complaint) InsomniaTobacc o useChronic pain syndromeAthero sclerotic heart disease of douglas coronary artery without angina pectoris 7 Gaston Dong. [address], [place], [place], [address] , [place]. tel:[phone] Referring Provider: Franky Dunham [address], [place], [place], [address]. tel:[phone] OFFICE/OUTPA TIENT VISIT, [facility], [address], [place], [place], [address], [place] tel:[phone] [facility] chronic pain (chief complaint)insom nia1 (chief complaint)tobac co1 (chief complaint) Chronic pain syndromeInsomn iaTobacco use 7 Gaston Dong. [address], [place], [place], [address] , [place]. tel:[phone] Referring Provider: Franky Dunham [address], [place], [place], [address]. tel:[phone] OFFICE/OUTPA TIENT VISIT, [facility], [address], [place], [place], [address], [place] tel:[phone] [facility] chronic pain1 (chief complaint)anxie ty1 (chief complaint)ED (chief complaint)GERD1 (chief complaint) Cervantes's esophagus without dysplasiaChron ic pain syndromeInsomn iaMale erectile dysfunction, unspecified Feb- 6 Gaston Dong. [address], [place], [place], [address] , [place]. tel:[phone] Referring Provider: Franky Dun[address], [place], [place], [address]. tel:[phone] OFFICE/OUTPA TIENT VISIT, [facility], [address], [place], [place], [address], [place] tel:[phone] [facility] chronic pain (chief complaint)anxie ty1 (chief complaint) Chronic pain syndromeInsomn ia 6 Gaston Dong. [address], [place], [place], [address] , [place]. tel:[phone] Referring Provider: [address], [place], [place], [address]. tel:[phone] OFFICE/OUTPA TIENT VISIT, [facility], [address], [place], [place], [address], [place] tel:[phone] [facility] chronic pain (chief complaint)anxie ty1 (chief complaint)hypot hyroidism (chief complaint)HTN (chief complaint) Chronic pain syndromeInsomn iaEssential (primary) hypertensionHy pothyroidism Dec- 6 Gaston Dong. [address], [place], [place], [address] , [place]. tel:[phone] Referring Provider: Franky [address], [place], [place], [address]. tel:[phone] OFFICE/OUTPA TIENT VISIT, [facility], [address], [place], [place], [address], [place] tel:[phone] [facility] chronic pain1 (chief complaint)anxie ty1 (chief complaint)GERD1 (chief complaint)HTN (chief complaint) Chronic pain syndromeBarret t's esophagus without dysplasiaEssen tial (primary) hypertensionAn xiolytic dependence Nov- 6 Gaston Dong. [address], [place], [place], [address] , [place]. tel:[phone] Referring Provider: Iker Feldman, [address], [place], [place], [address]. tel:[phone] OFFICE/OUTPA TIENT VISIT, [facility], [address], [place], [place], [address], [place] tel:[phone] [facility] chronic pain (chief complaint)anxie ty1 (chief complaint) Chronic pain syndromeAnxiol ytic dependence 6 Gaston Dong. [address], [place], [place], [address] , [place]. tel:[phone] Referring Provider: [address]y [address], [place], [place], [address]. tel:[phone] OFFICE/OUTPA TIENT VISIT, [facility], [address], [place], [place], [address], [place] tel:[phone] [facility] CAD (chief complaint)HLP (chief complaint)hypot hyroidism (chief complaint)chron ic pain (chief complaint) Atheroscleroti c heart disease of douglas coronary artery without angina pectorisAnxiol ytic dependenceHype rlipidemiaChro flores pain syndrome 6 Gaston Dong. [address], [place], [place], [address] , [place]. tel:[phone] Referring Provider: [address], [place], [place], [address]. tel:[phone] OFFICE/OUTPA TIENT VISIT, [facility], [address], [place], [place], [address], [place] tel:[phone] [facility] chronic pain (chief complaint)insom nia1 (chief complaint)ED1 (chief complaint) Chronic pain syndromeInsomn iaOther male erectile dysfunctionCor onary artery disease of douglas coronary artery w/o angina pectoris 3 6 Gaston Dong. [address], [place], [place], [address] , [place]. tel:[phone] Referring Provider: Franky [address], [place], [place], [address]. tel:[phone] OFFICE/OUTPA TIENT VISIT, [facility], [address], [place], [place], [address], [place] tel:[phone] [facility] chronic pain (chief complaint)anxie ty1 (chief complaint) Chronic pain syndromeAnxiol ytic dependence Aug-0 6 Gaston Dong. [address], [place], [place], [address] , [place]. tel:[phone] Referring Provider: Franky Dunham [facility] A, [place], [place], [address]. tel:[phone] OFFICE/OUTPA TIENT VISIT, [facility], [address], [place], [place], [address], [place] tel:[phone] [facility] chronic pain (chief complaint)anxie ty1 (chief complaint)barre tt (chief complaint)CAD (chief complaint) Chronic pain syndromeBarret t's esophagus without dysplasiaCoron william artery disease of douglas coronary artery w/o angina pectorisEncoun ter for screening for malignant neoplasm of prostate 2 6 Gaston Dong. [address], [place], [place], [address] , [place]. tel:[phone] Referring Provider: [address]y [address], [place], [place], [address]. tel:[phone] OFFICE/OUTPA TIENT VISIT, [facility], [address], [place], [place], [address], [place] tel:[phone] [facility] chronic pain (chief complaint)anxie ty1 (chief complaint)dizzi ness (chief complaint)anemi a1 (chief complaint) AnemiaDizzines sChronic pain syndrome Jun- 6 Gaston Dong. [address], [place], [place], [address] , [place]. tel:[phone] Referring Provider: Iker Feldman, [address], [place], [place], [address]. tel:[phone] OFFICE/OUTPA TIENT VISIT, [facility], [address], [place], [place], [address], [place] tel:[phone] [facility] chronic pain (chief complaint)anxie ty1 (chief complaint) Other insomniaChroni c pain syndrome 6 Gaston Dong. [address], [place], [place], [address] , [place]. tel:[phone] Referring Provider: Iker Feldman [address], [place], [place], [address]. tel:[phone] OFFICE/OUTPA TIENT VISIT, [facility], [address], [place], [place], [address], [place] tel:[phone] [facility] GERD1 (chief complaint)HLP1 (chief complaint)chron ic pain (chief complaint)insom nia1 (chief complaint) Hyperlipidemia Chronic pain syndromeGERD without esophagitisHyp othyroidism 6 Gaston Dong. [address], [place], [place], [address] , [place]. tel:[phone] Referring Provider: Franky [address], [place], [place], [address]. tel:[phone] OFFICE/OUTPA TIENT VISIT, [facility], [address], [place], [place], [address], [place] tel:[phone] [facility] chronic pain (chief complaint)anxie ty1 (chief complaint)GERD1 (chief complaint)CAD (chief complaint) Chronic pain syndromeOther insomniaCorona ry artery disease of douglas coronary artery without angina pectorisHyperl ipidemia 5 Gaston Dong. [address], [place], [place], [address] , [place]. tel:[phone] Referring Provider: Franky Dunham [address], [place], [place], [address]. tel:[phone] OFFICE/OUTPA TIENT VISIT, [facility], [address], [place], [place], [address], [place] tel:[phone] [facility] right ankle pain (chief complaint)anxie ty1 (chief complaint) Chronic pain syndromeOther insomnia 5 Gaston Dong. [address], [place], [place], [address] , [place]. tel:[phone] Referring Provider: Franky [address], [place], [place], [address]. tel:[phone] OFFICE/OUTPA TIENT VISIT, [facility], [address], [place], [place], [address], [place] tel:[phone] [facility] ankle pain1 (chief complaint)insom nia1 (chief complaint) Secondary osteoarthritis , right ankle and footOther insomnia 5 Gaston Dong. [address], [place], [place], [address] , [place]. [phone] Referring Provider: Iker Feldman [address], [place], [place], [address]. tel:[phone] OFFICE/OUTPA TIENT VISIT, [facility], [address], [place], [place], [address], [place] tel:[phone] [facility] ankle pain (chief complaint)insom alverto (chief complaint)CAD (chief complaint)gastr ic ulcer (chief complaint) Pain in right ankleOpioid dependence, uncomplicatedH ypertensive heart disease without heart failureChronic gastric ulcer without hemorrhage or perforationTob acco use 5 Gaston Dong. [address], [place], [place], [address] , [place]. tel:[phone] Referring Provider: Iker Feldman, [address], [place], [place], [address]. tel:[phone] OFFICE/OUTPA TIENT VISIT, [facility], [address], [place], [place], [address], [place] tel:[phone] [facility] HTN (chief complaint)gastr ic ulcer (chief complaint)insom alverto (chief complaint)hypot hyroidism (chief complaint) Insomnia, unspecifiedUns pecified hypothyroidism Unspecified essential hypertensionAc hydaburg gastric ulcer without mention of hemorrhage or perforation, with obstruction 5 Gaston Pickett [address], [place], [place], [address] , [place]. tel:[phone] Referring Provider: Franky [address], [place], [place], [address]. tel:[phone] OFFICE/OUTPA TIENT VISIT, [facility], [address] [place], [address], [place] tel:[phone] [facility] pain (chief complaint)anxie ty (chief complaint)hypot hyroidism (chief complaint)gERD (chief complaint) Insomnia, unspecifiedUns pecified hypothyroidism Unspecified essential hypertension 5 Gaston Pickett [address], [place], [place], [address] , [place]. tel:[phone] Referring Provider: Franky [address], [place], [place], [address]. tel:[phone] OFFICE/OUTPA TIENT VISIT, [facility], [address], [place], [place], [address], [place] tel:[phone] [facility] chronic apin (chief complaint)anxie ty (chief complaint) Other chronic pain 5 Gaston Pickett [address], [place], [place], [address] , [place]. tel:[phone] Referring Provider: Franky Dun[address], [place], [place], [address]. tel:[phone] OFFICE/OUTPA TIENT VISIT, [facility], [address], [place], [place], [address], [place] tel:[phone] [facility] chronic pain (chief complaint)anxie ty (chief complaint) Ankle pain Bebeto-0 5 Gaston Dong. [address], [place], [place], [address] , [place]. tel:[phone] Referring Provider: [address]y [address], [place], [place], [address]. tel:[phone] OFFICE/OUTPA TIENT VISIT, [facility], [address], [place], [place], [address], [place] tel:[phone] [facility] chronic pain (chief complaint)anxie ty (chief complaint)hypot hyroidism (chief complaint) Hypothyroidism Pain in joint involving lower legInsomnia, OtherScreening for malignant neoplasms of the prostate July-0 5 Gaston Dong. [address], [place], [place], [address] , [place]. tel:[phone] Referring Provider: [address], [place], [place], [address]. tel:[phone] OFFICE/OUTPA TIENT VISIT, [facility], [address], [place], [place], [address], [place] tel:[phone] [facility] chronic pain (chief complaint)anxie ty (chief complaint)gastr ic ulcer (chief complaint)CAD (chief complaint) Insomnia, OtherCAD, Sokaogon VesselAcute gastric ulcer without mention of hemorrhage or perforation, with obstructionOpi oid type dependence, unspecified use Apr-0 2 5 Gaston Dong. [address], [place], [place], [address] , [place]. tel:[phone] Referring Provider: [address]y [address], [place], [place], [address]. tel:[phone] OFFICE/OUTPA TIENT VISIT, [facility], [address], [place], [place], [address], [place] tel:[phone] [facility] chronic pain (chief complaint)insom alverto (chief complaint) Insomnia, OtherPain in joint involving lower legOpioid type dependence, unspecified useSedative, hypnotic or anxiolytic dependence, unspecified May-0 5 Gaston Dong. [address], [place], [place], [address] , [place]. tel:[phone] Referring Provider: Franky [address], [place], [place], [address]. tel:[phone] OFFICE/OUTPA TIENT VISIT, [facility], [address], [place], [place], [address], [place] tel:[phone] [facility] chornic pain (chief complaint)anxie ty (chief complaint)HLP (chief complaint)hypot hyroidism (chief complaint) Hypothyroidism Insomnia, OtherOther and unspecified hyperlipidemia Pain in joint involving lower leg Fe- 5 Gaston Dong. [address], [place], [place], [address] , [place]. tel:[phone] Referring Provider: Franky [address], [place], [place], [address]. tel:[phone] OFFICE/OUTPA TIENT VISIT, [facility], [address], [place], [place], [address], [place] tel:[phone] [facility] GERD (chief complaint)chron ic pain (chief complaint)anxie ty (chief complaint)HLP (chief complaint) Hypothyroidism CAD, Sokaogon VesselPain in joint involving lower legHypertensio n, Unspecified 5 Gaston Dong. [address], [place], [place], [address] , [place]. tel:[phone] Referring Provider: Iker Feldman, [address], [place], [place], [address]. tel:[phone] OFFICE/OUTPA TIENT VISIT, [facility], [address], [place], [place], [address], [place] [phone] [facility] chronic pain (chief complaint)Anxie ty (chief complaint)HLP (chief complaint) Other and unspecified hyperlipidemia Pain in joint involving lower leg 4 Gaston Dong. [address], [place], [place], [address] , [place]. [phone] Referring Provider: Iker Feldman, [address], [place], [place], [address]. tel:[phone] OFFICE/OUTPA TIENT VISIT, [facility], [facility] [address], [place], [place], [address], [place] tel:[phone] [facility] HLP (chief complaint)chron ic pain (chief complaint)anxie ty (chief complaint)HTN (chief complaint)CAD (chief complaint)GERD (chief complaint) Hypothyroidism CAD, Sokaogon VesselHyperten jayleen, UnspecifiedCHR ONIC PAIN NEC 4 Gaston Dong. [address], [place], [place], [address] , [place]. [phone] Referring Provider: Franky Dunham [address], [place], [place], [address]. tel:[phone] OFFICE/OUTPA TIENT VISIT, [facility], [address], [place], [place], [address], [place] tel:[phone] [facility] chronic pain (chief complaint)anxie ty (chief complaint) Hypothyroidism Pain in joint involving lower leg 4 Gaston Dong. [address], [place], [place], [address] , [place]. tel:[phone] Referring Provider: Iker Feldman [address], [place], [place], [address]. tel:[phone] OFFICE/OUTPA TIENT VISIT, [facility], [address], [place], [place], [address], [place] [phone] [facility] chronic pain (chief complaint)anxie ty (chief complaint)GERD (chief complaint)CAD (chief complaint) Pain in joint involving lower legCAD, Sokaogon VesselAcute gastric ulcer without mention of hemorrhage or perforation, with obstructionHyp othyroidism 4 Gaston Dong. [address], [place], [place], [address] , [place]. tel:[phone] Referring Provider: Franky [address], [place], [place], [address]. tel:[phone] OFFICE/OUTPA TIENT VISIT, [facility], [address], [place], [place], [address], [place] [phone] [facility] chornic pain (chief complaint)anxie ty (chief complaint)HTN (chief complaint) CHRONIC PAIN NECHypertensio n, Unspecified 4 Gaston Dong. [address], [place], [place], [address] , [place]. [phone] Referring Provider: Franky [address], [place], [place], [address]. tel:[phone] OFFICE/OUTPA TIENT VISIT, [facility], [address], [place], [place], [address], [place] [phone] [facility] GERD (chief complaint)chorn ic pain (chief complaint)anxie ty (chief complaint) GERDCHRONIC PAIN NEC 4 Gaston Dong. [address], [place], [place], [address] , [place]. [phone] Referring Provider: Franky Dun[address], [place], [place], [address]. tel:[phone] OFFICE/OUTPA TIENT VISIT, [facility], [address], [place], [place], [address], [place] tel:[phone] [facility] gastric ulcer (chief complaint)chorn ic pain (chief complaint)anxie ty (chief complaint)hypot hyroidism (chief complaint) Acute gastritis (without mention of hemorrhage)CHR ONIC PAIN NECPain in joint involving lower legHypothyroid ism 4 Gaston Dong. [address], [place], [place], [address] , [place]. [phone] Referring Provider: Franky [address], [place], [place], [address]. tel:[phone] OFFICE/OUTPA TIENT VISIT, [facility], [address], [place], [place], [address], [place] tel:[phone] [facility] chornic pain (chief complaint)anxie ty (chief complaint)gastr ic ulcer (chief complaint)CAD (chief complaint) Acute gastric ulcer without mention of hemorrhage or perforation, with obstructionPai n in joint involving lower legCAD, Sokaogon Vessel 4 Gaston Dong. [address], [place], [place], [address] , [place]. [phone] Referring Provider: Franky Dun[address], [place], [place], [address]. tel:[phone] OFFICE/OUTPA TIENT VISIT, [facility], [address], [place], [place], [address], [place] tel:[phone] [facility] HLP (chief complaint)CAD (chief complaint)hemat uria (chief complaint)chorn ic pain (chief complaint)anxie ty (chief complaint) Other and unspecified hyperlipidemia CAD, Sokaogon VesselHEMATURI A NOSPain in joint involving lower leg 4 Gaston Dong. [address], [place], [place], [address] , [place]. [phone] Referring Provider: Franky Dun[address], [place], [place], [address]. tel:[phone] OFFICE/OUTPA TIENT VISIT, [facility], [address], [place], [place], [address], [place] tel:[phone] [facility] hematuria (chief complaint)hypot hyroidism (chief complaint)chron ic painPt (chief complaint) HEMATURIA NOSCHRONIC PAIN NECHypothyroid ism Mar-0 4 Gaston Dong. [address], [place], [place], [address] , [place]. tel:[phone] Referring Provider: Iker Feldman, [address], [place], [place], [address]. tel:[phone] OFFICE/OUTPA TIENT VISIT, [facility], [address], [place], [place], [address], [place] tel:[phone] [facility] chronic pain (chief complaint)HLP (chief complaint)Anxie ty (chief complaint)hemtu valerio (chief complaint) CHRONIC PAIN NECHypothyroid ismOther and unspecified hyperlipidemia HEMATURIA NOS Feb- 4 Gaston oDng. [address], [place], [place], [address] , [place]. tel:[phone] Referring Provider: Franky [address], [place], [place], [address]. tel:[phone] OFFICE/OUTPA TIENT VISIT, [facility], [address], [place], [place], [address], [place] tel:[phone] [facility] CAD (chief complaint)chorn ic pain (chief complaint)anxie ty (chief complaint)Hypot hyroidism (chief complaint) Hypothyroidism CAD, Sokaogon VesselOther and unspecified hyperlipidemia CHRONIC PAIN NEC 4 Gaston Dong. [address], [place], [place], [address] , [place]. tel:[phone] Referring Provider: Farnky Dunham [address], [place], [place], [address]. tel:[phone] OFFICE/OUTPA TIENT VISIT, [facility], [address], [place], [place], [address], [place] tel:[phone] [facility] chronic pain (chief complaint)anxie ty (chief complaint) CHRONIC PAIN NEC Dec- 3 Gaston Dong. [address], [place], [place], [address] , [place]. [phone] Referring Provider: Franky Dun[address], [place], [place], [address]. tel:[phone] OFFICE/OUTPA TIENT VISIT, [facility], [address], [place], [place], [address], [place] [phone] [facility] chronic pain (chief complaint)anxie ty (chief complaint) CHRONIC PAIN NECHypothyroid ismOther and unspecified hyperlipidemia 3 Gaston Dong. [address], [place], [place], [address] , [place]. [phone] Referring Provider: Franky Dun[address], [place], [place], [address]. tel:[phone] OFFICE/OUTPA TIENT VISIT, [facility], [address], [place], [place], [address], [place] tel:[phone] [facility] hypothyroidism (chief complaint)Chron ic pain (chief complaint)anxie ty (chief complaint) Hypothyroidism Other and unspecified hyperlipidemia CAD, [place] Vessel Dec-0 3 Gaston Pickett [address], [place], [place], [address] , [place]. [phone] Referring Provider: Franky [address], [place], [place], [address]. tel:[phone] OFFICE/OUTPA TIENT VISIT, [facility], [address], [place], [place], [address], [place] tel:[phone] [facility] chronic pain (chief complaint)anxie ty (chief complaint) CHRONIC PAIN NECHypothyroid ismOther and unspecified hyperlipidemia Sep-0 3 Gaston Dong. [address], [place], [place], [address] , [place]. tel:[phone] Referring Provider: Iker Feldman, [address], [place], [place], [address]. tel:[phone] OFFICE/OUTPA TIENT VISIT, [facility], [address], [place], [place], [address], [place] tel:[phone] [facility] Hypothyroidism (chief complaint)CAD (chief complaint)chron ic pain (chief complaint) Hypothyroidism CAD, Sokaogon VesselCHRONIC PAIN NEC 3 Gaston Dong. [address], [place], [place], [address] , [place]. tel:[phone] Referring Provider: Franky [address], [place], [place], [address]. tel:[phone] OFFICE/OUTPA TIENT VISIT, [facility], [address], [place], [place], [address], [place] tel:[phone] [facility] CAD (chief complaint)chron ic pain (chief complaint)anxie ty (chief complaint) CAD, Sokaogon VesselCHRONIC PAIN NECInsomnia, Other 3 Gatson Dong. [address], [place], [place], [address] , [place]. tel:[phone] Referring Provider: Franky Dunham [address], [place], [place], [address]. tel:[phone] OFFICE/OUTPA TIENT VISIT, [facility], [address], [place], [place], [address], [place] tel:[phone] [facility] CAD (chief complaint)Chron ic pain (chief complaint)anxie ty (chief complaint) CAD, Sokaogon VesselCHRONIC PAIN NECHypothyroid ism 3 Gaston Dong. [address], [place], [place], [address] , [place]. tel:[phone] Referring Provider: Franky Dunham [address], [place], [place], [address]. tel:[phone] OFFICE/OUTPA TIENT VISIT, [facility], [address], [place], [place], [address], [place] tel:[phone] [facility] chronic pain (chief complaint)anxie ty (chief complaint)Hypot hyroidism (chief complaint) Hypothyroidism CHRONIC PAIN NEC May-0 2-201 3 Gaston Dong. [address], [place], [id number] , [place]. tel:[phone] Referring Provider: Iker Feldman, [address], [place], [place], [address]. tel:[phone] OFFICE/OUTPA TIENT VISIT, [facility], [address], [place], [place], [address], [place] tel:[phone] [facility] chornic pain (chief complaint)Anxie ty. (chief complaint)hypot hyroidism (chief complaint) Hypothyroidism CHRONIC PAIN NECRESTLESS LEGS SYNDROME Apr-0 5201 3 Gaston Dong. [address], [place], [place], [address] , [place]. tel:[phone] Referring Provider: Franky Dunham [address], [place], [place], [address]. tel:[phone] OFFICE/OUTPA TIENT VISIT, [facility], [address], [place], [place], [address], [place] tel:[phone] [facility] chronic pain (chief complaint)viral (chief complaint)Anxie ty (chief complaint) Viral Infection, UnspecifiedCHR ONIC PAIN NECHypothyroid ism Mar-0 4-201 3 Gaston Dong. [address], [place], [place], [address] , [place]. tel:[phone] Referring Provider: Franky [address], [place], [place], [address]. tel:[phone] OFFICE/OUTPA TIENT VISIT, [facility], [address], [place], [place], [address], [place] tel:[phone] [facility] chronic pain (chief complaint)Anxie ty (chief complaint)hypot hyroidism (chief complaint)ED (chief complaint) Hypothyroidism CHRONIC PAIN NECErectile Dysfunction Fe 3 Gaston Pickett [address], [place], [place], [address] , [place]. tel:[phone] Referring Provider: Franky Dun[address], [place], [place], [address]. tel:[phone] OFFICE/OUTPA TIENT VISIT, [facility], [address], [place], [place], [address], [place] tel:[phone] [facility] hypothyroidism (chief complaint)chron ic pain (chief complaint) CHRONIC PAIN NECHypothyroid ismRESTLESS LEGS SYNDROME 3 Gaston Pcikett [address], [place], [place], [address] , [place]. [phone] Referring Provider: Franky [address], [place], [place], [address]. tel:[phone] OFFICE/OUTPA TIENT VISIT, [facility], [address], [place], [place], [address], [place] tel:[phone] [facility] chronic pain (chief complaint)restl ess leg syndrome (chief complaint)anxie ty (chief complaint) CHRONIC PAIN NECRESTLESS LEGS SYNDROME 2 Gaston Pickett [address], [place], [place], [address] , [place]. [phone] Referring Provider: Franky [address], [place], [place], [address]. tel:[phone] OFFICE/OUTPA TIENT VISIT, [facility], [address], [place], [place], [address], [place] tel:[phone] [facility] chronic pain (chief complaint)restl ess leg (chief complaint) RESTLESS LEGS SYNDROMECHRONI C PAIN NEC 2 Gaston Pickett [address], [place], [place], [address] , . tel:[phone] Referring Provider: Iker Feldman, [address], [place], [place], [address]. tel:[phone] OFFICE/OUTPA TIENT VISIT, [facility], [address], [place], [place], [address], [place] tel:[phone] [facility] chornic pain (chief complaint)anxie ty (chief complaint)insom alverto (chief complaint) Insomnia, OtherCHRONIC PAIN NECRESTLESS LEGS SYNDROME 0-201 2 Gaston Dong. [address], [place], [place], [address] , [place]. tel:[phone] Referring Provider: Iker Feldman, [address], [place], [place], [address]. tel:[phone] Family History Family Member Type Diagnosis Age At Onset Father Problem (finding) Cancer - colon CA Mother Problem (finding) Alive and well Brother Problem (finding) Coronary artery disease Brother Problem (finding) Other Payers Payer name Insurance type Covered libertarian ID Authoriza ticlaudette(s) [facility] CI [id number] Social History Type Description Quantity Date Captured [...] on due Goal Influenza vaccine. Due on Wa due Goal FOBT. Due on due Goal [...] Influenza vaccine. Due on Oc due Goal Tobacco cessation counseling completed Goal [...] 19 due Goal Influenza vaccine. Due on Au due Goal Depression screening. Due on due [...] ordered Referral Referred To: Suzanne Beckham [address] [place], [place] [id number] Ordered: Referrals: Allopathic & Osteopathic Physicians : Urology. Suzanne Beckham. 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 Pt denies any hemoptysis, worsening [...] xanax qhs PRN COPD Pt has COPD .Pt still smoking Pt uses incruse daily and he uses albuterol on average 2-3 per week Pt enmanuel any hemoptysis, worsening sob or cough thyroid Pt has hypothyro idism. pt needs synthroid refilled. Pt denies any dysphagia or neck pain insomnia Pt has chronic a nxiety [...] any worsening pain. Pt denies any neuropathy CAD Pt has CAD. Pt t akes [...] qhs PRN Barrett1 Pt has cervantes e sophagus. Pt takes [...] Pt uses incruse Pt needs albuterol refilled insomnia1 Pt has chronic a nxiety and insomnia. Pt takes xanax qhs PRn and doing ok, Pt denies any depression or any suicidal thought. Pt denies any crying spells Pt doing ok with xanax qhs PRN vitamin D Pt has low D. Pt takes vitamin d weekly and his D is ok Pt needs it refilled physical Pt needs annual physical. Pt [...] with xanax qhs PRN GERD1 Pt has cervatnes. Pt had EGD 2019 and colonoscopy 2015. [...] has bladder C A Pt supposes to [facility] urology but his cezar was again canceled. Pt did call urology at [facility] who he used to see [...] A. Pt was referred to urology of [facility] and he tried to call for [...] ok with xanax qhs PRN tobacco Pt has 54 pack y ear tobacco [...] Pt doing ok with xanax qhs PRN helen Pt has helen cardona. Pt supposes to [...] vitamin D 50,000 weekly. Pt needs refill insomnia1 Pt has chronic a nxiety and [...] doing ok with xanax qhs PRN COPD P has COPD. Pt t akes incruse and albuterol Prn. Pt denies any hemoptysis. Pt denies any worsening sob. Pt needs incruse refilled . HLP Pt has HLP .Pt t akes lipitor and his lipid profile is ok. 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 [...] norco PRn for pain and doing ok HTN Pt has HTN with CAD Pt [...] omeprazole. Pt denies any GERD with omeprazole insomnia1 pt has insomnia. Pt takes xanax qhs PRN Pt denies any insomnia Pt doing ok chronic pain1 Pt has chronic r ight ankle pain. pt denies any worsening pain pt has osteoarthritis pt failed NSAID. Pt takes norco PRN for pain and doing ok chronic pain1 Pt disla chronic [...] blood clot from urination which also resolved. COPD1 Pt has COPD. Pt still smoking Pt denies any hemoptysis, worsening sob or coughing pt uses ventolin 1-2 per week. Pt also still smoking Pt needs LDCT. insomnia1 Pt has insomnia. Pt takes xanax [...] and he is seeing Dr. Junior in [place] and he will have the mass removed [...] Evaristo braun who is a urologist in [facility] who did the cysto and he told me the renal lesion is almost 100% sure a benign cyst. He did take the Ct to his radiologist over [facility] However, he is not in [...] 1 Pt just seen uro logy in [facility]. He will do cystoscopy. pt has [...] ultram and codeine Cervantes Pt has cervantes saloem mcgeeag. Pt takes omeprzole. pt deneis any [...] and lipitor. Pt denies any chest pain CAD Pt has CAD with stent. Pt takes lipitor, coreg and lisinopril Pt sees cardiology. Pt denies any chest pain tobacco1 Pt has 40 pack y ear tobacco. Pt tried to schedule for CT of chest but [facility] will not do it. Pt denies any [...] SOB Pt mainly smokes cigar now chronic pain Pt has chronic r ight ankle pain Pt has history of fracture. pt denies any worsening pain insomnia1 Pt has chornic i nsomnia and anxiety .Pt takes xanax qhs PRN and doing ok Pt denies any depression or any suicidal thought chronic pain1 Pt has chornic r ight [...] Pt takes omerpzole. Pt denies any GERD hypothyroidism Pt takes synthro id. Pt denies [...] denies any depression or any suicidal thought. pain Pt has chronic r ight ankle [...] ic pain syndrome Quit smoking Related to [place] tt's esophagus without dysplasia Prescribed Activity and [...] Surveillance and Counseling Quit smoking Related to [place] tt's esophagus without dysplasia Quit smoking Related [...] Surveillance and Counseling exercise Related to CAD, [place] Vessel Assessments Type Assessment Date assessment Chronic pain syndrome assessment Other insomnia assessment Anemia assessment Acute cystitis with hematuria Au Mental Status Date Cognitive Assessment Orientation - [place] ed to time, place, person, situation.
[2024-10-20 14:36] VITALS: BMI 23.8
--- NOTE | 2024-10-20 14:52 | PC.NURSE ---
Report to the Outpatient Waiting Room, entrance under the green pavilion located off [facility], at time _1000am on date _10/30/24 . Planned Procedure Time: _1200pm .? Time changes happen often and if your time is changed the preop area will call you the afternoon before. - You and your visitor will be asked to self-screen and do not enter if you have any COVID symptoms. Please call surgeon if you need to reschedule. - A mask is optional within the hospital at this time. Patients may have clear liquids (water, carbonated beverages, clear teas, apple juice) until 3 hours prior to surgery with a maximum of 20 ounces. - No food from midnight until time of surgery and no smoking, or chewing tobacco (or any form of nicotine). No chewing gum, candy or mints. (0900am) Take only the following medications with a SIP of water on the morning of surgery: ____Coreg, Levothyroxine, Ellipta Inhaler, Xanax as needed, Hydrocodone if needed. DO NOT STOP ANY OF YOUR OTHER PRESCRIPTION MEDICATIONS PRIOR TO SURGERY EXCEPT THE FOLLOWING Hold all vitamins and supplements for 7 days per Tawana, except for Calcium per stated. Medications to discontinue per physician Pt to cont to HOLD ASA and PLAVIX throughout treatment for now per DR Gilliam/Dr Gresham Date to take last dose 09/30/24 Please no make-up, nail macedonian, hairspray, perfume, deodorant, or body powder the day of surgery.? No jewelry (including any body piercings) or valuables the day of surgery, leave them at home.? Please take a shower or bath the night before, or the morning of, surgery with an antibacterial soap.? Wear comfortable, loose fitting clothing.? - Jewelry must be removed prior to entering the operating room.? Rings and piercings that are not removed may be cut off. - The hospital will not accept responsibility for valuables.? - Please leave all valuables, including medications, at home the day of surgery. If you are going home after surgery, a licensed non cdl driver must drive you home.? - NO public transportation without another adult if you receive anesthesia. - We recommend that an adult stay with you for 24 hours following discharge. - We also recommend that you do not drive, make important decision, drink alcoholic beverages, or take any drugs that were not prescribed by your health care provider for at least 24 hours after your discharge time. Follow any additional instructions given to you from your surgeon. Telephone instructions given to ___Patty- and asked if any additional questions and then verbalized understanding. Patient advised to call surgeon office or pre surgery nurse liaison [phone] if any additional questions.
[2024-10-30] VITALS (7 sets, daily range): BP systolic 98–149; BP diastolic 58–79; PULSE 50–72; RESP 12–23; TEMP 36.2–36.4; O2SAT 96–100
--- NOTE | ~2024-10-30 | XR_ITS ---
XR retrograde pyelogram RT Indication: Right retrograde pyelogram TECHNIQUE: Fluoroscopy used during right retrograde pyelogram performed by [Vlad Gilliam MD] on 10/30/2024. Fluoroscopy time is 15 seconds with 36 fluoroscopic images captured. FINDINGS: Correlate with procedure note. IMPRESSION: Fluoroscopy used during right retrograde pyelogram. Reviewed, dictated and finalized at location O.
--- OUTSIDE RECORDS SUMMARY | 2024-10-30 01:08 | XMS_ITS | Encounter Summary ---
Author Organization [facility] Address [address] [place] [address] Phone Care Team Providers Care Ship Wirer Name Role Phone Iker Feldman Primary Care Provider [phone] Juan Gresham MD Unavailable Hemant Delgado MD Unavailable Encounter Details Date Type Department Care Team (Late st Contact Info) Description 05/16/2021 Transcribe Orders [facility] Preop/Pacu II [address] [place] [address] Hemant Delgado MD #[address] [address] Pre-op testing (Primary Dx) Social History Tobacco [...] COVID-19? No / Unsure 05/17/2021 11:10 AM MOSS BLEACHER documented as of this encounter Plan of Treatment Not on file documented as of this encounter Results * SARS-COV-2 BY MOLECULAR (05/17/2021 11:13 AM MOSS BLEACHER) SARSCOV2 NOT DETECTED (Referen ce Range for this test is Not Detected ) [facility] THERMOFISHER FAST DX 05/18/2021 11:52 AM MOSS BLEACHER [facility] Comment:This test was perfor med by a RT-PCR method. Other NASOPHARYNGEAL STRUCTURE / Unknown Non-Phlebotomy Collection / Unknown 05/17/2021 11:13 AM MOSS BLEACHER 05/17/2021 11:57 AM MOSS BLEACHER Narrative [facility] - 05/18/2021 11:52 AM MOSS BLEACHER Authorized Fact Sheets about this test for providers and patients are available at: https://www.fda.gov/medical-devices/jaomzxdhm-ouuwjmxops-ssqfgez-devices/emergen cy-us e-authorizations us Hemant Delgado MD MICROBIOLOGY - GENERAL ORDERABLE S Final Result [facility] [address] [place] [address], documented in this encounter Visit Diagnoses Diagnosis Pre-op testing- Primary Preoperative examination, unspecified documented in this encounter Care Teams Ship Wirer Relationship Specialty Start Date End Date Iker Feldman [address] [place] [address] PCP - General Family Medicine 12/05/17 Juan Gresham MD [address] [facility] [address] [place] [address] Cardiovascular Disease - Cardiology 12/05/17 Hemant Delgado MD #2 [facility], [address] [address] Consulting Physician Urology 01/19/22 documented as of this encounter
--- OUTSIDE RECORDS SUMMARY | 2024-10-30 01:08 | XMS_ITS | Encounter Summary ---
Author Organization [facility] Address [address] [place] [address] Phone Care Team Providers Care Security Assurance Analyst Name Role Phone Iker Feldman Primary Care Provider [phone] Juan Gresham MD Unavailable Hemant Delgado MD Unavailable Encounter Details Date Type Department Care Team (Late st Contact Info) Description 04/26/2021 Transcribe Orders [facility] Preop/Pacu II [address] [place] [address] Hemant Delgado MD #[address] [address] Pre-op testing (Primary Dx) Social History Tobacco [...] COVID-19? 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 documented as of this encounter Plan of Treatment Not on file documented as of this encounter Visit Diagnoses Diagnosis Pre-op testing- Primary Preoperative examination, unspecified documented in this encounter Care Teams Security Assurance Analyst Relationship Specialty Start Date End Date Iker Feldman [address] [place] [address] PCP - General Family Medicine 12/05/17 Juan Gresham MD [address] [facility] [address] [place] [address] Cardiovascular Disease - Cardiology 12/05/17 Hemant Delgado MD #2 [facility] [address] [place] [address] Consulting Physician Urology 01/19/22 documented as of this encounter
--- OUTSIDE RECORDS SUMMARY | 2024-10-30 01:08 | XMS_ITS | Clinical Summary ---
Author Organization [facility] [address] Address [address] [place] [address] Care Team Providers Care Public Relations Professional Name Role Phone Iker Feldman MD Primary Care Provider [phone] Iker Feldman MD Unavailable [phone] Allergies Active Allergy Reactions Criticality Noted Date [...] 1 tablet (88 mcg total) by mouth banquet chef before breakfast Active albuterol HFA (PROVENTIL HFA,VENTOLIN [...] needed for pain Active cholecalciferol (VITAMIN D-3) 70281 unit tablet Take 1 tablet (50,000 Units total) by mouth once a week Active carvediloL (COREG) 3.125 mg tabletIndication s:Coronary artery disease involving [place] coronary artery of [place] heart without angina pectoris Take 1 tablet (3.125 mg total) by mouth 2 (two) times a day with meals 180 tablet 3 11/01/19 24 Active nitroglycerin (NITROSTAT) 0.4 mg SL tabletIndication s:Coronary artery disease involving [place] coronary artery of [place] heart without angina pectoris Place 1 tablet (0.4 mg total) under the tongue every 5 (five) minutes as needed for chest pain Up to 3 doses 25 tablet 11/01/19 24 Active lisinopriL (PRINIVIL,ZESTRI L) 10 mg tabletIndication s:Coronary artery disease involving [place] coronary artery of [place] heart without angina pectoris TAKE ONE TABLET BY MOUTH EVERY DAY 90 tablet 10/14/19 25 Active clopidogreL (PLAVIX) 75 mg tabletIndication s:Coronary artery disease involving [place] coronary artery of [place] heart without angina pectoris TAKE ONE TABLET BY MOUTH DAILY 90 tablet 10/14/19 25 Active atorvastatin (LIPITOR) 40 mg tabletIndication s:Coronary artery disease involving [place] coronary artery of [place] heart without angina pectoris TAKE ONE TABLET BY MOUTH DAILY 90 tablet 10/14/19 25 Active clopidogreL (PLAVIX) 75 mg tabletIndication s:Coronary artery disease involving [place] coronary artery of [place] heart without angina pectoris Take 1 tablet (75 mg total) by mouth daily 90 tablet 3 11/01/19 24 025 Discontinued atorvastatin (LIPITOR) 40 mg tabletIndication s:Coronary artery disease involving [place] coronary artery of [place] heart without angina pectoris Take 1 tablet (40 mg total) by mouth daily 90 tablet 3 11/01/19 24 025 Discontinued lisinopriL (PRINIVIL,ZESTRI L) 10 mg tabletIndication s:Coronary artery disease involving [place] coronary artery of [place] heart without angina pectoris TAKE ONE TABLET BY MOUTH DAILY 90 tablet 2 02/18/20 24 025 Discontinued Active Problems Problem Noted Date Diagnosed Date Atherosclerosis of coronary artery 12/12/2013 Overview (06/15/2016): Coronary atherosclerosis Encounters Date Type Department Care Team Description 08/19/2024 Telephone [facility] Cardiology [address] [place] [address] Perri Lux NP preop form [...] on file Legal 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
--- OUTSIDE RECORDS SUMMARY | 2024-10-30 01:08 | XMS_ITS | Clinical Summary ---
Author Organization [facility] Address [address] [place] [address] Phone Care Team Providers Care Patrol Driver Name Role Phone Iker Feldman Primary Care Provider [phone] Juan Gresham MD Unavailable Hemant Delgado MD [...] minutes as needed. Active ergocalciferol (VITAMIN D) 43813 UNIT Capsule Take 1 Capsule by mouth. [...] Comments Blood Pressure 138/74 01/19/2022 8:53 AM CUSTOMER FACILITIES SUPERVISOR Pulse 54 01/19/2022 8:53 AM CUSTOMER FACILITIES SUPERVISOR Temperature 36.4 C (97.6 F) 01/19/2022 8:53 AM CUSTOMER FACILITIES SUPERVISOR Respiratory Rate 18 01/19/2022 8:53 AM CUSTOMER FACILITIES SUPERVISOR Oxygen Saturation 98% 01/19/2022 8:53 AM CUSTOMER FACILITIES SUPERVISOR Inhaled Oxygen Concentration - - Weight 72.2 kg (159 lb 3.2 oz) 01/19/2022 8:53 A M CUSTOMER FACILITIES SUPERVISOR Height 174 cm (5' 8.5) 09/16/2021 [...] this topic Medical Devices Implanted Type Area Associate Professor Of Musicology Device Identifier Shelf Expiration Date Model / Serial / Lot Stent Ureteral 6fr 2.1fr 26cm 2 Pigtail Curve 2 Durometer Taper Tip Loprfl Graduated Polaris Ultra - [id number] Implanted:Qty : 1 on 03/19/2018 by Viviana Junior MD at [facility] IMPLANT Right: Ureter [employer] 10/03/2020 [id number] 0 / [id number] 0 / [id number] Stent Ureteral 6fr 2.1fr 24cm 2 Pigtail Curve 2 Durometer Taper Tip Loprfl Graduated Polaris Ultra - [id number] Implanted:Qty : 1 on 04/29/2021 by Hemant Delgado MD at [facility] IMPLANT Left: Ureter [employer] 01/12/2024 [id number] 0 / [id number] 0 / [id number] Stent Ureteral 6fr 2.1fr 24cm 2 Pigtail Curve 2 Durometer Taper Tip Loprfl Graduated [employer]aris Ultra - [id number] Implanted:Qty : 1 on 05/20/2021 by Hemant Delgado MD at [facility] IMPLANT Left: Ureter [employer] 02/04/2024 [id number] 0 / [id number] 0 / [id number] Stent Ureteral 6fr 2.1fr 24cm 2 Pigtail Curve 2 Durometer Taper Tip Loprfl Graduated Polaris Ultra - [id number] Implanted:Qty : 1 on 05/20/2021 by Hemant Delgado MD at [facility] IMPLANT Right: Ureter [employer] 02/04/2024 [id number] 0 / [id number] 0 / [id number] Stent Ureteral 6fr 2.1fr 28cm 2 Pigtail Curve 2 Durometer Taper Tip Loprfl Graduated Polaris Ultra - [id number] Implanted:Qty : 1 on 09/09/2021 by Hemant Delgado MD at [facility] IMPLANT Right: Ureter [employer] 02/08/2024 [id number] 0 / [id number] 0 / [id number] Explanted Type Area Associate Professor Of Musicology Device Identifier Shelf Expiration Date Model / Serial / Lot Stent Ureteral 6fr 2.1fr 24cm 2 Pigtail Curve 2 Durometer Taper Tip Loprfl Graduated [employer] Ultra - [id number] Implanted:Qty : 1 on 04/29/2021 by Hem[facility]gado MD at [facility] Explanted:Qty : 1 on 05/20/2021 by Hemant Delgado MD at [facility] IMPLANT Right: Ureter [employer] 01/12/2024 [id number] 0 / [id number] 0 / [id number] Procedures Procedure Name Priority Date/Time Associated Diagnosis [...] Documents on File Type Date Recorded Patient Records Section Supervisor Expl anation Other Advance Directive 09/21/2021 [...] Medical Clearance fo r surgery Care Teams Patrol Driver Relationship Specialty Start Date End Date Feldman Iker [address] [place] [address] PCP - General Family Medicine 12/05/17 Juan Gresham MD [address] [facility] [address] [place] [address] Cardiovascular Disease - Cardiology 12/05/17 Hemant Delgado MD [address]2 [facility] [address] [place] [address] Consulting Physician Urology 01/19/22
--- OUTSIDE RECORDS SUMMARY | 2024-10-30 01:08 | XMS_ITS | Encounter Summary ---
Author Organization [facility] Address [address] [address] Phone Care Team Providers Care Director Medical Name Role Phone Iker Feldman Primary Care Provider [phone] Juan Gresham MD Unavailable Hemant Delgado MD Unavailable Encounter Details Date Type Department Care Team (Late st Contact Info) Description 03/29/2021 Transcribe Orders [facility] Preop/Pacu II [address] [place] [address] Hemant Delgado MD #[address] [address] Pre-op testing (Primary Dx) Social History Tobacco [...] COVID-19? No / Unsure 03/29/2021 2:12 PM POLITICAL DIRECTOR documented as of this encounter Plan of Treatment Not on file documented as of this encounter Results * SARS-COV-2 BY MOLECULAR (04/25/2021 7:54 AM POLITICAL DIRECTOR) SARSCOV2 NOT DETECTED (Referen ce Range for this test is Not Detected ) [facility] THERMOFISHER FAST DX 04/25/2021 6:50 PM POLITICAL DIRECTOR [facility] Comment:This test was perfor med by a RT-PCR method. Other NASOPHARYNGEAL STRUCTURE / Unknown Non-Phlebotomy Collection / Unknown 04/25/2021 7:54 AM POLITICAL DIRECTOR 04/25/2021 8:44 AM POLITICAL DIRECTOR Narrative [facility] - 04/25/2021 6:50 PM POLITICAL DIRECTOR Authorized Fact Sheets about this test for providers and patients are available at: https://www.fda.gov/medical-devices/updnyzaym-lnettmjdrn-xamvifd-devices/emergen cy-us e-authorizations us Hemant Delgado MD MICROBIOLOGY - GENERAL ORDERABLE S Final Result [facility] [address] [place] [address], documented in this encounter Visit Diagnoses Diagnosis Pre-op testing- Primary Preoperative examination, unspecified documented in this encounter Care Teams Director Medical Relationship Specialty Start Date End Date Iker Feldman [address] [place] [address] PCP - General Family Medicine 12/05/17 Juan Gresham MD [address] [facility] [place] [address] [place] [address] Cardiovascular Disease - Cardiology 12/05/17 Hemant Delgado MD #2 [facility], [address] [address] Consulting Physician Urology 01/19/22 documented as of this encounter
--- OUTSIDE RECORDS SUMMARY | 2024-10-30 01:08 | XMS_ITS | Encounter Summary ---
Author Organization [facility] Address [address] [place] [address] Phone Care Team Providers Care Electric Organ Checker Name Role Phone Iker Feldman Primary Care Provider [phone] Juan Gresham MD Unavailable Hemant Delgado MD Unavailable Encounter Details Date Type Department Care Team (Late st Contact Info) Description 03/29/2021 [facility] [address] [place] [id number] Hemant Delgado MD #[address] [address] Social History Tobacco Use Types Packs/Day Years [...] COVID-19? No / Unsure 03/29/2021 2:12 PM CASHIER GENERAL documented as of this encounter Plan of Treatment Not on file documented as of this encounter Visit Diagnoses Not on filedocumented in this encounter Care Teams Electric Organ Checker Relationship Specialty Start Date End Date Iker Feldman [address] [place] [address] PCP - General Family Medicine 12/05/17 Juan Gresham MD [address] [facility] [address] [place] [address] Cardiovascular Disease - Cardiology 12/05/17 Hemant Delgado MD #2 [facility] [address] [place] [address] Consulting Physician Urology 01/19/22 documented as of this encounter
--- NOTE | 2024-10-30 06:16 | WPDHPUPDATE1 ---
History and Physical Update Update Date/Time: 10/30/24 06:16 History and Physical has been reviewed, including an updated exam of the patient. There are NO changes in the patient's condition. Risks, benefits, and alternatives have been discussed and questions answered. Patient agrees to proceed with procedure.
[2024-10-30] MEDS: LACTATED RINGERS 1,000 ML 30 ML IV CONT (10:45)
--- NOTE | 2024-10-30 10:47 | WPDANESEPPF ---
Anes - Initial Pre Proc Eval Procedure: Operation Date: 10/30/24 12:00 Proposed Procedures p Cystoscopy, Right Retrograde Pyelogram, Right Ureteroscopy, Jelmyto Instillation - Vlad Gilliam MD Date/Time: 10/30/24 10:47 Surgeon: Vlad Gilliam MD Pre Op Diagnosis: bladder CA Patient Data Age: 69 Gender: M Height: 1.74 m Weight: 72 kg Allergies Allergy/AdvReac Type Severity Reaction Status Date / Time propoxyphene Allergy Intermediate Hives, Verified 10/23/24 10:36 N/V, Confusion Home Medications ?Medication ?Instructions ?Recorded ?Confirmed ?Type alprazolam 1 mg tablet (Xanax) 1 mg PO DAILY PRN Anxiety 09/14/20 10/20/24 History atorvastatin 40 mg tablet (Lipitor) 40 mg PO DAILY 09/14/20 10/30/24 History calcium phosphate,dibasic 77 50,000 tablet PO [id number] 09/14/20 10/20/24 History mg-vitamin D3 400 unit tablet carvedilol 3.125 mg tablet (Coreg) 3.125 mg PO BID 09/14/20 10/30/24 History clopidogrel 75 mg tablet (Plavix) 75 mg PO DAILY 09/14/20 10/20/24 History hydrocodone 10 mg-acetaminophen 1 tablet PO Q6-8H PRN Pain 09/14/20 10/20/24 History 325 mg tablet levothyroxine 88 mcg tablet 88 mcg PO DAILY 09/14/20 10/30/24 History (Synthroid) lisinopril 10 mg tablet (Zestril) 10 mg PO DAILY 09/14/20 10/20/24 History albuterol sulfate 90 mcg/actuation 2 puff inhalation QID PRN 05/03/21 10/20/24 History aerosol inhaler Shortness Of Breath nitroglycerin 0.4 mg sublingual 0.4 mg sublingual Q5-15M PRN Chest 05/03/21 10/20/24 History tablet Pain umeclidinium 62.5 mcg/actuation 1 inh inhalation DAILY 05/03/21 10/20/24 History blister powder for inhalation (Incruse Ellipta) aspirin 81 mg chewable tablet 81 mg PO DAILY 07/28/22 10/20/24 History pantoprazole 40 mg tablet,delayed 20 mg (1/2 x 40 mg) PO QAM #90 tabs 10/30/24 Rx release Patient hx anesthesia problems: none Family hx anesthesia problems: none Results Review: All pre-operative results and documents have been reviewed as part of the pre-operative evaluation. [facility] Past Medical History Medical History Non-cardiac chest pain Gastroesophageal reflux disease Chronic obstructive pulmonary disease ST elevation myocardial infarction (STEMI) (07/2012) Restless leg syndrome Hepatitis C virus infection resolved after antiviral drug therapy Bladder cancer Continuous tobacco abuse Coronary artery disease Hypothyroidism Essential hypertension Hyperlipidemia Anxiety and depression Surgical History Surgical History History of cystoscopy Abnormal cystoscopy x8 Right eye trauma History of cardiac catheterization (08/01/12) Aspiration thrombectomy, PTCA, stent x2 in overlapping fashion in major diagonal branch. Per Dr. Gresham. Family History Family History Mother Acute myocardial infarction Leukemia Father Colon cancer Sibling Heart problem Social History Social History Social History: Surrogate medical decision maker: Jodee Álvarez, spouse. Code status: Full code. Smoking packs per day: 1 Smoking cigarettes per day: 20.0 Years smoked: 25 Smoking pack-years: 25.00 Smoking status: Former smoker Tobacco type: cigarettes, pipe and cigars Second hand tobacco smoke exposure: Yes Smoking end date: 03/12/94 Additional smoking assessment comments: Pt still smokes pipe and cigars but no inhale Alcohol intake: current Drinks per week: 2 Alcohol use details: BEER Substance use: current Substance use type: marijuana Other substance usage details: smokes 3x weekly Last use: 12/25/22 Do You Feel Safe in your Home?: Yes Lack of Transportation: No Lack of Food: Never True Current Housing: I Have Housing Concerned About Future Housing: No Difficulty Paying Gas/Electric Bills: No Difficulty Paying for Meds: No Currently Unemployed: No Education: High School Diploma/GED Difficulty w/ Childcare or Family Care: No Living arrangements: with family Additional living arrangements comments: Spiritual care concerns: No Anes - Eval Final PreProcedure Day of Procedure 10/30/24 10:47 Patient weight: obese Heart: regular rate and rhythm Lungs: clear to auscultation Airway: Mallampati scale class III Neurological: alert and oriented Last oral intake: >/= 8 hours ASA classification: III Emergent: no Anesthetic plan: proceed Anesthesia type and monitoring: general LMA and standard monitoring Results Review: All pre-operative results and documents have been reviewed as part of the pre-operative evaluation. Informed Consent: The patient's anesthetic plan and its attendant risks and benefits were discussed with the patient/family/POA. Questions were solicited and answers provided to the satisfaction of the patient/family/POA.
[2024-10-30] MEDS: SODIUM BICARBONATE TAB 650 MG TABLET 1300 MG PO (11:04)
[2024-10-30] MEDS: ceFAZolin 2 GM in SODIUM CHLORIDE 0.9% IV 50 ML 100 ML IVPB (12:00)
[2024-10-30] MEDS: MITOMYCIN 28 MG URETHRAL (12:16)
--- NOTE | 2024-10-30 12:27 | W.PM.PROC2 ---
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 A 19F rigid cystoscope was placed in the bladder. The bladder was carefully inspected. Mucosa is normal without hyperemia. There was no intravesical neoplasm. A 0.035 in glidewire was advanced in the right renal pelvis and a ureteral catheter was advanced over the guidewire. The retrograde pyelogram was obtained to ensure appropriate positioning of the ureteral catheter in the collecting system. Prior retrograde pyelography had determined a renal pelvic volume of 7cc. We opted to use that prior volume determination for today's instillation. After appropriate reconstitution of the Jelmyto in ice retrograde injection was undertaken through the same ureteral catheter positioned at the UPJ. A total of 7mL (28 mg) of Jelmyto was instilled in the renal pelvis without incident. The volume of Jelmyto wasted was 13 mL (52 mg). the ureteral catheter was allowed to stand for 60 seconds and then removed with ease. Because the patient has no history of ureteral stricture I opted not to place a ureteral stent. Patient tolerated the procedure well was taken to the recovery room in good condition. Pathology None sent Complications No immediate complications Condition Stable
== END 2024-10-30 13:40 | disposition home or self-care (01) ==
PROVIDERS: PCP Emergency Medicine; Visit Provider Urology
PROC: (CPT 52352; principal; 2024-10-30 12:00)
DX: C65.1 Malignant neoplasm of right renal pelvis (principal); E78.5 Hyperlipidemia, unspecified; E03.9 Hypothyroidism, unspecified; I10 Essential (primary) hypertension; K21.9 Gastro-esophageal reflux disease without esophagitis; J44.9 Chronic obstructive pulmonary disease, unspecified; I25.2 Old myocardial infarction; G25.81 Restless legs syndrome; I25.10 Atherosclerotic heart disease of native coronary artery without angina pectoris; F41.8 Other specified anxiety disorders; F17.290 Nicotine dependence, other tobacco product, uncomplicated; F12.90 Cannabis use, unspecified, uncomplicated; E66.9 Obesity, unspecified; Z68.23 Body mass index [BMI] 23.0-23.9, adult; Z79.02 Long term (current) use of antithrombotics/antiplatelets; Z79.891 Long term (current) use of opiate analgesic; Z79.51 Long term (current) use of inhaled steroids; Z79.82 Long term (current) use of aspirin; Z98.61 Coronary angioplasty status; Z80.6 Family history of leukemia; Z80.0 Family history of malignant neoplasm of digestive organs; Z82.49 Family history of ischemic heart disease and other diseases of the circulatory system
CPT/HCPCS: C9789; 74420; J0690; A9270; C1758; C1769; J2405; J2704; J7120; J9281; Q9966

== ENCOUNTER 2024-11-06 01:46 | Day surgery (SDC) | payer MEDICARE, MEDICAID, SELFPAY ==
--- OUTSIDE RECORDS SUMMARY | 2024-10-14 09:14 | XMS_ITS | Continuity of Care Document ---
Author Organization [facility] Address [address] [place] [address] [place] [address] Phone Care Team Providers Care Software Publisher Name Role Phone Iker Feldman MD Unavailable Unavailable Allergies, Adverse Reactions, Alerts Substance Reaction Status Criticality PROPOXYPHENE NAPSYLATE Active No In formation acetaminophen Active No Information Medications Medication Instructions Dosage Effective Dates (start - stop) Status Comments levofloxacin 250 mg tablet take 1 tablet by oral route every day 250 MG - Active Xanax 1 mg tablet take 1 tablet [...] Active Procedures Procedure Date OFFICE/OUTPATIENT VISIT, EST OFFICE/OUTPATIENT VISIT, EST PREV [...] Providers Copied on Encounter OFFICE/OUTPA TIENT VISIT, EST [facility], [address], [place], [place], [address], [place] tel:[phone] [facility] pain (chief complaint)anemi a1 (chief complaint)uTI1 (chief complaint) Chronic pain syndromeOther insomniaAnemia Acute cystitis with hematuria 5 Gaston Pickett [address], [place], [place], [address] , [place]. tel:[phone] OFFICE/OUTPA TIENT VISIT, EST [facility], [address], [place], [place], [address], [place] tel:[phone] [facility] pain (chief complaint)anxie ty1 (chief complaint)anemi a1 (chief complaint)bladd er CA (chief complaint) AnemiaChronic pain syndromeMalign ant neoplasm of bladder, unspecifiedOth er insomnia 5 Gaston Pickett [address], [place], [place], [address] , [place]. tel:[phone] PREV VISIT, EST, 65 & OVER [facility], [address], [place], [place], [address], [place] tel:[phone] [facility] physical (chief complaint) Centrilobular emphysemaChron ic pain syndromeMalign ant neoplasm of bladder, unspecifiedHyp othyroidismMix ed hyperlipidemia Encounter for general adult medical exam w abnormal findingsCorona ry artery disease of [place] coronary artery w/o angina pectorisGERD without esophagitis 5 Gaston Pickett [address], [place], [place], [address] , [place]. tel:[phone] OFFICE/OUTPA TIENT VISIT, [facility], [address], [place], [place], [address], [place] tel:[phone] [facility] pain (chief complaint)anxie ty1 (chief complaint)COPD1 (chief complaint) Chronic pain syndromePrimar y insomniaCentri lobular emphysemaPerso nal history of nicotine dependenceMali gnant neoplasm of bladder, unspecified July-0 8- 5 Feldman Iker. [address], [place], [place], [address] , [place]. [phone] OFFICE/OUTPA TIENT VISIT, [facility], [address], [place], [place], [address], [place] tel:[phone] [facility] pain (chief complaint)anxie ty1 (chief complaint) Chronic pain syndromePrimar y insomnia Apr-0 7- 5 Gaston Dong. [address], [place], [place], [address] , [place]. tel:[phone] OFFICE/OUTPA TIENT VISIT, [facility], [address], [place], [place], [address], [place] tel:[phone] [facility] pain (chief complaint)anxie ty1 (chief complaint) Chronic pain syndromePrimar y insomnia May-0 4-202 5 Gaston Dong. [address], [place], [place], [address] , [place]. [phone] OFFICE/OUTPA TIENT VISIT, [facility], [address], [place], [place], [address], [place] tel:[phone] [facility] pain (chief complaint)anxie ty1 (chief complaint)COPD1 (chief complaint) Chronic pain syndromeCentri lobular emphysemaPrima ry insomnia Feb-0 6-202 5 Feldman Iker. [address], [place], [place], [address] , [place]. tel:[phone] OFFICE/OUTPA TIENT VISIT, [facility], [address], [place], [place], [address], [place] tel:[phone] [facility] Medicine pain (chief complaint)anxie ty1 (chief complaint)thyro id1 (chief complaint) Chronic pain syndromePrimar y insomniaHypoth yroidism 5 Gaston Dong. [address], [place], [place], [address] , [place]. tel:[phone] OFFICE/OUTPA TIENT VISIT, [facility], [address], [place], [place], [address], [place] tel:[phone] [facility] Medicine pain (chief complaint)anxie ty1 (chief complaint) Chronic pain syndromePrimar y insomnia 4 Gaston Dong. [address], [place], [place], [address] , [place]. tel:[phone] OFFICE/OUTPA TIENT VISIT, [facility], [address], [place], [place], [address], [place] tel:[phone] [facility] pain (chief complaint)anxie ty1 (chief complaint)COPD1 (chief complaint) Chronic pain syndromePrimar y insomniaCentri lobular emphysema 4 Gaston Dong. [address], [place], [place], [address] , [place]. tel:[phone] OFFICE/OUTPA TIENT VISIT, [facility], [address], [place], [place], [address], [place] tel:[phone] [facility] pain (chief complaint)anxie ty1 (chief complaint) Chronic pain syndromePrimar y insomnia 4 Gaston Dong. [address], [place], [place], [address] , [place]. tel:[phone] OFFICE/OUTPA TIENT VISIT, [facility], [address], [place], [place], [address], [place] tel:[phone] [facility] Medicine pain (chief complaint)anxie ty1 (chief complaint) Chronic pain syndromePrimar y insomnia 4 Feldman Iker. [address], [place], [place], [address] , [place]. tel:[phone] OFFICE/OUTPA TIENT VISIT, [facility], [address], [place], [place], [address], [place] tel:[phone] [facility] pain (chief complaint)anxie ty1 (chief complaint)COPD1 (chief complaint) Centrilobular emphysemaChron ic pain syndromePrimar y insomnia 4 Feldman Iker. [address], [place], [place], [address] , [place]. tel:[phone] OFFICE/OUTPA TIENT VISIT, [facility], [address], [place], [place], [address], [place] tel:[phone] [facility] pain (chief complaint)anxie ty1 (chief complaint) Chronic pain syndromePrimar y insomnia 4 Feldman Iker. [address], [place], [place], [address] , [place]. tel:[phone] OFFICE/OUTPA TIENT VISIT, [facility], [address], [place], [place], [address], [place] tel:[phone] [facility] pain (chief complaint)anxie ty1 (chief complaint)COPD1 (chief complaint)bladd er Ca (chief complaint) Centrilobular emphysemaChron ic pain syndromePrimar y insomniaMalign ant neoplasm of bladder, unspecified 4 Feldman Iker. [address], [place], [place], [address] , [place]. tel:[phone] OFFICE/OUTPA TIENT VISIT, [facility], [address], [place], [place], [address], [place] tel:[phone] [facility] pain (chief complaint)anxie ty (chief complaint)thyro id1 (chief complaint)HLP (chief complaint) Chronic pain syndromeHypoth yroidismMixed hyperlipidemia Primary insomniaCentri lobular emphysema July- 4 Gaston Dong. [address], [place], [place], [address] , [place]. tel:[phone] PREV VISIT, EST, 65 & OVER [facility], [address], [place], [place], [address], [place] tel:[phone] [facility] physical (chief complaint) Encounter for general adult medical exam w abnormal findingsCentri lobular emphysemaChron ic pain syndromePrimar y insomniaHypoth yroidismMalign ant neoplasm of bladder, unspecifiedGER D w/o esophagitisCor onary artery disease of [place] coronary artery w/o angina pectoris Jun- 4 Gaston Dong. [address], [place], [place], [address] , [place]. [phone] OFFICE/OUTPA TIENT VISIT, [facility], [address], [place], [place], [address], [place] tel:[phone] [facility] pain (chief complaint)anxie ty1 (chief complaint) Chronic pain syndromePrimar y insomnia May- 4 Gaston Dong. [address], [place], [place], [address] , [place]. [phone] OFFICE/OUTPA TIENT VISIT, [facility], [address], [place], [place], [address], [place] tel:[phone] [facility] pain (chief complaint)anxie ty1 (chief complaint)COPD1 (chief complaint) Centrilobular emphysemaChron ic pain syndromePrimar y insomnia Apr- 4 Gaston Dong. [address], [place], [place], [address] , [place]. tel:[phone] OFFICE/OUTPA TIENT VISIT, [facility], [address], [place], [place], [address], [place] tel:[phone] [facility] pain (chief complaint)anxie y1 (chief complaint)hypot hyroidism1 (chief complaint) Hypothyroidism Chronic pain syndromePrimar y insomnia Mar- 4 Feldman Iekr. [address], [place], [place], [address] , [place]. tel:[phone] OFFICE/OUTPA TIENT VISIT, [facility], [address], [place], [place], [address], [place] tel:[phone] [facility] pain (chief complaint)anxie ty1 (chief complaint) Chronic pain syndromePrimar y insomnia Feb- 3 Gaston Dong. [address], [place], [place], [address] , [place]. tel:[phone] OFFICE/OUTPA TIENT VISIT, [facility], [address], [place], [place], [address], [place] tel:[phone] [facility] pain (chief complaint)pain (chief complaint)anxie ty1 (chief complaint) Chronic pain syndromePrimar y insomnia Jan- 3 Gaston Dong. [address], [place], [place], [address] , [place]. tel:[phone] OFFICE/OUTPA TIENT VISIT, [facility], [address], [place], [place], [address], [place] tel:[phone] [facility] pain (chief complaint)anxie ty1 (chief complaint) Chronic pain syndromePrimar y insomnia Jan-0 3 Gaston Iker. [address], [place], [place], [address] , [place]. tel:[phone] OFFICE/OUTPA TIENT VISIT, [facility], [address], [place], [place], [address], [place] tel:[phone] [facility] Medicine pain (chief complaint)anxie ty1 (chief complaint)hypot hyroidism1 (chief complaint) Chronic pain syndromePrimar y insomniaHypoth yroidism 3 Gaston Dong. [address], [place], [place], [address] , [place]. tel:[phone] OFFICE/OUTPA TIENT VISIT, [facility], [address], [place], [place], [address], tel:[phone] [facility] pain (chief complaint)anxie ty1 (chief complaint) Chronic pain syndromePrimar y insomnia Sep-0 3 Gaston Dong. [address], [place], [place], [address] , [place]. tel:[phone] OFFICE/OUTPA TIENT VISIT, [facility], [address], [place], [place], [address], [place] tel:[phone] [facility] PAIN (chief complaint)anxie ty1 (chief complaint)bladd er CA1 (chief complaint) Chronic pain syndromePrimar y insomniaMalign ant neoplasm of bladder, unspecifiedAcq uired renal cystCentrilobu lar emphysema Oct- 3 Gaston Dong. [address], [place], [place], [address] , [place]. tel:[phone] OFFICE/OUTPA TIENT VISIT, [facility], [address], [place], [place], [address], [place] tel:[phone] [facility] pain (chief complaint)anxie ty1 (chief complaint)GERD1 (chief complaint) Cervantes's esophagus without dysplasiaChron ic pain syndromePrimar y insomnia Sep-0 3 Gaston Dong. [address], [place], [place], [address] , [place]. tel:[phone] OFFICE/OUTPA TIENT VISIT, [facility], [address], [place], [place], [address], [place] tel:[phone] [facility] pain (chief complaint)anxie ty1 (chief complaint)hemae mesis1 (chief complaint)kidne y tumor1 (chief complaint) HematemesisChr onic pain syndromePrimar y insomniaMalign ant neoplasm of bladder, unspecified Bebeto-0 3 Gaston Dong. [address], [place], [place], [address] , . tel:[phone] OFFICE/OUTPA TIENT VISIT, EST [facility], [address] [place], [place], [address], tel:[phone] [facility] hematemesis1 (chief complaint) HematemesisBar rett's esophagus without dysplasiaAther osclerotic heart disease of [place] coronary artery without angina pectoris 3 Gaston Pickett [address], [place], [place], [address] , [place]. tel:[phone] OFFICE/OUTPA TIENT VISIT, EST [facility], [address], [place], [place], [address], tel:[phone] [facility] pain (chief complaint)insom nia1 (chief complaint) Chronic pain syndromePrimar y insomnia 3 Gaston Dong. [address], [place], [place], [address] , [place]. tel:[phone] PREV VISIT, EST, 65 & OVER [facility], [address], [place], [place], [address], [place] tel:[phone] [facility] physical (chief complaint) Encounter for general adult medical exam w abnormal findingsHypoth yroidismChroni c pain syndromeCentri lobular emphysemaEleva palomo prostate specific antigen [PSA]Asymptoma tic microscopic hematuriaMixed hyperlipidemia Cervantes's esophagus without dysplasiaPrima ry insomnia 3 Gaston Pickett [address], [place], [place], [address] , [place]. tel:[phone] OFFICE/OUTPA TIENT VISIT, EST [facility], [address] [place], [address], [place] tel:[phone] [facility] pain (chief complaint)insom nia1 (chief complaint)HTN (chief complaint)thyro id1 (chief complaint)bladd er CA (chief complaint) Chronic pain syndromePrimar y insomniaHypoth yroidismEssent ial (primary) hypertensionMi xed hyperlipidemia Malignant neoplasm of bladder, unspecified 3 Gaston Dong. [address], [place], [place], [address] , [place]. tel:[phone] OFFICE/OUTPA TIENT VISIT, [facility], [address], [place], [place], [address], [place] tel:[phone] [facility] pain (chief complaint)insom nia1 (chief complaint)kidne y1 (chief complaint)COPD1 (chief complaint) Chronic pain syndromePrimar y insomniaOther specified disorder of kidneyCentrilo bular emphysema 3 Gaston Dong. [address], [place], [place], [address] , [place]. tel:[phone] OFFICE/OUTPA TIENT VISIT, [facility], [address], [place], [place], [address], [place] tel:[phone] [facility] pain (chief complaint)insom nia1 (chief complaint)tobac co1 (chief complaint)bladd er CA1 (chief complaint) Chronic pain syndromePrimar y insomniaMalign ant neoplasm of bladder, unspecifiedTob acco use 3 Gaston Dong. [address], [place], [place], [address] , [place]. tel:[phone] OFFICE/OUTPA TIENT VISIT, [facility], [address] [place], [address], [place] tel:[phone] [facility] pain (chief complaint)insom nia1 (chief complaint) Chronic pain syndromePrimar y insomnia 2 Gaston Dong. [address], [place], [place], [address] , [place]. tel:[phone] OFFICE/OUTPA TIENT VISIT, [facility], [address], [place], [place], [address], [place] tel:[phone] [facility] pain (chief complaint)insom nia1 (chief complaint) Chronic pain syndromePrimar y insomnia 2 Gaston Dong. [address], [place], [place], [address] , [place]. tel:[phone] OFFICE/OUTPA TIENT VISIT, [facility], [address], [place], [place], [address], [place] tel:[phone] [facility] pain (chief complaint)insom nia1 (chief complaint)barre tt1 (chief complaint) Chronic pain syndromePrimar y insomniaBarret t's esophagus without dysplasiaMalig nant neoplasm of bladder, unspecified 2 Gaston Dong. [address], [place], [place], [address] , [place]. tel:[phone] OFFICE/OUTPA TIENT VISIT, [facility], [address], [place], [place], [address], [place] tel:[phone] [facility] pain (chief complaint)insom nia1 (chief complaint)COPD1 (chief complaint)thyro id1 (chief complaint) Chronic pain syndromeBarret t's esophagus without dysplasiaPrima ry insomniaHypoth yroidismCentri lobular emphysema 2 Gaston Dong. [address], [place], [place], [address] , [place]. tel:[phone] OFFICE/OUTPA TIENT VISIT, [facility], [address] [place], [address], [place] tel:[phone] [facility] pain (chief complaint)insom nia1 (chief complaint)CAD (chief complaint) Coronary artery disease of [place] coronary artery w/o angina pectorisChroni c pain syndromePrimar y insomnia 2 Gaston Dong. [address], [place], [place], [address] , [place]. tel:[phone] OFFICE/OUTPA TIENT VISIT, [facility], [address], [place], [place], [address], [place] tel:[phone] [facility] Medicine pain (chief complaint)insom nia1 (chief complaint) Chronic pain syndromePrimar y insomnia 2 Feldman Iker. [address], [place], [place], [address] , [place]. tel:[phone] OFFICE/OUTPA TIENT VISIT, [facility], [address], [place], [place], [address], [place] tel:[phone] [facility] pain (chief complaint)insom nia1 (chief complaint) Chronic pain syndromePrimar y insomnia Aug- 2 Feldman Iker. [address], [place], [place], [address] , [place]. tel:[phone] OFFICE/OUTPA TIENT VISIT, [facility], [address], [place], [place], [address], [place] tel:[phone] [facility] pain (chief complaint)insom nia1 (chief complaint)[place] tt1 (chief complaint)renal CA (chief complaint) Polyp of colonBarrett's esophagus without dysplasiaInsom niaChronic pain syndromeCa of left kidney, except renal pelvis 2 Feldman Iker. [address], [place], [place], [address] , [place]. tel:[phone] OFFICE/OUTPA TIENT VISIT, [facility], [address], [place], [address], [place] tel:[phone] [facility] pain (chief complaint)insom nia1 (chief complaint)vitam in D (chief complaint)colon polyp (chief complaint)emphy sema1 (chief complaint) Chronic pain syndromeInsomn iaVitamin D deficiencyPoly p of colonEmphysema 2 Feldman Iker. [address], [place], [place], [address] , [place]. tel:[phone] PREV VISIT, EST, 65 & OVER [facility], [address], [place], [place], [address], [place] tel:[phone] [facility] physical (chief complaint) Hyperlipidemia Chronic pain syndromeMalign ant neoplasm of bladder, unspecifiedBar rett's esophagus without dysplasiaEmphy semaFolate deficiencyHypo calcemiaHypoth yroidismInsomn iaEncounter for general adult medical exam w abnormal findings 2 Gaston Pickett [address], [place], [place], [address] , [place]. tel:[phone] OFFICE/OUTPA TIENT VISIT, [facility], [address] [place], [address], [place] tel:[phone] [facility] pain (chief complaint)insom nia1 (chief complaint)bladd er tumor1 (chief complaint)thyro id1 (chief complaint)CAD1 (chief complaint) Chronic pain syndromeInsomn iaMalignant neoplasm of bladder, unspecifiedHyp erlipidemiaHyp othyroidism 2 Gaston Pickett [address], [place], [place], [address] , [place]. tel:[phone] OFFICE/OUTPA TIENT VISIT, [facility], [address] [place], [address], [place] tel:[phone] [facility] pain (chief complaint)bladd er CA (chief complaint)tobac co (chief complaint)insom nia1 (chief complaint)GERD1 (chief complaint) Chronic pain syndromeInsomn iaBarrett's esophagus without dysplasiaMalig nant neoplasm of bladder, unspecifiedTob acco use 2 Gaston Pickett [address], [place], [place], [address] , [place]. tel:[phone] OFFICE/OUTPA TIENT VISIT, [facility], [address] [place], [address], [place] tel:[phone] [facility] pain (chief complaint)insom nia1 (chief complaint)tobac co1 (chief complaint)bladd er CA (chief complaint)GERD1 (chief complaint) Malignant neoplasm of bladder, unspecifiedIns omniaChronic pain syndromeTobacc o useBarrett's esophagus without dysplasia 1 Feldman Iker. [address], [place], [place], [address] , [place]. tel:[phone] OFFICE/OUTPA TIENT VISIT, [facility], [address], [place], [place], [address], [place] tel:[phone] [facility] pain (chief complaint)insom nia1 (chief complaint)GERD1 (chief complaint)bladd er CA1 (chief complaint) InsomniaChroni c pain syndromeBarret t's esophagus without dysplasiaMalig nant neoplasm of bladder, unspecified 1 Feldman Iker. [address], [place], [place], [address] , [place]. tel:[phone] OFFICE/OUTPA TIENT VISIT, [facility], [address], [place], [place], [address], [place] tel:[phone] [facility] pain (chief complaint)insom nia1 (chief complaint)thyro id1 (chief complaint)bladd er CA (chief complaint) InsomniaHypoth yroidismMalign ant neoplasm of bladder, unspecifiedChr onic pain syndrome 1 Gaston Dong. [address], [place], [place], [address] , [place]. tel:[phone] OFFICE/OUTPA TIENT VISIT, [facility], [address] [place], [address], [place] tel:[phone] [facility] pain (chief complaint)insom nia1 (chief complaint)COPD1 (chief complaint)bladd er CA (chief complaint) InsomniaChroni c pain syndromeTobacc o useEmphysemaMa lignant neoplasm of bladder, unspecified Nov-3 1 Feldman Iker. [address], [place], [place], [address] , [place]. tel:[phone] OFFICE/OUTPA TIENT VISIT, [facility], [address], [place], [place], [address], [place] tel:[phone] [facility] pain (chief complaint)insom nia1 (chief complaint)tobac co1 (chief complaint) Chronic pain syndromeInsomn iaTobacco use 1 Gaston Pickett [address], [place], [place], [address] , [place]. tel:[phone] OFFICE/OUTPA TIENT VISIT, [facility], [address], [address], [place] tel:[phone] [facility] Medicine pain (chief complaint)insom nia1 (chief complaint)renal 1 (chief complaint) LeukocytosisAc cahto renal failureHypokal emiaInsomniaCh ronic pain syndromeEssent ial (primary) hypertension 1 Gaston Pickett [address], [place], [address] , [place]. [phone] OFFICE/OUTPA TIENT VISIT, [facility], [address] [place], [address], [place] tel:[phone] [facility] pain1 (chief complaint)insom nia1 (chief complaint)barre tt (chief complaint)weigh t loss1 (chief complaint) Chronic pain syndromeInsomn iaBarrett's esophagus without dysplasiaAbnor mal weight loss 1 Gaston Pickett [address], [place], [place], [address] , [place]. [phone] OFFICE/OUTPA TIENT VISIT, [facility], [address] [place], [address], [place] tel:[phone] [facility] pain (chief complaint)insom na1 (chief complaint) Chronic pain syndromeInsomn ia 1 Gaston Pickett [address], [address], [address] , [place]. tel:[phone] OFFICE/OUTPA TIENT VISIT, [facility], [address], [address], [place] tel:[phone] [facility] Medicine pain (chief complaint)insom nia1 (chief complaint)vitam in D (chief complaint) Chronic pain syndromeInsomn iaVitamin D deficiency, unspecified 1 Gaston Dong. [address], [place], [place], [address] , [place]. tel:[phone] OFFICE/OUTPA TIENT VISIT, [facility], [address], [place], [place], [address], [place] tel:[phone] [facility] pain (chief complaint)insom nia1 (chief complaint) Chronic pain syndromeInsomn ia 1 Gaston Dong. [address], [place], [place], [address] , [place]. tel:[phone] OFFICE/OUTPA TIENT VISIT, [facility], [address], [place], [place], [address], [place] tel:[phone] [facility] Medicine pain (chief complaint)insom nia1 (chief complaint)COPD1 (chief complaint) Chronic pain syndromeEmphys emaInsomnia May- 1 Gaston Dong. [address], [place], [place], [address] , [place]. tel:[phone] PREV VISIT, EST, 65 & OVER [facility], [address], [place], [address], [place] tel:[phone] [facility] Medicine physical (chief complaint) Encounter for general adult medical exam w abnormal findingsChroni c pain syndromeEmphys emaInsomniaHyp othyroidismCor onary artery disease of [place] coronary artery w/o angina pectorisMalign ant neoplasm of bladder, unspecified 1 Gaston Dong. [address], [place], [place], [address] , [place]. tel:[phone] OFFICE/OUTPA TIENT VISIT, [facility], [address], [place], [place], [address], [place] tel:[phone] [facility] pain (chief complaint)insom nia1 (chief complaint)COPD1 (chief complaint) EmphysemaChron ic pain syndromeInsomn ia 0 Gaston Dong. [address], [place], [place], [address] , [place]. tel:[phone] OFFICE/OUTPA TIENT VISIT, [facility], [address], [place], [place], [address], [place] tel:[phone] [facility] pain1 (chief complaint)insom nia1 (chief complaint)hypot hyroidism1 (chief complaint)HLP (chief complaint) Hypothyroidism Hyperlipidemia Chronic pain syndromeInsomn ia 0 Gaston Iker. [address], [place], [place], [address] , [place]. tel:[phone] OFFICE/OUTPA TIENT VISIT, [facility], [address], [place], [place], [address], [place] tel:[phone] [facility] pain (chief complaint)insom nia1 (chief complaint)hypot hyroidism1 (chief complaint)CAD1 (chief complaint) Chronic pain syndromeInsomn iaCoronary artery disease of [place] coronary artery w/o angina pectorisHypoth yroidism 0 Gaston Dong. [address], [address], [place], [place], [address] , [place]. tel:[phone] OFFICE/OUTPA TIENT VISIT, [facility], [address], [place], [place], [address], [place] tel:[phone] [facility] pain (chief complaint)insom nia1 (chief complaint)tobac co1 (chief complaint) Chronic pain syndromeInsomn iaTobacco use 0 Feldman Iker. [address], [address], [place], [place], [address] , [place]. tel:[phone] OFFICE/OUTPA TIENT VISIT, [facility], [address], [place], [place], [address], [place] tel:[phone] [facility] pain (chief complaint)insom nia1 (chief complaint)tobac co (chief complaint)COPD1 (chief complaint) Chronic pain syndromeInsomn iaEmphysemaTob acco use 0 Gaston Iker. [address], [place], [place], [address] , [place]. tel:[phone] OFFICE/OUTPA TIENT VISIT, [facility], [address], [place], [place], [address], [place] tel:[phone] [facility] Medicine pain (chief complaint)insom nia1 (chief complaint)tobac co1 (chief complaint) Chronic pain syndromeInsomn iaTobacco use 0 Gaston Iker. [address], [place], [place], [address] , [place]. tel:[phone] OFFICE/OUTPA TIENT VISIT, [facility], [address], [place], [place], [address], [place] tel:[phone] [facility] pain (chief complaint)insom nia1 (chief complaint) Chronic pain syndromeInsomn iaMalignant neoplasm of bladder, unspecified 0 Gaston Iker. [address], [place], [place], [address] , [place]. tel:[phone] OFFICE/OUTPA TIENT VISIT, [facility], [address], [place], [place], [address], [place] tel:[phone] [facility] Medicine pain1 (chief complaint)anxie ty1 (chief complaint)COPD1 (chief complaint)bladd er CA1 (chief complaint) Chronic pain syndromeInsomn iaEmphysemaMal ignant neoplasm of bladder, unspecified 0 Feldman Iker. [address], [place], [place], [address] , [place]. tel:[phone] OFFICE/OUTPA TIENT VISIT, [facility], [address], [place], [place], [address], [place] tel:[phone] [facility] pain (chief complaint)anxie ty1 (chief complaint)D (chief complaint) InsomniaChroni c pain syndromeVitami n D deficiency, unspecified May- 0 Gaston Dong. [address], [place], [place], [address] , [place]. tel:[phone] OFFICE/OUTPA TIENT VISIT, [facility], [address], [place], [place], [address], [place] tel:[phone] [facility] pain (chief complaint)anxie ty1 (chief complaint) Chronic pain syndromeInsomn ia Apr- 0 Gaston Dong. [address], [place], [place], [address] , [place]. tel:[phone] OFFICE/OUTPA TIENT VISIT, [facility], [address], [place], [place], [address], [place] tel:[phone] [facility] pain1 (chief complaint)anxie ty1 (chief complaint)[place] tt1 (chief complaint)bladd er1 (chief complaint)HTn (chief complaint) Cervantes's esophagus without dysplasiaChron ic pain syndromeInsomn iaMalignant neoplasm of bladder, unspecifiedEss ential (primary) hypertension May- 0 Gaston Pickett [address], [place], [place], [address] , [place]. tel:[phone] Referring Provider: Franky Dunham [facility], [place], [place], [address]. tel:[phone] OFFICE/OUTPA TIENT VISIT, [facility], [address], [place], [place], [address], [place] tel:[phone] [facility] copd (chief complaint)pain1 (chief complaint)anxie ty1 (chief complaint)[place] tt1 (chief complaint)CAD (chief complaint) InsomniaBarret t's esophagus without dysplasiaChron ic pain syndromeEmphys emaCoronary artery disease of [place] coronary artery w/o angina pectoris 0 Gaston Pickett [address], [address], [place], [place], [address] , [place]. tel:[phone] Referring Provider: Franky Dunham [place], [address]. tel:[phone] OFFICE/OUTPA TIENT VISIT, [facility], [address] [place], [address], tel:[phone] [facility] anxiety1 (chief complaint)pain (chief complaint)bladd er CA (chief complaint)[place] tt1 (chief complaint)COPD1 (chief complaint) Malignant neoplasm of bladder, unspecifiedEmp hysemaBarrett' s esophagus without dysplasiaChron ic pain syndromeInsomn ia 0 Gaston Dong. [facility] [place], [place], [address] , [place]. tel:[phone] Referring Provider: Franky Dunham [facility] A, [place], [place], [address]. tel:[phone] OFFICE/OUTPA TIENT VISIT, [facility], [address] [place], [place], [address], [place] tel:[phone] [facility] chronic pain1 (chief complaint)anxie ty1 (chief complaint)HTN (chief complaint)bladd er CA (chief complaint) Chronic pain syndromeMalign ant neoplasm of bladder, unspecifiedIns omniaEssential (primary) hypertensionCo ronary artery disease of [place] coronary artery w/o angina pectoris 9 Gaston Pickett [address] [facility], [place], [place], [address] , [place]. tel:[phone] Referring Provider: Franky Dunham [address] [facility], [place], [place], [address]. tel:[phone] PREV VISIT, EST, 65 & OVER [facility], [address] [place], [place], [address], [place] tel:[phone] [facility] Medicine physical (chief complaint) Encounter for general adult medical exam w abnormal findingsEmphys emaBarrett's esophagus without dysplasiaMalig nant neoplasm of bladder, unspecifiedChr onic pain syndromeHypoth yroidismCorona ry artery disease of [place] coronary artery w/o angina pectoris 9 Gaston Pickett [address], [place], [place], [address] , [place]. [phone] Referring Provider: Iker Feldman, [address], [place], [place], [address]. tel:[phone] OFFICE/OUTPA TIENT VISIT, [facility], [address] [place], [address], [place] tel:[phone] [facility] chronic pain1 (chief complaint)insom nia1 (chief complaint)COPD (chief complaint)HTN (chief complaint) EmphysemaChron ic pain syndromeInsomn iaCoronary artery disease of [place] coronary artery w/o angina pectoris 9 Gaston Pickett [address], [place], [place], [address] , [place]. tel:[phone] OFFICE/OUTPA TIENT VISIT, [facility], [address] [place], [address], [place] tel:[phone] [facility] emphysema1 (chief complaint)chron ic pain1 (chief complaint)insom nia1 (chief complaint)GERD1 (chief complaint) EmphysemaChron ic pain syndromeInsomn iaBarrett's esophagus without dysplasia 0 9 Gaston Pickett [address], [place], [place], [address] , [place]. tel:[phone] OFFICE/OUTPA TIENT VISIT, [facility], [address] [place], [address], [place] tel:[phone] [facility] chronic pain1 (chief complaint)insom nia1 (chief complaint) Chronic pain syndromeInsomn ia Oct- 9 Gaston Pickett [address], [address], [place], [place], [address] , [place]. [phone] OFFICE/OUTPA TIENT VISIT, [facility], [address], [place], [place], [address], [place] tel:[phone] [facility] chronic pain1 (chief complaint)insom nia1 (chief complaint)COPD1 (chief complaint)bladd er tumor1 (chief complaint) Chronic pain syndromeInsomn iaEmphysemaMal ignant neoplasm of bladder, unspecified 9 Gaston Dong. [address], [place], [place], [address] , [place]. tel:[phone] OFFICE/OUTPA TIENT VISIT, [facility], [address], [place], [place], [address], [place] tel:[phone] [facility] chronic pain (chief complaint)anxie ty1 (chief complaint)bladd er CA (chief complaint)lung (chief complaint) Chronic pain syndromeInsomn iaScreening for lung caMalignant neoplasm of bladder, unspecified 9 Gaston Dong. [address], [place], [place], [address] , [place]. [phone] Referring Provider: Franky Dunham [address], [place], [place], [address]. tel:[phone] OFFICE/OUTPA TIENT VISIT, [facility], [address], [place], [place], [address], [place] tel:[phone] [facility] vitamin D1 (chief complaint)thyro id1 (chief complaint)chron ic pain1 (chief complaint)insom nia1 (chief complaint) Hypothyroidism InsomniaChroni c pain syndromeVitami n D deficiency, unspecified 9 Gaston Pickett [address], [place], [place], [address] , [place]. tel:[phone] Referring Provider: Franky Dunham [address], [place], [place], [address]. tel:[phone] OFFICE/OUTPA TIENT VISIT, [facility], [address], [place], [place], [address], [place] tel:[phone] [facility] chronic pain (chief complaint)insom nia1 (chief complaint) Chronic pain syndromeInsomn ia 9 Gaston Dong. [address], [place], [place], [address] , . tel:[phone] Referring Provider: Iker Feldman [address] [facility] A, [place], [place], [address]. tel:[phone] OFFICE/OUTPA TIENT VISIT, [facility], [address], [place], [place], [address], tel:[phone] [facility] chronci pain1 (chief complaint)hypot hyroidism1 (chief complaint)CAD1 (chief complaint)lung (chief complaint) Chronic pain syndromeHypoth yroidismCorona ry artery disease of [place] coronary artery w/o angina pectorisScreen ing for lung caInsomnia 9 Gaston Dong. [address], [facility], [place], [place], [address] , . tel:[phone] Referring Provider: Franky Dunham [facility] [place], [address]. tel:[phone] OFFICE/OUTPA TIENT VISIT, [facility], [address] [place], [address], [place] tel:[phone] [facility] chronic pain1 (chief complaint)insom nia1 (chief complaint) Chronic pain syndromeInsomn ia 9 Gaston Dong. [address], [place], [place], [address] , . tel:[phone] Referring Provider: Franky Dunham [facility], [place], [place], [address]. tel:[phone] OFFICE/OUTPA TIENT VISIT, [facility], [address] [place], [address], [place] tel:[phone] [facility] CAD1 (chief complaint)[place] tt1 (chief complaint)bladd er tumor1 (chief complaint)chron ic pain1 (chief complaint)insom nia1 (chief complaint) Cervantes's esophagus without dysplasiaChron ic pain syndromeCorona ry artery disease of [place] coronary artery w/o angina pectorisEmphys emaInsomnia 9 Gaston Pickett [address], [address], [place], [place], [address] , [place]. tel:[phone] Referring Provider: Franky Dunham [address], [place], [place], [address]. tel:[phone] OFFICE/OUTPA TIENT VISIT, [facility], [address], [place], [place], [address], [place] tel:[phone] [facility] chronic pain (chief complaint)insom nia1 (chief complaint)bladd er CA1 (chief complaint) Chronic pain syndromeInsomn iaMalignant neoplasm of bladder, unspecified Gaston Pickett [address], [place], [place], [address] , [place]. tel:[phone] Referring Provider: Franky Dunham [facility], [place], [place], [address]. tel:[phone] OFFICE/OUTPA TIENT VISIT, [facility], [address], [place], [place], [address], [place] tel:[phone] [facility] chronic pain (chief complaint)anxie ty1 (chief complaint)renal lesion (chief complaint)[place] tt (chief complaint) InsomniaMalign ant neoplasm of bladder, unspecifiedChr onic pain syndromeBarret t's esophagus without dysplasia 8 [address], [place], [place], [address] , [place]. tel:[phone] Referring Provider: Franky Dunham [address], [place], [place], [address]. tel:[phone] OFFICE/OUTPA TIENT VISIT, [facility], [address] [place], [address], [place] tel:[phone] [facility] thyroid1 (chief complaint)chron ic pain1 (chief complaint)insom nia1 (chief complaint)COPD1 (chief complaint)bladd er tumor1 (chief complaint) EmphysemaInsom niaOther cystic kidney diseasesHypoth yroidismChroni c pain syndrome 8 Gaston Dong. [address], [address], [place], [place], [address] , [place]. tel:[phone] Referring Provider: Franky Dunham [address], [place], [place], [address]. tel:[phone] PREV VISIT, EST, AGE 40-64 [facility], [address], [place], [place], [address], [place] tel:[phone] [facility] Medicine Physical (chief complaint) Encounter for general adult medical exam w abnormal findingsChroni c pain syndromeInsomn iaMalignant neoplasm of bladder, unspecifiedCor onary artery disease of [place] coronary artery w/o angina pectorisHypoth yroidismEmphys zuleima 8 Gaston Dong. [address], [place], [place], [address] , [place]. tel:[phone] Referring Provider: Franky Dunham [address], [place], [place], [address]. tel:[phone] OFFICE/OUTPA TIENT VISIT, EST [facility], [address], [place], [place], [address], [place] tel:[phone] [facility] Medicine bladder CA (chief complaint)kidne y cyst1 (chief complaint)chron ic pain1 (chief complaint)insom nia1 (chief complaint) Malignant neoplasm of bladder, unspecifiedOth er cystic kidney diseasesChroni c pain syndromeInsomn ia 3 0 8 Gaston Dong. [address], [place], [place], [address] , [place]. tel:[phone] Referring Provider: Franky Dunham [address], [place], [place], [address]. tel:[phone] OFFICE/OUTPA TIENT VISIT, EST [facility], [address], [place], [place], [address], [place] tel:[phone] [facility] Medicine chronic pain1 (chief complaint)anxie ty1 (chief complaint)COPD1 (chief complaint)renal 1 (chief complaint) EmphysemaChron ic pain syndromeBladde r disorder, unspecifiedIns omnia 8 Gaston Pickett [address], [place], [place], [address] , [place]. tel:[phone] OFFICE/OUTPA TIENT VISIT, [facility], [address], [place], [place], [address], [place] tel:[phone] [facility] kidney1 (chief complaint)chron ic pain (chief complaint)insom nia1 (chief complaint) Chronic pain syndromeBladde r disorder, unspecifiedOth er cystic kidney diseases 8 Gaston Pickett [address], [place], [place], [address] , [place]. tel:[phone] Referring Provider: Franky Dunham [address], [place], [place], [address]. tel:[phone] OFFICE/OUTPA TIENT VISIT, [facility], [address], [place], [place], [address], [place] tel:[phone] [facility] hypothyroidism (chief complaint)HLP (chief complaint)chron ic pain1 (chief complaint)insom nia1 (chief complaint) Hypothyroidism Hyperlipidemia Chronic pain syndromeInsomn ia 8 Gaston Pickett [address], [place], [place], [address] , [place]. tel:[phone] Referring Provider: Franky Dunham [address], [place], [place], [address]. tel:[phone] OFFICE/OUTPA TIENT VISIT, [facility], [address] [place], [address], [place] tel:[phone] [facility] chronic pain (chief complaint)insom nia1 (chief complaint)CAD1 (chief complaint)COPD1 (chief complaint) Chronic pain syndromeCorona ry artery disease of [place] coronary artery w/o angina pectorisInsomn iaTobacco use 8 Gaston Pickett [address], [place], [place], [address] , [place]. tel:[phone] Referring Provider: Iker Feldman, [address], [place], [place], [address]. tel:[phone] OFFICE/OUTPA TIENT VISIT, [facility], [address], [place], [place], [address], [place] tel:[phone] [facility] chronic pain (chief complaint)insom nia1 (chief complaint)tobac co1 (chief complaint) Chronic pain syndromeInsomn iaTobacco use Mar-3 8 Gaston Dong. [address], [place], [address] , [place]. tel:[phone] OFFICE/OUTPA TIENT VISIT, [facility], [address], [place], [place], [address], [place] tel:[phone] [facility] chronic pain1 (chief complaint)anxie ty1 (chief complaint)tobac co1 (chief complaint)[place] tt (chief complaint) Cervantes's esophagus without dysplasiaInsom niaChronic pain syndromeEmphys zuleima Mar-0 8 Gaston Dong. [address], [place], [place], [address] , [place]. tel:[phone] Referring Provider: Iker Feldman, [address], [place], [place], [address]. tel:[phone] OFFICE/OUTPA TIENT VISIT, [facility], [address], [place], [place], [address], [place] tel:[phone] [facility] chronic pain1 (chief complaint)insom nia1 (chief complaint) InsomniaChroni c pain syndrome Feb-0 8 Gaston Dong. [address], [place], [place], [address] , [place]. tel:[phone] OFFICE/OUTPA TIENT VISIT, [facility], [address], [place], [place], [address], [place] tel:[phone] [facility] COPD1 (chief complaint)chron ic pain1 (chief complaint)insom nia1 (chief complaint)barre tt1 (chief complaint) Cervantes's esophagus without dysplasiaEmphy semaInsomniaCh ronic pain syndrome 8 Gaston Pickett [address], [place], [address] , [place]. [phone] Referring Provider: Franky Dunham [address], [place], [place], [address]. tel:[phone] OFFICE/OUTPA TIENT VISIT, [facility], [address], [place], [address], [place] [phone] [facility] sob (chief complaint)chron ic pain1 (chief complaint)insom nia1 (chief complaint) EmphysemaInsom niaChronic pain syndrome 7 [address], [place], [address] , [place]. [phone] Referring Provider: Franky Dunham [address], [place], [place], [address]. tel:[phone] OFFICE/OUTPA TIENT VISIT, [facility], [address], [place], [place], [address], [place] tel:[phone] [facility] chrnoic pain (chief complaint)anxei ty1 (chief complaint) Chronic pain syndromeInsomn ia 7 [address], [place], [address] , [place]. [phone] Referring Provider: Franky Dunham [address], [place], [place], [address]. tel:[phone] OFFICE/OUTPA TIENT VISIT, [facility], [address], [place], [place], [address], [place] tel:[phone] [facility] chronic pain1 (chief complaint)anxie ty1 (chief complaint)thyro id1 (chief complaint)[place] tt1 (chief complaint) InsomniaHypoth yroidismBarret t's esophagus without dysplasiaChron ic pain syndrome 7 [address], [place], [place], [address] , [place]. [phone] Referring Provider: Franky Dunham [address], [place], [place], [address]. tel:[phone] OFFICE/OUTPA TIENT VISIT, EST [facility], [address], [place], [address], [place] [phone] [facility] chronic pain (chief complaint)anxie ty1 (chief complaint)ED (chief complaint) Chronic pain syndromeInsomn iaMale erectile dysfunction, unspecified Sep-0 7 Gaston Pickett [address], [address], [place], [place], [address] , [place]. [phone] Referring Provider: Franky Dunham [address], [place], [place], [address]. tel:[phone] PREV VISIT, EST, AGE 40-64 [facility], [address], [place], [place], [address], [place] [phone] [facility] Physical (chief complaint) Encounter for general adult medical exam w abnormal findingsHypoth yroidismInsomn iaAtherosclero tic heart disease of [place] coronary artery without angina pectoris 7 [address], [address], [place], [address] , [place]. [phone] Referring Provider: Franky Dunham [address], [place], [place], [address]. tel:[phone] OFFICE/OUTPA TIENT VISIT, EST [facility], [address], [place], [place], [address], [place] [phone] [facility] Cervantes (chief complaint)insom nia1 (chief complaint)chron ic pain1 (chief complaint)CAD (chief complaint) Cervantes's esophagus without dysplasiaChron ic pain syndromeAthero sclerotic heart disease of [place] coronary artery without angina pectorisInsomn ia 7 Gaston Pickett [address], [place], [place], [address] , . tel:[phone] Referring Provider: Franky Dunham [address], [place], [place], [address]. tel:[phone] OFFICE/OUTPA TIENT VISIT, [facility], [address], [place], [place], [address], [place] tel:[phone] [facility] chronic pain1 (chief complaint)insom nia1 (chief complaint) Chronic pain syndromeInsomn ia 7 Gaston Dong. [address], [place], [place], [address] , [place]. tel:[phone] Referring Provider: Franky Dunham [facility], [place], [place], [address]. tel:[phone] OFFICE/OUTPA TIENT VISIT, [facility], [address] [place] [address] [place], [address], tel:[phone] [facility] CAD (chief complaint)thyro id1 (chief complaint)hep C (chief complaint)chron ic pain1 (chief complaint)anxie ty1 (chief complaint) Hypothyroidism Atheroscleroti c heart disease of [place] coronary artery without angina pectorisInsomn iaHepatitis C 7 Gaston Dong. [address], [place], [address] , [place]. tel:[phone] Referring Provider: Franky Dunham [facility], [place], [address]. tel:[phone] OFFICE/OUTPA TIENT VISIT, [facility], [address] [place], [address], [place] tel:[phone] [facility] chronic pain (chief complaint)insom nia1 (chief complaint)hep C (chief complaint)HLP (chief complaint) InsomniaHyperl ipidemiaEncoun ter for screening for other viral diseasesHypoth yroidism Jun-2 7 Gaston Dong. [address], [place], [place], [address] , [place]. tel:[phone] Referring Provider: Franky Dunham [address], [place], [place], [address]. tel:[phone] OFFICE/OUTPA TIENT VISIT, [facility], [address], [place], [place], [address], [place] tel:[phone] [facility] emphysema1 (chief complaint)chron ic pain (chief complaint)insom nia1 (chief complaint)CAD1 (chief complaint) COPDInsomniaCh ronic pain syndromeAthero sclerotic heart disease of [place] coronary artery without angina pectoris 7 Gaston Dong. [address], [place], [address] , [place]. tel:[phone] Referring Provider: Franky Dunham [address], [place], [place], [address]. tel:[phone] OFFICE/OUTPA TIENT VISIT, [facility], [address], [place], [place], [address], [place] tel:[phone] [facility] chronic pain1 (chief complaint)insom nia1 (chief complaint)CAD (chief complaint)tobac co1 (chief complaint) InsomniaTobacc o useChronic pain syndromeAthero sclerotic heart disease of [place] coronary artery without angina pectoris 7 Gaston Dong. [address], [place], [place], [address] , [place]. tel:[phone] Referring Provider: Franky Dunham [address], [place], [place], [address]. tel:[phone] OFFICE/OUTPA TIENT VISIT, [facility], [address], [place], [place], [address], [place] tel:[phone] [facility] chronic pain (chief complaint)insom nia1 (chief complaint)tobac co1 (chief complaint) Chronic pain syndromeInsomn iaTobacco use 7 Gaston Dong. [address], [place], [place], [address] , [place]. tel:[phone] Referring Provider: Franky Dunham [address], [place], [place], [address]. tel:[phone] OFFICE/OUTPA TIENT VISIT, [facility], [address], [place], [place], [address], [place] tel:[phone] [facility] chronic pain1 (chief complaint)anxie ty1 (chief complaint)ED (chief complaint)GERD1 (chief complaint) Cervantes's esophagus without dysplasiaChron ic pain syndromeInsomn iaMale erectile dysfunction, unspecified Feb- 6 Gaston Dong. [address], [place], [place], [address] , [place]. tel:[phone] Referring Provider: Franky Dunham [address], [place], [place], [address]. tel:[phone] OFFICE/OUTPA TIENT VISIT, [facility], [address], [place], [place], [address], [place] tel:[phone] [facility] chronic pain (chief complaint)anxie ty1 (chief complaint) Chronic pain syndromeInsomn ia 6 Gaston Dong. [address], [place], [place], [address] , [place]. tel:[phone] Referring Provider: Franky Dun[address], [place], [place], [address]. tel:[phone] OFFICE/OUTPA TIENT VISIT, [facility], [address], [place], [place], [address], [place] tel:[phone] [facility] chronic pain (chief complaint)anxie ty1 (chief complaint)hypot hyroidism (chief complaint)HTN (chief complaint) Chronic pain syndromeInsomn iaEssential (primary) hypertensionHy pothyroidism Dec- 6 Gaston Dong. [address], [place], [place], [address] , [place]. tel:[phone] Referring Provider: Franky Dun[address], [place], [place], [address]. tel:[phone] OFFICE/OUTPA TIENT VISIT, [facility], [address], [place], [place], [address], [place] tel:[phone] [facility] chronic pain1 (chief complaint)anxie ty1 (chief complaint)GERD1 (chief complaint)HTN (chief complaint) Chronic pain syndromeBarret t's esophagus without dysplasiaEssen tial (primary) hypertensionAn xiolytic dependence Nov- 6 Gaston Dong. [address], [place], [place], [address] , [place]. tel:[phone] Referring Provider: Iker Feldman, [address], [place], [place], [address]. tel:[phone] OFFICE/OUTPA TIENT VISIT, [facility], [address], [place], [place], [address], [place] tel:[phone] [facility] chronic pain (chief complaint)anxie ty1 (chief complaint) Chronic pain syndromeAnxiol ytic dependence 6 Gaston Dong. [address], [place], [place], [address] , [place]. tel:[phone] Referring Provider: Franky Dun[address], [place], [place], [address]. tel:[phone] OFFICE/OUTPA TIENT VISIT, [facility], [address], [place], [place], [address], [place] tel:[phone] [facility] CAD (chief complaint)HLP (chief complaint)hypot hyroidism (chief complaint)chron ic pain (chief complaint) Atheroscleroti c heart disease of [place] coronary artery without angina pectorisAnxiol ytic dependenceHype rlipidemiaChro flores pain syndrome 6 Gaston Dong. [address], [place], [place], [address] , [place]. tel:[phone] Referring Provider: Franky Dun[address], [place], [place], [address]. tel:[phone] OFFICE/OUTPA TIENT VISIT, [facility], [address], [place], [place], [address], [place] tel:[phone] [facility] chronic pain (chief complaint)insom nia1 (chief complaint)ED1 (chief complaint) Chronic pain syndromeInsomn iaOther male erectile dysfunctionCor onary artery disease of [place] coronary artery w/o angina pectoris 3 6 Gaston Dong. [address], [place], [place], [address] , [place]. tel:[phone] Referring Provider: Franky Dun[address], [place], [place], [address]. tel:[phone] OFFICE/OUTPA TIENT VISIT, [facility], [address], [place], [place], [address], [place] tel:[phone] [facility] chronic pain (chief complaint)anxie ty1 (chief complaint) Chronic pain syndromeAnxiol ytic dependence Aug-0 6 Gaston Dong. [address], [place], [place], [address] , [place]. tel:[phone] Referring Provider: Franky Dunham [facility], [place], [place], [address]. tel:[phone] OFFICE/OUTPA TIENT VISIT, [facility], [address], [place], [place], [address], [place] tel:[phone] [facility] chronic pain (chief complaint)anxie ty1 (chief complaint)barre tt (chief complaint)CAD (chief complaint) Chronic pain syndromeBarret t's esophagus without dysplasiaCoron william artery disease of [place] coronary artery w/o angina pectorisEncoun ter for screening for malignant neoplasm of prostate 2 6 Gaston Dong. [address], [place], [place], [address] , [place]. tel:[phone] Referring Provider: Franky Dun[address], [place], [place], [address]. tel:[phone] OFFICE/OUTPA TIENT VISIT, [facility], [address], [place], [place], [address], [place] tel:[phone] [facility] chronic pain (chief complaint)anxie ty1 (chief complaint)dizzi ness (chief complaint)anemi a1 (chief complaint) AnemiaDizzines sChronic pain syndrome Jun- 6 Gaston Dong. [address], [place], [place], [address] , [place]. tel:[phone] Referring Provider: Iker Feldman, [address], [place], [place], [address]. tel:[phone] OFFICE/OUTPA TIENT VISIT, [facility], [address], [place], [place], [address], [place] tel:[phone] [facility] chronic pain (chief complaint)anxie ty1 (chief complaint) Other insomniaChroni c pain syndrome 6 Gaston Dong. [address], [place], [place], [address] , [place]. tel:[phone] Referring Provider: Iker Feldman [address], [place], [place], [address]. tel:[phone] OFFICE/OUTPA TIENT VISIT, [facility], [address], [place], [place], [address], [place] tel:[phone] [facility] GERD1 (chief complaint)HLP1 (chief complaint)chron ic pain (chief complaint)insom nia1 (chief complaint) Hyperlipidemia Chronic pain syndromeGERD without esophagitisHyp othyroidism 6 Gaston Dong. [address], [place], [place], [address] , [place]. tel:[phone] Referring Provider: Franky Dunham [address], [place], [place], [address]. tel:[phone] OFFICE/OUTPA TIENT VISIT, [facility], [address], [place], [place], [address], [place] tel:[phone] [facility] chronic pain (chief complaint)anxie ty1 (chief complaint)GERD1 (chief complaint)CAD (chief complaint) Chronic pain syndromeOther insomniaCorona ry artery disease of [place] coronary artery without angina pectorisHyperl ipidemia 5 Gaston Dong. [address], [place], [place], [address] , [place]. tel:[phone] Referring Provider: Franky Dun[address], [place], [place], [address]. tel:[phone] OFFICE/OUTPA TIENT VISIT, [facility], [address], [place], [place], [address], [place] tel:[phone] [facility] right ankle pain (chief complaint)anxie ty1 (chief complaint) Chronic pain syndromeOther insomnia 5 Gaston Dong. [address], [place], [place], [address] , [place]. tel:[phone] Referring Provider: Franky Dun[address], [place], [place], [address]. tel:[phone] OFFICE/OUTPA TIENT VISIT, [facility], [address], [place], [place], [address], [place] tel:[phone] [facility] ankle pain1 (chief complaint)insom nia1 (chief complaint) Secondary osteoarthritis , right ankle and footOther insomnia 5 Gaston Dong. [address], [place], [place], [address] , [place]. [phone] Referring Provider: Iker Feldman [address], [place], [place], [address]. tel:[phone] OFFICE/OUTPA TIENT VISIT, [facility], [address], [place], [place], [address], [place] tel:[phone] [facility] ankle pain (chief complaint)insom alverto (chief complaint)CAD (chief complaint)gastr ic ulcer (chief complaint) Pain in right ankleOpioid dependence, uncomplicatedH ypertensive heart disease without heart failureChronic gastric ulcer without hemorrhage or perforationTob acco use 5 Gaston Dong. [address], [place], [place], [address] , [place]. tel:[phone] Referring Provider: Iker Feldman, [address], [place], [place], [address]. tel:[phone] OFFICE/OUTPA TIENT VISIT, [facility], [address], [place], [place], [address], [place] tel:[phone] [facility] HTN (chief complaint)gastr ic ulcer (chief complaint)insom alverto (chief complaint)hypot hyroidism (chief complaint) Insomnia, unspecifiedUns pecified hypothyroidism Unspecified essential hypertensionAc cahto gastric ulcer without mention of hemorrhage or perforation, with obstruction 5 Gaston Pickett [address], [place], [place], [address] , [place]. tel:[phone] Referring Provider: Franky Dunham [address], [place], [place], [address]. tel:[phone] OFFICE/OUTPA TIENT VISIT, [facility], [address] [place], [address], [place] tel:[phone] [facility] pain (chief complaint)anxie ty (chief complaint)hypot hyroidism (chief complaint)gERD (chief complaint) Insomnia, unspecifiedUns pecified hypothyroidism Unspecified essential hypertension 5 Gaston Pickett [address], [place], [place], [address] , [place]. tel:[phone] Referring Provider: Franky Dun[address], [place], [place], [address]. tel:[phone] OFFICE/OUTPA TIENT VISIT, [facility], [address], [place], [place], [address], [place] tel:[phone] [facility] chronic apin (chief complaint)anxie ty (chief complaint) Other chronic pain 5 Gaston Pickett [address], [place], [place], [address] , [place]. tel:[phone] Referring Provider: Franky Dun[address], [place], [place], [address]. tel:[phone] OFFICE/OUTPA TIENT VISIT, [facility], [address], [place], [place], [address], [place] tel:[phone] [facility] chronic pain (chief complaint)anxie ty (chief complaint) Ankle pain Bebeto-0 5 Gaston Dong. [address], [place], [place], [address] , [place]. tel:[phone] Referring Provider: Franky [address], [place], [place], [address]. tel:[phone] OFFICE/OUTPA TIENT VISIT, [facility], [address], [place], [place], [address], [place] tel:[phone] [facility] chronic pain (chief complaint)anxie ty (chief complaint)hypot hyroidism (chief complaint) Hypothyroidism Pain in joint involving lower legInsomnia, OtherScreening for malignant neoplasms of the prostate July-0 5 Gaston Dong. [address], [place], [place], [address] , [place]. tel:[phone] Referring Provider: Franky [address], [place], [place], [address]. tel:[phone] OFFICE/OUTPA TIENT VISIT, [facility], [address], [place], [place], [address], [place] tel:[phone] [facility] chronic pain (chief complaint)anxie ty (chief complaint)gastr ic ulcer (chief complaint)CAD (chief complaint) Insomnia, OtherCAD, [place] VesselAcute gastric ulcer without mention of hemorrhage or perforation, with obstructionOpi oid type dependence, unspecified use Apr-0 2 5 Gaston Dong. [address], [place], [place], [address] , [place]. tel:[phone] Referring Provider: Franky Dun[address], [place], [place], [address]. tel:[phone] OFFICE/OUTPA TIENT VISIT, [facility], [address], [place], [place], [address], [place] tel:[phone] [facility] chronic pain (chief complaint)insom alverto (chief complaint) Insomnia, OtherPain in joint involving lower legOpioid type dependence, unspecified useSedative, hypnotic or anxiolytic dependence, unspecified May-0 5 Gaston Dong. [address], [place], [place], [address] , [place]. tel:[phone] Referring Provider: Franky Dun[address], [place], [place], [address]. tel:[phone] OFFICE/OUTPA TIENT VISIT, [facility], [address], [place], [place], [address], [place] tel:[phone] [facility] chornic pain (chief complaint)anxie ty (chief complaint)HLP (chief complaint)hypot hyroidism (chief complaint) Hypothyroidism Insomnia, OtherOther and unspecified hyperlipidemia Pain in joint involving lower leg Fe- 5 Gaston Dong. [address], [place], [place], [address] , [place]. tel:[phone] Referring Provider: Franky Dun[address], [place], [place], [address]. tel:[phone] OFFICE/OUTPA TIENT VISIT, [facility], [address], [place], [place], [address], [place] tel:[phone] [facility] GERD (chief complaint)chron ic pain (chief complaint)anxie ty (chief complaint)HLP (chief complaint) Hypothyroidism CAD, [place] VesselPain in joint involving lower legHypertensio n, Unspecified 5 Gaston Dong. [address], [place], [place], [address] , [place]. [phone] Referring Provider: Iker Feldman, [address], [place], [place], [address]. tel:[phone] OFFICE/OUTPA TIENT VISIT, [facility], [address], [place], [place], [address], [place] [phone] [facility] chronic pain (chief complaint)Anxie ty (chief complaint)HLP (chief complaint) Other and unspecified hyperlipidemia Pain in joint involving lower leg 4 Gaston Dong. [address], [place], [place], [address] , [place]. [phone] Referring Provider: Iker Feldman, [address], [place], [place], [address]. tel:[phone] OFFICE/OUTPA TIENT VISIT, [facility], [facility] [address], [place], [place], [address], [place] tel:[phone] [facility] HLP (chief complaint)chron ic pain (chief complaint)anxie ty (chief complaint)HTN (chief complaint)CAD (chief complaint)GERD (chief complaint) Hypothyroidism CAD, [place] VesselHyperten jayleen, UnspecifiedCHR ONIC PAIN NEC 4 Gaston Dong. [address], [place], [place], [address] , [place]. [phone] Referring Provider: Franky Dunham [address], [place], [place], [address]. tel:[phone] OFFICE/OUTPA TIENT VISIT, [facility], [address], [place], [place], [address], [place] tel:[phone] [facility] chronic pain (chief complaint)anxie ty (chief complaint) Hypothyroidism Pain in joint involving lower leg 4 Gaston Dong. [address], [place], [place], [address] , [place]. tel:[phone] Referring Provider: Iker Feldman [address], [place], [place], [address]. tel:[phone] OFFICE/OUTPA TIENT VISIT, [facility], [address], [place], [place], [address], [place] [phone] [facility] chronic pain (chief complaint)anxie ty (chief complaint)GERD (chief complaint)CAD (chief complaint) Pain in joint involving lower legCAD, [place] VesselAcute gastric ulcer without mention of hemorrhage or perforation, with obstructionHyp othyroidism 4 Gaston Dong. [address], [place], [place], [address] , [place]. tel:[phone] Referring Provider: Franky Dun[address], [place], [place], [address]. tel:[phone] OFFICE/OUTPA TIENT VISIT, [facility], [address], [place], [place], [address], [place] [phone] [facility] chornic pain (chief complaint)anxie ty (chief complaint)HTN (chief complaint) CHRONIC PAIN NECHypertensio n, Unspecified 4 Gaston Dong. [address], [place], [place], [address] , [place]. [phone] Referring Provider: Franky Dunham [address], [place], [place], [address]. tel:[phone] OFFICE/OUTPA TIENT VISIT, [facility], [address], [place], [place], [address], [place] [phone] [facility] GERD (chief complaint)chorn ic pain (chief complaint)anxie ty (chief complaint) GERDCHRONIC PAIN NEC 4 Gaston Dong. [address], [place], [place], [address] , [place]. [phone] Referring Provider: Franky Dun[address], [place], [place], [address]. tel:[phone] OFFICE/OUTPA TIENT VISIT, [facility], [address], [place], [place], [address], [place] tel:[phone] [facility] gastric ulcer (chief complaint)chorn ic pain (chief complaint)anxie ty (chief complaint)hypot hyroidism (chief complaint) Acute gastritis (without mention of hemorrhage)CHR ONIC PAIN NECPain in joint involving lower legHypothyroid ism 4 Gaston Dong. [address], [place], [place], [address] , [place]. [phone] Referring Provider: Franky Dun[address], [place], [place], [address]. tel:[phone] OFFICE/OUTPA TIENT VISIT, [facility], [address], [place], [place], [address], [place] tel:[phone] [facility] chornic pain (chief complaint)anxie ty (chief complaint)gastr ic ulcer (chief complaint)CAD (chief complaint) Acute gastric ulcer without mention of hemorrhage or perforation, with obstructionPai n in joint involving lower legCAD, [place] 4 Gaston Dong. [address], [place], [place], [address] , [place]. [phone] Referring Provider: Franky Dunham [address], [place], [place], [address]. tel:[phone] OFFICE/OUTPA TIENT VISIT, [facility], [address], [place], [place], [address], [place] tel:[phone] [facility] HLP (chief complaint)CAD (chief complaint)hemat uria (chief complaint)chorn ic pain (chief complaint)anxie ty (chief complaint) Other and unspecified hyperlipidemia CAD, [place] VesselHEMATURI A NOSPain in joint involving lower leg 4 Gaston Dong. [address], [place], [place], [address] , [place]. [phone] Referring Provider: Franky Dunham [address], [place], [place], [address]. tel:[phone] OFFICE/OUTPA TIENT VISIT, [facility], [address], [place], [place], [address], [place] tel:[phone] [facility] hematuria (chief complaint)hypot hyroidism (chief complaint)chron ic painPt (chief complaint) HEMATURIA NOSCHRONIC PAIN NECHypothyroid ism Mar-0 4 Gaston Dong. [address], [place], [place], [address] , [place]. tel:[phone] Referring Provider: Iker Feldman, [address], [place], [place], [address]. tel:[phone] OFFICE/OUTPA TIENT VISIT, [facility], [address], [place], [place], [address], [place] tel:[phone] [facility] chronic pain (chief complaint)HLP (chief complaint)Anxie ty (chief complaint)hemtu valerio (chief complaint) CHRONIC PAIN NECHypothyroid ismOther and unspecified hyperlipidemia HEMATURIA NOS Feb- 4 Gaston Dong. [address], [place], [place], [address] , [place]. tel:[phone] Referring Provider: Franky Dunham [address], [place], [place], [address]. tel:[phone] OFFICE/OUTPA TIENT VISIT, [facility], [address], [place], [place], [address], [place] tel:[phone] [facility] CAD (chief complaint)chorn ic pain (chief complaint)anxie ty (chief complaint)Hypot hyroidism (chief complaint) Hypothyroidism CAD, [place]esselOther and unspecified hyperlipidemia CHRONIC PAIN NEC 4 Gaston Dong. [address], [place], [place], [address] , [place]. tel:[phone] Referring Provider: Franky Dunham [address], [place], [place], [address]. tel:[phone] OFFICE/OUTPA TIENT VISIT, [facility], [address], [place], [place], [address], [place] tel:[phone] [facility] chronic pain (chief complaint)anxie ty (chief complaint) CHRONIC PAIN NEC Dec- 3 Gaston Dong. [address], [place], [place], [address] , [place]. [phone] Referring Provider: Franky Dun[address], [place], [place], [address]. tel:[phone] OFFICE/OUTPA TIENT VISIT, [facility], [address], [place], [address], [place] [phone] [facility] chronic pain (chief complaint)anxie ty (chief complaint) CHRONIC PAIN NECHypothyroid ismOther and unspecified hyperlipidemia 3 Gaston Dong. [address], [place], [place], [address] , [place]. [phone] Referring Provider: Franky Dunham [address], [place], [place], [address]. tel:[phone] OFFICE/OUTPA TIENT VISIT, [facility], [address], [place], [place], [address], [place] tel:[phone] [facility] hypothyroidism (chief complaint)Chron ic pain (chief complaint)anxie ty (chief complaint) Hypothyroidism Other and unspecified hyperlipidemia CAD, [place] Dec-0 3 Gaston Pickett [address], [place], [address] , [place]. [phone] Referring Provider: Franky Dunham [address], [place], [place], [address]. tel:[phone] OFFICE/OUTPA TIENT VISIT, [facility], [address], [place], [place], [address], [place] tel:[phone] [facility] chronic pain (chief complaint)anxie ty (chief complaint) CHRONIC PAIN NECHypothyroid ismOther and unspecified hyperlipidemia Sep-0 3 Gaston Dong. [address], [place], [place], [address] , [place]. tel:[phone] Referring Provider: Iker Feldman, [address], [place], [place], [address]. tel:[phone] OFFICE/OUTPA TIENT VISIT, [facility], [address], [place], [place], [address], [place] tel:[phone] [facility] Hypothyroidism (chief complaint)CAD (chief complaint)chron ic pain (chief complaint) Hypothyroidism CAD, [place] VesselCHRONIC PAIN NEC 3 Gaston Dong. [address], [place], [place], [address] , [place]. tel:[phone] Referring Provider: Franky Dunham [address], [place], [place], [address]. tel:[phone] OFFICE/OUTPA TIENT VISIT, [facility], [address], [place], [place], [address], [place] tel:[phone] [facility] CAD (chief complaint)chron ic pain (chief complaint)anxie ty (chief complaint) CAD, [place] VesselCHRONIC PAIN NECInsomnia, Other 3 Gaston Dong. [address], [place], [place], [address] , [place]. tel:[phone] Referring Provider: Franky Dunham [address], [place], [place], [address]. tel:[phone] OFFICE/OUTPA TIENT VISIT, [facility], [address], [place], [place], [address], [place] tel:[phone] [facility] CAD (chief complaint)Chron ic pain (chief complaint)anxie ty (chief complaint) CAD, [place] VesselCHRONIC PAIN NECHypothyroid ism 3 Gaston Dong. [address], [place], [place], [address] , [place]. tel:[phone] Referring Provider: Franky Dunham [address], [place], [place], [address]. tel:[phone] OFFICE/OUTPA TIENT VISIT, [facility], [address], [place], [place], [address], [place] tel:[phone] [facility] chronic pain (chief complaint)anxie ty (chief complaint)Hypot hyroidism (chief complaint) Hypothyroidism CHRONIC PAIN NEC May-0 2-201 3 Gaston Dong. [address], [place], [place], [address] , [place]. tel:[phone] Referring Provider: Iker Feldman, [address], [place], [place], [address]. tel:[phone] OFFICE/OUTPA TIENT VISIT, [facility], [address], [place], [place], [address], [place] tel:[phone] [facility] chornic pain (chief complaint)Anxie ty. (chief complaint)hypot hyroidism (chief complaint) Hypothyroidism CHRONIC PAIN NECRESTLESS LEGS SYNDROME Apr-0 5201 3 Gaston Dnog. [address], [address], [place], [place], [address] , [place]. tel:[phone] Referring Provider: Franky Dunham [address], [place], [place], [address]. tel:[phone] OFFICE/OUTPA TIENT VISIT, [facility], [address], [place], [place], [address], [place] tel:[phone] [facility] chronic pain (chief complaint)viral (chief complaint)Anxie ty (chief complaint) Viral Infection, UnspecifiedCHR ONIC PAIN NECHypothyroid ism Mar-0 4-201 3 Gaston Dong. [address], [address], [place], [place], [address] , [place]. tel:[phone] Referring Provider: Franky Dunham [address], [place], [place], [address]. tel:[phone] OFFICE/OUTPA TIENT VISIT, [facility], [address], [place], [place], [address], [place] tel:[phone] [facility] chronic pain (chief complaint)Anxie ty (chief complaint)hypot hyroidism (chief complaint)ED (chief complaint) Hypothyroidism CHRONIC PAIN NECErectile Dysfunction Fe 3 Gaston Pickett [address], [address], [place], [place], [address] , [place]. tel:[phone] Referring Provider: Franky Dunham [address], [place], [place], [address]. tel:[phone] OFFICE/OUTPA TIENT VISIT, [facility], [address], [place], [place], [address], [place] tel:[phone] [facility] hypothyroidism (chief complaint)chron ic pain (chief complaint) CHRONIC PAIN NECHypothyroid ismRESTLESS LEGS SYNDROME 3 Gaston Pickett [address], [address], [place], [place], [address] , [place]. [phone] Referring Provider: Franky Dunham [address], [place], [place], [address]. tel:[phone] OFFICE/OUTPA TIENT VISIT, [facility], [address], [place], [place], [address], [place] tel:[phone] [facility] chronic pain (chief complaint)restl ess leg syndrome (chief complaint)anxie ty (chief complaint) CHRONIC PAIN NECRESTLESS LEGS SYNDROME 2 Gaston Pickett [address], [address], [place], [place], [address] , [place]. [phone] Referring Provider: Franky Dunham [address], [place], [place], [address]. tel:[phone] OFFICE/OUTPA TIENT VISIT, [facility], [address], [place], [place], [address], [place] tel:[phone] [facility] chronic pain (chief complaint)restl ess leg (chief complaint) RESTLESS LEGS SYNDROMECHRONI C PAIN NEC 2 Gaston Pickett [address], [address], [place], [place], [address] , . tel:[phone] Referring Provider: Iker Feldman, [address], [place], [place], [address]. tel:[phone] OFFICE/OUTPA TIENT VISIT, EST [facility], [address], [place], [place], [address], [place] tel:[phone] [facility] Medicine chornic pain (chief complaint)anxie ty (chief complaint)insom alverto (chief complaint) Insomnia, OtherCHRONIC PAIN NECRESTLESS LEGS SYNDROME 0-201 2 Gaston Dong. [address], [address], [place], [place], [address] , [place]. tel:[phone] Referring Provider: Iker Feldman, [address], [place], [place], [address]. tel:[phone] Family History Family Member Type Diagnosis Age At Onset Father Problem (finding) Cancer - colon CA Mother Problem (finding) Alive and well Brother Problem (finding) Coronary artery disease Brother Problem (finding) Other Payers Payer name Insurance type Covered alliance party ID Authoriza ticlaudette(s) [facility] CI [id number] Social History Type Description Quantity Date Captured Comments Alcohol Use Details Caffeine Use Details Unknown Tobacco Use Status Heavy cigarette smoker Smoking Status Heavy tobacco smoker Sex Male Vital Signs Date / Time: Height Weight BMI Pulse Rate Blood Pressure Temperature Respiratory Rate Body Surface Area Head Circumference BMI percentile Pulse Ox Inhaled Ox 2:28 PM 68.00 in 164.40 lbs 25.0 0 kg/m eter (2) 61 /min 100/60 mm[Hg] 98.0 F 16 /min Chief Complaint And Reason For Visit From encounter dated '10/14/2024 14:14'. pain (chief complaint). Description: Pt has chronic right ankle pain. Pt has arthritis. Pt failed NSAID and ultram pt takes norco PRn for pain and doing ok. Pt denies any worsening pain. Pt denies any neuropathy anemia1 (chief complaint). Description: Pt has chronic anxiety and insomnia. Pt takes xanax qhs PRnand doing ok, Pt denies any depression or any suicidal thought. Pt denies any crying spells Pt doing ok with xanax qhs PRN uTI1 (chief complaint). Description: Pt has acute cystitis with hematuria Pt denies any urinary symptoms Pt is currently being treated for bladder CA Plan Of Treatment Date Type Action Status Goal Cognitive assessment. Due on due Goal Colonoscopy. Due on due Goal Zoster vaccine. Due on due Goal Influenza vaccine. Due on due Goal FOBT. Due on due Goal Sigmoidoscopy. Due on due Goal Abdominal ultrasound. Due on due Goal Tdap. Due on due Goal PSA. Due on due Goal Depression screening. Due on due Goal Pneumococcal vaccine. Due on due Goal Lipid panel. [...] on due Goal Influenza vaccine. Due on Ap due Goal FOBT. Due on due Goal [...] on due Goal Influenza vaccine. Due on Az due Goal FOBT. Due on due Goal [...] Influenza vaccine. Due on Oc due Goal Lipid panel. Due on due [...] Influenza vaccine. Due on Oc due Goal Special diet education compl eted [...] Td vaccine. Due on 18 due Goal Special diet education compl eted [...] Goal Colonoscopy. Due on 017 due Goal Td vaccine. Due on due [...] Goal Colonoscopy. Due on 016 due Goal Tdap. Due on due Goal Zoster vaccine. Due on due Goal Sigmoidoscopy. Due on due Goal FOBT. Due on due Goal Tdap. Due on due Goal Td vaccine. Due on 16 due Goal Sigmoidoscopy. Due on due Goal Zoster vaccine. Due on due Goal Colonoscopy. Due on 016 due Goal PSA. Due on due Goal [...] Goal Colonoscopy. Due on 016 due Goal PSA. Due on due Goal [...] Goal Colonoscopy. Due on 016 due Goal Sigmoidoscopy. Due on due Goal Influenza vaccine. Due on due Goal PSA. Due on due Goal Depression screening. Due on due Goal Colonoscopy. Due on 016 due Goal Influenza vaccine. Due on due Goal PSA. Due on due Goal Sigmoidoscopy. Due on due Goal Td vaccine. Due on 16 due Goal Zoster vaccine. Due on due Goal FOBT. Due on due Goal Tdap. Due on due Goal Sigmoidoscopy. Due on due Goal FOBT. Due on due Goal Depression screening. Due on due Goal PSA. Due on due Goal Td vaccine. Due on 15 due Goal Influenza vaccine. Due on due Goal Colonoscopy. Due on 015 due Goal Zoster vaccine. Due on due Goal Tdap. Due on due Goal Tdap. Due on due Goal Zoster vaccine. Due on due Goal Colonoscopy. Due on 015 due Goal Depression screening. Due on due [...] Td vaccine. Due on 15 due Goal FOBT. Due on due Goal [...] ordered Referral Referred To: Suzanne Beckham [address], [place] [id number] Ordered: Referrals: Allopathic & Osteopathic Physicians : Urology. Suzanne Beckham. 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 GRISELDA RAWLS. Evaluate and treat ordered Referral Ordered: CT THORAX W/O DYE ordered Referral Ordered: Referral: [facility]. Evaluate and treat. ordered Referral Ordered: Referral: Urology. Evaluate and treat. ordered Referral Ordered: US THYROID ordered Appointment Bhanu Álvarez BOOKED Appointment Bhanu Álvarez BOOKED History Of Present Illness Encounter Date Complaint History Of Prese nt Illness uTI1 Pt has acute cys titis with hematuria Pt denies any urinary symptoms Pt is currently being treated for bladder CA pain Pt has chronic r ight ankle pain. Pt has arthritis. Pt failed NSAID and ultram pt takes norco PRn for pain and doing ok. Pt denies any worsening pain. Pt denies any neuropathy anemia1 Pt has chronic a nxiety and insomnia. [...] Pt doing ok with xanax qhs PRN. HLP Pt has HLP Pt ta kes lipitor and his lipid profile is ok Pt denies any myalgia thyroid1 Pt has hypothyro idism. Pt takes synthroid and TSh ok Pt denies any dysphagia or neck pain physical Pt needs annual physical .Pt has [...] any worsening pain. Pt denies any neuropathy GERD1 Pt has long carlotta ding history [...] any abd pain with radiation to back insomnia1 Pt has chronic a nxiety and [...] any worsening pain. Pt denies any neuropathy physical Pt needs annual physical .Pt has [...] told that he is cancer free. Pt insomnia1 Pt has chronic a nxiety and [...] with xanax qhs PRN tobacco1 Pt has prison smoking history. Pt denies any hemoptysis, worsening [...] denies any neuropathy COPD1 Pt has COPD .Pt still smoking [...] doing ok. He denies any chest pain insomnia1 Pt has [...] but benign per patient. Pt had colonoscopy 2016 which was benign without polyp He was [...] has bladder C A Pt supposes to [facility] urology but his cezar was again canceled. Pt did call urology at [facility] who he used to see [...] A. Pt was referred to urology of [facility] and he tried to call for cezar but urology kept telling her that they will call her back but they never did. Pt denies any urinary symptoms thyroid1 Pt has hypothyro idism Pt takes [...] per week Pt denies any acute sob insomnia Pt has chronic a nxiety and [...] any worsening pain. 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 [...] worsening pain Pt failed NSAID and ultram COPD1 Pt has COPD. Pt still smoking [...] and doing ok. Pt denies any snoring lung Pt denies any he moptysis, cough [...] go back for more surgery next week vitamin D1 Pt has low D. pt [...] smoking. Pt denies any coughing or hemoptysis hypothyroidism1 Pt has low thyro id Pt doing ok with synthroid. CAD1 Pt sees cardiolo gy. Pt takes coreg, lisinopril and also lipitor. pt denies any myalgia. Pt denies any chest pain chronci pain1 Pt has chronic r ight ankle pain Pt takes norco PRN for pain daily. pt has history of right ankle fracture Pt doing ok with current meds. Pt failed NSAID and ultram insomnia1 Pt [...] or depression or any suicidal thought chronic pain1 [...] and he is seeing Dr. Junior in [place] and he will have the mass removed [...] who is a urologist in [facility] who did the cysto and he told me the renal lesion is almost 100% sure a benign cyst. He did take the Ct to his radiologist over [facility] However, he is not in network [...] 1 Pt just seen uro logy in [facility]. He will do cystoscopy. pt has not done MRi yet chronic pain Pt has chronic r ight ankle pain Pt has history of fracture Pt failed NSAID Pt denies any worsening pain insomnia1 Pt has insomnia Pt takes xanax qhs PRn and doing ok. Pt denies any snoring kidney1 Pt recently had CT of chest/abd/pelvis. [...] ultram and codeine Cervantes Pt has cervantes salome mcgeeag. Pt takes omeprzole. pt deneis any GERd [...] to schedule for CT of chest but [facility] will not do it. Pt denies any [...] anysymptoms HLP1 Pt has HLP. Pt t akvalentino lipitor. Pt denies any myalgia. Pt has [...] takes norco for pain which works ok. gastric ulcer Pt atkes omepraz ole. Pt [...] or chest pain or headache or palpitation HTN Pt takes lisinop ril 10 mg daily and also coreg 1/2 of 3.125 mg BID and his BP is stable. He has CAD with stent and he is on ASA and plavix. Pt is off statin per cardiology. Pt has been eating fiber and healthy per himself. Pt denies any chest pain pain Pt [...] to Emphy sema Quit smoking Related to Emphy sema Quit [...] ic pain syndrome Quit smoking Related to [place] tt's esophagus without dysplasia Prescribed Activity and Exercise Education Related to Dietary Surveillance and Counseling Prescribed Diet Educ ation/Lifestyle Education Regarding Diet Related to Dietary Surveillance and Counseling Prescribed Activity and Exercise Education Related to Dietary Surveillance and Counseling Prescribed Diet Educ ation/Lifestyle Education Regarding Diet Related to Dietary Surveillance and Counseling Quit smoking Related to Insom alverto Prescribed Diet Educ ation/Lifestyle Education Regarding Diet Related to Dietary Surveillance and Counseling Quit smoking Related to [place] tt's esophagus without dysplasia Prescribed Activity and Exercise Education Related to Dietary Surveillance and Counseling Quit smoking Related to Insom alverto Quit [...] Surveillance and Counseling exercise Related to CAD, [place] Vessel Assessments Type Assessment Date assessment Chronic pain syndrome assessment Other insomnia assessment Anemia assessment Acute cystitis with hematuria Au Mental Status Date Cognitive Assessment Orientation - [place] ed to time, place, person, situation.
[2024-10-20 14:44] VITALS: BMI 23.8
--- NOTE | 2024-10-20 14:59 | PC.NURSE ---
Report to the Outpatient Waiting Room, entrance under the green pavilion located off [facility], at time _1100am on date _11/06/24 . Planned Procedure Time: _100pm . ? ( aware this later than last few appts) Time changes happen often and if your time is changed the preop area will call you the afternoon before. - You and your visitor will be asked to self-screen and do not enter if you have any COVID symptoms. Please call surgeon if you need to reschedule. - A mask is optional within the hospital at this time. Patients may have clear liquids (water, carbonated beverages, clear teas, apple juice) until 3 hours prior to surgery with a maximum of 20 ounces. - No food from midnight until time of surgery and no smoking, or chewing tobacco (or any form of nicotine). No chewing gum, candy or mints.(1000am) Take only the following medications with a SIP of water on the morning of surgery: ___Coreg, Levothyroxine, Ellipta Inhaler, Xanax as needed, Hydrocodone if needed DO NOT STOP ANY OF YOUR OTHER PRESCRIPTION MEDICATIONS PRIOR TO SURGERY EXCEPT THE FOLLOWING Hold all vitamins and supplements for [address] Gilliam, except for Calcium per states. . Medications to discontinue per physician HOLD ASPIRIN and Plavix throughout treatment per Dr Gilliam and Dr Gresham. Date to take last dose___09/30/24 Please no make-up, nail grenadian, hairspray, perfume, deodorant, or body powder the day of surgery.? No jewelry (including any body piercings) or valuables the day of surgery, leave them at home.? Please take a shower or bath the night before, or the morning of, surgery with an antibacterial soap.? Wear comfortable, loose fitting clothing.? - Jewelry must be removed prior to entering the operating room.? Rings and piercings that are not removed may be cut off. - The hospital will not accept responsibility for valuables.? - Please leave all valuables, including medications, at home the day of surgery. If you are going home after surgery, a licensed special education bus driver must drive you home.? - NO public transportation without another adult if you receive anesthesia. - We recommend that an adult stay with you for 24 hours following discharge. - We also recommend that you do not drive, make important decision, drink alcoholic beverages, or take any drugs that were not prescribed by your health care provider for at least 24 hours after your discharge time. Follow any additional instructions given to you from your surgeon. Telephone instructions given to ___wife Raven and asked if any additional questions and then verbalized understanding. Patient advised to call surgeon office or pre surgery nurse liaison [phone] if any additional questions.
--- OUTSIDE RECORDS SUMMARY | 2024-11-05 11:00 | XMS_ITS | Encounter Summary ---
Author Organization [facility] Healthcare Address [address] [place] [address] Care Team Providers Care Supervisor Frame Assembly Name Role Phone Iker Feldman MD Primary Care Provider [phone] Iker Feldman MD Unavailable [phone] Reason for Referral * Diagnostic Imaging (Routine) - Pending Review Specialty Diagnoses / Procedures Referred By Contac t Referred To Contact Diagnoses Coronary artery disease involving [place] coronary artery of [place] heart without angina pectoris History of ST elevation myocardial infarction (STEMI) Status post angioplasty with stent Procedures NM MPI SPECT (Rest and/or Stress) Multiple Studies Juan Gresham MD [address] [place] [address], [address] [address] Phone: tel: fax: Referral ID Status Reason Start Date Expiration Date V isits Requested Visits Authorized [id number] Pending Review 11/05/2024 12/05/2025 1 1 * Cardiology (Routine) - Pending Review Specialty Diagnoses / Procedures Referred By Contac t Referred To Contact Diagnoses Coronary artery disease involving [place] coronary artery of [place] heart without angina pectoris Procedures Transthoracic Echo (TTE) Complete W Doppler/CF Juan Gresham MD [address] [place] [address], [address] [place] [address] Phone: tel: fax: [facility] [address] [facility] [address] [place] [address] Phone: tel: fax: Referral ID Status Reason Start Date Expiration Date V isits Requested Visits Authorized [id number] Pending Review 11/05/2024 12/05/2025 1 1 Reason for Visit * Reason Comments Pre-op Exam Hernia repair schedu led on 01/14/25 Coronary Artery Disease Encounter Details Date Type Department Care Team (Late st Contact Info) Description 11/05/2024 11:00 AM CDT Office Visit [facility]iology [address] [place] [address] Juan Gresham MD [address] [facility] [address] [place] [address], [address] [place] [address] Coronary artery disease involving [place] coronary artery of [place] heart without angina pectoris (Primary Dx); History of ST elevation myocardial infarction (STEMI); Status post angioplasty with stent; Cigar smoker Social History Tobacco Use Types Packs/Day Years Used Date Smoking Tobacco: Every Day Pipe Smokeless Tobacco: Never Alcohol Use Standard Drinks/Week Comments Yes 1 (1 standard drink = 0.6 oz pur e alcohol) Sex and Gender Information Value Date Recorded Sex Assigned at Not on file 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 Gender Identity Not on file Sexual Orientation Not on file documented as of this encounter Last Filed Vital Signs Vital Sign Reading Time Taken Comments Blood Pressure 102/50 11/05/2024 10:55 AM CDT Pulse 60 11/05/2024 10:55 AM CDT Temperature - - Respiratory Rate - - Oxygen Saturation 96% 11/05/2024 10:55 AM CDT Inhaled Oxygen Concentration - - Weight 75.4 kg (166 lb 3.2 oz) 11/05/2024 10:55 AM CDT Height 172.7 cm (5' 8) 11/05/2024 10:55 AM CDT Body Mass Index 25.27 11/05/2024 10:55 AM CDT documented in this encounter Ordered Prescriptions Prescription Sig Dispense Quantity Refills Last Filled Start Date End Date atorvastatin (LIPITOR) 80 mg tabletIndications: Coronary artery disease involving [place] coronary artery of [place] heart without angina pectoris Take 1 tablet (80 mg total) by mouth nightly 90 tablet 6 11/05/2024 documented in this encounter Progress Notes * Juan Gresham MD - 11/05/2024 11:00 AM CDT [facility] FOLLOW UP 11/05/2024 Chief Complaint Patient presents with Pre-op Exam Hernia repair scheduled on 01/14/25 Coronary Artery Disease 69 y.o. male with CAD, history of anterolateral STEMI (s/p Pry PCI/DESx2 diagnal branch on 08/01/12,staged PCI/DESX2 RCA on 09/06/12), dyslipidemia, erectile dysfunction, ca bladder and tobacco abuse.He was admitted to [facility] and 08/01/2012 with substernal chest pain. EKG showed sinus bradycardia, ST elevation in leads V2 to V5. He underwent PCI with thrombectomy, PTCA and placement of 2 drug-eluting stents in major diagonal branch. Staged intervention on diffusely diseased RCA was performed on 09/06/2012 with placement of 2 drug- eluting stents. Patient has done remarkably well postintervention. Patient was seen in [facility] on 05/26/2015 with atypical chest pain. His EKG did not show any acute changes. He was ruled out for [place] by serial negative cardiac biomarkers. 03/20/2018- He is here for the followup visit accompanied by his . He reports that he was diagnosed with bladder cancer in August 2017 and has been following up with a urologist at [place], [place]. From cardiac standpoint, he has been doing well. He denies any angina. Heuses cane for walking, gives history of remote right knee fracture. Reports compliance with currentmedical regimen. Unfortunately patient continues to smoke, uses pipe for smoking, smokes cigars as well. 03/19/2019-patient is here for the routine follow-up visit. He denies chest pain, has dyspnea on moderate exertion. No palpitation, dizziness or syncope. He reports compliance with current medical regimen. Continues to smoke and has been historically reluctant for smoking cessation, although at present, he states that he is trying to quit. He is not interested in pharmacotherapy assisted smoking cessation. Patient states that he is also currently undergoing treatment for bladder cancer. 03/24/2020-on the follow-up visit today, patient denies any chest pain. Patient states that he is able to walk 2-3 blocks without any difficulty. He has had sedentary lifestyle. Patient states that he was diagnosed with bladder cancer, and is under urological care. He continues to smoke, although he has cut down on the number of cigarettes to 2-3 cigarettes per day. His smokes as well. Reports compliance with current medical regimen 10/13/2020-since last office visit, patient states that he was admitted to [facility] on 09/14/2020 with nausea vomiting and presyncope. Was found to be dehydrated and had DWIGHT with creatinine of 2.7, which normalized at the time of hospital discharge. He was found to have sinus bradycardia with heart rates in 40s during hospitalization. He had 1 week event monitor after hospital discharge which showed predominantly sinus rhythm. Patient states that he is feeling back to normal now, and denies any ongoing chest pain or shortness of breath for his level of activity. He uses cane for walking. Continues to smoke tobacco through pipe. Patient is not willing to quit. 10/11/2022-patient is here for follow-up visit accompanied by his . He uses cane for walking. He denies chest pain. He is dyspnea on exertion, unable to quantify the distance. He states that he has had repeated bladder surgeries for bladder cancer. He follows up with Urology and Oncology. Reports compliance with current medical regimen. Denies any bleeding complications. Continues to smoke. Not interested in smoking cessation. 11/05/2024-patient is here for the follow-up visit accompanied by his . He denies chest pain . Patient has baseline dyspnea on exertion but is unable to quantify the distance. Patient seems to have sedentary lifestyle. He reports compliance with current medical regimen. Continues to smoke heavily, smokes 4-5 cigarettes per day. He wants to quit on his own, not interested in pharmacotherapy assisted smoking cessation. Patient states that he is anticipating bladder and hernia surgery soon. REVIEW OF SYSTEMS General ROS: negative for - Fever, chills, fatigue Psychological ROS: negative for - anxiety, depression Ophthalmic ROS: Right eye blind (h/o trauma) ENT ROS: negative for - epistaxis, headaches, nasal congestion Respiratory ROS: negative for - cough, hemoptysis, wheezing Cardiovascular ROS: negative for - chest pain; positive for dyspnea on moderate exertion Gastrointestinal ROS: negative for - abdominal pain Hematological and Lymphatic ROS: negative for - bleeding problems, bruising Endocrine ROS: negative for - hot flashes, polydipsia/polyuria Allergy and Immunology ROS: negative for - hives, postnasal drip Musculoskeletal ROS: Right knee pain, uses cane for walking Neurological ROS: negative for - gait disturbance, weakness, syncope Dermatological ROS: negative for pruritus, rash HOME MEDICATIONS Allergies Allergen Reactions Propoxyphene Hives Other Other (See comments) JAXJENNIFER DIZZY PASSED OUT Current Outpatient Medications Medication Sig Dispense Refill albuterol HFA (PROVENTIL HFA,VENTOLIN HFA,PROAIR HFA) 90 mcg/actuation inhaler Inhale 2 puffs every4 (four) hours as needed for wheezing ALPRAZolam (XANAX) 1 mg tablet Take 1 tablet (1 mg total) by mouth nightly as needed for anxiety aspirin (ASPERDRINK) 81 mg tablet, effervescent take 1 by Oral route 0 carvediloL (COREG) 3.125 mg tablet Take 1 tablet (3.125 mg total) by mouth 2 (two) times a day withmeals 180 tablet 3 cholecalciferol (VITAMIN D-3) 94578 unit tablet Take 1 tablet (50,000 Units total) by mouth once a week clopidogreL (PLAVIX) 75 mg tablet TAKE ONE TABLET BY MOUTH DAILY 90 tablet 0 HYDROcodone-acetaminophen (NORCO) 10-325 mg per tablet Take 1 tablet by mouth every 6 (six) hours as needed for pain levothyroxine (SYNTHROID, LEVOTHROID) 88 mcg tablet Take 1 tablet (88 mcg total) by mouth miner assistant before breakfast lisinopriL (PRINIVIL,ZESTRIL) 10 mg tablet TAKE ONE TABLET BY MOUTH EVERY DAY 90 tablet 0 nitroglycerin (NITROSTAT) 0.[address] 1 tablet (0.4 mg total) under the tongue every 5 (five) minutes as needed for chest pain Up to 3 doses [address] (PROTONIX) 20 mg EC tablet Take 1 tablet (20 mg total) by mouth daily umeclidinium (INCRUSE ELLIPTA) 62.5 mcg/actuation blister with device 1 puff (62.5 mcg total) daily atorvastatin (LIPITOR) 80 mg tablet Take 1 tablet (80 mg total) by mouth nightly 90 tablet 6 No current facility-administered medications for this visit. 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 s/p PTCA/ 3x38 mm MEENAKSHI prx-mid and 2.5x16 mm MEENAKSHI distal RCA.) - 09/06/2012 PCI (100% thrombotic occlusion proximal segment major diagonal branch. small to medium size OM1 branch with 90% tandem lesions, moderate to severe diffuse disease RCA. LVEF 55- 60%. S/P Pry PCI/2.25X18 and 2.25x12 mm MEENAKSHI major diagonal branch.) - 08/01/2012 ECHO/MUGA: Echo (Normal LV size and wall thickness, EF 55-60%, grade 1 diastolic dysfunction. Trace AI. Dr. Calvin) - 05/26/2015 STRESS TESTS: MPI (No Ischemia, EF 70%.) - 02/09/2016 VASCULAR: Carotid Duplex (less than 50% stenosis bilateral ICA) - 05/26/2015 Lipid panel-total cholesterol 124, HDL 47, triglycerides 112, LDL 55. 03/28/2017 Lipid panel-total cholesterol 129, HDL 48, triglycerides 119, LDL 57. 03/19/2019 Lipids-total cholesterol 115, HDL 30, triglycerides 145, LDL 56. 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 09/16/2020-09/22/2020 Dr. Sal EKG-sinus bradycardia, heart rate 58 beats per minute, incomplete RBBB, QTC 474 milliseconds. 07/28/2022; [facility] Lipids-total cholesterol 100, HDL 25, triglycerides 100, LDL 56, glucose 120. 10/11/2022 EKG-sinus bradycardia, heart rate 55 beats per minute, rightward axis, old anteroseptal infarct. 11/05/2024 Lipids-total cholesterol 116, HDL 40, triglycerides 92, LDL 58, glucose 111. 11/05/2024 PHYSICAL EXAM Vitals BP 102/50 (BP Location: Right arm, Patient Position: Sitting) Pulse 60 Ht 172.7 cm (5' 8) Wt 75.4 kg (166 lb 3.2 oz) SpO2 96% BMI 25.27 kg/m?? General appearance - alert, no distress, oriented to time, place, person ; smells smoke Mental status - affect appropriate to mood Eyes - extraocular eye movements intact, right eye blind Ears - external ears appear normal, hearing grossly normal Nose - normal and patent, no discharge Mouth - mucous membranes moist, tongue normal Neck - supple, carotids upstroke normal bilaterally, no bruits, no JVD Chest - coarse breath sounds Heart - normal rate, regular rhythm, normal S1, S2, no audible murmurs Abdomen - soft, nontender Neurological - alert, oriented, normal speech, no gross motor deficits Musculoskeletal - no major deformity, no amputations Extremities - no pedal edema, no clubbing or cyanosis Skin - no rashes (on the exposed areas), no cyanosis ASSESSMENT Diagnoses and all orders for this visit: Coronary artery disease involving [place] coronary artery of [place] heart without angina pectoris (Primary) - atorvastatin (LIPITOR) 80 mg tablet; Take 1 tablet (80 mg total) by mouth nightly - Transthoracic Echo (TTE) Complete W Doppler/CF; Future - NM MPI SPECT (Rest and/or Stress) Multiple Studies; Future History of ST elevation myocardial infarction (STEMI) - NM MPI SPECT (Rest and/or Stress) Multiple Studies; Future Status post angioplasty with stent - NM MPI SPECT (Rest and/or Stress) Multiple Studies; Future Cigar smoker PLAN/RECOMMENDATIONS 69 y.o. male with CAD, history of anterolateral STEMI (s/p Pry PCI/DESx2 diagnal branch on 08/01/12,staged PCI/DESX2 RCA on 09/06/12), dyslipidemia, erectile dysfunction, CA bladder and tobacco abuse. - stable CAD at present. However, he remains at risk for coronary events due to ongoing tobacco abuse. Continue optimal medical treatment- DAPT (completed one year on 09/06/13; been on longer DAPT dueto multiple stents). Current LDL 58, target LDL less than 55. Increase atorvastatin dose to 80 mg p.o. q.h.s. Surveillance MPI to check for any significant myocardial ischemia. Echo with Doppler to rule out any major structural heart disease. -blood pressure controlled. Continue carvedilol, lisinopril. Target blood pressure less than 130/80mmHg. Monitor blood pressure at home. - patient was strongly advised to quit tobacco. He is not willing to quit tobacco at this time. Previously, Chantix was prescribed but patient has not taken it. Patient was cautioned that he will be at high risk for major adverse cardiovascular events due to his ongoing smoking. Verbalized understanding. Patient's we used to smoke in the past has quit tobacco. -Based on patient's current clinical status, he would be at an intermediate but acceptable risk forbladder surgery. - Counseling for low-salt, low-cholesterol diet was performed. Aerobic exercise. - RTC 10-12 months or sooner if necessary based on clinical course and MPI/echo results. Juan Gresham MD documented in this encounter Plan of Treatment Scheduled Orders Name Type Priority Associated Diagnoses Order Schedule Transthoracic Echo (TTE) Complete W Doppler/CF Echocardiography Routine Coronary artery disease involving [place] coronary artery of [place] heart without angina pectoris Expected: 12/31/2024, Expires: 02/05/2026 NM MPI SPECT (Rest and/or Stress) Multiple Studies Imaging Schedule Routine, Read Routine (OP Routine) Coronary artery disease involving [place] coronary artery of [place] heart without angina pectoris History of ST elevation myocardial infarction (STEMI) Status post angioplasty with stent Expected: 11/05/2024, Expires: 11/05/2025 documented as of this encounter Procedures Procedure Name Priority Date/Time Associated Diagnosis Comments ELECTROCARDIOGRAM REPORT Routine 11:33 AM CDT Coronary artery disease involving [place] coronary artery of [place] heart without angina pectoris POCT LIPID PANEL Routine 11/05/2024 11:3 2 AM CDT Coronary artery disease involving [place] coronary artery of [place] heart without angina pectoris documented in this encounter Results * Electrocardiogram Report (11/05/2024 11:33 AM CDT) us Juan Gresham MD ECG ORDERABLES Final Result * POCT lipid panel (11/05/2024 11:32 AM CDT) Cholesterol, POC 116 <200 MG/DL HDL, POC 40 >=40 mg/dL Triglycerides, POC 92 <=149 mg/dL LDL Cholesterol POC 58 <=129 mg/dL Chol/HDL Ratio, POC 1.4 NONE Non-HDL Cholesterol, POC 76 NONE mg/dL Cholesterol Total, POC 116 30 - 199 mg/dL Capillary blood 11/05/2024 1 1:32 AM CDT us Juan Gresham MD POINT OF CARE TEST ORDERABLES Fi nal Result documented in this encounter Visit Diagnoses Diagnosis Coronary artery disease involving [place] coronary artery of [place] heart without angina pectoris- Primary History of ST elevation myocardial infarction (STEMI) Status post angioplasty with stent Postsurgical percutaneous transluminal coronary angioplasty status Cigar smoker documented in this encounter Discontinued Medications Medication Sig Discontinue Reason Start Date End Da te atorvastatin (LIPITOR) 40 mg tabletIndications:Tor[place] artery disease involving [place] coronary artery of [place] heart without angina pectoris TAKE ONE TABLET BY MOUTH DAILY 10/13/2024 11/05/2024 documented as of this encounter Care Teams Supervisor Frame Assembly Relationship Specialty Start Date End Date Iker Feldman MD PCP - General 06/09/16 Iker Feldman MD Family Medicine 03/26/17 documented as of this encounter
[2024-11-06] VITALS (7 sets, daily range): BP systolic 121–146; BP diastolic 56–73; PULSE 47–56; RESP 14–20; TEMP 36.4; O2SAT 98–100; BMI 24.3
--- NOTE | ~2024-11-06 | XR_ITS ---
EXAMINATION: XR retrograde pyelogram RT DATE: 11/06/2024 13:03 INDICATION: Right retrograde pyelogram TECHNIQUE: 139 fluoroscopic images of the abdomen and pelvis were obtained during procedure performed by Dr. Gilliam. Radiologist was not present for the imaging or procedure. The amount of fluoroscopy time used during this procedure was 1.6 minutes. Total DAP was 1.29 mGym^2. COMPARISON: 10/30/2024 FINDINGS: Images demonstrate cannulation of the right ureter with retrograde contrast opacification of the right ureter and renal collecting system. See procedure note for further detail. IMPRESSION: 1. Fluoroscopy utilized right retrograde pyelogram during urologic procedure. See procedure note for further detail. Reviewed, dictated and finalized at location A. IMPRESSION: 1. Fluoroscopy utilized right retrograde pyelogram during urologic procedure. S ee procedure note for further detail.
--- OUTSIDE RECORDS SUMMARY | 2024-11-06 01:49 | XMS_ITS | Encounter Summary ---
Author Organization [facility] Address [address] [place] [address] Phone Care Team Providers Care Laborer Hoisting Name Role Phone Iker Feldman Primary Care Provider [phone] Juan Gresham MD Unavailable Hemant Delgado MD Unavailable Encounter Details Date Type Department Care Team (Late st Contact Info) Description 04/26/2021 Transcribe Orders [facility] Preop/Pacu II [address] [place] [address] Hemant Delgado MD [address] [address] Pre-op testing (Primary Dx) Social History Tobacco [...] COVID-19? 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 AESTHETICIAN documented as of this encounter Plan of Treatment Not on file documented as of this encounter Visit Diagnoses Diagnosis Pre-op testing- Primary Preoperative examination, unspecified documented in this encounter Care Teams Laborer Hoisting Relationship Specialty Start Date End Date Iker Feldman [address] [place] [address] PCP - General Family Medicine 12/05/17 Juan Gresham MD [address] [facility] [address] [place] [address] Cardiovascular Disease - Cardiology 12/05/17 Hemant Delgado MD #2 [facility] [address] [place] [address] Consulting Physician Urology 01/19/22 documented as of this encounter
--- OUTSIDE RECORDS SUMMARY | 2024-11-06 01:49 | XMS_ITS | Encounter Summary ---
Author Organization [facility] Address [address] [place] [address] Phone Care Team Providers Care Health And Safety Coordinator Name Role Phone Iker Feldman Primary Care Provider [phone] Juan Gresham MD Unavailable Hemant Delgado MD Unavailable Encounter Details Date Type Department Care Team (Late st Contact Info) Description 03/29/2021 Transcribe Orders [facility] Preop/Pacu II [address] [place] [address] Hemant Dlegado MD [address] [address] Pre-op testing (Primary Dx) Social History Tobacco [...] COVID-19? No / Unsure 03/29/2021 2:12 PM COMMERCIAL LOAN ANALYST documented as of this encounter Plan of Treatment Not on file documented as of this encounter Results * SARS-COV-2 BY MOLECULAR (04/25/2021 7:54 AM COMMERCIAL LOAN ANALYST) SARSCOV2 NOT DETECTED (Referen ce Range for this test is Not Detected ) [facility] THERMOFISHER FAST DX 04/25/2021 6:50 PM COMMERCIAL LOAN ANALYST [facility] Comment:This test was perfor med by a RT-PCR method. Other NASOPHARYNGEAL STRUCTURE / Unknown Non-Phlebotomy Collection / Unknown 04/25/2021 7:54 AM COMMERCIAL LOAN ANALYST 04/25/2021 8:44 AM COMMERCIAL LOAN ANALYST Narrative [facility] - 04/25/2021 6:50 PM COMMERCIAL LOAN ANALYST Authorized Fact Sheets about this test for providers and patients are available at: https://www.fda.gov/medical-devices/ynfjlzqnn-khxzskihux-jwzrvsu-devices/emergen cy-us e-authorizations us Hemant Delgado MD MICROBIOLOGY - GENERAL ORDERABLE S Final Result [facility] [address] [place] [address], documented in this encounter Visit Diagnoses Diagnosis Pre-op testing- Primary Preoperative examination, unspecified documented in this encounter Care Teams Health And Safety Coordinator Relationship Specialty Start Date End Date Iker Feldman [address] [place] [address] PCP - General Family Medicine 12/05/17 Juan Gresham MD [address] [facility] [place] [address] [place] [address] Cardiovascular Disease - Cardiology 12/05/17 Hemant Delgado MD #[address] [facility], [address] [address] Consulting Physician Urology 01/19/22 documented as of this encounter
--- OUTSIDE RECORDS SUMMARY | 2024-11-06 01:50 | XMS_ITS | Clinical Summary ---
Author Organization [facility] Address [address] [place] [address] Phone Care Team Providers Care [employer] Resource Teacher Name Role Phone Iker Feldman Primary Care Provider [phone] Juan Gresham MD Unavailable Hemant Delgado MD [...] minutes as needed. Active ergocalciferol (VITAMIN D) 62053 UNIT Capsule Take 1 Capsule by mouth. [...] Comments Blood Pressure 138/74 01/19/2022 8:53 AM OIL BURNER SERVICER AND INSTALLER Pulse 54 01/19/2022 8:53 AM OIL BURNER SERVICER AND INSTALLER Temperature 36.4 C (97.6 F) 01/19/2022 8:53 AM OIL BURNER SERVICER AND INSTALLER Respiratory Rate 18 01/19/2022 8:53 AM OIL BURNER SERVICER AND INSTALLER Oxygen Saturation 98% 01/19/2022 8:53 AM OIL BURNER SERVICER AND INSTALLER Inhaled Oxygen Concentration - - Weight 72.2 kg (159 lb 3.2 oz) 01/19/2022 8:53 A M OIL BURNER SERVICER AND INSTALLER Height 174 cm (5' 8.5) 09/16/2021 11:49 [...] this topic Medical Devices Implanted Type Area Trauma Counsellor Device Identifier Shelf Expiration Date Model / Serial / Lot Stent Ureteral 6fr 2.1fr 26cm 2 Pigtail Curve 2 Durometer Taper Tip Loprfl Graduated Polaris Ultra - [id number] Implanted:Qty : 1 on 03/19/2018 by Viviana Junior MD at [facility] IMPLANT Right: Ureter [employer] 10/03/2020 [id number] 0 / [id number] 0 / [id number] Stent Ureteral 6fr 2.1fr 24cm 2 Pigtail Curve 2 Durometer Taper Tip Loprfl Graduated Polaris Ultra - [id number] Implanted:Qty : 1 on 04/29/2021 by Hemant Delgado MD at [facility] IMPLANT Left: Ureter [employer] 01/12/2024 [id number] 0 / [id number] 0 / [id number] Stent Ureteral 6fr 2.1fr 24cm 2 Pigtail Curve 2 Durometer Taper Tip Loprfl Graduated Polaris Ultra - [id number] Implanted:Qty : 1 on 05/20/2021 by Hemant Delgado MD at [facility] IMPLANT Left: Ureter [employer] 02/04/2024 [id number] 0 / [id number] 0 / [id number] Stent Ureteral 6fr 2.1fr 24cm 2 Pigtail Curve 2 Durometer Taper Tip Loprfl Graduated Polaris Ultra - [id number] Implanted:Qty : 1 on 05/20/2021 by Hemant Delgado MD at [facility] IMPLANT Right: Ureter [employer] 02/04/2024 [id number] 0 / [id number] 0 / [id number] Stent Ureteral 6fr 2.1fr 28cm 2 Pigtail Curve 2 Durometer Taper Tip Loprfl Graduated Polaris Ultra - [id number] Implanted:Qty : 1 on 09/09/2021 by Hemant Delgado MD at [facility] IMPLANT Right: Ureter [employer] 02/08/2024 [id number] 0 / [id number] 0 / [id number] Explanted Type Area Trauma Counsellor Device Identifier Shelf Expiration Date Model / Serial / Lot Stent Ureteral 6fr 2.1fr 24cm 2 Pigtail Curve 2 Durometer Taper Tip Loprfl Graduated [employer] Ultra - [id number] Implanted:Qty : 1 on 04/29/2021 by [facility] Explanted:Qty : 1 on 05/20/2021 by [facility] IMPLANT Right: Ureter [employer] 01/12/2024 [id number] 0 / [id number] 0 / [id number] Procedures Procedure Name Priority Date/Time Associated Diagnosis Comments PSA SCREEN Routine 09/18/2017 from Last 3 Months or Most Recently Relevant to Health Maintenance Results * PSA SCREEN (09/18/2017) PSA (PROSTATE SPECIFIC ANTIGEN) 0.4 ng/mL Blood specimen (specimen) 09/18/2017 Evaristo Ladd MD CHEMISTRY ORDERABLES Edited Res ult - Final from Last 3 Months or Most Recently Relevant to Health Maintenance Insurance [place]ICAID [place], [place] [id number] MEDICARE C [employer] Advance Directives Documents on File Type Date Recorded Patient Enamel Dipper Expl anation Other Advance Directive 09/21/2021 3:35 [...] Medical Clearance fo r surgery Care Teams [employer] Resource Teacher Relationship Specialty Start Date End Date Feldman I[address] [place] [address] PCP - General Family Medicine 12/05/17 Juan Gresham MD [address] [facility] [address] [place] [address] Cardiovascular Disease - Cardiology 12/05/17 Hemant Delgado MD #2 [facility] [address] [place] [address] Consulting Physician Urology 01/19/22
--- OUTSIDE RECORDS SUMMARY | 2024-11-06 01:50 | XMS_ITS | Encounter Summary ---
Author Organization [facility] Address [address] [place] [address] Phone Care Team Providers Care Supervisor Testing Name Role Phone Iker Feldman Primary Care Provider [phone] Juan Gresham MD Unavailable Hemant Delgado MD Unavailable Encounter Details Date Type Department Care Team (Late st Contact Info) Description 03/29/2021 [facility] [address] [place] [id number] Hemant Delgado MD [address] [address] Social History Tobacco Use Types Packs/Day Years [...] COVID-19? No / Unsure 03/29/2021 2:12 PM PARIMUTUEL TICKET CASHIER documented as of this encounter Plan of Treatment Not on file documented as of this encounter Visit Diagnoses Not on filedocumented in this encounter Care Teams Supervisor Testing Relationship Specialty Start Date End Date Iker Feldman [address] [facility] [address] PCP - General Family Medicine 12/05/17 Juan Gresham MD [address] [facility] [address] [place] [address] Cardiovascular Disease - Cardiology 12/05/17 Hemant Delgado MD #2 [facility] [address] [place] [address] Consulting Physician Urology 01/19/22 documented as of this encounter
--- OUTSIDE RECORDS SUMMARY | 2024-11-06 01:50 | XMS_ITS | Clinical Summary ---
Author Organization [facility] [address] [facility] [address] Address [address] [place] [address] Care Team Providers Care Director Of Cloud Services Name Role Phone Iker Feldman MD Primary Care Provider [phone] Iker Feldman MD Unavailable [phone] Allergies Active Allergy Reactions Criticality Noted Date Comments Other Other (See comments) Low 12/05/2017 DARVOCET DIZZY PASSED OUT Propoxyphene Hives High 09/18/2024 Medications aspirin (ASPERDRINK) 81 mg tablet, effervescent [...] 1 tablet (88 mcg total) by mouth metal grader before breakfast Active albuterol HFA (PROVENTIL HFA,VENTOLIN [...] needed for pain Active cholecalciferol (VITAMIN D-3) 20351 unit tablet Take 1 tablet (50,000 Units total) by mouth once a week Active carvediloL (COREG) 3.125 mg tabletIndication s:Coronary artery disease involving resighini coronary artery of resighini heart without angina pectoris Take 1 tablet (3.125 mg total) by mouth 2 (two) times a day with meals 180 tablet 3 11/01/19 24 Active nitroglycerin (NITROSTAT) 0.4 mg SL tabletIndication s:Coronary artery disease involving resighini coronary artery of resighini heart without angina pectoris Place 1 tablet (0.4 mg total) under the tongue every 5 (five) minutes as needed for chest pain Up to 3 doses 25 tablet 11/01/19 24 Active lisinopriL (PRINIVIL,ZESTRI L) 10 mg tabletIndication s:Coronary artery disease involving resighini coronary artery of resighini heart without angina pectoris TAKE ONE TABLET BY MOUTH EVERY DAY 90 tablet 10/14/19 25 Active clopidogreL (PLAVIX) 75 mg tabletIndication s:Coronary artery disease involving resighini coronary artery of resighini heart without angina pectoris TAKE ONE TABLET BY MOUTH DAILY 90 tablet 10/14/19 25 Active atorvastatin (LIPITOR) 80 mg tabletIndication s:Coronary artery disease involving resighini coronary artery of resighini heart without angina pectoris Take 1 tablet (80 mg total) by mouth nightly 90 tablet 6 11/06/19 25 Active clopidogreL (PLAVIX) 75 mg tabletIndication s:Coronary artery disease involving resighini coronary artery of resighini heart without angina pectoris Take 1 tablet (75 mg total) by mouth daily 90 tablet 3 11/01/19 24 025 Discontinued atorvastatin (LIPITOR) 40 mg tabletIndication s:Coronary artery disease involving resighini coronary artery of resighini heart without angina pectoris Take 1 tablet (40 mg total) by mouth daily 90 tablet 3 11/01/19 24 025 Discontinued lisinopriL (PRINIVIL,ZESTRI L) 10 mg tabletIndication s:Coronary artery disease involving resighini coronary artery of resighini heart without angina pectoris TAKE ONE TABLET BY MOUTH DAILY 90 tablet 2 02/18/20 24 025 Discontinued atorvastatin (LIPITOR) 40 mg tabletIndication s:Coronary artery disease involving resighini coronary artery of resighini heart without angina pectoris TAKE ONE TABLET BY MOUTH DAILY 90 tablet 10/14/19 25 025 Discontinued Active Problems Problem Noted Date Diagnosed Date Atherosclerosis of coronary artery 12/12/2013 Overview (06/15/2016): Coronary atherosclerosis Encounters Date Type Department Care Team Description 11/05/2024 11:00 AM CDT Office Visit [facility] Cardiology [address] [place] [address] Juan Gresham MD Coronary artery disease involving resighini coronary artery of resighini heart without angina pectoris (Primary Dx); History of ST elevation myocardial infarction (STEMI); Status post angioplasty with stent; Cigar smoker 08/19/2024 Telephone [facility] Cardiology [address] [place] [address] Perri Lux NP preop form from Last [...] Dyslipidemia Hx Other Medical Hx Hep C Inguinal hernia Family History Medical History Relation Name Comments [...] on file Legal Sex Male 9:18 PM PARAFFINER Gender Identity Not on file Sexual Orientation [...] Mass Index 25.27 11/05/2024 10:55 AM CDT Plan of Treatment Health Maintenance [...] Aneurysm (A AA) Screen Completed 12/10/2019, 01/05/2018 Procedures Procedure Name Priority Date/Time Associated Diagnosis Comments ELECTROCARDIOGRAM REPORT Routine 11:33 AM CDT Coronary artery disease involving resighini coronary artery of resighini heart without angina pectoris POCT LIPID PANEL Routine 11/05/2024 11:3 2 AM CDT Coronary artery disease involving resighini coronary artery of resighini heart without angina pectoris from Last 3 Months Results * Electrocardiogram Report (11/05/2024 11:33 AM CDT) Result Chris Gresham MD ECG ORDERABLES Final Result * [...] OF CARE TEST ORDERABLES Fi nal Result from Last 3 Months Insurance [facility] MEDICARE ADVANTAGE [place] [id number] IDPA Care Teams Director Of Cloud Services Relationship Specialty Start Date End Date Iker Feldman MD PCP - General 06/09/16 Iker Feldman MD Family Medicine 03/26/17
--- OUTSIDE RECORDS SUMMARY | 2024-11-06 01:50 | XMS_ITS | Encounter Summary ---
Author Organization [facility] Address [address] [place] [address] Phone Care Team Providers Care Emergency Room Physician Name Role Phone Iker Feldman Primary Care Provider [phone] Juan Gresham MD Unavailable Hemant Delgado MD Unavailable Encounter Details Date Type Department Care Team (Late st Contact Info) Description 05/16/2021 Transcribe Orders [facility] Preop/Pacu II [address] [place] [address] Hemant Delgado MD #[address] [address] Pre-op testing (Primary Dx) Social History Tobacco [...] COVID-19? No / Unsure 05/17/2021 11:10 AM ETHYL BLENDER documented as of this encounter Plan of Treatment Not on file documented as of this encounter Results * SARS-COV-2 BY MOLECULAR (05/17/2021 11:13 AM ETHYL BLENDER) SARSCOV2 NOT DETECTED (Referen ce Range for this test is Not Detected ) [facility] THERMOFISHER FAST DX 05/18/2021 11:52 AM ETHYL BLENDER [facility] Comment:This test was perfor med by a RT-PCR method. Other NASOPHARYNGEAL STRUCTURE / Unknown Non-Phlebotomy Collection / Unknown 05/17/2021 11:13 AM ETHYL BLENDER 05/17/2021 11:57 AM ETHYL BLENDER [facility]ative [facility] - 05/18/2021 11:52 AM ETHYL BLENDER Authorized Fact Sheets about this test for providers and patients are available at: https://www.fda.gov/medical-devices/qkbahsnde-agfmmhbqkp-rcbqkgi-devices/emergen cy-us e-authorizations us Hemant Delgado MD MICROBIOLOGY - GENERAL ORDERABLE S Final Result [facility] [address] [place] [address], documented in this encounter Visit Diagnoses Diagnosis Pre-op testing- Primary Preoperative examination, unspecified documented in this encounter Care Teams Emergency Room Physician Relationship Specialty Start Date End Date Iker Feldman [address] [place] [address] PCP - General Family Medicine 12/05/17 Juan Gresham MD [address] [facility] [address] [place] [address] Cardiovascular Disease - Cardiology 12/05/17 Hemant Delgado MD #2 [facility], [address] [address] Consulting Physician Urology 01/19/22 documented as of this encounter
--- NOTE | 2024-11-06 06:05 | WPDHPUPDATE1 ---
History and Physical Update Update Date/Time: 11/06/24 06:05 History and Physical has been reviewed, including an updated exam of the patient. There are NO changes in the patient's condition. Risks, benefits, and alternatives have been discussed and questions answered. Patient agrees to proceed with procedure.
[2024-11-06] MEDS: LACTATED RINGERS 1,000 ML 30 ML IV CONT (11:20)
--- NOTE | 2024-11-06 11:54 | WPDANESEPPF ---
Anes - Initial Pre Proc Eval Procedure: Operation Date: 11/06/24 13:00 Proposed Procedures p Cystoscopy, Right Retrograde Pyelogram, Right Ureteroscopy, Jelmyto Instillation - Vlad Gilliam MD Date/Time: 11/06/24 11:54 Surgeon: Vlad Gilliam MD Pre Op Diagnosis: bladder CA Patient Data Age: 69 Gender: M Height: 1.74 m Weight: 72 kg Allergies Allergy/AdvReac Type Severity Reaction Status Date / Time propoxyphene Allergy Intermediate Hives, Verified 10/23/24 10:36 N/V, Confusion Home Medications ?Medication ?Instructions ?Recorded ?Confirmed ?Type alprazolam 1 mg tablet (Xanax) 1 mg PO DAILY PRN Anxiety 09/14/20 10/20/24 History atorvastatin 40 mg tablet (Lipitor) 40 mg PO DAILY 09/14/20 10/30/24 History calcium phosphate,dibasic 77 50,000 tablet PO [id number] 09/14/20 10/20/24 History mg-vitamin D3 400 unit tablet carvedilol 3.125 mg tablet (Coreg) 3.125 mg PO BID 09/14/20 10/30/24 History clopidogrel 75 mg tablet (Plavix) 75 mg PO DAILY 09/14/20 10/20/24 History hydrocodone 10 mg-acetaminophen 1 tablet PO Q6-8H PRN Pain 09/14/20 10/20/24 History 325 mg tablet levothyroxine 88 mcg tablet 88 mcg PO DAILY 09/14/20 10/30/24 History (Synthroid) lisinopril 10 mg tablet (Zestril) 10 mg PO DAILY 09/14/20 10/20/24 History albuterol sulfate 90 mcg/actuation 2 puff inhalation QID PRN 05/03/21 10/20/24 History aerosol inhaler Shortness Of Breath nitroglycerin 0.4 mg sublingual 0.4 mg sublingual Q5-15M PRN Chest 05/03/21 10/20/24 History tablet Pain umeclidinium 62.5 mcg/actuation 1 inh inhalation DAILY 05/03/21 10/20/24 History blister powder for inhalation (Incruse Ellipta) aspirin 81 mg chewable tablet 81 mg PO DAILY 07/28/22 10/20/24 History pantoprazole 40 mg tablet,delayed 20 mg (1/2 x 40 mg) PO QAM #90 tabs 10/30/24 Rx release Patient hx anesthesia problems: none Family hx anesthesia problems: none Results Review: All pre-operative results and documents have been reviewed as part of the pre-operative evaluation. [facility] Past Medical History Medical History Non-cardiac chest pain Gastroesophageal reflux disease Chronic obstructive pulmonary disease ST elevation myocardial infarction (STEMI) (07/2012) Restless leg syndrome Hepatitis C virus infection resolved after antiviral drug therapy Bladder cancer Continuous tobacco abuse Coronary artery disease Hypothyroidism Essential hypertension Hyperlipidemia Anxiety and depression Surgical History Surgical History History of cystoscopy Abnormal cystoscopy x8 Right eye trauma History of cardiac catheterization (08/01/12) Aspiration thrombectomy, PTCA, stent x2 in overlapping fashion in major diagonal branch. Per Dr. Greshma. Family History Family History Mother Acute myocardial infarction Leukemia Father Colon cancer Sibling Heart problem Social History Social History Social History: Surrogate medical decision maker: Jodee Álvarez, spouse. Code status: Full code. Smoking packs per day: 1 Smoking cigarettes per day: 20.0 Years smoked: 30 Smoking pack-years: 30.00 Smoking status: Former smoker Tobacco type: cigarettes, pipe and cigars Second hand tobacco smoke exposure: Yes Smoking end date: 03/12/94 Additional smoking assessment comments: QUIT GIGARRETTES 2002, SMOKES 2 CIGARS/DAY & PIPE WHEN OUT OF CIGARS Alcohol intake: current Drinks per week: 2 Alcohol use details: BEER Substance use: current Substance use type: marijuana Other substance usage details: smokes 3x weekly Last use: 12/25/22 Do You Feel Safe in your Home?: Yes Lack of Transportation: No Lack of Food: Never True Current Housing: I Have Housing Concerned About Future Housing: No Difficulty Paying Gas/Electric Bills: No Difficulty Paying for Meds: No Currently Unemployed: No Education: High School Diploma/GED Difficulty w/ Childcare or Family Care: No Living arrangements: with family Additional living arrangements comments: Spiritual care concerns: No Anes - Eval Final PreProcedure Day of Procedure 11/06/24 11:54 Patient weight: normal Heart: regular rate and rhythm Lungs: clear to auscultation and normal air movement Airway: Mallampati scale class II Neurological: alert and oriented Last oral intake: >/= 8 hours ASA classification: III Emergent: no Anesthetic plan: proceed Anesthesia type and monitoring: general and standard monitoring Results Review: All pre-operative results and documents have been reviewed as part of the pre-operative evaluation. Informed Consent: The patient's anesthetic plan and its attendant risks and benefits were discussed with the patient/family/POA. Questions were solicited and answers provided to the satisfaction of the patient/family/POA.
[2024-11-06] MEDS: SODIUM BICARBONATE TAB 650 MG TABLET 1300 MG PO (12:00)
[2024-11-06] MEDS: ceFAZolin 2 GM in SODIUM CHLORIDE 0.9% IV 50 ML 100 ML IVPB (12:25)
[2024-11-06] MEDS: MITOMYCIN 28 MG URETHRAL (12:48)
[2024-11-06] MEDS: LIDOCAINE 2% GEL UROJET 10 ML PKG MUCOUS MEM (12:48)
--- NOTE | 2024-11-06 13:11 | W.PM.PROC2 ---
Procedure Note - Detailed Date of Procedure 11/06/24 Pre-op Diagnosis Upper urinary tract urothelial ca. Post-op Diagnosis Same Procedure Performed Cystoscopy, right retrograde pyelography, right Yovani micro installation and right ureteral stent placement Surgeon Vald Gilliam MD Anesthesia General Description of Procedure Patient is brought to the operative suite where he was prepped and draped in routine sterile fashion while in dorsal lithotomy position after the uneventful induction of a general LMA anesthetic. A 19F rigid cystoscope was placed in the bladder. The bladder was carefully inspected. Mucosa is normal without hyperemia. There was no intravesical neoplasm. A 0.035 in glidewire was advanced in the right renal pelvis and a ureteral catheter was advanced over the guidewire. The retrograde pyelogram was obtained to ensure appropriate positioning of the ureteral catheter in the collecting system. Prior retrograde pyelography had determined a renal pelvic volume of 7cc. We opted to use that prior volume determination for today's instillation. After appropriate reconstitution of the Jelmyto in ice retrograde injection was undertaken through the same ureteral catheter positioned at the UPJ. A total of 7mL (28 mg) of Jelmyto was instilled in the renal pelvis without incident. The volume of Jelmyto wasted was 13 mL (52 mg). the ureteral catheter was allowed to stand for 60 seconds and then removed with ease. As this was his last installation I opted to place a 4.8 F variable length ureteral stent. The proximal coil this was positioned in his renal pelvis and distal coil in the bladder. Patient tolerated the procedure well was taken to the recovery room in good condition. Complications No immediate complications Condition Stable
== END 2024-11-06 14:38 | disposition home or self-care (01) ==
PROVIDERS: PCP Emergency Medicine; Visit Provider Urology
PROC: (CPT 52352; principal; 2024-11-06 13:00)
DX: C67.9 Malignant neoplasm of bladder, unspecified (principal); E03.9 Hypothyroidism, unspecified; I10 Essential (primary) hypertension; E78.5 Hyperlipidemia, unspecified; G25.81 Restless legs syndrome; K21.9 Gastro-esophageal reflux disease without esophagitis; J44.9 Chronic obstructive pulmonary disease, unspecified; I25.2 Old myocardial infarction; I25.10 Atherosclerotic heart disease of native coronary artery without angina pectoris; F41.8 Other specified anxiety disorders; F17.290 Nicotine dependence, other tobacco product, uncomplicated; F12.90 Cannabis use, unspecified, uncomplicated; Z79.02 Long term (current) use of antithrombotics/antiplatelets; Z79.891 Long term (current) use of opiate analgesic; Z79.51 Long term (current) use of inhaled steroids; Z79.82 Long term (current) use of aspirin; Z98.890 Other specified postprocedural states; Z98.61 Coronary angioplasty status; Z80.6 Family history of leukemia; Z80.0 Family history of malignant neoplasm of digestive organs; Z82.49 Family history of ischemic heart disease and other diseases of the circulatory system
CPT/HCPCS: 52332; C9789; 74420; J0690; A9270; C1758; C1769; C2617; J1100; J2405; J2704; J7120; J9281; Q9966

== ENCOUNTER 2024-12-18 00:19 | Day surgery (SDC) | payer MEDICARE, MEDICAID, SELFPAY ==
[2024-12-11 13:26] VITALS: BMI 24.7
--- NOTE | 2024-12-11 13:36 | PC.NURSE ---
[facility] has started construction of its new state of the art ER which will open Spring 2026. With this, we anticipate parking may be a challenge for some our surgical patients and families. Parking spaces are limited but are available for all Surgical, obstetrics, and ER patients sharing this lot. If you arrive and find you are having a hard time finding a parking space, please note that we understand the challenges, please drive around the hospital and park near Hospital Entrance 1. When you enter this entrance, you can ask a volunteer to direct or take you back to the surgical waiting area to check in. We appreciate everyone?s understanding of these expected challenges while we build for your future. Report to the Outpatient Waiting Room, entrance under the green pavilion located off [address], at time __1000am on date _12/18/24 . Planned Procedure Time: __1200pm .? Time changes happen often and if your time is changed the preop area will call you the afternoon before. - You and your visitor will be asked to self-screen and do not enter if you have any COVID symptoms. Please call surgeon if you need to reschedule. - A mask is optional within the hospital at this time. Patients may have clear liquids (water, carbonated beverages, clear teas, apple juice) until 3 hours prior to surgery with a maximum of 20 ounces. - No food from midnight until time of surgery and no smoking, or chewing tobacco (or any form of nicotine). No chewing gum, candy or mints. (0900am) Take only the following medications with a SIP of water on the morning of surgery: ___Coreg, Levothyroxine, Ellipta inhaler, Xanax and Hydrocodone as needed DO NOT STOP ANY OF YOUR OTHER PRESCRIPTION MEDICATIONS PRIOR TO SURGERY EXCEPT THE FOLLOWING Hold all vitamins and supplements for [address] Gilliam. Medications to discontinue per physician HOLD ASPIRIN and PLAVIX for [address] Gilliam Date to take last dose___12/11/24 Please no make-up, nail czech, hairspray, perfume, deodorant, or body powder the day of surgery.? No jewelry (including any body piercings) or valuables the day of surgery, leave them at home.? Please take a shower or bath the night before, or the morning of, surgery with an antibacterial soap.? Wear comfortable, loose fitting clothing.? - Jewelry must be removed prior to entering the operating room.? Rings and piercings that are not removed may be cut off. - The hospital will not accept responsibility for valuables.? - Please leave all valuables, including medications, at home the day of surgery. If you are going home after surgery, a licensed company tanker truck driver must drive you home.? - NO public transportation without another adult if you receive anesthesia. - We recommend that an adult stay with you for 24 hours following discharge. - We also recommend that you do not drive, make important decision, drink alcoholic beverages, or take any drugs that were not prescribed by your health care provider for at least 24 hours after your discharge time. Follow any additional instructions given to you from your surgeon. Telephone instructions given to ___wife Raven and asked if any additional questions and then verbalized understanding. Patient advised to call surgeon office or pre surgery nurse liaison [phone] if any additional questions.
[2024-12-18] VITALS (7 sets, daily range): BP systolic 116–158; BP diastolic 60–91; PULSE 53–74; RESP 16–20; TEMP 36.2; O2SAT 95–100
--- NOTE | ~2024-12-18 | XR_ITS ---
EXAMINATION: XR retrograde pyelo w/stent RT DATE: 12/18/2024 11:38 INDICATION: Right-sided urolithiasis TECHNIQUE: 51 fluoroscopic images of the abdomen and pelvis were obtained during procedure performed by Dr. Gilliam. Radiologist was not present for the imaging or procedure. The amount of fluoroscopy time used during this procedure was 0.9 minutes. Total DAP was 0.709 mGym^2. COMPARISON: 11/06/2024 FINDINGS: Fiberglass Roving Winder images demonstrate a right internal ureteral stent with loops formed of the right kidney and gallbladder. Subsequent images demonstrate removal of the stent and cannulation of the right ureter retrograde contrast injection through the catheter opacifies the right renal collecting system with smooth mucosal surface and no evident urothelial irregularities. IMPRESSION: 1. Fluoroscopy utilized during removal of a right internal ureteral stent and right retrograde pyelogram which demonstrates no evident urothelial irregularities. See procedure note for further detail. Reviewed, dictated and finalized at location A. IMPRESSION: 1. Fluoroscopy utilized during removal of a right internal ureteral stent and r ight retrograde pyelogram which demonstrates no evident urothelial irregulariti es. See procedure note for further detail.
--- NOTE | 2024-12-18 05:41 | WPDHPUPDATE1 ---
History and Physical Update Update Date/Time: 12/18/24 05:41 History and Physical has been reviewed, including an updated exam of the patient. There are NO changes in the patient's condition. Risks, benefits, and alternatives have been discussed and questions answered. Patient agrees to proceed with procedure.
[2024-12-18] MEDS: LACTATED RINGERS 1,000 ML 30 ML IV CONT (10:00)
--- NOTE | 2024-12-18 10:22 | WPDANESEPPF ---
Anes - Initial Pre Proc Eval Procedure: Operation Date: 12/18/24 11:30 Proposed Procedures p Cystoscopy, Right Retrograde Pyelogram, Right Ureteroscopy, Possible Bladder Biopsy - Vlad Gilliam MD Date/Time: 12/18/24 10:22 Surgeon: Vlad Gilliam MD Pre Op Diagnosis: bladder CA Patient Data Age: 69 Gender: M Height: 1.73 m Weight: 74 kg Allergies Allergy/AdvReac Type Severity Reaction Status Date / Time propoxyphene Allergy Intermediate Hives, Verified 12/17/24 11:35 N/V, Confusion Home Medications ?Medication ?Instructions ?Recorded ?Confirmed ?Type alprazolam 1 mg tablet (Xanax) 1 mg PO DAILY PRN Anxiety 09/14/20 12/17/24 History atorvastatin 40 mg tablet (Lipitor) 40 mg PO DAILY 09/14/20 12/17/24 History calcium phosphate,dibasic 77 50,000 tablet PO [id number] 09/14/20 12/17/24 History mg-vitamin D3 400 unit tablet carvedilol 3.125 mg tablet (Coreg) 3.125 mg PO BID 09/14/20 12/17/24 History clopidogrel 75 mg tablet (Plavix) 75 mg PO DAILY 09/14/20 12/17/24 History Held on 12/11/24. Instructions: .Provider Order hydrocodone 10 mg-acetaminophen 1 tablet PO Q6-8H PRN Pain 09/14/20 12/17/24 History 325 mg tablet levothyroxine 88 mcg tablet 88 mcg PO DAILY 09/14/20 12/17/24 History (Synthroid) lisinopril 10 mg tablet (Zestril) 10 mg PO DAILY 09/14/20 12/17/24 History albuterol sulfate 90 mcg/actuation 2 puff inhalation QID PRN 05/03/21 12/17/24 History aerosol inhaler Shortness Of Breath nitroglycerin 0.4 mg sublingual 0.4 mg sublingual Q5-15M PRN Chest 05/03/21 12/17/24 History tablet Pain umeclidinium 62.5 mcg/actuation 1 inh inhalation DAILY 05/03/21 12/17/24 History blister powder for inhalation (Incruse Ellipta) aspirin 81 mg chewable tablet 81 mg PO DAILY 07/28/22 12/17/24 History Held on 12/11/24. Instructions: .Provider Order pantoprazole 40 mg tablet,delayed 20 mg (1/2 x 40 mg) PO QAM #90 tabs 12/17/24 12/17/24 Rx release Patient hx anesthesia problems: none Family hx anesthesia problems: none Results Review: All pre-operative results and documents have been reviewed as part of the pre-operative evaluation. [facility] Past Medical History Medical History Non-cardiac chest pain Gastroesophageal reflux disease Chronic obstructive pulmonary disease ST elevation myocardial infarction (STEMI) (07/2012) Restless leg syndrome Hepatitis C virus infection resolved after antiviral drug therapy Bladder cancer Continuous tobacco abuse Coronary artery disease Hypothyroidism Essential hypertension Hyperlipidemia Anxiety and depression Surgical History Surgical History History of cystoscopy Abnormal cystoscopy x8 Right eye trauma History of cardiac catheterization (08/01/12) Aspiration thrombectomy, PTCA, stent x2 in overlapping fashion in major diagonal branch. Per Dr. Gresham. Family History Family History Mother Acute myocardial infarction Leukemia Father Colon cancer Sibling Heart problem Social History Social History Social History: Surrogate medical decision maker: Jodee Álvarez, spouse. Code status: Full code. Smoking packs per day: 1 Smoking cigarettes per day: 20.0 Years smoked: 30 Smoking pack-years: 30.00 Smoking status: Former smoker Tobacco type: cigarettes, pipe and cigars Second hand tobacco smoke exposure: Yes Smoking end date: 03/12/94 Additional smoking assessment comments: QUIT GIGARRETTES 2002, SMOKES 2 CIGARS/DAY & PIPE WHEN OUT OF CIGARS Alcohol intake: current Drinks per week: 2 Alcohol use details: BEER Substance use: current Substance use type: marijuana Other substance usage details: smokes 3 times a week marijuana Last use: 12/25/22 Do You Feel Safe in your Home?: Yes Lack of Transportation: No Lack of Food: Never True Current Housing: I Have Housing Concerned About Future Housing: No Difficulty Paying Gas/Electric Bills: No Difficulty Paying for Meds: No Currently Unemployed: No Education: High School Diploma/GED Difficulty w/ Childcare or Family Care: No Living arrangements: with family Additional living arrangements comments: Spiritual care concerns: No Anes - Eval Final PreProcedure Day of Procedure 12/18/24 10:22 Patient weight: obese Heart: regular rate and rhythm Lungs: clear to auscultation Airway: Mallampati scale class II Neurological: alert and oriented Last oral intake: >/= 8 hours ASA classification: III Emergent: no Anesthetic plan: proceed Anesthesia type and monitoring: general LMA and standard monitoring Results Review: All pre-operative results and documents have been reviewed as part of the pre-operative evaluation. Informed Consent: The patient's anesthetic plan and its attendant risks and benefits were discussed with the patient/family/POA. Questions were solicited and answers provided to the satisfaction of the patient/family/POA.
--- NOTE | 2024-12-18 10:56 | PM.HPGS ---
History of Present Illness History of Present Illness Consent: Risks, benefits, and alternatives have been discussed and questions answered. Patient agrees to proceed with procedure. Chief complaint: bladder CA Narrative: Bhanu Álvarez is a 69 year old male is well known to [facility]. 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 Is status post recent course of Gel Midol and presents now for surveillance cystoscopy and right ureteroscopy. Review of Systems Review of Systems: All systems reviewed & are unremarkable except as noted in HPI and below PMFSH Past Medical History Medical History Non-cardiac chest pain Gastroesophageal reflux disease Chronic obstructive pulmonary disease ST elevation myocardial infarction (STEMI) (07/2012) Restless leg syndrome Hepatitis C virus infection resolved after antiviral drug therapy Bladder cancer Continuous tobacco abuse Coronary artery disease Hypothyroidism Essential hypertension Hyperlipidemia Anxiety and depression Surgical History Surgical History History of cystoscopy Abnormal cystoscopy x8 Right eye trauma History of cardiac catheterization (08/01/12) Aspiration thrombectomy, PTCA, stent x2 in overlapping fashion in major diagonal branch. Per Dr. Gresham. Family History Family History Mother Acute myocardial infarction Leukemia Father Colon cancer Sibling Heart problem Social History Social History Social History: Surrogate medical decision maker: Jodee Álvarez, spouse. Code status: Full code. Smoking packs per day: 1 Smoking cigarettes per day: 20.0 Years smoked: 30 Smoking pack-years: 30.00 Smoking status: Former smoker Tobacco type: cigarettes, pipe and cigars Second hand tobacco smoke exposure: Yes Smoking end date: 03/12/94 Additional smoking assessment comments: QUIT GIGARRETTES 2002, SMOKES 2 CIGARS/DAY & PIPE WHEN OUT OF CIGARS Alcohol intake: current Drinks per week: 2 Alcohol use details: BEER Substance use: current Substance use type: marijuana Other substance usage details: smokes 3 times a week marijuana Last use: 12/25/22 Do You Feel Safe in your Home?: Yes Lack of Transportation: No Lack of Food: Never True Current Housing: I Have Housing Concerned About Future Housing: No Difficulty Paying Gas/Electric Bills: No Difficulty Paying for Meds: No Currently Unemployed: No Education: High School Diploma/GED Difficulty w/ Childcare or Family Care: No Living arrangements: with family Additional living arrangements comments: Spiritual care concerns: No Meds Home Medications and Allergies Home Medications ?Medication ?Instructions ?Recorded ?Confirmed ?Type alprazolam 1 mg tablet (Xanax) 1 mg PO DAILY PRN Anxiety 09/14/20 12/17/24 History atorvastatin 40 mg tablet (Lipitor) 40 mg PO DAILY 09/14/20 12/17/24 History calcium phosphate,dibasic 77 50,000 tablet PO [id number] 09/14/20 12/17/24 History mg-vitamin D3 400 unit tablet carvedilol 3.125 mg tablet (Coreg) 3.125 mg PO BID 09/14/20 12/18/24 History clopidogrel 75 mg tablet (Plavix) 75 mg PO DAILY 09/14/20 12/18/24 History Held on 12/11/24. Instructions: .Provider Order hydrocodone 10 mg-acetaminophen 1 tablet PO Q6-8H PRN Pain 09/14/20 12/17/24 History 325 mg tablet levothyroxine 88 mcg tablet 88 mcg PO DAILY 09/14/20 12/18/24 History (Synthroid) lisinopril 10 mg tablet (Zestril) 10 mg PO DAILY 09/14/20 12/18/24 History albuterol sulfate 90 mcg/actuation 2 puff inhalation QID PRN 05/03/21 12/17/24 History aerosol inhaler Shortness Of Breath nitroglycerin 0.4 mg sublingual 0.4 mg sublingual Q5-15M PRN Chest 05/03/21 12/17/24 History tablet Pain umeclidinium 62.5 mcg/actuation 1 inh inhalation DAILY 05/03/21 12/17/24 History blister powder for inhalation (Incruse Ellipta) aspirin 81 mg chewable tablet 81 mg PO DAILY 07/28/22 12/17/24 History Held on 12/11/24. Instructions: .Provider Order pantoprazole 40 mg tablet,delayed 20 mg (1/2 x 40 mg) PO QAM #90 tabs 12/17/24 12/17/24 Rx release Allergies Allergy/AdvReac Type Severity Reaction Status Date / Time propoxyphene Allergy Intermediate Hives, Verified 12/18/24 10:30 N/V, Confusion Vital Signs Vital Signs - 24 hr 12/18/24 10:00 Temperature 97.1 F L Pulse Rate 57 L Respiratory Rate 16 Blood Pressure 116/91 H Pulse Oximetry 100 Oxygen Delivery Room Air Exam Const: General: no acute distress Resp: Effort & Inspection: normal respiratory effort GI: Inspection: non-distended GI Palp: No abdominal tenderness and No Guarding due to palpation present (GI) Auscultation: normal bowel sounds Assessment and Plan Assessment and plan (1) Cancer of overlapping sites of bladder: Code(s): C67.8 - Malignant neoplasm of overlapping sites of bladder Status: Acute (2) Cancer of right renal pelvis: Code(s): C65.1 - Malignant neoplasm of right renal pelvis Status: Acute Assessment and Plan: cystoscopy, right retrograde pyelogram, right ureteroscopy, possible bladder biopsy
[2024-12-18] MEDS: ceFAZolin 2 GM in SODIUM CHLORIDE 0.9% IV 50 ML 100 ML IVPB (11:07)
--- NOTE | 2024-12-18 11:22 | CY_PTH ---
PATIENT: Bhanu Álvarez LOC: [facility] U#:[id number] AGE/SX: 69/M ROOM: RE12/18/[address]: Vlad Gilliam MD : [id number] BED: DIS: 12/18/2024 SPEC #: [id number] RECD: 12/18/24 12:16 STATUS: GAGE REEliana #: [id number] ADAM: 12/18/24 11:[address]: Vlad Gillima DEPT: [facility] Cytology RECD BY: Kelley Dozier ENTERED: 12/18/24 12:28 SP TYPE: Cytology OTHR DR: Iker Feldman MD Tissues: A - Urine Procedures: Cytopathology Cytospin
[2024-12-18] MEDS: LIDOCAINE 2% GEL UROJET 10 ML PKG MUCOUS MEM (11:26)
--- NOTE | 2024-12-18 11:50 | W.PM.PROC2 ---
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 Cystoscopy was undertaken with a 21 F rigid cystoscope. There was no urethral stricture. His bladder mucosa is a little inflamed from prior TURBT and an indwelling stent. There was no obvious intravesical neoplasm. Urine is collected for cytology. 0.035 in glidewire was advanced through his indwelling stent and the stent is removed. Distal ureter was dilated with an 8 F 10 F dilator. Ureteroscopy was undertaken with a 7.5 F digital flexible ureteral scope. Retrograde pyelography was used to outline the collecting system and ensure careful inspection of all calices and infundibula. Careful inspection reveals no recurrent urothelial carcinoma the upper urinary tract. There was no signs of ureteral stricture. I opted to leave the stent out. Scopes wires removed and was taken recovery room in excellent condition. Drains No Pathology Yes Condition Stable
[2024-12-18] MEDS: fentaNYL CITRATE INJ (*CRX) 100 MCG/2 ML VIAL 25 MCG IV PUSH ×4 (11:56→12:07)
[2024-12-18] MEDS: oxyCODONE HCL (*CRX) 5 MG TAB IR PO (12:31)
== END 2024-12-18 12:50 | disposition home or self-care (01) ==
PROVIDERS: PCP Emergency Medicine; Visit Provider Urology
PROC: (CPT 52352; principal; 2024-12-18 11:30)
DX: Z08 Encounter for follow-up examination after completed treatment for malignant neoplasm (principal); E78.5 Hyperlipidemia, unspecified; E03.9 Hypothyroidism, unspecified; I10 Essential (primary) hypertension; K21.9 Gastro-esophageal reflux disease without esophagitis; J44.9 Chronic obstructive pulmonary disease, unspecified; G25.81 Restless legs syndrome; I25.10 Atherosclerotic heart disease of native coronary artery without angina pectoris; F41.8 Other specified anxiety disorders; I25.2 Old myocardial infarction; F17.290 Nicotine dependence, other tobacco product, uncomplicated; F12.90 Cannabis use, unspecified, uncomplicated; E66.9 Obesity, unspecified; Z68.24 Body mass index [BMI] 24.0-24.9, adult; Z79.02 Long term (current) use of antithrombotics/antiplatelets; Z79.891 Long term (current) use of opiate analgesic; Z79.51 Long term (current) use of inhaled steroids; Z79.82 Long term (current) use of aspirin; Z98.890 Other specified postprocedural states; Z98.61 Coronary angioplasty status; Z85.53 Personal history of malignant neoplasm of renal pelvis; Z85.51 Personal history of malignant neoplasm of bladder; Z80.6 Family history of leukemia; Z80.0 Family history of malignant neoplasm of digestive organs; Z82.49 Family history of ischemic heart disease and other diseases of the circulatory system
CPT/HCPCS: 52310; 74420; 88108; J0690; A9270; C1758; C1769; J2405; J2704; J3010; J7120; Q9966

== ENCOUNTER 2025-01-07 10:43 | Outpatient (CLI) | payer MEDICARE, MEDICAID, SELFPAY ==
[2025-01-07 11:37] LABS: Hematocrit 37.5 % (42.0-52.0); Hemoglobin 12.7 g/dL (14.0-18.0); Immature Granulocyte Percent A 0.3 % (0-0.5); Lymphocytes Absolute Auto 1.77 K/mm3 (0.9-3.2); Mean Corpuscular HGB Conc 33.9 g/dl (32-36); Mean Corpuscular Hemoglobin 34.1 pg (26-34); Mean Corpuscular Volume 100.8 fl (80-100); Nucleated Red Blood Cells Absolute Auto 0.000 K/mm3 (0.0-0.012); Nucleated Red Blood Cells Perc 0.0 % (0.0-0.2); Platelet Count Result 212 k/mm3 (150-375); Red Blood Count 3.72 M/mm3 (4.6-6.20); White Blood Count 5.8 K/mm3 (4.5-10.0)
[2025-01-07 12:07] LABS: Anion Gap 6 mmol/L (4-12); Blood Urea Nitrogen 13 mg/dL (9-20); Calcium 8.6 mg/dL (8.4-10.2); Carbon Dioxide 25 mmol/L (22-30); Chloride 106 mmol/L (98-107); Estimated Glomerular Filt Rate > 60; Glucose 109 mg/dL (65-110); Potassium 3.8 mmol/L (3.4-5.0); Sodium 137 mmol/L (137-145)
--- OUTSIDE RECORDS SUMMARY | 2025-01-07 12:14 | XMS_ITS | Encounter Summary ---
Author Organization [facility] Address [address] [place] [address] Phone Care Team Providers Care Cap And Stud Machine Operator Name Role Phone Iker Feldman Primary Care Provider [phone] Juan Gresham MD Unavailable Hemant Delgado MD Unavailable Encounter Details Date Type Department Care Team (Late st Contact Info) Description 03/29/2021 Transcribe Orders [facility] Preop/Pacu II [address] [place] [address] Hemant Delgado MD #2 [facility], [facility] [address] [place] [address] Social History Tobacco Use Types Packs/Day Years [...] COVID-19? 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 documented as of this encounter Plan of Treatment Not on file documented as of this encounter Visit Diagnoses Not on filedocumented in this encounter Care Teams Cap And Stud Machine Operator Relationship Specialty Start Date End Date Iker Feldman [address] [facility] [place] [address] PCP - General Family Medicine 12/05/17 Juan Gresham MD 1225 [facility] [address] [place] [address] Cardiovascular Disease - Cardiology 12/05/17 Hemant Delgado MD #2 [facility] [address] [place] [address] Consulting Physician Urology 01/19/22 documented as of this encounter
--- OUTSIDE RECORDS SUMMARY | 2025-01-07 12:14 | XMS_ITS | Encounter Summary ---
Author Organization [facility] Address [address] [place] [address] Phone Care Team Providers Care Shop Cooper Name Role Phone Iker Feldman Primary Care Provider [phone] Juan Gresham MD Unavailable Hemant Delgado MD Unavailable Encounter Details Date Type Department Care Team (Late st Contact Info) Description 04/26/2021 Transcribe Orders [facility] Preop/Pacu II 1 [place] [address] Hemant Delgado MD #2 [facility], [facility] [address] [place] [address] Pre-op testing (Primary Dx) Social History Tobacco [...] COVID-19? 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 DATABASE ADMIN documented as of this encounter Plan of Treatment Not on file documented as of this encounter Visit Diagnoses Diagnosis Pre-op testing- Primary Preoperative examination, unspecified documented in this encounter Care Teams Shop Cooper Relationship Specialty Start Date End Date Iker Feldman [address] [place] [address] PCP - General Family Medicine 12/05/17 Juan Gresham MD [address] [facility] [address] [place] [address] Cardiovascular Disease - Cardiology 12/05/17 Hemant Delgado MD #2 [facility] [address] [place] [address] Consulting Physician Urology 01/19/22 documented as of this encounter
--- OUTSIDE RECORDS SUMMARY | 2025-01-07 12:14 | XMS_ITS | Encounter Summary ---
Author Organization [facility] Address [address] [place] [address] Phone Care Team Providers Care Community Outreach Specialist Name Role Phone Iker Feldman Primary Care Provider [phone] Juan Gresham MD Unavailable Hemant Delgado MD Unavailable Encounter Details Date Type Department Care Team (Late st Contact Info) Description 05/16/2021 Transcribe Orders [facility] Preop/Pacu II 1 [place] [address] Hemant Delgado MD #2 [facility], [facility] [address] [place] [address] Pre-op testing (Primary Dx) Social History Tobacco [...] COVID-19? No / Unsure 05/17/2021 11:10 AM LIGHTING ENGINEERING TECHNICIAN documented as of this encounter Plan of Treatment Not on file documented as of this encounter Results * SARS-COV-2 BY MOLECULAR (05/17/2021 11:13 AM LIGHTING ENGINEERING TECHNICIAN) SARSCOV2 NOT DETECTED (Referen ce Range for this test is Not Detected ) [facility] THERMOFISHER FAST DX 05/18/2021 11:52 AM LIGHTING ENGINEERING TECHNICIAN [facility] Comment:This test was perfor med by a RT-PCR method. Other NASOPHARYNGEAL STRUCTURE / Unknown Non-Phlebotomy Collection / Unknown 05/17/2021 11:13 AM LIGHTING ENGINEERING TECHNICIAN 05/17/2021 11:57 AM LIGHTING ENGINEERING TECHNICIAN Narrative [facility] - 05/18/2021 11:52 AM LIGHTING ENGINEERING TECHNICIAN Authorized Fact Sheets about this test for providers and patients are available at: https://www.fda.gov/medical-devices/mmxrqwxwx-mcrxhqqook-vyqlgxg-devices/emergen cy-us e-authorizations us Hemant Delgado MD MICROBIOLOGY - GENERAL ORDERABLE S Final Result [facility] [address] [place] [address], documented in this encounter Visit Diagnoses Diagnosis Pre-op testing- Primary Preoperative examination, unspecified documented in this encounter Care Teams Community Outreach Specialist Relationship Specialty Start Date End Date Iker Feldman [address] [place] [address] PCP - General Family Medicine 12/05/17 Juan Gresham MD [address] [facility] [address] [place] [address] Cardiovascular Disease - Cardiology 12/05/17 Hemant Delgado MD #2 [facility] [address] [place] [address] Consulting Physician Urology 01/19/22 documented as of this encounter
--- OUTSIDE RECORDS SUMMARY | 2025-01-07 12:14 | XMS_ITS | Encounter Summary ---
Author Organization [facility] Address [address] [place] [address] Care Team Providers Care Selector Packer Name Role Phone Iker Feldman MD Primary Care Provider [phone] Iker Feldman MD Unavailable [phone] Encounter Details Date Type Department Care Team (Latest Contact Info) Description 11/27/2024 Results Follow-Up [facility] Cardiology [address] [facility] [address] [place] [id number] Juan Gresham MD [address] [facility] [address] [place] [address] [place] [address] [place] [address] Transthoracic Echo (TTE) Complete W Doppler/CF Social History Tobacco Use Types Packs/Day Years Used Date Smoking Tobacco: Every Day Pipe Smokeless Tobacco: Never Alcohol Use Standard Drinks/Week Comments Yes 1 (1 standard drink = 0.6 oz pur e alcohol) Sex and Gender Information Value Date Recorded Sex Assigned at Not on file Legal Sex Male 9:18 PM ENROLLMENT ELIGIBILITY REPRESENTATIVE Gender Identity Not on file Sexual Orientation Not on file documented as of this encounter Plan of Treatment Not on file documented as of this encounter Visit Diagnoses Not on filedocumented in this encounter Care Teams Selector Packer Relationship Specialty Start Date End Date Iker Feldman MD PCP - General 06/09/16 Iker Feldman MD Family Medicine 03/26/17 documented as of this encounter
--- OUTSIDE RECORDS SUMMARY | 2025-01-07 12:14 | XMS_ITS | Encounter Summary ---
Author Organization [facility] Address [address] [place] [address] Phone Care Team Providers Care Study Abroad Advisor Name Role Phone Iker Feldman Primary Care Provider [phone] Juan Gresham MD Unavailable Hemant Delgado MD Unavailable Reason for Referral * Radiology Services (Routine) - Closed Specialty Diagnoses / Procedures Referred By Contac t Referred To Contact Radiology Diagnoses Pre-op testing Procedures EKG 12 LEAD Laurent Abebe APRN, CRNA #1 [place] [address] Phone: tel: fax: Referral ID Status Reason Start Date Expiration Date Visits Re quested Visits Authorized [id number] Closed 03/29/2021 1 1 RICAL CONTROL NESTING OPERATOR Encounter Details Date Type Department Care Team (Late st Contact Info) Description 03/29/2021 Transcribe Orders [facility] Preop/Pacu II 1 [place] [address] Laurent Abebe APRN, CRNA #1 [place] [address] Pre-op testing (Primary Dx) Social History Tobacco [...] COVID-19? No / Unsure 03/29/2021 2:12 PM NUMERICAL CONTROL NESTING OPERATOR documented as of this encounter Plan of Treatment Not on file documented as of this encounter Results * HEMOGLOBIN & HEMATOCRIT (H&H) (04/25/2021 7:56 AM NUMERICAL CONTROL NESTING OPERATOR) Pathologist [facility] HEMOGLOBIN (HGB) 14.7 13.0 - 16.5 g/dL 04/25/2021 8:12 AM NUMERICAL CONTROL NESTING OPERATOR [facility] HEMATOCRIT (HCT) 44.9 38.0 - 50.0 % 04/25/2021 8:12 AM NUMERICAL CONTROL NESTING OPERATOR [facility] Blood Venipuncture / Unknown 04/25/2021 7:56 AM NUMERICAL CONTROL NESTING OPERATOR 04/25/2021 8:07 AM NUMERICAL CONTROL NESTING OPERATOR us Laurent Nathanatzke REAL ESTATE REP, CYLINDER WORKER HEMATOLOGY ORDERAB LES Final Result [facility] #1 [place] [address] * (ABNORMAL) BASIC METABOLIC PANEL W/ CALCIUM TOTAL (04/25/2021 7:56 AM NUMERICAL CONTROL NESTING OPERATOR) SODIUM 133(L) 136 - 144 mmol/L 04/25/2021 8:32 AM NUMERICAL CONTROL NESTING OPERATOR [facility] POTASSIUM 4.6 3.5 - 5.1 mmol/L 04/25/2021 8:32 AM [facility] CHLORIDE 99(L) 100 - 110 mmol/L 04/25/2021 8:32 AM [facility] CO2, VENOUS 27 22 - 32 mmol/L 04/25/2021 8:32 AM [facility] ANION GAP 11.6 8.0 - 20.0 mmol/L 04/25/2021 8:32 AM [facility] GLUCOSE 111(H) 70 - 99 mg/dL 04/25/2021 8:32 AM NUMERICAL CONTROL NESTING OPERATOR [facility] BUN 11 8 - 23 mg/dL 04/25/2021 8:32 AM [facility] CREATININE, BLOOD 0.90 0.80 - 1.30 mg/dL 04/25/2021 8:32 AM [facility] BUN/CREATININE RATIO 12 12 - 20 ratio 04/25/2021 8:32 AM [facility] CALCIUM 9.4 8.9 - 10.3 mg/dL 04/25/2021 8:32 AM [facility] GFR, EST. NONAFRICAN >60 >=60 04/25/2021 8:32 AM [facility] GFR, EST. >60 >=60 04/25/2021 8:32 AM [facility] Comment: Creatinine Clearance is the preferred criteria for selecting drug dose adjustments in renally impaired patients. The GFR is provided as additional pertinent clinical information. GFR is reported in mL/min/1.73 sq m. IS THE PATIENT REQUIRED TO BE FASTING? No 04/25/2021 8:32 AM [facility] Blood Venipuncture / Unknown 04/25/2021 7:56 AM NUMERICAL CONTROL NESTING OPERATOR 04/25/2021 8:07 AM NUMERICAL CONTROL NESTING OPERATOR us Laurent Abebe REAL ESTATE REP, CYLINDER WORKER CHEMISTRY ORDERABL ES Final Result [facility] #1 [place] [address] * EKG 12 LEAD (04/25/2021 7:43 AM NUMERICAL CONTROL NESTING OPERATOR) Ventricular Rate BPM EXTERNAL EKG Atrial Rate BPM EXTERNAL EKG P-R Interval 194 ms EXTERNAL EKG QRS Duration 100 ms EXTERNAL EKG Q-T Duration 472 ms EXTERNAL EKG QTC CALCULATION 427 ms EXTERNAL EKG P [place] 79 degrees EXTERNAL EKG R [place] 49 degrees EXTERNAL EKG T [place] 67 degrees EXTERNAL EKG 04/25/2021 7:43 AM NUMERICAL CONTROL NESTING OPERATOR Impressions EXTERNAL EKG - 04/25/2021 9:08 AM NUMERICAL CONTROL NESTING OPERATOR Sinus bradycardia Abnormal R wave progression [...] significant changes noted Confirmed by Lauren Mahmood [id number] on 04/25/2021 9:08:06 AM Laurent Abebe REAL ESTATE REP, CYLINDER WORKER IMG ECG ORDERABLES Final Result EXTERNAL EKG documented in this encounter Visit Diagnoses Diagnosis Pre-op testing- Primary Preoperative examination, unspecified Pre-op testing Preoperative examination, unspecified documented in this encounter Care Teams Study Abroad Advisor Relationship Specialty Start Date End Date Iker Feldman [address] [address] PCP - General Family Medicine 12/05/17 Juan Gresham MD [address] [facility] [address] [place] [address] Cardiovascular Disease - Cardiology 12/05/17 Hemant Delgado MD #[address] [address] Consulting Physician Urology 01/19/22 documented as of this encounter
--- OUTSIDE RECORDS SUMMARY | 2025-01-07 12:14 | XMS_ITS | Clinical Summary ---
Author Organization [facility] [place] [address] [facility] [address] Address [address] [place] [address] Care Team Providers Care Crt Name Role Phone Iker Feldman MD Primary Care Provider [phone] Iker Feldman MD Unavailable [phone] Allergies Active Allergy Reactions Criticality Noted Date [...] 1 tablet (88 mcg total) by mouth cash poster before breakfast Active albuterol HFA (PROVENTIL HFA,VENTOLIN [...] needed for pain Active cholecalciferol (VITAMIN D-3) 36533 unit tablet Take 1 tablet (50,000 Units total) by mouth once a week Active carvediloL (COREG) 3.125 mg tabletIndications :Coronary artery disease involving northwestern shoshone coronary artery of northwestern shoshone heart without angina pectoris Take 1 tablet (3.125 mg total) by mouth 2 (two) times a day with meals 180 tablet 3 4 Active nitroglycerin (NITROSTAT) 0.4 mg SL tabletIndications :Coronary artery disease involving northwestern shoshone coronary artery of northwestern shoshone heart without angina pectoris Place 1 tablet (0.4 mg total) under the tongue every 5 (five) minutes as needed for chest pain Up to 3 doses 25 tablet 4 Active lisinopriL (PRINIVIL,ZESTRIL ) 10 mg tabletIndications :Coronary artery disease involving northwestern shoshone coronary artery of northwestern shoshone heart without angina pectoris TAKE ONE TABLET BY MOUTH EVERY DAY 90 tablet 5 Active clopidogreL (PLAVIX) 75 mg tabletIndications :Coronary artery disease involving northwestern shoshone coronary artery of northwestern shoshone heart without angina pectoris TAKE ONE TABLET BY MOUTH DAILY 90 tablet 5 Active atorvastatin (LIPITOR) 80 mg tabletIndications :Coronary artery disease involving northwestern shoshone coronary artery of northwestern shoshone heart without angina pectoris Take 1 tablet (80 mg total) by mouth nightly 90 tablet 6 5 Active Active Problems Problem Noted Date Diagnosed Date Atherosclerosis of coronary artery 12/12/2013 Overview (06/15/2016): Coronary atherosclerosis Encounters Date Type Department Care Team Description 11/27/2024 11:15 AM CDT Ancillary Procedure [facility] Cardiology [address] [place] [address] Coronary artery disease involving northwestern shoshone coronary artery of northwestern shoshone heart without angina pectoris 11/27/2024 Results Follow-Up [facility] Cardiology [facility] [address] [place], [place] [address] [address] Bev Dillon MD Transthoracic Echo (TTE) Complete W Doppler/CF 11/06/2024 Telephone [facility] Cardiology [address] [place] [address] [place] [address] Beatrice Mcnally MA Pre-Op Form 11/05/2024 11:00 AM CDT Office Visit [facility] Cardiology [address] [place] [address] Bev Dillon MD Coronary artery disease involving northwestern shoshone coronary artery of northwestern shoshone heart without angina pectoris (Primary Dx); History of ST elevation myocardial infarction (STEMI); Status post angioplasty with stent; Cigar smoker from Last 3 Months Surgical History Surgery [...] on file Legal Sex Male 9:18 PM OFFAL 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 Gender Identity Not on file Sexual Orientation [...] Procedure Name Priority Date/Time Associated Diagnosis Comments TRANSTHORACIC ECHO (TTE) COMPLETE W DOPPLER/CF WO CONTRAST Routine 11/27/2024 12:25 PM CDT Coronary artery disease involving northwestern shoshone coronary artery of northwestern shoshone heart without angina pectoris ELECTROCARDIOGRAM REPORT Routine 025 11:33 AM CDT Coronary artery disease involving northwestern shoshone coronary artery of northwestern shoshone heart without angina pectoris POCT LIPID PANEL Routine 11/05/2024 11:3 2 AM CDT Coronary artery disease involving northwestern shoshone coronary artery of northwestern shoshone heart without angina pectoris from Last 3 Months Results * TRANSTHORACIC ECHO (TTE) COMPLETE W DOPPLER/CF WO CONTRAST (11/27/2024 12:25 PM CDT) EF Mod BP 68 % CONS SCIMAGE Anatomical Region Laterality Modality Ultrasound 11/27/2024 11:4 0 AM CDT Narrative 11/27/2024 12:51 PM CDT [facility] Cardiology [address] [facility] [address], [place] [address] [address] [facility] [address] [address] P:[phone] P:[phone] Echocardiographic Report Patient Name: BHANU CONNER L : 1955 Study Date: 11/27/2024 11:40:34 AM Sex: M [employer] Counselor: Lorenza Parker)(CT), [place] Location: [place] Ref Provider: BEV DILLON Height(Cm): 173 BSA: 1.9 Weight(Kg): 75.3 Heart Rate: 52 BP: 102 / 50 Quality: Good Order Provider: BEV DILLON PROCEDURES: Echocardiographic Report: Transthoracic echocardiogram with complete 2D, M-Mode, and color Doppler examination. With Strain Analysis. INDICATIONS: I25.10 Atherosclerotic heart disease of northwestern shoshone coronary artery without angina pectoris. MEASUREMENTS: 2D/MM Value Range Doppler Value Range EF Mod BP 68 % [ 52 - 72 ] GO Vmax 2.49 cm2 [ 2.00 - 4.00 ] LV GLS -19.37 % AV Mean PG 4 mmHg LVIDd 2D 4.85 cm [ 4.20 - 5.80 ] AV Peak Sukh 1.39 m/s [ 1.00 - 1.70 ] LVIDs 2D 2.91 cm [ 2.50 - 4.00 ] AV Peak PG 8 mmHg LVPWd 2D 1.14 cm [ 0.60 - 1.00 ] AV VTI 29.32 cm IVSd 2D 1.05 cm [ 0.60 - 1.00 ] LVOT Diam 1.99 cm [ 1.70 - 2.10 ] AoR Diam 2D 3.55 cm [ 3.10 - 3.70 ] LVOT Peak Sukh 1.11 m/s [ 0.70 - 1.10 ] LA Volume 42.30 ml [ 18.00 - 58.00 ] LVOT VTI 23.35 cm LA Volume Index 22 cc/m2 [ 16 - 28 ] MV E Peak Sukh 0.67 m/s [ 0.60 - 1.30 ] RA Volume 33.00 ml MV A Peak Sukh 0.83 m/s [ 1.00 - 1.20 ] MV Decel Time 186 msec [ 104 - 258 ] PV Peak Sukh 1.02 m/s [ 0.40 - 0.80 ] RV S` 12.24 mmHg Lateral E` 0.11 m/s [ 0.10 - 0.15 ] Septal E` 0.07 m/s [ 0.08 - 0.15 ] E` 0.09 m/s E/E` 7 Tapse 2.26 cm [ 1.71 - 5.00 ] 2D/MM Value Range Doppler Value Range - FINDINGS: Interpretation Site: Exam was interpreted at [facility]. Left Ventricle: Normal left ventricular systolic function. No focal wall motion abnormalities. Normal left ventricular size. Normal left ventricular diastolic function. Ejection fraction is measured at 68 %. Global Longitudinal Strain is -19 %. Right Ventricle: Normal right ventricular size. Normal right ventricular systolic function. Left Atrium: The left atrium is normal in size. Right Atrium: The right atrium is normal in size. Atrial Septum: Normal atrial septum. Mitral Valve: Normal appearance of the mitral valve. Aortic Valve: Normal appearance of the aortic valve. Tricuspid Valve: Normal appearance of the tricuspid valve. Pulmonic Valve: Pulmonic valve not well visualized. Pericardium: Normal pericardium with no significant pericardial effusion. Aorta: Sinus of Valsalva 3.5 cm. IVC: Normal size and normal respiratory collapse consistent with normal right atrial pressure (<5 mmHg). CONCLUSIONS: Normal 2D/Doppler-echocardiographic study with normal left ventricular function and no significant valvular abnormalities. Electronically Signed By: Dr. Galindo Diego 11/27/2024 12:50:50 PM CDT Procedure Note Galindo Diego MD - 11/27/2024 [facility] Medical [facility] Cardiology [address] [facility] [address], [place] [address] [address] [facility] [address] [address] P:[phone] P:[phone] Echocardiographic Report Patient Name: BHANU CONNER L : 1955 Study Date: 11/27/2024 11:40:34 AM Sex: M [employer] Counselor: Lorenza Parker)(CT), [place] Location: [place] Ref Provider: BEV DILLON Height(Cm): 173 BSA: 1.9 Weight(Kg): 75.3 Heart Rate: 52 BP: 102 / 50 Quality: Good Order Provider: BEV DILLON PROCEDURES: Echocardiographic Report: Transthoracic echocardiogram with complete 2D, M-Mode, and color Dopplerexamination. With Strain Analysis. INDICATIONS: I25.10 Atherosclerotic heart disease of northwestern shoshone coronary artery withoutangina pectoris. MEASUREMENTS: 2D/MM Value Range Doppler ValueRange EF Mod BP 68 % [ 52 - 72 ] GO Vmax 2.49cm2 [ 2.00 - 4.00 ] LV GLS -19.37 % AV Mean PG 4mmHg LVIDd 2D 4.85 cm [ 4.20 - 5.80 ] AV Peak Sukh 1.39m/s [ 1.00 - 1.70 ] LVIDs 2D 2.91 cm [ 2.50 - 4.00 ] AV Peak PG 8mmHg LVPWd 2D 1.14 cm [ 0.60 - 1.00 ] AV VTI 29.32cm IVSd 2D 1.05 cm [ 0.60 - 1.00 ] LVOT Diam 1.99cm [ 1.70 - 2.10 ] AoR Diam 2D 3.55 cm [ 3.10 - 3.70 ] LVOT Peak Sukh 1.11m/s [ 0.70 - 1.10 ] LA Volume 42.30 ml [ 18.00 - 58.00 ] LVOT VTI 23.35cm LA Volume Index 22 cc/m2 [ 16 - 28 ] MV E Peak Sukh 0.67m/s [ 0.60 - 1.30 ] RA Volume 33.00 ml MV A Peak Sukh 0.83m/s [ 1.00 - 1.20 ] MV Decel Time 186 msec [ 104 - 258 ] PV Peak Sukh 1.02 m/s [ 0.40 - 0.80 ] RV S` 12.24 mmHg Lateral E` 0.11 m/s [ 0.10 - 0.15 ] Septal E` 0.07 m/s [ 0.08 - 0.15 ] E` 0.09 m/s E/E` 7 Tapse 2.26 cm [ 1.71 - 5.00 ] 2D/MM Value Range Doppler ValueRange - FINDINGS: Interpretation Site: Exam was interpreted at [facility]. Left Ventricle: Normal left ventricular systolic function. No focal wall motionabnormalities. Normal left ventricular size. Normal left ventricular diastolic function.Ejection fraction is measured at 68 %. Global Longitudinal Strain is -19 %. Right Ventricle: Normal right ventricular size. Normal right ventricular systolicfunction. Left Atrium: The left atrium is normal in size. Right Atrium: The right atrium is normal in size. Atrial Septum: Normal atrial septum. Mitral Valve: Normal appearance of the mitral valve. Aortic Valve: Normal appearance of the aortic valve. Tricuspid Valve: Normal appearance of the tricuspid valve. Pulmonic Valve: Pulmonic valve not well visualized. Pericardium: Normal pericardium with no significant pericardial effusion. Aorta: Sinus of Valsalva 3.5 cm. IVC: Normal size and normal respiratory collapse consistent with normal rightatrial pressure (<5 mmHg). CONCLUSIONS: Normal 2D/Doppler-echocardiographic study with normal left ventricularfunction and no significant valvular abnormalities. Electronically Signed By: Dr. Galindo Diego 11/27/2024 12:50:50 PM CDT Result Chris Dillon MD CV ECHO PROCEDURES Final Result * Electrocardiogram Report (11/05/2024 11:33 AM CDT) Result Chris Dillon MD ECG ORDERABLES Edited Result - Final * POCT lipid panel (11/05/2024 11:32 AM CDT) [facility] Signature Cholesterol, POC 116 <200 MG/DL HDL, POC 40 >=40 mg/dL Triglycerides, POC 92 <=149 mg/dL LDL Cholesterol POC 58 <=129 mg/dL Chol/HDL Ratio, POC 1.4 NONE Non-HDL Cholesterol, POC 76 NONE mg/dL Cholesterol Total, POC 116 30 - 199 mg/dL Capillary blood 11/05/2024 1 1:32 AM CDT Result Chris Dillon MD POINT OF CARE TEST ORDERABLES Fi nal Result from Last 3 Months Insurance [facility] MEDICARE AD[facility]ANTAGE [facility] Address: [address] [address] [place] [address] IDPA Care Teams Crt Relationship Specialty Start Date End Date Iker Feldman MD PCP - General 06/09/16 Iker Feldman MD Family Medicine 03/26/17
--- OUTSIDE RECORDS SUMMARY | 2025-01-07 12:14 | XMS_ITS | Clinical Summary ---
Author Organization [facility] Address [address] [place] [address] Phone Care Team Providers Care Spindle Setter Name Role Phone Iker Feldman Primary Care Provider [phone] Juan Gresham MD Unavailable Hemant Delgado MD [...] minutes as needed. Active ergocalciferol (VITAMIN D) 92635 UNIT Capsule Take 1 Capsule by mouth. [...] Comments Blood Pressure 138/74 01/19/2022 8:53 AM NUCLEAR CHEMISTRY TECHNICIAN Pulse 54 01/19/2022 8:53 AM NUCLEAR CHEMISTRY TECHNICIAN Temperature 36.4 C (97.6 F) 01/19/2022 8:53 AM NUCLEAR CHEMISTRY TECHNICIAN Respiratory Rate 18 01/19/2022 8:53 AM NUCLEAR CHEMISTRY TECHNICIAN Oxygen Saturation 98% 01/19/2022 8:53 AM NUCLEAR CHEMISTRY TECHNICIAN Inhaled Oxygen Concentration - - Weight 72.2 kg (159 lb 3.2 oz) 01/19/2022 8:53 A M NUCLEAR CHEMISTRY TECHNICIAN Height 174 cm (5' 8.5) 09/16/2021 11:49 AM CDT Body Mass Index 23.85 09/16/2021 11:49 AM CDT Plan of Treatment Health Maintenance Due Date Last Done Comments Hepatitis C Virus (HCV) Screening 1955 TdaP Immunization 1955 Medicare Initial AWV [id number] 06/11/1995 Cologuard 1998 Colonoscopy 1998 Colorectal Cancer Screening 1998 Immunochemical Fecal Occult Blood 1998 Pneumococcal Immunization (50+ years) (2 of 2 - PCV) 03/09/2015 03/09/2014 Influenza Immunization (#1) 11/10/202411/10, 11/17/2020, 11/25/2019, Additional history exists SARS-COV-2 Immunization ( season) 2024 12/30/2021, 05/09/2021, 12/10/2020, Additional history exists Respiratory [...] this topic Medical Devices Implanted Type Area Briar Wood Sorter Device Identifier Shelf Expiration Date Model / Serial / Lot Stent Ureteral 6fr 2.1fr 26cm 2 Pigtail Curve 2 Durometer Taper Tip Loprfl Graduated Polaris Ultra - [id number] Implanted:Qty : 1 on 03/19/2018 by Viviana Junior MD at [facility] IMPLANT Right: Ureter [employer] 10/03/2020 [id number] 0 / [id number] 0 / [id number] Stent Ureteral 6fr 2.1fr 24cm 2 Pigtail Curve 2 Durometer Taper Tip Loprfl Graduated Polaris Ultra - [id number] Implanted:Qty : 1 on 04/29/2021 by Hemant Delgado MD at [facility] IMPLANT Left: Ureter [employer] 01/12/2024 [id number] 0 / [id number] 0 / [id number] Stent Ureteral 6fr 2.1fr 24cm 2 Pigtail Curve 2 Durometer Taper Tip Loprfl Graduated Polaris Ultra - [id number] Implanted:Qty : 1 on 05/20/2021 by Hemant Delgado MD at [facility] IMPLANT Left: Ureter [employer] 02/04/2024 [id number] 0 / [id number] 0 / [id number] Stent Ureteral 6fr 2.1fr 24cm 2 Pigtail Curve 2 Durometer Taper Tip Loprfl Graduated Polaris Ultra - [id number] Implanted:Qty : 1 on 05/20/2021 by Hemant Delgado MD at [facility] IMPLANT Right: Ureter [employer] 02/04/2024 [id number] 0 / [id number] 0 / [id number] Stent Ureteral 6fr 2.1fr 28cm 2 Pigtail Curve 2 Durometer Taper Tip Loprfl Graduated Polaris Ultra - [id number] Implanted:Qty : 1 on 09/09/2021 by Hemant Delgado MD at [facility] IMPLANT Right: Ureter [employer] 02/08/2024 [id number] 0 / [id number] 0 / [id number] Explanted Type Area Briar Wood Sorter Device Identifier Shelf Expiration Date Model / Serial / Lot Stent Ureteral 6fr 2.1fr 24cm 2 Pigtail Curve 2 Durometer Taper Tip Loprfl Graduated IS Decisions Ultra - [id number] Implanted:Qty : 1 on 04/29/2021 by [facility] Explanted:Qty : 1 on 05/20/2021 by [facility] IMPLANT Right: Ureter Prized 01/12/2024 [id number] 0 / [id number] 0 / [id number] Procedures Procedure Name Priority Date/Time Associated Diagnosis [...] Maintenance Insurance MEDICAID [place] MEDICARE C [facility] [place] [id number] Advance Directives Documents on File Type Date Recorded Patient Park Activities Coordinator Expl anation Other Advance Directive 09/21/2021 3:35 [...] Medical Clearance fo r surgery Care Teams Spindle Setter Relationship Specialty Start Date End Date [address] [place] [address] PCP - General Family Medicine 12/05/17 Juan Gresham MD [facility] [address] [place] [address] Cardiovascular Disease - Cardiology 12/05/17 Hemant Delgado MD #2 [facility] [address] [place] [address] Consulting Physician Urology 01/19/22
--- OUTSIDE RECORDS SUMMARY | 2025-01-07 12:14 | XMS_ITS | Encounter Summary ---
Author Organization [facility] Address [address] [place] [address] Phone Care Team Providers Care Creative Technologist Name Role Phone Iker Feldman Primary Care Provider Juan Gresham MD Unavailable Hemant Delgado MD Unavailable Encounter Details Date Type Department Care Team (Late st Contact Info) Description 03/29/2021 Transcribe Orders [facility] Preop/Pacu II 1 [place] [address] Hemant Delgado MD #[address] [facility] [address] [place] [address] Pre-op testing (Primary Dx) Social History Tobacco [...] COVID-19? No / Unsure 03/29/2021 2:12 PM FUND RAISER documented as of this encounter Plan of Treatment Not on file documented as of this encounter Results * SARS-COV-2 BY MOLECULAR (04/25/2021 7:54 AM FUND RAISER) SARSCOV2 NOT DETECTED (Referen ce Range for this test is Not Detected ) [facility] THERMOFISHER FAST DX 04/25/2021 6:50 PM FUND RAISER [facility] Comment:This test was perfor med by a RT-PCR method. Other NASOPHARYNGEAL STRUCTURE / Unknown Non-Phlebotomy Collection / Unknown 04/25/2021 7:54 AM FUND RAISER 04/25/2021 8:44 AM FUND RAISER Narrative [facility] - 04/25/2021 6:50 PM FUND RAISER Authorized Fact Sheets about this test for providers and patients are available at: https://www.fda.gov/medical-devices/nlklmpzaw-yyriurboug-yydyazx-devices/emergen cy-us e-authorizations us Hemant Delgado MD MICROBIOLOGY - GENERAL ORDERABLE S Final Result [facility] [address] [place] [address], documented in this encounter Visit Diagnoses Diagnosis Pre-op testing- Primary Preoperative examination, unspecified documented in this encounter Care Teams Creative Technologist Relationship Specialty Start Date End Date Iker Feldman [address] [place] [address] PCP - General Family Medicine 12/05/17 Juan Gresham MD [address] [facility] [address] [place] [address] Cardiovascular Disease - Cardiology 12/05/17 Hemant Delgado MD #2 [facility] [address] [place] [address] Consulting Physician Urology 01/19/22 documented as of this encounter
== END 2025-01-07 10:44 | disposition home or self-care (01) ==
PROVIDERS: PCP Emergency Medicine; Visit Provider Surgery
DX: K40.90 Unilateral inguinal hernia, without obstruction or gangrene, not specified as recurrent (principal)
CPT/HCPCS: 36415; 80048; 85025; 86850; 86900; 86901

== ENCOUNTER 2025-01-14 00:04 | Day surgery (SDC) | payer MEDICARE, MEDICAID, SELFPAY ==
--- NOTE | 2025-01-05 13:17 | PC.NURSE ---
[facility] has started construction of its new state of the art ER which will open Spring 2026. With this, we anticipate parking may be a challenge for some our surgical patients and families. Parking spaces are limited but are available for all Surgical, obstetrics, and ER patients sharing this lot. If you arrive and find you are having a hard time finding a parking space, please note that we understand the challenges, please drive around the hospital and park near Hospital Entrance 1. When you enter this entrance, you can ask a volunteer to direct or take you back to the surgical waiting area to check in. We appreciate everyone?s understanding of these expected challenges while we build for your future. Report to the Outpatient Waiting Room, entrance under the green pavilion located off [address], at time _6:30 AM on date _01/14/25 . Planned Procedure Time: ___8:30 AM .? Time changes happen often and if your time is changed the preop area will call you the afternoon before. - You and your visitor will be asked to self-screen and do not enter if you have any COVID symptoms. Please call surgeon if you need to reschedule. - A mask is optional within the hospital at this time. Patients may have clear liquids (water, carbonated beverages, clear teas, apple juice) until 3 hours prior to surgery(5:30 AM) with a maximum of 20 ounces. - No food from midnight until time of surgery and no smoking, or chewing tobacco (or any form of nicotine). No chewing gum, candy or mints. Take only the following medications with a SIP of water on the morning of surgery: _INHALER_, CARVEDILOL,HYDROCODONE IF NEEDED FOR PAIN,LEVOTHYROXINE_XANAX IF NEEDED DO NOT STOP ANY OF YOUR OTHER PRESCRIPTION MEDICATIONS PRIOR TO SURGERY EXCEPT THE FOLLOWING Hold all vitamins and supplements for 3 days per anesthesiologist.LAST DOSE 01/10/25 Medications to discontinue per physician __WIFE STATES__HOLD PLAVIX AND ASPIRIN 7 DAYS _PER OP PER DR DILLON Date to take last dose___01/06/25 Please no make-up, nail rwandan, hairspray, perfume, deodorant, or body powder the day of surgery.? No jewelry (including any body piercings) or valuables the day of surgery, leave them at home.? Please take a shower or bath the night before, or the morning of, surgery with an antibacterial soap.? Wear comfortable, loose fitting clothing.? Children are encouraged to wear pajamas. - Jewelry must be removed prior to entering the operating room.? Rings and piercings that are not removed may be cut off. - The hospital will not accept responsibility for valuables.? - Please leave all valuables, including medications, at home the day of surgery. If you are going home after surgery, a licensed tank driver must drive you home.? - NO public transportation without another adult if you receive anesthesia. - We recommend that an adult stay with you for 24 hours following discharge. - We also recommend that you do not drive, make important decision, drink alcoholic beverages, or take any drugs that were not prescribed by your health care provider for at least 24 hours after your discharge time. For Pediatric surgeries, we recommend two adults accompany the child home. Follow any additional instructions given to you from your surgeon. Telephone instructions given to __WIFE MELISSA and asked if any additional questions and then verbalized understanding. Patient advised to call surgeon office or pre surgery nurse liaison [phone] if any additional questions.
[2025-01-05 13:32] VITALS: BMI 25.0
--- NOTE | 2025-01-13 12:37 | P.SS_ITS ---
Same Day Admit/Disch: HPI History of Present Illness Chief complaint: lt ing hernia Narrative: Bhanu Álvarez is a 69 year old male who noticed a bulge in the left groin last summer. Patient reports he was moving about 6 months ago and was doing heavy lifting when he first noticed the discomfort and bulging. He states the pain only comes with certain activities. Patient reports the bulge is reducible, but has increased in size and discomfort since he first noticed. He reports tolerating a normal diet and having regular BM's. Patient has history of MN and stent placement in 2012 and takes clopidogrel 75mg. Patient takes hydrocodone for chronic pain in right ankle. He also underwent chemotherapy for bladder cancer last summer starting on 10/02/2024 and lasting 6 weeks. He is taken to surgery at this time for robotic laparoscopic repair of his left inguinal hernia with mesh. PENDING SALE TO [facility] Past Medical History Medical History Non-cardiac chest pain Gastroesophageal reflux disease Chronic obstructive pulmonary disease ST elevation myocardial infarction (STEMI) (07/2012) Restless leg syndrome Hepatitis C virus infection resolved after antiviral drug therapy Bladder cancer Continuous tobacco abuse Coronary artery disease Hypothyroidism Essential hypertension Hyperlipidemia Anxiety and depression Surgical History Surgical History History of cystoscopy Abnormal cystoscopy x8 Right eye trauma History of cardiac catheterization (08/01/12) Aspiration thrombectomy, PTCA, stent x2 in overlapping fashion in major diagonal branch. Per Dr. Gresham. Family History Family History Mother Acute myocardial infarction Leukemia Father Colon cancer Sibling Heart problem Social History Social History Social History: Surrogate medical decision maker: Jodee Álvarez, spouse. Code status: Full code. Smoking packs per day: 1 Smoking cigarettes per day: 20.0 Years smoked: 30 Smoking pack-years: 30.00 Smoking status: Former smoker Tobacco type: cigarettes, pipe and cigars Second hand tobacco smoke exposure: Yes Smoking end date: 03/12/94 Additional smoking assessment comments: QUIT GIGARRETTES 2002, SMOKES 2 CIGARS/DAY & PIPE WHEN OUT OF CIGARS Alcohol intake: current Drinks per week: 2 Alcohol use details: BEER Substance use: current Substance use type: marijuana Other substance usage details: smokes 3 times a week marijuana Last use: 12/25/22 Do You Feel Safe in your Home?: Yes Lack of Transportation: No Lack of Food: Never True Current Housing: I Have Housing Concerned About Future Housing: No Difficulty Paying Gas/Electric Bills: No Difficulty Paying for Meds: No Currently Unemployed: No Education: High School Diploma/GED Difficulty w/ Childcare or Family Care: No Living arrangements: with family Additional living arrangements comments: Spiritual care concerns: No Same Day Admit/Disch: Med Pre-admit Medications Home Medications ?Medication ?Instructions ?Recorded ?Confirmed ?Type alprazolam 1 mg tablet (Xanax) 1 mg PO DAILY PRN Anxie ty 09/14/20 01/05/25 History atorvastatin 40 mg tablet (Lipitor) 40 mg PO DAILY 08/3001/14/25 History calcium phosphate,dibasic 77 50,000 tablet PO [id number] 09/14/20 01/05/25 History mg-vitamin D3 400 unit tablet carvedilol 3.125 mg tablet (Coreg) 3.125 mg PO BID 08/3001/14/25 History clopidogrel 75 mg tablet (Plavix) 75 mg PO DAILY 09/1401/14/25 History Held on 01/14/25. Instructions: Resume on 01/17/25. hydrocodone 10 mg-acetaminophen 1 tablet PO Q6-8H PRN Pain 09/14/20 01/05/25 History 325 mg tablet levothyroxine 88 mcg tablet 88 mcg PO DAILY 09/14/20 1 03/16/24 History (Synthroid) lisinopril 10 mg tablet (Zestril) 10 mg PO DAILY 09/1401/14/25 History albuterol sulfate 90 mcg/actuation 2 puff inhalation Q ID PRN 05/03/21 01/05/25 History aerosol inhaler Shortness Of Breath nitroglycerin 0.4 mg sublingual 0.4 mg sublingual Q5-1 5M PRN Chest 05/03/21 01/05/25 History tablet Pain umeclidinium 62.5 mcg/actuation 1 inh inhalation DAILY 05/03/21 01/05/25 History blister powder for inhalation (Incruse Ellipta) aspirin 81 mg chewable tablet 81 mg PO DAILY 07/28/22 01/14/25 History pantoprazole 40 mg tablet,delayed 20 mg (1/2 x 40 mg) PO QAM #90 tabs 12/17/24 01/05/25 Rx release Review of Systems Review of Systems All systems reviewed & are unremarkable except as noted in HPI and below (HPI) Exam Const: General: comfortable, no acute distress, alert and awake HENMT: Head: normocephalic and atraumatic Mouth: Yes Normal oral and palatal mucosa present Eyes: Conjunctivae: conjunctivae normal Pupils: Equal, round and reactive pupils present EOM: EOMs intact bilaterally Neck: Neck: normal visual inspection, no lymphadenopathy and nontender Resp: Effort & Inspection: normal respiratory effort Auscultation: clear to auscultation bilaterally Cardio: Rate: regular rate Rhythm: regular rhythm Heart sounds: no gallops, no murmurs and no rubs GI: Inspection: non-distended GI Palp: Yes Soft to palpation, No Tenderness to palpation present (GI), No Hepatomegaly present and No Splenomegaly present : Male General Exam: Yes hernia (Reducible left inguinal hernia) Penis: Yes normal penis Scrotum: scrotum normal Testes: Testes normal Skin: Lesions: no lesions Rashes: no rashes Neuro: General: no focal motor deficits and CN's II-XI intact bilaterally Cranial nerves: Yes Equal, round and reactive pupils present, Yes Bilaterally intact EOM present, Yes facial symmetry and Yes Midline tongue present Speech: normal speech Motor exam (neuro): 5/5 motor strength present throughout and Motor abnormalities not present Extrem: General: no clubbing, cyanosis or edema and edema Psych: Affect: normal affect Thought process: Normal thought process present Insight: Good insight present (Psych) DS: Summary Time Spent with Patient Time attestation: Total time spent providing and/or coordinating discharge services: DS: Admitting Diagnosis Discharge Date 01/13/2025 Admitting Diagnosis * Symptomatic, reducible, left inguinal hernia-plan to proceed with robotic laparoscopic repair under general anesthesia. Mesh will be used. This was di scussed with the patient. The procedure, length of recovery, risks benefits and potential complications have been discussed. All questions were answered. Patient understands and agrees to go ahead. * History of MN and coronary stent 2012 * Chronic anti thrombotic therapy * Smoker * COPD * Hypertension DS: Discharge Diagnosis Discharge Diagnosis (1) Left inguinal hernia: Code(s): K40.90 - Unilateral inguinal hernia, without obstruction or gangrene, not specified as recurrent Status: Chronic Assessment and Plan: Robotic laparoscopic repair left inguinal hernia with mesh per Dr. Tsang 01/14/2025 (2) Hx of right coronary artery stent placement: Code(s): Z95.5 - Presence of coronary angioplasty implant and graft Status: Chronic (3) Antiplatelet or antithrombotic long-term use: Code(s): Z79.02 - emt intermediate (current) use of antithrombotics/antiplatelets Status: Chronic (4) Chronic obstructive pulmonary disease: Qualifiers: COPD type: emphysema Emphysema type: panlobular Qualified Code(s): J43.1 - Panlobular emphysema Code(s): J44.9 - Chronic obstructive pulmonary disease, unspecified Status: Chronic (5) Cancer of overlapping sites of bladder: Code(s): C67.8 - Malignant neoplasm of overlapping sites of bladder Status: Chronic (6) Tobacco dependence: Code(s): F17.200 - Nicotine dependence, unspecified, uncomplicated Status: Chronic (7) Opioid dependence: Qualifiers: Substance use status: uncomplicated Qualified Code(s): F11.20 - Opioid dependence, uncomplicated Code(s): F11.20 - Opioid dependence, uncomplicated Status: Chronic Discharge Plan Discharge Patient Disposition: Home Discharge Instructions: 1. May shower or bathe the day after surgery over incisions. Okay to wash incisions with soap and water. 2. Call office for: -Wound increasingly painful or bleeding -Vomiting -Fever of greater than 101 degrees 3. Wear scrotal support at all times except when sleeping or showering/bathing for 1 week 4. If no bowel movement for three days, take 1 oz. (30 ml) Milk of Magnesia, if no results, take Fleets enema. 5. No heavy lifting > 15-20 pounds for 2 weeks. 6. No driving for 3 days or while taking narcotic pain medications. 7. Up walking 10-30 minutes three times per day. 8. Resume previous home medications. 9. Follow-up 10-14 days in office for wound check or as previously scheduled. 10. Take the chronic hydrocodone/Tylenol pain medication as needed for for postoperative pain. If additional narcotic pain medication needed, call your prescribing provider, probably Dr. Feldman, and request additional pain medication. OK to take Tylenol over the counter for pain as well. 11. NUTRITION: Start out by drinking fluids and increase your diet as tolerated. If you experience nausea, try dry toast, crackers, and 7-UP. If nausea or vomiting persists, contact your surgeon?s office. Patient Language: American Stand Alone Forms: General Discharge Instructions Follow-up/Referrals: Davey Tsang MD [Physician, General Surgery] - 3 Weeks Discharge Medications: Continued pantoprazole 40 mg tablet,delayed release (DR/EC) 20 mg PO QAM Qty: 90 4RF aspirin 81 mg Tablet,Chewable 81 mg PO DAILY atorvastatin [Lipitor] 40 mg Tablet 40 mg PO DAILY alprazolam [Xanax] 1 mg Tablet 1 mg PO DAILY PRN (Reason: Anxiety) hydrocodone-acetaminophen 10-325 mg Tablet 1 tablet PO Q6-8H PRN (Reason: Pain) carvedilol [Coreg] 3.125 mg Tablet 3.125 mg PO BID Rx Instructions: half a tablet levothyroxine [Synthroid] 88 mcg Tablet 88 mcg PO DAILY lisinopril [Zestril] 10 mg Tablet 10 mg PO DAILY calcium phos,dibas-vitamin D3 77-400 mg-unit Tablet 50,000 tablet PO [id number] nitroglycerin 0.4 mg Tablet, Sublingual 0.4 mg SUBLINGUAL Q5-15M PRN (Reason: Chest Pain) albuterol sulfate 90 mcg/actuation Hfa Aerosol Inhaler 2 puff INHALATION QID PRN (Reason: Shortness Of Breath) Incruse Ellipta 62.5 mcg/actuation Blister With Device 1 inh INHALATION DAILY Held clopidogrel [Plavix] 75 mg Tablet 75 mg PO DAILY Hold Instructions: Resume on 01/17/25.
[2025-01-14] VITALS (9 sets, daily range): BP systolic 118–143; BP diastolic 61–73; PULSE 51–68; RESP 15–20; TEMP 36.3; O2SAT 98–100
[2025-01-14] MEDS: ACETAMINOPHEN 500 MG TABLET 1000 MG PO (07:00)
[2025-01-14] MEDS: KETOROLAC 15 MG/ML VIAL (*BKC) IV PUSH (07:00)
--- NOTE | 2025-01-14 07:36 | WPDANESEPPF ---
Anes - Initial Pre Proc Eval Procedure: Operation Date: 01/14/25 08:30 Proposed Procedures p Robotic Repair Left Inguinal Hernia with Mesh - Davey Tsang MD Date/Time: 01/14/25 07:36 Surgeon: Davey Tsang MD Pre Op Diagnosis: lt ing hernia Patient Data Age: 69 Gender: M Height: 1.73 m Weight: 74.85 kg Allergies Allergy/AdvReac Type Severity Reaction Status Date / Time propoxyphene Allergy Intermediate Hives, Verified 01/05/25 13:16 N/V, Confusion Home Medications ?Medication ?Instructions ?Recorded ?Confirmed ?Type alprazolam 1 mg tablet (Xanax) 1 mg PO DAILY PRN Anxiety 09/14/20 01/05/25 History atorvastatin 40 mg tablet (Lipitor) 40 mg PO DAILY 09/14/20 01/05/25 History calcium phosphate,dibasic 77 50,000 tablet PO [id number] 09/14/20 01/05/25 History mg-vitamin D3 400 unit tablet carvedilol 3.125 mg tablet (Coreg) 3.125 mg PO BID 09/14/20 01/05/25 History clopidogrel 75 mg tablet (Plavix) 75 mg PO DAILY 09/14/20 01/05/25 History hydrocodone 10 mg-acetaminophen 1 tablet PO Q6-8H PRN Pain 09/14/20 01/05/25 History 325 mg tablet levothyroxine 88 mcg tablet 88 mcg PO DAILY 09/14/20 01/05/25 History (Synthroid) lisinopril 10 mg tablet (Zestril) 10 mg PO DAILY 09/14/20 01/05/25 History albuterol sulfate 90 mcg/actuation 2 puff inhalation QID PRN 05/03/21 01/05/25 History aerosol inhaler Shortness Of Breath nitroglycerin 0.4 mg sublingual 0.4 mg sublingual Q5-15M PRN Chest 05/03/21 01/05/25 History tablet Pain umeclidinium 62.5 mcg/actuation 1 inh inhalation DAILY 05/03/21 01/05/25 History blister powder for inhalation (Incruse Ellipta) aspirin 81 mg chewable tablet 81 mg PO DAILY 07/28/22 01/05/25 History pantoprazole 40 mg tablet,delayed 20 mg (1/2 x 40 mg) PO QAM #90 tabs 12/17/24 01/05/25 Rx release Patient hx anesthesia problems: none Family hx anesthesia problems: none Results Review: All pre-operative results and documents have been reviewed as part of the pre-operative evaluation. [facility] Past Medical History Medical History Non-cardiac chest pain Gastroesophageal reflux disease Chronic obstructive pulmonary disease ST elevation myocardial infarction (STEMI) (07/2012) Restless leg syndrome Hepatitis C virus infection resolved after antiviral drug therapy Bladder cancer Continuous tobacco abuse Coronary artery disease Hypothyroidism Essential hypertension Hyperlipidemia Anxiety and depression Surgical History Surgical History History of cystoscopy Abnormal cystoscopy x8 Right eye trauma History of cardiac catheterization (08/01/12) Aspiration thrombectomy, PTCA, stent x2 in overlapping fashion in major diagonal branch. Per Dr. Gresham. Family History Family History Mother Acute myocardial infarction Leukemia Father Colon cancer Sibling Heart problem Social History Social History Social History: Surrogate medical decision maker: Jodee Álvarez, spouse. Code status: Full code. Smoking packs per day: 1 Smoking cigarettes per day: 20.0 Years smoked: 30 Smoking pack-years: 30.00 Smoking status: Former smoker Tobacco type: cigarettes, pipe and cigars Second hand tobacco smoke exposure: Yes Smoking end date: 03/12/94 Additional smoking assessment comments: QUIT GIGARRETTES 2002, SMOKES 2 CIGARS/DAY & PIPE WHEN OUT OF CIGARS Alcohol intake: current Drinks per week: 2 Alcohol use details: BEER Substance use: current Substance use type: marijuana Other substance usage details: smokes 3 times a week marijuana Last use: 12/25/22 Do You Feel Safe in your Home?: Yes Lack of Transportation: No Lack of Food: Never True Current Housing: I Have Housing Concerned About Future Housing: No Difficulty Paying Gas/Electric Bills: No Difficulty Paying for Meds: No Currently Unemployed: No Education: High School Diploma/GED Difficulty w/ Childcare or Family Care: No Living arrangements: with family Additional living arrangements comments: Spiritual care concerns: No Anes - Eval Final PreProcedure Day of Procedure 01/14/25 07:36 Patient weight: normal Lungs: normal air movement Airway: Mallampati scale class II and special considerations (Edentulous. l) Neurological: alert and oriented and other (R eye blindness noted. ) Last oral intake: >/= 8 hours ASA classification: III Emergent: no Anesthetic plan: proceed Anesthesia type and monitoring: general ETT and standard monitoring Results Review: All pre-operative results and documents have been reviewed as part of the pre-operative evaluation. Pt w CAD s/p PTCA x 2 approx 2011, cardiac clearance appreciated. COPD, ex smoker, hyperlipidemia, HTN, pt w good exercise tolerance overall, no cp or sob w 1-2 fos. Informed Consent: The patient's anesthetic plan and its attendant risks and benefits were discussed with the patient/family/POA. Questions were solicited and answers provided to the satisfaction of the patient/family/POA.
[2025-01-14] MEDS: LACTATED RINGERS 1,000 ML 30 ML IV CONT ×2 (08:00→10:37)
--- NOTE | 2025-01-14 08:17 | WPDHPUPDATE1 ---
History and Physical Update Update Date/Time: 01/14/25 08:17 History and Physical has been reviewed, including an updated exam of the patient. There are NO changes in the patient's condition. Risks, benefits, and alternatives have been discussed and questions answered. Patient agrees to proceed with procedure.
[2025-01-14] MEDS: ceFAZolin 2 GM in SODIUM CHLORIDE 0.9% IV 50 ML 100 ML IVPB (08:40)
[2025-01-14] MEDS: BUPIVACAINE/EPINEPHRINE 0.5% 30 ML VIAL INFILTRATE (09:01)
--- NOTE | 2025-01-14 10:08 | W.PM.PROC2 ---
Procedure Note - Detailed Date of Procedure 01/14/25 Pre-op Diagnosis Left inguinal hernia Post-op Diagnosis Same Procedure Performed Robotic laparoscopic repair left inguinal hernia with mesh Surgeon Davey Tsang MD [employer] uJan Leggett D.O. Anesthesia General and Local Indications Patient has a bulge in left groin which is uncomfortable and getting larger. After discussion, he is taken to surgery now for left inguinal hernia repair Findings This was a direct left inguinal hernia Description of Procedure Patient was taken to surgery and induced into general anesthesia. The abdomen is prepped and draped. He was placed in Trendelenburg. Trocars were placed in the usual fashion using local anesthetic and a 5 mm camera. These were then converted to robotic trocars. The robotic arms were brought in and docked. The surgeon went to the senior genetic counselor. An anterior peritoneal flap was developed transversely just above the inguinal canal structures. This was then further developed from anterior to posterior. This flap was developed broadly. Medially it was dissected from just behind the left rectus muscle down to the pubis and Matheus's ligament. I left the area where the direct hernia was located till last. I then placed gentle traction on the peritoneum and hernia sac. The hernia sac and some associated fatty tissue was slowly dissected and reduced out of the hernia defect. There was quite a bit of tissue in the hernia. All of it was reduced. I then continue mobilizing the peritoneum so that there was a wide area from anterior to posterior to place the mesh without peritoneum creeping up under the mesh. An extra-large, 17 x 12 cm, mid 3D max left sided mesh was introduced into the abdomen. It was positioned over the inguinal canal structures in the usual fashion. It did extend beyond the midline onto the medial aspect of the right rectus muscle. The medial, posterior edge of the mesh was able to be tucked so that the bladder would come up over it rather than go under the edge. The mesh was then sutured in place with 3-0 Vicryl. The 1st suture was to the lateral aspect of Matheus's ligament. To anterior sutures were also placed 1 on each side of the inferior epigastric vessels. The mesh was in good position. We then used 3-0 Stratafix and closed the peritoneal flap with running horizontal mattress sutures. All looked good. The instruments were removed and the robot was undocked. We evacuated CO2 and removed the trocar sleeves. The 3 skin incisions were then closed with subcuticular 4-0 Monocryl skin suture. The wounds were dressed with Exofin surgical adhesive. A scrotal support was placed. Patient was then awakened and taken to recovery in good condition. Sponge needle count were correct x2. Implants Extra-large, 17 x 12 cm, left mid 3DMax mesh Estimated Blood Loss -5 Drains No Packing No Pathology None sent Complications None Condition Stable Disposition PACU [facility] Billing Surgery - Charge Forward: Surgery Billing (Robotic laparoscopic repair left inguinal hernia with mesh)
[2025-01-14] MEDS: fentaNYL CITRATE INJ (*CRX) 100 MCG/2 ML VIAL 25 MCG IV PUSH ×4 (10:44→10:53)
== END 2025-01-14 11:58 | disposition home or self-care (01) ==
PROVIDERS: PCP Emergency Medicine; Visit Provider Surgery
PROC: 8E0Y4CZ Robotic Assisted Procedure of Lower Extremity, Percutaneous Endoscopic Approach (ICD-10-PCS; CPT 49650; principal; 2025-01-14 08:30)
DX: K40.90 Unilateral inguinal hernia, without obstruction or gangrene, not specified as recurrent (principal); F17.290 Nicotine dependence, other tobacco product, uncomplicated; F12.90 Cannabis use, unspecified, uncomplicated
CPT/HCPCS: 49650; S2900; J0690; A9270; C1781; J1100; J1885; J2003; J2405; J2704; J3010; J7030; J7120

== ENCOUNTER 2025-02-26 00:53 | Day surgery (SDC) | payer MEDICARE, MEDICAID, SELFPAY ==
--- NOTE | 2025-02-16 06:50 | PM.HPGS ---
History of Present Illness History of Present Illness Consent: Risks, benefits, and alternatives have been discussed and questions answered. Patient agrees to proceed with procedure. Chief complaint: Bladder Ca Narrative: Bhanu Álvarez is a 69 year old male: 12/[birth year]: ?Former pt. of Dr. Delgado at [facility]. ?Few records are available at this time I do see that he had a bladder biopsy on September 09, 2021 that showed [id number]. ?Additionally, has low-grade TCC right collecting system he's opted to treat with URS and laser ablation (as opposed to nephroureterectomy). Urothelial carcinoma right kidney and ureter -- noted on right ureteroscopy 04/29/2021. Discussed different options. ?Can consider right nephroureterectomy if left side negative. ?Can try to treat conservatively as he likely has low-grade cancer in the right kidney. ??Patient prefers a renal preservation approach. ? -- bilateral ureteroscopy, laser ablation right renal calyceal tumors, bilateral stent exchange 05/20/2021 = no tumors in left collecting system. ?Unable to see tumors in right distal ureter. ?Tumors in right upper calices ablated with holmium laser. -- 06/10/2021: ?Office cystoscopy and stent removal. ?Plan: ?Repeat right ureteroscopy in 3 months. -- 09/09/2021: ?Cysto, retrogrades, bladder biopsy right ureteroscopy 09/09/2021 = bladder carcinoma situ; ureteroscopy normal. -- 09/16/2021: ?Office cystoscopy and stent removal. ?Reviewed pathology. ?Recommend intravesical BCG. 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 ? -- Biopsy at right ureteral orifice 03/2018 = low-grade Ta. -- TURBT 04/2018 = benign. -- TURBT 08/2018 = low-grade Ta. -- TURBT 02/2019 = low-grade Ta. -- TURBT 03/2019 = low-grade Ta. -- CT urogram 11/2019 = normal. -- TURBT and right ureteroscopy 03/2020 = low-grade Ta in bladder; right ureter normal. -- 03/16/2021: ?Previously treated by Dr. Junior as noted above. ?Initial visit with me (Danny). ?Office cystoscopy = recurrence of papillary tumor at right trigone. -- 04/2021:Cystoscopy, retrogrades, right ureteroscopy, TURBT 04/29/2021 = multifocal bladder tumor resected. ?Retrogrades normal. ?Small papillary tumors distal 1.5 cm of ureter and 2 different right renal calyces. ?Unable to pass ureteroscope on left side. ?Pathology: ?Right kidney indeterminate. ?09/09/2022: ?TURBT = low-grade Ta. / ?ureteroscopy neg. ??Plan: ?Intravesical BCG at [facility] office. ?BCG x6 at [place] 04/2022: ?Cysto.: unremarkable. ?Will plan bilat. RPG and right ureteroscopy in 08/2022: ?Right URS: moderate papillary neoplasm in upper and mid-pole calyx - extending minimally into renal pelvis -> ablated in entirety, grossly ?Left URS: normal left collecting system and ureter. ?4cm papillary TCC in right post.-lat. wall -> resected. ?- bladder pathology: Ta, low-grade 12/2022: ?Right URS: Perfectly normal -> no recurrent neoplasm or areas of concern ?Bladder pathology: ?- Lesion: granulation tissue ?- Biopsy: inflammation ?No cancer or CIS 01/01-07/04: ?No follow-up / non-compliant 08/2024: ?TURBT: Ta, low-grade ?[Low Risk] ?Right renal pelvis: - papillary recurrence in mid and lower poles ?- bx.: too small for dx. 11/06/24: ?Miguel x6-weeks completed ?Right ureteral stent placed Review of Systems Review of Systems: All systems reviewed & are unremarkable except as noted in HPI and below PMFSH Past Medical History Medical History Non-cardiac chest pain Gastroesophageal reflux disease Chronic obstructive pulmonary disease ST elevation myocardial infarction (STEMI) (07/2012) Restless leg syndrome Hepatitis C virus infection resolved after antiviral drug therapy Bladder cancer Continuous tobacco abuse Coronary artery disease Hypothyroidism Essential hypertension Hyperlipidemia Anxiety and depression Surgical History Surgical History Hx of left inguinal hernia repair Robotic laparoscopic repair left inguinal hernia with mesh 01/14/2025 Dr. Tsang History of cystoscopy Abnormal cystoscopy x8 Right eye trauma History of cardiac catheterization (08/01/12) Aspiration thrombectomy, PTCA, stent x2 in overlapping fashion in major diagonal branch. Per Dr. Gresham. Family History Family History Mother Acute myocardial infarction Leukemia Father Colon cancer Sibling Heart problem Social History Social History Social History: Surrogate medical decision maker: Jodee Álvarez, spouse. Code status: Full code. Smoking packs per day: 1 Smoking cigarettes per day: 20.0 Years smoked: 30 Smoking pack-years: 30.00 Smoking status: Former smoker Tobacco type: cigarettes, pipe and cigars Second hand tobacco smoke exposure: Yes Smoking end date: 03/12/94 Additional smoking assessment comments: QUIT GIGARRETTES 2002, SMOKES 2 CIGARS/DAY & PIPE WHEN OUT OF CIGARS Alcohol intake: current Drinks per week: 2 Alcohol use details: BEER Substance use: current Substance use type: marijuana Other substance usage details: smokes 3 times a week marijuana Last use: 12/25/22 Lack of Transportation: No Lack of Food: Never True Current Housing: I Have Housing Concerned About Future Housing: No Difficulty Paying Gas/Electric Bills: No Difficulty Paying for Meds: No Currently Unemployed: No Education: High School Diploma/GED Difficulty w/ Childcare or Family Care: No Living arrangements: with family Additional living arrangements comments: Spiritual care concerns: No Meds Home Medications and Allergies Home Medications ?Medication ?Instructions ?Recorded ?Confirmed ?Type alprazolam 1 mg tablet (Xanax) 1 mg PO DAILY PRN Anxiety 09/14/20 01/29/25 History atorvastatin 40 mg tablet (Lipitor) 40 mg PO DAILY 09/14/20 01/29/25 History calcium phosphate,dibasic 77 50,000 tablet PO [id number] 09/14/20 01/29/25 History mg-vitamin D3 400 unit tablet carvedilol 3.125 mg tablet (Coreg) 3.125 mg PO BID 09/14/20 01/29/25 History clopidogrel 75 mg tablet (Plavix) 75 mg PO DAILY 09/14/20 01/29/25 History Held on 01/14/25. Instructions: Resume on 01/17/25. hydrocodone 10 mg-acetaminophen 1 tablet PO Q6-8H PRN Pain 09/14/20 01/29/25 History 325 mg tablet levothyroxine 88 mcg tablet 88 mcg PO DAILY 09/14/20 01/29/25 History (Synthroid) lisinopril 10 mg tablet (Zestril) 10 mg PO DAILY 09/14/20 01/29/25 History albuterol sulfate 90 mcg/actuation 2 puff inhalation QID PRN 05/03/21 01/29/25 History aerosol inhaler Shortness Of Breath nitroglycerin 0.4 mg sublingual 0.4 mg sublingual Q5-15M PRN Chest 05/03/21 01/29/25 History tablet Pain umeclidinium 62.5 mcg/actuation 1 inh inhalation DAILY 05/03/21 01/29/25 History blister powder for inhalation (Incruse Ellipta) aspirin 81 mg chewable tablet 81 mg PO DAILY 07/28/22 01/29/25 History pantoprazole 40 mg tablet,delayed 20 mg (1/2 x 40 mg) PO QAM #90 tabs 12/17/24 01/29/25 Rx release Allergies Allergy/AdvReac Type Severity Reaction Status Date / Time propoxyphene Allergy Intermediate Hives, Verified 11/20/25 08:18 N/V, Confusion Exam Const: General: no acute distress Resp: Effort & Inspection: normal respiratory effort GI: Inspection: non-distended GI Palp: No abdominal tenderness and No Guarding due to palpation present (GI) Auscultation: normal bowel sounds Assessment and Plan Assessment and plan (1) Cancer of overlapping sites of bladder: Code(s): C67.8 - Malignant neoplasm of overlapping sites of bladder Status: Chronic (2) Cancer of right renal pelvis: Code(s): C65.1 - Malignant neoplasm of right renal pelvis Status: Acute Assessment and Plan: Cystoscopy, right ureteral stent removal, right ureteroscopy with possible ureteral biopsy
[2025-02-19 09:25] VITALS: BMI 24.1
--- NOTE | 2025-02-19 09:39 | PC.NURSE ---
[facility] has started construction of its new state of the art ER which will open Spring 2026. With this, we anticipate parking may be a challenge for some our surgical patients and families. Parking spaces are limited but are available for all Surgical, obstetrics, and ER patients sharing this lot. If you arrive and find you are having a hard time finding a parking space, please note that we understand the challenges, please drive around the hospital and park near Hospital Entrance 1. When you enter this entrance, you can ask a volunteer to direct or take you back to the surgical waiting area to check in. We appreciate everyone?s understanding of these expected challenges while we build for your future. Report to the Outpatient Waiting Room, entrance under the green pavilion located off [address], at time ____06:00am___ on date ___02/26/26____. Planned Procedure Time: ___07:30am .? Time changes happen often and if your time is changed the preop area will call you the afternoon before. - You and your visitor will be asked to self-screen and do not enter if you have any COVID symptoms. Please call surgeon if you need to reschedule. - A mask is optional within the hospital at this time. Patients may have clear liquids (water, carbonated beverages, clear teas, apple juice) until 3 hours prior to surgery with a maximum of 20 ounces. - No food from midnight until time of surgery and no smoking, or chewing tobacco (or any form of nicotine). No chewing gum, candy or mints. (0430am) Take only the following medications with a SIP of water on the morning of surgery: ___Inhalers, Coreg, Levothyroxine, Xanax if needed Hydrocodone if needed DO NOT STOP ANY OF YOUR OTHER PRESCRIPTION MEDICATIONS PRIOR TO SURGERY EXCEPT THE FOLLOWING Hold all vitamins and supplements for 7 days per anesthesiologist. Medications to discontinue per physician HOLD ASA and PLAVIX for [address] FRAGOSO/SANTANA Date to take last dose 02/18/25 Please no make-up, nail estonian, hairspray, perfume, deodorant, or body powder the day of surgery.? No jewelry (including any body piercings) or valuables the day of surgery, leave them at home.? Please take a shower or bath the night before, or the morning of, surgery with an antibacterial soap.? Wear comfortable, loose fitting clothing.? - Jewelry must be removed prior to entering the operating room.? Rings and piercings that are not removed may be cut off. - The hospital will not accept responsibility for valuables.? - Please leave all valuables, including medications, at home the day of surgery. If you are going home after surgery, a licensed fence post driver must drive you home.? - NO public transportation without another adult if you receive anesthesia. - We recommend that an adult stay with you for 24 hours following discharge. - We also recommend that you do not drive, make important decision, drink alcoholic beverages, or take any drugs that were not prescribed by your health care provider for at least 24 hours after your discharge time. Follow any additional instructions given to you from your surgeon. Telephone instructions given to __Wife Raven and asked if any additional questions and then verbalized understanding. Patient advised to call surgeon office or pre surgery nurse liaison [phone] if any additional questions.
--- NOTE | ~2025-02-26 | XR_ITS ---
Intraoperative images, fluoroscopy time 54 seconds Reviewed, dictated and finalized at location [employer]
--- OUTSIDE RECORDS SUMMARY | 2025-02-26 00:55 | XMS_ITS | Encounter Summary ---
Author Organization [facility] Address [address] [place] [id number] Phone Care Team Providers Care Sorting Cows Worker Name Role Phone Iker Feldman Primary Care Provider [phone] Juan Gresham MD Unavailable Hemant Delgado MD Unavailable Encounter Details Date Type Department Care Team (Late st Contact Info) Description 04/26/2021 [facility] [address] [place] [address] Hemant Delgado MD #2 [facility], [address] [address] Pre-op testing (Primary Dx) Social History Tobacco [...] COVID-19? 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 MACHINE HOST/HOSTESS documented as of this encounter Functional Status * Question Answer Date of Assessment Author BP 165/78 04/29/2021 2:15 PM VENDING MACHINE HOST/HOSTESS Leila Fuentes RN Temp 97 04/29/2021 2:15 PM VENDING MACHINE HOST/HOSTESS Leila Fuentes RN Pulse 56 04/29/2021 2:15 PM VENDING MACHINE HOST/HOSTESS Leila Fuentes, RN Resp 16 04/29/2021 2:15 PM VENDING MACHINE HOST/HOSTESS Leila Fuentes RN * Question Answer Date of Assessment Author SpO2 100 04/29/2021 2:15 PM Leila Mancini RN O2 Device None (Room air) 04/29/2021 2:15 PM VENDING MACHINE HOST/HOSTESS Leila Batista RN ETCO2 (mmHg) 30 04/29/2021 2:09 PM VENDING MACHINE HOST/HOSTESS Linda Dunaway RN * Question Answer Date of Assessment Author [address] 04/29/2021 2:00 PM VENDING MACHINE HOST/HOSTESS Leila Fuentes RN * Question Answer Date of Assessment Author Urine 100 04/29/2021 2:00 PM VENDING MACHINE HOST/HOSTESS Leila Fuentes RN * Fall Risk Indicators Answer Date of Assessment Author 0-->no indicators present 04/29/2021 8:31 AM Xiomara Encarnacion RN * Fall Risk Score Answer Date of Assessment Author 0 04/29/2021 8:31 AM Niko Encarnacion RN * VTE Prevention/Management Answer Date of Assessment Author ambulation encouraged 04/29/2021 8:38 AM VENDING MACHINE HOST/HOSTESS Xiomara Gaytan, TERESA * Question Answer Date of Assessment Author Sensory Perception 4-->no impairment 04/29/2021 8:31 A M Xiomara Encarnacion RN Friction and Shear 3-->no apparent problem 04/29/2021 8:31 AM Xiomara Encarnacion, TERESA Moisture 4-->rarely moist 04/29/2021 8:31 AM VENDING MACHINE HOST/HOSTESS Xiomara Shaw RN Godwin Score 23 04/29/2021 8:31 AM Xiomara Encarnacion RN Nutrition 4-->excellent 04/29/2021 8:31 AM Xiomara Smith RN Activity 4-->walks frequently 04/29/2021 8:31 AM Xiomara Pugh RN Mobility 4-->no limitation 04/29/2021 8:31 AM Xiomara Encarnacion RN documented as of this encounter Mental Status * Question Answer Entry Date Author BP 165/78 04/29/2021 2:15 PM Leila Mancini RN Temp 97 04/29/2021 2:15 PM Leila Mancini RN Pulse 56 04/29/2021 2:15 PM Leila Mancini RN * Question Answer Entry Date Author SpO2 100 04/29/2021 2:15 PM Leila Mancini RN O2 Device None (Room air) 04/29/2021 2:15 PM Leila Chavarria RN ETCO2 (mmHg) 30 04/29/2021 2:09 PM Linda Lucio RN * Fall Risk Indicators Answer Entry Date Author 0-->no indicators present 04/29/2021 8:31 AM Xiomara Encarnacion, TERESA * Fall Risk Score Answer Entry Date Author 0 04/29/2021 8:31 AM Niko Encarnacion, TERESA * VTE Prevention/Management Answer Entry Date Author ambulation encouraged 04/29/2021 8:38 AM Xiomara Foster, TERESA * Question Answer Entry Date Author Sensory Perception 4-->no impairment 04/29/2021 8:31 AM Xiomara Encarnacion RN Friction and Shear 3-->no apparent problem 04/29 8:31 AM Xiomara Encarnacion, TERESA Moisture 4-->rarely moist 04/29/2021 8:31 AM Xiomara Encarnacion RN Godwin Score 23 04/29/2021 8:31 AM Xiomara Encarnacion, TERESA Nutrition 4-->excellent 04/29/2021 8:31 AM Xiomara Encarnacion RN Activity 4-->walks frequently 04/29/2021 8:31 AM VENDING MACHINE HOST/HOSTESS Batty, Xiomara D, RN Mobility 4-->no limitation 04/29/2021 8:3 1 AM VENDING MACHINE HOST/HOSTESS Xiomara Boyd, RN documented in this encounter Plan of Treatment Not on file documented as of this encounter Visit Diagnoses Diagnosis Pre-op testing- Primary Preoperative examination, unspecified documented in this encounter Care Teams Sorting Cows Worker Relationship Specialty Start Date End Date Iker Feldman [address] [place] [address] PCP - General Family Medicine 12/05/17 Juan Gresham MD [address] [facility] [address] [place] [address] Cardiovascular Disease - Cardiology 12/05/17 Hemant Delgado MD #2 [facility] [address] [place] [address] Consulting Physician Urology 01/19/22 documented as of this encounter
--- OUTSIDE RECORDS SUMMARY | 2025-02-26 00:55 | XMS_ITS | Encounter Summary ---
Author Organization [facility] Address [address] [place] [id number] Phone Care Team Providers Care Director Of Physical Security Name Role Phone Iker Feldman Primary Care Provider [phone] Juan Gresham MD Unavailable Hemant Delgado MD Unavailable Encounter Details Date Type Department Care Team (Late st Contact Info) Description 03/29/2021 [facility] [address] [place] [address] Hemant Delgado MD #[address] [address] Social History Tobacco Use Types Packs/Day Years [...] COVID-19? No / Unsure 03/29/2021 2:12 PM LEVELER HELPER documented as of this encounter Plan of Treatment Not on file documented as of this encounter Visit Diagnoses Not on filedocumented in this encounter Care Teams Director Of Physical Security Relationship Specialty Start Date End Date Iker Feldman [address] [facility] [place] [address] PCP - General Family Medicine 12/05/17 Juan Gresham MD [address] [facility] [address] [place] [address] Cardiovascular Disease - Cardiology 12/05/17 Hemant Delgado MD #2 [facility] [address] [place] [address] Consulting Physician Urology 01/19/22 documented as of this encounter
--- OUTSIDE RECORDS SUMMARY | 2025-02-26 00:55 | XMS_ITS | Clinical Summary ---
Author Organization [facility] [address] [facility] [address] Address [address] [place] [address] Care Team Providers Care Hand Spray Operator Name Role Phone Iker Feldman MD Primary Care Provider [phone] Iker Feldman MD Unavailable [phone] Allergies Active Allergy Reactions Criticality Noted Date [...] 1 tablet (88 mcg total) by mouth corking machine operator before breakfast Active albuterol HFA [...] needed for pain Active cholecalciferol (VITAMIN D-3) 80432 unit tablet Take 1 tablet (50,000 Units total) by mouth once a week Active nitroglycerin (NITROSTAT) 0.4 mg SL tabletIndication s:Coronary artery disease involving [place] coronary artery of [place] heart without angina pectoris Place 1 tablet (0.4 mg total) under the tongue every 5 (five) minutes as needed for chest pain Up to 3 doses 25 tablet 11/01/19 24 Active atorvastatin (LIPITOR) 80 mg tabletIndication s:Coronary artery disease involving [place] coronary artery of [place] heart without angina pectoris Take 1 tablet (80 mg total) by mouth nightly 90 tablet 6 11/06/19 25 Active carvediloL (COREG) 3.125 mg tabletIndication s:Coronary artery disease involving [place] coronary artery of [place] heart without angina pectoris TAKE ONE TABLET BY MOUTH TWICE A DAY 180 tablet 2 02/13/20 25 Active clopidogreL (PLAVIX) 75 mg tabletIndication s:Coronary artery disease involving [place] coronary artery of [place] heart without angina pectoris TAKE ONE TABLET BY MOUTH EVERY DAY DIRECTED 90 tablet 2 02/13/20 25 Active lisinopriL (PRINIVIL,ZESTRI L) 10 mg tabletIndication s:Coronary artery disease involving [place] coronary artery of [place] heart without angina pectoris TAKE ONE TABLET BY MOUTH EVERY DAY DIRECTED 90 tablet 3 02/13/20 25 Active carvediloL (COREG) 3.125 mg tabletIndication s:Coronary artery disease involving [place] coronary artery of [place] heart without angina pectoris Take 1 tablet (3.125 mg total) by mouth 2 (two) times a day with meals 180 tablet 3 11/01/19 24 025 Discontinued lisinopriL (PRINIVIL,ZESTRI L) 10 mg tabletIndication s:Coronary artery disease involving [place] coronary artery of [place] heart without angina pectoris TAKE ONE TABLET BY MOUTH EVERY DAY 90 tablet 10/14/19 25 025 Discontinued clopidogreL (PLAVIX) 75 mg tabletIndication s:Coronary artery disease involving [place] coronary artery of [place] heart without angina pectoris TAKE ONE TABLET BY MOUTH DAILY 90 tablet 10/14/19 25 025 Discontinued Active Problems Problem Noted Date Diagnosed Date Atherosclerosis of coronary artery 12/12/2013 Overview (06/15/2016): Coronary atherosclerosis Encounters Date Type Department Care Team Description 01/27/2025 11:15 AM REPATCHER Ancillary Procedure [facility] Cardiology [address] [place] [address] Coronary artery disease involving [place] coronary artery of [place] heart without angina pectoris; History of ST elevation myocardial infarction (STEMI); Status post angioplasty with stent 11/27/2024 11:15 AM CDT Ancillary Procedure [facility] Cardiology [address] [place] [address] Coronary artery disease involving [place] coronary artery of [place] heart without angina pectoris 11/27/2024 Results Follow-Up [facility] Cardiology [address] [facility] [address] [place] [address] Bev Dillon MD Transthoracic Echo (TTE) Complete W Doppler/CF, NM MPI SPECT (Rest and/or Stress) Multiple Studies from Last 3 Months Surgical History Surgery [...] on file Legal Sex Male 9:18 PM REPATCHER Gender Identity Not on file Sexual Orientation [...] Procedure Name Priority Date/Time Associated Diagnosis Comments NM MPI SPECT (REST AND/OR STRESS) MULTIPLE STUDIES Schedule Routine, Read Routine (OP Routine) 01/27/2025 12:25 PM REPATCHER Coronary artery disease involving [place] coronary artery of [place] heart without angina pectoris History of ST elevation myocardial infarction (STEMI) Status post angioplasty with stent TRANSTHORACIC ECHO (TTE) COMPLETE W DOPPLER/CF WO CONTRAST Routine 11/27/2024 12:25 PM CDT Coronary artery disease involving [place] coronary artery of [place] heart without angina pectoris from Last 3 Months Results * NM MPI SPECT (Rest and/or Stress) Multiple Studies (01/27/2025 12:25 PM REPATCHER) Anatomical Region Laterality Modality Body N/A Nuclear Medicine 01/27/2025 11:4 8 AM REPATCHER Narrative 01/27/2025 5:01 PM REPATCHER [facility] Cardiology [address], [place] [address] [address] [facility] [address], [place] [address] [address], [place] [address] P:[phone] P:[phone] MPI Imaging Report Patient Name: BHANU CONNER L : 1955 Study Date: 01/27/2025 11:48:58 AM Sex: M Tech: [facility] Location: [facility] Provider: BEV DILLON Height(Cm): 172.7 BSA: Weight(Kg): 75.4 BMI: 25.28 Order Provider: BEV DILLON PHYSICIAN: Primary Care Physician: Dr. Feldman. [facility] Physician: Bev Dillon M.D., F.A.C.C. Stress Supervision: Travon Calvin M.D. Stress Interpreting Physician: Travon Calvin M.D. PROCEDURES: Pharmacologic SPECT Report: Myocardial perfusion imaging with Tc99M Sestamibi SPECT at rest and stress post regadenoson (Lexiscan) infusion. INDICATIONS: Hypertension, Family Hx CAD, High Cholesterol, Smoker, I25.10 Atherosclerotic heart disease of [place] coronary artery without angina pectoris, I25.2 Old myocardial infarction, and Z95.820 Peripheral vascular angioplasty status with implants and grafts. FINDINGS: Procedural Findings: One day rest/stress was used. Tc99m Sestamibi injected IV at rest was 10.2 millicuries 32.6 millicuries of Tc99M Sestamibi injected IV during Lexiscan stress Lexiscan 0.4mg administered IV over 10 seconds. Patient had no symptoms during stress test. Baseline heart rate was 55 BPM Maximum Heart Rate Achieved was: 83 BPM Baseline blood pressure was 99/58 mmHg Post Stress Blood Pressure was 98/56 mmHg Termination: Protocol complete. Resting ECG: Normal sinus rhythm. Cannot r/o septal infarct - age uncertain. Post ECG: No diagnostic ST changes. Arrhythmia: No arrhythmias seen. Perfusion Findings: Normal perfusion imaging. No definite fixed or reversible defects. Technical quality of study is excellent. Left ventricle cavity size at rest is normal. Left ventricle cavity size with stress is unchanged. A TID of 0.79 was automatically calculated. LV Function: Global left ventricular function is normal. Left ventricular ejection fraction is 73 %. CONCLUSIONS: Global left ventricular function is normal. Left ventricular ejection fraction is 73 %. Myocardial perfusion imaging is normal. Inferior diaphragmatic/gut attenuation is seen. Negative EKG portion of stress test. Electronically Signed By: Keon Calvin MD 01/27/2025 3:46:00 PM REPATCHER Electronically Signed By: Keon Calvin MD 01/27/2025 3:46:00 PM REPATCHER Procedure Note Keon Calvin MD - 01/27/2025 [facility]iology [address] [facility] [address], [place] [address] [address] [facility] [address] [address] [address] [place] [address] P:[phone] P:[phone] MPI Imaging Report Patient Name: BHANU CONNER L : 1955 Study Date: 01/27/2025 11:48:58 AM Sex: M Tech: [facility] Location: [facility] Provider: BEV DILLON Height(Cm): 172.7 BSA: Weight(Kg): 75.4 BMI: 25.28 Order Provider: BEV DILLON PHYSICIAN: Primary Care Physician: Dr. Feldman. [facility] Physician: Bev Dillon M.D.,F.A.C.C. Stress Supervision: Travon Calvin M.D. Stress Interpreting Physician: Komal Lanza PROCEDURES: Pharmacologic SPECT Report: Myocardial perfusion imaging with Tc99M Sestamibi SPECT at rest and stresspost regadenoson (Lexiscan) infusion. INDICATIONS: Hypertension, Family Hx CAD, High Cholesterol, Smoker, I25.10Atherosclerotic heart disease of [place] coronary artery without angina pectoris, I25.2 Oldmyocardial infarction, and Z95.820 Peripheral vascular angioplasty status withimplants and grafts. FINDINGS: Procedural Findings: One day rest/stress was used. Tc99m Sestamibi injected IV at rest was 10.2 millicuries 32.6 millicuries of Tc99M Sestamibi injected IV during Lexiscan stress Lexiscan 0.4mg administered IV over 10 seconds. Patient had no symptoms during stress test. Baseline heart rate was 55 BPM Maximum Heart Rate Achieved was: 83 BPM Baseline blood pressure was 99/58 mmHg Post Stress Blood Pressure was 98/56 mmHg Termination: Protocol complete. Resting ECG: Normal sinus rhythm. Cannot r/o septal infarct - age uncertain. Post ECG: No diagnostic ST changes. Arrhythmia: No arrhythmias seen. Perfusion Findings: Normal perfusion imaging. No definite fixed or reversible defects.Technical quality of study is excellent. Left ventricle cavity size at rest is normal. Leftventricle cavity size with stress is unchanged. A TID of 0.79 was automaticallycalculated. LV Function: Global left ventricular function is normal. Left ventricular ejectionfraction is 73 %. CONCLUSIONS: Global left ventricular function is normal. Left ventricular ejectionfraction is 73 %. Myocardial perfusion imaging is normal. Inferior diaphragmatic/gutattenuation is seen. Negative EKG portion of stress test. Electronically Signed By: Keon Calvin MD 01/27/2025 3:46:00 PM REPATCHER Electronically Signed By: Keon Calvin MD 01/27/2025 3:46:00 PM REPATCHER us Bev Dillon MD IM NM PROCEDURES Final Result * TRANSTHORACIC ECHO (TTE) COMPLETE W DOPPLER/CF WO CONTRAST (11/27/2024 12:25 PM CDT) EF Mod BP 68 % CONS SCIMAGE Anatomical Region Laterality Modality Ultrasound 11/27/2024 11:4 0 AM CDT Narrative 11/27/2024 12:51 PM CDT [facility]iology [address], [place] [address] [address], [address], [place] [address] P:[phone] P:[phone] Echocardiographic Report Patient Name: BHANU CONNER L : 1955 Study Date: 11/27/2024 11:40:34 AM Sex: M Business Continuity Planner: Lorenza Parker)(CT), [facility] Location: [facility] Provider: BEV DILLON Height(Cm): 173 BSA: 1.9 Weight(Kg): 75.3 Heart Rate: 52 BP: 102 / 50 Quality: Good Order Provider: BEV DILLON PROCEDURES: Echocardiographic Report: Transthoracic echocardiogram with complete 2D, M-Mode, and color Doppler examination. With Strain Analysis. INDICATIONS: I25.10 Atherosclerotic heart disease of [place] coronary artery without angina pectoris. MEASUREMENTS: 2D/MM Value Range Doppler Value Range EF Mod BP 68 % [ 52 - 72 ] GO Vmax 2.49 cm2 [ 2.00 - 4.00 ] LV GLS -19.37 % AV Mean PG 4 mmHg LVIDd 2D 4.85 cm [ 4.20 - 5.80 ] AV Peak Uskh 1.39 m/s [ 1.00 - 1.70 ] [...] FINDINGS: Interpretation Site: Exam was interpreted at [facility]. Left Ventricle: Normal left ventricular systolic function. [...] Procedure Note Galindo Diego MD - 11/27/2024 [facility] Cardiology [address], [place] [address] [address], [place] [address] P:[phone] P:[phone] Echocardiographic Report Patient Name: BHANU CONNER L : 1955 Study Date: 11/27/2024 11:40:34 AM Sex: M Business Continuity Planner: Lorenza Parker)(SD), [facility] Location: [facility] Provider: BEV DILLON Height(Cm): 173 BSA: 1.9 Weight(Kg): 75.3 Heart Rate: 52 BP: 102 / 50 Quality: Good Order Provider: BEV DILLON PROCEDURES: Echocardiographic Report: Transthoracic echocardiogram with complete 2D, M-Mode, and color Dopplerexamination. With Strain Analysis. INDICATIONS: I25.10 Atherosclerotic heart disease of [place] coronary artery withoutangina pectoris. MEASUREMENTS: 2D/MM Value [...] FINDINGS: Interpretation Site: Exam was interpreted at [facility]. Left Ventricle: Normal left ventricular systolic function. [...] Dr. Galindo Diego 11/27/2024 12:50:50 PM CDT Bev Dillon MD CV ECHO PROCEDURES Final Result from Last 3 Months Insurance [facility] MEDICARE ADVANTAGE IDPA Care Teams Hand Spray Operator Relationship Specialty Start Date End Date Iker Feldman MD PCP - General 06/09/16 Iker Feldman MD Family Medicine 03/26/17
--- OUTSIDE RECORDS SUMMARY | 2025-02-26 00:55 | XMS_ITS | Encounter Summary ---
Author Organization [facility] Address [address] [place] [address] Phone Care Team Providers Care Electric Tape Slitter Name Role Phone Iker Feldman Primary Care Provider [phone] Juan Gresham MD Unavailable Hemant Delgado MD Unavailable Encounter Details Date Type Department Care Team (Late st Contact Info) Description 05/16/2021 Transcribe [facility] 1 [place] [address] Hemant Delgado MD #2 [facility], [address] [address] Pre-op testing (Primary Dx) Social History Tobacco [...] COVID-19? No / Unsure 05/17/2021 11:10 AM PLATING AND POINT ASSEMBLY SUPERVISOR documented as of this encounter Plan of Treatment Not on file documented as of this encounter Results * SARS-COV-2 BY MOLECULAR (05/17/2021 11:13 AM PLATING AND POINT ASSEMBLY SUPERVISOR) SARSCOV2 NOT DETECTED (Referen ce Range for this test is Not Detected ) [facility] THERMOFISHER FAST DX 05/18/2021 11:52 AM PLATING AND POINT ASSEMBLY SUPERVISOR [facility] Comment:This test was perfor med by a RT-PCR method. Other NASOPHARYNGEAL STRUCTURE / Unknown Non-Phlebotomy Collection / Unknown 05/17/2021 11:13 AM PLATING AND POINT ASSEMBLY SUPERVISOR 05/17/2021 11:57 AM PLATING AND POINT ASSEMBLY SUPERVISOR Narrative [facility] - 05/18/2021 11:52 AM PLATING AND POINT ASSEMBLY SUPERVISOR Authorized Fact Sheets about this test for providers and patients are available at: https://www.fda.gov/medical-devices/azehqgygz-qzhjwvkgxy-ljjeder-devices/emergen cy-us e-authorizations us Hemant Delgado MD MICROBIOLOGY - GENERAL ORDERABLE S Final Result [facility] [address] [place] [address], documented in this encounter Visit Diagnoses Diagnosis Pre-op testing- Primary Preoperative examination, unspecified documented in this encounter Care Teams Electric Tape Slitter Relationship Specialty Start Date End Date Iker Feldman [address] [place] [address] PCP - General Family Medicine 12/05/17 Juan Gresham MD [address] [facility] [address] [place] [address] Cardiovascular Disease - Cardiology 12/05/17 Hemant Delgado MD #2 [facility] [address] [place] [address] Consulting Physician Urology 01/19/22 documented as of this encounter
--- OUTSIDE RECORDS SUMMARY | 2025-02-26 00:55 | XMS_ITS | Encounter Summary ---
Author Organization [facility] Address [address] [place] [address] Phone Care Team Providers Care Assurance Manager Insurance Name Role Phone Iker Feldman Primary Care Provider [phone] Juan Gresham MD Unavailable Hemant Delgado MD Unavailable Encounter Details Date Type Department Care Team (Late st Contact Info) Description 03/29/2021 [facility] 1 [place] [address] Hemant Delgado MD #2 [facility], [address] [address] Pre-op testing (Primary Dx) Social History Tobacco [...] COVID-19? No / Unsure 03/29/2021 2:12 PM STAFF NURSE MIDWIFE documented as of this encounter Plan of Treatment Not on file documented as of this encounter Results * SARS-COV-2 BY MOLECULAR (04/25/2021 7:54 AM STAFF NURSE MIDWIFE) SARSCOV2 NOT DETECTED (Referen ce Range for this test is Not Detected ) [facility] THERMOFISHER FAST DX 04/25/2021 6:50 PM STAFF NURSE MIDWIFE [facility] Comment:This test was perfor med by a RT-PCR method. Other NASOPHARYNGEAL STRUCTURE / Unknown Non-Phlebotomy Collection / Unknown 04/25/2021 7:54 AM STAFF NURSE MIDWIFE 04/25/2021 8:44 AM STAFF NURSE MIDWIFE Narrative [facility] - 04/25/2021 6:50 PM STAFF NURSE MIDWIFE Authorized Fact Sheets about this test for providers and patients are available at: https://www.fda.gov/medical-devices/xjdjlrfyo-getgfbbnej-pmpmmsq-devices/emergen cy-us e-authorizations us Hemant Delgado MD MICROBIOLOGY - GENERAL ORDERABLE S Final Result [facility] [address] [place] [address], documented in this encounter Visit Diagnoses Diagnosis Pre-op testing- Primary Preoperative examination, unspecified documented in this encounter Care Teams Assurance Manager Insurance Relationship Specialty Start Date End Date Iker Feldman [address] [place] [address] PCP - General Family Medicine 12/05/17 Juan Gresham MD [address] [facility] [address] [place] [address] Cardiovascular Disease - Cardiology 12/05/17 Hemant Delgado MD #2 [facility] [address] [place] [address] Consulting Physician Urology 01/19/22 documented as of this encounter
--- OUTSIDE RECORDS SUMMARY | 2025-02-26 00:55 | XMS_ITS | Clinical Summary ---
Author Organization [facility] Address [address] [place] [address] Phone Care Team Providers Care Sheet Metal Lay Out Worker Name Role Phone Iker Feldman Primary Care Provider [phone] Juan Gresham MD Unavailable Hemant Delgado MD [...] minutes as needed. Active ergocalciferol (VITAMIN D) 39411 UNIT Capsule Take 1 Capsule by mouth. [...] Comments Blood Pressure 138/74 01/19/2022 8:53 AM INSULATION MECHANIC Pulse 54 01/19/2022 8:53 AM INSULATION MECHANIC Temperature 36.4 C (97.6 F) 01/19/2022 8:53 AM INSULATION MECHANIC Respiratory Rate 18 01/19/2022 8:53 AM INSULATION MECHANIC Oxygen Saturation 98% 01/19/2022 8:53 AM INSULATION MECHANIC Inhaled Oxygen Concentration - - Weight 72.2 kg (159 lb 3.2 oz) 01/19/2022 8:53 A M INSULATION MECHANIC Height 174 cm (5' 8.5) 09/16/2021 11:49 [...] complete this topic Human Papillomavirus (HPV) Immunization (No Doses Required) Completed Meningococcal Immunization (ACWY) Aged Out No longer eligible based on patient's age to complete this topic Rotavirus Immunization Aged Out No lo nger eligible based on patient's age to complete this topic Medical Devices Implanted Type Area Ground Hand Device Identifier Shelf Expiration Date Model / Serial / Lot Stent Ureteral 6fr 2.1fr 26cm 2 Pigtail Curve 2 Durometer Taper Tip Loprfl Graduated [employer] Ultra - [id number] Implanted:Qty : 1 on 03/19/2018 by Viviana Junior MD at [facility] IMPLANT Right: Ureter [employer] 10/03/2020 [id number] 0 / [id number] 0 / [id number] Stent Ureteral 6fr 2.1fr 24cm 2 Pigtail Curve 2 Durometer Taper Tip Loprfl Graduated Polaris Ultra - [id number] Implanted:Qty : 1 on 04/29/2021 by Hemant Delgado MD at [facility] IMPLANT Left: Ureter [employer] 01/12/2024 [id number] 0 / [id number] / [id number] Stent Ureteral 6fr 2.1fr 24cm 2 Pigtail Curve 2 Durometer Taper Tip Loprfl Graduated [employer] Ultra - [id number] Implanted:Qty : 1 on 05/20/2021 by Hemant Delgado MD at [facility] IMPLANT Left: Ureter [employer] 02/04/2024 [id number] 0 / [id number] 0 / [id number] Stent Ureteral 6fr 2.1fr 24cm 2 Pigtail Curve 2 Durometer Taper Tip Loprfl Graduated [employer]aris Ultra - [id number] Implanted:Qty : 1 on 05/20/2021 by Hemant Delgado MD at [facility] IMPLANT Right: Ureter [employer] 02/04/2024 [id number] 0 / [id number] 0 / [id number] Stent Ureteral 6fr 2.1fr 28cm 2 Pigtail Curve 2 Durometer Taper Tip Loprfl Graduated [employer] Ultra - [id number] Implanted:Qty : 1 on 09/09/2021 by Hemant Delgado MD at [facility] IMPLANT Right: Ureter [employer] 02/08/2024 [id number] 0 / [id number] 0 / [id number] Explanted Type Area Ground Hand Device Identifier Shelf Expiration Date Model / Serial / Lot Stent Ureteral 6fr 2.1fr 24cm 2 Pigtail Curve 2 Durometer Taper Tip Loprfl Graduated [employer] Ultra - [id number] Implanted:Qty : 1 on 04/29/20[facility] Explanted:Qty : 1 on 05/20/2021 by [facility] IM[facility] Right: Ureter [employer] 01/12/2024 [id number] 0 / [id number] 0 / [id number] Procedures Procedure Name Priority Date/Time Associated Diagnosis [...] Maintenance Insurance MEDICA[place] [address] Advance Directives Documents on File Type Date Recorded Patient Sports Official Expl anation Other Advance Directive 09/21/2021 3:35 [...] Medical Clearance fo r surgery Care Teams Sheet Metal Lay Out Worker Relationship Specialty Start Date End Date Feldman Iker [address] [place] [address] PCP - General Family Medicine 12/05/17 Juan Gresham MD 12[address] [facility] [address] [place] [address] Cardiovascular Disease - Cardiology 12/05/17 Hemant Delgado MD #2 [facility] [address] [place] [address] Consulting Physician Urology 01/19/22
[2025-02-26 06:33] VITALS: BP 120/72; PULSE 65; RESP 18; TEMP 36.4; O2SAT 99
--- NOTE | 2025-02-26 06:55 | WPDHPUPDATE1 ---
History and Physical Update Update Date/Time: 02/26/25 06:55 History and Physical has been reviewed, including an updated exam of the patient. There are NO changes in the patient's condition. Risks, benefits, and alternatives have been discussed and questions answered. Patient agrees to proceed with procedure.
--- NOTE | 2025-02-26 06:58 | WPDANESEPPF ---
Anes - Initial Pre Proc Eval Procedure: Operation Date: 02/26/25 07:30 Proposed Procedures p Cystoscopy, Right Ureteroscopy Right Ureteral Stent Removal, Possible Right Ureteral Biopsy - Vlad Gilliam MD Date/Time: 02/26/25 06:58 Surgeon: Vlad Gilliam MD Pre Op Diagnosis: Bladder Ca Patient Data Age: 69 Gender: M Height: 1.73 m Weight: 73.2 kg Last Vital Signs Temp 36.4 C L 02/26/25 06:33 Pulse 65 02/26/25 06:33 Resp 18 02/26/25 06:33 BP 120/72 02/26/25 06:33 Pulse Ox 99 02/26/25 06:33 O2 Del Method Room Air 02/26/25 06:33 Allergies Allergy/AdvReac Type Severity Reaction Status Date / Time propoxyphene Allergy Intermediate Hives, Verified 02/26/25 06:30 N/V, Confusion Home Medications ?Medication ?Instructions ?Recorded ?Confirmed ?Type alprazolam 1 mg tablet (Xanax) 1 mg PO DAILY PRN Anxiety 09/14/20 02/19/25 History atorvastatin 40 mg tablet (Lipitor) 40 mg PO DAILY 09/14/20 02/26/25 History calcium phosphate,dibasic 77 50,000 tablet PO [id number] 09/14/20 02/19/25 History mg-vitamin D3 400 unit tablet carvedilol 3.125 mg tablet (Coreg) 3.125 mg PO BID 09/14/20 02/26/25 History clopidogrel 75 mg tablet (Plavix) 75 mg PO DAILY 09/14/20 02/26/25 History Held on 01/14/25. Instructions: Resume on 01/17/25. hydrocodone 10 mg-acetaminophen 1 tablet PO Q6-8H PRN Pain 09/14/20 02/19/25 History 325 mg tablet levothyroxine 88 mcg tablet 88 mcg PO DAILY 09/14/20 02/26/25 History (Synthroid) lisinopril 10 mg tablet (Zestril) 10 mg PO DAILY 09/14/20 02/26/25 History albuterol sulfate 90 mcg/actuation 2 puff inhalation QID PRN 05/03/21 02/19/25 History aerosol inhaler Shortness Of Breath nitroglycerin 0.4 mg sublingual 0.4 mg sublingual Q5-15M PRN Chest 05/03/21 02/19/25 History tablet Pain umeclidinium 62.5 mcg/actuation 1 inh inhalation DAILY 05/03/21 02/26/25 History blister powder for inhalation (Incruse Ellipta) aspirin 81 mg chewable tablet 81 mg PO DAILY 07/28/22 02/26/25 History Held on 02/19/25. Instructions: .Provider Order pantoprazole 40 mg tablet,delayed 20 mg (1/2 x 40 mg) PO QAM #90 tabs 12/17/24 02/26/25 Rx release Patient hx anesthesia problems: none Family hx anesthesia problems: none Results Review: All pre-operative results and documents have been reviewed as part of the pre-operative evaluation. [facility] Past Medical History Medical History Non-cardiac chest pain Gastroesophageal reflux disease Chronic obstructive pulmonary disease ST elevation myocardial infarction (STEMI) (07/2012) Restless leg syndrome Hepatitis C virus infection resolved after antiviral drug therapy Bladder cancer Continuous tobacco abuse Coronary artery disease Hypothyroidism Essential hypertension Hyperlipidemia Anxiety and depression Surgical History Surgical History Hx of left inguinal hernia repair Robotic laparoscopic repair left inguinal hernia with mesh 01/14/2025 Dr. Tsang History of cystoscopy Abnormal cystoscopy x8 Right eye trauma History of cardiac catheterization (08/01/12) Aspiration thrombectomy, PTCA, stent x2 in overlapping fashion in major diagonal branch. Per Dr. Gresham. Family History Family History Mother Acute myocardial infarction Leukemia Father Colon cancer Sibling Heart problem Social History Social History Social History: Surrogate medical decision maker: Jodee Álvarez, spouse. Code status: Full code. Smoking packs per day: 1 Smoking cigarettes per day: 20.0 Years smoked: 30 Smoking pack-years: 30.00 Smoking status: Former smoker Tobacco type: cigarettes, pipe and cigars Second hand tobacco smoke exposure: Yes Smoking end date: 03/12/94 Additional smoking assessment comments: still smokes a cigar once in while Alcohol intake: current Drinks per week: 2 Alcohol use details: few per week Substance use: never Substance use type: marijuana Other substance usage details: smokes 3 times a week marijuana Last use: 12/25/22 Lack of Transportation: No Lack of Food: Never True Current Housing: I Have Housing Concerned About Future Housing: No Difficulty Paying Gas/Electric Bills: No Difficulty Paying for Meds: No Currently Unemployed: No Education: High School Diploma/GED Difficulty w/ Childcare or Family Care: No Living arrangements: with family Additional living arrangements comments: Spiritual care concerns: No Anes - Eval Final PreProcedure Day of Procedure 02/26/25 06:58 Patient weight: normal Heart: regular rate and rhythm Lungs: clear to auscultation Airway: Mallampati scale class II Neurological: alert and oriented Last oral intake: >/= 8 hours ASA classification: III Emergent: no Anesthetic plan: proceed Anesthesia type and monitoring: general LMA and standard monitoring Results Review: All pre-operative results and documents have been reviewed as part of the pre-operative evaluation. Informed Consent: The patient's anesthetic plan and its attendant risks and benefits were discussed with the patient/family/POA. Questions were solicited and answers provided to the satisfaction of the patient/family/POA.
[2025-02-26] MEDS: LACTATED RINGERS 1,000 ML 30 ML IV CONT (07:10)
[2025-02-26] MEDS: ceFAZolin 2 GM in SODIUM CHLORIDE 0.9% IV 50 ML 100 ML IVPB (07:30)
--- NOTE | 2025-02-26 07:32 | SUR.PREOP ---
Notified MD that pt continued plavix prior to surgery; okay to continue with scheduled surgery.
[2025-02-26] MEDS: LIDOCAINE 2% GEL UROJET 10 ML PKG MUCOUS MEM (07:47)
--- NOTE | 2025-02-26 07:47 | CY_PTH ---
PATIENT: Bhanu Álvarez LOC: [facility] U#:[id number] AGE/SX: 69/M ROOM: RE02/26/[address]: Vlad Gilliam MD : 1955 BED: DIS: 02/26/2025 SPEC #: [id number] RECD: 02/26/25 11:00 STATUS: GAGE RE #: [id number] ADAM: 02/26/25 07:[address]: Vlad Gilliam DEPT: [facility] Cytology RECD BY: Kelley Dozier ENTERED: 02/26/25 11:01 SP TYPE: Cytology OTHR DR: Iker Feldman MD Tissues: A - Urine Procedures: Cytopathology Cytospin
[2025-02-26 07:59] VITALS: BP 100/54; PULSE 67; RESP 14; TEMP 36.1; O2SAT 100
--- NOTE | 2025-02-26 08:09 | W.PM.PROC2 ---
Procedure Note - Detailed Date of Procedure 02/26/25 Pre-op Diagnosis Bladder Ca Post-op Diagnosis Same Procedure Performed Cystoscopy, right retrograde pyelography, right ureteroscopy Surgeon Vlad Gilliam MD Anesthesia MAC Findings No evidence of urothelial carcinoma in the the upper urinary tracts or bladder Description of Procedure Patient is brought to the operative suite was prepped draped in routine sterile fashion while in dorsal lithotomy position. 2% xylocaine jelly was introduced intraurethrally and systemic sedation is administered per the anesthesia department. Cystoscopy was undertaken with a 19 F rigid cystoscope. He has no urethral stricture. Bladder mucosa is normal without hyperemia. There is no sign of recurrent urothelial carcinoma in the bladder. Has a single orthotopic ureteral orifice bilaterally. Urine was collected for cytology. A 0.035 F glidewire was advanced into right renal pelvis and the distal ureter was dilated with an 8 F 10 F dilator. Ureteroscopy was undertaken with a 7.5 F digital flexible ureteral scope. Retrograde pyelogram was obtained to ensure that all calices were examined. S the collecting system, renal pelvis and right ureter could not look more normal. There was absolutely no sign of upper tract urothelial carcinoma. There was no mucosal hyperemia and certainly no papillary lesions. Scopes and wires removed and he was takento the recovery room in good condition. Drains No Packing No Pathology Yes Complications No immediate complications Condition Stable
[2025-02-26 08:15] VITALS: BP 87/44; PULSE 53; RESP 18; O2SAT 100
[2025-02-26 08:30] VITALS: BP 100/58; PULSE 54; RESP 16; O2SAT 98
[2025-02-26 08:38] VITALS: BP 110/89; PULSE 66; RESP 16
[2025-02-26 09:08] VITALS: BP 116/62; PULSE 53; RESP 16
--- NOTE | 2025-02-26 09:20 | SUR.PHASEII ---
0920: patient ready for dc. waiting on ride.
--- NOTE | 2025-02-26 09:28 | SUR.PHASEII ---
0925: Patient ambulated safely with assistance from RN to waiting area. Patient awaiting ride. Refused wheelchair ride and refused to wait for ride in patient room.
== END 2025-02-26 09:25 | disposition home or self-care (01) ==
PROVIDERS: PCP Emergency Medicine; Visit Provider Urology
PROC: (CPT 52352; principal; 2025-02-26 07:30)
DX: C67.8 Malignant neoplasm of overlapping sites of bladder (principal); C65.1 Malignant neoplasm of right renal pelvis; R82.90 Unspecified abnormal findings in urine; F17.290 Nicotine dependence, other tobacco product, uncomplicated
CPT/HCPCS: 52351; 74420; 88108; J0690; C1769; J2405; J2704; J7120; Q9966